=== PATIENT | male | born 1940 | race Caucasian/White ===

== ENCOUNTER → 2016-05-20 | Outpatient (CLI) | payer OTHER ==
[~2016-05-20] MED LIST: ACET-1311 PO; ALLO300T2 PO; ALT5 PO; ASPEC325 PO; EZET10TA63 PO; FEXO1TAB46 PO; FLUT0.0529 NAE; METO1TAB69 PO; NTRGSL/4 UT; PARO1TAB29 PO; PRLSR20 PO; SYN125 PO
--- NOTE | 2016-05-21 14:12 | PULMONARY FUNCTION TEST ---
FEV1/FVC notes obstructive ventilatory dysfunction 54%. FEV1, 52% predicted, notes moderately severe obstructive ventilatory disease. FEV1, bronchodilator testing notes significant reversibility. Total lung capacity within normal limits. Residual volume elevated at 156% notable for hyperinflation. DLCO and DLCO/VA ratio within normal limits. MTDD
== END | disposition home or self-care (01) ==
LOC: C.RC 11:01
PROVIDERS: ATTEND Internal Medicine Pulmonary Disease
DX: J44.9 Chronic obstructive pulmonary disease, unspecified (principal)

== ENCOUNTER → 2016-05-29 | Outpatient (CLI) | payer OTHER ==
--- NOTE | 2016-05-30 06:37 | SPLIT NIGHT TECHNICIAN REPORT ---
[facility] Split Night Polysomnogram - Apartment Maintenance Report Study date: 05/29/2016 Referring Physician: Mary Grace Harris PA-C, PA-C Name: ALEXANDRA LOCKE V Apartment Maintenance: Wendy Mueller [facility]. Date of : 1940 Height: 76 years, Height 5' 11" Sex: Male Weight: 249 lbs Age: 76 BMI: Medications: 34.72 Omeprazole, Jennifer, Allopurinol, Aspirin, Flonase, Nitroglycerin 0.4, Paroxeline, Ramipril, Synthriod, Toprol, Zetia Patient History 76 yr. old male here for a modified split night sleep study with ETC02. Patient is complaining of EDS despite use of CPAP daily. He is currently on a pressure of 6 CmH20. Parameters Monitored NPSG: E1-M2, E2-M1, Fp1-M2, Fp2-M1, F3-M2, F4-M2, F4-M1, C3-M2, C4-M2, C4-M1, O1-M2, O2-M2, O2-M1, T3-M2, T4-M1, P3-M2, P4-M1, CHIN1, CHIN2, HR, EKG, Legs, PFLOW, SNOR, FLOW, CFLOW, Tidal Volume, THOR, ABDO, SpO2, PLTH, CPRESS, ETCO2 Wave, ETCO2, pH SLEEP SUMMARY DATA DIAGNOSTIC TREATMENT Lights Out: 9:27:16 PM 12:35:46 AM Lights On: 12:31:46 AM 5:49:46 AM Total Recording Time (TRT): 184.5 min. 314.0 min. Total Sleep Time (TST): 151.5 min. 309.5 min. NREM Time: 151.5 min. 223.0 min. REM Time: 0.0 min. 86.5 min. Sleep Period Time (SPT): 158.0 min. 312.0 min. Sleep Efficiency (SE): 82 % 99 % Sleep Latency: 26.5 min. 2.0 min. Arousal Index: 18.2 12.4 PAP Treatment Levels: 4, 5, 6, 7, 8, 9, 10 * Optimal Pressure(s) SLEEP STAGING DATA DIAGNOSTIC TREATMENT Duration (min) TST % Duration (min) TST % Stage Wake: 33.0 min. -- 4.5 min. -- WASO: 6.5 min. -- 2.5 min. -- NREM: 151.5 min. 100 % 223.0 min. 72 % Stage N1: 17.0 min. 11 % 16.5 min. 5 % Stage N2: 111.0 min. 73 % 151.0 min. 49 % Stage N3: 23.5 min. 16 % 55.5 min. 18 % REM: 0.0 min. 0 % 86.5 min. 28 % POSITIONAL DATA Event Count Index Event Count Index Supine: 20 20.4 19 15.5 Supine NREM: 20 20.4 7 7.8 Supine REM: N/A N/A 12 31 Non-Supine: 1 0.6 4 0.8 Non-Supine NREM: 1 0.6 2 0.3 Non-Supine REM: N/A N/A 2 1.9 AROUSAL SUMMARY DATA: Event Count Index Event Count Index Apnea Arousals: 3 2.0 0 0.8 Hypopnea Arousals: 8 3.2 6 1.2 Snore Arousals: 18 7.1 17 3.3 PLM Arousals: 7 2.8 28 5.4 Non-Specific Arousals: 4 1.6 5 1.0 Total Arousals: 46 18.2 64 12.4 MYOCLONUS (PLM) Event Count Index Event Count Index PLM: 81 32.1 169 32.8 PLM AROUSAL: 7 2.8 28 5.4 PLM W/O AROUSAL 81 32.1 141 27.3 PLM W/RESP EVENT 1 0.0 3 0.0 MYOCLONUS (PLM) Event Count Index Event Count Index LM: 5 9.5 59 11.4 LM AROUSAL: 5 2.0 6 1.2 LM W/O AROUSAL LM W/RESP EVENT LM NON SPECIFIC 84 33.3 186 36.1 HEART RATE DATA DIAGNOSTIC TREATMENT Sleep (bpm): 54 50 REM (bpm): N/A 94 NREM (bpm): 94 94 Tachycardia Count: 0 0 Tachycardia Duration: 0.00 0 Bradycardia Count: 0 0 Bradycardia Duration: 0.00 0 DIAGNOSTIC PORTION TREATMENT PORTION RESPIRATORY DATA Event Count Index Event Count Index AHI: -- 7.9 -- 4.1 RDI: -- 8.3 -- 4 Obstructive Apnea: 5 2.0 3 0.6 Central Apnea: 0 0.0 1 0.2 Mixed Apnea: 0 0.0 0 0.0 Hypopnea: 15 5.9 17 3.3 RERA: 1 0.4 2 0.4 Total Apneas: 5 2.0 4 0.8 RESPIRATORY DATA REM NREM SLEEP REM NREM SLEEP Supine Position: Obstructive Apneas: N/A 4 4 3 0 3 Central Apneas: N/A 0 0 0 0 0 Mixed Apneas: N/A 0 0 0 0 0 Hypopneas: N/A 15 15 9 6 15 RERA N/A 1 1 0 1 1 Total Supine Events: N/A 20 20 12 7 19 Supine AHI: N/A 20.4 20.4 31 7.8 15.5 Supine RDI: N/A 21.4 21.4 30.6 9.1 16.4 REM NREM SLEEP REM NREM SLEEP Non-Supine Position: Obstructive Apneas: N/A 1 1 0 0 0 Central Apneas: N/A 0 0 0 1 1 Mixed Apneas: N/A 0 0 0 0 0 Hypopneas: N/A 0 0 2 0 2 RERA N/A 0 0 0 1 1 Total Supine Events: N/A 1 1 2 2 4 Supine AHI: N/A 0.6 0.6 1.9 0.3 0.8 Supine RDI: N/A 0.6 0.6 1.9 0.7 1.0 OXYGEN DESTAURATION DATA: Event Count Index Event Count Index REM Desaturations: N/A N/A 12 8.3 NREM Desaturations: 18 7.1 7 1.9 SNORE DATA DIAGNOSTIC TREATMENT Snore Time: 64.0 12:37:46 AM Snore TST%: 15 29 Snore Arousal Count: 18 17 Snore Arousal Index: 7.1 3.3 Desaturation Event Summary: Minimum %SpO2 Event Count Mean/Min/Max Duration(sec.) Desaturation Index % Time In Bed > 90 39 26.6 / 7.3 / 57.5 4.7 99.4 86 - 90 1 16.5 / 16.5 / 16.5 20.4 0.6 81 - 85 0 N/A 0.0 0.0 76 - 80 0 N/A 0.0 0.0 71 - 75 0 N/A 0.0 0.0 66 - 70 0 N/A 0.0 0.0 61 - 65 0 N/A 0.0 0.0 56 - 60 0 N/A 0.0 0.0 51 - 55 0 N/A 0.0 0.0 < 50 0 N/A 0.0 0.0 OXYGEN SATURATION DATA DIAGNOSTIC TREATMENT SpO2 Mean Sleep: 94 % 94 % SpO2 Mean REM: N/A % 94 % SpO2 Mean NREM: 94 % 94 % SpO2 Minimum Sleep: 89 % 87 % SpO2 Minimum REM: N/A % 87 % SpO2 Minimum NREM: 89 % 91 % Time Below 90% (TST): 0.1 1.1 Time Below 88% (TST): 0.0 0.3 Total REM NREM Awake <50% 0.0 min. 0.0 min. 0.0 min. 0.0 min. 51 - 60% 0.0 min. 0.0 min. 0.0 min. 0.0 min. 61 - 70% 0.0 min. 0.0 min. 0.0 min. 0.0 min. 71 - 80% 0.0 min. 0.0 min. 0.0 min. 0.0 min. 81 - 90% 2.9 min. 2.7 min. 0.3 min. 0.0 min. 91 - 100% 494.9 min. 83.9 min. 373.8 min. 37.2 min. Average 94 94 94 95 Minimum SpO2 87 87 89 91 Desaturation Event Index 4.7 8.3 4.0 3.2 # Desat. Events below 89% 3 3 N/A N/A Time(%) with Saturation below 89% 0.1 0.1 0.0 0.0 Time(min.) with Saturation below 89% 0.5 0.5 0.0 0.0 Recording Apartment Maintenance Comments: Mr. Locke slept in the left and supine positions. Cardiac arrhythmia- PVC's and frequebt PLMs noted. No bruxism noted. Snoring was noted and scored as a 4 on a scale of 0 through 5. (0=no snoring, 5=snoring loud enough to be heard through a closed door or down the jha way) At12:35 am ,Mr. Locke met modified Split Night criteria AHI >6 during the diagnostic portion of this study. CPAP was initiated at +4 CMH2O and up-titrated to an optimal level of +10 CMH2O Cflex 2,. A medium Brown and Paykel Simplus, was used during titration. Mr. Locke did not wake to use the restroom during the night . The final report will be interpreted and signed by a sleep physician. The completed physician report will then be placed in the patient medical record. Therapy Event: Therapy (cm H20) 0 4 5 6 7 8 9 10 Total Time at Pressure (min.) 184.5 18.5 98.3 6.5 46.6 105.4 21.6 17.0 TST at Pressure (min.) 151.5 16.5 97.3 6.5 45.6 104.9 21.6 17.0 # Periods 1 1 1 1 1 1 1 1 Sleep Onset (min.) 26.5 2.0 0.0 0.0 0.0 0.0 0.0 0.0 REM Onset (min.) N/A N/A 77.5 0.1 0.0 0.0 N/A N/A Sleep Efficiency % 82 89 99 100 97 99 100 100 Wakefulness (%) 17.9 10.8 1.0 0.0 2.1 0.5 0.0 0.0 Wakefulness (min.) 33.0 2.0 1.0 0.0 1.0 0.5 0.0 0.0 NREM 1 (%) 9.2 16.2 2.9 2.1 7.5 2.8 9.3 11.7 NREM 1 (min.) 17.0 3.0 2.9 0.1 3.5 3.0 2.0 2.0 NREM 2 (%) 60.2 72.9 64.6 0.0 0.0 37.3 90.7 88.3 NREM 2 (min.) 111.0 13.5 63.5 0.0 0.0 39.4 19.6 15.0 NREM 3 (%) 12.7 0.1 11.2 0.0 0.0 42.2 0.0 0.0 NREM 3 (min.) 23.5 0.0 11.0 0.0 0.0 44.5 0.0 0.0 REM (%) 0.0 0.0 20.3 97.9 90.3 17.1 0.0 0.0 REM (min.) 0.0 0.0 20.0 6.4 42.1 18.1 0.0 0.0 # Arousals 46 1 12 3 8 14 15 11 Arousal Index 18.2 3.6 7.4 27.5 10.5 8.0 41.7 38.7 # Snore 1,616 181 1,243 57 430 301 121 54 Snore Index 640.0 657.4 766.2 523.4 566.4 172.1 336.1 190.2 AHI 7.9 0.0 1.2 45.9 10.5 1.7 8.3 0.0 AHI Supine 20.4 N/A N/A 46.3 26.9 17.5 8.3 0.0 AHI Non-Supine 0.6 0.0 1.2 0.0 0.0 0.6 N/A 0.0 NREM AHI 7.9 0.0 0.0 0.0 17.1 2.1 8.3 0.0 REM AHI N/A N/A 6.0 46.9 10.0 0.0 N/A N/A RDI 8.3 0.0 1.2 45.9 11.9 1.7 11.1 0.0 # Obstructive 5 0 0 1 2 0 0 0 # Central Ap 0 0 0 0 0 1 0 0 # Mixed 0 0 0 0 0 0 0 0 # Hypopneas 15 0 2 4 6 2 3 0 RERAS 1 0 0 0 1 0 1 0 Total Respiratory Events 21 0 2 5 9 3 4 0 Time Below SpO2 89.00% (min.) 0.0 0.0 0.2 0.3 0.0 0.0 0.0 0.0 Mean NREM SpO2 (%) 94 93 94 96 95 94 94 95 Mean REM SpO2 (%) N/A N/A 93 93 94 96 N/A N/A Mean Sleep SpO2 (%) 94 93 94 93 94 94 94 95 Min NREM SpO2 (%) 89 92 91 96 92 91 91 92 Min REM SpO2 (%) N/A N/A 87 87 89 93 N/A N/A Position Supine (min.) 56.0 0.0 0.0 6.5 17.9 6.9 21.6 16.7 Position Non-supine (min.) 95.5 16.5 97.3 0.0 27.7 98.1 0.0 0.3 LM Index Sleep 41.6 0.0 54.2 36.7 31.6 41.2 63.9 59.9 LM Index NREM 41.6 0.0 61.3 0.0 34.3 45.6 63.9 59.9 LM Index REM N/A N/A 27.0 37.5 31.4 19.9 N/A N/A Mean Heart Rate (bpm) 54 51 51 49 48 50 48 48 Min Heart Rate (bpm) 47 50 43 47 43 45 45 45
--- NOTE | 2016-06-02 16:59 | POLYSOMNOGRAPH REPORT ---
CLINICAL DATA: 76-year-old male with BMI of 34.7 referred by Mary Grace Harris PA-C and Dr. Perdue for a modified split night study. He is on CPAP 6 cm of water pressure and is still having daytime sleepiness despite using his CPAP. SLEEP ARCHITECTURE: For the diagnostic portion of the study, total sleep period was 158 minutes. Total sleep time was 151.5 minutes, all non-REM sleep. Sleep latency was delayed at 26.5 minutes. Sleep efficiency was 82%. Arousal index was 18.2. Sleep consisted of stage N1 11%, N2 73%, N3 16%. For the treatment portion of this study, total sleep period was 312 minutes. Total sleep time was 309.5 minutes divided between 220 minutes of non-REM sleep and 87.5 minutes of REM sleep. Sleep latency was 2 minutes. Arousal index was 12.4. Sleep consisted of stage N1 5%, N2 49%, N3 18%, REM 28%. AROUSAL DATA: Prior to treatment, 46 arousals were recorded for an index of 18.2 per hour. Following treatment, 64 arousals were recorded for an index of 12.4 per hour. PLM DATA: Prior to treatment, 84 limb movements during sleep were noted for an index of 33.3 per hour. During treatment, 186 limb movements during sleep were noted for an index of 36.1 per hour. EKG: Heart rates ranged from 50-94 beats per minute. PVCs were noted. RESPIRATORY DATA: Prior to treatment, mild sleep apnea was documented. The AHI was 7.9. The RDI was 8.3. There were 5 obstructive apneic episodes and 15 hypopneic episodes. Following treatment, the mean AHI was 4.1. OXIMETRY DATA: Mild nocturnal hypoxemia was seen. Oxygen melissa was 87%. Mean saturation after treatment was 94%. PATIENT CARE ASSISTANT'S COMMENTS AND TREATMENT SUMMARY: The patient slept in the left and supine positions. Snoring was severe, rated 4 on a scale of 1-5. At 12:35 a.m. the patient met modified split night criteria. CPAP was started using a medium Brown & Intappkel Simplus mask. The patient was titrated up to his final pressure setting of 10 cm of water pressure, C-Flex setting #2. At his final pressure setting, he slept for 17 minutes with an AHI of 0. IMPRESSION: Obstructive sleep apnea/hypopnea corrected with CPAP 10 cm water pressure, C-Flex setting #2, Brown & Payeligio medium Simplus mask. RECOMMENDATIONS: The patient's CPAP should be increased to 10 cm of water pressure, C-Flex setting #2. He should be provided with the above noted face mask. He should be seen back in followup within 90 days to document efficacy and compliance. ADELA
== END | disposition home or self-care (01) ==
LOC: C.NEUR 20:00
PROVIDERS: ATTEND Internal Medicine Pulmonary Disease
DX: G47.33 Obstructive sleep apnea (adult) (pediatric) (principal)

== ENCOUNTER 2017-07-01 18:53 | Inpatient (IN) | payer OTHER ==
[~2017-07-01] VITALS: Ht 180.3 cm; Wt 111.4 kg
[~2017-07-01 18:53] MED LIST changes: +METO100T44 PO; -METO1TAB69 PO
[2017-07-01] MEDS ORDERED: SODIUM CHLORIDE 0.9% 1000ML 1,000 ML IV ONE (19:15)
--- NOTE | 2017-07-01 19:29 | EMERGENCY ROOM VISIT NOTE ---
History First contact with patient: 19:01 Chief Complaint: CARDIAC ASSESSMENT Stated Complaint: HEART PROBLEMS, DIZZINESS, History of Present Illness The patient is a 77 year old male who presents to the Emergency Room with complaints of syncopal episodes that have been going on for the last several months. Patient has brief episodes of shortness of breath where he also blacks out for a few seconds. He denies any headache or pain in his chest. He denies any lightheaded sensation. Patient has been wearing a Holter monitor for the last 3 weeks. He was told that he needs a pacemaker, and is scheduled to see a pesticide chemist next week. He became concerned today because he had 3 episodes within the last several hours. The patient has a history of coronary artery disease status post CABG. Review of Systems 10 system review performed and negative unless noted in HPI or below Past Medical/Surgical History Medical Problems: (1) History of hypertension (2) History of pneumonia (3) Symptomatic bradycardia Throat cancer Coronary artery disease Status post CABG Family History Cancer Heart disease Hypertension Lung disease Social History Smoking Status: Former Smoker Alcohol Use: occasionally Drug Use: none Marital Status: Housing Status: lives with significant other Occupation Status: unemployed Current/Historical Medications Scheduled Acetaminophen (Tylenol), 325 MG PO DIRECTED Allopurinol (Zyloprim), 300 MG PO HS Aspirin Enteric Coated (Ecotrin Or Generic), 81 MG PO DAILY Ezetimibe (Zetia), 10 MG PO HS Fexofenadine Hcl (Jennifer), 180 MG PO PRN Levothyroxine Sodium (Synthroid), 125 MCG PO DAILY Metoprolol Succ (Toprol Xl) (Toprol-Xl), 12.5 MG PO BID Nitroglycerin (Nitrostat), 0.4 MG UT PRN Omeprazole (Prilosec), 20 MG PO BID Paroxetine HCl (Paroxetine), 20 MG PO QAM Ramipril (Ramipril), 10 MG PO HS Scheduled PRN Fluticasone Propionate (Nasal) (Flonase Allergy Relief), 2 SPRAYS MARILYN DAILY PRN for CONGESTION Physical Exam Vital Signs Date Time Temp Pulse Resp B/P (MAP) Pulse Ox O2 Delivery O2 Flow Rate FiO2 07/01/17 21:05 58 20 97 07/01/17 21:01 190/80 07/01/17 20:35 59 20 97 07/01/17 20:31 170/78 07/01/17 20:05 62 21 97 07/01/17 20:00 64 20 171/77 97 Room Air 07/01/17 19:56 168/79 07/01/17 19:32 65 07/01/17 19:30 62 22 97 07/01/17 19:16 147/79 07/01/17 19:12 97 Room Air 07/01/17 19:12 97 Room Air 07/01/17 18:55 36.8 63 20 137/64 98 Room Air Physical Exam GENERAL: 77-year-old male, in no acute distress, nondiaphoretic, SKIN: The skin was without rashes, erythema, edema, or bruising. HEAD: Normocephalic atraumatic. MOUTH: Mucous membranes moist. NECK: Bilateral carotid bruit noted HEART: Bradycardic, irregular, systolic murmur heard best at the upper sternal border LUNGS: Clear to auscultation bilaterally without wheezes, rales or rhonchi. No accessory muscle use. ABDOMEN: Positive bowel sounds x 4.Soft, nontender, without organomegaly. No guarding or rebound tenderness. MUSCULOSKELETAL: No muscle atrophy, erythema, or edema noted. Strength 5/5 throughout. NEURO: Patient was alert and oriented to person place and time. Normal sensation to touch. No focal neurological deficits. Medical Decision & Procedures ER Provider Diagnostic Interpretation: cxr IMPRESSION: No acute cardiopulmonary abnormality. Electronically signed by: Joby Mccloud M.D. 07/01/2017 8:29 PM Dictated Date/Time: 07/01/2017 8:27 PM The status of this report is Signed. Draft = Not yet reviewed or approved by Radiologist. Signed = Reviewed and approved by Radiologist. <AttendingPhy></AttendingPhy> <FamilyPhy>David Giodrano D.O.</FamilyPhy> < PrimaryPhy>David Giordano D.O.</PrimaryPhy> <UnitNumber>[id number]</UnitNumber > <VisitNumber>[id number]</VisitNumber> <PatientName>ALEXANDRA PETERS V</ PatientName> <DateOfBirth>1940</DateOfBirth> <[facility]Location> < ServiceDate>07/01/17</ServiceDate> <MNE>ESINDI</MNE> <OrderingPhy>Tootie Alvarez PA-C</OrderingPhy> <OrderingPhyMNE>f rep ord dr shen</OrderingPhyMNE> < DictatingPhyMNE>f rep dict dr shen</DictatingPhyMNE> <CCListMNE>f rep ct mne</ CCListMNE> <AdmittingPhyMNE>f pt admit dr shen</AdmittingPhyMNE> <AttendingPhyMNE >f pt attend dr shen</AttendingPhyMNE> ct head w/o contrast IMPRESSION: There is no hemorrhage, mass effect, or evidence of acute territorial ischemia by CT criteria. Electronically signed by: Joby Mccloud M.D. 07/01/2017 8:00 PM Dictated Date/Time: 07/01/2017 7:58 PM The status of this report is Signed. Draft = Not yet reviewed or approved by Radiologist. Signed = Reviewed and approved by Radiologist. <AttendingPhy></AttendingPhy> <FamilyPhy>David Giordano D.O.</FamilyPhy> < PrimaryPhy>David Giordano D.O.</PrimaryPhy> <UnitNumber>[id number]</UnitNumber > <VisitNumber>[id number]</VisitNumber> <PatientName>ALEXANDRA PETERS V</ PatientName> <DateOfBirth>1940</DateOfBirth> <[facility]Location> < ServiceDate>07/01/17</ServiceDate> <MNE>ESINDI</MNE> <OrderingPhy>Tootie Alvarez PA-C</OrderingPhy> <OrderingPhyMNE>f rep ord dr shen</OrderingPhyMNE> < DictatingPhyMNE>f rep dict dr shen</DictatingPhyMNE> <CCListMNE>f rep ct mne</ CCListMNE> <AdmittingPhyMNE>f pt admit dr shen</AdmittingPhyMNE> <AttendingPhyMNE >f pt attend dr shen</AttendingPhyMNE> Laboratory Results 07/01/17 19:35 Red Blood Count 4.07, Mean Corpuscular Volume 95.1, Mean Corpuscular Hemoglobin 32.4, Mean Corpuscular Hemoglobin Concent 34.1, Mean Platelet Volume 9.5, Neutrophils (%) (Auto) 54.5, Lymphocytes (%) (Auto) 24.5, Monocytes (%) (Auto) 9.5, Eosinophils (%) (Auto) 10.6, Basophils (%) (Auto) 0.7, Neutrophils # (Auto ) 4.46, Lymphocytes # (Auto) 2.01, Monocytes # (Auto) 0.78, Eosinophils # (Auto ) 0.87, Basophils # (Auto) 0.06 07/01/17 19:35 Test 07/01/17 19:35 White Blood Count 8.20 K/uL (4.8-10.8) Red Blood Count 4.07 M/uL (4.7-6.1) Hemoglobin 13.2 g/dL (14.0-18.0) Hematocrit 38.7 % (42-52) Mean Corpuscular Volume 95.1 fL (80-100) Mean Corpuscular Hemoglobin 32.4 pg (25-34) Mean Corpuscular Hemoglobin Concent 34.1 g/dl (32-36) Platelet Count 287 K/uL (130-400) Mean Platelet Volume 9.5 fL (7.4-10.4) Neutrophils (%) (Auto) 54.5 % Lymphocytes (%) (Auto) 24.5 % Monocytes (%) (Auto) 9.5 % Eosinophils (%) (Auto) 10.6 % Basophils (%) (Auto) 0.7 % Neutrophils # (Auto) 4.46 K/uL (1.4-6.5) Lymphocytes # (Auto) 2.01 K/uL (1.2-3.4) Monocytes # (Auto) 0.78 K/uL (0.11-0.59) Eosinophils # (Auto) 0.87 K/uL (0-0.5) Basophils # (Auto) 0.06 K/uL (0-0.2) RDW Standard Deviation 50.3 fL (36.4-46.3) RDW Coefficient of Variation 14.5 % (11.5-14.5) Immature Granulocyte % (Auto) 0.2 % Immature Granulocyte # (Auto) 0.02 K/uL (0.00-0.02) Prothrombin Time 10.3 SECONDS (9.0-12.0) Prothromb Time International Ratio 1.0 (0.9-1.1) Activated Partial Thromboplast Time 27.9 SECONDS (21.0-31.0) Partial Thromboplastin Ratio 1.1 Anion Gap 7.0 mmol/L (3-11) Est Creatinine Clear Calc Drug Dose 67.5 ml/min Estimated GFR () 70.3 Estimated GFR (Non- 60.6 BUN/Creatinine Ratio 17.6 (10-20) Calcium Level 8.6 mg/dl (8.5-10.1) Magnesium Level 2.2 mg/dl (1.8-2.4) Total Bilirubin 0.2 mg/dl (0.2-1) Aspartate Amino Transf (AST/SGOT) 25 U/L (15-37) Alanine Aminotransferase (ALT/SGPT) 31 U/L (12-78) Alkaline Phosphatase 85 U/L (45-117) Total Creatine Kinase 76 U/L (39-308) Creatine Kinase MB 1.1 ng/ml (0.5-3.6) Creatine Kinase MB Ratio 1.4 (0-3.0) Troponin I < 0.015 ng/ml (0-0.045) Total Protein 7.5 gm/dl (6.4-8.2) Albumin 3.6 gm/dl (3.4-5.0) Globulin 3.9 gm/dl (2.5-4.0) Albumin/Globulin Ratio 0.9 (0.9-2) Thyroid Stimulating Hormone (TSH) 0.570 uIu/ml (0.300-4.500) Medications Administered Medications (Trade) Dose Ordered Sig/Chuck Route Start Time Stop Time Status Last Admin Dose Admin Sodium Chloride 1,000 ml @ 150 mls/hr Q6H40M ONCE IV 07/01/17 19:15 07/02/17 01:54 07/01/17 19:47 150 MLS/HR ECG Per My Interpretation Indication: syncope Rate (beats per minute): 65 Rhythm: sinus bradycardia ED Course Patient was seen and examined Vital signs including blood pressure were reviewed medications list was verified with patient Labs were obtained, and a saline lock was established The patient was put on a monitor He was hydrated with normal saline at 150 cc/h The patient was also seen and examined by my supervising physician who is in agreement with my plan The patient was reassessed as he was noted to have a pause on the monitor. He was asymptomatic. The case [facility] with [facility] the patient for further workup and treatment Medical Decision Differential diagnosis: Cardiogenic syncope, neurogenic syncope, dehydration, infectious etiology This patient is a 77-year-old male presents to the emergency department with frequent syncopal episodes lasting a few seconds particularly today. On exam, his heart rate was slow and irregular. He knows that he needs a pacemaker, and is scheduled to see a pesticide chemist next week. His EKG shows sinus bradycardia with PVCs. The patient's troponin is negative. No significant electrolyte abnormalities. Chest x-ray and CT of the head with no acute findings. I believe the etiology of his symptoms is likely due to an arrhythmia. The patient had an approximately 3 second pause on the monitor. [facility] agreed to admit the patient for further workup and treatment. This chart was completed in part utilizing [employer] Speech Voice Recognition software. Attempts were made to minimize the grammatical errors, random word insertions, pronoun errors and incomplete sentences. Any formal questions or concerns about the content, text or information contained within the body of this dictation should be directly addressed to the provider for clarification. Medication Reconcilliation Current Medication List: was personally reviewed by me Blood Pressure Screening Patient's blood pressure: Elevated blood pressure Blood pressure disposition: Did not require urgent referral Impression Primary Impression: Syncope Departure Information Referrals David Giordano D.O. (PCP) Patient Instructions My [facility]
[2017-07-01 19:54] LABS: BASO % 0.7 %; BASO ABS # 0.06 K/uL (0-0.2); EOS % 10.6 %; EOS ABS # 0.87 K/uL (0-0.5); HEMATOCRIT 38.7 % (42-52); HEMOGLOBIN 13.2 g/dL (14.0-18.0); IG# 0.02 K/uL (0.00-0.02); LYMPH % 24.5 %; LYMPH ABS # 2.01 K/uL (1.2-3.4); MEAN CELL VOLUME 95.1 fL (80-100); MEAN CORPUSCULAR HEMOGLOBIN 32.4 pg (25-34); MEAN CORPUSCULAR HGB CONC 34.1 g/dl (32-36); MEAN PLATELET VOLUME 9.5 fL (7.4-10.4); MONO % 9.5 %; MONO ABS # 0.78 K/uL (0.11-0.59); NEUT % 54.5 %; NEUT ABS # 4.46 K/uL (1.4-6.5); PLATELET COUNT 287 K/uL (130-400); RED CELL DISTRIBUTION WIDTH CV 14.5 % (11.5-14.5); RED CELL DISTRIBUTION WIDTH SD 50.3 fL (36.4-46.3)
--- NOTE | 2017-07-01 20:02 | DIAGNOSTIC IMAGING REPORT ---
CT SCAN OF THE BRAIN WITHOUT IV CONTRAST CLINICAL HISTORY: Syncope. Dizziness. COMPARISON STUDY: No priors. TECHNIQUE: Unenhanced axial CT scan of the brain is performed from the vertex to the skull base. A dose lowering technique was utilized adhering to the principles of ALARA. CT DOSE: 614.27 mGy.cm FINDINGS: Brain parenchyma: There are age-related involutional changes noting mild subcortical and periventricular microangiopathic change. There is no hemorrhage, mass effect, or evidence of acute territorial ischemia by CT criteria. Conrad-white matter is preserved. No extra-axial fluid collection is seen. Ventricles, sulci, cisterns: Prominent secondary to involutional change. Intracranial vasculature: There is atherosclerotic calcification of the cavernous carotid arteries. Calvarium: Unremarkable. Sinuses and mastoids: Mild mucosal thickening is seen within the sphenoid sinuses. The remaining visualized paranasal sinuses are clear. There is a right mastoid effusion. The left mastoid air cells are well pneumatized. Orbits: The bony orbits are grossly intact. There are bilateral ocular lens implants. IMPRESSION: There is no hemorrhage, mass effect, or evidence of acute territorial ischemia by CT criteria. Electronically signed by: Joby Mccloud M.D. 07/01/2017 8:00 PM Dictated Date/Time: 07/01/2017 7:58 PM
[2017-07-01 20:05] LABS: PTT PATIENT 27.9 SECONDS (21.0-31.0)
[2017-07-01 20:12] LABS: ALBUMIN 3.6 gm/dl (3.4-5.0); ALT/SGPT 31 U/L (12-78); BLOOD UREA NITROGEN 20 mg/dl (7-18); CALCIUM 8.6 mg/dl (8.5-10.1); CARBON DIOXIDE 25 mmol/L (21-32); CREATININE 1.15 mg/dl (0.60-1.40); GLUCOSE 73 mg/dl (70-99); POTASSIUM 4.4 mmol/L (3.5-5.1); SODIUM 136 mmol/L (136-145)
[2017-07-01 20:22] LABS: ALKALINE PHOSPHATASE 85 U/L (45-117); AST/SGOT 25 U/L (15-37); CKMB 1.1 ng/ml (0.5-3.6); TOTAL PROTEIN 7.5 gm/dl (6.4-8.2)
--- NOTE | 2017-07-01 20:30 | DIAGNOSTIC IMAGING REPORT ---
SINGLE VIEW CHEST CLINICAL HISTORY: Syncope. FINDINGS: An AP, portable, upright chest radiograph is compared to study dated 03/27/2016 and correlated with chest CT dated 03/28/2016. The examination is degraded by portable technique and apical lordotic positioning. The patient is status post midline sternotomy. The heart is top normal for projection and there is atherosclerotic calcification of the thoracic aorta. The pulmonary vasculature is noncongested. Chronic interstitial thickening is similar to previous. A calcified granuloma is again seen in the right lower lung. There is no airspace consolidation or large pleural effusion. No pneumothorax is seen. The skeletal structures are osteopenic. The bony thorax is grossly intact. IMPRESSION: No acute cardiopulmonary abnormality. Electronically signed by: Joby Mccloud M.D. 07/01/2017 8:29 PM Dictated Date/Time: 07/01/2017 8:27 PM
[2017-07-01] MEDS ORDERED: FLUT0.15 NAE (21:13)
[2017-07-01] MEDS ORDERED: ASPI81TA21 PO (21:13)
[2017-07-01] MEDS ORDERED: METO25TA3 PO (21:13)
[2017-07-01] MEDS ORDERED: PARO20TA3 PO (21:13)
[2017-07-01] MEDS ORDERED: RAMI10CA PO (21:13)
[2017-07-01] MEDS ORDERED: LEVO125T72 PO (21:13)
[2017-07-01] MEDS ORDERED: ONDANSETRON INJ 2 MG/ML 2 ML VIAL IV PRN (22:00)
[2017-07-01] MEDS ORDERED: ACETAMINOPHEN 325 MG TAB PO PRN (22:00)
[2017-07-01] MEDS ORDERED: FEXO1TAB49 PO (22:04)
[2017-07-01] MEDS ORDERED: IPRASOL4 INH (22:04)
[2017-07-01 22:34] VITALS: BP 174/79; PULSE 60; TEMP 37.2; O2SAT 96; Ht 180.3 cm; Wt 111.4 kg
--- NOTE | 2017-07-01 22:57 | History and Physical ---
History & Physical Date & Time of Service: Jul 01, 2017 ~ 21:30 Chief Complaint: Lightheaded, Dizzy, Passed Out Primary Care Physician: David Giordano D.O. History of Present Illness 77 tear old male who presents to the ED with lightheadedness, dizziness, and syncopal events x 2 today. Patient reports he has been having these episodes for the past year. 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 Patient is scheduled to see EP next week. Today he had two syncopal events at home which he reports is the most he has had in one day. He reports he frequently will feel lightheaded and dizzy and sometimes will pass out for a few seconds. He has never fallen to the floor. He denies chest pain, palpitations, and shortness of breath. No diaphoresis or nausea. He denies fever and chills. No abdominal pain, vomiting, or diarrhea. He denies urinary symptoms. In the ED, patient had sinus bradycardia and did have one pause however he was asymptomatic. BP is stable. Labs are unremarkable. Past Medical/Surgical History Medical Problems: (1) CAD (coronary artery disease) Permanent Comment: 1995 - CABG x 2 Status: Chronic (2) COPD (chronic obstructive pulmonary disease) Status: Chronic (3) Dyslipidemia Status: Chronic (4) GERD (gastroesophageal reflux disease) Status: Chronic (5) Gout Status: Chronic (6) HTN (hypertension) Status: Chronic (7) Hypothyroidism Status: Chronic (8) Laryngeal cancer Permanent Comment: s/p radiation ~ 30 years ago Status: Chronic (9) JAIME on CPAP Status: Chronic Surgical Problems: (1) H/O repair of right rotator cuff Status: Chronic (2) History of cataract surgery Status: Chronic Family History non contributory due to patient's advanced age Social History Smoking Status: Former Smoker Alcohol Use: occasionally Marital Status: Housing status: lives with family Immunizations History of Influenza Vaccine: Yes Influenza Vaccine Date: Mar 06, 2017 History of Tetanus Vaccine?: Yes Tetanus Immunization Date: Dec 25, 2014 History of Pneumococcal: Yes Pneumococcal Date: Apr 25, 2016 Allergies Coded Allergies: Atorvastatin (Unverified Adverse Reaction, Unknown, stiffness, 07/01/17) Yellow Dye (Verified Adverse Reaction, Unknown, vomitiing, 07/01/17) Home Medications Scheduled Acetaminophen (Tylenol), 325 MG PO DIRECTED Allopurinol (Zyloprim), 300 MG PO HS Aspirin Enteric Coated (Ecotrin Or Generic), 81 MG PO DAILY Ezetimibe (Zetia), 10 MG PO HS Levothyroxine Sodium (Synthroid), 125 MCG PO DAILY Metoprolol Succ (Toprol Xl) (Toprol-Xl), 12.5 MG PO HS Nitroglycerin (Nitrostat), 0.4 MG UT PRN Omeprazole (Prilosec), 20 MG PO BID Paroxetine HCl (Paroxetine), 20 MG PO QAM Ramipril (Ramipril), 10 MG PO HS Scheduled PRN Fexofenadine Hcl (Jennifer Allergy), 1 TAB PO DAILY PRN for Allergic Reaction Fluticasone Propionate (Nasal) (Flonase Allergy Relief), 2 SPRAYS MARILYN DAILY PRN for CONGESTION Ipratropium-Albuterol (Duoneb), 1 TREATMENT INH Q4H PRN for SOB/Wheezing Review of Systems ROS per HPI, all other systems reviewed and negative Physical Exam Vital Signs Date Time Temp Pulse Resp B/P (MAP) Pulse Ox O2 Delivery O2 Flow Rate FiO2 07/01/17 22:19 83 18 169/60 96 07/01/17 21:05 58 20 97 07/01/17 21:01 190/80 07/01/17 20:35 59 20 97 07/01/17 20:31 170/78 07/01/17 20:05 62 21 97 07/01/17 20:00 64 20 171/77 97 Room Air 07/01/17 19:56 168/79 07/01/17 19:32 65 07/01/17 19:30 62 22 97 07/01/17 19:16 147/79 07/01/17 19:12 97 Room Air 07/01/17 19:12 97 Room Air 07/01/17 18:55 36.8 63 20 137/64 98 Room Air General Appearance: WD/WN, no apparent distress Head: normocephalic, atraumatic Eyes: normal inspection, EOMI, sclerae normal ENT: hearing grossly normal, + muffled/hoarse voice (chronic), + pertinent finding (mucous membranes moist) Neck: supple, no JVD, trachea midline Respiratory/Chest: lungs clear, normal breath sounds, no respiratory distress Cardiovascular: regular rate, rhythm, no edema, normal peripheral pulses Abdomen/GI: normal bowel sounds, non tender, soft, no organomegaly Extremities/Musculoskelatal: normal inspection, no calf tenderness, normal capillary refill Neurologic/Psych: no motor/sensory deficits, alert, normal mood/affect, oriented x 3 Skin: normal color, warm/dry Diagnostics Laboratory Results Results Past 24 Hours Test 07/01/17 19:35 Range/Units White Blood Count 8.20 4.8-10.8 K/uL Red Blood Count 4.07 4.7-6.1 M/uL Hemoglobin 13.2 14.0-18.0 g/dL Hematocrit 38.7 42-52 % Mean Corpuscular Volume 95.1 80-100 fL Mean Corpuscular Hemoglobin 32.4 25-34 pg Mean Corpuscular Hemoglobin Concent 34.1 32-36 g/dl Platelet Count 287 130-400 K/uL Mean Platelet Volume 9.5 7.4-10.4 fL Neutrophils (%) (Auto) 54.5 % Lymphocytes (%) (Auto) 24.5 % Monocytes (%) (Auto) 9.5 % Eosinophils (%) (Auto) 10.6 % Basophils (%) (Auto) 0.7 % Neutrophils # (Auto) 4.46 1.4-6.5 K/uL Lymphocytes # (Auto) 2.01 1.2-3.4 K/uL Monocytes # (Auto) 0.78 0.11-0.59 K/uL Eosinophils # (Auto) 0.87 0-0.5 K/uL Basophils # (Auto) 0.06 0-0.2 K/uL RDW Standard Deviation 50.3 36.4-46.3 fL RDW Coefficient of Variation 14.5 11.5-14.5 % Immature Granulocyte % (Auto) 0.2 % Immature Granulocyte # (Auto) 0.02 0.00-0.02 K/uL Prothrombin Time 10.3 9.0-12.0 SECONDS Prothromb Time International Ratio 1.0 0.9-1.1 Activated Partial Thromboplast Time 27.9 21.0-31.0 SECONDS Partial Thromboplastin Ratio 1.1 Sodium Level 136 136-145 mmol/L Potassium Level 4.4 3.5-5.1 mmol/L Chloride Level 104 98-107 mmol/L Carbon Dioxide Level 25 21-32 mmol/L Anion Gap 7.0 3-11 mmol/L Blood Urea Nitrogen 20 7-18 mg/dl Creatinine 1.15 0.60-1.40 mg/dl Est Creatinine Clear Calc Drug Dose 67.5 ml/min Estimated GFR () 70.3 Estimated GFR (Non- 60.6 BUN/Creatinine Ratio 17.6 10-20 Random Glucose 73 70-99 mg/dl Calcium Level 8.6 8.5-10.1 mg/dl Magnesium Level 2.2 1.8-2.4 mg/dl Total Bilirubin 0.2 0.2-1 mg/dl Aspartate Amino Transf (AST/SGOT) 25 15-37 U/L Alanine Aminotransferase (ALT/SGPT) 31 12-78 U/L Alkaline Phosphatase 85 45-117 U/L Total Creatine Kinase 76 39-308 U/L Creatine Kinase MB 1.1 0.5-3.6 ng/ml Creatine Kinase MB Ratio 1.4 0-3.0 Troponin I < 0.015 0-0.045 ng/ml Total Protein 7.5 6.4-8.2 gm/dl Albumin 3.6 3.4-5.0 gm/dl Globulin 3.9 2.5-4.0 gm/dl Albumin/Globulin Ratio 0.9 0.9-2 Thyroid Stimulating Hormone (TSH) 0.570 0.300-4.500 uIu/ml Diagnostic Radiology HEAD CT IMPRESSION: There is no hemorrhage, mass effect, or evidence of acute territorial ischemia by CT criteria. CXR IMPRESSION: No acute cardiopulmonary abnormality. Impression Assessment and Plan SYMPTOMATIC BRADYCARDIA - admit to tele - patient presenting with lightheadedness, dizziness, and syncope x 2 - has had a work up as an outpatient 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 - EKG shows sinus bradycardia with PVC; did have one pause however was asymptomatic - will place pacer pads empirically - labs unremarkable, BP stable - hold beta liliana - NPO after midnight for likely pacemaker - case discussed with Dr. Jerry HX CAD - stable, no reports of chest pain - continue ASA and Zetia - holding beta liliana due to bradycardia / pauses HTN - BP elevated however did not have Ramipril yet - will give home dose of Ramipril and reassess - holding metoprolol as above HYPOTHYROIDISM - TSH WNL - continue levothyroxine GERD - continue PPI JAIME - CPAP as per home settings DVT PROPHYLAXIS - SCDs in light of likely invasive procedure tomorrow DISPO - In my clinical judgment this beneficiary meets acute admission criteria, established by [facility], that includes being hospitalized through two midnights. ADDENDUM: I have seen and examined the patient above and discussed with the provider above. I agree with the assessment and plan as stated. Kyle, DO Resuscitation Status VTE Prophylaxis Will order VTE Prophylaxis: Yes
[2017-07-02] VITALS (10 sets, daily range): BP systolic 117–151; BP diastolic 45–79; PULSE 46–72; TEMP 36.5–37.2; O2SAT 92–97
[2017-07-02] MEDS ORDERED: ENALAPRIL MALEATE 10 MG TAB PO ONE (00:32)
[2017-07-02] MEDS: LEVOTHYROXINE 125 MCG TAB PO SCH ×2 (05:48→05:51)
[2017-07-02 06:54] LABS: HEMATOCRIT 36.5 % (42-52); HEMOGLOBIN 12.1 g/dL (14.0-18.0); MEAN CELL VOLUME 95.5 fL (80-100); MEAN CORPUSCULAR HEMOGLOBIN 31.7 pg (25-34); MEAN CORPUSCULAR HGB CONC 33.2 g/dl (32-36); MEAN PLATELET VOLUME 9.4 fL (7.4-10.4); PLATELET COUNT 258 K/uL (130-400); RED CELL DISTRIBUTION WIDTH CV 14.7 % (11.5-14.5); RED CELL DISTRIBUTION WIDTH SD 51.2 fL (36.4-46.3)
[2017-07-02 07:33] LABS: CALCIUM 8.6 mg/dl (8.5-10.1); CREATININE 1.1 mg/dl (0.60-1.40); POTASSIUM 4.5 mmol/L (3.5-5.1)
[2017-07-02] MEDS: PAROXETINE 20 MG TAB PO SCH (09:00)
[2017-07-02] MEDS: PANTOprazole SOD 40 MG TAB PO SCH ×2 (09:00→19:27)
[2017-07-02] MEDS: ASPIRIN 81 MG ECTAB PO SCH (09:00)
--- NOTE | 2017-07-02 09:26 | Cardiology Consultation ---
Cardiology Consultation Date of Consultation: Jul 02, 2017. Requesting Physician: Dr. Jerry Reason for Consultation: Sinus arrest with syncope Pt evaluation today including: conversation w/ patient, conversation w/ family , physical exam History of Present Illness This is a very pleasant 77-year-old gentleman who has a history of coronary disease including bypass surgery in 1995 in [place]. Following his bypass surgery he had a stress echo in 2008 with no evidence of ischemia, he had an echocardiogram 2011 showing normal left ventricular function with left ventricular hypertrophy. He also has a history of hypertension, hyperlipidemia and laryngeal cancer although he can speak with a hoarse voice. He has hypothyroidism and sleep apnea. He has been having syncopal episodes for several months as well as brief episodes of shortness of breath. The shortness of breath and the syncope seem to occur at the same time. He wore a event recorder and had bradycardia observed and was scheduled to see a [facility] career services manager, however he presented to the emergency room having recurrent syncope. The episodes are brief, however he seems to lose consciousness completely. Following admission he was observed to have multiple sinus pauses, one this morning as long as 5.9 seconds. He does take metoprolol succinate 12.5 mg in the evening, the last dose was June 30, 2017. Past Medical/Surgical History (1) Laryngeal cancer (2) Hypothyroidism (3) Gout (4) CAD (coronary artery disease) (5) JAIME on CPAP (6) Dyslipidemia (7) HTN (hypertension) (8) GERD (gastroesophageal reflux disease) (9) History of cataract surgery (10) H/O repair of right rotator cuff Family History Cancer Heart disease Hypertension Lung disease Social History Smoking Status: Former Smoker History of Alcohol Use: Yes (1-2 PER WEEK-USUALLY [place]) Review of Systems Constitutional: No fever, No weight loss, No weakness Respiratory: + shortness of breath, No cough, No wheezing, No dyspnea on exertion Cardiac: + see HPI, + problem reported (Syncope), No chest pain, No orthopnea, No PND, No edema, No palpitations Abdomen: No pain, No nausea, No vomiting, No diarrhea, No GI bleeding Male : No urinary frequency, No nocturia more than once/night, No slowing stream, No sexual dysfunction Neurologic: No paralysis, No weakness, No numbness/tingling, No balance problems Heme: No abnormal bleeding/bruising, No clotting problems Endo: No fatigue Skin: No problem reported All Other Systems: Reviewed and Negative Allergies Coded Allergies: Atorvastatin (Unverified Adverse Reaction, Unknown, stiffness, 07/01/17) Yellow Dye (Verified Adverse Reaction, Unknown, vomitiing, 07/01/17) Medications Current Inpatient Medications Medications (Trade) Dose Ordered Sig/Chuck Route Start Time Stop Time Status Last Admin Dose Admin Acetaminophen (Tylenol Tab) 650 mg Q4H PRN PO 07/01/17 22:00 07/31/17 21:59 Ondansetron HCl (Zofran Inj) 4 mg Q6H PRN IV 07/01/17 22:00 07/31/17 21:59 Allopurinol (Zyloprim Tab) 300 mg HS PO 07/02/17 21:00 08/01/17 20:59 Aspirin (Ecotrin Tab) 81 mg DAILY PO 07/02/17 09:00 08/01/17 08:59 EZETIMIBE (Zetia Tab) 10 mg HS PO 07/02/17 21:00 08/01/17 20:59 Levothyroxine Sodium (Synthroid Tab) 125 mcg DAILYBB PO 07/02/17 06:00 08/01/17 05:59 07/02/17 05:51 125 MCG Paroxetine HCl (pAXil TAB) 20 mg QAM PO 07/02/17 09:00 08/01/17 08:59 Pantoprazole Sodium (Protonix Tab) 40 mg BID PO 07/02/17 09:00 08/01/17 08:59 Enalapril Maleate (Vasotec Tab) 40 mg HS PO 07/02/17 21:00 08/01/17 20:59 Physical Exam Vital Signs Past 12 Hours Date Time Temp Pulse Resp B/P (MAP) Pulse Ox O2 Delivery O2 Flow Rate FiO2 07/02/17 07:29 36.6 49 18 133/60 (84) 95 Room Air 07/02/17 04:00 95 CPAP 07/02/17 03:47 36.5 46 16 123/45 (71) 95 BiPAP 07/02/17 00:02 64 97 07/02/17 00:00 CPAP 07/01/17 22:34 37.2 60 17 174/79 96 Room Air 07/01/17 22:19 83 18 169/60 96 Constitutional: General Apperance: heathly-appearing Level of Distress: NAD Psychiatric: Mental Status: active & alert Head: normocephalic Eyes: EOM: EOMI ENMT: normal ENT inspection, hearing grossly normal Neck: supple, no masses Lungs: Respiratory effort: no dyspnea, good air movement Auscultation: breath sounds normal, no wheezing Cardiovascular: Heart Auscultation: RRR, no murmurs, no rubs, no gallops, bradycardia, pertinent finding (Frequent premature beats) Peripheral Pulses: Bruits: none appreciated Abdomen: Bowel Sounds: normal Inspection & Palpation: soft, no tenderness, guarding & rebound, no masses Musculoskeletal: normal strength (5/5 throughout) Extremities: no edema Neurologic: Cranial Nerves: grossly intact Sensation: grossly intact Data Laboratory Results: Last 24 Hours Test 07/01/17 19:35 07/02/17 06:36 07/02/17 07:26 White Blood Count 8.20 K/uL 6.80 K/uL Red Blood Count 4.07 M/uL 3.82 M/uL Hemoglobin 13.2 g/dL 12.1 g/dL Hematocrit 38.7 % 36.5 % Mean Corpuscular Volume 95.1 fL 95.5 fL Mean Corpuscular Hemoglobin 32.4 pg 31.7 pg Mean Corpuscular Hemoglobin Concent 34.1 g/dl 33.2 g/dl Platelet Count 287 K/uL 258 K/uL Mean Platelet Volume 9.5 fL 9.4 fL Neutrophils (%) (Auto) 54.5 % Lymphocytes (%) (Auto) 24.5 % Monocytes (%) (Auto) 9.5 % Eosinophils (%) (Auto) 10.6 % Basophils (%) (Auto) 0.7 % Neutrophils # (Auto) 4.46 K/uL Lymphocytes # (Auto) 2.01 K/uL Monocytes # (Auto) 0.78 K/uL Eosinophils # (Auto) 0.87 K/uL Basophils # (Auto) 0.06 K/uL RDW Standard Deviation 50.3 fL 51.2 fL RDW Coefficient of Variation 14.5 % 14.7 % Immature Granulocyte % (Auto) 0.2 % Immature Granulocyte # (Auto) 0.02 K/uL Prothrombin Time 10.3 SECONDS Prothromb Time International Ratio 1.0 Activated Partial Thromboplast Time 27.9 SECONDS Partial Thromboplastin Ratio 1.1 Sodium Level 136 mmol/L 139 mmol/L Potassium Level 4.4 mmol/L 4.5 mmol/L Chloride Level 104 mmol/L 106 mmol/L Carbon Dioxide Level 25 mmol/L 27 mmol/L Anion Gap 7.0 mmol/L 6.0 mmol/L Blood Urea Nitrogen 20 mg/dl 19 mg/dl Creatinine 1.15 mg/dl 1.10 mg/dl Est Creatinine Clear Calc Drug Dose 67.5 ml/min 70.4 ml/min Estimated GFR () 70.3 74.1 Estimated GFR (Non- 60.6 64.0 BUN/Creatinine Ratio 17.6 17.4 Random Glucose 73 mg/dl 97 mg/dl Calcium Level 8.6 mg/dl 8.6 mg/dl Magnesium Level 2.2 mg/dl Total Bilirubin 0.2 mg/dl Aspartate Amino Transf (AST/SGOT) 25 U/L Alanine Aminotransferase (ALT/SGPT) 31 U/L Alkaline Phosphatase 85 U/L Total Creatine Kinase 76 U/L Creatine Kinase MB 1.1 ng/ml Creatine Kinase MB Ratio 1.4 Troponin I < 0.015 ng/ml Total Protein 7.5 gm/dl Albumin 3.6 gm/dl Globulin 3.9 gm/dl Albumin/Globulin Ratio 0.9 Thyroid Stimulating Hormone (TSH) 0.570 uIu/ml Bedside Glucose 86 mg/dl Imaging: Chest x-ray unremarkable EKG: Sinus bradycardia, premature beats. Probable LVH with ST-T abnormalities. Telemetry reviewed: Sinus rhythm with frequent premature beats, frequent sinus pauses. This morning a pause of 5.9 seconds recorded with symptoms. Assessment & Plan 1. Sinus node dysfunction: He clearly has sinus node dysfunction with symptoms of syncope and a documented pause of 5.9 seconds this morning. His metoprolol succinate was held last evening he is therefore 36 hours off of metoprolol, with a low dose and now 36 hours post dose this should not be causing his sinus node dysfunction. He will require pacemaker implantation. I reviewed the indications, procedure, risks and alternatives with him and his including risks and alternatives to conscious sedation. They understand and he agrees to proceed. Consent obtained. We will plan on pacemaker implantation today. 2. Hypertension: He had quite significant hypertension when he arrived, however this morning his blood pressure has been good. 3. Coronary disease: He has a long history of coronary disease however it has been symptomatically stable and it should not be associated with sinus arrhythmias. He should be on a beta-liliana for his frequent ectopy and his coronary artery disease, once his pacemaker in place we should be able to restart beta-blockade. Thank you for allowing me to participate in his care.
--- NOTE | 2017-07-02 10:37 | Cardiology Consultation ---
Cardiology Consultation Date of Consultation: Jul 02, 2017 Requesting Physician: Jeanine Attending Veneer Stock Grader: Claritza (Wilman Schmitz PA-C) History of Present Illness Patient seen and evaluated earlier this morning. Mr. Clinton Locke is a very pleasant 77 year old male who is being seen at the request of ALBINO Palacio. Reason for consultation is symptomatic bradycardia. Mr. Locke has been experiencing intermittent episodes of lightheadedness, dizziness, near syncope over the last year. He describes feeling "woozy" with symptoms lasting seconds to several minutes with spontaneous resolution. He was recently evaluated by Benjamin and underwent Zio monitoring demonstrating sinus node dysfunction, evidence of Tachy-Arthur Syndrome for which he was referred to Electrophysiology however due to progressive symptoms he presented to the [facility] ER. In the ER he was noted to have sinus bradycardia with one mild pause. Toprol XL 12.5 mg/day (Taken in the evening) has been held. Overnight continuous telemetry monitoring showed multiple pauses up to 5.9 seconds in duration. (Wilman Schmitz PA-C) Past Medical/Surgical History Problem List: ASCVD Status [place] CAB[place]2 [place] [address] [facility] Hypertension Dyslipidemia with prior statin intolerance Obesity History of tobacco abuse History of laryngeal cancer status post surgery, radiation therapy - chronic hoarseness Hypothyroidism Sleep apnea. Hospitalization in May 2011 for pneumonia and found to have mildly ischemic EKG. In July 2011 he underwent nuclear stress test which demonstrated mild reversible defect of the anterolateral and inferolateral butler with preserved LV function and EF of 55%. In absence of anginal symptoms, continued medical management was advised and preferred by the patient. COPD Gout GERD Hiatal hernia Barretts esophagus Anxiety Colonoscopy with adenomatous polypectomy Cataract extraction Right rotator cuff repair (Wilman Schmitz PA-C) Family History Cancer Heart disease Hypertension Lung disease Father - lung cancer, 90. Mother with HTN, glaucoma (Wilman Schmitz PA-C) Cancer Heart disease Hypertension Lung disease (Roque Jerry DO) Social History Reformed smoker. Social alcohol. No illegal drug use. . Two children. 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 No fevers or chills. Head: No headache. No head trauma. Cardiovascular: No chest pain. Stable exertional dyspnea. No palpitations. No orthopnea or PND. Pulmonary: COPD. JAIME. Hoarsness. Gastrointestinal: Dysphagia. No nausea, vomiting, or diarrhea. Skin: No rash. Musculoskeletal: Arthritis. Neurological: Denies history of TIA, CVA, or seizures. Complete review of systems is as stated above, negative, or noncontributory. (Wilman Schmitz PA-C) Allergies Coded Allergies: Atorvastatin (Unverified Adverse Reaction, Unknown, stiffness, 07/01/17) Yellow Dye (Verified Adverse Reaction, Unknown, vomitiing, 07/01/17) Medications Reported Home Medications Medications Dose Route/Sig Max Daily Dose Days Date Category Duoneb (Ipratropium-Albuterol) 3 Ml Nebu 1 Treatment INH Q4H PRN 07/01/17 Reported Flonase Allergy Relief (Fluticasone Propionate (Nasal)) 50 Mcg/Act Spr 2 Sprays MARILYN DAILY PRN 07/01/17 Reported Ecotrin Or Generic (Aspirin) 81 Mg Tab 81 Mg PO DAILY 07/01/17 Reported Synthroid (Levothyroxine Sodium) 125 Mcg Tab 125 Mcg PO DAILY 07/01/17 Reported Ramipril 10 Mg Cap 10 Mg PO HS 90 07/01/17 Reported Toprol-Xl (Metoprolol Succinate) 25 Mg Tabcr 12.5 Mg PO HS 07/01/17 Reported Paroxetine (Paroxetine HCl) 20 Mg Tab 20 Mg PO QAM 07/01/17 Reported Tylenol (Acetaminophen) 325 Mg Tab 325 Mg PO DIRECTED 03/27/16 Reported Nitrostat (Nitroglycerin) 0.4 Mg Tab 0.4 Mg UT PRN 10/09/14 Reported Zyloprim (Allopurinol) 300 Mg Tab 300 Mg PO HS 10/09/14 Reported Prilosec (Omeprazole) 20 Mg Capcr 20 Mg PO BID 06/16/11 Reported Zetia (Ezetimibe) 10 Mg Tab 10 Mg PO HS 08/30/08 Reported Jennifer Allergy (Fexofenadine Hcl) 180 Mg Tab 1 Tab PO DAILY PRN 30 07/01/17 Reported (Wilman Schmitz PA-C) Physical Exam Vital Signs (Last 8hrs): Last 8 Hrs Date Time Temp Pulse Resp B/P (MAP) Pulse Ox O2 Delivery O2 Flow Rate FiO2 07/02/17 08:00 Room Air 07/02/17 07:29 36.6 49 18 133/60 (84) 95 Room Air 07/02/17 04:00 95 CPAP 07/02/17 03:47 36.5 46 16 123/45 (71) 95 BiPAP General: A&Ox3. NAD. Elevated BMI. HEENT: Normocephalic. Atraumatic. PER. EOMI. Conjunctiva and sclera clear. NECK: Bilateral carotid bruits. No JVD. Heart: Irregular in the 50's. No murmur. PMI non displaced. Lungs: Clear to auscultation. Abdomen: +BS. Soft. Nontender. No overt masses. Extremities: No edema. No clubbing or cyanosis. Pulses: radial=2/4, posterior tibial=2/4. Neuro : No focal deficits. Psych: Normal affect. (Wilman Schmitz, TITA) Data Last 24 Hours Test 07/01/17 19:35 07/02/17 06:36 07/02/17 07:26 White Blood Count 8.20 K/uL 6.80 K/uL Red Blood Count 4.07 M/uL 3.82 M/uL Hemoglobin 13.2 g/dL 12.1 g/dL Hematocrit 38.7 % 36.5 % Mean Corpuscular Volume 95.1 fL 95.5 fL Mean Corpuscular Hemoglobin 32.4 pg 31.7 pg Mean Corpuscular Hemoglobin Concent 34.1 g/dl 33.2 g/dl Platelet Count 287 K/uL 258 K/uL Mean Platelet Volume 9.5 fL 9.4 fL Neutrophils (%) (Auto) 54.5 % Lymphocytes (%) (Auto) 24.5 % Monocytes (%) (Auto) 9.5 % Eosinophils (%) (Auto) 10.6 % Basophils (%) (Auto) 0.7 % Neutrophils # (Auto) 4.46 K/uL Lymphocytes # (Auto) 2.01 K/uL Monocytes # (Auto) 0.78 K/uL Eosinophils # (Auto) 0.87 K/uL Basophils # (Auto) 0.06 K/uL RDW Standard Deviation 50.3 fL 51.2 fL RDW Coefficient of Variation 14.5 % 14.7 % Immature Granulocyte % (Auto) 0.2 % Immature Granulocyte # (Auto) 0.02 K/uL Prothrombin Time 10.3 SECONDS Prothromb Time International Ratio 1.0 Activated Partial Thromboplast Time 27.9 SECONDS Partial Thromboplastin Ratio 1.1 Sodium Level 136 mmol/L 139 mmol/L Potassium Level 4.4 mmol/L 4.5 mmol/L Chloride Level 104 mmol/L 106 mmol/L Carbon Dioxide Level 25 mmol/L 27 mmol/L Anion Gap 7.0 mmol/L 6.0 mmol/L Blood Urea Nitrogen 20 mg/dl 19 mg/dl Creatinine 1.15 mg/dl 1.10 mg/dl Est Creatinine Clear Calc Drug Dose 67.5 ml/min 70.4 ml/min Estimated GFR () 70.3 74.1 Estimated GFR (Non- 60.6 64.0 BUN/Creatinine Ratio 17.6 17.4 Random Glucose 73 mg/dl 97 mg/dl Calcium Level 8.6 mg/dl 8.6 mg/dl Magnesium Level 2.2 mg/dl Total Bilirubin 0.2 mg/dl Aspartate Amino Transf (AST/SGOT) 25 U/L Alanine Aminotransferase (ALT/SGPT) 31 U/L Alkaline Phosphatase 85 U/L Total Creatine Kinase 76 U/L Creatine Kinase MB 1.1 ng/ml Creatine Kinase MB Ratio 1.4 Troponin I < 0.015 ng/ml Total Protein 7.5 gm/dl Albumin 3.6 gm/dl Globulin 3.9 gm/dl Albumin/Globulin Ratio 0.9 Thyroid Stimulating Hormone (TSH) 0.570 uIu/ml Bedside Glucose 86 mg/dl CXR: No acute cardiopulmonary abnormality. EKG dated and timed 01-JUL-2017 @ 19:11:15: Sinus rhythm with occasional premature ventricular complexes. Nonspecific ST abnormality EKG dated and timed 02-JUL-2017 @ 07:15:11: Sinus bradycardia at 55 bpm with occasional premature ventricular complexes. Telemetry: Bradycardia at 48 bpm currently. Multiple pauses up to 5.9 seconds in duration. (Wilman Schmitz PA-C) Assessment & Plan 1. Symptomatic sinus node dysfunction. Consult EP for dual chamber pacemaker implantation. Resume Toprol XL post pacemaker implantation. 2. ASCVD. Stable. Continue ASA. Resume Toprol XL post pacemaker 3. Dyslipidemia. Continue Zetia. Patient with poor tolerance to statin therapy 4. Hypertension. Follow. 5. JAIME. Continue CPAP. (Wilman Schmitz PA-C) CARDIOLOGY ATTENDING ADDENDUM: The patient was seen and personally examined. Agree with Wilman Schmitz PA-C's findings and plans as documented above. Spoke with Dr. Aldana and expect that he will place a pacemaker later today. (Roque Jerry, DO)
--- NOTE | 2017-07-02 11:17 | Progress Note ---
Medicine Progress Note Date & Time of Visit: Jul 02, 2017 at 11:17. Subjective resting in bed comfortable in good spirits no active dyspnea, chest pain, palpitations, dizziness no other symptoms Objective Last 8 Hrs Date Time Temp Pulse Resp B/P (MAP) Pulse Ox O2 Delivery O2 Flow Rate FiO2 07/02/17 08:00 Room Air 07/02/17 07:29 36.6 49 18 133/60 (84) 95 Room Air 07/02/17 04:00 95 CPAP 07/02/17 03:47 36.5 46 16 123/45 (71) 95 BiPAP Physical Exam: General- oriented x3, not in distress, speaks in sentences with no effort Head- atraumatic Eyes- PERRL, EOMI, anicteric ENT- oropharynx clear Neck- supple, no JVD, no adenopathy, no thyromegaly; carotids +2/2 Lungs- clear to auscultation bilaterally Heart- regular rhythm; no murmur, normal rate Abdomen- normal bowel sounds, soft, nontender, no masses Extremities- no pretibial edema, no calf tenderness Neuro- alert, oriented x 3; no gross focal motor/sensory deficits Skin- warm & dry Laboratory Results: Last 24 Hours Test 07/01/17 19:35 07/02/17 06:36 07/02/17 07:26 White Blood Count 8.20 K/uL 6.80 K/uL Red Blood Count 4.07 M/uL 3.82 M/uL Hemoglobin 13.2 g/dL 12.1 g/dL Hematocrit 38.7 % 36.5 % Mean Corpuscular Volume 95.1 fL 95.5 fL Mean Corpuscular Hemoglobin 32.4 pg 31.7 pg Mean Corpuscular Hemoglobin Concent 34.1 g/dl 33.2 g/dl Platelet Count 287 K/uL 258 K/uL Mean Platelet Volume 9.5 fL 9.4 fL Neutrophils (%) (Auto) 54.5 % Lymphocytes (%) (Auto) 24.5 % Monocytes (%) (Auto) 9.5 % Eosinophils (%) (Auto) 10.6 % Basophils (%) (Auto) 0.7 % Neutrophils # (Auto) 4.46 K/uL Lymphocytes # (Auto) 2.01 K/uL Monocytes # (Auto) 0.78 K/uL Eosinophils # (Auto) 0.87 K/uL Basophils # (Auto) 0.06 K/uL RDW Standard Deviation 50.3 fL 51.2 fL RDW Coefficient of Variation 14.5 % 14.7 % Immature Granulocyte % (Auto) 0.2 % Immature Granulocyte # (Auto) 0.02 K/uL Prothrombin Time 10.3 SECONDS Prothromb Time International Ratio 1.0 Activated Partial Thromboplast Time 27.9 SECONDS Partial Thromboplastin Ratio 1.1 Sodium Level 136 mmol/L 139 mmol/L Potassium Level 4.4 mmol/L 4.5 mmol/L Chloride Level 104 mmol/L 106 mmol/L Carbon Dioxide Level 25 mmol/L 27 mmol/L Anion Gap 7.0 mmol/L 6.0 mmol/L Blood Urea Nitrogen 20 mg/dl 19 mg/dl Creatinine 1.15 mg/dl 1.10 mg/dl Est Creatinine Clear Calc Drug Dose 67.5 ml/min 70.4 ml/min Estimated GFR () 70.3 74.1 Estimated GFR (Non- 60.6 64.0 BUN/Creatinine Ratio 17.6 17.4 Random Glucose 73 mg/dl 97 mg/dl Calcium Level 8.6 mg/dl 8.6 mg/dl Magnesium Level 2.2 mg/dl Total Bilirubin 0.2 mg/dl Aspartate Amino Transf (AST/SGOT) 25 U/L Alanine Aminotransferase (ALT/SGPT) 31 U/L Alkaline Phosphatase 85 U/L Total Creatine Kinase 76 U/L Creatine Kinase MB 1.1 ng/ml Creatine Kinase MB Ratio 1.4 Troponin I < 0.015 ng/ml Total Protein 7.5 gm/dl Albumin 3.6 gm/dl Globulin 3.9 gm/dl Albumin/Globulin Ratio 0.9 Thyroid Stimulating Hormone (TSH) 0.570 uIu/ml Bedside Glucose 86 mg/dl Assessment & Plan SYMPTOMATIC BRADYCARDIA - admit to tele - patient presenting with lightheadedness, dizziness, and syncope x 2 - has had a work up as an outpatient 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 - EKG shows sinus bradycardia with PVC; did have one pause however was asymptomatic - for Pacemaker Placement Bblocker held - Cardiology consulted HX CAD stable - continue ASA and Zetia - holding beta liliana due to bradycardia / pauses HTN on Enalapril - holding metoprolol as above HYPOTHYROIDISM - TSH WNL - continue levothyroxine GERD - continue PPI JAIME - CPAP as per home settings DVT PROPHYLAXIS - SCDs DISPO - anticipate d/c home when cleared by Cardio Current Inpatient Medications: Current Inpatient Medications Medications (Trade) Dose Ordered Sig/Chuck Route Start Time Stop Time Status Last Admin Dose Admin Acetaminophen (Tylenol Tab) 650 mg Q4H PRN PO 07/01/17 22:00 07/31/17 21:59 Ondansetron HCl (Zofran Inj) 4 mg Q6H PRN IV 07/01/17 22:00 07/31/17 21:59 Allopurinol (Zyloprim Tab) 300 mg HS PO 07/02/17 21:00 08/01/17 20:59 Aspirin (Ecotrin Tab) 81 mg DAILY PO 07/02/17 09:00 08/01/17 08:59 EZETIMIBE (Zetia Tab) 10 mg HS PO 07/02/17 21:00 08/01/17 20:59 Levothyroxine Sodium (Synthroid Tab) 125 mcg DAILYBB PO 07/02/17 06:00 08/01/17 05:59 07/02/17 05:51 125 MCG Paroxetine HCl (pAXil TAB) 20 mg QAM PO 07/02/17 09:00 08/01/17 08:59 Pantoprazole Sodium (Protonix Tab) 40 mg BID PO 07/02/17 09:00 08/01/17 08:59 Enalapril Maleate (Vasotec Tab) 40 mg HS PO 07/02/17 21:00 08/01/17 20:59
--- NOTE | 2017-07-02 11:43 | Pre Sedation Assessment ---
Pre Sedation Assessment General Date of Sedation: Jul 02, 2017. Vital Signs Past 12 Hours Date Time Temp Pulse Resp B/P (MAP) Pulse Ox O2 Delivery O2 Flow Rate FiO2 07/02/17 08:00 Room Air 07/02/17 07:29 36.6 49 18 133/60 (84) 95 Room Air 07/02/17 04:00 95 CPAP 07/02/17 03:47 36.5 46 16 123/45 (71) 95 BiPAP 07/02/17 00:02 64 97 07/02/17 00:00 CPAP Review Cardiovascular: regular rate, rhythm Lungs: lungs clear Pre-Sedation Airway Assessment Smoking Status: Former Smoker Hx of Sleep Apnea: Yes Short Thick Neck: No Thyro-mental Distance: > 3 Finger Breadths Oral Cavity: WNL Mallampati Classification: Class II ASA Classification: Class III NPO Status Date of Last Intake of Fluids: Jul 02, 2017 Time of Last Intake of Fluids: 0545 Date of Last Intake of Solids: Jul 01, 2017 Procedure Planning Contraindications for Sedation: None Current Medications Reviewed: Yes Notes The planned sedation has been discussed with the patient. Informed Consent was obtained. I have identified the patient, determined the appropriateness of sedation and have assessed the patient immediately prior to the procedure. All medicine(s) and interventions are by my order. Patient has been told that his airway is small and if he needed intubation a #6 tube should be used.
[2017-07-02] MEDS ORDERED: FENTANYL CITRATE INJ 50 MCG/1 ML 2 ML VIAL ONE (12:07)
[2017-07-02] MEDS ORDERED: BACITRACIN OINT 0.9 GM PKT ONE (12:07)
[2017-07-02] MEDS ORDERED: LIDOCAINE HCL 1% 20 ML VIAL ONE (12:07)
[2017-07-02] MEDS ORDERED: BACITRACIN 50000 UNIT VIAL ONE (12:07)
[2017-07-02] MEDS ORDERED: MIDAZOLAM HCL 5 MG/ML 1 ML VIAL ONE (12:07)
[2017-07-02] MEDS ORDERED: CEFAZOLIN SOD 1 GM VIAL ONE (12:09)
[2017-07-02] MEDS ORDERED: WATER, STERILE FOR INJ 20 ML VIAL ONE (12:09)
--- NOTE | 2017-07-02 13:22 | [facility] Operative Report ---
Operative Report Operative Date Jul 02, 2017. Pre-Operative Diagnosis Sinus node dysfunction Post-Operative Diagnosis Same Procedure(s) Performed Dual-chamber pacemaker implantation Drafter [employer] Design Surgeon(s) None Estimated Blood Loss 30 cc Findings Good lead position although the right ventricular lead had to be repositioned out of the apex to obtain acceptable thresholds. Specimens None Anesthesia Local with sedation Complication(s) None Disposition PCU Description of Procedure After obtaining informed consent for the procedure, the patient was brought to the laboratory and prepped and draped in the standard sterile manner. The left prepectoral region was anesthetized with 1% lidocaine local anesthetic and left axillary venipuncture was performed by percutaneous technique and a guidewire placed through the left subclavian vein into the superior vena cava. The area was further infiltrated with 1% lidocaine local anesthetic and a 5 cm incision was made parallel to the left clavicle and 2 cm below it and carried down to the anterior pectoralis fascia. A pacemaker pocket was formed by blunt dissection anterior to the pectoralis fascia and a bacitracin-soaked sponge (50, 000 units in 50 cc normal saline solution) was placed in the pocket. An 8 [employer] Med[employer] lead introducer was placed over the guidewire into the left subclavian vein, the dilator and guidewire were removed and a bipolar active fixation steroid tipped ventricular lead was advanced through the introducer into the superior vena cava. A guidewire was placed through the introducer and the introducer was stripped from the lead and guidewire. Another 8 [employer] Medtr[employer] lead introducer was placed over the guidewire into the left subclavian vein, the dilator and guidewire were removed and a bipolar active fixation steroid tipped atrial lead was advanced through the introducer into the superior vena cava. A guidewire was placed back through the introducer and the introducer was stripped from the lead and guidewire. Using a curved stylette the ventricular lead was advanced through the right ventricular outflow tract into the pulmonary artery and then using a straight stylette was positioned in the right ventricular apex. Several positions were tested in the true apex, thresholds were not acceptable however. The lead was repositioned to a septal position near the apex. The screw was extended fixing the lead in position. Pacing and sensing thresholds were evaluated in bipolar configuration and are recorded on the implant data sheet. Using a curved stylette the atrial lead was positioned in the region of the atrial appendage and the screw extended fixing the lead in position. Pacing and sensing thresholds were evaluated in bipolar configuration and are recorded on the implant data sheet. Once the leads were in position they were attached to the anterior pectoralis fascia using 2 sutures of 2-0 silk around each lead collar. The bacitracin- soaked sponge was removed from the pocket, hemostasis was obtained, the pacemaker was attached to the leads and placed in the pocket with the leads coiled beneath it. The incision was closed with a running double subcutaneous closure of 3-0 Vicryl absorbable suture, followed by running subcuticular skin closure of 4-0 Vicryl absorbable suture. Bacitracin ointment was placed on the incision and a pressure dressing applied. I attest to the content of the Intraoperative Record and any orders documented therein. Any exceptions are noted below.
--- NOTE | 2017-07-02 13:25 | Post Sedation Assessment ---
Post Sedation Assessment General Date of Sedation Jul 02, 2017. Vital Signs: Vital Signs Past 12 Hours Date Time Temp Pulse Resp B/P (MAP) Pulse Ox O2 Delivery O2 Flow Rate FiO2 07/02/17 08:00 Room Air 07/02/17 07:29 36.6 49 18 133/60 (84) 95 Room Air 07/02/17 04:00 95 CPAP 07/02/17 03:47 36.5 46 16 123/45 (71) 95 BiPAP Post Procedure Recovery Score Activity: (2) Moves 4 extremities * Respiration: (2) Deep breath/cough Circulation: (2) +/-20% PreAnes Value Consciousness: (1) Arouseable (by name) Oxygen Saturation: (1) O2 needed for >90% Post Anesthesia Score: 8 Discharge Sedation Level of Care: Fast Track Phase II Post Sedation Plan On clinical assessment, the patient appears to have tolerated the sedation without complications. Patient is recovering as anticipated. Patient will continue to be monitored by nursing and may be discharged when sedation discharge criteria are met per below protocol. Upon Completions of procedure and additional 15 minutes continue every 5 minute vital signs and the P.A.R. score; then discharge to a Phase I or Fast Track to Phase II per the following guidelines: * Discharge Patient to appropriate Phase II area if PAR is 8 or greater or return to pre- procedure baseline. The post - procedure orders will be as directed. * If PAR score is less than 8 or not return to pre-procedure baseline then patient will follow Phase I monitoring till PAR is reached for Phase II. The Phase I may be done in procedure room or may call to secure a Phase I area. * If naloxone or flumazenil are used for reversal, hold in Phase I for an additional 60 -120 minutes before discharge to Phase II. Please call the Sedation Physician to re-evaluate and complete post-note for discharge to Phase II area. Do NOT discharge from procedure sedation or Phase 1 until post- sedation evaluation note is complete by procedure /sedation MD Sedation Discharge Instructions to be given to the patient at discharge to home.
[2017-07-02] MEDS ORDERED: KETOROLAC TROMETHAMINE 10 MG TAB PO PRN (13:30)
[2017-07-02] MEDS ORDERED: ACETAMINOPHEN 325 MG TAB PO PRN (13:30)
[2017-07-02] MEDS ORDERED: ALLOPURINOL 300 MG TAB PO SCH (21:00)
[2017-07-02] MEDS ORDERED: ENALAPRIL MALEATE 10 MG TAB PO SCH (21:00)
[2017-07-02] MEDS ORDERED: EZETIMIBE 10MG TAB PO SCH (21:00)
[2017-07-03] VITALS (7 sets, daily range): BP systolic 139–156; BP diastolic 58–74; PULSE 75–80; TEMP 36.5–36.7; O2SAT 94–97
[2017-07-03] MEDS: LEVOTHYROXINE 125 MCG TAB PO SCH (06:07)
--- NOTE | 2017-07-03 07:19 | DIAGNOSTIC IMAGING REPORT ---
CHEST 2 VIEWS ROUTINE CLINICAL HISTORY: EXACT TIME ORDERED Evaluate for pneumothorax and lead placement COMPARISON STUDY: 07/01/2017 FINDINGS: Interval placement of a permanent bipolar cardiac pacemaker. Leads are in good position. No evidence pneumothorax. Lungs remain clear. IMPRESSION: Interval placement of a permanent bipolar cardiac pacemaker with leads in good position. No evidence of pneumothorax. The above report was generated using voice recognition software. It may contain grammatical, syntax or spelling errors. Electronically signed by: Wilman Varner M.D. 07/03/2017 7:18 AM Dictated Date/Time: 07/03/2017 7:18 AM
--- NOTE | 2017-07-03 09:04 | Cardiology Follow-Up ---
Subjective Date of Service: Jul 03, 2017. Pt evaluation today including: conversation w/ patient, conversation w/ family , physical exam, lab review, review of studies, review of inpatient medication list, conversation w/ attending History of Present Illness This is a very pleasant 77-year-old gentleman who has a history of coronary disease including bypass surgery in 1995 in [place]. Following his bypass surgery he had a stress echo in 2008 with no evidence of ischemia, he had an echocardiogram 2011 showing normal left ventricular function with left ventricular hypertrophy. He also has a history of hypertension, hyperlipidemia and laryngeal cancer although he can speak with a hoarse voice. He has hypothyroidism and sleep apnea. He has been having syncopal episodes for several months as well as brief episodes of shortness of breath. The shortness of breath and the syncope seem to occur at the same time. He wore a event recorder and had bradycardia observed and was scheduled to see a [facility] brokerage manager, however he presented to the emergency room having recurrent syncope. The episodes are brief, however he seems to lose consciousness completely. Following admission he was observed to have multiple sinus pauses, yesterday morning as long as 5.9 seconds. He did take metoprolol succinate 12.5 mg in the evening, the last dose was June 30, 2017. He therefore underwent dual- chamber pacemaker implantation on July 02, 2017. I restarted his beta blockade following pacemaker implantation. He feels well today, he has no incisional discomfort and has no complaints. No further presyncope or syncope. Social History Smoking Status: Former Smoker History of Alcohol Use: Yes (1-2 PER WEEK-USUALLY [place]) Review of Systems Respiratory: + shortness of breath, No cough, No wheezing, No dyspnea on exertion Cardiac: + see HPI, + problem reported (Syncope), No chest pain, No orthopnea, No PND, No edema, No palpitations Medications Cardiovascular: Item Value Date Time Metoprolol 25 mg 07/03/172099 Succinate QAM/PO (Toprol Xl Tab) EZETIMIBE 10 mg 07/02/172099 (Zetia Tab) HS/PO 07/02/171926 Enalapril Maleate 40 mg 07/02/172099 (Vasotec Tab) HS/PO 07/02/171926 Aspirin 81 mg 07/02/17 0900 (Ecotrin Tab) DAILY/PO Objective Vital Signs Past 12 Hours Date Time Temp Pulse Resp B/P (MAP) Pulse Ox O2 Delivery O2 Flow Rate FiO2 07/03/17 07:40 36.7 80 20 139/70 (93) 95 Room Air 07/03/17 04:00 96 Room Air 07/03/17 03:52 36.7 75 18 143/58 (86) 95 07/03/17 00:06 36.5 77 18 156/74 (101) 94 BiPAP 07/03/17 00:00 96 Room Air 07/02/17 22:25 58 97 Last Recorded Weight-Kilograms: 111.400 Physical Exam Constitutional: General Apperance: heathly-appearing Level of Distress: NAD Lungs: Respiratory effort: no dyspnea, good air movement Auscultation: breath sounds normal, no wheezing Cardiovascular: Heart Auscultation: RRR, no murmurs, no rubs, no gallops, pertinent finding (Frequent premature beats) Peripheral Pulses: Bruits: none appreciated Extremities: no edema His incision is clean, there was little blood on the bandage but no ongoing bleeding. No swelling or ecchymosis. Data Laboratory Results: Last 24 Hours Test 07/02/17 11:35 Bedside Glucose 85 mg/dl Imaging: Chest x-ray shows good lead position, no pneumothorax EKG: This morning his electrocardiogram shows appropriate atrial pacing with frequent premature ventricular beats Telemetry reviewed: Mostly atrial pacing with frequent PVCs Pacemaker evaluation: Good pacing and sensing characteristics Assessment and Plan 1. Pacemaker: Functioning well, chest x-ray looks good with good lead position and no pneumothorax. His incision looks good. 2. Sinus node dysfunction: He clearly has sinus node dysfunction with symptoms of syncope and a documented pause of 5.9 seconds off of beta-blockade. He is pacing most the time in the atrium now appropriately and this should not be an issue. 3. Hypertension: He had quite significant hypertension when he arrived in the emergency room, his blood pressure has been better following admission. I would consider increasing his beta blockade to help with his blood pressure and also his ventricular arrhythmias, now with his pacemaker he can probably handle higher doses of beta blockade. I did increase his dose slightly from 12-1/2 mg in evening (which is extremely low for him) to 25 mg in the evening but even that is a low dose. 4. Coronary disease: He has a long history of coronary disease however it has been symptomatically stable and it should not be associated with sinus arrhythmias. He should be on a beta-liliana for his frequent ectopy and his coronary artery disease, I would recommend going up on the dose gradually. He is stable for discharge from my standpoint. I will leave instructions for him in his chart for his discharge. I believe he already has a follow-up appointment scheduled at [facility]. Thank you for allowing me to participate in his care.
--- NOTE | 2017-07-03 09:05 | Consultant Recommendations ---
Manager Plant Recommendations Date of Service Jul 03, 2017. Manager Plant Recommendations ACTIVITY RECOMMENDATIONS: * Do not raise affected arm over head for 2 weeks. SPECIAL CARE INSTRUCTIONS: * If bleeding occurs, apply direct pressure to area for 5 minutes. * Call your doctor if you have severe pain, fever, drainage or bleeding at site. * Keep dressing on and dry for 48 hours then remove. * Keep any scheduled doctor's appointment. * Implant Card - hand held device with website information given. SKIN IRRITATION: * You may experience some redness and/or swelling in the area where radiation was administered. If any skin irritation occurs, please contact your family physician. FOLLOW UP VISIT: Keep any scheduled doctor appointments.
[2017-07-03] MEDS: PANTOprazole SOD 40 MG TAB PO SCH (10:37)
[2017-07-03] MEDS: PAROXETINE 20 MG TAB PO SCH (10:37)
--- NOTE | 2017-07-03 10:40 | Cardiology Follow-Up ---
Subjective General Date of Service: Jul 03, 2017. Chief Complaint: SSS Pt evaluation today including: conversation w/ patient, conversation w/ family , physical exam, chart review, lab review, review of studies, review of inpatient medication list History of Present Illness Patient seen and examined. Chart, medications, chest x-ray, and pacemaker interrogation reviewed. Patient is anxious for discharge. No complaints voiced. He denies chest pain, palpitations, or dyspnea. 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 There are frequent PVCs in singles. Allergies Coded Allergies: Atorvastatin (Unverified Adverse Reaction, Unknown, stiffness, 07/01/17) Yellow Dye (Verified Adverse Reaction, Unknown, vomitiing, 07/01/17) Social History Smoking Status: Former Smoker Hx Tobacco Use In Past Year?: No Hx Alcohol Use - Type And Amou: Yes (1-2 PER WEEK-USUALLY [place]) Hx Substance Use - Type And Am: No Physical Exam Vital Signs Last Vital Signs Documentation Date Time Temp Pulse Resp B/P (MAP) Pulse Ox O2 Delivery O2 Flow Rate FiO2 07/03/17 08:00 97 Room Air 07/03/17 07:40 36.7 80 20 139/70 (93) 07/02/17 13:15 2 Physical Exam Constitutional: General Apperance: heathly-appearing Level of Distress: NAD Psychiatric: Mental Status: active & alert Orientation: to time, to place, to person Memory: recent memory normal, remote memory normal Head: normocephalic Eyes: EOM: EOMI ENMT: normal ENT inspection, hearing grossly normal Neck: supple, no masses Lungs: Respiratory effort: no dyspnea, good air movement Auscultation: breath sounds normal, no wheezing Cardiovascular: Heart Auscultation: RRR, no murmurs, no rubs, no gallops, pertinent finding (Frequent premature beats) Peripheral Pulses: Bruits: none appreciated Abdomen: Bowel Sounds: normal Inspection & Palpation: soft, no tenderness, guarding & rebound, no masses Musculoskeletal: normal strength (5/5 throughout) Extremities: no edema Neurologic: Cranial Nerves: grossly intact Sensation: grossly intact Assessment and Plan Assessment and Plan Symptomatic sinus node dysfunction status post July 02, 2017 dual-chamber pacemaker implantation without complication. Asymptomatic premature ventricular complexes. Beta-liliana therapy resumed, increase to 25 mg per day. Consider further titration as an outpatient. Recommend resting echocardiography to assess LV systolic function as an outpatient. ASCVD. Stable. Continue beta-liliana and aspirin therapy. Dyslipidemia. Continue Zetia. Patient with poor tolerance to statin therapy Hypertension. Follow. JAIME. Continue CPAP. Stable for discharge. Patient will follow up with Eulogio Buck in 1 week for pacemaker interrogation as well as wound evaluation. He will be seen by his outpatient provider, Elvira Alexander PA-C at the end of the month. CARDIOLOGY ATTENDING ADDENDUM: The patient was seen and personally examined. Agree with Wilman Schmitz PA-C's findings and plans as documented above. The patient is in good spirits and ready to be discharged home. Arrangements have been made for follow-up. Laboratory Results Last 24 Hours Test 07/02/17 11:35 Bedside Glucose 85 mg/dl
--- NOTE | 2017-07-03 11:14 | Progress Note ---
Medicine Progress Note Date & Time of Visit: Jul 03, 2017 at 11:02. Subjective seen resting in bed, comfortable states he feels better overall denies pain, chest pain, dyspnea, dizziness ambulates with no problems states he is ready and would like to be discharged today Objective Last 8 Hrs Date Time Temp Pulse Resp B/P (MAP) Pulse Ox O2 Delivery O2 Flow Rate FiO2 07/03/17 08:00 97 Room Air 07/03/17 07:40 36.7 80 20 139/70 (93) 95 Room Air 07/03/17 04:00 96 Room Air 07/03/17 03:52 36.7 75 18 143/58 (86) 95 Physical Exam: General- oriented x3, not in distress, speaks in sentences with no effort Eyes- anicteric Neck- supple, no JVD Lungs- clear breath sounds bilaterally pacemaker site- dressing in place, no discharge/bleeding Heart- regular rhythm; no murmur, normal rate Abdomen- normal bowel sounds, soft, nontender, no masses Extremities- no pretibial edema, no calf tenderness Neuro- alert, oriented x 3; no gross focal motor/sensory deficits Skin- warm & dry Laboratory Results: Last 24 Hours Test 07/02/17 11:35 Bedside Glucose 85 mg/dl Assessment & Plan Symptomatic sinus node dysfunction - patient presenting with lightheadedness, dizziness, and syncope x 2 - status post July 02, 2017 dual-chamber pacemaker implantation without complication, by Dr. Mullen asymptomatic PVCs - evaluated by Remedial Teacher MINNA Schmitz and Dr. Jerry recommend to increase Metoprolol XL 25mg po daily Pacemaker check c/o Cardiology Clinic next week ff up with [facility] Cardiology Provider MINNA Alexander end of the month HX CAD stable - continue ASA and Zetia HTN - on Ramipril HYPOTHYROIDISM - TSH WNL - continue levothyroxine GERD - continue PPI JAIME - CPAP as per home settings DVT PROPHYLAXIS - SCDs DISPO d/c home today ff up with PCP in 3-5 days ff up with Remedial Teacher in 1 week Current Inpatient Medications: Current Inpatient Medications Medications (Trade) Dose Ordered Sig/Chuck Route Start Time Stop Time Status Last Admin Dose Admin Acetaminophen (Tylenol Tab) 650 mg Q4H PRN PO 07/01/17 22:00 07/31/17 21:59 Ondansetron HCl (Zofran Inj) 4 mg Q6H PRN IV 07/01/17 22:00 07/31/17 21:59 Allopurinol (Zyloprim Tab) 300 mg HS PO 07/02/17 21:00 08/01/17 20:59 07/02/17 19:26 300 MG Aspirin (Ecotrin Tab) 81 mg DAILY PO 07/02/17 09:00 08/01/17 08:59 EZETIMIBE (Zetia Tab) 10 mg HS PO 07/02/17 21:00 08/01/17 20:59 07/02/17 19:27 10 MG Levothyroxine Sodium (Synthroid Tab) 125 mcg DAILYBB PO 07/02/17 06:00 08/01/17 05:59 07/03/17 06:07 125 MCG Paroxetine HCl (pAXil TAB) 20 mg QAM PO 07/02/17 09:00 08/01/17 08:59 07/03/17 10:37 20 MG Pantoprazole Sodium (Protonix Tab) 40 mg BID PO 07/02/17 09:00 08/01/17 08:59 07/03/17 10:37 40 MG Enalapril Maleate (Vasotec Tab) 40 mg HS PO 07/02/17 21:00 08/01/17 20:59 07/02/17 19:27 40 MG Ketorolac Tromethamine (Toradol Tab) 10 mg Q6H PRN PO 07/02/17 13:30 07/07/17 13:29 Metoprolol Succinate (Toprol Xl Tab) 25 mg QAM PO 07/03/17 21:00 08/02/17 20:59
[2017-07-03] MEDS ORDERED: TPRSR25 PO (11:15)
--- NOTE | 2017-07-03 11:23 | Discharge Instructions ---
Discharge Instructions Date of Service Jul 03, 2017. Admission Reason for Admission: Symptomatic Bradycardia Discharge Discharge Diagnosis / Problem: Symptomatic Bradycardia Discharge Goals Goal(s): Diagnostic testing, Therapeutic intervention Activity Recommendations Activity Limitations: as noted below (No heavy exertion until re-evaluated by Metal Engineering Process Worker) Lifting Limitations: until after follow-up appointment Exercise/Sports Limitations: until after follow-up appointment Driving or Machine Use: No driving until re-evaluated by Metal Engineering Process Worker . Instructions / Follow-Up Instructions / Follow-Up PLEASE REVIEW YOUR NEW MEDICATION LIST AND FOLLOW INSTRUCTIONS CAREFULLY. PLEASE FOLLOW INSTRUCTIONS BY ASSOCIATE PROFESSOR OF ENGLISH REGARDING PACEMAKER WOUND CARE NOTED BELOW. ACTIVITY RECOMMENDATIONS: * Do not raise affected arm over head for 2 weeks. SPECIAL CARE INSTRUCTIONS: * If bleeding occurs, apply direct pressure to area for 5 minutes. * Call your doctor if you have severe pain, fever, drainage or bleeding at site. * Keep dressing on and dry for 48 hours then remove. * Keep any scheduled doctor's appointment. * Implant Card - hand held device with website information given. SKIN IRRITATION: * You may experience some redness and/or swelling in the area where radiation was administered. If any skin irritation occurs, please contact your family physician. CALL ASSOCIATE PROFESSOR OF ENGLISH/PRIMARY CARE PROVIDER OR RETURN TO ER IMMEDIATELY IF WITH RECURRENCE OF SYMPTOMS, INCREASING PAIN, DISCHARGE, REDNESS, BLEEDING ON THE PACEMAKER WOUND SITE. FOLLOW UP WITH DR. ROSARIO ON SATURDAY JULY 08, 2017 AT 11:00 AM. FOLLOWUP WITH [facility] NEXT WEEK. THE CLINIC WILL CALL YOU FOR THE APPOINTMENT. Current Hospital Diet Patient's current hospital diet: AHA Diet (Heart Healthy) Discharge Diet Recommended Diet: AHA Diet (Heart Healthy) Procedures Procedures Performed: PACEMAKER PLACEMENT Pending Studies Studies pending at discharge: yes List of pending studies: PACEMAKER CHECK NEXT WEEK AT [facility] Medical Emergencies . Who to Call and When: Call 911 or go to the Emergency Room if: * If at any time you feel your situation is an emergency * You have tightness or pain in your chest that does not go away with rest or Nitroglycerin * You are very short of breath even with rest . Non-Emergent Contact Non-Emergency issues call your: Primary Care Provider, Metal Engineering Process Worker Call Non-Emergent contact if: you have a fever, your pain is not controlled, your pain is worsening, wound has increased drainage, wound has increased redness, wound has increased pain, you have any medication questions . . "Provider Documentation" section prepared by Edwin Lau. . License Registration Examiner Recommendations License Registration Examiner Recommendations: ACTIVITY RECOMMENDATIONS: * Do not raise affected arm over head for 2 weeks. SPECIAL CARE INSTRUCTIONS: * If bleeding occurs, apply direct pressure to area for 5 minutes. * Call your doctor if you have severe pain, fever, drainage or bleeding at site. * Keep dressing on and dry for 48 hours then remove. * Keep any scheduled doctor's appointment. * Implant Card - hand held device with website information given. SKIN IRRITATION: * You may experience some redness and/or swelling in the area where radiation was administered. If any skin irritation occurs, please contact your family physician. FOLLOW UP VISIT: Keep any scheduled doctor appointments.
--- NOTE | 2017-07-03 11:26 | Discharge Summary ---
Discharge Summary Date of Service Jul 03, 2017. Discharge Summary Admission Date: Jul 01, 2017 at 21:52 Discharge Date: Jul 03, 2017 Discharge Disposition: Home Principal Diagnosis: Symptomatic sinus node dysfunction Secondary Diagnoses/Problems: Please refer to hospital course below. Procedures: CT SCAN OF THE BRAIN WITHOUT IV CONTRAST CLINICAL HISTORY: Syncope. Dizziness. COMPARISON STUDY: No priors. TECHNIQUE: Unenhanced axial CT scan of the brain is performed from the vertex to the skull base. A dose lowering technique was utilized adhering to the principles of ALARA. CT DOSE: 614.27 mGy.cm FINDINGS: Brain parenchyma: There are age-related involutional changes noting mild subcortical and periventricular microangiopathic change. There is no hemorrhage, mass effect, or evidence of acute territorial ischemia by CT criteria. Conrad-white matter is preserved. No extra-axial fluid collection is seen. Ventricles, sulci, cisterns: Prominent secondary to involutional change. Intracranial vasculature: There is atherosclerotic calcification of the cavernous carotid arteries. Calvarium: Unremarkable. Sinuses and mastoids: Mild mucosal thickening is seen within the sphenoid sinuses. The remaining visualized paranasal sinuses are clear. There is a right mastoid effusion. The left mastoid air cells are well pneumatized. Orbits: The bony orbits are grossly intact. There are bilateral ocular lens implants. IMPRESSION: There is no hemorrhage, mass effect, or evidence of acute territorial ischemia by CT criteria. Electronically signed by: Joby Mccloud M.D. 07/01/2017 8:00 PM SINGLE VIEW CHEST CLINICAL HISTORY: Syncope. FINDINGS: An AP, portable, upright chest radiograph is compared to study dated 03/27/2016 and correlated with chest CT dated 03/28/2016. The examination is degraded by portable technique and apical lordotic positioning. The patient is status post midline sternotomy. The heart is top normal for projection and there is atherosclerotic calcification of the thoracic aorta. The pulmonary vasculature is noncongested. Chronic interstitial thickening is similar to previous. A calcified granuloma is again seen in the right lower lung. There is no airspace consolidation or large pleural effusion. No pneumothorax is seen. The skeletal structures are osteopenic. The bony thorax is grossly intact. IMPRESSION: No acute cardiopulmonary abnormality. Electronically signed by: Joby Mccloud M.D. 07/01/2017 8:29 PM Dictated Date/Time: 07/01/2017 8:27 PM CHEST 2 VIEWS ROUTINE CLINICAL HISTORY: EXACT TIME ORDERED Evaluate for pneumothorax and lead placement COMPARISON STUDY: 07/01/2017 FINDINGS: Interval placement of a permanent bipolar cardiac pacemaker. Leads are in good position. No evidence pneumothorax. Lungs remain clear. IMPRESSION: Interval placement of a permanent bipolar cardiac pacemaker with leads in good position. No evidence of pneumothorax. The above report was generated using voice recognition software. It may contain grammatical, syntax or spelling errors. Electronically signed by: Wilman Varner M.D. 07/03/2017 7:18 AM Consultations: SURGERY SCHEDULING COORDINATOR DR. JERRY/MINNA OGLESBY, EP DR. MULLEN Pending Studies/Follow-Up: PLEASE REFER TO HOSPITAL COURSE BELOW. Medication Reconciliation New Medications: Metoprolol Succinate (Metoprolol Succinate ER) 25 Mg Tabcr 25 MG PO QAM for 30 Days, #30 TAB 2 Refills Continued Medications: Acetaminophen (Tylenol) 325 Mg Tab 325 MG PO DIRECTED, TAB Allopurinol (Zyloprim) 300 Mg Tab 300 MG PO HS, TAB Aspirin Enteric Coated (Ecotrin Or Generic) 81 Mg Tab 81 MG PO DAILY, TAB Ezetimibe (Zetia) 10 Mg Tab 10 MG PO HS Fexofenadine Hcl (Jennifer Allergy) 180 Mg Tab 1 TAB PO DAILY PRN for Allergic Reaction for 30 Days, #30 TAB 2 Refills Fluticasone Propionate (Nasal) (Flonase Allergy Relief) 50 Mcg/Act Spr 2 SPRAYS MARILYN DAILY PRN for CONGESTION Ipratropium-Albuterol (Duoneb) 3 Ml Nebu 1 TREATMENT INH Q4H PRN for SOB/Wheezing, INHA Levothyroxine Sodium (Synthroid) 125 Mcg Tab 125 MCG PO DAILY, TAB Nitroglycerin (Nitrostat) 0.4 Mg Tab 0.4 MG UT PRN, BTL Omeprazole (Prilosec) 20 Mg Capcr 20 MG PO BID, 0 Refills Paroxetine HCl (Paroxetine) 20 Mg Tab 20 MG PO QAM Ramipril (Ramipril) 10 Mg Cap 10 MG PO HS for 90 Days, CAP 3 Refills Discontinued Medications: Metoprolol Succ (Toprol Xl) (Toprol-Xl) 25 Mg Tabcr 12.5 MG PO HS, #30 TAB Admission Information HPI (per Admitting provider): 77 tear old male who presents to the ED with lightheadedness, dizziness, and syncopal events x 2 today. Patient reports he has been having these episodes for the past year. 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 Patient is scheduled to see EP next week. Today he had two syncopal events at home which he reports is the most he has had in one day. He reports he frequently will feel lightheaded and dizzy and sometimes will pass out for a few seconds. He has never fallen to the floor. He denies chest pain, palpitations, and shortness of breath. No diaphoresis or nausea. He denies fever and chills. No abdominal pain, vomiting, or diarrhea. He denies urinary symptoms. In the ED, patient had sinus bradycardia and did have one pause however he was asymptomatic. BP is stable. Labs are unremarkable. Physical Exam (per Admitting): General Appearance: WD/WN, no apparent distress Head: normocephalic, atraumatic Eyes: normal inspection, EOMI, sclerae normal ENT: hearing grossly normal, + muffled/hoarse voice (chronic), + pertinent finding (mucous membranes moist) Neck: supple, no JVD, trachea midline Respiratory/Chest: lungs clear, normal breath sounds, no respiratory distress Cardiovascular: regular rate, rhythm, no edema, normal peripheral pulses Abdomen/GI: normal bowel sounds, non tender, soft, no organomegaly Extremities/Musculoskelatal: normal inspection, no calf tenderness, normal capillary refill Neurologic/Psych: no motor/sensory deficits, alert, normal mood/affect, oriented x 3 Skin: normal color, warm/dry Hospital Course Symptomatic sinus node dysfunction - patient presenting with lightheadedness, dizziness, and syncope x 2 - status post July 02, 2017 dual-chamber pacemaker implantation without complication, by Dr. Mullen asymptomatic PVCs - evaluated by Surgical Scheduler MINNA Oglesby and Dr. Jerry recommend to increase Metoprolol XL 25mg po daily Pacemaker check c/o Cardiology Clinic next week ff up with [facility] Cardiology Provider MINNA Alexander end of the month HX CAD stable - continue ASA and Zetia HTN - on Ramipril HYPOTHYROIDISM - TSH WNL - continue levothyroxine GERD - continue PPI JAIME - CPAP as per home settings DVT PROPHYLAXIS - SCDs DISPO d/c home today ff up with PCP in 3-5 days ff up with Surgical Scheduler in 1 week Total time spent on discharge = 30 MINUTES This includes examination of the patient, discharge planning, medication reconciliation, and communication with other providers. Discharge Instructions Discharge Instructions Date of Service Jul 03, 2017. Admission Reason for Admission: Symptomatic Bradycardia Discharge Discharge Diagnosis / Problem: Symptomatic Bradycardia Discharge Goals Goal(s): Diagnostic testing, Therapeutic intervention Activity Recommendations Activity Limitations: as noted below (No heavy exertion until re-evaluated by Surgical Scheduler) Lifting Limitations: until after follow-up appointment Exercise/Sports Limitations: until after follow-up appointment Driving or Machine Use: No driving until re-evaluated by Surgical Scheduler . Instructions / Follow-Up Instructions / Follow-Up PLEASE REVIEW YOUR NEW MEDICATION LIST AND FOLLOW INSTRUCTIONS CAREFULLY. PLEASE FOLLOW INSTRUCTIONS BY SURGERY SCHEDULING COORDINATOR REGARDING PACEMAKER WOUND CARE NOTED BELOW. ACTIVITY RECOMMENDATIONS: * Do not raise affected arm over head for 2 weeks. SPECIAL CARE INSTRUCTIONS: * If bleeding occurs, apply direct pressure to area for 5 minutes. * Call your doctor if you have severe pain, fever, drainage or bleeding at site. * Keep dressing on and dry for 48 hours then remove. * Keep any scheduled doctor's appointment. * Implant Card - hand held device with website information given. SKIN IRRITATION: * You may experience some redness and/or swelling in the area where radiation was administered. If any skin irritation occurs, please contact your family physician. CALL SURGERY SCHEDULING COORDINATOR/PRIMARY CARE PROVIDER OR RETURN TO ER IMMEDIATELY IF WITH RECURRENCE OF SYMPTOMS, INCREASING PAIN, DISCHARGE, REDNESS, BLEEDING ON THE PACEMAKER WOUND SITE. FOLLOW UP WITH DR. ROSARIO ON SATURDAY JULY 08, 2017 AT 11:00 AM. FOLLOWUP WITH [facility] NEXT WEEK. THE CLINIC WILL CALL YOU FOR THE APPOINTMENT. Current Hospital Diet Patient's current hospital diet: AHA Diet (Heart Healthy) Discharge Diet Recommended Diet: AHA Diet (Heart Healthy) Procedures Procedures Performed: PACEMAKER PLACEMENT Pending Studies Studies pending at discharge: yes List of pending studies: PACEMAKER CHECK NEXT WEEK AT [facility] Medical Emergencies . Who to Call and When: Call 911 or go to the Emergency Room if: * If at any time you feel your situation is an emergency * You have tightness or pain in your chest that does not go away with rest or Nitroglycerin * You are very short of breath even with rest . Non-Emergent Contact Non-Emergency issues call your: Primary Care Provider, Surgical Scheduler Call Non-Emergent contact if: you have a fever, your pain is not controlled, your pain is worsening, wound has increased drainage, wound has increased redness, wound has increased pain, you have any medication questions . . "Provider Documentation" section prepared by Edwin Lau. . Delivery Table Feeder Recommendations Delivery Table Feeder Recommendations: ACTIVITY RECOMMENDATIONS: * Do not raise affected arm over head for 2 weeks. SPECIAL CARE INSTRUCTIONS: * If bleeding occurs, apply direct pressure to area for 5 minutes. * Call your doctor if you have severe pain, fever, drainage or bleeding at site. * Keep dressing on and dry for 48 hours then remove. * Keep any scheduled doctor's appointment. * Implant Card - hand held device with website information given. SKIN IRRITATION: * You may experience some redness and/or swelling in the area where radiation was administered. If any skin irritation occurs, please contact your family physician. FOLLOW UP VISIT: Keep any scheduled doctor appointments.
[2017-07-03] MEDS: ASPIRIN 81 MG ECTAB PO SCH (11:29)
[2017-07-03] MEDS ORDERED: METOPROLOL SUCC 25MG EXT REL TAB PO ONE (11:30)
[2017-07-03] MEDS ORDERED: METOPROLOL SUCC 25MG EXT REL TAB PO SCH (21:00)
== END 2017-07-03 11:47 | disposition home or self-care (01) | DRG 244 ==
LOC: C.EDB 18:55 → C.2E 21:52 → ENRESERV 22:05
PROVIDERS: ADMIT Hospitalist; ATTEND Internal Medicine
PROC: 02H63JZ Insertion of Pacemaker Lead into Right Atrium, Percutaneous Approach (ICD-10-PCS; principal; 2017-07-02 11:43)
PROC: 0JH606Z Insertion of Pacemaker, Dual Chamber into Chest Subcutaneous Tissue and Fascia, Open Approach (ICD-10-PCS; principal; 2017-07-02 11:43)
PROC: 02HK3JZ Insertion of Pacemaker Lead into Right Ventricle, Percutaneous Approach (ICD-10-PCS; principal; 2017-07-02 11:43)
DX: I49.5 Sick sinus syndrome (principal); I10 Essential (primary) hypertension; I25.10 Atherosclerotic heart disease of native coronary artery without angina pectoris; J44.9 Chronic obstructive pulmonary disease, unspecified; E78.5 Hyperlipidemia, unspecified; K21.9 Gastro-esophageal reflux disease without esophagitis; M10.9 Gout, unspecified; E03.9 Hypothyroidism, unspecified; G47.33 Obstructive sleep apnea (adult) (pediatric); E66.9 Obesity, unspecified; Z79.82 Long term (current) use of aspirin; Z79.899 Other long term (current) drug therapy; Z87.891 Personal history of nicotine dependence; Z95.1 Presence of aortocoronary bypass graft; Z68.34 Body mass index [BMI] 34.0-34.9, adult; Z72.89 Other problems related to lifestyle

== ENCOUNTER 2018-06-23 05:56 | Inpatient (IN) ==
--- NOTE | 2018-06-17 11:44 | Anesthesiology Consultation ---
Date of Service June 17, 2018 Assessment & Plan (1) Encounter for pre-operative examination: Plan: H/O DIFFICULT INTUBATION, GLIDESCOPE #4 [facility] 03/2018 Chart Review Chart Review: Acceptable Risk for Surgery and Patient NOT seen in Pre Admission Testing History Surgery Operation Date: 06/23/18 10:10 Proposed Procedures p Left Carotid Endarterectomy - Bill Bartlett MD Height/Weight Height: 5 ft 11.5 in Weight: 108.862 kg Allergies Allergy/AdvReac Type Severity Reaction Status Date / Time atorvastatin AdvReac Unknown stiffness Unverified 06/03/18 14:07 Medications Home Medications Medication Instructions Recorded Confirmed Last Taken albuterol sulfate 2 puff INHALATION Q6H PRN 03/25/18 06/03/18 3 Weeks Ago ~03/04/18 allopurinol [Zyloprim] 300 mg PO HS 03/25/18 06/03/18 03/24/18 aspirin [Aspirin Low Dose] 81 mg PO HS 03/25/18 06/03/18 03/24/18 budesonide-formoterol 1 puff INHALATION BID PRN 03/25/18 06/03/18 3 Weeks Ago ~03/04/18 indomethacin 1 cap PO TID PRN 03/25/18 06/03/18 6 Months Ago ~09/22/17 ipratropium-albuterol 3 ml INHALATION QID PRN 03/25/18 06/03/18 Unknown levothyroxine 125 mcg PO QAM 03/25/18 06/03/18 03/25/18 metoprolol succinate [Toprol XL] 25 mg PO QAM 03/25/18 06/03/18 03/25/18 nitroglycerin 1 tab SUBLINGUAL UD PRN 03/25/18 06/03/18 Unknown paroxetine HCl [Paxil] 20 mg PO QAM 03/25/18 06/03/18 03/25/18 ramipril 10 mg PO QPM 03/25/18 06/03/18 03/24/18 clopidogrel 75 mg PO QAM 06/03/18 06/03/18 Unknown rosuvastatin 20 mg PO QAM 06/03/18 06/03/18 Unknown Past Medical History Medical History Ischemic stroke MARCH 25, 2018. NO DEFICITS. 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 Symptoms were resolving by the time the patient arrived in the ED. Pt had R CEA while inpatient on 03/29 Difficult airway for intubation H/o glidescope #4 with CEA 03/2018 Neck pain OCCASIONAL Obesity Sleep apnea CPAP Past Family History Family History Mother Essential hypertension Stroke Past Surgical History Surgical History History of cataract extraction with lens replacement (Chronic) cataract extraction with IOL implant and LRI left eye - 05/02/12 History of colonoscopy with polypectomy (Chronic) History of coronary artery bypass graft (Chronic) X2 VESSEL 1995 -- [facility] History of rotator cuff surgery (Chronic) Right - 2009 History of bronchoscopy History of carotid endarterectomy RIGHT (MARCH 2018) History of tonsillectomy Past Anesthesia History Difficult Airway Glidescope #4 for R CEA at [facility] 03/29/18 Social History Smoking Status: Former smoker tobacco type: cigarettes Do You Dip or Chew Tobacco: No Smoking End Date: 1985 Hx Alcohol Use: Yes Alcohol type: beer and wine alcohol intake frequency: a few times a week Hx Substance Use: No substance use type: does not use Testing Electrocardiogram Date: 03/25/19 atrial-paced rhythm with prolonged AV conduction. Abnormal ECG. HR 60. Chest X-Ray Date: 03/25/18 Findings: + NAD Echocardiogram Date: 11/14/18 EF: 55-60% The primary indication after review was deemed appropriate and the examination was performed. Normal LV chamber size with moderate concentric LVH. Normal LV systolic function without regional wall motion abnormality. Grade II diastolic dysfunction. The aortic valve is inadequately visualized, unable to accurately determine the number of leaflets. The aortic valve is mildly calcified. Mild aortic valve stenosis is present. There is no significant aortic regurgitation. MARITO(I,D) 0.95 cm MARITO(V,D) 0.98 cm Aortic valve mean PG 12.6 mmHg. * is severe by MARITO and mild by mean gradient Other Testing Remote monitoring transmission of Pacemaker, 05/31/2018 Implanted 07/02/2017. [employer]. Pacing burden: 92.3% atrial paced, 0.2% RV paced Pacemaker mode: AAIR<=> DDDR Summary: Normal dual-chamber pacemaker function. Neck CTA 03/26/18 1. Severe atheromatous changes within the distal right common carotid just proximal to the bulb. An ulcerated plaque is present 2. 50% stenosis of the right internal carotid artery origin 3. 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 70% stenosis of the left common carotid artery at the level of the bulb. 4. 42% stenosis of the proximal left internal carotid artery. 5. No evidence of vertebral artery stenosis.
[2018-06-23] MEDS ORDERED: CEFAZOLIN 2000MG 2,000 MG/15 ML SYR IV SCH (06:00)
[2018-06-23] MEDS ORDERED: LACTATED RINGER'S 1,000 ML IV SCH (06:00)
--- NOTE | 2018-06-23 06:21 | History & Physical Report ---
Date of Service June 23, 2018 Assessment & Plan (1) Stenosis of left internal carotid artery: Patient is admitted for a left CEA. I have discussed the risks options and benefits of the procedure with the patient. The patient understands the risks options and benefits and agrees to the procedure. History of Present Illness Chief Complaint: Left carotid stenosis Primary Care Provider: David Giordano DO June 01, 2018 Name: [place] [facility] [id number] : 10/03/1939 Date of Service: 06/01/2018 Vance Beck DO [address] [place] [address] Beck: We had the pleasure of seeing Mr. Ronquillo in outpatient vascular surgery clinic. As you are aware, he is a 78-year-old gentleman with a history of atrial fibrillation and diagnosed in 2011 with an abdominal aortic aneurysm approximately 3 cm in diameter, followed over the years and finally reached a diameter of 5.5 cm and is here for evaluation and possible repair. The patient reports that he is not having any abdominal problems or discomfort or pain and no back discomfort or pain. He reports that he does not have any claudication symptoms. No open wounds or ulcers. His only complaint is a rash that he has been seen and worked up. He also reports that he has been on Coumadin for his atrial fibrillation without any issues. The patient denies any shortness of breath or chest pain. The patient reports that he is able to walk a quarter mile without any issues. He is able to go up a flight of stairs without any problems. REVIEW OF SYSTEMS: A full 12-point review of systems was performed and negative unless specified above. PHYSICAL EXAMINATION: The patient is awake, alert, oriented, follows command, does not appear to be in any distress. Blood pressure is 126/80, heart rate of 92, satting 97% on room air. Chest is clear to auscultation bilaterally. No murmurs are appreciated on auscultation. The patient has palpable radial pulses bilaterally, palpable femoral pulses bilaterally, palpable DP pulses bilaterally. No open wounds on his lower extremities, he does have a lot scratches and darkened skin over his lower extremities. He reports that is from a rash is being worked up. No rashes over his groins. The patient has palpable femoral pulses bilaterally. The patient's abdomen is obese but soft, nontender. Has an abdominal hernia that is palpable around the umbilicus. IMAGING: The patient underwent a CAT scan, which shows a 5.5 cm aneurysm with a good neck. In summary, Mr. Ronquillo is a 78-year-old gentleman with abdominal aortic aneurysm at 5.5 cm. We will plan for an endovascular repair of his aneurysm after discussing both open and endovascular repair. He and his agreed and elected to undergo an endovascular repair. All the risks and benefits of the procedure and description of the procedure were completed during his clinical evaluation. All questions were answered. He is of note on Coumadin for his atrial fibrillation and we will arrange for him to be off the Coumadin prior to undergoing his operation. We also discussed with his clinical pharmacy coordinator any further need for any workup. At this time, we do not suspect that he needs any further cardiac evaluation but will consult with his clinical pharmacy coordinator. #[id number] I saw and evaluated the patient. Discussed with the resident and agree with the resident's findings and plan as documented in the resident's note. Signature Line Electronic Signature on File CC: Vance Beck, DO [address] [place] [address] * Anand Huynh MD Author Signature Dt/Tm: 06/01/2018 04:33 PM Resident Division of Vascular Surgery Electronically Reviewed/Signed by: Kt Varela Signature Dt/Tm: 06/01/2018 03:05 PM Corporate Human Resources Manager [facility] [place] [place] [address] CARSON /CLAUS Result Type: .Outpt Ltr Date of Service: June 01, 2018 00:00 EST Authorization Status: Final Subject: Outpatient Letter Author or Import Date: MD Huynh Tarik Z on June 01, 2018 14:21 EST Verified By: MD Bartlett Eugene J on June 01, 2018 15:05 EST Encounter info: [id number], [facility] [place], 06/01/2018 - 06/01/2018 Contributor system: [id number] Allergies Allergy/AdvReac Type Severity Reaction Status Date / Time atorvastatin AdvReac Unknown stiffness Verified 06/23/18 06:15 Home Medications Home Medications Medication Instructions Recorded Confirmed Type albuterol sulfate 2 puff INHALATION Q6H PRN 03/25/18 06/03/18 History allopurinol [Zyloprim] 300 mg PO HS 03/25/18 06/03/18 History aspirin [Aspirin Low Dose] 81 mg PO HS 03/25/18 06/03/18 History budesonide-formoterol 1 puff INHALATION BID PRN 03/25/18 06/03/18 History indomethacin 1 cap PO TID PRN 03/25/18 06/03/18 History ipratropium-albuterol 3 ml INHALATION QID PRN 03/25/18 06/03/18 History levothyroxine 125 mcg PO QAM 03/25/18 06/03/18 History metoprolol succinate [Toprol XL] 25 mg PO QAM 03/25/18 06/03/18 History nitroglycerin 1 tab SUBLINGUAL UD PRN 03/25/18 06/03/18 History paroxetine HCl [Paxil] 20 mg PO QAM 03/25/18 06/03/18 History ramipril 10 mg PO QPM 03/25/18 06/03/18 History clopidogrel 75 mg PO QAM 06/03/18 06/03/18 History rosuvastatin 20 mg PO QAM 06/03/18 06/03/18 History Past Med/Surg History Medical History Ischemic stroke MARCH 25, 2018. NO DEFICITS. 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 Symptoms were resolving by the time the patient arrived in the ED. Pt had R CEA while inpatient on 03/29 Difficult airway for intubation H/o glidescope #4 with CEA 03/2018 Neck pain OCCASIONAL Obesity Sleep apnea CPAP Surgical History History of cataract extraction with lens replacement (Chronic) cataract extraction with IOL implant and LRI left eye - 05/02/12 History of colonoscopy with polypectomy (Chronic) History of coronary artery bypass graft (Chronic) X2 VESSEL 1995 -- [facility] History of rotator cuff surgery (Chronic) Right - 2009 History of bronchoscopy History of carotid endarterectomy RIGHT (MARCH 2018) History of tonsillectomy Family History Mother Essential hypertension Stroke Social History Preferred Language: Marshallese Communication Ability: Effective Key Cutter Required: No Beliefs That Will Affect Care: None marital status: Current Living Situation: Spouse current occupational status: retired Other Information That Helps Us Care for You: No Feels Safe at Home: Yes Safety Concerns: Feels Safe At This Time Smoking Status: Former smoker Hx Alcohol Use: Yes Hx Substance Use: No
[2018-06-23] MEDS ORDERED: ONDANSETRON INJ 2 MG/ML 2 ML VIAL ONE (06:40)
[2018-06-23] MEDS ORDERED: LIDOCAINE HCL 2% 2 ML VIAL/AMP(20MG/ML) INFIL ONE (06:40)
[2018-06-23] MEDS ORDERED: MIDAZOLAM HCL 1 MG/ML 2ML VIAL ONE (06:40)
[2018-06-23] MEDS ORDERED: fentaNYL citrate 100 MCG/2 ML VIAL ONE ×3 (06:40→09:31)
[2018-06-23] MEDS ORDERED: DEXAMETHASONE SOD INJ 4 MG/ML VIAL ONE (06:40)
[2018-06-23] MEDS ORDERED: PROPOFOL IV EMULSION 10 MG/ML 20 ML VIAL IV ONE (06:40)
[2018-06-23] MEDS ORDERED: GLYCOPYRROLATE 0.2 MG/ML VIAL ONE ×2 (06:40→11:36)
[2018-06-23] MEDS ORDERED: NEOSTIGMINE METHYLSULFATE 5 MG/5 ML SYR ONE (06:40)
[2018-06-23] MEDS ORDERED: LABETALOL HCL IV 5 MG/ML 20ML IV ONE (07:00)
[2018-06-23] MEDS ORDERED: LIDOCAINE HCL 1% 20 ML VIAL ONE (07:21)
[2018-06-23] MEDS ORDERED: BUPIVACAINE/EPINEPHRINE 0.5% MPF 1:200,000 30 ML VIAL ONE (07:21)
[2018-06-23] MEDS ORDERED: HEPARIN (PORCINE) 1000 UNIT/ML 10 ML (CATH LAB USE ONLY) ONE (07:21)
[2018-06-23] MEDS ORDERED: THROMBIN FOR SOLN 20000 UNIT KIT ONE (07:21)
[2018-06-23] MEDS ORDERED: GELATIN SPONGE SZ 100 ONE (07:21)
[2018-06-23] MEDS ORDERED: CEFAZOLIN 250 MG/ML 1 GM VIAL ONE (07:21)
--- NOTE | 2018-06-23 07:52 | History & Physical Report ---
Date of Service June 23, 2018 Assessment & Plan (1) Stenosis of left internal carotid artery: Patient is admitted for a left CEA. I have discussed the risks options and benefits of the procedure with the patient. The patient understands the risks options and benefits and agrees to the procedure. History of Present Illness Chief Complaint: Left carotid stenosis Primary Care Provider: David Giordano DO May 31, 2018 Name: ALEXAN[place] [facility] [id number] : 1940 Date of Service: 05/31/2018 David Giordano DO [address] [place] [address] Giordano: Today, I had the pleasure of seeing Mr. Locke in outpatient vascular surgery clinic. As you are aware, he is a patient who had a symptomatic right carotid stenosis with symptoms in his left upper and lower extremities that have resolved (TIA x2). The patient was evaluated and underwent a right carotid endarterectomy by Dr. Bartlett on March 29, 2018. The patient recovered well from that and returns for followup. The patient denies any fever, chills. No issues with his wound. The patient reports that he has a history of a vocal cord tumor status post radiation and has had issues with his voice as well as swelling for over 30 years and that has not changed since his operation. He reports that he has been doing well with no new neurologic symptoms. Denies any chest pain, shortness of breath. The patient denies any weakness, numbing, tingling, facial droop, visual changes or any other concerns. At the time of evaluation, the patient underwent a CTA and returns to us today with a duplex following his carotid endarterectomy. Duplex shows a stenosis on the left side, which was noted prior to this. PHYSICAL EXAMINATION: The patient is awake, alert, oriented, follows command. Blood pressure is 146/88, heart rate is 95, temperature 97. The patient is awake, alert, oriented, follows command, does not appear to be in any distress. The patient does have a hoarse voice that he reports has been there for over 30 years. The patient's cranial nerves 2 through 12 intact. The patient is neurologically intact with no focal neuro deficit in upper and lower extremity. Strength in upper and lower extremities 5/5. Sensation is intact. IMAGING: The patient underwent a duplex ultrasound at an outside facility that confirmed a left carotid artery severe stenosis and a patent right carotid endarterectomy. PLAN: At this time, we discussed with the patient the importance of continuing his medical management with aspirin, Plavix and a statin. We also discussed with him the need for a left carotid artery endarterectomy. The patient understands and agrees with this plan and would like to schedule this procedure as soon as possible. We will proceed with the plans for a left carotid endarterectomy as soon as it is possible. The patient was warned about signs and symptoms of a stroke or TIA and inform us immediately should he develop any of these symptoms. #[id number] I saw and evaluated the patient. Discussed with the resident and agree with the resident's findings and plan as documented in the resident's note. Signature Line Electronic Signature on File CC: Elvira Alexander, PAC [address] [facility] [id number] * CC: David Giordano, [address] [facility] [id number] * Anand Huynh MD Author Signature Dt/Tm: 06/01/2018 04:33 PM Resident Division of Vascular Surgery Electronically Reviewed/Signed by: Kt Varela Signature Dt/Tm: 05/31/2018 03:51 PM Shell Trim Operator Rickie Mathew [facility] V[facility] [place], [address] [place] [address] CARSON /NIDHI Result Type: .Outpt Ltr Date of Service: May 31, 2018 00:00 EST Authorization Status: Final Subject: Outpatient Letter Author or Import Date: MD Huynh Tarik Z on May 31, 2018 14:02 EST Verified By: MD Dhruv, Bill Mansfield on May 31, 2018 15:51 EST Encounter info: [id number], [facility] [place], 05/31/2018 - 05/31/2018 Contributor system: [id number] Allergies Allergy/AdvReac Type Severity Reaction Status Date / Time atorvastatin AdvReac Unknown stiffness Verified 06/23/18 06:15 Home Medications Home Medications Medication Instructions Recorded Confirmed Type albuterol sulfate 2 puff INHALATION Q6H PRN 03/25/18 06/03/18 History allopurinol [Zyloprim] 300 mg PO HS 03/25/18 06/23/18 History aspirin [Aspirin Low Dose] 81 mg PO HS 03/25/18 06/23/18 History budesonide-formoterol 1 puff INHALATION BID PRN 03/25/18 06/03/18 History indomethacin 1 cap PO TID PRN 03/25/18 06/03/18 History ipratropium-albuterol 3 ml INHALATION QID PRN 03/25/18 06/03/18 History levothyroxine 125 mcg PO QAM 03/25/18 06/23/18 History metoprolol succinate [Toprol XL] 25 mg PO QAM 03/25/18 06/23/18 History nitroglycerin 1 tab SUBLINGUAL UD PRN 03/25/18 06/03/18 History paroxetine HCl [Paxil] 20 mg PO QAM 03/25/18 06/23/18 History ramipril 10 mg PO QPM 03/25/18 06/23/18 History clopidogrel 75 mg PO QAM 06/03/18 06/23/18 History rosuvastatin 20 mg PO QAM 06/03/18 06/23/18 History Past Med/Surg History Medical History Ischemic stroke MARCH 25, 2018. NO DEFICITS. 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 Symptoms were resolving by the time the patient arrived in the ED. Pt had R CEA while inpatient on 03/29 Difficult airway for intubation H/o glidescope #4 with CEA 03/2018 Neck pain OCCASIONAL Obesity Sleep apnea CPAP Surgical History History of cataract extraction with lens replacement (Chronic) cataract extraction with IOL implant and LRI left eye - 05/02/12 History of colonoscopy with polypectomy (Chronic) History of coronary artery bypass graft (Chronic) [facility]2 [facility] History of rotator cuff surgery (Chronic) Right - 2009 History of bronchoscopy History of carotid endarterectomy RIGHT (MARCH 2018) History of tonsillectomy Family History Mother Essential hypertension Stroke Social History Preferred Language: Lithuanian Communication Ability: Effective Coagulating Operator Required: No Beliefs That Will Affect Care: None marital status: Current Living Situation: Spouse current occupational status: retired Other Information That Helps Us Care for You: No Feels Safe at Home: Yes Safety Concerns: Feels Safe At This Time Smoking Status: Former smoker Hx Alcohol Use: Yes Hx Substance Use: No Review of Systems All systems reviewed & are unremarkable except as noted in HPI & below Physical Exam Vital Signs (Past 24 Hours): Last Vital Signs Temp 36.5 C 06/23/18 06:32 Pulse 68 06/23/18 06:32 Resp 20 06/23/18 06:32 BP 147/96 H 06/23/18 06:32 Pulse Ox 98 06/23/18 06:32
--- NOTE | 2018-06-23 07:53 | History & Physical Bridge Note ---
Date of Service June 23, 2018 History & Physical Bridge Note I have examined the patient, reviewed the History & Physical and in the interval since the performance of the History & Physical I have noted the following changes of clinical significance: no changes noted
[2018-06-23] MEDS ORDERED: HEPARIN SOD (PORCINE) 1000 UNIT/ML 10 ML VIAL ONE ×2 (08:55→11:00)
[2018-06-23] MEDS ORDERED: ATROPINE SULFATE 0.1 MG/ML 10ML SYR IV PRN (10:44)
[2018-06-23] MEDS ORDERED: PROMETHAZINE HCL 12.5 MG in SODIUM CHLORIDE 0.9% 50 ML IV PRN (10:44)
[2018-06-23] MEDS ORDERED: FLUMAZENIL 0.1 MG/1 ML 10 ML VIAL IV PRN (10:44)
[2018-06-23] MEDS ORDERED: LABETALOL HCL IV 5 MG/ML 20ML IV PRN (10:44)
[2018-06-23] MEDS ORDERED: fentaNYL citrate 100 MCG/2 ML VIAL IV PRN (10:44)
[2018-06-23] MEDS ORDERED: ePHEDrine sulfate 50 MG/ML AMP IV PRN (10:44)
[2018-06-23] MEDS ORDERED: ONDANSETRON INJ 2 MG/ML 2 ML VIAL IV PRN (10:44)
[2018-06-23] MEDS ORDERED: NALOXONE HCL 0.4 MG/1 ML VIAL/CARP IV PRN (10:44)
[2018-06-23] MEDS ORDERED: NITROGLYCERIN 5 MG/ML 10 ML VIAL ONE (11:06)
[2018-06-23] MEDS ORDERED: PHENYLEPHRINE HCL 10 MG/ML VIAL ONE (11:07)
--- NOTE | 2018-06-23 11:09 | Post Operative Brief Note ---
Immediate Post Op Note v1 Date of Surgery June 23, 2018 Pre & Post Diagnosis Operation Date: 06/23/18 08:00 Pre-Op Diagnosis: Left Internal Carotid Artery Stenosis Post-Op Diagnosis: Left Internal Carotid Artery Stenosis Procedure Operation Date: 06/23/18 08:00 Actual Procedures p Left Carotid Endarterectomy with patch(Left) - Bill Bartlett MD Surgeon Bill Bartlett MD Franchise Sales Manager Tavo Huynh MD L.Minarchick,PAC Estimated Blood Loss 200 Findings Consistent with Post-Op Diagnosis Anesthesia Type General Complications none Disposition Accompanied Patient To Recovery: No Disposition: Recovery Room
[2018-06-23] MEDS ORDERED: ROCURONIUM BROMIDE 10 MG/ML 5 ML VIAL ONE (11:21)
--- NOTE | 2018-06-23 12:02 | Operative Report ---
Post Operative Report Pre & Post Diagnosis Operation Date: 06/23/18 08:00 Pre-Op Diagnosis: Left Internal Carotid Artery Stenosis Post-Op Diagnosis: Left Internal Carotid Artery Stenosis Procedure Operation Date: 06/23/18 08:00 Actual Procedures p Left Carotid Endarterectomy(Left) - Bill Bartlett MD Surgeon Dr. Dhruv Huynh MD Information Technology Consultant Tavo Huynh MD L.Minarchick,PAC Estimated Blood Loss 200 Findings Consistent with Post-Op Diagnosis Specimens Left internal carotid artery plaque Anesthesia Type General Complications none Disposition Accompanied Patient To Recovery: Yes Disposition: Recovery Room Indications Severe left carotid artery disease. Description of Procedure The patient was brought to the operating room, where an arterial line was placed and general anesthesia was secured. The patient was identified and a timeout performed. The left neck was prepped and sterilely draped. An oblique incision was made along the anterior border of the right sternocleidomastoid muscle. The platysma was divided and dissection was carried down to the carotid sheath. The facial vein was doubly ligated and divided exposing the carotid bifurcation. There was a small amount of bleeding from the medial branch of the facial that was suture ligated with 3-0 silk suture. The vagus nerve and XII nerve were identified and kept free from dissection and retraction. The internal, external, and common carotid arteries were dissected free proximally [place] [address] [place] of Heparin was given intravenously. The external carotid as well as superior thyroid vessels were encircled with vessel loops and add to silk tie. Once the heparin was allowed to circulate for approximately 5 minutes, clamps were placed starting with the internal carotid and common carotid and external carotid. An anterior arteriotomy was made on the common carotid artery using an 11 blade. Bear scissors was used to extend the arteriotomy through the plaque on to the distal soft internal carotid artery. The plaque was heavily calcified, ulcerated, and nearly occlusive. The common carotid artery had significant disease and the webbing in the movement of it and the arteriotomy w as extended distally to include a good portion of the common carotid until a segment free of plaque was noted at the proximal end of the common carotid. A shunt was then inserted into the into the internal carotid artery and revealed good backbleeding. The proximal end of the shunt was then inserted into the common carotid artery and secured in place. The Doppler attached to the shunt was turned on and revealed good flow through the shunt. We had some difficulty securing the shunt in place however we were able to successfully place it proceed with the case. A Floyd elevator was used to create an endarterectomy plane. The proximal endpoint was created using Bear scissors as well as a distal endpoint was created with the Bear scissors. The plaque was freed out of the external carotid artery.With downward retraction on the plaque, a smooth distal endpoint was created. All debris was meticulously debrided from the inside of the lumen and confirmed with instillation of heparinized saline. Two 7-0 proleine tacking sutures were placed the proximal end of the internal carotid artery to tack down the intima. Once endarterectomy was completed, bovine pericardial patch was then sewn into internal carotid artery using a 6-0 Prolene sutures starting at the internal carotid artery corner of the arteriotomy. A second 6-0 Prolene suture was then used at the common carotid artery corner and the patch closure was completed with a four-quadrant suturing method. Before the patch was completed, the shunt was pulled and all the arteries were backbleed extruding any air and debris. The patch was then completed. The external carotid and superior thyroid loops was removed first, followed by the common carotid artery clamp, and finally the internal carotid artery clamp, restoring blood flow to the brain. Patient did have some oozing and multiple 6-0 Prolene sutures were used to achieve hemostasis as well as thrombin soaked gel foam. Meticulous hemostasis was secured. The wound was then closed in multiple layers using 3-0 Vicryl suture then a 4-0 Vicryl subcutaneous layer closing the skin. Dermabond was applied over the incision. The patient tolerated the procedure well and was extubated on table. The patient was moving all four extremities and his tongue was midline to command prior to and upon transfer to the recovery room. Dr. Bartlett was scrubbed and present for the entirety of the case. I attest to the content of the Intraoperative Record and any orders documented therein. Any exceptions are noted below.
[2018-06-23] MEDS ORDERED: LARYING-O-JET KIT (LTA) ONE (12:46)
--- NOTE | 2018-06-23 13:18 | Anesthesiology Progress Note ---
Date of Service June 23, 2018 Anesthesia Post Procedure Vital Signs Vital Signs: Temp Pulse Pulse Pulse Resp BP BP 06/23/18 13:00 60 15 106/46 L 06/23/18 12:55 60 15 99/43 L 06/23/18 12:53 60 14 98/47 L 06/23/18 12:50 64 14 83/48 L 06/23/18 12:45 60 15 92/46 L 06/23/18 12:40 60 13 102/48 L 06/23/18 12:35 61 14 90/50 L 06/23/18 12:33 60 12 96/45 L 06/23/18 12:30 60 14 83/37 L 06/23/18 12:25 60 14 107/45 L 06/23/18 12:21 60 16 97/47 L 06/23/18 12:20 60 16 96/47 L 06/23/18 12:15 60 14 112/49 L 06/23/18 12:10 62 12 121/51 L 06/23/18 12:05 70 13 123/49 L 06/23/18 12:00 60 13 125/50 L 06/23/18 11:56 60 14 121/51 L 06/23/18 11:55 60 16 105/58 L 06/23/18 11:51 36.1 C L 61 61 12 134/52 L 06/23/18 11:50 61 12 06/23/18 06:32 36.5 C 68 20 113/56 L BP Pulse Ox 06/23/18 13:00 98 06/23/18 12:55 98 06/23/18 12:53 98 06/23/18 12:50 99 06/23/18 12:45 99 06/23/18 12:40 99 06/23/18 12:35 100 06/23/18 12:33 100 06/23/18 12:30 100 06/23/18 12:25 100 06/23/18 12:21 100 06/23/18 12:20 100 06/23/18 12:15 100 06/23/18 12:10 100 06/23/18 12:05 100 06/23/18 12:00 100 06/23/18 11:56 100 06/23/18 11:55 100 06/23/18 11:51 134/52 L 100 06/23/18 11:50 100 06/23/18 06:32 147/96 H 98 Pain Intensity Left Neck: Pain Intensity: 0 Notes Mental Status: alert / awake / arousable Patient Amnestic to Procedure: Yes Nausea / Vomiting: adequately controlled Pain: adequately controlled Airway Patency, RR, SpO2: stable & adequate BP & HR: stable & adequate Hydration State: stable & adequate Anesthetic Complications: no major complications apparent
[2018-06-23] MEDS ORDERED: MoRPHine SULFATE 4 MG/ML 1 ML CARP\\VIAL IV PRN (13:38)
[2018-06-23] MEDS ORDERED: ALBUT/IPRATROP 3MG/0.5MG NEB 3 ML VIAL INH PRN (13:38)
[2018-06-23] MEDS ORDERED: NITROGLYCERIN SL 0.4 MG/TAB TAB SL PRN (13:38)
[2018-06-23] MEDS ORDERED: ALBUTEROL HFA 8 GM INHALER INH PRN (13:38)
[2018-06-23] MEDS ORDERED: OXYCODONE/ACETAMINOPHEN 5mg/325mg TAB PO PRN (13:38)
[2018-06-23] MEDS ORDERED: INDOMETHACIN 25 MG CAP PO PRN (13:38)
[2018-06-23] MEDS ORDERED: BUDESONIDE/FORMOTEROL FUMARATE 160/4.5 60 PUFFS/INHALER INH PRN (13:38)
[2018-06-23] MEDS ORDERED: D5W AND 1/2NSS 1,000 ML IV SCH (13:55)
--- NOTE | 2018-06-23 15:20 | Critical Care Consultation ---
Date of Consultation June 23, 2018 Assessment & Plan (1) Stenosis of left internal carotid artery: Reason Critically Ill: 78-year-old male postop day of surgery for left carotid endarterectomy with patch Neuro CAM ICU: Negative Anxietycontinue Paxil Cardiac Stenosis of left internal carotid arterystatus post left carotid endarterectomy with patch, EBL 200 -Continue aspirin, Plavix, Crestor -A-line for continuous monitoring of BP, goal SBP less than 160 -Monitor in ICU overnight Hypertension/CAD-continue aspirin, Plavix, metoprolol, Crestor, enalapril -Nitro as needed for chest pain -SBP control as noted above Respiratory COPD/OSAcontinue albuterol, budesonide -CPAP at night -A nebs as needed GI GERD-no regimen and home med list, monitor for need for PPI RENAL/Lytes -Monitor with routine BMPs Theodore removed postop, monitor for urine output ENDO Hypothyroidismcontinue Synthroid HEME EBL 200, monitor with a.m. CBC ID Received preoperative Ancef, no indication at this time LINES/IV ACCESS - Peripheral IVs DVT PROPHYLAXIS - SCDs, holding anticoagulation for status post endarterectomy Supervising Physician Co-Signing Physician Notes I have personally evaluated and examined this patient. I agree with assessment and plan of Antoinette POSADA. 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 Required phenylephrine in OR currently not hypertensive nor hypotensive. History of Present Illness Attending Physician: Bill Bartlett MD History of Present Illness Mr. Barboza is a 78-year-old male with past medical history of stenosis of left internal carotid artery in which he presents postoperatively day of surgery for left carotid endarterectomy with patch. Other history includes JAIME on CPAP, CVA, anxiety, CAD, hypertension, GERD, COPD, laryngeal cancer with radiation treatment, pacemaker. On arrival to the ICU he is alert and oriented x4, left neck incision is approximated without drainage and minimal erythema. Only complaint is a mild headache, he denies any neurological changes. He denies wheezing or shortness of breath, voice is hoarse but states this is his baseline due to previous radiation treatment. Patient is hemodynamically stable, a line for continuous monitoring and tight blood pressure control. We will continue to monitor overnight in ICU. Allergies Allergy/AdvReac Type Severity Reaction Status Date / Time atorvastatin AdvReac Unknown stiffness Verified 06/23/18 06:15 Home Medications Home Medications Medication Instructions Recorded Confirmed Type albuterol sulfate 2 puff INHALATION Q6H PRN 03/25/18 06/03/18 History allopurinol [Zyloprim] 300 mg PO HS 03/25/18 06/23/18 History aspirin [Aspirin Low Dose] 81 mg PO HS 03/25/18 06/23/18 History budesonide-formoterol 1 puff INHALATION BID PRN 03/25/18 06/03/18 History indomethacin 1 cap PO TID PRN 03/25/18 06/03/18 History ipratropium-albuterol 3 ml INHALATION QID PRN 03/25/18 06/03/18 History levothyroxine 125 mcg PO QAM 03/25/18 06/23/18 History metoprolol succinate [Toprol XL] 25 mg PO QAM 03/25/18 06/23/18 History nitroglycerin 1 tab SUBLINGUAL UD PRN 03/25/18 06/03/18 History paroxetine HCl [Paxil] 20 mg PO QAM 03/25/18 06/23/18 History ramipril 10 mg PO QPM 03/25/18 06/23/18 History clopidogrel 75 mg PO QAM 06/03/18 06/23/18 History rosuvastatin 20 mg PO QAM 06/03/18 06/23/18 History oxycodone-acetaminophen [Percocet] 1 tab PO Q6H PRN #10 tab 06/24/18 Rx Patient History Medical History Ischemic stroke MARCH 25, 2018. NO DEFICITS. 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 Symptoms were resolving by the time the patient arrived in the ED. Pt had R CEA while inpatient on 03/29 Difficult airway for intubation H/o glidescope #4 with CEA 03/2018 Neck pain OCCASIONAL Obesity Sleep apnea CPAP Surgical History History of cataract extraction with lens replacement (Chronic) cataract extraction with IOL implant and LRI left eye - 05/02/12 History of colonoscopy with polypectomy (Chronic) History of coronary artery bypass graft (Chronic) [facility]2 [facility] History of rotator cuff surgery (Chronic) Right - 2009 History of bronchoscopy History of carotid endarterectomy RIGHT (MARCH 2018) History of tonsillectomy Family History Mother Essential hypertension Stroke Social History Preferred Language: [place] Communication Ability: Effective Inside Account Representative Required: No Beliefs That Will Affect Care: None marital status: Current Living Situation: Spouse current occupational status: retired Other Information That Helps Us Care for You: No Feels Safe at Home: Yes Safety Concerns: Feels Safe At This Time Smoking Status: Former smoker Hx Alcohol Use: Yes Hx Substance Use: No Review of Systems Review of 12 systems negative except for HPI. See above Physical Exam Vital Signs (Past 24 Hours): Last Vital Signs Temp 36.4 C L 06/23/18 13:00 Pulse 60 06/23/18 14:00 Resp 20 06/23/18 14:00 BP 104/52 L 06/23/18 14:00 Pulse Ox 99 06/23/18 14:00 Constitutional: Patient calm and cooperative, appears comfortable, vitals within normal limits Eyes: PERRLA, no visual changes ENMT: Speech is hoarse, mucosal membranes moist, uvula midline, trachea midline Neck: Minimal swelling at left suture site, trachea midline, no wheezing auscultated over trachea Respiratory: Lungs clear to auscultation bilaterally in all lobes, respiratory effort unlabored, symmetrical chest wall movement Cardiovascular: Paced rhythm on monitor at 60, radial and pedal pulses +2 bilaterally, good peripheral perfusion, S1-S2 auscultated Gastrointestinal (Abdomen): Abdomen round, soft, nontender, active bowel sounds auscultated in all 4 quadrants Musculoskeletal: Strength +5 in all 4 extremities Skin: Skin intact, surgical site well approximated Neurologic: Alert and oriented x4, strength equal bilaterally, PERRLA Results & Data Laboratory Results Laboratory Results - last 24 hr 06/23/18 06:13 Blood Type O Positive Antibody Screen NEGATIVE Medications Administered Home Medications albuterol sulfate 2 puff INHALATION Q6H PRN 03/25/18 [History Confirmed 06/03/18] allopurinol [Zyloprim] 300 mg PO HS 03/25/18 [History Confirmed 06/23/18] aspirin [Aspirin Low Dose] 81 mg PO HS 03/25/18 [History Confirmed 06/23/18] budesonide-formoterol 1 puff INHALATION BID PRN 03/25/18 [History Confirmed 06/03/18] indomethacin 1 cap PO TID PRN 03/25/18 [History Confirmed 06/03/18] ipratropium-albuterol 3 ml INHALATION QID PRN 03/25/18 [History Confirmed 06/03/18] levothyroxine 125 mcg PO QAM 03/25/18 [History Confirmed 06/23/18] metoprolol succinate [Toprol XL] 25 mg PO QAM 03/25/18 [History Confirmed ] nitroglycerin 1 tab SUBLINGUAL UD PRN 03/25/18 [History Confirmed 06/03/18] paroxetine HCl [Paxil] 20 mg PO QAM 03/25/18 [History Confirmed 06/23/18] ramipril 10 mg PO QPM 03/25/18 [History Confirmed 06/23/18] clopidogrel 75 mg PO QAM 06/03/18 [History Confirmed 06/23/18] rosuvastatin 20 mg PO QAM 06/03/18 [History Confirmed 06/23/18] Active Medications Albuterol (Duoneb) 3 ml INH QIDR PRN PRN Reason: Shortness Of Breath Stop: 07/23/18 13:37 Albuterol (Ventolin Hfa) 2 puffs INH Q6H PRN PRN Reason: Shortness Of Breath Or Wheezing Stop: 07/23/18 13:37 Allopurinol (Zyloprim) 300 mg PO HS ON LICENSE OF [facility] Stop: 07/23/18 20:59 Aspirin (Ecotrin Ectab) 81 mg PO HS ON LICENSE OF [facility] Stop: 07/23/18 20:59 Budesonide/Formoterol Fumarate (Symbicort 160mcg/4.5mcg) 1 puffs INH BID PRN PRN Reason: Shortness Of Breath Or Wheezing Stop: 07/23/18 13:37 Clopidogrel Bisulfate (Plavix) 75 mg PO QAM ON LICENSE OF [facility] Stop: 07/24/18 08:59 Enalapril Maleate (Vasotec) 40 mg PO PM ON LICENSE OF [facility] Stop: 07/23/18 20:59 Dextrose/Sodium Chloride (D5w And 1/2nss) 1,000 mls @ 125 mls/hr IV .Q8H ON LICENSE OF [facility] Stop: 07/23/18 13:54 Last Admin: 06/23/18 14:15 Dose: 125 mls/hr Documented by: Indomethacin (Indocin) 25 mg PO TID PRN PRN Reason: Pain Stop: 07/23/18 13:37 Levothy[facility]ine S[facility]) [facility] Stop: 07/24/18 06:29 Metoprolol Succinate (Toprol Xl) 25 mg PO [facility] Stop: 07/24/18 08:59 Morphine Sulfate (Morphine Sulfate) 1 - 4 mg IV Q2H PRN PRN Reason: Severe Pain Stop: 07/07/18 13:37 Nitroglycerin (Nitrostat) 0.4 mg SL UD PRN PRN Reason: Chest Pain Stop: 07/23/18 13:37 Oxycodone/Acetaminophen (Percocet 5mg/325mg) 1 tab PO Q4H PRN PRN Reason: Moderate Pain Stop: 07/07/18 13:37 Last Admin: 06/23/18 14:15 Dose: 1 tab Documented by: Par[facility] ([facility]axil) [facility] Stop: 07/24/18 08:59 Rosuvastatin Calcium (Crestor) [facility] Stop: 07/24/18 08:59
[2018-06-23] MEDS ORDERED: ENALAPRIL MALEATE 10 MG TAB PO SCH (21:00)
[2018-06-23] MEDS ORDERED: ASPIRIN 81 MG ECTAB PO SCH (21:00)
[2018-06-23] MEDS ORDERED: ALLOPURINOL 300 MG TAB PO SCH (21:00)
[2018-06-23] MEDS ORDERED: SODIUM CHLORIDE 0.65% NA SOLN 45 ML (OCEAN) PRN (21:09)
[2018-06-23] MEDS: SODIUM CHLORIDE 0.65% NA SOLN 45 ML (OCEAN) ONE ×2 (21:36→21:38)
[2018-06-24 04:51] LABS: Basophils # (auto) 0.01 K/uL (0-0.2); Basophils % (auto) 0.1 %; Hematocrit (blood only) 28.8 % (42-52); Hemoglobin 9.5 g/dL (14.0-18.0); Immature Granulocytes # (auto) 0.03 K/uL (0.00-0.02); Immature Granulocytes % (auto) 0.3 %; Lymphocytes # (auto) 1.21 K/uL (1.2-3.4); Lymphocytes % (auto) 10.9 %; Mean Corpuscular Volume 93.8 fL (80-100); Mean Platelet Volume 8.8 fL (7.4-10.4); Monocytes # (auto) 1.11 K/uL (0.11-0.59); Neutrophils # (auto) 8.76 K/uL (1.4-6.5); Neutrophils % (auto) 78.7 %; Platelet Count 225 K/uL (130-400); RDW Coefficient of Variation 14.2 % (11.5-14.5); RDW Standard Deviation 48.4 fL (36.4-46.3); Red Blood Count 3.07 M/uL (4.7-6.1); White Blood Count 11.12 K/uL (4.8-10.8)
[2018-06-24 05:14] LABS: BUN Creatinine Ratio 17.8 (10-20); Calcium 7.9 mg/dl (8.5-10.1); Creatinine Clr Calc Pharmacy 72.4 ml/min; Est GFR (African American) 77.9; Est GFR (Non-African American) 67.2; Magnesium 2.1 mg/dl (1.8-2.4); Potassium 4.6 mmol/L (3.5-5.1)
[2018-06-24 05:16] LABS: Phosphorus 2.9 mg/dl (2.5-4.9)
[2018-06-24] MEDS ORDERED: LEVOTHYROXINE SODIUM 125 MCG TABLET PO SCH (06:30)
--- NOTE | 2018-06-24 07:44 | Surgery Progress Note ---
Date of Service June 24, 2018 Assessment & Plan (1) Stenosis of left internal carotid artery: Patient is doing well at this time. He will be discharged home today. Subjective This patient is postoperative day 1 for left carotid endarterectomy. He is awake alert without complaints. He denies any focal neurologic deficits. Physical Exam Vital Signs (Past 24 Hours): Last Vital Signs Temp 36.7 C 06/24/18 04:00 Pulse 83 06/24/18 06:30 Resp 20 06/24/18 06:30 BP 121/54 L 06/24/18 06:30 Pulse Ox 95 06/24/18 06:30 He still has his preoperative hoarseness which was chronic from neck radiation. Neck has some mild swelling the left side postsurgical. He has no focal neurological deficits. Trachea is midline.
--- NOTE | 2018-06-24 07:51 | Communication Note ---
Date of Service: June 24, 2018 Hemoglobin 9.5 this morning. This secondary to blood loss anemia from surgery.
[2018-06-24] MEDS ORDERED: ROSUVASTATIN CALCIUM 20 MG TAB PO SCH (09:00)
[2018-06-24] MEDS ORDERED: CLOPIDOGREL BISULFATE 75 MG TAB PO SCH (09:00)
[2018-06-24] MEDS ORDERED: PARoxetine HCl 20 MG TAB PO SCH (09:00)
[2018-06-24] MEDS ORDERED: METOPROLOL SUCC 25MG EXT REL TAB PO SCH (09:00)
--- NOTE | 2018-06-24 10:21 | Critical Care Progress Note ---
Date of Service June 24, 2018 Assessment & Plan (1) Stenosis of left internal carotid artery: Reason Critically Ill: 78-year-old male postop day of surgery for left carotid endarterectomy with patch Neuro [facility] ICU: Negative Anxietycontinue Paxil Cardiac Stenosis of left internal carotid arterystatus post left carotid endarterectomy with patch, EBL 200 -Continue aspirin, Plavix, Crestor -A-line for continuous monitoring of BP, goal SBP less than 160 -Monitor in ICU overnight Hypertension/CAD-continue aspirin, Plavix, metoprolol, Crestor, enalapril -Nitro as needed for chest pain -SBP control as noted above Respiratory COPD/OSAcontinue albuterol, budesonide -CPAP at night -A nebs as needed GI GERD-no regimen and home med list, monitor for need for PPI RENAL/Lytes -Monitor with routine BMPs Theodore removed postop, monitor for urine output ENDO Hypothyroidismcontinue Synthroid HEME EBL 200, monitor with a.m. CBC ID Received preoperative Ancef, no indication at this time LINES/IV ACCESS - Peripheral IVs DVT PROPHYLAXIS - SCDs, holding anticoagulation for status post endarterectomy Supervising Physician Co-Signing Physician Notes Patient was discussed in multidisciplinary rounds. I discussed the patient with Dr. Dhruv Bartlett will discharge the patient today. Subjective Patient feels improved. Tolerated breakfast this morning. Has some mild urinary retention however was able to decrease his bladder volume from 900-500 with a voiding trial. His headache is completely resolved. Physical Exam Vital Signs (Past 24 Hours): Last Vital Signs Temp 36.7 C 06/24/18 09:47 Pulse 68 06/24/18 09:47 Resp 18 06/24/18 09:47 BP 152/62 H 06/24/18 09:47 Pulse Ox 98 06/24/18 09:47 General: Alert. nontoxic. Skin: Warm, dry, Head: Atraumatic Ears, nose, mouth and throat: airway patent, incision clean dry and intact Cardiovascular: Normal peripheral perfusion Respiratory: no respiratory distress Gastrointestinal: Non distended Musculoskeletal: No deformity Results & Data Laboratory Results 06/24/18 06/24/18 06/23/18 Range/Units 04:35 04:35 23:40 WBC 11.12 H (4.8-10.8) K/uL RBC 3.07 L (4.7-6.1) M/uL Hgb 9.5 L (14.0-18.0) g/dL Hct 28.8 L (42-52) % MCV 93.8 (80-100) fL MCH 30.9 (25-34) pg MCHC 33.0 (32-36) g/dL RDW Std Deviation 48.4 H (36.4-46.3) fL RDW Coeff of Sharda 14.2 (11.5-14.5) % Plt Count 225 (130-400) K/uL MPV 8.8 (7.4-10.4) fL Immature Gran % (Auto) 0.3 % Neut % (Auto) 78.7 % Lymph % (Auto) 10.9 % Dillon % (Auto) 10.0 % Eos % (Auto) 0.0 % Baso % (Auto) 0.1 % Immature Gran # (Auto) 0.03 H (0.00-0.02) K/uL Neut # (Auto) 8.76 H (1.4-6.5) K/uL Lymph # (Auto) 1.21 (1.2-3.4) K/uL Dillon # (Auto) 1.11 H (0.11-0.59) K/uL Eos # (Auto) 0.00 (0-0.5) K/uL Baso # (Auto) 0.01 (0-0.2) K/uL Sodium 134 L (136-145) mmol/L Potassium 4.6 (3.5-5.1) mmol/L Chloride 102 (98-107) mmol/L Carbon Dioxide 25 (21-32) mmol/L Anion Gap 7.0 (3-11) BUN 19 H (7-18) mg/dl Creatinine 1.05 (0.6-1.4) mg/dl Est Cr Clr Drug Dosing 72.4 ml/min Est GFR ( Amer) 77.9 Est GFR (Non-Af Amer) 67.2 BUN/Creatinine Ratio 17.8 (10-20) Glucose 113 H (70-99) mg/dl POC Glucose 130 H (70-99) Calcium 7.9 L (8.5-10.1) mg/dl Phosphorus 2.9 (2.5-4.9) mg/dl Magnesium 2.1 (1.8-2.4) mg/dl Nasal Screen MRSA (PCR) (Negative) 06/23/18 06/23/18 Range/Units 20:18 14:05 WBC (4.8-10.8) K/uL RBC (4.7-6.1) M/uL Hgb (14.0-18.0) g/dL Hct (42-52) % MCV (80-100) fL MCH (25-34) pg MCHC (32-36) g/dL RDW Std Deviation (36.4-46.3) fL RDW Coeff of Sharda (11.5-14.5) % Plt Count (130-400) K/uL MPV (7.4-10.4) fL Immature Gran % (Auto) % Neut % (Auto) % Lymph % (Auto) % Dillon % (Auto) % Eos % (Auto) % Baso % (Auto) % Immature Gran # (Auto) (0.00-0.02) K/uL Neut # (Auto) (1.4-6.5) K/uL Lymph # (Auto) (1.2-3.4) K/uL Dillon # (Auto) (0.11-0.59) K/uL Eos # (Auto) (0-0.5) K/uL Baso # (Auto) (0-0.2) K/uL Sodium (136-145) mmol/L Potassium (3.5-5.1) mmol/L Chloride (98-107) mmol/L Carbon Dioxide (21-32) mmol/L Anion Gap (3-11) BUN (7-18) mg/dl Creatinine (0.6-1.4) mg/dl Est Cr Clr Drug Dosing ml/min Est GFR ( Amer) Est GFR (Non-Af Amer) BUN/Creatinine Ratio (10-20) Glucose (70-99) mg/dl POC Glucose 236 H (70-99) Calcium (8.5-10.1) mg/dl Phosphorus (2.5-4.9) mg/dl Magnesium (1.8-2.4) mg/dl Nasal Screen MRSA (PCR) Negative (Negative)
--- NOTE | 2018-06-24 11:36 | Anesthesiology Progress Note ---
Date of Service June 24, 2018 Anesthesia Post Procedure Vital Signs Vital Signs: Temp Pulse Pulse Pulse Resp BP BP 06/24/18 09:47 36.7 C 62 68 18 06/24/18 07:32 63 18 118/77 06/24/18 07:00 62 19 98/44 L 06/24/18 06:30 83 20 121/54 L 06/24/18 06:20 137/55 L 06/24/18 06:01 71 22 146/51 H 06/24/18 05:30 80 20 114/86 06/24/18 05:16 75 21 111/47 L 06/24/18 04:30 64 17 132/46 L 06/24/18 04:00 36.7 C 66 16 139/48 L 06/24/18 03:30 63 19 104/38 L 06/24/18 03:00 71 17 95/39 L 06/24/18 02:30 68 17 125/51 L 06/24/18 02:00 67 18 130/50 L 06/24/18 01:30 67 18 132/52 L 06/24/18 01:00 70 18 123/50 L 06/24/18 00:32 66 19 120/42 L 06/24/18 00:00 36.6 C 68 21 119/53 L 06/23/18 23:36 72 14 142/46 H 06/23/18 23:00 67 17 140/53 L 06/23/18 22:30 65 16 145/57 H 06/23/18 22:00 66 17 130/48 L 06/23/18 21:30 67 19 155/69 H 06/23/18 21:25 68 20 154/64 H 06/23/18 21:00 65 17 178/66 H 06/23/18 20:30 61 15 104/38 L 06/23/18 20:01 60 18 107/56 L 06/23/18 20:00 63 06/23/18 19:30 60 17 147/47 H 06/23/18 19:00 36.7 C 61 16 123/47 L 06/23/18 18:30 62 16 119/49 L 06/23/18 17:02 62 18 06/23/18 17:00 63 20 152/62 H 06/23/18 16:30 78 14 67/39 L 06/23/18 16:00 60 0 L 82/40 L 06/23/18 15:08 61 133/47 L 06/23/18 14:30 60 15 107/52 L 06/23/18 14:00 60 20 104/52 L 06/23/18 13:45 60 7 L 74/46 L 06/23/18 13:30 60 13 06/23/18 13:15 60 100/55 L 06/23/18 13:05 60 15 89/48 L 06/23/18 13:00 36.4 C L 60 15 106/46 L 06/23/18 12:55 60 15 99/43 L 06/23/18 12:53 60 14 98/47 L 06/23/18 12:50 64 14 83/48 L 06/23/18 12:45 60 15 92/46 L 06/23/18 12:40 60 13 102/48 L 06/23/18 12:35 61 14 90/50 L 06/23/18 12:33 60 12 96/45 L 06/23/18 12:30 60 14 83/37 L 06/23/18 12:25 60 14 107/45 L 06/23/18 12:21 60 16 97/47 L 06/23/18 12:20 60 16 96/47 L 06/23/18 12:15 60 14 112/49 L 06/23/18 12:10 62 12 121/51 L 06/23/18 12:05 70 13 123/49 L 06/23/18 12:00 60 13 125/50 L 06/23/18 11:56 60 14 121/51 L 06/23/18 11:55 60 16 105/58 L 06/23/18 11:51 36.1 C L 61 61 12 134/52 L 06/23/18 11:50 61 12 BP BP Pulse Ox 06/24/18 09:47 134/48 L 152/62 H 98 06/24/18 07:32 98 06/24/18 07:00 93 06/24/18 06:30 95 06/24/18 06:20 96 06/24/18 06:01 06/24/18 05:30 06/24/18 05:16 97 06/24/18 04:30 97 06/24/18 04:00 94 06/24/18 03:30 94 06/24/18 03:00 95 06/24/18 02:30 93 06/24/18 02:00 96 06/24/18 01:30 95 06/24/18 01:00 92 06/24/18 00:32 93 06/24/18 00:00 95 06/23/18 23:36 97 06/23/18 23:00 95 06/23/18 22:30 96 06/23/18 22:00 96 06/23/18 21:30 97 06/23/18 21:25 97 06/23/18 21:00 98 06/23/18 20:30 95 06/23/18 20:01 100 06/23/18 20:00 06/23/18 19:30 100 06/23/18 19:00 98 06/23/18 18:30 98 06/23/18 17:02 152/62 H 100 06/23/18 17:00 100 06/23/18 16:30 06/23/18 16:00 100 06/23/18 15:08 06/23/18 14:30 100 06/23/18 14:00 99 06/23/18 13:45 100 06/23/18 13:30 134/48 L 102/48 L 99 06/23/18 13:15 06/23/18 13:05 98 06/23/18 13:00 98 06/23/18 12:55 98 06/23/18 12:53 98 06/23/18 12:50 99 06/23/18 12:45 99 06/23/18 12:40 99 06/23/18 12:35 100 06/23/18 12:33 100 06/23/18 12:30 100 06/23/18 12:25 100 06/23/18 12:21 100 06/23/18 12:20 100 06/23/18 12:15 100 06/23/18 12:10 100 06/23/18 12:05 100 06/23/18 12:00 100 06/23/18 11:56 100 06/23/18 11:55 100 06/23/18 11:51 134/52 L 100 06/23/18 11:50 100 Pain Intensity Left Neck: Pain Intensity: 0 Notes Mental Status: alert / awake / arousable and participated in evaluation Patient Amnestic to Procedure: Yes Nausea / Vomiting: adequately controlled Pain: adequately controlled Airway Patency, RR, SpO2: stable & adequate BP & HR: stable & adequate Hydration State: stable & adequate Anesthetic Complications: no major complications apparent and Pt Satisfied with anesthetic care
== END 2018-06-24 10:38 | disposition home or self-care (01) | DRG 38 ==
LOC: ASU 05:56 → 1E 13:35

== ENCOUNTER 2019-08-19 22:02 | Inpatient (IN) ==
[2019-08-19] MEDS ORDERED: ONDANSETRON INJ 2 MG/ML 2 ML VIAL IV STA (22:07)
[2019-08-19] MEDS ORDERED: ONDANSETRON INJ 2 MG/ML 2 ML VIAL ONE (22:08)
[2019-08-19] MEDS ORDERED: OPTIRAY 320 125ml IV PRN (22:21)
--- NOTE | 2019-08-19 22:32 | Emergency Department Note ---
History of Present Illness General Chief Complaint: Chest Pain Stated Complaint: CHEST PAIN Time Seen by Provider: 08/19/19 22:09 Source: patient Mode of arrival: ambulatory Limitations: language barrier (Patient has a tracheostomy and cannot speak.) History of Present Illness Provider Complaint: chest pain Onset (ago): hour(s) 2 Duration: intermittent Onset: during rest Pain Location: substernal Quality: + sharp Relieved By: + nothing This is an 79-year-old male who presents to the ED with a chief complaint of awakening this afternoon after a nap and coughing up some mucus with blood and also having a fever of 102.7. He also reported some slight chest pains today. 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 He has not had any sick contacts that he can recall. The patient denies any nausea or vomiting. Denies abdominal pains. No other symptoms. Home Medications Home Medications Medication Instructions Recorded Confirmed Type aspirin [Aspirin Low Dose] 81 mg PO HS 03/25/18 08/19/19 History indomethacin 1 cap PO TID PRN 03/25/18 08/19/19 History levothyroxine 125 mcg PO QAM 03/25/18 08/19/19 History nitroglycerin 1 tab SUBLINGUAL UD PRN 03/25/18 08/19/19 History paroxetine HCl [Paxil] 20 mg PO QAM 03/25/18 08/19/19 History ramipril 10 mg PO QPM 03/25/18 08/19/19 History clopidogrel 75 mg PO QAM 06/03/18 08/19/19 History budesonide 0.5 mg/2 mL suspension 0.5 mg INHALATION DAILY 06/09/19 08/19/19 History for nebulization ipratropium 0.5 mg-albuterol 3 mg 3 ml INH QID PRN 06/09/19 08/19/19 History (2.5 mg base)/3 mL nebulization soln ezetimibe 10 mg tablet 10 mg PO DAILY tab 07/18/19 08/19/19 History omeprazole 20 mg capsule,delayed 20 mg PO DAILY cap 07/18/19 08/19/19 History release revefenacin 175 mcg/3 mL solution 175 mcg INH DAILY #90 ml 08/12/19 08/19/19 Rx for nebulization Lactobacillus rhamnosus GG 1 cap PO DAILY 08/19/19 08/19/19 History albuterol sulfate 2.5 mg INHALATION Q4 PRN 08/19/19 08/19/19 History chlorhexidine gluconate 15 ml PO BID 08/19/19 08/19/19 History fluorouracil [Efudex] 1 applic TOPICAL QPM PRN 08/19/19 08/19/19 History polyethylene glycol 3350 [Miralax] 17 g PO DAILY 08/19/19 08/19/19 History triamcinolone acetonide 1 applic TOPICAL BID PRN 08/19/19 08/19/19 History Allergies Allergy/AdvReac Type Severity Reaction Status Date / Time atorvastatin AdvReac Unknown stiffness Verified 06/23/18 06:15 Past Med/Surg History Medical History Anxiety (Chronic) Benign neoplasm of colon (Inactive) CAD (coronary artery disease) (Chronic) "1995 - CABG x 2" 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 LAST CHECKED REMOTELY 05/31/18 Carotid artery stenosis with cerebral infarction over 8 weeks ago The patient presented to [facility] ED on 03/26/18 with expressive aphasia, left upper extremity numbness, left lower extremity weakness. Symptoms were resolving by the time the patient arrived in the ED. Pt had R CEA while inpatient on 03/29 COPD (chronic obstructive pulmonary disease) (Chronic) Difficult airway for intubation H/o glidescope #4 with CEA 03/2018 Dyslipidemia (Chronic) GERD (gastroesophageal reflux disease) (Chronic) Gout (Chronic) History of radiation to head and neck region (Chronic) For laryngeal cancer 1985 HTN (hypertension) (Chronic) Hypothyroidism (Chronic) Ischemic stroke MARCH 25, 2018. NO DEFICITS. 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 Neck pain OCCASIONAL Obesity JAIME on CPAP (Inactive) no longer on CPAP post tracheostomy Pharyngocutaneous fistula (Inactive) Sleep apnea CPAP Surgical History History of bronchoscopy History of carotid endarterectomy RIGHT (MARCH 2018) History of cataract extraction with lens replacement (Chronic) cataract extraction with IOL implant and LRI left eye - 05/02/12 History of colonoscopy with polypectomy (Chronic) History of coronary artery bypass graft (Chronic) X2 VESSEL 1995 -- [facility] History of rotator cuff surgery (Chronic) Right - 2010 History of tonsillectomy Hx of laryngectomy Family History Mother Essential hypertension Stroke Social History Preferred Language: Portuguese Communication Ability: Effective Visual Impairment: No Limitations Field Hand Required: No Beliefs That Will Affect Care: None marital status: Current Living Situation: Spouse current occupational status: retired Feels Safe at Home: Yes Smoking Status: Never smoker Tobacco Type: cigarettes ; Cigarettes Per Day: 60 ; Second Hand Exposure: No ; Hx Alcohol Use: Yes Alcohol type: beer and wine Hx Substance Use: No Review of Systems A total of 10 systems reviewed and were otherwise negative Physical Exam Vital Signs Vital Signs - 24 hr 08/19/19 22:17 08/19/19 22:29 08/19/19 22:41 Temperature 38.6 C H Temperature Source Oral Pulse Rate 72 76 Pulse Rate from SpO2 Sensor 76 Respiratory Rate 20 17 Respiratory Effort / Characteristics Non-Labored Spontaneous Respiratory Depth Normal Blood Pressure 132/64 147/58 H Blood Pressure Mean 86 95 Blood Pressure Position Right Lateral Pulse Oximetry 98 98 93 Oxygen Delivery Method Room Air Room Air Sepsis Recent Fever Within 48 Hours Yes Sepsis Action Taken by Nursing Physician Notified Pulse Oximetry Post Tiitration 98 CONSTITUTIONAL/VITAL SIGNS: Reviewed / noted above. GENERAL: Non-toxic in appearance. INTEGUMENTARY: Warm, dry, and [place]. HEAD: Normocephalic. EYES: without scleral icterus or trauma. ENT/OROPHARYNX: clear and moist. There is a tracheostomy in place. There is a small amount of dried blood at the end of the stoma. LYMPHADENOPATHY/NECK: Is supple without lymphadenopathy or meningismus. RESPIRATORY: Lungs are slightly diminished in the bases with some crackles. CARDIOVASCULAR: Regular rate and rhythm. GI/ABDOMEN: Soft and nontender. No organomegaly or pulsatile mass. No rebound or guarding. Normal bowel sounds. EXTREMITIES: Warm and well perfused. BACK: No CVA tenderness. NEUROLOGICAL: Intact without focal deficits. PSYCHIATRIC: normal affect. MUSCULOSKELETAL: Normally developed with good muscle tone. TRIAGE NURSING DOCUMENTATION REVIEWED. Course Administered Medications Sodium Chloride (Nss 1000ml) 1,000 mls @ 999 mls/hr IV .Q1H1M ONE Stop: 08/20/19 00:03 Last Admin: 08/19/19 23:09 Dose: 999 mls/hr Documented by: [id number] Ioversol (Optiray 320 125ml) 118 ml IV ONCE PRN PRN Reason: Interaction Checking Stop: 08/23/19 22:20 Last Admin: 08/19/19 22:21 Dose: 1 ml Documented by: [id number] Discontinued Medications Cefepime HCl (Maxipime) 2,000 mg in 20 mls @ 5 mls/min IV NOW STA; Protocol Stop: 08/19/19 22:49 Last Admin: 08/19/19 23:06 Dose: 5 mls/min Documented by: [id number] Ondansetron HCl (Zofran) 4 mg IV NOW STA Stop: 08/19/19 22:08 Last Admin: 08/19/19 22:30 Dose: 4 mg Documented by: [id number] Ondansetron HCl (Zofran) Confirm Administered Dose 4 mg .ROUTE .STK-MED ONE Stop: 08/19/19 22:09 Last Admin: 08/19/19 22:30 Dose: Not Given Documented by: [id number] Medical Decision Making Differential Diagnosis The differential was considered includes acute myocardial infarction, acute coronary syndrome, myocarditis, pericarditis, pericardial effusions /tamponad, esophageal perforation, pulmonary embolism, pneumonia, pneumothorax, cardiomyopathy, congestive heart, anemia , COPD/asthma exacerbation. Medical Records Attestation: I reviewed the patient's medical records. Home Medications Current Medication List: was personally reviewed by me Laboratory Data Attestation: I reviewed the patient's lab results. Result diagrams: 08/19/19 22:10 08/19/19 22:10 Labs: Lab Results 08/19/19 08/19/19 08/19/19 Range/Units 22:10 22:10 22:10 WBC 14.67 H (4.8-10.8) K/uL RBC 4.58 L (4.7-6.1) M/uL Hgb 12.1 L (14.0-18.0) g/dL Hct 37.2 L (42-52) % MCV 81.2 (80-100) fL MCH 26.4 (25-34) pg MCHC 32.5 (32-36) g/dL RDW Std Deviation 50.4 H (36.4-46.3) fL RDW Coeff of Sharda 17.0 H (11.5-14.5) % Plt Count 371 (130-400) K/uL MPV 9.1 (7.4-10.4) fL Immature Gran % (Auto) 0.4 % Neut % (Auto) 85.1 % Lymph % (Auto) 6.7 % Cottle % (Auto) 5.9 % Eos % (Auto) 1.6 % Baso % (Auto) 0.3 % Immature Gran # (Auto) 0.06 H (0.00-0.02) K/uL Neut # (Auto) 12.49 H (1.4-6.5) K/uL Lymph # (Auto) 0.98 L (1.2-3.4) K/uL Cottle # (Auto) 0.87 H (0.11-0.59) K/uL Eos # (Auto) 0.23 (0-0.5) K/uL Baso # (Auto) 0.04 (0-0.2) K/uL PT 10.6 (9.0-12.0) Seconds INR 1.0 (0.9-1.1) APTT 26.8 (21.0-31.0) Seconds PTT Ratio 1.0 Sodium 136 (136-145) mmol/L Potassium 4.3 (3.5-5.1) mmol/L Chloride 105 (98-107) mmol/L Carbon Dioxide 24 (21-32) mmol/L Anion Gap 8.0 (3-11) BUN 21 H (7-18) mg/dl Creatinine 1.50 H (0.6-1.4) mg/dl Est Cr Clr Drug Dosing 46.9 ml/min Est GFR ( Amer) 50.2 Est GFR (Non-Af Amer) 43.3 BUN/Creatinine Ratio 14.2 (10-20) Glucose 120 H (70-99) mg/dl Calcium 8.9 (8.5-10.1) mg/dl Total Bilirubin 0.7 (0.2-1) mg/dl AST 19 (15-37) U/L ALT 22 (12-78) U/L Alkaline Phosphatase 87 (45-117) U/L Troponin I 0.148 H* (0-0.045) ng/ml Total Protein 7.8 (6.4-8.2) gm/dl Albumin 3.8 (3.4-5.0) gm/dl Globulin 4.0 (2.5-4.0) gm/dl Albumin/Globulin Ratio 1.0 (0.9-2) Lipase 95 (73-393) U/L Imaging Data Chest x-ray: Attestation: I personally reviewed and interpreted this imaging study as follows: (Bilateral pneumonia) Radiologist's impression: Chest x-ray: IMPRESSION: There are new patchy airspace opacities seen within the lung bases and right upper lobe. This is consistent with a pneumonia and could represent a viral process. CT scan - chest: Radiologist's impression: 1. No evidence for pulmonary embolus. 2. Multiple new scattered groundglass and consolidative airspace opacities. Some of these have a somewhat rounded appearance. This favors an atypical pneumonia and could be seen in the setting of viral or fungal infections. 3. Inadequate filling versus thrombosis of the branch of the left inferior pulmonary vein seen within the left lower lobe. 4. Stable 7 mm subpleural nodule within the left lower lobe. ECG Data Attestation: I personally reviewed and interpreted this ECG as follows: Indication: chest pain and other Rate (beats per minute): 74 Rhythm: other (Atrial paced/pacemaker rhythm) Findings: no PVC and no ST elevation Blood Pressure Blood Pressure Findings: Normal blood pressure MDM Narrative This is an 79-year-old male who presents to the ED with a chief complaint of awakening this afternoon after a nap and coughing up some mucus with blood and also having a fever of 102.7. He also reported some slight chest pains today. 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 He has not had any sick contacts that he can recall. The patient denies any nausea or vomiting. Denies abdominal pains. No other symptoms. The patient's clinical exam reveals that he does have a fever 38.6. Other vital signs are normal. The lung sounds reveal some crackles in the bases are slightly diminished. Tracheostomy is in place. Some dried blood in the tracheostomy. The patient's CBC reveals an elevated white blood cell count of 14.67. Hemoglobin is 12.1. BUN is 21 and creatinine is 1.5. EKG showed an atrial paced rhythm at a rate of 74. No significant ST elevations or depressions. Chest x-ray reveals findings suggesting bilateral pneumonia. CT scan shows an atypical multifocal bilateral pneumonia. The patient's troponin is elevated at 0.148. The patient did have a brief desaturation during his ED stay with saturations in the high 80s. He was placed on some supplemental oxygen and respiratory was contacted to suction the trach. The patient was given IV cefepime, IV Zithromax, p.o. aspirin and IV fluids. He will be seen by the hospitalist for further evaluation and care. Cardiac monitoring: An order was placed for continuous cardiac monitoring. The monitor shows a rate of 70-80 with an atrial paced rhythm. Impression & Plan Bilateral pneumonia, Elevated troponin, Cough with hemoptysis Discharge Plan Visit Data Chief Complaint: Chest Pain Stated Complaint: CHEST PAIN ED Provider: Lance Roman Discharge Problem: Bilateral pneumonia, Elevated troponin, Cough with hemoptysis Patient Disposition: Being Evaluated by Hospitalist Condition: Fair Forms Stand Alone Forms: Count Includes [facility], Important Visit Information Prescriptions Prescriptions: No Action Yupelri 175 mcg/3 mL solution for nebulization 175 mcg INH DAILY Qty: 90 RF: 2 omeprazole 20 mg capsule,delayed release(DR/EC) 20 mg PO DAILY RF: 0 ezetimibe 10 mg tablet 10 mg PO DAILY RF: 0 ipratropium-albuterol 0.5 mg-3 mg(2.5 mg base)/3 mL solution for nebulization 3 ml INH QID PRN (Reason: Shortness Of Breath Or Wheezing) RF: 0 budesonide 0.5 mg/2 mL suspension for nebulization 0.5 mg inhalation DAILY RF: 0 aspirin [Aspirin Low Dose] 81 mg Tablet,Delayed Release (Dr/Ec) 81 mg PO HS RF: 0 paroxetine HCl [Paxil] 20 mg tablet 20 mg PO QAM RF: 0 levothyroxine 125 mcg tablet 125 mcg PO QAM RF: 0 indomethacin 25 mg capsule 1 cap PO TID PRN (Reason: Pain) RF: 0 nitroglycerin 0.4 mg tablet, sublingual 1 tab Sublingual UD PRN (Reason: Chest Pain) RF: 0 ramipril 10 mg capsule 10 mg PO QPM RF: 0 chlorhexidine gluconate 0.12 % mouthwash 15 ml PO BID RF: 0 albuterol sulfate 2.5 mg /3 mL (0.083 %) Solution For Nebulization 2.5 mg INHALATION Q4 PRN (Reason: Shortness Of Breath Or Wheezing) RF: 0 polyethylene glycol 3350 [Miralax] 17 gram Powder In Packet 17 g PO DAILY RF: 0 fluorouracil [Efudex] 5 % Cream 1 applic TOPICAL QPM PRN (Reason: FLARE UPS) RF: 0 triamcinolone acetonide 0.1 % Cream 1 applic TOPICAL BID PRN (Reason: FLARE UPS) RF: 0 Lactobacillus rhamnosus GG 10 billion cell Capsule 1 cap PO DAILY RF: 0 clopidogrel 75 mg tablet 75 mg PO QAM RF: 0 Referrals Referrals: David Giordano DO [Primary Care Provider] - Discharge Problem: Bilateral pneumonia Qualifiers: Pneumonia type: due to unspecified organism Lung location: unspecified part of lung Qualified Code(s): J18.9 - Pneumonia, unspecified organism
[2019-08-19 22:42] LABS: Hematocrit (blood only) 37.2 % (42-52); Hemoglobin 12.1 g/dL (14.0-18.0); Mean Corpuscular Hemoglobin 26.4 pg (25-34); Mean Corpuscular Hgb Conc 32.5 g/dL (32-36); Mean Corpuscular Volume 81.2 fL (80-100); Mean Platelet Volume 9.1 fL (7.4-10.4); Platelet Count 371 K/uL (130-400); RDW Standard Deviation 50.4 fL (36.4-46.3); Red Blood Count 4.58 M/uL (4.7-6.1); White Blood Count 14.67 K/uL (4.8-10.8)
[2019-08-19 22:43] LABS: Partial Thromboplastin Time 26.8 Seconds (21.0-31.0); Prothrombin Time 10.6 Seconds (9.0-12.0)
[2019-08-19] MEDS ORDERED: CEFEPIME 2,000 MG/20 ML VIAL IV STA (22:46)
[2019-08-19 22:54] LABS: Albumin Level 3.8 gm/dl (3.4-5.0); BUN Creatinine Ratio 14.2 (10-20); Calcium 8.9 mg/dl (8.5-10.1); Creatinine Clr Calc Pharmacy 46.9 ml/min; Est GFR (African American) 50.2; Est GFR (Non-African American) 43.3; Potassium 4.3 mmol/L (3.5-5.1)
[2019-08-19 22:59] LABS: Basophils # (auto) 0.04 K/uL (0-0.2); Basophils % (auto) 0.3 %; Eosinophils # (auto) 0.23 K/uL (0-0.5); Eosinophils % (auto) 1.6 %; Immature Granulocytes # (auto) 0.06 K/uL (0.00-0.02); Immature Granulocytes % (auto) 0.4 %; Lymphocytes # (auto) 0.98 K/uL (1.2-3.4); Lymphocytes % (auto) 6.7 %; Monocytes # (auto) 0.87 K/uL (0.11-0.59); Monocytes % (auto) 5.9 %; Neutrophils # (auto) 12.49 K/uL (1.4-6.5); Neutrophils % (auto) 85.1 %
--- NOTE | 2019-08-19 23:02 | XRay Report ---
XR chest 1V portable HISTORY: Atypical Chest Pain COMPARISON: Chest CT 08/09/2019. FINDINGS: Tracheostomy tube is in good position. Poststernotomy changes and a left-sided dual-chamber pacemaker. No pneumothorax. No pleural effusions. No evidence for pulmonary edema. The heart is norm al in size. Patchy hazy airspace opacity seen within the lung bases and right upper lobe. This is new from the prior study. IMPRESSION: There are new patchy airspace opacities seen within the lung bases and right upper lobe. This is cons istent with a pneumonia and could represent a viral process. ACT 112: Negative or not required by law. Electronically signed by: Andrew Marion M.D. 08/19/2019 11:01 PM
[2019-08-19] MEDS ORDERED: SODIUM CHLORIDE 0.9% 1000ML 1,000 ML IV ONE (23:03)
[2019-08-19 23:06] LABS: Bilirubin,Total 0.7 mg/dl (0.2-1); Total Protein 7.8 gm/dl (6.4-8.2); Troponin I 0.148 ng/ml (0-0.045)
[2019-08-19] MEDS ORDERED: ASPIRIN CHEW 324 MG PO STA (23:09)
--- NOTE | 2019-08-19 23:10 | CT Scan Report ---
CHEST CTA for PULMONARY ARTERIES CT DOSE: 732.25 mGy.cm HISTORY: Hemoptysis. TECHNIQUE: Multiaxial CT images of the chest were performed following the intravenous administration of contrast to evaluate the pulmonary arteries. Maximal intensity projection images were also obtaine d. A dose lowering technique was utilized adhering to the principles of ALARA. COMPARISON STUDY: Chest CT 08/09/2019. FINDINGS: A tracheostomy tube is in good position. There is left-sided dual-chamber pacemaker. Postst ernotomy changes are noted. Limited views of the upper abdomen demonstrate a normal liver, spleen, an d adrenal glands. There is a small to moderate hiatus hernia. No mediastinal or hilar lymphadenopathy . Normal caliber thoracic aorta with no evidence for dissection. The heart is normal in size. No fill ing defects within the pulmonary arteries to suggest pulmonary embolus. Possible thrombosed branch of the left inferior pulmonary vein best seen on image 66. However, this could be due to inadequate viki ling of contrast. No suspicious lytic or blastic osseous lesions. No pneumothorax. The central airway s are patent. Stable 7 mm subpleural nodule within the superior segment of the left lower lobe best s een on image 194. Progression of the tree-in-bud nodular opacities within the right upper lobe. There are also multiple new scattered groundglass and consolidative airspace opacities most pronounced wit hin the left lower lobe and periphery the right upper lobe. Some of these have a slightly rounded liam earance. IMPRESSION: 1. No evidence for pulmonary embolus. 2. Multiple new scattered groundglass and consolidative airspace opacities. Some of these have a some what rounded appearance. This favors an atypical pneumonia and could be seen in the setting of viral or fungal infections. 3. Inadequate filling versus thrombosis of the branch of the left inferior pulmonary vein seen within the left lower lobe. 4. Stable 7 mm subpleural nodule within the left lower lobe. 5. Additional findings as described above. Area ACT 112: Negative or not required by law. Electronically signed by: Andrew Marion M.D. 08/19/2019 11:09 PM
[2019-08-19] MEDS ORDERED: ACETAMINOPHEN 325 MG TAB PO STA (23:15)
[2019-08-19] MEDS ORDERED: AZITHROMYCIN 500 MG in DEXTROSE 5% 250 ML IV STA (23:19)
[2019-08-19] MEDS ORDERED: PIPERACILL/TAZOBAC CONSULT ACTIVE PRN (23:20)
[2019-08-19] MEDS ORDERED: PIPERACILLIN/TAZOBACTAM 4.5 GM/120 ML BAG IV ONE (23:20)
[2019-08-19] MEDS ORDERED: DOXYCYCLINE HYCLATE 100 MG in DEXTROSE 5% 100 ML IV STA (23:33)
--- NOTE | 2019-08-19 23:42 | History & Physical Report ---
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 Rule out COVID pneumonia Possible COPD exacerbation secondary to above Troponin elevation secondary to above hx CAD status post CABG/ PVD status post surgery/history of CVA as per records SSS status post PPM, paced rhythm hypertension, BP on the lower side hyperlipidemia, statin intolerance history of CVA, COPD Hypothyroidism, euthyroid as of today's TSH CRI, creatinine at baseline chronic anemia secondary to CKD, hemoglobin better than baseline Hyperglycemia, possible prediabetes hemoglobin A1c of 5.8 in 2018 Past tobacco abuse PCU Cultures, Zosyn, Doxycycline for now COVID testing Isolation precautions until COVID ruled out Solu-Medrol 1 dose for bronchopneumonia causing COPD exacerbation/hemoptysis May benefit from prednisone course once COVID ruled out. Nebs RTC Aspiration precautions, swallow eval Pulmonary consult if without improvement IVF, follow lactic acid Appropriate to hold home BP meds until BP stable trend troponin, TTE if with significant progression Hold antiplatelets for now given hemoptysis Trend H&H, transfuse PRBC if hemoglobin less than 8 and or for symptomatic anemia Resume antiplatelet Rx if hemoglobin stable Update hemoglobin A1c DVT prophylaxis. SCDs RE hemoptysis Full code Total critical care time was 40 minutes. Patient's requesting updates from providers. Ms. Tiffany Locke, contact #[phone]. Text document was generated using [employer] voice recognition software. It may contain grammatical or spelling errors. Kindly contact undersigned for clarification of any documentation item in question. History of Present Illness Chief Complaint: Hemoptysis, S OB Primary Care Provider: David Giordano DO History obtained from patient, family, and records. Limited history from patient secondary to nonverbal state from tracheostomy. Medical history significant for CAD status post CABG, SSS status post PPM, PVD status post surgery, hypertension, hyperlipidemia, history of CVA, COPD, past tobacco abuse, JAIME on CPAP, recurrent laryngeal cancer status post surgery and radiation, hypothyroidism, CRI (baseline creatinine 1.3-1.5), chronic anemia (baseline hemoglobin 9-10). Recent confinement [facility] last March 2019 for laryngectomy w neck dissection and reconstruction for recurrent laryngeal cancer. Patient woke up a few hours ago with hemoptysis, S OB, achy right-sided chest pain from coughing and fever of 102.7 at home. Cough symptoms noted by if patient if not careful with swallowing from time to time. No known recent sick contacts or travel. At the ER, patient received cefepime for sepsis. Aspirin also given for troponin elevation. SBP later noted to be 80s at the ER. 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 Allergies Allergy/AdvReac Type Severity Reaction Status Date / Time atorvastatin AdvReac Unknown stiffness Verified 06/23/18 06:15 Home Medications Home Medications Medication Instructions Recorded Confirmed Type aspirin [Aspirin Low Dose] 81 mg PO HS 03/25/18 08/19/19 History indomethacin 1 cap PO TID PRN 03/25/18 08/19/19 History levothyroxine 125 mcg PO QAM 03/25/18 08/19/19 History nitroglycerin 1 tab SUBLINGUAL UD PRN 03/25/18 08/19/19 History paroxetine HCl [Paxil] 20 mg PO QAM 03/25/18 08/19/19 History ramipril 10 mg PO QPM 03/25/18 08/19/19 History clopidogrel 75 mg PO QAM 06/03/18 08/19/19 History budesonide 0.5 mg/2 mL suspension 0.5 mg INHALATION DAILY 06/09/19 08/19/19 History for nebulization ipratropium 0.5 mg-albuterol 3 mg 3 ml INH QID PRN 06/09/19 08/19/19 History (2.5 mg base)/3 mL nebulization soln ezetimibe 10 mg tablet 10 mg PO DAILY tab 07/18/19 08/19/19 History omeprazole 20 mg capsule,delayed 20 mg PO DAILY cap 07/18/19 08/19/19 History release revefenacin 175 mcg/3 mL solution 175 mcg INH DAILY #90 ml 08/12/19 08/19/19 Rx for nebulization Lactobacillus rhamnosus GG 1 cap PO DAILY 08/19/19 08/19/19 History albuterol sulfate 2.5 mg INHALATION Q4 PRN 08/19/19 08/19/19 History chlorhexidine gluconate 15 ml PO BID 08/19/19 08/19/19 History fluorouracil [Efudex] 1 applic TOPICAL QPM PRN 08/19/19 08/19/19 History polyethylene glycol 3350 [Miralax] 17 g PO DAILY 08/19/19 08/19/19 History triamcinolone acetonide 1 applic TOPICAL BID PRN 08/19/19 08/19/19 History Past Med/Surg History Medical History Anxiety (Chronic) Benign neoplasm of colon (Inactive) CAD (coronary artery disease) (Chronic) "1995 - CABG x 2" 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 LAST CHECKED REMOTELY 05/31/18 Carotid artery stenosis with cerebral infarction over 8 weeks ago The patient presented to [facility] ED on 03/26/18 with expressive aphasia, left upper extremity numbness, left lower extremity weakness. Symptoms were resolving by the time the patient arrived in the ED. Pt had R CEA while inpatient on 03/29 COPD (chronic obstructive pulmonary disease) (Chronic) Difficult airway for intubation H/o glidescope #4 with CEA 03/2018 Dyslipidemia (Chronic) GERD (gastroesophageal reflux disease) (Chronic) Gout (Chronic) History of radiation to head and neck region (Chronic) For laryngeal cancer 1985 HTN (hypertension) (Chronic) Hypothyroidism (Chronic) Ischemic stroke MARCH 25, 2018. NO DEFICITS. 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 Neck pain OCCASIONAL Obesity JAIME on CPAP (Inactive) no longer on CPAP post tracheostomy Pharyngocutaneous fistula (Inactive) Sleep apnea CPAP Surgical History History of bronchoscopy History of carotid endarterectomy RIGHT (MARCH 2018) History of cataract extraction with lens replacement (Chronic) cataract extraction with IOL implant and LRI left eye - 05/02/12 History of colonoscopy with polypectomy (Chronic) History of coronary artery bypass graft (Chronic) X2 VESSEL 1995 -- [facility] History of rotator cuff surgery (Chronic) Right - 2009 History of tonsillectomy Hx of laryngectomy Family History Mother Essential hypertension Stroke Social History Preferred Language: [place] Communication Ability: Effective Communication Ability Comment: write answers to questions, unable to talk yet Visual Impairment: No Limitations 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 Beliefs That Will Affect Care: None marital status: Current Living Situation: Family current occupational status: retired Other Information That Helps Us Care for You: No Feels Safe at Home: Yes Safety Concerns: Feels Safe At This Time Smoking Status: Never smoker Tobacco Type: cigarettes ; Cigarettes Per Day: 60 ; Second Hand Exposure: No ; Hx Alcohol Use: No Hx Substance Use: No Review of Systems Review of Systems: Could not be reliably obtained Physical Exam Physical Exam: GENERAL: Pleasant, minimal respiratory distress, nonverbal SKIN: Pallor , warm HEENT: Pale palpebral conjunctivae, no ptosis, dry buccal mucosa NECK : Supple, no tenderness, tracheostomy tube in place CHEST : Pacemaker left chest wall, decreased breath sounds, occasional expiratory wheezes, no tenderness HEART : RRR, systolic murmur ABDOMEN: Soft, nontender EXTREMITIES : No LE swelling, no LE tenderness, no other conspicuous deformities noted NEUROLOGIC : Coherent, no facial asymmetry, nonverbal, no other gross focality Results & Data Results & Data ([facility]) Vital Signs (Past 12 Hours) Vital Signs Temp Pulse Pulse Resp BP Pulse Ox 08/19/19 23:33 60 16 97 08/19/19 22:41 76 17 147/58 H 93 08/19/19 22:29 98 08/19/19 22:17 38.6 C H 72 20 132/64 98 Laboratory Results Laboratory Results WBC 14.67 K/uL (4.8-10.8) H 08/19/19 22:10 RBC 4.58 M/uL (4.7-6.1) L 08/19/19 22:10 Hgb 12.1 g/dL (14.0-18.0) L 08/19/19 22:10 Hct 37.2 % (42-52) L 08/19/19 22:10 MCV 81.2 fL (80-100) 08/19/19 22:10 MCH 26.4 pg (25-34) 08/19/19 22:10 MCHC 32.5 g/dL (32-36) 08/19/19 22:10 RDW Std Deviation 50.4 fL (36.4-46.3) H 08/19/19 22:10 RDW Coeff of Sharda 17.0 % (11.5-14.5) H 08/19/19 22:10 Plt Count 371 K/uL (130-400) 08/19/19 22:10 MPV 9.1 fL (7.4-10.4) 08/19/19 22:10 Immature Gran % (Auto) 0.4 % 08/19/19 22:10 Neut % (Auto) 85.1 % 08/19/19 22:10 Lymph % (Auto) 6.7 % 08/19/19 22:10 Eagle % (Auto) 5.9 % 08/19/19 22:10 Eos % (Auto) 1.6 % 08/19/19 22:10 Baso % (Auto) 0.3 % 08/19/19 22:10 Immature Gran # (Auto) 0.06 K/uL (0.00-0.02) H 08/19/19 22:10 Neut # (Auto) 12.49 K/uL (1.4-6.5) H 08/19/19 22:10 Lymph # (Auto) 0.98 K/uL (1.2-3.4) L 08/19/19 22:10 Eagle # (Auto) 0.87 K/uL (0.11-0.59) H 08/19/19 22:10 Eos # (Auto) 0.23 K/uL (0-0.5) 08/19/19 22:10 Baso # (Auto) 0.04 K/uL (0-0.2) 08/19/19 22:10 PT 10.6 Seconds (9.0-12.0) 08/19/19 22:10 INR 1.0 (0.9-1.1) 08/19/19 22:10 APTT 26.8 Seconds (21.0-31.0) 08/19/19 22:10 PTT Ratio 1.0 08/19/19 22:10 Sodium 136 mmol/L (136-145) 08/19/19 22:10 Potassium 4.3 mmol/L (3.5-5.1) 08/19/19 22:10 Chloride 105 mmol/L (98-107) 08/19/19 22:10 Carbon Dioxide 24 mmol/L (21-32) 08/19/19 22:10 Anion Gap 8.0 (3-11) 08/19/19 22:10 BUN 21 mg/dl (7-18) H 08/19/19 22:10 Creatinine 1.50 mg/dl (0.6-1.4) H 08/19/19 22:10 Est Cr Clr Drug Dosing 46.9 ml/min 08/19/19 22:10 Est GFR ( Amer) 50.2 08/19/19 22:10 Est GFR (Non-Af Amer) 43.3 08/19/19 22:10 BUN/Creatinine Ratio 14.2 (10-20) 08/19/19 22:10 Glucose 120 mg/dl (70-99) H 08/19/19 22:10 Calcium 8.9 mg/dl (8.5-10.1) 08/19/19 22:10 Total Bilirubin 0.7 mg/dl (0.2-1) 08/19/19 22:10 AST 19 U/L (15-37) 08/19/19 22:10 ALT 22 U/L (12-78) 08/19/19 22:10 Alkaline Phosphatase 87 U/L (45-117) 08/19/19 22:10 Troponin I 0.148 ng/ml (0-0.045) H* 08/19/19 22:10 Total Protein 7.8 gm/dl (6.4-8.2) 08/19/19 22:10 Albumin 3.8 gm/dl (3.4-5.0) 08/19/19 22:10 Globulin 4.0 gm/dl (2.5-4.0) 08/19/19 22:10 Albumin/Globulin Ratio 1.0 (0.9-2) 08/19/19 22:10 Lipase 95 U/L (73-393) 08/19/19 22:[address] chest: 1. No evidence for pulmonary embolus. 2. Multiple new scattered groundglass and consolidative airspace opacities. Some of these have a somewhat rounded appearance. This favors an atypical pneumonia and could be seen in the setting of viral or fungal infections. 3. Inadequate filling versus thrombosis of the branch of the left inferior pulmonary vein seen within the left lower lobe. 4. Stable 7 mm subpleural nodule within the left lower lobe. 5. Additional findings as described above. EKG as per my interpretation: Rate 75, paced rhythm
[2019-08-19 23:46] LABS: Magnesium 1.8 mg/dl (1.8-2.4); Thyroid Stimulating Hormone 0.451 uIu/ml (0.300-4.500)
[2019-08-20] MEDS ORDERED: LACTATED RINGER'S 1,000 ML IV ONE (00:17)
[2019-08-20] MEDS ORDERED: ALBUT/IPRATROP 3MG/0.5MG NEB 3 ML VIAL NEB STA (00:26)
[2019-08-20 00:54] LABS: Influenza A virus by PCR Neg for Influ A (Neg); Influenza B virus by PCR Neg for Influ B (Neg)
[2019-08-20] MEDS ORDERED: BENZONATATE 100 MG CAPSULE PO PRN (02:33)
[2019-08-20] MEDS ORDERED: IPRATROPIUM BROMIDE NEB SOLN 0.02% 2.5 ML VIAL INH PRN (04:02)
[2019-08-20] MEDS ORDERED: ACETAMINOPHEN 325 MG TAB PO PRN (04:02)
[2019-08-20] MEDS ORDERED: NITROGLYCERIN SL 0.4 MG/TAB TAB SL PRN (04:02)
[2019-08-20] MEDS ORDERED: LEVALBUTEROL 1.25MG/0.5ML NEB INH PRN (04:02)
[2019-08-20] MEDS ORDERED: XOPENEX/ATROVENT 1.25mg/0.5MG NEB COMBO NEB PRN (04:02)
[2019-08-20 04:08] LABS: Base Excess VBG -2.3 mEq/L; HCO3 VBG 23 mmol/L; PCO2 VBG 43 mmHg (38-50); PO2 VBG 39 mmHg; pH VBG 7.35 (7.36-7.41)
[2019-08-20] MEDS: PIPERACILLIN/TAZOBACTAM 3.375 GM in DEXTROSE 5% 100 ML IV SCH ×3 (04:29→20:13)
[2019-08-20] MEDS: LACTATED RINGER'S 1,000 ML IV SCH ×2 (04:30→11:51)
[2019-08-20 04:38] LABS: BUN Creatinine Ratio 14.3 (10-20); Calcium 8.7 mg/dl (8.5-10.1); Est GFR (Non-African American) 42.3; Oxygen Saturation VBG < 60.0 %; Potassium 4.5 mmol/L (3.5-5.1)
[2019-08-20] MEDS: MAGNESIUM SULFATE / D5W 1 GM/100 ML BAG IV SCH ×2 (04:42→05:57)
[2019-08-20 04:48] LABS: Troponin I 0.175 ng/ml (0-0.045)
[2019-08-20] MEDS ORDERED: LEVOTHYROXINE SODIUM 125 MCG TABLET PO SCH (06:30)
[2019-08-20 06:35] LABS: Basophils # (auto) 0.02 K/uL (0-0.2); Basophils % (auto) 0.1 %; Hematocrit (blood only) 31.4 % (42-52); Hemoglobin 9.8 g/dL (14.0-18.0); Immature Granulocytes # (auto) 0.03 K/uL (0.00-0.02); Immature Granulocytes % (auto) 0.2 %; Lymphocytes # (auto) 0.63 K/uL (1.2-3.4); Lymphocytes % (auto) 4.4 %; Mean Corpuscular Hemoglobin 25.3 pg (25-34); Mean Corpuscular Hgb Conc 31.2 g/dL (32-36); Mean Corpuscular Volume 81.1 fL (80-100); Monocytes % (auto) 2.8 %; Neutrophils # (auto) 13.38 K/uL (1.4-6.5); Neutrophils % (auto) 92.5 %; Platelet Count 263 K/uL (130-400); RDW Coefficient of Variation 17.2 % (11.5-14.5); RDW Standard Deviation 50.8 fL (36.4-46.3); Red Blood Count 3.87 M/uL (4.7-6.1); White Blood Count 14.46 K/uL (4.8-10.8)
[2019-08-20 06:43] LABS: Partial Thromboplastin Ratio 1.1; Partial Thromboplastin Time 30.5 Seconds (21.0-31.0)
[2019-08-20] MEDS ORDERED: XOPENEX/ATROVENT 1.25mg/0.5MG NEB COMBO NEB SCH (07:00)
[2019-08-20] MEDS: IPRATROPIUM BROMIDE NEB SOLN 0.02% 2.5 ML VIAL INH SCH ×3 (07:22→19:47)
[2019-08-20] MEDS: LEVALBUTEROL 1.25MG/0.5ML NEB INH SCH ×3 (07:22→19:47)
[2019-08-20] MEDS: BUDESONIDE 0.5 MG/2 ML VIAL (PULMICORT) INH SCH (07:22)
[2019-08-20 07:29] LABS: Estimated Average Glucose 123 mg/dl; Hemoglobin A1C 5.9 % (4.5-5.6)
[2019-08-20] MEDS ORDERED: CHLORHEXIDINE GLUCONATE 0.12% 480 ML MT SCH (09:00)
[2019-08-20] MEDS ORDERED: PARoxetine HCL 20 MG TAB PO SCH (09:00)
[2019-08-20] MEDS ORDERED: EZETIMIBE 10 MG TABLET PO SCH (09:00)
[2019-08-20] MEDS ORDERED: UMECLIDINIUM BROMIDE 62.5MCG/BLISTER 7 PUFFS/INHALER INH SCH (09:00)
[2019-08-20] MEDS ORDERED: PANTOprazole 40 MG TAB PO SCH (09:00)
[2019-08-20] MEDS: LACTOBACILLUS ACIDOPHILUS (FLORANEX) TAB PO SCH (09:30)
[2019-08-20] MEDS: UMECLIDINIUM BROMIDE 62.5MCG/BLISTER 7 PUFFS/INHALER INH SCH (09:30)
[2019-08-20] MEDS: CHLORHEXIDINE GLUCONATE 0.12% 480 ML MT SCH ×2 (09:31→20:14)
[2019-08-20] MEDS: PARoxetine HCL 20 MG TAB PO SCH (09:31)
[2019-08-20] MEDS: PANTOprazole 40 MG TAB PO SCH (09:32)
[2019-08-20] MEDS: DOXYCYCLINE HYCLATE 100 MG CAP PO SCH ×2 (09:32→20:14)
[2019-08-20] MEDS: LEVOTHYROXINE SODIUM 125 MCG TABLET PO SCH (09:32)
[2019-08-20] MEDS: EZETIMIBE 10 MG TABLET PO SCH (09:33)
--- NOTE | 2019-08-20 11:33 | Hospitalist Progress Note ---
Date of Service August 20, 2019 Assessment & Plan (1) Severe sepsis: 79 year old male with history of CAD, s/p Pacemaker Placement, Laryngeal CA s/p Tracheostomy, COPD, CVA presenting with fever and shortness of breath. 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 SCDs RE hemoptysis Full code Disposition lives with family at home Admission and Anticipated Discharge Date Admission Date: August 19, 2019 Subjective ff up for severe sepsis, pneumonia seen resting in bed, comfortable, in good spirits states he feels improved today compared to yesterday no shortness of breath, on 8 L via trach coughing less, non productive no hemoptysis denies chest pain, chills no other symptoms Review of Systems Review of Systems: All systems reviewed & are unremarkable except as noted in HPI & below Physical Exam Physical Exam: General- oriented x 3, not in distress, speaks in sentences with no effort or accessory muscle use Head- atraumatic Eyes- PERRL, EOMI, anicteric ENT- (+) trach in place: no signs of infection Lungs- mild rales at the bases faint wheeze on the left good air entry bilaterally Heart- normal rate, regular rhythm; no murmur, no gallop, no rub appreciated Abdomen- normal bowel sounds, nondistended, soft, nontender, no masses or hepatosplenomegaly Extremities- no pretibial edema, no calf tenderness; peripheral pulses intact Neuro- alert, oriented x 3; CN 2-12 grossly intact; motor 5/5 bilaterally;sensation 100% on all extremities; no other gross focal neurologic deficits Skin- warm & dry Results & Data Results & Data ([facility]) Vital Signs (Past 12 Hours) Vital Signs Temp Pulse Pulse Pulse Resp BP BP 08/20/19 07:25 64 18 08/20/19 04:02 61 17 120/61 08/20/19 01:05 62 16 08/20/19 00:50 37.7 C H 65 20 119/63 08/20/19 00:18 37.2 C 08/20/19 00:15 60 28 H 126/46 L 08/20/19 00:01 65 20 87/50 L 08/19/19 23:37 60 23 124/48 L Pulse Ox 08/20/19 07:25 96 08/20/19 04:02 99 08/20/19 01:05 98 08/20/19 00:50 98 08/20/19 00:18 08/20/19 00:15 98 08/20/19 00:01 96 08/19/19 23:37 96 Laboratory Results Laboratory Results - last 24 hr 08/19/19 08/19/19 08/19/19 22:10 22:10 22:10 WBC 14.67 H RBC 4.58 L Hgb 12.1 L Hct 37.2 L MCV 81.2 MCH 26.4 MCHC 32.5 RDW Std Deviation 50.4 H RDW Coeff of Sharda 17.0 H Plt Count 371 MPV 9.1 Immature Gran % (Auto) 0.4 Neut % (Auto) 85.1 Lymph % (Auto) 6.7 Jefferson % (Auto) 5.9 Eos % (Auto) 1.6 Baso % (Auto) 0.3 Immature Gran # (Auto) 0.06 H Neut # (Auto) 12.49 H Lymph # (Auto) 0.98 L Jefferson # (Auto) 0.87 H Eos # (Auto) 0.23 Baso # (Auto) 0.04 PT 10.6 INR 1.0 APTT 26.8 PTT Ratio 1.0 ABG pH ABG pCO2 ABG pO2 ABG HCO3 ABG O2 Saturation ABG Base Excess Chuy Test VBG pH VBG pCO2 VBG pO2 VBG HCO3 VBG O2 Saturation VBG Base Excess Barometric Pressure Oxygen Given Sodium 136 Potassium 4.3 Chloride 105 Carbon Dioxide 24 Anion Gap 8.0 BUN 21 H Creatinine 1.50 H Est Cr Clr Drug Dosing 46.9 Est GFR ( Amer) 50.2 Est GFR (Non-Af Amer) 43.3 BUN/Creatinine Ratio 14.2 Glucose 120 H Estimat Average Glucose Hemoglobin A1c Lactate Calcium 8.9 Magnesium 1.8 Total Bilirubin 0.7 AST 19 ALT 22 Alkaline Phosphatase 87 Total Creatine Kinase Troponin I 0.148 H* C-Reactive Protein Total Protein 7.8 Albumin 3.8 Globulin 4.0 Albumin/Globulin Ratio 1.0 Lipase 95 Procalcitonin TSH 0.451 Nasal Screen MRSA (PCR) IgE Rheumatoid Factor Cycl Citrul Peptide IgG Proteinase 3 (PR3) Anti-Neutrophil (Flow) SABINO-1 Antibody SS-A/Ro Antibody SS-B/La Antibody Sm (Mckeon) Antibody ACCORDION TUNER Antibody Scl-70 Scleroderma Ab Double Strand DNA Ab Anti-Centromere Ab Glomerular Base Memb Ab COVID-19 PCR Influenza Type A (PCR) Influenza Type B (PCR) Saccharo. viridis Ab T. candidus Antibody T. vulgaris Antibody Aspergill fumigatus Ab Micropolyspora faeni Ab [place] Serum Precipitin SARS-CoV-2 RNA (RT-PCR) Beta-(1,3)-D-Glucan B-(1,3)-D-Glucan Intrp Blood Type Antibody Screen 08/19/19 08/20/19 08/20/19 23:05 00:00 00:00 WBC RBC Hgb Hct MCV MCH MCHC RDW Std Deviation RDW Coeff of Sharda Plt Count MPV Immature Gran % (Auto) Neut % (Auto) Lymph % (Auto) Jefferson % (Auto) Eos % (Auto) Baso % (Auto) Immature Gran # (Auto) Neut # (Auto) Lymph # (Auto) Jefferson # (Auto) Eos # (Auto) Baso # (Auto) PT INR APTT PTT Ratio ABG pH ABG pCO2 ABG pO2 ABG HCO3 ABG O2 Saturation ABG Base Excess Chuy Test VBG pH VBG pCO2 VBG pO2 VBG HCO3 VBG O2 Saturation VBG Base Excess Barometric Pressure Oxygen Given Sodium Potassium Chloride Carbon Dioxide Anion Gap BUN Creatinine Est Cr Clr Drug Dosing Est GFR ( Amer) Est GFR (Non-Af Amer) BUN/Creatinine Ratio Glucose Estimat Average Glucose Hemoglobin A1c Lactate 2.8 H* Calcium Magnesium Total Bilirubin AST ALT Alkaline Phosphatase Total Creatine Kinase Troponin I C-Reactive Protein Total Protein Albumin Globulin Albumin/Globulin Ratio Lipase Procalcitonin TSH Nasal Screen MRSA (PCR) IgE Rheumatoid Factor Cycl Citrul Peptide IgG Proteinase 3 (PR3) Anti-Neutrophil (Flow) SABINO-1 Antibody SS-A/Ro Antibody SS-B/La Antibody Sm (Mckeon) Antibody ACCORDION TUNER Antibody Scl-70 Scleroderma Ab Double Strand DNA Ab Anti-Centromere Ab Glomerular Base Memb Ab COVID-19 PCR Influenza Type A (PCR) Neg for Influ A Influenza Type B (PCR) Neg for Influ B Saccharo. viridis Ab T. candidus Antibody T. vulgaris Antibody Aspergill fumigatus Ab Micropolyspora faeni Ab [place] Serum Precipitin SARS-CoV-2 RNA (RT-PCR) Cancelled Beta-(1,3)-D-Glucan B-(1,3)-D-Glucan Intrp Blood Type Antibody Screen 08/20/19 08/20/19 08/20/19 00:00 03:16 03:16 WBC RBC Hgb Hct MCV MCH MCHC RDW Std Deviation RDW Coeff of Shadra Plt Count MPV Immature Gran % (Auto) Neut % (Auto) Lymph % (Auto) Jefferson % (Auto) Eos % (Auto) Baso % (Auto) Immature Gran # (Auto) Neut # (Auto) Lymph # (Auto) Jefferson # (Auto) Eos # (Auto) Baso # (Auto) PT INR APTT PTT Ratio ABG pH Cancelled ABG pCO2 Cancelled ABG pO2 Cancelled ABG HCO3 Cancelled ABG O2 Saturation Cancelled ABG Base Excess Cancelled Chuy Test Cancelled VBG pH VBG pCO2 VBG pO2 VBG HCO3 VBG O2 Saturation VBG Base Excess Barometric Pressure Cancelled Oxygen Given Cancelled Sodium Potassium Chloride Carbon Dioxide Anion Gap BUN Creatinine Est Cr Clr Drug Dosing Est GFR ( Amer) Est GFR (Non-Af Amer) BUN/Creatinine Ratio Glucose Estimat Average Glucose Hemoglobin A1c Lactate Calcium Magnesium Total Bilirubin AST ALT Alkaline Phosphatase Total Creatine Kinase Troponin I C-Reactive Protein Total Protein Albumin Globulin Albumin/Globulin Ratio Lipase Procalcitonin TSH Nasal Screen MRSA (PCR) IgE Rheumatoid Factor Cycl Citrul Peptide IgG Proteinase 3 (PR3) Anti-Neutrophil (Flow) SABINO-1 Antibody SS-A/Ro Antibody SS-B/La Antibody Sm (Mckeon) Antibody ACCORDION TUNER Antibody Scl-70 Scleroderma Ab Double Strand DNA Ab Anti-Centromere Ab Glomerular Base Memb Ab COVID-19 PCR NEGATIVE Influenza Type A (PCR) Influenza Type B (PCR) Saccharo. viridis Ab T. candidus Antibody T. vulgaris Antibody Aspergill fumigatus Ab Micropolyspora faeni Ab [place] Serum Precipitin SARS-CoV-2 RNA (RT-PCR) Beta-(1,3)-D-Glucan B-(1,3)-D-Glucan Intrp Blood Type O Positive Antibody Screen NEGATIVE 08/20/19 08/20/19 08/20/19 03:16 03:50 03:50 WBC RBC Hgb Hct MCV MCH MCHC RDW Std Deviation RDW Coeff of Sharda Plt Count MPV Immature Gran % (Auto) Neut % (Auto) Lymph % (Auto) Jefferson % (Auto) Eos % (Auto) Baso % (Auto) Immature Gran # (Auto) Neut # (Auto) Lymph # (Auto) Jefferson # (Auto) Eos # (Auto) Baso # (Auto) PT INR APTT PTT Ratio ABG pH ABG pCO2 ABG pO2 ABG HCO3 ABG O2 Saturation ABG Base Excess Chuy Test VBG pH 7.35 L VBG pCO2 43 VBG pO2 39 VBG HCO3 23 VBG O2 Saturation < 60.0 VBG Base Excess -2.3 Barometric Pressure 729.9 Oxygen Given Sodium 137 Potassium 4.5 Chloride 108 H Carbon Dioxide 26 Anion Gap 3.0 BUN 22 H Creatinine 1.53 H Est Cr Clr Drug Dosing 46.0 Est GFR ( Amer) 49.0 Est GFR (Non-Af Amer) 42.3 BUN/Creatinine Ratio 14.3 Glucose 128 H Estimat Average Glucose Hemoglobin A1c Lactate 3.0 H* Calcium 8.7 Magnesium Total Bilirubin AST ALT Alkaline Phosphatase Total Creatine Kinase Troponin I 0.175 H* C-Reactive Protein Total Protein Albumin Globulin Albumin/Globulin Ratio Lipase Procalcitonin TSH Nasal Screen MRSA (PCR) IgE Rheumatoid Factor Cycl Citrul Peptide IgG Proteinase 3 (PR3) Anti-Neutrophil (Flow) SABINO-1 Antibody SS-A/Ro Antibody SS-B/La Antibody Sm (Mckeon) Antibody ACCORDION TUNER Antibody Scl-70 Scleroderma Ab Double Strand DNA Ab Anti-Centromere Ab Glomerular Base Memb Ab COVID-19 PCR Influenza Type A (PCR) Influenza Type B (PCR) Saccharo. viridis Ab T. candidus Antibody T. vulgaris Antibody Aspergill fumigatus Ab Micropolyspora faeni Ab [place] Serum Precipitin SARS-CoV-2 RNA (RT-PCR) Beta-(1,3)-D-Glucan B-(1,3)-D-Glucan Intrp Blood Type Antibody Screen 08/20/19 08/20/19 08/20/19 06:18 06:18 06:18 WBC 14.46 H RBC 3.87 L Hgb 9.8 L Hct 31.4 L MCV 81.1 MCH 25.3 MCHC 31.2 L RDW Std Deviation 50.8 H RDW Coeff of Sharda 17.2 H Plt Count 263 MPV 9.0 Immature Gran % (Auto) 0.2 Neut % (Auto) 92.5 Lymph % (Auto) 4.4 Jefferson % (Auto) 2.8 Eos % (Auto) 0.0 Baso % (Auto) 0.1 Immature Gran # (Auto) 0.03 H Neut # (Auto) 13.38 H Lymph # (Auto) 0.63 L Jefferson # (Auto) 0.40 Eos # (Auto) 0.00 Baso # (Auto) 0.02 PT INR APTT 30.5 PTT Ratio 1.1 ABG pH ABG pCO2 ABG pO2 ABG HCO3 ABG O2 Saturation ABG Base Excess Chuy Test VBG pH VBG pCO2 VBG pO2 VBG HCO3 VBG O2 Saturation VBG Base Excess Barometric Pressure Oxygen Given Sodium Potassium Chloride Carbon Dioxide Anion Gap BUN Creatinine Est Cr Clr Drug Dosing Est GFR ( Amer) Est GFR (Non-Af Amer) BUN/Creatinine Ratio Glucose Estimat Average Glucose 123 Hemoglobin A1c 5.9 H Lactate Calcium Magnesium Total Bilirubin AST ALT Alkaline Phosphatase Total Creatine Kinase Troponin I C-Reactive Protein Total Protein Albumin Globulin Albumin/Globulin Ratio Lipase Procalcitonin TSH Nasal Screen MRSA (PCR) IgE Rheumatoid Factor Cycl Citrul Peptide IgG Proteinase 3 (PR3) Anti-Neutrophil (Flow) SABINO-1 Antibody SS-A/Ro Antibody SS-B/La Antibody Sm (Mckeon) Antibody ACCORDION TUNER Antibody Scl-70 Scleroderma Ab Double Strand DNA Ab Anti-Centromere Ab Glomerular Base Memb Ab COVID-19 PCR Influenza Type A (PCR) Influenza Type B (PCR) Saccharo. viridis Ab T. candidus Antibody T. vulgaris Antibody Aspergill fumigatus Ab Micropolyspora faeni Ab [place] Serum Precipitin SARS-CoV-2 RNA (RT-PCR) Beta-(1,3)-D-Glucan B-(1,3)-D-Glucan Intrp Blood Type Antibody Screen 08/20/19 08/20/19 08/20/19 06:18 06:18 12:22 WBC RBC Hgb 9.5 L Hct 30.0 L MCV MCH MCHC RDW Std Deviation RDW Coeff of Sharda Plt Count MPV Immature Gran % (Auto) Neut % (Auto) Lymph % (Auto) Jefferson % (Auto) Eos % (Auto) Baso % (Auto) Immature Gran # (Auto) Neut # (Auto) Lymph # (Auto) Jefferson # (Auto) Eos # (Auto) Baso # (Auto) PT INR APTT PTT Ratio ABG pH ABG pCO2 ABG pO2 ABG HCO3 ABG O2 Saturation ABG Base Excess Chuy Test VBG pH VBG pCO2 VBG pO2 VBG HCO3 VBG O2 Saturation VBG Base Excess Barometric Pressure Oxygen Given Sodium Potassium Chloride Carbon Dioxide Anion Gap BUN Creatinine Est Cr Clr Drug Dosing Est GFR ( Amer) Est GFR (Non-Af Amer) BUN/Creatinine Ratio Glucose Estimat Average Glucose Hemoglobin A1c Lactate 2.9 H* Calcium Magnesium Total Bilirubin AST ALT Alkaline Phosphatase Total Creatine Kinase Troponin I 0.133 H* C-Reactive Protein Total Protein Albumin Globulin Albumin/Globulin Ratio Lipase Procalcitonin TSH Nasal Screen MRSA (PCR) IgE Rheumatoid Factor Cycl Citrul Peptide IgG Proteinase 3 (PR3) Anti-Neutrophil (Flow) SABINO-1 Antibody SS-A/Ro Antibody SS-B/La Antibody Sm (Mckeon) Antibody ACCORDION TUNER Antibody Scl-70 Scleroderma Ab Double Strand DNA Ab Anti-Centromere Ab Glomerular Base Memb Ab COVID-19 PCR Influenza Type A (PCR) Influenza Type B (PCR) Saccharo. viridis Ab T. candidus Antibody T. vulgaris Antibody Aspergill fumigatus Ab Micropolyspora faeni Ab [place] Serum Precipitin SARS-CoV-2 RNA (RT-PCR) Beta-(1,3)-D-Glucan B-(1,3)-D-Glucan Intrp Blood Type Antibody Screen 08/20/19 08/20/19 08/20/19 12:22 12:22 15:23 WBC RBC Hgb Hct MCV MCH MCHC RDW Std Deviation RDW Coeff of Sharda Plt Count MPV Immature Gran % (Auto) Neut % (Auto) Lymph % (Auto) Jefferson % (Auto) Eos % (Auto) Baso % (Auto) Immature Gran # (Auto) Neut # (Auto) Lymph # (Auto) Jefferson # (Auto) Eos # (Auto) Baso # (Auto) PT INR APTT PTT Ratio ABG pH ABG pCO2 ABG pO2 ABG HCO3 ABG O2 Saturation ABG Base Excess Chuy Test VBG pH VBG pCO2 VBG pO2 VBG HCO3 VBG O2 Saturation VBG Base Excess Barometric Pressure Oxygen Given Sodium Potassium Chloride Carbon Dioxide Anion Gap BUN Creatinine Est Cr Clr Drug Dosing Est GFR ( Amer) Est GFR (Non-Af Amer) BUN/Creatinine Ratio Glucose Estimat Average Glucose Hemoglobin A1c Lactate 4.4 H* Calcium Magnesium Total Bilirubin AST ALT Alkaline Phosphatase Total Creatine Kinase Troponin I C-Reactive Protein Total Protein Albumin Globulin Albumin/Globulin Ratio Lipase Procalcitonin 0.36 TSH Nasal Screen MRSA (PCR) IgE Pending Rheumatoid Factor Pending Cycl Citrul Peptide IgG Proteinase 3 (PR3) Pending Anti-Neutrophil (Flow) Pending SABINO-1 Antibody Pending SS-A/Ro Antibody Pending SS-B/La Antibody Pending Sm (Mckeon) Antibody Pending ACCORDION TUNER Antibody Pending Scl-70 Scleroderma Ab Pending Double Strand DNA Ab Anti-Centromere Ab Pending Glomerular Base Memb Ab Pending COVID-19 PCR Influenza Type A (PCR) Influenza Type B (PCR) Saccharo. viridis Ab T. candidus Antibody T. vulgaris Antibody Aspergill fumigatus Ab Micropolyspora faeni Ab [place] Serum Precipitin SARS-CoV-2 RNA (RT-PCR) Beta-(1,3)-D-Glucan Pending B-(1,3)-D-Glucan Intrp Pending Blood Type Antibody Screen 08/20/19 08/20/19 08/20/19 15:23 15:23 15:23 WBC RBC Hgb Hct MCV MCH MCHC RDW Std Deviation RDW Coeff of Sharda Plt Count MPV Immature Gran % (Auto) Neut % (Auto) Lymph % (Auto) Jefferson % (Auto) Eos % (Auto) Baso % (Auto) Immature Gran # (Auto) Neut # (Auto) Lymph # (Auto) Jefferson # (Auto) Eos # (Auto) Baso # (Auto) PT INR APTT PTT Ratio ABG pH ABG pCO2 ABG pO2 ABG HCO3 ABG O2 Saturation ABG Base Excess Chuy Test VBG pH VBG pCO2 VBG pO2 VBG HCO3 VBG O2 Saturation VBG Base Excess Barometric Pressure Oxygen Given Sodium Potassium Chloride Carbon Dioxide Anion Gap BUN Creatinine Est Cr Clr Drug Dosing Est GFR ( Amer) Est GFR (Non-Af Amer) BUN/Creatinine Ratio Glucose Estimat Average Glucose Hemoglobin A1c Lactate Calcium Magnesium Total Bilirubin AST ALT Alkaline Phosphatase Total Creatine Kinase Pending Troponin I C-Reactive Protein Pending Total Protein Albumin Globulin Albumin/Globulin Ratio Lipase Procalcitonin TSH Nasal Screen MRSA (PCR) IgE Rheumatoid Factor Cycl Citrul Peptide IgG Pending Proteinase 3 (PR3) Anti-Neutrophil (Flow) SABINO-1 Antibody SS-A/Ro Antibody SS-B/La Antibody Sm (Mckeon) Antibody ACCORDION TUNER Antibody Scl-70 Scleroderma Ab Double Strand DNA Ab Pending Anti-Centromere Ab Glomerular Base Memb Ab COVID-19 PCR Influenza Type A (PCR) Influenza Type B (PCR) Saccharo. viridis Ab Pending T. candidus Antibody Pending T. vulgaris Antibody Pending Aspergill fumigatus Ab Pending Micropolyspora faeni Ab Pending [place] Serum Precipitin Pending SARS-CoV-2 RNA (RT-PCR) Beta-(1,3)-D-Glucan B-(1,3)-D-Glucan Intrp Blood Type Antibody Screen 08/20/19 Unknown WBC RBC Hgb Hct MCV MCH MCHC RDW Std Deviation RDW Coeff of Sharda Plt Count MPV Immature Gran % (Auto) Neut % (Auto) Lymph % (Auto) Jefferson % (Auto) Eos % (Auto) Baso % (Auto) Immature Gran # (Auto) Neut # (Auto) Lymph # (Auto) Jefferson # (Auto) Eos # (Auto) Baso # (Auto) PT INR APTT PTT Ratio ABG pH ABG pCO2 ABG pO2 ABG HCO3 ABG O2 Saturation ABG Base Excess Chuy Test VBG pH VBG pCO2 VBG pO2 VBG HCO3 VBG O2 Saturation VBG Base Excess Barometric Pressure Oxygen Given Sodium Potassium Chloride Carbon Dioxide Anion Gap BUN Creatinine Est Cr Clr Drug Dosing Est GFR ( Amer) Est GFR (Non-Af Amer) BUN/Creatinine Ratio Glucose Estimat Average Glucose Hemoglobin A1c Lactate Calcium Magnesium Total Bilirubin AST ALT Alkaline Phosphatase Total Creatine Kinase Troponin I C-Reactive Protein Total Protein Albumin Globulin Albumin/Globulin Ratio Lipase Procalcitonin TSH Nasal Screen MRSA (PCR) Negative IgE Rheumatoid Factor Cycl Citrul Peptide IgG Proteinase 3 (PR3) Anti-Neutrophil (Flow) SABINO-1 Antibody SS-A/Ro Antibody SS-B/La Antibody Sm (Mckeon) Antibody ACCORDION TUNER Antibody Scl-70 Scleroderma Ab Double Strand DNA Ab Anti-Centromere Ab Glomerular Base Memb Ab COVID-19 PCR Influenza Type A (PCR) Influenza Type B (PCR) Saccharo. viridis Ab T. candidus Antibody T. vulgaris Antibody Aspergill fumigatus Ab Micropolyspora faeni Ab [place] Serum Precipitin SARS-CoV-2 RNA (RT-PCR) Beta-(1,3)-D-Glucan B-(1,3)-D-Glucan Intrp Blood Type Antibody Screen
[2019-08-20 12:35] LABS: Hemoglobin 9.5 g/dL (14.0-18.0)
--- NOTE | 2019-08-20 12:44 | Electrocardiogram Report ---
Test Reason : Blood Pressure : / mmHG Vent. Rate : 074 BPM Atrial Rate : 074 BPM P-R Int : 198 ms QRS Dur : 092 ms QT Int : 390 ms P-R-T Axes : 046 073 082 degrees QTc Int : 432 ms Atrial-paced rhythm Nonspecific ST abnormality Abnormal ECG When compared with ECG of 02-FEB-2019 19:41, Electronic atrial pacemaker has replaced Sinus rhythm T wave inversion no longer evident in Anterior leads Confirmed by Michael Grey ([id number]) on 08/20/2019 12:43:45 PM Referred By: REFERRED SELF Confirmed By:Michael Grey
--- NOTE | 2019-08-20 12:45 | Electrocardiogram Report ---
Test Reason : Blood Pressure : / mmHG Vent. Rate : 060 BPM Atrial Rate : 063 BPM P-R Int : 000 ms QRS Dur : 106 ms QT Int : 516 ms P-R-T Axes : 000 072 096 degrees QTc Int : 516 ms Atrial-paced rhythm Prolonged QT Abnormal ECG When compared with ECG of 19-AUG-2019 22:13, (unconfirmed) Nonspecific T wave abnormality now evident in Anterior leads QT has lengthened Confirmed by Michael Grey ([id number]) on 08/20/2019 12:44:33 PM Referred By: REFERRED SELF Confirmed By:Michael Grey
--- NOTE | 2019-08-20 13:39 | Pulmonary Consultation ---
Date of Consultation August 20, 2019 Assessment & Plan (1) Abnormal CT scan, chest: 79-year-old male with history of head and neck cancer status post laryngectomy now with a tracheal stoma who presented with fever and hemoptysis. He also has abnormalities noted on his CT chest. He notably had an abnormal CT chest since at least February 2019 when he was first found to have right upper lobe tree-in-bud opacities on the PET/CT scan. Yesterday he underwent a CTA which demonstrated diffuse groundglass opacities with a rounded appearance particularly in the lower lobes. He did have a fever. Procalcitonin was unremarkable at 0.36. Interestingly, lactate has been rising and is now up to 4.4 as of 12:22 PM. He does not appear to be in any distress at all. He appears very comfortable and notes that he feels better than he did yesterday. His hemoptysis has resolved. The concern of COVID 19 was raised and he underwent a nasopharyngeal swab yesterday which was negative. Given that he does not have a direct communication from his lungs to his nasopharynx, I am not certain how sensitive this particular COVID-19 PCR was in detecting viremia. Theoretically, if he did have a viremia, the PCR would be evident in any location in his body. Given that he had pulmonary parenchymal abnormalities since at least February 2019, I suspect that this is likely a more indolent process than an acute infection. Nonetheless, I am going to attempt to send for another COVID-19 PCR from a tracheal aspirate and for a viral PCR/mycoplasma PCR from the nasopharynx. We are also going to send for sputum culture. I have ordered for a urine Legionella as well. He is currently on Zosyn and doxycycline. He has not had fevers today. His hemoptysis is improved today. His hemoglobin has been downtrending a bit. Diffuse alveolar hemorrhage is also on the differential especially considering that he is on both aspirin and Plavix. Recommend holding these for today and reevaluating tomorrow. I am sending for autoimmune studies as well to rule out for ANCA vasculitis and other etiologies. I sent for a urine sample to see if there is any active urinary sediment. He does have an acute FIDELINA possibly related to sepsis when he first was admitted to the hospital as he was hypotensive. He has had a very significant peripheral eosinophilia in the past. Less likely differentials include hypersensitivity pneumonitis/allergic alveolitis. I have also ordered for hypersensitivity screen and an IgE. He did receive 20 mg of IV Solu-Medrol yesterday and this is likely why we are not seeing peripheral eosinophils today. If he continues to have hemoptysis tomorrow, he will need a bronchoscopy on Thursday to rule out alveolar hemorrhage. Lastly, there is a remote possibility that these findings represent a carcinoma such as lymphangitic spread of his head and neck cancer, but I do think this is much less likely. (2) Peripheral eosinophilia: (3) Tracheostomy in place: (4) Cough with hemoptysis: (5) Acute hypoxemic respiratory failure: History of Present Illness Reason for Consultation: Hemoptysis Requesting Physician: Hospitalist Attending Physician: Edwin Lau MD History of Present Illness 79-year-old male with a past medical history of head and neck cancer with laryngectomy (tracheostomy tube in place at the location of the laryngeal stoma) in March 2019 at [facility], carotid artery stenosis, anxiety, stroke, gout, coronary artery disease and COPD presents to the hospital due to increasing shortness of breath, cough, fever and hemoptysis. Patient is unable to speak but he was able to write a large part of the history down on a piece of paper. Patient notes that he had a fever of almost 103 at home. He had some hemoptysis 3 or 4 times yesterday. He denies any hemoptysis today. He has no sick contacts. He has been essentially at home with his throughout this COVID pandemic. No known COVID contacts. He is followed by our outpatient pulmonary PA and [employer]. He had a CT of his chest on 08/09/2019 which demonstrated numerous subcentimeter pulmonary nodules and a foci of tree-in-bud nodularity in the apices suggestive of mild infectious/inflammatory pneumonitis. CT chest on May 31, 2019 demonstrated inflammatory and infectious bronchiolitis in the right upper lobe. PET scan on 03/14/2019 also demonstrated patchy groundglass opacities in the right upper lobe with bilateral pulmonary nodules. He underwent a CTA of his chest on 08/19/2019 which demonstrated no evidence of pulmonary embolism, but multiple new scattered groundglass and consolidative airspace opacities predominantly in the lower lobes. There is also an inadequate filling versus thrombosis of the branch of the left inferior pulmonary vein and the left lower lobe. Patient was a previous smoker and quit in 1985. He lives in a house in [place] with his . He is retired. 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 He was exposed to dust in the past. They have 1 dog at home. No birds. No open water sources. No recent travel. Allergies Allergy/AdvReac Type Severity Reaction Status Date / Time atorvastatin AdvReac Unknown stiffness Verified 06/23/18 06:15 Home Medications Home Medications Medication Instructions Recorded Confirmed Type aspirin [Aspirin Low Dose] 81 mg PO HS 03/25/18 08/19/19 History indomethacin 1 cap PO TID PRN 03/25/18 08/19/19 History levothyroxine 125 mcg PO QAM 03/25/18 08/19/19 History nitroglycerin 1 tab SUBLINGUAL UD PRN 03/25/18 08/19/19 History paroxetine HCl [Paxil] 20 mg PO QAM 03/25/18 08/19/19 History ramipril 10 mg PO QPM 03/25/18 08/19/19 History clopidogrel 75 mg PO QAM 06/03/18 08/19/19 History budesonide 0.5 mg/2 mL suspension 0.5 mg INHALATION DAILY 06/09/19 08/19/19 History for nebulization ipratropium 0.5 mg-albuterol 3 mg 3 ml INH QID PRN 06/09/19 08/19/19 History (2.5 mg base)/3 mL nebulization soln ezetimibe 10 mg tablet 10 mg PO DAILY tab 07/18/19 08/19/19 History omeprazole 20 mg capsule,delayed 20 mg PO DAILY cap 07/18/19 08/19/19 History release revefenacin 175 mcg/3 mL solution 175 mcg INH DAILY #90 ml 08/12/19 08/19/19 Rx for nebulization Lactobacillus rhamnosus GG 1 cap PO DAILY 08/19/19 08/19/19 History albuterol sulfate 2.5 mg INHALATION Q4 PRN 08/19/19 08/19/19 History chlorhexidine gluconate 15 ml PO BID 08/19/19 08/19/19 History fluorouracil [Efudex] 1 applic TOPICAL QPM PRN 08/19/19 08/19/19 History polyethylene glycol 3350 [Miralax] 17 g PO DAILY 08/19/19 08/19/19 History triamcinolone acetonide 1 applic TOPICAL BID PRN 08/19/19 08/19/19 History Patient History Medical History Acute hypoxemic respiratory failure Anxiety (Chronic) Benign neoplasm of colon (Inactive) CAD (coronary artery disease) (Chronic) "1996 - CABG x 2" 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 LAST CHECKED REMOTELY 05/31/18 Carotid artery stenosis with cerebral infarction over 8 weeks ago The patient presented to [facility] ED on 03/26/18 with expressive aphasia, left upper extremity numbness, left lower extremity weakness. Symptoms were resolving by the time the patient arrived in the ED. Pt had R CEA while inpatient on 03/29 COPD (chronic obstructive pulmonary disease) (Chronic) Difficult airway for intubation H/o glidescope #4 with CEA 03/2018 Dyslipidemia (Chronic) GERD (gastroesophageal reflux disease) (Chronic) Gout (Chronic) History of radiation to head and neck region (Chronic) For laryngeal cancer 1985 HTN (hypertension) (Chronic) Hypothyroidism (Chronic) Ischemic stroke MARCH 25, 2018. NO DEFICITS. 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 Neck pain OCCASIONAL Obesity JAIME on CPAP (Inactive) no longer on CPAP post tracheostomy Peripheral eosinophilia Pharyngocutaneous fistula (Inactive) Sleep apnea CPAP Surgical History History of bronchoscopy History of carotid endarterectomy RIGHT (MARCH 2018) History of cataract extraction with lens replacement (Chronic) cataract extraction with IOL implant and LRI left eye - 05/02/12 History of colonoscopy with polypectomy (Chronic) History of coronary artery bypass graft (Chronic) X2 VESSEL 1995 -- [facility] History of rotator cuff surgery (Chronic) Right - 2009 History of tonsillectomy Hx of laryngectomy Family History Mother Essential hypertension Stroke Social History Preferred Language: Uzbek Communication Ability: Effective Communication Ability Comment: write answers to questions, unable to talk yet Visual Impairment: No Limitations 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 Beliefs That Will Affect Care: None marital status: Current Living Situation: Family current occupational status: retired Other Information That Helps Us Care for You: No Feels Safe at Home: Yes Safety Concerns: Feels Safe At This Time Smoking Status: Never smoker Tobacco Type: cigarettes ; Cigarettes Per Day: 60 ; Second Hand Exposure: No ; Hx Alcohol Use: No Hx Substance Use: No Review of Systems Review of Systems: All systems reviewed & are unremarkable except as noted in HPI & below Physical Exam Constitutional: WD/WN, vitals as above Eyes: PERRL, conjunctivae normal, anicteric sclerae ENMT: external ear and nose normal, oropharynx normal Neck: Tracheostomy is in place. No obvious signs of bleeding. Respiratory: normal respiratory effort, lungs clear to auscultation Cardiovascular: RRR, no murmur, no edema Gastrointestinal (Abdomen): normal bowel sounds, soft, nontender, no hepatosplenomegaly Musculoskeletal: no cyanosis or clubbing, extremities motor strength 5/5 Masslike area noted above the right clavicle. Surgical scar noted at the right anterior chest in the left thigh. This was a site of a prior harvesting for skin flap Skin: no rashes, warm and dry Neurologic: PERRL, EOMI, accommodation nl, no face palsy, no dysarthria Psychiatric: A+Ox3, euthymic affect Results & Data Results & Data ([facility]) Vital Signs (Past 12 Hours) Vital Signs Temp Pulse Resp BP Pulse Ox 08/20/19 13:20 88 18 98 08/20/19 11:58 98.1 F 87 99 H 178/73 H 99 08/20/19 07:25 64 18 96 08/20/19 04:02 61 17 120/61 99 I personally reviewed his prior laboratory data, chest imaging and pulmonary function testing PG Care Time/CCT Total # of Minutes Spent Total Time Spent with Patient: Total time spent is greater than 50% in coordination of care (as documented) at patient's floor/unit and/or counseling patient: [place] [address] Initial Inpt Care Lvl 3 Patient Type Established Diagnoses Abnormal CT scan, chest R93.89 Peripheral eosinophilia D72.[address] Z93.0 Cough with hemoptysis R04.2 Acute hypoxemic respiratory failure J96.01 Time Spent (min) 80
[2019-08-20] MEDS ORDERED: AZITHROMYCIN 500 MG in DEXTROSE 5% 250 ML IV SCH (13:45)
[2019-08-20 16:03] LABS: C Reactive Protein 7.95 mg/dl (0-0.29)
[2019-08-20] MEDS ORDERED: HydrALAZINE HCL 20 MG/ML VIAL IV PRN (16:08)
[2019-08-20 16:43] LABS: Adenovirus PCR Not Detected (NotDetected); Bordetella parapertussis PCR Not Detected (NotDetected); Bordetella pertussis PCR Not Detected (NotDetected); Chlamydia pneumoniae PCR Not Detected (NotDetected); Coronavirus 229E PCR Not Detected (NotDetected); Coronavirus HKU1 PCR Not Detected (NotDetected); Coronavirus NL63 PCR Not Detected (NotDetected); Coronavirus OC43PCR Not Detected (NotDetected); Human Metapneumovirus PCR Not Detected (NotDetected); Influenza A PCR Not Detected (NotDetected); Influenza B PCR Not Detected (NotDetected); Mycoplasma pneumoniae PCR Not Detected (NotDetected); Parainfluenza Virus 1 PCR Not Detected (NotDetected); Parainfluenza Virus 2 PCR Not Detected (NotDetected); Parainfluenza Virus 3 PCR Not Detected (NotDetected); Parainfluenza Virus 4 PCR Not Detected (NotDetected); Respiratory Syncytial VirusPCR Not Detected (NotDetected); Rhinovirus/Enterovirus PCR Not Detected (NotDetected)
[2019-08-20 20:37] LABS: Appearance Urine Clear (Clear); Bilirubin Urine Negative (Negative); Blood Urine Negative (Negative); Color Urine Yellow; Glucose Urine UA Negative (Negative); Ketones Urine Negative (Negative); Leukocyte Esterase Urine Negative (Negative); Nitrite Urine Negative (Negative); Protein Urine Negative (Negative); Specific Gravity Urine 1.018 (1.000-1.030); Urobilinogen Urine Negative (Negative)
[2019-08-21] MEDS ORDERED: LORATADINE 10 MG TAB PO ONE (01:04)
[2019-08-21] MEDS: IPRATROPIUM BROMIDE NEB SOLN 0.02% 2.5 ML VIAL INH SCH ×4 (01:04→19:31)
[2019-08-21] MEDS: LEVALBUTEROL 1.25MG/0.5ML NEB INH SCH ×4 (01:04→19:31)
[2019-08-21] MEDS: PIPERACILLIN/TAZOBACTAM 3.375 GM in DEXTROSE 5% 100 ML IV SCH ×3 (04:32→20:37)
[2019-08-21] MEDS: LEVOTHYROXINE SODIUM 125 MCG TABLET PO SCH (04:33)
[2019-08-21 06:37] LABS: Basophils # (auto) 0.04 K/uL (0-0.2); Basophils % (auto) 0.4 %; Eosinophils # (auto) 0.21 K/uL (0-0.5); Eosinophils % (auto) 1.9 %; Hematocrit (blood only) 28.6 % (42-52); Hemoglobin 8.9 g/dL (14.0-18.0); Immature Granulocytes # (auto) 0.02 K/uL (0.00-0.02); Immature Granulocytes % (auto) 0.2 %; Lymphocytes # (auto) 1.37 K/uL (1.2-3.4); Lymphocytes % (auto) 12.5 %; Mean Corpuscular Hemoglobin 25.3 pg (25-34); Mean Corpuscular Hgb Conc 31.1 g/dL (32-36); Mean Corpuscular Volume 81.3 fL (80-100); Mean Platelet Volume 8.8 fL (7.4-10.4); Monocytes # (auto) 0.86 K/uL (0.11-0.59); Monocytes % (auto) 7.8 %; Neutrophils # (auto) 8.47 K/uL (1.4-6.5); Neutrophils % (auto) 77.2 %; Platelet Count 251 K/uL (130-400); RDW Coefficient of Variation 17.6 % (11.5-14.5); RDW Standard Deviation 52.2 fL (36.4-46.3); Red Blood Count 3.52 M/uL (4.7-6.1); White Blood Count 10.97 K/uL (4.8-10.8)
[2019-08-21 07:06] LABS: BUN Creatinine Ratio 16.1 (10-20); Calcium 8.8 mg/dl (8.5-10.1); Creatinine Clr Calc Pharmacy 54.6 ml/min; Est GFR (African American) 53.2; Est GFR (Non-African American) 45.9
[2019-08-21] MEDS: BUDESONIDE 0.5 MG/2 ML VIAL (PULMICORT) INH SCH (07:19)
[2019-08-21] MEDS: LACTOBACILLUS ACIDOPHILUS (FLORANEX) TAB PO SCH (08:02)
[2019-08-21] MEDS: PARoxetine HCL 20 MG TAB PO SCH (08:02)
[2019-08-21] MEDS: EZETIMIBE 10 MG TABLET PO SCH (08:02)
[2019-08-21] MEDS: PANTOprazole 40 MG TAB PO SCH (08:02)
[2019-08-21] MEDS: UMECLIDINIUM BROMIDE 62.5MCG/BLISTER 7 PUFFS/INHALER INH SCH (08:03)
[2019-08-21] MEDS: DOXYCYCLINE HYCLATE 100 MG CAP PO SCH ×2 (08:03→20:36)
[2019-08-21] MEDS: CHLORHEXIDINE GLUCONATE 0.12% 480 ML MT SCH ×2 (08:03→20:36)
--- NOTE | 2019-08-21 11:03 | Pulmonology Progress Note ---
Date of Service August 21, 2019 Assessment & Plan (1) Abnormal CT scan, chest: 79-year-old male with history of head and neck cancer status post laryngectomy now with a tracheal stoma who presented with fever and hemoptysis. He also has abnormalities noted on his CT chest. 08/20/[address] chest since at least February 2019 when he was first found to have right upper lobe tree-in-bud opacities on the PET/CT scan. Yesterday he underwent a CTA which demonstrated diffuse groundglass opacities with a rounded appearance particularly in the lower lobes. He did have a fever. Procalcitonin was unremarkable at 0.36. Interestingly, lactate has been rising and is now up to 4.4 as of 12:22 PM. He does not appear to be in any distress at all. He appears very comfortable and notes that he feels better than he did yesterday. His hemoptysis has resolved. The concern of COVID 19 was raised and he underwent a nasopharyngeal swab yesterday which was negative. Given that he does not have a direct communication from his lungs to his nasopharynx, I am not certain how sensitive this particular COVID-19 PCR was in detecting viremia. Theoretically, if he did have a viremia, the PCR would be evident in any location in his body. Given that he had pulmonary parenchymal abnormalities since at least February 2019, I suspect that this is likely a more indolent process than an acute infection. Nonetheless, I am going to attempt to send for another COVID-19 PCR from a tracheal aspirate and for a viral PCR/mycoplasma PCR from the nasopharynx. We are also going to send for sputum culture. I have ordered for a urine Legionella as well. He is currently on Zosyn and doxycycline. He has not had fevers today. His hemoptysis is improved today. His hemoglobin has been downtrending a bit. Diffuse alveolar hemorrhage is also on the differential especially considering that he is on both aspirin and Plavix. Recommend holding these for today and reevaluating tomorrow. I am sending for autoimmune studies as well to rule out for ANCA vasculitis and other etiologies. I sent for a urine sample to see if there is any active urinary sediment. He does have an acute FIDELINA possibly related to sepsis when he first was admitted to the hospital as he was hypotensive. He has had a very significant peripheral eosinophilia in the past. Less likely differentials include hypersensitivity pneumonitis/allergic alveolitis. I have also ordered for hypersensitivity screen and an IgE. He did receive 20 mg of IV Solu-Medrol yesterday and this is likely why we are not seeing peripheral eosinophils today. If he continues to have hemoptysis tomorrow, he will need a bronchoscopy on Thursday to rule out alveolar hemorrhage. Lastly, there is a remote possibility that these findings represent a carcinoma such as lymphangitic spread of his head and neck cancer, but I do think this is much less likely. 08/21/2019 patient feeling much better today. We will repeat a chest x-ray today. No further hemoptysis for 24 hours. Okay to restart aspirin and Plavix today. If no evidence of hemoptysis today no overnight, can likely discharge home tomorrow. Will need a repeat CT chest in 3 to 4 weeks. Would recommend completing a 7-day course of antibiotics. Hypersensitivity pneumonitis panel pending. Autoimmune panel pending. Urinalysis was negative. Unlikely to be vasculitis. IgE level pending given prior eosinophilia. We did resend a COVID PCR from a tracheal aspirate. I think this is less likely to be COVID in light of the initial cover test being negative and in light of the fact that some of these opacities have been seen dating back to last year. FIDELINA seems to be resolving. Likely initial presentation was related to sepsis possibly from pneumonia. Diffuse alveolar hemorrhage seems less likely at this time. Pulmonary will continue to follow along with you. (2) Peripheral eosinophilia: (3) Tracheostomy in place: (4) Cough with hemoptysis: (5) Acute hypoxemic respiratory failure: Admission and Anticipated Discharge Date Admission Date: August 19, 2019 Subjective Patient seen and examined today. He is laying in his hospital bed. Watching TV. Doing quite well. No hemoptysis overnight. No fevers. No shortness of breath. No chest pain. Eating well. Eager to go home. Review of Systems Review of Systems: All systems reviewed & are unremarkable except as noted in HPI & below Physical Exam Constitutional: WD/WN, vitals as above Eyes: PERRL, conjunctivae normal, anicteric sclerae ENMT: external ear and nose normal, oropharynx normal Neck: Tracheostomy is in place. No obvious signs of bleeding. Respiratory: normal respiratory effort, lungs clear to auscultation Cardiovascular: RRR, no murmur, no edema Gastrointestinal (Abdomen): normal bowel sounds, soft, nontender, no hepatosplenomegaly Musculoskeletal: no cyanosis or clubbing, extremities motor strength 5/5 Masslike area noted above the right clavicle. Surgical scar noted at the right anterior chest in the left thigh. This was a site of a prior harvesting for skin flap Skin: no rashes, warm and dry Neurologic: PERRL, EOMI, accommodation nl, no face palsy, no dysarthria Psychiatric: A+Ox3, euthymic affect Results & Data Results & Data ([facility]) Vital Signs (Past 12 Hours) Vital Signs Temp Pulse Pulse Pulse Resp BP Pulse Ox 08/21/19 10:40 61 08/21/19 08:04 98.2 F 65 17 115/53 L 94 08/21/19 07:22 64 18 92 08/21/19 04:34 98.4 F 60 18 114/55 L 92 08/21/19 01:17 70 08/21/19 01:04 I personally reviewed his laboratory data, chest imaging and previous notes. 71 16 93 08/20/19 23:51 98.4 F 66 18 113/61 92 PG Care Time/CCT Total # of Minutes Spent Total Time Spent with Patient: Total time spent is greater than 50% in coordination of care (as documented) at patient's floor/unit and/or counseling patient: Coding Level of Care Code 65899 Subseq Hosp Care Lvl [address] scan, chest R93.89 Peripheral eosinophilia D72.[address] Z93.0 Cough with hemoptysis R04.2 Acute hypoxemic respiratory failure J96.01
--- NOTE | 2019-08-21 11:12 | Hospitalist Progress Note ---
Date of Service August 21, 2019 Assessment & Plan (1) Severe sepsis: 79 year old male with history of CAD, s/p Pacemaker Placement, Laryngeal CA s/p Tracheostomy, COPD, CVA presenting with fever and shortness of breath. 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 SCDs RE hemoptysis Full code Disposition lives with family at home Admission and Anticipated Discharge Date Admission Date: August 19, 2019 Subjective ff up for sepsis, pneumonia seen sitting up in bed, watching TV, comfortable feels improved today off oxygen supplement no dyspnea, less cough, less mucus suctioned no fever/chills, myalgias or arthralgias no other symptoms Review of Systems Review of Systems: All systems reviewed & are unremarkable except as noted in HPI & below Physical Exam Physical Exam: General- oriented x 3, not in distress, speaks in sentences (no voice) with no effort or accessory muscle use Eyes- anicteric Neck- no JVD trach site: no signs of infection Lungs- mild rhonchi at the bases, no wheezing Heart- normal rate, regular rhythm; no murmurs Abdomen- normal bowel sounds, nondistended, soft, nontender Extremities- no pretibial edema, no calf tenderness Neuro- alert, oriented x 3; no gross focal neurologic deficits Skin- warm & dry Results & Data Results & Data ([facility]) Vital Signs (Past 12 Hours) Vital Signs Temp Pulse Pulse Pulse Resp BP Pulse Ox 08/21/19 10:40 61 08/21/19 08:04 36.8 C 65 17 115/53 L 94 08/21/19 07:22 64 18 92 08/21/19 04:34 36.9 C 60 18 114/55 L 92 08/21/19 01:17 70 08/21/19 01:04 71 16 93 08/20/19 23:51 36.9 C 66 18 113/61 92 Laboratory Results Laboratory Results - last 24 hr 08/20/19 08/20/19 08/20/19 00:00 12:22 12:22 WBC RBC Hgb 9.5 L Hct 30.0 L MCV MCH MCHC RDW Std Deviation RDW Coeff of Sharda Plt Count MPV Immature Gran % (Auto) Neut % (Auto) Lymph % (Auto) [place] % (Auto) Eos % (Auto) Baso % (Auto) Immature Gran # (Auto) Neut # (Auto) Lymph # (Auto) [place] # (Auto) Eos # (Auto) Baso # (Auto) Sodium Potassium Chloride Carbon Dioxide Anion Gap BUN Creatinine Est Cr Clr Drug Dosing Est GFR ( Amer) Est GFR (Non-Af Amer) BUN/Creatinine Ratio Glucose Lactate 4.4 H* Calcium Total Creatine Kinase C-Reactive Protein Procalcitonin Urine Color Urine Appearance Urine pH Ur Specific [place] Urine Protein Urine Glucose (UA) Urine Ketones Urine Blood Urine Nitrite Urine Bilirubin Urine Urobilinogen Ur Leukocyte Esterase IgE Rheumatoid Factor Cycl Citrul Peptide IgG Proteinase 3 (PR3) Anti-Neutrophil (Flow) SABINO-1 Antibody SS-A/Ro Antibody SS-B/La Antibody Sm (Mckeon) Antibody TEXTILE SUPERVISOR Antibody Scl-70 Scleroderma Ab Double Strand DNA Ab Anti-Centromere Ab Glomerular Base Memb Ab Adenovirus (PCR) B. pertussis DNA (PCR) B.parapertussis DNA PCR C. pneumoniae DNA (PCR) Coronavirus OC43 (PCR) Coronavirus HKU1 (PCR) Coronavirus 229E (PCR) COVID-19 PCR NEGATIVE Coronavirus NL63 (PCR) Human Metapneumovir PCR Influenza Type A (PCR) Influenza Type B (PCR) Urine Legionella Ag M. pneumoniae (PCR) Parainfluenza 1 (PCR) Parainfluenza 2 (PCR) Parainfluenza 3 (PCR) Parainfluenza 4 (PCR) Saccharo. viridis Ab T. candidus Antibody T. vulgaris Antibody Aspergill fumigatus Ab Micropolyspora faeni Ab [place] Serum Precipitin RSV (PCR) Entero/Rhino (PCR) Beta-(1,3)-D-Glucan B-(1,3)-D-Glucan Intrp 08/20/19 08/20/19 08/20/19 12:22 15:23 15:23 WBC RBC Hgb Hct MCV MCH MCHC RDW Std Deviation RDW Coeff of Sharda Plt Count MPV Immature Gran % (Auto) Neut % (Auto) Lymph % (Auto) [place] % (Auto) Eos % (Auto) Baso % (Auto) Immature Gran # (Auto) Neut # (Auto) Lymph # (Auto) [place] # (Auto) Eos # (Auto) Baso # (Auto) Sodium Potassium Chloride Carbon Dioxide Anion Gap BUN Creatinine Est Cr Clr Drug Dosing Est GFR ( Amer) Est GFR (Non-Af Amer) BUN/Creatinine Ratio Glucose Lactate Calcium Total Creatine Kinase 117 C-Reactive Protein 7.95 H Procalcitonin 0.36 Urine Color Urine Appearance Urine pH Ur Specific [place] Urine Protein Urine Glucose (UA) Urine Ketones Urine Blood Urine Nitrite Urine Bilirubin Urine Urobilinogen Ur Leukocyte Esterase IgE Pending Rheumatoid Factor Pending Cycl Citrul Peptide IgG Proteinase 3 (PR3) Pending Anti-Neutrophil (Flow) Pending SABINO-1 Antibody Pending SS-A/Ro Antibody Pending SS-B/La Antibody Pending Sm (Mckeon) Antibody Pending TEXTILE SUPERVISOR Antibody Pending Scl-70 Scleroderma Ab Pending Double Strand DNA Ab Anti-Centromere Ab Pending Glomerular Base Memb Ab Pending Adenovirus (PCR) B. pertussis DNA (PCR) B.parapertussis DNA PCR C. pneumoniae DNA (PCR) Coronavirus OC43 (PCR) Coronavirus HKU1 (PCR) Coronavirus 229E (PCR) COVID-19 PCR Coronavirus NL63 (PCR) Human Metapneumovir PCR Influenza Type A (PCR) Influenza Type B (PCR) Urine Legionella Ag M. pneumoniae (PCR) Parainfluenza 1 (PCR) Parainfluenza 2 (PCR) Parainfluenza 3 (PCR) Parainfluenza 4 (PCR) Saccharo. viridis Ab T. candidus Antibody T. vulgaris Antibody Aspergill fumigatus Ab Micropolyspora faeni Ab [place] Serum Precipitin RSV (PCR) Entero/Rhino (PCR) Beta-(1,3)-D-Glucan Pending B-(1,3)-D-Glucan Intrp Pending 08/20/19 08/20/19 08/20/19 15:23 15:23 15:35 WBC RBC Hgb Hct MCV MCH MCHC RDW Std Deviation RDW Coeff of Sharda Plt Count MPV Immature Gran % (Auto) Neut % (Auto) Lymph % (Auto) [place] % (Auto) Eos % (Auto) Baso % (Auto) Immature Gran # (Auto) Neut # (Auto) Lymph # (Auto) [place] # (Auto) Eos # (Auto) Baso # (Auto) Sodium Potassium Chloride Carbon Dioxide Anion Gap BUN Creatinine Est Cr Clr Drug Dosing Est GFR ( Amer) Est GFR (Non-Af Amer) BUN/Creatinine Ratio Glucose Lactate Calcium Total Creatine Kinase C-Reactive Protein Procalcitonin Urine Color Urine Appearance Urine pH Ur Specific [place] Urine Protein Urine Glucose (UA) Urine Ketones Urine Blood Urine Nitrite Urine Bilirubin Urine Urobilinogen Ur Leukocyte Esterase IgE Rheumatoid Factor Cycl Citrul Peptide IgG < 0.40 Proteinase 3 (PR3) Anti-Neutrophil (Flow) SABINO-1 Antibody SS-A/Ro Antibody SS-B/La Antibody Sm (Mckeon) Antibody TEXTILE SUPERVISOR Antibody Scl-70 Scleroderma Ab Double Strand DNA Ab Pending Anti-Centromere Ab Glomerular Base Memb Ab Adenovirus (PCR) Not Detected B. pertussis DNA (PCR) Not Detected B.parapertussis DNA PCR Not Detected C. pneumoniae DNA (PCR) Not Detected Coronavirus OC43 (PCR) Not Detected Coronavirus HKU1 (PCR) Not Detected Coronavirus 229E (PCR) Not Detected COVID-19 PCR Coronavirus NL63 (PCR) Not Detected Human Metapneumovir PCR Not Detected Influenza Type A (PCR) Not Detected Influenza Type B (PCR) Not Detected Urine Legionella Ag M. pneumoniae (PCR) Not Detected Parainfluenza 1 (PCR) Not Detected Parainfluenza 2 (PCR) Not Detected Parainfluenza 3 (PCR) Not Detected Parainfluenza 4 (PCR) Not Detected Saccharo. viridis Ab Pending T. candidus Antibody Pending T. vulgaris Antibody Pending Aspergill fumigatus Ab Pending Micropolyspora faeni Ab Pending [place] Serum Precipitin Pending RSV (PCR) Not Detected Entero/Rhino (PCR) Not Detected Beta-(1,3)-D-Glucan B-(1,3)-D-Glucan Intrp 08/20/19 08/20/19 08/21/19 Unknown Unknown 06:07 WBC 10.97 H RBC 3.52 L Hgb 8.9 L Hct 28.6 L MCV 81.3 MCH 25.3 MCHC 31.1 L RDW Std Deviation 52.2 H RDW Coeff of Sharda 17.6 H Plt Count 251 MPV 8.8 Immature Gran % (Auto) 0.2 Neut % (Auto) 77.2 Lymph % (Auto) 12.5 [place] % (Auto) 7.8 Eos % (Auto) 1.9 Baso % (Auto) 0.4 Immature Gran # (Auto) 0.02 Neut # (Auto) 8.47 H Lymph # (Auto) 1.37 [place] # (Auto) 0.86 H Eos # (Auto) 0.21 Baso # (Auto) 0.04 Sodium Potassium Chloride Carbon Dioxide Anion Gap BUN Creatinine Est Cr Clr Drug Dosing Est GFR ( Amer) Est GFR (Non-Af Amer) BUN/Creatinine Ratio Glucose Lactate Calcium Total Creatine Kinase C-Reactive Protein Procalcitonin Urine Color Yellow Urine Appearance Clear Urine pH 5.0 Ur Specific [place] 1.018 Urine Protein Negative Urine Glucose (UA) Negative Urine Ketones Negative Urine Blood Negative Urine Nitrite Negative Urine Bilirubin Negative Urine Urobilinogen Negative Ur Leukocyte Esterase Negative IgE Rheumatoid Factor Cycl Citrul Peptide IgG Proteinase 3 (PR3) Anti-Neutrophil (Flow) SABINO-1 Antibody SS-A/Ro Antibody SS-B/La Antibody Sm (Mckeon) Antibody TEXTILE SUPERVISOR Antibody Scl-70 Scleroderma Ab Double Strand DNA Ab Anti-Centromere Ab Glomerular Base Memb Ab Adenovirus (PCR) B. pertussis DNA (PCR) B.parapertussis DNA PCR C. pneumoniae DNA (PCR) Coronavirus OC43 (PCR) Coronavirus HKU1 (PCR) Coronavirus 229E (PCR) COVID-19 PCR Coronavirus NL63 (PCR) Human Metapneumovir PCR Influenza Type A (PCR) Influenza Type B (PCR) Urine Legionella Ag Pending M. pneumoniae (PCR) Parainfluenza 1 (PCR) Parainfluenza 2 (PCR) Parainfluenza 3 (PCR) Parainfluenza 4 (PCR) Saccharo. viridis Ab T. candidus Antibody T. vulgaris Antibody Aspergill fumigatus Ab Micropolyspora faeni Ab [place] Serum Precipitin RSV (PCR) Entero/Rhino (PCR) Beta-(1,3)-D-Glucan B-(1,3)-D-Glucan Intrp 08/21/19 06:07 WBC RBC Hgb Hct MCV MCH MCHC RDW Std Deviation RDW Coeff of Sharda Plt Count MPV Immature Gran % (Auto) Neut % (Auto) Lymph % (Auto) [place] % (Auto) Eos % (Auto) Baso % (Auto) Immature Gran # (Auto) Neut # (Auto) Lymph # (Auto) [place] # (Auto) Eos # (Auto) Baso # (Auto) Sodium 139 Potassium 5.0 Chloride 107 Carbon Dioxide 27 Anion Gap 5.0 BUN 23 H Creatinine 1.43 H Est Cr Clr Drug Dosing 54.6 Est GFR ( Amer) 53.2 Est GFR (Non-Af Amer) 45.9 BUN/Creatinine Ratio 16.1 Glucose 87 Lactate Calcium 8.8 Total Creatine Kinase C-Reactive Protein Procalcitonin Urine Color Urine Appearance Urine pH Ur Specific [place] Urine Protein Urine Glucose (UA) Urine Ketones Urine Blood Urine Nitrite Urine Bilirubin Urine Urobilinogen Ur Leukocyte Esterase IgE Rheumatoid Factor Cycl Citrul Peptide IgG Proteinase 3 (PR3) Anti-Neutrophil (Flow) SABINO-1 Antibody SS-A/Ro Antibody SS-B/La Antibody Sm (Mckeon) Antibody TEXTILE SUPERVISOR Antibody Scl-70 Scleroderma Ab Double Strand DNA Ab Anti-Centromere Ab Glomerular Base Memb Ab Adenovirus (PCR) B. pertussis DNA (PCR) B.parapertussis DNA PCR C. pneumoniae DNA (PCR) Coronavirus OC43 (PCR) Coronavirus HKU1 (PCR) Coronavirus 229E (PCR) COVID-19 PCR Coronavirus NL63 (PCR) Human Metapneumovir PCR Influenza Type A (PCR) Influenza Type B (PCR) Urine Legionella Ag M. pneumoniae (PCR) Parainfluenza 1 (PCR) Parainfluenza 2 (PCR) Parainfluenza 3 (PCR) Parainfluenza 4 (PCR) Saccharo. viridis Ab T. candidus Antibody T. vulgaris Antibody Aspergill fumigatus Ab Micropolyspora faeni Ab [place] Serum Precipitin RSV (PCR) Entero/Rhino (PCR) Beta-(1,3)-D-Glucan B-(1,3)-D-Glucan Intrp
--- NOTE | 2019-08-21 11:56 | XRay Report ---
XR chest 1V portable CLINICAL HISTORY: follow up infiltrates dyspnea COMPARISON STUDY: 08/19/2019 FINDINGS: The upper lungs are now clear. Unchanged parenchymal infiltrate left base. Bipolar cardiac pacemaker in good position. Tracheostomy tube in good position. Improved parenchymal infiltrate right base IMPRESSION: 1. Stable parenchymal infiltrate left base. Improved parenchymal infiltrate right base 2. Lungs otherwise are clear. ACT 112: Negative or not required by law. The above report was generated using voice recognition software. It may contain grammatical, syntax or spelling errors. Electronically signed by: Wilman Varner M.D. 08/21/2019 11:54 AM
[2019-08-21] MEDS: CLOPIDOGREL BISULFATE 75 MG TAB PO SCH (12:24)
[2019-08-21] MEDS ORDERED: ASPIRIN 81 MG ECTAB PO SCH (21:00)
[2019-08-22] MEDS: IPRATROPIUM BROMIDE NEB SOLN 0.02% 2.5 ML VIAL INH SCH ×3 (01:09→13:22)
[2019-08-22] MEDS: LEVALBUTEROL 1.25MG/0.5ML NEB INH SCH ×3 (01:09→13:22)
[2019-08-22] MEDS: LEVOTHYROXINE SODIUM 125 MCG TABLET PO SCH (04:22)
[2019-08-22] MEDS: PIPERACILLIN/TAZOBACTAM 3.375 GM in DEXTROSE 5% 100 ML IV SCH ×2 (04:22→12:14)
[2019-08-22 06:27] LABS: Basophils # (auto) 0.03 K/uL (0-0.2); Basophils % (auto) 0.4 %; Eosinophils # (auto) 0.29 K/uL (0-0.5); Eosinophils % (auto) 3.4 %; Hematocrit (blood only) 27.1 % (42-52); Hemoglobin 8.6 g/dL (14.0-18.0); Immature Granulocytes # (auto) 0.02 K/uL (0.00-0.02); Immature Granulocytes % (auto) 0.2 %; Lymphocytes # (auto) 1.11 K/uL (1.2-3.4); Mean Corpuscular Hemoglobin 26.1 pg (25-34); Mean Corpuscular Hgb Conc 31.7 g/dL (32-36); Mean Corpuscular Volume 82.4 fL (80-100); Mean Platelet Volume 9.1 fL (7.4-10.4); Monocytes # (auto) 0.92 K/uL (0.11-0.59); Monocytes % (auto) 10.8 %; Neutrophils # (auto) 6.15 K/uL (1.4-6.5); Neutrophils % (auto) 72.2 %; Platelet Count 244 K/uL (130-400); RDW Standard Deviation 54.1 fL (36.4-46.3); Red Blood Count 3.29 M/uL (4.7-6.1); White Blood Count 8.52 K/uL (4.8-10.8)
[2019-08-22 07:01] LABS: BUN Creatinine Ratio 12.5 (10-20); Calcium 8.3 mg/dl (8.5-10.1); Creatinine Clr Calc Pharmacy 56.2 ml/min; Est GFR (African American) 55.1; Est GFR (Non-African American) 47.5; Potassium 4.2 mmol/L (3.5-5.1)
[2019-08-22] MEDS: EZETIMIBE 10 MG TABLET PO SCH (08:39)
[2019-08-22] MEDS: PANTOprazole 40 MG TAB PO SCH (08:39)
[2019-08-22] MEDS: PARoxetine HCL 20 MG TAB PO SCH (08:39)
[2019-08-22] MEDS: CLOPIDOGREL BISULFATE 75 MG TAB PO SCH (08:40)
[2019-08-22] MEDS: UMECLIDINIUM BROMIDE 62.5MCG/BLISTER 7 PUFFS/INHALER INH SCH (08:40)
[2019-08-22] MEDS: LACTOBACILLUS ACIDOPHILUS (FLORANEX) TAB PO SCH (08:40)
[2019-08-22] MEDS: DOXYCYCLINE HYCLATE 100 MG CAP PO SCH (08:40)
[2019-08-22] MEDS: CHLORHEXIDINE GLUCONATE 0.12% 480 ML MT SCH (08:41)
[2019-08-22] MEDS: BUDESONIDE 0.5 MG/2 ML VIAL (PULMICORT) INH SCH (08:45)
--- NOTE | 2019-08-22 09:29 | Pulmonology Progress Note ---
Date of Service August 22, 2019 Assessment & Plan (1) Abnormal CT scan, chest: --Abnormal chest CT Bilateral lower lobe mostly central groundglass opacities appreciated with tree-in-bud are new compared to CAT scan done in May 2019. The right upper lobe tree-in-bud opacity has been present even when the PET/CT was done in February 2019. This is new compared to the CAT scan from previous. Likely represents atypical pneumonia. Continue with antibiotics. Diffuse alveolar hemorrhage could look like this on CT chest but given patient is not having significant hemoptysis since coming to the hospital on top of improving chest x-ray the likelihood of it is low. Hemoglobin has been stable since the initial drop. Patient is also +3.5 L since coming to the hospital. I think there is a role also to play. Patient's initial Covid-19 from nasopharyngeal swab was negative. Covid-19 test from sputum has been sent. Autoimmune work-up has been sent. CCP less than 0.4 (negative) --Peripheral eosinophilia Patient had significant episode eosinophil count going up to 1100 in the past. After getting Solu-Medrol it has gone down. Hypersensitivity panel has been ordered along with IgE. Patient has no bronchiectasis appreciated on the CT chest --COPD Not in exacerbation On lama and ICS nebulized at home Would continue with that --Tracheostomy Status post laryngectomy done in March 2019 for his head and neck cancer Continue with trach care Plan: Patient clinically looking good. Denies any hemoptysis for more than 48 hours. Chest x-ray from yesterday showed improvement in the right lower lobe infiltrate. We will continue with antibiotics for total of 10 days. Patient will need repeat CT chest to be done in 3 to 4 weeks to make sure there is resolution of the bilateral lower lobe infiltrates. The likelihood of being Covid-19 is very low. Irrespective of the test result I think patient is stable enough to be discharged from pulmonary perspective. The hemoglobin has been stable after initial drop. With a clearing infiltrate I doubt that this is diffuse alveolar hemorrhage. Other source of blood loss should be thought about if there is still significant drop in future. Continue with pulmonary toileting and antitussive medications as needed. No further recommendation from pulmonary perspective. Please note the above document was generated using voice recognition software. It may contain grammatical, syntax or spelling errors. (2) Peripheral eosinophilia: (3) Tracheostomy in place: (4) Cough with hemoptysis: (5) Acute hypoxemic respiratory failure: Admission and Anticipated Discharge Date Admission Date: August 19, 2019 Subjective Patient seen and examined at bedside. No acute distress. In the morning patient partially dislodged his trach. But he was not in acute distress. By the time I came and saw the patient patient had already popped back the trach in by himself. There was good air appreciated on examination from the patient. It was in position. Patient denies any chest pain, no shortness of breath, no headache, no nausea or vomiting. Good appetite. No dysuria, no diarrhea. Denies any hemoptysis. Case was discussed and signed out by Dr. Zavala. Review of Systems Review of Systems: All systems reviewed & are unremarkable except as noted in HPI & below Physical Exam Physical Exam: Constitutional: No acute distress HEENT: EOMI, PERRLA, positive trach Respiratory system: Decreased air entry bilaterally, positive bilateral lower lobe crackles, no wheeze, no rhonchi CVS: S1-S2 positive, no murmurs or gallops Abdomen: Soft, nontender, nondistended, positive bowel sounds x4 Extremities: +2 pulses bilaterally radialis/ dorsalis pedis, no cyanosis, no edema Neuro: Awake alert oriented x3 Psych: Normal mood and affect G/U: No Theodore Skin: no rashes, warm and dry Lymphatic: no cervical or axillary lymphadenopathy Results & Data Results & Data ([facility]) Vital Signs (Past 12 Hours) Vital Signs Temp Pulse Resp BP Pulse Ox 08/22/19 08:45 86 18 95 08/22/19 08:00 37.0 C 68 20 160/64 H 95 08/22/19 04:00 37.9 C H 70 16 129/65 96 08/22/19 01:10 80 20 95 08/21/19 23:57 36.9 C 91 H 20 157/79 H 95 08/22/19 05:49 08/22/19 05:49 PG Care Time/CCT Total # of Minutes Spent Total Time Spent with Patient: Total time spent is greater than 50% in coord ination of care (as documented) at patient's floor/unit and/or counseling patient: Coding [place] [address] Subseq Hosp Care Lvl 3 Patient Type Established Diagnoses Abnormal CT scan, chest R93.89 Peripheral eosinophilia D72.[address] Z93.0 Cough with hemoptysis R04.2 Acute hypoxemic respiratory failure J96.01
[2019-08-22 16:25] VITALS: BP 156/74; PULSE 70; TEMP 98.2; O2SAT 95
--- NOTE | 2019-08-22 17:11 | Hospitalist Progress Note ---
Date of Service delayed entry date of service noted below August 22, 2019 Assessment & Plan (1) Severe sepsis: 79 year old male with history of CAD, s/p Pacemaker Placement, Laryngeal CA s/p Tracheostomy, COPD, CVA presenting with fever and shortness of breath. SEVERE SEPSIS SECONDARY TO PNEUMONIA S/P TRACHEOSTOMY FOR LARYNGEAL CANCER afebrile, weaned off oxygen supplement leukocytosis improved Sputum culture: negative Blood culture: negative Covid test- nasopharyngeal swab: Negative repeat Covid test- sputum: PENDING CT chest: 1. No evidence for pulmonary embolus. 2. Multiple new scattered groundglass and consolidative airspace opacities. Some of these have a somewhat rounded appearance. This favors an atypical pneumonia and could be seen in the setting of viral or fungal infections. 3. Inadequate filling versus thrombosis of the branch of the left inferior pulmonary vein seen within the left lower lobe. 4. Stable 7 mm subpleural nodule within the left lower lobe. 5. Additional findings as described above. 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 SCDs only, RE hemoptysis Full code Disposition d/c home ff up with PCP in 1 week ff up with Respiratory Therapy Technician as scheduled case and plan of care discussed with patient and his in detail all questions answered they are understanding, agreeable, comfortable with the plan of care Admission and Anticipated Discharge Date Admission Date: August 19, 2019 Subjective ff up for pneumonia seen resting in bed, comfortable in good spirits not in distress, comfortable feels better overall no shortness of breath, cough, sputum no recurrence of hemoptysis no other symptoms states he is ready and would like to be discharged Review of Systems Review of Systems: All systems reviewed & are unremarkable except as noted in HPI & below Physical Exam Physical Exam: General- oriented x 3, not in distress, speaks in sentences with no effort or accessory muscle use Eyes- anicteric Neck- no JVD trach site: no bleeding or infection signs Lungs- clear breath sounds bilaterally, no rales/wheezes Heart- normal rate, regular rhythm; no murmurs Abdomen- normal bowel sounds, nondistended, soft, nontender Extremities- no pretibial edema, no calf tenderness Neuro- alert, oriented x 3; no gross focal neurologic deficits Skin- warm & dry Results & Data Results & Data ([facility]) Vital Signs (Past 12 Hours) Vital Signs Temp Pulse Pulse Resp BP Pulse Ox 08/22/19 16:00 36.8 C 70 18 156/74 H 95 08/22/19 15:00 72 08/22/19 13:23 75 18 96 08/22/19 12:15 37.0 C 75 20 143/65 H 95 08/22/19 08:45 86 18 95 08/22/19 08:00 37.0 C 68 68 20 160/64 H 95 Laboratory Results all noted and reviewed
[2019-08-22] MEDS ORDERED: ASPIRIN 81 MG ECTAB PO SCH (20:00)
[2019-08-23] MEDS ORDERED: CLOPIDOGREL BISULFATE 75 MG TAB PO SCH (08:00)
--- NOTE | 2019-08-24 16:04 | Discharge Summary ---
Date of Service August 24, 2019 Admission HPI Per Admitting Provider History obtained from patient, family, and records. Limited history from patient secondary to nonverbal state from tracheostomy. Medical history significant for CAD status post CABG, SSS status post PPM, PVD status post surgery, hypertension, hyperlipidemia, history of CVA, COPD, past tobacco abuse, JAIME on CPAP, recurrent laryngeal cancer status post surgery and radiation, hypothyroidism, CRI (baseline creatinine 1.3-1.5), chronic anemia (baseline hemoglobin 9-10). Recent confinement [facility] last March 2019 for laryngectomy w neck dissection and reconstruction for recurrent laryngeal cancer. Patient woke up a few hours ago with hemoptysis, S OB, achy right-sided chest pain from coughing and fever of 102.7 at home. Cough symptoms noted by if patient if not careful with swallowing from time to time. No known recent sick contacts or travel. At the ER, patient received cefepime for sepsis. Aspirin also given for troponin elevation. SBP later noted to be 80s at the ER. 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 Admission Exam Per Admitting Provider GENERAL: Pleasant, minimal respiratory distress, nonverbal SKIN: Pallor , warm HEENT: Pale palpebral conjunctivae, no ptosis, dry buccal mucosa NECK : Supple, no tenderness, tracheostomy tube in place CHEST : Pacemaker left chest wall, decreased breath sounds, occasional e xpiratory wheezes, no tenderness HEART : RRR, systolic murmur ABDOMEN: Soft, nontender EXTREMITIES : No LE swelling, no LE tenderness, no other conspicuous deformities noted NEUROLOGIC : Coherent, no facial asymmetry, nonverbal, no other gross focality Principal Diagnosis SEVERE SEPSIS SECONDARY TO PNEUMONIA Discharge Exam General- oriented x 3, not in distress, speaks in sentences with no effort or accessory muscle use Eyes- anicteric Neck- no JVD trach site: no bleeding or infection signs Lungs- clear breath sounds bilaterally, no rales/wheezes Heart- normal rate, regular rhythm; no murmurs Abdomen- normal bowel sounds, nondistended, soft, nontender Extremities- no pretibial edema, no calf tenderness Neuro- alert, oriented x 3; no gross focal neurologic deficits Skin- warm & dry Discharge Data Allergies Allergy/AdvReac Type Severity Reaction Status Date / Time atorvastatin AdvReac Unknown stiffness Verified 06/23/18 06:15 Consultations 08/20/19 10:28 Consult Pulmonology Routine Ordered Studies 08/19/19 22:18 CT angio chest PE protocol Stat FINDINGS: A tracheostomy tube is in good position. There is left-sided dual- chamber pacemaker. Poststernotomy changes are noted. Limited views of the upper abdomen demonstrate a normal liver, spleen, and adrenal glands. There is a small to moderate hiatus hernia. No mediastinal or hilar lymphadenopathy. Normal caliber thoracic aorta with no evidence for dissection. The heart is normal in size. No filling defects within the pulmonary arteries to suggest pulmonary embolus. Possible thrombosed branch of the left inferior pulmonary vein best seen on image 66. However, this could be due to inadequate filling of contrast. No suspicious lytic or blastic osseous lesions. No pneumothorax. The central airways are patent. Stable 7 mm subpleural nodule within the superior segment of the left lower lobe best seen on image 194. Progression of the tree-in-bud nodular opacities within the right upper lobe. There are also multiple new scattered groundglass and consolidative airspace opacities most pronounced within the left lower lobe and periphery the right upper lobe. Some of these have a slightly rounded appearance. IMPRESSION: 1. No evidence for pulmonary embolus. 2. Multiple new scattered groundglass and consolidative airspace opacities. Some of these have a somewhat rounded appearance. This favors an atypical pneumonia and could be seen in the setting of viral or fungal infections. 3. Inadequate filling versus thrombosis of the branch of the left inferior pulmonary vein seen within the left lower lobe. 4. Stable 7 mm subpleural nodule within the left lower lobe. 5. Additional findings as described above. Area ACT 112: Negative or not required by law. Hospital Course (1) Severe sepsis: 79 year old male with history of CAD, s/p Pacemaker Placement, Laryngeal CA s/p Tracheostomy, COPD, CVA presenting with fever and shortness of breath. SEVERE SEPSIS SECONDARY TO PNEUMONIA S/P TRACHEOSTOMY FOR LARYNGEAL CANCER Sputum culture: negative Blood culture: negative Covid test- nasopharyngeal swab: Negative repeat Covid test- sputum: PENDING CT chest: 1. No evidence for pulmonary embolus. 2. Multiple new scattered groundglass and consolidative airspace opacities. Some of these have a somewhat rounded appearance. This favors an atypical pneumonia and could be seen in the setting of viral or fungal infections. 3. Inadequate filling versus thrombosis of the branch of the left inferior pulmonary vein seen within the left lower lobe. 4. Stable 7 mm subpleural nodule within the left lower lobe. 5. Additional findings as described above. 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 SCDs only, RE hemoptysis Full code Disposition d/c home ff up with PCP in 1 week ff up with [facility] as scheduled case and plan of care discussed with patient and his in detail all questions answered they are understanding, agreeable, comfortable with the plan of care Total Time Total Time Spent Total Time Spent (In Minutes): > 30 minutes Discharge Plan Discharge Items Patient Disposition: Home - Self-Care Reason For Visit: CP, SEPSIS RO COVID Discharge Diagnosis: PNEUMONIA, BOTH LUNGS Condition on Discharge: Good Activity: Resume your previous activity Activity Comment: GRADUALLY TOLERATED Lifting: Wait until after follow-up appointment Exercise/Sports: Wait until after follow-up appointment Driving/Machine Use: NO DRIVING UNTIL RE-EVALUATED AND ALLOWED BY PRIMARY CARE PHYSICIAN Non-emergency contact: Primary Care Provider Call non-emergency contact if: you have any medication questions, your symptoms worsen, you have a fever, your wound has increased redness, your wound has increased drainage and your wound pain has increased Follow-up/Referrals: David Giordano DO [Primary Care Provider] - Diet: Heart Healthy Addtl Attending Provider Instructions: YOUR NEW MEDICATIONS ARE: DOXYCYCLINE- antibiotic for pneumonia; always with food YOUR COVID-19 TEST IS STILL PENDING. WE WILL BE CALLING YOU FOR THE RESULT S OMETIME THIS WEEK. FOR NOW, PLEASE REVIEW INSTRUCTIONS ATTACHED ON HOW TO TAKE CARE OF YOURSELF AT HOME WHILE WAITING FOR THE COVID-19 TEST RESULT TO COME BACK. WHEN PERFORMING NEBULIZATION, ALWAYS MAKE SURE YOUR DOOR AND WINDOWS ARE CLOSED. YOUR FAMILY SHOULD NOT COME IN YOUR ROOM WHILE YOU ARE HAVING NEBULIZATION. THEY SHOULD COME IN AT LEAST AN HOUR AFTER YOUR LAST NEBULIZATION TREATMENT. IF YOU ARE HAVING WORSENING SYMPTOMS, INCLUDING FEVER/CHILLS, COUGH, SPUTUM PRODUCTION, DIARRHEA, JOINT OR MUSCLE PAIN, BLOOD IN THE SPUTUM, CALL YOUR PRIMARY CARE PHYSICIAN OR RETURN TO THE ER IMMEDIATELY. IF YOU ARE HAVING SHORTNESS OF BREATH, CALL 12-26- IMMEDIATELY FOLLOW UP WITH YOUR PRIMARY CARE PHYSICIAN IN 1 WEEK. THE CLINIC WILL BE CALLING YOU SOON FOR THE APPOINTMENT. FOLLOW UP WITH YOUR LUNG SPECIALIST IN 3-4 WEEKS. Pending Studies at Discharge: Yes Studies:: COVID 19 TEST RESULT AUTOIMMUNE WORK UP AND HYPERSENSITIVITY PANEL RESULTS REPEAT CT SCAN OF THE CHEST IN 3-4 WEEKS Stand-Alone Forms: My [facility] Signdat, Smoking Cessation Medications and DC Order Prescriptions: New doxycycline hyclate 100 mg Capsule 100 mg PO Q12H Qty: 14 RF: 0 Continued Yupelri 175 mcg/3 mL solution for nebulization 175 mcg INH DAILY Qty: 90 RF: 2 omeprazole 20 mg capsule,delayed release(DR/EC) 20 mg PO DAILY RF: 0 ezetimibe 10 mg tablet 10 mg PO DAILY RF: 0 ipratropium-albuterol 0.5 mg-3 mg(2.5 mg base)/3 mL solution for nebulization 3 ml INH QID PRN (Reason: Shortness Of Breath Or Wheezing) RF: 0 budesonide 0.5 mg/2 mL suspension for nebulization 0.5 mg inhalation DAILY RF: 0 aspirin [Aspirin Low Dose] 81 mg Tablet,Delayed Release (Dr/Ec) 81 mg PO HS RF: 0 paroxetine HCl [Paxil] 20 mg tablet 20 mg PO QAM RF: 0 levothyroxine 125 mcg tablet 125 mcg PO QAM RF: 0 indomethacin 25 mg capsule 1 cap PO TID PRN (Reason: Pain) RF: 0 nitroglycerin 0.4 mg tablet, sublingual 1 tab Sublingual UD PRN (Reason: Chest Pain) RF: 0 ramipril 10 mg capsule 10 mg PO QPM RF: 0 chlorhexidine gluconate 0.12 % mouthwash 15 ml PO BID RF: 0 albuterol sulfate 2.5 mg /3 mL (0.083 %) Solution For Nebulization 2.5 mg INHALATION Q4 PRN (Reason: Shortness Of Breath Or Wheezing) RF: 0 polyethylene glycol 3350 [Miralax] 17 gram Powder In Packet 17 g PO DAILY RF: 0 fluorouracil [Efudex] 5 % Cream 1 applic TOPICAL QPM PRN (Reason: FLARE UPS) RF: 0 triamcinolone acetonide 0.1 % Cream 1 applic TOPICAL BID PRN (Reason: FLARE UPS) RF: 0 Lactobacillus rhamnosus GG 10 billion cell Capsule 1 cap PO DAILY RF: 0 clopidogrel 75 mg tablet 75 mg PO QAM RF: 0 Discharge Orders: Discharge Order (Routine); Ordered 08/22/19 Ordered By: Edwin Lau Admission Data Admit Date/Time: 08/19/19 23:45 Attending Provider: Edwin Lau Admit Provider: Hal Teixeira Primary Care Provider: David Giordano Other Providers: Avelino Vogel Other Interventions: Discharge Summary Assessment (RN) Last Done: 08/22/19 17:17 DC Date/Time DO NOT enter until pt leaves facility: 08/22/19 17:45
[2019-08-25 08:42] LABS: SARS CoV2 RNA (COVID-19) NOT DETECTED
[2019-08-26 12:49] LABS: Anti-Centromere Ab <1.0 NEG AI (<1.0 NEG); Anti-Glom Basement Antibody <1.0 AI (<1.0); Anti-Neutrophil Antibody NONE DETECTED (NONE DETECTED); Anti-SS-A <1.0 NEG AI (<1.0 NEG); Anti-SS-B <1.0 NEG AI (<1.0 NEG); Fungitell (1-3)-B-D-Glucan <31; Immunoglobulin IgE 279 kU/L (<OR=114); JO 1 Antibody <1.0 NEG AI (<1.0 NEG); Proteinase-3 Ab <1.0 AI; RNP Antibody <1.0 NEG AI (<1.0 NEG); Rheumatoid Factor <14 IU/mL (<14); Scleroderma Anti Scl-70 Ab <1.0 NEG AI (<1.0 NEG); Sm Antibody <1.0 NEG AI (<1.0 NEG)
[2019-08-26 13:24] LABS: Anti-dsDNA Recombinant <1 IU/mL; Aspergillus fumigatus NEGATIVE (NEGATIVE)
== END 2019-08-22 17:45 | disposition home or self-care (01) | DRG 871 ==
LOC: ED 22:02 → 2S 23:45

== ENCOUNTER 2019-09-17 11:15 | Observation (INO) ==
[2019-09-17] MEDS ORDERED: PIPERACILL/TAZOBAC CONSULT ACTIVE PRN (11:44)
[2019-09-17] MEDS ORDERED: SODIUM CHLORIDE 0.9% 500 ML IV ONE (11:44)
[2019-09-17] MEDS ORDERED: methylPREDNISolone 60 MG in SYRINGE 1 ML IV STA (11:44)
[2019-09-17] MEDS ORDERED: ACETAMINOPHEN 1,000 MG/100 ML VIAL IV STA (11:44)
[2019-09-17] MEDS ORDERED: PIPERACILLIN/TAZOBACTAM 4.5 GM/120 ML BAG IV ONE (11:44)
--- NOTE | 2019-09-17 11:52 | Emergency Department Note ---
Impression & Plan SOB (shortness of breath), Pneumonia, Fever, Tracheostomy in place ED Provider Note NAME: ALEXANDRA PETERS AGE: 79 SEX: M : 1940 ARRIVES VIA: Walk-In INFORMANT: [Patient][] ED PROVIDER(S): [Joby Brooks MD] CHIEF COMPLAINT: Fever and shortness of breath HISTORY OF PRESENT ILLNESS: The patient is an 79-year-old male with a tracheostomy. He has a history of recurrent pneumonia. The patient was in this hospital and discharged in late July, less than a month ago. He was in for sepsis and pneumonia. During this timeframe, his coronavirus testing was negative. The patient presents with 24 hours of increasing dyspnea, fever, chills. He has been coughing quite a bit and as result of the coughing, his right chest is sore. The patient states that he has had increased sputum production from his tracheostomy. He is using his nebulizer as prescribed. There has been no new coronavirus exposures. The patient has not had vomiting or diarrhea. No abdominal pain. The chest pain is moderate in severity and is on the right, it is worse to cough. No pain radiation. It is described as a soreness. REVIEW OF SYSTEMS: See HPI for pertinent positives and negatives. A total of ten systems were reviewed and were otherwise negative. PMHx/PSHx: See Below SOCIAL HISTORY: See Below. PHYSICAL EXAM: GENERAL: Patient is in mild respiratory distress. HEENT: No acute trauma, normocephalic atraumatic, mucous membranes moist, no nasal congestion, no scleral icterus. NECK: No stridor, no adenopathy, no meningismus, trachea is midline. Tra cheostomy in place with some yellow sputum production noted. LUNGS: Increased respiratory rate, equal chest rise. Very mild respiratory distress was noted. No obvious wheeze. I could not assess lung sounds further as there was no coronavirus stethoscope available. HEART: Regular rate and rhythm, I could not assess for murmurs as there was no coronavirus of the scope available. Chest: The patient has a large scar to the right chest wall consistent with his surgery for his tracheostomy. No rash. ABDOMEN: Soft, nontender, bowel sounds positive, no hernias, no peritonitis. EXTREMITIES: No cyanosis or edema, full range of motion of all the joints without pain or difficulty, no signs for acute trauma. NEUROLOGIC: Oriented x 3, no acute motor or sensory deficits, no focal weakness. SKIN: No rash, no jaundice, no diaphoresis. DIFFERENTIAL DIAGNOSIS: Sepsis, UTI, pneumonia, metabolic, coronavirus, bronchitis, flare of COPD, electrolyte abnormalities, cardiac sources, intracerebral event, toxicologic, neurologic, as well as other pathologies. EMERGENCY DEPARTMENT COURSE/PROCEDURES: ECG: Indication was shortness of breath. The EKG shows an atrial pacemaker. The rate is 80. There is some nonspecific ST change in the inferior and lateral leads. There is no ST elevation, no PVCs. The QTc is 433. Compared to an ECG from 20 August 2019, the nonspecific ST change is now present. Continuous Cardiac Monitoring: An order was placed for continuous cardiac monitoring. The monitor shows a rate of 64 with an atrial pacemaker. Critical Care Note: I have personally spent greater than 34 minutes of critical care time in the direct management of this patient. This includes bedside care, interpretation of diagnostic studies, and testing, discussion with consultants, patient, and family members, and other required patient management activities. This 34 minutes is in excess of all separately billable procedures. MEDICAL DECISION MAKING: There is a mild leukocytosis, this of course would be consistent with infection. The patient is anemic but this is baseline when looking back at previous testing. There is a normal platelet count. No coagulopathy. No significant electrolyte abnormality or kidney failure. Lactic acid level is elevated at 2.4, consistent with infection or possibly sepsis. No liver enzyme elevation. Procalcitonin level was normal. EKG showed atrial pacing, no acute ischemia. Cardiac enzyme testing x1 is not consistent with acute cardiac injury. Chest film showed some chronic findings, no new acute infiltrate/pneumonia was seen. Rapid coronavirus testing was negative. The patient was aggressively managed as he presented short of breath and febrile. He has a tracheostomy and has been septic from pneumonia in the past. The patient received IV saline for hydration. He was given IV Solu-Medrol to help with bronchospasm. He received IV Zosyn as empiric antibiotic coverage. He was given IV Tylenol for his fever. Patient is feeling improved, he looks to be breathing easier. I do think hospitalization is warranted. He likely has an early pneumonia and/or bronchitis which has flared his COPD. He is not stable for discharge home. I spoke to the patient, I talked with the case checker. The on-call hospitalist has been consulted. 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 LAST CHECKED REMOTELY 05/31/18 Carotid artery stenosis with cerebral infarction over 8 weeks ago The patient presented to [facility] ED on 03/26/18 with expressive aphasia, left upper extremity numbness, left lower extremity weakness. Symptoms were resolving by the time the patient arrived in the ED. Pt had R CEA while inpatient on 03/29 COPD (chronic obstructive pulmonary disease) (Chronic) COPD (chronic obstructive pulmonary disease) Difficult airway for intubation H/o glidescope #4 with CEA 03/2018 Dyslipidemia (Chronic) GERD (gastroesophageal reflux disease) (Chronic) Gout (Chronic) History of radiation to head and neck region (Chronic) For laryngeal cancer 1985 HTN (hypertension) (Chronic) Hypothyroidism (Chronic) Ischemic stroke MARCH 25, 2018. NO DEFICITS. 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 Left lower lobe pulmonary nodule Neck pain OCCASIONAL Obesity JAIME on CPAP (Inactive) no longer on CPAP post tracheostomy Peripheral eosinophilia Pharyngocutaneous fistula (Inactive) Sleep apnea CPAP Surgical History History of bronchoscopy History of carotid endarterectomy RIGHT (MARCH 2018) History of cataract extraction with lens replacement (Chronic) cataract extraction with IOL implant and LRI left eye - 05/02/12 History of colonoscopy with polypectomy (Chronic) History of coronary artery bypass graft (Chronic) X2 VESSEL 1995 -- [facility] History of rotator cuff surgery (Chronic) Right - 2009 History of tonsillectomy Hx of laryngectomy Family History Mother Essential hypertension Stroke Social History Preferred Language: Tajik Communication Ability: Effective Visual Impairment: No Limitations District Agent Required: No Beliefs That Will Affect Care: None marital status: Current Living Situation: Family current occupational status: retired Feels Safe at Home: Yes Smoking Status: Former smoker Tobacco Type: cigarettes ; Cigarettes Per Day: 60 ; Second Hand Exposure: No ; Hx Alcohol Use: No Hx Substance Use: No Allergies Allergies Allergy/AdvReac Type Severity Reaction Status Date / Time atorvastatin AdvReac Unknown stiffness Verified 09/17/19 12:15 Home Meds Home Medications Medication Instructions Recorded Confirmed aspirin [Aspirin Low Dose] 81 mg PO HS 03/25/18 09/17/19 indomethacin 1 cap PO TID PRN MDD Gout 03/25/18 09/17/19 levothyroxine 125 mcg PO QAM 03/25/18 09/17/19 nitroglycerin 1 tab SUBLINGUAL UD PRN 03/25/18 09/17/19 paroxetine HCl [Paxil] 20 mg PO HS 03/25/18 09/17/19 clopidogrel 75 mg PO QAM 06/03/18 09/17/19 ipratropium 0.5 mg-albuterol 3 mg 3 ml INH QID PRN 06/09/19 09/17/19 (2.5 mg base)/3 mL nebulization soln albuterol sulfate 2.5 mg INHALATION QID PRN 08/19/19 09/17/19 omeprazole 20 mg tablet,delayed 20 mg PO QAM 09/06/19 09/17/19 release Yupelri 175 mcg INH QAM 09/17/19 09/17/19 amlodipine 5 mg PO HS 09/17/19 09/17/19 budesonide 0.5 mg INHALATION DAILY 09/17/19 09/17/19 metoprolol succinate 12.5 mg PO BID 09/17/19 09/17/19 Results & Data (ED) Vital Signs Vital Signs - 24 hr 09/17/19 11:19 09/17/19 11:33 09/17/19 11:40 Temperature 38.5 C H Temperature Source Oral Pulse Rate 71 68 64 Pulse Rate from SpO2 Sensor 68 64 Respiratory Rate 30 H 19 Respiratory Effort / Characteristics Short of Breath Blood Pressure 132/75 Blood Pressure Mean 94 Blood Pressure Position Sitting Pulse Oximetry 93 93 94 Oxygen Delivery Method Room Air Room Air Room Air Sepsis Recent Fever Within 48 Hours Yes Sepsis New/Unexplained Change in Mental Status No Sepsis Action Taken by Nursing No Action Required 09/17/19 11:50 09/17/19 12:00 09/17/19 12:10 Temperature Temperature Source Pulse Rate 60 61 64 Pulse Rate from SpO2 Sensor 60 61 64 Respiratory Rate 28 H 25 H 21 Respiratory Effort / Characteristics Blood Pressure Blood Pressure Mean Blood Pressure Position Pulse Oximetry 94 92 93 Oxygen Delivery Method Room Air Room Air Room Air Sepsis Recent Fever Within 48 Hours Sepsis New/Unexplained Change in Mental Status Sepsis Action Taken by Nursing 09/17/19 12:20 09/17/19 12:30 09/17/19 12:40 Temperature Temperature Source Pulse Rate 62 60 66 Pulse Rate from SpO2 Sensor 65 Respiratory Rate 26 H 27 H 23 Respiratory Effort / Characteristics Blood Pressure Blood Pressure Mean Blood Pressure Position Pulse Oximetry 93 Oxygen Delivery Method Room Air Room Air Room Air Sepsis Recent Fever Within 48 Hours Sepsis New/Unexplained Change in Mental Status Sepsis Action Taken by Nursing 09/17/19 12:50 09/17/19 13:00 09/17/19 13:10 Temperature Temperature Source Pulse Rate 67 60 61 Pulse Rate from SpO2 Sensor 60 59 L Respiratory Rate 29 H 24 17 Respiratory Effort / Characteristics Blood Pressure Blood Pressure Mean Blood Pressure Position Pulse Oximetry 94 92 Oxygen Delivery Method Room Air Room Air Room Air Sepsis Recent Fever Within 48 Hours Sepsis New/Unexplained Change in Mental Status Sepsis Action Taken by Nursing 09/17/19 13:20 09/17/19 13:30 09/17/19 13:40 Temperature Temperature Source Pulse Rate 61 60 61 Pulse Rate from SpO2 Sensor 61 60 61 Respiratory Rate 27 H 21 21 Respiratory Effort / Characteristics Blood Pressure Blood Pressure Mean Blood Pressure Position Pulse Oximetry 93 95 93 Oxygen Delivery Method Room Air Room Air Room Air Sepsis Recent Fever Within 48 Hours Sepsis New/Unexplained Change in Mental Status Sepsis Action Taken by Nursing 09/17/19 13:50 09/17/19 14:00 09/17/19 14:04 Temperature Temperature Source Pulse Rate 61 60 84 Pulse Rate from SpO2 Sensor 61 60 84 Respiratory Rate 27 H 17 23 Respiratory Effort / Characteristics Blood Pressure 113/66 Blood Pressure Mean 86 Blood Pressure Position Pulse Oximetry 92 93 94 Oxygen Delivery Method Room Air Room Air Room Air Sepsis Recent Fever Within 48 Hours Sepsis New/Unexplained Change in Mental Status Sepsis Action Taken by Nursing 09/17/19 14:10 09/17/19 14:20 09/17/19 14:30 Temperature Temperature Source Pulse Rate 63 60 71 Pulse Rate from SpO2 Sensor 63 60 70 Respiratory Rate 26 H 18 23 Respiratory Effort / Characteristics Blood Pressure Blood Pressure Mean Blood Pressure Position Pulse Oximetry 94 94 95 Oxygen Delivery Method Room Air Room Air Room Air Sepsis Recent Fever Within 48 Hours Sepsis New/Unexplained Change in Mental Status Sepsis Action Taken by Nursing 09/17/19 14:40 09/17/19 14:50 09/17/19 15:00 Temperature Temperature Source Pulse Rate 64 71 60 Pulse Rate from SpO2 Sensor 64 71 60 Respiratory Rate 21 20 17 Respiratory Effort / Characteristics Blood Pressure Blood Pressure Mean Blood Pressure Position Pulse Oximetry 95 95 92 Oxygen Delivery Method Room Air Room Air Room Air Sepsis Recent Fever Within 48 Hours Sepsis New/Unexplained Change in Mental Status Sepsis Action Taken by Nursing 09/17/19 15:10 09/17/19 15:20 09/17/19 15:30 Temperature Temperature Source Pulse Rate 60 61 60 Pulse Rate from SpO2 Sensor 60 61 60 Respiratory Rate 19 21 22 Respiratory Effort / Characteristics Blood Pressure 124/45 L Blood Pressure Mean 69 Blood Pressure Position Pulse Oximetry 94 94 93 Oxygen Delivery Method Room Air Room Air Room Air Sepsis Recent Fever Within 48 Hours Sepsis New/Unexplained Change in Mental Status Sepsis Action Taken by Nursing 09/17/19 15:40 09/17/19 15:50 09/17/19 16:00 Temperature Temperature Source Pulse Rate 61 65 67 Pulse Rate from SpO2 Sensor 61 65 67 Respiratory Rate 19 26 H 21 Respiratory Effort / Characteristics Blood Pressure 140/62 Blood Pressure Mean 80 Blood Pressure Position Pulse Oximetry 92 95 95 Oxygen Delivery Method Room Air Room Air Sepsis Recent Fever Within 48 Hours Sepsis New/Unexplained Change in Mental Status Sepsis Action Taken by Nursing 09/17/19 16:10 09/17/19 16:20 09/17/19 16:22 Temperature Temperature Source Pulse Rate 61 60 62 Pulse Rate from SpO2 Sensor 61 60 59 L Respiratory Rate 15 22 23 Respiratory Effort / Characteristics Blood Pressure 140/62 Blood Pressure Mean 80 Blood Pressure Position Pulse Oximetry 95 95 91 Oxygen Delivery Method Sepsis Recent Fever Within 48 Hours Sepsis New/Unexplained Change in Mental Status Sepsis Action Taken by Nursing 09/17/19 16:30 09/17/19 16:31 09/17/19 16:40 Temperature Temperature Source Pulse Rate 63 63 62 Pulse Rate from SpO2 Sensor 63 62 62 Respiratory Rate 24 22 15 Respiratory Effort / Characteristics Blood Pressure 149/63 H Blood Pressure Mean 79 Blood Pressure Position Pulse Oximetry 95 95 94 Oxygen Delivery Method Sepsis Recent Fever Within 48 Hours Sepsis New/Unexplained Change in Mental Status Sepsis Action Taken by Nursing 09/17/19 16:50 09/17/19 17:00 09/17/19 17:10 Temperature Temperature Source Pulse Rate 61 60 63 Pulse Rate from SpO2 Sensor 61 60 63 Respiratory Rate 19 21 20 Respiratory Effort / Characteristics Blood Pressure 140/58 L Blood Pressure Mean 101 Blood Pressure Position Pulse Oximetry 96 94 94 Oxygen Delivery Method Sepsis Recent Fever Within 48 Hours Sepsis New/Unexplained Change in Mental Status Sepsis Action Taken by Nursing 09/17/19 17:20 Temperature Temperature Source Pulse Rate 60 Pulse Rate from SpO2 Sensor Respiratory Rate 22 Respiratory Effort / Characteristics Blood Pressure Blood Pressure Mean Blood Pressure Position Pulse Oximetry Oxygen Delivery Method Sepsis Recent Fever Within 48 Hours Sepsis New/Unexplained Change in Mental Status Sepsis Action Taken by Detention Medications Current Medication List: was personally reviewed by me Laboratory Data Attestation: I reviewed the patient's lab results. Result diagrams: 09/17/19 12:32 09/17/19 12:32 Lab Results 09/17/19 09/17/19 09/17/19 Range/Units 12:32 12:32 12:32 WBC 12.29 H (4.8-10.8) K/uL RBC 4.07 L (4.7-6.1) M/uL Hgb 10.4 L (14.0-18.0) g/dL Hct 33.2 L (42-52) % MCV 81.6 (80-100) fL MCH 25.6 (25-34) pg MCHC 31.3 L (32-36) g/dL RDW Std Deviation 50.5 H (36.4-46.3) fL RDW Coeff of Sharda 16.8 H (11.5-14.5) % Plt Count 256 (130-400) K/uL MPV 9.1 (7.4-10.4) fL Immature Gran % (Auto) 0.2 % Neut % (Auto) 82.7 % Lymph % (Auto) 6.0 % [place] % (Auto) 7.2 % Eos % (Auto) 3.7 % Baso % (Auto) 0.2 % Immature Gran # (Auto) 0.02 (0.00-0.02) K/uL Neut # (Auto) 10.15 H (1.4-6.5) K/uL Lymph # (Auto) 0.74 L (1.2-3.4) K/uL [place] # (Auto) 0.89 H (0.11-0.59) K/uL Eos # (Auto) 0.46 (0-0.5) K/uL Baso # (Auto) 0.03 (0-0.2) K/uL PT 10.7 (9.0-12.0) Seconds INR 1.0 (0.9-1.1) APTT 22.8 (21.0-31.0) Seconds PTT Ratio 0.8 Sodium 141 (136-145) mmol/L Potassium 4.3 (3.5-5.1) mmol/L Chloride 106 (98-107) mmol/L Carbon Dioxide 25 (21-32) mmol/L Anion Gap 10.0 (3-11) BUN 14 (7-18) mg/dl Creatinine 1.37 (0.6-1.4) mg/dl Est Cr Clr Drug Dosing 55.8 ml/min Est GFR ( Amer) 56.1 Est GFR (Non-Af Amer) 48.4 BUN/Creatinine Ratio 10.3 (10-20) Glucose 96 (70-99) mg/dl Lactate (0.4-2.0) mmol/L Calcium 8.5 (8.5-10.1) mg/dl Magnesium 2.0 (1.8-2.4) mg/dl Total Bilirubin 0.7 (0.2-1) mg/dl AST 16 (15-37) U/L ALT 19 (12-78) U/L Alkaline Phosphatase 83 (45-117) U/L Troponin I < 0.015 (0-0.045) ng/ml Total Protein 7.4 (6.4-8.2) gm/dl Albumin 3.5 (3.4-5.0) gm/dl Globulin 3.9 (2.5-4.0) gm/dl Albumin/Globulin Ratio 0.9 (0.9-2) Procalcitonin (0-0.5) ng/ml COVID-19 PCR (Negative) SARS-CoV-2 RNA (RT-PCR) 09/17/19 09/17/19 09/17/19 Range/Units 12:32 12:32 14:05 WBC (4.8-10.8) K/uL RBC (4.7-6.1) M/uL Hgb (14.0-18.0) g/dL Hct (42-52) % MCV (80-100) fL MCH (25-34) pg MCHC (32-36) g/dL RDW Std Deviation (36.4-46.3) fL RDW Coeff of Sharda (11.5-14.5) % Plt Count (130-400) K/uL MPV (7.4-10.4) fL Immature Gran % (Auto) % Neut % (Auto) % Lymph % (Auto) % [place] % (Auto) % Eos % (Auto) % Baso % (Auto) % Immature Gran # (Auto) (0.00-0.02) K/uL Neut # (Auto) (1.4-6.5) K/uL Lymph # (Auto) (1.2-3.4) K/uL [place] # (Auto) (0.11-0.59) K/uL Eos # (Auto) (0-0.5) K/uL Baso # (Auto) (0-0.2) K/uL PT (9.0-12.0) Seconds INR (0.9-1.1) APTT (21.0-31.0) Seconds PTT Ratio Sodium (136-145) mmol/L Potassium (3.5-5.1) mmol/L Chloride (98-107) mmol/L Carbon Dioxide (21-32) mmol/L Anion Gap (3-11) BUN (7-18) mg/dl Creatinine (0.6-1.4) mg/dl Est Cr Clr Drug Dosing ml/min Est GFR ( Amer) Est GFR (Non-Af Amer) BUN/Creatinine Ratio (10-20) Glucose (70-99) mg/dl Lactate 2.4 H* (0.4-2.0) mmol/L Calcium (8.5-10.1) mg/dl Magnesium (1.8-2.4) mg/dl Total Bilirubin (0.2-1) mg/dl AST (15-37) U/L ALT (12-78) U/L Alkaline Phosphatase (45-117) U/L Troponin I (0-0.045) ng/ml Total Protein (6.4-8.2) gm/dl Albumin (3.4-5.0) gm/dl Globulin (2.5-4.0) gm/dl Albumin/Globulin Ratio (0.9-2) Procalcitonin 0.09 (0-0.5) ng/ml COVID-19 PCR (Negative) SARS-CoV-2 RNA (RT-PCR) Cancelled 09/17/19 09/17/19 Range/Units 14:05 15:07 WBC (4.8-10.8) K/uL RBC (4.7-6.1) M/uL Hgb (14.0-18.0) g/dL Hct (42-52) % MCV (80-100) fL MCH (25-34) pg MCHC (32-36) g/dL RDW Std Deviation (36.4-46.3) fL RDW Coeff of Sharda (11.5-14.5) % Plt Count (130-400) K/uL MPV (7.4-10.4) fL Immature Gran % (Auto) % Neut % (Auto) % Lymph % (Auto) % [place] % (Auto) % Eos % (Auto) % Baso % (Auto) % Immature Gran # (Auto) (0.00-0.02) K/uL Neut # (Auto) (1.4-6.5) K/uL Lymph # (Auto) (1.2-3.4) K/uL [place] # (Auto) (0.11-0.59) K/uL Eos # (Auto) (0-0.5) K/uL Baso # (Auto) (0-0.2) K/uL PT (9.0-12.0) Seconds INR (0.9-1.1) APTT (21.0-31.0) Seconds PTT Ratio Sodium (136-145) mmol/L Potassium (3.5-5.1) mmol/L Chloride (98-107) mmol/L Carbon Dioxide (21-32) mmol/L Anion Gap (3-11) BUN (7-18) mg/dl Creatinine (0.6-1.4) mg/dl Est Cr Clr Drug Dosing ml/min Est GFR ( Amer) Est GFR (Non-Af Amer) BUN/Creatinine Ratio (10-20) Glucose (70-99) mg/dl Lactate 2.0 (0.4-2.0) mmol/L Calcium (8.5-10.1) mg/dl Magnesium (1.8-2.4) mg/dl Total Bilirubin (0.2-1) mg/dl AST (15-37) U/L ALT (12-78) U/L Alkaline Phosphatase (45-117) U/L Troponin I (0-0.045) ng/ml Total Protein (6.4-8.2) gm/dl Albumin (3.4-5.0) gm/dl Globulin (2.5-4.0) gm/dl Albumin/Globulin Ratio (0.9-2) Procalcitonin (0-0.5) ng/ml COVID-19 PCR NEGATIVE (Negative) SARS-CoV-2 RNA (RT-PCR) Administered Medications Miscellaneous Information (Consult) 1 ea N/A UD PRN PRN Reason: Consult Stop: 10/17/19 11:43 Last Admin: 09/17/19 12:35 Dose: 1 ea Documented by: [id number] Discontinued Medications Sodium Chloride (Nss) 500 mls @ 999 mls/hr IV .Q31M ONE Stop: 09/17/19 12:14 Last Infusion: 09/17/19 13:12 Dose: 0 mls/hr Documented by: [id number] Admin: 09/17/19 12:34 Dose: 999 mls/hr Documented by: [id number] Piperacillin Sod/Tazobactam Sod (Zosyn) 4.5 gm in 120 mls @ 240 mls/hr IV NOW ONE Stop: 09/17/19 12:13 Last Infusion: 09/17/19 13:12 Dose: 0 mls/hr Documented by: [id number] Admin: 09/17/19 12:35 Dose: 240 mls/hr Documented by: [id number] Methylprednisolone 60 mg/ (Syringe) 1.96 mls @ 1.5 mls/min IV NOW STA Stop: 09/17/19 11:45 Last Admin: 09/17/19 12:35 Dose: 1.5 mls/min Documented by: [id number] Acetaminophen (Ofirmev) 1,000 mg in 100 mls @ 400 mls/hr IV NOW STA Stop: 09/17/19 11:58 Last Infusion: 09/17/19 12:59 Dose: 0 mls/hr Documented by: [id number] Admin: 09/17/19 12:34 Dose: 400 mls/hr Documented by: [id number] Methylprednisolone (Solumedrol) Confirm Administered Dose 125 mg .ROUTE .STK-MED ONE Stop: 09/17/19 12:08 Last Admin: 09/17/19 12:35 Dose: Not Given Documented by: [id number] Imaging Data Radiologist's Impression: XR chest 1V portable HISTORY: SEPSIS COMPARISON: Chest 08/21/2019. Outside hospital chest CT 09/01/2019. FINDINGS: The heart remains normal in size. There is left-sided dual-chamber pacemaker. There are poststernotomy changes. No pneumothorax. No pleural effusions. Punctate calcified granuloma within the right midlung zone. Mild interstitial thickening which is likely chronic. Tracheostomy tube is unchanged in position. Stable linear density left lung base consistent with subsegmental atelectasis. Mild peripheral interstitial thickening within the right upper lobe is also unchanged and likely chronic. No new focal lung consolidations to suggest pneumonia. IMPRESSION: No significant change compared to the prior study. No acute process. Blood Pressure Blood Pressure Findings: Elevated blood pressure Blood Pressure Disposition: further management by hospitalist Discharge Plan Visit Data Chief Complaint: Shortness of Breath/Dyspnea Stated Complaint: CHEST TIGHTNESS, SOB ED Provider: Joby Brooks Discharge Problem: SOB (shortness of breath), Pneumonia, Fever, Tracheostomy in place Patient Disposition: Being Evaluated by Hospitalist Condition: Fair Forms Stand Alone Forms: [facility] Prescriptions Prescriptions: No Action omeprazole 20 mg tablet,delayed release (DR/EC) 20 mg PO QAM RF: 0 ipratropium-albuterol 0.5 mg-3 mg(2.5 mg base)/3 mL solution for nebulization 3 ml INH QID PRN (Reason: Shortness Of Breath Or Wheezing) RF: 0 aspirin [Aspirin Low Dose] 81 mg Tablet,Delayed Release (Dr/Ec) 81 mg PO HS RF: 0 paroxetine HCl [Paxil] 20 mg tablet 20 mg PO HS RF: 0 levothyroxine 125 mcg tablet 125 mcg PO QAM RF: 0 indomethacin 25 mg capsule 1 cap PO TID MDD Gout PRN (Reason: Pain) RF: 0 nitroglycerin 0.4 mg tablet, sublingual 1 tab Sublingual UD PRN (Reason: Chest Pain) RF: 0 albuterol sulfate 2.5 mg /3 mL (0.083 %) Solution For Nebulization 2.5 mg INHALATION QID PRN (Reason: Shortness Of Breath Or Wheezing) RF: 0 clopidogrel 75 mg tablet 75 mg PO QAM RF: 0 amlodipine 5 mg tablet 5 mg PO HS RF: 0 metoprolol succinate 25 mg tablet extended release 24 hr 12.5 mg PO BID RF: 0 budesonide 0.5 mg/2 mL Suspension For Nebulization 0.5 mg INHALATION DAILY RF: 0 Yupelri 175 mcg/3 mL solution for nebulization 175 mcg INH QAM RF: 0 Referrals Referrals: David Giordano DO [Primary Care Provider] - Discharge Problem: Pneumonia Qualifiers: Pneumonia type: due to unspecified organism Laterality: unspecified laterality Lung location: unspecified part of lung Qualified Code(s): J18.9 - Pneumonia, unspecified organism Fever Qualifiers: Fever type: unspecified Qualified Code(s): R50.9 - Fever, unspecified
[2019-09-17] MEDS ORDERED: methylPREDNISolone 125 MG/2 ML VIAL ONE (12:07)
--- NOTE | 2019-09-17 12:20 | Electrocardiogram Report ---
Test Reason : Blood Pressure : / mmHG Vent. Rate : 080 BPM Atrial Rate : 080 BPM P-R Int : 202 ms QRS Dur : 090 ms QT Int : 376 ms P-R-T Axes : 042 081 066 degrees QTc Int : 433 ms Atrial-paced rhythm Voltage criteria for left ventricular hypertrophy Nonspecific ST abnormality Abnormal ECG When compared with ECG of 20-AUG-2019 07:05, Nonspecific T wave abnormality now evident in Inferior leads Nonspecific T wave abnormality, improved in Lateral leads QT has shortened Confirmed by Kris Rod ([id number]) on 09/17/2019 12:20:21 PM Referred By: REFERRED SELF Confirmed By:Kris Rod
[2019-09-17 12:48] LABS: Basophils # (auto) 0.03 K/uL (0-0.2); Basophils % (auto) 0.2 %; Eosinophils # (auto) 0.46 K/uL (0-0.5); Eosinophils % (auto) 3.7 %; Hematocrit (blood only) 33.2 % (42-52); Hemoglobin 10.4 g/dL (14.0-18.0); Immature Granulocytes # (auto) 0.02 K/uL (0.00-0.02); Immature Granulocytes % (auto) 0.2 %; Lymphocytes # (auto) 0.74 K/uL (1.2-3.4); Mean Corpuscular Hemoglobin 25.6 pg (25-34); Mean Corpuscular Hgb Conc 31.3 g/dL (32-36); Mean Corpuscular Volume 81.6 fL (80-100); Mean Platelet Volume 9.1 fL (7.4-10.4); Monocytes # (auto) 0.89 K/uL (0.11-0.59); Monocytes % (auto) 7.2 %; Neutrophils # (auto) 10.15 K/uL (1.4-6.5); Neutrophils % (auto) 82.7 %; Platelet Count 256 K/uL (130-400); RDW Coefficient of Variation 16.8 % (11.5-14.5); RDW Standard Deviation 50.5 fL (36.4-46.3); Red Blood Count 4.07 M/uL (4.7-6.1); White Blood Count 12.29 K/uL (4.8-10.8)
[2019-09-17 12:58] LABS: Partial Thromboplastin Ratio 0.8; Partial Thromboplastin Time 22.8 Seconds (21.0-31.0); Prothrombin Time 10.7 Seconds (9.0-12.0)
[2019-09-17 13:04] LABS: Alanine Aminotransferase 19 U/L (12-78); Albumin Level 3.5 gm/dl (3.4-5.0); Aspartate Aminotransferase 16 U/L (15-37); BUN Creatinine Ratio 10.3 (10-20); Blood Urea Nitrogen 14 mg/dl (7-18); Calcium 8.5 mg/dl (8.5-10.1); Carbon Dioxide 25 mmol/L (21-32); Chloride 106 mmol/L (98-107); Creatinine Clr Calc Pharmacy 55.8 ml/min; Est GFR (African American) 56.1; Est GFR (Non-African American) 48.4; Glucose 96 mg/dl (70-99); Potassium 4.3 mmol/L (3.5-5.1); Sodium 141 mmol/L (136-145)
[2019-09-17 13:09] LABS: Albumin Globulin Ratio 0.9 (0.9-2); Alkaline Phosphatase 83 U/L (45-117); Bilirubin,Total 0.7 mg/dl (0.2-1); Globulin 3.9 gm/dl (2.5-4.0); Total Protein 7.4 gm/dl (6.4-8.2); Troponin I < 0.015 ng/ml (0-0.045)
--- NOTE | 2019-09-17 13:12 | XRay Report ---
XR chest 1V portable HISTORY: SEPSIS COMPARISON: Chest 08/21/2019. Outside hospital chest CT 09/01/2019. FINDINGS: The heart remains normal in size. There is left-sided dual-chamber pacemaker. There are pos tsternotomy changes. No pneumothorax. No pleural effusions. Punctate calcified granuloma within the r ight midlung zone. Mild interstitial thickening which is likely chronic. Tracheostomy tube is unchang ed in position. Stable linear density left lung base consistent with subsegmental atelectasis. Mild p eripheral interstitial thickening within the right upper lobe is also unchanged and likely chronic. N o new focal lung consolidations to suggest pneumonia. IMPRESSION: No significant change compared to the prior study. No acute process. ACT 112: Negative or not required by law. Electronically signed by: Andrew Marion M.D. 09/17/2019 1:11 PM
--- NOTE | 2019-09-17 21:02 | History & Physical Report ---
Date of Service September 17, 2019 Assessment & Plan (1) COPD exacerbation: Present on admission with worsening shortness of breath with increased sputum production associated with fever CXR showed no acute changes compared to prior one Procalcitonin and COVID-19 negative Lactic acid and WBC elevated admission Received Zosyn and IV steroids in the ER Blood culture and sputum culture pending Repeat lactic acid normal Will send Sputum sample to test for COVID since patient has a trach We placed on airborne precaution We will continue IV antibiotic with Zosyn Will start on prednisone 40mg Continue Neb treatment Pulmonary consult Will monitor CBC CKD 3 Creatinine stable HISTORY OF CAD status post CABG/ PVD status post surgery/history of CVA as per records SSS status post PPM, paced rhythm denies any chest pain Continue aspirin, metoprolol and plavix HYPERTENSION Continue Norvasc HISTORY OF CVA Continue aspirin and plavix Stable HYPOTHYROIDISM continue levothyroxine DVT prophylaxis SCDs for now due to recent admission for hemoptysis CODE STATUS Full code Admission and Anticipated Discharge Date Admission Date: September 17, 2019 History of Present Illness Chief Complaint: Worsening SOB Primary Care Provider: David Giordano DO 79-year-old male with a past medical history of head and neck cancer status post laryngectomy in 2019 at [facility] [place] l[place] cancer, CAD status post CABG, SSS status post PPM, PVD status post surgery, hypertension, hyperlipidemia, history of CVA, COPD, past tobacco abuse, JAIME on CPAP, hypothyroidism, CKD, chronic anemia, was recently admitted at [facility] in July for sepsis and pneumonia presented to the ED all with worsening shortness of breath with increased in sputum production associated with fever. Patient said after discharge he has been doing fine. He said he saw his rd mechanical engineer on 09/06 for follow up. Patient said last night he started to have worsening shortness of breath with increasing sputum production from the trach. He said that he felt chills and feverish. He said that he completed the course of the doxycycline about 10 days ago. He had a outpatient CT chest done on August 31 that showed residual clusters of centrilobular nodule in the right upper and lower lobe consistent with infection, however improved as compared to the prior CT chest CT. multiple new central lobular ground-glass nodule in the left lower lobe also favoring an atypical infection versus aspiration pneumonia. Nasopharyngeal COVID-19 sent from the ER negative. WBC and lactic acid elevated on admission. Denies any chest pain, palpitation, dizziness, loss of taste, no recent traveling or contact to any one positive with Covid-19. Chest x-ray done in the ER showed no acute changes. Allergies Allergy/AdvReac Type Severity Reaction Status Date / Time atorvastatin AdvReac Unknown stiffness Verified 09/17/19 12:15 Home Medications Home Medications Medication Instructions Recorded Confirmed Type aspirin [Aspirin Low Dose] 81 mg PO HS 03/25/18 09/17/19 History indomethacin 1 cap PO TID PRN MDD Gout 03/25/18 09/17/19 History levothyroxine 125 mcg PO QAM 03/25/18 09/17/19 History nitroglycerin 1 tab SUBLINGUAL UD PRN 03/25/18 09/17/19 History paroxetine HCl [Paxil] 20 mg PO HS 03/25/18 09/17/19 History clopidogrel 75 mg PO QAM 06/03/18 09/17/19 History ipratropium 0.5 mg-albuterol 3 mg 3 ml INH QID PRN 06/09/19 09/17/19 History (2.5 mg base)/3 mL nebulization soln albuterol sulfate 2.5 mg INHALATION QID PRN 08/19/19 09/17/19 History omeprazole 20 mg tablet,delayed 20 mg PO QAM 09/06/19 09/17/19 History release Yupelri 175 mcg INH QAM 09/17/19 09/17/19 History amlodipine 5 mg PO HS 09/17/19 09/17/19 History budesonide 0.5 mg INHALATION DAILY 09/17/19 09/17/19 History metoprolol succinate 12.5 mg PO BID 09/17/19 09/17/19 History Past Med/Surg History Medical History Abnormal CT scan, chest Acute hypoxemic respiratory failure Anxiety (Chronic) Benign neoplasm of colon (Inactive) CAD (coronary artery disease) (Chronic) "1995 - CABG x 2" 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 LAST CHECKED REMOTELY 05/31/18 Carotid artery stenosis with cerebral infarction over 8 weeks ago The patient presented to [facility] ED on 03/26/18 with expressive aphasia, left upper extremity numbness, left lower extremity weakness. Symptoms were resolving by the time the patient arrived in the ED. Pt had R CEA while inpatient on 03/29 COPD (chronic obstructive pulmonary disease) (Chronic) COPD (chronic obstructive pulmonary disease) Difficult airway for intubation H/o glidescope #4 with CEA 03/2018 Dyslipidemia (Chronic) GERD (gastroesophageal reflux disease) (Chronic) Gout (Chronic) History of radiation to head and neck region (Chronic) For laryngeal cancer 1985 HTN (hypertension) (Chronic) Hypothyroidism (Chronic) Ischemic stroke MARCH 25, 2018. NO DEFICITS. 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 Left lower lobe pulmonary nodule Neck pain OCCASIONAL Obesity JAIME on CPAP (Inactive) no longer on CPAP post tracheostomy Peripheral eosinophilia Pharyngocutaneous fistula (Inactive) Sleep apnea CPAP Surgical History History of bronchoscopy History of carotid endarterectomy RIGHT (MARCH 2018) History of cataract extraction with lens replacement (Chronic) cataract extraction with IOL implant and LRI left eye - 05/02/12 History of colonoscopy with polypectomy (Chronic) History of coronary artery bypass graft (Chronic) X2 VESSEL 1995 -- [facility] History of rotator cuff surgery (Chronic) Right - 2009 History of tonsillectomy Hx of laryngectomy Family History Mother Essential hypertension Stroke Social History Preferred Language: Estonian Communication Ability: Effective Visual Impairment: No Limitations Plate Embosser Required: No Beliefs That Will Affect Care: Judaism Judaism Beliefs: Rpman Mormon marital status: Current Living Situation: Family current occupational status: retired Other Information That Helps Us Care for You: No Feels Safe at Home: Yes Safety Concerns: Feels Safe At This Time Smoking Status: Former smoker Tobacco Type: cigarettes ; Cigarettes Per Day: 60 ; Do You Dip or Chew Tobacco: No ; Second Hand Exposure: No ; Tobacco Cessation Education Requested by Patient: No Hx Alcohol Use: No Hx Substance Use: No Review of Systems Review of Systems: All systems reviewed & are unremarkable except as noted in HPI & below Physical Exam Physical Exam: General- No acute distress Head- atraumatic Eyes- PERRL, EOMI, ENT- +trach with sputum Neck- supple, no JVD Lungs- Decrease BS, +mild coarse BS Heart- regular rhythm Abdomen- normal bowel sounds, soft, nontender Extremities- no calf tenderness Neuro- alert, oriented x 3; PERRL, EOMI; no facial palsy; no dysarthria Skin- warm & dry Results & Data Results & Data ([facility]) Vital Signs (Past 12 Hours) Vital Signs Temp Pulse Resp BP Pulse Ox 09/17/19 19:09 36.8 C 09/17/19 17:20 60 22 09/17/19 17:10 63 20 94 09/17/19 17:00 60 21 140/58 L 94 09/17/19 16:50 61 19 96 09/17/19 16:40 62 15 94 09/17/19 16:31 63 22 95 09/17/19 16:30 63 24 149/63 H 95 09/17/19 16:22 62 23 140/62 91 09/17/19 16:20 60 22 95 09/17/19 16:10 61 15 95 09/17/19 16:00 67 21 140/62 95 09/17/19 15:50 65 26 H 95 09/17/19 15:40 61 19 92 09/17/19 15:30 60 22 124/45 L 93 09/17/19 15:20 61 21 94 09/17/19 15:10 60 19 94 09/17/19 15:00 60 17 92 09/17/19 14:50 71 20 95 09/17/19 14:40 64 21 95 09/17/19 14:30 71 23 95 09/17/19 14:20 60 18 94 09/17/19 14:10 63 26 H 94 09/17/19 14:04 84 23 113/66 94 09/17/19 14:00 60 17 93 09/17/19 13:50 61 27 H 92 09/17/19 13:40 61 21 93 09/17/19 13:30 60 21 95 09/17/19 13:20 61 27 H 93 09/17/19 13:10 61 17 92 09/17/19 13:00 60 24 94 09/17/19 12:50 67 29 H 09/17/19 12:40 66 23 93 09/17/19 12:30 60 27 H 09/17/19 12:20 62 26 H 09/17/19 12:10 64 21 93 09/17/19 12:00 61 25 H 92 09/17/19 11:50 60 28 H 94 09/17/19 11:40 64 19 94 09/17/19 11:33 68 30 H 93 09/17/19 11:19 38.5 C H 71 132/75 93 Diagnostic Findings XR chest 1V portable HISTORY: SEPSIS COMPARISON: Chest 08/21/2019. Outside hospital chest CT 09/01/2019. FINDINGS: The heart remains normal in size. There is left-sided dual-chamber pacemaker. There are poststernotomy changes. No pneumothorax. No pleural effusions. Punctate calcified granuloma within the right midlung zone. Mild interstitial thickening which is likely chronic. Tracheostomy tube is unchanged in position. Stable linear density left lung base consistent with subsegmental atelectasis. Mild peripheral interstitial thickening within the right upper lobe is also unchanged and likely chronic. No new focal lung consolidations to sug gest pneumonia. IMPRESSION: No significant change compared to the prior study. No acute process. ACT 112: Negative or not required by law. Electronically signed by: Andrew Marion M.D. 09/17/2019 1:11 PM Dictated: 09/17/19 1309 Transcribed: 09/17/19 1309
[2019-09-17] MEDS: PIPERACILLIN/TAZOBACTAM 3.375 GM in DEXTROSE 5% 100 ML IV SCH (22:30)
[2019-09-18] MEDS: LEVOTHYROXINE SODIUM 125 MCG TABLET PO SCH (05:38)
[2019-09-18] MEDS: PIPERACILLIN/TAZOBACTAM 3.375 GM in DEXTROSE 5% 100 ML IV SCH ×3 (05:39→20:40)
[2019-09-18 07:20] LABS: Hematocrit (blood only) 31.1 % (42-52); Hemoglobin 9.9 g/dL (14.0-18.0); Mean Corpuscular Hemoglobin 25.8 pg (25-34); Mean Corpuscular Hgb Conc 31.8 g/dL (32-36); Mean Platelet Volume 9.1 fL (7.4-10.4); Platelet Count 268 K/uL (130-400); RDW Standard Deviation 50.8 fL (36.4-46.3); Red Blood Count 3.84 M/uL (4.7-6.1); White Blood Count 12.54 K/uL (4.8-10.8)
[2019-09-18] MEDS: BUDESONIDE 0.5 MG/2 ML VIAL (PULMICORT) INH SCH (07:28)
[2019-09-18] MEDS: ALBUT/IPRATROP 3MG/0.5MG NEB 3 ML VIAL NEB PRN (07:28)
[2019-09-18 07:50] LABS: Creatinine Clr Calc Pharmacy 51.5 ml/min; Est GFR (African American) 54.1; Est GFR (Non-African American) 46.7; Potassium 4.3 mmol/L (3.5-5.1)
[2019-09-18] MEDS: predniSONE 20 MG TAB PO SCH (08:30)
[2019-09-18] MEDS: CLOPIDOGREL BISULFATE 75 MG TAB PO SCH (08:30)
[2019-09-18] MEDS: PANTOprazole 40 MG TAB PO SCH (08:30)
[2019-09-18] MEDS: METOPROLOL SUCC 25MG EXT REL TAB PO SCH ×2 (08:30→20:39)
--- NOTE | 2019-09-18 10:55 | Pulmonary Consultation ---
Date of Consultation September 18, 2019 Assessment & Plan (1) COPD exacerbation: Had a lengthy discussion with the patient. I reviewed his record and serial CAT scans and chest x-ray. Current checks x-ray appears stable patient has had a waxing and waning of these nonspecific groundglass and tree-in-bud opacities associated with fever. Vasculitis work-up to date has been negative(I reviewed the panel of serologies sent during last admission by ) and they are negative. The IgE is elevated but not alarmingly so. The HP panel was not available. The viral panel was negative. My suspicion is that patient has been chronically aspirating despite negative work-up in recent past. I would repeat a video swallow and consider bronchoscopy during this admission. Defer to Dr. Vogel. No evidence for CHF although patient does have grade 2 diastolic dysfunction by echo . Would continue current regimen and frequently suction as needed. (2) Pneumonia: Laterality: unspecified laterality Lung location: unspecified part of lung Pneumonia type: due to unspecified organism Qualified Code(s): J18.9 - Pneumonia, unspecified organism (3) Fever: Fever type: unspecified Qualified Code(s): R50.9 - Fever, unspecified (4) Tracheostomy in place: (5) Left lower lobe pulmonary nodule: (6) Acute hypoxemic respiratory failure: (7) Peripheral eosinophilia: (8) Ischemic stroke: (9) Cardiac pacemaker in situ: (10) CAD (coronary artery disease): Associated angina: without angina Coronary Disease-Associated Artery/Lesion type: unspecified vessel or lesion type [place] vs. transplanted heart: [place] heart Qualified Code(s): I25.10 - Atherosclerotic heart disease of [place] coronary artery without angina pectoris History of Present Illness Reason for Consultation: Laryngeal Ca COPD exac Attending Physician: Yohana Wright DO History of Present Illness 79-year-old white male was admitted onto the hospitalist service on 09/17/2019 with a presumptive COPD exacerbation. Patient has been followed in the clinic by Mary Grace Aguirre/[facility] and Dr. Perez the pulmonary division. 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 Laryngectomy with neck dissection and reconstruction was done in March 2019. PFTs on 12/06/2018 demonstrated an FEV1/FVC ratio of 57% with an FEV1 that was 61% of predicted. Significant air trapping was seen with lung volume measurement and a reduced DLCO. Patient has a longstanding smoking history having quit in 1985. Seen in consultation on 09/06/2019 during this last hospitalization. And was evaluated for nodular groundglass opacities are nonspecific felt to be infectious and inflammatory and with a multifocal pneumonia. Patient will undergo tracheostomy change and revision in the near future by head and neck surgery at [facility] in [place]. He has a 7 mm left lower lobe nodule that is been stable since [address] scan February 2019 did not show any avidity. There was also suggested possible filling defect versus thrombosis of a branch of the left inferior pulmonary vein and left lower lobe as an incidental finding and no anticoagulation was prescribed. Patient also was hospitalized in late July for pneumonia. He was hospitalized for acute hypoxic respiratory failure and hemoptysis with CTA at that time showing these new scattered groundglass and consolidative airspace opacities. Patient is able to swallow without difficulty and recent video swallow and evaluation did not apparently show evidence for aspiration. COVID- 19 testing done previously and during this admission has been negative. His CAT scan has been abnormal for most of this winter as he demonstrated right upper lobe tree-in-bud opacities in the remote past as well. He received 10 days of doxycycline and an autoimmune panel was negative. He suffered an acute kidney injury from sepsis and because of the mopped assist his aspirin and Plavix were held for 48 hours then restarted. This admission was prompted by voluminous sputum per tracheostomy that was purulent without hemoptysis and a fever. He has been on budesonide via nebulizer daily along with DuoNeb solution uses frequently. His past medical history includes coronary artery disease status post CABG x2 1995, sick sinus syndrome status post PPM, peripheral vascular disease with bypass , hypertension, hyperlipidemia and a previous history of CVA as well as JAIME on CPAP and received radiation therapy post laryngectomy. 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 She was switched to Yupelri 175 mcg/3 ml by nebulization daily. Vasculitis work-up and hypersensitivity pneumonitis panel have been sent for in the past. History of right carotid endarterectomy March 2018. Allergies Allergy/AdvReac Type Severity Reaction Status Date / Time atorvastatin AdvReac Unknown stiffness Verified 09/17/19 12:15 Home Medications Home Medications Medication Instructions Recorded Confirmed Type aspirin [Aspirin Low Dose] 81 mg PO HS 03/25/18 09/17/19 History indomethacin 1 cap PO TID PRN MDD Gout 03/25/18 09/17/19 History levothyroxine 125 mcg PO QAM 03/25/18 09/17/19 History nitroglycerin 1 tab SUBLINGUAL UD PRN 03/25/18 09/17/19 History paroxetine HCl [Paxil] 20 mg PO HS 03/25/18 09/17/19 History clopidogrel 75 mg PO QAM 06/03/18 09/17/19 History ipratropium 0.5 mg-albuterol 3 mg 3 ml INH QID PRN 06/09/19 09/17/19 History (2.5 mg base)/3 mL nebulization soln albuterol sulfate 2.5 mg INHALATION QID PRN 08/19/19 09/17/19 History omeprazole 20 mg tablet,delayed 20 mg PO QAM 09/06/19 09/17/19 History release Yupelri 175 mcg INH QAM 09/17/19 09/17/19 History amlodipine 5 mg PO HS 09/17/19 09/17/19 History budesonide 0.5 mg INHALATION DAILY 09/17/19 09/17/19 History metoprolol succinate 12.5 mg PO BID 09/17/19 09/17/19 History Patient History Medical History Abnormal CT scan, chest Acute hypoxemic respiratory failure Anxiety (Chronic) Benign neoplasm of colon (Inactive) CAD (coronary artery disease) (Chronic) "1995 - CABG x 2" 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 LAST CHECKED REMOTELY 05/31/18 Carotid artery stenosis with cerebral infarction over 8 weeks ago The patient presented to [facility] ED on 03/26/18 with expressive aphasia, left upper extremity numbness, left lower extremity weakness. Symptoms were resolving by the time the patient arrived in the ED. Pt had R CEA while inpatient on 03/29 COPD (chronic obstructive pulmonary disease) (Chronic) COPD (chronic obstructive pulmonary disease) Difficult airway for intubation H/o glidescope #4 with CEA 03/2018 Dyslipidemia (Chronic) GERD (gastroesophageal reflux disease) (Chronic) Gout (Chronic) History of radiation to head and neck region (Chronic) For laryngeal cancer 1985 HTN (hypertension) (Chronic) Hypothyroidism (Chronic) Ischemic stroke MARCH 25, 2018. NO DEFICITS. 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 Left lower lobe pulmonary nodule Neck pain OCCASIONAL Obesity JAIME on CPAP (Inactive) no longer on CPAP post tracheostomy Peripheral eosinophilia Pharyngocutaneous fistula (Inactive) Sleep apnea CPAP Surgical History History of bronchoscopy History of carotid endarterectomy RIGHT (MARCH 2018) History of cataract extraction with lens replacement (Chronic) cataract extraction with IOL implant and LRI left eye - 05/02/12 History of colonoscopy with polypectomy (Chronic) History of coronary artery bypass graft (Chronic) X2 VESSEL 1995 -- [facility] History of rotator cuff surgery (Chronic) Right - 2009 History of tonsillectomy Hx of laryngectomy Family History Mother Essential hypertension Stroke Social History Preferred Language: [place]an Communication Ability: Effective Visual Impairment: No Limitations Civil Drafter Required: No Beliefs That Will Affect Care: Anglican Anglican Beliefs: Rpman Tenriism marital status: Current Living Situation: Family current occupational status: retired Other Information That Helps Us Care for You: No Feels Safe at Home: Yes Safety Concerns: Feels Safe At This Time Smoking Status: Former smoker Tobacco Type: cigarettes ; Cigarettes Per Day: 60 ; Do You Dip or Chew Tobacco: No ; Second Hand Exposure: No ; Tobacco Cessation Education Requested by Patient: No Hx Alcohol Use: No Hx Substance Use: No Review of Systems Constitutional: no problem reported Eyes: no problem reported Ear, Nose, Mouth, Throat: no problem reported Respiratory: no problem reported Cardiovascular: no problem reported Gastrointestinal: no problem reported Genitourinary: no problem reported Musculoskeletal: no problem reported Integumentary: no problem reported Neurologic: no problem reported Psychiatric: no problem reported Endocrine: no problem reported Hematologic / Lymphatic: no problem reported Allergy / Immunological: no problem reported Physical Exam Constitutional: well developed and well nourished; no acute distress Eyes: PERRL, conjunctivae normal, anicteric sclerae ENMT: external ear and nose normal, oropharynx normal Neck: trachea midline, no thyromegaly Respiratory: normal respiratory effort and + hyperresonance to percussion Auscultation: lungs clear to auscultation bilaterally, + diminished lung sounds and + wheezes (Distant to PNA with scattered rhonchi) Cardiovascular: RRR, no murmur, no edema Palpation: normal PMI; no thrill Gastrointestinal (Abdomen): normal bowel sounds, soft, nontender, no hepatosplenomegaly Musculoskeletal: no cyanosis or clubbing, extremities motor strength 5/5 Gait: normal gait Skin: no rashes, warm and dry Neurologic: PERRL, EOMI, accommodation nl, no face palsy, no dysarthria Psychiatric: A+Ox3, euthymic affect Lymphatic: no cervical or axillary lymphadenopathy Results & Data Results & Data ([facility]) Vital Signs (Past 12 Hours) Vital Signs Temp Pulse Pulse Resp BP Pulse Ox 09/18/19 08:28 36.6 C 73 19 148/72 H 92 09/18/19 08:00 61 09/18/19 07:29 71 16 95 09/18/19 05:00 36.4 C L 60 16 133/66 95 09/18/19 00:04 36.7 C 65 16 135/66 94 09/17/19 23:59 63 PG Care Time/CCT Total # of Minutes Spent Total Time Spent with Patient: Total time spent is greater than 50% in coordination of care (as documented) at patient's floor/unit and/or counseling patient: Coding Level of Care Code 77492 Initial Inpt Care Lvl 3 Diagnoses COPD exacerbation J44.1 Pneumonia J18.9 Laterality: unspecified laterality Lung location: unspecified part of lung Pneumonia type: due to unspecified organism Fever R50.9 Fever type: unspecified Tracheostomy in place Z93.0 Left lower lobe pulmonary nodule R91.1 Acute hypoxemic respiratory failure J96.01 Peripheral eosinophilia D72.1 Ischemic stroke I63.9 Cardiac pacemaker in situ Z95.0 CAD (coronary artery disease) I25.10 Associated angina: without angina Coronary Disease-Associated Artery/Lesion type: unspecified vessel or lesion type [place] vs. transplanted heart: [place] heart Time Spent (min) 40
--- NOTE | 2019-09-18 11:58 | Hospitalist Progress Note ---
Date of Service September 18, 2019 Assessment & Plan (1) COPD exacerbation: Improved clinically overnight, cont Prednisone, Albuterol NEB q6h PRN. No wheezing on exam. (2) Abnormal CT scan, chest: Recent hospitalization for pneumonia with residual but improved infiltrates. Unclear if new infection present, however, with fever and sputum changes on admission will cont Zosyn pending further recommendations from pulmonary service. COVID 19 pending on tracheal aspirate (3) Pneumonia: possible worsening pneumonia vs URTI causing initial symptoms. Retested for COVID and will cont abx course per pulm recs. (4) Multiple pulmonary nodules: Known, cont monitoring with pulmonary service as outpatient. (5) Laryngeal cancer: s/p surgery in Mar 2019. Trach in place. (6) DVT prophylaxis: SCDs, ? hemoptysis last admission Full Code Dispo- to home when medically cleared by pulmonology Yohana Wright DO [facility]ist Admission and Anticipated Discharge Date Admission Date: September 17, 2019 Subjective Pt feels well afebrile since initial fever on admission no supplemental oxygen needs, just on trach collar mentating well, decreased sputum production and is asking to go home. covid-19 pending. Review of Systems Review of Systems: All systems reviewed & are unremarkable except as noted in Subjective Physical Exam Physical Exam: CONSTITUTIONAL: WNWD, vitals as above, generally well- appearing EYES: normal conjunctivae, no scleral icterus ENT: external ear and nose normal, oropharynx clear, MMM, tracheostomy in place. RESPIRATORY: clear to auscultation bilaterally, no crackles, rales or wheezes, normal respiratory effort CARDIOVASCULAR: regular rate and rhythm, S1 and 2 heard without murmurs, gallops or rubs, no JVD, no peripheral edema GASTROINTESTINAL: normal bowel sounds, soft, nontender, nondistended MUSCULOSKELETAL: strength 5/5 throughout, head is normocephalic and atraumatic, neck supple, normal palpation of chest wall without tenderness SKIN: warm and dry NEUROLOGIC: CN 2-12 grossly intact, normal cognition, normal speech, no tremor PSYCHIATRIC: alert cooperative and oriented to person, place and time. Euthymic mood, makes good eye contact, language grossly intact, recent and remote memory grossly intact. Results & Data Results & Data ([facility]) Vital Signs (Past 12 Hours) Vital Signs Temp Pulse Pulse Resp BP Pulse Ox 09/18/19 10:54 61 09/18/19 08:28 36.6 C 73 19 148/72 H 92 09/18/19 08:00 61 09/18/19 07:29 71 16 95 09/18/19 05:00 36.4 C L 60 16 133/66 95 09/18/19 00:04 36.7 C 65 16 135/66 94 09/17/19 23:59 63 Laboratory Results Short CBC 09/17/19 09/18/19 Range/Units 12:32 06:55 WBC 12.29 H 12.54 H (4.8-10.8) K/uL Hgb 10.4 L 9.9 L (14.0-18.0) g/dL Hct 33.2 L 31.1 L (42-52) % Plt Count 256 268 (130-400) K/uL BMP 09/17/19 09/18/19 12:32 06:55 Sodium 141 138 Potassium 4.3 4.3 Chloride 106 104 Carbon Dioxide 25 25 BUN 14 21 H Creatinine 1.37 1.41 H Glucose 96 Calcium 8.5 9.0 Cardiac Enzymes 09/17/19 Range/Units 12:32 Troponin I < 0.015 (0-0.045) ng/ml Liver Function 09/17/19 Range/Units 12:32 Total Bilirubin 0.7 (0.2-1) mg/dl AST 16 (15-37) U/L ALT 19 (12-78) U/L Alkaline Phosphatase 83 (45-117) U/L Albumin 3.5 (3.4-5.0) gm/dl Medications Administered Current Inpatient Medications Albuterol (Duoneb) 3 ml NEB Q6H PRN PRN Reason: Shortness Of Breath Stop: 10/17/19 21:44 Last Admin: 09/18/19 07:28 Dose: 3 ml Documented by: Amlodipine Besylate (Norvasc) 5 mg PO HS [facility] Stop: 10/18/19 20:59 Aspirin (Ecotrin Ectab) 81 mg PO HS [facility] Stop: 10/18/19 20:59 Budesonide (Pulmicort Respules) 0.5 mg INH QDR [facility] Stop: 10/18/19 07:59 Last Admin: 09/18/19 07:28 Dose: 0.5 mg Documented by: Clopidogrel Bisulfate (Plavix) 75 mg PO QAM [facility] Stop: 10/18/19 08:59 Last Admin: 09/18/19 08:30 Dose: 75 mg Documented by: Piperacillin Sod/Tazobactam (Sod 3.375 gm/ Dextrose) 115 mls @ 28.75 mls/hr IV Q8H [facility]; Protocol Stop: 09/24/19 21:59 Last Infusion: 09/18/19 09:39 Dose: Infused Documented by: Levothyroxine Sodium (Synthroid) 125 mcg PO DAILYBB [facility] Stop: 10/18/19 06:29 Last Admin: 09/18/19 05:38 Dose: 125 mcg Documented by: Metoprolol Succinate (Toprol Xl) 12.5 mg PO BID [facility] Stop: 10/18/19 08:59 Last Admin: 09/18/19 08:30 Dose: 12.5 mg Documented by: Miscellaneous Information (Consult) 1 ea N/A UD PRN PRN Reason: Consult Stop: 10/17/19 11:43 Last Admin: 09/17/19 12:35 Dose: 1 ea Documented by: Pantoprazole Sodium (Protonix) 40 mg PO QAM [facility] Stop: 10/18/19 08:59 Last Admin: 09/18/19 08:30 Dose: 40 mg Documented by: Paroxetine HCl (Paxil) 20 mg PO [facility] Stop: 10/18/19 20:59 Prednisone (Prednisone) 40 mg PO DAILY [facility] Stop: 10/18/19 08:59 Last Admin: 09/18/19 08:30 Dose: 40 mg Documented by:
[2019-09-18] MEDS ORDERED: ASPIRIN 81 MG ECTAB PO SCH (21:00)
[2019-09-18] MEDS ORDERED: PARoxetine HCL 20 MG TAB PO SCH (21:00)
[2019-09-18] MEDS ORDERED: AMLODIPINE BESYLATE 5 MG TAB PO SCH (21:00)
[2019-09-19] MEDS: PIPERACILLIN/TAZOBACTAM 3.375 GM in DEXTROSE 5% 100 ML IV SCH (05:11)
[2019-09-19] MEDS: LEVOTHYROXINE SODIUM 125 MCG TABLET PO SCH (05:12)
[2019-09-19] MEDS: ALBUT/IPRATROP 3MG/0.5MG NEB 3 ML VIAL NEB PRN (07:26)
[2019-09-19] MEDS: BUDESONIDE 0.5 MG/2 ML VIAL (PULMICORT) INH SCH (07:26)
[2019-09-19 08:07] LABS: Hematocrit (blood only) 29.8 % (42-52); Hemoglobin 9.4 g/dL (14.0-18.0); Mean Corpuscular Hemoglobin 25.5 pg (25-34); Mean Corpuscular Hgb Conc 31.5 g/dL (32-36); Mean Platelet Volume 9.3 fL (7.4-10.4); Platelet Count 270 K/uL (130-400); RDW Coefficient of Variation 16.8 % (11.5-14.5); RDW Standard Deviation 49.9 fL (36.4-46.3); Red Blood Count 3.68 M/uL (4.7-6.1); White Blood Count 11.85 K/uL (4.8-10.8)
[2019-09-19 08:31] LABS: BUN Creatinine Ratio 15.8 (10-20); Calcium 9.2 mg/dl (8.5-10.1); Creatinine Clr Calc Pharmacy 52.8 ml/min; Est GFR (African American) 56.1; Est GFR (Non-African American) 48.4; Potassium 4.6 mmol/L (3.5-5.1)
[2019-09-19] MEDS: PANTOprazole 40 MG TAB PO SCH (08:51)
[2019-09-19] MEDS: METOPROLOL SUCC 25MG EXT REL TAB PO SCH (08:51)
[2019-09-19] MEDS: predniSONE 20 MG TAB PO SCH (08:51)
[2019-09-19] MEDS: CLOPIDOGREL BISULFATE 75 MG TAB PO SCH (08:51)
--- NOTE | 2019-09-19 09:39 | Hospitalist Progress Note ---
Date of Service September 19, 2019 Assessment & Plan (1) COPD exacerbation: Present on admission with worsening shortness of breath with increased sputum production associated with fever CXR showed no acute changes compared to prior one Procalcitonin and COVID-19 negative Lactic acid and WBC elevated admission Received Zosyn and IV steroids in the ER Blood culture and sputum culture pending Repeat lactic acid normal Will send Sputum sample to test for COVID since patient has a trach We placed on airborne precaution We will continue IV antibiotic with Zosyn Will start on prednisone 40mg Continue Neb treatment Pulmonary consult Will monitor CBC CKD 3 Creatinine stable HISTORY OF CAD status post CABG/ PVD status post surgery/history of CVA as per records SSS status post PPM, paced rhythm denies any chest pain Continue aspirin, metoprolol and plavix HYPERTENSION Continue Norvasc HISTORY OF CVA Continue aspirin and plavix Stable HYPOTHYROIDISM continue levothyroxine DVT prophylaxis SCDs for now due to recent admission for hemoptysis CODE STATUS Full code (2) DVT prophylaxis: Admission and Anticipated Discharge Date Admission Date: September 17, 2019 Physical Exam Physical Exam: CONSTITUTIONAL: WNWD, vitals as above, generally well- appearing EYES: normal conjunctivae, no scleral icterus ENT: external ear and nose normal, oropharynx clear, MMM, tracheostomy in place. RESPIRATORY: clear to auscultation bilaterally, no crackles, rales or wheezes, normal respiratory effort CARDIOVASCULAR: regular rate and rhythm, S1 and 2 heard without murmurs, gallops or rubs, no JVD, no peripheral edema GASTROINTESTINAL: normal bowel sounds, soft, nontender, nondistended MUSCULOSKELETAL: strength 5/5 throughout, head is normocephalic and atraumatic, neck supple, normal palpation of chest wall without tenderness SKIN: warm and dry NEUROLOGIC: CN 2-12 grossly intact, normal cognition, normal speech, no tremor PSYCHIATRIC: alert cooperative and oriented to person, place and time. Euthymic mood, makes good eye contact, language grossly intact, recent and remote memory grossly intact. Results & Data Results & Data ([facility]) Vital Signs (Past 12 Hours) Vital Signs Temp Pulse Pulse Resp BP Pulse Ox 09/19/19 08:49 36.8 C 71 10 L 144/69 H 93 09/19/19 07:27 78 16 98 09/19/19 05:10 36.7 C 61 18 163/88 H 96 09/19/19 00:27 36.9 C 81 18 147/97 H 95 09/18/19 23:15 61 Laboratory Results Short CBC 09/19/19 Range/Units 07:25 WBC 11.85 H (4.8-10.8) K/uL Hgb 9.4 L (14.0-18.0) g/dL Hct 29.8 L (42-52) % Plt Count 270 (130-400) K/uL BMP 09/19/19 07:25 Sodium 142 Potassium 4.6 Chloride 107 Carbon Dioxide 28 BUN 22 H Creatinine 1.37 Glucose 90 Calcium 9.2 Medications Administered Current Inpatient Medications Albuterol (Duoneb) 3 ml NEB Q6H PRN PRN Reason: Shortness Of Breath Stop: 10/17/19 21:44 Last Admin: 09/19/19 07:26 Dose: 3 ml Documented by: Amlodipine Besylate (Norvasc) 5 mg PO [facility] Stop: 10/18/19 20:59 Last Admin: 09/18/19 20:39 Dose: 5 mg Documented by: Aspirin (Ecotrin Ectab) 81 mg PO [facility] Stop: 10/18/19 20:59 Last Admin: 09/18/19 20:39 Dose: 81 mg Documented by: Budesonide (Pulmicort Respules) 0.5 mg INH QDR [facility] Stop: 10/18/19 07:59 Last Admin: 09/19/19 07:26 Dose: 0.5 mg Documented by: Clopidogrel Bisulfate (Plavix) 75 mg PO QAM [facility] Stop: 10/18/19 08:59 Last Admin: 09/19/19 08:51 Dose: 75 mg Documented by: Piperacillin Sod/Tazobactam (Sod 3.375 gm/ Dextrose) 115 mls @ 28.75 mls/hr IV Q8H [facility]; Protocol Stop: 09/24/19 21:59 Last Admin: 09/19/19 05:11 Dose: 28.8 mls/hr Documented by: Levothyroxine Sodium (Synthroid) 125 mcg PO DAILYBB [facility] Stop: 10/18/19 06:29 Last Admin: 09/19/19 05:12 Dose: 125 mcg Documented by: Metoprolol Succinate (Toprol Xl) 12.5 mg PO BID [facility] Stop: 10/18/19 08:59 Last Admin: 09/19/19 08:51 Dose: 12.5 mg Documented by: Miscellaneous Information (Consult) 1 ea N/A UD PRN PRN Reason: Consult Stop: 10/17/19 11:43 Last Admin: 09/17/19 12:35 Dose: 1 ea Documented by: Pantoprazole Sodium (Protonix) 40 mg PO QAM [facility] Stop: 10/18/19 08:59 Last Admin: 09/19/19 08:51 Dose: 40 mg Documented by: Paroxetine HCl (Paxil) 20 mg PO HS [facility] Stop: 10/18/19 20:59 Last Admin: 09/18/19 20:39 Dose: 20 mg Documented by: Prednisone (Prednisone) 40 mg PO DAILY [facility] Stop: 10/18/19 08:59 Last Admin: 09/19/19 08:51 Dose: 40 mg Documented by:
[2019-09-19 11:43] VITALS: BP 158/75; PULSE 63; TEMP 97.7; O2SAT 96
--- NOTE | 2019-09-19 12:18 | Pulmonology Progress Note ---
Date of Service September 19, 2019 Assessment & Plan (1) COPD exacerbation: 79-year-old male with a past medical history of head and neck malignancy status post creation of an ostomy with a current trach in place, COPD and chronic right upper lobe centrilobular nodules presented to the hospital with a fever and general malaise. Nasopharyngeal COVID-19 test sent and was negative. A repeat test was sent of the lower respiratory tract from his trach and is pending. I do think that the likelihood for COVID-19 is very low. I have seen this patient as an outpatient and I have noted his follow-up CT chest on August 31 which demonstrated improvement in previously seen opacities. His chest x-ray from the appears stable from his previous chest imaging. I do not think that he has a significant pneumonia or a significant COPD exacerbation. I would recommend treatment for a total of 5 days with p.o. antibiotics including azithromycin and cefdinir for possible tracheobronchitis. Procalcitonin level is 0.09 which is within normal limits. Upon discharge, recommend continuing him on his long-acting muscarinic antagonist nebulizer. Recommend repeating a chest CT in 4 weeks. I will follow-up with him as an outpatient. I did personally discussed the case with the patient's hospitalist, Dr. Yohana Wright. Okay to discharge home from my standpoint. Pulmonary sign off. Please call with questions. Thank you for allowing us to participate in the care of this patient. (2) Pneumonia: Laterality: unspecified laterality Lung location: unspecified part of lung Pneumonia type: due to unspecified organism Qualified Code(s): J18.9 - Pneumonia, unspecified organism (3) Fever: Fever type: unspecified Qualified Code(s): R50.9 - Fever, unspecified (4) Tracheostomy in place: (5) Left lower lobe pulmonary nodule: (6) Acute hypoxemic respiratory failure: (7) Peripheral eosinophilia: (8) Ischemic stroke: (9) Cardiac pacemaker in situ: (10) CAD (coronary artery disease): Coronary Disease-Associated Artery/Lesion type: unspecified vessel or lesion type [place] vs. transplanted heart: [place] heart Associated angina: without angina Qualified Code(s): I25.10 - Atherosclerotic heart disease of [place] coronary artery without angina pectoris Admission and Anticipated Discharge Date Admission Date: September 17, 2019 Subjective Patient is sitting in his bed today. He appears to be in good spirits. No complaints. He does have some mild secretions from his trach. He had his internal cannula changed out recently. Review of Systems Review of Systems: All systems reviewed & are unremarkable except as noted in Subjective Physical Exam Constitutional: well developed and well nourished; no acute distress Eyes: PERRL, conjunctivae normal, anicteric sclerae ENMT: external ear and nose normal, oropharynx normal Neck: trachea midline, no thyromegaly Respiratory: normal respiratory effort Auscultation: lungs clear to auscultation bilaterally Cardiovascular: RRR, no murmur, no edema Palpation: normal PMI; no thrill Gastrointestinal (Abdomen): normal bowel sounds, soft, nontender, no hepatosplenomegaly Musculoskeletal: no cyanosis or clubbing, extremities motor strength 5/5 Gait: normal gait Skin: no rashes, warm and dry Neurologic: PERRL, EOMI, accommodation nl, no face palsy, no dysarthria Psychiatric: A+Ox3, euthymic affect Lymphatic: no cervical or axillary lymphadenopathy Results & Data Results & Data ([facility]) Vital Signs (Past 12 Hours) Vital Signs Temp Pulse Resp BP Pulse Ox 09/19/19 11:42 97.7 F 63 22 158/75 H 96 09/19/19 08:49 98.2 F 71 10 L 144/69 H 93 09/19/19 07:27 78 16 98 09/19/19 05:10 98.1 F 61 18 163/88 H 96 09/19/19 00:27 98.4 F 81 18 147/97 H 95 I personally reviewed his laboratory data and chest imaging. PG Care Time/CCT Total # of Minutes Spent Total Time Spent with Patient: Total time spent is greater than 50% in coordination of care (as documented) at patient's floor/unit and/or counseling patient: Coding Level of Care Code 57502 Subseq Hosp Care Lvl 2 Diagnoses COPD exacerbation J44.1 Pneumonia J18.9 Laterality: unspecified laterality Lung location: unspecified part of lung Pneumonia type: due to unspecified organism Fever R50.9 Fever type: unspecified Tracheostomy in place Z93.0 Left lower lobe pulmonary nodule R91.1 Acute hypoxemic respiratory failure J96.01 Peripheral eosinophilia D72.1 Ischemic stroke I63.9 Cardiac pacemaker in situ Z95.0 CAD (coronary artery disease) I25.10 Coronary Disease-Associated Artery/Lesion type: unspecified vessel or lesion type [place] vs. transplanted heart: [place] heart Associated angina: without angina
--- NOTE | 2019-09-19 13:26 | Discharge Summary ---
Date of Service September 19, 2019 Admission HPI Per Admitting Provider 79-year-old male with a past medical history of head and neck cancer status post l[place] in [place] [facility] [place], CAD status post CABG, SSS status post PPM, PVD status post surgery, hypertension, hyperlipidemia, history of CVA, COPD, past tobacco abuse, JAIME on CPAP, hypothyroidism, CKD, chronic anemia, was recently admitted at [facility] in July for sepsis and pneumonia presented to the ED all with worsening shortness of breath with increased in sputum production associated with fever. Patient said after discharge he has been doing fine. He said he saw his fur vault attendant on 09/06 for follow up. Patient said last night he started to have worsening shortness of breath with increasing sputum production from the trach. He said that he felt chills and feverish. He said that he completed the course of the doxycycline about 10 days ago. He had a outpatient CT chest done on August 31 that showed residual clusters of centrilobular nodule in the right upper and lower lobe consistent with infection, however improved as compared to the prior CT chest CT. multiple new central lobular ground-glass nodule in the left lower lobe also favoring an atypical infection versus aspiration pneumonia. Nasopharyngeal COVID-19 sent from the ER negative. WBC and lactic acid elevated on admission. Denies any chest pain, palpitation, dizziness, loss of taste, no recent traveling or contact to any one positive with Covid-19. Chest x-ray done in the ER showed no acute changes. Admission Exam Per Admitting Provider General- No acute distress Head- atraumatic Eyes- PERRL, EOMI, ENT- +trach with sputum Neck- supple, no JVD Lungs- Decrease BS, +mild coarse BS Heart- regular rhythm Abdomen- normal bowel sounds, soft, nontender Extremities- no calf tenderness Neuro- alert, oriented x 3; PERRL, EOMI; no facial palsy; no dysarthria Skin- warm & dry Principal Diagnosis Possible pneumonia vs URTI Abnormal chest CT after recent pneumonia infection 4 weeks ago Covid-19 test pending multiple pulmonary nodules h/o laryngeal cancer s/p surgery with tracheostomy Discharge Exam CONSTITUTIONAL: WNWD, generally well-appearing EYES: normal conjunctivae, no scleral icterus ENT: external ear and nose normal, oropharynx clear, MMM, tracheostomy in place. RESPIRATORY: clear to auscultation bilaterally, no crackles, rales or wheezes, normal respiratory effort CARDIOVASCULAR: regular rate and rhythm, 3/6 DORIAN heard across precordium, no gallops or rubs, no JVD, no peripheral edema MUSCULOSKELETAL: strength 5/5 throughout, head is normocephalic and atraumatic, ambulatory SKIN: warm and dry NEUROLOGIC: CN 2-12 grossly intact, normal cognition, normal speech, no tremor PSYCHIATRIC: alert cooperative and oriented to person, place and time. Discharge Data Allergies Allergy/AdvReac Type Severity Reaction Status Date / Time atorvastatin AdvReac Unknown stiffness Verified 09/17/19 12:15 Consultations 09/17/19 13:27 ED Decision to Admit Stat 09/17/19 21:32 Consult Pulmonology Routine Hospital Course (1) COPD exacerbation: (2) Abnormal CT scan, chest: (3) Pneumonia: (4) Multiple pulmonary nodules: (5) Laryngeal cancer: The patient was admitted to the hospitalist service and placed on Zosyn and IV steroids. A sputum sample from his tracheostomy was sent for COVID and he was placed on airborne and contact isolation precautions. He is nasal COVID sample was negative. Pulmonology was consulted and recommended consideration of a repeat video swallow and bronchoscopy during this admission. However, the patient clinically improved significantly the following day and a second fur vault attendant saw him who was familiar with his case, as he is managing outpatient fur vault attendant for the patient. He recommended a repeat course of antibiotics in the setting of new fever and change in sputum production but was less concerned for aspiration in the post-operative setting. He noted that that the follow-up CT chest on August 31 demonstrated improvement in previously seen opacities. Furthermore his chest x-ray from September 16 appeared stable from his prior chest imaging. He did not feel the patient had a significant pneumonia or significant COPD exacerbation and felt tracheobronchitis was in the differential and more likely. Notably procalcitonin level was 0.09 which was within normal limits. Continued inhaler therapy was recommended. A repeat chest CT in 4 weeks was recommended. The patient was discharged in stable condition with recommendations to continue home isolation until negative tracheal aspirate COVID-19 return, as this test was pending at time of discharge. Close primary care follow-up was recommended. At time of discharge he was hemodynamically stable and afebrile and tolerating p.o. He did not have a fever during the hospitalization. He was mentating and ambulating at baseline. Continued followup for known pulmonary nodules is recommended through the [facility] Pulmonary clinic. Total Time Total Time Spent Total Time Spent (In Minutes): 60 Total Time Includes: Examination of the Patient, Discharge Planning, Medication Reconciliation and Communication With Other Providers Discharge Plan Discharge Items Patient Disposition: Home - Self-Care Reason For Visit: WORSENING SOB Discharge Diagnosis: Possible pneumonia vs URTI Abnormal chest CT after recent pneumonia infection 4 weeks ago Covid-19 test pending multiple pulmonary nodules h/o laryngeal cancer s/p surgery with tracheostomy Condition on Discharge: Good Activity: Resume your previous activity Non-emergency contact: Primary Care Provider and [employer]cher Call non-emergency contact if: you have any medication questions, your symptoms worsen, your pain is not controlled, your pain is worsening, your pain is unusual for you, your pain is concerning for you and you have a fever Follow-up/Referrals: David Giordano, [Primary Care Provider] - 09/26/19 12:00 pm (YOU WILL SEE DR HOLT ON OCTOBER 24, 2019 @ 10:15 AM) Diet: Regular Addtl Attending Provider Instructions: Please take all medications as instructed on discharge list below. Please follow-up with Pulmonology, ENT and Speech Pathology as previously planned. It is recommended that you have a repeat chest CT in 4 weeks time. This may be ordered by Dr. Vogel or by your primary care physician. It is recommended that you followup with your primary care physician in one week to ensure you are still doing well after discharge home. Someone from our staff will contact you after the holiday weekend to set this up. YOU HAVE BEEN TESTED FOR COVID-19, WITH STATUS STILL PENDING AT TIME OF DISCHARGE. PLEASE SELF-QUARANTINE PER INSTRUCTIONS BELOW. Suspected or Confirmed COVID-19 Instructions We ask you follow these simple instructions to remain as healthy as possible. Please make every effort to protect those around you and to reduce transmission of any infections. Be especially careful when near or around high-risk individuals, which includes the elderly, those with weak immune systems, and anyone with preexisting medical diseases. Smoking may increase your chances of developing more severe disease if you contract Coronavirus. If you do smoke, today is the best day of your life to stop. Stay home except to get medical care. If you develop chest pain, uncontrolled fevers, confusion, difficulty breathing, vomiting, passing out, severe headaches, or worsening of your condition, call the Emergency Department for advice 24 hrs a day at [phone] or return for re-evaluation. People who are mildly to moderately ill with COVID-19 are able to isolate at home during their illness. 1. You should restrict activities outside your home, except for getting medical care. 2. Do not go to work, school, or public areas. 3. Avoid using public transportation, ride-sharing, or taxis. 4. Drink plenty of non-alcoholic fluids. 5. Eat healthy. 6. Continue current medications unless told otherwise by your providers. 7. Use Tylenol (acetaminophen), if not allergic, every six hours for control of aches and fevers. Follow the instructions on the bottle. There are several possible scenarios to your visit: At this point, with community transmission, CONSIDER YOURSELF INFECTIOUS. You should SELF-QUARANTINE FOR 14 DAYS (possibly longer if you continue to have fever). A. You were deemed high risk for COVID-19 and testing was performed. Testing can take several days or more to return. An important point to remember is that testing is not perfect and a NEGATIVE test result is not a guarantee that you are free from infection. Your risk of infection must be taken into account and conveyed to you by your provider. A POSITIVE test will trigger action by the Department of Health to track contacts and locations. You should do the right thing and contact all people you were close with and notify them so we can halt the spread. If you need to seek medical care or come in contact with people, let them know ahead of time by calling or keeping a safe distance in person (greater than 6 feet). B. You were deemed high risk for COVID-19 and testing was not performed. This may result from a lack of testing supplies or your risk was deemed so high that you very likely have contracted the disease and assumed to have contracted the illness. Other factors may be present as well. You should self-quarantine for the 14 days (possibly longer if you continue to have fever) regardless of testing. C. Your risk was very low and you were found to have another cause, Strep throat, RSV, a common cold, or Influenza. These illnesses are extremely common and can mimic the symptoms of COVID-19. In these cases, testing for COVID-19 may be deferred. HOME ISOLATION: ISOLATION IS EXTREMELY IMPORTANT TO STOP THE SPREAD OF THE DISEASE AND PREVENTING OTHERS FROM GETTING SIGNIFICANTLY ILL!!!!! The following information about Home Isolation is from the CDC Website: https://www.cdc.gov/coronavirus/2019-ncov/hcp/nuxwzafa-xmdowal-iowipz.html PEOPLE: Separate yourself from other people and animals in your home. As much as possible, you should stay in a specific room and away from other people in your home. Also, you should use a separate bathroom, if available. 1. You should wear a face mask when you are around other people (e.g., sharing a room or vehicle) or pets and before you enter a healthcare providers office. If you are not able to wear a face mask (for example, because it causes trouble breathing), then people who live with you should not stay in the same room with you, or they should wear a face mask if they enter your room. 2. Cover your mouth and nose with a tissue when you cough or sneeze. Throw used tissues in a lined trash can. Immediately wash your hands with soap and water for at least 20 seconds or, if soap and water are not available, clean your hands with an alcohol-based hand poultry processor that contains at least 60% alcohol. 3. Clean your hands often. Wash your hands often with soap and water for at least 20 seconds, especially after blowing your nose, coughing, or sneezing; going to the bathroom; and before eating or preparing food. If soap and water are not readily available, use an alcohol-based hand poultry processor with at least 60% alcohol, covering all surfaces of your hands and rubbing them together until they feel dry. Soap and water are the best option if hands are visibly dirty. Avoid touching your eyes, nose, and mouth with unwashed hands. 4. Avoid sharing personal household items. You should not share dishes, drinking glasses, cups, eating utensils, towels, or bedding with other people or pets in your home. After using these items, they should be washed thoroughly with soap and water. 5. Clean all high-touch surfaces every day. High touch surfaces include counters, tabletops, doorknobs, bathroom fixtures, toilets, phones, keyboards, tablets, and bedside tables. Also, clean any surfaces that may have blood, stool, or body fluids on them. Use a household cleaning spray or wipe, according to the label instructions. Labels contain instructions for safe and effective use of the cleaning product including precautions you should take when applying the product, such as wearing gloves and making sure you have good ventilation during use of the product. ANIMALS: You should restrict contact with pets and other animals while you are sick with COVID-19, just like you would around other people. Although there have not been reports of pets or other animals becoming sick with COVID-19, it is still recommended that people sick with COVID-19 limit contact with animals until more information is known about the virus. When possible, have another member of your household care for your animals while you are sick. If you are sick with COVID-19, avoid contact with your pet, including petting, snuggling, being kissed or licked, and sharing food. If you must care for your pet or be around animals while you are sick, wash your hands before and after you interact with pets and wear a face mask. CALL AHEAD BEFORE VISITING YOUR DOCTOR: Appointments, policies, procedures, and schedules have change significantly since the outbreak of COVID-19. If you have a medical appointment, call the healthcare provider and tell them that you have or may have COVID-19. This will help the healthcare providers office take steps to keep other people from getting infected or exposed. MONITOR YOUR SYMPTOMS: Seek prompt medical attention if your illness is worsening (e.g., difficulty breathing). Before seeking care, call your healthcare provider and tell them that you have, or are being evaluated for, COVID-19. Put on a face mask before you enter the facility. These steps will help the healthcare providers office to keep other people in the office or waiting room from getting infected or exposed. Persons who are placed under active monitoring or facilitated self- monitoring should follow instructions provided by their local health department or occupational health professionals, as appropriate. When working with your local health department check their available hours. If you have a medical emergency and need to call 911, NOTIFY DISPATCH PERSONNEL AND EMS that you have, or are being evaluated for COVID-19!!! If possible, put on a face mask before emergency medical services arrive. Common Symptoms of Coronavirus disease 2019 (COVID-19): The following symptoms may appear 2-14 days after exposure. Fever Dry Cough Shortness of breath (Some patients are also experiencing muscle aches, racing heart beats, nausea, and diarrhea) DISCONTINUING HOME ISOLATION: Patients with confirmed COVID-19 should remain under home isolation precautions until the risk of secondary transmission to others is thought to be low. The decision to discontinue home isolation precautions should be made on a [id number] basis, in consultation with healthcare providers and state and local health departments. This is an ever changing treatment and containment strategy. Remain calm, be flexible, and stay healthy! Want more information on COVID-19? Please visit the following websites. Center for Disease Control and Prevention. https://www.cdc.gov/coronavirus/2019-ncov/index.html [employer]. https://www.acep.org/vj-pfpzpnp-xvkco/infectious-diseases/coronavirus/ It was a pleasure taking care of you! Please call if you have any questions or problems. You can reach a [facility] hospitalist on duty at [facility] 24 hours a day by calling [phone]. Take care of yourself. Yohana Wright, [facility] Centerist Pending Studies at Discharge: Yes Studies:: COVID-19 tracheal aspirate sample pending. Stand-Alone Forms: My [facility], Smoking Cessation Medications and DC Order Prescriptions: New azithromycin 500 mg tablet 500 mg PO DAILY Qty: 3 RF: 0 cefdinir 300 mg capsule 300 mg PO BID Qty: 10 RF: 0 Continued omeprazole 20 mg tablet,delayed release (DR/EC) 20 mg PO QAM RF: 0 ipratropium-albuterol 0.5 mg-3 mg(2.5 mg base)/3 mL solution for nebulization 3 ml INH QID PRN (Reason: Shortness Of Breath Or Wheezing) RF: 0 aspirin [Aspirin Low Dose] 81 mg Tablet,Delayed Release (Dr/Ec) 81 mg PO HS RF: 0 paroxetine HCl [Paxil] 20 mg tablet 20 mg PO HS RF: 0 levothyroxine 125 mcg tablet 125 mcg PO QAM RF: 0 indomethacin 25 mg capsule 1 cap PO TID MDD Gout PRN (Reason: Pain) RF: 0 nitroglycerin 0.4 mg tablet, sublingual 1 tab Sublingual UD PRN (Reason: Chest Pain) RF: 0 albuterol sulfate 2.5 mg /3 mL (0.083 %) Solution For Nebulization 2.5 mg INHALATION QID PRN (Reason: Shortness Of Breath Or Wheezing) RF: 0 clopidogrel 75 mg tablet 75 mg PO QAM RF: 0 amlodipine 5 mg tablet 5 mg PO HS RF: 0 metoprolol succinate 25 mg tablet extended release 24 hr 12.5 mg PO BID RF: 0 budesonide 0.5 mg/2 mL Suspension For Nebulization 0.5 mg INHALATION DAILY RF: 0 Yupelri 175 mcg/3 mL solution for nebulization 175 mcg INH QAM RF: 0 Discharge Orders: Discharge Order (Routine); Ordered 09/19/19 Ordered By: Yohana Wright Admission Data Admit Date/Time: 09/17/19 16:17 Attending Provider: Yohana Wright Admit Provider: Jacques Lucero Primary Care Provider: David Giordano Other Providers: Michael Garcia Other Interventions: Discharge Summary Assessment (RN) Last Done: 09/19/19 14:13 DC Date/Time DO NOT enter until pt leaves facility: 09/19/19 14:20
[2019-09-23 19:29] LABS: SARS CoV2 RNA (COVID-19) Not Detected (Not Detected)
== END 2019-09-19 14:20 | disposition home or self-care (01) ==
LOC: ED 11:15 → SUATTDRO 16:17 → INTOOBSV 16:17 → 2S 16:17

== ENCOUNTER 2020-01-13 14:53 | Observation (INO) ==
[2020-01-13] MEDS ORDERED: ACETAMINOPHEN 500 MG TAB PO STA (15:05)
--- NOTE | 2020-01-13 15:24 | Emergency Department Note ---
Impression & Plan Pneumonia, Fever, Hypoxia ED Provider Note NAME: ALEXANDRA PETERS AGE: 79 SEX: M : 1940 ARRIVES VIA: Ambulance INFORMANT: Patient, ED PROVIDER(S): Michael Ashley DO CHIEF COMPLAINT: Shortness of breath HPI: The patient is an 79-year-old male who presented to the emergency department with an acute shortness of breath. The patient was seen at [facility] in [place] at the ear nose and throat physician. Currently he is being evaluated for a revision of his stoma to have a new type of trach tube that will allow him to start speaking. Currently the patient has a tube that covers from his stoma into his stomach to create a passageway to assist in this procedure. He had an episode a few nights ago where he had emesis. He states he did not aspirate. He has no abdominal pain at this time. He started n oticing shortness of breath and productive cough. He reports a subjective fever but he did not check his temperature. He denies having any nausea or vomiting at this time. He denies having any lower extremity swelling. He complains of shortness of breath which is worsened with exertion as well as lying flat. He denies having any chest pain. He is had no weight gain. The patient did not see his primary care physician for the symptoms. His significant other was very concerned about his breathing and called 911. The patient was placed on oxygen prior to arrival. His oxygen saturation reportedly was acceptable and not hypoxic. The patient has a history of head and neck cancer as well as COPD. He used to use tobacco products. He states he has been using all of his medications as prescribed. ROS: See above HPI for pertinent positives & negatives. A total of 10 systems reviewed and were otherwise negative. PAST MEDICAL HISTORY: See Below PAST SURGICAL HISTORY: See Below FAMILY HISTORY: See Below SOCIAL HISTORY: See Below HOME MEDICATIONS: See Below ALLERGIES: See Below VITALS: See Below PHYSICAL EXAMINATION: GENERAL: Patient is awake alert in no acute distress patient is resting comfortably and showing no signs of anxiety EYES: The conjunctivae are clear. The pupils are round and reactive. EARS, NOSE, MOUTH AND THROAT: The nose is without any evidence of any deformity. NECK: Stoma site was clear. There was no drainage or erythema noted. RESPIRATORY: Shallow respirations were noted. Diminished breath sounds are noted throughout. There were rales at the left base. Diminished breath sounds are noted at the right base significantly compared to the other side. CARDIOVASCULAR: Regular rate and rhythm was noted to auscultation. Systolic murmur was noted. GASTROINTESTINAL: The abdomen is soft. Abdomen is nontender. MUSCULOSKELETAL/EXTREMITIES: There is no evidence of gross deformity full range of motion is noted in the hips and shoulders. SKIN: There is no obvious evidence of any rash. There are no petechiae, pallor or cyanosis noted. NEUROLOGIC: Patient is awake alert and oriented x 3. MEDICAL DECISION MAKING: The patient is an 79-year-old male who presented to the emergency department for an evaluation of difficulty breathing. The patient had a rather acute onset of shortness of breath. He was seen at [place] recently at his ear nose and throat physician's office. The patient is scheduled to have a procedure on his stoma. The patient was found to have a fever. The patient's history and physical exam appear to be consistent with pneumonia. He was started on IV anti biotics in emergency department. He was also treated with IV fluids. I discussed the patient's laboratory and radiographic studies with him. Given his findings I also discussed his case with the on[facility]. They have agreed to evaluate the patient in the emergency department for further management and disposition. The patient was reevaluated multiple times. He was feeling much better. He did clear some sputum and his oxygen saturation improved significantly. Triage Nursing notes reviewed. Prior medical records reviewed Vital Signs: reviewed and remarkable for fever, tachypnea, hypoxia. Differential diagnosis: Reactive airway disease, pneumonia, pneumothorax, COPD, CHF, infections, cardiac ischemia, pulmonary embolism, musculoskeletal, gastrointestinal, as well as other pathologies. ER treatment provided: See below Diagnostics interpreted by me: ECG: EKG was obtained in the emergency department. My interpretation is normal sinus rhythm at 79 bpm. There is no ectopy. Inferior and lateral ST depressions were noted. This was compared to a tracing from December 042019. Paced rhythm has been replaced with normal sinus rhythm compared to the previous tracing. Otherwise no significant changes were noted. Cardiac Monitoring: An order was placed for continuous cardiac monitoring. The monitor shows a rate of 67 bpm with sinus rhythm. Laboratory studies: As stated above and show below. Imaging studies: See below Consultation(s): 1720: I discussed this case with the [facility] hospitalist group. They will evaluate the patient in the emergency department for further management and disposition. 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 LAST CHECKED REMOTELY 05/31/18 Carotid artery stenosis with cerebral infarction over 8 weeks ago The patient presented to [facility] ED on 03/26/18 with expressive aphasia, left upper extremity numbness, left lower extremity weakness. Symptoms were resolving by the time the patient arrived in the ED. 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 Neck pain OCCASIONAL Obesity JAIME on CPAP no longer on CPAP post tracheostomy Peripheral eosinophilia Pharyngocutaneous fistula Sleep apnea CPAP Surgical History History of bronchoscopy History of carotid endarterectomy RIGHT (MARCH 2018) History of cataract extraction with lens replacement cataract extraction with IOL implant and LRI left eye - 05/02/12 History of colonoscopy with polypectomy History of coronary artery bypass graft X2 VESSEL 1995 -- [facility] History of rotator cuff surgery Right - 2009 History of tonsillectomy Hx of laryngectomy Family History Mother Essential hypertension Stroke Social History Smoking Status: Former smoker Tobacco Type: Cigarettes Cigarettes Per Day: 60; Second Hand Exposure: No; Hx Alcohol Use: Yes Alcohol type: beer, wine and hard liquor Hx Substance Use: No Preferred Language: Yakut Communication Ability: non verbal Visual Impairment: No Limitations Screw Cutter Required: No Beliefs That Will Affect Care: None marital status: Current Living Situation: Spouse current occupational status: retired Other Information That Helps Us Care for You: No Feels Safe at Home: Yes Allergies Allergies Allergy/AdvReac Type Severity Reaction Status Date / Time atorvastatin AdvReac Unknown stiffness Verified 01/13/20 16:30 Home Meds Home Medications Medication Instructions Recorded Confirmed aspirin [Aspirin Low Dose] 81 mg PO HS 03/25/18 01/13/20 indomethacin 1 cap PO TID PRN MDD Gout 03/25/18 01/13/20 levothyroxine 125 mcg PO QAM 03/25/18 01/13/20 nitroglycerin 1 tab SUBLINGUAL UD PRN 03/25/18 01/13/20 paroxetine HCl [Paxil] 20 mg PO HS 03/25/18 01/13/20 clopidogrel 75 mg PO QAM 06/03/18 01/13/20 ipratropium 0.5 mg-albuterol 3 mg 3 ml INH QID PRN 06/09/19 01/13/20 (2.5 mg base)/3 mL nebulization soln albuterol sulfate 2.5 mg INHALATION QID PRN 08/19/19 01/13/20 omeprazole 20 mg tablet,delayed 20 mg PO QAM 09/06/19 01/13/20 release amlodipine 5 mg PO HS 09/17/19 01/13/20 budesonide 0.5 mg INHALATION QAM 09/17/19 01/13/20 atorvastatin [Lipitor] 40 mg PO HS 01/13/20 01/13/20 chlorhexidine gluconate 15 ml BUCCAL BID 01/13/20 01/13/20 doxycycline hyclate [Vibramycin] 100 mg PO BID PRN 01/13/20 01/13/20 prednisone 40 mg PO DAILY PRN 01/13/20 01/13/20 Results & Data (ED) Vital Signs Vital Signs - 24 hr 01/13/20 15:06 01/13/20 15:15 01/13/20 15:45 Temperature 39.2 C H Temperature Source Oral Pulse Rate 79 Pulse Rate from SpO2 Sensor 74 Pulse Rhythm Regular Respiratory Rate 15 Respiratory Effort / Characteristics Non-Labored Respiratory Depth Normal Respiratory Pattern Regular Blood Pressure 190/71 H 164/60 H Blood Pressure Mean 110 91 Blood Pressure Position Sitting Pulse Oximetry 92 99 99 Oxygen Delivery Method Non-rebreather Non-rebreather Oxygen Flow Rate 15 Sepsis Recent Fever Within 48 Hours Yes Sepsis New/Unexplained Change in Mental Status No Sepsis Action Taken by Nursing No Action Required 01/13/20 15:59 01/13/20 16:00 01/13/20 16:11 Temperature Temperature Source Pulse Rate 71 69 67 Pulse Rate from SpO2 Sensor 71 69 67 Pulse Rhythm Respiratory Rate 25 H 33 H 25 H Respiratory Effort / Characteristics Respiratory Depth Respiratory Pattern Blood Pressure 150/81 H 161/66 H 132/70 Blood Pressure Mean 119 92 80 Blood Pressure Position Pulse Oximetry 100 100 100 Oxygen Delivery Method Oxygen Flow Rate 15 Sepsis Recent Fever Within 48 Hours Sepsis New/Unexplained Change in Mental Status Sepsis Action Taken by Nursing 01/13/20 16:15 01/13/20 16:30 01/13/20 16:45 Temperature Temperature Source Pulse Rate 66 64 64 Pulse Rate from SpO2 Sensor 66 64 64 Pulse Rhythm Respiratory Rate 19 16 17 Respiratory Effort / Characteristics Respiratory Depth Respiratory Pattern Blood Pressure 141/55 H 149/58 H 158/65 H Blood Pressure Mean 92 89 94 Blood Pressure Position Pulse Oximetry 100 100 100 Oxygen Delivery Method Oxygen Flow Rate 15 15 15 Sepsis Recent Fever Within 48 Hours Sepsis New/Unexplained Change in Mental Status Sepsis Action Taken by Nursing 01/13/20 17:00 01/13/20 17:15 01/13/20 17:30 Temperature Temperature Source Pulse Rate 64 62 63 Pulse Rate from SpO2 Sensor 64 62 63 Pulse Rhythm Respiratory Rate 19 23 23 Respiratory Effort / Characteristics Respiratory Depth Respiratory Pattern Blood Pressure 135/58 L 124/52 L 138/50 L Blood Pressure Mean 68 79 82 Blood Pressure Position Pulse Oximetry 100 100 100 Oxygen Delivery Method Oxygen Flow Rate 10 10 10 Sepsis Recent Fever Within 48 Hours Sepsis New/Unexplained Change in Mental Status Sepsis Action Taken by Nursing 01/13/20 17:34 Temperature 38.8 C H Temperature Source Oral Pulse Rate Pulse Rate from SpO2 Sensor Pulse Rhythm Respiratory Rate Respiratory Effort / Characteristics Respiratory Depth Respiratory Pattern Blood Pressure Blood Pressure Mean Blood Pressure Position Pulse Oximetry Oxygen Delivery Method Oxygen Flow Rate Sepsis Recent Fever Within 48 Hours Sepsis New/Unexplained Change in Mental Status Sepsis Action Taken by [facility] Medications Current Medication List: was personally reviewed by me Laboratory Data Attestation: I reviewed the patient's lab results. Result diagrams: 01/13/20 15:45 01/13/20 15:45 Lab Results 01/13/20 01/13/20 01/13/20 Range/Units 15:29 15:29 15:29 WBC (4.8-10.8) K/uL RBC (4.7-6.1) M/uL Hgb (14.0-18.0) g/dL Hct (42-52) % MCV (80-100) fL MCH (25-34) pg MCHC (32-36) g/dL RDW Std Deviation (36.4-46.3) fL RDW Coeff of Sharda (11.5-14.5) % Plt Count (130-400) K/uL MPV (7.4-10.4) fL Immature Gran % (Auto) % Neut % (Auto) % Lymph % (Auto) % [place] % (Auto) % Eos % (Auto) % Baso % (Auto) % Neut # (Auto) (1.4-6.5) K/uL Lymph # (Auto) (1.2-3.4) K/uL [place] # (Auto) (0.11-0.59) K/uL Eos # (Auto) (0-0.5) K/uL Baso # (Auto) (0-0.2) K/uL Immature Gran # (Auto) (0.00-0.02) K/uL PT INR APTT PTT Ratio VBG pH (7.36-7.41) VBG pCO2 (38-50) mmHg VBG pO2 mmHg VBG HCO3 mmol/L VBG O2 Saturation % VBG Base Excess mEq/L Barometric Pressure mm/Hg Sodium (136-145) mmol/L Potassium (3.5-5.1) mmol/L Chloride (98-107) mmol/L Carbon Dioxide (21-32) mmol/L Anion Gap (3-11) BUN (7-18) mg/dl Creatinine (0.6-1.4) mg/dl Est Cr Clr Drug Dosing Est GFR ( Amer) Est GFR (Non-Af Amer) BUN/Creatinine Ratio (10-20) Glucose (70-99) mg/dl Lactate (0.4-2.0) mmol/L Calcium (8.5-10.1) mg/dl Magnesium (1.8-2.4) mg/dl Total Bilirubin (0.2-1) mg/dl AST (15-37) U/L ALT (12-78) U/L Alkaline Phosphatase (45-117) U/L Troponin I (0-0.045) ng/ml Total Protein (6.4-8.2) gm/dl Albumin (3.4-5.0) gm/dl Globulin (2.5-4.0) gm/dl Albumin/Globulin Ratio (0.9-2) Procalcitonin (0-0.5) ng/ml COVID-19 Eval Order Covid19 Done at [facility] COVID-19 PCR NEGATIVE (Negative) Influenza Type A (PCR) Neg for Influ A (Neg) Influenza Type B (PCR) Neg for Influ B (Neg) 01/13/20 01/13/20 01/13/20 Range/Units 15:45 15:45 15:45 WBC 10.73 (4.8-10.8) K/uL RBC 3.80 L (4.7-6.1) M/uL Hgb 9.2 L (14.0-18.0) g/dL Hct 31.0 L (42-52) % MCV 81.6 (80-100) fL MCH 24.2 L (25-34) pg MCHC 29.7 L (32-36) g/dL RDW Std Deviation 50.8 H (36.4-46.3) fL RDW Coeff of Sharda 16.9 H (11.5-14.5) % Plt Count 409 H (130-400) K/uL MPV 8.8 (7.4-10.4) fL Immature Gran % (Auto) 0.2 % Neut % (Auto) 83.6 % Lymph % (Auto) 9.1 % [place] % (Auto) 5.1 % Eos % (Auto) 1.8 % Baso % (Auto) 0.2 % Neut # (Auto) 8.97 H (1.4-6.5) K/uL Lymph # (Auto) 0.98 L (1.2-3.4) K/uL [place] # (Auto) 0.55 (0.11-0.59) K/uL Eos # (Auto) 0.19 (0-0.5) K/uL Baso # (Auto) 0.02 (0-0.2) K/uL Immature Gran # (Auto) 0.02 (0.00-0.02) K/uL PT Cancelled INR Cancelled APTT Cancelled PTT Ratio Cancelled VBG pH (7.36-7.41) VBG pCO2 (38-50) mmHg VBG pO2 mmHg VBG HCO3 mmol/L VBG O2 Saturation % VBG Base Excess mEq/L Barometric Pressure mm/Hg Sodium 141 (136-145) mmol/L Potassium 3.9 (3.5-5.1) mmol/L Chloride 107 (98-107) mmol/L Carbon Dioxide 27 (21-32) mmol/L Anion Gap 8.0 (3-11) BUN 17 (7-18) mg/dl Creatinine 1.39 (0.6-1.4) mg/dl Est Cr Clr Drug Dosing Not Reportable Est GFR ( Amer) 55.1 Est GFR (Non-Af Amer) 47.5 BUN/Creatinine Ratio 11.9 (10-20) Glucose 97 (70-99) mg/dl Lactate (0.4-2.0) mmol/L Calcium 8.9 (8.5-10.1) mg/dl Magnesium 2.0 (1.8-2.4) mg/dl Total Bilirubin 0.3 (0.2-1) mg/dl AST 23 (15-37) U/L ALT 25 (12-78) U/L Alkaline Phosphatase 91 (45-117) U/L Troponin I 0.122 H* (0-0.045) ng/ml Total Protein 7.7 (6.4-8.2) gm/dl Albumin 3.6 (3.4-5.0) gm/dl Globulin 4.1 H (2.5-4.0) gm/dl Albumin/Globulin Ratio 0.9 (0.9-2) Procalcitonin (0-0.5) ng/ml COVID-19 Eval Order COVID-19 PCR (Negative) Influenza Type A (PCR) (Neg) Influenza Type B (PCR) (Neg) 01/13/20 01/13/20 01/13/20 Range/Units 15:45 16:32 16:32 WBC (4.8-10.8) K/uL RBC (4.7-6.1) M/uL Hgb (14.0-18.0) g/dL Hct (42-52) % MCV (80-100) fL MCH (25-34) pg MCHC (32-36) g/dL RDW Std Deviation (36.4-46.3) fL RDW Coeff of Sharda (11.5-14.5) % Plt Count (130-400) K/uL MPV (7.4-10.4) fL Immature Gran % (Auto) % Neut % (Auto) % Lymph % (Auto) % [place] % (Auto) % Eos % (Auto) % Baso % (Auto) % Neut # (Auto) (1.4-6.5) K/uL Lymph # (Auto) (1.2-3.4) K/uL [place] # (Auto) (0.11-0.59) K/uL Eos # (Auto) (0-0.5) K/uL Baso # (Auto) (0-0.2) K/uL Immature Gran # (Auto) (0.00-0.02) K/uL PT INR APTT PTT Ratio VBG pH 7.41 (7.36-7.41) VBG pCO2 48 (38-50) mmHg VBG pO2 25 mmHg VBG HCO3 29 mmol/L VBG O2 Saturation < 60.0 % VBG Base Excess 4.1 mEq/L Barometric Pressure 733.7 mm/Hg Sodium (136-145) mmol/L Potassium (3.5-5.1) mmol/L Chloride (98-107) mmol/L Carbon Dioxide (21-32) mmol/L Anion Gap (3-11) BUN (7-18) mg/dl Creatinine (0.6-1.4) mg/dl Est Cr Clr Drug Dosing Est GFR ( Amer) Est GFR (Non-Af Amer) BUN/Creatinine Ratio (10-20) Glucose (70-99) mg/dl Lactate 2.3 H* (0.4-2.0) mmol/L Calcium (8.5-10.1) mg/dl Magnesium (1.8-2.4) mg/dl Total Bilirubin (0.2-1) mg/dl AST (15-37) U/L ALT (12-78) U/L Alkaline Phosphatase (45-117) U/L Troponin I (0-0.045) ng/ml Total Protein (6.4-8.2) gm/dl Albumin (3.4-5.0) gm/dl Globulin (2.5-4.0) gm/dl Albumin/Globulin Ratio (0.9-2) Procalcitonin < 0.05 (0-0.5) ng/ml COVID-19 Eval Order COVID-19 PCR (Negative) Influenza Type A (PCR) (Neg) Influenza Type B (PCR) (Neg) 01/13/20 Range/Units 16:51 WBC (4.8-10.8) K/uL RBC (4.7-6.1) M/uL Hgb (14.0-18.0) g/dL Hct (42-52) % MCV (80-100) fL MCH (25-34) pg MCHC (32-36) g/dL RDW Std Deviation (36.4-46.3) fL RDW Coeff of Sharda (11.5-14.5) % Plt Count (130-400) K/uL MPV (7.4-10.4) fL Immature Gran % (Auto) % Neut % (Auto) % Lymph % (Auto) % [place] % (Auto) % Eos % (Auto) % Baso % (Auto) % Neut # (Auto) (1.4-6.5) K/uL Lymph # (Auto) (1.2-3.4) K/uL [place] # (Auto) (0.11-0.59) K/uL Eos # (Auto) (0-0.5) K/uL Baso # (Auto) (0-0.2) K/uL Immature Gran # (Auto) (0.00-0.02) K/uL PT 10.9 INR 1.0 APTT 22.0 PTT Ratio 0.8 VBG pH (7.36-7.41) VBG pCO2 (38-50) mmHg VBG pO2 mmHg VBG HCO3 mmol/L VBG O2 Saturation % VBG Base Excess mEq/L Barometric Pressure mm/Hg Sodium (136-145) mmol/L Potassium (3.5-5.1) mmol/L Chloride (98-107) mmol/L Carbon Dioxide (21-32) mmol/L Anion Gap (3-11) BUN (7-18) mg/dl Creatinine (0.6-1.4) mg/dl Est Cr Clr Drug Dosing Est GFR ( Amer) Est GFR (Non-Af Amer) BUN/Creatinine Ratio (10-20) Glucose (70-99) mg/dl Lactate (0.4-2.0) mmol/L Calcium (8.5-10.1) mg/dl Magnesium (1.8-2.4) mg/dl Total Bilirubin (0.2-1) mg/dl AST (15-37) U/L ALT (12-78) U/L Alkaline Phosphatase (45-117) U/L Troponin I (0-0.045) ng/ml Total Protein (6.4-8.2) gm/dl Albumin (3.4-5.0) gm/dl Globulin (2.5-4.0) gm/dl Albumin/Globulin Ratio (0.9-2) Procalcitonin (0-0.5) ng/ml COVID-19 Eval Order COVID-19 PCR (Negative) Influenza Type A (PCR) (Neg) Influenza Type B (PCR) (Neg) Administered Medications Amlodipine Besylate (Amlodipine Besylate 5 Mg Tab) 5 mg PO HS HNUG Stop: 02/12/20 20:59 Last Admin: 01/13/20 21:13 Dose: 5 mg Documented by: [id number] Aspirin (Aspirin 81 Mg Ectab) 81 mg PO HS HUNG Stop: 02/12/20 20:59 Last Admin: 01/13/20 21:13 Dose: 81 mg Documented by: [id number] Atorvastatin Calcium (Atorvastatin 40 Mg Tab) 40 mg PO HS HUNG Stop: 02/12/20 20:59 Last Admin: 01/13/20 21:14 Dose: 40 mg Documented by: [id number] Chlorhexidine Gluconate (Chlorhexidine Gluconate 0.12% 480 Ml) 15 ml MT BID HUNG Stop: 02/12/20 20:59 Last Admin: 01/13/20 21:14 Dose: 15 ml Documented by: [id number] Heparin Sodium (Porcine) (Heparin Sod 5,000 Unit/0.5 Ml Vial) 5,000 units SQ Q8 HUNG Stop: 02/12/20 21:59 Last Admin: 01/13/20 21:14 Dose: 5,000 units Documented by: [id number] Cosigned by: [id number] Piperacillin Sod/Tazobactam (Sod 3.375 gm/ Dextrose) 115 mls @ 28.75 mls/hr IV Q8H HUNG; Protocol Stop: 01/20/20 19:59 Last Admin: 01/13/20 21:14 Dose: 28.8 mls/hr Documented by: [id number] Paroxetine HCl (Paroxetine Hcl 20 Mg Tab) 20 mg PO HS HUNG Stop: 02/12/20 20:59 Last Admin: 01/13/20 21:13 Dose: 20 mg Documented by: [id number] Discontinued Medications Acetaminophen (Acetaminophen 500 Mg Tab) 1,000 mg PO NOW STA Stop: 01/13/20 15:06 Last Admin: 01/13/20 15:54 Dose: 1,000 mg Documented by: [id number] Piperacillin Sod/Tazobactam Sod (Zosyn) 4.5 gm in 120 mls @ 240 mls/hr IV NOW ONE Stop: 01/13/20 17:11 Last Infusion: 01/13/20 17:24 Dose: 0 mls/hr Documented by: [id number] Admin: 01/13/20 16:54 Dose: 240 mls/hr Documented by: [id number] Sodium Chloride (Nss 1000ml) 1,000 mls @ 999 mls/hr IV .Q1H1M ONE Stop: 01/13/20 17:43 Last Infusion: 01/13/20 16:51 Dose: 0 mls/hr Documented by: [id number] Admin: 01/13/20 15:50 Dose: 999 mls/hr Documented by: [id number] Imaging Data Radiologist's Impression: XR chest 1V portable HISTORY: 79 years-old Male SEPSIS acute sepsis with shortness of breath COMPARISON: Chest CT and chest radiograph 12/05/2019 TECHNIQUE: Portable AP view of the chest FINDINGS: Cardiac silhouette is enlarged. Prior median sternotomy. Left subclavian pacer. There is a catheter overlying the midline with distal portion coiled over the e pigastric distribution. Mild patchy left lung base opacities. No pneumothorax, overt pulmonary edema or large pleural effusion. Degenerative changes of the shoulders and spine. Surgical anchor of the right humeral head. IMPRESSION: Left lung base opacities suggestive of atelectasis versus pneumonit is. ACT 112: Negative or not required by law. The above report was generated using voice recognition software. It may contain grammatical, syntax or spelling errors. Electronically signed by: Neo Siddiqui M.D. 01/13/2020 3:59 PM Dictated: 01/13/20 1557 Transcribed: 01/13/20 1557 Blood Pressure Blood Pressure Findings: Elevated blood pressure Blood Pressure Disposition: further management by hospitalist Discharge Plan Visit Data Chief Complaint: Shortness of Breath/Dyspnea ED Provider: Michael Ashley Discharge Problem: Pneumonia, Fever, Hypoxia Patient Disposition: Admitted As Inpatient Condition: Good Discharge Instructions Interventions: ED Discharge Assessment Last Done: 01/13/20 19:04
[2020-01-13 15:59] LABS: Basophils # (auto) 0.02 K/uL (0-0.2); Basophils % (auto) 0.2 %; Eosinophils # (auto) 0.19 K/uL (0-0.5); Eosinophils % (auto) 1.8 %; Hemoglobin 9.2 g/dL (14.0-18.0); Immature Granulocytes # (auto) 0.02 K/uL (0.00-0.02); Immature Granulocytes % (auto) 0.2 %; Lymphocytes # (auto) 0.98 K/uL (1.2-3.4); Lymphocytes % (auto) 9.1 %; Mean Corpuscular Hemoglobin 24.2 pg (25-34); Mean Corpuscular Hgb Conc 29.7 g/dL (32-36); Mean Corpuscular Volume 81.6 fL (80-100); Mean Platelet Volume 8.8 fL (7.4-10.4); Monocytes # (auto) 0.55 K/uL (0.11-0.59); Monocytes % (auto) 5.1 %; Neutrophils # (auto) 8.97 K/uL (1.4-6.5); Neutrophils % (auto) 83.6 %; Platelet Count 409 K/uL (130-400); RDW Coefficient of Variation 16.9 % (11.5-14.5); RDW Standard Deviation 50.8 fL (36.4-46.3); White Blood Count 10.73 K/uL (4.8-10.8)
--- NOTE | 2020-01-13 16:00 | XRay Report ---
XR chest 1V portable HISTORY: 79 years-old Male SEPSIS acute sepsis with shortness of breath COMPARISON: Chest CT and chest radiograph 12/05/2019 TECHNIQUE: Portable AP view of the chest FINDINGS: Cardiac silhouette is enlarged. Prior median sternotomy. Left subclavian pacer. There is a catheter o verlying the midline with distal portion coiled over the epigastric distribution. Mild patchy left kacie ng base opacities. No pneumothorax, overt pulmonary edema or large pleural effusion. Degenerative jarred nges of the shoulders and spine. Surgical anchor of the right humeral head. IMPRESSION: Left lung base opacities suggestive of atelectasis versus pneumonitis. ACT 112: Negative or not required by law. The above report was generated using voice recognition software. It may contain grammatical, syntax o r spelling errors. Electronically signed by: Neo Siddiqui M.D. 01/13/2020 3:59 PM
[2020-01-13 16:14] LABS: Influenza A virus by PCR Neg for Influ A (Neg); Influenza B virus by PCR Neg for Influ B (Neg)
[2020-01-13 16:21] LABS: Alanine Aminotransferase 25 U/L (12-78); Albumin Level 3.6 gm/dl (3.4-5.0); Aspartate Aminotransferase 23 U/L (15-37); BUN Creatinine Ratio 11.9 (10-20); Blood Urea Nitrogen 17 mg/dl (7-18); Calcium 8.9 mg/dl (8.5-10.1); Carbon Dioxide 27 mmol/L (21-32); Chloride 107 mmol/L (98-107); Est GFR (African American) 55.1; Est GFR (Non-African American) 47.5; Glucose 97 mg/dl (70-99); Potassium 3.9 mmol/L (3.5-5.1); Sodium 141 mmol/L (136-145)
[2020-01-13 16:32] LABS: Albumin Globulin Ratio 0.9 (0.9-2); Alkaline Phosphatase 91 U/L (45-117); Bilirubin,Total 0.3 mg/dl (0.2-1); Globulin 4.1 gm/dl (2.5-4.0); Total Protein 7.7 gm/dl (6.4-8.2); Troponin I 0.122 ng/ml (0-0.045)
[2020-01-13] MEDS ORDERED: PIPERACILLIN/TAZOBACTAM 4.5 GM/120 ML BAG IV ONE (16:42)
[2020-01-13] MEDS ORDERED: PIPERACILL/TAZOBAC CONSULT ACTIVE PRN (16:42)
[2020-01-13] MEDS ORDERED: SODIUM CHLORIDE 0.9% 1000ML 1,000 ML IV ONE (16:43)
[2020-01-13 16:44] LABS: Base Excess VBG 4.1 mEq/L; HCO3 VBG 29 mmol/L; PCO2 VBG 48 mmHg (38-50); PO2 VBG 25 mmHg; pH VBG 7.41 (7.36-7.41)
[2020-01-13 16:46] LABS: Oxygen Saturation VBG < 60.0 %
[2020-01-13 17:10] LABS: Partial Thromboplastin Ratio 0.8; Prothrombin Time 10.9 Seconds (9.0-12.0)
--- NOTE | 2020-01-13 18:42 | History & Physical Report ---
Date of Service January 13, 2020 Assessment & Plan (1) Acute hypoxemic respiratory failure: (2) Pneumonia: (3) Tracheostomy in place: This is an 79yo M with a PMH of head and neck cancer s/p laryngectomy [place] [address] [facility] for recurrent laryngeal cancer, COPD, CAD s/p CABG, SSS s/p PPM, PVD s/p surgery, HTN, HLD, history of CVA, JAIME on CPAP, hypothyroidism, CKD, chronic anemia who presents with increased in sputum production associated with fever and was found to have pneumonia vs. aspiration pneumonitis. -Recently underwent cricopharyngeal myotomy procedure by ENT in [place] on 01/10 as part of process to create a speaking valve -Currently saturating at 94% on non-rebreather. Reportedly hypoxic SODA JERKER but not documented. Febrile at 39.2 C. No leukocytosis. Lactic acid mildly elevated at 2.3. Procalcitonin within normal range -Nasopharyngeal COVID-19 PCR and Flu PCR negative. 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 Crouch, who does not feel it is necessary at this time -CXR with left lung base opacities suggestive of atelectasis versus pneumonitis -Continue Zosyn started in ED due to increased risk for aspiration given recent ENT procedure -Follow blood and sputum cultures, duonebs PRN -Routine pulmonary consult -Keep NPO except meds. Speech therapy consulted (4) COPD (chronic obstructive pulmonary disease): Continue budesonide, Duonebs PRN (5) Elevated troponin: Troponin elevation of 0.122. Trop elevation noted in the past. H/o CAD s/p CABG in 1995. No acute changes on EKG today, no cardiac symptoms on exam. Monitor on telemetry, trend troponin (6) Laryngeal cancer: History of head and neck cancer status post laryngectomy and insertion of a tracheostomy (7) History of CVA (cerebrovascular accident): CVA in 2018 without residual deficits. Continue aspirin, plavix and statin (8) SSS (sick sinus syndrome): S/p pacemaker placement (9) Hypothyroidism: Continue levothyroxine (10) Anxiety: Continue SSRI DVT Ppx: SQ heparin Code status: FULL PCP: Giuliana Dispo: Admitted to PCU. Discharge planning ordered. Patient seen in collaboration with Dr. De León. Please see addendum. History of Present Illness Chief Complaint: sputum production, fever Primary Care Provider: David Giordano, This is an 79yo M with a PMH of head and neck cancer s/p laryngectomy [place] [address] [facility] for recurrent laryngeal cancer, COPD, CAD s/p CABG, SSS s/p PPM, PVD s/p surgery, HTN, HLD, history of CVA, hypothyroidism, CKD, chronic anemia who presents with increased in sputum production associated with fever. Recently underwent cricopharyngeal myotomy procedure by ENT in [place] on 01/10 as part of process to create a speaking valve. Had an episode of emesis a few nights ago but denies aspiration. Has been having increased sputum production from trach that is yellowish in color. Denies presence of blood in sputum. Also endorsing fever and chills. Denies headache, lightheadedness, visual changes, chest pain, palpitations, abdominal pain, dysuria, constipation or diarrhea. Currently saturating at 94% on non-rebreather. Febrile at 39.2 C. No le ukocytosis. Lactic acid mildly elevated at 2.3. Procalcitonin within normal range. Nasopharyngeal COVID-19 PCR and Flu PCR negative. CXR with left lung base opacities suggestive of atelectasis versus pneumonitis. Allergies Allergy/AdvReac Type Severity Reaction Status Date / Time atorvastatin AdvReac Unknown stiffness Verified 01/13/20 16:30 Home Medications Home Medications Medication Instructions Recorded Confirmed Type aspirin [Aspirin Low Dose] 81 mg PO HS 03/25/18 01/13/20 History indomethacin 1 cap PO TID PRN MDD Gout 03/25/18 01/13/20 History levothyroxine 125 mcg PO QAM 03/25/18 01/13/20 History nitroglycerin 1 tab SUBLINGUAL UD PRN 03/25/18 01/13/20 History paroxetine HCl [Paxil] 20 mg PO HS 03/25/18 01/13/20 History clopidogrel 75 mg PO QAM 06/03/18 01/13/20 History ipratropium 0.5 mg-albuterol 3 mg 3 ml INH QID PRN 06/09/19 01/13/20 History (2.5 mg base)/3 mL nebulization soln albuterol sulfate 2.5 mg INHALATION QID PRN 08/19/19 01/13/20 History omeprazole 20 mg tablet,delayed 20 mg PO QAM 09/06/19 01/13/20 History release amlodipine 5 mg PO HS 09/17/19 01/13/20 History budesonide 0.5 mg INHALATION QAM 09/17/19 01/13/20 History atorvastatin [Lipitor] 40 mg PO HS 01/13/20 01/13/20 History chlorhexidine gluconate 15 ml BUCCAL BID 01/13/20 01/13/20 History doxycycline hyclate [Vibramycin] 100 mg PO BID PRN 01/13/20 01/13/20 History prednisone 40 mg PO DAILY PRN 01/13/20 01/13/20 History Past Med/Surg History Medical History (Updated 01/13/20 @ 19:27 by Radha Stone PA-C) Acute hypoxemic respiratory failure Anxiety Benign neoplasm of colon CAD (coronary artery disease) "1995 - CABG x 2" Cardiac pacemaker in situ 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 LAST CHECKED REMOTELY 05/31/18 Carotid artery stenosis with cerebral infarction over 8 weeks ago The patient presented to [facility] ED on 03/26/18 with expressive aphasia, left upper extremity numbness, left lower extremity weakness. Symptoms were resolving by the time the patient arrived in the ED. 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 Neck pain OCCASIONAL Obesity JAIME on CPAP no longer on CPAP post tracheostomy Peripheral eosinophilia Pharyngocutaneous fistula Sleep apnea CPAP Surgical History History of bronchoscopy History of carotid endarterectomy RIGHT (MARCH 2018) History of cataract extraction with lens replacement cataract extraction with IOL implant and LRI left eye - 05/02/12 History of colonoscopy with polypectomy History of coronary artery bypass graft X2 VESSEL 1995 -- [facility] History of rotator cuff surgery Right - 2009 History of tonsillectomy Hx of laryngectomy Family History Mother Essential hypertension Stroke Social History Smoking Status: Former smoker Tobacco Type: Cigarettes Cigarettes Per Day: 60; Second Hand Exposure: No; Hx Alcohol Use: Yes Alcohol type: beer, wine and hard liquor Hx Substance Use: No Preferred Language: Honduran Communication Ability: non verbal Visual Impairment: No Limitations Opticianry Teacher Required: No Beliefs That Will Affect Care: None marital status: Current Living Situation: Spouse current occupational status: retired Other Information That Helps Us Care for You: No Feels Safe at Home: Yes Review of Systems Review of Systems: At least ten systems reviewed and negative except as noted in the HPI. Physical Exam Physical Exam: Please see Dr. De León's addendum for physical exam Results & Data Results & Data ([facility]) Vital Signs (Past 12 Hours) Vital Signs Temp Pulse Resp BP Pulse Ox 01/13/20 18:30 65 24 137/52 L 94 01/13/20 18:15 65 22 136/50 L 93 01/13/20 18:00 63 20 129/50 L 94 01/13/20 17:45 61 20 132/46 L 97 01/13/20 17:34 38.8 C H 01/13/20 17:30 63 23 138/50 L 100 01/13/20 17:15 62 23 124/52 L 100 01/13/20 17:00 64 19 135/58 L 100 01/13/20 16:45 64 17 158/65 H 100 01/13/20 16:30 64 16 149/58 H 100 01/13/20 16:15 66 19 141/55 H 100 01/13/20 16:11 67 25 H 132/70 100 01/13/20 16:00 69 33 H 161/66 H 100 01/13/20 15:59 71 25 H 150/81 H 100 01/13/20 15:45 99 01/13/20 15:15 164/60 H 99 01/13/20 15:06 39.2 C H 79 15 190/71 H 92 Laboratory Results Short CBC 01/13/20 Range/Units 15:45 WBC 10.73 (4.8-10.8) K/uL Hgb 9.2 L (14.0-18.0) g/dL Hct 31.0 L (42-52) % Plt Count 409 H (130-400) K/uL BMP 01/13/20 15:45 Sodium 141 Potassium 3.9 Chloride 107 Carbon Dioxide 27 BUN 17 Creatinine 1.39 Glucose 97 Calcium 8.9 Cardiac Enzymes 01/13/20 Range/Units 15:45 Troponin I 0.122 H* (0-0.045) ng/ml Liver Function 01/13/20 Range/Units 15:45 Total Bilirubin 0.3 (0.2-1) mg/dl AST 23 (15-37) U/L ALT 25 (12-78) U/L Alkaline Phosphatase 91 (45-117) U/L Albumin 3.6 (3.4-5.0) gm/dl Diagnostic Findings CXR: IMPRESSION: Left lung base opacities suggestive of atelectasis versus pneumonitis. Code Status & VTE Plan VTE Prophylaxis Plan VTE Prophylaxis will be ordered: Yes Supervising Physician Co-Signing Physician Notes I saw this patient with the physician internet marketing assistant, I participated in the history, physical, review of systems, and physical exam. I reviewed the medications with the patient and the physician internet marketing assistant and helped reconcile the medications. I helped take a detailed family and social history as well. I formulated the assessment and plan personally with the physician internet marketing assistant and went over it with the patient. ROS-No Headache, No Visual Changes, No Nausea, No Vomiting, +Fever, +Chills, No Neck Pain or Stiffness, No Chest Pain, No Palpitations, No SOB, No VELEZ, +Cough, +Sputum, No Wheezing, No Abdominal Pain, No Diarrhea, No Hematemesis, No Hemoptysis, No Unexpected Weight Loss, No Flank pain, No Melena, No Hematochezia, No Frequency, No Urgency, No Burning, No Hematuria, No Rashes, No Diaphoresis. Appetite is Normal Physical Exam Gen-AAO x 3, NAD, Afebrile, Pleasant, Non-Toxic Head-NCAT, EOMI, PERRLA, Anicteric Sclera, No Posterior Pharyngeal Erythema Neck-Supple, No JVD, No Thyromegaly, No Masses, No LAD, No Bruits, +Trach, Suction drain in place Lungs-Clear to Auscultation Bilaterally, No Rales, No Rhonchi, No Wheezing, No Crepitus Chest-No S4, +S1, +S2, No S3, No Murmurs, No Rubs, No Gallops, No Ectopy Abdomen-Soft, Bowel Sounds Present, Non Tender, Non Distended, No Hepatomegaly, No Splenomegaly, No Palpable Masses, No Rebound, No Rigidity, No Guarding Musculoskeletal-Full Range of Motion Bilaterally, No CVAT Extremities-No Cyanosis, No Clubbing, No Edema Nuero-Cranial Nerves II-XII grossly intact, Motor WNL, DTRs WNL, Strength WNL, Non Focal Psych-Normal Mood (1) Hypothyroidism Hypothyroidism type: acquired Qualified Code(s): E03.9 - Hypothyroidism, unspecified
[2020-01-13] MEDS ORDERED: ACETAMINOPHEN 1,000 MG/100 ML VIAL IV PRN (19:32)
[2020-01-13] MEDS ORDERED: NITROGLYCERIN SL 0.4 MG/TAB TAB SL PRN (19:48)
[2020-01-13] MEDS ORDERED: INDOMETHACIN 25 MG CAP PO PRN (19:48)
[2020-01-13] MEDS ORDERED: ALBUT/IPRATROP 3MG/0.5MG NEB 3 ML VIAL NEB PRN (19:50)
[2020-01-13] MEDS ORDERED: ASPIRIN 81 MG ECTAB PO SCH (21:00)
[2020-01-13] MEDS ORDERED: ATORVASTATIN 40 MG TAB PO SCH (21:00)
[2020-01-13] MEDS ORDERED: AMLODIPINE BESYLATE 5 MG TAB PO SCH (21:00)
[2020-01-13] MEDS ORDERED: PARoxetine HCL 20 MG TAB PO SCH (21:00)
[2020-01-13] MEDS: PIPERACILLIN/TAZOBACTAM 3.375 GM in DEXTROSE 5% 100 ML IV SCH (21:14)
[2020-01-13] MEDS: HEPARIN SOD 5,000 UNIT/0.5 ML VIAL SQ SCH (21:14)
[2020-01-13] MEDS: CHLORHEXIDINE GLUCONATE 0.12% 480 ML MT SCH (21:14)
[2020-01-14 03:54] LABS: Hematocrit (blood only) 26.1 % (42-52); Hemoglobin 7.7 g/dL (14.0-18.0); Mean Corpuscular Hemoglobin 23.9 pg (25-34); Mean Corpuscular Hgb Conc 29.5 g/dL (32-36); Mean Corpuscular Volume 81.1 fL (80-100); Mean Platelet Volume 8.9 fL (7.4-10.4); Platelet Count 313 K/uL (130-400); RDW Coefficient of Variation 16.8 % (11.5-14.5); RDW Standard Deviation 50.4 fL (36.4-46.3); Red Blood Count 3.22 M/uL (4.7-6.1); White Blood Count 12.83 K/uL (4.8-10.8)
[2020-01-14 04:17] LABS: BUN Creatinine Ratio 13.9 (10-20); Creatinine Clr Calc Pharmacy 58.5 ml/min; Est GFR (Non-African American) 53.5; Potassium 3.8 mmol/L (3.5-5.1)
[2020-01-14] MEDS: PIPERACILLIN/TAZOBACTAM 3.375 GM in DEXTROSE 5% 100 ML IV SCH (05:24)
[2020-01-14] MEDS: HEPARIN SOD 5,000 UNIT/0.5 ML VIAL SQ SCH (05:25)
[2020-01-14] MEDS ORDERED: LEVOTHYROXINE SODIUM 125 MCG TABLET PO SCH (06:30)
[2020-01-14] MEDS ORDERED: BUDESONIDE 0.5 MG/2 ML VIAL (PULMICORT) INH SCH (08:00)
--- NOTE | 2020-01-14 08:31 | Pulmonary Consultation ---
Date of Consultation January 14, 2020 Assessment & Plan (1) Fever: Fever type: unspecified Qualified Code(s): R50.9 - Fever, unspeci fied (2) Hypoxia: (3) Tracheostomy in place: (4) Tracheobronchitis: Impression: 79-year-old male status post tracheotomy with recent Heller myotomy admitted with fevers, initial leukocytosis and concern for pneumonia however my review of the x-ray does not demonstrate any significant change compared to his x-ray from last month. He is clinically improved. He may have a component of tracheobronchitis. Prior respiratory cultures have shown no growth. He appears significantly clinically improved currently. Recommendations: 1. Febrile illness: Patient's chest x-ray does not appear significantly different from his chest x-ray last month and with a negative procalcitonin I think de-escalation of antibiotics is appropriate. Would de-escalate him down to Augmentin which she should continue for 5 to 7 days based on clinical response. Okay from my perspective to allow the patient to eat so we will advance his diet. 2. History of obstructive lung disease: The patient is not bronchospastic currently. No indication for steroids. Continue current outpatient bronchodilator regimen. 3. Hypoxemia: Impossible to do incentive spirometry given his tracheostomy or pulmonary clearance but he appears to be doing reasonably well currently. Wean oxygen as tolerated. 4. Borderline lactic acidosis: The patient had a lactate of 1.9. Admission H&P notes and initial lactate of 2.3 which may have been [id number] and is not available in the EMR. If this is the case, his lactic acid level is decreasing with therapy and additional follow-up is not required. Recommend increasing the patient's activity to out of bed to chair and ambulatory. We will see how he does regarding his pulse oximetry readings with ambulation and increased activity. Thanks for the opportunity of participating in the care of this patient. Feel free to contact us with questions or concerns. History of Present Illness Attending Physician: Nino Lai MD History of Present Illness Asked by hospitalist to evaluate this patient with a questionable pneumonia. History is obtained from review the electronic medical record as well as interview the patient. The patient is an 79-year-old male who is known to us from pulmonary outpatient clinic. He sees Dr. augustine and Dr. Cruz. He has a history of tracheotomy for laryngeal cancer. The patient is being evaluated by ENT for speaking valve and on 01/10 and underwent a Heller myotomy in [place]. He presented to the emergency room with increased sputum production as well as fevers and chills. In the ER he was evaluated with a chest x-ray which was read as potential interstitial prominence of the left lung base. He was febrile on presentation and started on broad-spectrum antibiotics. His procalcitonin was negative. Pulmonary was consulted for additional management. This morning the patient states that he feels quite well. He is not short of breath. He is not had fevers or chills. He would like to eat. He is not having any chest pain and does not endorse any difficulty breathing whatsoever. He states the previously noted increased sputum production has now resolved. He feels close to his baseline Allergies Allergy/AdvReac Type Severity Reaction Status Date / Time atorvastatin AdvReac Unknown stiffness Verified 01/13/20 16:30 Home Medications Home Medications Medication Instructions Recorded Confirmed Type aspirin [Aspirin Low Dose] 81 mg PO HS 03/25/18 01/13/20 History indomethacin 1 cap PO TID PRN MDD Gout 03/25/18 01/13/20 History levothyroxine 125 mcg PO QAM 03/25/18 01/13/20 History nitroglycerin 1 tab SUBLINGUAL UD PRN 03/25/18 01/13/20 History paroxetine HCl [Paxil] 20 mg PO HS 03/25/18 01/13/20 History clopidogrel 75 mg PO QAM 06/03/18 01/13/20 History ipratropium 0.5 mg-albuterol 3 mg 3 ml INH QID PRN 06/09/19 01/13/20 History (2.5 mg base)/3 mL nebulization soln albuterol sulfate 2.5 mg INHALATION QID PRN 08/19/19 01/13/20 History omeprazole 20 mg tablet,delayed 20 mg PO QAM 09/06/19 01/13/20 History release amlodipine 5 mg PO HS 09/17/19 01/13/20 History budesonide 0.5 mg INHALATION QAM 09/17/19 01/13/20 History atorvastatin [Lipitor] 40 mg PO HS 01/13/20 01/13/20 History chlorhexidine gluconate 15 ml BUCCAL BID 01/13/20 01/13/20 History doxycycline hyclate [Vibramycin] 100 mg PO BID PRN 01/13/20 01/13/20 History prednisone 40 mg PO DAILY PRN 01/13/20 01/13/20 History Patient History Medical History (Updated 01/14/20 @ 08:25 by Inder Lucia MD) Acute hypoxemic respiratory failure Anxiety Benign neoplasm of colon CAD (coronary artery disease) "1996 - CABG x 2" Cardiac pacemaker in situ 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 LAST CHECKED REMOTELY 05/31/18 Carotid artery stenosis with cerebral infarction over 8 weeks ago The patient presented to [facility] ED on 03/26/18 with expressive aphasia, left upper extremity numbness, left lower extremity weakness. Symptoms were resolving by the time the patient arrived in the ED. 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 Neck pain OCCASIONAL Obesity JAIME on CPAP no longer on CPAP post tracheostomy Peripheral eosinophilia Pharyngocutaneous fistula Sleep apnea CPAP Surgical History History of bronchoscopy History of carotid endarterectomy RIGHT (MARCH 2018) History of cataract extraction with lens replacement cataract extraction with IOL implant and LRI left eye - 05/02/12 History of colonoscopy with polypectomy History of coronary artery bypass graft X2 VESSEL 1995 -- [facility] History of rotator cuff surgery Right - 2009 History of tonsillectomy Hx of laryngectomy Family History Mother Essential hypertension Stroke Social History Smoking Status: Former smoker Tobacco Type: Cigarettes Cigarettes Per Day: 60; Second Hand Exposure: No; Hx Alcohol Use: Yes Alcohol type: beer, wine and hard liquor Hx Substance Use: No Preferred Language: Malay Communication Ability: non verbal Visual Impairment: No Limitations Commercial Internship Required: No Beliefs That Will Affect Care: None marital status: Current Living Situation: Spouse current occupational status: retired Other Information That Helps Us Care for You: No Feels Safe at Home: Yes Review of Systems Review of Systems: Please refer to admission H&P. I have no additions or deletions Physical Exam Constitutional: well developed and well nourished; no acute distress Eyes: PERRL, conjunctivae normal, anicteric sclerae ENMT: external ear and nose normal, oropharynx normal Neck: trachea midline, no thyromegaly Respiratory: normal respiratory effort Auscultation: lungs clear to auscultation bilaterally Cardiovascular: RRR, no murmur, no edema Palpation: + abnormal PMI Gastrointestinal (Abdomen): normal bowel sounds, soft, nontender, no hepatosplenomegaly Musculoskeletal: no cyanosis or clubbing, extremities motor strength 5/5 Gait: normal gait Skin: no rashes, warm and dry Neurologic: PERRL, EOMI, accommodation nl, no face palsy, no dysarthria Psychiatric: A+Ox3, euthymic affect Lymphatic: no cervical or axillary lymphadenopathy Results & Data Results & Data ([facility]) Vital Signs (Past 12 Hours) Vital Signs Temp Pulse Pulse Resp BP Pulse Ox 01/14/20 07:10 68 14 91 01/14/20 04:00 77 18 90 01/14/20 03:09 37.1 C 67 20 133/68 92 01/13/20 23:44 60 01/13/20 23:32 37.2 C 63 18 127/58 L 94 Laboratory Results 01/14/20 03:26 01/14/20 03:26 Procalcitonin negative Previous respiratory cultures show no growth to date in July 2019 and August 2019 Diagnostic Findings Chest x-ray from 01/13/2020 was independently reviewed and compared to prior films from earlier this year. His admission film does not appear acutely di fferent from his last film December 05, 2019. PG Care Time/CCT Total # of Minutes Spent Total Time Spent with Patient: Total time spent is greater than 50% in coordination of care (as documented) at patient's floor/unit and/or counseling patient: Coding Level of Care Code 98806 Initial Inpt Care Lvl 3 Diagnoses Fever R50.9 Fever type: unspecified Hypoxia R09.[address] Z93.0 Tracheobronchitis J40 Time Spent (min) 45
[2020-01-14] MEDS ORDERED: PANTOprazole 40 MG TAB PO SCH (09:00)
[2020-01-14] MEDS ORDERED: CLOPIDOGREL BISULFATE 75 MG TAB PO SCH (09:00)
[2020-01-14] MEDS: CHLORHEXIDINE GLUCONATE 0.12% 480 ML MT SCH (09:42)
--- NOTE | 2020-01-14 10:07 | Hospitalist Progress Note ---
Date of Service January 14, 2020 Assessment & Plan (1) Tracheobronchitis: This is an 79yo M with a PMH of head and neck cancer [place] [facility], COPD, CAD s/p CABG, SSS s/p PPM, PVD s/p surgery, HTN, HLD, history of CVA, JAIME on CPAP, hypothyroidism, CKD, chronic anemia Presents with increased in sputum production associated with fever Chest x-ray did not show any pneumonia and no change compared to prior chest x- ray Has tracheobronchitis, will aspiration could not be ruled out He has been eating and drinking normally Antibiotics has been de-escalated to Augmentin will continue for 7 days in total Appreciate pulmonary input and recommendation Has been ambulating and wants to go home White count has been normalized and no more fever no chills Blood cultures have been pending We will send him this afternoon if hemoglobin remains stable Anemia Hemoglobin noted to be 7.7 as of this morning No evidence of bleeding likely secondary to the illness We will repeat hemoglobin at around 4 PM and if stable will be discharged home this afternoon He is agreeable with this decision (2) Acute hypoxemic respiratory failure: Reported to be hypoxic prior to arrival Saturation is maintained more than 90% since admission (3) Pneumonia: Pneumonia has been ruled out No infiltration in chest x-ray no change compared with prior chest x-ray (4) Tracheostomy in place: -Recently underwent cricopharyngeal myotomy procedure by ENT in [place] on 01/10 as part of process to create a speaking valve -Nasopharyngeal COVID-19 PCR and Flu PCR negative. Discussed possibility of COVID testing tracheal aspirate with subcontract manager production tool engineer, Dr. Crouch, who does not feel it is necessary at this time -No acute symptoms (5) COPD (chronic obstructive pulmonary disease): Continue budesonide, Duonebs PRN No exacerbation (6) Elevated troponin: Troponin elevation of 0.122. Trop elevation noted in the past. H/o CAD s/p CABG in 1995. No acute changes on EKG today, no cardiac symptoms on exam. Monitor on telemetry Troponin has been decreasing (7) Laryngeal cancer: History of head and neck cancer status post laryngectomy and insertion of a tracheostomy (8) History of CVA (cerebrovascular accident): CVA in 2018 without residual deficits. Continue aspirin, plavix and statin (9) SSS (sick sinus syndrome): S/p pacemaker placement (10) Hypothyroidism: Continue levothyroxine (11) Anxiety: Continue SSRI DVT Ppx: SQ heparin Code status: FULL PCP: Giuliana Dispo: Admitted to PCU. Discharge planning ordered. Will recheck CBC at around 4 PM to make sure hemoglobin is stable before discharging home this afternoon Admission and Anticipated Discharge Date Admission Date: January 13, 2020 Subjective 01/14/2020 Patient was seen and examined in telemetry unit He was admitted yesterday with possible pneumonia with fever He does not have any more fever and/or chills as of this morning He denies any symptoms and wants to go home He has been eating normally and has been ambulating without any difficulties Review of Systems Review of Systems: All systems reviewed and are unremarkable except as noted below Ear, Nose, Mouth, Throat: Has tracheostomy tube in place Respiratory: no cough, no dyspnea and no wheezing Physical Exam Physical Exam: Lying in bed comfortably Constitutional: well developed and well nourished; no acute distress and not ill appearing Eyes: PERRL, conjunctivae normal, anicteric sclerae ENMT: external ear and nose normal, oropharynx normal Neck: Has tracheostomy tube in place Respiratory: normal respiratory effort; no respiratory distress Auscultation: lungs clear to auscultation bilaterally Cardiovascular: Rate/Rhythm: regular rate and regular rhythm Heart Sounds: no murmur Extremities: no edema Gastrointestinal (Abdomen): Inspection/Auscultation: abdomen normal to inspection; abdomen not distended Percussion/Palpation: abdomen soft; abdomen nontender Musculoskeletal: No acute arthritis involving any joints Neurologic: moves all extremities; no focal motor deficits Alert, awake and oriented x3 Psychiatric: A+Ox3, euthymic affect Lymphatic: no cervical or axillary lymphadenopathy Results & Data Results & Data ([facility]) Vital Signs (Past 12 Hours) Vital Signs Temp Pulse Pulse Resp BP Pulse Ox 01/14/20 08:32 37.4 C 67 20 159/64 H 92 01/14/20 07:10 68 14 91 01/14/20 04:00 77 18 90 01/14/20 03:09 37.1 C 67 20 133/68 92 01/13/20 23:44 60 01/13/20 23:32 37.2 C 63 18 127/58 L 94 Laboratory Results Short CBC 01/13/20 01/14/20 Range/Units 15:45 03:26 WBC 10.73 12.83 H (4.8-10.8) K/uL Hgb 9.2 L 7.7 L (14.0-18.0) g/dL Hct 31.0 L 26.1 L (42-52) % Plt Count 409 H 313 (130-400) K/uL BMP 01/13/20 01/14/20 15:45 03:26 Sodium 141 143 Potassium 3.9 3.8 Chloride 107 109 H Carbon Dioxide 27 28 BUN 17 18 Creatinine 1.39 1.26 Glucose 97 94 Calcium 8.9 8.0 L Cardiac Enzymes 01/13/20 01/13/20 01/14/20 Range/Units 15:45 21:37 03:26 Troponin I 0.122 H* 0.577 H* 0.446 H* (0-0.045) ng/ml Liver Function 01/13/20 Range/Units 15:45 Total Bilirubin 0.3 (0.2-1) mg/dl AST 23 (15-37) U/L ALT 25 (12-78) U/L Alkaline Phosphatase 91 (45-117) U/L Albumin 3.6 (3.4-5.0) gm/dl Medications Administered Current Inpatient Medications Albuterol (Albut/Ipratrop 3mg/0.5mg Neb 3 Ml Vial) 3 ml NEB QIDR PRN PRN Reason: Shortness Of Breath Or Wheezing Stop: 02/13/20 06:59 Amlodipine Besylate (Amlodipine Besylate 5 Mg Tab) 5 mg PO HS HUNG Stop: 02/12/20 20:59 Last Admin: 01/13/20 21:13 Dose: 5 mg Documented by: Amoxicillin/Clavulanate Potassium (Amoxicillin/Clavulanate 875 Mg Tab) 1 tab PO BIDM HUNG Stop: 01/21/20 16:59 Aspirin (Aspirin 81 Mg Ectab) 81 mg PO HS HUNG Stop: 02/12/20 20:59 Last Admin: 01/13/20 21:13 Dose: 81 mg Documented by: Atorvastatin Calcium (Atorvastatin 40 Mg Tab) 40 mg PO HS HUNG Stop: 02/12/20 20:59 Last Admin: 01/13/20 21:14 Dose: 40 mg Documented by: Budesonide (Budesonide 0.5 Mg/2 Ml Vial (Pulmicort)) 0.5 mg INH QDR [facility] Stop: 02/13/20 07:59 Last Admin: 01/14/20 07:10 Dose: 0.5 mg Documented by: Chlorhexidine Gluconate (Chlorhexidine Gluconate 0.12% 480 Ml) 15 ml MT BID [facility] Stop: 02/12/20 20:59 Last Admin: 01/14/20 09:42 Dose: 15 ml Documented by: Clopidogrel Bisulfate (Clopidogrel Bisulfate 75 Mg Tab) 75 mg PO QAM [facility] Stop: 02/13/20 08:59 Last Admin: 01/14/20 09:40 Dose: 75 mg Documented by: Heparin Sodium (Porcine) (Heparin Sod 5,000 Unit/0.5 Ml Vial) 5,000 units SQ Q8 [facility] Stop: 02/12/20 21:59 Last Admin: 01/14/20 05:25 Dose: 5,000 units Documented by: Acetaminophen (Ofirmev) 1,000 mg in 100 mls @ 400 mls/hr IV Q8H PRN PRN Reason: Pain or Fever Stop: 01/16/20 19:31 Indomethacin (Indomethacin 25 Mg Cap) 25 mg PO TID PRN PRN Reason: Pain Stop: 02/12/20 19:47 Levothyroxine Sodium (Levothyroxine Sodium 125 Mcg Tablet) 125 mcg PO DAILYBB [facility] Stop: 02/13/20 06:29 Last Admin: 01/14/20 05:25 Dose: 125 mcg Documented by: Nitroglycerin (Nitroglycerin Sl 0.4 Mg/Tab Tab) 0.4 mg SL UD PRN PRN Reason: Chest Pain Stop: 02/12/20 19:47 Pantoprazole Sodium (Pantoprazole 40 Mg Tab) 40 mg PO QAM [facility] Stop: 02/13/20 08:59 Last Admin: 01/14/20 09:40 Dose: 40 mg Documented by: Paroxetine HCl (Paroxetine Hcl 20 Mg Tab) 20 mg PO HS [facility] Stop: 02/12/20 20:59 Last Admin: 01/13/20 21:13 Dose: 20 mg Documented by: (1) Hypothyroidism Hypothyroidism type: acquired Qualified Code(s): E03.9 - Hypothyroidism, unspecified
[2020-01-14 16:17] LABS: Basophils # (auto) 0.03 K/uL (0-0.2); Basophils % (auto) 0.2 %; Eosinophils # (auto) 0.67 K/uL (0-0.5); Eosinophils % (auto) 5.5 %; Hemoglobin 8.6 g/dL (14.0-18.0); Immature Granulocytes # (auto) 0.01 K/uL (0.00-0.02); Immature Granulocytes % (auto) 0.1 %; Lymphocytes # (auto) 1.31 K/uL (1.2-3.4); Lymphocytes % (auto) 10.8 %; Mean Corpuscular Hemoglobin 24.9 pg (25-34); Mean Corpuscular Hgb Conc 30.7 g/dL (32-36); Mean Corpuscular Volume 80.9 fL (80-100); Mean Platelet Volume 9.1 fL (7.4-10.4); Monocytes # (auto) 0.92 K/uL (0.11-0.59); Monocytes % (auto) 7.6 %; Neutrophils # (auto) 9.23 K/uL (1.4-6.5); Neutrophils % (auto) 75.8 %; Platelet Count 353 K/uL (130-400); RDW Coefficient of Variation 16.7 % (11.5-14.5); RDW Standard Deviation 49.5 fL (36.4-46.3); Red Blood Count 3.46 M/uL (4.7-6.1); White Blood Count 12.17 K/uL (4.8-10.8)
--- NOTE | 2020-01-14 16:46 | Electrocardiogram Report ---
Test Reason : Blood Pressure : / mmHG Vent. Rate : 079 BPM Atrial Rate : 079 BPM P-R Int : 168 ms QRS Dur : 092 ms QT Int : 384 ms P-R-T Axes : 062 076 083 degrees QTc Int : 440 ms Normal sinus rhythm Nonspecific ST abnormality Abnormal ECG When compared with ECG of 05-DEC-2019 10:24, Sinus rhythm has replaced Electronic atrial pacemaker Nonspecific T wave abnormality no longer evident in Inferior leads Confirmed by Reginaldo Melgar ([id number]) on 01/14/2020 4:45:53 PM Referred By: REFERRED SELF Confirmed By:Dov Melgar
--- NOTE | 2020-01-14 16:57 | Electrocardiogram Report ---
Test Reason : Blood Pressure : / mmHG Vent. Rate : 066 BPM Atrial Rate : 066 BPM P-R Int : 174 ms QRS Dur : 094 ms QT Int : 460 ms P-R-T Axes : 057 070 096 degrees QTc Int : 482 ms Suspect unspecified pacemaker failure Sinus rhythm with Premature atrial complexes an demand atrial pacing Prolonged QT Abnormal ECG When compared with ECG of 13-JAN-2020 15:18, (unconfirmed) Premature atrial complexes are now Present Confirmed by Reginaldo Melgar ([id number]) on 01/14/2020 4:57:15 PM Referred By: REFERRED SELF Confirmed By:Dov Melgar
[2020-01-14] MEDS ORDERED: AMOXICILLIN/CLAVULANATE 875 MG TAB PO SCH (17:00)
--- NOTE | 2020-01-15 08:32 | Discharge Summary ---
Date of Service January 15, 2020 Admission HPI Per Admitting Provider This is an 79yo M with a PMH of head and neck cancer s/p laryngectomy in 2019 at [facility] for recurrent laryngeal cancer, COPD, CAD s/p CABG, SSS s/p PPM, PVD s/p surgery, HTN, HLD, history of CVA, hypothyroidism, CKD, chronic anemia who presents with increased in sputum production associated with fever. Recently underwent cricopharyngeal myotomy procedure by ENT in [place] on 01/10 as part of process to create a speaking valve. Had an episode of emesis a few nights ago but denies aspiration. Has been having increased sputum production from trach that is yellowish in color. Denies presence of blood in sputum. Also endorsing fever and chills. Denies headache, lightheadedness, visual changes, chest pain, palpitations, abdominal pain, dysuria, constipation or diarrhea. Currently saturating at 94% on non-rebreather. Febrile at 39.2 C. No leukocytosis. Lactic acid mildly elevated at 2.3. Procalcitonin within normal range. Nasopharyngeal COVID-19 PCR and Flu PCR negative. CXR with left lung base opacities suggestive of atelectasis versus pneumonitis. Admission Exam Per Admitting Provider Gen-AAO x 3, NAD, Afebrile, Pleasant, Non-Toxic Head-NCAT, EOMI, PERRLA, Anicteric Sclera, No Posterior Pharyngeal Erythema Neck-Supple, No JVD, No Thyromegaly, No Masses, No LAD, No Bruits, +Trach, Suction drain in place Lungs-Clear to Auscultation Bilaterally, No Rales, No Rhonchi, No Wheezing, No Crepitus Chest-No S4, +S1, +S2, No S3, No Murmurs, No Rubs, No Gallops, No Ectopy Abdomen-Soft, Bowel Sounds Present, Non Tender, Non Distended, No Hepatomegaly, No Splenomegaly, No Palpable Masses, No Rebound, No Rigidity, No Guarding Musculoskeletal-Full Range of Motion Bilaterally, No CVAT Extremities-No Cyanosis, No Clubbing, No Edema Nuero-Cranial Nerves II-XII grossly intact, Motor WNL, DTRs WNL, Strength WNL, Non Focal Psych-Normal Mood Principal Diagnosis Acute tracheobronchitis, history of laryngeal cancer status post tracheostomy, COPD, CAD status post CABG 1995, JAIME on CPAP Discharge Exam Constitutional well developed and well nourished; no acute distress and not ill appearing Eyes PERRL, conjunctivae normal, anicteric sclerae ENMT external ear and nose normal, oropharynx normal Respiratory normal respiratory effort; no respiratory distress Auscultation: lungs clear to auscultation bilaterally Cardiovascular Rate/Rhythm: regular rate and regular rhythm Heart Sounds: no murmur Extremities: no edema Gastrointestinal (Abdomen) Inspection/Auscultation: abdomen normal to inspection; abdomen not distended Percussion/Palpation: abdomen soft; abdomen nontender Neurologic moves all extremities; no focal motor deficits Psychiatric A+Ox3, euthymic affect Lymphatic no cervical or axillary lymphadenopathy Discharge Data Allergies Allergy/AdvReac Type Severity Reaction Status Date / Time atorvastatin AdvReac Unknown stiffness Verified 01/13/20 16:30 Consultations 01/13/20 17:21 ED Decision to Admit Stat 01/13/20 19:13 Consult Case Management - Discharge Planning Routine 01/13/20 19:23 Consult Pulmonology Routine Hospital Course (1) Tracheobronchitis: This is an 79yo M with a PMH of head and neck cancer s/p laryngectomy in 2019 at [facility] for recurrent laryngeal cancer, COPD, CAD s/p CABG, SSS s/p PPM, PVD s/p surgery, HTN, HLD, history of CVA, JAIME on CPAP, hypothyroidism, CKD, chronic anemia Presents with increased in sputum production associated with fever Chest x-ray did not show any pneumonia and no change compared to prior chest x- ray Has tracheobronchitis, will aspiration could not be ruled out He has been eating and drinking normally Antibiotics has been de-escalated to Augmentin will continue for 7 days in total Appreciate pulmonary input and recommendation Has been ambulating and wants to go home White count has been normalized and no more fever no chills Blood cultures have been pending We will send him this afternoon if hemoglobin remains stable Anemia Hemoglobin noted to be 7.7 as of this morning No evidence of bleeding likely secondary to the illness We will repeat hemoglobin at around 4 PM and if stable will be discharged home this afternoon He is agreeable with this decision (2) Acute hypoxemic respiratory failure: Reported to be hypoxic prior to arrival Saturation is maintained more than 90% since admission (3) Pneumonia: Pneumonia has been ruled out No infiltration in chest x-ray no change compared with prior chest x-ray (4) Tracheostomy in place: -Recently underwent cricopharyngeal myotomy procedure by ENT in [place] on 01/10 as part of process to create a speaking valve -Nasopharyngeal COVID-19 PCR and Flu PCR negative. Discussed possibility of COVID testing tracheal aspirate with ergonomist ornamental iron worker, Dr. Crouch, who does not feel it is necessary at this time -No acute symptoms (5) COPD (chronic obstructive pulmonary disease): Continue budesonide, Duonebs PRN No exacerbation (6) Elevated troponin: Troponin elevation of 0.122. Trop elevation noted in the past. H/o CAD s/p CABG in 1995. No acute changes on EKG today, no cardiac symptoms on exam. Monitor on telemetry Troponin has been decreasing (7) Laryngeal cancer: History of head and neck cancer status post laryngectomy and insertion of a tracheostomy (8) History of CVA (cerebrovascular accident): CVA in 2018 without residual deficits. Continue aspirin, plavix and statin (9) SSS (sick sinus syndrome): S/p pacemaker placement (10) Hypothyroidism: Continue levothyroxine (11) Anxiety: Continue SSRI DVT Ppx: SQ heparin Code status: FULL PCP: Giuliana Dispo: Admitted to PCU. Discharge planning ordered. Will recheck CBC at around 4 PM to make sure hemoglobin is stable before discharging home this afternoon Total Time Total Time Spent Total Time Spent (In Minutes): 35 minutes Total Time Includes: Examination of the Patient, Discharge Planning, Medication Reconciliation and Communication With Other Providers Discharge Plan Discharge Items Patient Disposition: Home - Self-Care Reason For Visit: PNA Discharge Diagnosis: Acute tracheobronchitis, history of laryngeal cancer status post tracheostomy, COPD, CAD status post CABG 1995, JAIME on CPAP Condition on Discharge: Good Activity: Resume your previous activity Non-emergency contact: Primary Care Provider Call non-emergency contact if: you have any medication questions and your symptoms worsen Follow-up/Referrals: David Giordano, DO [Primary Care Provider] - (Your doctor's office will call with an appointment within 7 days) Diet: Heart Healthy Addtl Attending Provider Instructions: Please take precaution to avoid falls Finish the course of antibiotic Pending Studies at Discharge: No Stand-Alone Forms: My [facility], Smoking Cessation Medications and DC Order Prescriptions: New amoxicillin-pot clavulanate [Augmentin] 875-125 mg Tablet 1 tab PO BIDM 5 Days Qty: 10 RF: 0 Lactinex 1 million cell tablet,chewable 1 tab PO BID Qty: 30 RF: 0 Continued omeprazole 20 mg tablet,delayed release (DR/EC) 20 mg PO QAM RF: 0 ipratropium-albuterol 0.5 mg-3 mg(2.5 mg base)/3 mL solution for nebulization 3 ml INH QID PRN (Reason: Shortness Of Breath Or Wheezing) RF: 0 aspirin [Aspirin Low Dose] 81 mg Tablet,Delayed Release (Dr/Ec) 81 mg PO HS RF: 0 paroxetine HCl [Paxil] 20 mg tablet 20 mg PO HS RF: 0 levothyroxine 125 mcg tablet 125 mcg PO QAM RF: 0 indomethacin 25 mg capsule 1 cap PO TID MDD Gout PRN (Reason: Pain) RF: 0 nitroglycerin 0.4 mg tablet, sublingual 1 tab Sublingual UD PRN (Reason: Chest Pain) RF: 0 albuterol sulfate 2.5 mg /3 mL (0.083 %) Solution For Nebulization 2.5 mg INHALATION QID PRN (Reason: Shortness Of Breath Or Wheezing) RF: 0 clopidogrel 75 mg tablet 75 mg PO QAM RF: 0 amlodipine 5 mg tablet 5 mg PO HS RF: 0 budesonide 0.5 mg/2 mL Suspension For Nebulization 0.5 mg INHALATION QAM RF: 0 atorvastatin [Lipitor] 40 mg tablet 40 mg PO HS RF: 0 doxycycline hyclate [Vibramycin] 100 mg capsule 100 mg PO BID PRN (Reason: Tracheal bronchitis) RF: 0 prednisone 20 mg tablet 40 mg PO DAILY PRN (Reason: COPD) RF: 0 chlorhexidine gluconate 0.12 % Mouthwash 15 ml BUCCAL BID RF: 0 Discharge Orders: Discharge Order (Routine); Ordered 01/14/20 Ordered By: Nino Lai Admission Data Admit Date/Time: 01/13/20 17:41 Attending Provider: Nino Lai Admit Provider: Reji De León Primary Care Provider: David Giordano Other Providers: Reji De León ; Michael Garcia ; Marv Mckeon ; Sherlyn Vergara ; Joby Ha ; Hal Connell ; Avelino Vogel ; Inder Lucia ; Laura Crouch Other Interventions: Discharge Summary Assessment (RN) Last Done: 01/14/20 17:21
== END 2020-01-14 17:20 | disposition home or self-care (01) ==
LOC: ED 14:53 → CC 14:57 → INTOOBSV 17:41 → 2E 17:41 → SUATTDRO 17:41 → 2E 19:04

== ENCOUNTER 2021-09-13 12:50 | Inpatient (IN) ==
--- NOTE | 2021-09-13 13:41 | Emergency Department Note ---
Impression & Plan Multifocal pneumonia, Breathlessness, Fatigue, Tracheostomy in place ED Provider Note Provider: Camacho Johnson MD DATE OF SERVICE: 09/13/2021 CHIEF COMPLAINT: Weakness, shortness of breath HISTORY OF PRESENT ILLNESS: Patient is a 81-year-old gentleman past medical history of CVA, COPD CAD with pacemaker, laryngeal cancer status post laryngectomy presenting today reporting over the past approximately 3 months some increasing generalized weakness as well as some shortness of breath. No fe vers reported. No abdominal pain or nausea reported. Denies significant chest pain. Denies significant leg swelling. Patient has been following with outpatient [facility] clinic and had a negative chest x-ray today but sent here for further evaluation with possible CAT scan. Patient evidently is finishing last day of the week of Augmentin without improvement. He reports there is been some creamy secretions from his trach that are increased from baseline. Denies upper respiratory symptoms. Daughter at bedside reports that blood work over the past month or so has shown some slight decrease in his white blood cell count. REVIEW OF SYSTEMS: A total of 10 review of systems was obtained and negative except as stated above in the HPI. PAST MEDICAL HISTORY: As noted above MEDICATIONS: Reviewed home medications finishing last day of Augmentin today, on aspirin SOCIAL HISTORY: Resides at home with PHYSICAL EXAM: GENERAL: alert and oriented in no acute distress on stretcher Head: normocephalic and atraumatic EYES: No injection, discharge or icterus. NECK: Trachea midline. Bottom of the neck a tracheostomy site without significant purulence or erythema noted. ENT: Mucous membranes pink and moist. LUNGS: Airway patent. No retractions. Breath sounds clear with occasional scattered rhonchi. HEART: Regular rate and rhythm. No chest wall tenderness healed prior surgical scar left upper chest subcutaneous AICD noted ABDOMEN: Soft and non-tender, without guarding or rebound. SKIN: Acyanotic, warm, dry, without rashes EXTREMITIES: Without swelling, tenderness or deformity NEUROLOGICAL: No focal deficits. No aphasia. No facial droop or slurred speech. EKG: Atrially paced rhythm 73 bpm with occasional PVC. No acute ST segment elevation with nonspecific T wave change with a QTC of 431. CONTINUOUS CARDIAC MONITORING: was ordered and showed a heart rate of 60s-80s bpm in atrially paced rhythm with somewhat frequent PVCs. Patient's laboratory studies and imaging reviewed. Differential includes Infection, dehydration, metabolic abnormality, hypo/hyperglycemia, electrolyte disturbance, anemia, hypoxia, cardiac sources, intracerebral event, toxicologic, neurologic, as well as other pathologies. IMPRESSION/MEDICAL DECISION MAKING: Complex history of laryngeal cancer status post laryngectomy with presence of increased accretions was was generalized weakness. No fever reported. Not hypoxic here on room air. Tracheal aspirate was ordered for stain and culture. Patient indicates has had 4 negative COVID test recently. Finishing Augmentin 7 day course today. Repeat blood work today to compare to previous was ordered earlier blood cell count at the end of July at 13 and a week ago at 10. Lower suspicion this represents PE given his generalized complaints of weakness. Question of possible occult infectious source and agree that obtaining a CT of the chest is not unreasonable at this time. Patient with a white blood cell count of 14.2. Minimal anemia. No electrolyte abnormalities signs of renal dysfunction. High-sensitivity troponin within normal limits. Procalcitonin not significantly elevated. CT report with evidence of PE however is diffuse bronchial wall thickening is noted with multifocal tree-in-bud airspace opacities favoring an infectious process. Given the patient's symptoms and history as well as the trach feel this is likely infectious. Given that he is failed Augmentin as an outpatient with continued symptoms and white blood cell count today ordered broad vancomycin and Zosyn initially. Again a tracheal sputum culture was sent. Do not believe the patient is septic at this point. Discussed with the patient and daughter at bedside. Hospitalist will be contacted for further care here at the hospital. DIAGNOSIS: Short of breath, fatigue, multifocal pneumonia, tracheostomy DISPOSITION: Hospitalist will evaluate Patient was agreeable with this plan. Past Med/Surg History Medical History (Updated 09/13/21 @ 16:26 by Camacho Johnson M.D.) Acute hypoxemic respiratory failure Anxiety Benign neoplasm of colon CAD (coronary artery disease) "1995 - CABG x 2" Cardiac pacemaker in situ 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 LAST CHECKED REMOTELY 05/31/18 Carotid artery stenosis with cerebral infarction over 8 weeks ago The patient presented to [facility] ED on 03/26/18 with expressive aphasia, left upper extremity numbness, left lower extremity weakness. Symptoms were resolving by the time the patient arrived in the ED. 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 Neck pain OCCASIONAL Obesity JAIME on CPAP no longer on CPAP post tracheostomy Peripheral eosinophilia Pharyngocutaneous fistula Sleep apnea CPAP Surgical History History of bronchoscopy History of carotid endarterectomy RIGHT (MARCH 2018) History of cataract extraction with lens replacement cataract extraction with IOL implant and LRI left eye - 05/02/12 History of colonoscopy with polypectomy History of coronary artery bypass graft X2 VESSEL 1995 -- Himanshu LEIJA History of rotator cuff surgery Right - 2009 History of tonsillectomy Hx of laryngectomy Family History Mother Essential hypertension Stroke Social History Smoking Status: Former smoker Tobacco Type: Cigarettes Second Hand Exposure: No; Hx Alcohol Use: Yes Alcohol type: beer, wine and hard liquor Hx Substance Use: No Preferred Language: Malaysian Communication Ability: non verbal Visual Impairment: No Limitations Telehealth Nurse Educator Required: No Beliefs That Will Affect Care: None marital status: Current Living Situation: Spouse current occupational status: retired Feels Safe at Home: Yes Assistive Devices: Oxygen - Continuous Allergies Allergies Allergy/AdvReac Type Severity Reaction Status Date / Time No Known Allergies Allergy Unverified 11/07/20 10:05 Home Meds Home Medications Medication Instructions Recorded Confirmed aspirin 81 mg tablet,delayed 81 mg PO HS 03/25/18 11/07/20 release (Aspirin Low Dose) indomethacin 25 mg capsule 1 cap PO TID PRN MDD Gout 03/25/18 11/07/20 levothyroxine 125 mcg tablet 125 mcg PO QAM 03/25/18 11/07/20 nitroglycerin 0.4 mg sublingual 1 tab SUBLINGUAL UD PRN 03/25/18 11/07/20 tablet paroxetine HCl 20 mg tablet (Paxil) 20 mg PO HS 03/25/18 11/07/20 clopidogrel 75 mg tablet 75 mg PO QAM 06/03/18 11/07/20 ipratropium 0.5 mg-albuterol 3 mg 3 ml INH QID PRN 06/09/19 11/07/20 (2.5 mg base)/3 mL nebulization soln albuterol sulfate 2.5 mg INHALATION QID PRN 08/19/19 11/07/20 omeprazole 20 mg tablet,delayed 20 mg PO QAM PRN 09/06/19 11/07/20 release amlodipine 5 mg tablet 5 mg PO HS 09/17/19 11/07/20 atorvastatin 40 mg tablet (Lipitor) 40 mg PO HS 01/13/20 11/07/20 chlorhexidine gluconate 0.12 % 15 ml BUCCAL DAILY 01/13/20 11/07/20 mouthwash doxycycline hyclate 100 mg capsule 100 mg PO BID PRN 01/13/20 11/07/20 (Vibramycin) prednisone 20 mg tablet 40 mg PO DAILY PRN 01/13/20 11/07/20 glycopyrrolate 25 mcg/mL solution 25 mcg INHALATION BID PRN 11/02/20 11/07/20 for nebulization-nebulizer,accessor. (Lonhala Magnair Starter) polyethylene glycol 3350 17 gram 17 g PO DAILY PRN 11/02/20 11/07/20 oral powder packet (Miralax) Previous Rx's Medication Instructions Recorded Lactobacillus acidoph-L.bulgaricus 1 tab PO BID #30 tab 01/14/20 1 million cell chewable tablet (Lactinex) nebulizers (AeroEclipse II #1 ea 01/31/20 Nebulizer) Results & Data (ED) Vital Signs Vital Signs - 24 hr 09/13/21 12:51 09/13/21 15:19 09/13/21 15:27 Temperature 36 C L Temperature Source Temporal Artery Scan Pulse Rate 88 Pulse Rate [Left Radial] 60 Respiratory Rate 20 20 20 Respiratory Effort / Characteristics Non-Labored Non-Labored Respiratory Depth Normal Normal Respiratory Pattern Regular Blood Pressure 133/75 Blood Pressure [Left Arm] 139/69 Blood Pressure Mean 94 Blood Pressure Mean [Left Arm] 92 Pulse Oximetry 91 94 94 Oxygen Delivery Method Room Air Room Air Room Air Sepsis Recent Fever Within 48 Hours No Sepsis New/Unexplained Change in Mental Status No Sepsis Action Taken by Nursing No Action Required Laboratory Data Result diagrams: 09/13/21 13:05 09/13/21 13:05 Lab Results 09/13/21 09/13/21 09/13/21 Range/Units 13:05 13:05 13:05 WBC 14.28 H (4.8-10.8) K/uL RBC 4.49 L (4.7-6.1) M/uL Hgb 13.1 L (14.0-18.0) g/dL Hct 39.7 L (42-52) % MCV 88.4 (80-100) fL MCH 29.2 (25-34) pg MCHC 33.0 (32-36) g/dL RDW Std Deviation 42.6 (36.4-46.3) fL RDW Coeff of Sharda 13.3 (11.5-14.5) % Plt Count 467 H (130-400) K/uL MPV 9.1 (7.4-10.4) fL Immature Gran % (Auto) 0.3 % Neut % (Auto) 76.3 % Lymph % (Auto) 11.4 % [place] % (Auto) 7.6 % Eos % (Auto) 4.1 % Baso % (Auto) 0.3 % Neut # (Auto) 10.89 H (1.4-6.5) K/uL Lymph # (Auto) 1.63 (1.2-3.4) K/uL [place] # (Auto) 1.09 H (0.11-0.59) K/uL Eos # (Auto) 0.59 H (0-0.5) K/uL Baso # (Auto) 0.04 (0-0.2) K/uL Immature Gran # (Auto) 0.04 H (0.00-0.02) K/uL PT 12.1 H (9.0-12.0) Seconds INR 1.1 (0.9-1.1) APTT 35.9 H (21.0-31.0) Seconds PTT Ratio 1.3 Sodium 136 (136-145) mmol/L Potassium 4.4 (3.5-5.1) mmol/L Chloride 100 (98-107) mmol/L Carbon Dioxide 25 (21-32) mmol/L Anion Gap 11 (3-11) BUN 16 (6-23) mg/dl Creatinine 1.11 (0.6-1.4) mg/dl Est Cr Clr Drug Dosing 61.9 ml/min Est GFR ( Amer) 71.3 ml/min Est GFR (Non-Af Amer) 61.5 ml/min BUN/Creatinine Ratio 14.4 (10-20) Glucose 93 (70-99(Fasting)) mg/dl Calcium 9.1 (8.5-10.1) mg/dl Magnesium 2.0 (1.7-2.4) mg/dl Total Bilirubin 0.5 (0.2-1.0) mg/dl AST 43 H (13-39) U/L ALT 48 (7-52) U/L Alkaline Phosphatase 89 (34-104) U/L Troponin I High Sens 11.2 (0-20) pg/ml Total Protein 7.8 (6.0-8.3) gm/dl Albumin 3.7 (3.4-5.0) gm/dl Globulin 4.1 H (2.5-4.0) gm/dl Albumin/Globulin Ratio 0.9 (0.9-2) Procalcitonin (0-0.5) ng/ml TSH (0.300-4.500) uIu/ml Urine Color Urine Appearance (Clear) Urine pH (4.5-7.5) Ur Specific [place] (1.000-1.030) Urine Protein (Negative) Urine Glucose (UA) (Negative) Urine Ketones (Negative) Urine Blood (Negative) Urine Nitrite (Negative) Urine Bilirubin (Negative) Urine Urobilinogen (Negative) Ur Leukocyte Esterase (Negative) Urine WBC (Auto) (0-5) /hpf Urine RBC (Auto) (0-4) /hpf U Hyaline Cast (Auto) (0-5) /lpf U Epithel Cells (Auto) (0-5) /lpf Urine Bacteria (Auto) (Negative) Urine Crystals (None Prsent) 09/13/21 09/13/21 09/13/21 Range/Units 13:05 13:05 14:12 WBC (4.8-10.8) K/uL RBC (4.7-6.1) M/uL Hgb (14.0-18.0) g/dL Hct (42-52) % MCV (80-100) fL MCH (25-34) pg MCHC (32-36) g/dL RDW Std Deviation (36.4-46.3) fL RDW Coeff of Sharda (11.5-14.5) % Plt Count (130-400) K/uL MPV (7.4-10.4) fL Immature Gran % (Auto) % Neut % (Auto) % Lymph % (Auto) % [place] % (Auto) % Eos % (Auto) % Baso % (Auto) % Neut # (Auto) (1.4-6.5) K/uL Lymph # (Auto) (1.2-3.4) K/uL [place] # (Auto) (0.11-0.59) K/uL Eos # (Auto) (0-0.5) K/uL Baso # (Auto) (0-0.2) K/uL Immature Gran # (Auto) (0.00-0.02) K/uL PT (9.0-12.0) Seconds INR (0.9-1.1) APTT (21.0-31.0) Seconds PTT Ratio Sodium (136-145) mmol/L Potassium (3.5-5.1) mmol/L Chloride (98-107) mmol/L Carbon Dioxide (21-32) mmol/L Anion Gap (3-11) BUN (6-23) mg/dl Creatinine (0.6-1.4) mg/dl Est Cr Clr Drug Dosing ml/min Est GFR ( Amer) ml/min Est GFR (Non-Af Amer) ml/min BUN/Creatinine Ratio (10-20) Glucose (70-99(Fasting)) mg/dl Calcium (8.5-10.1) mg/dl Magnesium (1.7-2.4) mg/dl Total Bilirubin (0.2-1.0) mg/dl AST (13-39) U/L ALT (7-52) U/L Alkaline Phosphatase (34-104) U/L Troponin I High Sens (0-20) pg/ml Total Protein (6.0-8.3) gm/dl Albumin (3.4-5.0) gm/dl Globulin (2.5-4.0) gm/dl Albumin/Globulin Ratio (0.9-2) Procalcitonin 0.08 (0-0.5) ng/ml TSH 1.356 (0.300-4.500) uIu/ml Urine Color Dark Yellow Urine Appearance Clear (Clear) Urine pH 6.0 (4.5-7.5) Ur Specific [place] 1.024 (1.000-1.030) Urine Protein 1+ H (Negative) Urine Glucose (UA) Negative (Negative) Urine Ketones Trace H (Negative) Urine Blood Negative (Negative) Urine Nitrite Negative (Negative) Urine Bilirubin Negative (Negative) Urine Urobilinogen Negative (Negative) Ur Leukocyte Esterase Negative (Negative) Urine WBC (Auto) 1-5 (0-5) /hpf Urine RBC (Auto) 10-30 H (0-4) /hpf U Hyaline Cast (Auto) 10-30 H (0-5) /lpf U Epithel Cells (Auto) 20-30 H (0-5) /lpf Urine Bacteria (Auto) Negative (Negative) Urine Crystals Calcium Oxalate A (None Prsent) Administered Medications Discontinued Medications Piperacillin Sod/Tazobactam Sod (Zosyn) 4.5 gm in 120 mls @ 240 mls/hr IV NOW ONE Stop: 09/13/21 16:44 Last Admin: 09/13/21 16:44 Dose: 240 mls/hr Documented by: [id number] Ioversol (Optiray 320 125ml) 120 ml IV ONCE ONE Stop: 09/13/21 15:37 Last Admin: 09/13/21 15:39 Dose: 120 ml Documented by: [id number] Imaging Data Radiologist's Impression: Chest CTA 09/13/21 13:32 CT ANGIOGRAPHY OF THE CHEST, PULMONARY EMBOLUS PROTOCOL CLINICAL HISTORY: Shortness of breath, weak, tracheostomy secretions increased. COMPARISON STUDY: Chest CT December 05, 2019. Chest radiograph November 12, 2020. TECHNIQUE: Following IV administration of 120 mL of Optiray, helical axial images of the chest were obtained utilizing the pulmonary embolus protocol. Maximal intensity projections and sagittal and coronal reformats were viewed on an independent 3D workstation. IV contrast was administered without complication. Automated exposure control was utilized for the study. A dose lowering technique was utilized adhering to the principles of ALARA. CT DOSE: 622.81 mGycm FINDINGS: No pulmonary emboli are identified. There is no thoracic aortic dissection. Median sternotomy wires are noted as well as postoperative findings from bypass grafting. Size of the heart is normal. There is no pericardial effusion. There is moderate coronary artery calcification. Small hiatal hernia is present. Tracheostomy is noted. Diffuse bronchial wall thickening is present. Scattered secretions within the airways are present. Multifocal tree-in-bud nodules are noted throughout the lungs. Scattered small irregular nodular opacities are also likely infectious in etiology. An 8 mm subpleural nodule within the superior segment of the left lower lobe on image 211 of 206 has minimally increased in size since prior exam. This is probably benign. There is no pneumothorax or pleural effusion. There is no cavitation. Water attenuation lesions within the upper pole of the kidneys reflect cysts. 1.4 cm lesion within the upper pole of the right kidney measures above water attenuation. This is indeterminate. However, this is similar in size to CT of January 16, 2020. IMPRESSION: 1. No pulmonary emboli identified. 2. Moderate multifocal tree-in-bud and small nodular airspace opacities throughout the lungs. The findings favor an infectious process. Aspiration pneumonitis is also within the differential. 3. Diffuse bronchial wall thickening. 4. 8 mm subpleural nodule within the left lower lobe. Given relative stability, this is likely benign. 5. Small hiatal hernia. ACT 112: Negative or not required by law. Electronically signed by: Russ Herzog M.D. 09/13/2021 4:05 PM Discharge Plan Visit Data Chief Complaint: Shortness of Breath/Dyspnea Stated Complaint: CHEST PAIN ED Provider: Camacho Johnson Discharge Problem: Multifocal pneumonia, Breathlessness, Fatigue, Tracheostomy in place Patient Disposition: Being Evaluated by Hospitalist Forms Stand Alone Forms: My [facility] Prescriptions Prescriptions: No Action omeprazole 20 mg tablet,delayed release (DR/EC) 20 mg PO QAM PRN (Reason: Acid Reflux) RF: 0 ipratropium-albuterol 0.5 mg-3 mg(2.5 mg base)/3 mL solution for nebulization 3 ml INH QID PRN (Reason: Shortness Of Breath Or Wheezing) RF: 0 (DME) AeroEclipse II Nebulizer Misc See Rx Instructions .ROUTE .MEDSUPPLY Qty: 1 RF: 0 aspirin [Aspirin Low Dose] 81 mg Tablet,Delayed Release (Dr/Ec) 81 mg PO HS RF: 0 paroxetine HCl [Paxil] 20 mg tablet 20 mg PO HS RF: 0 levothyroxine 125 mcg tablet 125 mcg PO QAM RF: 0 indomethacin 25 mg capsule 1 cap PO TID MDD Gout PRN (Reason: Pain) RF: 0 nitroglycerin 0.4 mg tablet, sublingual 1 tab Sublingual UD PRN (Reason: Chest Pain) RF: 0 albuterol sulfate 2.5 mg /3 mL (0.083 %) Solution For Nebulization 2.5 mg INHALATION QID PRN (Reason: Shortness Of Breath Or Wheezing) RF: 0 clopidogrel 75 mg tablet 75 mg PO QAM RF: 0 amlodipine 5 mg tablet 5 mg PO HS RF: 0 atorvastatin [Lipitor] 40 mg tablet 40 mg PO HS RF: 0 doxycycline hyclate [Vibramycin] 100 mg capsule 100 mg PO BID PRN (Reason: Tracheal bronchitis) RF: 0 prednisone 20 mg tablet 40 mg PO DAILY PRN (Reason: COPD) RF: 0 chlorhexidine gluconate 0.12 % Mouthwash 15 ml BUCCAL DAILY RF: 0 Lactinex 1 million cell tablet,chewable 1 tab PO BID Qty: 30 RF: 0 polyethylene glycol 3350 [Miralax] 17 gram powder in packet 17 g PO DAILY PRN (Reason: Constipation) RF: 0 Lonhala Magnair Starter 25 mcg/mL solution for nebulization 25 mcg inhalation BID PRN (Reason: Broncitis) RF: 0 Referrals Referrals: David Giordano DO [Physician] - Discharge Problem: Fatigue Qualifiers: Fatigue type: unspecified Qualified Code(s): R53.83 - Other fatigue
[2021-09-13 13:46] LABS: Hematocrit (blood only) 39.7 % (42-52); Hemoglobin 13.1 g/dL (14.0-18.0); Mean Corpuscular Hemoglobin 29.2 pg (25-34); Mean Corpuscular Volume 88.4 fL (80-100); Mean Platelet Volume 9.1 fL (7.4-10.4); Platelet Count 467 K/uL (130-400); RDW Coefficient of Variation 13.3 % (11.5-14.5); RDW Standard Deviation 42.6 fL (36.4-46.3); Red Blood Count 4.49 M/uL (4.7-6.1); White Blood Count 14.28 K/uL (4.8-10.8)
[2021-09-13 14:02] LABS: Albumin Globulin Ratio 0.9 (0.9-2); Albumin Level 3.7 gm/dl (3.4-5.0); BUN Creatinine Ratio 14.4 (10-20); Bilirubin,Total 0.5 mg/dl (0.2-1.0); Calcium 9.1 mg/dl (8.5-10.1); Creatinine Clr Calc Pharmacy 61.9 ml/min; Est GFR (African American) 71.3 ml/min; Est GFR (Non-African American) 61.5 ml/min; Globulin 4.1 gm/dl (2.5-4.0); INR 1.1 (0.9-1.1); Partial Thromboplastin Ratio 1.3; Partial Thromboplastin Time 35.9 Seconds (21.0-31.0); Potassium 4.4 mmol/L (3.5-5.1); Prothrombin Time 12.1 Seconds (9.0-12.0); Total Protein 7.8 gm/dl (6.0-8.3)
[2021-09-13 14:06] LABS: Troponin I High Sensitivity 11.2 pg/ml (0-20)
[2021-09-13 14:12] LABS: Basophils # (auto) 0.04 K/uL (0-0.2); Basophils % (auto) 0.3 %; Eosinophils # (auto) 0.59 K/uL (0-0.5); Eosinophils % (auto) 4.1 %; Immature Granulocytes # (auto) 0.04 K/uL (0.00-0.02); Immature Granulocytes % (auto) 0.3 %; Lymphocytes # (auto) 1.63 K/uL (1.2-3.4); Lymphocytes % (auto) 11.4 %; Monocytes # (auto) 1.09 K/uL (0.11-0.59); Monocytes % (auto) 7.6 %; Neutrophils # (auto) 10.89 K/uL (1.4-6.5); Neutrophils % (auto) 76.3 %
[2021-09-13 15:20] LABS: Appearance Urine Clear (Clear); Bacteria Urine Automated Negative (Negative); Bilirubin Urine Negative (Negative); Blood Urine Negative (Negative); Color Urine Dark Yellow; Epithelial Cell Urine Auto 20-30 /lpf (0-5); Glucose Urine UA Negative (Negative); Ketones Urine Trace (Negative); Leukocyte Esterase Urine Negative (Negative); Nitrite Urine Negative (Negative); Protein Urine 1+ (Negative); Specific Gravity Urine 1.024 (1.000-1.030); Urobilinogen Urine Negative (Negative)
[2021-09-13] MEDS ORDERED: OPTIRAY 320 125ml IV ONE (15:36)
--- NOTE | 2021-09-13 16:07 | CT Scan Report ---
CT ANGIOGRAPHY OF THE CHEST, PULMONARY EMBOLUS PROTOCOL CLINICAL HISTORY: Shortness of breath, weak, tracheostomy secretions increased. COMPARISON STUDY: Chest CT December 05, 2019. Chest radiograph November 12, 2020. TECHNIQUE: Following IV administration of 120 mL of Optiray, helical axial images of the chest were o btained utilizing the pulmonary embolus protocol. Maximal intensity projections and sagittal and cor onal reformats were viewed on an independent 3D workstation. IV contrast was administered without co mplication. Automated exposure control was utilized for the study. A dose lowering technique was ut ilized adhering to the principles of ALARA. CT DOSE: 622.81 mGycm FINDINGS: No pulmonary emboli are identified. There is no thoracic aortic dissection. Median sternot beryl wires are noted as well as postoperative findings from bypass grafting. Size of the heart is norm al. There is no pericardial effusion. There is moderate coronary artery calcification. Small hiatal h ernia is present. Tracheostomy is noted. Diffuse bronchial wall thickening is present. Scattered secr etions within the airways are present. Multifocal tree-in-bud nodules are noted throughout the lungs. Scattered small irregular nodular opacities are also likely infectious in etiology. An 8 mm subpleur al nodule within the superior segment of the left lower lobe on image 211 of 206 has minimally increa sed in size since prior exam. This is probably benign. There is no pneumothorax or pleural effusion. There is no cavitation. Water attenuation lesions within the upper pole of the kidneys reflect cysts. 1.4 cm lesion within the upper pole of the right kidney measures above water attenuation. This is in determinate. However, this is similar in size to CT of January 16, 2020. IMPRESSION: 1. No pulmonary emboli identified. 2. Moderate multifocal tree-in-bud and small nodular airspace opacities throughout the lungs. The fin dings favor an infectious process. Aspiration pneumonitis is also within the differential. 3. Diffuse bronchial wall thickening. 4. 8 mm subpleural nodule within the left lower lobe. Given relative stability, this is likely benign . 5. Small hiatal hernia. ACT 112: Negative or not required by law. Electronically signed by: Russ Herzog M.D. 09/13/2021 4:05 PM
[2021-09-13] MEDS ORDERED: PIPERACILL/TAZOBAC CONSULT ACTIVE PRN (16:15)
[2021-09-13] MEDS ORDERED: PIPERACILLIN/TAZOBACTAM 4.5 GM/120 ML BAG IV ONE (16:15)
[2021-09-13] MEDS ORDERED: VANCOMYCIN CONSULT ACTIVE PRN (16:15)
[2021-09-13] MEDS ORDERED: VANCOMYCIN HCL 2,000 MG in SODIUM CHLORIDE 0.9% 500 ML IV ONE (16:15)
--- NOTE | 2021-09-13 17:16 | History & Physical Report ---
Date of Service September 13, 2021 Assessment & Plan (1) Multifocal pneumonia: (2) Tracheostomy in place: (3) COPD (chronic obstructive pulmonary disease): Plan: - Admit to med surg with tele - Follow tracheal sputum culture, blood cultures, UA appears clear, follow urine culture if indicated - CT chest shows NO PE, Moderate multifocal tree-in-bud and small nodular airspace opacities throughout the lungs. The findings favor an infectious process. Aspiration pneumonitis is also within the differential. Diffuse bronchial wall thickening. 4. 8 mm subpleural nodule within the left lower lobe. Given relative stability, this is likely benign. Small hiatal hernia. - Will continue on IV abx with vanc and zosyn with recently finishing a course of Augmentin without symptomatic improvement - WBC elevated at 14.28 with left shift of 10.89, negative procalcitonin - Plt count elevated at 467, hgb 13.1 - Consult pulmonology - Check legionella urine, MRSA swab - COVID negative - Consult speech therapy to see for TEP ? fitting correctly as the pt notes it may be leaking. He has previously followed with [facility] Speech (4) Laryngeal cancer: Plan: - s/p tracheostomy in Mar 2019, as per HPI - hx of radiation, no chemotherapy - Follows with [facility] ENT for follow up (5) CAD (coronary artery disease): Plan: -s/p CABG x 2 in 1995 at [facility] - [place] [facility] [place] - Pt is currently on plavix and eliquis - appears Eliquis is onboard s/p CEA with CVA since Apr 2020 - pt is unsure of the reason why he is on eliquis. - No current issues with bleeding - In February 2018 patient diagnosed with TIA. Found to have B/L carotid stenosis, worse than prior studies. He underwent right CEA in February 2018 and left CEA in May 2018. - Last ECHO was in Mar 2021: The LV wall thickness is mildly increased (concentric). The left ventricular wall motion is normal. The qualitative LV ejection fraction is 55-59% (normal). The left ventricular diastolic function is moderately abnormal (grade II). The aortic valve is moderately calcified. Mild to moderate aortic stenosis is present. There is no significant aortic regurgitation. Mild mitral regurgitation is present. Compared to the report of the prior study dated 03/20/2020, the severity of the aortic valve stenosis has progressed to a subtle degree. Grade 2 diastolic dysfunction noted. (6) Cardiac pacemaker in situ: Plan: - May 2017 patient diagnosed with SSS and underwent dual chamber pacemaker implantation. - Recently eval by Dr. 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 Other past medical hx includes COPD, CAD s/p CABG, SSS s/p PPM, PVD s/p surgery, HTN, HLD, history of CVA, hypothyroidism, CKD, chronic anemia who presents with increased in sputum production associated with generalized ill feeling over past few months. He has previously followed with [facility] for trachea. Pt had his daughter provide the history. He has increased shortness of breath with minimal ADLs, and when walking finds that he is needing to sit down and catch his breath more often, he is coughing with green mucous expectorant through the tracheostomy, and his uses suction out of the trache about 10 times daily due to increased secretions. Pt also has been having issues with sleeping and never feels rested. Decreased appetite in the past week. He has had watery diarrhea x 3 days. Pt has recently completed a course of Augmentin x 7 days for issues with increased shortness of breath, increased secretions from the trache, and finished this course today. He was not on a prednisone rescue pack during this time. Pt has been using nebulizer, chlorahexidine rinses orally, and saline nebs routinely in the past few days. He only took his amlodipine and levothyroxine this morning. Allergies Allergy/AdvReac Type Severity Reaction Status Date / Time rosuvastatin [From Crestor] Allergy Unknown Unknown Verified 09/13/21 18:03 Home Medications Medication Instructions Recorded Confirmed Type indomethacin 25 mg capsule 1 cap PO TID PRN MDD Gout 03/25/18 09/13/21 History levothyroxine 125 mcg tablet 125 mcg PO QAM 03/25/18 09/13/21 History nitroglycerin 0.4 mg sublingual 1 tab SUBLINGUAL UD PRN 03/25/18 09/13/21 History tablet paroxetine HCl 20 mg tablet (Paxil) 20 mg PO HS 03/25/18 09/13/21 History clopidogrel 75 mg tablet 75 mg PO QAM 06/03/18 09/13/21 History ipratropium 0.5 mg-albuterol 3 mg 3 ml INH QID PRN 06/09/19 09/13/21 History (2.5 mg base)/3 mL nebulization soln albuterol sulfate 2.5 mg INHALATION QID PRN 08/19/19 09/13/21 History omeprazole 20 mg tablet,delayed 20 mg PO QAM 09/06/19 09/13/21 History release amlodipine 5 mg tablet 5 mg PO HS 09/17/19 09/13/21 History atorvastatin 40 mg tablet (Lipitor) 40 mg PO HS 01/13/20 09/13/21 History glycopyrrolate 25 mcg/mL solution 25 mcg INHALATION BID 11/02/20 09/13/21 History for nebulization-nebulizer,accessor. (Bhaskar Brewster Starter) polyethylene glycol 3350 17 gram 17 g PO DAILY PRN 11/02/20 09/13/21 History oral powder packet (Miralax) acetaminophen 500 mg tablet 1,000 mg PO QID PRN 09/13/21 09/13/21 History (Tylenol Extra Strength) amoxicillin 875 mg-potassium 1 tab PO AMHS 09/13/21 09/13/21 History clavulanate 125 mg tablet apixaban 5 mg tablet (Eliquis) 5 mg PO BID 09/13/21 09/13/21 History bacitracin 500 unit/gram topical 1 applic TOPICAL DIRECTED 09/13/21 09/13/21 History ointment budesonide 0.5 mg/2 mL suspension 0.5 mg INHALATION DAILY 09/13/21 09/13/21 History for nebulization (Pulmicort) fluorouracil 5 % topical cream 1 applic TOPICAL DIRECTED 09/13/21 09/13/21 History hydroxyzine HCl 25 mg tablet 50 mg PO HS 09/13/21 09/13/21 History metoprolol succinate 25 mg 25 mg PO DAILY 09/13/21 09/13/21 History tablet,extended release 24 hr sodium chloride 0.9 % for 0 ml INHALATION DIRECTED 09/13/21 09/13/21 History nebulization Past Med/Surg History Medical History (Updated 09/13/21 @ 16:26 by Camacho Johnson M.D.) Acute hypoxemic respiratory failure Anxiety Benign neoplasm of colon CAD (coronary artery disease) "1995 - CABG x 2" Cardiac pacemaker in situ 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 LAST CHECKED REMOTELY 05/31/18 Carotid artery stenosis with cerebral infarction over 8 weeks ago The patient presented to [facility] ED on 03/26/18 with expressive aphasia, left upper extremity numbness, left lower extremity weakness. Symptoms were resolving by the time the patient arrived in the ED. 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 Neck pain OCCASIONAL Obesity JAIME on CPAP no longer on CPAP post tracheostomy Peripheral eosinophilia Pharyngocutaneous fistula Sleep apnea CPAP Surgical History History of bronchoscopy History of carotid endarterectomy RIGHT (MARCH 2018) History of cataract extraction with lens replacement cataract extraction with IOL implant and LRI left eye - 05/02/12 History of colonoscopy with polypectomy History of coronary artery bypass graft X2 VESSEL 1995 -- [facility] History of rotator cuff surgery Right - 2009 History of tonsillectomy Hx of laryngectomy Family History (Updated 09/13/21 @ 17:35 by MINNA Aguirre-C) Mother Essential hypertension Stroke Sister Cancer Breast cancer Daughter Cancer Colon cancer Social History Smoking Status: Former smoker Tobacco Type: Cigarettes Second Hand Exposure: No; Hx Alcohol Use: Yes Alcohol type: beer, wine and hard liquor Hx Substance Use: No Preferred Language: Korean Communication Ability: non verbal Visual Impairment: No Limitations Hydrogeologist Required: No Beliefs That Will Affect Care: None marital status: Current Living Situation: Spouse current occupational status: retired Feels Safe at Home: Yes Assistive Devices: Oxygen - Continuous Review of Systems Review of Systems: Constitutional: No fever, sweats or chills Eyes: No diplopia, no worsening or blurred vision ENT: normal hearing, no trouble swallowing Respiratory: As per HPI, + cough, + sputum,+ dyspnea on exertion Cardiovascular: No chest pain, tightness or palpitations Abdomen: No pain, nausea, vomiting, + 3 days of diarrhea, no constipation Musculoskeletal: No joint pain, calf pain, swelling Neurologic: No weakness, numbness/tingling, or balance problems Psychiatric: No anxiety or depression Skin: No rash or itch Physical Exam Physical Exam: General: awake, alert, no apparent distress Head: Normocephalic, atraumatic ENT: PERRL, EOMI, no pharyngeal exudate, mucous membranes moist, + trache in place, no speaking valve so difficulty with speech Chest: Clear to auscultation, on room air, no adventitious breath sounds Cardiac: Regular rate and rhythm, no murmur, no JVD, normal peripheral pulses, good capillary refill Abdominal: NABS x 4 quadrants, soft, nondistended, nontender to palpation, no rebound or guarding Extremities: Normal inspection, no peripheral edema or erythema, calfs nontender to palpation Psych: Normal mood and affect Neuro: AAO x 3, strength intact bilaterally and rated 5/5, no motor deficits, speech is clear, no peripheral sensory deficits Results & Data Results & Data ([facility]) Vital Signs (Past 12 Hours) Vital Signs Temp Pulse Pulse Resp BP BP Pulse Ox 09/13/21 15:27 20 94 09/13/21 15:19 60 20 139/69 94 09/13/21 12:51 36 C L 88 20 133/75 91 Laboratory Results 09/13/21 15:27 Gram Stain - Pending Sputum,Trach Sputum Culture - Pending 09/13/21 09/13/21 09/13/21 16:37 14:12 13:05 WBC RBC Hgb Hct MCV MCH MCHC RDW Std Deviation RDW Coeff of Sharda Plt Count MPV Immature Gran % (Auto) Neut % (Auto) Lymph % (Auto) Tift % (Auto) Eos % (Auto) Baso % (Auto) Neut # (Auto) Lymph # (Auto) Tift # (Auto) Eos # (Auto) Baso # (Auto) Immature Gran # (Auto) PT INR APTT PTT Ratio Sodium Potassium Chloride Carbon Dioxide Anion Gap BUN Creatinine Est Cr Clr Drug Dosing Est GFR ( Amer) Est GFR (Non-Af Amer) BUN/Creatinine Ratio Glucose Calcium Magnesium Total Bilirubin AST ALT Alkaline Phosphatase Troponin I High Sens Total Protein Albumin Globulin Albumin/Globulin Ratio Procalcitonin 0.08 TSH Urine Color Dark Yellow Urine Appearance Clear Urine pH 6.0 Ur Specific [place] 1.024 Urine Protein 1+ H Urine Glucose (UA) Negative Urine Ketones Trace H Urine Blood Negative Urine Nitrite Negative Urine Bilirubin Negative Urine Urobilinogen Negative Ur Leukocyte Esterase Negative Urine WBC (Auto) 1-5 Urine RBC (Auto) 10-30 H U Hyaline Cast (Auto) 10-30 H U Epithel Cells (Auto) 20-30 H Urine Bacteria (Auto) Negative Urine Crystals Calcium Oxalate A SARS-CoV-2, RNA, NAAT NEGATIVE 09/13/21 09/13/21 09/13/21 13:05 13:05 13:05 WBC RBC Hgb Hct MCV MCH MCHC RDW Std Deviation RDW Coeff of Sharda Plt Count MPV Immature Gran % (Auto) Neut % (Auto) Lymph % (Auto) Tift % (Auto) Eos % (Auto) Baso % (Auto) Neut # (Auto) Lymph # (Auto) Tift # (Auto) Eos # (Auto) Baso # (Auto) Immature Gran # (Auto) PT 12.1 H INR 1.1 APTT 35.9 H PTT Ratio 1.3 Sodium 136 Potassium 4.4 Chloride 100 Carbon Dioxide 25 Anion Gap 11 BUN 16 Creatinine 1.11 Est Cr Clr Drug Dosing 61.9 Est GFR ( Amer) 71.3 Est GFR (Non-Af Amer) 61.5 BUN/Creatinine Ratio 14.4 Glucose 93 Calcium 9.1 Magnesium 2.0 Total Bilirubin 0.5 AST 43 H ALT 48 Alkaline Phosphatase 89 Troponin I High Sens 11.2 Total Protein 7.8 Albumin 3.7 Globulin 4.1 H Albumin/Globulin Ratio 0.9 Procalcitonin TSH 1.356 Urine Color Urine Appearance Urine pH Ur Specific [place] Urine Protein Urine Glucose (UA) Urine Ketones Urine Blood Urine Nitrite Urine Bilirubin Urine Urobilinogen Ur Leukocyte Esterase Urine WBC (Auto) Urine RBC (Auto) U Hyaline Cast (Auto) U Epithel Cells (Auto) Urine Bacteria (Auto) Urine Crystals SARS-CoV-2, RNA, NAAT 09/13/21 13:05 WBC 14.28 H RBC 4.49 L Hgb 13.1 L Hct 39.7 L MCV 88.4 MCH 29.2 MCHC 33.0 RDW Std Deviation 42.6 RDW Coeff of Sharda 13.3 Plt Count 467 H MPV 9.1 Immature Gran % (Auto) 0.3 Neut % (Auto) 76.3 Lymph % (Auto) 11.4 Tift % (Auto) 7.6 Eos % (Auto) 4.1 Baso % (Auto) 0.3 Neut # (Auto) 10.89 H Lymph # (Auto) 1.63 Tift # (Auto) 1.09 H Eos # (Auto) 0.59 H Baso # (Auto) 0.04 Immature Gran # (Auto) 0.04 H PT INR APTT PTT Ratio Sodium Potassium Chloride Carbon Dioxide Anion Gap BUN Creatinine Est Cr Clr Drug Dosing Est GFR ( Amer) Est GFR (Non-Af Amer) BUN/Creatinine Ratio Glucose Calcium Magnesium Total Bilirubin AST ALT Alkaline Phosphatase Troponin I High Sens Total Protein Albumin Globulin Albumin/Globulin Ratio Procalcitonin TSH Urine Color Urine Appearance Urine pH Ur Specific [place] Urine Protein Urine Glucose (UA) Urine Ketones Urine Blood Urine Nitrite Urine Bilirubin Urine Urobilinogen Ur Leukocyte Esterase Urine WBC (Auto) Urine RBC (Auto) U Hyaline Cast (Auto) U Epithel Cells (Auto) Urine Bacteria (Auto) Urine Crystals SARS-CoV-2, RNA, NAAT Diagnostic Findings Chest CTA 09/13/21 13:32 CT ANGIOGRAPHY OF THE CHEST, PULMONARY EMBOLUS PROTOCOL CLINICAL HISTORY: Shortness of breath, weak, tracheostomy secretions increased. COMPARISON STUDY: Chest CT December 05, 2019. Chest radiograph November 12, 2020. TECHNIQUE: Following IV administration of 120 mL of Optiray, helical axial images of the chest were obtained utilizing the pulmonary embolus protocol. Maximal intensity projections and sagittal and coronal reformats were viewed on an independent 3D workstation. IV contrast was administered without complication. Automated exposure control was utilized for the study. A dose lowering technique was utilized adhering to the principles of ALARA. CT DOSE: 622.81 mGycm FINDINGS: No pulmonary emboli are identified. There is no thoracic aortic dissection. Median sternotomy wires are noted as well as postoperative findings from bypass grafting. Size of the heart is normal. There is no pericardial effusion. There is moderate coronary artery calcification. Small hiatal hernia is present. Tracheostomy is noted. Diffuse bronchial wall thickening is present. Scattered secretions within the airways are present. Multifocal tree-in-bud nodules are noted throughout the lungs. Scattered small irregular nodular opacities are also likely infectious in etiology. An 8 mm subpleural nodule within the superior segment of the left lower lobe on image 211 of 206 has minimally increased in size since prior exam. This is probably benign. There is no pneumothorax or pleural effusion. There is no cavitation. Water attenuation lesions within the upper pole of the kidneys reflect cysts. 1.4 cm lesion within the upper pole of the right kidney measures above water attenuation. This is indeterminate. However, this is similar in size to CT of January 16, 2020. IMPRESSION: 1. No pulmonary emboli identified. 2. Moderate multifocal tree-in-bud and small nodular airspace opacities throughout the lungs. The findings favor an infectious process. Aspiration pneumonitis is also within the differential. 3. Diffuse bronchial wall thickening. 4. 8 mm subpleural nodule within the left lower lobe. Given relative stability, this is likely benign. 5. Small hiatal hernia. ACT 112: Negative or not required by law. Electronically signed by: Russ Herzog M.D. 09/13/2021 4:05 PM Code Status & VTE Plan Code Status Full code- discussed with the patient at bedside Supervising Physician Co-Signing Physician Notes Date of Service: September 13, 2021 History and physical exam performed by me. History notable for 81-year-old man with history of remote smoking, 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/right neck diss ection/right subtotal thyroidectomy status post radiation therapy and right pectoral flap and thigh graft, COPD, CAD status post CABG, sick sinus syndrome status post pacemaker placement, CVA, hypertension, chronic anemia and other medical problems who presents with worsening sputum production, weakness, shortness of breath over the past few months. -Treated by PCP with antibiotics without any improvement. Reports increased secretion from tracheostomy, greenish in color. Physical exam notable for tracheostomyin situ, transmitted sounds, expiratory wheeze Labs notable for WBC of 14,000, hemoglobin of 13.[address] angiogram did not show any PE but showed moderate multifocal tree-in-bud and small nodular airspace opacities throughout the lungs, diffuse bronchial wall thickening, 8 mm subpleural nodule within left lower lobe. Shortness of breath and tracheostomy secretions/drainage Pneumonia on CT chest Continue vanc and zosyn for now given patient had recently completed outpatient treatment for pneumonia Will appreciate Pulm evaluation Daughter to bring patient's own suctioning device Patient requests CLINICAL COORDINATOR consult to assess TEP device Continue home medications Agree with plans as detailed by Marsha Zaman PA-C (1) CAD (coronary artery disease) Associated angina: without angina Coronary Disease-Associated Artery/Lesion type: unspecified vessel or lesion type [place] vs. transplanted heart: [place] heart Qualified Code(s): I25.10 - Atherosclerotic heart disease of [place] coronary artery without angina pectoris (2) Hypothyroidism Hypothyroidism type: acquired Qualified Code(s): E03.9 - Hypothyroidism, unspecified (3) HTN (hypertension) Hypertension type: essential hypertension Qualified Code(s): I10 - Essential (primary) hypertension
--- NOTE | 2021-09-13 18:15 | Electrocardiogram Report ---
Test Reason : Blood Pressure : / mmHG Vent. Rate : 073 BPM Atrial Rate : 073 BPM P-R Int : 196 ms QRS Dur : 094 ms QT Int : 392 ms P-R-T Axes : 104 083 -34 degrees QTc Int : 431 ms Atrial-paced rhythm with frequent PVCs Abnormal ECG When compared with ECG of 14-JAN-2020 11:31, Electronic ventricular pacemaker has replaced Sinus rhythm Confirmed by Reginaldo Melgar ([id number]) on 09/13/2021 6:15:01 PM Referred By: REFERRED SELF Confirmed By:Dov Melgar
--- NOTE | 2021-09-13 18:21 | Communication Note ---
Date of Service: September 13, 2021 History and physical exam performed by me. History notable for 81-year-old man with history of remote smoking, 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/right neck dissection/right subtotal thyroidectomy status post radiation therapy and right pectoral flap and thigh graft, COPD, CAD status post CABG, sick sinus syndrome status post pacemaker placement, CVA, hypertension, chronic anemia and other medical problems who presents with worsening sputum production, weakness, shortness of breath over the past few months. -Treated by PCP with antibiotics without any improvement. Reports increased secretion from tracheostomy, greenish in color. Physical exam notable for tracheostomyin situ, transmitted sounds, expiratory wheeze Labs notable for WBC of 14,000, hemoglobin of 13.[address] angiogram did not show any PE but showed moderate multifocal tree-in-bud and small nodular airspace opacities throughout the lungs, diffuse bronchial wall thickening, 8 mm subpleural nodule within left lower lobe. Shortness of breath and tracheostomy secretions/drainage Pneumonia on CT chest Continue vanc and zosyn for now given patient had recently completed outpatient treatment for pneumonia Will appreciate Pulm evaluation Daughter to bring patient's own suctioning device Patient requests DIRECTOR RETIREMENT consult to assess TEP device Continue home medications Agree with plans as detailed by Marsha Zaman PA-C
[2021-09-13] MEDS ORDERED: ACETAMINOPHEN 500 MG TAB PO PRN (19:55)
[2021-09-13] MEDS ORDERED: POLYETHYLENE (MIRALAX) 17 GM PACK PO PRN (19:55)
[2021-09-13] MEDS ORDERED: SODIUM CHLORIDE 0.9% NEBU SOLN 3 ML NEB PRN (19:55)
[2021-09-13] MEDS ORDERED: NITROGLYCERIN SL 0.4 MG/TAB TAB SL PRN (19:55)
[2021-09-13] MEDS: MELATONIN 3 MG TAB PO PRN (21:43)
[2021-09-13] MEDS: APIXABAN 5 MG TABLET PO SCH (21:43)
[2021-09-13] MEDS: ATORVASTATIN 40 MG TAB PO SCH (21:44)
[2021-09-13] MEDS: BACITRACIN OINT 15 GM TUBE TOP SCH (21:44)
[2021-09-13] MEDS: hydrOXYzine HCl 25 MG TAB PO SCH (21:45)
[2021-09-13] MEDS: amLODIPine BESYLATE 5 MG TAB PO SCH (21:45)
[2021-09-13] MEDS: PARoxetine HCL 20 MG TAB PO SCH (21:45)
[2021-09-13] MEDS: PIPERACILLIN/TAZOBACTAM 3.375 GM in DEXTROSE 5% 100 ML IV SCH (21:54)
[2021-09-14] MEDS ORDERED: VANCOMYCIN HCL 1,500 MG in SODIUM CHLORIDE 0.9% 500 ML IV SCH (04:00)
[2021-09-14] MEDS: LEVOTHYROXINE SODIUM 125 MCG TABLET PO SCH (06:12)
[2021-09-14] MEDS: BUDESONIDE 0.5 MG/2 ML VIAL (PULMICORT) INH SCH (06:26)
[2021-09-14] MEDS: PIPERACILLIN/TAZOBACTAM 3.375 GM in DEXTROSE 5% 100 ML IV SCH ×3 (07:51→20:48)
[2021-09-14] MEDS: APIXABAN 5 MG TABLET PO SCH ×2 (07:52→20:46)
[2021-09-14] MEDS: PANTOprazole 40 MG TAB PO SCH (07:53)
[2021-09-14] MEDS: CLOPIDOGREL BISULFATE 75 MG TAB PO SCH (07:53)
[2021-09-14] MEDS: BACITRACIN OINT 15 GM TUBE TOP SCH ×3 (07:53→20:46)
[2021-09-14] MEDS: METOPROLOL SUCC 25MG EXT REL TAB PO SCH (07:53)
[2021-09-14 09:39] LABS: Creatinine Clr Calc Pharmacy 61.5 ml/min; Est GFR (African American) 70.5 ml/min; Est GFR (Non-African American) 60.8 ml/min
[2021-09-14] MEDS: ALBUTEROL 0.083% NEBU SOLN 3 ML VIAL INH PRN ×2 (10:47→19:55)
--- NOTE | 2021-09-14 14:15 | Hospitalist Progress Note ---
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 He follows with [facility] for tracheal care, last seen by Dr Bravo 4 weeks back for TEP adjustment. He recently completed OP augmentin for a week. Multifocal PNA- CTA chest with no PE but multifocal tree-in-bud and small nodular airspace opacities favoring pneumonia, aspiration pneumonitis possible. - WBC 14, procal negative, MRSA nare negative. - D/c vanc, continue zosyn. Mucinex, Chest physiotherapy - Follow sputum clx results, urinary legionella, - Given no improvement despite OP augmentin, pulm was consulted on admission. COPD- no wheezes, no exacerbation, no need for steroids. Continue inhalers Laryngeal cancer s/p tracheostomy in Mar 2019- hx of radiation, no chemotherapy - Follows with [facility]NT for follow up CAD s/p CABG x2 1995 [facility]- no issues currently. On plavix, toprol. Follow [place] [facility] [place] as outpatient - Pt is currently on plavix and eliquis - appears Eliquis is onboard s/p CEA with CVA since Apr 2020 - pt is unsure of the reason why he is on eliquis. No current issues with bleeding - In February 2018 patient diagnosed with TIA. Found to have B/L carotid stenosis, worse than prior studies. He underwent right CEA in February 2018 and left CEA in May 2018. HTN- on toprol, norvasc SSS s/p dual chamber pacemaker May 2017- Recently eval by Dr. Garcia 06/26/21 and battery reserve was normal, no issues today Hypothyroid- continue synthroid HTN- DVT ppx- eliquis Dispo- Pending clx results and symptomatic improvement Admission and Anticipated Discharge Date Admission Date: September 13, 2021 Subjective He feels better. No fever, chills, chest pain, shortness of breath. States his TEP was changed [address] Bravo at [facility], sizing is not a problem now- it only needs to be checked and would be happy to see anyone locally as it is too far to drive to [place]. Physical Exam Physical Exam: General: Sitting comfortably in bed, not in distress, on room air HEENT: EOMI, ROSEANNE, MMM, TEP in place Chest: Clear breath sounds bilaterally, no wheezes or crackles CVS: Regular rate and rhythm, normal heart sounds, no murmur Abdomen: Soft, non tender, not distended, normal bowel sounds Neuro: Awake, alert, oriented, conversing well, non focal Extremities: No cyanosis, clubbing or edema Results & Data Results & Data ([facility]) Vital Signs (Past 12 Hours) Vital Signs Temp Pulse Pulse Resp BP Pulse Ox 09/14/21 11:32 36.9 C 68 137/64 90 09/14/21 10:47 72 16 95 09/14/21 09:45 92 H 09/14/21 07:05 36.9 C 61 158/77 H 90 09/14/21 06:27 64 16 98 09/14/21 03:47 36.9 C 66 20 129/68 91 Laboratory Results [facility] 09/14/21 08:45 Creatinine 1.12 Urine 09/13/21 Range/Units 14:12 Urine Color Dark Yellow Urine Appearance Clear (Clear) Urine pH 6.0 (4.5-7.5) Ur Specific [place] 1.024 (1.000-1.030) Urine Protein 1+ H (Negative) Urine Glucose (UA) Negative (Negative) Medications Administered Current Inpatient Medications Acetaminophen (Acetaminophen 500 Mg Tab) 1,000 mg PO QID PRN PRN Reason: Fever Or Pain Stop: 10/13/21 19:54 Albuterol (Albuterol 0.083% Nebu Soln 3 Ml Vial) 2.5 mg INH QID PRN; Protocol PRN Reason: Shortness Of Breath Or Wheezing Stop: 10/13/21 19:54 Last Admin: 09/14/21 10:47 Dose: 2.5 mg Documented by: Albuterol (Albut/Ipratrop 3mg/0.5mg Neb 3 Ml Vial) 3 ml INH QID PRN; Protocol PRN Reason: Shortness Of Breath Or Wheezing Stop: 10/13/21 19:54 Amlodipine Besylate (Amlodipine Besylate 5 Mg Tab) 5 mg PO HS [facility] Stop: 10/13/21 20:59 Last Admin: 09/13/21 21:45 Dose: 5 mg Documented by: Apixaban (Apixaban 5 Mg Tablet) 5 mg PO BID [facility] Stop: 10/13/21 20:59 Last Admin: 09/14/21 07:52 Dose: 5 mg Documented by: Atorvastatin Calcium (Atorvastatin 40 Mg Tab) 40 mg PO HS [facility] Stop: 10/13/21 20:59 Last Admin: 09/13/21 21:44 Dose: 40 mg Documented by: Bacitracin (Bacitracin Oint 15 Gm Tube) 1 appln TOP TID [facility] Stop: 10/13/21 20:59 Last Admin: 09/14/21 13:42 Dose: Not Given Documented by: Budesonide (Budesonide 0.5 Mg/2 Ml Vial (Pulmicort)) 0.5 mg INH DAILY [facility] Stop: 10/14/21 08:59 Last Admin: 09/14/21 06:26 Dose: 0.5 mg Documented by: Clopidogrel Bisulfate (Clopidogrel Bisulfate 75 Mg Tab) 75 mg PO QAM [facility] Stop: 10/14/21 08:59 Last Admin: 09/14/21 07:53 Dose: 75 mg Documented by: Hydroxyzine HCl (Hydroxyzine Hcl 25 Mg Tab) 50 mg PO HS [facility] Stop: 10/13/21 20:59 Last Admin: 09/13/21 21:45 Dose: 50 mg Documented by: Piperacillin Sod/Tazobactam (Sod 3.375 gm/ Dextrose) 115 mls @ 28.75 mls/hr IV Q8H [facility]; Protocol Stop: 09/20/21 21:59 Last Admin: 09/14/21 13:42 Dose: 28.8 mls/hr Documented by: Levothyroxine Sodium (Levothyroxine Sodium 125 Mcg Tablet) 125 mcg PO DAILYBB [facility] Stop: 10/14/21 06:29 Last Admin: 09/14/21 06:12 Dose: 125 mcg Documented by: Melatonin (Melatonin 3 Mg Tab) 3 mg PO HS PRN PRN Reason: Sleep Stop: 10/13/21 21:01 Last Admin: 09/13/21 21:43 Dose: 3 mg Documented by: Metoprolol Succinate (Metoprolol Succ 25mg Ext Rel Tab) 25 mg PO DAILY [facility] Stop: 10/14/21 08:59 Last Admin: 09/14/21 07:53 Dose: 25 mg Documented by: Miscellaneous (Order Awaiting Action [Fluorouracil 5 % Cream]) 1 ea N/A QS [facility] Stop: 10/14/21 00:00 Last Admin: 09/14/21 07:51 Dose: Not Given Documented by: Miscellaneous (Order Awaiting Action [Gvxzjvqtsic-Wdnlqbeej-Sayogvrp [Lonhala Magnair Starter] 25 Mcg]) 1 ea N/A QS [facility] Stop: 10/14/21 00:00 Last Admin: 09/14/21 07:52 Dose: Not Given Documented by: Miscellaneous Information (Piperacill/Tazobac Consult Active) 1 ea N/A UD PRN PRN Reason: Consult Stop: 10/13/21 16:14 Nitroglycerin (Nitroglycerin Sl 0.4 Mg/Tab Tab) 0.4 mg SL UD PRN PRN Reason: Chest Pain Stop: 10/13/21 19:54 Pantoprazole Sodium (Pantoprazole 40 Mg Tab) 40 mg PO [facility]; Protocol Stop: 10/14/21 08:59 Last Admin: 09/14/21 07:53 Dose: 40 mg Documented by: Paroxetine HCl (Paroxetine Hcl 20 Mg Tab) 20 mg PO HS [facility] Stop: 10/13/21 20:59 Last Admin: 09/13/21 21:45 Dose: 20 mg Documented by: Polyethylene Glycol (Polyethylene (Miralax) 17 Gm Pack) 17 gm PO DAILY PRN PRN Reason: Constipation Stop: 10/13/21 19:54 Sodium Chloride (Sodium Chloride 0.9% Nebu Soln 3 Ml) 3 ml NEB . DIRECTED PRN PRN Reason: secretion management Stop: 10/13/21 19:54 (1) CAD (coronary artery disease) Associated angina: without angina Coronary Disease-Associated Artery/Lesion type: unspecified vessel or lesion type [place] vs. transplanted heart: [place] heart Qualified Code(s): I25.10 - Atherosclerotic heart disease of [place] coronary artery without angina pectoris (2) Hypothyroidism Hypothyroidism type: acquired Qualified Code(s): E03.9 - Hypothyroidism, unspecified (3) HTN (hypertension) Hypertension type: essential hypertension Qualified Code(s): I10 - Essential (primary) hypertension
[2021-09-14] MEDS: MELATONIN 3 MG TAB PO PRN (20:45)
[2021-09-14] MEDS: guaiFENesin 600 MG TABCR PO SCH (20:46)
[2021-09-14] MEDS: ATORVASTATIN 40 MG TAB PO SCH (20:46)
[2021-09-14] MEDS: amLODIPine BESYLATE 5 MG TAB PO SCH (20:47)
[2021-09-14] MEDS: hydrOXYzine HCl 25 MG TAB PO SCH (20:47)
[2021-09-14] MEDS: PARoxetine HCL 20 MG TAB PO SCH (20:47)
[2021-09-15] MEDS: PIPERACILLIN/TAZOBACTAM 3.375 GM in DEXTROSE 5% 100 ML IV SCH ×3 (06:04→20:48)
[2021-09-15] MEDS: LEVOTHYROXINE SODIUM 125 MCG TABLET PO SCH (06:04)
[2021-09-15] MEDS: ALBUTEROL 0.083% NEBU SOLN 3 ML VIAL INH PRN (06:18)
[2021-09-15] MEDS: BUDESONIDE 0.5 MG/2 ML VIAL (PULMICORT) INH SCH (06:18)
[2021-09-15] MEDS: BACITRACIN OINT 15 GM TUBE TOP SCH ×3 (08:25→20:45)
[2021-09-15] MEDS: METOPROLOL SUCC 25MG EXT REL TAB PO SCH (08:25)
[2021-09-15] MEDS: PANTOprazole 40 MG TAB PO SCH (08:25)
[2021-09-15] MEDS: CLOPIDOGREL BISULFATE 75 MG TAB PO SCH (08:25)
[2021-09-15] MEDS: guaiFENesin 600 MG TABCR PO SCH ×2 (08:25→20:46)
[2021-09-15] MEDS: APIXABAN 5 MG TABLET PO SCH ×2 (08:25→20:46)
[2021-09-15 08:49] LABS: Basophils # (auto) 0.04 K/uL (0-0.2); Basophils % (auto) 0.5 %; Eosinophils # (auto) 0.72 K/uL (0-0.5); Eosinophils % (auto) 8.5 %; Hemoglobin 11.9 g/dL (14.0-18.0); Immature Granulocytes # (auto) 0.01 K/uL (0.00-0.02); Immature Granulocytes % (auto) 0.1 %; Lymphocytes # (auto) 1.76 K/uL (1.2-3.4); Lymphocytes % (auto) 20.7 %; Mean Corpuscular Hemoglobin 30.4 pg (25-34); Mean Corpuscular Volume 89.3 fL (80-100); Mean Platelet Volume 9.1 fL (7.4-10.4); Monocytes # (auto) 0.74 K/uL (0.11-0.59); Monocytes % (auto) 8.7 %; Neutrophils # (auto) 5.25 K/uL (1.4-6.5); Neutrophils % (auto) 61.5 %; Platelet Count 394 K/uL (130-400); RDW Coefficient of Variation 13.8 % (11.5-14.5); RDW Standard Deviation 44.8 fL (36.4-46.3); Red Blood Count 3.92 M/uL (4.7-6.1); White Blood Count 8.52 K/uL (4.8-10.8)
[2021-09-15 09:11] LABS: BUN Creatinine Ratio 9.4 (10-20); Calcium 8.6 mg/dl (8.5-10.1); Creatinine Clr Calc Pharmacy 65.1 ml/min; Est GFR (African American) 75.4 ml/min; Potassium 3.7 mmol/L (3.5-5.1)
--- NOTE | 2021-09-15 10:12 | Hospitalist Progress Note ---
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 He follows with [facility] for tracheal care, last seen by Dr Bravo 4 weeks back for TEP adjustment. He recently completed OP augmentin for a week. Multifocal PNA- CTA chest with no PE but multifocal tree-in-bud and small nodular airspace opacities favoring pneumonia, aspiration pneumonitis possible. - WBC 14, procal negative, MRSA nare negative. - D/c vanc, continue zosyn and doxy. Mucinex, nebs, Chest physiotherapy, hypertonic saline - Follow sputum clx results - Seen by pulm- recommendations noted Laryngeal cancer s/p tracheostomy in Mar 2019- hx of radiation, no chemotherapy - Follows with [facility] for follow up TEP in place- seen by ENT who evaluated TEP and found some granulation, likely the cause of minor bleed but no intervention needed per ENT. Discussed if that could be the cause of recurrent aspiration, he did not think likely but recommended swallowing test- will reach out to [employer] or radiology tomorrow for the test- if they are unable will reach out to ENT for the same. Also they might be able to see him in the office for management of his TEP locally as per patient wish. Hypoxia- noted today in room air and on supplemental oxygen. He feels fine. Continue COPD- no wheezes, no exacerbation, no need for steroids. Continue inhalers CAD s/p CABG x2 1995 [facility]- no issues currently. On plavix, toprol. Follow with [facility] cardiology as outpatient - Pt is currently on plavix and eliquis - appears Monsequis is onboard s/p CEA with CVA since Apr 2020 - pt is unsure of the reason why he is on eliquis. No current issues with bleeding - In February 2018 patient diagnosed with TIA. Found to have B/L carotid stenosis, worse than prior studies. He underwent right CEA in February 2018 and left CEA in May 2018. HTN- on toprol, norvasc SSS s/p dual chamber pacemaker May 2017- Recently eval by Dr. Garcia 06/26/21 and battery reserve was normal, no issues today Hypothyroid- continue synthroid HTN- DVT ppx- eliquis Dispo- Pending clx results and symptomatic improvement Admission and Anticipated Discharge Date Admission Date: September 13, 2021 Subjective He continues to feel better. Denies any chest pain, shortness of breath but bringing out phlegm. He was noted to be hypoxic in room air this morning and put on oxygen, but states he felt fine all the time. Also bleeding is minimal to stopped and he is not really concerned about it at all. Denies any other issues. Physical Exam Physical Exam: General: Sitting comfortably in bed, not in distress, on supplemental oxygen HEENT: EOMI, ROSEANNE, MMM, TEP in place Chest: Clear breath sounds bilaterally, no wheezes or crackles CVS: Regular rate and rhythm, normal heart sounds, no murmur Abdomen: Soft, non tender, not distended, normal bowel sounds Neuro: Awake, alert, oriented, conversing well, non focal Extremities: No cyanosis, clubbing or edema Results & Data Results & Data ([facility]) Vital Signs (Past 12 Hours) Vital Signs Temp Pulse Pulse Resp BP BP Pulse Ox 09/15/21 07:36 36.8 C 64 20 105/61 85 L 09/15/21 07:16 61 09/15/21 06:19 78 18 94 09/15/21 03:46 36.6 C 67 20 127/71 90 09/14/21 23:41 62 09/14/21 22:47 36.9 C 59 L 18 121/70 97 Laboratory Results Short CBC 09/15/21 Range/Units 07:21 WBC 8.52 (4.8-10.8) K/uL Hgb 11.9 L (14.0-18.0) g/dL Hct 35.0 L (42-52) % Plt Count 394 (130-400) K/uL [facility] 09/15/21 07:21 Sodium 138 Potassium 3.7 Chloride 104 Carbon Dioxide 26 BUN 10 Creatinine 1.06 Glucose 91 Calcium 8.6 Medications Administered Current Inpatient Medications Acetaminophen (Acetaminophen 500 Mg Tab) 1,000 mg PO QID PRN PRN Reason: Fever Or Pain Stop: 10/13/21 19:54 Albuterol (Albuterol 0.083% Nebu Soln 3 Ml Vial) 2.5 mg INH QID PRN; Protocol PRN Reason: Shortness Of Breath Or Wheezing Stop: 10/13/21 19:54 Last Admin: 09/15/21 06:18 Dose: 2.5 mg Documented by: Albuterol (Albut/Ipratrop 3mg/0.5mg Neb 3 Ml Vial) 3 ml INH QID PRN; Protocol PRN Reason: Shortness Of Breath Or Wheezing Stop: 10/13/21 19:54 Amlodipine Besylate (Amlodipine Besylate 5 Mg Tab) 5 mg PO HS [facility] Stop: 10/13/21 20:59 Last Admin: 09/14/21 20:47 Dose: 5 mg Documented by: Apixaban (Apixaban 5 Mg Tablet) 5 mg PO BID [facility] Stop: 10/13/21 20:59 Last Admin: 09/15/21 08:25 Dose: 5 mg Documented by: Atorvastatin Calcium (Atorvastatin 40 Mg Tab) 40 mg PO HS [facility] Stop: 10/13/21 20:59 Last Admin: 09/14/21 20:46 Dose: 40 mg Documented by: Bacitracin (Bacitracin Oint 15 Gm Tube) 1 appln TOP TID [facility] Stop: 10/13/21 20:59 Last Admin: 09/15/21 08:25 Dose: Not Given Documented by: Budesonide (Budesonide 0.5 Mg/2 Ml Vial (Pulmicort)) 0.5 mg INH DAILY [facility] Stop: 10/14/21 08:59 Last Admin: 09/15/21 06:18 Dose: 0.5 mg Documented by: Clopidogrel Bisulfate (Clopidogrel Bisulfate 75 Mg Tab) 75 mg PO QAM [facility] Stop: 10/14/21 08:59 Last Admin: 09/15/21 08:25 Dose: 75 mg Documented by: Doxycycline Hyclate (Doxycycline Hyclate 100 Mg Cap) 100 mg PO BID@1000,2200 [facility] Stop: 09/22/21 09:59 Guaifenesin (Guaifenesin 600 Mg Tabcr) 600 mg PO Q12 [facility] Stop: 10/14/21 20:59 Last Admin: 09/15/21 08:25 Dose: 600 mg Documented by: Hydroxyzine HCl (Hydroxyzine Hcl 25 Mg Tab) 50 mg PO HS [facility] Stop: 10/13/21 20:59 Last Admin: 09/14/21 20:47 Dose: 50 mg Documented by: Piperacillin Sod/Tazobactam (Sod 3.375 gm/ Dextrose) 115 mls @ 28.75 mls/hr IV Q8H [facility]; Protocol Stop: 09/20/21 21:59 Last Infusion: 09/15/21 10:09 Dose: Infused Documented by: Levothyroxine Sodium (Levothyroxine Sodium 125 Mcg Tablet) 125 mcg PO DAILYBB [facility] Stop: 10/14/21 06:29 Last Admin: 09/15/21 06:04 Dose: 125 mcg Documented by: Melatonin (Melatonin 3 Mg Tab) 3 mg PO HS PRN PRN Reason: Sleep Stop: 10/13/21 21:01 Last Admin: 09/14/21 20:45 Dose: 3 mg Documented by: Metoprolol Succinate (Metoprolol Succ 25mg Ext Rel Tab) 25 mg PO DAILY [facility] Stop: 10/14/21 08:59 Last Admin: 09/15/21 08:25 Dose: 25 mg Documented by: Miscellaneous (Order Awaiting Action [Fluorouracil 5 % Cream]) 1 ea N/A QS [facility] Stop: 10/14/21 00:00 Last Admin: 09/15/21 08:23 Dose: Not Given Documented by: Miscellaneous (Order Awaiting Action [Vftuxwjocyo-Epoguwtfk-Mvvzassf [Lonhala Magnair Starter] 25 Mcg]) 1 ea N/A QS [facility] Stop: 10/14/21 00:00 Last Admin: 09/15/21 08:23 Dose: Not Given Documented by: Miscellaneous Information (Piperacill/Tazobac Consult Active) 1 ea N/A UD PRN PRN Reason: Consult Stop: 10/13/21 16:14 Nitroglycerin (Nitroglycerin Sl 0.4 Mg/Tab Tab) 0.4 mg SL UD PRN PRN Reason: Chest Pain Stop: 10/13/21 19:54 Pantoprazole Sodium (Pantoprazole 40 Mg Tab) 40 mg PO QAM [facility]; Protocol Stop: 10/14/21 08:59 Last Admin: 09/15/21 08:25 Dose: 40 mg Documented by: Paroxetine HCl (Paroxetine Hcl 20 Mg Tab) 20 mg PO HS [facility] Stop: 10/13/21 20:59 Last Admin: 09/14/21 20:47 Dose: 20 mg Documented by: Polyethylene Glycol (Polyethylene (Miralax) 17 Gm Pack) 17 gm PO DAILY PRN PRN Reason: Constipation Stop: 10/13/21 19:54 Sodium Chloride (Sodium Chloride 0.9% Nebu Soln 3 Ml) 3 ml NEB . DIRECTED PRN PRN Reason: secretion management Stop: 10/13/21 19:54 (1) CAD (coronary artery disease) Associated angina: without angina Coronary Disease-Associated Artery/Lesion type: unspecified vessel or lesion type [place] vs. transplanted heart: [place] heart Qualified Code(s): I25.10 - Atherosclerotic heart disease of [place] coronary artery without angina pectoris (2) Hypothyroidism Hypothyroidism type: acquired Qualified Code(s): E03.9 - Hypothyroidism, unspecified (3) HTN (hypertension) Hypertension type: essential hypertension Qualified Code(s): I10 - Essential (primary) hypertension
[2021-09-15] MEDS: DOXYCYCLINE HYCLATE 100 MG CAP PO SCH ×2 (10:36→20:47)
--- NOTE | 2021-09-15 12:43 | Pulmonary Consultation ---
Date of Consultation September 15, 2021 Assessment & Plan (1) Aspiration pneumonia: This is likely related to his transesophageal prosthesis. Recommend ENT evaluation. Recommend continued speech therapy evaluation and treatment. Continue broad-spectrum antibiotics for the time being. Chest percussive therapy 4 times a day. Hypertonic saline twice daily. (2) Tracheostomy in place: Will defer management of the transesophageal prosthesis to ENT. Airway appears intact at this time. (3) COPD (chronic obstructive pulmonary disease): Performist added to budesonide. Can switch back to his home regimen when ready for discharge. Thank you for allowing me to participate in the care of this patient. Please call with questions. History of Present Illness Reason for Consultation: Concern for aspiration pneumonia Attending Physician: Medardo Jenkins MD History of Present Illness 81-year-old male with a past medical history of tobacco abuse, squamous cell carcinoma of the larynx, right piriform sinus status post total laryngectomy, right neck dissection and right subtotal thyroidectomy status post radiation in 2019 now with a tracheal stoma presenting to the hospital due to increasing shortness of breath and cough. He notes that his activity level is decreased. Appetite has also been decreased for the past week. He completed a course of 7 days of Augmentin as an outpatient, but still had increased secretions and cough despite these antibiotics. He is currently requiring 8 L of oxygen via the trach collar. He does not appear to be in distress currently. He is eating his lunch. Denies any fevers or chills. Denies chest pain. Chest CTA reviewed which revealed moderate multifocal tree-in-bud small nodular airspace opacities throughout the lung. Diffuse bronchial wall thickening. 8 mm subpleural nodule within the left lower lobe which appears stable compared to prior. Small hiatal hernia. MRSA screen was negative on admission. Pro-Julius negative as well. Currently the patient is on Zosyn. Sputum culture suggested light normal adriana. Blood cultures not obtained. Allergies Allergy/AdvReac Type Severity Reaction Status Date / Time rosuvastatin [From Crestor] Allergy Unknown Unknown Verified 09/13/21 18:03 Home Medications Medication Instructions Recorded Confirmed Type indomethacin 25 mg capsule 1 cap PO TID PRN MDD Gout 03/25/18 09/13/21 History levothyroxine 125 mcg tablet 125 mcg PO QAM 03/25/18 09/13/21 History nitroglycerin 0.4 mg sublingual 1 tab SUBLINGUAL UD PRN 03/25/18 09/13/21 History tablet paroxetine HCl 20 mg tablet (Paxil) 20 mg PO HS 03/25/18 09/13/21 History clopidogrel 75 mg tablet 75 mg PO QAM 06/03/18 09/13/21 History ipratropium 0.5 mg-albuterol 3 mg 3 ml INH QID PRN 06/09/19 09/13/21 History (2.5 mg base)/3 mL nebulization soln albuterol sulfate 2.5 mg INHALATION QID PRN 08/19/19 09/13/21 History omeprazole 20 mg tablet,delayed 20 mg PO QAM 09/06/19 09/13/21 History release amlodipine 5 mg tablet 5 mg PO HS 09/17/19 09/13/21 History atorvastatin 40 mg tablet (Lipitor) 40 mg PO HS 01/13/20 09/13/21 History glycopyrrolate 25 mcg/mL solution 25 mcg INHALATION BID 11/02/20 09/13/21 History for nebulization-nebulizer,accessor. ([facility] Magnair Starter) polyethylene glycol 3350 17 gram 17 g PO DAILY PRN 11/02/20 09/13/21 History oral powder packet (Miralax) acetaminophen 500 mg tablet 1,000 mg PO QID PRN 09/13/21 09/13/21 History (Tylenol Extra Strength) amoxicillin 875 mg-potassium 1 tab PO AMHS 09/13/21 09/13/21 History clavulanate 125 mg tablet apixaban 5 mg tablet (Eliquis) 5 mg PO BID 09/13/21 09/13/21 History bacitracin 500 unit/gram topical 1 applic TOPICAL DIRECTED 09/13/21 09/13/21 History ointment budesonide 0.5 mg/2 mL suspension 0.5 mg INHALATION DAILY 09/13/21 09/13/21 Hi story for nebulization (Pulmicort) fluorouracil 5 % topical cream 1 applic TOPICAL DIRECTED 09/13/21 09/13/21 History hydroxyzine HCl 25 mg tablet 50 mg PO HS 09/13/21 09/13/21 History metoprolol succinate 25 mg 25 mg PO DAILY 09/13/21 09/13/21 History tablet,extended release 24 hr sodium chloride 0.9 % for 0 ml INHALATION DIRECTED 09/13/21 09/13/21 History nebulization Patient History Medical History (Updated 09/15/21 @ 12:39 by Avelino Vogel MD) Acute hypoxemic respiratory failure Anxiety Aspiration pneumonia Benign neoplasm of colon CAD (coronary artery disease) "1996 - CABG x 2" Cardiac pacemaker in situ 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 LAST CHECKED REMOTELY 05/31/18 Carotid artery stenosis with cerebral infarction over 8 weeks ago The patient presented to [facility] ED on 03/26/18 with expressive aphasia, left upper extremity numbness, left lower extremity weakness. Symptoms were resolving by the time the patient arrived in the ED. 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 Neck pain OCCASIONAL Obesity JAIME on CPAP no longer on CPAP post tracheostomy Peripheral eosinophilia Pharyngocutaneous fistula Sleep apnea CPAP Surgical History History of bronchoscopy History of carotid endarterectomy RIGHT (MARCH 2018) History of cataract extraction with lens replacement cataract extraction with IOL implant and LRI left eye - 05/02/12 History of colonoscopy with polypectomy History of coronary artery bypass graft X2 VESSEL 1995 -- [facility] History of rotator cuff surgery Right - 2009 History of tonsillectomy Hx of laryngectomy Family History (Updated 09/13/21 @ 17:35 by Marsha Zaman PA-C) Mother Essential hypertension Stroke Sister Cancer Breast cancer Daughter Cancer Colon cancer Social History Smoking Status: Former smoker Tobacco Type: Cigarettes Second Hand Exposure: No; Hx Alcohol Use: No Hx Substance Use: No Preferred Language: Belarusian Communication Ability: Effective Visual Impairment: No Limitations Risk Control Field Representative Required: No Beliefs That Will Affect Care: None marital status: Current Living Situation: Spouse current occupational status: retired Feels Safe at Home: Yes Safety Concerns: Feels Safe At This Time Assistive Devices: Glasses and Nebulizer Review of Systems Review of Systems: All systems reviewed & are unremarkable except as noted in HPI & below Physical Exam Constitutional: WD/WN, vitals as above ENMT: external ear and nose normal, oropharynx normal Neck: Trachea noted with transesophageal prosthesis in place. Thick secretions from stoma. Respiratory: normal respiratory effort, lungs clear to auscultation Cardiovascular: RRR, no murmur, no edema Gastrointestinal (Abdomen): normal bowel sounds, soft, nontender, no hepatosplenomegaly Neurologic: PERRL, EOMI, accommodation nl, no face palsy, no dysarthria Psychiatric: A+Ox3, euthymic affect Results & Data Results & Data ([facility]) Vital Signs (Past 12 Hours) Vital Signs Temp Pulse Pulse Resp BP Pulse Ox 09/15/21 11:38 94 09/15/21 11:21 37.1 C 62 16 111/58 L 97 09/15/21 08:00 92 09/15/21 07:36 36.8 C 64 20 105/61 85 L 09/15/21 07:16 61 09/15/21 06:19 78 18 94 09/15/21 03:46 36.6 C 67 20 127/71 90 PG Care Time/CCT Total # of Minutes Spent Total Time Spent with Patient: Total time spent is greater than 50% in coordination of care (as documented) at patient's floor/unit and/or counseling patient: Coding Level of Care Code 20563 Initial Inpt Care Lvl 3 Diagnoses Aspiration pneumonia J69.[address] Z93.0 COPD (chronic obstructive pulmonary disease) J44.9
[2021-09-15] MEDS: FORMOTEROL 20 MCG/2 ML VIAL NEB SCH ×2 (14:31→19:37)
--- NOTE | 2021-09-15 15:12 | ENT Consultation ---
Date of Consultation September 15, 2021 Assessment & Plan (1) Multifocal pneumonia: Question of whether the patient's pneumonia is an Aspiration Pneumonia (?) from any Leakage at the Tracheo-Esophageal Puncture [TEP] site (?) I did NOT witness any Leakage - NOR any signs of a Fistula around the Annabella-Nazario Device. But as the TEP Device / Annabella-Nazario Device is visible deeper in the Laryngeal Stoma - the Question as to any LEAK or FISTULA can be investigated by either: #1) Getting SPEECH / SWALLOWING THERAPIST to do a Colored or Dye AppleSauce Test with Swallowing at the Bedside to see IF it is indeed Leaking ? #2) Ordering a BARIUM SWALLOW and Having the Radiology Department performing the Barium Sallow and documenting whether there is any Spill or Communication between the Esophagus and the larynx. Present on Admission?: Yes (2) History of laryngectomy: Patient has had a TOTAL LARYNGECTOMY and he CANNOT Breath through his Mouth or Nose. It is NOT a Tracheostomy as indicated in the chart and a TRACHEOSTOMY TUBE IS NOT PRESENT. It is a Laryngectomy Tube. The small amount of "pink" discharge was only temporary and I suspect coming from a minimal amount of granulation tissue present that should resolve. NO treatment for this is required at this time. It should resolve with time and regular TEP Device replacements which are happening on a Bi-Monthly basis @ [facility] in [place]. Present on Admission?: Yes Patient may follow up as usual with [facility] - ENT or he may Follow up with [facility] where he had his Laryngectomy / Free Flap Reconstruction done in 2019. History of Present Illness Reason for Consultation: Bleeding about the Attending Physician: Medardo Jenkins MD History of Present Illness Patient has been admitted to [facility] for SOB, COPD and Multifocal Pneumonia on Thursday [13 SEP 2021] through the [facility]-ED. It was noted some "[place]" discharge from his Laryngeal Stoma that has a deep Tracheo-Esophageal Fistula [TEP] or "Annabella-Nazario DEVICE" for Laryngeal Speech. His chronic or multifocal pneumonia findings per Pulmonology Service question whether there is possible aspiration pneumonia coming from a "Leak" about the TEP / Annabella-Nazario Device (?). Other past medical hx includes COPD, CAD s/p CABG, SSS s/p PPM, PVD s/p surgery, HTN, HLD, history of CVA, hypothyroidism, CKD, chronic anemia who presents with increased in sputum production associated with generalized ill feeling over past few months. He has previously followed with [facility] for Trachea-Esophageal Puncture [TEP] and Head & Neck Cancer Surveillance. Patient is an 81 yo M with PMHx of previous tobacco use, and a Glottic Cancer developed unfortunately in 1985. The Squamous Cell Cancer was first confined to the Vocal Cords - where the patient FIRST had RADIATION THERAPY (XRT) in [place], [place] where he lived at the time for his cancer treatment. The initial XRT in 1985 was successful at first in controlling his Glottic Cancer. 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 . Allergies Allergy/AdvReac Type Severity Reaction Status Date / Time rosuvastatin [From Crestor] Allergy Unknown Unknown Verified 09/13/21 18:03 Home Medications Medication Instructions Recorded Confirmed Type indomethacin 25 mg capsule 1 cap PO TID PRN MDD Gout 03/25/18 09/13/21 History levothyroxine 125 mcg tablet 125 mcg PO QAM 03/25/18 09/13/21 History nitroglycerin 0.4 mg sublingual 1 tab SUBLINGUAL UD PRN 03/25/18 09/13/21 History tablet paroxetine HCl 20 mg tablet (Paxil) 20 mg PO HS 03/25/18 09/13/21 History clopidogrel 75 mg tablet 75 mg PO QAM 06/03/18 09/13/21 History ipratropium 0.5 mg-albuterol 3 mg 3 ml INH QID PRN 06/09/19 09/13/21 History (2.5 mg base)/3 mL nebulization soln albuterol sulfate 2.5 mg INHALATION QID PRN 08/19/19 09/13/21 History omeprazole 20 mg tablet,delayed 20 mg PO QAM 09/06/19 09/13/21 History release amlodipine 5 mg tablet 5 mg PO HS 09/17/19 09/13/21 History atorvastatin 40 mg tablet (Lipitor) 40 mg PO HS 01/13/20 09/13/21 History glycopyrrolate 25 mcg/mL solution 25 mcg INHALATION BID 11/02/20 09/13/21 History for nebulization-nebulizer,accessor. 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) polyethylene glycol 3350 17 gram 17 g PO DAILY PRN 11/02/20 09/13/21 History oral powder packet (Miralax) acetaminophen 500 mg tablet 1,000 mg PO QID PRN 09/13/21 09/13/21 History (Tylenol Extra Strength) amoxicillin 875 mg-potassium 1 tab PO AMHS 09/13/21 09/13/21 History clavulanate 125 mg tablet apixaban 5 mg tablet (Eliquis) 5 mg PO BID 09/13/21 09/13/21 History bacitracin 500 unit/gram topical 1 applic TOPICAL DIRECTED 09/13/21 09/13/21 History ointment budesonide 0.5 mg/2 mL suspension 0.5 mg INHALATION DAILY 09/13/21 09/13/21 History for nebulization (Pulmicort) fluorouracil 5 % topical cream 1 applic TOPICAL DIRECTED 09/13/21 09/13/21 History hydroxyzine HCl 25 mg tablet 50 mg PO HS 09/13/21 09/13/21 History metoprolol succinate 25 mg 25 mg PO DAILY 09/13/21 09/13/21 History tablet,extended release 24 hr sodium chloride 0.9 % for 0 ml INHALATION DIRECTED 09/13/21 09/13/21 History nebulization Patient History Medical History Acute hypoxemic respiratory failure Anxiety Aspiration pneumonia Benign neoplasm of colon CAD (coronary artery disease) "1995 - CABG x 2" Cardiac pacemaker in situ 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 LAST CHECKED REMOTELY 05/31/18 Carotid artery stenosis with cerebral infarction over 8 weeks ago The patient presented to [facility] ED on 03/26/18 with expressive aphasia, left upper extremity numbness, left lower extremity weakness. Symptoms were resolving by the time the patient arrived in the ED. 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 Neck pain OCCASIONAL Obesity JAIME on CPAP no longer on CPAP post tracheostomy Peripheral eosinophilia Pharyngocutaneous fistula Sleep apnea CPAP Surgical History (Updated 09/15/21 @ 15:53 by Wilman Guzman MD) History of bronchoscopy History of carotid endarterectomy RIGHT (MARCH 2018) History of cataract extraction with lens replacement cataract extraction with IOL implant and LRI left eye - 05/02/12 History of colonoscopy with polypectomy History of coronary artery bypass graft X2 VESSEL 1995 -- [facility] History of laryngectomy History of rotator cuff surgery Right - 2009 History of tonsillectomy Hx of laryngectomy Family History Mother Essential hypertension Stroke Sister Cancer Breast cancer Daughter Cancer Colon cancer Social History Smoking Status: Former smoker Tobacco Type: Cigarettes Second Hand Exposure: No; Hx Alcohol Use: No Hx Substance Use: No Preferred Language: Mongolian Communication Ability: Effective Visual Impairment: No Limitations Director Data Architecture Required: No Beliefs That Will Affect Care: None marital status: Current Living Situation: Spouse current occupational status: retired Feels Safe at Home: Yes Safety Concerns: Feels Safe At This Time Assistive Devices: Glasses and Nebulizer Review of Systems Review of Systems: ROS was reviewed and consistent with that found on Admission - see Admission H&P. Physical Exam Physical Exam: Alert & Oriented at bedside. Constitutional: WD/WN, vitals as above Eyes: PERRL, conjunctivae normal, anicteric sclerae ENMT: Ears: no external ear abnormality and no TM abnormality Nose: no external nose abnormality, no turbinate abnormality, no nasal discharge and no nasal polyps Mouth: + chipped teeth; no lip abnormality, no oral mucosal abnormality and no tongue abnormality Throat: uvula midline and + tonsils absent; no uvular edema and no postnasal drainage Neck: Has MATURE LARYNGEAL STOMA - due to his past TOTAL LARYNGECTOMY. He has a soft silicone Laryngeal Tube in place. It is removed. There is a deep Annabella- Nazario / Provox Device or Prothesis in place about 2~3 centimeters from the Laryngeal Stomal Edge. NO Leaks witnessed on inspection. There is a SMALL Amount of granulation tissue present at about 12 Noon on the Prothesis - and it is only about 1~2 mm IN SIZE - very SMALL. NO cervical Adenopathy. NO neck masses. Results & Data ([facility]) Vital Signs (Past 12 Hours) Vital Signs Temp Pulse Pulse Resp BP Pulse Ox 09/15/21 14:50 36.5 C 76 18 131/76 96 09/15/21 14:31 66 18 91 09/15/21 13:29 94 09/15/21 11:38 94 09/15/21 11:21 37.1 C 62 16 111/58 L 97 09/15/21 08:00 92 09/15/21 07:36 36.8 C 64 20 105/61 85 L 09/15/21 07:16 61 09/15/21 06:19 78 18 94 09/15/21 03:46 36.6 C 67 20 127/71 90 Laboratory Results WBC = 8.5 Hgb / Hct = 11.9 g/dL / 35.0% Diagnostic Findings FINDINGS: No pulmonary emboli are identified. There is no thoracic aortic dissection. Median sternotomy wires are noted as well as postoperative findings from bypass grafting. Size of the heart is normal. There is no pericardial effusion. There is moderate coronary artery calcification. Small hiatal hernia is present. Tracheostomy is noted. Diffuse bronchial wall thickening is present. Scattered secretions within the airways are present. Multifocal tree-in-bud nodules are noted throughout the lungs. Scattered small irregular nodular opacities are also likely infectious in etiology. An 8 mm subpleural nodule within the superior segment of the left lower lobe on image 211 of has minimally increased in size since prior exam. This is probably benign. There is no pneumothorax or pleural effusion. There is no cavitation. Water attenuation lesions within the upper pole of the kidneys reflect cysts. 1.4 cm lesion within the upper pole of the right kidney measures above water attenuation. This is indeterminate. However, this is similar in size to CT of January 16, 2020. IMPRESSION: 1. No pulmonary emboli identified. 2. Moderate multifocal tree-in-bud and small nodular airspace opacities throughout the lungs. The findings favor an infectious process. Aspiration pneumonitis is also within the differential. 3. Diffuse bronchial wall thickening. 4. 8 mm subpleural nodule within the left lower lobe. Given relative stability, this is likely benign. 5. Small hiatal hernia.
[2021-09-15] MEDS: MELATONIN 3 MG TAB PO PRN (20:45)
[2021-09-15] MEDS: amLODIPine BESYLATE 5 MG TAB PO SCH (20:45)
[2021-09-15] MEDS: ATORVASTATIN 40 MG TAB PO SCH (20:46)
[2021-09-15] MEDS: PARoxetine HCL 20 MG TAB PO SCH (20:47)
[2021-09-15] MEDS: hydrOXYzine HCl 25 MG TAB PO SCH (20:47)
[2021-09-16] MEDS: PIPERACILLIN/TAZOBACTAM 3.375 GM in DEXTROSE 5% 100 ML IV SCH ×3 (05:25→21:28)
[2021-09-16] MEDS: LEVOTHYROXINE SODIUM 125 MCG TABLET PO SCH (05:25)
[2021-09-16] MEDS: BUDESONIDE 0.5 MG/2 ML VIAL (PULMICORT) INH SCH (07:12)
[2021-09-16] MEDS: FORMOTEROL 20 MCG/2 ML VIAL NEB SCH ×2 (07:12→19:30)
[2021-09-16 09:03] LABS: Hematocrit (blood only) 36.6 % (42-52); Hemoglobin 11.8 g/dL (14.0-18.0); Mean Corpuscular Hemoglobin 29.2 pg (25-34); Mean Corpuscular Hgb Conc 32.2 g/dL (32-36); Mean Corpuscular Volume 90.6 fL (80-100); Platelet Count 401 K/uL (130-400); RDW Standard Deviation 46.2 fL (36.4-46.3); Red Blood Count 4.04 M/uL (4.7-6.1); White Blood Count 8.02 K/uL (4.8-10.8)
[2021-09-16] MEDS: CLOPIDOGREL BISULFATE 75 MG TAB PO SCH (09:17)
[2021-09-16] MEDS: guaiFENesin 600 MG TABCR PO SCH ×2 (09:17→20:10)
[2021-09-16] MEDS: BACITRACIN OINT 15 GM TUBE TOP SCH ×3 (09:17→20:13)
[2021-09-16] MEDS: PANTOprazole 40 MG TAB PO SCH (09:17)
[2021-09-16] MEDS: METOPROLOL SUCC 25MG EXT REL TAB PO SCH (09:17)
[2021-09-16] MEDS: DOXYCYCLINE HYCLATE 100 MG CAP PO SCH ×2 (09:17→21:27)
[2021-09-16] MEDS: APIXABAN 5 MG TABLET PO SCH ×2 (09:18→20:11)
[2021-09-16 09:39] LABS: BUN Creatinine Ratio 7.8 (10-20); Calcium 8.8 mg/dl (8.5-10.1); Creatinine Clr Calc Pharmacy 60.8 ml/min; Est GFR (African American) 68.3 ml/min; Est GFR (Non-African American) 58.9 ml/min; Potassium 4.1 mmol/L (3.5-5.1)
[2021-09-16] MEDS: ALBUT/IPRATROP 3MG/0.5MG NEB 3 ML VIAL INH PRN ×2 (11:13→15:21)
--- NOTE | 2021-09-16 13:29 | Hospitalist Progress Note ---
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 He follows with [facility] for tracheal care, last seen by Dr Bravo 4 weeks back for TEP adjustment. He recently completed OP augmentin for a week. Multifocal PNA - CTA chest with no PE but multifocal tree-in-bud and small nodular airspace opacities favoring pneumonia, likely aspiration pneumonia from his TEP - WBC 14, procal negative, MRSA nare negative. sputum clx negative. - Continue zosyn and doxy,mucinex, nebs, Chest physiotherapy, hypertonic saline - Seen by pulm- recommendations noted - S/p videofluoroscopic swallow study which today showed barium leak from his TEP. He will need to follow up with his ENT for further management. Laryngeal cancer s/p tracheostomy in Mar 2019- hx of radiation, no chemotherapy - Follows with ENT for follow up TEP in place- seen by ENT who evaluated TEP and found some granulation, likely the cause of minor bleed but no intervention needed per ENT. - S/p videofluoroscopic swallow study which today showed barium leak from his TEP. He will need to follow up with his ENT for further management. Hypoxia- resolved, now in room air COPD- no wheezes, no exacerbation, no need for steroids. Continue inhalers CAD s/p CABG x2 [facility]- no issues currently. On plavix, toprol. [place] [facility] [place] - Pt is currently on plavix and eliquis - appears Eliquis is onboard s/p CEA with CVA since Apr 2020 - pt is unsure of the reason why he is on eliquis. No current issues with bleeding - In February 2018 patient diagnosed with TIA. Found to have B/L carotid stenosis, worse than prior studies. He underwent right CEA in February 2018 and left CEA in May 2018. HTN- on toprol, norvasc SSS s/p dual chamber pacemaker May 2017- Recently eval by Dr. Garcia 06/26/21 and battery reserve was normal, no issues currently Hypothyroid- continue synthroid HTN- DVT ppx- eliquis Dispo- Anticipate discharge in 1-2 days if continues to improve and no further ENT plans in house Admission and Anticipated Discharge Date Admission Date: September 13, 2021 Subjective States he is feeling better. He feels the chest physiotherapy significantly helped him. He states that he did have some issues with TEP leaking. He is concerned whether the TEP size is too long. Denies any hemoptysis. No fever or chills. Off of oxygen Physical Exam Physical Exam: General: Sitting comfortably in bed, not in distress, on room air HEENT: EOMI, ROSEANNE, MMM, TEP in place Chest: Clear breath sounds bilaterally, no wheezes or crackles CVS: Regular rate and rhythm, normal heart sounds, no murmur Abdomen: Soft, non tender, not distended, normal bowel sounds Neuro: Awake, alert, oriented, conversing well, non focal Extremities: No cyanosis, clubbing or edema Results & Data Results & Data ([facility]) Vital Signs (Past 12 Hours) Vital Signs Temp Pulse Pulse Pulse Resp BP Pulse Ox 09/16/21 12:37 37.0 C 81 20 137/57 L 92 09/16/21 11:14 101 H 18 90 09/16/21 07:41 36.9 C 92 H 19 133/84 100 09/16/21 07:18 100 H 18 96 09/16/21 07:00 80 09/16/21 03:37 36.8 C 60 18 119/68 94 Laboratory Results Short CBC 09/16/21 Range/Units 08:24 WBC 8.02 (4.8-10.8) K/uL Hgb 11.8 L (14.0-18.0) g/dL Hct 36.6 L (42-52) % Plt Count 401 H (130-400) K/uL BMP 09/16/21 08:24 Sodium 137 Potassium 4.1 Chloride 102 Carbon Dioxide 27 BUN 9 Creatinine 1.15 Glucose 115 H Calcium 8.8 Medications Administered Current Inpatient Medications Acetaminophen (Acetaminophen 500 Mg Tab) 1,000 mg PO QID PRN PRN Reason: Fever Or Pain Stop: 10/13/21 19:54 Albuterol (Albuterol 0.083% Nebu Soln 3 Ml Vial) 2.5 mg INH QID PRN; Protocol PRN Reason: Shortness Of Breath Or Wheezing Stop: 10/13/21 19:54 Last Admin: 09/15/21 06:18 Dose: 2.5 mg Documented by: Albuterol (Albut/Ipratrop 3mg/0.5mg Neb 3 Ml Vial) 3 ml INH QID PRN; Protocol PRN Reason: Shortness Of Breath Or Wheezing Stop: 10/13/21 19:54 Last Admin: 09/16/21 11:13 Dose: 3 ml Documented by: Amlodipine Besylate (Amlodipine Besylate 5 Mg Tab) 5 mg PO HS HUNG Stop: 10/13/21 20:59 Last Admin: 09/15/21 20:45 Dose: 5 mg Documented by: Apixaban (Apixaban 5 Mg Tablet) 5 mg PO BID HUNG Stop: 10/13/21 20:59 Last Admin: 09/16/21 09:18 Dose: 5 mg Documented by: Atorvastatin Calcium (Atorvastatin 40 Mg Tab) 40 mg PO HS HUNG Stop: 10/13/21 20:59 Last Admin: 09/15/21 20:46 Dose: 40 mg Documented by: Bacitracin (Bacitracin Oint 15 Gm Tube) 1 appln TOP TID HUNG Stop: 10/13/21 20:59 Last Admin: 09/16/21 09:17 Dose: Not Given Documented by: Budesonide (Budesonide 0.5 Mg/2 Ml Vial (Pulmicort)) 0.5 mg INH DAILY HUNG Stop: 10/14/21 08:59 Last Admin: 09/16/21 07:12 Dose: 0.5 mg Documented by: Clopidogrel Bisulfate (Clopidogrel Bisulfate 75 Mg Tab) 75 mg PO QAM HUNG Stop: 10/14/21 08:59 Last Admin: 09/16/21 09:17 Dose: 75 mg Documented by: Doxycycline Hyclate (Doxycycline Hyclate 100 Mg Cap) 100 mg PO BID@1000,2200 COUNT INCLUDES THE [facility] Stop: 09/22/21 09:59 Last Admin: 09/16/21 09:17 Dose: 100 mg Documented by: Formoterol Fumarate (Formoterol 20 Mcg/2 Ml Vial) 20 mcg NEB BIDR COUNT INCLUDES THE [facility] Stop: 10/15/21 12:44 Last Admin: 09/16/21 07:12 Dose: 20 mcg Documented by: Guaifenesin (Guaifenesin 600 Mg Tabcr) 600 mg PO Q12 COUNT INCLUDES THE [facility] Stop: 10/14/21 20:59 Last Admin: 09/16/21 09:17 Dose: 600 mg Documented by: Hydroxyzine HCl (Hydroxyzine Hcl 25 Mg Tab) 50 mg PO HS COUNT INCLUDES THE [facility] Stop: 10/13/21 20:59 Last Admin: 09/15/21 20:47 Dose: 50 mg Documented by: Piperacillin Sod/Tazobactam (Sod 3.375 gm/ Dextrose) 115 mls @ 28.75 mls/hr IV Q8H COUNT INCLUDES THE [facility]; Protocol Stop: 09/20/21 21:59 Last Infusion: 09/16/21 09:17 Dose: Infused Documented by: Levothyroxine Sodium (Levothyroxine Sodium 125 Mcg Tablet) 125 mcg PO DAILYBB COUNT INCLUDES THE [facility] Stop: 10/14/21 06:29 Last Admin: 09/16/21 05:25 Dose: 125 mcg Documented by: Melatonin (Melatonin 3 Mg Tab) 3 mg PO HS PRN PRN Reason: Sleep Stop: 10/13/21 21:01 Last Admin: 09/15/21 20:45 Dose: 3 mg Documented by: Metoprolol Succinate (Metoprolol Succ 25mg Ext Rel Tab) 25 mg PO DAILY COUNT INCLUDES THE [facility] Stop: 10/14/21 08:59 Last Admin: 09/16/21 09:17 Dose: 25 mg Documented by: Miscellaneous (Order Awaiting Action [Fluorouracil 5 % Cream]) 1 ea N/A QS COUNT INCLUDES THE [facility] Stop: 10/14/21 00:00 Last Admin: 09/16/21 09:17 Dose: Not Given Documented by: Miscellaneous (Order Awaiting Action [Cysojnchdcp-Kmnupgfxu-Jqeynaji [Lonhala Magnair Starter] 25 Mcg]) 1 ea N/A QS COUNT INCLUDES THE [facility] Stop: 10/14/21 00:00 Last Admin: 09/16/21 09:17 Dose: Not Given Documented by: Miscellaneous Information (Piperacill/Tazobac Consult Active) 1 ea N/A UD PRN PRN Reason: Consult Stop: 10/13/21 16:14 Nitroglycerin (Nitroglycerin Sl 0.4 Mg/Tab Tab) 0.4 mg SL UD PRN PRN Reason: Chest Pain Stop: 10/13/21 19:54 Pantoprazole Sodium (Pantoprazole 40 Mg Tab) 40 mg PO QAM COUNT INCLUDES THE [facility]; Protocol Stop: 10/14/21 08:59 Last Admin: 09/16/21 09:17 Dose: 40 mg Documented by: Paroxetine HCl (Paroxetine Hcl 20 Mg Tab) 20 mg PO HS COUNT INCLUDES THE [facility] Stop: 10/13/21 20:59 Last Admin: 09/15/21 20:47 Dose: 20 mg Documented by: Polyethylene Glycol (Polyethylene (Miralax) 17 Gm Pack) 17 gm PO DAILY PRN PRN Reason: Constipation Stop: 10/13/21 19:54 (1) CAD (coronary artery disease) Associated angina: without angina Coronary Disease-Associated Artery/Lesion type: unspecified vessel or lesion type [place] vs. transplanted heart: [place] heart Qualified Code(s): I25.10 - Atherosclerotic heart disease of [place] coronary artery without angina pectoris (2) Hypothyroidism Hypothyroidism type: acquired Qualified Code(s): E03.9 - Hypothyroidism, unspecified (3) HTN (hypertension) Hypertension type: essential hypertension Qualified Code(s): I10 - Essential (primary) hypertension
--- NOTE | 2021-09-16 14:49 | Fluoroscopy Report ---
MODIFIED BARIUM SWALLOW CLINICAL HISTORY: r/o leak from TEP COMPARISON STUDY: Modified barium swallow March 25, 2016. FLUOROSCOPY TIME: 1.2 minutes. TECHNIQUE: A modified barium swallow was performed in conjunction with Speech Pathology. The patient ingested varying consistencies of barium containing material. Video fluoroscopy was performed. FINDINGS: The patient drank thin and mildly thick liquids from cup in single and sequential swallows. This evaluation was performed to assess for a leak at the tracheoesophageal puncture. The fluoroscop ic images did not demonstrate the leak however a leak was visualized by the Speech pathologist. IMPRESSION: Modified barium swallow performed to assess for tracheoesophageal puncture leak. A leak was visualized by Speech pathology although is not well depicted on these images. Please see the repo rt by the Speech pathologist report for details. ACT 112: Negative or not required by law. Electronically signed by: Russ Herzog M.D. 09/16/2021 2:48 PM
[2021-09-16] MEDS: PARoxetine HCL 20 MG TAB PO SCH (20:09)
[2021-09-16] MEDS: hydrOXYzine HCl 25 MG TAB PO SCH (20:10)
[2021-09-16] MEDS: ATORVASTATIN 40 MG TAB PO SCH (20:11)
[2021-09-16] MEDS: amLODIPine BESYLATE 5 MG TAB PO SCH (20:11)
[2021-09-17] MEDS: LEVOTHYROXINE SODIUM 125 MCG TABLET PO SCH (05:58)
[2021-09-17] MEDS: PIPERACILLIN/TAZOBACTAM 3.375 GM in DEXTROSE 5% 100 ML IV SCH ×3 (05:58→21:33)
[2021-09-17] MEDS: FORMOTEROL 20 MCG/2 ML VIAL NEB SCH ×2 (07:02→19:39)
[2021-09-17] MEDS: BUDESONIDE 0.5 MG/2 ML VIAL (PULMICORT) INH SCH (07:02)
[2021-09-17] MEDS: guaiFENesin 600 MG TABCR PO SCH ×2 (07:43→20:12)
[2021-09-17] MEDS: CLOPIDOGREL BISULFATE 75 MG TAB PO SCH (07:43)
[2021-09-17] MEDS: BACITRACIN OINT 15 GM TUBE TOP SCH ×3 (07:43→20:14)
[2021-09-17] MEDS: DOXYCYCLINE HYCLATE 100 MG CAP PO SCH ×2 (07:43→21:33)
[2021-09-17] MEDS: METOPROLOL SUCC 25MG EXT REL TAB PO SCH (07:43)
[2021-09-17] MEDS: PANTOprazole 40 MG TAB PO SCH (07:44)
[2021-09-17 08:53] LABS: Creatinine Clr Calc Pharmacy 59.2 ml/min; Est GFR (African American) 66.9 ml/min; Est GFR (Non-African American) 57.7 ml/min
[2021-09-17] MEDS: APIXABAN 5 MG TABLET PO SCH ×2 (09:24→20:13)
[2021-09-17] MEDS: ALBUT/IPRATROP 3MG/0.5MG NEB 3 ML VIAL INH PRN ×2 (09:56→13:42)
--- NOTE | 2021-09-17 10:44 | Hospitalist Progress Note ---
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 He follows with [facility] for tracheal care, last seen by Dr Bravo 4 weeks back for TEP adjustment. He recently completed OP augmentin for a week. Multifocal PNA - CTA chest with no PE but multifocal tree-in-bud and small nodular airspace opacities favoring pneumonia, likely aspiration pneumonia from his TEP - WBC 14, procal negative, MRSA nare negative. sputum clx negative. - Continue zosyn and doxy,mucinex, nebs, Chest physiotherapy, hypertonic saline - Seen by pulm- recommendations noted - S/p videofluoroscopic swallow study which today showed barium leak from his TEP. He will need to follow up with his ENT for further management. Laryngeal cancer s/p tracheostomy in Mar 2019- hx of radiation, no chemotherapy - Follows with ENT for follow up TEP in place- seen by ENT who evaluated TEP and found some granulation, likely the cause of minor bleed but no intervention needed per ENT. - S/p videofluoroscopic swallow study which today showed barium leak from his TEP. He will need to follow up with his ENT for further management. Hypoxia- resolved, now in room air COPD- no wheezes, no exacerbation, no need for steroids. Continue inhalers CAD s/p CABG x2 [address] [facility]- no issues currently. On plavix, toprol. Follow with [facility] [place] cardiology as outpatient - Pt is currently on plavix and eliquis - appears Eliquis is onboard s/p CEA with CVA since Apr 2020 - pt is unsure of the reason why he is on eliquis. No current issues with bleeding - In February 2018 patient diagnosed with TIA. Found to have B/L carotid stenosis, worse than prior studies. He underwent right CEA in February 2018 and left CEA in May 2018. HTN- on toprol, norvasc SSS s/p dual chamber pacemaker May 2017- Recently eval by Dr. Garcia 06/26/21 and battery reserve was normal, no issues currently Hypothyroid- continue synthroid HTN- DVT ppx- eliquis Dispo- Anticipate discharge in 1-2 days if continues to improve and no further ENT plans in house Admission and Anticipated Discharge Date Admission Date: September 13, 2021 Subjective States he feels better. Remains stable on room air. Vest therapy helping. No fever, chills, nausea, vomiting. Normal oral intake. Regular bowel movements. Discussed about TEP leak and that it is the likely cause of his recurrent aspiration pneumonia. I spoke to ENT who will discuss with him the options. Physical Exam Physical Exam: General: Sitting comfortably in bed, not in distress, on room air HEENT: EOMI, ROSEANNE, MMM, TEP in place Chest: Clear breath sounds bilaterally, no wheezes or crackles CVS: Regular rate and rhythm, normal heart sounds, no murmur Abdomen: Soft, non tender, not distended, normal bowel sounds Neuro: Awake, alert, oriented, conversing well, non focal Extremities: No cyanosis, clubbing or edema Results & Data Results & Data ([facility]) Vital Signs (Past 12 Hours) Vital Signs Temp Pulse Pulse Pulse Resp BP Pulse Ox 09/17/21 10:05 70 18 93 09/17/21 08:00 61 09/17/21 07:05 67 18 90 09/17/21 06:44 36.6 C 64 18 150/68 H 90 09/17/21 02:59 36.9 C 63 18 128/70 92 09/17/21 00:34 66 09/16/21 23:53 37.0 C 62 18 127/66 92 Laboratory Results BMP 09/17/21 07:55 Creatinine 1.17 (1) CAD (coronary artery disease) Associated angina: without angina Coronary Disease-Associated Artery/Lesion type: unspecified vessel or lesion type [place] vs. transplanted heart: [place] heart Qualified Code(s): I25.10 - Atherosclerotic heart disease of [place] coronary artery without angina pectoris (2) Hypothyroidism Hypothyroidism type: acquired Qualified Code(s): E03.9 - Hypothyroidism, unspecified (3) HTN (hypertension) Hypertension type: essential hypertension Qualified Code(s): I10 - Essential (primary) hypertension
[2021-09-17] MEDS: PARoxetine HCL 20 MG TAB PO SCH (20:11)
[2021-09-17] MEDS: hydrOXYzine HCl 25 MG TAB PO SCH (20:11)
[2021-09-17] MEDS: ATORVASTATIN 40 MG TAB PO SCH (20:12)
[2021-09-17] MEDS: amLODIPine BESYLATE 5 MG TAB PO SCH (20:13)
--- NOTE | 2021-09-17 21:19 | Ears,Nose,Throat Progress Note ---
Date of Service September 17, 2021 Assessment & Plan (1) Aspiration pneumonia: Plan: While it is likely that patient's pneumonia is exacerbated from the LEAKAGE around the Annabella-Nazario/TEP Device - my discussion with the patient, informs me that in his regular Bi-Monthly Head & Neck Speech Swallowing care - [facility] has been RE-Sizing the TEP Device. That would explain the current finding of Leaking. Patient reports that [facility] has been going from a 12 Fr to an 8 Fr in resent fittings / sizing and changes. The two options to REDUCE or ELIMINATE the TEP LEAKAGE are to: 1) Monitor the patient's diet and REDUCE LIQUID ingestion - which would "LEAK" easier - than s ay having Puree or Thickened Soft diet. or to 2) Keep the patient NPO and convert to NG tube Feedings until there is further healing around the Annabella-Nazario/TEP Device. 3) REMOVE the Annabella-Nazario/TEP Device, Place NPO and convert to NG Tube Feedings and just allow the man-made Tracheo-Esophageal Fistula for Speech to permanently close. 4) RE- SIZE the current Annabella-Nazario/TEP Device - to get to one that actually FITS the Fistula and REDUCE / PREVENT "LEAKS". The Patient does NOT want to remove the Annabella-Nazario/TEP Device as he very much wants to continue communication / socialization. In that case, it is best to leave the Annabella-Nazario Device in place and chose one of the Options of #1, #2 or #4. The patient hopes to Keep the Current Device in place and get it "RE-Sized" on his Next Visit to [facility]. Admission and Anticipated Discharge Date Admission Date: September 13, 2021 Subjective Follow up of Head & Neck Cancer Survivor - Total Laryngectomy who is hospitalized for Pneumonia. Patient is followed by [facility] and Bi-Monthly is seen for Regular Care and Replacement of the Annabella-Nazario / TEP Device. Patient was getting Pulmonary Percusion Care during our visit. Bedside Swallowing study by [facility] did indeed demonstrat that there is LEAKAGE around the TEP DEVICE. Physical Exam Physical Exam: Alert & Oriented. Communicative and sitting up. Constitutional: WD/WN, vitals as above Neck: Neck anatomy unchanged. NO swelling, NO cellulitis. Laryngeal Stoma is mature and clean. The Annabella-Nazario/TEP device is in place behind the Laryngeal Stoma stent. Bedside Swallowing study by [facility] did indeed demonstrate that there is LEAKAGE around the TEP DEVICE. Results & Data ([facility]) Vital Signs (Past 12 Hours) Vital Signs Temp Pulse Pulse Pulse Resp BP BP 09/17/21 19:40 63 18 09/17/21 19:29 36.8 C 65 18 155/72 H 09/17/21 16:00 76 09/17/21 14:41 36.8 C 83 20 129/67 09/17/21 13:44 68 18 09/17/21 11:32 36.8 C 61 18 111/63 09/17/21 10:05 70 18 Pulse Ox 09/17/21 19:40 94 09/17/21 19:29 93 09/17/21 16:00 09/17/21 14:41 91 09/17/21 13:44 92 09/17/21 11:32 89 L 09/17/21 10:05 93
[2021-09-18] MEDS: PIPERACILLIN/TAZOBACTAM 3.375 GM in DEXTROSE 5% 100 ML IV SCH (05:52)
[2021-09-18] MEDS: LEVOTHYROXINE SODIUM 125 MCG TABLET PO SCH (05:52)
[2021-09-18] MEDS: FORMOTEROL 20 MCG/2 ML VIAL NEB SCH (07:19)
[2021-09-18] MEDS: BUDESONIDE 0.5 MG/2 ML VIAL (PULMICORT) INH SCH (07:19)
[2021-09-18] MEDS: guaiFENesin 600 MG TABCR PO SCH (08:29)
[2021-09-18] MEDS: APIXABAN 5 MG TABLET PO SCH (08:29)
[2021-09-18] MEDS: METOPROLOL SUCC 25MG EXT REL TAB PO SCH (08:29)
[2021-09-18] MEDS: PANTOprazole 40 MG TAB PO SCH (08:30)
[2021-09-18] MEDS: BACITRACIN OINT 15 GM TUBE TOP SCH (08:30)
[2021-09-18] MEDS: CLOPIDOGREL BISULFATE 75 MG TAB PO SCH (08:30)
[2021-09-18] MEDS: DOXYCYCLINE HYCLATE 100 MG CAP PO SCH (09:58)
--- NOTE | 2021-09-18 11:59 | Discharge Summary ---
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 Other past medical hx includes COPD, CAD s/p CABG, SSS s/p PPM, PVD s/p surgery, HTN, HLD, history of CVA, hypothyroidism, CKD, chronic anemia who presents with increased in sputum production associated with generalized ill feeling over past few months. He has previously followed with [facility] for trachea. Pt had his daughter provide the history. He has increased shortness of breath with minimal ADLs, and when walking finds that he is needing to sit down and catch his breath more often, he is coughing with green mucous expectorant through the tracheostomy, and his uses suction out of the trache about 10 times daily due to increased secretions. Pt also has been having issues with sleeping and never feels rested. Decreased appetite in the past week. He has had watery diarrhea x 3 days. Pt has recently completed a course of Augmentin x 7 days for issues with increased shortness of breath, increased secretions from the trache, and finished this course today. He was not on a prednisone rescue pack during this time. Pt has been using nebulizer, chlorahexidine rinses orally, and saline nebs routinely in the past few days. He only took his amlodipine and levothyroxine this morning. Admission Exam Per Admitting Provider General: awake, alert, no apparent distress Head: Normocephalic, atraumatic ENT: PERRL, EOMI, no pharyngeal exudate, mucous membranes moist, + trache in place, no speaking valve so difficulty with speech Chest: Clear to auscultation, on room air, no adventitious breath sounds Cardiac: Regular rate and rhythm, no murmur, no JVD, normal peripheral pulses, good capillary refill Abdominal: NABS x 4 quadrants, soft, nondistended, nontender to palpation, no rebound or guarding Extremities: Normal inspection, no peripheral edema or erythema, calfs nontender to palpation Psych: Normal mood and affect Neuro: AAO x 3, strength intact bilaterally and rated 5/5, no motor deficits, speech is clear, no peripheral sensory deficits Principal Diagnosis Multifocal PNA due to aspiration Discharge Exam General: Sitting comfortably in chair- able to speak few words from the TEP, not in distress, on room air HEENT: EOMI, ROSEANNE, MMM, TEP in place Chest: Fair breath sounds bilaterally without wheezes or crackles CVS: Regular rate and rhythm, normal heart sounds, no murmur Abdomen: Soft, non tender, not distended, normal bowel sounds Neuro: Awake, alert, oriented, conversing well, non focal Extremities: No cyanosis, clubbing or edema Discharge Data Allergies Allergy/AdvReac Type Severity Reaction Status Date / Time rosuvastatin [From Crestor] Allergy Unknown Unknown Verified 09/13/21 18:03 Consultations 09/13/21 16:24 ED Decision to Admit Stat 09/13/21 19:55 Consult Pulmonology Routine 09/14/21 18:16 Consult Otolaryngology (Head and Neck) Routine Ordered Studies 09/13/21 13:32 CT angio chest PE protocol Stat 09/16/21 13:30 FL video swallow Routine Laboratory Results WBC 8.02 K/uL (4.8-10.8) 09/16/21 08:24 RBC 4.04 M/uL (4.7-6.1) L 09/16/21 08:24 Hgb 11.8 g/dL (14.0-18.0) L 09/16/21 08:24 Hct 36.6 % (42-52) L 09/16/21 08:24 MCV 90.6 fL (80-100) 09/16/21 08:24 MCH 29.2 pg (25-34) 09/16/21 08:24 MCHC 32.2 g/dL (32-36) 09/16/21 08:24 RDW Std Deviation 46.2 fL (36.4-46.3) 09/16/21 08:24 RDW Coeff of Sharda 14.0 % (11.5-14.5) 09/16/21 08:24 Plt Count 401 K/uL (130-400) H 09/16/21 08:24 MPV 9.0 fL (7.4-10.4) 09/16/21 08:24 Immature Gran % (Auto) 0.1 % 09/15/21 07:21 Neut % (Auto) 61.5 % 09/15/21 07:21 Lymph % (Auto) 20.7 % 09/15/21 07:21 Meagher % (Auto) 8.7 % 09/15/21 07:21 Eos % (Auto) 8.5 % 09/15/21 07:21 Baso % (Auto) 0.5 % 09/15/21 07:21 Neut # (Auto) 5.25 K/uL (1.4-6.5) 09/15/21 07:21 Lymph # (Auto) 1.76 K/uL (1.2-3.4) 09/15/21 07:21 Meagher # (Auto) 0.74 K/uL (0.11-0.59) H 09/15/21 07:21 Eos # (Auto) 0.72 K/uL (0-0.5) H 09/15/21 07:21 Baso # (Auto) 0.04 K/uL (0-0.2) 09/15/21 07:21 Immature Gran # (Auto) 0.01 K/uL (0.00-0.02) 09/15/21 07:21 PT 12.1 Seconds (9.0-12.0) H 09/13/21 13:05 INR 1.1 (0.9-1.1) 09/13/21 13:05 APTT 35.9 Seconds (21.0-31.0) H 09/13/21 13:05 PTT Ratio 1.3 09/13/21 13:05 Sodium 137 mmol/L (136-145) 09/16/21 08:24 Potassium 4.1 mmol/L (3.5-5.1) 09/16/21 08:24 Chloride 102 mmol/L (98-107) 09/16/21 08:24 Carbon Dioxide 27 mmol/L (21-32) 09/16/21 08:24 Anion Gap 8 (3-11) 09/16/21 08:24 BUN 9 mg/dl (6-23) 09/16/21 08:24 Creatinine 1.17 mg/dl (0.6-1.4) 09/17/21 07:55 Est Cr Clr Drug Dosing 59.2 ml/min 09/17/21 07:55 Est GFR ( Amer) 66.9 ml/min 09/17/21 07:55 Est GFR (Non-Af Amer) 57.7 ml/min 09/17/21 07:55 BUN/Creatinine Ratio 7.8 (10-20) L 09/16/21 08:24 Glucose 115 mg/dl (70-99(Fasting)) H 09/16/21 08:24 Calcium 8.8 mg/dl (8.5-10.1) 09/16/21 08:24 Magnesium 2.0 mg/dl (1.7-2.4) 09/13/21 13:05 Total Bilirubin 0.5 mg/dl (0.2-1.0) 09/13/21 13:05 AST 43 U/L (13-39) H 09/13/21 13:05 ALT 48 U/L (7-52) 09/13/21 13:05 Alkaline Phosphatase 89 U/L (34-104) 09/13/21 13:05 Troponin I High Sens 11.2 pg/ml (0-20) 09/13/21 13:05 Total Protein 7.8 gm/dl (6.0-8.3) 09/13/21 13:05 Albumin 3.7 gm/dl (3.4-5.0) 09/13/21 13:05 Globulin 4.1 gm/dl (2.5-4.0) H 09/13/21 13:05 Albumin/Globulin Ratio 0.9 (0.9-2) 09/13/21 13:05 Procalcitonin 0.08 ng/ml (0-0.5) 09/13/21 13:05 TSH 1.356 uIu/ml (0.300-4.500) 09/13/21 13:05 Urine Color Dark Yellow 09/13/21 14:12 Urine Appearance Clear (Clear) 09/13/21 14:12 Urine pH 6.0 (4.5-7.5) 09/13/21 14:12 Ur Specific [place] 1.024 (1.000-1.030) 09/13/21 14:12 Urine Protein 1+ (Negative) H 09/13/21 14:12 Urine Glucose (UA) Negative (Negative) 09/13/21 14:12 Urine Ketones Trace (Negative) H 09/13/21 14:12 Urine Blood Negative (Negative) 09/13/21 14:12 Urine Nitrite Negative (Negative) 09/13/21 14:12 Urine Bilirubin Negative (Negative) 09/13/21 14:12 Urine Urobilinogen Negative (Negative) 09/13/21 14:12 Ur Leukocyte Esterase Negative (Negative) 09/13/21 14:12 Urine WBC (Auto) 1-5 /hpf (0-5) 09/13/21 14:12 Urine RBC (Auto) 10-30 /hpf (0-4) H 09/13/21 14:12 U Hyaline Cast (Auto) 10-30 /lpf (0-5) H 09/13/21 14:12 U Epithel Cells (Auto) 20-30 /lpf (0-5) H 09/13/21 14:12 Urine Bacteria (Auto) Negative (Negative) 09/13/21 14:12 Urine Crystals Calcium Oxalate (None Prsent) A 09/13/21 14:12 Nasal Screen MRSA (PCR) Negative (Negative) 09/13/21 20:40 Urine Legionella Ag SEE NOTE 09/14/21 Unknown SARS-CoV-2, RNA, NAAT NEGATIVE (NEGATIVE) 09/13/21 16:37 Impressions Chest CTA 09/13/21 13:32 CT ANGIOGRAPHY OF THE CHEST, PULMONARY EMBOLUS PROTOCOL CLINICAL HISTORY: Shortness of breath, weak, tracheostomy secretions increased. COMPARISON STUDY: Chest CT December 05, 2019. Chest radiograph November 12, 2020. TECHNIQUE: Following IV administration of 120 mL of Optiray, helical axial images of the chest were obtained utilizing the pulmonary embolus protocol. Maximal intensity projections and sagittal and coronal reformats were viewed on an independent 3D workstation. IV contrast was administered without complication. Automated exposure control was utilized for the study. A dose lowering technique was utilized adhering to the principles of ALARA. CT DOSE: 622.81 mGycm FINDINGS: No pulmonary emboli are identified. There is no thoracic aortic dissection. Median sternotomy wires are noted as well as postoperative findings from bypass grafting. Size of the heart is normal. There is no pericardial effusion. There is moderate coronary artery calcification. Small hiatal hernia is present. Tracheostomy is noted. Diffuse bronchial wall thickening is present. Scattered secretions within the airways are present. Multifocal tree-in-bud nodules are noted throughout the lungs. Scattered small irregular nodular opacities are also likely infectious in etiology. An 8 mm subpleural nodule within the superior segment of the left lower lobe on image 211 of 206 has minimally increased in size since prior exam. This is probably benign. There is no pneumothorax or pleural effusion. There is no cavitation. Water attenuation lesions within the upper pole of the kidneys reflect cysts. 1.4 cm lesion within the upper pole of the right kidney measures above water attenuation. This is indeterminate. However, this is similar in size to CT of January 16, 2020. IMPRESSION: 1. No pulmonary emboli identified. 2. Moderate multifocal tree-in-bud and small nodular airspace opacities throughout the lungs. The findings favor an infectious process. Aspiration pneumonitis is also within the differential. 3. Diffuse bronchial wall thickening. 4. 8 mm subpleural nodule within the left lower lobe. Given relative stability, this is likely benign. 5. Small hiatal hernia. ACT 112: Negative or not required by law. Electronically signed by: Russ Herzog M.D. 09/13/2021 4:05 PM Videofluoroscopic Swallow 09/16/21 13:30 MODIFIED BARIUM SWALLOW CLINICAL HISTORY: r/o leak from TEP COMPARISON STUDY: Modified barium swallow March 25, 2016. FLUOROSCOPY TIME: 1.2 minutes. TECHNIQUE: A modified barium swallow was performed in conjunction with Speech Pathology. The patient ingested varying consistencies of barium containing material. Video fluoroscopy was performed. FINDINGS: The patient drank thin and mildly thick liquids from cup in single and sequential swallows. This evaluation was performed to assess for a leak at the tracheoesophageal puncture. The fluoroscopic images did not demonstrate the leak however a leak was visualized by the Speech pathologist. IMPRESSION: Modified barium swallow performed to assess for tracheoesophageal puncture leak. A leak was visualized by Speech pathology although is not well depicted on these images. Please see the report by the Speech pathologist report for details. ACT 112: Negative or not required by law. Electronically signed by: Russ Herzog M.D. 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 He follows with [facility] for tracheal care, last seen by Dr Bravo 4 weeks back for TEP adjustment. He recently completed OP augmentin for a week. Multifocal PNA, likely from aspiration through his TEP - CTA chest with no PE but multifocal tree-in-bud and small nodular airspace opacities favoring pneumonia, likely aspiration pneumonia from his TEP - WBC 14-> now normal, procal negative, MRSA nare negative. sputum clx negative. - s/p zosyn and doxy-> being changed to augmentin at discharge for 3 more days. - Seen by pulm and ENT- recommendations noted - S/p videofluoroscopic swallow study which today showed barium leak from his TEP. - Per ENT- The two options to REDUCE or ELIMINATE the TEP LEAKAGE are to: 1) Monitor the patient's diet and REDUCE LIQUID ingestion - which would "LEAK" easier - than say having Puree or Thickened Soft diet. or to 2) Keep the patient NPO and convert to NG tube Feedings until there is further healing around the Annabella-Nazario/TEP Device. 3) REMOVE the Annabella- Nazario/TEP Device, Place NPO and convert to NG Tube Feedings and just allow the man-made Tracheo-Esophageal Fistula for Speech to permanently close. 4) RE-SIZE the current Annabella-Nazario/TEP Device - to get to one that actually FITS the Fistula and REDUCE / PREVENT "LEAKS". The Patient does NOT want to remove the Annabella-Nazario/TEP Device as he very much wants to continue communication / socialization. In that case, it is best to leave the Annabella-Nazario Device in place and chose one of the Options of #1, #2 or #4. The patient hopes to Keep the Current Device in place and get it "RE-Sized" on his Next Visit to [facility]-Head & Neck Surgery Service. - F/u with [facility] ENT for further management of TEP Laryngeal cancer s/p tracheostomy in Mar 2019- hx of radiation, no chemotherapy - Follows with ENT TEP in place- seen by ENT who evaluated TEP and found some granulation, likely the cause of minor bleed but no intervention needed per ENT. - S/p videofluoroscopic swallow study which today showed barium leak from his TEP. Plan as above. Hypoxia- resolved, now in room air COPD- no wheezes, no exacerbation, no need for steroids. Continue inhalers CAD s/p CABG x2 [facility]- no issues currently. On plavix, toprol. Follow with [facility] cardiology as outpatient - Pt is currently on plavix and eliquis - appears Eliquis is onboard s/p CEA with CVA since Apr 2020 - pt is unsure of the reason why he is on eliquis. No current issues with bleeding - In February 2018 patient diagnosed with TIA. Found to have B/L carotid stenosi s, worse than prior studies. He underwent right CEA in February 2018 and left CEA in May 2018. HTN- on toprol, norvasc SSS s/p dual chamber pacemaker May 2017- Recently eval by Dr. Garcia 06/26/21 and battery reserve was normal, no issues currently Hypothyroid- continue synthroid He is comfortable and stable for discharge. He says he feels much better and ready to go home. He says he will call ENT as soon as possible for follow up. Reviewed discharge plan along with the aspiration precautions and oral hygiene; as well as when to return to ED. He did not want me to call his to give an update. Total Time Total Time Spent Total Time Spent (In Minutes): 45 Discharge Plan Discharge Items Patient Disposition: Home - Self-Care Reason For Visit: PNEUMONIA Discharge Diagnosis: Aspiration pneumonia Activity: Resume your previous activity Non-emergency contact: Primary Care Provider Call non-emergency contact if: you have any medication questions, your symptoms worsen and you have a fever Follow-up/Referrals: Neto Rasheed MD [Primary Care Provider] - (Date & Time 09/24/2021 2:40 PM Provider Neto Rasheed MD Department General Internal Medicine [facility] ) Diet: Regular Addtl Attending Provider Instructions: Continue augmentin for 3 more days Follow up with your ENT doctor at [facility] for further management of your TEP device as it leaks and can cause recurrent aspiration pneumonia Per ENT doctor, the options to REDUCE or ELIMINATE the TEP LEAKAGE are to: 1) Monitor your diet and REDUCE LIQUID ingestion - which would "LEAK" easier - than say having Puree or Thickened Soft diet. 2) Keep you NPO and convert to NG tube Feedings until there is further healing around the Annabella-Nazario/TEP Device. 3) REMOVE the Annabella-Nazario/TEP Device, Place NPO and convert to NG Tube Feedings and just allow the man-made Tracheo-Esophageal Fistula for Speech to permanently close. 4) RE-SIZE the current Annabella-Nazario/TEP Device - to get to one that actually FITS the Fistula and REDUCE / PREVENT "LEAKS" You did not want the TEP out or being NPO. Recommend puree or thickened soft diet (#1) as per ENT recommendation. Good oral hygiene as discussed at bedside If you have fever, chills or increased respiratory symptoms, call your family doctor or come to the Emergency. Pending Studies at Discharge: No Stand-Alone Forms: My [facility], Smoking Cessation Medications and DC Order Prescriptions: New doxycycline hyclate 100 mg Capsule 100 mg PO BID@1000,2200 Qty: 6 RF: 0 guaifenesin [Mucinex] 600 mg Tablet Extended Release 12hr 600 mg PO Q12 5 Days Qty: 10 RF: 0 Continued omeprazole 20 mg tablet,delayed release (DR/EC) 20 mg PO QAM RF: 0 ipratropium-albuterol 0.5 mg-3 mg(2.5 mg base)/3 mL solution for nebulization 3 ml INH QID PRN (Reason: Shortness Of Breath Or Wheezing) RF: 0 paroxetine HCl [Paxil] 20 mg tablet 20 mg PO HS RF: 0 levothyroxine 125 mcg tablet 125 mcg PO QAM RF: 0 indomethacin 25 mg capsule 1 cap PO TID MDD Gout PRN (Reason: Pain) RF: 0 nitroglycerin 0.4 mg tablet, sublingual 1 tab Sublingual UD PRN (Reason: Chest Pain) RF: 0 albuterol sulfate 2.5 mg /3 mL (0.083 %) Solution For Nebulization 2.5 mg INHALATION QID PRN (Reason: Shortness Of Breath Or Wheezing) RF: 0 clopidogrel 75 mg tablet 75 mg PO QAM RF: 0 amlodipine 5 mg tablet 5 mg PO HS RF: 0 atorvastatin [Lipitor] 40 mg tablet 40 mg PO HS RF: 0 fluorouracil 5 % Cream 1 applic TOPICAL DIRECTED RF: 0 bacitracin 500 unit/gram Ointment 1 applic TOPICAL DIRECTED RF: 0 acetaminophen [Tylenol Extra Strength] 500 mg Tablet 1,000 mg PO QID PRN (Reason: Fever Or Pain) RF: 0 budesonide [Pulmicort] 0.5 mg/2 mL Suspension For Nebulization 0.5 mg INHALATION DAILY RF: 0 hydroxyzine HCl 25 mg tablet 50 mg PO HS RF: 0 metoprolol succinate 25 mg tablet extended release 24 hr 25 mg PO DAILY RF: 0 sodium chloride 0.9 % solution for nebulization 0 ml INHALATION DIRECTED RF: 0 Eliquis 5 mg tablet 5 mg PO BID RF: 0 amoxicillin-pot clavulanate 875-125 mg tablet 1 tab PO AMHS 3 Days Qty: 6 RF: 0 polyethylene glycol 3350 [Miralax] 17 gram powder in packet 17 g PO DAILY PRN (Reason: Constipation) RF: 0 [place] Magnair Starter 25 mcg/mL solution for nebulization 25 mcg inhalation BID RF: 0 Discharge Orders: Discharge Order (Routine); Ordered 09/18/21 Ordered By: Medardo Jenkins Admission Data Admit Date/Time: 09/13/21 17:26 Attending Provider: Medardo Jenkins Admit Provider: [place] High I. Primary Care Provider: Neto Rasheed Other Providers: [place] [facility] I. ; Avelino Vogel ; Wilman Guzman Other Interventions: Discharge Summary Assessment (RN) Last Done: 09/18/21 11:26
== END 2021-09-18 12:20 | disposition home or self-care (01) | DRG 919 ==
LOC: ED 12:50 → 2N 17:26 → SUATTDRO 17:26 → 2N 19:32

== ENCOUNTER 2021-09-26 13:13 | Observation (INO) ==
--- NOTE | 2021-09-26 15:12 | Emergency Department Note ---
Impression & Plan Aspiration pneumonia, Acute dyspnea ED Provider Note NAME: ALEXANDRA PETERS AGE: 81 SEX: M : 1940 ARRIVES VIA: Walk-In INFORMANT: Patient, ED PROVIDER(S): Louis Laguerre MD Chief Complaint: Shortness of breath HPI: Patient presents due to concern for shortness of breath which is been ongoing atop approximately 1 week and is gotten progressively worse. The patient is also had a and intermittently productive cough with occasionally discolored sputum. Patient is a former smoker but has not smoked since 1985. Patient does have a tracheostomy in place secondary to history of esophageal cancer currently in remission. Patient denies any chest pains but has had the exertional dyspnea. Patient denies any orthopnea or leg swelling. Patient was admitted to the hospital for aspiration pneumonia 2 weeks prior and states that this feels similar. Patient does think that he has likely aspirated. Patient was noted to be hypoxemic at 84% at home. They have been trying some trach suctioning but without improvement in symptoms. ROS: See HPI for pertinent positives and negatives. A total of 10 systems were reviewed and otherwise negative. Past medical history: See below Surgical history: See below Social history: See below Physical Exam: GENERAL: NAD, non-toxic. EYE EXAM: Normal conjunctiva. PERRL, no anisocoria and EOM's grossly intact w/o pain. OROPHARYNX: Moist mucus membranes. Grossly normal dentition. NECK: Tracheostomy in place, supple, no nuchal rigidity, no adenopathy, non-tender. No signs of meningismus. LUNGS: Coarse sounds throughout. Normal chest wall mechanics. HEART: NSR, no MRG. ABDOMEN: Abdomen soft, non-tender, normo-active bowel sounds, no masses, no rebound or guarding. BACK: No CVA TTP. SKIN: No rashes and no bruising. UPPER EXTREMITIES: Upper extremities are grossly normal. LOWER EXTREMITIES: Grossly normal, no edema. Negative Homans' sign bilaterally NEURO EXAM: A&O x3, cranial nerves II-XII grossly intact, normal speech, moves all 4 extremities on command w/o issue. Differential diagnoses: Reactive airway disease, pneumonia, pneumothorax, COPD, CHF, infections, cardiac ischemia, pulmonary embolism, musculoskeletal, gastrointestinal, as well as other pathologies. Course: Patient was seen and evaluated the bedside. Full history physical exam was performed. EKG interpreted by me A paced rhythm, rate of 70, normal axis, prolonged OH. Imaging Studies: See Below Cardiac monitoring: An order was placed for continuous cardiac monitoring. The monitor shows a rate of 65 with paced rhythm. MDM: Patient was seen due to concern for shortness of breath. Blood work was obtained. Bood clx's obtained, sputum clx also obtained. I did speak with charge nurse in order to talk with respiratory to do a trach collar nebulizer treatment as well as deep suctioning. The patient was started on Zosyn and doxy. Patient does have a white count of 13 with a hemoglobin of 12. The patient's kidney function is unremarkable. Patient's electrolytes grossly unremarkable. EKG with no obvious changes. Chest x-ray does not show any obvious disease at this time. However, given the patient's increased sputum production, white counts and oxygen requirement do believe the patient would benefit from inpatient treatment at this time. I did speak with the on-call hospitalist Dr. Jenkins and the patient was admitted to the medicine service. Past Med/Surg History Medical History Acute hypoxemic respiratory failure Anxiety Aspiration pneumonia Benign neoplasm of colon CAD (coronary artery disease) "1995 - CABG x 2" Cardiac pacemaker in situ 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 LAST CHECKED REMOTELY 05/31/18 Carotid artery stenosis with cerebral infarction over 8 weeks ago The patient presented to [facility] ED on 03/26/18 with expressive aphasia, left upper extremity numbness, left lower extremity weakness. Symptoms were resolving by the time the patient arrived in the ED. 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 Neck pain OCCASIONAL Obesity JAIME on CPAP no longer on CPAP post tracheostomy Peripheral eosinophilia Pharyngocutaneous fistula Sleep apnea CPAP Surgical History History of bronchoscopy History of carotid endarterectomy RIGHT (MARCH 2018) History of cataract extraction with lens replacement cataract extraction with IOL implant and LRI left eye - 05/02/12 History of colonoscopy with polypectomy History of coronary artery bypass graft X2 VESSEL 1995 -- [facility] History of laryngectomy History of rotator cuff surgery Right - 2009 History of tonsillectomy Hx of laryngectomy Family History Mother Essential hypertension Stroke Sister Cancer Breast cancer Daughter Cancer Colon cancer Social History Smoking Status: Never smoker Tobacco Type: Cigarettes Second Hand Exposure: No; Hx Alcohol Use: No Hx Substance Use: No Preferred Language: Upper Sorbian Communication Ability: Effective Visual Impairment: No Limitations Can Maker Required: No Beliefs That Will Affect Care: None marital status: Current Living Situation: Spouse current occupational status: retired Feels Safe at Home: Yes Assistive Devices: Glasses Allergies Allergies Allergy/AdvReac Type Severity Reaction Status Date / Time rosuvastatin [From Crestor] Allergy Unknown Unknown Verified 09/26/21 17:07 Home Meds Home Medications Medication Instructions Recorded Confirmed indomethacin 25 mg capsule 1 cap PO TID PRN MDD Gout 03/25/18 09/26/21 levothyroxine 125 mcg tablet 125 mcg PO QAM 03/25/18 09/26/21 nitroglycerin 0.4 mg sublingual 1 tab SUBLINGUAL UD PRN 03/25/18 09/26/21 tablet paroxetine HCl 20 mg tablet (Paxil) 20 mg PO HS 03/25/18 09/26/21 clopidogrel 75 mg tablet 75 mg PO QAM 06/03/18 09/26/21 ipratropium 0.5 mg-albuterol 3 mg 3 ml INH QID PRN 06/09/19 09/26/21 (2.5 mg base)/3 mL nebulization soln albuterol sulfate 2.5 mg INHALATION QID PRN 08/19/19 09/26/21 omeprazole 20 mg tablet,delayed 20 mg PO QAM 09/06/19 09/26/21 release amlodipine 5 mg tablet 5 mg PO HS 09/17/19 09/26/21 atorvastatin 40 mg tablet (Lipitor) 40 mg PO HS 01/13/20 09/26/21 glycopyrrolate 25 mcg/mL solution 25 mcg INHALATION BID 11/02/20 09/26/21 for nebulization-nebulizer,accessor. 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) polyethylene glycol 3350 17 gram 17 g PO DAILY PRN 11/02/20 09/26/21 oral powder packet (Miralax) acetaminophen 500 mg tablet 1,000 mg PO QID PRN 09/13/21 09/26/21 (Tylenol Extra Strength) apixaban 5 mg tablet (Eliquis) 5 mg PO BID 09/13/21 09/26/21 bacitracin 500 unit/gram topical 1 applic TOPICAL DIRECTED 09/13/21 09/26/21 ointment budesonide 0.5 mg/2 mL suspension 0.5 mg INHALATION DAILY 09/13/21 09/26/21 for nebulization (Pulmicort) fluorouracil 5 % topical cream 1 applic TOPICAL DIRECTED 09/13/21 09/26/21 hydroxyzine HCl 25 mg tablet 50 mg PO HS 09/13/21 09/26/21 metoprolol succinate 25 mg 25 mg PO DAILY 09/13/21 09/26/21 tablet,extended release 24 hr sodium chloride 0.9 % for 0 ml INHALATION DIRECTED 09/13/21 09/26/21 nebulization Results & Data (ED) Vital Signs Vital Signs - 24 hr 09/26/21 13:33 09/26/21 14:46 09/26/21 16:07 Temperature 36.6 C Temperature Source Temporal Artery Scan Pulse Rate 68 Pulse Rate [Finger] 67 60 Pulse Rhythm Regular Pulse Rhythm [Finger] Regular Pulse Strength Normal Respiratory Rate 20 22 20 Respiratory Effort / Characteristics Non-Labored Spontaneous Spontaneous Spontaneous Respiratory Depth Normal Respiratory Pattern Regular Regular Blood Pressure 126/66 Blood Pressure Mean 86 Blood Pressure Position Sitting Pulse Oximetry 90 92 92 Oxygen Delivery Method Room Air Room Air Room Air Sepsis Recent Fever Within 48 Hours No Sepsis New/Unexplained Change in Mental Status No Sepsis Action Taken by Nursing No Action Required Home Medications Current Medication List: was personally reviewed by me Laboratory Data Attestation: I reviewed the patient's lab results. Result diagrams: 09/26/21 14:50 09/26/21 16:32 Lab Results 09/26/21 09/26/21 09/26/21 Range/Units 14:50 14:50 14:50 WBC 13.53 H (4.8-10.8) K/uL RBC 4.40 L (4.7-6.1) M/uL Hgb 12.9 L (14.0-18.0) g/dL Hct 39.2 L (42-52) % MCV 89.1 (80-100) fL MCH 29.3 (25-34) pg MCHC 32.9 (32-36) g/dL RDW Std Deviation 46.3 (36.4-46.3) fL RDW Coeff of Sharda 14.2 (11.5-14.5) % Plt Count 450 H (130-400) K/uL MPV 9.6 (7.4-10.4) fL Immature Gran % (Auto) 0.3 % Neut % (Auto) 73.7 % Lymph % (Auto) 12.9 % [place] % (Auto) 7.8 % Eos % (Auto) 5.0 % Baso % (Auto) 0.3 % Neut # (Auto) 9.98 H (1.4-6.5) K/uL Lymph # (Auto) 1.74 (1.2-3.4) K/uL [place] # (Auto) 1.05 H (0.11-0.59) K/uL Eos # (Auto) 0.68 H (0-0.5) K/uL Baso # (Auto) 0.04 (0-0.2) K/uL Immature Gran # (Auto) 0.04 H (0.00-0.02) K/uL PT 12.2 H (9.0-12.0) Seconds INR 1.2 H (0.9-1.1) APTT 34.7 H (21.0-31.0) Seconds PTT Ratio 1.3 Sodium TNP Potassium TNP Chloride 99 (98-107) mmol/L Carbon Dioxide 27 (21-32) mmol/L Anion Gap TNP BUN 15 (6-23) mg/dl Creatinine 1.05 (0.6-1.4) mg/dl Est Cr Clr Drug Dosing 65.7 ml/min Est GFR ( Amer) 76.2 ml/min Est GFR (Non-Af Amer) 65.8 ml/min BUN/Creatinine Ratio 14.3 (10-20) Glucose 86 (70-99(Fasting)) mg/dl Calcium 9.3 (8.5-10.1) mg/dl Magnesium TNP Total Bilirubin 0.8 (0.2-1.0) mg/dl AST TNP ALT 23 (7-52) U/L Alkaline Phosphatase 87 (34-104) U/L Troponin I High Sens 13.2 (0-20) pg/ml Total Protein 8.2 (6.0-8.3) gm/dl Albumin 3.8 (3.4-5.0) gm/dl Globulin 4.4 H (2.5-4.0) gm/dl Albumin/Globulin Ratio 0.9 (0.9-2) Procalcitonin SARS-CoV-2, RNA, NAAT (NEGATIVE) 09/26/21 09/26/21 09/26/21 Range/Units 14:50 16:28 16:32 WBC (4.8-10.8) K/uL RBC (4.7-6.1) M/uL Hgb (14.0-18.0) g/dL Hct (42-52) % MCV (80-100) fL MCH (25-34) pg MCHC (32-36) g/dL RDW Std Deviation (36.4-46.3) fL RDW Coeff of Sharda (11.5-14.5) % Plt Count (130-400) K/uL MPV (7.4-10.4) fL Immature Gran % (Auto) % Neut % (Auto) % Lymph % (Auto) % [place] % (Auto) % Eos % (Auto) % Baso % (Auto) % Neut # (Auto) (1.4-6.5) K/uL Lymph # (Auto) (1.2-3.4) K/uL [place] # (Auto) (0.11-0.59) K/uL Eos # (Auto) (0-0.5) K/uL Baso # (Auto) (0-0.2) K/uL Immature Gran # (Auto) (0.00-0.02) K/uL PT (9.0-12.0) Seconds INR (0.9-1.1) APTT (21.0-31.0) Seconds PTT Ratio Sodium 136 Potassium 4.0 Chloride (98-107) mmol/L Carbon Dioxide (21-32) mmol/L Anion Gap BUN (6-23) mg/dl Creatinine (0.6-1.4) mg/dl Est Cr Clr Drug Dosing ml/min Est GFR ( Amer) ml/min Est GFR (Non-Af Amer) ml/min BUN/Creatinine Ratio (10-20) Glucose (70-99(Fasting)) mg/dl Calcium (8.5-10.1) mg/dl Magnesium 1.8 Total Bilirubin (0.2-1.0) mg/dl AST 19 ALT (7-52) U/L Alkaline Phosphatase (34-104) U/L Troponin I High Sens (0-20) pg/ml Total Protein (6.0-8.3) gm/dl Albumin (3.4-5.0) gm/dl Globulin (2.5-4.0) gm/dl Albumin/Globulin Ratio (0.9-2) Procalcitonin Cancelled SARS-CoV-2, RNA, NAAT NEGATIVE (NEGATIVE) Administered Medications Discontinued Medications Albuterol (Albut/Ipratrop 3mg/0.5mg Neb 3 Ml Vial) 6 ml NEB NOW STA; Protocol Stop: 09/26/21 15:46 Last Admin: 09/26/21 16:07 Dose: 6 ml Documented by: [id number] Doxycycline Hyclate (Doxycycline Hyclate 100 Mg Cap) 100 mg PO NOW STA Stop: 09/26/21 15:47 Last Admin: 09/26/21 16:32 Dose: 100 mg Documented by: [id number] Piperacillin Sod/Tazobactam Sod (Zosyn) 4.5 gm in 120 mls @ 240 mls/hr IV NOW ONE Stop: 09/26/21 16:15 Last Infusion: 09/26/21 17:17 Dose: 0 mls/hr Documented by: [id number] Admin: 09/26/21 16:32 Dose: 240 mls/hr Documented by: [id number] Sodium Chloride (Sodium Chloride 0.65% Na Soln 45 Ml ([place])) 2 sprays NA NOW ONE Stop: 09/26/21 16:50 Last Admin: 09/26/21 17:23 Dose: Not Given Documented by: [id number] Imaging Data Radiologist's Impression: Chest X-Ray 09/26/21 13:58 XR chest 1V portable CLINICAL HISTORY: SOB. COMPARISON STUDY: 11/02/2020 TECHNIQUE: 1 view of the chest FINDINGS: Single frontal view of the chest demonstrates the cardiomediastinal silhouette to be within normal limits. Permanent cardiac pacer is in place. There is hyperinflation of the lungs with attenuation of the pulmonary vasculature peripherally characteristic of underlying chronic obstructive pulmonary disease. The lungs are clear of alveolar opacities. There is no evidence for pleural effusion. There is no evidence for vascular congestion. There is no acute osseous pathology. The patient is status post right mastectomy IMPRESSION: 1. No acute cardiopulmonary disease. 2. Underlying COPD ACT 112: Negative or not required by law. Electronically signed by: Amrik Beckford M.D. 09/26/2021 4:46 PM Discharge Plan Visit Data Chief Complaint: Shortness of Breath/Dyspnea Stated Complaint: SOB ED Provider: Louis Laguerre Discharge Problem: Aspiration pneumonia, Acute dyspnea Forms Stand Alone Forms: [facility] Index[facility] Prescriptions Prescriptions: No Action omeprazole 20 mg tablet,delayed release (DR/EC) 20 mg PO QAM RF: 0 ipratropium-albuterol 0.5 mg-3 mg(2.5 mg base)/3 mL solution for nebulization 3 ml INH QID PRN (Reason: Shortness Of Breath Or Wheezing) RF: 0 paroxetine HCl [Paxil] 20 mg tablet 20 mg PO HS RF: 0 levothyroxine 125 mcg tablet 125 mcg PO QAM RF: 0 indomethacin 25 mg capsule 1 cap PO TID MDD Gout PRN (Reason: Pain) RF: 0 nitroglycerin 0.4 mg tablet, sublingual 1 tab Sublingual UD PRN (Reason: Chest Pain) RF: 0 albuterol sulfate 2.5 mg /3 mL (0.083 %) Solution For Nebulization 2.5 mg INHALATION QID PRN (Reason: Shortness Of Breath Or Wheezing) RF: 0 clopidogrel 75 mg tablet 75 mg PO QAM RF: 0 amlodipine 5 mg tablet 5 mg PO HS RF: 0 atorvastatin [Lipitor] 40 mg tablet 40 mg PO HS RF: 0 fluorouracil 5 % Cream 1 applic TOPICAL DIRECTED RF: 0 bacitracin 500 unit/gram Ointment 1 applic TOPICAL DIRECTED RF: 0 acetaminophen [Tylenol Extra Strength] 500 mg Tablet 1,000 mg PO QID PRN (Reason: Fever Or Pain) RF: 0 budesonide [Pulmicort] 0.5 mg/2 mL Suspension For Nebulization 0.5 mg INHALATION DAILY RF: 0 hydroxyzine HCl 25 mg tablet 50 mg PO HS RF: 0 metoprolol succinate 25 mg tablet extended release 24 hr 25 mg PO DAILY RF: 0 sodium chloride 0.9 % solution for nebulization 0 ml INHALATION DIRECTED RF: 0 Eliquis 5 mg tablet 5 mg PO BID RF: 0 polyethylene glycol 3350 [Miralax] 17 gram powder in packet 17 g PO DAILY PRN (Reason: Constipation) RF: 0 [place] Magnair Starter 25 mcg/mL solution for nebulization 25 mcg inhalation BID RF: 0 Referrals Referrals: Neto Rasheed MD [Primary Care Provider] - Discharge Problem: Aspiration pneumonia Qualifiers: Aspiration pneumonia type: unspecified Laterality: unspecified laterality Lung location: unspecified part of lung Qualified Code(s): J69.0 - Pneumonitis due to inhalation of food and vomit
[2021-09-26 15:33] LABS: INR 1.2 (0.9-1.1); Partial Thromboplastin Ratio 1.3; Partial Thromboplastin Time 34.7 Seconds (21.0-31.0); Prothrombin Time 12.2 Seconds (9.0-12.0)
[2021-09-26 15:39] LABS: Basophils # (auto) 0.04 K/uL (0-0.2); Basophils % (auto) 0.3 %; Eosinophils # (auto) 0.68 K/uL (0-0.5); Hematocrit (blood only) 39.2 % (42-52); Hemoglobin 12.9 g/dL (14.0-18.0); Immature Granulocytes # (auto) 0.04 K/uL (0.00-0.02); Immature Granulocytes % (auto) 0.3 %; Lymphocytes # (auto) 1.74 K/uL (1.2-3.4); Lymphocytes % (auto) 12.9 %; Mean Corpuscular Hemoglobin 29.3 pg (25-34); Mean Corpuscular Hgb Conc 32.9 g/dL (32-36); Mean Corpuscular Volume 89.1 fL (80-100); Mean Platelet Volume 9.6 fL (7.4-10.4); Monocytes # (auto) 1.05 K/uL (0.11-0.59); Monocytes % (auto) 7.8 %; Neutrophils # (auto) 9.98 K/uL (1.4-6.5); Neutrophils % (auto) 73.7 %; Platelet Count 450 K/uL (130-400); RDW Coefficient of Variation 14.2 % (11.5-14.5); RDW Standard Deviation 46.3 fL (36.4-46.3); White Blood Count 13.53 K/uL (4.8-10.8)
[2021-09-26] MEDS ORDERED: ALBUT/IPRATROP 3MG/0.5MG NEB 3 ML VIAL NEB STA (15:45)
[2021-09-26] MEDS ORDERED: PIPERACILLIN/TAZOBACTAM 4.5 GM/120 ML BAG IV ONE (15:46)
[2021-09-26] MEDS ORDERED: DOXYCYCLINE HYCLATE 100 MG CAP PO STA (15:46)
[2021-09-26 15:47] LABS: Troponin I High Sensitivity 13.2 pg/ml (0-20)
[2021-09-26 16:18] LABS: Alanine Aminotransferase 23 U/L (7-52); Albumin Globulin Ratio 0.9 (0.9-2); Albumin Level 3.8 gm/dl (3.4-5.0); Alkaline Phosphatase 87 U/L (34-104); BUN Creatinine Ratio 14.3 (10-20); Bilirubin,Total 0.8 mg/dl (0.2-1.0); Blood Urea Nitrogen 15 mg/dl (6-23); Calcium 9.3 mg/dl (8.5-10.1); Carbon Dioxide 27 mmol/L (21-32); Chloride 99 mmol/L (98-107); Creatinine Clr Calc Pharmacy 65.7 ml/min; Est GFR (African American) 76.2 ml/min; Est GFR (Non-African American) 65.8 ml/min; Globulin 4.4 gm/dl (2.5-4.0); Glucose 86 mg/dl (70-99(Fasting)); Total Protein 8.2 gm/dl (6.0-8.3)
--- NOTE | 2021-09-26 16:28 | Electrocardiogram Report ---
Test Reason : Blood Pressure : / mmHG Vent. Rate : 070 BPM Atrial Rate : 070 BPM P-R Int : 202 ms QRS Dur : 096 ms QT Int : 408 ms P-R-T Axes : 089 080 -28 degrees QTc Int : 440 ms Atrial-paced rhythm Chronic Nonspecific ST and T wave abnormality Abnormal ECG When compared with ECG of 13-SEP-2021 13:04, No significant change Confirmed by Marquise Whittaker ([id number]) on 09/26/2021 4:27:35 PM Referred By: REFERRED SELF Confirmed By:Marquise Whittaker
--- NOTE | 2021-09-26 16:47 | XRay Report ---
XR chest 1V portable CLINICAL HISTORY: SOB. COMPARISON STUDY: 11/02/2020 TECHNIQUE: 1 view of the chest FINDINGS: Single frontal view of the chest demonstrates the cardiomediastinal silhouette to be within normal li mits. Permanent cardiac pacer is in place. There is hyperinflation of the lungs with attenuation of t he pulmonary vasculature peripherally characteristic of underlying chronic obstructive pulmonary dise ase. The lungs are clear of alveolar opacities. There is no evidence for pleural effusion. There is n o evidence for vascular congestion. There is no acute osseous pathology. The patient is status post r ight mastectomy IMPRESSION: 1. No acute cardiopulmonary disease. 2. Underlying COPD ACT 112: Negative or not required by law. Electronically signed by: Amrik Beckford M.D. 09/26/2021 4:46 PM
[2021-09-26] MEDS ORDERED: SODIUM CHLORIDE 0.65% NA SOLN 45 ML (OCEAN) ONE (16:49)
--- NOTE | 2021-09-26 16:53 | History & Physical Report ---
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 Patient was recently admitted 09/13-09/18 for aspiration PNA and was treated with zosyn->Augmentin and was evaluated by ENT and CASTING INSPECTOR at that time- Work up showed aspiration through his TEP at that time and he was to follow with his ENT at [facility]. Suspected recurrent aspiration PNA, through his TEP - Recently admitted for aspiration PNA and treated with zosyn->Augmentin with improvement in symptoms - WBC 13, CXR does not show any acute process similar to last time. Will get CT chest for better evaluation - F/u on sputum clx, blood clx, procal, CRP, WBC. - Continue zosyn/doxy pending clx results, continue hypertonic saline, vest therapy, nebs, IS, flutter valve, mucinex - Patient follows up with [facility] for management of his TEP- last seen on 09/20 with TEP adjusted and botox injected- next appointment on 09/30 for repeat botox injection and evaluation Laryngeal cancer s/p tracheostomy in Mar 2019- hx of radiation, no chemotherapy - Follows with ENT TEP in place-Patient follows up with [facility] for management of his TEP- last seen on 09/20 with TEP adjusted and botox injected- next appointment on 09/30 for repeat botox injection and evaluation - Seen by ENT and CASTING INSPECTOR here during recent admission with videofluorscopic swallow study COPD- no wheezes, no exacerbation, no need for steroids. Continue nebs CAD s/p CABG x2 [facility]- no issues currently. On plavix, toprol. Follow with [facility] cardiology as outpatient - Pt is currently on plavix and eliquis - appears Eliquis is onboard s/p CEA with CVA since Apr 2020 - pt is unsure of the reason why he is on eliquis. No current issues with bleeding - In February 2018 patient diagnosed with TIA. Found to have B/L carotid stenosis, worse than prior studies. He underwent right CEA in February 2018 and left CEA in May 2018. HTN- on toprol, norvasc SSS s/p dual chamber pacemaker May 2017- Recently eval by Dr. 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 Patient was recently admitted 09/13-09/18 for aspiration PNA and was treated with zosyn->Augmentin and was evaluated by ENT and CASTING INSPECTOR at that time- Work up showed aspiration through his TEP at that time and he was to follow with his ENT at [facility]. Patient was seen at [facility] on thursday, his TEP was adjusted, botox was injected and states also had swallow study which did not show leakage. However patient thinks he still has some leakage. He has another appointment with them for Thursday for repeat botox injection. His states that for the past few days he was having increasing shortness of breath and decreased appetite. Bringing yellow phlegm. They tried to suction but not enough coming out. Today his pulse oximeter at home showed 85% saturation and they came to the ED for evaluation. Denies any fever, chills, chest pain, nausea, vomiting. Allergies Allergy/AdvReac Type Severity Reaction Status Date / Time rosuvastatin [From Crestor] Allergy Unknown Unknown Verified 09/26/21 17:07 Home Medications Medication Instructions Recorded Confirmed Type indomethacin 25 mg capsule 1 cap PO TID PRN MDD Gout 03/25/18 09/26/21 History levothyroxine 125 mcg tablet 125 mcg PO QAM 03/25/18 09/26/21 History nitroglycerin 0.4 mg sublingual 1 tab SUBLINGUAL UD PRN 03/25/18 09/26/21 History tablet paroxetine HCl 20 mg tablet (Paxil) 20 mg PO HS 03/25/18 09/26/21 History clopidogrel 75 mg tablet 75 mg PO QAM 06/03/18 09/26/21 History ipratropium 0.5 mg-albuterol 3 mg 3 ml INH QID PRN 06/09/19 09/26/21 History (2.5 mg base)/3 mL nebulization soln albuterol sulfate 2.5 mg INHALATION QID PRN 08/19/19 09/26/21 History omeprazole 20 mg tablet,delayed 20 mg PO QAM 09/06/19 09/26/21 History release amlodipine 5 mg tablet 5 mg PO HS 09/17/19 09/26/21 History atorvastatin 40 mg tablet (Lipitor) 40 mg PO HS 01/13/20 09/26/21 History glycopyrrolate 25 mcg/mL solution 25 mcg INHALATION BID 11/02/20 09/26/21 History for nebulization-nebulizer,accessor. ([facility] Magnair Starter) polyethylene glycol 3350 17 gram 17 g PO DAILY PRN 11/02/20 09/26/21 History oral powder packet (Miralax) acetaminophen 500 mg tablet 1,000 mg PO QID PRN 09/13/21 09/26/21 History (Tylenol Extra Strength) apixaban 5 mg tablet (Eliquis) 5 mg PO BID 09/13/21 09/26/21 History bacitracin 500 unit/gram topical 1 applic TOPICAL DIRECTED 09/13/21 09/26/21 History ointment budesonide 0.5 mg/2 mL suspension 0.5 mg INHALATION DAILY 09/13/21 09/26/21 History for nebulization (Pulmicort) fluorouracil 5 % topical cream 1 applic TOPICAL DIRECTED 09/13/21 09/26/21 History hydroxyzine HCl 25 mg tablet 50 mg PO HS 09/13/21 09/26/21 History metoprolol succinate 25 mg 25 mg PO DAILY 09/13/21 09/26/21 History tablet,extended release 24 hr sodium chloride 0.9 % for 0 ml INHALATION DIRECTED 09/13/21 09/26/21 History nebulization Past Med/Surg History Medical History Acute hypoxemic respiratory failure Anxiety Aspiration pneumonia Benign neoplasm of colon CAD (coronary artery disease) "1995 - CABG x 2" Cardiac pacemaker in situ 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 LAST CHECKED REMOTELY 05/31/18 Carotid artery stenosis with cerebral infarction over 8 weeks ago The patient presented to [facility] ED on 03/26/18 with expressive aphasia, left upper extremity numbness, left lower extremity weakness. Symptoms were resolving by the time the patient arrived in the ED. 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 Neck pain OCCASIONAL Obesity JAIME on CPAP no longer on CPAP post tracheostomy Peripheral eosinophilia Pharyngocutaneous fistula Sleep apnea CPAP Surgical History History of bronchoscopy History of carotid endarterectomy RIGHT (MARCH 2018) History of cataract extraction with lens replacement cataract extraction with IOL implant and LRI left eye - 05/02/12 History of colonoscopy with polypectomy History of coronary artery bypass graft X2 VESSEL 1995 -- [facility] History of laryngectomy History of rotator cuff surgery Right - 2009 History of tonsillectomy Hx of laryngectomy Family History Mother Essential hypertension Stroke Sister Cancer Breast cancer Daughter Cancer Colon cancer Social History Smoking Status: Never smoker Tobacco Type: Cigarettes Second Hand Exposure: No; Hx Alcohol Use: No Hx Substance Use: No Preferred Language: Albanian Communication Ability: Effective Visual Impairment: No Limitations Candle Molder Hand Required: No Beliefs That Will Affect Care: None marital status: Current Living Situation: Spouse current occupational status: retired Feels Safe at Home: Yes Assistive Devices: Glasses Physical Exam Physical Exam: General: Not sick or septic looking. Sitting comfortably in bed, not in distress, on trach collar HEENT: EOMI, ROSEANNE, MMM, TEP in place Chest: Coarse breath sounds bilaterally, no wheezes CVS: Regular rate and rhythm, normal heart sounds, no murmur Abdomen: Soft, non tender, not distended, normal bowel sounds Neuro: Awake, alert, oriented, conversing well, non focal Extremities: No cyanosis, clubbing or edema Results & Data Results & Data ([facility]) Vital Signs (Past 12 Hours) Vital Signs Temp Pulse Pulse Resp BP Pulse Ox 09/26/21 16:07 60 20 92 09/26/21 14:46 67 22 92 09/26/21 13:33 36.6 C 68 20 126/66 90 Laboratory Results Short CBC 09/26/21 Range/Units 14:50 WBC 13.53 H (4.8-10.8) K/uL Hgb 12.9 L (14.0-18.0) g/dL Hct 39.2 L (42-52) % Plt Count 450 H (130-400) K/uL BMP 09/26/21 09/26/21 14:50 16:32 Sodium TNP 136 Potassium TNP 4.0 Chloride 99 Carbon Dioxide 27 BUN 15 Creatinine 1.05 Glucose 86 Calcium 9.3 Liver Function 09/26/21 09/26/21 Range/Units 14:50 16:32 Total Bilirubin 0.8 (0.2-1.0) mg/dl AST TNP 19 ALT 23 (7-52) U/L Alkaline Phosphatase 87 (34-104) U/L Albumin 3.8 (3.4-5.0) gm/dl Diagnostic Findings Chest X-Ray 09/26/21 13:58 XR chest 1V portable CLINICAL HISTORY: SOB. COMPARISON STUDY: 11/02/2020 TECHNIQUE: 1 view of the chest FINDINGS: Single frontal view of the chest demonstrates the cardiomediastinal silhouette to be within normal limits. Permanent cardiac pacer is in place. There is hyperinflation of the lungs with attenuation of the pulmonary vasculature peripherally characteristic of underlying chronic obstructive pulmonary disease. The lungs are clear of alveolar opacities. There is no evidence for pleural effusion. There is no evidence for vascular congestion. There is no acute osseous pathology. The patient is status post right mastectomy IMPRESSION: 1. No acute cardiopulmonary disease. 2. Underlying COPD ACT 112: Negative or not required by law. Electronically signed by: Amrik Beckford M.D. 09/26/2021 4:46 PM (1) Aspiration pneumonia Aspiration pneumonia type: unspecified Laterality: unspecified laterality Lung location: unspecified part of lung Qualified Code(s): J69.0 - Pneumonitis due to inhalation of food and vomit
[2021-09-26 17:16] LABS: Magnesium 1.8 mg/dl (1.7-2.4)
[2021-09-26] MEDS ORDERED: MAGNESIUM HYDROXIDE SUSP 30 ML UDC PO PRN (19:27)
[2021-09-26] MEDS ORDERED: ALBUT/IPRATROP 3MG/0.5MG NEB 3 ML VIAL INH PRN (19:27)
[2021-09-26] MEDS ORDERED: ACETAMINOPHEN 325 MG TAB PO PRN (19:27)
[2021-09-26] MEDS ORDERED: BUDESONIDE 0.25 MG/2 ML VIAL (PULMICORT) NEB PRN (19:27)
[2021-09-26] MEDS ORDERED: ALUMINUM/MAGNESIUM SUSP 30 ML UDC PO PRN (19:27)
[2021-09-26] MEDS ORDERED: ONDANSETRON INJ 2 MG/ML 2 ML VIAL IV PRN (19:27)
[2021-09-26] MEDS ORDERED: POLYETHYLENE (MIRALAX) 17 GM PACK PO PRN (19:27)
--- NOTE | 2021-09-26 19:36 | CT Scan Report ---
CT chest diagnostic wo con CT DOSE: 346.06 mGy.cm CLINICAL HISTORY: 81 years-old Male with ?aspiration PNA. Acute shortness of breath with possible as piration pneumonia TECHNIQUE: Multiaxial CT images of the chest were performed without contrast. A dose lowering techni que was utilized adhering to the principles of ALARA. COMPARISON: Chest radiograph of same day, CTA chest 09/13/2021, 12/05/2019, 09/01/2019. FINDINGS: Postoperative changes of the neck are redemonstrated with tracheostomy cannula in place. Le ft subclavian pacer. The heart is upper limits of normal in size with extensive nome coronary arter y calcifications. Atherosclerosis thoracic aorta without aneurysm. Paratracheal lymph nodes measure u p to 9 mm, likely physiologic. Mild gynecomastia. Pneumothorax, or overt pulmonary edema. Moderate multifocal tree-in-bud and scattered nodular airspac e opacities redemonstrated within a multilobar distribution. There is associated diffuse bronchial wa ll thickening with mucous plugging. Nodular opacities within the right middle lobe have mildly progre ssed. There is no significant change from the prior study. Unchanged 8 mm subpleural nodule of the sesay perior segment left lower lobe on image 121. Unchanged 4 mm nodule of the right lower lobe, image 222 . Tracheobronchial secretions. No acute process of the imaged upper abdomen. Small hiatal hernia. Cysts of the superior pole kidneys are redemonstrated. 1.4 cm lesion within the superior pole right kidney demonstrates Hounsfield unit of 10. Unremarkable soft tissues. The bones appear to be intact Degenerative changes of the shoulder s and spine. Multilevel anterior endplate bridging osteophytosis. IMPRESSION: 1. This study is generally stable from the 09/13/2021 exam. Moderate multifocal tree-in-bud and small scattered nodular consolidative opacities are again noted within a multilobar distribution compatible with an infectious or inflammatory pneumonitis/bronchiolitis. 2. Associated bronchial wall thickening suggestive of bronchitis with tracheobronchial secretions and mucous plugging. 3. Unchanged 8 mm subpleural nodule of the superior segment left lower lobe. Based on greater than 2 years of stability, this is favored to be benign. 4. Small hiatal hernia. ACT 112: Negative or not required by law. Electronically signed by: Andrew Siddiqui M.D. 09/26/2021 7:34 PM
[2021-09-26] MEDS: PARoxetine HCL 20 MG TAB PO SCH (20:08)
[2021-09-26] MEDS: amLODIPine BESYLATE 5 MG TAB PO SCH (20:09)
[2021-09-26] MEDS: SODIUM CHLOR 7% 4 ML NEB NEB SCH (20:09)
[2021-09-26] MEDS: hydrOXYzine HCl 25 MG TAB PO SCH (20:09)
[2021-09-26] MEDS: ATORVASTATIN 40 MG TAB PO SCH (20:09)
[2021-09-26] MEDS: guaiFENesin 600 MG TABCR PO SCH (20:09)
[2021-09-26] MEDS: DOXYCYCLINE HYCLATE 100 MG CAP PO SCH (20:09)
[2021-09-26] MEDS: APIXABAN 5 MG TABLET PO SCH (20:09)
[2021-09-26] MEDS: FORMOTEROL 20 MCG/2 ML VIAL NEB SCH (20:09)
[2021-09-26] MEDS: MELATONIN 3 MG TAB PO PRN (21:54)
[2021-09-26] MEDS: PIPERACILLIN/TAZOBACTAM 4.5 GM in DEXTROSE 5% 100 ML IV SCH (21:55)
[2021-09-27] MEDS: PIPERACILLIN/TAZOBACTAM 4.5 GM in DEXTROSE 5% 100 ML IV SCH ×3 (05:40→21:46)
[2021-09-27] MEDS: LEVOTHYROXINE SODIUM 125 MCG TABLET PO SCH (06:09)
[2021-09-27] MEDS: SODIUM CHLOR 7% 4 ML NEB NEB SCH ×2 (07:31→20:00)
[2021-09-27] MEDS: FORMOTEROL 20 MCG/2 ML VIAL NEB SCH ×2 (07:31→20:00)
[2021-09-27] MEDS: METOPROLOL SUCC 25MG EXT REL TAB PO SCH (07:46)
[2021-09-27] MEDS: PANTOprazole 40 MG TAB PO SCH (07:46)
[2021-09-27] MEDS: APIXABAN 5 MG TABLET PO SCH ×2 (07:46→21:41)
[2021-09-27] MEDS: CLOPIDOGREL BISULFATE 75 MG TAB PO SCH (07:46)
[2021-09-27] MEDS: DOXYCYCLINE HYCLATE 100 MG CAP PO SCH ×2 (07:46→21:41)
[2021-09-27] MEDS: guaiFENesin 600 MG TABCR PO SCH ×2 (07:46→21:41)
[2021-09-27 08:23] LABS: Basophils # (auto) 0.04 K/uL (0-0.2); Basophils % (auto) 0.4 %; Eosinophils # (auto) 0.72 K/uL (0-0.5); Eosinophils % (auto) 7.3 %; Hematocrit (blood only) 36.2 % (42-52); Hemoglobin 11.8 g/dL (14.0-18.0); Immature Granulocytes # (auto) 0.03 K/uL (0.00-0.02); Immature Granulocytes % (auto) 0.3 %; Lymphocytes # (auto) 0.99 K/uL (1.2-3.4); Lymphocytes % (auto) 10.1 %; Mean Corpuscular Hgb Conc 32.6 g/dL (32-36); Mean Corpuscular Volume 88.9 fL (80-100); Mean Platelet Volume 9.2 fL (7.4-10.4); Monocytes # (auto) 0.94 K/uL (0.11-0.59); Monocytes % (auto) 9.6 %; Neutrophils # (auto) 7.12 K/uL (1.4-6.5); Neutrophils % (auto) 72.3 %; Platelet Count 359 K/uL (130-400); RDW Coefficient of Variation 14.3 % (11.5-14.5); RDW Standard Deviation 46.5 fL (36.4-46.3); Red Blood Count 4.07 M/uL (4.7-6.1); White Blood Count 9.84 K/uL (4.8-10.8)
[2021-09-27 09:03] LABS: Albumin Globulin Ratio 0.9 (0.9-2); Albumin Level 3.5 gm/dl (3.4-5.0); BUN Creatinine Ratio 13.3 (10-20); Bilirubin,Total 0.8 mg/dl (0.2-1.0); Calcium 8.9 mg/dl (8.5-10.1); Creatinine Clr Calc Pharmacy 69.3 ml/min; Est GFR (African American) 82.9 ml/min; Est GFR (Non-African American) 71.5 ml/min; Globulin 3.8 gm/dl (2.5-4.0); Magnesium 1.9 mg/dl (1.7-2.4); Potassium 3.8 mmol/L (3.5-5.1); Total Protein 7.3 gm/dl (6.0-8.3)
--- NOTE | 2021-09-27 13:50 | Hospitalist Progress Note ---
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 Patient was recently admitted 09/13-09/18 for aspiration PNA and was treated with zosyn->Augmentin and was evaluated by ENT and MANAGER HOUSE at that time- Work up showed aspiration through his TEP at that time and he was to follow with his ENT at [facility]. He is being managed for the following: Suspected recurrent aspiration PNA, through his TEP - Recently admitted for aspiration PNA and treated with zosyn->Augmentin with improvement in symptoms - At presentation, WBC 13, CXR does not show any acute process similar to last time. CT chest s/o infxn / inflammatory pneumonitis and bronchitis. - F/u on admitting sputum clx, blood clx. - Continue zosyn/doxy pending clx results, continue hypertonic saline, vest therapy, nebs, IS, flutter valve, mucinex - Patient follows up with [facility] for management of his TEP- last seen on 09/20 with TEP adjusted and botox injected- next appointment on 09/30 for repeat botox injection and evaluation Laryngeal cancer s/p tracheostomy in Mar 2019- hx of radiation, no chemotherapy - Follows with ENT TEP in place-Patient follows up with [facility] for management of his TEP- last seen on 09/20 with TEP adjusted and botox injected- next appointment on 09/30 for repeat botox injection and evaluation - Seen by ENT and MANAGER HOUSE here during recent admission with videofluorscopic swallow study COPD- occasional wheezes, watch out for exacerbation, no need for steroids. Continue nebs CAD s/p CABG x2 1995 [facility]- no issues currently. On plavix, toprol. Fol low with [facility] cardiology as outpatient - Pt is currently on plavix and eliquis - appears Eliquis is onboard s/p CEA with CVA since Apr 2020 - pt is unsure of the reason why he is on eliquis. No current issues with bleeding - In February 2018 patient diagnosed with TIA. Found to have B/L carotid stenosis, worse than prior studies. He underwent right CEA in February 2018 and left CEA in May 2018. HTN- on toprol, norvasc SSS s/p dual chamber pacemaker May 2017- Recently eval by Dr. Garcia 06/26/21 and battery reserve was normal, no issues currently Hypothyroid- continue synthroid Full code DVT ppx- eliquis Updated at bedside Admission and Anticipated Discharge Date Admission Date: September 26, 2021 Subjective Patient seen and examined at bedside for follow-up of suspected recurrent asp iration pneumonia through his TEP. Patient was lying in bed, on room air, NAD, no new acute events overnight. Patient reports eating okay and moving bowels okay. Patient denies any shortness of breath or chest pain or palpitation or belly pain or other review of symptoms. Physical Exam Physical Exam: GENERAL: Alert and oriented x3. NAD, on RA. Trach collar. HEENT: No pallor, no icterus. Pupils equal, round and reactive to light. Oral mucosa moist. NECK: No JVD, no neck masses. HEART: S1 and S2 heard. Regular rate and rhythm. systolic murmur at aortic and pulmonic area, no gallop. RESPIRATORY SYSTEM: Normal AP diameter. No accessory muscle use. Occasional wheezing, coarse b/l ABDOMEN: Soft, bowel sounds present, nontender, no distention. CENTRAL NERVOUS SYSTEM: No facial droop. Speech is clear. Obeys simple commands. Moves extremities. EXTREMITIES: No edema, no erythema seen. Results & Data Results & Data ([facility]) Vital Signs (Past 12 Hours) Vital Signs Temp Pulse Resp BP Pulse Ox 09/27/21 11:53 36.7 C 78 18 114/66 88 L 09/27/21 08:02 36.8 C 60 20 116/64 88 L 09/27/21 07:35 68 18 92 09/27/21 03:17 36.5 C 57 L 20 111/68 92 (1) Aspiration pneumonia Aspiration pneumonia type: unspecified Laterality: unspecified laterality Lung location: unspecified part of lung Qualified Code(s): J69.0 - Pneumonitis due to inhalation of food and vomit
[2021-09-27] MEDS: MELATONIN 3 MG TAB PO PRN (21:40)
[2021-09-27] MEDS: ATORVASTATIN 40 MG TAB PO SCH (21:41)
[2021-09-27] MEDS: PARoxetine HCL 20 MG TAB PO SCH (21:41)
[2021-09-27] MEDS: hydrOXYzine HCl 25 MG TAB PO SCH (21:41)
[2021-09-27] MEDS: amLODIPine BESYLATE 5 MG TAB PO SCH (21:42)
[2021-09-28] MEDS: PIPERACILLIN/TAZOBACTAM 4.5 GM in DEXTROSE 5% 100 ML IV SCH (05:05)
[2021-09-28] MEDS: LEVOTHYROXINE SODIUM 125 MCG TABLET PO SCH (05:56)
[2021-09-28 06:25] LABS: Hematocrit (blood only) 34.4 % (42-52); Hemoglobin 11.3 g/dL (14.0-18.0); Mean Corpuscular Hemoglobin 29.4 pg (25-34); Mean Corpuscular Hgb Conc 32.8 g/dL (32-36); Mean Corpuscular Volume 89.6 fL (80-100); Mean Platelet Volume 9.2 fL (7.4-10.4); Platelet Count 349 K/uL (130-400); RDW Coefficient of Variation 14.1 % (11.5-14.5); RDW Standard Deviation 46.5 fL (36.4-46.3); Red Blood Count 3.84 M/uL (4.7-6.1); White Blood Count 8.07 K/uL (4.8-10.8)
[2021-09-28 06:48] LABS: BUN Creatinine Ratio 8.6 (10-20); Calcium 8.7 mg/dl (8.5-10.1); Creatinine Clr Calc Pharmacy 58.9 ml/min; Est GFR (African American) 67.6 ml/min; Est GFR (Non-African American) 58.3 ml/min; Magnesium 1.9 mg/dl (1.7-2.4); Potassium 3.7 mmol/L (3.5-5.1)
[2021-09-28] MEDS: SODIUM CHLOR 7% 4 ML NEB NEB SCH ×2 (07:20→19:40)
[2021-09-28] MEDS: FORMOTEROL 20 MCG/2 ML VIAL NEB SCH ×2 (07:20→19:40)
[2021-09-28] MEDS: DOXYCYCLINE HYCLATE 100 MG CAP PO SCH ×2 (08:13→20:59)
[2021-09-28] MEDS: guaiFENesin 600 MG TABCR PO SCH ×2 (08:13→20:59)
[2021-09-28] MEDS: CLOPIDOGREL BISULFATE 75 MG TAB PO SCH (08:13)
[2021-09-28] MEDS: APIXABAN 5 MG TABLET PO SCH ×2 (08:13→20:58)
[2021-09-28] MEDS: PANTOprazole 40 MG TAB PO SCH (08:13)
[2021-09-28] MEDS: METOPROLOL SUCC 25MG EXT REL TAB PO SCH (08:14)
--- NOTE | 2021-09-28 12:18 | Hospitalist Progress Note ---
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 Patient was recently admitted 09/13-09/18 for aspiration PNA and was treated with zosyn->Augmentin and was evaluated by ENT and [employer]IT[employer] TE[employer]ER at that time- Work up showed aspiration through his TEP at that time and he was to follow with his ENT at [facility]. He is being managed for the following: Pneumonia due to Serratia marcescens- likely related to recent procedures for his TEP - Recently admitted for aspiration PNA and treated with zosyn->Augmentin with improvement in symptoms - At presentation, WBC 13, CXR does not show any acute process similar to last time. CT chest stable from 09/13-shows Moderate multifocal tree-in-bud and small scattered nodular consolidative opacities are again noted within a multilobar distribution compatible with an infectious or inflammatory pneumonitis/bronch iolitis. - WBC normalized, sputum clx with Serratia marcescens- pansensitive; Blood clx negative - Change zosyn to Ceftriaxone until symptoms improved, then will change to po at discharge - Continue hypertonic saline, vest therapy, nebs, IS, flutter valve, mucinex - Patient follows up with [facility] for management of his TEP- last seen on 09/20 with TEP adjusted and botox injected- next appointment on 09/30 for repeat botox injection and evaluation Laryngeal cancer s/p tracheostomy in Mar 2019- hx of radiation, no chemotherapy - Follows with ENT TEP in place-Patient follows up with [facility] for management of his TEP- last seen on 09/20 with TEP adjusted and botox injected- next appointment on 09/30 for repeat botox injection and evaluation - 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 Continue nebs CAD s/p CABG x2 1995 [facility]- no issues currently. On plavix, toprol. Follow with [facility] cardiology as outpatient - Pt is currently on plavix and eliquis - appears Eliquis is onboard s/p CEA with CVA since Apr 2020 - pt is unsure of the reason why he is on eliquis. No current issues with bleeding - In February 2018 patient diagnosed with TIA. Found to have B/L carotid stenosis, worse than prior studies. He underwent right CEA in February 2018 and left CEA in May 2018. HTN- on toprol, norvasc SSS s/p dual chamber pacemaker May 2017- Recently evaluated by Dr. Prasad 06/26/21 and battery reserve was normal, no issues currently Hypothyroid- continue synthroid DVT ppx- eliquis Dispo- Transfer to [facility]. Anticipate discharge in 1-2 days pending improvement in symptoms Admission and Anticipated Discharge Date Admission Date: September 28, 2021 Subjective No new issues. States feels better. Bringing yellow phlegm. He was asking if the bacteria is idenfied. Also asking why his oxygen saturation would drop to mid 80s. Denies any chest pain, shortness of breath, fever, chills. Physical Exam Physical Exam: General: Not sick or septic looking. Sitting comfortably in bed, not in distress, on room air HEENT: EOMI, ROSEANNE, MMM, TEP in place Chest: Coarse breath sounds bilaterally, no wheezes CVS: Regular rate and rhythm, normal heart sounds, no murmur Abdomen: Soft, non tender, not distended, normal bowel sounds Neuro: Awake, alert, oriented, conversing well, non focal Extremities: No cyanosis, clubbing or edema Results & Data Results & Data ([facility]) Vital Signs (Past 12 Hours) Vital Signs Temp Pulse Pulse Resp BP Pulse Ox 09/28/21 11:06 36.9 C 67 19 128/71 93 09/28/21 08:28 37.1 C 60 21 118/64 89 L 09/28/21 07:25 60 18 90 09/28/21 07:01 62 09/28/21 04:09 36.8 C 64 20 131/72 90 Laboratory Results Short CBC 09/28/21 Range/Units 05:53 WBC 8.07 (4.8-10.8) K/uL Hgb 11.3 L (14.0-18.0) g/dL Hct 34.4 L (42-52) % Plt Count 349 (130-400) K/uL [facility] 09/28/21 05:53 Sodium 138 Potassium 3.7 Chloride 102 Carbon Dioxide 28 BUN 10 Creatinine 1.16 Glucose 87 Calcium 8.7 Medications Administered Current Inpatient Medications Acetaminophen (Acetaminophen 325 Mg Tab) 650 mg PO Q4H PRN PRN Reason: Pain or Fever Stop: 10/26/21 19:26 Al Hydrox/Mg Hydrox/Simethicone (Aluminum/Magnesium Susp 30 Ml Udc) 15 ml PO Q4H PRN PRN Reason: Dyspepsia Stop: 10/26/21 19:26 Albuterol (Albut/Ipratrop 3mg/0.5mg Neb 3 Ml Vial) 3 ml INH QID PRN; Protocol PRN Reason: Shortness Of Breath Or Wheezing Stop: 10/26/21 19:26 Amlodipine Besylate (Amlodipine Besylate 5 Mg Tab) 5 mg PO HUNG Stop: 10/26/21 20:59 Last Admin: 09/27/21 21:42 Dose: 5 mg Documented by: Apixaban (Apixaban 5 Mg Tablet) 5 mg PO BID [facility] Stop: 10/26/21 20:59 Last Admin: 09/28/21 08:13 Dose: 5 mg Documented by: Atorvastatin Calcium (Atorvastatin 40 Mg Tab) 40 mg PO [facility] Stop: 10/26/21 20:59 Last Admin: 09/27/21 21:41 Dose: 40 mg Documented by: Budesonide (Budesonide 0.25 Mg/2 Ml Vial (Pulmicort)) 0.25 mg NEB BIDR PRN PRN Reason: pulm Stop: 10/26/21 19:26 Clopidogrel Bisulfate (Clopidogrel Bisulfate 75 Mg Tab) [facility] Stop: 10/27/21 08:59 Last Admin: 09/28/21 08:13 Dose: 75 mg Documented by: Doxycycline Hyclate (Doxycycline Hyclate 100 Mg Cap) 100 mg PO BID [facility] Stop: 10/03/21 20:59 Last Admin: 09/28/21 08:13 Dose: 100 mg Documented by: Formoterol Fumarate (Formoterol 20 Mcg/2 Ml Vial) 20 mcg NEB BIDR [facility] Stop: 10/26/21 20:59 Last Admin: 09/28/21 07:20 Dose: 20 mcg Documented by: Guaifenesin (Guaifenesin 600 Mg Tabcr) 600 mg PO Q12 [facility] Stop: 10/26/21 20:59 Last Admin: 09/28/21 08:13 Dose: 600 mg Documented by: Hydroxyzine HCl (Hydroxyzine Hcl 25 Mg Tab) 50 mg PO HS [facility] Stop: 10/26/21 20:59 Last Admin: 09/27/21 21:41 Dose: 50 mg Documented by: Ceftriaxone Sodium 2,000 mg/ (Dextrose) 70 mls @ 140 mls/hr IV Q24H [facility]; Protocol Stop: 10/05/21 11:59 Levothyroxine Sodium (Levothyroxine Sodium 125 Mcg Tablet) 125 mcg PO DAILYBB [facility] Stop: 10/27/21 06:29 Last Admin: 09/28/21 05:56 Dose: 125 mcg Documented by: Magnesium Hydroxide (Magnesium Hydroxide Susp 30 Ml Udc) 30 ml PO Q12H PRN PRN Reason: Constipation Stop: 10/26/21 19:26 Melatonin (Melatonin 3 Mg Tab) 3 mg PO HS PRN PRN Reason: Sleep Stop: 10/26/21 20:39 Last Admin: 09/27/21 21:40 Dose: 3 mg Documented by: Metoprolol Succinate (Metoprolol Succ 25mg Ext Rel Tab) 25 mg PO DAILY [facility] Stop: 10/27/21 08:59 Last Admin: 09/28/21 08:14 Dose: 25 mg Documented by: Ondansetron HCl (Ondansetron Inj 2 Mg/Ml 2 Ml Vial) 4 mg IV Q6H PRN PRN Reason: Nausea Stop: 10/26/21 19:26 Pantoprazole Sodium (Pantoprazole 40 Mg Tab) 40 mg PO QAM [facility] Stop: 10/27/21 08:59 Last Admin: 09/28/21 08:13 Dose: 40 mg Documented by: Paroxetine HCl (Paroxetine Hcl 20 Mg Tab) 20 mg PO HS [facility] Stop: 10/26/21 20:59 Last Admin: 09/27/21 21:41 Dose: 20 mg Documented by: Polyethylene Glycol (Polyethylene (Miralax) 17 Gm Pack) 17 gm PO DAILY PRN PRN Reason: Constipation Stop: 10/26/21 19:26 Sodium Chloride (Sodium Chlor 7% 4 Ml Neb) 4 ml NEB BIDR [facility] Stop: 10/26/21 19:26 Last Admin: 09/28/21 07:20 Dose: 4 ml Documented by: (1) Aspiration pneumonia Aspiration pneumonia type: unspecified Laterality: unspecified laterality Lung location: unspecified part of lung Qualified Code(s): J69.0 - Pneumonitis due to inhalation of food and vomit
[2021-09-28] MEDS: cefTRIAXone SODIUM 2,000 MG in DEXTROSE 5% 50 ML IV SCH (14:21)
[2021-09-28] MEDS: amLODIPine BESYLATE 5 MG TAB PO SCH (20:58)
[2021-09-28] MEDS: ATORVASTATIN 40 MG TAB PO SCH (20:59)
[2021-09-28] MEDS: PARoxetine HCL 20 MG TAB PO SCH (21:00)
[2021-09-28] MEDS: hydrOXYzine HCl 25 MG TAB PO SCH (21:00)
[2021-09-29] MEDS: LEVOTHYROXINE SODIUM 125 MCG TABLET PO SCH (06:16)
[2021-09-29] MEDS: SODIUM CHLOR 7% 4 ML NEB NEB SCH (07:03)
[2021-09-29] MEDS: FORMOTEROL 20 MCG/2 ML VIAL NEB SCH (07:04)
[2021-09-29] MEDS: DOXYCYCLINE HYCLATE 100 MG CAP PO SCH (08:55)
[2021-09-29] MEDS: guaiFENesin 600 MG TABCR PO SCH (08:55)
[2021-09-29] MEDS: PANTOprazole 40 MG TAB PO SCH (08:55)
[2021-09-29] MEDS: CLOPIDOGREL BISULFATE 75 MG TAB PO SCH (08:55)
[2021-09-29] MEDS: APIXABAN 5 MG TABLET PO SCH (08:55)
[2021-09-29] MEDS: METOPROLOL SUCC 25MG EXT REL TAB PO SCH (08:56)
[2021-09-29] MEDS: cefTRIAXone SODIUM 2,000 MG in DEXTROSE 5% 50 ML IV SCH (12:27)
--- NOTE | 2021-09-29 16:09 | Discharge Summary ---
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 Patient was seen at [facility] on thursday, his TEP was adjusted, botox was injected and states also had swallow study which did not show leakage. However patient thinks he still has some leakage. He has another appointment with them for M on for repeat botox injection. His states that for the past few days he was having increasing shortness of breath and decreased appetite. Bringing yellow phlegm. They tried to suction but not enough coming out. Today his pulse oximeter at home showed 85% saturation and they came to the ED for evaluation. Denies any fever, chills, chest pain, nausea, vomiting. Admission Exam Per Admitting Provider General: Not sick or septic looking. Sitting comfortably in bed, not in distress, on trach collar HEENT: EOMI, ROSEANNE, MMM, TEP in place Chest: Coarse breath sounds bilaterally, no wheezes CVS: Regular rate and rhythm, normal heart sounds, no murmur Abdomen: Soft, non tender, not distended, normal bowel sounds Neuro: Awake, alert, oriented, conversing well, non focal Extremities: No cyanosis, clubbing or edema Principal Diagnosis Pneumonia due to Serratia Discharge Exam General: Sitting comfortably in bed, not in distress, on room air HEENT: EOMI, ROSEANNE, MMM, TEP in place Chest: Fair breath sounds bilaterally with no wheezes or crackles- significantly improved CVS: Regular rate and rhythm, normal heart sounds, no murmur Abdomen: Soft, non tender, not distended, normal bowel sounds Neuro: Awake, alert, oriented, conversing well, non focal Extremities: No cyanosis, clubbing or edema Discharge Data Allergies Allergy/AdvReac Type Severity Reaction Status Date / Time rosuvastatin [From Crestor] Allergy Unknown Unknown Verified 09/26/21 17:07 Consultations 09/26/21 16:52 ED Decision to Admit Stat Ordered Studies 09/26/21 17:20 CT chest diagnostic wo con Stat Laboratory Results WBC 8.07 K/uL (4.8-10.8) 09/28/21 05:53 RBC 3.84 M/uL (4.7-6.1) L 09/28/21 05:53 Hgb 11.3 g/dL (14.0-18.0) L 09/28/21 05:53 Hct 34.4 % (42-52) L 09/28/21 05:53 MCV 89.6 fL (80-100) 09/28/21 05:53 MCH 29.4 pg (25-34) 09/28/21 05:53 MCHC 32.8 g/dL (32-36) 09/28/21 05:53 RDW Std Deviation 46.5 fL (36.4-46.3) H 09/28/21 05:53 RDW Coeff of Sharda 14.1 % (11.5-14.5) 09/28/21 05:53 Plt Count 349 K/uL (130-400) 09/28/21 05:53 MPV 9.2 fL (7.4-10.4) 09/28/21 05:53 Immature Gran % (Auto) 0.3 % 09/27/21 07:16 Neut % (Auto) 72.3 % 09/27/21 07:16 Lymph % (Auto) 10.1 % 09/27/21 07:16 Wallace % (Auto) 9.6 % 09/27/21 07:16 Eos % (Auto) 7.3 % 09/27/21 07:16 Baso % (Auto) 0.4 % 09/27/21 07:16 Neut # (Auto) 7.12 K/uL (1.4-6.5) H 09/27/21 07:16 Lymph # (Auto) 0.99 K/uL (1.2-3.4) L 09/27/21 07:16 Wallace # (Auto) 0.94 K/uL (0.11-0.59) H 09/27/21 07:16 Eos # (Auto) 0.72 K/uL (0-0.5) H 09/27/21 07:16 Baso # (Auto) 0.04 K/uL (0-0.2) 09/27/21 07:16 Immature Gran # (Auto) 0.03 K/uL (0.00-0.02) H 09/27/21 07:16 PT 12.2 Seconds (9.0-12.0) H 09/26/21 14:50 INR 1.2 (0.9-1.1) H 09/26/21 14:50 APTT 34.7 Seconds (21.0-31.0) H 09/26/21 14:50 PTT Ratio 1.3 09/26/21 14:50 Sodium 138 mmol/L (136-145) 09/28/21 05:53 Potassium 3.7 mmol/L (3.5-5.1) 09/28/21 05:53 Chloride 102 mmol/L (98-107) 09/28/21 05:53 Carbon Dioxide 28 mmol/L (21-32) 09/28/21 05:53 Anion Gap 8 (3-11) 09/28/21 05:53 BUN 10 mg/dl (6-23) 09/28/21 05:53 Creatinine 1.16 mg/dl (0.6-1.4) 09/28/21 05:53 Est Cr Clr Drug Dosing 58.9 ml/min 09/28/21 05:53 Est GFR ( Amer) 67.6 ml/min 09/28/21 05:53 Est GFR (Non-Af Amer) 58.3 ml/min 09/28/21 05:53 BUN/Creatinine Ratio 8.6 (10-20) L 09/28/21 05:53 Glucose 87 mg/dl (70-99(Fasting)) 09/28/21 05:53 Calcium 8.7 mg/dl (8.5-10.1) 09/28/21 05:53 Phosphorus 4.0 mg/dl (2.5-4.9) 09/28/21 05:53 Magnesium 1.9 mg/dl (1.7-2.4) 09/28/21 05:53 Total Bilirubin 0.8 mg/dl (0.2-1.0) 09/27/21 07:16 AST 15 U/L (13-39) 09/27/21 07:16 ALT 16 U/L (7-52) 09/27/21 07:16 Alkaline Phosphatase 79 U/L (34-104) 09/27/21 07:16 Troponin I High Sens 13.2 pg/ml (0-20) 09/26/21 14:50 Total Protein 7.3 gm/dl (6.0-8.3) 09/27/21 07:16 Albumin 3.5 gm/dl (3.4-5.0) 09/27/21 07:16 Globulin 3.8 gm/dl (2.5-4.0) 09/27/21 07:16 Albumin/Globulin Ratio 0.9 (0.9-2) 09/27/21 07:16 Procalcitonin 0.14 ng/ml (0-0.5) 09/26/21 17:58 Nasal Screen MRSA (PCR) Negative (Negative) 09/26/21 17:58 SARS-CoV-2, RNA, NAAT NEGATIVE (NEGATIVE) 09/26/21 16:28 Impressions Chest X-Ray 09/26/21 13:58 XR chest 1V portable CLINICAL HISTORY: SOB. COMPARISON STUDY: 11/02/2020 TECHNIQUE: 1 view of the chest FINDINGS: Single frontal view of the chest demonstrates the cardiomediastinal silhouette to be within normal limits. Permanent cardiac pacer is in place. There is hyperinflation of the lungs with attenuation of the pulmonary vasculature peripherally characteristic of underlying chronic obstructive pulmonary disease. The lungs are clear of alveolar opacities. There is no evidence for pleural effusion. There is no evidence for vascular congestion. There is no acute osseous pathology. The patient is status post right mastectomy IMPRESSION: 1. No acute cardiopulmonary disease. 2. Underlying COPD ACT 112: Negative or not required by law. Electronically signed by: Amrik Beckford M.D. 09/26/2021 4:[address] 09/26/21 17:20 CT chest diagnostic wo con CT DOSE: 346.06 mGy.cm CLINICAL HISTORY: 81 years-old Male with ?aspiration PNA. Acute shortness of breath with possible aspiration pneumonia TECHNIQUE: Multiaxial CT images of the chest were performed without contrast. A dose lowering technique was utilized adhering to the principles of ALARA. COMPARISON: Chest radiograph of same day, CTA chest 09/13/2021, 12/05/2019, 09/01/2019. FINDINGS: Postoperative changes of the neck are redemonstrated with tracheostomy cannula in place. Left subclavian pacer. The heart is upper limits of normal in size with extensive [place] coronary artery calcifications. Atherosclerosis thoracic aorta without aneurysm. Paratracheal lymph nodes measure up to 9 mm, likely physiologic. Mild gynecomastia. Pneumothorax, or overt pulmonary edema. Moderate multifocal tree-in-bud and scattered nodular airspace opacities redemonstrated within a multilobar di stribution. There is associated diffuse bronchial wall thickening with mucous plugging. Nodular opacities within the right middle lobe have mildly progressed. There is no significant change from the prior study. Unchanged 8 mm subpleural nodule of the superior segment left lower lobe on image 121. Unchanged 4 mm nodule of the right lower lobe, image 222. Tracheobronchial secretions. No acute process of the imaged upper abdomen. Small hiatal hernia. Cysts of the superior pole kidneys are redemonstrated. 1.4 cm lesion within the superior pole right kidney demonstrates Hounsfield unit of 10. Unremarkable soft tissues. The bones appear to be intact Degenerative changes of the shoulders and spine. Multilevel anterior endplate bridging osteophytosis. IMPRESSION: 1. This study is generally stable from the 09/13/2021 exam. Moderate multifocal tree-in-bud and small scattered nodular consolidative opacities are again noted within a multilobar distribution compatible with an infectious or inflammatory pneumonitis/bronchiolitis. 2. Associated bronchial wall thickening suggestive of bronchitis with tracheobronchial secretions and mucous plugging. 3. Unchanged 8 mm subpleural nodule of the superior segment left lower lobe. Based on greater than 2 years of stability, this is favored to be benign. 4. Small hiatal hernia. ACT 112: Negative or not required by law. Electronically signed by: Andrew Siddiqui M.D. 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 He is being managed for the following: Pneumonia due to Serratia marcescens- likely related to recent procedures for his TEP - Recently admitted for aspiration PNA and treated with zosyn->Augmentin with improvement in symptoms - At presentation, WBC 13, CXR does not show any acute process similar to last time. CT chest stable from 09/13-shows Moderate multifocal tree-in-bud and small scattered nodular consolidative opacities are again noted within a multilobar distribution compatible with an infectious or inflammatory pneumonitis/bronchiolitis. - WBC normalized, sputum clx with Serratia marcescens- pansensitive; Blood clx negative - Changed zosyn to Ceftriaxone with significant improvement in symptoms->switch to vantin at discharge for 1 more week. - S/p hypertonic saline, vest therapy, nebs, IS, flutter valve, mucinex- >recommend to continue chest physiotherapy at home, oral hygiene and aspiration precautions - Patient follows up with [facility] for management of his TEP- last seen on 09/20 with TEP adjusted and botox injected- next appointment tomorrow on 09/30 for repeat botox injection and evaluation Laryngeal cancer s/p tracheostomy in Mar 2019- hx of radiation, no chemotherapy - Follows with ENT TEP in place-Patient follows up with [facility] for management of his TEP- last seen on 09/20 with TEP adjusted and botox injected- next appointment on 09/30 for repeat botox injection and evaluation - 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 Continue home inhalers CAD s/p CABG x2 [facility]- no issues currently. On plavix, toprol. Follow with [facility] cardiology as outpatient - Pt is currently on plavix and eliquis - appears Eliquis is onboard s/p CEA with CVA since Apr 2020 - pt is unsure of the reason why he is on eliquis. No current issues with bleeding - In February 2018 patient diagnosed with TIA. Found to have B/L carotid stenosis, worse than prior studies. He underwent right CEA in February 2018 and left CEA in May 2018. HTN- on toprol, norvasc SSS s/p dual chamber pacemaker May 2017- Recently evaluated by Dr. Prasad 06/26/21 and battery reserve was normal, no issues currently Hypothyroid- continue synthroid He is doing much better and feels ready to go home. He has appointment with [facility] ENT tomorrow for follow up on his TEP. I called his and discussed discharge plan. He is stable for discharge. Total Time Total Time Spent Total Time Spent (In Minutes): 45 Discharge Plan Discharge Items Patient Disposition: Home - Self-Care Reason For Visit: ASPIRATION PNEUMONIA Discharge Diagnosis: Pneumonia due to Serratia Activity: Resume your previous activity Non-emergency contact: Primary Care Provider Call non-emergency contact if: you have any medication questions, your symptoms worsen and you have a fever Follow-up/Referrals: Neto Rasheed MD [Primary Care Provider] - Diet: Regular Addtl Attending Provider Instructions: Continue the antibiotic vantin twice daily for 1 more week starting tomorrow morning Continue the flutter valve and chest percussion therapy Follow up with the [facility] ENT for further management of your TEP Continue oral hygiene and aspiration precautions. If symptoms worsen or you have fever, chills,weakness, shortness of breath or increasing sputum or color change, call your family doctor or come to the Emergency Pending Studies at Discharge: No Stand-Alone Forms: My [email or web address], Smoking Cessation Medications and DC Order Prescriptions: New guaifenesin [Mucinex] 600 mg Tablet Extended Release 12hr 600 mg PO Q12 Qty: 30 RF: 0 cefpodoxime 200 mg tablet 200 mg PO Q12H Qty: 14 RF: 0 Continued omeprazole 20 mg tablet,delayed release (DR/EC) 20 mg PO QAM RF: 0 ipratropium-albuterol 0.5 mg-3 mg(2.5 mg base)/3 mL solution for nebulization 3 ml INH QID PRN (Reason: Shortness Of Breath Or Wheezing) RF: 0 paroxetine HCl [Paxil] 20 mg tablet 20 mg PO HS RF: 0 levothyroxine 125 mcg tablet 125 mcg PO QAM RF: 0 indomethacin 25 mg capsule 1 cap PO TID MDD Gout PRN (Reason: Pain) RF: 0 nitroglycerin 0.4 mg tablet, sublingual 1 tab Sublingual UD PRN (Reason: Chest Pain) RF: 0 albuterol sulfate 2.5 mg /3 mL (0.083 %) Solution For Nebulization 2.5 mg INHALATION QID PRN (Reason: Shortness Of Breath Or Wheezing) RF: 0 clopidogrel 75 mg tablet 75 mg PO QAM RF: 0 amlodipine 5 mg tablet 5 mg PO HS RF: 0 atorvastatin [Lipitor] 40 mg tablet 40 mg PO HS RF: 0 fluorouracil 5 % Cream 1 applic TOPICAL DIRECTED RF: 0 bacitracin 500 unit/gram Ointment 1 applic TOPICAL DIRECTED RF: 0 acetaminophen [Tylenol Extra Strength] 500 mg Tablet 1,000 mg PO QID PRN (Reason: Fever Or Pain) RF: 0 budesonide [Pulmicort] 0.5 mg/2 mL Suspension For Nebulization 0.5 mg INHALATION DAILY RF: 0 hydroxyzine HCl 25 mg tablet 50 mg PO HS RF: 0 metoprolol succinate 25 mg tablet extended release 24 hr 25 mg PO DAILY RF: 0 sodium chloride 0.9 % solution for nebulization 0 ml INHALATION DIRECTED RF: 0 Eliquis 5 mg tablet 5 mg PO BID RF: 0 polyethylene glycol 3350 [Miralax] 17 gram powder in packet 17 g PO DAILY PRN (Reason: Constipation) RF: 0 [place] Magnair Starter 25 mcg/mL solution for nebulization 25 mcg inhalation BID RF: 0 Discharge Orders: Discharge Order (Routine); Ordered 09/29/21 Ordered By: Medardo Joseph/Other Patient Handouts: What Is Pneumonia?, Lung Anatomy, Preventing Pneumonia Admission Data Admit Date/Time: 09/28/21 11:25 Attending Provider: Medardo Jenkins Admit Provider: Medardo Jenkins Primary Care Provider: Neto Rasheed Other Providers: Medardo Jenkins Other Interventions: Discharge Summary Assessment (RN) Last Done: 09/29/21 14:15
== END 2021-09-29 14:43 | disposition home or self-care (01) | DRG 205 ==
LOC: ED 13:13 → 2S 13:13 → SUATTDRO 16:52 → 2S 19:11 → 3N 09-28 22:24

== ENCOUNTER 2023-07-25 09:57 | Inpatient (IN) ==
--- OUTSIDE RECORDS SUMMARY | 2023-07-25 10:35 | External Medical Summary | Summary of Care ---
Author Name Unknown Organization [facility] Address [address] [facility] [address] Phone [phone] Care Team Providers Care Director Economic Name Role Phone Neto Rasheed MD Primary Care Provider + Reason for Visit * Reason Onset Date Comments Test Results 07/23/[address] and patient end of 07/23/2023 Encounter Details Date Type Department Care Team (Late st Contact Info) Description 07/23/2023 Telephone General Internal Medicine [facility] [address] [place] [address] Neto Rasheed MD [address] [place] [address] Test Results (Check on CT and patient end ... Allergies Active Allergy Reactions Criticality Noted Date Comments Atorvastatin Other (Please comment) 12/05/2019 Rosuvastatin 02/11/2019 documented as of this encounter (statuses as of 07/24/2023) Medications Medication Sig Dispensed Refills Start Date End Date Status nitroglycerin (NITROSTAT) 0.4 MG SUBLIndications:CAD (coronary artery disease), big sandy coronary artery,Chest pain,SOB (shortness of breath),Malaise and fatigue Place 1 Tab under the tongue every 5 minutes as needed for Pain, Chest. Max dose 3 tablets in 15 minutes 25 Tab 3 11/08/2018 Active Misc. Devices MISC Cool mist humidification device 1 Each 0 05/02/2019 Active Misc. Devices MISC Portable suction device 1 Each 0 05/02/2019 Active Misc. Devices MISC Trach care cleaning kit 1 Each 0 05/02/2019 Active Misc. Devices MISC Yankauer suction tips 10 Each 5 05/02/2019 Active Misc. Devices MISC 12Fr flexible suction catheters 10 Each 5 05/02/2019 Active Misc. Devices MISC Inner cannulas for Shiley size 10 cuffless laryngectomy tube 10 Each 5 05/02/2019 Active polyethylene glycol 3350 (MIRALAX) packet Take 1 Packet by mouth daily. 14 Each 0 05/02/2019 Active Additional Information Patient taking differently:17 g OralDAILY PRN, Constipation, Informant: Patient, Reported on 06/02/2022 Misc. Devices MISC Size 10 shiley laryngectomy tube 2 Each 5 08/09/2019 Active acetaminophen (TYLENOL) 500 MG Tablet Take 2 Tablets by mouth every 4 hours as needed for Fever >38C(100.5F) or Pain, Mild. 0 Active Fluorouracil 5 % External Cream (Efudex)Indications :Actinic keratosis Apply to rough spots on the scalp nightly x 2-4 weeks. 40 g 0 05/18/2020 Active Misc. Devices one ultra voice 1 Each 0 06/15/2020 Active Ipratropium-Albuter ol 0.5-2.5 (3) MG/3ML Inhalation Solution (Duoneb)Indications :COPD, moderate (HCC) Inhale via nebulizer 3 mL every 6 hours as needed for Wheezing. 360 mL 5 09/24/2021 Active Sodium Chloride 0.9 % Inhalation Nebulization SolutionIndications :Aspiration pneumonia of both lungs, unspecified aspiration pneumonia type, unspecified part of lung (HCC) Use as directed to clean tracheostomy 3 mL 3 10/03/2021 Active Zoster Vac Recomb Adjuvanted 50 MCG/0.5ML Intramuscular Suspension Reconstituted (Shingrix)Indicatio ns:Need for vaccination for zoster Inject 0.5 mL into a large muscle now and repeat dose in 60 to 180 days 1 Each 1 12/25/2021 Active Additional Information Patient not taking.Reported on 01/08/2023 Fluorouracil 5 % External Cream (Efudex) apply to left forearm twice daily for 3 weeks, then treat right forearm 40 g 1 06/30/2022 Active Eliquis 5 MG Oral Tablet (Apixaban) TAKE 1 TABLET BY MOUTH TWICE A DAY 60 Tablet 5 07/03/2022 Active Atorvastatin Calcium 40 MG Oral Tablet (Lipitor)Indication s:Coronary artery disease involving big sandy coronary artery of big sandy heart without angina pectoris,Dyslipidem ia, goal LDL below 70 TAKE 1 TABLET BY MOUTH EVERY DAY IN THE MORNING 90 Tablet 3 02/06/2023 Active Clopidogrel Bisulfate 75 MG Oral Tablet (pLAVix) TAKE 1 TABLET BY MOUTH EVERY DAY 90 Tablet 1 03/09/2023 Active Levothyroxine Sodium 125 MCG Oral Tablet (Levoxyl) TAKE 1 TABLET BY MOUTH EVERY DAY AT LEAST 30 MIN BEFORE BREAKFAST OR OTHER MEDICATION 90 Tablet 1 03/09/2023 Active PARoxetine HCl 20 MG Oral Tablet (pAXil) TAKE 1 TABLET BY MOUTH EVERY DAY 90 Tablet 3 04/03/2023 Active amLODIPine Besylate 5 MG Oral Tablet (Norvasc)Indication s:HTN, goal below 140/90 TAKE 1 TABLET BY MOUTH EVERY DAY IN THE MORNING 90 Tablet 1 07/07/2023 Active Metoprolol Succinate ER 25 MG Oral Tablet Extended Release 24 Hour (toPROL XL)Indications:HTN, goal below 140/90,Coronary artery disease involving big sandy coronary artery of big sandy heart without angina pectoris,Aortocoron sharon bypass status,PAF (paroxysmal atrial fibrillation) (HCC) Take 1 Tablet by mouth in the morning. 90 Tablet 3 07/07/2023 Active predniSONE 20 MG Oral Tablet (Deltasone)Indicati ons:COPD exacerbation (HCC) TAKE 2 TABLETS BY MOUTH DAILY FOR 5 DAYS 10 Tablet 1 07/07/2023 Active Additional Information Patient not taking.Reported on 07/21/2023 predniSONE 10 MG Oral Tablet (Deltasone) Take 1 pill twice a day for 7 days then 1 pill daily for 7 days then 0.5 pill daily for 7 days then stop all prednisone! 25 Tablet 0 07/14/2023 Active Amoxicillin-Pot Clavulanate 875-125 MG Oral Tablet (Augmentin)Indicati ons:Fever, unspecified fever cause Take 1 Tablet by mouth in the morning and 1 Tablet before bedtime. 14 Tablet 0 07/17/2023 Active Omeprazole 20 MG Oral Capsule Delayed Release (PriLOSEC)Indicatio ns:Gastroesophageal reflux disease without esophagitis Take 1 Capsule by mouth in the morning. 90 Capsule 1 07/21/2023 Active Doxycycline Hyclate 100 MG Oral Tablet Delayed ReleaseIndications: COPD exacerbation (HCC) Take 1 Tablet by mouth in the morning and 1 Tablet before bedtime. - rescue kit. 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, group B, by GOLD 2017 classification 04/07 Overview: Per COPD GOLD Classification Paroxysmal atrial fibrillation 08/22/2021 Nonrheumatic aortic valve stenosis 03/08/2021 Iron deficiency anemia 06/04/2020 Chronic coronary artery disease 05/09/2019 Gastroesophageal reflux disease without esophagi tis 05/09/2019 H/O laryngectomy 05/09/2019 Tracheostomy status 05/09/2019 SSS (sick sinus syndrome) 02/18/2019 Cerebrovascular disease, arteriosclerotic, post- stroke 04/05/2018 Asymptomatic bilateral carotid artery stenosis 1 06/06/2017 S/P carotid endarterectomy 04/05/2018 History of radiation to head and neck region 02/2018 Environmental and seasonal allergies 12/31/2017 Cardiac pacemaker in situ 07/09/2017 Sinus node arrhythmia 07/09/2017 Bradycardia, sinus 06/04/2017 History of squamous cell carcinoma 12/28/2014 Dysphagia 06/19/2014 Overview: ICD-10 update of inactive term History of gout 02/05/2012 CAD (coronary artery disease), big sandy coronary a rtery 01/22/2012 Other voice and resonance disorders 10/30/2010 Dyslipidemia, goal LDL below 70 04/05/2009 Sleep apnea 11/14/2003 Overview: + sleep apnea- rx'd with cpap 8 cm 10/28 AORTOCORONARY BYPASS STATUS(aka CABG) 09/19/2003 Overview: 1995 CABG x 2 [facility] HISTORY OF TOBACCO USE(aka TOBACCO) 09/19/2003 HTN, goal below 140/90 Acquired hypothyroidism Anxiety states Overview: ICD-10 update of inactive term documented as of this encounter (statuses as of 07/24/2023) Resolved Problems Problem Noted Date Diagnosed Date Resolved Date 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 Overview: 2020 Stage 3a chronic kidney disease 03/05/2020 01/08/2023 Overview: Per CKD protocol - Per CKD protocol Hematoma of neck 12/12/2019 07/01/2022 Pre-diabetes 08/31/2019 09/08/2019 Kidney disease, chronic, sta ge III (GFR 30-59 ml/min) 08/08/2019 03/08/2020 Overview: Per CKD protocol Head and neck cancer 05/09/2019 022 Post-nasal drip 04/21/2018 02/08/2019 Overview: Acute condition COPD, moderate 04/07/2018 04/10/2022 Overview: Per COPD GOLD Classification Disorder of larynx 01/05/2018 Overview: 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 COPD, severity to be determined 09/22/2014 04/07/2018 Hallux rigidus 02/05/2012 12/31/2018 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 03/31/2011 03/06/2017 Cellulitis of neck 10/30/2010 8 Esophageal reflux 09/17/2009 07/04/2019 Mucositis due to antineoplastic therapy 09/17/2009 09/03/2017 Severe obesity with body mas s index (BMI) of 35.0 to 39.9 with serious comorbidity 07/23/2009 Overview: Per Obesity Taxonomy ICD-10 update of inactive diagnosis Benign neoplasm of colon 11/15/200809/2017 Overview: adenomatous/repeat colonoscopy in 5 yrs ADVANCE DIRECTIVE INFORMATION 09/06/2004 03/27/2021 Overview: Yes, Patient instructed to provide copy of advance directive for provider to review and to be scanned into Electronic Medical Record Gout 09/19/2003 04/19/2018 Overview: L 1st MCP History of laryngeal cancer 09/19/2003 07/21/2023 Overview: 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 Cruz f/u Organic sleep disorder 09/19/200309/03 Actinic keratosis 09/19/2003 09/03/2017 OBESITY, UNSPECIFIED 08/30/2002 010 Overview: Per Obesity Taxonomy PURE HYPERCHOLESTEROLEM 03/27 Overview: Per Lipid Taxonomy. HTN, goal below 140/90 09/03 Overview: Hypertension Benign documented as of this encounter (statuses as of 07/24/2023) Immunizations Name Administration Dates Next Due COVID-19 mRNA, LNP-s, No Pre serve, 2-Dose Series (Pfizer) 03/29/2021,07/06/2020,06/15/2020 COVID-19, LNP-s, No Preserve , Evert-sucrose, Ages 12+ (Pfizer) 08/29/2021 DTaP Dipth/Tet/Acell Pertussis (Infanrix), Peds 09/26/2003 Diptheria/Tetanus Adult (TD) 09/26/2003 Pneumococcal Conjugate Vacc, 13 Valent (Prevnar) 04/25/2016 Pneumococcal Conjugate Vacci ne, 7 Valent 11/17/2006 Pneumococcal Polysaccharide PPV23 (Pneumovax) 10/31/2009 Season Influenza, Quad, PF, Adjuvanted, 65+ Yrs, IM (FLUAD) 02/23/2020 Seasonal Influenza Virus Vac cine, Unspecified Formulation 03/08/2021,02/23/2020,12/31/2018,03/08,03/06/2017,04/25/2016,01/20/2013 ,01/22/2012,01/20/2011,03/08/2010,04/2008,03/07/2008,05/17/2001 Seasonal Influenza, PF, 6 M & above, IM , (FluLaval or Fluzone) 03/08/2018,03/06/2017 Seasonal Influenza, Quadriva lent Hd (Fluzone Hd) 01/08/2023,12/25/2021,03/08/2021 Seasonal Influenza, Quadriva lent, No Preserve, IM 04/25/2016 Seasonal Influenza, Split, I IV3, With Preserve, Inj 01/20/2013,01/22/2012,01/20/2011,03/08,12/26/2008,03/07/2008 Seasonal Influenza, Trivalen t, Adjuvanted, 65+ yrs 12/31/2018 TDAP (age 10 and older)(Boostrix) 12/25/2014,04/2003 TDAP (age 11 and older)(Adacel) 09/26/2003 documented as of this encounter Social History Tobacco Use Types Packs/Day Years Used Date Smoking Tobacco: Former Cigarettes 2 30 0 04/27/1954 - 04/27/1984 Smokeless Tobacco: Never Alcohol Use Standard Drinks/Week Comments Yes 7 (1 standard drink = 0.6 oz pur e alcohol) On occasion PHQ-2 Answer Date Recorded PHQ Adult Total Score 0 01/08/2023 Hunger Vital Sign Answer Date Recorded Worried About Running Out of Food in the Last Ye ar Never true 05/09/2019 Ran Out of Food in the Last Year Never true 05/09/2019 Sex and Gender Information Value Date Recorded Sex Assigned at Male 09/14/2018 5:16 PM EDT Gender Identity Male 09/14/2018 5:16 PM EDT Sexual Orientation Straight 09/14/2018 5: 16 PM EDT Job Start Date Occupation Industry Not on file Not on file Not on file documented as of this encounter Functional Status Functional Status Response Date of Assess ment Are you deaf or do you have serious difficulty h earing? No 12/06/2019 Are you blind or do you have serious difficulty seeing, even when wearing glasses? No 04/30/2019 Do you have serious difficul ty walking or climbing stairs? (5 years old or older) No 12/06/2019 Do you have difficulty dress ing or bathing? (5 years old or older) No 12/06/2019 Because of a physical, menta l, or emotional condition, do you have difficulty doing errands alone such as visiting a doctor s office or shopping? (15 years old or older) No 12/06/19 20 Cognitive Status Response Date of Assessm ent Because of a physical, menta l, or emotional condition, do you have serious difficulty concentrating, remembering, or making decisions? (5 years old or older) No 12/06/2019 documented as of this encounter Miscellaneous Notes * Telephone Encounter - Neto Rasheed MD - 07/24/2023 11:19 AM EDT I called again to , patient on speaker. We discussed CT, shows no aspiration, but concern for new chest wall mass/malignancy, radiology feels could be metastatic malignancy from throat. They justhad clear neck exam so could be different malignancy, but metasis on differential. We discussed CT o ther findings, no other questions, appreciated call. I did call [facility] ER after to speak to triage nurse and then to Dr. Pedroza who is going to assume care of patient, about ct, recent labs with iron def anemia, high wbc, possible malignancy/infection, possible bleed they were updated, had no further q uestions. * Telephone Encounter - Violeta Skinner LPN - 07/24/2023 10:36 AM EDT Received a call from Dr. Rasheed requesting patient's CT report be printed and faxed to [facility] ED. Report printed and faxed, confirmation received. He also asked if we could have the images pushed to [facility]. I called Radiology and spoke with Amanda states she will push the images right now. * Telephone Encounter - Neto Rasheed MD - 07/24/2023 10:[address] reviewed from other encounter: 1. Minimal juxtapleural right basal scarring or atelectasis. No gross consolidation to suggest aspiration. 2. New large right chest wall mass representing a neoplasm. In view of history of laryngeal cancer this most likely represents metastasis. 3. Additional findings and details as above. I called number to talk to patient, answered,they are in the ER and she said wasn't a good time. I asked her if I can call back as I really want to talk to them about the CT scan. She said to call back in 30 minutes. I asked if I could call ER to let them know what is going on, she agreed I called ER and spoke to nurse in ER, discussed case, symptoms, concern with new lung mass possiblemalignancy vs other, she took info, asked if we could fax report, I called office as I am out today, nursing to fax report and push images to [facility]. * Telephone Encounter - Izabella Chavez RN - 07/23/2023 1:[address] still pending. * Telephone Encounter - Neto Rasheed MD - 07/23/2023 9:47 AM EDT Noted, will await CT read, can they update us end of day of how he is feeling? If CT chest ok and feels better, may do CT neck given surgery history, but if persistent fevers and illness suggest er for possible admission and expedited work up * Telephone Encounter - Afshan Loyola MED ASSIST - 07/23/2023 9:[address] to have them read scan. Spoke to pt's , aware and verbalized understanding. stated symptoms are mostly the same, fever comes and goes and sometimes feels fine other times does not. Advised to go to ER since symptoms have not improved and still has occasional fevers. stated pt was in a good mood this morning and he went out for the day and is not home at the moment. * Telephone Encounter - Afshan Loyola MED ASSIST - 07/23/2023 9:35 AM EDT ----- Message from Neto Rasheed MD sent at 07/23/2023 9:24 AM EDT ----- 1. Iron is low, would start vitron-C one pill every other day and recheck iron 1 month to follow. Check fobt for blood in stools, if heavy bleeding to er 2. Hgb slightly low, will recheck 1 month possible from low iron 3. Wbc is very high, possibly from infection or steroid use, feel given symptoms maybe infection. CAN WE PLEASE GET CT READ OF CHEST BY CALLING CT SCAN. ALSO CAN WE CALL ESTHER, HOW IS HE FEELING, IF NO BETTER/WORSENING, SUGGEST ER GIVEN HIGHER WBC, 4. No lyme and rest of labs ok 5. See echo documented in this encounter Plan of Treatment Upcoming Encounters Date Type Department Care Team (Late st Contact Info) Description 02/17/2024 10:00 AM EDT Office Visit General Internal Medicine [facility] [address] [facility] [place] [address] Neto Rasheed MD [address] [facility] [place] [address] 07/14/2024 1:45 PM EDT Office Visit Dermatology [facility] [address] [facility] [place] [address] Bonnie Sawyer MD [address] [facility] [place] [address] Health Maintenance Due Date Last Done Comments Alpha-1 Antitrypsin 1957 Zoster Vaccines (1 of 2) 1989 COVID-19 Vaccine (2022- season) 2022 08/29/2021, 03/29/2021, 07/06/2020, Additional history exists Depression Screening 01/09/2024 01/08/2023 GFR 07/20/2024 07/21/2023, 12/26, 08/20/2022, Additional history exists O2 ASSESSMENT COMPLETED IN PAST YEAR FOR COPD 07/20/2024 07/21/2023 TSH 07/20/2024 07/21/2023, 07/27, 08/22/2021, Additional history exists DTaP,Tdap,and Td Vaccines (6 - Td or Tdap) 12/25/2024 12/25/2014, 09/26/2003, 09/26/2003, Additional history exists Albumin/Creatinine Ratio 07/22/2026 024, 08/22/2021, 12/26/2008 Pneumococcal Vaccine: 65+ Years Completed 04/25/2016, 10/31/2009 Influenza Vaccine (FLU shot) Completed , 12/25/2021, 03/08/2021, Additional history exists GARDASIL-HPV IMMUNIZATION SERIES Aged Out No longer eligible based on patient's age to complete this topic Hepatitis B Aged Out No longer eligi ble based on patient's age to complete this topic MENINGOCOCCAL (MENACTRA/MENVEO) Aged Out No longer eligible based on patient's age to complete this topic documented as of this encounter Medical Devices Implanted Type Area Soil Science Technical Officer Device Identifier Shelf Expiration Date Model / Serial / Lot Woundmatrix Fenstr [id number] (150 Units) - [id number] - [id number] Implanted:Qty: 150 on 04/18/2019 by Hayden Fleming MD at OR [facility] Left: Leg Upper [employer] [id number] 01/25/2020 [id number] / [id number] / [id number] Indwelling Voice Prosthesis Implanted:Qty: 1 on 10/26/2019 by Hayden Fleming MD at OR [facility] N/A: Throat 08/16/2021 1616-NS / / [id number] Description:INHEALTH TECHNOL IDRIS REF : [place] 1616-NS (KANA) CLASSIC INDWELLING VOICE PROSTHESIS WITH INSERTION / CLEANING ACCESSORIES documented as of this encounter Advance Directives Documents on File Type Date Recorded Patient Terrazzo Grinder Expl anation Power of Library Circulation Clerk 09/27/2018 POWER OF A TTORNEY Latest Code Status on File Code Status Date Activated Date Inactivated Comments Full Code 12/05/2019 8:46 PM 12/08/2019 8:52 PM This order reflects the patients wishes and were consensually agreed upon. Question Answer Comments Discussion of Advance Directives occurred with: Not Discussed Code Status History Code Status Date Activated Date Inactivated Comments Full Code 04/18/2019 8:34 PM 05/03/2019 3:06 PM This order reflects the patients wishes and were consensually agreed upon. Full Code 04/18/2019 8:29 PM 04/18/2019 8:34 PM Thi s order reflects the patients wishes and were consensually agreed upon. Care Teams Director Economic Relationship Specialty Start Date End Date Neto Rasheed MD [address] [place] [address] PCP - General Internal Medicine 02/14/21 documented as of this encounter
--- OUTSIDE RECORDS SUMMARY | 2023-07-25 10:35 | External Medical Summary | Summary of Care ---
Author Name Unknown Organization [facility] Address [address] [place] [address] Phone [phone] Care Team Providers Care Engine Emission Technician Name Role Phone Neto Rasheed MD Primary Care Provider + Reason for Visit * Reason Onset Date Comments Test Results 07/23/2023 Unexpected or In determinate Result Encounter Details Date Type Department Care Team (Late st Contact Info) Description 07/23/2023 Telephone [address], [place] [address] [facility] [address] Neto Rasheed MD [address] [place] [address] Test Results (Unexpected or Indeterminate ... Allergies Active Allergy Reactions Criticality Noted Date Comments Atorvastatin Other (Please comment) 12/05/2019 Rosuvastatin 02/11/2019 documented as of this encounter (statuses as of 07/24/2023) Medications Medication Sig Dispensed Refills Start Date End Date Status nitroglycerin (NITROSTAT) 0.4 MG SUBLIndications:CAD (coronary artery disease), wrangell coronary artery,Chest pain,SOB (shortness of breath),Malaise and [...] Oral Tablet (Lipitor)Indication s:Coronary artery disease involving wrangell coronary artery of wrangell heart without angina pectoris,Dyslipidem ia, goal LDL [...] XL)Indications:HTN, goal below 140/90,Coronary artery disease involving wrangell coronary artery of wrangell heart without angina pectoris,Aortocoron sharon bypass status,PAF [...] of gout 02/05/2012 CAD (coronary artery disease), wrangell coronary a rtery 01/22/2012 Other voice and [...] mRNA, LNP-s, No Pre serve, 2-Dose Series (Flashnotes) 03/29/2021,07/06/2020,06/15/2020 COVID-19, LNP-s, No Preserve , Evert-sucrose, Ages 12+ (Pfizer) 08/29/2021 DTaP Dipth/Tet/Acell Pertussis (Infanrix), Peds 09/26/2003 Diptheria/Tetanus Adult (TD) 09/26/2003 Pneumococcal Conjugate Vacc, 13 Valent (Prevnar) 04/25/2016 Pneumococcal Conjugate Vacci ne, 7 Valent 11/17/2006 Pneumococcal Polysaccharide PPV23 (Pneumovax) 10/31/2009 Season Influenza, Quad, PF, Adjuvanted, 65+ Yrs, IM (FLUAD) 02/23/2020 Seasonal Influenza Virus Vac cine, Unspecified Formulation 03/08/2021,02/23/2020,12/31/2018,03/08,03/06/2017,04/25/2016,01/20/2013 ,01/22/2012,01/20/2011,03/08/2010,0904/2008,03/07/2008,05/17/2001 Seasonal Influenza, PF, 6 M & above, [...] Encounter - Neto Rasheed MD - 07/24/2023 10:28 AM EDT See other encounter * Telephone Encounter - Krissy Zuluaga OSA - 07/23/2023 5:07 PM EDT Hello- The radiologist discovered an unexpected or indeterminate finding on Clinton Locke ([id number]) and asks that you review the following report. Study Type:CT CHEST W CONTRAST Date of Study: 07/22/2023 IMPRESSION 1. Minimal juxtapleural right basal scarring or atelectasis. No gross consolidation to suggest aspiration. 2. New large right chest wall mass representing a neoplasm. In view of history of laryngeal cancer this most likely represents metastasis. 3. Additional findings and details as above. Please respond to this encounter to acknowledge receipt of this message and take responsibility to ensure this report is reviewed. Thank you, JAIME Romero Client Service Rep [facility] documented in this encounter Plan of Treatment Upcoming Encounters Date Type Department Care Team (Late st Contact Info) Description 02/17/2024 10:00 AM EDT Office Visit General Internal Medicine [facility] [address] [place] [address] Neto Rasheed MD [address] [place] [address] 07/14/2024 1:45 PM EDT Office Visit Dermatology [facility] [address] [place] [address] [place] [address] Bonnie Sawyer MD [address] [facility] [place] [address] Health Maintenance Due Date Last Done Comments Alpha-1 Antitrypsin 1957 Zoster Vaccines (1 of 2) 1989 COVID-19 Vaccine (5 - 2022- season) 2022 08/29/2021, 03/29/2021, 07/06/2020, Additional history [...] this encounter Medical Devices Implanted Type Area Retail General Manager Device Identifier Shelf Expiration Date Model / Serial / Lot Woundmatrix Fenstr [id number] (150 Units) - [id number] - [id number] Implanted:Qty: 150 on 04/18/2019 by Hayden Fleming MD at [facility] Left: Leg Upper [employer] [id number] 01/25/2020 [id number] / [id number] / [id number] Indwelling Voice Prosthesis Implanted:Qty: 1 on 10/26/2019 by Hayden Fleming MD at [place] [facility] [place] N/A: Throat 08/16/2021 1616-NS / / [id number] Description:INHEALTH TECHNOL OGNAYELI REF : IN 1616-NS (HECTOR-ALONZO) CLASSIC INDWELLING VOICE PROSTHESIS WITH INSERTION / CLEANING ACCESSORIES documented as of this encounter Advance Directives Documents on File Type Date Recorded Patient Project Management Consultant Expl anation Power of Domestic Technician 09/27/2018 POWER OF A TTORNEY Latest Code [...] and were consensually agreed upon. Care Teams Engine Emission Technician Relationship Specialty Start Date End Date Neto Rasheed MD [address] [place] [address] PCP - General Internal Medicine 02/14/21 documented as of this encounter
--- OUTSIDE RECORDS SUMMARY | 2023-07-25 10:35 | External Medical Summary | Summary of Care ---
Author Name Unknown Organization [facility] Address [address] [place] [address] Phone [phone] Care Team Providers Care Stick Roller Name Role Phone Neto Rasheed MD Primary Care Provider + Reason for Visit * Reason Onset Date Comments Films 07/24/2023 Encounter Details Date Type Department Care Team (Late st Contact Info) Description 07/24/2023 Telephone Radiology Film File [address], [place] [id number] Neto Rasheed MD [address] [place] [address] Films Allergies Active Allergy Reactions Criticality Noted Date Comments Atorvastatin Other (Please comment) 12/05/2019 Rosuvastatin 02/11/2019 documented as of this encounter (statuses as of 07/24/2023) Medications Medication Sig Dispensed Refills Start Date End Date Status nitroglycerin (NITROSTAT) 0.4 MG SUBLIndications:CAD (coronary artery disease), [place] coronary artery,Chest pain,SOB (shortness of breath),Malaise and [...] Oral Tablet (Lipitor)Indication s:Coronary artery disease involving [place] coronary artery of [place] heart without angina pectoris,Dyslipidem ia, goal LDL [...] XL)Indications:HTN, goal below 140/90,Coronary artery disease involving [place] coronary artery of [place] heart without angina pectoris,Aortocoron sharon bypass status,PAF [...] of gout 02/05/2012 CAD (coronary artery disease), [place] coronary a rtery 01/22/2012 Other voice and [...] COPD GOLD Classification Disorder of larynx 01/05/2018 0 Overview: Fibrosis of larynx at level of [...] mRNA, LNP-s, No Pre serve, 2-Dose Series (Becual) 03/29/2021,07/06/2020,06/15/2020 COVID-19, LNP-s, No Preserve , Evert-sucrose, Ages 12+ (Becual) 08/29/2021 DTaP Dipth/Tet/Acell Pertussis (Infanrix), Peds 09/26/2003 [...] encounter Miscellaneous Notes * Telephone Encounter - Mary Grace Darling OSA - 07/24/2023 10:[address] Rasheed's nurse requesting 07/22/[address] imaging be sent to [facility]. [place] Authorization to Release on file. Images pushed to [facility] PACS. documented in this encounter Plan of Treatment Upcoming Encounters Date Type Department Care Team (Late st Contact Info) Description 02/17/2024 10:00 AM EDT Office Visit General Internal Medicine [facility] [address] [place] [address] Neto Rasheed MD [address] [place] [address] 07/14/2024 1:45 PM EDT Office Visit Dermatology [facility] [address] [place] [address] Bonnie Sawyer MD [address] [place] [address] Health Maintenance Due Date Last Done Comments Alpha-1 Antitrypsin 1957 Zoster Vaccines (1 of 2) 1989 COVID-19 Vaccine ( season) 2022 08/29/2021, 03/29/2021, 07/06/2020, Additional history exists Depression Screening 01/09/2024 01/08/2023 GFR 07/20/2024 07/21/2023, 12/26, 08/20/2022, Additional history exists O2 ASSESSMENT COMPLETED IN PAST YEAR FOR COPD 07/20/2024 07/21/2023 TSH 07/20/2024 07/21/2023, 04/09/2022, 08/22/2021, Additional history exists DTaP,Tdap,and Td Vaccines [...] this encounter Medical Devices Implanted Type Area Electrical Helper Device Identifier Shelf Expiration Date Model / Serial / Lot Woundmatrix Fenstr [id number] (150 Units) - [id number] - [id number] Implanted:Qty: 150 on 04/18/2019 by Hayden Fleming MD at [place] [facility] [place] Left: Leg Upper [employer] [id number] 01/25/2020 [id number] / [id number] / [id number] Indwelling Voice Prosthesis Implanted:Qty: 1 on 10/26/2019 by Hayden Fleming MD at [place] [facility] N/A: Throat 08/16/2021 1616-NS / / [id number] Description:INHEALTH TECHNOL OGIES REF : IN 1616-NS ([place]) CLASSIC INDWELLING VOICE PROSTHESIS WITH INSERTION / CLEANING ACCESSORIES documented as of this encounter Advance Directives Documents on File Type Date Recorded Patient Cutter Out Expl anation Power of Food Preparation Supervisor 09/27/2018 POWER OF A TTORNEY Latest Code [...] and were consensually agreed upon. Care Teams Stick Roller Relationship Specialty Start Date End Date Neto Rasheed MD [address] [place] [address] PCP - General Internal Medicine 02/14/21 documented as of this encounter
--- OUTSIDE RECORDS SUMMARY | 2023-07-25 10:35 | External Medical Summary ---
Author Name Unknown Address Unknown Organization [id number]:[facility] [place] [facility] [address] [place] [address] Laboratory Report Ordering Provider Test Date Status DEV LIAO 07/23/2023 12:39:51 Final Observation Date Value Abnormality Reference (Units) Status PARAPROTEIN NORMAL/ABNORMAL 07/23/2023 12:39:51 Normal Normal Final Protein, Urine 07/23/2023 12:39:51 13 (mg/dL) Final Immunofixation for Urine Narrative 07/23/2023 12:39:51 No monoclonal free light chains present (Bence Maier protein). Final Performing Location [facility] [place] - [address] [place] [address]
[2023-07-25] MEDS: AMPICILLIN/SULBACTAM SOD 3,000 MG in SODIUM CHLOR 0.9% MINI-B 100 ML IV STA (11:36)
[2023-07-25] MEDS ORDERED: VANCOMYCIN CONSULT ACTIVE PRN ×2 (11:37→13:47)
[2023-07-25 11:38] LABS: Basophils # (auto) 0.04 K/uL (0.00-0.20); Basophils % (auto) 0.2 %; Eosinophils # (auto) 0.02 K/uL (0.00-0.50); Eosinophils % (auto) 0.1 %; Hematocrit (blood only) 38.8 % (42.0-52.0); Hemoglobin 12.7 g/dl (14.0-18.0); Immature Granulocytes % (auto) 0.6 %; Lymphocytes # (auto) 0.84 K/uL (1.20-3.40); Lymphocytes % (auto) 4.8 %; Mean Corpuscular Hemoglobin 30.3 pg (25.0-34.0); Mean Corpuscular Hgb Conc 32.7 g/dL (32.0-36.0); Mean Corpuscular Volume 92.6 fL (80.0-100.0); Mean Platelet Volume 8.8 fL (9.4-12.4); Monocytes # (auto) 0.91 K/uL (0.11-0.59); Monocytes % (auto) 5.2 %; Neutrophils # (auto) 15.53 K/uL (1.40-6.50); Neutrophils % (auto) 89.1 %; Platelet Count 285 K/uL (130-400); RDW Coefficient of Variation 15.6 % (11.5-14.5); RDW Standard Deviation 52.5 fL (36.4-46.3); Red Blood Count 4.19 M/uL (4.70-6.10); White Blood Count 17.44 K/ul (4.8-10.8)
--- NOTE | 2023-07-25 11:42 | XRay Report ---
XR chest 1V portable HISTORY: Sepsis COMPARISON: Chest 06/19/2023. FINDINGS: No pneumothorax. No pleural effusions. Stable calcified granuloma within the right lower lo be. Otherwise, lungs are clear. No evidence for pulmonary edema. Is left-sided dual-chamber pacemaker . Poststernotomy changes are noted. The heart is normal in size. There is a small hiatus hernia, unch anged. The right infraclavicular mass is better appreciated on the recent chest CT. IMPRESSION: 1. No acute process within the chest. 2. The right infraclavicular mass is better appreciated on the recent chest CTA. ACT 112: Negative or not required by law. Electronically signed by: Andrew Marion M.D. 07/25/2023 11:40 AM
--- NOTE | 2023-07-25 11:48 | History & Physical Report ---
Date of Service July 25, 2023 Assessment & Plan (1) Sepsis: (2) Bacteremia due to Enterococcus: Plan: Patient presented to the ED a day prior to admission with flulike symptoms with muscle aches, fever and chills for 7 to 10 days. His blood culture 1/2 came back positive for gram-positive cocci in chains PCR panel is positive for Enterococcus faecium; VRE gene in negative. Blood work shows leukocytosis, lactate of 2.6. Will start him on ampicillin and vancomycin till we have final culture/sensitivity. Obtain echocardiogram; history of CABG, sick sinus syndrome status post pacemaker Will obtain infectious disease consult Repeat blood culture on Thursday Unsure regarding the source of infection; will obtain CT abdomen and pelvis with IV contrast. Recent skin lesion biopsy on July 02, 2023 on left arm. (3) Mass in chest: Plan: Patient had undergone CT chest/soft tissue neck on 07/24/2023; Found to have 6 cm right infraclavicular necrotic mass concerning for metastatic disease; also has cervical lymphadenopathy measuring 15 to 8 mm Will obtain oncology evaluation on Thursday (4) History of laryngectomy: (5) Tracheostomy in place: (6) Laryngeal cancer: Plan: History of laryngeal cancer; vocal cord SCC status post radiation, total laryngectomy Patient reports follow-up at [facility] 2 days prior to admission; Oncology to be consulted for workup of necrotic mass on chest. (7) COPD (chronic obstructive pulmonary disease): Plan: Continue home inhalers. Recently started on prednisone; currently on 5 mg once a day Will need to stress dose steroid if patient becomes hypotensive (8) Hypothyroidism: Plan: Continue levothyroxine (9) CAD (coronary artery disease): Plan: History of CABG Continue on Plavix and Lipitor CABG turning 1995 Patient started on Eliquis April 2020 after CEA with CVA since April 2020 (10) SSS (sick sinus syndrome): Plan: Status post pacemaker Will need echocardiogram for given gram-positive bacteremia (11) HTN (hypertension): Plan: Amlodipine on hold, continue metoprolol (12) Dyslipidemia: Plan: Continue Lipitor (13) Anxiety: Plan: Continue on Paxil Plan Discussed with patient and patient's at bedside. Discussed regarding plan of care. Time spent evaluating patient, direct bedside care, chart review, placing orders, interpretation of diagnostic studies, discussion with consultants, patient, and family members, as well as other required patient management activities is 90 minutes Please note the above document was generated using voice recognition software. It may contain grammatical, syntax or spelling errors. 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 Recent history of biopsy on left arm on 07/19/2023 Patient presented to the ED yesterday with flulike symptoms with muscle aches, fever and chills. He reports that the symptom has been ongoing for last 7 to 10 days. He reports generalized fatigue and tiredness, reports chills as well. He was recently seen by his primary care doctor on 07/21/2023. He is recently on tapering dose of prednisone; currently on 5 mg once a day. He he reports having follow-up in [facility] for his history of SCC of larynx. His blood culture 04/28 came back positive for gram-positive cocci in chains PCR panel is positive for Enterococcus faecium; VRE gene in negative. He was called back to the hospital for admission. Blood work shows leukocytosis, lactate of 2.6. He had chest CT and soft tissue neck done on 07/23 which showed 6.2 into 6 cm right infraclavicular/interpectoral necrotic mass. He also has right single cervical lymphadenopathy measuring 15X8 mm. He was referred for biopsy to oncology/surgery. Past medical history; as above Past surgical history; as above Social history; smoked for 30 years with 2 packs/day; quit in 1984. 7.0 standard drinks of alcohol per week. Allergies Allergy/AdvReac Type Severity Reaction Status Date / Time rosuvastatin [From Crestor] Allergy Unknown Unknown Verified 06/19/23 17:23 Home Medications Medication Instructions Recorded Confirmed Type levothyroxine 125 mcg tablet 125 mcg PO QAM 03/25/18 07/25/23 History nitroglycerin 0.4 mg sublingual 1 tab sublingual UD PRN Chest Pain 03/25/18 07/25/23 History tablet paroxetine HCl 20 mg tablet (Paxil) 20 mg PO HS 03/25/18 07/25/23 History clopidogrel 75 mg tablet 75 mg PO QAM 06/03/18 07/25/23 History ipratropium 0.5 mg-albuterol 3 mg 3 ml inhalation QID PRN Shortness 06/09/19 07/25/23 History (2.5 mg base)/3 mL nebulization Of Breath Or Wheezing soln albuterol sulfate 2.5 mg/3 mL 2.5 mg inhalation QID PRN 08/19/19 07/25/23 History (0.083 %) solution for nebulization Shortness Of Breath Or Wheezing amlodipine 5 mg tablet 5 mg PO HS 09/17/19 07/25/23 History atorvastatin 40 mg tablet (Lipitor) 40 mg PO HS 01/13/20 07/25/23 History polyethylene glycol 3350 17 gram 17 g PO DAILY PRN Constipation 11/02/20 07/25/23 History oral powder packet (Miralax) acetaminophen 500 mg tablet 1,000 mg PO QID PRN Fever Or Pain 09/13/21 07/25/23 History (Tylenol Extra Strength) apixaban 5 mg tablet (Eliquis) 5 mg PO BID 09/13/21 07/25/23 History budesonide 0.5 mg/2 mL suspension 0.5 mg inhalation DAILY 09/13/21 07/25/23 History for nebulization (Pulmicort) metoprolol succinate 25 mg 25 mg PO DAILY 09/13/21 07/25/23 History tablet,extended release 24 hr guaifenesin 600 mg tablet, 600 mg PO Q12 #30 tabs 09/29/21 07/25/23 Rx extended release 12 hr (Mucinex) amoxicillin 875 mg-potassium 1 tab PO BID #14 tabs 07/24/23 07/25/23 Rx clavulanate 125 mg tablet doxycycline hyclate 100 mg capsule 100 mg PO BID PRN rescue kit. 07/24/23 07/25/23 History omeprazole 20 mg capsule,delayed 20 mg PO DAILY 07/24/23 07/25/23 History release prednisone 10 mg tablet 10 mg PO UD 07/24/23 07/25/23 History Past Med/Surg History Medical History Aspiration pneumonia History of CVA (cerebrovascular accident) February 2018, no deficits COPD (chronic obstructive pulmonary disease) Acute hypoxemic respiratory failure Peripheral eosinophilia Difficult airway for intubation H/o glidescope #4 with CEA 03/2018 Carotid artery stenosis with cerebral infarction over 8 weeks ago The patient presented to [facility] ED on 03/26/18 with expressive aphasia, left upper extremity numbness, left lower extremity weakness. Symptoms were resolving by the time the patient arrived in the ED. 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 CAD (coronary artery disease) "1995 - CABG x 2" Gout Hypothyroidism Surgical History History of laryngectomy Hx of laryngectomy History of bronchoscopy History of tonsillectomy History of carotid endarterectomy RIGHT (MARCH 2018) History of cataract extraction with lens replacement cataract extraction with IOL implant and LRI left eye - 05/02/12 History of colonoscopy with polypectomy History of rotator cuff surgery Right - 2009 History of coronary artery bypass graft X2 VESSEL 1995 -- [facility] Family History Mother Essential hypertension Stroke Sister Cancer Breast cancer Daughter Cancer Colon cancer Social History Smoking Status: Never smoker Tobacco Type: Cigarettes Second Hand Exposure: No; Do You Dip or Chew Tobacco: No; Hx Alcohol Use: Yes Alcohol type: beer, wine and hard liquor Hx Substance Use: No Preferred Language: Greek Communication Ability: Effective Communication Ability Comment: write answers to questions, unable to talk yet Visual Impairment: No Limitations 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 Able to voice; writes for communication Neck: Tracheostomy with TEP present; no overlying swelling/redness over tracheostomy site/flap. Respiratory: normal respiratory effort, lungs clear to auscultation, no wheeze, rales, rhonchi. Normal insp/exp effort, no accessory muscle use Cardiovascular: S1-S2, no murmur Chest: normal inspection of chest Abdomen: Soft, nontender Musculoskeletal: Biopsy site bandaged on left arm. Skin: no rashes, warm and dry normal turgor Neurologic: PERRL, EOMI, accommodation nl, no face palsy, no dysarthria CN's II- XI intact bilaterally and moves all extremities Psychiatric: A+Ox3, euthymic affect Results & Data Results & Data Vital Signs (Past 12 Hours) Vital Signs Temp Pulse Resp BP Pulse Ox O2 Del Method 07/25/23 11:25 62 18 97 Room Air 07/25/23 09:59 36 C L 76 18 127/63 99 Room Air Code Status & VTE Plan VTE Prophylaxis Plan VTE Prophylaxis will be ordered: No (8) Hypothyroidism Hypothyroidism type: acquired Qualified Code(s): E03.9 - Hypothyroidism, unspecified (9) CAD (coronary artery disease) Coronary Disease-Associated Artery/Lesion type: unspecified vessel or lesion type [place] vs. transplanted heart: [place] heart Associated angina: without angina Qualified Code(s): I25.10 - Atherosclerotic heart disease of [place] coronary artery without angina pectoris (11) HTN (hypertension) Hypertension type: essential hypertension Qualified Code(s): I10 - Essential (primary) hypertension
[2023-07-25 11:54] LABS: Albumin Level 3.6 gm/dl (3.4-5.0); BUN Creatinine Ratio 16.7 (10-20); Bilirubin Direct 0.3 mg/dl (0-0.2); Bilirubin,Total 1.1 mg/dl (0.2-1.0); Creatinine Clr Calc Pharmacy 63.8 ml/min; Est GFR (African American) 77.9 ml/min; Est GFR (Non-African American) 67.2 ml/min; Magnesium 2.1 mg/dl (1.7-2.4); Potassium 3.9 mmol/L (3.5-5.1); Total Protein 6.8 gm/dl (6.0-8.3)
[2023-07-25 12:03] LABS: Partial Thromboplastin Ratio 1.1; Partial Thromboplastin Time 31 Seconds (21-31); Prothrombin Time 11.1 Seconds (9.0-12.0); Troponin I High Sensitivity 13.7 pg/ml (0-20)
[2023-07-25 12:06] LABS: Base Excess VBG 4.3 mEq/L; HCO3 VBG 30 mmol/L; Oxygen Saturation VBG < 60.0 %; PCO2 VBG 47 mmHg (38-50); PO2 VBG 30 mmHg; pH VBG 7.41 (7.36-7.41)
[2023-07-25] MEDS: OPTIRAY 320 100ml IV ONE (12:41)
--- NOTE | 2023-07-25 13:01 | CT Scan Report ---
ABDOMEN AND PELVIS CT WITH IV CONTRAST CT DOSE: 1172.83 mGy.cm HISTORY: Enterococcus bacteremia TECHNIQUE: Multiaxial CT images of the abdomen and pelvis were performed following the use of intrave nous contrast. A dose lowering technique was utilized adhering to the principles of ALARA. COMPARISON STUDY: Chest CT 07/24/2023. Abdomen and pelvis CT 01/16/2020. FINDINGS: There are trace bilateral pleural effusions. Stable subcentimeter nodules within the right lower lobe measuring up to 4 mm. Therefore, these are likely benign. A pacemaker wire is partially vi sualized. There is a small hiatus hernia. No pneumoperitoneum. No pneumatosis. Stable 1 cm sclerotic focus within the right posterior iliac bone consistent with a bone island. No suspicious lytic or rach stic osseous lesions. A few tiny fat-containing midline epigastric hernias. The distal right spermati c cord is not identified suggesting the possibility of a prior right orchiectomy. This remains unchan ged. Cholelithiasis. No gallbladder wall thickening. The main portal vein is patent. The liver, pancr eas, spleen, and adrenal glands are unremarkable. There is a 13 mm exophytic indeterminate lesion wit hin the right kidney and image 144. This could represent a renal mass or hyperdense cyst. This previo usly measured 10 mm. Multiple additional bilateral renal hypodense lesions favor cysts. No hydronephr osis. There is a 3 cm infrarenal abdominal aortic aneurysm, unchanged. No pelvic lymphadenopathy or p elvic free fluid. Mild bladder wall thickening. Xuis-vo-utrjdejs fecal retention. No bowel wall thick ening or obstruction. Normal appendix. Contrast within the bladder from the prior CT examination. IMPRESSION: 1. No bowel wall thickening or obstruction. 2. Mild bladder wall thickening. Recommend correlation with urinalysis to exclude a cystitis. 3. No evidence for metastatic disease within the abdomen or pelvis. 4. Cholelithiasis. No gallbladder wall thickening. 5. A 13 mm indeterminate lesion within the right kidney as described above. This could represent a re nal mass or hyperdense cysts. 6. Additional findings as described above. ACT 112: Negative or not required by law. Electronically signed by: Andrew Marion M.D. 07/25/2023 12:58 PM
[2023-07-25] MEDS: SODIUM CHLORIDE 0.9% 1,000 ML IV SCH (13:20)
[2023-07-25] MEDS: VANCOMYCIN HCL 2,000 MG in SODIUM CHLORIDE 0.9% 500 ML IV ONE (13:25)
[2023-07-25] MEDS ORDERED: NITROGLYCERIN SL 0.4 MG/TAB TAB SL PRN (13:47)
[2023-07-25] MEDS ORDERED: AMPICILLIN IV SCH (13:47)
[2023-07-25] MEDS ORDERED: VANCOMYCIN HCL 1,500 MG in SODIUM CHLORIDE 0.9% 500 ML IV SCH (13:47)
[2023-07-25] MEDS ORDERED: SODIUM CHLORIDE 0.9% IV SCH (13:47)
[2023-07-25] MEDS ORDERED: MAGNESIUM HYDROXIDE SUSP 30 ML UDC PO PRN (13:47)
[2023-07-25] MEDS ORDERED: POLYETHYLENE (MIRALAX) 17 GM PACK PO PRN (13:47)
--- NOTE | 2023-07-25 15:04 | Emergency Department Note ---
History of Present Illness General Chief Complaint: Referred by Doctor Stated Complaint: LAB WORK , REF BY DOC Time Seen by Provider: 07/25/23 10:06 History of Present Illness Provider Complaint: + abnormal lab Description of abnormal result: Positive blood cultures Associated symptoms: no fever, no chest pain or no shortness of breath Home Medications Medication Instructions Recorded Confirmed Type levothyroxine 125 mcg tablet 125 mcg PO QAM 03/25/18 07/25/23 History nitroglycerin 0.4 mg sublingual 1 tab sublingual UD PRN Chest Pain 03/25/18 07/25/23 History tablet paroxetine HCl 20 mg tablet (Paxil) 20 mg PO HS 03/25/18 07/25/23 History clopidogrel 75 mg tablet 75 mg PO QAM 06/03/18 07/25/23 History ipratropium 0.5 mg-albuterol 3 mg 3 ml inhalation QID PRN Shortness 06/09/19 07/25/23 History (2.5 mg base)/3 mL nebulization Of Breath Or Wheezing soln albuterol sulfate 2.5 mg/3 mL 2.5 mg inhalation QID PRN 08/19/19 07/25/23 History (0.083 %) solution for nebulization Shortness Of Breath Or Wheezing amlodipine 5 mg tablet 5 mg PO HS 09/17/19 07/25/23 History atorvastatin 40 mg tablet (Lipitor) 40 mg PO HS 01/13/20 07/25/23 History polyethylene glycol 3350 17 gram 17 g PO DAILY PRN Constipation 11/02/20 07/25/23 History oral powder packet (Miralax) acetaminophen 500 mg tablet 1,000 mg PO QID PRN Fever Or Pain 09/13/21 07/25/23 History (Tylenol Extra Strength) apixaban 5 mg tablet (Eliquis) 5 mg PO BID 09/13/21 07/25/23 History budesonide 0.5 mg/2 mL suspension 0.5 mg inhalation DAILY 09/13/21 07/25/23 History for nebulization (Pulmicort) metoprolol succinate 25 mg 25 mg PO DAILY 09/13/21 07/25/23 History tablet,extended release 24 hr guaifenesin 600 mg tablet, 600 mg PO Q12 #30 tabs 09/29/21 07/25/23 Rx extended release 12 hr (Mucinex) amoxicillin 875 mg-potassium 1 tab PO BID #14 tabs 07/24/23 07/25/23 Rx clavulanate 125 mg tablet doxycycline hyclate 100 mg capsule 100 mg PO BID PRN rescue kit. 07/24/23 07/25/23 History omeprazole 20 mg capsule,delayed 20 mg PO DAILY 07/24/23 07/25/23 History release prednisone 10 mg tablet 10 mg PO UD 07/24/23 07/25/23 History Allergies Allergy/AdvReac Type Severity Reaction Status Date / Time rosuvastatin [From Crestor] Allergy Unknown Unknown Verified 06/19/23 17:23 Past Med/Surg History Medical History Aspiration pneumonia History of CVA (cerebrovascular accident) February 2018, no deficits COPD (chronic obstructive pulmonary disease) Acute hypoxemic respiratory failure Peripheral eosinophilia Difficult airway for intubation H/o glidescope #4 with CEA 03/2018 Carotid artery stenosis with cerebral infarction over 8 weeks ago The patient presented to [facility] ED on 03/26/18 with expressive aphasia, left upper extremity numbness, left lower extremity weakness. Symptoms were resolving by the time the patient arrived in the ED. 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 CAD (coronary artery disease) "1995 - CABG x 2" Gout Hypothyroidism Surgical History History of laryngectomy Hx of laryngectomy History of bronchoscopy History of tonsillectomy History of carotid endarterectomy RIGHT (MARCH 2018) History of cataract extraction with lens replacement cataract extraction with IOL implant and LRI left eye - 05/02/12 History of colonoscopy with polypectomy History of rotator cuff surgery Right - 2009 History of coronary artery bypass graft X2 VESSEL 1995 -- MELCHOR LEIJA Family History Mother Essential hypertension Stroke Sister Cancer Breast cancer Daughter Cancer Colon cancer Social History Smoking Status: Never smoker Tobacco Type: Cigarettes Second Hand Exposure: No; Do You Dip or Chew Tobacco: No; Hx Alcohol Use: Yes Alcohol type: beer, wine and hard liquor Hx Substance Use: No Preferred Language: Korean Communication Ability: Effective Communication Ability Comment: write answers to questions, unable to talk yet Visual Impairment: No Limitations Nitrating Acid Mixer Required: No Beliefs That Will Affect Care: None marital status: Current Living Situation: Spouse current occupational status: retired Feels Safe at Home: Yes Assistive Devices: Other Physical Exam 2 Vital Signs: Vital Signs - 24 hr 07/25/23 09:59 07/25/23 11:25 Temperature 36 C L Temperature Source Temporal Artery Sc an Pulse Rate 76 62 Respiratory Rate 18 18 Respiratory Effort / Characteristics Non-Labored Respiratory Depth Normal Respiratory Patter n Regular Blood Pressure 127/63 Blood Pressure Yi n 84 Pulse Oximetry 99 97 Oxygen Delivery Me thod Room Air Room Air Sepsis Recent Feve r Within 48 Hours No Sepsis New/Unexpla ined Change in Men nikkie Status N/A Sepsis Action Take n by Nursing No Action Required Physical Exam: Physical Exam HENT: Exam performed. - Head: Normocephalic and atraumatic. EYES: Conjunctivae and EOM are normal. Right eye exhibits no discharge. Left eye exhibits no discharge. No scleral icterus. NECK: Normal range of motion. Neck supple. No JVD present. Trach in place. CV: Normal rate, regular rhythm, normal heart sounds and intact distal pulses. There is no peripheral edema. Palpable radial pulses bue. PULM/CHEST: Effort normal and breath sounds normal. No respiratory distress. No stridor. no wheezes. no rales. NEURO: Motor and sensation grossly intact. Course Course 1006: The patient was evaluated in room C5. A complete history and physical exam was performed Administered Medications Discontinued Medications Ampicillin Sodium/Sulbactam Sodium 3,000 mg/ Sodium Chloride 100 mls @ 200 mls/hr IV NOW STA Stop: 07/25/23 10:42 Last Infusion: 07/25/23 13:24 Dose: Infused Documented By: Admin: 07/25/23 11:36 Dose: 200 mls/hr Documented By: CARLINE Vancomycin HCl 2,000 mg/ (Sodium Chloride) 540 mls @ 200 mls/hr IV NOW ONE Stop: 07/25/23 14:18 Last Admin: 07/25/23 13:25 Dose: 200 mls/hr Documented By: CARLINE Sodium Chloride (Nss) 1,000 mls @ 999 mls/hr IV .Q1H1M HUNG Stop: 07/25/23 13:45 Last Admin: 07/25/23 13:20 Dose: 999 mls/hr Documented By: CARLINE Ioversol (Optiray 320 100ml) 94 ml IV ONCE ONE Stop: 07/25/23 12:41 Last Admin: 07/25/23 12:41 Dose: 94 ml Documented By: GAGANDEEP Medical Decision Making Medical Records Attestation: I reviewed the patient's medical records. External medical records reviewed. Patient was seen the emergency department yesterday. At that time he had a white blood cell count of 18.16 and was discharged with prescription Augmentin for possible aspiration pneumonia. Blood cultures conducted yesterday during the emergency department visit were positive for Enterococcus. Laboratory Data Attestation: I reviewed the patient's lab results. 07/25/23 Unknown 07/25/23 Unknown Imaging Data Attestation: I personally reviewed and interpreted this imaging study as follows: My Impression: Chest x-ray: No significant chest x-ray difference compared to the x-ray done yesterday Radiologist's Impression: XR chest 1V portable HISTORY: Sepsis COMPARISON: Chest 06/19/2023. FINDINGS: No pneumothorax. No pleural effusions. Stable calcified granuloma within the right lower lobe. Otherwise, lungs are clear. No evidence for pulmonary edema. Is left-sided dual-chamber pacemaker. Poststernotomy changes are noted. The heart is normal in size. There is a small hiatus hernia, unchanged. The right infraclavicular mass is better appreciated on the recent chest CT. IMPRESSION: 1. No acute process within the chest. 2. The right infraclavicular mass is better appreciated on the recent chest CTA. ACT 112: Negative or not required by law. Electronically signed by: Andrew Marion M.D. 07/25/2023 11:40 AM Dictated: 07/25/23 1137 Transcribed: 07/25/23 1137 ECG Data Attestation: I personally reviewed and interpreted this ECG as follows: Additional Comments: Paced rhythm with rate of 67. KS 172 QRS 94 QTc 420. No ectopy. MDM Narrative Cardiac monitoring: An order was placed for continuous cardiac monitoring. The monitor shows a rate of 70 with paced rhythm interpreted by me Vital signs stable. Labs showed a white blood cell count of 17.44. Patient will be admitted for enteric coccus positive blood cultures. Unasyn ordered for the patient. [facility] hospitalist will admit the patient. Impression & Plan Aspiration pneumonia, Bacteremia due to Enterococcus Discharge Plan Visit Data Chief Complaint: Referred by Doctor Stated Complaint: LAB WORK , REF BY DOC ED Provider: Jose Moe Discharge Problem: Aspiration pneumonia, Bacteremia due to Enterococcus Patient Disposition: Admitted As Inpatient
--- NOTE | 2023-07-25 15:19 | Pharmacy Report ---
Pharmacy PK ABX Note - Date of Service July 25, 2023 - Assessment and Plan - Assessment and Plan Assessment 83 year old M presenting to ED a day prior to admission with flulike symptoms with muscle aches, fever and chills for 7 to 10 days. Blood culture from 07/23 now growing GPCs in chains with BCID2 indicating enterococcus faecium, not VRE gene detected. Per provider discussion with ID, start vancomycin and unasyn at this time. Day # 1 of antimicrobial therapy. Plan Vancomycin * Loading dose: 2000 mg IV x 1 * Maintenance dose: 1500 mg IV every 24 hours starting tomorrow * Regimen is predicted to achieve target AUC/AURORA of 400-600 mg/L.hr * Random level ordered for: 07/27/23 with am labs Pharmacy will continue to follow and will adjust dose/frequency as necessary. Thank you. Pharmacy has transitioned to AUC monitoring for vancomycin. AUC/AURORA is the preferred PK/PD target and is associated with decreased risk of nephrotoxicity compared to traditional trough targets.
[2023-07-25] MEDS: UNASYN 3000MG / NS q6h IV SCH (16:44)
[2023-07-25] MEDS ORDERED: AMPICILLIN 2,000 MG in SODIUM CHLOR 0.9% MINI-B 100 ML IV SCH (17:30)
[2023-07-25] MEDS: guaiFENesin 600 MG TABCR PO SCH (20:22)
[2023-07-25] MEDS: PARoxetine HCL 20 MG TAB PO SCH (20:22)
[2023-07-25] MEDS: APIXABAN 5 MG TABLET PO SCH (20:23)
[2023-07-25] MEDS: ATORVASTATIN 40 MG TAB PO SCH (20:23)
[2023-07-26 00:23] LABS: Appearance Urine Clear (Clear); Bilirubin Urine Negative (Negative); Blood Urine Negative (Negative); Color Urine Yellow; Glucose Urine UA Negative (Negative); Ketones Urine Negative (Negative); Leukocyte Esterase Urine Negative (Negative); Nitrite Urine Negative (Negative); Protein Urine Negative (Negative); Urobilinogen Urine Negative (Negative)
[2023-07-26] MEDS: ACETAMINOPHEN 325 MG TAB PO PRN (04:42)
[2023-07-26] MEDS: LEVOTHYROXINE SODIUM 125 MCG TABLET PO SCH (05:48)
[2023-07-26 06:56] LABS: Basophils # (auto) 0.04 K/uL (0.00-0.20); Basophils % (auto) 0.3 %; Eosinophils # (auto) 0.18 K/uL (0.00-0.50); Eosinophils % (auto) 1.5 %; Hematocrit (blood only) 32.8 % (42.0-52.0); Hemoglobin 10.5 g/dl (14.0-18.0); Immature Granulocytes # (auto) 0.07 K/uL (0.01-0.20); Immature Granulocytes % (auto) 0.6 %; Lymphocytes # (auto) 1.25 K/uL (1.20-3.40); Lymphocytes % (auto) 10.3 %; Mean Corpuscular Hemoglobin 29.8 pg (25.0-34.0); Mean Corpuscular Volume 93.2 fL (80.0-100.0); Mean Platelet Volume 8.8 fL (9.4-12.4); Monocytes # (auto) 0.78 K/uL (0.11-0.59); Monocytes % (auto) 6.4 %; Neutrophils # (auto) 9.84 K/uL (1.40-6.50); Neutrophils % (auto) 80.9 %; Platelet Count 247 K/uL (130-400); RDW Coefficient of Variation 15.6 % (11.5-14.5); RDW Standard Deviation 53.1 fL (36.4-46.3); Red Blood Count 3.52 M/uL (4.70-6.10); White Blood Count 12.16 K/ul (4.8-10.8)
[2023-07-26 07:18] LABS: Albumin Globulin Ratio 1.1 (0.9-2); Albumin Level 2.8 gm/dl (3.4-5.0); BUN Creatinine Ratio 15.5 (10-20); Bilirubin,Total 0.7 mg/dl (0.2-1.0); C Reactive Protein 7.36 mg/dl (0-0.5); Creatinine Clr Calc Pharmacy 78.4 ml/min; Est GFR (African American) 93.2 ml/min; Est GFR (Non-African American) 80.4 ml/min; Globulin 2.5 gm/dl (2.5-4.0); Potassium 4.1 mmol/L (3.5-5.1); Total Protein 5.3 gm/dl (6.0-8.3)
[2023-07-26] MEDS: BUDESONIDE 0.5 MG/2 ML VIAL (PULMICORT) INH SCH (07:36)
[2023-07-26] MEDS: METOPROLOL SUCC 25MG EXT REL TAB PO SCH (09:17)
[2023-07-26] MEDS: predniSONE 5 MG TAB PO SCH (09:17)
[2023-07-26] MEDS: PANTOprazole 40 MG TAB PO SCH (09:17)
[2023-07-26] MEDS: CLOPIDOGREL BISULFATE 75 MG TAB PO SCH (09:17)
[2023-07-26] MEDS: VANCOMYCIN HCL 1,500 MG in SODIUM CHLORIDE 0.9% 500 ML IV SCH (10:44)
--- NOTE | 2023-07-26 10:53 | Hospitalist Progress Note ---
Date of Service July 26, 2023 Assessment & Plan (1) Sepsis: (2) Bacteremia due to Enterococcus: Plan: Patient presented to the ED a day prior to admission with flulike symptoms with muscle aches, fever and chills for 7 to 10 days. His blood culture / came back positive for gram-positive cocci in chains PCR panel is positive for Enterococcus faecium; VRE gene in negative. Blood work shows leukocytosis, lactate of 2.6. CT abdomen and pelvis showed mild low bladder wall thickening. No other acute findings Echocardiogram shows EF of 60 to 65%; study technically difficult. Valve structures not well-visualized. Continue on ampicillin and vancomycin till we have final culture/sensitivity. Obtain echocardiogram; history of CABG, sick sinus syndrome status post pacemaker Will obtain infectious disease consult Repeat blood culture on Thursday Unsure regarding the source of infection; Recent skin lesion biopsy on July 02, 2023 on left arm. (3) Mass in chest: Plan: Patient had undergone CT chest/soft tissue neck on 07/24/2023; Found to have 6 cm right infraclavicular necrotic mass concerning for metastatic disease; also has cervical lymphadenopathy measuring 15 to 8 mm Will obtain oncology recommendation for further workup Eliquis on hold now if biopsy is pursued next week. (4) History of laryngectomy: (5) Tracheostomy in place: (6) Laryngeal cancer: Plan: History of laryngeal cancer; vocal cord SCC status post radiation, total laryngectomy Patient reports follow-up at [facility] 2 days prior to admission; Oncology to be consulted for workup of necrotic mass on chest. (7) COPD (chronic obstructive pulmonary disease): Plan: Continue home inhalers. Recently started on prednisone; currently on 5 mg once a day Will need to stress dose steroid if patient becomes hypotensive (8) Hypothyroidism: Plan: Continue levothyroxine (9) CAD (coronary artery disease): Plan: History of CABG Continue on Plavix and Lipitor CABG turning 1995 Patient started on Eliquis April 2020 after CEA with CVA since April 2020 (10) SSS (sick sinus syndrome): Plan: Status post pacemaker Echocardiogram as above (11) HTN (hypertension): Plan: Resume amlodipine and metoprolol. (12) Dyslipidemia: Plan: Continue Lipitor (13) Anxiety: Plan: Continue on Paxil Plan Time spent evaluating patient, direct bedside care, chart review, placing orders, interpretation of diagnostic studies, discussion with consultants, patient, and family members, as well as other required patient management activities is 50 minutes Please note the above document was generated using voice recognition software. It may contain grammatical, syntax or spelling errors. Any formal questions or concerns about the content, text or information contained within the body of this dictation should be directly addressed to the provider for clarification Admission and Anticipated Discharge Date Admission Date: July 25, 2023 Subjective Patient seen and examined at bedside. He reports that he is feeling much better compared to yesterday. No fever overnight Review of Systems Review of Systems: All systems reviewed & are unremarkable except as noted in Subjective Physical Exam Physical Exam: Constitutional: Awake, alert oriented x 3. Able to voice; writes for communication Neck: Tracheostomy with TEP present; no overlying swelling/redness over tracheostomy site/flap. Respiratory: normal respiratory effort, lungs clear to auscultation, no wheeze, rales, rhonchi. Normal insp/exp effort, no accessory muscle use Cardiovascular: S1-S2, no murmur Chest: normal inspection of chest Abdomen: Soft, nontender Musculoskeletal: Biopsy site bandaged on left arm. Skin: no rashes, warm and dry normal turgor Neurologic: PERRL, EOMI, accommodation nl, no face palsy, no dysarthria CN's II- XI intact bilaterally and moves all extremities Psychiatric: A+Ox3, euthymic affect Results & Data Results & Data Vital Signs (Past 12 Hours) Vital Signs Temp Pulse Pulse Resp BP BP Pulse Ox 07/26/23 09:39 07/26/23 08:57 60 07/26/23 07:55 37.1 C 68 18 173/81 H 96 07/26/23 07:39 60 18 96 07/26/23 03:10 36.7 C 60 17 153/70 H 97 07/26/23 00:16 62 07/25/23 23:24 36.4 C L 61 18 187/76 H 97 O2 Del Method 07/26/23 09:39 Room Air 07/26/23 08:57 07/26/23 07:55 Room Air 07/26/23 07:39 Room Air 07/26/23 03:10 Room Air 07/26/23 00:16 07/25/23 23:24 Room Air (8) Hypothyroidism Hypothyroidism type: acquired Qualified Code(s): E03.9 - Hypothyroidism, unspecified (9) CAD (coronary artery disease) Coronary Disease-Associated Artery/Lesion type: unspecified vessel or lesion type [place] vs. transplanted heart: [place] heart Associated angina: without angina Qualified Code(s): I25.10 - Atherosclerotic heart disease of [place] coronary artery without angina pectoris (11) HTN (hypertension) Hypertension type: essential hypertension Qualified Code(s): I10 - Essential (primary) hypertension
[2023-07-26] MEDS: amLODIPine BESYLATE 5 MG TAB PO SCH (21:21)
[2023-07-27 06:40] LABS: Basophils # (auto) 0.05 K/uL (0.00-0.20); Basophils % (auto) 0.2 %; Eosinophils # (auto) 0.07 K/uL (0.00-0.50); Eosinophils % (auto) 0.3 %; Hematocrit (blood only) 33.9 % (42.0-52.0); Hemoglobin 11.2 g/dl (14.0-18.0); Immature Granulocytes # (auto) 0.32 K/uL (0.01-0.20); Immature Granulocytes % (auto) 1.4 %; Lymphocytes # (auto) 0.98 K/uL (1.20-3.40); Lymphocytes % (auto) 4.4 %; Mean Corpuscular Hemoglobin 30.7 pg (25.0-34.0); Mean Corpuscular Volume 92.9 fL (80.0-100.0); Monocytes # (auto) 1.24 K/uL (0.11-0.59); Monocytes % (auto) 5.5 %; Neutrophils # (auto) 19.79 K/uL (1.40-6.50); Neutrophils % (auto) 88.2 %; Platelet Count 253 K/uL (130-400); RDW Coefficient of Variation 15.7 % (11.5-14.5); RDW Standard Deviation 53.6 fL (36.4-46.3); Red Blood Count 3.65 M/uL (4.70-6.10); White Blood Count 22.45 K/ul (4.8-10.8)
[2023-07-27 06:56] LABS: Albumin Globulin Ratio 1.1 (0.9-2); Albumin Level 3.1 gm/dl (3.4-5.0); BUN Creatinine Ratio 11.3 (10-20); Bilirubin,Total 1.2 mg/dl (0.2-1.0); Calcium 8.3 mg/dl (8.6-10.3); Creatinine Clr Calc Pharmacy 67.7 ml/min; Est GFR (African American) 82.7 ml/min; Est GFR (Non-African American) 71.4 ml/min; Globulin 2.7 gm/dl (2.5-4.0); Potassium 4.1 mmol/L (3.5-5.1); Total Protein 5.8 gm/dl (6.0-8.3)
--- NOTE | 2023-07-27 08:37 | Pharmacy Report ---
Pharmacy PK ABX Note - Date of Service July 27, 2023 - Assessment and Plan - Assessment and Plan Assessment 83 year old M presenting to ED a day prior to admission with flulike symptoms with muscle aches, fever and chills for 7 to 10 days. Blood culture from 07/23 growing probable enterococcus with BCID2 indicating enterococcus faecium, not VRE gene detected. Per provider discussion with ID, start vancomycin and unasyn at this time. * Day #3 of antimicrobial therapy. * 07/23 blood cultures not finalized yet but still just 1 bottle with E. faecium (not VRE). 07/24 blood cultures with no growth to date. Another set of blood cultures drawn this AM. * Afebrile. Worsening of leukocytosis to 22.5k today. Renal fxn stable. Plan Vancomycin * Current regimen: 1500 mg IV every 24 hours * Random level obtained 07/27/23 resulted as 8.8 mcg/mL. This is predicted to achieve target AUC/AURORA of 400-600 mg/L.hr * Predicted AUC at steady state: 438 mg/L.hr * Continue 1500 mg IV every 24 hours * Repeat random level ordered for: 07/29/23 Unasyn * 3000 mg IV every 6 hours - remains appropriate Pharmacy will continue to follow and will adjust dose/frequency as necessary. Thank you. Pharmacy has transitioned to AUC monitoring for vancomycin. AUC/AURORA is the preferred PK/PD target and is associated with decreased risk of nephrotoxicity compared to traditional trough targets.
--- NOTE | 2023-07-27 12:44 | Infectious Disease Consult ---
Date of Service July 27, 2023 Telehealth Information I performed this visit using a real-time telehealth connection between my location and the patients location ([facility]). After connecting through interactive tele-video, patient was identified by name and date of and/or wristband check.Patient (or authorized healthcare motor vehicle representative) was informed that this was a telemedicine visit and it was being conducted confidentially over secure lines. My office door was closed and no one else was present in the room with me.Patient (or authorized healthcare motor vehicle representative) provided consent to proceed with the visit, expressed an understanding of privacy and security of the telemedicine visit, and gave permission to have a hospital motor vehicle representative in the room in order to assist with the visit and to conduct portions of the visit, as needed. I informed the patient (or authorized healthcare motor vehicle representative) that I reviewed their record and presented the opportunity for them to ask any questions regarding the visit today. The patient agreed to participate. Assessment & Plan (1) Bacteremia due to Enterococcus: Plan: Enterococcus is a gastrointestinal organism and is known to cause intra- abdominal infection and urinary tract infection, however, the CT of the abdomen and pelvis was clear and patient didn't have any GI or UTI symptoms. Enterococcus could still be encountered in central line associated bloodstream infection, endocarditis, ventilator associated pneumonia/tracheostomy status, or any body abscess. However, the patient does not have any central venous catheter. Thus, the potential sources would be superinfected necrotic mass, pneumonia, or endocarditis especially with pacemaker in place. My concern for pneumonia is low especially that he has not had severe respiratory symptoms which might lead to bacteremia. (2) Severe sepsis: (3) Mass in chest: (4) History of laryngeal cancer: (5) History of laryngectomy: (6) Tracheostomy in place: Plan Since he is going for the necrotic mass biopsy tomorrow, I would recommend sending for bacterial, fungal and AFB culture from the biopsy/aspirate. If the necrotic mass did not grow any organisms, then I would be concerned about endocarditis/CIED related infection. I totally agree with IV vancomycin for now. Please continue to send blood culture every 48 hours until negative. We will follow-up on all the cultures and determine the antibiotic plan accordingly. Thank you for consulting ID. We will continue to follow. History of Present Illness History of Present Illness Mr. 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 All of his vitals were within normal limits on admission; however, the next day, he started spiking fevers up to 39.2. Initial workup showed leukocytosis of 18.6 (ANC of 17), elevated lactate of 2.6, negative respiratory pathogen panel and shortly after admission, blood culture came back positive for Enterococcus faecium with negative van a/b gene. CT scan of the chest showed a 6 x 6 cm right infraclavicular/interpectoral necrotic mass with mild scattered ground-glass opacifications within the lower lobes. It further showed laryngectomy changes. CT abdomen and pelvis showed cholelithiasis with no gallbladder wall thickening and around 13 mm indeterminate lesion within the right kidney; otherwise, the rest of the findings were not impressive. Id team was consulted for further recommendations and to help guide antibiotic treatment. Allergies Allergy/AdvReac Type Severity Reaction Status Date / Time rosuvastatin [From Crestor] Allergy Unknown Unknown Verified 06/19/23 17:23 Home Medications Medication Instructions Recorded Confirmed Type levothyroxine 125 mcg tablet 125 mcg PO QAM 03/25/18 07/25/23 History nitroglycerin 0.4 mg sublingual 1 tab sublingual UD PRN Chest Pain 03/25/18 07/25/23 History tablet paroxetine HCl 20 mg tablet (Paxil) 20 mg PO HS 03/25/18 07/25/23 History clopidogrel 75 mg tablet 75 mg PO QAM 06/03/18 07/25/23 History ipratropium 0.5 mg-albuterol 3 mg 3 ml inhalation QID PRN Shortness 06/09/19 07/25/23 History (2.5 mg base)/3 mL nebulization Of Breath Or Wheezing soln albuterol sulfate 2.5 mg/3 mL 2.5 mg inhalation QID PRN 08/19/19 07/25/23 History (0.083 %) solution for nebulization Shortness Of Breath Or Wheezing amlodipine 5 mg tablet 5 mg PO HS 09/17/19 07/25/23 History atorvastatin 40 mg tablet (Lipitor) 40 mg PO HS 01/13/20 07/25/23 History polyethylene glycol 3350 17 gram 17 g PO DAILY PRN Constipation 11/02/20 07/25/23 History oral powder packet (Miralax) acetaminophen 500 mg tablet 1,000 mg PO QID PRN Fever Or Pain 09/13/21 07/25/23 History (Tylenol Extra Strength) apixaban 5 mg tablet (Eliquis) 5 mg PO BID 09/13/21 07/25/23 History budesonide 0.5 mg/2 mL suspension 0.5 mg inhalation DAILY 09/13/21 07/25/23 History for nebulization (Pulmicort) metoprolol succinate 25 mg 25 mg PO DAILY 09/13/21 07/25/23 History tablet,extended release 24 hr guaifenesin 600 mg tablet, 600 mg PO Q12 #30 tabs 09/29/21 07/25/23 Rx extended release 12 hr (Mucinex) amoxicillin 875 mg-potassium 1 tab PO BID #14 tabs 07/24/23 07/25/23 Rx clavulanate 125 mg tablet doxycycline hyclate 100 mg capsule 100 mg PO BID PRN rescue kit. 07/24/23 07/25/23 History omeprazole 20 mg capsule,delayed 20 mg PO DAILY 07/24/23 07/25/23 History release prednisone 10 mg tablet 10 mg PO UD 07/24/23 07/25/23 History Patient History Medical History Aspiration pneumonia History of CVA (cerebrovascular accident) February 2018, no deficits COPD (chronic obstructive pulmonary disease) Acute hypoxemic respiratory failure Peripheral eosinophilia Difficult airway for intubation H/o glidescope #4 with CEA 03/2018 Carotid artery stenosis with cerebral infarction over 8 weeks ago The patient presented to [facility] ED on 03/26/18 with expressive aphasia, left upper extremity numbness, left lower extremity weakness. Symptoms were resolving by the time the patient arrived in the ED. Pt had R CEA while inpatient on 03/29 Obesity Neck pain OCCASIONAL Sleep apnea CPAP History of radiation to head and neck region For laryngeal cancer 1986 Pharyngocutaneous fistula Anxiety Benign neoplasm of colon Cardiac pacemaker in situ 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 CAD (coronary artery disease) "1995 - CABG x 2" Gout Hypothyroidism Surgical History History of laryngectomy Hx of laryngectomy History of bronchoscopy History of tonsillectomy History of carotid endarterectomy RIGHT (MARCH 2018) History of cataract extraction with lens replacement cataract extraction with IOL implant and LRI left eye - 05/02/12 History of colonoscopy with polypectomy History of rotator cuff surgery Right - 2009 History of coronary artery bypass graft X2 VESSEL 1995 -- [place] Family History Mother Essential hypertension Stroke Sister Cancer Breast cancer Daughter Cancer Colon cancer Social History Smoking Status: Former smoker Tobacco Type: Cigarettes Second Hand Exposure: No; Do You Dip or Chew Tobacco: No; Hx Alcohol Use: No Hx Substance Use: No Preferred Language: Uzbek Communication Ability: Effective Communication Ability Comment: write answers to questions, unable to talk yet Visual Impairment: No Limitations Fulfillment Coordinator Required: No Beliefs That Will Affect Care: None marital status: Current Living Situation: Spouse Current Living Situation Comment: lives at home with current occupational status: retired Feels Safe at Home: Yes Assistive Devices: None Review of Systems Constitutional: fatigue and fever/chills Cardiovascular: no chest pain, or palpitations Respiratory: no shortness of breath, no cough Gastrointestinal: no abdominal pain, nausea or vomiting : No dysuria or hesitancy Neurologic: no dizziness or headache Physical Exam Couldn't be obtained as the consult was conducted via Telemed. Results & Data Vital Signs (Past 12 Hours) Vital Signs Temp Pulse Pulse Resp BP BP Pulse Ox 07/27/23 11:06 36.5 C 60 16 117/66 95 07/27/23 10:28 07/27/23 10:27 71 07/27/23 08:05 68 18 95 07/27/23 07:35 36.6 C 59 L 18 134/69 93 07/27/23 02:55 38.0 C H 68 20 154/65 H 95 07/27/23 02:51 61 O2 Del Method 07/27/23 11:06 Room Air 07/27/23 10:28 Room Air 07/27/23 10:27 07/27/23 08:05 Room Air 07/27/23 07:35 Room Air 07/27/23 02:55 Room Air 07/27/23 02:51 Laboratory Results Microbiology: 07/23: 1 of 4 bottles of blood culture growing Enterococcus faecium (ampicillin resistant but vancomycin susceptible) 07/24: 2 sets of blood culture negative to date 07/26: 2 sets of blood culture pending Diagnostic Findings CT chest on 07/23: 1. 6.2 x 6 cm right infraclavicular/interpectoral necrotic mass. Although pathologically indeterminate, this is neoplastic and may reflect a metastasis. 2. Mild scattered ground glass opacities within the lower lobes. Mild secretions within the trachea. The findings raise the possibility of aspiration. No consolidation. 3. Status post laryngectomy. 1 cm linear radiodensity extends between the tracheostomy site and the proximal esophagus. This is unchanged in position. This is likely iatrogenic. Correlation with procedural history is recommended. Transthoracic echo on 07/24: Showed a good ejection fraction (60-65%), aortic valve leaflets moderately calcified, [id number] aortic stenosis, and mitral valve is grossly normal.
--- NOTE | 2023-07-27 13:22 | Hospitalist Progress Note ---
Date of Service July 27, 2023 Assessment & Plan (1) Sepsis: (2) Bacteremia due to Enterococcus: Plan: Patient presented to the ED a day prior to admission with flulike symptoms with muscle aches, fever and chills for 7 to 10 days. His blood culture / came back positive for gram-positive cocci in chains PCR panel is positive for Enterococcus faecium; VRE gene in negative. Blood work shows leukocytosis, lactate of 2.6. CT abdomen and pelvis showed mild low bladder wall thickening. No other acute findings Echocardiogram shows EF of 60 to 65%; study technically difficult. Valve structures not well-visualized. blood culture from 3/291 out of 4 positive for Enterococcus faecium. Resistance to ampicillin, sensitive to vancomycin Blood culture from 3/304 out of 4 negative Blood culture from 4/1pending Stop ampicillin. Continue on vancomycin as per sensitivity. Appreciate infectious disease input history of CABG, sick sinus syndrome status post pacemaker Repeat blood culture pending: Patient has spikes of fever overnight Unsure regarding the source of infection; Recent skin lesion biopsy on July 02, 2023 on left arm. (3) Mass in chest: Plan: Patient had undergone CT chest/soft tissue neck on 07/24/2023; Found to have 6 cm right infraclavicular necrotic mass concerning for metastatic disease; also has cervical lymphadenopathy measuring 15 to 8 mm Will obtain oncology recommendation for further workup Eliquis on hold now if biopsy is pursued . (4) History of laryngectomy: (5) Tracheostomy in place: (6) Laryngeal cancer: Plan: History of laryngeal cancer; vocal cord SCC status post radiation, total laryngectomy Patient reports follow-up at [facility] 2 days prior to admission; Oncology to be consulted for workup of necrotic mass on chest. (7) COPD (chronic obstructive pulmonary disease): Plan: Continue home inhalers. Recently started on prednisone; currently on 5 mg once a day Will need to stress dose steroid if patient becomes hypotensive (8) Hypothyroidism: Plan: Continue levothyroxine (9) CAD (coronary artery disease): Plan: History of CABG Continue on Plavix and Lipitor CABG turning 1995 Patient started on Eliquis April 2020 after CEA with CVA since April 2020 (10) SSS (sick sinus syndrome): Plan: Status post pacemaker Echocardiogram as above (11) HTN (hypertension): Plan: Resume amlodipine and metoprolol. (12) Dyslipidemia: Plan: Continue Lipitor (13) Anxiety: Plan: Continue on Paxil Plan Time spent evaluating patient, direct bedside care, chart review, placing orders, interpretation of diagnostic studies, discussion with consultants, patient, and family members, as well as other required patient management activities is 50 minutes Please note the above document was generated using voice recognition software. It may contain grammatical, syntax or spelling errors. Any formal questions or concerns about the content, text or information contained within the body of this dictation should be directly addressed to the provider for clarification Admission and Anticipated Discharge Date Admission Date: July 25, 2023 Subjective Patient seen and examined at bedside. Overnight he had spikes of fever. He reports increased tiredness and fatigue today. No other significant over night events Review of Systems Review of Systems: All systems reviewed & are unremarkable except as noted in Subjective Physical Exam Physical Exam: Constitutional: Awake, alert oriented x 3. Able to voice; writes for communication Neck: Tracheostomy with TEP present; no overlying swelling/redness over tracheostomy site/flap. Respiratory: normal respiratory effort, lungs clear to auscultation, no wheeze, rales, rhonchi. Normal insp/exp effort, no accessory muscle use Cardiovascular: S1-S2, no murmur Chest: normal inspection of chest Abdomen: Soft, nontender Musculoskeletal: Biopsy site bandaged on left arm. Skin: no rashes, warm and dry normal turgor Neurologic: PERRL, EOMI, accommodation nl, no face palsy, no dysarthria CN's II- XI intact bilaterally and moves all extremities Psychiatric: A+Ox3, euthymic affect Results & Data Results & Data Vital Signs (Past 12 Hours) Vital Signs Temp Pulse Pulse Resp BP BP Pulse Ox 07/27/23 11:06 36.5 C 60 16 117/66 95 07/27/23 10:28 07/27/23 10:27 71 07/27/23 08:05 68 18 95 07/27/23 07:35 36.6 C 59 L 18 134/69 93 07/27/23 02:55 38.0 C H 68 20 154/65 H 95 07/27/23 02:51 61 O2 Del Method 07/27/23 11:06 Room Air 07/27/23 10:28 Room Air 07/27/23 10:27 07/27/23 08:05 Room Air 07/27/23 07:35 Room Air 07/27/23 02:55 Room Air 07/27/23 02:51 (8) Hypothyroidism Hypothyroidism type: acquired Qualified Code(s): E03.9 - Hypothyroidism, unspecified (9) CAD (coronary artery disease) Coronary Disease-Associated Artery/Lesion type: unspecified vessel or lesion type [place] vs. transplanted heart: [place] heart Associated angina: without angina Qualified Code(s): I25.10 - Atherosclerotic heart disease of [place] coronary artery without angina pectoris (11) HTN (hypertension) Hypertension type: essential hypertension Qualified Code(s): I10 - Essential (primary) hypertension
--- NOTE | 2023-07-27 14:53 | Oncology Consultation ---
Date of Consultation July 27, 2023 Assessment & Plan (1) Mass in chest: Recommend IR guided biopsy of this mass to get a tissue diagnosis. There is a broad differential diagnosis based on this presentation which can include recurrent malignancy versus lymphoma versus primary lung cancer. Once we have the results of the biopsy we will have further recommendations. Plan Thank you for this interesting oncological consult. Medical oncology will continue to follow the patient make appropriate recommendations. A total of 60 minutes was spent in counseling, coordination of care and review of prior records History of Present Illness Reason for Consultation: Infraclavicular mass, necrotic Attending Physician: Long Rodriguez MD History of Present Illness The patient is a very pleasant 83-year-old gentleman with a remote history of laryngeal cancer has been treated with radiation now presents to [facility] with flulike symptoms, muscle aches and pain for the last 7 to 10 days. Subsequently had imaging performed here which included a CT of the chest as well as CT of the soft tissue neck which revealed a 6.1 cm infra clavicular mass. The patient has a remote history of laryngeal cancer. He has never received chemotherapy. He is an ex-smoker, quit smoking in when he was diagnosed with laryngeal cancer. Medical oncology has been consulted to assist in management of this patient with newly identified infraclavicular mass Allergies Allergy/AdvReac Type Severity Reaction Status Date / Time rosuvastatin [From Crestor] Allergy Unknown Unknown Verified 06/19/23 17:23 Home Medications Medication Instructions Recorded Confirmed Type levothyroxine 125 mcg tablet 125 mcg PO QAM 03/25/18 07/25/23 History nitroglycerin 0.4 mg sublingual 1 tab sublingual UD PRN Chest Pain 03/25/18 07/25/23 History tablet paroxetine HCl 20 mg tablet (Paxil) 20 mg PO HS 03/25/18 07/25/23 History clopidogrel 75 mg tablet 75 mg PO QAM 06/03/18 07/25/23 History ipratropium 0.5 mg-albuterol 3 mg 3 ml inhalation QID PRN Shortness 06/09/19 07/25/23 History (2.5 mg base)/3 mL nebulization Of Breath Or Wheezing soln albuterol sulfate 2.5 mg/3 mL 2.5 mg inhalation QID PRN 08/19/19 07/25/23 History (0.083 %) solution for nebulization Shortness Of Breath Or Wheezing amlodipine 5 mg tablet 5 mg PO HS 09/17/19 07/25/23 History atorvastatin 40 mg tablet (Lipitor) 40 mg PO HS 01/13/20 07/25/23 History polyethylene glycol 3350 17 gram 17 g PO DAILY PRN Constipation 11/02/20 07/25/23 History oral powder packet (Miralax) acetaminophen 500 mg tablet 1,000 mg PO QID PRN Fever Or Pain 09/13/21 07/25/23 History (Tylenol Extra Strength) apixaban 5 mg tablet (Eliquis) 5 mg PO BID 09/13/21 07/25/23 History budesonide 0.5 mg/2 mL suspension 0.5 mg inhalation DAILY 09/13/21 07/25/23 History for nebulization (Pulmicort) metoprolol succinate 25 mg 25 mg PO DAILY 09/13/21 07/25/23 History tablet,extended release 24 hr guaifenesin 600 mg tablet, 600 mg PO Q12 #30 tabs 09/29/21 07/25/23 Rx extended release 12 hr (Mucinex) amoxicillin 875 mg-potassium 1 tab PO BID #14 tabs 07/24/23 07/25/23 Rx clavulanate 125 mg tablet doxycycline hyclate 100 mg capsule 100 mg PO BID PRN rescue kit. 07/24/23 07/25/23 History omeprazole 20 mg capsule,delayed 20 mg PO DAILY 07/24/23 07/25/23 History release prednisone 10 mg tablet 10 mg PO UD 07/24/23 07/25/23 History Patient History Medical History Aspiration pneumonia History of CVA (cerebrovascular accident) February 2018, no deficits COPD (chronic obstructive pulmonary disease) Acute hypoxemic respiratory failure Peripheral eosinophilia Difficult airway for intubation H/o glidescope #4 with CEA 03/2018 Carotid artery stenosis with cerebral infarction over 8 weeks ago The patient presented to [facility] ED on 03/26/18 with expressive aphasia, left upper extremity numbness, left lower extremity weakness. Symptoms were resolving by the time the patient arrived in the ED. Pt had R CEA while inpatient on 03/29 Obesity Neck pain OCCASIONAL Sleep apnea CPAP History of radiation to head and neck region For laryngeal cancer 1986 Pharyngocutaneous fistula Anxiety Benign neoplasm of colon Cardiac pacemaker in situ 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 CAD (coronary artery disease) "1995 - CABG x 2" Gout Hypothyroidism Surgical History History of laryngectomy Hx of laryngectomy History of bronchoscopy History of tonsillectomy History of carotid endarterectomy RIGHT (MARCH 2018) History of cataract extraction with lens replacement cataract extraction with IOL implant and LRI left eye - 05/02/12 History of colonoscopy with polypectomy History of rotator cuff surgery Right - 2009 History of coronary artery bypass graft X2 VESSEL 1995 -- MELCHOR LEIJA Family History Mother Essential hypertension Stroke Sister Cancer Breast cancer Daughter Cancer Colon cancer Social History Smoking Status: Former smoker Tobacco Type: Cigarettes Second Hand Exposure: No; Do You Dip or Chew Tobacco: No; Hx Alcohol Use: No Hx Substance Use: No Preferred Language: Mongolian Communication Ability: Effective Communication Ability Comment: write answers to questions, unable to talk yet Visual Impairment: No Limitations Content Publisher Required: No Beliefs That Will Affect Care: None marital status: Current Living Situation: Spouse Current Living Situation Comment: lives at home with current occupational status: retired Feels Safe at Home: Yes Safety Concerns: Feels Safe At This Time Assistive Devices: None Results & Data Vital Signs (Past 12 Hours) Vital Signs Temp Pulse Pulse Resp BP BP Pulse Ox 07/27/23 11:06 36.5 C 60 16 117/66 95 07/27/23 10:28 07/27/23 10:27 71 07/27/23 08:05 68 18 95 07/27/23 07:35 36.6 C 59 L 18 134/69 93 07/27/23 02:55 38.0 C H 68 20 154/65 H 95 O2 Del Method 07/27/23 11:06 Room Air 07/27/23 10:28 Room Air 07/27/23 10:27 07/27/23 08:05 Room Air 07/27/23 07:35 Room Air 07/27/23 02:55 Room Air
[2023-07-27] MEDS: guaiFENesin SUGAR FREE 200 MG/10 ML UDC PO SCH (20:46)
[2023-07-28 06:39] LABS: Basophils # (auto) 0.05 K/uL (0.00-0.20); Basophils % (auto) 0.4 %; Eosinophils # (auto) 0.16 K/uL (0.00-0.50); Eosinophils % (auto) 1.2 %; Hematocrit (blood only) 29.8 % (42.0-52.0); Hemoglobin 9.7 g/dl (14.0-18.0); Immature Granulocytes # (auto) 0.13 K/uL (0.01-0.20); Immature Granulocytes % (auto) 0.9 %; Lymphocytes # (auto) 1.05 K/uL (1.20-3.40); Lymphocytes % (auto) 7.6 %; Mean Corpuscular Hemoglobin 30.2 pg (25.0-34.0); Mean Corpuscular Hgb Conc 32.6 g/dL (32.0-36.0); Mean Corpuscular Volume 92.8 fL (80.0-100.0); Mean Platelet Volume 8.9 fL (9.4-12.4); Monocytes % (auto) 6.6 %; Neutrophils # (auto) 11.44 K/uL (1.40-6.50); Neutrophils % (auto) 83.3 %; Platelet Count 229 K/uL (130-400); RDW Coefficient of Variation 15.9 % (11.5-14.5); RDW Standard Deviation 53.8 fL (36.4-46.3); Red Blood Count 3.21 M/uL (4.70-6.10); White Blood Count 13.73 K/ul (4.8-10.8)
--- NOTE | 2023-07-28 07:05 | Electrocardiogram Report ---
Test Reason : Blood Pressure : / mmHG Vent. Rate : 067 BPM Atrial Rate : 067 BPM P-R Int : 172 ms QRS Dur : 094 ms QT Int : 398 ms P-R-T Axes : 070 076 078 degrees QTc Int : 420 ms Atrial-paced rhythm Abnormal ECG When compared with ECG of 24-JUL-2023 11:26, No significant change was found Confirmed by Carlos Mullen ([id number]) on 07/28/2023 7:05:17 AM Referred By: Neto Rasheed Confirmed By:Carlos Mullen
[2023-07-28 07:08] LABS: BUN Creatinine Ratio 13.8 (10-20); Calcium 7.7 mg/dl (8.6-10.3); Creatinine Clr Calc Pharmacy 61.4 ml/min; Est GFR (African American) 71.9 ml/min; Potassium 4.1 mmol/L (3.5-5.1)
--- NOTE | 2023-07-28 13:46 | Hospitalist Progress Note ---
Date of Service July 28, 2023 Assessment & Plan (1) Sepsis: (2) Bacteremia due to Enterococcus: Plan: Patient presented to the ED a day prior to admission with flulike symptoms with muscle aches, fever and chills for 7 to 10 days. His blood culture 04/30 came back positive for gram-positive cocci in chains PCR panel is positive for Enterococcus faecium; VRE gene in negative. Blood work shows leukocytosis, lactate of 2.6. CT abdomen and pelvis showed mild low bladder wall thickening. No other acute findings Echocardiogram shows EF of 60 to 65%; study technically difficult. Valve structures not well-visualized. blood culture from 3/291 out of 4 positive for Enterococcus faecium. Resistance to ampicillin, sensitive to vancomycin Blood culture from 3/304 out of 4 negative Blood culture from 4/1no growth for 24 hours Continue on vancomycin as per infectious disease input Repeat blood cultures has been negative so far. Unsure regarding the source of infection. Patient to undergo biopsy of the necrotic mass tomorrow by IR. It will be sent for Gram stain and culture, fungal culture and AFB culture Will follow-up on results. (3) Mass in chest: Plan: Patient had undergone CT chest/soft tissue neck on 07/24/2023; Found to have 6 cm right infraclavicular necrotic mass concerning for metastatic disease; also has cervical lymphadenopathy measuring 15 to 8 mm Eliquis on hold now for biopsy . Discussed with oncology; recommend biopsy of the mass and following up on results. 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 Recently started on prednisone; currently on 5 mg once a day. Being tapered off Will need to stress dose steroid if patient becomes hypotensive (8) Hypothyroidism: Plan: Continue levothyroxine (9) CAD (coronary artery disease): Plan: History of CABG Continue on Plavix and Lipitor CABG turning 1995 Patient started on Eliquis April 2020 after CEA with CVA since April 2020 (10) SSS (sick sinus syndrome): Plan: Status post pacemaker Echocardiogram as above (11) HTN (hypertension): Plan: Resume amlodipine and metoprolol. (12) Dyslipidemia: Plan: Continue Lipitor (13) Anxiety: Plan: Continue on Paxil Plan DVT prophylaxis; Eliquis currently on hold for procedure Full code Time spent evaluating patient, direct bedside care, chart review, placing orders, interpretation of diagnostic studies, discussion with consultants, patient, and family members, as well as other required patient management activities is 50 minutes Please note the above document was generated using voice recognition software. It may contain grammatical, syntax or spelling errors. Any formal questions or concerns about the content, text or information contained within the body of this dictation should be directly addressed to the provider for clarification Admission and Anticipated Discharge Date Admission Date: July 25, 2023 Subjective Patient seen and examined at bedside. He reports feeling better compared to yesterday. Had low-grade fever last night. Vitals are stable and saturating well on room air Review of Systems Review of Systems: All systems reviewed & are unremarkable except as noted in Subjective Physical Exam Physical Exam: Constitutional: Awake, alert oriented x 3. Able to voice; writes for communication Neck: Tracheostomy with TEP present; no overlying swelling/redness over tracheostomy site/flap. Respiratory: normal respiratory effort, lungs clear to auscultation, no wheeze, rales, rhonchi. Normal insp/exp effort, no accessory muscle use Cardiovascular: S1-S2, no murmur Chest: normal inspection of chest Abdomen: Soft, nontender Musculoskeletal: Biopsy site bandaged on left arm. Skin: no rashes, warm and dry normal turgor Neurologic: PERRL, EOMI, accommodation nl, no face palsy, no dysarthria CN's II- XI intact bilaterally and moves all extremities Psychiatric: A+Ox3, euthymic affect Results & Data Results & Data Vital Signs (Past 12 Hours) Vital Signs Temp Pulse Pulse Resp BP Pulse Ox O2 Del Method 07/28/23 10:57 37.0 C 60 19 119/61 95 Room Air 07/28/23 10:42 Room Air 07/28/23 09:03 60 07/28/23 08:23 60 16 93 Room Air 07/28/23 07:50 37.3 C 68 20 129/67 92 Room Air 07/28/23 05:03 37.4 C 07/28/23 03:30 38.1 C H 66 20 134/67 91 Room Air (8) Hypothyroidism Hypothyroidism type: acquired Qualified Code(s): E03.9 - Hypothyroidism, unspecified (9) CAD (coronary artery disease) Coronary Disease-Associated Artery/Lesion type: unspecified vessel or lesion type [place] vs. transplanted heart: nondalton heart Associated angina: without angina Qualified Code(s): I25.10 - Atherosclerotic heart disease of nond[place] coronary artery without angina pectoris (11) HTN (hypertension) Hypertension type: essential hypertension Qualified Code(s): I10 - Essential (primary) hypertension
[2023-07-29] MEDS: ALBUT/IPRATROP 3MG/0.5MG NEB 3 ML VIAL INH PRN (01:55)
[2023-07-29 04:50] LABS: Basophils # (auto) 0.04 K/uL (0.00-0.20); Basophils % (auto) 0.3 %; Eosinophils % (auto) 0.8 %; Hematocrit (blood only) 33.2 % (42.0-52.0); Hemoglobin 10.9 g/dl (14.0-18.0); Immature Granulocytes # (auto) 0.09 K/uL (0.01-0.20); Immature Granulocytes % (auto) 0.7 %; Lymphocytes % (auto) 4.1 %; Mean Corpuscular Hemoglobin 30.3 pg (25.0-34.0); Mean Corpuscular Hgb Conc 32.8 g/dL (32.0-36.0); Mean Corpuscular Volume 92.2 fL (80.0-100.0); Mean Platelet Volume 8.9 fL (9.4-12.4); Monocytes # (auto) 0.65 K/uL (0.11-0.59); Monocytes % (auto) 5.3 %; Neutrophils # (auto) 10.96 K/uL (1.40-6.50); Neutrophils % (auto) 88.8 %; Platelet Count 276 K/uL (130-400); RDW Coefficient of Variation 15.8 % (11.5-14.5); RDW Standard Deviation 53.1 fL (36.4-46.3); White Blood Count 12.34 K/ul (4.8-10.8)
[2023-07-29 05:02] LABS: BUN Creatinine Ratio 12.9 (10-20); Creatinine Clr Calc Pharmacy 66.3 ml/min; Est GFR (African American) 78.8 ml/min; Potassium 3.8 mmol/L (3.5-5.1)
--- NOTE | 2023-07-29 08:45 | Pharmacy Report ---
Pharmacy PK ABX Note - Date of Service July 29, 2023 - Assessment and Plan - Assessment and Plan Assessment 07/28: Continues on vancomycin for Enterococcus faecium bacteremia. Day # 5 vancomycin. Repeat blood cultures NGTD. Renal function at baseline. 83 year old M presenting to ED a day prior to admission with flulike symptoms with muscle aches, fever and chills for 7 to 10 days. Blood culture from 07/23 growing probable enterococcus with BCID2 indicating enterococcus faecium, not VRE gene detected. Per provider discussion with ID, start vancomycin and unasyn at this time. * 07/23 blood cultures not finalized yet but still just 1 bottle with E. faecium (not VRE). 07/24 blood cultures with no growth to date. Another set of blood cultures drawn this AM. Plan Vancomycin * Current regimen: 1500 mg IV every 24 hours * Random level this AM- 9.6mcg/mL (~18.5h level). Predicted to achieve ssAUC 424mg/L.hr (probability of AUC >400-65%). * Will optimize regimen to 1750mg IV q24h - predicted to achieve ssAUC 484mg/L.hr * Repeat level in ~ 48h. Pharmacy will continue to follow and will adjust dose/frequency as necessary. Thank you. Pharmacy has transitioned to AUC monitoring for vancomycin. AUC/AURORA is the preferred PK/PD target and is associated with decreased risk of nephrotoxicity compared to traditional trough targets.
[2023-07-29] MEDS: VANCOMYCIN HCL 1,750 MG in SODIUM CHLORIDE 0.9% 500 ML IV SCH (09:12)
--- NOTE | 2023-07-29 13:56 | Ultrasound Report ---
Ultrasound-guided right chest wall mass core biopsy INDICATION: 6 cm right chest wall mass; history of laryngeal carcinoma PROCEDURE: Procedure and risks were explained. Informed consent was obtained. A final timeout was com pleted. The right chest was prepped and draped in sterile fashion. 1% buffered lidocaine was utilized for skin anesthesia. Utilizing ultrasound guidance, a 17-gauge coaxial needle was advanced into the right chest wall mass. Ultrasound images were obtained. An 18-gauge core biopsy needle was advanced, and 3 cores were obtai ronel and given to the pathologist for review. The coaxial needle was removed and Band-Aid applied. The patient tolerated the procedure well. IMPRESSION: Right chest wall mass core biopsy as above. Performed, dictated, and signed by Warren Schmidt PA-C; to be co-signed by Dr. Andrew Siddiqui. Electronically signed by: Andrew Siddiqui M.D. 07/29/2023 2:59 PM
--- NOTE | 2023-07-29 17:20 | Hospitalist Progress Note ---
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 He is being managed for the following: Sepsis: Bacteremia due to Enterococcus: Patient presented to the ED a day prior to admission with flulike symptoms with muscle aches, fever and chills for 7 to 10 days. 07/24/2023 blood culture with Enterococcus faecium growth, 07/26 blood culture no growth so far, / blood cultures pending CT abdomen and pelvis showed mild low bladder wall thickening. No other acute findings. Urine analysis was negative for UTI. Echocardiogram shows EF of 60 to 65%; study technically difficult. Valve structures not well-visualized. No clear source of infection so far. blood culture from /291 out of 4 positive for Enterococcus faecium. Resistan ce to ampicillin, sensitive to vancomycin Blood culture from 3/304 out of 4 negative Blood culture from 4/1no growth for 48 hours Patient developed fever of 38.7 C soot blower of 07/28, blood culture resent. ID has evaluated, patient on vancomycin since 07/24, dose being monitored by pharmacy. Patient continues to feel better, WBC has been trending down, has been running fever on and off, will need ID re-eval likely tomorrow. Patient underwent biopsy 07/28. See below. Mass in the chest: CT chest/soft tissue neck on 07/24/2023 with 6 cm right infraclavicular necrotic mass concerning for metastatic disease. Also has cervical lymphadenopathy measuring 15 x 8 mm. Underwent biopsy 07/28. Await pathology results. Oncology following. History of laryngectomy: Tracheostomy in place: Laryngeal cancer: History of laryngeal cancer; vocal cord SCC status post radiation, total laryngectomy Patient reports follow-up at [facility] 2 days prior to admission; Oncology on board; underwent biopsy of the mass seen on CT of the soft tissue neck, follow. f/u oncology on dc. Other chronic medical conditions: Continue with/resume home meds as and when able COPDcontinue home inhalers. Recently started on prednisone, currently on 5 mg once a day, being tapered off. Hypothyroidism: Continue levothyroxine CAD, CABG: Continue Plavix and Lipitor. Patient started on Eliquis April 2020 after CEA with CVA. SSS: Status post pacemaker. Echocardiogram as above. Hypertension: Continue with home amlodipine and metoprolol. Dyslipidemia: Continue with Lipitor Anxiety: Continue with Paxil DVT prophylaxis: Eliquis was on hold for the procedure, will resume Eliquis. Full code Please note the above document was generated using voice recognition software. It may contain grammatical, syntax or spelling errors. Any formal questions or concerns about the content, text or information contained within the body of this dictation should be directly addressed to the provider for clarification Admission and Anticipated Discharge Date Admission Date: July 25, 2023 Subjective Patient seen and examined at bedside. He reports feeling better. Had temp of 38.7C early AM, bl cx resent, WBC has been trending down. Vitals are stable and saturating well on room air. Patient reports eating okay and moving bowels okay, denies any complaints, reports feeling better. Physical Exam Physical Exam: Constitutional: Awake, alert. Able to voice; writes for communication Neck: Tracheostomy with TEP present; no overlying swelling/redness over tracheostomy site/flap. Respiratory: normal respiratory effort, lungs clear to auscultation, no wheeze, rales, rhonchi. Normal insp/exp effort, no accessory muscle use Cardiovascular: S1-S2, no murmur Chest: normal inspection of chest Abdomen: Soft, nontender Musculoskeletal: Biopsy site bandaged on left arm. Skin: no rashes, warm and dry normal turgor Neurologic: PERRL, EOMI, accommodation nl, no face palsy, no dysarthria CN's II- XI intact bilaterally and moves all extremities Psychiatric: A+Ox3, euthymic affect Results & Data Results & Data Vital Signs (Past 12 Hours) Vital Signs Temp Pulse Resp BP Pulse Ox O2 Del Method FiO2 04/03/24 15:20 37.7 C H 68 19 157/67 H 92 Room Air 07/29/23 11:31 37.7 C H 59 L 19 124/69 95 Room Air 07/29/23 10:34 60 20 125/65 91 Room Air 07/29/23 10:04 65 20 130/70 93 Room Air 07/29/23 09:34 61 18 112/54 L 92 Room Air 07/29/23 09:04 59 L 18 124/63 91 Room Air 07/29/23 09:00 37.5 C 60 19 131/64 92 Room Air 07/29/23 07:52 37.4 C 63 20 137/56 L 91 Room Air 07/29/23 06:59 62 16 97 Trach Collar 21
[2023-07-29] MEDS: ALBUTEROL 0.083% NEBU SOLN 3 ML VIAL INH PRN (23:11)
[2023-07-30 07:17] LABS: Hematocrit (blood only) 33.4 % (42.0-52.0); Hemoglobin 11.1 g/dl (14.0-18.0); Mean Corpuscular Hemoglobin 30.2 pg (25.0-34.0); Mean Corpuscular Hgb Conc 33.2 g/dL (32.0-36.0); Mean Platelet Volume 8.8 fL (9.4-12.4); Platelet Count 301 K/uL (130-400); RDW Coefficient of Variation 15.8 % (11.5-14.5); RDW Standard Deviation 52.7 fL (36.4-46.3); Red Blood Count 3.67 M/uL (4.70-6.10); White Blood Count 8.18 K/ul (4.8-10.8)
[2023-07-30 07:35] LABS: BUN Creatinine Ratio 11.7 (10-20); Calcium 8.2 mg/dl (8.6-10.3); Creatinine Clr Calc Pharmacy 70.3 ml/min; Est GFR (African American) 85.9 ml/min; Est GFR (Non-African American) 74.2 ml/min; Magnesium 1.9 mg/dl (1.7-2.4); Phosphorus 3.2 mg/dl (2.5-4.9); Potassium 4.8 mmol/L (3.5-5.1)
[2023-07-30] MEDS ORDERED: Nursing to Pharmacy Communication SCH (08:15)
[2023-07-30] MEDS: APIXABAN 5 MG TABLET PO SCH (09:41)
--- NOTE | 2023-07-30 15:47 | Cardiology Consultation ---
Date of Consultation July 30, 2023 Assessment & Plan (1) Bacteremia due to Enterococcus: (2) Mass in chest: Medically complex 83-year-old male presents with preceding illness of 7 to 10 days with flulike symptoms, fevers, chills, and has been found to have persistent fever despite treatment with vancomycin. Patient found to have enterococcal bacteremia, VRE gene negative. He has a longstanding history of laryngeal carcinoma and underwent remote complex surgery as noted, with noted chest and neck radiation therapy. He has a tracheostomy, and there is clinical suspicion of underlying aspiration. Pulse oximetry stable at 96% on 8 L/min delivered by tracheostomy collar. Patient mentating well. He communicates by writing messages in a notebook, as per his usual outpatient baseline. He has a history of complex coronary heart disease and vascular disease with noted remote CABG, bilateral carotid endarterectomy, sick sinus syndrome requiring dual-chamber permanent pacemaker in 2018, and has a history of moderate aortic stenosis with preserved ejection fraction as noted on echocardiogram studies performed within the last 2 weeks on both an outpatient inpatient basis. Patient had a previous EGD performed in 2010 which was well-tolerated with noted findings of esophagitis at that time. Transesophageal echocardiogram requested by the hospitalist service and infectious disease given history of permanent pacemaker and enterococcal bacteremia. Patient with noted large infraclavicular mass which has been biopsied, pathology currently pending. Repeat cultures have been negative but patient has ongoing fevers. Clinical history certainly increases risk of complication with transesophageal echocardiogram. He is in sinus rhythm. Will hold dose of Eliquis tonight and tomorrow morning and will make n.p.o. after midnight for planned transesophageal echocardiogram with anesthesia assistance given his complex airway and multiorgan system systemic illness. I asked the patient if he would like me to discuss the plan for proceeding OT with any family members and he declined. Informed consent was obtained in the paper consent forms on his chart. Shyla Prasad DO History of Present Illness Attending Physician: Kerline Castellanos MD History of Present Illness Mr Locke is an 83 year old male seen in cardiology consultation per the request of Dr. Castellanos due to concerns of Enterococcus faecium bacteremia on 1 blood cultures obtained on 07/24/23 with repeat cultures negative in the interim while on therapy. Patient initially presented to the emergency department on 07/24/2023 with flulike symptoms including muscle aches, subjective fevers and chills. Symptoms had been going on for 7 to 10 days prior to presentation. Blood cultures were obtained and 1 of 2 samples was positive and therefore he was recalled to the hospital for further assessment. A CT of the neck and chest had been performed revealing a 15 mm x 8 mm cervical lymph node, and a large necrotic right infraclavicular/intrapectoral necrotic mass measuring 6.2 cm x 6 cm. The patient had subsequently undergone fine- needle aspiration of the mass. Pathology currently pending. He had ongoing fevers documented throughout the day on 07/30/2023, maximum temperature 38.4 C, with most recent temperature of 37.6 C. Viral respiratory panel was negative. He is currently on IV vancomycin. History: 1. Coronary heart disease with CABG x 2 in 1995 at [facility] 2. History of total laryngectomy for laryngeal carcinoma, right neck dissection, right subtotal thyroidectomy, right pectoral flap, tracheostomy 3. In 2018 he was diagnosed with sick sinus syndrome and underwent dual-chamber permanent pacemaker 4. History of TIA and had been found to have bilateral carotid stenosis and und erwent right carotid endarterectomy in 2018 and left carotid endarterectomy in 2019 5. Moderate aortic valve stenosis, outpatient echocardiogram 07/21/2023, normal LVEF 6. Paroxysmal atrial fibrillation. Allergies Allergy/AdvReac Type Severity Reaction Status Date / Time rosuvastatin [From Crestor] Allergy Unknown Unknown Verified 06/19/23 17:23 Home Medications Medication Instructions Recorded Confirmed Type levothyroxine 125 mcg tablet 125 mcg PO QAM 03/25/18 07/25/23 History nitroglycerin 0.4 mg sublingual 1 tab sublingual UD PRN Chest Pain 03/25/18 07/25/23 History tablet paroxetine HCl 20 mg tablet (Paxil) 20 mg PO HS 03/25/18 07/25/23 History clopidogrel 75 mg tablet 75 mg PO QAM 06/03/18 07/25/23 History ipratropium 0.5 mg-albuterol 3 mg 3 ml inhalation QID PRN Shortness 06/09/19 07/25/23 History (2.5 mg base)/3 mL nebulization Of Breath Or Wheezing soln albuterol sulfate 2.5 mg/3 mL 2.5 mg inhalation QID PRN 08/19/19 07/25/23 History (0.083 %) solution for nebulization Shortness Of Breath Or Wheezing amlodipine 5 mg tablet 5 mg PO HS 09/17/19 07/25/23 History atorvastatin 40 mg tablet (Lipitor) 40 mg PO HS 01/13/20 07/25/23 History polyethylene glycol 3350 17 gram 17 g PO DAILY PRN Constipation 11/02/20 07/25/23 History oral powder packet (Miralax) acetaminophen 500 mg tablet 1,000 mg PO QID PRN Fever Or Pain 09/13/21 07/25/23 History (Tylenol Extra Strength) apixaban 5 mg tablet (Eliquis) 5 mg PO BID 09/13/21 07/25/23 History budesonide 0.5 mg/2 mL suspension 0.5 mg inhalation DAILY 09/13/21 07/25/23 History for nebulization (Pulmicort) metoprolol succinate 25 mg 25 mg PO DAILY 09/13/21 07/25/23 History tablet,extended release 24 hr guaifenesin 600 mg tablet, 600 mg PO Q12 #30 tabs 09/29/21 07/25/23 Rx extended release 12 hr (Mucinex) amoxicillin 875 mg-potassium 1 tab PO BID #14 tabs 07/24/23 07/25/23 Rx clavulanate 125 mg tablet doxycycline hyclate 100 mg capsule 100 mg PO BID PRN rescue kit. 07/24/23 07/25/23 History omeprazole 20 mg capsule,delayed 20 mg PO DAILY 07/24/23 07/25/23 History release prednisone 10 mg tablet 10 mg PO UD 07/24/23 07/25/23 History Patient History Medical History Aspiration pneumonia History of CVA (cerebrovascular accident) February 2018, no deficits COPD (chronic obstructive pulmonary disease) Acute hypoxemic respiratory failure Peripheral eosinophilia Difficult airway for intubation H/o glidescope #4 with CEA 03/2018 Carotid artery stenosis with cerebral infarction over 8 weeks ago The patient presented to [facility] ED on 03/26/18 with expressive aphasia, left upper extremity numbness, left lower extremity weakness. Symptoms were resolving by the time the patient arrived in the ED. Pt had R CEA while inpatient on 03/29 Obesity Neck pain OCCASIONAL Sleep apnea CPAP History of radiation to head and neck region For laryngeal cancer 1986 Pharyngocutaneous fistula Anxiety Benign neoplasm of colon Cardiac pacemaker in situ 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 CAD (coronary artery disease) "1996 - CABG x 2" Gout Hypothyroidism Surgical History History of laryngectomy Hx of laryngectomy History of bronchoscopy History of tonsillectomy History of carotid endarterectomy RIGHT (MARCH 2018) History of cataract extraction with lens replacement cataract extraction with IOL implant and LRI left eye - 05/02/12 History of colonoscopy with polypectomy History of rotator cuff surgery Right - 2009 History of coronary artery bypass graft X2 VESSEL 1995 -- [facility] LISS Family History Mother Essential hypertension Stroke Sister Cancer Breast cancer Daughter Cancer Colon cancer Social History Smoking Status: Former smoker Tobacco Type: Cigarettes Second Hand Exposure: No; Do You Dip or Chew Tobacco: No; Hx Alcohol Use: No Hx Substance Use: No Preferred Language: Ethiopian Communication Ability: Effective Communication Ability Comment: write answers to questions, unable to talk yet Visual Impairment: No Limitations Solutions Engineer Required: No Beliefs That Will Affect Care: None marital status: Current Living Situation: Spouse Current Living Situation Comment: lives at home with current occupational status: retired Feels Safe at Home: Yes Safety Concerns: Feels Safe At This Time Assistive Devices: None Review of Systems Review of Systems: All systems reviewed & are unremarkable except as noted in HPI & below Physical Exam Constitutional: Chronically ill in appearance without acute distress Neck: Tracheostomy site apparent Respiratory: Auscultation: no rales and no rhonchi Cardiovascular: Rate/Rhythm: regular rate and regular rhythm Heart Sounds: + murmur (1/6 SM ) Extremities: no edema Chest (Breasts): Additional Comments: Right infraclavicular mass, nontender Gastrointestinal (Abdomen): normal bowel sounds, soft, nontender, no hepatosplenomegaly Neurologic: PERRL, EOMI, accommodation nl, no face palsy, no dysarthria Results & Data Vital Signs (Past 12 Hours) Vital Signs Temp Pulse Pulse Resp BP BP Pulse Ox 07/30/23 11:44 36.8 C 60 18 145/64 H 94 07/30/23 08:24 07/30/23 08:00 60 07/30/23 07:39 37.3 C 61 20 129/67 94 07/30/23 07:13 80 20 92 07/30/23 03:41 37.4 C 60 18 144/70 H 96 O2 Del Method O2 Flow Rate FiO2 07/30/23 11:44 Trach Collar 8 07/30/23 08:24 Trach Collar 8 35 07/30/23 08:00 07/30/23 07:39 Trach Collar 8 07/30/23 07:13 Trach Collar 7 35 07/30/23 03:41 Trach Collar Laboratory Results CBC 07/30/23 Range/Units 06:42 WBC 8.18 (4.8-10.8) K/ul RBC 3.67 L (4.70-6.10) M/uL Hgb 11.1 L (14.0-18.0) g/dl Hct 33.4 L (42.0-52.0) % Plt Count 301 (130-400) K/uL Comprehensive Metabolic Panel 07/30/23 Range/Units 06:42 Sodium 134 L (136-145) mmol/L Potassium 4.8 D (3.5-5.1) mmol/L Chloride 99 (98-107) mmol/L Carbon Dioxide 29 (21-32) mmol/L BUN 11 (6-23) mg/dl Creatinine 0.94 (0.6-1.4) mg/dl Glucose 92 (70-99(Fasting)) mg/dl Calcium 8.2 L (8.6-10.3) mg/dl Intake and Output 07/30/23 07/30/23 07/30/23 06:59 14:59 22:59 Intake Total 200 / 975 655 / 655 Output Total Balance 200 / 975 654 / 654 Intake: IV 535 / 535 Vancomycin HCl 1,750 mg In 535 / 535 Sodium Chloride 0.9% 500 ml @ 200 mls/hr IV Q24H [facility] Rx#: [id number] Oral 200 / 440 120 / 120 Output: # Bowel Movements Other: # Unmeasured Voids 1 3 Weight 99.6 kg Weight Measurement Method Built in [facility] Diagnostic Findings EKG performed 07/25/2023: Sinus rhythm with atrial pacing at 67 bpm, tribal QRS complexes, no significant repolarization abnormalities, QT interval normal 420 ms.
--- NOTE | 2023-07-30 15:55 | Anesthesiology Consultation ---
Date of Service July 30, 2023 Assessment & Plan (1) Encounter for pre-operative examination: Chart Review Chart Review: Acceptable Risk for Surgery (patient has had a laryngectomy and is on trach collar oxygen) History Height/Weight Height: 5 ft 11 in Weight: 99.6 kg Allergies Allergy/AdvReac Type Severity Reaction Status Date / Time rosuvastatin [From Crestor] Allergy Unknown Unknown Verified 06/19/23 17:23 Medications Home Medications Medication Instructions Recorded Confirmed Last Taken levothyroxine 125 mcg tablet 125 mcg PO QAM 03/25/18 07/25/23 06/19/23 nitroglycerin 0.4 mg sublingual 1 tab sublingual UD PRN Chest Pain 03/25/18 07/25/23 Unknown tablet paroxetine HCl 20 mg tablet (Paxil) 20 mg PO HS 03/25/18 07/25/23 06/18/23 clopidogrel 75 mg tablet 75 mg PO QAM 06/03/18 07/25/23 06/19/23 ipratropium 0.5 mg-albuterol 3 mg 3 ml inhalation QID PRN Shortness 06/09/19 07/25/23 09/15/19 (2.5 mg base)/3 mL nebulization Of Breath Or Wheezing soln albuterol sulfate 2.5 mg/3 mL 2.5 mg inhalation QID PRN 08/19/19 07/25/23 01/13/20 (0.083 %) solution for nebulization Shortness Of Breath Or Wheezing amlodipine 5 mg tablet 5 mg PO HS 09/17/19 07/25/23 06/18/23 atorvastatin 40 mg tablet (Lipitor) 40 mg PO HS 01/13/20 07/25/23 06/18/23 polyethylene glycol 3350 17 gram 17 g PO DAILY PRN Constipation 11/02/20 07/25/23 10/30/20 oral powder packet (Miralax) acetaminophen 500 mg tablet 1,000 mg PO QID PRN Fever Or Pain 09/13/21 07/25/23 Unknown (Tylenol Extra Strength) apixaban 5 mg tablet (Eliquis) 5 mg PO BID 09/13/21 07/25/23 06/19/23 budesonide 0.5 mg/2 mL suspension 0.5 mg inhalation DAILY 09/13/21 07/25/23 Unknown for nebulization (Pulmicort) metoprolol succinate 25 mg 25 mg PO DAILY 09/13/21 07/25/23 06/19/23 tablet,extended release 24 hr guaifenesin 600 mg tablet, 600 mg PO Q12 #30 tabs 09/29/21 07/25/23 Unknown extended release 12 hr (Mucinex) amoxicillin 875 mg-potassium 1 tab PO BID #14 tabs 07/24/23 07/25/23 Unknown clavulanate 125 mg tablet doxycycline hyclate 100 mg capsule 100 mg PO BID PRN rescue kit. 07/24/23 07/25/23 Unknown omeprazole 20 mg capsule,delayed 20 mg PO DAILY 07/24/23 07/25/23 Unknown release prednisone 10 mg tablet 10 mg PO UD 07/24/23 07/25/23 Unknown Active Medications Generic Name Dose Route Start Last Admin Trade Name Freq PRN Reason Stop Dose Admin Albuterol 2.5 mg 07/25/23 13:47 07/29/23 23:11 Albuterol 0.083% Nebu Soln 3 Ml Vial INH 08/24/23 13:46 2.5 mg QID PRN Administration Shortness Of Breath Or Wheezing Protocol Albuterol 3 ml 07/25/23 13:47 07/29/23 06:59 Albut/Ipratrop 3mg/0.5mg Neb 3 Ml Vial INH 08/24/23 13:46 3 ml QID PRN Administration Shortness Of Breath Or Wheezing Protocol Amlodipine Besylate 5 mg 07/26/23 21:00 07/29/23 20:14 Amlodipine Besylate 5 Mg Tab PO 08/25/23 20:59 5 mg HS HUNG Administration Apixaban 5 mg 07/30/23 09:00 07/30/23 09:41 Apixaban 5 Mg Tablet PO 08/29/23 08:59 5 mg BID HUNG Administration Atorvastatin Calcium 40 mg 07/25/23 21:00 07/29/23 20:14 Atorvastatin 40 Mg Tab PO 08/24/23 20:59 40 mg HS HUNG Administration Budesonide 0.5 mg 07/26/23 07:00 07/30/23 07:09 Budesonide 0.5 Mg/2 Ml Vial (Pulmicort) INH 08/25/23 06:59 0.5 mg 0700 HUNG Administration Clopidogrel Bisulfate 75 mg 07/26/23 09:00 07/30/23 09:41 Clopidogrel Bisulfate 75 Mg Tab PO 08/25/23 08:59 75 mg QAM HUNG Administration Guaifenesin 400 mg 07/27/23 21:00 07/30/23 09:44 Guaifenesin Sugar Free 200 Mg/10 Ml Udc PO 08/26/23 20:59 Not Given BID HUNG Vancomycin HCl 1,750 mg/ 535 mls @ 200 mls/hr 07/29/23 09:00 07/30/23 14:13 Sodium Chloride IV 08/09/23 10:59 Infused Q24H HUNG Infusion Levothyroxine Sodium 125 mcg 07/26/23 06:30 07/30/23 07:06 Levothyroxine Sodium 125 Mcg Tablet PO 08/25/23 06:29 125 mcg DAILYBB HUNG Administration Metoprolol Succinate 25 mg 07/26/23 09:00 07/30/23 09:41 Metoprolol Succ 25mg Ext Rel Tab PO 08/25/23 08:59 25 mg DAILY HUNG Administration Pantoprazole Sodium 40 mg 07/26/23 09:00 07/30/23 09:42 Pantoprazole 40 Mg Tab PO 08/25/23 08:59 40 mg DAILY HUNG Administration Paroxetine HCl 20 mg 07/25/23 21:00 07/29/23 20:14 Paroxetine Hcl 20 Mg Tab PO 08/24/23 20:59 20 mg HS HUNG Administration Prednisone 5 mg 07/26/23 09:00 07/30/23 09:42 Prednisone 5 Mg Tab PO 07/31/23 08:59 5 mg DAILY HUNG Administration Past Medical History Medical History Aspiration pneumonia History of CVA (cerebrovascular accident) February 2018, no deficits COPD (chronic obstructive pulmonary disease) Acute hypoxemic respiratory failure Peripheral eosinophilia Difficult airway for intubation H/o glidescope #4 with CEA 03/2018 Carotid artery stenosis with cerebral infarction over 8 weeks ago The patient presented to [facility] ED on 03/26/18 with expressive aphasia, left upper extremity numbness, left lower extremity weakness. Symptoms were resolving by the time the patient arrived in the ED. 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 CAD (coronary artery disease) "1995 - CABG x 2" Gout Hypothyroidism Past Family History Family History Mother Essential hypertension Stroke Sister Cancer Breast cancer Daughter Cancer Colon cancer Past Surgical History Surgical History History of laryngectomy Hx of laryngectomy History of bronchoscopy History of tonsillectomy History of carotid endarterectomy RIGHT (MARCH 2018) History of cataract extraction with lens replacement cataract extraction with IOL implant and LRI left eye - 05/02/12 History of colonoscopy with polypectomy History of rotator cuff surgery Right - 2009 History of coronary artery bypass graft X2 VESSEL 1995 -- [facility] Social History Smoking Status: Former smoker tobacco type: cigarettes Do You Dip or Chew Tobacco: No Hx Alcohol Use: No Alcohol type: beer, wine and hard liquor alcohol intake frequency: holidays/special occasions only Hx Substance Use: No substance use type: does not use Physical Exam Vital Signs Last Vital Signs Temp 37.6 C H 07/30/23 15:23 Pulse 66 07/30/23 15:37 Resp 16 07/30/23 15:23 BP 133/79 07/30/23 15:23 Pulse Ox 96 07/30/23 15:23 O2 Del Method Trach Collar 07/30/23 15:23 O2 Flow Rate 8 07/30/23 15:23 FiO2 35 07/30/23 08:24 Testing Laboratory Results 07/30/23 06:42 07/30/23 06:42 PT 11.1 Seconds (9.0-12.0) 07/25/23 Unknown INR 1.0 (0.9-1.1) 07/25/23 Unknown APTT 31 Seconds (21-31) 07/25/23 Unknown Urine Color Yellow 07/25/23 23:30 Urine Appearance Clear (Clear) 07/25/23 23:30 Urine pH 7.0 (4.5-7.5) 07/25/23 23:30 Ur Specific [place] 1.030 (1.000-1.030) 07/25/23 23:30 Urine Protein Negative (Negative) 07/25/23 23:30 Urine Glucose (UA) Negative (Negative) 07/25/23 23:30 Urine Ketones Negative (Negative) 07/25/23 23:30 Urine Nitrite Negative (Negative) 07/25/23 23:30 Ur Leukocyte Esterase Negative (Negative) 07/25/23 23:30 07/25/23 11:31 Aerobic Blood Culture - Final Blood No growth in Aerobic bottle after 5 days. Anaerobic Blood Culture - Final No growth in Anaerobic bottle after 5 days. 07/25/23 Unknown Aerobic Blood Culture - Final Blood No growth in Aerobic bottle after 5 days. Anaerobic Blood Culture - Final No growth in Anaerobic bottle after 5 days. 07/29/23 04:17 Aerobic Blood Culture - Preliminary Blood No growth in Aerobic bottle after 24 hours. Anaerobic Blood Culture - Preliminary No growth in Anaerobic bottle after 24 hours. 07/29/23 04:17 Aerobic Blood Culture - Preliminary Blood No growth in Aerobic bottle after 24 hours. Anaerobic Blood Culture - Preliminary No growth in Anaerobic bottle after 24 hours. 07/27/23 05:57 Aerobic Blood Culture - Preliminary Blood No growth in Aerobic bottle after 48 hours. Anaerobic Blood Culture - Preliminary No growth in Anaerobic bottle after 48 hours. 07/27/23 05:47 Aerobic Blood Culture - Preliminary Blood No growth in Aerobic bottle after 48 hours. Anaerobic Blood Culture - Preliminary No growth in Anaerobic bottle after 48 hours. Echocardiogram Date: 07/25/23 EF: 60-65% LV Function: normal Valvular Disease: + (mild to moderate)
[2023-07-30] MEDS: ACETAMINOPHEN SUSP 160 MG/5 ML BTL PO PRN (16:21)
--- NOTE | 2023-07-30 16:37 | Hematology/Oncology Prog Note ---
Date of Service July 30, 2023 Assessment & Plan (1) Squamous cell carcinoma of thoracic region: Plan: Biopsy results are back and are consistent with squamous cell carcinoma. This may very well be originating out of the head and neck given his prior history of laryngeal cancer fall may be completely different primary especially related to the lung at this point my recommendation would be completion of workup especially if the patient is interested. For this I would recommend a PET CT scan. Given the findings on the CT of the chest I do not think that the patient will be a candidate for surgical excision and we will have to most likely treat him palliatively with chemotherapy with a combination of chemotherapy plus immunotherapy. This was made clear to the patient and his . We will work to get a PET CT scan once the patient is discharged. We will start the patient on palliative systemic treatment on an outpatient basis. Plan medical oncology will continue to follow the patient make appropriate recommendations. Admission and Anticipated Discharge Date Admission Date: July 25, 2023 Subjective Has a trach tube. Has occasional difficulty talking and swallowing. Reports no other symptoms. Reports no fever or chills. Reports no nausea vomiting. Review of Systems Review of Systems: Other Constitutional: as per Subjective / HPI Eyes: as per Subjective / HPI Ear, Nose, Mouth, Throat: as per Subjective / HPI Respiratory: as per Subjective / HPI Cardiovascular: as per Subjective / HPI Gastrointestinal: as per Subjective / HPI Genitourinary: + as per Subjective / HPI Musculoskeletal: as per Subjective / HPI Integumentary: as per Subjective / HPI Neurologic: as per Subjective / HPI Psychiatric: as per Subjective / HPI Endocrine: as per Subjective / HPI Physical Exam 2 Constitutional: WD/WN, vitals as above Eyes: PERRL, conjunctivae normal, anicteric sclerae ENMT: external ear and nose normal, oropharynx normal Neck: trachea midline, no thyromegaly Respiratory: normal respiratory effort, lungs clear to auscultation Cardiovascular: RRR, no murmur, no edema Gastrointestinal (Abdomen): normal bowel sounds, soft, nontender, no hepatosplenomegaly Musculoskeletal: no cyanosis or clubbing, extremities motor strength 5/5 Results & Data Vital Signs (Past 12 Hours) Vital Signs Temp Pulse Pulse Resp BP BP Pulse Ox 07/30/23 15:37 66 07/30/23 15:23 37.6 C H 69 16 133/79 96 07/30/23 11:44 36.8 C 60 18 145/64 H 94 07/30/23 08:24 07/30/23 08:00 60 07/30/23 07:39 37.3 C 61 20 129/67 94 07/30/23 07:13 80 20 92 O2 Del Method O2 Flow Rate FiO2 07/30/23 15:37 07/30/23 15:23 Trach Collar 8 07/30/23 11:44 Trach Collar 8 07/30/23 08:24 Trach Collar 8 35 07/30/23 08:00 07/30/23 07:39 Trach Collar 8 07/30/23 07:13 Trach Collar 7 35
--- NOTE | 2023-07-30 17:29 | Hospitalist Progress Note ---
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 He is being managed for the following: Sepsis: Bacteremia due to Enterococcus: Patient presented to the ED a day prior to admission with flulike symptoms with muscle aches, fever and chills for 7 to 10 days. 07/24/2023 blood culture with Enterococcus faecium growth, 07/26 blood culture no growth so far, 07/[address] abdomen and pelvis showed mild low bladder wall thickening. No other acute findings. Urine analysis was negative for UTI. Echocardiogram shows EF of 60 to 65%; study technically difficult. Valve structures not well-visualized. No clear source of infection so far. blood culture from /291 out of 4 positive for Enterococcus faecium. 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 ID has evaluated, patient on vancomycin since 07/24, dose being monitored by pharmacy. Patient continues to feel better, WBC has been trending down, has been running fever on and off, d/w ID, recommends DEREK, d/w cardio villalba for derek delmer. Patient underwent biopsy 07/28. See below. Mass in the chest: CT chest/soft tissue neck on 07/24/2023 with 6 cm right infraclavicular necrotic mass concerning for metastatic disease. Also has cervical lymphadenopathy measuring 15 x 8 mm. Underwent biopsy 07/28. Await pathology results. Oncology following. f/u onco on dc. History of laryngectomy: Tracheostomy in place: Laryngeal cancer: History of laryngeal cancer; vocal cord SCC status post radiation, total laryngectomy Patient reports follow-up at [facility] 2 days prior to admission; Oncology on board; underwent biopsy of the mass seen on CT of the soft tissue neck, follow. f/u oncology on dc. Other chronic medical conditions: Continue with/resume home meds as and when able COPDcontinue home inhalers. Recently started on prednisone, currently on 5 mg once a day, being tapered off. Hypothyroidism: Continue levothyroxine CAD, CABG: Continue Plavix and Lipitor. Patient started on Eliquis April 2020 after CEA with CVA. SSS: Status post pacemaker. Echocardiogram as above. Hypertension: Continue with home amlodipine and metoprolol. Dyslipidemia: Continue with Lipitor Anxiety: Continue with Paxil DVT prophylaxis: Eliquis on hold for possible derek delmer. Full code Please note the above document was generated using voice recognition software. It may contain grammatical, syntax or spelling errors. Any formal questions or concerns about the content, text or information contained within the body of this dictation should be directly addressed to the provider for clarification Admission and Anticipated Discharge Date Admission Date: July 25, 2023 Subjective Patient seen and examined at bedside. He reports feeling better. still running low grade fever, WBC has been trending down. Vitals are stable and saturating well on room air. Patient reports eating okay and moving bowels okay, denies any complaints, reports feeling better. Pt's at bedside; updated on plan of care. D/w ID, recommends DEREK. D/w cardio plan for DEREK delmer. Physical Exam Physical Exam: Constitutional: Awake, alert. Able to voice; writes for communication Neck: Tracheostomy with TEP present; no overlying swelling/redness over tracheostomy site/flap. Respiratory: normal respiratory effort, lungs clear to auscultation, no wheeze, rales, rhonchi. Normal insp/exp effort, no accessory muscle use Cardiovascular: S1-S2, no murmur Chest: normal inspection of chest Abdomen: Soft, nontender Musculoskeletal: Biopsy site bandaged on left arm. Skin: no rashes, warm and dry normal turgor Neurologic: PERRL, EOMI, accommodation nl, no face palsy, no dysarthria CN's II- XI intact bilaterally and moves all extremities Psychiatric: A+Ox3, euthymic affect Results & Data Results & Data Vital Signs (Past 12 Hours) Vital Signs Temp Pulse Pulse Resp BP BP Pulse Ox 07/30/23 15:37 66 07/30/23 15:23 37.6 C H 69 16 133/79 96 07/30/23 11:44 36.8 C 60 18 145/64 H 94 07/30/23 08:24 07/30/23 08:00 60 07/30/23 07:39 37.3 C 61 20 129/67 94 07/30/23 07:13 80 20 92 O2 Del Method O2 Flow Rate FiO2 07/30/23 15:37 07/30/23 15:23 Trach Collar 8 07/30/23 11:44 Trach Collar 8 07/30/23 08:24 Trach Collar 8 35 07/30/23 08:00 07/30/23 07:39 Trach Collar 8 07/30/23 07:13 Trach Collar 7 35
[2023-07-31] MEDS ORDERED: methylPREDNISolone 125 MG/2 ML VIAL IV STA (00:46)
[2023-07-31] MEDS: ERTAPENEM SODIUM 1,000 MG in SYRINGE 0 ML IV SCH (01:42)
[2023-07-31] MEDS: MAGNESIUM SULFATE / D5W 1 GM/100 ML BAG IV ONE (01:43)
[2023-07-31] MEDS: methylPREDNISolone 20 MG in SYRINGE 0 ML IV ONE (01:43)
[2023-07-31 05:38] LABS: Hematocrit (blood only) 35.6 % (42.0-52.0); Hemoglobin 11.6 g/dl (14.0-18.0); Mean Corpuscular Hemoglobin 29.7 pg (25.0-34.0); Mean Corpuscular Hgb Conc 32.6 g/dL (32.0-36.0); Mean Platelet Volume 8.7 fL (9.4-12.4); Platelet Count 300 K/uL (130-400); RDW Coefficient of Variation 15.3 % (11.5-14.5); RDW Standard Deviation 50.8 fL (36.4-46.3); Red Blood Count 3.91 M/uL (4.70-6.10); White Blood Count 8.72 K/ul (4.8-10.8)
[2023-07-31 06:05] LABS: BUN Creatinine Ratio 12.9 (10-20); Calcium 8.1 mg/dl (8.6-10.3); Creatinine Clr Calc Pharmacy 77.8 ml/min; Est GFR (African American) 92.7 ml/min; Magnesium 2.1 mg/dl (1.7-2.4); Phosphorus 2.8 mg/dl (2.5-4.9); Potassium 4.2 mmol/L (3.5-5.1)
--- NOTE | 2023-07-31 07:12 | XRay Report ---
SINGLE VIEW CHEST CLINICAL HISTORY: Cough and dyspnea. FINDINGS: 3 AP, portable, upright chest radiographs are compared to study dated 07/25/2023 and correla carli with chest CT dated 07/24/2023. The examination is degraded by portable technique and apical lordo tic positioning. Surgical clips are seen in the lower neck. The patient is status post midline sterno armando. A 2-lead cardiac pacemaker is unchanged in position. The heart is enlarged noting atherosclerot ic calcification of the thoracic aorta. The pulmonary vasculature is nondistended congested. Chronic interstitial thickening is similar to previous. There is bibasilar scarring/atelectasis. No airspace consolidation or large pleural effusion is identified. No pneumothorax is seen. The skeletal structur es are osteopenic. The bony thorax is grossly intact. Arthritic change is seen in the shoulders. IMPRESSION: 1. Cardiomegaly and cardiac pacemaker without radiographic evidence of congestive failure. 2. No airspace consolidation or large pleural effusion is identified. ACT 112: Negative or not required by law. Electronically signed by: Joby Mccloud M.D. 07/31/2023 7:11 AM
--- NOTE | 2023-07-31 07:20 | History & Physical Bridge Note ---
Date of Service July 31, 2023 History & Physical Bridge Note I have examined the patient, reviewed the History & Physical and in the interval since the performance of the History & Physical I have noted the following changes of clinical significance: no changes noted. Patient with increased oxygen requirement overnight last night and noted ongoing fever. Case discussed with anesthesia, and we are in agreement with regards of the patient is high risk for complication with regards to sedation, however the clinical situation necessitates urgent procedure.
[2023-07-31] MEDS: PROMETHAZINE HCL 6.25 MG in SODIUM CHLORIDE 0.9% 50 ML IV STA (07:29)
--- NOTE | 2023-07-31 08:25 | Anesthesiology Progress Note ---
Date of Service July 31, 2023 Anesthesia Post Procedure Vital Signs Vital Signs: Temp Pulse Pulse Resp BP BP Pulse Ox 07/31/23 07:52 36.6 C 61 18 159/74 H 96 07/31/23 07:21 64 20 148/66 H 91 07/31/23 04:03 65 18 95 07/31/23 03:43 37.7 C H 65 20 167/73 H 96 07/31/23 00:28 36.7 C 71 18 166/73 H 97 07/30/23 21:58 66 07/30/23 20:15 07/30/23 19:22 36.9 C 60 18 179/73 H 97 07/30/23 15:37 66 07/30/23 15:23 37.6 C H 69 16 133/79 96 07/30/23 11:44 36.8 C 60 18 145/64 H 94 O2 Del Method O2 Flow Rate FiO2 07/31/23 07:52 Trach Collar 07/31/23 07:21 Room Air 07/31/23 04:03 Trach Collar 9 35 07/31/23 03:43 Trach Collar 10.0 07/31/23 00:28 Trach Collar 6.0 07/30/23 21:58 07/30/23 20:15 Trach Collar 6 07/30/23 19:22 Trach Collar 6.0 07/30/23 15:37 07/30/23 15:23 Trach Collar 8 07/30/23 11:44 Trach Collar 8 Transfer of Care Handoff Completed per policy Notes Mental Status: alert / awake / arousable and participated in evaluation Patient Amnestic to Procedure: Yes Nausea / Vomiting: adequately controlled Pain: adequately controlled Airway Patency, RR, SpO2: stable & adequate BP & HR: stable & adequate Hydration State: stable & adequate Anesthetic Complications: no major complications apparent and Pt Satisfied with anesthetic care
--- NOTE | 2023-07-31 08:27 | Post Operative Brief Note ---
Cardiology Brief Post Op Date of Surgery July 31, 2023 Pre & Post Diagnosis Operation Date: 07/31/23 07:30 Procedure Preprocedure diagnosis: Bacteremia Post procedure diagnosis: No vegetation visualized Transesophageal echocardiogram procedure: After informed consent was obtained a timeout was performed the patient was sedated with the assistance of the anesthesia service. The valves were well-visualized with no vegetation. The right atrial and right ventricular pacemaker leads were adequately visualized with no evidence of vegetation. Moderate aortic valve stenosis is present. Journal Box Inspector True Prasad DO Rubber Press Tender OTTO Mock Estimated Blood Loss 0 Findings Consistent with Post-Op Diagnosis Anesthesia Type MAC Complications none immediately apparent
[2023-07-31] MEDS: VANCOMYCIN HCL 1,250 MG in SODIUM CHLORIDE 0.9% 250 ML IV SCH (09:07)
[2023-07-31] MEDS: BENZOCAINE/TETRACAIN/BUTAM 50 APPLN/5 GM CAN EXT ONE (09:08)
--- NOTE | 2023-07-31 09:16 | Cardiology Progress Note ---
Date of Service July 31, 2023 Assessment & Plan (1) Bacteremia due to Enterococcus: (2) Squamous cell carcinoma of thoracic region: Plan -JESSEE negative for/vegetation or regurgitation on pacemaker leads. Moderate aortic stenosis noted which is a chronic finding for him. -Patient tolerated the procedure per respiratory standpoint and hemodynamic standpoint. -Pathology results from fine-needle aspiration of the right anterior chest mass reveal squamous cell carcinoma. -Eliquis resumed given h/o paroxysmal atrial fibrillation -Biotics per hospitalist/infectious disease service Admission and Anticipated Discharge Date Admission Date: July 25, 2023 Subjective Patient seen in cardiology follow-up prior to, during, post transesophageal echocardiogram. Patient without subjective complaint. Tmax 37.7. Most recent temperature improved to 36.8 C. Physical Exam Constitutional: + ill appearing; no acute distress Eyes: PERRL, conjunctivae normal, anicteric sclerae Neck: Stigmata of previous surgery noted Respiratory: Auscultation: no rales and no rhonchi Cardiovascular: Rate/Rhythm: regular rate and regular rhythm Heart Sounds: + murmur (1/6 SM ) Extremities: no edema Chest (Breasts): Additional Comments: Prominent anterior chest mass Gastrointestinal (Abdomen): normal bowel sounds, soft, nontender, no hepatosplenomegaly Neurologic: PERRL, EOMI, accommodation nl, no face palsy, no dysarthria Results & Data Vital Signs (Past 12 Hours) Vital Signs Temp Pulse Pulse Resp BP BP Pulse Ox 07/31/23 09:00 36.8 C 62 18 142/57 H 90 07/31/23 08:30 60 14 96/43 L 93 07/31/23 08:10 62 14 100/36 L 100 07/31/23 07:52 36.6 C 61 18 159/74 H 96 07/31/23 07:21 64 20 148/66 H 91 07/31/23 04:03 65 18 95 07/31/23 03:43 37.7 C H 65 20 167/73 H 96 07/31/23 00:28 36.7 C 71 18 166/73 H 97 07/30/23 21:58 66 O2 Del Method O2 Flow Rate FiO2 07/31/23 09:00 Room Air 07/31/23 08:30 Room Air 07/31/23 08:10 Room Air 07/31/23 07:52 Trach Collar 07/31/23 07:21 Room Air 07/31/23 04:03 Trach Collar 9 35 07/31/23 03:43 Trach Collar 10.0 07/31/23 00:28 Trach Collar 6.0 07/30/23 21:58 Laboratory Results CBC 07/31/23 Range/Units 05:12 WBC 8.72 (4.8-10.8) K/ul RBC 3.91 L (4.70-6.10) M/uL Hgb 11.6 L (14.0-18.0) g/dl Hct 35.6 L (42.0-52.0) % Plt Count 300 (130-400) K/uL Comprehensive Metabolic Panel 07/31/23 Range/Units 05:12 Sodium 132 L (136-145) mmol/L Potassium 4.2 (3.5-5.1) mmol/L Chloride 98 (98-107) mmol/L Carbon Dioxide 26 (21-32) mmol/L BUN 11 (6-23) mg/dl Creatinine 0.85 (0.6-1.4) mg/dl Glucose 120 H (70-99(Fasting)) mg/dl Calcium 8.1 L (8.6-10.3) mg/dl Intake and Output 07/30/23 07/31/23 07/31/23 22:59 06:59 14:59 Intake Total 170 / 925 100 / 925 Output Total 1 / 2 Balance 169 / 923 100 / 923 Intake: IV 100 / 635 Magnesium Sulfate / D5w 1 gm In 100 / 100 100 ml @ 50 mls/hr IV ONE ONE Rx#:[id number] Oral 170 / 290 Output: # Bowel Movements 1 / 2 Other: Other Intake Source SIPS # Unmeasured Voids 1 1 Weight 98.4 kg 98.4 kg Weight Measurement Method Built in [facility] Patient Weight 08/01/23 06:59 Weight 98.4 kg
--- NOTE | 2023-07-31 09:43 | Communication Note ---
Date of Service: July 31, 2023 Late entry Patient noted to be short of breath and hypoxemic overnight. O2 sats 86 as per RN Junky cough symptoms with expiratory wheezes requiring neb treatment as per RN. Emesis following stomach upset. 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
[2023-07-31] MEDS: LEVALBUTEROL 1.25 MG/3 ML NEB NEB SCH (10:02)
--- NOTE | 2023-07-31 10:03 | Pharmacy Report ---
Pharmacy PK ABX Note - Date of Service July 31, 2023 - Assessment and Plan - Assessment and Plan Assessment 4: Day #7 of Vancomycin therapy. Renal function stable. 3: Continues on vancomycin for Enterococcus faecium bacteremia. Day # 5 vancomycin. Repeat blood cultures NGTD. Renal function at baseline. 83 year old M presenting to ED a day prior to admission with flulike symptoms with muscle aches, fever and chills for 7 to 10 days. Blood culture from 07/23 growing probable enterococcus with BCID2 indicating enterococcus faecium, not VRE gene detected. Per provider discussion with ID, start vancomycin and unasyn at this time. * 07/23 blood cultures not finalized yet but still just 1 bottle with E. faecium (not VRE). 07/24 blood cultures with no growth to date. Another set of blood cultures drawn this AM. Plan Vancomycin * Current regimen: 1750 mg IV every 24 hours * Random level this AM- 9.1 mcg/mL at 05:12. Predicted to achieve steady state AUC 398 mg/L.hr which is less than goal of 400-600 mg/L.hr * Dosing increased to 1250mg IV q12h - predicted to achieve ss AUC 543 mg/L.hr * Trough level ordered for tomorrow evening after 3 doses of new dosing regimen Pharmacy will continue to follow and will adjust dose/frequency as necessary. Thank you. AUC/AURORA is the preferred PK/PD target and is associated with decreased risk of nephrotoxicity compared to traditional trough targets.
[2023-07-31] MEDS ORDERED: LIDOCAINE 2% 2 ML VIAL/AMP(20MG/ML) INFIL ONE (10:56)
[2023-07-31] MEDS ORDERED: ePHEDrine sulfate 50 MG/5 ML SYR ONE (10:56)
[2023-07-31] MEDS ORDERED: PHENYLEPHRINE 100MCG/ML 10ML SYR IV ONE (10:56)
[2023-07-31] MEDS ORDERED: PROPOFOL IV EMULSION 10 MG/ML 20 ML VIAL IV ONE (10:56)
--- NOTE | 2023-07-31 16:07 | Hospitalist Progress Note ---
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 He is being managed for the following: Sepsis: Bacteremia due to Enterococcus: Patient presented to the ED a day prior to admission with flulike symptoms with muscle aches, fever and chills for 7 to 10 days. 07/24/2023 blood culture with Enterococcus faecium growth, 07/26 blood culture no growth so far, / blood cultures pending CT abdomen and pelvis showed mild low bladder wall thickening. No other acute findings. Urine analysis was negative for UTI. Echocardiogram shows EF of 60 to 65%; study technically difficult. Valve structures not well-visualized. No clear source of infection so far. blood culture from /291 out of 4 positive for Enterococcus faecium. 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 ID has evaluated, patient on vancomycin since 07/24, dose being monitored by pharmacy. Re d/w ID 07/29 - recs was DEREK. DEREK 07/30 neg for vegetations in the valve and pacer leads. Re d/w ID again on 07/30 - c/w vancomycin only for total of 4 weeks. occasional febrile episodes likely from underlying malignancy. Patient continues to feel better, WBC has been trending down, has been running fever on and off. Patient underwent biopsy 07/28. See below. Recommend patient f/u with ID in about 2 weeks from discharge. Will get PICC line, x-ray after the PICC line, prescription provided to CM, possible DC tomorrow. Mass in the chest: CT chest/soft tissue neck on 07/24/2023 with 6 cm right infraclavicular necrotic mass concerning for metastatic disease. Also has cervical lymphadenopathy measuring 15 x 8 mm. Underwent biopsy 07/28. Metastatic squamous cell carcinoma. Oncology following. f/u onco on dc. PET scan after discharge. History of laryngectomy: Tracheostomy in place: Laryngeal cancer: History of laryngeal cancer; vocal cord SCC status post radiation, total laryngectomy Patient reports follow-up at [facility] 2 days prior to admission; Oncology on board; underwent biopsy of the mass seen on CT of the soft tissue neck, follow. f/u oncology on dc. Other chronic medical conditions: Continue with/resume home meds as and when able COPDcontinue home inhalers. Recently started on prednisone, currently on 5 mg once a day, being tapered off. Hypothyroidism: Continue levothyroxine CAD, CABG: Continue Plavix and Lipitor. Patient started on Eliquis April 2020 after CEA with CVA. SSS: Status post pacemaker. Echocardiogram as above. Hypertension: Continue with home amlodipine and metoprolol. Dyslipidemia: Continue with Lipitor Anxiety: Continue with Paxil DVT prophylaxis: Eliquis on hold for possible derek delmer. Full code Please note the above document was generated using voice recognition software. It may contain grammatical, syntax or spelling errors. Any formal questions or concerns about the content, text or information contained within the body of this dictation should be directly addressed to the provider for clarification Admission and Anticipated Discharge Date Admission Date: July 25, 2023 Subjective Patient seen and examined at bedside. He reports feeling better. still running low grade fever, WBC has been trending down. Occasional fever could be from his underlying malignancy. Vitals are stable and saturating well on room air. Using humidified oxygen for humidification purpose only. Patient reports eating okay and moving bowels okay, denies any complaints, reports feeling better. Overnight there was concern of aspiration, CXR with no acute finding, patient continues to feel better, patient denies cough. Patient denies trouble swallowing. Will discontinue ertapenem. Discussed with ID. Patient maintaining saturation well on room air per RN. Physical Exam Physical Exam: Constitutional: Awake, alert. Able to voice; writes for communication Neck: Tracheostomy with TEP present; no overlying swelling/redness over tracheostomy site/flap. Respiratory: normal respiratory effort, lungs clear to auscultation, no wheeze, rales, rhonchi. Normal insp/exp effort, no accessory muscle use Cardiovascular: S1-S2, no murmur Chest: normal inspection of chest Abdomen: Soft, nontender Musculoskeletal: Biopsy site bandaged on left arm. Skin: no rashes, warm and dry normal turgor Neurologic: PERRL, EOMI, accommodation nl, no face palsy, no dysarthria CN's II- XI intact bilaterally and moves all extremities Psychiatric: A+Ox3, euthymic affect Results & Data Results & Data Vital Signs (Past 12 Hours) Vital Signs Temp Pulse Pulse Resp BP BP Pulse Ox 07/31/23 15:50 62 07/31/23 13:18 36.7 C 60 18 134/65 92 07/31/23 10:27 36.6 C 63 16 122/66 98 07/31/23 09:45 36.7 C 60 18 134/65 97 07/31/23 09:31 36.6 C 64 18 147/61 H 96 07/31/23 09:15 63 16 130/73 98 07/31/23 09:02 07/31/23 09:00 36.8 C 62 18 142/57 H 90 07/31/23 08:30 60 14 96/43 L 93 07/31/23 08:10 62 14 100/36 L 100 07/31/23 07:52 36.6 C 61 18 159/74 H 96 07/31/23 07:21 64 20 148/66 H 91 07/31/23 04:03 65 18 95 O2 Del Method O2 Flow Rate FiO2 07/31/23 15:50 07/31/23 13:18 Room Air 07/31/23 10:27 Trach Collar 50 07/31/23 09:45 Nasal Cannula 07/31/23 09:31 Trach Collar 07/31/23 09:15 Trach Collar 50 07/31/23 09:02 Trach Collar 07/31/23 09:00 Room Air 07/31/23 08:30 Room Air 07/31/23 08:10 Room Air 07/31/23 07:52 Trach Collar 07/31/23 07:21 Room Air 07/31/23 04:03 Trach Collar 9 35
[2023-08-01 07:46] LABS: BUN Creatinine Ratio 16.1 (10-20); Creatinine Clr Calc Pharmacy 70.7 ml/min; Est GFR (African American) 87.1 ml/min; Est GFR (Non-African American) 75.1 ml/min; Potassium 4.5 mmol/L (3.5-5.1)
[2023-08-01 07:53] LABS: Hematocrit (blood only) 33.4 % (42.0-52.0); Hemoglobin 11.1 g/dl (14.0-18.0); Mean Corpuscular Hemoglobin 30.2 pg (25.0-34.0); Mean Corpuscular Hgb Conc 33.2 g/dL (32.0-36.0); Mean Platelet Volume 8.9 fL (9.4-12.4); Platelet Count 342 K/uL (130-400); RDW Coefficient of Variation 15.3 % (11.5-14.5); RDW Standard Deviation 51.5 fL (36.4-46.3); Red Blood Count 3.67 M/uL (4.70-6.10); White Blood Count 12.12 K/ul (4.8-10.8)
[2023-08-01] MEDS: predniSONE 5 MG TAB PO SCH (07:59)
[2023-08-01] MEDS: FUROSEMIDE 40 MG/4 ML VIAL IV ONE (11:47)
[2023-08-01] MEDS: ACETYLCYSTEINE 10% INHAL SOLN 4 ML **DISPENSED BY RESP. INH PRN (15:02)
--- NOTE | 2023-08-01 16:47 | Hospitalist Progress Note ---
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 He is being managed for the following: Sepsis: Bacteremia due to Enterococcus: Patient presented to the ED a day prior to admission with flulike symptoms with muscle aches, fever and chills for 7 to 10 days. 07/24/2023 blood culture with Enterococcus faecium growth, 07/26 blood culture no growth so far, / blood cultures pending CT abdomen and pelvis showed mild low bladder wall thickening. No other acute findings. Urine analysis was negative for UTI. Echocardiogram shows EF of 60 to 65%; study technically difficult. Valve structures not well-visualized. No clear source of infection so far. blood culture from /291 out of 4 positive for Enterococcus faecium. 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 ID has evaluated, patient on vancomycin since 07/24, dose being monitored by pharmacy. Re d/w ID 07/29 - recs was DEREK. DEREK 07/30 neg for vegetations in the valve and pacer leads. Re d/w ID again on 07/30 - c/w vancomycin only for total of 4 weeks. occasional febrile episodes likely from underlying malignancy. Patient continues to feel better, WBC has been trending down, has been running fever on and off. Patient underwent biopsy 07/28. See below. Recommend patient f/u with ID in about 2 weeks from discharge. Will get PICC line, x-ray after the PICC line, prescription provided to CM, possible DC tomorrow. Mass in the chest: CT chest/soft tissue neck on 07/24/2023 with 6 cm right infraclavicular necrotic mass concerning for metastatic disease. Also has cervical lymphadenopathy measuring 15 x 8 mm. Underwent biopsy 07/28. Metastatic squamous cell carcinoma. Oncology following. f/u onco on dc. PET scan after discharge. History of laryngectomy: Tracheostomy in place: Laryngeal cancer: History of laryngeal cancer; vocal cord SCC status post radiation, total laryngectomy Patient reports follow-up at [facility] 2 days prior to admission; Oncology on board; underwent biopsy of the mass seen on CT of the soft tissue neck, follow. f/u oncology on dc. Other chronic medical conditions: Continue with/resume home meds as and when able COPDcontinue home inhalers. Recently started on prednisone, currently on 5 mg once a day, being tapered off. Hypothyroidism: Continue levothyroxine CAD, CABG: Continue Plavix and Lipitor. Patient started on Eliquis April 2020 after CEA with CVA. SSS: Status post pacemaker. Echocardiogram as above. Hypertension: Continue with home amlodipine and metoprolol. Dyslipidemia: Continue with Lipitor Anxiety: Continue with Paxil DVT prophylaxis: Eliquis on hold for possible derek delmer. Full code Please note the above document was generated using voice recognition software. It may contain grammatical, syntax or spelling errors. Any formal questions or concerns about the content, text or information contained within the body of this dictation should be directly addressed to the provider for clarification Admission and Anticipated Discharge Date Admission Date: July 25, 2023 Subjective 08/01/2023 The patient was seen and examined in telemetry unit He has been stable but gets short of breath with more secretions when he lies down Denies any chest pain and palpitation He wants to go home but will need a PICC line before he can do that Review of Systems Review of Systems: All systems reviewed and are unremarkable except as noted below Physical Exam Physical Exam: Sitting on a chair without any acute distress Constitutional: well developed, well nourished and + ill appearing Eyes: PERRL, conjunctivae normal, anicteric sclerae ENMT: external ear and nose normal, oropharynx normal Neck: trachea midline, no thyromegaly Status post tracheotomy tube Respiratory: + respiratory distress (Minimal distress at rest) Auscultation: + diminished lung sounds and + crackles (Bilateral crackles with occasional wheezing) Cardiovascular: Rate/Rhythm: regular rate and regular rhythm; not tachycardic Heart Sounds: normal S1 and normal S2; no murmur Extremities: + edema (Trace edema bilaterally) Chest (Breasts): Additional Comments: Right upper chest wall swelling Musculoskeletal: No acute arthritis involving any of the joint Neurologic: normal touch/pain/proprioception and moves all extremities; no focal motor deficits Psychiatric: A+Ox3, euthymic affect Lymphatic: no cervical or axillary lymphadenopathy Results & Data Results & Data Vital Signs (Past 12 Hours) Vital Signs Temp Pulse Resp BP Pulse Ox O2 Del Method O2 Del Method 08/01/23 15:31 36.3 C L 60 18 116/66 96 Room Air 08/01/23 15:06 18 96 Room Air 08/01/23 15:00 Room Air 08/01/23 11:35 36.6 C 62 18 121/66 95 Room Air 08/01/23 11:28 61 18 94 Room Air 08/01/23 08:03 Room Air 08/01/23 07:55 37.0 C 60 18 129/72 99 Room Air 08/01/23 07:26 78 20 89 L Room Air 08/01/23 04:54 68 24 92 Trach Collar O2 Flow Rate FiO2 08/01/23 15:31 08/01/23 15:06 08/01/23 15:00 08/01/23 11:35 08/01/23 11:28 08/01/23 08:03 08/01/23 07:55 08/01/23 07:26 08/01/23 04:54 6 28
[2023-08-01] MEDS ORDERED: VANCOMYCIN LEVEL SCH (18:00)
[2023-08-02 05:28] LABS: Basophils # (auto) 0.04 K/uL (0.00-0.20); Basophils % (auto) 0.3 %; Eosinophils # (auto) 0.06 K/uL (0.00-0.50); Eosinophils % (auto) 0.4 %; Hematocrit (blood only) 35.1 % (42.0-52.0); Hemoglobin 11.4 g/dl (14.0-18.0); Immature Granulocytes # (auto) 0.08 K/uL (0.01-0.20); Immature Granulocytes % (auto) 0.6 %; Lymphocytes # (auto) 1.09 K/uL (1.20-3.40); Lymphocytes % (auto) 7.7 %; Mean Corpuscular Hemoglobin 29.9 pg (25.0-34.0); Mean Corpuscular Hgb Conc 32.5 g/dL (32.0-36.0); Mean Corpuscular Volume 92.1 fL (80.0-100.0); Mean Platelet Volume 8.7 fL (9.4-12.4); Monocytes # (auto) 0.76 K/uL (0.11-0.59); Monocytes % (auto) 5.3 %; Neutrophils # (auto) 12.19 K/uL (1.40-6.50); Neutrophils % (auto) 85.7 %; Platelet Count 341 K/uL (130-400); RDW Coefficient of Variation 15.1 % (11.5-14.5); RDW Standard Deviation 51.1 fL (36.4-46.3); Red Blood Count 3.81 M/uL (4.70-6.10); White Blood Count 14.22 K/ul (4.8-10.8)
[2023-08-02 05:48] LABS: BUN Creatinine Ratio 15.6 (10-20); Est GFR (African American) 90.6 ml/min; Est GFR (Non-African American) 78.2 ml/min; Magnesium 1.7 mg/dl (1.7-2.4); Potassium 4.3 mmol/L (3.5-5.1)
--- NOTE | 2023-08-02 07:20 | Pharmacy Report ---
Pharmacy PK ABX Note - Date of Service August 02, 2023 - Assessment and Plan - Assessment and Plan Assessment 08/01: * Day #9 of Vanc. ID recommending 4 weeks of therapy. Renal fxn stable. White count slowly increasing (8.7-->12.1-->14.2). Low grade fevers continue. * Repeat cultures all negative. 07/30: Day #7 of Vancomycin therapy. Renal function stable. 07/28: Continues on vancomycin for Enterococcus faecium bacteremia. Day # 5 vancomycin. Repeat blood cultures NGTD. Renal function at baseline. 83 year old M presenting to ED a day prior to admission with flulike symptoms with muscle aches, fever and chills for 7 to 10 days. Blood culture from 07/23 growing probable enterococcus with BCID2 indicating enterococcus faecium, not VRE gene detected. Per provider discussion with ID, start vancomycin and unasyn at this time. * 07/23 blood cultures not finalized yet but still just 1 bottle with E. faecium (not VRE). 07/24 blood cultures with no growth to date. Another set of blood cultures drawn this AM. Plan Vancomycin * Current regimen: 1250 mg IV every 12 hours * Random level obtained 08/02/23 resulted as 18 mcg/mL. This is predicted to achieve target AUC/AURORA of 400-600 mg/L.hr * Predicted AUC at steady state: 564 mg/L.hr * Continue 1250 mg IV every 12 hours * Repeat random level ordered for: 08/04/23 Pharmacy will continue to follow and will adjust dose/frequency as necessary. Thank you. AUC/AURORA is the preferred PK/PD target and is associated with decreased risk of nephrotoxicity compared to traditional trough targets.
[2023-08-02] MEDS: FUROSEMIDE 40 MG/4 ML VIAL IV ONE (09:23)
[2023-08-02] MEDS: PROMETHAZINE HCL 6.25 MG in SODIUM CHLORIDE 0.9% 50 ML IV PRN (09:23)
[2023-08-02] MEDS: hydrALAZINE HCL 20 MG/ML VIAL IV STA (09:32)
[2023-08-02] MEDS: METOPROLOL SUCC 25MG EXT REL TAB PO STA (09:32)
--- NOTE | 2023-08-02 15:07 | Hospitalist Progress Note ---
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 [place], recurrence of cancer requiring tracheal stoma, CAD status post CABG, SSS status post PPM, PVD status post surgery, HTN HLD, CVA, hypothyroidism, CAD, chronic anemia, status post carotid endarterectomy, SCC on multiple areas, recent biopsy in left arm 07/15/2023 presented to the ED with flulike symptoms with muscle aches, fever and chills. He is being managed for the following: Sepsis: Bacteremia due to Enterococcus: Patient presented to the ED a day prior to admission with flulike symptoms with muscle aches, fever and chills for 7 to 10 days. 07/24/2023 1 out of 4 blood cultures with Enterococcus faecium growth, repeat 3 sets of blood cultures on 07/25/2023, 07/27/2023 and 07/29/[address] abdomen and pelvis showed mild low bladder wall thickening. No other acute findings. Urine analysis was negative for UTI. Transthoracic and transesophageal echocardiogram shows EF of 60 to 65%; study technically difficult. Valve structures not well-visualized. No evidence of infective endocarditis Has been on intravenous vancomycin Remains free from any more infective symptoms ID has evaluated, patient on vancomycin since 07/24, dose being monitored by pharmacy. Re d/w ID 07/29 - recs was DEREK. DEREK 07/30 neg for vegetations in the valve and pacer leads. Re d/w ID again on 07/30 - c/w vancomycin only for total of 4 weeks. occasional febrile episodes likely from underlying malignancy. Patient continues to feel better, WBC has been trending down, has been running fever on and off. Patient underwent biopsy of right chest wall under ultrasound guided core biopsy which showed metastatic squamous cell carcinoma Recommend patient f/u with ID in about 2 weeks from discharge. Failure with PICC line on Thursday and will try on Thursday prior to discharge Increasing shortness of breath Especially lying down with more secretions and in inability to spit it out Was given nebulized Mucomyst Received intravenous Lasix of 40 mg on 08/01/2023 and will be giving another dose on 08/02/2023 He has been feeling better Likely discharge tomorrow following PICC line placement Mass in the chest: CT chest/soft tissue neck on 07/24/2023 with 6 cm right infraclavicular necrotic mass concerning for metastatic disease. Also has cervical lymphadenopathy measuring 15 x 8 mm. Underwent biopsy 07/28. Metastatic squamous cell carcinoma. Oncology following. f/u onco on dc. PET scan after discharge. Laryngeal cancer History of laryngectomy: Tracheostomy in place: History of laryngeal cancer; vocal cord SCC status post radiation, total laryngectomy Patient reports follow-up at [facility] 2 days prior to admission; Oncology on board; underwent biopsy of the mass seen on CT of the soft tissue neck, follow. f/u oncology on dc. Other chronic medical conditions: Continue with/resume home meds as and when able COPDcontinue home inhalers. Recently started on prednisone, currently on 5 mg once a day, being tapered off. Hypothyroidism: Continue levothyroxine CAD, CABG: Continue Plavix and Lipitor. Patient started on Eliquis April 2020 after CEA with CVA. SSS: Status post pacemaker. Echocardiogram as above. Hypertension: Continue with home amlodipine and metoprolol. Dyslipidemia: Continue with Lipitor Anxiety: Continue with Paxil DVT prophylaxis: Eliquis on hold for possible derek delmer. Full code Please note the above document was generated using voice recognition software. It may contain grammatical, syntax or spelling errors. Any formal questions or concerns about the content, text or information contained within the body of this dictation should be directly addressed to the provider for clarification Admission and Anticipated Discharge Date Admission Date: July 25, 2023 Subjective 08/01/2023 The patient was seen and examined in telemetry unit He has been stable but gets short of breath with more secretions when he lies down Denies any chest pain and palpitation He wants to go home but will need a PICC line before he can do that 08/02/2023 The patient was seen and examined in telemetry unit He has been feeling much better today No more desaturation and cough is diminished and wheezing is diminished to Denies any chest pain, palpitation or shortness of breath at rest Review of Systems Review of Systems: All systems reviewed and are unremarkable except as noted below Physical Exam Physical Exam: Sitting on a chair without any acute distress Constitutional: well developed, well nourished and + ill appearing Eyes: PERRL, conjunctivae normal, anicteric sclerae ENMT: external ear and nose normal, oropharynx normal Neck: trachea midline, no thyromegaly Respiratory: + respiratory distress (Minimal distress at rest) Auscultation: + diminished lung sounds and + crackles (Bilateral crackles with occasional wheezing) Cardiovascular: Rate/Rhythm: regular rate and regular rhythm; not tachycardic Heart Sounds: normal S1 and normal S2; no murmur Extremities: + edema (Trace edema bilaterally) Gastrointestinal (Abdomen): Inspection/Auscultation: normal bowel sounds; a bdomen not distended Percussion/Palpation: abdomen soft; abdomen nontender Musculoskeletal: No acute arthritis involving of the joint Neurologic: normal touch/pain/proprioception and moves all extremities; no focal motor deficits Psychiatric: A+Ox3, euthymic affect Lymphatic: no cervical or axillary lymphadenopathy Results & Data Results & Data Vital Signs (Past 12 Hours) Vital Signs Temp Pulse Resp BP BP Pulse Ox O2 Del Method 08/02/23 11:30 37.6 C H 62 18 113/69 93 Room Air 08/02/23 11:15 91 H 16 87 L Room Air 08/02/23 09:17 37.1 C 08/02/23 09:16 78 129/72 98 Trach Collar 08/02/23 09:11 84 18 115/64 94 Trach Collar 08/02/23 08:48 Trach Collar 08/02/23 07:29 37.6 C H 75 18 174/133 H 94 Room Air 08/02/23 07:23 77 18 91 Trach Collar 08/02/23 03:30 36.9 C 68 20 139/70 94 Trach Collar FiO2 08/02/23 11:30 08/02/23 11:15 08/02/23 09:17 08/02/23 09:16 28 08/02/23 09:11 28 08/02/23 08:48 28 08/02/23 07:29 08/02/23 07:23 21 08/02/23 03:30 Laboratory Results Short CBC 08/02/23 Range/Units 05:05 WBC 14.22 H (4.8-10.8) K/ul Hgb 11.4 L (14.0-18.0) g/dl Hct 35.1 L (42.0-52.0) % Plt Count 341 (130-400) K/uL BMP 08/02/23 05:05 Sodium 135 L Potassium 4.3 Chloride 98 Carbon Dioxide 30 BUN 14 Creatinine 0.90 Glucose 88 Calcium 8.0 L Medications Administered Current Inpatient Medications Acetaminophen (Acetaminophen Susp 160 Mg/5 Ml Btl) 650 mg PO Q4H PRN PRN Reason: Pain or Fever Stop: 08/29/23 08:12 Last Admin: 08/01/23 19:25 Dose: 650 mg Acetylcysteine (Acetylcysteine 10% Inhal Soln 4 Ml Dispensed By Resp.) 10 ml INH Q6H PRN PRN Reason: Shortness Of Breath Or Wheezing Stop: 08/31/23 11:44 Last Admin: 08/01/23 15:02 Dose: 10 ml Albuterol (Albut/Ipratrop 3mg/0.5mg Neb 3 Ml Vial) 3 ml INH QID PRN; Protocol PRN Reason: Shortness Of Breath Or Wheezing Stop: 08/24/23 13:46 Last Admin: 08/01/23 04:53 Dose: 3 ml Amlodipine Besylate (Amlodipine Besylate 5 Mg Tab) 5 mg PO HS HUNG Stop: 08/25/23 20:59 Last Admin: 08/01/23 20:55 Dose: 5 mg Apixaban (Apixaban 5 Mg Tablet) 5 mg PO BID [facility] Stop: 08/29/23 08:59 Last Admin: 08/02/23 08:49 Dose: 5 mg Atorvastatin Calcium (Atorvastatin 40 Mg Tab) 40 mg PO HS [facility]UNG Stop: 08/24/23 20:59 Last Admin: 08/01/23 20:55 Dose: 40 mg Budesonide (Budesonide 0.5 Mg/2 Ml Vial (Pulmicort)) 0.5 mg INH 0700 [facility]G Stop: 08/25/23 06:59 Last Admin: 08/02/23 07:23 Dose: 0.5 mg Clopidogrel Bisulfate (Clopidogrel Bisulfate 75 Mg Tab) 75 mg PO QAM [facility] Stop: 08/25/23 08:59 Last Admin: 08/02/23 08:48 Dose: 75 mg Guaifenesin (Guaifenesin Sugar Free 200 Mg/10 Ml Udc) 400 mg PO BID [facility] Stop: 08/26/23 20:59 Last Admin: 08/02/23 08:49 Dose: Not Given Promethazine HCl 6.25 mg/ (Sodium Chloride) 50.25 mls @ 201 mls/hr IV Q6H PRN PRN Reason: Nausea And Vomiting Stop: 08/29/23 23:23 Last Infusion: 08/02/23 09:50 Dose: Infused Vancomycin HCl 1,250 mg/ (Sodium Chloride) 275 mls @ 200 mls/hr IV Q12H [facility] Stop: 08/09/23 12:00 Last Infusion: 08/02/23 11:22 Dose: Infused Lansoprazole (Lansoprazole 30 Mg Soltab) 30 mg PO QAM [facility] Stop: 09/02/23 08:59 Levalbuterol HCl (Levalbuterol 1.25 Mg/3 Ml Neb) 1.25 mg NEB QIDR [facility] Stop: 08/30/23 06:59 Last Admin: 08/02/23 11:15 Dose: 1.25 mg Levothyroxine Sodium (Levothyroxine Sodium 125 Mcg Tablet) 125 mcg PO DAILYBB [facility] Stop: 08/25/23 06:29 Last Admin: 08/02/23 07:07 Dose: 125 mcg Magnesium Hydroxide (Magnesium Hydroxide Susp 30 Ml Udc) 30 ml PO Q12H PRN PRN Reason: Constipation Stop: 08/24/23 13:46 Metoprolol Succinate (Metoprolol Succ 25mg Ext Rel Tab) 25 mg PO DAILY [facility] Stop: 09/02/23 08:59 Miscellaneous Information (Vancomycin Consult Active) 1 each N/A UD PRN PRN Reason: Consult Stop: 08/24/23 13:46 Nitroglycerin (Nitroglycerin Sl 0.4 Mg/Tab Tab) 0.4 mg SL Q5M PRN PRN Reason: Chest Pain Stop: 08/24/23 13:46 Paroxetine HCl (Paroxetine Hcl 20 Mg Tab) 20 mg PO HS [facility] Stop: 08/24/23 20:59 Last Admin: 08/01/23 20:56 Dose: Not Given Polyethylene Glycol (Polyethylene (Miralax) 17 Gm Pack) 17 gm PO DAILY PRN PRN Reason: Constipation Stop: 08/24/23 13:46 Prednisone (Prednisone 5 Mg Tab) 5 mg PO DAILY [facility] Stop: 08/05/23 08:59 Last Admin: 08/02/23 08:49 Dose: 5 mg
[2023-08-03 07:10] LABS: Basophils # (auto) 0.05 K/uL (0.00-0.20); Basophils % (auto) 0.5 %; Eosinophils # (auto) 0.07 K/uL (0.00-0.50); Eosinophils % (auto) 0.7 %; Hematocrit (blood only) 35.3 % (42.0-52.0); Hemoglobin 11.5 g/dl (14.0-18.0); Immature Granulocytes # (auto) 0.08 K/uL (0.01-0.20); Immature Granulocytes % (auto) 0.8 %; Lymphocytes # (auto) 1.53 K/uL (1.20-3.40); Lymphocytes % (auto) 14.5 %; Mean Corpuscular Hemoglobin 29.6 pg (25.0-34.0); Mean Corpuscular Hgb Conc 32.6 g/dL (32.0-36.0); Mean Platelet Volume 8.9 fL (9.4-12.4); Monocytes # (auto) 0.58 K/uL (0.11-0.59); Monocytes % (auto) 5.5 %; Neutrophils # (auto) 8.24 K/uL (1.40-6.50); Platelet Count 367 K/uL (130-400); RDW Coefficient of Variation 15.1 % (11.5-14.5); RDW Standard Deviation 50.3 fL (36.4-46.3); Red Blood Count 3.88 M/uL (4.70-6.10); White Blood Count 10.55 K/ul (4.8-10.8)
[2023-08-03 07:35] LABS: BUN Creatinine Ratio 16.7 (10-20); Calcium 8.5 mg/dl (8.6-10.3); Creatinine Clr Calc Pharmacy 78.2 ml/min; Est GFR (African American) 93.2 ml/min; Est GFR (Non-African American) 80.4 ml/min; Phosphorus 3.5 mg/dl (2.5-4.9); Potassium 3.6 mmol/L (3.5-5.1)
[2023-08-03] MEDS: METOPROLOL SUCC 25MG EXT REL TAB PO SCH (08:18)
[2023-08-03] MEDS: LANSOPRAZOLE 30 MG SOLTAB PO SCH (08:19)
[2023-08-03] MEDS ORDERED: METOPROLOL SUCC 50MG EXT REL TAB PO SCH (09:00)
[2023-08-03] MEDS: PANTOprazole 40 MG TAB PO SCH (11:48)
--- NOTE | 2023-08-03 14:51 | Hospitalist Progress Note ---
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 [place], recurrence of cancer requiring tracheal stoma, CAD status post CABG, SSS status post PPM, PVD status post surgery, HTN HLD, CVA, hypothyroidism, CAD, chronic anemia, status post carotid endarterectomy, SCC on multiple areas, recent biopsy in left arm 07/15/2023 presented to the ED with flulike symptoms with muscle aches, fever and chills. He is being managed for the following: Sepsis: Bacteremia due to Enterococcus: Patient presented to the ED a day prior to admission with flulike symptoms with muscle aches, fever and chills for 7 to 10 days. 07/24/2023 1 out of 4 blood cultures with Enterococcus faecium growth, repeat 3 sets of blood cultures on 07/25/2023, 07/27/2023 and 07/29/[address] abdomen and pelvis showed mild low bladder wall thickening. No other acute findings. Urine analysis was negative for UTI. Transthoracic and transesophageal echocardiogram shows EF of 60 to 65%; study technically difficult. Valve structures not well-visualized. No evidence of infective endocarditis Has been on intravenous vancomycin Remains free from any more infective symptoms ID has evaluated, patient on vancomycin since 07/24, dose being monitored by pharmacy. Re d/w ID 07/29 - recs was DEREK. DEREK 07/30 neg for vegetations in the valve and pacer leads. Re d/w ID again on 07/30 - c/w vancomycin only for total of 4 weeks. occasional febrile episodes likely from underlying malignancy. Patient continues to feel better, WBC has been trending down, has been running fever on and off. Patient underwent biopsy of right chest wall under ultrasound guided core biopsy which showed metastatic squamous cell carcinoma Recommend patient f/u with ID in about 2 weeks from discharge. Failure with PICC line on Thursday and will try on Thursday prior to discharge Repeated trial to put the PICC line failed event today, ultrasound-guided line was not able to be put in Discussed with the IR, anesthesiologist and vascular surgery-nobody can do the line which would last for 4 weeks in total The case was discussed with the ID specialist in [place]-he will have IV daptomycin for the next 5 days and after that he can get Zyvox for 2 weeks following the daptomycin to finish the course of antibiotic He will have CBC and CMP done and CK done every week while on Dapto and Zyvox The patient is agreeable to the later measures Increasing shortness of breath Especially lying down with more secretions and in inability to spit it out Was given nebulized Mucomyst Received intravenous Lasix of 40 mg on 08/01/2023 and will be giving another dose on 08/02/2023 He has been feeling better Likely discharge tomorrow following PICC line placement No shortness of breath at rest Seems to be at his baseline Mass in the chest: CT chest/soft tissue neck on 07/24/2023 with 6 cm right infraclavicular necrotic mass concerning for metastatic disease. Also has cervical lymphadenopathy measuring 15 x 8 mm. Underwent biopsy 07/28. Metastatic squamous cell carcinoma. Oncology following. f/u onco on dc. PET scan after discharge. Laryngeal cancer History of laryngectomy: Tracheostomy in place: History of laryngeal cancer; vocal cord SCC status post radiation, total laryngectomy Patient reports follow-up at [facility] 2 days prior to admission; Oncology on board; underwent biopsy of the mass seen on CT of the soft tissue neck, follow. f/u oncology on dc. Strongly advised to keep appointments with the healthcare providers as mentioned before Other chronic medical conditions: Continue with/resume home meds as and when able COPDcontinue home inhalers. Recently started on prednisone, currently on 5 mg once a day, being tapered off. Hypothyroidism: Continue levothyroxine CAD, CABG: Continue Plavix and Lipitor. Patient started on Eliquis April 2020 after CEA with CVA. SSS: Status post pacemaker. Echocardiogram as above. Hypertension: Continue with home amlodipine and metoprolol. Dyslipidemia: Continue with Lipitor Anxiety: Continue with Paxil DVT prophylaxis: Eliquis on hold for possible derek delmer. Full code Please note the above document was generated using voice recognition software. It may contain grammatical, syntax or spelling errors. Any formal questions or concerns about the content, text or information contained within the body of this dictation should be directly addressed to the provider for clarification Admission and Anticipated Discharge Date Admission Date: July 25, 2023 Subjective 08/01/2023 The patient was seen and examined in telemetry unit He has been stable but gets short of breath with more secretions when he lies down Denies any chest pain and palpitation He wants to go home but will need a PICC line before he can do that 08/02/2023 The patient was seen and examined in telemetry unit He has been feeling much better today No more desaturation and cough is diminished and wheezing is diminished to Denies any chest pain, palpitation or shortness of breath at rest 08/03/2023 The patient was seen and examined in telemetry unit He has been stable and feeling a lot better and wants to go home He denies any significant symptoms He does not want to stay till tonight for Dr. Bartlett to do the line Review of Systems Review of Systems: All systems reviewed and are unremarkable except as noted below Physical Exam Physical Exam: Sitting on a chair without any acute distress Constitutional: well developed, well nourished and + ill appearing Eyes: PERRL, conjunctivae normal, anicteric sclerae ENMT: external ear and nose normal, oropharynx normal Neck: trachea midline, no thyromegaly Respiratory: + respiratory distress (Minimal distress at rest) Auscultation: + diminished lung sounds and + crackles (Bilateral crackles with occasional wheezing) Cardiovascular: Rate/Rhythm: regular rate and regular rhythm; not tachycardic Heart Sounds: normal S1 and normal S2; no murmur Extremities: + edema (Trace edema bilaterally) Gastrointestinal (Abdomen): Inspection/Auscultation: normal bowel sounds; abdomen not distended Percussion/Palpation: abdomen soft; abdomen nontender Musculoskeletal: No acute arthritis involving any joint Neurologic: normal touch/pain/proprioception and moves all extremities; no focal motor deficits Psychiatric: A+Ox3, euthymic affect Lymphatic: no cervical or axillary lymphadenopathy Results & Data Results & Data Vital Signs (Past 12 Hours) Vital Signs Temp Pulse Resp BP Pulse Ox O2 Del Method FiO2 08/03/23 11:46 36.5 C 70 18 156/66 H 94 Room Air 08/03/23 11:30 84 15 98 Room Air 21 08/03/23 09:00 Room Air 08/03/23 07:52 36.4 C L 61 18 112/66 96 Room Air 08/03/23 07:21 61 14 94 Room Air 21 08/03/23 03:00 36.3 C L 66 20 134/71 98 Trach Collar Laboratory Results Short CBC 08/03/23 Range/Units 06:17 WBC 10.55 (4.8-10.8) K/ul Hgb 11.5 L (14.0-18.0) g/dl Hct 35.3 L (42.0-52.0) % Plt Count 367 (130-400) K/uL BMP 08/03/23 06:17 Sodium 137 Potassium 3.6 Chloride 100 Carbon Dioxide 29 BUN 14 Creatinine 0.84 Glucose 85 Calcium 8.5 L Medications Administered Current Inpatient Medications Acetaminophen (Acetaminophen Susp 160 Mg/5 Ml Btl) 650 mg PO Q4H PRN PRN Reason: Pain or Fever Stop: 08/29/23 08:12 Last Admin: 08/02/23 21:10 Dose: 650 mg Acetylcysteine (Acetylcysteine 10% Inhal Soln 4 Ml Dispensed By Resp.) 10 ml INH Q6H PRN PRN Reason: Shortness Of Breath Or Wheezing Stop: 08/31/23 11:44 Last Admin: 08/01/23 15:02 Dose: 10 ml Albuterol (Albut/Ipratrop 3mg/0.5mg Neb 3 Ml Vial) 3 ml INH QID PRN; Protocol PRN Reason: Shortness Of Breath Or Wheezing Stop: 08/24/23 13:46 Last Admin: 08/01/23 04:53 Dose: 3 ml Amlodipine Besylate (Amlodipine Besylate 5 Mg Tab) 5 mg PO HS [facility] Stop: 08/25/23 20:59 Last Admin: 08/02/23 20:23 Dose: 5 mg Apixaban (Apixaban 5 Mg Tablet) 5 mg PO BID [facility] Stop: 08/29/23 08:59 Last Admin: 08/02/23 08:49 Dose: 5 mg Budesonide (Budesonide 0.5 Mg/2 Ml Vial (Pulmicort)) 0.5 mg INH 0700 [facility] Stop: 08/25/23 06:59 Last Admin: 08/03/23 07:20 Dose: 0.5 mg Clopidogrel Bisulfate (Clopidogrel Bisulfate 75 Mg Tab) 75 mg PO QAM [facility] Stop: 08/25/23 08:59 Last Admin: 08/03/23 08:19 Dose: 75 mg Guaifenesin (Guaifenesin Sugar Free 200 Mg/10 Ml Udc) 400 mg PO BID [facility] Stop: 08/26/23 20:59 Last Admin: 08/03/23 08:18 Dose: Not Given Promethazine HCl 6.25 mg/ (Sodium Chloride) 50.25 mls @ 201 mls/hr IV Q6H PRN PRN Reason: Nausea And Vomiting Stop: 08/29/23 23:23 Last Infusion: 08/02/23 09:50 Dose: Infused Vancomycin HCl 1,250 mg/ (Sodium Chloride) 275 mls @ 200 mls/hr IV Q12H [facility] Stop: 08/09/23 12:00 Last Infusion: 08/03/23 08:17 Dose: 0 mls/hr Levalbuterol HCl (Levalbuterol 1.25 Mg/3 Ml Neb) 1.25 mg NEB QIDR [facility] Stop: 08/30/23 06:59 Last Admin: 08/03/23 11:28 Dose: 1.25 mg Levothyroxine Sodium (Levothyroxine Sodium 125 Mcg Tablet) 125 mcg PO DAILYBB [facility] Stop: 08/25/23 06:29 Last Admin: 08/03/23 06:24 Dose: 125 mcg Magnesium Hydroxide (Magnesium Hydroxide Susp 30 Ml Udc) 30 ml PO Q12H PRN PRN Reason: Constipation Stop: 08/24/23 13:46 Metoprolol Succinate (Metoprolol Succ 25mg Ext Rel Tab) 25 mg PO DAILY [facility] Stop: 09/02/23 08:59 Last Admin: 08/03/23 08:18 Dose: 25 mg Miscellaneous Information (Vancomycin Consult Active) 1 each N/A UD PRN PRN Reason: Consult Stop: 08/24/23 13:46 Nitroglycerin (Nitroglycerin Sl 0.4 Mg/Tab Tab) 0.4 mg SL Q5M PRN PRN Reason: Chest Pain Stop: 08/24/23 13:46 Pantoprazole Sodium (Pantoprazole 40 Mg Tab) 40 mg PO QAM [facility] Stop: 09/02/23 09:29 Last Admin: 08/03/23 11:48 Dose: 40 mg Paroxetine HCl (Paroxetine Hcl 20 Mg Tab) 20 mg PO HS [facility] Stop: 08/24/23 20:59 Last Admin: 08/02/23 20:23 Dose: Not Given Polyethylene Glycol (Polyethylene (Miralax) 17 Gm Pack) 17 gm PO DAILY PRN PRN Reason: Constipation Stop: 08/24/23 13:46 Prednisone (Prednisone 5 Mg Tab) 5 mg PO DAILY [facility] Stop: 08/05/23 08:59 Last Admin: 08/03/23 08:19 Dose: 5 mg
[2023-08-03] MEDS: DAPTOmycin 850 MG in SYRINGE 0 ML IV STA (15:43)
--- NOTE | 2023-08-04 17:11 | Discharge Summary ---
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 Recent history of biopsy on left arm on 07/19/2023 Patient presented to the ED yesterday with flulike symptoms with muscle aches, fever and chills. He reports that the symptom has been ongoing for last 7 to 10 days. He reports generalized fatigue and tiredness, reports chills as well. He was recently seen by his primary care doctor on 07/21/2023. He is recently on tapering dose of prednisone; currently on 5 mg once a day. He he reports having follow-up in [facility] for his history of SCC of larynx. His blood culture 1/2 came back positive for gram-positive cocci in chains PCR panel is positive for Enterococcus faecium; VRE gene in negative. He was called back to the hospital for admission. Blood work shows leukocytosis, lactate of 2.6. He had chest CT and soft tissue neck done on 07/23 which showed 6.2 into 6 cm right infraclavicular/interpectoral necrotic mass. He also has right single cervical lymphadenopathy measuring 15X8 mm. He was referred for biopsy to oncology/surgery. Past medical history; as above Past surgical history; as above Social history; smoked for 30 years with 2 packs/day; quit in 1984. 7.0 standard drinks of alcohol per week. Admission Exam Per Admitting Provider Physical Exam: Constitutional: Awake, alert oriented x 3. Able to voice; writes for communic ation Neck: Tracheostomy with TEP present; no overlying swelling/redness over tracheostomy site/flap. Respiratory: normal respiratory effort, lungs clear to auscultation, no wheeze, rales, rhonchi. Normal insp/exp effort, no accessory muscle use Cardiovascular: S1-S2, no murmur Chest: normal inspection of chest Abdomen: Soft, nontender Musculoskeletal: Biopsy site bandaged on left arm. Skin: no rashes, warm and dry normal turgor Neurologic: PERRL, EOMI, accommodation nl, no face palsy, no dysarthria CN's II- XI intact bilaterally and moves all extremities Psychiatric: A+Ox3, euthymic affect Principal Diagnosis Enterococcus faecium bacteremia, laryngeal cancer status post laryngectomy and tracheotomy , mass in the chest wall Discharge Exam Sitting on a chair without any acute distress Constitutional well developed, well nourished and + ill appearing Eyes PERRL, conjunctivae normal, anicteric sclerae ENMT external ear and nose normal, oropharynx normal Neck trachea midline, no thyromegaly Respiratory + respiratory distress (Minimal distress at rest) Auscultation: + diminished lung sounds and + crackles (Bilateral crackles with occasional wheezing) Cardiovascular Rate/Rhythm: regular rate and regular rhythm; not tachycardic Heart Sounds: normal S1 and normal S2; no murmur Extremities: + edema (Trace edema bilaterally) Gastrointestinal (Abdomen) Inspection/Auscultation: normal bowel sounds; abdomen not distended Percussion/Palpation: abdomen soft; abdomen nontender Neurologic normal touch/pain/proprioception and moves all extremities; no focal motor deficits Psychiatric A+Ox3, euthymic affect Lymphatic no cervical or axillary lymphadenopathy Discharge Data Allergies Allergy/AdvReac Type Severity Reaction Status Date / Time rosuvastatin [From Crestor] Allergy Unknown Unknown Verified 08/04/23 14:09 Consultations 07/25/23 10:21 ED Decision to Admit Stat 07/25/23 13:47 Consult Infectious Diseases Routine 07/27/23 07:32 Consult Oncology Routine 07/30/23 09:34 Consult Infectious Diseases Routine 07/30/23 13:47 Consult Cardiology Routine 07/30/23 15:21 Consult Anesthesiology Routine 08/03/23 11:37 Consult Vascular Surgery Routine Procedures Performed Operation Date: 07/31/23 07:30 Actual Procedures p Echo Transesophageal - DO arie Herring Echo Doppler Complete - DO arie Herring Echo Color Flow - True Prasad DO Ordered Studies 07/25/23 11:37 CT abd pelvis IV con only Stat 07/29/23 08:00 IR biops softtiss mass/[facility] Routine Hospital Course (1) Bacteremia due to Enterococcus: Plan 83-year-old male with PMH of COPD, sleep apnea, 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 [right piriform sinus] status post total laryngectomy, right neck dissection, right subtotal thyroidectomy, status post radiation therapy continue skin destruction which required right pectoral flap [place] [facility] [place] recurrence of cancer requiring tracheal stoma, CAD status post CABG, SSS status post PPM, PVD status post surgery, HTN HLD, CVA, hypothyroidism, CAD, chronic anemia, status post carotid endarterectomy, SCC on multiple areas, recent biopsy in left arm 07/15/2023 presented to the ED with flulike symptoms with muscle aches, fever and chills. He is being managed for the following: Sepsis: Bacteremia due to Enterococcus: Patient presented to the ED a day prior to admission with flulike symptoms with muscle aches, fever and chills for 7 to 10 days. 07/24/2023 1 out of 4 blood cultures with Enterococcus faecium growth, repeat 3 sets of blood cultures on 07/25/2023, 07/27/2023 and 07/29/[address] abdomen and pelvis showed mild low bladder wall thickening. No other acute findings. Urine analysis was negative for UTI. Transthoracic and transesophageal echocardiogram shows EF of 60 to 65%; study technically difficult. Valve structures not well-visualized. No evidence of infective endocarditis Has been on intravenous vancomycin Remains free from any more infective symptoms ID has evaluated, patient on vancomycin since 07/24, dose being monitored by pharmacy. Re d/w ID 07/29 - recs was DEREK. DEREK 07/30 neg for vegetations in the valve and pacer leads. Re d/w ID again on 07/30 - c/w vancomycin only for total of 4 weeks. occasional febrile episodes likely from underlying malignancy. Patient continues to feel better, WBC has been trending down, has been running fever on and off. Patient underwent biopsy of right chest wall under ultrasound guided core biopsy which showed metastatic squamous cell carcinoma Recommend patient f/u with ID in about 2 weeks from discharge. Failure with PICC line on Thursday and will try on Thursday prior to discharge Repeated trial to put the PICC line failed event today, ultrasound-guided line was not able to be put in Discussed with the IR, anesthesiologist and vascular surgery-nobody can do the line which would last for 4 weeks in total The case was discussed with the ID specialist in [place]-he will have IV daptomycin for the next 5 days and after that he can get Zyvox for 2 weeks following the daptomycin to finish the course of antibiotic He will have CBC and CMP done and CK done every week while on Dapto and Zyvox The patient is agreeable to the later measures Increasing shortness of breath Especially lying down with more secretions and in inability to spit it out Was given nebulized Mucomyst Received intravenous Lasix of 40 mg on 08/01/2023 and will be giving another dose on 08/02/2023 He has been feeling better Likely discharge tomorrow following PICC line placement No shortness of breath at rest Seems to be at his baseline Mass in the chest: CT chest/soft tissue neck on 07/24/2023 with 6 cm right infraclavicular necrotic mass concerning for metastatic disease. Also has cervical lymphadenopathy measuring 15 x 8 mm. Underwent biopsy 07/28. Metastatic squamous cell carcinoma. Oncology following. f/u onco on dc. PET scan after discharge. Laryngeal cancer History of laryngectomy: Tracheostomy in place: History of laryngeal cancer; vocal cord SCC status post radiation, total laryngectomy Patient reports follow-up at [facility] 2 days prior to admission; Oncology on board; underwent biopsy of the mass seen on CT of the soft tissue neck, follow. f/u oncology on dc. Strongly advised to keep appointments with the healthcare providers as mentioned before Other chronic medical conditions: Continue with/resume home meds as and when able COPDcontinue home inhalers. Recently started on prednisone, currently on 5 mg once a day, being tapered off. Hypothyroidism: Continue levothyroxine CAD, CABG: Continue Plavix and Lipitor. Patient started on Eliquis April 2020 after CEA with CVA. SSS: Status post pacemaker. Echocardiogram as above. Hypertension: Continue with home amlodipine and metoprolol. Dyslipidemia: Continue with Lipitor Anxiety: Continue with Paxil DVT prophylaxis: Eliquis on hold for possible derek delmer. Full code Please note the above document was generated using voice recognition software. It may contain grammatical, syntax or spelling errors. Any formal questions or concerns about the content, text or information contained within the body of this dictation should be directly addressed to the provider for clarification Total Time Total Time Spent Total Time Spent (In Minutes): 45 minutes Discharge Plan Discharge Items Patient Disposition: Home - Home Health Services Reason For Visit: BACTERIMIA Discharge Diagnosis: Enterococcus faecium bacteremia, laryngeal cancer status post laryngectomy and tracheotomy , mass in the chest wall Condition on Discharge: Fair Activity: Resume your previous activity Non-emergency contact: Primary Care Provider Call non-emergency contact if: you have any medication questions and your symptoms worsen Follow-up/Referrals: Neto Rasheed MD [Primary Care Provider] - (Date & Time 08/06/2023 10:20 AM Provider Jodie Fisher MD Department General Internal Medicine [facility] ) Lefty Lazo MD [Physician] - 08/19/23 2:00 pm (Please keep previously scheduled appointment on 08/19/23 at 2:00) Diet: Regular Addtl Attending Provider Instructions: Please take precautions to avoid fall Finish the course of antibiotic as advised You need to come to [facility] for IV daptomycin as ordered Following that you will need to take oral Zyvox for 2 weeks Start taking Zyvox after finishing intravenous daptomycin. Do not take paroxetine as long as you are on oral Zyvox You need to have CBC and CMP checked every week for next 2 weeks Pending Studies at Discharge: No Stand-Alone Forms: My Shustir, Smoking Cessation Medications and DC Order Prescriptions: New linezolid [Zyvox] 600 mg tablet 600 mg PO BID 14 Days Qty: 28 0RF Rx Instructions: Start after finishing IV Daptomycin. Continued ipratropium-albuterol 0.5 mg-3 mg(2.5 mg base)/3 mL solution for nebulization 3 ml INH QID PRN (Reason: Shortness Of Breath Or Wheezing) paroxetine HCl [Paxil] 20 mg tablet 20 mg PO HS levothyroxine 125 mcg tablet 125 mcg PO QAM nitroglycerin 0.4 mg tablet, sublingual 1 tab Sublingual UD PRN (Reason: Chest Pain) Patient Comments: Never had to use albuterol sulfate 2.5 mg /3 mL (0.083 %) Solution For Nebulization 2.5 mg INHALATION QID PRN (Reason: Shortness Of Breath Or Wheezing) clopidogrel 75 mg tablet 75 mg PO QAM amlodipine 5 mg tablet 5 mg PO HS atorvastatin [Lipitor] 40 mg tablet 40 mg PO HS acetaminophen [Tylenol Extra Strength] 500 mg Tablet 1,000 mg PO QID PRN (Reason: Fever Or Pain) budesonide [Pulmicort] 0.5 mg/2 mL Suspension For Nebulization 0.5 mg INHALATION DAILY metoprolol succinate 25 mg tablet extended release 24 hr 25 mg PO DAILY Eliquis 5 mg tablet 5 mg PO BID polyethylene glycol 3350 [Miralax] 17 gram powder in packet 17 g PO DAILY PRN (Reason: Constipation) guaifenesin [Mucinex] 600 mg Tablet Extended Release 12hr 600 mg PO Q12 Qty: 30 0RF prednisone 10 mg tablet 10 mg PO UD Rx Instructions: as directed omeprazole 20 mg capsule,delayed release(DR/EC) 20 mg PO DAILY Discontinued doxycycline hyclate 100 mg Capsule 100 mg PO BID PRN (Reason: rescue kit.) amoxicillin-pot clavulanate 875-125 mg tablet 1 tab PO BID Qty: 14 0RF Discharge Orders: Discharge Order (Routine); Ordered 08/03/23 Ordered By: Nino Lai Admission Data Admit Date/Time: 07/25/23 11:37 Attending Provider: Nino Lai Admit Provider: Long Rodriguez Primary Care Provider: Neto Rasheed Other Providers: Yohana Wright; Florencio Lucero; Brian Dasilva; Brandyn Stone I.; Wilfredo Damon II; Luly Mobley; Wilman Burks; Clinton Jim; Adria Rawls; Lefty Lazo; Thomas Awad; Thomas Moore; [place],Fax; [facility]; Kerline Castellanos; Bill Bartlett Other Interventions: Discharge Summary Assessment (RN) Last Done: 08/03/23 14:51
== END 2023-08-03 16:18 | disposition home health service (06) | DRG 871 ==
LOC: ED 09:57 → EDINP 11:37 → SUATTDRO 11:37 → 2S 13:47

== ENCOUNTER 2023-09-21 10:57 | Observation (INO) ==
--- OUTSIDE RECORDS SUMMARY | 2023-09-21 11:03 | External Medical Summary | Summary of Care ---
Author Name Unknown Organization [facility] Address [address] [facility] [address] Phone [phone] Care Team Providers Care Advertising Operations Manager Name Role Phone Neto Rasheed MD Primary Care Provider + Reason for Visit * Reason Onset Date Comments FYI 09/17/2023 Encounter Details Date Type Department Care Team (Late st Contact Info) Description 09/17/2023 Telephone General Internal Medicine [facility] [place] [address] [facility] [place] [address] Neto Rasheed [facility] [address] [facility] [address] FY Allergies No known active allergiesdocumented as of this encounter (statuses as of 09/18/2023) Medications Medication Sig Dispensed Refills Start Date End Date Status nitroglycerin (NITROSTAT) 0.4 MG SUBLIndications:CAD (coronary artery disease), [place] coronary artery,Chest pain,SOB (shortness of breath),Malaise and fatigue Place 1 Tab under the tongue every 5 minutes as needed for Pain, Chest. Max dose 3 tablets in 15 minutes 25 Tab 3 11/08/2018 Active Misc. Devices MISC Cool mist humidification device 1 Each 05/02/2019 Active Misc. Devices MISC Portable suction device 1 Each 05/02/2019 Active Misc. Devices MISC Trach care cleaning kit 1 Each 05/02/2019 Active Misc. Devices MISC Yankauer suction tips 10 Each 5 05/02/2019 Active Misc. Devices MISC 12Fr flexible suction catheters 10 Each 5 05/02/2019 Active Misc. Devices MISC Inner cannulas for Shiley size 10 cuffless laryngectomy tube 10 Each 5 05/02/2019 Active polyethylene glycol 3350 (MIRALAX) packet Take 1 Packet by mouth daily. 14 Each 05/02/2019 Active Additional Information Patient taking differently:17 g OralDAILY PRN, Constipation, Informant: Patient, Reported on 06/02/2022 Misc. Devices MISC Size 10 shiley laryngectomy tube 2 Each 5 08/09/2019 Active acetaminophen (TYLENOL) 500 MG Tablet Take 2 Tablets by mouth every 4 hours as needed for Fever >38C(100.5F) or Pain, Mild. Active Fluorouracil 5 % External Cream (Efudex)Indications :Actinic keratosis Apply to rough spots on the scalp nightly x 2-4 weeks. 40 g 05/18/2020 Active Misc. Devices one ultra voice 1 Each 06/15/2020 Active Ipratropium-Albuter ol 0.5-2.5 (3) MG/3ML [...] 180 days 1 Each 1 12/25/2021 Active Fluorouracil 5 % External Cream (Efudex) apply to left forearm twice daily for 3 weeks, then treat right forearm 40 g 1 06/30/2022 Active Eliquis 5 MG Oral Tablet (Apixaban) TAKE 1 TABLET BY MOUTH TWICE A DAY 60 Tablet 5 07/03/2022 Active Atorvastatin Calcium 40 MG Oral Tablet (Lipitor)Indication s:Coronary artery disease involving [place] coronary artery of [place] heart without angina pectoris,Dyslipidem ia, goal LDL below 70 TAKE 1 TABLET BY MOUTH EVERY DAY IN THE MORNING 90 Tablet 3 02/06/2023 Active PARoxetine HCl 20 MG Oral Tablet (pAXil) TAKE 1 TABLET BY MOUTH EVERY DAY 90 Tablet 3 04/03/2023 Active Metoprolol Succinate ER 25 MG Oral Tablet Extended Release 24 Hour (toPROL XL)Indications:HTN, goal below 140/90,Coronary artery disease involving [place] coronary artery of [place] heart without angina pectoris,Aortocoron sharon bypass status,PAF (paroxysmal atrial fibrillation) (HCC) Take 1 Tablet by mouth in the morning. 90 Tablet 3 07/07/2023 Active Omeprazole 20 MG Oral Capsule Delayed Release (PriLOSEC)Indicatio ns:Gastroesophageal reflux disease without esophagitis Take 1 Capsule by mouth in the morning. 90 Capsule 1 07/21/2023 Active Ipratropium-Albuter ol 0.5-2.5 (3) MG/3ML Inhalation Solution (Duoneb)Indications :COPD, moderate (HCC) Inhale 3 mL via nebulizer in the morning and 3 mL at noon and 3 mL in the evening and 3 mL before bedtime. 360 mL 3 08/04/2023 Active Albuterol Sulfate (2.5 MG/3ML) 0.083% Inhalation Nebulization Solution (Proventil)Indicati ons:COPD, moderate (HCC) Inhale 1 Vial via nebulizer in the morning and 1 Vial at noon and 1 Vial in the evening and 1 Vial before bedtime. 360 mL 1 08/04/2023 Active Levothyroxine Sodium 125 MCG Oral Tablet (Levoxyl) TAKE 1 TABLET BY MOUTH EVERY DAY AT LEAST 30 MIN BEFORE BREAKFAST OR OTHER MEDICATION 90 Tablet 1 08/24/2023 Active Clopidogrel Bisulfate 75 MG Oral Tablet (pLAVix) TAKE 1 TABLET BY MOUTH EVERY DAY 90 Tablet 1 09/14/2023 Active Vitron-C 65-125 MG Oral Tablet (Iron-Vitamin C 65-125 mg per tab)Indications:Iro n deficiency anemia, unspecified iron deficiency anemia type Take 1 Tablet by mouth in the morning. 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 Cruz f/u Organic sleep disorder 09/19/200309/03 Actinic keratosis 09/19/2003 09/03/2017 OBESITY, UNSPECIFIED 08/30/2002 010 Overview: Per Obesity Taxonomy PURE HYPERCHOLESTEROLEM 03/27 Overview: Per Lipid Taxonomy. HTN, goal below 140/90 09/03 Overview: Hypertension Benign documented as of this encounter (statuses as of 09/18/2023) Immunizations Name Administration Dates Next Due COVID-19 mRNA, LNP-s, No Pre serve, 2-Dose Series (Zenogen) 03/29/2021,07/06/2020,06/15/2020 COVID-19, LNP-s, No Preserve , Evert-sucrose, [...] Influenza, Split, I IV3, With Preserve, Inj 01/20/2013,01/22/2012,01/20/2011,03/08,12/26/2008,03/07/2008,05/17/2001 Seasonal Influenza, Trivalen t, Adjuvanted, 65+ yrs [...] Telephone Encounter - Neto Rasheed MD - 09/18/2023 11:46 AM EDT Report called to ER * Telephone Encounter - Mary Grace Stokes LPN - 09/18/2023 11:32 AM EDT Patient's is aware and verbalizes understanding. * Telephone Encounter - Tootie Knutson LPN - 09/18/2023 10:22 AM EDT LMOM for pt to return call. Please transfer pt to dedicated nurse line when he calls back for them to relay him the message from Dr. Torrez message below. * Telephone Encounter - Neto Rasheed MD - 09/18/2023 9:52 AM EDT Please call patient shelli. With higher wbc, fatigue, lower bp I am concerned he may have an infection and I would suggest he go to ER now for stat imaging, work up and possible admission. I want to make sure he is not getting septic again * Telephone Encounter - Sherly Diego OSA - 09/17/2023 4:58 PM EDT Lucy physicians talent acquisition assistant from [place]. calling patients labs for white blood cell count are up to 19.4 from 15.8. She would also like the doctor to know the patient will be having surgery for his cancer and the date is to be determined documented in this encounter Plan of Treatment Upcoming Encounters Date Type Department Care Team (Late st Contact Info) Description 10/01/2023 1:00 PM EDT Nurse Only Ancillary [facility] [place] [address] [place], [place] [address] Nurse, Int Med [address] [facility] [place], [place] [address] 12/09/2023 10:00 AM EDT Office Visit Cardiology, [facility] [address] [place] [address] Elvira Alexander PA-C [address] [facility] [place] [address] 02/17/2024 10:00 AM EDT Office Visit General Internal Medicine [facility] [address] [facility] [address] [place] [address] Neto Rasheed MD [address] [facility] [place] [address] 07/14/2024 1:45 PM EDT Office Visit Dermatology [facility] [address] [facility] [address] [place] [address] Bonnie Sawyer MD [address] [facility] [place] [address] Health Maintenance Due Date Last Done Comments Alpha-1 Antitrypsin 1957 Zoster Vaccines (1 of 2) 1989 COVID-19 Vaccine (2022- season) 2022 08/29/2021, 03/29/2021, 07/06/2020, Additional history exists GFR 09/16/2024 09/17/2023, 07/26, 08/03/2023, Additional history exists O2 ASSESSMENT COMPLETED IN PAST YEAR FOR COPD 09/16/2024 09/17/2023 TSH 09/16/2024 09/17/2023, 06/26, 08/20/2022, Additional history exists DTaP,Tdap,and Td Vaccines (6 [...] this encounter Medical Devices Implanted Type Area Gum Dipper Device Identifier Shelf Expiration Date Model / Serial / Lot Woundmatrix [id number] [id number] (150 Units) - [id number] - [id number] Implanted:Qty: 150 on 04/18/2019 by Hayden Fleming MD at OR [facility] Left: Leg Upper [employer] [id number] 01/25/2020 [id number] / [id number] / [id number] Indwelling Voice Prosthesis Implanted:Qty: 1 on 10/26/2019 by Hayden Fleming MD at OR [facility] N/A: Throat 08/16/2021 1616-NS / / [id number] Description:[employer]OL OGNAYELI REF : [place] 1616-NS ([place]) CLASSIC INDWELLING VOICE PROSTHESIS WITH INSERTION / CLEANING ACCESSORIES documented as of this encounter Advance Directives Documents on File Type Date Recorded Patient Agronomy Supervisor Expl anation Power of Manager Post 09/27/2018 POWER OF A TTORNEY * Full Code (Latest Code Status on File) Date Activated Date Inactivated Comments 12/05/2019 8:46 PM 12/08/2019 8:52 PM This order r eflects the patients wishes and were consensually agreed upon. Question Answer Comments Discussion of Advance Directives occurred with: Not Discussed * Full Code Date Activated Date Inactivated Comments 04/18/2019 8:34 PM 05/03/2019 3:06 PM This order r eflects the patients wishes and were consensually agreed upon. * Full Code Date Activated Date Inactivated Comments 04/18/2019 8:29 PM 04/18/2019 8:34 PM This order reflects the patients wishes and were consensually agreed upon. Care Teams Advertising Operations Manager Relationship Specialty Start Date End Date Neto Rasheed MD [address] [place] [address] PCP - General Internal Medicine 02/14/21 documented as of this encounter
--- OUTSIDE RECORDS SUMMARY | 2023-09-21 11:03 | External Medical Summary | Summary of Care ---
Author Name Unknown Organization [facility] Address [address] [facility] [address] Phone [phone] Care Team Providers Care Glass Laminating Operator Name Role Phone Neto Rasheed MD Primary Care Provider + Reason for Visit * Reason Onset Date Comments FYI 09/17/2023 Encounter Details Date Type Department Care Team (Late st Contact Info) Description 09/17/2023 Telephone General Internal Medicine [facility] [place] [address] [facility] [place] [address] Neto [facility]heed MD [facility] [address] FY Allergies No known active allergiesdocumented as of this encounter (statuses as of 09/18/2023) Medications Medication Sig Dispensed Refills Start Date End Date Status nitroglycerin (NITROSTAT) 0.4 MG SUBLIndications:CAD (coronary artery disease), [place] coronary artery,Chest pain,SOB (shortness of breath),Malaise and [...] Oral Tablet (Lipitor)Indication s:Coronary artery disease involving [place] coronary artery of [place] heart without angina pectoris,Dyslipidem ia, goal LDL below 70 TAKE 1 TABLET BY MOUTH EVERY DAY IN THE MORNING 90 Tablet 3 02/06/2023 Active PARoxetine HCl 20 MG Oral Tablet (pAXil) TAKE 1 TABLET BY MOUTH EVERY DAY 90 Tablet 3 04/03/2023 Active Metoprolol Succinate ER 25 MG Oral Tablet Extended Release 24 Hour (toPROL XL)Indications:HTN, goal below 140/90,Coronary artery disease involving [place] coronary artery of [place] heart without angina pectoris,Aortocoron sharon bypass status,PAF [...] of gout 02/05/2012 CAD (coronary artery disease), [place] coronary a rtery 01/22/2012 Other voice and [...] mRNA, LNP-s, No Pre serve, 2-Dose Series (Aptible) 03/29/2021,07/06/2020,06/15/2020 COVID-19, LNP-s, No Preserve , Evert-sucrose, [...] Notes * Telephone Encounter - Mary Grace Stokes [...] - 09/17/2023 4:58 PM EDT Lucy physicians miner assistant from [place]. calling patients labs for white blood cell [...] 10/01/2023 1:00 PM EDT Nurse Only Ancillary [facility] [place] [address] [place] [address] Nurse, [facility] Med [address] [place] [address] 12/09/2023 10:00 AM EDT Office Visit Cardiology, [facility] [address] [place] [address] Elvira Alexander PA-C [address] [place] [address] 02/17/2024 10:00 AM EDT Office Visit General Internal Medicine [facility] [address] [facility] [place] [address] Neto Rasheed MD 200 [facility] [place] [address] 07/14/2024 1:45 PM EDT Office Visit Dermatology [facility] 200 [facility] [place] [address] Bonnie Sawyer MD 200 [facility] [place] [address] Health Maintenance Due Date Last Done Comments [...] this encounter Medical Devices Implanted Type Area Cloud Subject Matter Expert Device Identifier Shelf Expiration Date Model / Serial / Lot Woundmatrix Fenstr [id number] (150 Units) - [id number] - [id number] Implanted:Qty: 150 on 04/18/2019 [place] [facility] [place] Leg Upper [employer] [id number] 01/25/2020 [id number] / [id number] / [id number] Indwelling Voice Prosthesis Implanted:Qty: 1 on 10/26/2019 by Hayden Fleming [place] [facility] [place]A: Throat 08/16/2021 1616-NS / / [id number] Description:INHEALTH TECHNOL OGIES REF : IN 1616-NS (HECTOR-ALONZO) CLASSIC INDWELLING VOICE PROSTHESIS WITH INSERTION / CLEANING ACCESSORIES documented as of this encounter Advance Directives Documents on File Type Date Recorded Patient Seed Tester Expl anation Power of Global Sales Manager 09/27/2018 POWER OF A TTORNEY * Full [...] and were consensually agreed upon. Care Teams Glass Laminating Operator Relationship Specialty Start Date End Date Neto Rasheed MD 200 [facility] [place] [place] [address] PCP - General Internal Medicine 02/14/21 documented as of this encounter
--- OUTSIDE RECORDS SUMMARY | 2023-09-21 11:04 | External Medical Summary | Summary of Care ---
Author Name Unknown Organization [facility] Address [address] [facility] [place] [address] Phone [phone] Care Team Providers Care Matrix Bath Attendant Name Role Phone Neto Rasheed MD Primary Care Provider + Reason for Visit * Reason Onset Date Comments Test Results 09/17/2023 Encounter Details Date Type Department Care Team (Late st Contact Info) Description 09/17/2023 Telephone Cardiology, [facility] [address] [place] [address] Elvira Alexander PA-C [address] [place] [address] Test Results Allergies No known active allergiesdocumented as of this encounter (statuses as of 09/17/2023) Medications Medication Sig Dispensed Refills Start Date End Date Status nitroglycerin (NITROSTAT) 0.4 MG SUBLIndications:CAD (coronary artery disease), tribal coronary artery,Chest pain,SOB (shortness of breath),Malaise and [...] for Wheezing. 360 mL 5 09/24/2021 Active Additional Information Patient not taking.Reported on 09/08/2023 Sodium Chloride 0.9 % Inhalation Nebulization SolutionIndications [...] Oral Tablet (Lipitor)Indication s:Coronary artery disease involving tribal coronary artery of tribal heart without angina pectoris,Dyslipidem ia, goal LDL below 70 TAKE 1 TABLET BY MOUTH EVERY DAY IN THE MORNING 90 Tablet 3 02/06/2023 Active PARoxetine HCl 20 MG Oral Tablet (pAXil) TAKE 1 TABLET BY MOUTH EVERY DAY 90 Tablet 3 04/03/2023 Active Metoprolol Succinate ER 25 MG Oral Tablet Extended Release 24 Hour (toPROL XL)Indications:HTN, goal below 140/90,Coronary artery disease involving tribal coronary artery of tribal heart without angina pectoris,Aortocoron sharon bypass status,PAF [...] as of this encounter (statuses as of 09/17/2023) Active Problems Problem Noted Date Diagnosed Date [...] of gout 02/05/2012 CAD (coronary artery disease), tribal coronary a rtery 01/22/2012 Other voice and [...] as of this encounter (statuses as of 09/17/2023) Resolved Problems Problem Noted Date Diagnosed Date [...] as of this encounter (statuses as of 09/17/2023) Immunizations Name Administration Dates Next Due COVID-19 mRNA, LNP-s, No Pre serve, 2-Dose Series (5 Million Shoppers) 03/29/2021,07/06/2020,06/15/2020 COVID-19, LNP-s, No Preserve , Evert-sucrose, [...] encounter Miscellaneous Notes * Telephone Encounter - Lance Jeong LPN - 09/17/2023 1:09 PM EDT Patient will be informed at upcoming OV today. ----- Message from Elvira Alexander sent at 09/17/2023 1:05 PM EDT ----- Repeat blood cultures negative x2 Good documented in this encounter Plan of Treatment Upcoming Encounters Date Type Department Care Team (Late st Contact Info) Description 09/17/2023 3:00 PM EDT Office Visit Cardiology, [facility] [address] [place] [address] Elvira Alexander PA-C [address] [place] [address] 10/01/2023 1:00 PM EDT Nurse Only Ancillary [facility] [place] [address] [place] [address] Nurse, Int Med [address] [place] [address] 12/09/2023 10:00 AM EDT Office Visit Cardiology, [facility] [address] [place] [address] Elvira Alexander PA-C [address] [place] [address] 02/17/2024 10:00 AM EDT Office Visit General Internal Medicine [facility] [address] [place] [address] Neto Rasheed MD 200 [facility] [place] [address] 07/14/2024 1:45 PM EDT Office Visit Dermatology [facility] [address] [place] [address] Bonnie Ahumada MD [address] [place] [address] Health Maintenance Due Date Last Done Comments Alpha-1 Antitrypsin 1957 Zoster Vaccines (1 of 2) 1989 COVID-19 Vaccine (5 - 2022-24 season) 2022 08/29/2021, 03/29/2021, 07/06/2020, Additional history exists TSH 07/20/2024 07/21/2023, 04/2 09/2022, 08/22/2021, Additional history exists GFR 08/13/2024 08/14/2023, 04/0 11/2023, 07/21/2023, Additional history exists O2 ASSESSMENT COMPLETED IN PAST YEAR FOR COPD 09/16/2024 09/17/2023 DTaP,Tdap,and Td Vaccines (6 - Td or [...] this encounter Medical Devices Implanted Type Area Automotive Generator Repairer Device Identifier Shelf Expiration Date Model / Serial / Lot Woundmatrix Fenstr [id number] (150 Units) - [id number] - [id number] Implanted:Qty: 150 on 04/18/2019 by Hayden Fleming MD at [facility] Left: Leg Upper [employer] [id number] 01/25/2020 [id number] / [id number] / [id number] Indwelling Voice Prosthesis Implanted:Qty: 1 on 10/26/2019 by Hayden Fleming MD [place] [facility] [place]A: Throat 08/16/2021 1616-NS / / [id number] Description:INHEALTH TECHNOL OGNAYELI REF : IN 1616-NS (HECTOR-ALONZO) CLASSIC INDWELLING VOICE PROSTHESIS WITH INSERTION / CLEANING ACCESSORIES documented as of this encounter Advance Directives Documents on File Type Date Recorded Patient Relationship Counselor Expl anation Power of Rn Iv Therapy 09/27/2018 POWER OF A TTORNEY * Full [...] and were consensually agreed upon. Care Teams Matrix Bath Attendant Relationship Specialty Start Date End Date Neto Rasheed MD 200 [place] [address] PCP - General Internal Medicine 02/14/21 documented as of this encounter
--- OUTSIDE RECORDS SUMMARY | 2023-09-21 11:04 | External Medical Summary ---
Author Name Unknown Address Unknown Organization K01:LABORATORY [facility] - [address] [place] [address] Laboratory Report Ordering Provider Test Date Status DEV LIAO 09/17/2023 12:07:17 Final Observation Date Value Abnormality Reference (Units ) Status TSH 09/17/2023 12:07:17 4.53 Above high normal 0. 27-4.20 (uIU/mL) Final Performing Location LABORATORY [facility] - [address] [place] [address]
--- OUTSIDE RECORDS SUMMARY | 2023-09-21 11:04 | External Medical Summary | Summary of Care ---
Author Name Unknown Organization [facility] Address [address] [facility] [place] [address] Phone [phone] Care Team Providers Care Kiln Puller Name Role Phone Neto Rasheed MD Primary Care Provider + Reason for Visit * Reason Comments Outpatient Testing Encounter Details Date Type Department Care Team (Late st Contact Info) Description 09/17/2023 12:00 PM EDT Laboratory Laboratory [facility] 200 [place] [address] [facility] [address] [facility] [place] [address] Iron deficiency anemia, unspecified iron deficiency anemia type; Acquired hypothyroidism Allergies No known active allergiesdocumented as of this encounter (statuses as of 09/17/2023) Medications Medication Sig Dispensed Refills Start Date End Date Status nitroglycerin (NITROSTAT) 0.4 MG SUBLIndications:CA D (coronary artery disease), [place] coronary artery,Chest pain,SOB (shortness of breath),Malaise and fatigue Place 1 Tab under the tongue every 5 minutes as needed for Pain, Chest. Max dose 3 tablets in 15 minutes 25 Tab 3 9 Active Misc. Devices MISC Cool mist humidification device 1 Each 0 Active Misc. Devices MISC Portable suction device 1 Each 0 Active Misc. Devices MISC Trach care cleaning kit 1 Each 0 Active Misc. Devices MISC Yankauer suction tips 10 Each 5 0 Active Misc. Devices MISC 12Fr flexible suction catheters 10 Each 5 0 Active Misc. Devices MISC Inner cannulas for Shiley size 10 cuffless laryngectomy tube 10 Each 5 0 Active polyethylene glycol 3350 (MIRALAX) packet Take 1 Packet by mouth daily. 14 Each 0 Active Additional Information Patient taking differently:17 g OralDAILY PRN, Constipation, Informant: Patient, Reported on 06/02/2022 Misc. Devices MISC Size 10 shiley laryngectomy tube 2 Each 5 0 Active acetaminophen (TYLENOL) 500 MG Tablet Take 2 Tablets by mouth every 4 hours as needed for Fever >38C(100.5F) or Pain, Mild. Active Fluorouracil 5 % External Cream (Efudex)Indication s:Actinic keratosis Apply to rough spots on the scalp nightly x 2-4 weeks. 40 g 1 Active Misc. Devices one ultra voice 1 Each 1 Active Ipratropium-Albute rol 0.5-2.5 (3) MG/3ML Inhalation Solution (Duoneb)Indication s:COPD, moderate (HCC) Inhale via nebulizer 3 mL every 6 hours as needed for Wheezing. 360 mL 5 2 Active Additional Information Patient not taking.Reported on 09/08/2023 Sodium Chloride 0.9 % Inhalation Nebulization SolutionIndication s:Aspiration pneumonia of both lungs, unspecified aspiration pneumonia type, unspecified part of lung (HCC) Use as directed to clean tracheostomy 3 mL 3 2 Active Zoster Vac Recomb Adjuvanted 50 MCG/0.5ML Intramuscular Suspension Reconstituted (Shingrix)Indicati ons:Need for vaccination for zoster Inject 0.5 mL into a large muscle now and repeat dose in 60 to 180 days 1 Each 1 2 Active Fluorouracil 5 % External Cream (Efudex) apply to left forearm twice daily for 3 weeks, then treat right forearm 40 g 1 3 Active Eliquis 5 MG Oral Tablet (Apixaban) TAKE 1 TABLET BY MOUTH TWICE A DAY 60 Tablet 5 3 Active Atorvastatin Calcium 40 MG Oral Tablet (Lipitor)Indicatio ns:Coronary artery disease involving [place] coronary artery of [place] heart without angina pectoris,Dyslipide glenda, goal LDL below 70 TAKE 1 TABLET BY MOUTH EVERY DAY IN THE MORNING 90 Tablet 3 3 Active PARoxetine HCl 20 MG Oral Tablet (pAXil) TAKE 1 TABLET BY MOUTH EVERY DAY 90 Tablet 3 3 Active Metoprolol Succinate ER 25 MG Oral Tablet Extended Release 24 Hour (toPROL XL)Indications:HTN , goal below 140/90,Coronary artery disease involving [place] coronary artery of [place] heart without angina pectoris,Aortocoro nary bypass status,PAF (paroxysmal atrial fibrillation) (HCC) Take 1 Tablet by mouth in the morning. 90 Tablet 3 4 Active Omeprazole 20 MG Oral Capsule Delayed Release (PriLOSEC)Indicati ons:Gastroesophage al reflux disease without esophagitis Take 1 Capsule by mouth in the morning. 90 Capsule 1 4 Active Ipratropium-Albute rol 0.5-2.5 (3) MG/3ML Inhalation Solution (Duoneb)Indication s:COPD, moderate (HCC) Inhale 3 mL via nebulizer in the morning and 3 mL at noon and 3 mL in the evening and 3 mL before bedtime. 360 mL 3 4 Active Albuterol Sulfate (2.5 MG/3ML) 0.083% Inhalation Nebulization Solution (Proventil)Indicat ions:COPD, moderate (HCC) Inhale 1 Vial via nebulizer in the morning and 1 Vial at noon and 1 Vial in the evening and 1 Vial before bedtime. 360 mL 1 4 Active Levothyroxine Sodium 125 MCG Oral Tablet (Levoxyl) TAKE 1 TABLET BY MOUTH EVERY DAY AT LEAST 30 MIN BEFORE BREAKFAST OR OTHER MEDICATION 90 Tablet 1 4 Active Clopidogrel Bisulfate 75 MG Oral Tablet (pLAVix) TAKE 1 TABLET BY MOUTH EVERY DAY 90 Tablet 1 4 Active Vitron-C 65-125 MG Oral Tablet (Iron-Vitamin C 65-125 mg per tab)Indications:Ir on deficiency anemia, unspecified iron deficiency anemia type Take 1 Tablet by mouth in the morning. 4 Active Linezolid 600 MG Oral Tablet (Zyvox) Take 1 Tablet by mouth in the morning and 1 Tablet before bedtime. 4 09/17/19 24 Discontinu ed(Patient preference /discontin uation) documented as of this encounter (statuses as [...] of gout 02/05/2012 CAD (coronary artery disease), [place] coronary a rtery 01/22/2012 Other voice and [...] mRNA, LNP-s, No Pre serve, 2-Dose Series (Xinguodu) 03/29/2021,07/06/2020,06/15/2020 COVID-19, LNP-s, No Preserve , Evert-sucrose, [...] No 12/06/2019 documented as of this encounter Plan of Treatment Upcoming Encounters Date Type Department Care Team (Late st Contact Info) Description 09/17/2023 12:30 PM EDT Imaging Radiology [facility] [address] [place] [address] [id number] Arrived 09/17/2023 3:00 PM EDT Office Visit Cardiology, [facility] [address] [facility] [place] [address] Elvira Alexander PA-C [address] [place] [address] 10/01/2023 1:00 PM EDT Nurse Only Ancillary [facility] [address] [place] [address] [address] Nurse, Int Med [address] [place] [address] [address] 12/09/2023 10:00 AM EDT Office Visit Cardiology, [facility] [address] [place] [address] Elvira Alexander PA-C [address] [place] [address] 02/17/2024 10:00 AM EDT Office Visit General Internal Medicine [facility] [address] [place] [address] [address] Neto Rasheed MD [address] [place] [address] [address] 07/14/2024 1:45 PM EDT Office Visit Dermatology [facility] [address] [place] [address] [address] Bonnie Sawyer MD [facility] [place] [address] Pending Results Name Type Priority Associated Diagnoses Date /Time COMPREHENSIVE METABOLIC PANEL Lab Routine Iron deficiency anemia, unspecified iron deficiency anemia type 09/17/2023 12:07 PM EDT CBC WITH WBC DIFFERENTIAL Lab Routine Iron deficiency anemia, unspecified iron deficiency anemia type 09/17/2023 12:07 PM EDT TSH Lab Routine Acquired hypothyroidism 09/17/2023 12:07 PM EDT CBC Lab Routine Iron deficiency anemia, unspecified iron deficiency anemia type 09/17/2023 12:07 PM EDT DIFFERENTIAL, AUTOMATED Lab Routine Iron deficiency anemia, unspecified iron deficiency anemia type 09/17/2023 12:07 PM EDT Health Maintenance Due Date Last Done Comments Alpha-1 Antitrypsin 1957 Zoster Vaccines (1 of 2) 1989 COVID-19 Vaccine ( season) 2022 08/29/2021, 03/29/2021, 07/06/2020, Additional history exists TSH 07/20/2024 07/21/2023, 04/2 09/2022, 08/22/2021, Additional history exists GFR 08/13/2024 08/14/2023, 04/0 11/2023, 07/21/2023, Additional history exists O2 ASSESSMENT COMPLETED IN PAST YEAR FOR COPD 08/13/2024 08/14/2023 DTaP,Tdap,and Td Vaccines (6 - Td or [...] this encounter Medical Devices Implanted Type Area Groundskeeping Maintenance Device Identifier Shelf Expiration Date Model / Serial / Lot Woundmatrix Fenstr [id number] (150 Units) - [id number] - [id number] Implanted:Qty: 150 on 04/18/2019 by Hayden Fleming MD [place] [facility] [place] Left: Leg Upper [employer] [id number] 01/25/2020 [id number] / [id number] / [id number] Indwelling Voice Prosthesis Implanted:Qty: 1 on 10/26/2019 by Hayden Fleming MD [place] [facility] [place] N/A: Throat 08/16/2021 1616-NS / / [id number] Description:INHEALTH TECHNOL OGIES REF : IN 1616-NS (HECTOR-ALONZO) CLASSIC INDWELLING VOICE PROSTHESIS WITH INSERTION / CLEANING ACCESSORIES documented as of this encounter Visit Diagnoses Diagnosis Iron deficiency anemia, unspecified iron deficiency anemia type Acquired hypothyroidism Unspecified hypothyroidism documented in this encounter Advance Directives Documents on File Type Date Recorded Patient Wealth Management Manager Expl anation Power of Service Station Manager 09/27/2018 POWER OF A TTORNEY * [...] and were consensually agreed upon. Care Teams Kiln Puller Relationship Specialty Start Date End Date Neto Rasheed MD 200 [place] [address] PCP - General Internal Medicine 02/14/21 documented as of this encounter
--- OUTSIDE RECORDS SUMMARY | 2023-09-21 11:04 | External Medical Summary | Summary of Care ---
Author Name Unknown Organization [facility] Address [address] [facility] [address] Phone [phone] Care Team Providers Care Prefitter Name Role Phone Neto Méndez MD Primary Care Provider + Reason for Referral * Evaluate & Treat - Unlimited Visits (Within 10 days (routine)) - Pending Review Specialty Diagnoses / Procedures Referred By Contact Referred To Contact Cardiovascular Medicine / Cardiology Diagnoses Coronary artery disease involving tlingit & haida coronary artery of tlingit & haida heart without angina pectoris Neto Méndez MD [address] [facility] [place] [address] Referral ID Status Reason Start Date Expiration Date Visits Requested Visits Authorized [id number] Pending Review Specialty Services Required 09/17/[phone] Question Answer Referral Priority Within 10 days (routine) Where should this appointment be scheduled? [facility] To which of the following clinics are you referring your patient? General Cardiology Clinic Comments preop Reason for Visit * Reason Comments Hospital Follow-Up Patient was asked ho w breathing has been since hospital discharge, he reports that it has been good of late. He is coughing up some mucus since his discharge and has gotten worse since. Legs are also weak, finds himself staying in bed a lot. Encounter Details Date Type Department Care Team (Late st Contact Info) Description 09/17/2023 11:20 AM EDT Office Visit General Internal Medicine [place] [address] [place] [address] Neto Méndez MD 200 [facility] [place] [address] Laryngeal cancer (HCC)*; Lung mass; Coronary artery disease involving tlingit & haida coronary artery of tlingit & haida heart without angina pectoris; Generalized weakness; Iron deficiency anemia, unspecified iron deficiency anemia type; Acquired hypothyroidism; Acute cough; HTN, goal below 140/90 Allergies No known active allergiesdocumented as of this encounter (statuses as of 09/18/2023) Medications Medication Sig Dispensed Refills Start Date End Date Status nitroglycerin (NITROSTAT) 0.4 MG SUBLIndications:CA D (coronary artery disease), tlingit & haida coronary artery,Chest pain,SOB (shortness of breath),Malaise and [...] for Wheezing. 360 mL 5 2 Active Sodium Chloride 0.9 % Inhalation Nebulization SolutionIndication [...] Oral Tablet (Lipitor)Indicatio ns:Coronary artery disease involving tlingit & haida coronary artery of tlingit & haida heart without angina pectoris,Dyslipide glenda, goal LDL below 70 TAKE 1 TABLET BY MOUTH EVERY DAY IN THE MORNING 90 Tablet 3 3 Active PARoxetine HCl 20 MG Oral Tablet (pAXil) TAKE 1 TABLET BY MOUTH EVERY DAY 90 Tablet 3 3 Active Metoprolol Succinate ER 25 MG Oral Tablet Extended Release 24 Hour (toPROL XL)Indications:HTN , goal below 140/90,Coronary artery disease involving tlingit & haida coronary artery of tlingit & haida heart without angina pectoris,Aortocoro nary bypass status,PAF (paroxysmal atrial fibrillation) ([facility]) Take 1 Tablet by mouth in the [...] by mouth in the morning. 4 Active amLODIPine Besylate 5 MG Oral Tablet (Norvasc)Indicatio ns:HTN, goal below 140/90 TAKE 1 TABLET BY MOUTH EVERY DAY IN THE MORNING 90 Tablet 1 4 09/17/19 Discontinu ed(Patient preference /discontin uation) predniSONE 20 MG Oral Tablet (Deltasone)Indicat ions:COPD exacerbation (HCC) TAKE 2 TABLETS BY MOUTH DAILY FOR 5 DAYS 10 Tablet 1 4 09/17/19 Discontinu ed(Medicat ion List Clean Up) Doxycycline Hyclate 100 MG Oral Tablet Delayed ReleaseIndications :COPD exacerbation (HCC) Take 1 Tablet by mouth in the morning and 1 Tablet before bedtime. - rescue kit. 14 Tablet 4 09/17/19 Discontinu ed(Medicat ion List Clean Up) Linezolid 600 MG Oral Tablet (Zyvox) Take 1 Tablet by mouth in the morning and 1 Tablet before bedtime. 4 09/17/19 Discontinu ed(Patient preference /discontin uation) documented as [...] of gout 02/05/2012 CAD (coronary artery disease), tlingit & haida coronary a rtery 01/22/2012 Other voice and [...] mRNA, LNP-s, No Pre serve, 2-Dose Series ([employer]) 03/29/2021,07/06/2020,06/15/2020 COVID-19, LNP-s, No Preserve , Evert-sucrose, Ages 12+ ([employer]) 08/29/2021 DTaP Dipth/Tet/Acell Pertussis ([employer]), Peds 09/26/2003 [...] 0 04/27/1955 - 04/27/1984 Smokeless Tobacco: Never Tobacco Cessation:Counseling Given: Not Answered Alcohol Use Standard Drinks/Week Comments Yes 7 [...] on file documented as of this encounter Last Filed Vital Signs Vital Sign Reading Time Taken Comments Blood Pressure 100/60 09/17/2023 11:42 AM EDT Pulse 64 09/17/2023 11:34 AM EDT Temperature 36.7 C (98.1 F) 09/17/2023 11:34 AM E DT Respiratory Rate 16 09/17/2023 11:34 AM EDT Oxygen Saturation 98% 09/17/2023 11:34 AM EDT Inhaled Oxygen Concentration - - Weight 92.6 kg (204 lb 1.6 oz) 09/17/2023 11:34 AM EDT Height - - Body Mass Index 28.47 07/21/2023 12:57 PM EDT documented in this encounter Functional Status Functional Status Response [...] No 12/06/2019 documented as of this encounter Progress Notes * Neto Méndez MD - 09/17/2023 11:55 AM EDT . Chief Complaint Patient presents with Hospital Follow-Up Patient was asked how breathing has been since hospital discharge, he reports that it has been goodof late. He is coughing up some mucus since his discharge and has gotten worse since. Legs are alsoweak, finds himself staying in bed a lot. SUBJECTIVE: Clinton Locke is a 83 year old male with PMH as below who presents for follow up lung mass with biopsy proven SCC. Had pet since which shows +mass and also nodes. Did see [facility] oncology this past week, has been recommended to have surgery to remove mass and dissection of neck given nodes as well as radiation. He needs to see cardiology prior. He has felt weak since the hospitalization in June-August 03 2023. He feels tired, getting out of bed less. No cp, pressure. Does have a cough, but reports breathing is good. Not using nebulizer, hasn't picked up scripts. 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) Chronic coronary artery disease Gastroesophageal reflux disease without esophagitis H/O laryngectomy Tracheostomy status ([facility]) Iron deficiency anemia Nonrheumatic aortic valve stenosis Paroxysmal atrial fibrillation ([facility]) COPD, group B, by GOLD 2017 classification ([facility]) Laryngeal cancer ([facility]) Moderate depressive disorder Current Outpatient Medications Medication Sig Dispense Refill nitroglycerin (NITROSTAT) 0.[address] 1 Tab under the tongue every 5 minutes as needed for Pain, Chest. Max dose 3 tablets in 15 minutes 25 Tab 3 Misc. Devices MISC Cool mist humidification device 1 Each 0 Misc. Devices MISC Portable suction device 1 Each 0 Misc. Devices MISC Trach care cleaning kit 1 Each 0 Misc. Devices MISC Yankauer suction tips 10 Each 5 Misc. Devices MISC 12Fr flexible suction catheters 10 Each 5 Misc. Devices MISC Inner cannulas for Shiley size 10 cuffless laryngectomy tube 10 Each 5 Misc. Devices MISC Size 10 shiley laryngectomy tube 2 Each 5 acetaminophen (TYLENOL) 500 MG Tablet Take 2 Tablets by mouth every 4 hours as needed for Fever >38C(100.5F) or Pain, Mild. Fluorouracil 5 % External Cream (Efudex) Apply to rough spots on the scalp nightly x 2-4 weeks. 40 g 0 Misc. Devices one ultra voice 1 Each 0 Sodium Chloride 0.9 % Inhalation Nebulization Solution Use as directed to clean tracheostomy 3 mL 3 Fluorouracil 5 % External Cream (Efudex) apply to left forearm twice daily for 3 weeks, then treat right forearm 40 g 1 Eliquis 5 MG Oral Tablet (Apixaban) TAKE 1 TABLET BY MOUTH TWICE A DAY 60 Tablet 5 Atorvastatin Calcium 40 MG Oral Tablet (Lipitor) TAKE 1 TABLET BY MOUTH EVERY DAY IN THE MORNING 90Tablet 3 PARoxetine HCl 20 MG Oral Tablet (pAXil) TAKE 1 TABLET BY MOUTH EVERY DAY 90 Tablet 3 Metoprolol Succinate ER 25 MG Oral Tablet Extended Release 24 Hour (toPROL XL) Take 1 Tablet by mouth in the morning. 90 Tablet 3 Omeprazole 20 MG Oral Capsule Delayed Release (PriLOSEC) Take 1 Capsule by mouth in the morning. 90Capsule 1 Ipratropium-Albuterol 0.5-2.5 (3) MG/3ML Inhalation Solution (Duoneb) Inhale 3 mL via nebulizer in the morning and 3 mL at noon and 3 mL in the evening and 3 mL before bedtime. 360 mL 3 Albuterol Sulfate (2.5 MG/3ML) 0.083% Inhalation Nebulization Solution (Proventil) Inhale 1 Vial via nebulizer in the morning and 1 Vial at noon and 1 Vial in the evening and 1 Vial before bedtime. 360 mL 1 Linezolid 600 MG Oral Tablet (Zyvox) Take 1 Tablet by mouth in the morning and 1 Tablet before bedtime. Levothyroxine Sodium 125 MCG Oral Tablet (Levoxyl) TAKE 1 TABLET BY MOUTH EVERY DAY AT LEAST 30 MINBEFORE BREAKFAST OR OTHER MEDICATION 90 Tablet 1 Clopidogrel Bisulfate 75 MG Oral Tablet (pLAVix) TAKE 1 TABLET BY MOUTH EVERY DAY 90 Tablet 1 Vitron-C 65-125 MG Oral Tablet (Iron-Vitamin C 65-125 mg per tab) Take 1 Tablet by mouth in the morning. polyethylene glycol 3350 (MIRALAX) packet Take 1 Packet by mouth daily. (Patient taking differently: Take 1 Packet by mouth daily as needed for Constipation.) 14 Each 0 Ipratropium-Albuterol 0.5-2.5 (3) MG/3ML Inhalation Solution (Duoneb) Inhale via nebulizer 3 mL every 6 hours as needed for Wheezing. (Patient not taking: Reported on 09/08/2023) 360 mL 5 Zoster Vac Recomb Adjuvanted 50 MCG/0.5ML Intramuscular Suspension Reconstituted (Shingrix) Inject 0.5 mL into a large muscle now and repeat dose in 60 to 180 days 1 Each 1 No current facility-administered medications for this visit. Review of patient's allergies indicates: No Known Allergies Health Maintenance Due Topic Date Due Alpha-1 Antitrypsin Never done Zoster Vaccines (1 of 2) Never done COVID-19 Vaccine ( season) 2022 ROS: CONSTITUTIONAL: No fevers, sweats, or chills EYE: No recent significant change in vision and No eye pain, redness, discharge EARS: No ear pain, No drainage, No tinnitus or vertigo, and No recent change in hearing PULMONARY: No recent change in breathing and feels breathing better overall as of late CARDIOVASCULAR: No chest pain, No orthopnea, No paroxysmal nocturnal dyspnea, No edema, No palpitations, and No syncope GASTROINTESTINAL: No abdominal pain, No change in bowel habits, No significant heartburn, No significant change in appetite, No nausea, vomiting, diarrhea, or constipation, No hematemesis, No blood in stools or black tarry stools, No abdominal bloating or early satiety, and No dysphagia ALL OTHER SYSTEMS NEGATIVE I reviewed social, PMH, PSH, and family history and updated where needed. 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 Employer: [employer] Tobacco Use Smoking status: Former Current packs/day: 0.00 Average packs/day: 2.0 packs/day for 30.0 years (60.0 ttl pk-yrs) Types: Cigarettes Start date: [birth year]27/1955 Quit date: 04/27/1984 Years since quittin.4 Smokeless tobacco: Never Vaping Use Vaping status: Never Used Substance and Sexual Activity Alcohol use: Yes Alcohol/week: 7.0 standard drinks of alcohol Types: 7 1.5 oz of liquor per week Comment: On occasion Drug use: No Sexual activity: Yes Partners: Female Other Topics Concern Not on file Social History Narrative 1 dog in his home. No mold. 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 Cruz f/u HTN, goal below 140/90 Hypertension Benign Hypothyroidism Hypothyroidism Laryngeal cellulitis ca Larynx cancer (HCC) 03/31/2011 Other anxiety states Pneumonia Post-nasal drip 04/21/2018 Acute condition Pre-diabetes 08/31/2019 S/P carotid endarterectomy 04/05/2018 Sinus node arrhythmia 07/09/2017 SLEEP APNEA NOS 11/14/2003 + sleep apnea- rx'd with cpap 8 cm 10/28 Past Surgical History: Procedure Laterality Date COLONOSCOPY THRU STOMA, W/BIOPSY 11/15/08 adenomatous/repeat colonoscopy in 5 yrs COLONOSCOPY, DIAGNOSTIC (RECTUM) 10/11/2014 adenomatous polyp/[facility] CORONARY ARTERIES BYPASS, TWO 1995 CABG, Vein, Two [facility] EGD, FLEXIBLE, W/BIOPSY 10/02/09 sm. hiatal hernia & path showed Barretts esophagusrepeat in 1 year ESOPHAGOSCOPY, FLEXIBLE, DIAGNOSTIC N/A 10/26/2019 ESOPHAGOSCOPY DIAGNOSTIC performed by Hayden Fleming MD at [facility] ESOPHAGOSCOPY, FLEXIBLE, DIAGNOSTIC N/A 11/23/2019 ESOPHAGOSCOPY DIAGNOSTIC performed by Hayden Fleming MD at OR [facility] INSERTION OF LENS PROSTHESIS Left 05/12/2012 cataract extraction with IOL implant and LRI left eye LARYNGOSCOPY BIOPSY W/SCOPE 07/22/2012 LARYNGOSCOPY DIRECT OPERATIVE WITH MICROSCOPE performed by Erick Gilbert MD at [facility] LARYNGOSCOPY BIOPSY W/SCOPE N/A 06/30/2014 LARYNGOSCOPY DIRECT OPERATIVE WITH MICROSCOPE performed by Erick Gilbert MD at [facility] MUSCLE-SKIN FLAP, TRUNK N/A 04/18/2019 MUSCLE MYOCUTANEOUS OR FASCIOCUTANEOUS FLAP TRUNK performed by Ramakrishna Graham DO at OR [facility] OPERATIVE LARYNGOSCOPY/BIOPSY 07/10/2011 LARYNGOSCOPY DIRECT WITH BIOPSY performed by NETO JASMINE at [facility] OPERATIVE LARYNGOSCOPY/BIOPSY 11/05/2012 LARYNGOSCOPY DIRECT WITH BIOPSY performed by Erick Gilbert MD at [facility] OPERATIVE LARYNGOSCOPY/BIOPSY N/A 03/07/2019 LARYNGOSCOPY DIRECT WITH BIOPSY performed by Hayden Fleming MD at [facility] PART REMOV LARYNX, NECK DISSECTION N/A 04/18/2019 LARYNGECTOMY SUBTOTAL SUPRAGLOTTIC WITH DISSECTION performed by Hayden Fleming MD at OR [facility] PARTIAL REMOVAL OF PHARYNX N/A 04/18/2019 LIMITED PHARYNGECTOMY performed by Hayden Fleming MD at OR [facility] RECONSTRUCTION OF THROAT Bilateral 04/18/2019 PHARYNGOPLASTY performed by Ramakrishna Graham DO at OR [facility] REMOVAL OF NECK LYMPH NODES N/A 04/18/2019 CERVICAL LYMPHADENECTOMY MODIFIED RADICAL NECK DISSECTION performed by Hayden Fleming MD at OR [facility] REMOVE EXCESS SKIN/TISSUE, FAT PAD N/A 11/23/2019 EXCISION EXCESSIVE SKIN AND SUBCUTANEOUS TISSUE SUBMENTAL performed by Hayden Fleming MD at OR [facility] REPAIR RUPTURED ROTATOR CUFF, ACUTE Right 2009 Rotator cuff repair RIGHT REPAIR WINDPIPE OPENING, SIMPLE N/A 05/21/2020 TRACHEOSTOMA REVISION SIMPLE performed by Hayden Fleming MD at OR [facility] REVISE WINDPIPE SCAR N/A 10/14/2019 REVISION TRACHEOSTOMY SCAR performed by Hayden Fleming MD at OR [facility] SKIN SPLIT GRAFT, TRUNK/ARMS/LEGS Left 04/18/2019 SPLIT GRAFT TRUNK ARM LEG 100SQ CM PLUS performed by Ramakrishna Graham DO at OR [facility] SURGERY TO INSERT SPEECH PROSTHESIS N/A 10/14/2019 CONSTRUCT TRACHEOESOPHAGEAL FISTULA SPEECH PROSTHESIS performed by Hayden Fleming MD at OR [facility] THROAT MUSCLE SURGERY N/A 01/11/2020 CRICOPHARYNGEAL MYOTOMY performed by Hayden Fleming MD at OR [facility] THROMBOENDARECTOMY W/PATCH,NECK INCISION Right 03/29/2018 [facility] Juan THROMBOENDARECTOMY W/PATCH,NECK INCISION Left 06/23/2018 [facility] Juan TRACHEAL PUNCTURE W/ ASPIRATION/INJECTION N/A 10/26/2019 TRACHEAL PUNCTURE performed by Hayden Fleming MD at OR [facility] TRACHEAL PUNCTURE W/ ASPIRATION/INJECTION N/A 11/23/2019 TRACHEAL PUNCTURE performed by Hayden Fleming MD at OR [facility] Family History Problem Relation Name Age of Onset Hypertension Mother Eye Problems Mother CRVO Glaucoma Mother Other (Natural causes) Mother age 96 Lung cancer Father Heart attack Father age 90 No Known Problems Brother Breast Cancer Sister No Known Problems Sister No Known Problems Sister Other (gout) Grandfather (Maternal) OBJECTIVE: PHYSICAL EXAM: BP 100/60 | Pulse 64 | Temp 36.7 C (98.1 F) (Tympanic) | Resp 16 | Wt 92.6 kg (204 lb 1.6 oz) |SpO2 98% | BMI 28.47 kg/m | BSA 2.15 m General: alert, healthy, and no distress Head: Normocephalic, No masses, lesions, or abnormalities Eye Exam: conjunctiva are pink and non-injected, sclera clear Ears: External ears normal, Canals clear, TM's Normal Heart: regular rate & rhythm, no murmur, no gallops, PMI non-displaced, S-1 normal, and S-2 normal Lungs: normal respiratory rate and rhythm, lungs clear to auscultation Neck: trach site clean Psych: normal affect, no flight of ideas or tangential thought, good eye contact, no pressured speech 08/19/23 pet: 1. Marked FDG uptake within the 6.4 x 5.7 cm right infraclavicular mass consistent with biopsy-proven squamous cell carcinoma. 2. Three FDG avid right level 2 and 5 lymph nodes consistent with angel spread of disease. No left cervical lymphadenopathy. 3. No evidence for metastatic disease within the abdomen or pelvis. 4. Status post laryngectomy and tracheostomy. 5. Scattered tiny pulmonary nodules measuring up to 4 mm. These are likely benign but indeterminateand can be assessed on follow-up exams to ensure stability. I reviewed last cbc iron, ferritin ASSESSMENT: C32.9 Laryngeal cancer (HCC) (primary encounter diagnosis) R91.8 Lung mass I25.10 Coronary artery disease involving tlingit & haida coronary artery of tlingit & haida heart without angina pectoris R53.1 Generalized weakness D50.9 Iron deficiency anemia, unspecified iron deficiency anemia type E03.9 Acquired hypothyroidism R05.1 Acute cough I10 HTN, goal below 140/90 PLAN: Laryngeal cancer (HCC) (Primary) Will lionel for oncology notes, treatment plan, but sounds like radiation, surgery Will get to cardiology as asking for pre-op Lung mass +SCC cancer Await oncology No pain - follow Coronary artery disease involving tlingit & haida coronary artery of tlingit & haida heart without angina pectoris - CARDIOLOGY REFERRAL OP Generalized weakness Await labs Possible from lower bp, will trial off amlodipine Check iron, cbc today to make sure no drop further Reminded fobt due, will bring in Follow Check cxr given ho cough Iron deficiency anemia, unspecified iron deficiency anemia type - Vitron-C 65-125 MG Oral Tablet (Iron-Vitamin C 65-125 mg per tab); Take 1 Tablet by mouth in the morning. - COMPREHENSIVE METABOLIC PANEL; Future; Expected date: 09/17/2023 - CBC WITH WBC DIFFERENTIAL; Future; Expected date: 09/17/2023 - CBC WITH WBC DIFFERENTIAL; Future; Expected date: 10/18/2023 - IRON SCREEN, INCLUDING TIBC; Future; Expected date: 10/18/2023 Acquired hypothyroidism - TSH; Future; Expected date: 09/17/2023 Acute cough - XR CHEST 2 VIEWS Resume nebs, they will worm picker HTN, goal below 140/90 Low today Stop amloidpine Recheck 2 weeks Await labs Follow Up: Return if symptoms worsen or fail to improve, for BP Check in 2 Weeks, Labs Today. | For: BP Check in 2 Weeks, Labs Today | Check-out note: [facility] oncology Neto Méndez MD documented in this encounter Nursing Notes * Ej Mckoy MED ASSIST - 09/17/2023 11:31 AM EDT The patient has been properly identified by confirmation of name and date of . Chief Complaint Patient presents with Hospital Follow-Up Patient was asked how breathing has been since hospital discharge, he reports that it has been goodof late. He is coughing up some mucus since his discharge and has gotten worse since. Legs are alsoweak, finds himself staying in bed a lot. He was told by that he needs to take a stress test. See encounters. documented in this encounter Miscellaneous Notes * Addendum Note - Neto Méndez MD - 09/18/2023 10:48 AM EDTAddended by: NETO MÉNDEZ on: 09/18/2023 10:48 AM Modules accepted: Orders documented in this encounter Plan of Treatment Upcoming Encounters Date Type Department Care Team (Late st Contact Info) Description 10/01/2023 1:00 PM EDT Nurse Only Ancillary [facility] [address] [facility] [place] [address] Nurse, Int Med [address] [facility] [place] [address] 12/09/2023 10:00 AM EDT Office Visit Cardiology, [facility] [address] [place] [address] Elvira Alexander PA-C [address] [place] [address] 02/17/2024 10:00 AM EDT Office Visit General Internal Medicine [facility] [address] [facility] [place] [address] Neto Méndez MD [address] [facility] [place] [address] 07/14/2024 1:45 PM EDT Office Visit Dermatology [facility] [address] [facility] [place] [address] Bonnie Sawyer MD [address] [facility] [place] [address] Pending Results Name Type Priority Associated Diagnoses Date /Time XR CHEST 2 VIEWS Medical Imaging Routine Acute cough 09/17/2023 12:07 PM EDT Scheduled Orders Name Type Priority Associated Diagnoses Orde r Schedule CBC WITH WBC DIFFERENTIAL Lab Routine Iron deficiency anemia, unspecified iron deficiency anemia type Expected: 10/18/2023 (Approximate), Expires: 09/16/2024 IRON SCREEN, INCLUDING TIBC Lab Routine Iron deficiency anemia, unspecified iron deficiency anemia type Expected: 10/18/2023 (Approximate), Expires: 09/16/2024 T4, FREE Lab Routine Acquired hypothyroidism Expected: 09/18/2023 (Approximate), Expires: 09/17/2024 Scheduled Referrals Name Type Priority Associated Diagnoses Orde r Schedule CARDIOLOGY REFERRAL OP Referral Within 10 days (routine) Coronary artery disease involving tlingit & haida coronary artery of tlingit & haida heart without angina pectoris Ordered: 09/17/2023 Health Maintenance Due Date Last Done Comments [...] this encounter Medical Devices Implanted Type Area Methods Examiner Device Identifier Shelf Expiration Date Model / Serial / Lot [employer] [id number] [id number] (150 Units) - [id number] - [id number] Implanted:Qty: 150 on 04/18/2019 by Hayden Fleming MD at OR [facility] Left: [employer] [id number] 01/25/2020 [id number] / [id number] / [id number] Indwelling Voice Prosthesis Implanted:Qty: 1 on 10/26/2019 by Hayden Fleming MD at OR [facility] N/A: Throat 08/16/2021 1616-NS / / [id number] Description:INHEALTH TECHNOL OGIES REF : IN 1616-NS (HECTOR-ALONZO) CLASSIC INDWELLING VOICE PROSTHESIS WITH INSERTION / CLEANING ACCESSORIES documented as of this encounter Results * (ABNORMAL) TSH (09/17/2023 12:07 PM EDT) Pathologist [facility] TSH 4.53(H) 0.27 - 4.20 uIU/mL 09/17/2023 8:33 PM EDT LABORATORY [facility] Blood Venous blood specimen / Unknown Venipuncture / Unknown 09/17/2023 12:07 PM EDT 09/17/2023 12:07 PM EDT Neto Méndez MD LAB BLOOD ORDERA BLES Performing Organization Address City/State/[facility] Co de Phone Number LABORATORY [facility] [address] [place] [address] * (ABNORMAL) COMPREHENSIVE METABOLIC PANEL (09/17/2023 12:07 PM EDT) [facility] BUN 14 6 - 20 mg/dL 09/17/2023 2:24 PM EDT [facility] 56- Creatinine 1.2 0.6 - 1.2 mg/dL 09/17/2023 2:24 PM EDT [facility] 56 Estimated Glomerular Filtration Rate 62 >=60 mL/min 09/17/2023 2:24 PM EDT [facility] 56- Comment:eGFR is calculated b ased on the CKD-EPI 2020 equation Sodium 138 135 - 146 mmol/L 09/17/2023 2:24 PM EDT [facility] 56- Potassium 4.2 3.5 - 5.1 mmol/L 09/17/2023 2:24 PM EDT [facility] 56- Chloride 102 98 - 107 mmol/L 09/17/2023 2:24 PM EDT [facility] 56- CO2 23 22 - 32 mmol/L 09/17/2023 2:24 PM EDT [facility] 56- Anion Gap 13 7 - 15 mmol/L 09/17/2023 2:24 PM EDT [address] Glucose 111 70 - 120 mg/dL 09/17/2023 2:24 PM [address]T [address] Albumin 3.4(L) 3.8 - 5.0 g/dL 09/17/2023 2:[address] AST 21 10 - 50 U/L 09/17/2023 2:24 PM EDT [address] Alkaline Phosphatase 76 35 - 130 U/L 09/17/2023 2:24 PM EDT [address] Bilirubin, Total 0.5 <=1.2 mg/dL 09/17/2023 2:24 PM [address]T [address] Calcium 9.2 8.4 - 10.2 mg/dL 09/17/2023 2:24 PM EDT [address] Protein 6.4 6.0 - 8.3 g/dL 09/17/2023 2:24 PM [address]T [address] ALT 10 10 - 50 U/L 09/17/2023 2:24 PM EDT [address] Blood Venous blood specimen / Unknown Venipuncture / Unknown 09/17/2023 12:07 PM EDT 09/17/2023 12:07 PM EDT Neto Méndez MD LAB BLOOD ORDERA [place] [address] [place] [address] documented in this encounter Visit Diagnoses Diagnosis Laryngeal cancer (HCC)- Primary Malignant neoplasm of larynx, unspecified site Lung mass Swelling, mass, or lump in chest Coronary artery disease involving [place] coronary artery of [place] heart without angina pectoris Generalized weakness Other malaise and fatigue Iron deficiency anemia, unspecified iron deficiency anemia type Acquired hypothyroidism Unspecified hypothyroidism Acute cough HTN, goal below 140/90 Unspecified essential hypertension documented in this encounter Advance Directives Documents on File Type Date Recorded Patient 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 Care Teams Prefitter Relationship Specialty Start Date End Date Neto Méndez MD [address] [place] [id number] PCP - General Internal Medicine 02/14/21 documented as of this encounter"
--- OUTSIDE RECORDS SUMMARY | 2023-09-21 11:04 | External Medical Summary | Summary of Care ---
Author Name Unknown Organization [facility] Address [address] [place] [address] Phone [phone] Care Team Providers Care Charity Fundraiser Name Role Phone Neto Rasheed MD Primary Care Provider + Reason for Visit * Reason Onset Date Comments FYI 09/17/2023 Encounter Details Date Type Department Care Team (Late st Contact Info) Description 09/17/2023 Telephone General Internal Medicine [facility] [place] [address] [facility] [place] [address] Neto Rasheed MD [address] [facility] [address] FY Allergies No known active allergiesdocumented as of this encounter (statuses as of 09/18/2023) Medications Medication Sig Dispensed Refills Start Date End Date Status nitroglycerin (NITROSTAT) 0.4 MG SUBLIndications:CAD (coronary artery disease), [place] coronary artery,Chest pain,SOB (shortness of breath),Malaise and [...] Oral Tablet (Lipitor)Indication s:Coronary artery disease involving [place] coronary artery of [place] heart without angina pectoris,Dyslipidem ia, goal LDL below 70 TAKE 1 TABLET BY MOUTH EVERY DAY IN THE MORNING 90 Tablet 3 02/06/2023 Active PARoxetine HCl 20 MG Oral Tablet (pAXil) TAKE 1 TABLET BY MOUTH EVERY DAY 90 Tablet 3 04/03/2023 Active Metoprolol Succinate ER 25 MG Oral Tablet Extended Release 24 Hour (toPROL XL)Indications:HTN, goal below 140/90,Coronary artery disease involving [place] coronary artery of [place] heart without angina pectoris,Aortocoron sharon bypass status,PAF [...] of gout 02/05/2012 CAD (coronary artery disease), [place] coronary a rtery 01/22/2012 Other voice and [...] mRNA, LNP-s, No Pre serve, 2-Dose Series (Franchisee Gladiator) 03/29/2021,07/06/2020,06/15/2020 COVID-19, LNP-s, No Preserve , Evert-sucrose, [...] (15 years old or older) No 12/06/19 Cognitive Status Response Date of Assessm ent Because of a physical, menta l, or emotional condition, do you have serious difficulty concentrating, remembering, or making decisions? (5 years old or older) No 12/06/2019 documented as of this encounter Miscellaneous Notes * Telephone Encounter - Tootie Knutson LPN [...] - 09/17/2023 4:58 PM EDT Lucy physicians surgeon assistant from [place]. calling patients labs for white blood cell [...] 10/01/2023 1:00 PM EDT Nurse Only Ancillary [facility] [address] [facility] [place] [address] Nurse, Int Med [address] [facility] [place] [address] 12/09/2023 10:00 AM EDT Office Visit Cardiology, [facility] [address] [place] [address] Elvira Alexander PA-C [address] [place] [address] 02/17/2024 10:00 AM EDT Office Visit General Internal Medicine [facility] [address] [facility] [place], [place] [address] Neto Rasheed MD [address] [facility] [place] [address] 07/14/2024 1:45 PM EDT Office Visit Dermatology [facility] [address] [facility] [place] [address] Bonnie Sawyer MD [address] [place] [address] Health Maintenance Due Date Last Done Comments [...] this encounter Medical Devices Implanted Type Area Ecommerce Marketing Manager Device Identifier Shelf Expiration Date Model / Serial / Lot [employer] Fenstr [id number] (150 Units) - [id number] - [id number] Implanted:Qty: 150 on 04/18/2019 by Hayden Fleming [place] [facility] [place]: [employer] [id number] 01/25/2020 [id number] / [id number] / [id number] Indwelling Voice Prosthesis Implanted:Qty: 1 on 10/26/2019 by Hayden Fleming [place] [facility] [place]/A: Throat 08/16/2021 1616-NS / / [id number] Description:INHEALTH TECHNOL OGIES REF : IN 1616-NS (HECTOR-ALONZO) CLASSIC INDWELLING VOICE PROSTHESIS WITH INSERTION / CLEANING ACCESSORIES documented as of this encounter Advance Directives Documents on File Type Date Recorded Patient 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 Care Teams Charity Fundraiser Relationship Specialty Start Date End Date Neto Rasheed MD [address] [facility] [place] [address] PCP - General Internal Medicine 02/14/21 documented as of this encounter
--- OUTSIDE RECORDS SUMMARY | 2023-09-21 11:04 | External Medical Summary ---
Author Name Unknown Address Unknown Organization K09:[facility] [place] [address] Laboratory Report Ordering Provider Test Date Status DEV LIAO 09/17/2023 12:07:17 Final Observation Date Value Abnormality Reference (Units ) Status SYNC LEUKOCYTES IN BLOOD BY AUTOMATED COUNT 09/17/2023 12:07:17 18.40 Above high normal 4.00-10.80 (K/uL) Final Segs 09/17/2023 12:07:17 84.0 Above high normal 40.0-75.0 (%) Final Lymphs % 09/17/2023 12:07:17 6.7 Below low normal 18.0-42.0 (%) Final Monos 09/17/2023 12:07:17 7.5 1.0-11.0 (%) Final Eosinophils 09/17/2023 12:07:17 1.5 0.0-6.0 (%) Final Basos 09/17/2023 12:07:17 0.3 0.0-2.0 (%) Final Absolute Segs 09/17/2023 12:07:17 15.47 Above high normal 1.80-7.70 (K/uL) Final Lymphs, absolute 09/17/2023 12:07:17 1.23 1.00-4.80 (K/ul) Final Monos, Abs 09/17/2023 12:07:17 1.38 Above high normal 0.00-1.10 (K/uL) Final Eos, Abs 09/17/2023 12:07:17 0.27 0.00-0.70 (K/uL) Final Basos, Abs 09/17/2023 12:07:17 0.05 0.00-0.20 (K/uL) Final Performing Location [place] [address]
--- OUTSIDE RECORDS SUMMARY | 2023-09-21 11:04 | External Medical Summary | Summary of Care ---
Author Name Unknown Organization [facility] Address [address] [facility] [place] [address] Phone [phone] Care Team Providers Care Grounding Engineer Name Role Phone Neto Rasheed MD Primary Care Provider + Reason for Visit * Reason Comments Hospital Follow-Up Encounter Details Date Type Department Care Team (Late st Contact Info) Description 09/08/2023 11:00 AM EDT Office Visit Cardiology, [facility] [address] [place] [id number] Elvira Alexander PA-C [address] [place] [id number] Coronary artery disease involving robinson coronary artery of robinson heart without angina pectoris*; History of bacteremia; Fatigue, unspecified type; Fever, unspecified fever cause; Cardiac pacemaker in situ; Paroxysmal atrial fibrillation (HCC); Nonrheumatic aortic valve stenosis; S/P carotid endarterectomy; PAF (paroxysmal atrial fibrillation) ([facility]) Allergies No known active allergiesdocumented as of this encounter (statuses as of 09/17/2023) Medications Medication Sig Dispensed Refills Start Date End Date Status nitroglycerin (NITROSTAT) 0.4 MG SUBLIndications:C AD (coronary artery disease), robinson coronary artery,Chest pain,SOB (shortness of breath),Malaise and fatigue Place 1 Tab under the tongue every 5 minutes as needed for Pain, Chest. Max dose 3 tablets in 15 minutes 25 Tab 3 11/09/19 19 Active Misc. Devices MISC Cool mist humidification device 1 Each 05/02/19 Active Misc. Devices MISC Portable suction device 1 Each 05/02/19 Active Misc. Devices MISC Trach care cleaning kit 1 Each 05/02/19 Active Misc. Devices MISC Yankauer suction tips 10 Each 5 05/02/19 20 Active Misc. Devices MISC 12Fr flexible suction catheters 10 Each 5 05/02/19 Active Misc. Devices MISC Inner cannulas for Shiley size 10 cuffless laryngectomy tube 10 Each 5 05/02/19 Active polyethylene glycol 3350 (MIRALAX) packet Take 1 Packet by mouth daily. 14 Each 05/02/19 Active Additional Information Patient taking differently:17 g OralDAILY PRN, Constipation, Informant: Patient, Reported on 06/02/2022 Misc. Devices MISC Size 10 shiley laryngectomy tube 2 Each 5 08/09/19 Active acetaminophen (TYLENOL) 500 MG Tablet Take 2 Tablets by mouth every 4 hours as needed for Fever >38C(100.5F) or Pain, Mild. Active Fluorouracil 5 % External Cream (Efudex)Indicatio ns:Actinic keratosis Apply to rough spots on the scalp nightly x 2-4 weeks. 40 g 05/18/19 Active Misc. Devices one ultra voice 1 Each 06/15/19 Active Ipratropium-Albut osvaldo 0.5-2.5 (3) MG/3ML Inhalation Solution (Duoneb)Indicatio ns:COPD, moderate (HCC) Inhale via nebulizer 3 mL every 6 hours as needed for Wheezing. 360 mL 5 09/25/19 Active Additional Information Patient not taking.Reported on 09/08/2023 Sodium Chloride 0.9 % Inhalation Nebulization SolutionIndicatio ns:Aspiration pneumonia of both lungs, unspecified aspiration pneumonia type, unspecified part of lung (HCC) Use as directed to clean tracheostomy 3 mL 3 10/04/19 22 Active Zoster Vac Recomb Adjuvanted 50 MCG/0.5ML Intramuscular Suspension Reconstituted (Shingrix)Indicat ions:Need for vaccination for zoster Inject 0.5 mL into a large muscle now and repeat dose in 60 to 180 days 1 Each 1 12/26/19 Active Fluorouracil 5 % External Cream (Efudex) apply to left forearm twice daily for 3 weeks, then treat right forearm 40 g 1 07/01/19 23 Active Eliquis 5 MG Oral Tablet (Apixaban) TAKE 1 TABLET BY MOUTH TWICE A DAY 60 Tablet 5 07/04/19 23 Active Atorvastatin Calcium 40 MG Oral Tablet (Lipitor)Indicati ons:Coronary artery disease involving robinson coronary artery of robinson heart without angina pectoris,Dyslipid emia, goal LDL below 70 TAKE 1 TABLET BY MOUTH EVERY DAY IN THE MORNING 90 Tablet 3 02/07/20 23 Active PARoxetine HCl 20 MG Oral Tablet (pAXil) TAKE 1 TABLET BY MOUTH EVERY DAY 90 Tablet 3 04/03/20 23 Active Metoprolol Succinate ER 25 MG Oral Tablet Extended Release 24 Hour (toPROL XL)Indications:HT N, goal below 140/90,Coronary artery disease involving robinson coronary artery of robinson heart without angina pectoris,Aortocor onary bypass status,PAF (paroxysmal atrial fibrillation) (HCC) Take 1 Tablet by mouth in the morning. 90 Tablet 3 07/07/19 24 Active Omeprazole 20 MG Oral Capsule Delayed Release (PriLOSEC)Indicat ions:Gastroesopha geal reflux disease without esophagitis Take 1 Capsule by mouth in the morning. 90 Capsule 1 07/21/19 24 Active Ipratropium-Albut osvaldo 0.5-2.5 (3) MG/3ML Inhalation Solution (Duoneb)Indicatio ns:COPD, moderate (HCC) Inhale 3 mL via nebulizer in the morning and 3 mL at noon and 3 mL in the evening and 3 mL before bedtime. 360 mL 3 08/04/19 24 Active Albuterol Sulfate (2.5 MG/3ML) 0.083% Inhalation Nebulization Solution (Proventil)Indica tions:COPD, moderate (HCC) Inhale 1 Vial via nebulizer in the morning and 1 Vial at noon and 1 Vial in the evening and 1 Vial before bedtime. 360 mL 1 08/04/19 24 Active Levothyroxine Sodium 125 MCG Oral Tablet (Levoxyl) TAKE 1 TABLET BY MOUTH EVERY DAY AT LEAST 30 MIN BEFORE BREAKFAST OR OTHER MEDICATION 90 Tablet 1 08/24/19 24 Active Clopidogrel Bisulfate 75 MG Oral Tablet (pLAVix) TAKE 1 TABLET BY MOUTH EVERY DAY 90 Tablet 1 03/09/20 23 024 Discontinued amLODIPine Besylate 5 MG Oral Tablet (Norvasc)Indicati ons:HTN, goal below 140/90 TAKE 1 TABLET BY MOUTH EVERY DAY IN THE MORNING 90 Tablet 1 07/07/19 24 024 Discontinued(Pa tient preference/disc ontinuation) predniSONE 20 MG Oral Tablet (Deltasone)Indica tions:COPD exacerbation (HCC) TAKE 2 TABLETS BY MOUTH DAILY FOR 5 DAYS 10 Tablet 1 07/07/19 24 024 Discontinued(Me dication List Clean Up) Doxycycline Hyclate 100 MG Oral Tablet Delayed ReleaseIndication s:COPD exacerbation (HCC) Take 1 Tablet by mouth in the morning and 1 Tablet before bedtime. - rescue kit. 14 Tablet 07/21/19 24 024 Discontinued(Me dication List Clean Up) Linezolid 600 MG Oral Tablet (Zyvox) Take 1 Tablet by mouth in the morning and 1 Tablet before bedtime. 08/03/19 24 024 Discontinued(Pa tient preference/disc ontinuation) documented as of this encounter (statuses as [...] of gout 02/05/2012 CAD (coronary artery disease), robinson coronary a rtery 01/22/2012 Other voice and [...] mRNA, LNP-s, No Pre serve, 2-Dose Series ([employer]) 03/29/2021,07/06/2020,06/15/2020 COVID-19, LNP-s, No Preserve , Evert-sucrose, Ages 12+ ([employer]) 08/29/2021 DTaP Dipth/Tet/Acell Pertussis (Infan[employer]), Peds 09/26/2003 [...] Sign Reading Time Taken Comments Blood Pressure 124/56 09/08/2023 11:19 AM EDT Pulse 72 09/08/2023 11:19 AM EDT Temperature - - Respiratory Rate 16 09/08/2023 11:19 AM EDT Oxygen Saturation - - Inhaled Oxygen Concentration - - Weight 93.4 kg (206 lb) 09/08/2023 11:19 AM EDT Height - - Body Mass Index 28.73 07/21/2023 12:57 PM EDT documented in this [...] as of this encounter Progress Notes * Elvira Alexander PA-C - 09/17/2023 1:06 PM EDT Addendum 09/17/2023 I was contacted by [facility] [place] Anesthesia team in regards to upcoming surgery. 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 At that time, patient had no cardiac complaints. Recent echo/JESSEE in July 2023 demonstrated preserved LVEF with moderate aortic stenosis. He was euvolemic at time of office visit and had no anginal complaints. His device interrogation in July demonstrated Appropriate function, battery longevity and no recent arrhythmias. At this time, patient is considered moderate risk for perioperative cardiac complications based on his history/comorbidities. However, at this time, no further cardiac testing is warranted. Would recommend holding Eliquis for 2 days prior to surgery and plavix for 5 days. During this time, he should take ASA 81 mg each day while off his other therapies. Elvira Alexander PA-C Department of Cardiology * Elvira Alexander PA-C - 09/17/2023 12:17 PM EDT Images from the original note were not included. Cardiology F/U: History of Present Illness: Patient is a complex 83 year old male who presents today cardiology f/u. Last clinic evaluation approx 4 months ago with the undersigned. is present today and aids with history. Patient with chronic trach and difficulty speaking/communicating. Answers by yes/no questions and assists with history. He also communicates with writing on a tablet. Since last visit, patient was hospitalized in July 2023 for sepsis/bacteremia after about 2 weeks of fevers of unknown origin. Blood cultures 1 out of 2 were positive for gram positive cocci in chains. Treated with IV antibiotics. Enterococcus faecium growth noted, repeat 3 sets of blood cultures on 07/25/2023, 07/27/2023 and 07/29/2023 were negative. Cardiology consulted and patient underwent JESSEE which was negative for vegetation on the valves or pacemaker leads. ID consulted and ongoing vanco for4 weeks recommended. PICC line attempted but line could not be placed due to pacemaker leads. 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 He was arranged to have PET scan upon discharge. Family now waiting for results. Hasappt with oncologist later this month in [place]. He was discharged on ongoing oral antibiotics.Patient reports he quit taking antibiotics after about 1-2 weeks, not finishing the course due to side effects. He presents today feeling relatively well from a cardiac perspective. He does admit to questionable fevers and night sweats over the last few weeks. No cardiac complaints. No chest pain or dyspnea. Volume status controlled. BP controlled. Taking meds as prescribed. No chest pain, shortness of breath, palpitations, dizziness, syncope or near syncope. No orthopnea,PND, or increased lower extremity edema. No fever, chills, cough, hematochezia, melena, or hemoptysis. History is complex Per prior office notes: Past medical history significant for [place] x2 in [place] [facility] [place], hypertension, dyslipidemiawith prior statin intolerance, obesity, prior tobacco abuse, hx of laryngeal cancer with chronic hoarseness, hypothyroidism, sleep apnea. Patient was admitted to [facility] in May 2011 for pneumonia and found to have mildly ischemic EKG. In July 2011 he underwent nuclear stress test which demonstrated mild reversible defect of the anterolateral and inferolateral butler with preserved LV function and EFof 55%. In absence of anginal symptoms, continued medical management was advised and preferred by the patient. Most recently in May 2017 patient diagnosed with SSS and underwent dual chamber pacemaker implantation. In February 2018 patient diagnosed with TIA. Found to have B/L carotid stenosis, worse than prior studies. He underwent right CEA in February 2018 and left CEA in May 2018. Review of Systems: See HPI for pertinent positives. All others negative, other than those noted in HPI. Patient Active Problem List Diagnosis AORTOCORONARY BYPASS STATUS(aka CABG) HISTORY OF TOBACCO USE(aka TOBACCO) Sleep apnea HTN, goal below 140/90 Acquired hypothyroidism Dyslipidemia, goal LDL below 70 Anxiety states Other voice and resonance disorders CAD (coronary artery disease), robinson coronary artery History of gout Dysphagia Bradycardia, sinus Cardiac pacemaker in situ Sinus node arrhythmia Environmental and seasonal allergies History of radiation to head and neck region Cerebrovascular disease, arteriosclerotic, post-stroke Asymptomatic bilateral carotid artery stenosis S/P carotid endarterectomy SSS (sick sinus syndrome) (HCC) Chronic coronary artery disease Gastroesophageal reflux disease without esophagitis H/O laryngectomy Tracheostomy status (HCC) Iron deficiency anemia Nonrheumatic aortic valve stenosis Paroxysmal atrial fibrillation (HCC) COPD, group B, by GOLD 2017 classification ([facility]) Laryngeal cancer (HCC) Moderate depressive disorder Past Surgical History: Procedure Laterality Date COLONOSCOPY THRU STOMA, W/BIOPSY 11/15/08 adenomatous/repeat colonoscopy in 5 yrs COLONOSCOPY, DIAGNOSTIC (RECTUM) 10/11/2014 adenomatous polyp/[facility] CORONARY ARTERIES BYPASS, TWO 1995 CABG, Vein, Two [facility] EGD, FLEXIBLE, W/BIOPSY 10/02/09 sm. hiatal hernia & path showed Barretts esophagusrepeat in 1 year ESOPHAGOSCOPY, FLEXIBLE, DIAGNOSTIC N/A 10/26/2019 ESOPHAGOSCOPY DIAGNOSTIC performed by Hayden Fleming MD at [place] [facility] ESOPHAGOSCOPY, FLEXIBLE, DIAGNOSTIC N/A 11/23/2019 ESOPHAGOSCOPY DIAGNOSTIC performed by Hayden Fleming MD at [place] [facility] INSERTION OF LENS PROSTHESIS Left 05/12/2012 cataract extraction with IOL implant and LRI left eye LARYNGOSCOPY BIOPSY W/SCOPE 07/22/2012 LARYNGOSCOPY DIRECT OPERATIVE WITH MICROSCOPE performed by Erick Gilbert MD at [place] [facility] LARYNGOSCOPY BIOPSY W/SCOPE N/A 06/30/2014 LARYNGOSCOPY DIRECT OPERATIVE WITH MICROSCOPE performed by Erick Gilbert MD at [place] [facility] MUSCLE-SKIN FLAP, TRUNK N/A 04/18/2019 MUSCLE MYOCUTANEOUS OR FASCIOCUTANEOUS FLAP TRUNK performed by Ramakrishna Graham DO at [place] [facility] OPER[facility]IVE LARYNGOSCOPY/BIOPSY 07/10/2011 LARYNGOSCOPY DIRECT WITH BIOPSY performed by NETO JASMINE at [facility]PER[facility] LARYNGOSCOPY/BIOPSY 11/05/2012 LARYNGOSCOPY DIRECT WITH BIOPSY performed by Erick Gilbert MD at [place] [facility] OPER[facility]IVE LARYNGOSCOPY/BIOPSY N/A 03/07/2019 LARYNGOSCOPY DIRECT WITH BIOPSY performed by Hayden Fleming MD at [place] [facility] PART REMOV LARYNX, NECK DISSECTION N/A 04/18/2019 LARYNGECTOMY SUBTOTAL SUPRAGLOTTIC WITH DISSECTION performed by Hayden Fleming MD at [place] [facility] PARTIAL REMOVAL OF PHARYNX N/A 04/18/2019 LIMITED PHARYNGECTOMY performed by Hayden Fleming MD at OR [facility] RECONSTRUCTION OF THROAT Bilateral 04/18/2019 PHARYNGOPLASTY performed by Ramakrishna Graham DO at OR [facility] REMOVAL OF NECK LYMPH NODES N/A 04/18/2019 CERVICAL LYMPHADENECTOMY MODIFIED RADICAL NECK DISSECTION performed by Hayden Fleming MD at [place] [facility] REMOVE EXCESS SKIN/TISSUE, FAT PAD N/A 11/23/2019 EXCISION EXCESSIVE SKIN AND SUBCUTANEOUS TISSUE SUBMENTAL performed by Hayden Fleming MD at [place] [facility] REPAIR RUPTURED ROTATOR CUFF, ACUTE Right 2010 Rotator cuff repair RIGHT REPAIR WINDPIPE OPENING, SIMPLE N/A 05/21/2020 TRACHEOSTOMA REVISION SIMPLE performed by Hayden Fleming MD at [place] [facility] REVISE WINDPIPE SCAR N/A 10/14/2019 REVISION TRACHEOSTOMY SCAR performed by Hayden Fleming MD at OR [facility] SKIN SPLIT GRAFT, TRUNK/ARMS/LEGS Left 04/18/2019 SPLIT GRAFT TRUNK ARM LEG 100SQ CM PLUS performed by Ramakrishna Graham DO at OR [facility] SURGERY TO INSERT SPEECH PROSTHESIS N/A 10/14/2019 CONSTRUCT TRACHEOESOPHAGEAL FISTULA SPEECH PROSTHESIS performed by Hayden Fleming MD at [place] [facility] THROAT MUSCLE SURGERY N/A 01/11/2020 CRICOPHARYNGEAL MYOTOMY performed by Hayden Fleming MD at OR [facility] THROMBOENDARECTOMY W/PATCH,NECK INCISION Right 03/29/2018 [facility] Juan THROMBOENDARECTOMY W/PATCH,NECK INCISION Left 06/23/2018 [facility] Juan TRACHEAL PUNCTURE W/ ASPIRATION/INJECTION N/A 10/26/2019 TRACHEAL PUNCTURE performed by Hayden Fleming MD at [place] [facility] TRACHEAL PUNCTURE W/ ASPIRATION/INJECTION N/A 11/23/2019 TRACHEAL PUNCTURE performed by Hayden Fleming MD at [place] [facility] Family History: Family History Problem Relation Name Age of Onset Hypertension Mother Eye Problems Mother CRVO Glaucoma Mother Other (Natural causes) Mother age 96 Lung cancer Father Heart attack Father age 90 No Known Problems Brother Breast Cancer Sister No Known Problems Sister No Known Problems Sister Other (gout) Grandfather (Maternal) Social History: Social History Tobacco Use Smoking status: Former Current packs/day: 0.00 Average packs/day: 2.0 packs/day for 30.0 years (60.0 ttl pk-yrs) Types: Cigarettes Start date: 04/27/1955 Quit date: 04/27/1984 Years since quittin.4 Smokeless tobacco: Never Vaping Use Vaping status: Never Used Substance Use Topics Alcohol use: Yes Alcohol/week: 7.0 standard drinks of alcohol Types: 7 1.5 oz of liquor per week Comment: On occasion Drug use: No Allergies: Review of patient's allergies indicates: No Known Allergies Medications: Current Outpatient Medications Medication Sig Dispense Refill Levothyroxine Sodium 125 MCG Oral Tablet (Levoxyl) TAKE 1 TABLET BY MOUTH EVERY DAY AT LEAST 30 MINBEFORE BREAKFAST OR OTHER MEDICATION 90 Tablet 1 Albuterol Sulfate (2.5 MG/3ML) 0.083% Inhalation Nebulization Solution (Proventil) Inhale 1 Vial via nebulizer in the morning and 1 Vial at noon and 1 Vial in the evening and 1 Vial before bedtime. 360 mL 1 Omeprazole 20 MG Oral Capsule Delayed Release (PriLOSEC) Take 1 Capsule by mouth in the morning. 90Capsule 1 Metoprolol Succinate ER 25 MG Oral Tablet Extended Release 24 Hour (toPROL XL) Take 1 Tablet by mouth in the morning. 90 Tablet 3 PARoxetine HCl 20 MG Oral Tablet (pAXil) TAKE 1 TABLET BY MOUTH EVERY DAY 90 Tablet 3 Atorvastatin Calcium 40 MG Oral Tablet (Lipitor) TAKE 1 TABLET BY MOUTH EVERY DAY IN THE MORNING 90Tablet 3 Eliquis 5 MG Oral Tablet (Apixaban) TAKE 1 TABLET BY MOUTH TWICE A DAY 60 Tablet 5 Fluorouracil 5 % External Cream (Efudex) Apply to rough spots on the scalp nightly x 2-4 weeks. 40 g 0 acetaminophen (TYLENOL) 500 MG Tablet Take 2 Tablets by mouth every 4 hours as needed for Fever >38C(100.5F) or Pain, Mild. Vitron-C 65-125 MG Oral Tablet (Iron-Vitamin C 65-125 mg per tab) Take 1 Tablet by mouth in the morning. Clopidogrel Bisulfate 75 MG Oral Tablet (pLAVix) TAKE 1 TABLET BY MOUTH EVERY DAY 90 Tablet 1 Ipratropium-Albuterol 0.5-2.5 (3) MG/3ML Inhalation Solution (Duoneb) Inhale 3 mL via nebulizer in the morning and 3 mL at noon and 3 mL in the evening and 3 mL before bedtime. 360 mL 3 Fluorouracil 5 % External Cream (Efudex) apply to left forearm twice daily for 3 weeks, then treat right forearm 40 g 1 Zoster Vac Recomb Adjuvanted 50 MCG/0.5ML Intramuscular Suspension Reconstituted (Shingrix) Inject 0.5 mL into a large muscle now and repeat dose in 60 to 180 days 1 Each 1 Sodium Chloride 0.9 % Inhalation Nebulization Solution Use as directed to clean tracheostomy 3 mL 3 Ipratropium-Albuterol 0.5-2.5 (3) MG/3ML Inhalation Solution (Duoneb) Inhale via nebulizer 3 mL every 6 hours as needed for Wheezing. (Patient not taking: Reported on 09/08/2023) 360 mL 5 Misc. Devices one ultra voice 1 Each 0 Misc. Devices MISC Size 10 shiley laryngectomy tube 2 Each 5 Misc. Devices MISC Cool mist humidification device 1 Each 0 Misc. Devices MISC Portable suction device 1 Each 0 Misc. Devices MISC Trach care cleaning kit 1 Each 0 Misc. Devices MISC Yankauer suction tips 10 Each 5 Misc. Devices MISC 12Fr flexible suction catheters 10 Each 5 Misc. Devices MISC Inner cannulas for Shiley size 10 cuffless laryngectomy tube 10 Each 5 polyethylene glycol 3350 (MIRALAX) packet Take 1 Packet by mouth daily. (Patient taking differently: Take 1 Packet by mouth daily as needed for Constipation.) 14 Each 0 nitroglycerin (NITROSTAT) 0.[address] 1 Tab under the tongue every 5 minutes as needed for Pain, Chest. Max dose 3 tablets in 15 minutes 25 Tab 3 No current facility-administered medications for this visit. OBJECTIVE/PHYSICAL EXAMINATION: BP 124/56 | Pulse 72 | Resp 16 | Wt 93.4 kg (206 lb) | BMI 28.73 kg/m | BSA 2.16 m BP Readings from Last 4 Encounters: 09/17/23 100/60 09/08/23 124/56 08/14/23 116/52 07/21/23 128/60 General: No acute distress. A+Ox3. HEENT: Normocephalic. Atraumatic. Conjunctiva and sclera clear. NECK: No carotid bruits. No JVD. Carotid upstrokes are brisk. Chest: right chest wall mass Heart: RRR. II/ systolic murmur LSB Lungs: Clear to auscultation. No wheezes, rhonchi, rales. Abdomen: Normal bowel sounds. Soft. Nontender. No masses or organomegaly. No abdominal bruits. Extremities: No edema. No clubbing or cyanosis. Pulses: radial=2/4, posterior tibial=2/4, dorsalis pedis = 2/4. NEURO: No focal deficits. PSYCH: Normal. DATA: Device interrogations reviewed from July 2023: Appropriate function and battery longevity of 6.8 years. 84 % atrial paced, less than 1% ventricular paced, 0% Afib burden. JESSEE report reviewed from July 31, 2023 at [facility]: Echo report reviewed dated July 25, 2023 Echo report reviewed dated Mar 2022: Interpretation Summary The primary indication after review was deemed appropriate and the examination was performed. Compared to last available study, there has been no interval change. Normal LV chamber size with mild concentric LVH. Normal LV systolic function without regional wall motion abnormality. Calculated LV ejection Fraction = 60% (bi-plane method of discs). Grade II diastolic dysfunction. The aortic valve has three leaflets. The aortic valve is mildly calcified. The aortic valve openingis moderately reduced. Mild to moderate aortic stenosis. There is no significant aortic regurgitation. Mild mitral regurgitation Echocardiogram report reviewed dated March 2021: Interpretation Summary The examination is adequate to evaluate the referral indication. The LV wall thickness is mildly increased (concentric). The left ventricular wall motion is normal. The qualitative LV ejection fraction is 55-59% (normal). The left ventricular diastolic function is moderately abnormal (grade II). The aortic valve is moderately calcified. Mild to moderate aortic stenosis is present. There is no significant aortic regurgitation. Mild mitral regurgitation is present. Compared to the report of the prior study dated 03/20/2020, the severity of the aortic valve stenosis has progressed to a subtle degree. Grade 2 diastolic dysfunction noted. Carotid duplex report reviewed dated September 2020: Impression: Right carotid artery duplex examination indicates evidence of less than 50% stenosis of the internal carotid artery. Left carotid artery duplex examination indicates evidence of less than 50% stenosis of the internalcarotid artery. Echo report reviewed dated 02/2020: Interpretation Summary The primary indication after review was deemed appropriate and the examination was performed. The left ventricular cavity size is normal. The LV wall thickness is mildly increased (concentric). The left ventricular wall motion is normal. The qualitative LV ejection fraction is 55-59% (normal). The aortic valve has three leaflets. The aortic valve is moderately calcified. Mild aortic valve stenosis is present. Compared to previous study dated 02/08/2019, there is no significant change. Nuclear Lexiscan report reviewed dated February 08, 2019: Lexiscan nuclear cardiac stress test negative for ischemia. Gated SPECT images reveals normal myocardial thickening and wall motion. The LV ejection fraction is calculated at 64%. 2D echocardiogram report reviewed dated February 08, 2019: Interpretation Summary The qualitative LV ejection fraction is 55-59% (normal). The LV wall thickness is mildly increased (concentric). The left ventricular wall motion is normal. The aortic valve is mildly calcified. Mild aortic valve stenosis is present. Compared to prior study of 03/10/2018, there is no significant change. Carotid duplex report reviewed dated July 2018: Impression: Right carotid artery duplex examination indicates evidence of less than 50% stenosis of the internal carotid artery. The right internal carotid endarterectomy appears patent. Left carotid artery duplex examination indicates evidence of less than 50% stenosis of the internalcarotid artery. The left internal carotid endarterectomy appears patent. 2D echo report reviewed dated 02/2018: The primary indication after review was deemed appropriate and the examination was performed. Normal LV chamber size with moderate concentric LVH. Normal LV systolic function without regional wall motion abnormality, EF 55-60%. Grade II diastolic dysfunction. The aortic valve is inadequately visualized, unable to accurately determine the number of leaflets.. The aortic valve is mildly calcified. Mild aortic valve stenosis is present. There is no significant aortic regurgitation. Lexiscan Nuclear Stress Test 07/2011: Myocardial perfusion imaging is abnormal. SPECT images demonstrate small perfusion abnormality of mild intensity in the basal anterolateral and inferolateral myocardial butler on the stress images. The defect is not present on the resting images, consistent with ischemia. The calculated left ventricular ejection fraction is 55%. The stress electrocardiogram was normal. Echocardiogram on 06/16/11 demonstrated: Mildly dilated LV chamber size with moderate concentric LVH. Normal LV systolic function, EF 60 to 65%. No segmental left ventricular wall motion abnormalities are noted. Grade 2 diastolic dysfunction. Mildly calcified aortic valve with mild aortic stenosis, no regurgitation. Moderate left atrial enlargement noted. Latest Reference Range & Units 01/05/23 09:40 Sodium 135 - 146 mmol/L 142 Potassium 3.5 - 5.1 mmol/L 4.4 Chloride 98 - 107 mmol/L 104 CO2 22 - 32 mmol/L 24 BUN 6 - 20 mg/dL 18 Creatinine 0.6 - 1.2 mg/dL 1.2 Estimated Glomerular Filtration Rate >=60 mL/min 62 Anion Gap 7 - 15 mmol/L 14 Glucose 70 - 120 mg/dL 79 Calcium 8.4 - 10.2 mg/dL 9.4 Latest Reference Range & Units 01/05/23 09:40 Triglycerides <=174 mg/dL 69 Cholesterol <200 mg/dL 165 Non-HDL Cholesterol <=159 mg/dL 100 HDL Cholesterol >39 mg/dL 65 LDL Cholesterol <=129 mg/dL 86 ASSESSMENT 83 year old male CAD S/P CABG in 1995 - Negative Nuclear stress 01/2019. No anginal complaints Moderate aortic stenosis per echo Mar 2022, stable per recent JESSEE July 2023. Diastolic dysfunction - appears euvolemic SSS S/P dual chamber pacemaker implantation. Appropriate function. PVC's - stable. Dyslipidemia - Intolerance to multiple statins and most recently Crestor. Tolerating atorvastatin. Hypertension - controlled. JAIME - no longer able to use CPAP since trach Hx of laryngeal cancer now with tracheostomy, B/L carotid CEA - stable carotid duplex September 2022 PAF - continue Eliquis Right chest wall mass, awaiting PET scan and f/u with oncology Recent bacteremia. Did not finish antibiotics. PICC line not able to be placed. PLAN: Stable cardiac symptoms. Appears euvolemic. No anginal complaints. Intermittent fever/chills noted. Repeat blood cultures. JESSEE 6 weeks ago without vegetation Device is functioning appropriately. Routine device interrogation in 3 months The patient is to continue all current medications as listed above. No changes were made at today'svisit. Follow up with oncology. CHF tools discussed including daily weights, salt/sodium/fluid restriction, and use of diuretic protocol. Patient is being evaluated in the cardiology office for ongoing care/risk management for CAD, aortic stenosis, HTN, dyslipidemia. I spent a total of 30 minutes on the date of service in preparation, delivery, and documentation ofthe care provided to Clinton Locke excluding any time spent in the performance of separately billed services. The patient agrees to the above plan and will call with additional questions or concerns. ER with all emergencies advised. Follow-up: Return in about 3 months (around 12/09/2023). | Check-out note: Blood work today - ordered by Benjamin and Dr. Rasheed 3 months Elvira Alexander PA-C Department of Cardiology This chart was completed in part utilizing Auto[employer] Speech Voice Recognition Software. Grammatical errors, random word insertions, prounoun errors, and incomplete sentences are an occasional consequence of this system due to software limitations, ambient noise, and hardware issues. Any formal questions or concerns about the content, text, or information contained within the body of this dictation should be directly addressed to the provider for clarification. documented in this encounter Nursing Notes * Inder Rivas RN - 09/08/2023 11:17 AM EDT Examination Room: room 1 Name: Clinton Locke Date of : (1940). Reason for Visit: for follow up Interim Hospitalizations: admitted to [facility] on 07/25/2023 Problems or concerns: weak and no energy Chest Pain/SOB: denies [facility] Discussed: Not applicable [facility] is a way you can talk to your provider online through e-mail. Would you like to sign up? I can activate it for you? ALREADY ACTIVE Patient was instructed to not get up on the exam table until directed and assisted by their provider; patient is to remain seated in the chair/ wheelchair/ exam table for fall prevention and safety reasons. Patient is aware to have assistance to step down off exam table with personnel. Patient voiced full comprehension of instructions. documented in this encounter Plan of Treatment Upcoming Encounters Date Type Department Care Team (Late st Contact Info) Description 09/17/2023 3:00 PM EDT Office Visit Cardiology, [facility] [address] [place] [address] Elvira Alexander PA-C [address] [place] [address] 10/01/2023 1:00 PM EDT Nurse Only Ancillary [facility] [place] [address] [place] [address] Nurse, [facility] [address] [place] [address] [place] [address] 12/09/2023 10:00 AM EDT Office Visit Cardiology [facility] [address] [place] [address] Elvira Alexander PA-C [address] [place] [address] 02/17/2024 10:00 AM EDT Office Visit General Internal Medicine [facility] [address] [facility] [place] [address] Neto Rasheed MD [address] [facility] [place] [address] 07/14/2024 1:45 PM EDT Office Visit Dermatology [facility] [address] [facility] [place] [address] Bonnie Sawyer MD [address] [facility] [place] [address] Health Maintenance Due Date Last Done Comments Alpha-1 Antitrypsin 1957 Zoster Vaccines (1 of 2) 1989 COVID-19 Vaccine (2022- season) 2022 08/29/2021, 03/29/2021, 07/06/2020, Additional history exists TSH 07/20/2024 07/21/2023, 07/27, 08/22/2021, Additional history exists GFR 08/13/2024 08/14/2023, [...] this encounter Medical Devices Implanted Type Area Smoking Pipe Repairer Device Identifier Shelf Expiration Date Model / Serial / Lot Woundmatrix Fenstr [id number] (150 Units) - [id number] - [id number] Implanted:Qty: 150 on 04/18/2019 by Hayden Fleming MD [place] [facility]: Leg Upper [employer] [id number] 01/25/2020 [id number] / [id number] / [id number] Indwelling Voice Prosthesis Implanted:Qty: 1 on 10/26/2019 by Hayden Fleming MD [place] [facility]/A: Throat 08/16/2021 1616-NS / / [id number] Description:INHEALTH TECHNOL OGIES REF : IN 1616-NS (HECTOR-ALONZO) CLASSIC INDWELLING VOICE PROSTHESIS WITH INSERTION / CLEANING ACCESSORIES documented as of this encounter Results * CULTURE, BLOOD (09/08/2023 4:33 PM EDT) Blood Culture Growth No growth 09/13/2023 10:01 PM EDT LABORAT[place] [facility] Blood Venous blood specimen / Unknown Venipuncture / Unknown 09/08/2023 4:33 PM EDT 09/08/2023 4:34 PM EDT Elvira Alexander PA-C LAB MICRO - GE NERAL ORDERABLES LABORATORY [facility] [address] [facility] [place] [address] * CULTURE, BLOOD (09/08/2023 4:25 PM EDT) Blood Culture Growth No growth 09/13/2023 10:01 PM EDT LABORATORY [facility] Blood Venous blood specimen / Unknown Venipuncture / Unknown 09/08/2023 4:25 PM EDT 09/08/2023 4:34 PM EDT Elvira Alexander PA-C LAB MICRO - GE NERAL ORDERABLES LABORATORY [facility] [address] [place] [address] documented in this encounter Visit Diagnoses Diagnosis Coronary artery disease involving robinson coronary artery of robinson heart without angina pectoris- Primary History of bacteremia Personal history of other infectious and parasitic disease Fatigue, unspecified type Fever, unspecified fever cause Cardiac pacemaker in situ Paroxysmal atrial fibrillation (HCC) Atrial fibrillation Nonrheumatic aortic valve stenosis Aortic valve disorders S/P carotid endarterectomy Other postprocedural status PAF (paroxysmal atrial fibrillation) (HCC) Atrial fibrillation documented in this encounter Advance Directives Documents on File Type Date Recorded 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 Care Teams Grounding Engineer Relationship Specialty Start Date End Date Neto Rasheed MD [address] [place] [address] PCP - General Internal Medicine 02/14/21 documented as of this encounter"
--- OUTSIDE RECORDS SUMMARY | 2023-09-21 11:04 | External Medical Summary | Summary of Care ---
Author Name Unknown Organization [facility] Address [address] [facility] [place] [address] Phone [phone] Care Team Providers Care Boiler Helper Name Role Phone Neto Rasheed MD Primary Care Provider + Reason for Referral * Evaluate & Treat - Unlimited Visits (Within 10 days (routine)) - Pending Review Specialty Diagnoses / Procedures Referred By Contact Referred To Contact Cardiovascular Medicine / Cardiology Diagnoses Coronary artery disease involving stillaguamish coronary artery of stillaguamish heart without angina pectoris Neto Rasheed MD [address] [facility] [place] [address] Referral ID Status Reason Start Date Expiration Date Visits Requested Visits Authorized [id number] Pending Review Specialty Services Required 09/17/2023 999 [...] State [place] [address] [place] [address] Neto Rasheed MD [address] [facility] [place] [address] Laryngeal cancer (HCC)*; Lung mass; Coronary artery disease involving stillaguamish coronary artery of stillaguamish heart without angina pectoris; Generalized weakness; Iron deficiency anemia, unspecified iron deficiency anemia type; Acquired hypothyroidism; Acute cough; HTN, goal below 140/90 Allergies No known active allergiesdocumented as of this encounter (statuses as of 09/17/2023) Medications Medication Sig Dispensed Refills Start Date End Date Status nitroglycerin (NITROSTAT) 0.4 MG SUBLIndications:CA D (coronary artery disease), stillaguamish coronary artery,Chest pain,SOB (shortness of breath),Malaise and [...] Oral Tablet (Lipitor)Indicatio ns:Coronary artery disease involving stillaguamish coronary artery of stillaguamish heart without angina pectoris,Dyslipide glenda, goal LDL below 70 TAKE 1 TABLET BY MOUTH EVERY DAY IN THE MORNING 90 Tablet 3 3 Active PARoxetine HCl 20 MG Oral Tablet (pAXil) TAKE 1 TABLET BY MOUTH EVERY DAY 90 Tablet 3 3 Active Metoprolol Succinate ER 25 MG Oral Tablet Extended Release 24 Hour (toPROL XL)Indications:HTN , goal below 140/90,Coronary artery disease involving stillaguamish coronary artery of stillaguamish heart without angina pectoris,Aortocoro nary bypass status,PAF (paroxysmal atrial fibrillation) ([facility]) Take 1 Tablet by mouth in the [...] of gout 02/05/2012 CAD (coronary artery disease), stillaguamish coronary a rtery 01/22/2012 Other voice and [...] mRNA, LNP-s, No Pre serve, 2-Dose Series (Critique^It) 03/29/2021,07/06/2020,06/15/2020 COVID-19, LNP-s, No Preserve , Evert-sucrose, Ages 12+ (Critique^It) 08/29/2021 DTaP Dipth/Tet/Acell Pertussis (Infanrix), Peds 09/26/2003 [...] of this encounter Progress Notes * Neto Rasheed MD - 09/17/2023 11:55 AM EDT . [...] shows +mass and also nodes. Did see [facility] oncology this past week, has been [...] and resonance disorders CAD (coronary artery disease), stillaguamish coronary artery History of gout Dysphagia Bradycardia, sinus Cardiac pacemaker in situ Sinus node arrhythmia Environmental and seasonal allergies History of radiation to head and neck region Cerebrovascular disease, arteriosclerotic, post-stroke Asymptomatic bilateral carotid artery stenosis S/P carotid endarterectomy SSS (sick sinus syndrome) ([facility]) Chronic coronary artery disease Gastroesophageal reflux disease without esophagitis H/O laryngectomy Tracheostomy status ([facility]) Iron deficiency anemia Nonrheumatic aortic valve stenosis Paroxysmal atrial fibrillation (HCC) COPD, group B, by GOLD 2017 classification ([facility]) Laryngeal cancer ([facility]) Moderate depressive disorder Current Outpatient Medications Medication [...] (1 of 2) Never done COVID-19 Vaccine (2022- season) 2022 ROS: CONSTITUTIONAL: No fevers, sweats, [...] level: Not on file Occupational History 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 hiatal hernia & path showed Barretts esophagusrepeat in 1 year ESOPHAGOSCOPY, FLEXIBLE, DIAGNOSTIC N/A 10/26/2019 ESOPHAGOSCOPY DIAGNOSTIC performed [place] Hayden Fleming [place] [facility]OPHAGOSCOPY, FLEXIBLE, DIAGNOSTIC N/A 11/23/2019 ESOPHAGOSCOPY DIAGNOSTIC performed by Hayden Fleming MD [place] [facility] [place] [place] INSERTION OF LENS PROSTHESIS Left 05/12/2012 cataract extraction with IOL implant and LRI left eye LARYNGOSCOPY BIOPSY W/SCOPE 07/22/2012 LARYNGOSCOPY DIRECT OPERATIVE WITH MICROSCOPE performed by Erick Gilbert MD at [facility] LARYNGOSCOPY BIOPSY W/SCOPE N/A 06/30/2014 LARYNGOSCOPY DIRECT OPERATIVE WITH MICROSCOPE performed by Erick Gilbert MD at [facility] MUSCLE-SKIN FLAP, TRUNK N/A 04/18/2019 MUSCLE MYOCUTANEOUS OR FASCIOCUTANEOUS FLAP TRUNK performed by Ramakrishna Graham DO [place] [facility] [place]PER[place]IVE LARYNGOSCOPY/BIOPSY 07/10/2011 LARYNGOSCOPY DIRECT WITH BIOPSY performed by NETO JASMINE at [facility] OPERATIVE LARYNGOSCOPY/BIOPSY 11/05/2012 LARYNGOSCOPY DIRECT WITH BIOPSY performed by Erick Giblert MD at [facility] OPERATIVE LARYNGOSCOPY/BIOPSY N/A 03/07/2019 LARYNGOSCOPY DIRECT WITH BIOPSY performed by Hayden Fleming MD at [facility] PART REMOV LARYNX, NECK DISSECTION N/A 04/18/2019 LARYNGECTOMY SUBTOTAL SUPRAGLOTTIC WITH DISSECTION performed by Hayden Fleming [place] [facility] [place] [place] PARTIAL REMOVAL OF PHARYNX N/A 04/18/2019 LIMITED PHARYNGECTOMY performed by Hayden Fleming MD [place] [facility] [place] [place] RECONSTRUCTION OF THROAT Bilateral 04/18/2019 PHARYNGOPLASTY performed by Ramakrishna Graham DO at [place] [facility] [place] REMOVAL OF NECK LYMPH NODES N/A 04/18/2019 CERVICAL LYMPHADENECTOMY MODIFIED RADICAL NECK DISSECTION performed by Hayden Fleming MD [place] [facility] [place] REMOVE EXCESS SKIN/TISSUE, FAT PAD N/A 11/23/2019 EXCISION EXCESSIVE SKIN AND SUBCUTANEOUS TISSUE SUBMENTAL performed by Hayden Fleming MD [place] [facility] [place] [place] REPAIR RUPTURED ROTATOR CUFF, ACUTE Right 2009 Rotator cuff repair RIGHT REPAIR WINDPIPE OPENING, SIMPLE N/A 05/21/2020 TRACHEOSTOMA REVISION SIMPLE performed by Hayden Fleming MD [place] [facility] [place] [place] REVISE WINDPIPE SCAR N/A 10/14/2019 REVISION TRACHEOSTOMY SCAR performed by Hayden Fleming MD [place] [facility] [place] [place] SKIN SPLIT GRAFT, TRUNK/ARMS/LEGS Left 04/18/2019 SPLIT GRAFT TRUNK ARM LEG 100SQ CM PLUS performed by Ramakrishna Graham DO [place] [facility] [place] [place] SURGERY TO INSERT SPEECH PROSTHESIS N/A 10/14/2019 CONSTRUCT TRACHEOESOPHAGEAL FISTULA SPEECH PROSTHESIS performed by Hayden Fleming MD [place] [facility] [place] [place] THROAT MUSCLE SURGERY N/A 01/11/2020 CRICOPHARYNGEAL MYOTOMY performed by Hayden Fleming MD at [place] [facility] [place] [place] THROMBOENDARECTOMY W/PATCH,NECK INCISION Right 03/29/2018 [facility] Juan THROMBOENDARECTOMY W/PATCH,NECK INCISION Left 06/23/2018 [facility] Juan TRACHEAL PUNCTURE W/ ASPIRATION/INJECTION N/A 10/26/2019 TRACHEAL PUNCTURE performed by Hayden Fleming MD [place] [facility] [place] TRACHEAL PUNCTURE W/ ASPIRATION/INJECTION N/A 11/23/2019 TRACHEAL PUNCTURE performed by Hayden Fleming MD [place] [facility] [place] Family History Problem Relation Name Age of [...] Lung mass I25.10 Coronary artery disease involving stillaguamish coronary artery of stillaguamish heart without angina pectoris R53.1 Generalized weakness [...] pain - follow Coronary artery disease involving stillaguamish coronary artery of stillaguamish heart without angina pectoris - CARDIOLOGY REFERRAL [...] CHEST 2 VIEWS Resume nebs, they will machine pecan picker HTN, goal below 140/90 Low today Stop amloidpine Recheck 2 weeks Await labs Follow Up: Return if symptoms worsen or fail to improve, for BP Check in 2 Weeks, Labs Today. | For: BP Check in 2 Weeks, Labs Today | Check-out note: [facility] oncology Neto Rasheed MD documented in this encounter Nursing Notes [...] test. See encounters. documented in this encounter Plan of Treatment Upcoming Encounters Date Type Department Care Team (Late st Contact Info) Description 09/17/2023 3:00 PM EDT Office Visit Cardiology, [address] [place] [address] Elvira Alexander PA-C [address] [place] [address] 10/01/2023 1:00 PM EDT Nurse Only Ancillary [facility] [address] [facility] [place] [address] Nurse, Int Med [address] [facility] [place] [address] 12/09/2023 10:00 AM EDT Office Visit Cardiology, [facility] [address] [place] [address] Elvira Alexander PA-C [address] [place] [address] 02/17/2024 10:00 AM EDT Office Visit General Internal Medicine [facility] [address] [facility] [place] [address] Neto Rasheed MD [address] [facility] [place] [address] 07/14/2024 1:45 PM EDT Office Visit Dermatology [facility] [address] [facility] [place] [address] Bonnie Sawyer MD [address] [facility] [place] [address] Pending Results Name Type Priority Associated Diagnoses Date /Time COMPREHENSIVE METABOLIC PANEL Lab Routine Iron deficiency anemia, unspecified iron deficiency anemia type 09/17/2023 12:07 PM EDT TSH Lab Routine Acquired hypothyroidism 09/17/2023 12:07 PM EDT XR CHEST 2 VIEWS Medical Imaging Routine Acute cough 09/17/2023 12:07 PM EDT Scheduled Orders Name Type Priority Associated Diagnoses Orde r Schedule COMPREHENSIVE METABOLIC PANEL Lab Routine Iron deficiency anemia, unspecified iron deficiency anemia type Expected: 09/17/2023 (Approximate), Expires: 09/16/2024 CBC WITH WBC DIFFERENTIAL Lab Routine Iron deficiency anemia, unspecified iron deficiency anemia type Expected: 10/18/2023 (Approximate), Expires: 09/16/2024 IRON SCREEN, INCLUDING TIBC Lab Routine Iron deficiency anemia, unspecified iron deficiency anemia type Expected: 10/18/2023 (Approximate), Expires: 09/16/2024 TSH Lab Routine Acquired hypothyroidism Expected: 09/17/2023 (Approximate), Expires: 09/16/2024 Scheduled Referrals Name Type Priority Associated Diagnoses Orde r Schedule CARDIOLOGY REFERRAL OP Referral Within 10 days (routine) Coronary artery disease involving stillaguamish coronary artery of stillaguamish heart without angina pectoris Ordered: 09/17/2023 Health [...] this encounter Medical Devices Implanted Type Area Rehab Therapist Device Identifier Shelf Expiration Date Model / Serial / Lot Woundmatrix Fenstr [id number] (150 Units) - [id number] - [id number] Implanted:Qty: 150 on 04/18/2019 by Hayden Fleming [place] [facility] [place]: Leg Upper [employer] [id number] 01/25/2020 [id number] / [id number] / [id number] Indwelling Voice Prosthesis Implanted:Qty: 1 on 10/26/2019 by Hayden Fleming [place] [facility] [place]/A: Throat 08/16/2021 1616-NS / / [id number] Description:INHEALTH TECHNOL OGIES REF : IN 1616-NS (HECTOR-ALONZO) CLASSIC INDWELLING VOICE PROSTHESIS WITH INSERTION / CLEANING ACCESSORIES documented as of this encounter Visit Diagnoses Diagnosis Laryngeal cancer (HCC)- Primary Malignant neoplasm of larynx, unspecified site Lung mass Swelling, mass, or lump in chest Coronary artery disease involving stillaguamish coronary artery of stillaguamish heart without angina pectoris Generalized weakness Other malaise and fatigue Iron deficiency anemia, unspecified iron deficiency anemia type Acquired hypothyroidism Unspecified hypothyroidism Acute cough HTN, goal below 140/90 Unspecified essential hypertension documented in this encounter Advance Directives Documents on File Type Date Recorded Patient Mounter Expl anation Power of Director Digital Sales 09/27/2018 POWER OF A TTORNEY * Full [...] and were consensually agreed upon. Care Teams Boiler Helper Relationship Specialty Start Date End Date Neto Rasheed MD 200 [facility], [place] [address] PCP - General Internal Medicine 02/14/21 documented as of this encounter"
--- OUTSIDE RECORDS SUMMARY | 2023-09-21 11:04 | External Medical Summary | Summary of Care ---
Author Name Unknown Organization [facility] Address [address] [facility] [address] Phone [phone] Care Team Providers Care Miniature Train Driver Name Role Phone Neto Rasheed MD Primary Care Provider + Reason for Visit * Reason Onset Date Comments Appointment 09/17/2023 Encounter Details Date Type Department Care Team (Late st Contact Info) Description 09/17/2023 Telephone General Internal Medicine [facility] [address] [place] [address] Neto Rasheed MD 200 [facility] [place] [address] Appointment Allergies No known active allergiesdocumented as of this encounter (statuses as of 09/17/2023) Medications Medication Sig Dispensed Refills Start Date End Date Status nitroglycerin (NITROSTAT) 0.4 MG SUBLIndications:CAD (coronary artery disease), [place] coronary artery,Chest pain,SOB (shortness of breath),Malaise and [...] Oral Tablet (Lipitor)Indication s:Coronary artery disease involving [place] coronary artery of [place] heart without angina pectoris,Dyslipidem ia, goal LDL below 70 TAKE 1 TABLET BY MOUTH EVERY DAY IN THE MORNING 90 Tablet 3 02/06/2023 Active PARoxetine HCl 20 MG Oral Tablet (pAXil) TAKE 1 TABLET BY MOUTH EVERY DAY 90 Tablet 3 04/03/2023 Active Metoprolol Succinate ER 25 MG Oral Tablet Extended Release 24 Hour (toPROL XL)Indications:HTN, goal below 140/90,Coronary artery disease involving [place] coronary artery of [place] heart without angina pectoris,Aortocoron sharon bypass status,PAF [...] of gout 02/05/2012 CAD (coronary artery disease), [place] coronary a rtery 01/22/2012 Other voice and [...] mRNA, LNP-s, No Pre serve, 2-Dose Series (tapviva) 03/29/2021,07/06/2020,06/15/2020 COVID-19, LNP-s, No Preserve , Evert-sucrose, [...] encounter Miscellaneous Notes * Telephone Encounter - Andrew Gutierrez OSA - 09/17/2023 12:04 PM EDT Called , is set up for a return appt from today that was open at: RETURN CARDIOLOGY at 3:00 PM (30 min)Arrive by 2:45 PM August Appointment Provider:Elvira Alexander PA-C in CARDIOLOGY * Telephone Encounter - Nikita Knutson OSA - 09/17/2023 11:55 AM EDT Patient needs an appointment with Cardiology (Elvira Alexander) ROLF per provider. Patient has an appointment in November but needs sooner documented in this encounter Plan of Treatment Upcoming Encounters Date Type Department Care Team (Late st Contact Info) Description 09/17/2023 3:00 PM EDT Office Visit Cardiology, [facility] [address] [place] [address] Elvira Alexander PA-C [address] [place] [address] 10/01/2023 1:00 PM EDT Nurse Only Ancillary [facility] [address] [facility] [place] [address] Nurse, Int Med [address] [facility] [place] [address] 12/09/2023 10:00 AM EDT Office Visit Cardiology [facility] [address] [place] [address] Elvira Alexander PA-C [address] [place] [address] 02/17/2024 10:00 AM EDT Office Visit General Internal Medicine [facility] [address] [facility] [place] [address] Neto Rasheed MD [address] [facility] [place] [address] 07/14/2024 1:45 PM EDT Office Visit Dermatology [facility] [place] [address] [facility] [place] [address] Bonnie Sawyer MD [address] [facility] [place] [address] Health Maintenance Due Date Last Done Comments Alpha-1 Antitrypsin 1957 Zoster Vaccines (1 of 2) 1989 COVID-19 Vaccine (2022- season) 2022 08/29/2021, 03/29/2021, 07/06/2020, Additional history exists TSH 07/20/2024 07/21/2023, /2 09/2022, 08/22/2021, Additional history exists GFR 08/13/2024 [...] this encounter Medical Devices Implanted Type Area Foreman/Pile Driving And Erection Device Identifier Shelf Expiration Date Model / Serial / Lot Woundmatrix Fenstr [id number] (150 Units) - [id number] - [id number] Implanted:Qty: 150 on 04/18/2019 by Hayden Fleming MD at OR [facility] Left: Leg Upper [employer] [id number] 01/25/2020 [id number] / [id number] / [id number] Indwelling Voice Prosthesis Implanted:Qty: 1 on 10/26/2019 by Hayden Fleming MD at OR [facility] N/A: Throat 08/16/2021 1616-NS / / [id number] Description:INHEALTH TECHNOL OGIES REF : IN 1616-NS (HECTOR-ALONZO) CLASSIC INDWELLING VOICE PROSTHESIS WITH INSERTION / CLEANING ACCESSORIES documented as of this encounter Advance Directives Documents on File Type Date Recorded Patient Mold Puller Expl anation Power of Game Designer/Creative Director 09/27/2018 POWER OF A TTORNEY * Full [...] and were consensually agreed upon. Care Teams Miniature Train Driver Relationship Specialty Start Date End Date Neto Rasheed MD [address] [facility] [place] [address] PCP - General Internal Medicine 02/14/21 documented as of this encounter
--- OUTSIDE RECORDS SUMMARY | 2023-09-21 11:04 | External Medical Summary | Summary of Care ---
Author Name Unknown Organization [facility] Address [address] [facility] [place] [address] Phone [phone] Care Team Providers Care Popcorn Attendant Name Role Phone Neto Rasheed MD Primary Care Provider + Reason for Visit * Reason Comments Hospital Follow-Up Encounter Details Date Type Department Care Team (Late st Contact Info) Description 09/08/2023 11:00 AM EDT Office Visit Cardiology, [facility] [address] [place] [address] Elvira Alexander PA-C [address] [place] [address] Coronary artery disease involving [place] coronary artery of [place] heart without angina pectoris*; History of bacteremia; Fatigue, unspecified type; Fever, unspecified fever cause; Cardiac pacemaker in situ; Paroxysmal atrial fibrillation (HCC); Nonrheumatic aortic valve stenosis; S/P carotid endarterectomy; PAF (paroxysmal atrial fibrillation) ([facility]) Allergies No known active allergiesdocumented as of this encounter (statuses as of 09/17/2023) Medications Medication Sig Dispensed Refills Start Date End Date Status nitroglycerin (NITROSTAT) 0.4 MG SUBLIndications:C AD (coronary artery disease), [place] coronary artery,Chest pain,SOB (shortness of breath),Malaise and [...] Oral Tablet (Lipitor)Indicati ons:Coronary artery disease involving [place] coronary artery of [place] heart without angina pectoris,Dyslipid emia, goal LDL [...] N, goal below 140/90,Coronary artery disease involving [place] coronary artery of [place] heart without angina pectoris,Aortocor onary bypass status,PAF [...] of gout 02/05/2012 CAD (coronary artery disease), [place] coronary a rtery 01/22/2012 Other voice and [...] mRNA, LNP-s, No Pre serve, 2-Dose Series (Sookasa) 03/29/2021,07/06/2020,06/15/2020 COVID-19, LNP-s, No Preserve , Evert-sucrose, Ages 12+ (Sookasa) 08/29/2021 DTaP Dipth/Tet/Acell Pertussis (Infanrix), Peds 09/26/2003 [...] EDT Addendum 09/17/2023 I was contacted by [facility]esthesia team in regards to upcoming surgery. [...] Hasappt with oncologist later this month in [place]. He was discharged on ongoing oral antibiotics.Patient [...] significant for CABG x2 in 1995 at [facility] in [place], hypertension, dyslipidemiawith prior statin intolerance, obesity, prior tobacco abuse, hx of laryngeal cancer with chronic hoarseness, hypothyroidism, sleep apnea. Patient was admitted to [facility] in May 2011 for pneumonia and [...] and resonance disorders CAD (coronary artery disease), [place] coronary artery History of gout Dysphagia Bradycardia, [...] COPD, group B, by GOLD 2017 classification ([facility]) Laryngeal cancer (HCC) Moderate depressive disorder Past Surgical History: Procedure Laterality Date COLONOSCOPY THRU STOMA, W/BIOPSY 11/15/08 adenomatous/repeat colonoscopy in 5 yrs COLONOSCOPY, DIAGNOSTIC (RECTUM) 10/11/2014 adenomatous polyp/[facility] CORONARY ARTERIES BYPASS, TWO 1995 CABG, Vein, Two [facility] EGD, FLEXIBLE, W/BIOPSY 10/02/09 sm. hiatal hernia & path showed Barretts esophagusrepeat in 1 year ESOPHAGOSCOPY, FLEXIBLE, DIAGNOSTIC N/A 10/26/2019 ESOPHAGOSCOPY DIAGNOSTIC performed by Hayden Fleming MD at OR [facility] ESOPHAGOSCOPY, FLEXIBLE, DIAGNOSTIC N/A 11/23/2019 ESOPHAGOSCOPY DIAGNOSTIC performed by Hayden Fleming MD at OR [facility] INSERTION OF LENS PROSTHESIS Left 05/12/2012 cataract extraction with IOL implant and LRI left eye LARYNGOSCOPY BIOPSY W/SCOPE 07/22/2012 LARYNGOSCOPY DIRECT OPERATIVE WITH MICROSCOPE performed by Erick Gilbert MD at OR [facility] LARYNGOSCOPY BIOPSY W/SCOPE N/A 06/30/2014 LARYNGOSCOPY DIRECT OPERATIVE WITH MICROSCOPE performed by Erick Gilbert MD at OR [facility] MUSCLE-SKIN FLAP, TRUNK N/A 04/18/2019 MUSCLE MYOCUTANEOUS OR FASCIOCUTANEOUS FLAP TRUNK performed by Ramakrishna Graham DO at OR [facility] OPERATIVE LARYNGOSCOPY/BIOPSY 07/10/2011 LARYNGOSCOPY DIRECT WITH BIOPSY performed by NETO JASMINE at [facility] OPERATIVE LARYNGOSCOPY/BIOPSY 11/05/2012 LARYNGOSCOPY DIRECT WITH BIOPSY performed by rEick Gilbert MD at OR [facility] OPERATIVE LARYNGOSCOPY/BIOPSY N/A 03/07/2019 LARYNGOSCOPY DIRECT WITH BIOPSY performed by Hayden Fleming MD at OR [facility] PART REMOV LARYNX, NECK DISSECTION N/A 04/18/2019 LARYNGECTOMY SUBTOTAL SUPRAGLOTTIC WITH DISSECTION performed by Hayden Fleming MD at OR [facility] PARTIAL REMOVAL OF PHARYNX N/A 04/18/2019 LIMITED PHARYNGECTOMY performed by Hayden Fleming MD at OR [facility] RECONSTRUCTION OF THROAT Bilateral 04/18/2019 PHARYNGOPLASTY performed by Ramakrishna Graham DO at OR [facility] REMOVAL OF NECK LYMPH NODES N/A 04/18/2019 CERVICAL LYMPHADENECTOMY MODIFIED RADICAL NECK DISSECTION performed by Hayden Fleming MD at OR [facility] REMOVE EXCESS SKIN/TISSUE, FAT PAD N/A 11/23/2019 EXCISION EXCESSIVE SKIN AND SUBCUTANEOUS TISSUE SUBMENTAL performed by Hayden Fleming MD at OR [facility] REPAIR RUPTURED ROTATOR CUFF, ACUTE Right 2010 Rotator cuff repair RIGHT REPAIR WINDPIPE OPENING, SIMPLE N/A 05/21/2020 TRACHEOSTOMA REVISION SIMPLE performed by Hayden Fleming MD at OR [facility] REVISE WINDPIPE SCAR N/A 10/14/2019 REVISION TRACHEOSTOMY SCAR performed by Hayden Fleming MD at OR [facility] SKIN SPLIT GRAFT, TRUNK/ARMS/LEGS Left 04/18/2019 SPLIT GRAFT TRUNK ARM LEG 100SQ CM PLUS performed by Ramakrishna Graham DO at OR [facility] SURGERY TO INSERT SPEECH PROSTHESIS N/A 10/14/2019 CONSTRUCT TRACHEOESOPHAGEAL FISTULA SPEECH PROSTHESIS performed by Hayden Fleming MD at OR [facility] THROAT MUSCLE SURGERY N/A 01/11/2020 CRICOPHARYNGEAL MYOTOMY performed by Hayden Fleming MD at OR [facility] THROMBOENDARECTOMY W/PATCH,NECK INCISION Right 03/29/2018 [facility] Juan THROMBOENDARECTOMY W/PATCH,NECK INCISION Left 06/23/2018 [facility] Juan TRACHEAL PUNCTURE W/ ASPIRATION/INJECTION N/A 10/26/2019 TRACHEAL PUNCTURE performed by Hayden Fleming MD at OR [facility] TRACHEAL PUNCTURE W/ ASPIRATION/INJECTION N/A 11/23/2019 TRACHEAL PUNCTURE performed by Hayden Fleming MD at OR [facility] Family History: Family History Problem Relation Name [...] report reviewed from July 31, 2023 at [facility]: Echo report reviewed dated July 25, [...] This chart was completed in part utilizing [employer] Speech Voice Recognition Software. Grammatical errors, random [...] for follow up Interim Hospitalizations: admitted to [facility] on 07/25/2023 Problems or concerns: weak [...] 09/17/2023 3:00 PM EDT Office Visit Cardiology, [facility] [address] [place] [address] Elvira Alexander PA-C [address] [place] [address] 10/01/2023 1:00 PM EDT Nurse Only Ancillary [facility] [place] [address] [place] [address] Nurse, [facility] [address] [place] [address] 12/09/2023 10:00 AM EDT Office Visit Cardiology [facility] [address] [place] [address] Elvira Alexander PA-C [address] [place] [address] 02/17/2024 10:00 AM EDT Office Visit General Internal Medicine [facility] [address] [facility] [place] [address] Neto Rasheed MD [address] [facility] [place] [address] 07/14/2024 1:45 PM EDT Office Visit Dermatology [facility] [address] [facility] [place] [address] Bonnie Sawyer MD [address] [facility] [place] [address] Health Maintenance Due Date Last Done Comments [...] this encounter Medical Devices Implanted Type Area Casing Trimmer Device Identifier Shelf Expiration Date Model / Serial / Lot Woundmatrix Fenstr [id number] (150 Units) - [id number] - [id number] Implanted:Qty: 150 on 04/18/2019 by Hayden Fleming MD at OR [facility] Left: Leg Upper [employer] [id number] 01/25/2020 [id number] / [id number] / [id number] Indwelling Voice Prosthesis Implanted:Qty: 1 on 10/26/2019 by Hayden Fleming MD at OR [facility] N/A: Throat 08/16/2021 1616-NS / / [id number] Description:INHEALTH TECHNOL OGIES REF : IN 1616-NS (HECTOR-ALONZO) CLASSIC INDWELLING VOICE PROSTHESIS WITH INSERTION / CLEANING ACCESSORIES documented as of this encounter Results * CULTURE, BLOOD (09/08/2023 4:33 PM EDT) Blood Culture Growth No growth 09/13/2023 10:01 PM EDT LABORATORY [facility] Blood Venous blood specimen / Unknown Venipuncture / Unknown 09/08/2023 4:33 PM EDT 09/08/2023 4:34 PM EDT Elvira Alexander PA-C LAB MICRO - GE NERAL ORDERABLES LABORATORY [facility] [address] [facility] [place] [address] * CULTURE, BLOOD (09/08/2023 4:25 PM EDT) Blood Culture Growth No growth 09/13/2023 10:01 PM EDT LABORATORY [facility] Blood Venous blood specimen / Unknown Venipuncture / Unknown 09/08/2023 4:25 PM EDT 09/08/2023 4:34 PM EDT Elvira Alexander PA-C LAB MICRO - GE NERAL ORDERABLES LABORATORY [facility] [address] [place] [address] documented in this encounter Visit Diagnoses Diagnosis Coronary artery disease involving [place] coronary artery of [place] heart without angina pectoris- Primary History of [...] Documents on File Type Date Recorded Patient Title Lawyer Expl anation Power of Printer Apprentice 09/27/2018 POWER OF A TTORNEY * Full [...] and were consensually agreed upon. Care Teams Popcorn Attendant Relationship Specialty Start Date End Date Neto Rasheed MD [address] [facility] [place] [address] PCP - General Internal Medicine 02/14/21 documented as of this encounter"
--- OUTSIDE RECORDS SUMMARY | 2023-09-21 11:04 | External Medical Summary | Summary of Care ---
Author Name Unknown Organization [facility] Address [address] [address] Phone [phone] Care Team Providers Care Blender Laborer Name Role Phone Neto Rasheed MD Primary Care Provider + Reason for Referral * Precert (Within 10 days (routine)) - Pending Review Specialty Diagnoses / Procedures Referred By Contac t Referred To Contact Radiology Diagnoses Paroxysmal atrial fibrillation (HCC) HTN, goal below 140/90 Nonrheumatic aortic valve stenosis Preoperative cardiovascular examination Fatigue, unspecified type Procedures NM MYOCARD PERF IMG SPECT MULT STUDIES WITH PHARM Elvira Leal PA-C [address] [place] [address] Referral ID Status Reason Start Date Expiration Date Visits Requested Visits Authorized [id number] Pending Review Precert 09/17/[phone] Reason for Visit * Reason Comments Follow Up * Evaluate & Treat - Unlimited Visits (Within 30 days (routine)) - Pending Review Specialty Diagnoses / Procedures Referred By Contact Referred To Contact Cardiovascular Medicine / Cardiology Diagnoses Nonrheumatic aortic valve stenosis Neto Rasheed MD [address] [place] [id number] Referral ID Status Reason Start Date Expiration Date Visits Requested Visits Authorized [id number] Pending Review Specialty Services Required 07/23/[phone] Encounter Details Date Type Department Care Team (Latest Contact Info) Description 09/17/2023 3:00 PM EDT Office Visit Cardiology, [facility] [address] [place] [address] Elvira Alexander PA-C [address] [place] [address] Preoperative cardiovascular examination*; Paroxysmal atrial fibrillation (HCC); HTN, goal below 140/90; Nonrheumatic aortic valve stenosis; Fatigue, unspecified type; Cardiac pacemaker in situ; Coronary artery disease involving gakona coronary artery of gakona heart without angina pectoris; S/P carotid endarterectomy; Dyslipidemia, goal LDL below 70 Allergies No known active allergiesdocumented as of this encounter (statuses as of 09/17/2023) Medications Medication Sig Dispensed Refills Start Date End Date Status nitroglycerin (NITROSTAT) 0.4 MG SUBLIndications:CAD (coronary artery disease), gakona coronary artery,Chest pain,SOB (shortness of breath),Malaise and [...] Oral Tablet (Lipitor)Indication s:Coronary artery disease involving gakona coronary artery of gakona heart without angina pectoris,Dyslipidem ia, goal LDL below 70 TAKE 1 TABLET BY MOUTH EVERY DAY IN THE MORNING 90 Tablet 3 02/06/2023 Active PARoxetine HCl 20 MG Oral Tablet (pAXil) TAKE 1 TABLET BY MOUTH EVERY DAY 90 Tablet 3 04/03/2023 Active Metoprolol Succinate ER 25 MG Oral Tablet Extended Release 24 Hour (toPROL XL)Indications:HTN, goal below 140/90,Coronary artery disease involving gakona coronary artery of gakona heart without angina pectoris,Aortocoron sharon bypass status,PAF [...] of gout 02/05/2012 CAD (coronary artery disease), gakona coronary a rtery 01/22/2012 Other voice and [...] mRNA, LNP-s, No Pre serve, 2-Dose Series (Novonics) 03/29/2021,07/06/2020,06/15/2020 COVID-19, LNP-s, No Preserve , Evert-sucrose, [...] Sign Reading Time Taken Comments Blood Pressure 128/74 09/17/2023 3:02 PM EDT Pulse 80 09/17/2023 3:02 PM EDT Temperature - - Respiratory Rate - - Oxygen Saturation 94% 09/17/2023 3:02 PM EDT Inhaled Oxygen Concentration - - Weight 93.4 kg (206 lb) 09/17/2023 3:02 PM EDT Height - - Body Mass Index [...] Notes * Elvira Alexander PA-C - 09/17/2023 3:36 PM EDT Images from the original note were not included. 09/17/2023 Cardiology F/U and Preoperative Evaluation: History of Present Illness: Patient is a complex 83 year old male who presents today for close cardiology f/u. Last clinic evaluation approx 2 weeks ago with the undersigned. is present today and aids with history. Patient with chronic trach and difficulty speaking/communicating. Answers by yes/no questions and assists with history. He also communicates with writing on a tablet. Patient was hospitalized in July 2023 for sepsis/bacteremia [...] pacemaker leads. ID consulted and ongoing vanco for 4 weeks recommended. PICC line attempted but line could not be placed due to pacemaker leads. 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 Hewas arranged to have PET scan upon discharge. PET scan revealed right infraclavicular mass consistent with squamous cell carcinoma. +Lymph nodes. Since last visit he saw surgical team at [facility] with right neck and right anterior chest wall dissection and removal of mass. Preop appt was requested and appt was scheduled today. His BP was low this morning and amlodipine was stopped by PCP. BP improved this afternoon. Patient has ongoing fatigue and weakness since hospitalization. This is unchanged. He denies acute cardiac complaints. No chest pain or worsening SOB. Ongoing cough and +mucous from trach noted. Had chest xray today. Repeat blood cultures were negative. Ongoing anemia and elevated WBC noted. No chest pain, shortness of breath, palpitations, dizziness, syncope or near syncope. No orthopnea,PND, or increased lower extremity edema. No fever, chills, cough, hematochezia, melena, or hemoptysis. History is complex Per prior office notes: Past medical history significant for CAB[place] x2 [place] [address] [facility] [place], hypertension, dyslipidemiawith prior statin intolerance, obesity, prior tobacco abuse, hx of laryngeal cancer with chronic hoarseness, hypothyroidism, sleep apnea. Patient was admitted to [facility] in May 2011 for pneumonia and found [...] and resonance disorders CAD (coronary artery disease), gakona coronary artery History of gout Dysphagia Bradycardia, [...] COPD, group B, by GOLD 2017 classification (HCC) Laryngeal cancer (HCC) Moderate depressive disorder Past Surgical History: Procedure Laterality Date COLONOSCOPY THRU STOMA, W/BIOPSY 11/15/08 adenomatous/repeat colonoscopy in 5 yrs COLONOSCOPY, DIAGNOSTIC (RECTUM) 10/11/2014 adenomatous polyp/[facility] CORONARY ARTERIES BYPASS, TWO 1995 CABG, Vein, Two [facility] EGD, FLEXIBLE, W/BIOPSY 10/02/09 sm. hiatal hernia & path showed Barretts esophagusrepeat in 1 year ESOPHAGOSCOPY, FLEXIBLE, DIAGNOSTIC N/A 10/26/2019 ESOPHAGOSCOPY DIAGNOSTIC performed by Hayden Fleming MD at [facility] ESOPHAGOSCOPY, FLEXIBLE, DIAGNOSTIC N/A 11/23/2019 ESOPHAGOSCOPY DIAGNOSTIC performed by Hayden Fleming MD at [facility] INSERTION OF LENS PROSTHESIS Left 05/12/2012 cataract extraction with IOL implant and LRI left eye LARYNGOSCOPY BIOPSY W/SCOPE 07/22/2012 LARYNGOSCOPY DIRECT OPERATIVE WITH MICROSCOPE performed by Erick Gilbert MD at OR [facility] LARYNGOSCOPY BIOPSY W/SCOPE N/A 06/30/2014 LARYNGOSCOPY DIRECT OPERATIVE WITH MICROSCOPE performed by Erick Gilbert MD at [facility] MUSCLE-SKIN FLAP, TRUNK N/A 04/18/2019 MUSCLE MYOCUTANEOUS OR FASCIOCUTANEOUS FLAP TRUNK performed by Ramakrishna Graham DO at OR [facility] OPERATIVE LARYNGOSCOPY/BIOPSY 07/10/2011 LARYNGOSCOPY DIRECT WITH BIOPSY performed by NETO JASMINE at OR [facility] OPERATIVE LARYNGOSCOPY/BIOPSY 11/05/2012 LARYNGOSCOPY DIRECT WITH BIOPSY performed by Erick Gilbert MD at OR [facility] OPERATIVE LARYNGOSCOPY/BIOPSY N/A 03/07/2019 LARYNGOSCOPY DIRECT WITH BIOPSY performed by Hayden Fleming MD at [facility] PART REMOV LARYNX, NECK DISSECTION N/A 04/18/2019 LARYNGECTOMY SUBTOTAL SUPRAGLOTTIC WITH DISSECTION performed by Hayden Flmeing MD at OR [facility] PARTIAL REMOVAL OF PHARYNX N/A 04/18/2019 LIMITED PHARYNGECTOMY performed by Hayden Fleming MD at OR [facility] RECONSTRUCTION OF THROAT Bilateral 04/18/2019 PHARYNGOPLASTY performed by Ramakrishna Graham DO at OR [facility] REMOVAL OF NECK LYMPH NODES N/A 04/18/2019 CERVICAL LYMPHADENECTOMY MODIFIED RADICAL NECK DISSECTION performed by Hayden Fleming MD at [facility] REMOVE EXCESS SKIN/TISSUE, FAT PAD N/A 11/23/2019 EXCISION EXCESSIVE SKIN AND SUBCUTANEOUS TISSUE SUBMENTAL performed by Hayden Fleming MD at OR [facility] REPAIR RUPTURED ROTATOR CUFF, ACUTE Right 2010 Rotator cuff repair RIGHT REPAIR WINDPIPE OPENING, SIMPLE N/A 05/21/2020 TRACHEOSTOMA REVISION SIMPLE performed by Hayden Fleming MD at OR [facility] REVISE WINDPIPE SCAR N/A 10/14/2019 REVISION TRACHEOSTOMY SCAR performed by Hayden Fleming MD at OR [facility] SKIN SPLIT GRAFT, TRUNK/ARMS/LEGS Left 04/18/2019 SPLIT GRAFT TRUNK ARM LEG 100SQ CM PLUS performed by Ramakrishna Graham DO at OR [facility] SURGERY TO INSERT SPEECH PROSTHESIS N/A 10/14/2019 CONSTRUCT TRACHEOESOPHAGEAL FISTULA SPEECH PROSTHESIS performed by Hayden Fleming MD at OR [facility] THROAT MUSCLE SURGERY N/A 01/11/2020 CRICOPHARYNGEAL MYOTOMY performed by Hayden Fleming MD at [facility] THROMBOENDARECTOMY W/PATCH,NECK INCISION Right 03/29/2018 [facility] Juan THROMBOENDARECTOMY W/PATCH,NECK INCISION Left 06/23/2018 [facility] Juan TRACHEAL PUNCTURE W/ ASPIRATION/INJECTION N/A 10/26/2019 TRACHEAL PUNCTURE performed by Hayden Fleming MD at [facility] TRACHEAL PUNCTURE W/ ASPIRATION/INJECTION N/A 11/23/2019 TRACHEAL PUNCTURE performed by Hayden Fleming MD at [facility] Family History: Family History Problem Relation Name [...] Current Outpatient Medications Medication Sig Dispense Refill Vitron-C 65-125 MG Oral Tablet (Iron-Vitamin C 65-125 mg per tab) Take 1 Tablet by mouth in the morning. Clopidogrel Bisulfate 75 MG Oral Tablet (pLAVix) TAKE 1 TABLET BY MOUTH EVERY DAY 90 Tablet 1 Levothyroxine Sodium 125 MCG Oral Tablet (Levoxyl) TAKE 1 TABLET BY MOUTH EVERY DAY AT LEAST 30 MINBEFORE BREAKFAST OR OTHER MEDICATION 90 Tablet 1 Albuterol Sulfate (2.5 MG/3ML) 0.083% Inhalation Nebulization Solution (Proventil) Inhale 1 Vial via nebulizer in the morning and 1 Vial at noon and 1 Vial in the evening and 1 Vial before bedtime. 360 mL 1 Ipratropium-Albuterol 0.5-2.5 (3) MG/3ML Inhalation Solution (Duoneb) Inhale 3 mL via nebulizer in the morning and 3 mL at noon and 3 mL in the evening and 3 mL before bedtime. 360 mL 3 Omeprazole 20 MG Oral Capsule Delayed [...] 5 Fluorouracil 5 % External Cream (Efudex) apply [...] as needed for Wheezing. 360 mL 5 Misc. Devices one ultra voice 1 Each 0 Fluorouracil 5 % External Cream (Efudex) Apply to rough spots on the scalp nightly x 2-4 weeks. 40 g 0 acetaminophen (TYLENOL) 500 MG Tablet Take 2 Tablets by mouth every 4 hours as needed for Fever >38C(100.5F) or Pain, Mild. Misc. Devices MISC Size 10 shiley laryngectomy [...] medications for this visit. OBJECTIVE/PHYSICAL EXAMINATION: BP 128/74 | Pulse 80 | Wt 93.4 kg (206 lb) | SpO2 94% | BMI 28.73 kg/m | BSA 2.16 m BP Readings from Last 4 Encounters: 09/17/23 128/74 09/17/23 100/60 09/08/23 124/56 08/14/23 116/52 General: No acute distress. A+Ox3. HEENT: Normocephalic. [...] than 1% ventricular paced, 0% Afib burden. EKG reviewed from July 25, 2023 at [facility]: Atrial paced rhythm No acute changes JESSEE report reviewed from July 31, 2023 at [facility]: Echo report reviewed dated July 25, 2023 Carotid duplex report reviewed dated Feb 2023: Right carotid artery duplex examination indicates evidence of less than 50% stenosis of the internal carotid artery. Left carotid artery duplex examination indicates evidence of less than 50% stenosis of the internalcarotid artery. Echo report reviewed dated Mar 2022: Interpretation [...] is 55%. The stress electrocardiogram was normal. ASSESSMENT 83 year old male Preop removal of right chest wall mass - per notes from [facility] - right neck dissection and anterior chest wall resection required. No date set. Per patient/notes, stress testing requested CAD S/P CABG in 1995 - Negative [...] PAF - continue Eliquis Right chest wall mass Recent bacteremia. Did not finish antibiotics. PICC line not able to be placed. PLAN: Stable cardiac symptoms. Appears euvolemic. Per patient/ and notes from anesthesia/surgical team at [facility], they are requesting updated stress test given his ongoing weakness. Likely due to persistent anemia and recent CA diagnosis. However, given his complex history and to further risk stratify will proceed with nuclear lexiscan stress test to R/O inducible ischemia. Patient not able to ambulate on a treadmill due to leg weakness. Dobutamine not advised given history of PAF. Therefore nuclear imaging is stress test of choice. Further recommendations pending review of stress test results. In the meantime, agree with holding amlodipine given intermittent hypotension. If BP trends higher,consider resuming amlodipine 2.5 mg daily (previously on 5 mg) In regards to antiplatelet/anticoagulation therapy, likely plavix and Eliquis to be held in pre op setting. Hold plavix for 5 days. Hold Eliquis for 2 days. Given cardiovascular history, he needs to take ASA 81 mg daily during this time. This will be relayed to patient when surgical date is set. Device is functioning appropriately. Recent echo/JESSEE with preserved EF, stable moderate aortic stenosis. The patient is to continue all current medications as listed above. No changes were made at today'svisit. CHF tools discussed including daily weights, salt/sodium/fluid [...] or concerns. ER with all emergencies advised. Check-out note: Keep f/u as scheduled Elvira Alexander PA-C Department of Cardiology This chart was completed in part utilizing Dynamic Signal Speech Voice Recognition Software. Grammatical errors, random [...] documented in this encounter Nursing Notes * Erika Denny CMA - 09/17/2023 3:01 PM EDT Examination Room: 1 Name: Clinton Locke Date of : (1940) Reason for Visit: pre op Interim Hospitalization(s): none Problems/Concerns: denied Chest Pain/SOB: denied [facility] a way you can [...] 10/01/2023 1:00 PM EDT Nurse Only Ancillary [address] [place] [address] Nurse, Int Med [address] [facility] [place] [address] 12/09/2023 10:00 AM EDT Office Visit Cardiology, [facility] [address] [place] [address] Elvira Alexander PA-C [address] [place] [address] 02/17/2024 10:00 AM EDT Office Visit General Internal Medicine [address] [place] [address] Neto Rasheed MD [address] [place] [address] [place] [id number] 07/14/2024 1:45 PM EDT Office Visit Dermatology [address] [place] [address] Bonnie Sawyer MD [address] [place] [address] [place] [id number] Scheduled Orders Name Type Priority Associated Diagnoses Orde r Schedule NM MYOCARD PERF IMG SPECT MULT STUDIES WITH PHARM INTERV Cardiology Routine Paroxysmal atrial fibrillation (HCC) HTN, goal below 140/90 Nonrheumatic aortic valve stenosis Preoperative cardiovascular examination Fatigue, unspecified type Expected: 09/17/2023, Expires: 10/17/2024 Health Maintenance Due Date Last Done Comments Alpha-1 Antitrypsin 1957 Zoster Vaccines (1 of 2) 1989 COVID-19 Vaccine (5 - 2022- season) 2022 08/29/2021, 03/29/2021, 07/06/2020, Additional history exists TSH 07/20/2024 07/21/2023, 07/27, 08/22/2021, Additional history exists GFR 09/16/2024 09/17/2023, 07/26, [...] this encounter Medical Devices Implanted Type Area Geological Engineering Teacher Device Identifier Shelf Expiration Date Model / Serial / Lot Woundmatrix Fenstr [id number] (150 Units) - [id number] - [id number] Implanted:Qty: 150 on 04/18/2019 by Hayden Fleming MD at [facility] Left: Leg Upper [employer] [id number] 01/25/2020 [id number] / [id number] / [id number] Indwelling Voice Prosthesis Implanted:Qty: 1 on 10/26/2019 by Hayden Fleming MD at [facility] N/A: Throat 08/16/2021 1616-NS / / [id number] Description:INHEALTH TECHNOL IDRIS REF : IN 1616-NS (HECTOR-ALONZO) CLASSIC INDWELLING VOICE PROSTHESIS WITH INSERTION / CLEANING ACCESSORIES documented as of this encounter Visit Diagnoses Diagnosis Preoperative cardiovascular examination- Primary Pre-operative cardiovascular examination Paroxysmal atrial fibrillation (HCC) Atrial fibrillation HTN, goal below 140/90 Unspecified essential hypertension Nonrheumatic aortic valve stenosis Aortic valve disorders Fatigue, unspecified type Cardiac pacemaker in situ Coronary artery disease involving gakona coronary artery of gakona heart without angina pectoris S/P carotid endarterectomy Other postprocedural status Dyslipidemia, goal LDL below 70 Other and unspecified hyperlipidemia documented in this encounter Advance Directives Documents on File Type Date Recorded Patient Quality Consultant Expl anation Power of Dive Master 09/27/2018 POWER OF A TTORNEY * Full [...] and were consensually agreed upon. Care Teams Blender Laborer Relationship Specialty Start Date End Date Neto Rasheed MD [address] [facility] [place] [address] PCP - General Internal Medicine 02/14/21 documented as of this encounter"
--- OUTSIDE RECORDS SUMMARY | 2023-09-21 11:05 | External Medical Summary ---
Author Name Unknown Address Unknown Organization K09:[facility] [place] [address] Laboratory Report Ordering Provider Test Date Status DEV LIAO 09/17/2023 12:07:17 Final Observation Date Value Abnormality Reference (Units ) Status BUN 09/17/2023 12:07:17 14 6-20 (mg/dL) Final Creatinine 09/17/2023 12:07:17 1.2 0.6-1.2 (mg/dL) Final Glomerular filtration rate/1.73 sq M.predicted [Volume Rate/Area] in Serum, Plasma or Blood by Creatinine-based formula (CKD-EPI) 09/17/2023 12:07:17 62 >=60 (mL/min) Final eGFR is calculated based on the CKD-EPI 2020 equation Sodium 09/17/2023 12:07:17 138 135-146 (m mol/L) Final Potassium 09/17/2023 12:07:17 4.2 3.5-5.1 (m mol/L) Final Cl 09/17/2023 12:07:17 102 98-107 (mm ol/L) Final CO2 09/17/2023 12:07:17 23 22-32 (mmo l/L) Final Anion gap 09/17/2023 12:07:17 13 7-15 (mmol /L) Final Glucose 09/17/2023 12:07:17 111 70-120 (mg /dL) Final Albumin 09/17/2023 12:07:17 3.4 Below low normal 3.8 -5.0 (g/dL) Final AST (Aspartate aminotransferase) 09/17/2023 12:07:17 21 10-50 (U/L) Fin al Alk Phos 09/17/2023 12:07:17 76 35-130 (U/ L) Final Bilirubin, Total 09/17/2023 12:07:17 0.5 <=1 .2 (mg/dL) Final Calcium 09/17/2023 12:07:17 9.2 8.4-10.2 ( mg/dL) Final Protein 09/17/2023 12:07:17 6.4 6.0-8.3 (g /dL) Final ALT (Alanine aminotransferase) 09/17/2023 12:07:17 10 10-50 (U/L) Jonathan jett Performing Location [facility] [address] [place] [address]
--- OUTSIDE RECORDS SUMMARY | 2023-09-21 11:05 | External Medical Summary | Summary of Care ---
Author Name Unknown Organization [facility] Address [address] [facility] [place] [address] Phone [phone] Care Team Providers Care Supervisor Tower Name Role Phone Neto Rasheed MD Primary Care Provider + Encounter Details Date Type Department Care Team (Late st Contact Info) Description 08/19/2023 Result Scan Unspecified Department <No scans attached> Allergies Active Allergy Reactions Criticality Noted Date Comments Rosuvastatin 02/11/2019 documented as of this encounter (statuses as of 09/14/2023) Medications Medication Sig Dispensed Refills Start Date End Date Status nitroglycerin (NITROSTAT) 0.4 MG SUBLIndications:CAD (coronary artery disease), [place] coronary artery,Chest pain,SOB (shortness of breath),Malaise [...] Oral Tablet (Lipitor)Indication s:Coronary artery disease involving [place] coronary artery of [place] heart without angina pectoris,Dyslipidem ia, goal LDL [...] XL)Indications:HTN, goal below 140/90,Coronary artery disease involving [place] coronary artery of [place] heart without angina pectoris,Aortocoron sharon bypass status,PAF (paroxysmal atrial fibrillation) (HCC) Take 1 Tablet by mouth in the morning. 90 Tablet 3 07/07/2023 Active predniSONE 20 MG Oral Tablet (Deltasone)Indicati ons:COPD exacerbation (HCC) TAKE 2 TABLETS BY MOUTH DAILY FOR 5 DAYS 10 Tablet 1 07/07/2023 Active Additional Information Patient not taking.Reported on 09/08/2023 Omeprazole 20 MG Oral Capsule Delayed Release (PriLOSEC)Indicatio ns:Gastroesophageal reflux disease without esophagitis Take 1 Capsule by mouth in the morning. 90 Capsule 1 07/21/2023 Active Doxycycline Hyclate 100 MG Oral Tablet Delayed ReleaseIndications: COPD exacerbation (HCC) Take 1 Tablet by mouth in the morning and 1 Tablet before bedtime. - rescue kit. 14 Tablet 07/21/2023 Active Ipratropium-Albuter ol 0.5-2.5 (3) MG/3ML [...] before bedtime. 360 mL 1 08/04/2023 Active Linezolid 600 MG Oral Tablet (Zyvox) Take 1 Tablet by mouth in the morning and 1 Tablet before bedtime. 08/03/2023 Active documented as of this encounter (statuses as of 09/14/2023) Active Problems Problem Noted Date Diagnosed Date [...] of gout 02/05/2012 CAD (coronary artery disease), [place] coronary a rtery 01/22/2012 Other voice [...] as of this encounter (statuses as of 09/14/2023) Resolved Problems Problem Noted Date Diagnosed Date [...] as of this encounter (statuses as of 09/14/2023) Immunizations Name Administration Dates Next Due COVID-19 mRNA, LNP-s, No Pre serve, 2-Dose Series ([employer]) 03/29/2021,07/06/2020,06/15/2020 COVID-19, LNP-s, No Preserve , Evert-sucrose, [...] Internal Medicine [facility] [address] [place], [place] [address] Neto Rasheed MD [address] [facility] [address] [facility] [address] 12/09/2023 10:00 AM EDT Office Visit Cardiology, [facility] [address] [place] [address] Elvira Alexander PA-C [address] [place] [address] 02/17/2024 10:00 AM EDT Office Visit General Internal Medicine [facility] [address] [place] [address] Neto Rasheed MD [address] [facility] [place] [address] 07/14/2024 1:45 PM EDT Office Visit Dermatology [facility] [address] [facility] [place] [address] Bonnie Sawyer MD [address] [facility] [place] [address] Health Maintenance Due Date Last Done Comments Alpha-1 Antitrypsin 1957 Zoster Vaccines (1 of 2) 1989 COVID-19 Vaccine (2022- season) 2022 08/29/2021, 03/29/2021, 07/06/2020, Additional history exists TSH 07/20/2024 07/21/2023, /2 09/2022, 08/22/2021, Additional history exists GFR 08/13/2024 08/14/2023, 0411/2023, 07/21/2023, Additional history exists O2 ASSESSMENT COMPLETED [...] this encounter Medical Devices Implanted Type Area Banquet Food Server Device Identifier Shelf Expiration Date Model / Serial / Lot Woundmatrix Fenstr [id number] (150 Units) - [id number] - [id number] Implanted:Qty: 150 on 04/18/2019 by Hayden Fleming MD at OR [facility] Left: Leg Upper [employer] [id number] 01/25/2020 [id number] / [id number] / [id number] Indwelling Voice Prosthesis Implanted:Qty: 1 on 10/26/2019 by Hayden Fleming MD at OR [facility] N/A: Throat 08/16/2021 1616-NS / / [id number] Description:INHEALTH TECHNOL OGIES REF : IN 1616-NS (HECTOR-ALONZO) CLASSIC INDWELLING VOICE PROSTHESIS WITH INSERTION / CLEANING ACCESSORIES documented as of this encounter Procedures Procedure Name Priority Date/Time Associated Diagnosis Comments RADIOLOGY SCANNED RESULT 08/19/2023 documented in this encounter Results * RADIOLOGY SCANNED RESULT (08/19/2023) 08/19/2023 No Physician Data Unknown DIAGNOSTIC RAD IOLOGY SERVICES documented in this encounter Advance Directives Documents on File Type Date Recorded Patient Lofter Expl anation Power of Range Aide 09/27/2018 POWER OF A TTORNEY * Full [...] and were consensually agreed upon. Care Teams Supervisor Tower Relationship Specialty Start Date End Date Neto Rasheed MD [address] [place] [address] PCP - General Internal Medicine 02/14/21 documented as of this encounter
--- OUTSIDE RECORDS SUMMARY | 2023-09-21 11:05 | External Medical Summary | Summary of Care ---
Author Name Unknown Organization [facility] Address [address] [facility] [place] [address] Phone [phone] Care Team Providers Care Ed Transporter Name Role Phone Neto Rasheed MD Primary Care Provider + Reason for Referral * Evaluate & Treat - Unlimited Visits (Within 30 days (routine)) - Pending Review Specialty Diagnoses / Procedures Referred By Contac t Referred To Contact Physical Therapy / Physical Medicine And Rehab Diagnoses Physical deconditioning Neto Rasheed MD [address] [place] [address] [place] [id number] Referral ID Status Reason Start Date Expiration Date Visits Requested Visits Authorized [id number] Pending Review Specialty Services Required 09/05/[phone] Question Answer Referral Priority Within 30 days (routine) Where should this appointment be scheduled? [facility] Reason for Visit * Reason Onset Date Comments Advice 09/04/2023 Encounter Details Date Type Department Care Team (Late st Contact Info) Description 09/04/2023 Telephone General Internal Medicine [facility] [address] [place] [address] Neto Rasheed MD [address] [place] [address] Advice Allergies Active Allergy Reactions Criticality Noted Date Comments Rosuvastatin 02/11/2019 documented as of this encounter (statuses as of 09/15/2023) Medications Medication Sig Dispensed Refills Start Date End Date Status nitroglycerin (NITROSTAT) 0.4 MG SUBLIndications:CAD (coronary artery disease), [place] coronary artery,Chest pain,SOB (shortness of breath),Malaise and [...] Oral Tablet (Lipitor)Indication s:Coronary artery disease involving [place] coronary artery of [place] heart without angina pectoris,Dyslipidem ia, goal LDL [...] XL)Indications:HTN, goal below 140/90,Coronary artery disease involving [place] coronary artery of [place] heart without angina pectoris,Aortocoron sharon bypass status,PAF [...] and 1 Tablet before bedtime. 08/03/2023 Active Levothyroxine Sodium 125 MCG Oral Tablet (Levoxyl) TAKE 1 TABLET BY MOUTH EVERY DAY AT LEAST 30 MIN BEFORE BREAKFAST OR OTHER MEDICATION 90 Tablet 1 08/24/2023 Active documented as of this encounter (statuses as of 09/15/2023) Active Problems Problem Noted Date Diagnosed Date [...] of gout 02/05/2012 CAD (coronary artery disease), [place] coronary a rtery 01/22/2012 Other voice and [...] as of this encounter (statuses as of 09/15/2023) Resolved Problems Problem Noted Date Diagnosed Date [...] as of this encounter (statuses as of 09/15/2023) Immunizations Name Administration Dates Next Due COVID-19 mRNA, LNP-s, No Pre serve, 2-Dose Series ([employer]) 03/29/2021,07/06/2020,06/15/2020 COVID-19, LNP-s, No Preserve , Evert-sucrose, [...] encounter Miscellaneous Notes * Telephone Encounter - Marian Miles OSA - 09/15/2023 3:52 PM EDT Spoke to patients and she states that they will go to [facility] in [place]. Order faxed 09/15/2023 * Telephone Encounter - Afshan Loyola MED ASSIST - 09/05/2023 11:33 AM EDT Spoke to pt's , aware and verbalized understanding. Pt has appt on 09/16 Please assist with scheduling PT * Telephone Encounter - Neto Rasheed MD - 09/05/2023 11:30 AM EDT Ok, if symptoms persist, please follow up * Telephone Encounter - Afshan Loyola MED ASSIST - 09/05/2023 11:27 AM EDT Referral pended if appropriate, please advise * Telephone Encounter - Ailyn Kenny OSA - 09/04/2023 4:23 PM EDT calling, pt was in hospital for 10 days, states that since he has been home he has pretty muchbeen in bed but not all the time. He will get up to eat and go to the bathroom. Pt and his think he might need some physical therapy states that he is just very weak. documented in this encounter Plan of Treatment Upcoming Encounters Date Type Department Care Team (Late st Contact Info) Description 09/17/2023 11:20 AM EDT Office Visit General Internal Medicine [facility] [address] [place] [address] Neto Rasheed MD [address] [place] [address] 12/09/2023 10:00 AM EDT Office Visit Cardiology, [facility] [address] [facility] [place] [address] Elvira [facility]C [facility] [address] 02/17/2024 10:00 AM EDT Office Visit General Internal Medicine [facility] [address] [place] [address] Neto Rasheed MD [address] [facility] [place] [address] 07/14/2024 1:45 PM EDT Office Visit Dermatology [facility] [address] [place] [address] Bonnie Sawyer MD 200 [place] [address] Scheduled Referrals Name Type Priority Associated Diagnoses Orde r Schedule PHYSICAL THERAPY REFERRAL OP Referral Within 30 days (routine) Physical deconditioning Ordered: 09/05/2023 Health Maintenance Due Date Last Done Comments Alpha-1 Antitrypsin 1957 Zoster Vaccines (1 of 2) 1989 COVID-19 Vaccine ( season) 2022 08/29/2021, 03/29/2021, 07/06/2020, Additional history exists TSH 07/20/2024 07/21/2023, 2 09/2022, 08/22/2021, Additional history exists GFR 08/13/2024 [...] this encounter Medical Devices Implanted Type Area Reading Intervention Teacher Device Identifier Shelf Expiration Date Model / Serial / Lot Woundmatrix Fenstr [id number] (150 Units) - [id number] - [id number] Implanted:Qty: 150 on 04/18/2019 by Hayden Fleming MD at [facility] Left: Leg Upper [employer] [id number] 01/25/2020 [id number] / [id number] / [id number] Indwelling Voice Prosthesis Implanted:Qty: 1 on 10/26/2019 by Hayden Fleming MD at [place] [facility] N/A: Throat 08/16/2021 1616-NS / / [id number] Description:INHEALTH TECHNOL OGIES REF : IN 1616-NS (HECTOR-ALONZO) CLASSIC INDWELLING VOICE PROSTHESIS WITH INSERTION / CLEANING ACCESSORIES documented as of this encounter Visit Diagnoses Diagnosis Physical deconditioning- Primary Debility, unspecified documented in this encounter Advance Directives Documents on File Type Date Recorded Patient Communication Center Operator Expl anation Power of Environmental Analyst 09/27/2018 POWER OF A TTORNEY * Full [...] and were consensually agreed upon. Care Teams Ed Transporter Relationship Specialty Start Date End Date Neto Rasheed MD [address] [place] [address] PCP - General Internal Medicine 02/14/21 documented as of this encounter
--- OUTSIDE RECORDS SUMMARY | 2023-09-21 11:05 | External Medical Summary | Summary of Care ---
Author Name Unknown Organization [facility] Address [address] [facility] [address] Phone [phone] Care Team Providers Care Railcar Mechanic Name Role Phone Neto Méndez MD Primary Care Provider + Reason for Visit * Reason Comments eRx-Medication Refill Encounter Details Date Type Department Care Team (Late st Contact Info) Description 09/12/2023 Refill General Internal Medicine [facility] [address] [place] [address] Neto Méndez MD 200 [place] [address] Allergies Active Allergy Reactions Criticality Noted Date [...] one ultra voice 1 Each 1 Active Ipratropium-Albut osvaldo 0.5-2.5 (3) MG/3ML Inhalation [...] EVERY DAY 90 Tablet 3 3 Active amLODIPine Besylate 5 MG Oral Tablet (Norvasc)Indicati ons:HTN, goal below 140/90 TAKE 1 TABLET BY MOUTH EVERY DAY IN THE MORNING 90 Tablet 1 4 Active Metoprolol Succinate ER 25 MG Oral Tablet Extended Release 24 Hour (toPROL XL)Indications:HT N, goal below 140/90,Coronary artery disease involving [place] coronary artery of [place] heart without angina pectoris,Aortocor onary bypass status,PAF (paroxysmal atrial fibrillation) (HCC) Take 1 Tablet by mouth in the morning. 90 Tablet 3 4 Active predniSONE 20 MG Oral Tablet (Deltasone)Indica tions:COPD exacerbation (HCC) TAKE 2 TABLETS BY MOUTH DAILY FOR 5 DAYS 10 Tablet 1 4 Active Additional Information Patient not taking.Reported on 09/08/2023 Omeprazole 20 MG Oral Capsule Delayed Release (PriLOSEC)Indicat ions:Gastroesopha geal reflux disease without esophagitis Take 1 Capsule by mouth in the morning. 90 Capsule 1 4 Active Doxycycline Hyclate 100 MG Oral Tablet Delayed ReleaseIndication s:COPD exacerbation (HCC) Take 1 Tablet by mouth in the morning and 1 Tablet before bedtime. - rescue kit. 14 Tablet 4 Active Ipratropium-Albut osvaldo 0.5-2.5 (3) MG/3ML Inhalation [...] before bedtime. 360 mL 1 4 Active Linezolid 600 MG Oral Tablet (Zyvox) Take 1 Tablet by mouth in the morning and 1 Tablet before bedtime. 4 Active Levothyroxine Sodium 125 MCG Oral Tablet (Levoxyl) TAKE 1 TABLET BY MOUTH EVERY DAY AT LEAST 30 MIN BEFORE BREAKFAST OR OTHER MEDICATION 90 Tablet 1 4 Active Clopidogrel Bisulfate 75 MG Oral Tablet (pLAVix) TAKE 1 TABLET BY MOUTH EVERY DAY 90 Tablet 1 4 Active Clopidogrel Bisulfate 75 MG Oral Tablet (pLAVix) TAKE 1 TABLET BY MOUTH EVERY DAY 90 Tablet 1 3 024 Discontinued documented as of this encounter (statuses as [...] 10/28 AORTOCORONARY BYPASS STATUS(aka CABG) 09/19/2003 Overview: 1996 CABG x 2 [facility] HISTORY OF TOBACCO [...] Influenza Virus Vac cine, Unspecified Formulation 03/08/2021,02/23/2020,12/31/2018,03/08,03/06/2017,04/25/2016,01/20/2013 ,01/22/2012,01/20/2011,03/08/2010,09/0 04/2008,03/07/2008,05/17/2001 Seasonal Influenza, PF, 6 M & above, [...] Miscellaneous Notes * Telephone Encounter - Neto Méndez MD - 09/14/2023 9:10 AM EDTSigned Prescriptions: Disp Refills Clopidogrel Bisulfate 75 MG Oral Tablet (p*90 Tab*1 Sig: TAKE 1 TABLET BY MOUTH EVERY DAY Authorizing Provider: NETO MÉNDEZ * Telephone Encounter - Nohelia Lopez RP - 09/14/2023 9:07 AM EDTPending Prescriptions: Disp Refills Clopidogrel Bisulfate 75 MG Oral Tablet [P*90 Tab*1 Sig: TAKE 1 TABLET BY MOUTH EVERY DAY * Telephone Encounter - Nohelia Lopez RP - 09/14/2023 9:07 AM EDT Unable to authorize medication refills for pended medication(s) at this time. Part of the protocol criteria used for refill authorization was not satisfied. Patient needs CBC within normal limits. Please approve if appropriate. Nohelia Srinivasan Clinical Pharmacist [facility] ([facility]) (Formerly Telepharmacy) [phone] 09/14/2023, 9:07 AM * Telephone Encounter - Nohelia Lopez RPh - 09/14/2023 9:07 AM EDT Did you pend patient's preferred pharmacy and medication before forwarding?yes Pharmacy: [id number] [address] [place] [address] Pending Prescriptions: Disp Refills Clopidogrel Bisulfate 75 MG Oral Tablet (*90 Tab*1 Sig: TAKE 1 TABLET BY MOUTH EVERY DAY Last Visit: 08/14/2023 (in office), 02/22/2021 (telemedicine) Next Visit: 09/17/2023 If no future appointments scheduled, and last appointment is greater than a year ago, please schedule patient for a follow-up appointment Last date the medication was ordered: 03/09/23 Is this request for a controlled substance?No Urine Drug Screen:No results found. However, due to the size of the patient record, not all encounters were searched. Please check Results Review for a complete set of results. Patient Phone Numbers Labs: Lab Results Component Value Date/Time CREAT 1.2 08/14/2023 10:57 AM CREAT 0.84 08/03/2023 12:00 AM CREAT 1.0 06/17/2022 11:24 AM CREAT 1.4 (H) 02/15/2020 01:19 PM CREAT 1.0 01/16/1996 04:00 AM POTASSIUM 4.3 08/14/2023 10:57 AM POTASSIUM 3.6 08/03/2023 12:00 AM POTASSIUM 4.2 06/17/2022 11:24 AM POTASSIUM 4.3 02/15/2020 01:19 PM POTASSIUM 4.2 01/18/1996 01:00 PM TSH 3.73 07/21/2023 01:44 PM TSH 2.66 03/13/2020 09:41 AM TSH 3.08 01/14/1996 06:15 AM LDLCALC 82 07/21/2023 01:44 PM LDLCALC 56 02/15/2020 01:19 PM LDLDIRECT NOT APPLICABLE 02/15/2020 01:19 PM LDLDIRECT 123 (H) 11/17/2006 05:04 PM ALT 26 08/14/2023 10:57 AM ALT 16 02/15/2020 01:19 PM ALT 24 02/29/1996 02:30 PM HGBA1C 5.9 12/02/2010 09:37 AM documented in this encounter Plan of Treatment Upcoming Encounters Date Type Department Care Team (Late st Contact Info) Description 09/17/2023 11:20 AM EDT Office Visit General Internal Medicine [facility] [address] [place] [address] Neto Méndez MD [address] [place] [address] 12/09/2023 10:00 AM EDT Office Visit Cardiology, [facility] [address] [facility] [place] [address] Elvira Alexander PA-C 132 [facility] [place] [address] 02/17/2024 10:00 AM EDT Office Visit General Internal Medicine [facility] [address] [place] [address] Neto Méndez MD [address] [place] [address] [address] 07/14/2024 1:45 PM EDT Office Visit Dermatology [facility] [address] [place] [address] [address] Bonnie Sawyer MD [address] [place] [address] [address] Health Maintenance Due Date Last Done Comments [...] this encounter Medical Devices Implanted Type Area Receiving Inspector Device Identifier Shelf Expiration Date Model / Serial / Lot Woundmatrix Fenstr [id number] (150 Units) - [id number] - [id number] Implanted:Qty: 150 on 04/18/2019 by Hayden Fleming MD at OR [facility] Left: Leg Upper [employer] [id number] 01/25/2020 [id number] / [id number] / [id number] Indwelling Voice Prosthesis Implanted:Qty: 1 on 10/26/2019 by Hayden Fleming MD at OR [facility] N/A: Throat 08/16/2021 1616-NS / / [id number] Description:INHEALTH TECHNOL OGIES REF : [place] 1616-NS (HECTOR-ALONZO) CLASSIC INDWELLING VOICE PROSTHESIS WITH INSERTION / CLEANING ACCESSORIES documented as of this encounter Advance Directives Documents on File Type Date Recorded Patient Civil Draftsman Expl anation Power of Fire Eater 09/27/2018 POWER OF A TTORNEY * Full [...] and were consensually agreed upon. Care Teams Railcar Mechanic Relationship Specialty Start Date End Date Neto Méndez MD 200 [place] [address] PCP - General Internal Medicine 02/14/21 documented as of this encounter
--- OUTSIDE RECORDS SUMMARY | 2023-09-21 11:05 | External Medical Summary | Summary of Care ---
Author Name Unknown Organization [facility] Address [address] [facility] [place] [address] Phone [phone] Care Team Providers Care Teller Head Name Role Phone Nteo Rasheed MD Primary Care Provider + Encounter Details Date Type Department Care Team (Late st Contact Info) Description 09/11/2023 Orders Only General Internal Medicine [facility] [address] [facility] [address] [place] [address] Neto Rasheed MD 200 [place] [address] Allergies Active Allergy Reactions Criticality Noted Date Comments Rosuvastatin 02/11/2019 documented as of this encounter (statuses as of 09/11/2023) Medications Medication Sig Dispensed Refills Start Date End Date Status nitroglycerin (NITROSTAT) 0.4 MG SUBLIndications:CAD (coronary artery disease), e[place] coronary artery,Chest pain,SOB (shortness of breath),Malaise and [...] Oral Tablet (Lipitor)Indication s:Coronary artery disease involving eek coronary artery of eek heart without angina pectoris,Dyslipidem ia, goal LDL below 70 TAKE 1 TABLET BY MOUTH EVERY DAY IN THE MORNING 90 Tablet 3 02/06/2023 Active Clopidogrel Bisulfate 75 MG Oral Tablet (pLAVix) TAKE 1 TABLET BY MOUTH EVERY DAY 90 Tablet 1 03/09/2023 Active PARoxetine HCl [...] XL)Indications:HTN, goal below 140/90,Coronary artery disease involving eek coronary artery of eek heart without angina pectoris,Aortocoron sharon bypass status,PAF [...] rescue kit. 14 Tablet 0 07/21/2023 Active Ipratropium-Albuter ol 0.5-2.5 (3) MG/3ML [...] the morning and 1 Tablet before bedtime. 0 08/03/2023 Active Levothyroxine Sodium 125 MCG Oral Tablet (Levoxyl) TAKE 1 TABLET BY MOUTH EVERY DAY AT LEAST 30 MIN BEFORE BREAKFAST OR OTHER MEDICATION 90 Tablet 1 08/24/2023 Active documented as of this encounter (statuses as of 09/11/2023) Active Problems Problem Noted Date Diagnosed Date [...] of gout 02/05/2012 CAD (coronary artery disease), eek coronary a rtery 01/22/2012 Other voice and [...] as of this encounter (statuses as of 09/11/2023) Resolved Problems Problem Noted Date Diagnosed Date [...] as of this encounter (statuses as of 09/11/2023) Immunizations Name Administration Dates Next Due COVID-19 mRNA, LNP-s, No Pre serve, 2-Dose Series ([employer]) 03/29/2021,07/06/2020,06/15/2020 COVID-19, LNP-s, No Preserve , Evert-sucrose, Ages 12+ (Pfizer) 08/29/2021 DTaP Dipth/Tet/Acell Pertussis (Infanrix), Peds 09/26/2003 Diptheria/Tetanus Adult (TD) 09/26/2003 Pneumococcal Conjugate Vacc, 13 Valent (Prevnar) 04/25/2016 Pneumococcal Conjugate Vacci ne, 7 Valent 11/17/2006 Pneumococcal Polysaccharide PPV23 (Pneumovax) 10/31/2009 Season Influenza, Quad, PF, Adjuvanted, 65+ Yrs, IM (FLUAD) 02/23/2020 Seasonal Influenza Virus Vac cine, Unspecified Formulation 03/08/2021,02/23/2020,12/31/2018,03/08,03/06/2017,04/25/2016,01/20/2013 ,01/22/2012,01/20/2011,03/08/2010,090 04/2008,03/07/2008,05/17/2001 Seasonal Influenza, PF, 6 M & [...] AM EDT Office Visit General Internal Medicine [facility] [address] [place] [address] Neto Rasheed MD [address] [place] [address] 12/09/2023 10:00 AM EDT Office Visit Cardiology, [facility] [address] [place] [address] Elvira Alexander PA-C [address] [place] [address] 02/17/2024 10:00 AM EDT Office Visit General Internal Medicine [facility] [address] [place] [address] Neto Rasheed MD [address] [place] [address] [address] 07/14/2024 1:45 PM EDT Office Visit Dermatology [facility] [address] [place] [address] Bonnie Sawyer MD [address] [place] [address] Health Maintenance Due Date Last Done Comments [...] this encounter Medical Devices Implanted Type Area Motorbike Courier Device Identifier Shelf Expiration Date Model / Serial / Lot Woundmatrix Fenstr [id number] (150 Units) - [id number] - [id number] Implanted:Qty: 150 on 04/18/2019 by Hayden Fleming MD [place] [facility] Left: Leg Upper [employer] [id number] 01/25/2020 [id number] / [id number] / [id number] Indwelling Voice Prosthesis Implanted:Qty: 1 on 10/26/2019 by Hayden Fleming MD at [place] [facility] N/A: Throat 08/16/2021 1616-NS / / [id number] Description:INHEALTH TECHNOL [place]GNAYELI REF : [place] 1616-NS ([place]) CLASSIC INDWELLING VOICE PROSTHESIS WITH INSERTION / CLEANING ACCESSORIES documented as of this encounter Procedures Procedure Name Priority Date/Time Associated Diagnosis Comments XR CHEST 1 VIEW Routine 07/31/2023 documented in this encounter Results * XR CHEST 1 VIEW (07/31/2023) Anatomical Region Laterality Modality Chest Other 07/31/2023 Hal Teixeira MD RADIOLOGY (RAD G ENERAL) documented in this encounter Advance Directives Documents on File Type Date Recorded Patient Manager Highway Expl anation Power of Terminal Manager 09/27/2018 POWER OF A TTORNEY Latest Code [...] and were consensually agreed upon. Care Teams Teller Head Relationship Specialty Start Date End Date Neto Rasheed MD 200 [place] [address] PCP - General Internal Medicine 02/14/21 documented as of this encounter
--- OUTSIDE RECORDS SUMMARY | 2023-09-21 11:05 | External Medical Summary ---
Author Name Unknown Address Unknown Organization K01:[facility] - [address] [place] [address] Laboratory Report Ordering Provider Test Date Status DEV LIAO 09/17/2023 12:07:17 Final Observation Date Value Abnormality Reference (Units ) Status T4, Free 09/17/2023 12:07:17 1.2 0.9-1.7 (n g/dL) Final Performing Location [facility] - [address] [place] [address]
--- OUTSIDE RECORDS SUMMARY | 2023-09-21 11:06 | External Medical Summary | Summary of Care ---
Author Name Unknown Organization [facility] Address [address] [facility] [place] [address] Phone [phone] Care Team Providers Care Traffic Line Painter Name Role Phone Neto Rasheed MD Primary Care Provider + Encounter Details Date Type Department Care Team (Late st Contact Info) Description 09/01/2023 Result Scan Unspecified Department True Prasad, DO [address] [place] [address] <No scans attached> Allergies Active Allergy Reactions Criticality Noted Date Comments Rosuvastatin 02/11/2019 documented as of this encounter (statuses as of 09/01/2023) Medications Medication Sig Dispensed Refills Start Date End Date Status nitroglycerin (NITROSTAT) 0.4 MG SUBLIndications:CAD (coronary artery disease), [place] coronary artery,Chest pain,SOB (shortness of breath),Malaise and [...] PRN, Constipation, Informant: Patient, Reported on 06/02/2022 Mis. Devices MISC Size 10 shiley laryngectomy tube [...] Oral Tablet (Lipitor)Indication s:Coronary artery disease involving [place] coronary artery of [place] heart without angina pectoris,Dyslipidem ia, goal LDL [...] XL)Indications:HTN, goal below 140/90,Coronary artery disease involving [place] coronary artery of [place] heart without angina pectoris,Aortocoron sharon bypass status,PAF (paroxysmal atrial fibrillation) (HCC) Take 1 Tablet by mouth in the morning. 90 Tablet 3 07/07/2023 Active predniSONE 20 MG Oral Tablet (Deltasone)Indicati ons:COPD exacerbation (HCC) TAKE 2 TABLETS BY MOUTH DAILY FOR 5 DAYS 10 Tablet 1 07/07/2023 Active Omeprazole 20 MG Oral Capsule [...] as of this encounter (statuses as of 09/01/2023) Active Problems Problem Noted Date Diagnosed Date [...] of gout 02/05/2012 CAD (coronary artery disease), [place] coronary a rtery 01/22/2012 Other voice and [...] as of this encounter (statuses as of 09/01/2023) Resolved Problems Problem Noted Date Diagnosed Date [...] as of this encounter (statuses as of 09/01/2023) Immunizations Name Administration Dates Next Due COVID-19 mRNA, LNP-s, No Pre serve, 2-Dose Series (Swyzzle) 03/29/2021,07/06/2020,06/15/2020 COVID-19, LNP-s, No Preserve , Evert-sucrose, [...] AM EDT Office Visit General Internal Medicine [facility] [address] [facility] [place] [address] Neto Rasheed MD [address] [facility] [place] [address] 07/14/2024 1:45 PM EDT Office Visit Dermatology [facility] [address] [facility] [place] [address] Bonnie [place] MD [address] [facility] [place] [address] Health Maintenance Due Date Last Done Comments [...] this encounter Medical Devices Implanted Type Area Storekeeper Engineering Device Identifier Shelf Expiration Date Model / Serial / Lot Woundmatrix Fenstr [id number] (150 Units) - [id number] - [id number] Implanted:Qty: 150 on 04/18/2019 by Hay[place] Fleming [place] [facility] [place] Leg Upper [employer] [id number] 01/25/2020 [id number] / [id number] / [id number] Indwelling Voice Prosthesis Implanted:Qty: 1 on 10/26/2019 by Hayden Fleming [place] [facility] [place]A: Throat 08/16/2021 1616-NS / / [id number] Description:INHEALTH TECHNOL OGIES REF : IN 1616-NS (HECTOR-ALONZO) CLASSIC INDWELLING VOICE PROSTHESIS WITH INSERTION / CLEANING ACCESSORIES documented as of this encounter Procedures Procedure Name Priority Date/Time Associated Diagnosis Comments CARDIOLOGY SCANNED RESULT 09/01/2023 documented in this encounter Results * CARDIOLOGY SCANNED RESULT (09/01/2023) 09/01/2023 True Prasad DO OTHER documented in this encounter Advance Directives Documents on File Type Date Recorded Patient Mold Washer Expl anation Power of Office Mail Clerk 09/27/2018 POWER OF A TTORNEY Latest [...] and were consensually agreed upon. Care Teams Traffic Line Painter Relationship Specialty Start Date End Date Neto Rasheed MD 200 [place] [address] PCP - General Internal Medicine 02/14/21 documented as of this encounter
--- OUTSIDE RECORDS SUMMARY | 2023-09-21 11:06 | External Medical Summary ---
Author Name Unknown Address Unknown Organization K01:LABORATORY [facility] - [address] [facility] [facility] [address] Laboratory Report Ordering Provider Test Date Status DEV LIAO 09/08/2023 16:33:53 Final Observation Date Value Abnormality Reference (Units ) Status WBC, Total 09/08/2023 16:33:53 15.88 Above high normal 4.00-10.80 (K/uL) Final RBC 09/08/2023 16:33:53 3.33 4.50-5.25 (M/uL) Final Hemoglobin 09/08/2023 16:33:53 10.0 Below low normal 14.0-16.8 (g/dL) Final HCT 09/08/2023 16:33:53 31.7 Below low normal 40.0-48.4 (%) Final MCV 09/08/2023 16:33:53 95.2 82.0-99.5 (fL) Final MCH 09/08/2023 16:33:53 30.0 27.0-34.0 (pg) Final MCHC 09/08/2023 16:33:53 31.5 32.0-36.0 (g/dL) Final RDW 09/08/2023 16:33:53 15.0 11.5-15.5 (%) Final Platelets 09/08/2023 16:33:53 437 Above high normal 140-400 (K/uL) Final MPV 09/08/2023 16:33:53 9.7 6.6-11.1 (fL) Final Nucleated erythrocytes/100 leukocytes [Ratio] in Blood by Automated count 09/08/2023 16:33:53 0 <=0 (/100 WBCs) Final Performing Location [facility] - [address] [place] [address]
--- OUTSIDE RECORDS SUMMARY | 2023-09-21 11:06 | External Medical Summary | Summary of Care ---
Author Name Unknown Organization [facility] Address [address] [facility] [place] [address] Phone [phone] Care Team Providers Care Interrelated Special Education Teacher Name Role Phone Neto Rasheed MD Primary Care Provider + Encounter Details Date Type Department Care Team (Late st Contact Info) Description 08/31/2023 Orders Only General Internal Medicine [facility] [address] [facility] [address] [place] [id number] Neto Rasheed MD 200 [place] [address] Allergies Active Allergy Reactions Criticality Noted Date Comments Rosuvastatin 02/11/2019 documented as of this encounter (statuses as of 08/31/2023) Medications Medication Sig Dispensed Refills Start Date End Date Status nitroglycerin (NITROSTAT) 0.4 MG SUBLIndications:CAD (coronary artery disease), [place] coronary artery,Chest pain,SOB (shortness of breath),Malaise and [...] Oral Tablet (Lipitor)Indication s:Coronary artery disease involving [place] coronary artery of [place] heart without angina pectoris,Dyslipidem ia, goal LDL [...] XL)Indications:HTN, goal below 140/90,Coronary artery disease involving [place] coronary artery of [place] heart without angina pectoris,Aortocoron sharon bypass status,PAF [...] as of this encounter (statuses as of 08/31/2023) Active Problems Problem Noted Date Diagnosed Date [...] of gout 02/05/2012 CAD (coronary artery disease), [place] coronary a rtery 01/22/2012 Other voice and [...] as of this encounter (statuses as of 08/31/2023) Resolved Problems Problem Noted Date Diagnosed Date [...] as of this encounter (statuses as of 08/31/2023) Immunizations Name Administration Dates Next Due COVID-19 mRNA, LNP-s, No Pre serve, 2-Dose Series (SkyBulls) 03/29/2021,07/06/2020,06/15/2020 COVID-19, LNP-s, No Preserve , Evert-sucrose, [...] AM EDT Office Visit General Internal Medicine [facility] [address] [facility] [place] [address] Neto Rasheed MD [address] [facility] [place] [address] 07/14/2024 1:45 PM EDT Office Visit Dermatology [facility] [address] [facility] [place] [address] Bonnie [place] MD [address] [facility] [place] [address] Health Maintenance Due Date Last Done Comments [...] this encounter Medical Devices Implanted Type Area Bass Viol Repairer Device Identifier Shelf Expiration Date Model / Serial / Lot Woundmatrix Fenstr [id number] (150 Units) - [id number] - [id number] Implanted:Qty: 150 on 04/18/2019 by Hayden Fleming MD at [place] [facility] [place] Left: Leg Upper [employer] [id number] 01/25/2020 [id number] / [id number] / [id number] Indwelling Voice Prosthesis Implanted:Qty: 1 on 10/26/2019 by Hayden Fleming MD at OR [facility] [place] N/A: Throat 08/16/2021 1616-NS / / [id number] Description:INHEALTH TECHNOL OGIES REF : IN 1616-NS (HECTOR-ALONZO) CLASSIC INDWELLING VOICE PROSTHESIS WITH INSERTION / CLEANING ACCESSORIES documented as of this encounter Procedures Procedure Name Priority Date/Time Associated Diagnosis Comments CHEMISTRY-OUTSIDE Routine 08/03/2023 documented in this encounter Results * (ABNORMAL) CHEMISTRY-OUTSIDE (08/03/2023) Not all results display below - see scan for full detail OUTSIDE LAB (SEE SCANNED REPORT) Comment:SCAN INCL: INPT LABS : CBCD,PT, INR, UA,CMP,MG,TROP,CRP,PROCAL,VANCO,BLOOD CULT CREATININE-OUTSID E LAB 0.84 0.6 - 1.4 MG/DL OUTSIDE LAB (SEE SCANNED REPORT) EGFR-OUTSIDE LAB 80.4 OUT SIDE LAB (SEE SCANNED REPORT) POTASSIUM-OUTSIDE LAB 3.6 3.5 - 5.1 MMOL/L OUTSIDE LAB (SEE SCANNED REPORT) GLUCOSE-OUTSIDE LAB 85 70 - 99 OUTSIDE LAB (SEE SCANNED REPORT) HOURS FASTING OUTSID E LAB (SEE SCANNED REPORT) TRIGLYCERIDES-OUT SIDE LAB OUTSIDE LAB (SEE SCANNED REPORT) CHOLESTEROL-OUTSI DE LAB OUTSIDE LAB (SEE SCANNED REPORT) HDL-OUTSIDE LAB OUTS MADHAV LAB (SEE SCANNED REPORT) CHOL/HDL RATIO-OUTSIDE LAB OUTSIDE LA B (SEE SCANNED REPORT) LDL (CALCULATED)-OUTS MADHAV LAB OUTSIDE LAB (SEE SCANNED REPORT) LDL (DIRECT MEASURE)-OUTSIDE LAB OUTSIDE LAB (SEE SCANNED REPORT) HEMOGLOBIN, O6S-NRXRFHS LAB OUTSIDE LAB (SEE SCANNED REPORT) PHOSPHORUS-OUTSID E LAB 3.5 2.5 - 4.9 MG/DL OUTSIDE LAB (SEE SCANNED REPORT) PTH-OUTSIDE LAB OUTS MADHAV LAB (SEE SCANNED REPORT) MICROALBUMIN RATIO-OUTSIDE LAB OUTSIDE LA B (SEE SCANNED REPORT) PROTEIN, UA-OUTSIDE LAB OUTSIDE LAB (SEE SCANNED REPORT) HGB 11.5(A) 14.0 - 18.0 G/DL OUTSIDE LAB (SEE SCANNED REPORT) 08/03/2023 History Per Patient LABORATORY OUTSIDE LAB (SEE SCANNED REPORT) documented in this encounter Advance Directives Documents on File Type Date Recorded Patient Wholesale Account Manager Expl anation Power of Rubber Process Hand 09/27/2018 POWER OF A TTORNEY Latest Code [...] and were consensually agreed upon. Care Teams Interrelated Special Education Teacher Relationship Specialty Start Date End Date Neto Rasheed MD [address] [place] [address] PCP - General Internal Medicine 02/14/21 documented as of this encounter
--- OUTSIDE RECORDS SUMMARY | 2023-09-21 11:06 | External Medical Summary | Summary of Care ---
Author Name Unknown Organization [facility] Address [address] [facility] [place] [address] Phone [phone] Care Team Providers Care Rn Production Name Role Phone Neto Rasheed MD Primary Care Provider + Reason for Visit * Reason Onset Date Comments Advice 09/04/2023 Encounter Details Date Type Department Care Team (Late st Contact Info) Description 09/04/2023 Telephone Cardiology, [facility] [address] [place] [address] Elvira Alexander PA-C [address] [place] [address] Advice Allergies Active Allergy Reactions Criticality Noted Date Comments Rosuvastatin 02/11/2019 documented as of this encounter (statuses as of 09/07/2023) Medications Medication Sig Dispensed Refills Start Date End Date Status nitroglycerin (NITROSTAT) 0.4 MG SUBLIndications:CAD (coronary artery disease), [place] coronary artery,Chest pain,SOB (shortness of breath),Malaise and [...] Oral Tablet (Lipitor)Indication s:Coronary artery disease involving [place] coronary artery of [place] heart without angina pectoris,Dyslipidem ia, goal LDL [...] XL)Indications:HTN, goal below 140/90,Coronary artery disease involving [place] coronary artery of [place] heart without angina pectoris,Aortocoron sharon bypass status,PAF [...] as of this encounter (statuses as of 09/07/2023) Active Problems Problem Noted Date Diagnosed Date [...] of gout 02/05/2012 CAD (coronary artery disease), [place] coronary a rtery 01/22/2012 Other voice and [...] as of this encounter (statuses as of 09/07/2023) Resolved Problems Problem Noted Date Diagnosed Date [...] as of this encounter (statuses as of 09/07/2023) Immunizations Name Administration Dates Next Due COVID-19 mRNA, LNP-s, No Pre serve, 2-Dose Series (Wayna) 03/29/2021,07/06/2020,06/15/2020 COVID-19, LNP-s, No Preserve , Evert-sucrose, [...] Telephone Encounter - Andrew Gutierrez OSA - 09/07/2023 11:59 AM EDT Called , Clinton is setup for: Friday September 08, 2023 Arrive by 10:45 AM Appt at 11:00 AM (30 min) She is aware of the date and time. The appt with Mamadou has been cancelled. * Telephone Encounter - Inedr Rivas RN - 09/07/2023 11:53 AM EDT Called and spoke to patient's and she stated her would like to see Elvira Alexander and if we would placed him on the wait list. He has an appointment with Crystal Barkley on 10/22/2023. * Telephone Encounter - Jael Pascal OSA - 09/04/2023 4:44 PM EDT Person calling: Tiffany Relationship to patient: patient's Number to return call: [phone] Reason for call: Patient's is requesting to speak with Elvira Alexander about patient's upcoming hospital dischargeappt. Please advise. Provider Name:Elvira Alexander documented in this encounter Plan of Treatment Upcoming Encounters Date Type Department Care Team (Late st Contact Info) Description 09/08/2023 11:00 AM EDT Office Visit Cardiology, [facility] [address] [place] [address] Elvira Alexander PA-C [address] [place] [address] 09/17/2023 11:20 AM EDT Office Visit General Internal Medicine [facility] [address] [facility] [place] [address] Neto Rasheed MD [address] [facility] [place] [address] 02/17/2024 10:00 AM EDT Office Visit General Internal Medicine [facility] [address] [facility] [place] [address] Neto Rasheed MD [address] [facility] [place] [address] 07/14/2024 1:45 PM EDT Office Visit Dermatology [facility] [address] [facility] [place] [address] Bonnie [place] MD [address] [facility] [place] [address] Health Maintenance Due Date Last Done Comments [...] this encounter Medical Devices Implanted Type Area Wind Farm Operations Manager Device Identifier Shelf Expiration Date Model / Serial / Lot Woundmatrix Fenstr [id number] (150 Units) - [id number] - [id number] Implanted:Qty: 150 on 04/18/2019 by Hayden Fleming MD at [place] [facility] [place] Left: Leg Upper [employer] [id number] 01/25/2020 [id number] / [id number] / [id number] Indwelling Voice Prosthesis Implanted:Qty: 1 on 10/26/2019 by Hayden Fleming MD at OR [facility] [place] N/A: Throat 08/16/2021 1616-NS / / [id number] Description:INHEALTH TECHNOL OGIES REF : IN 1616-NS ([place]) CLASSIC INDWELLING VOICE PROSTHESIS WITH INSERTION / CLEANING ACCESSORIES documented as of this encounter Advance Directives Documents on File Type Date Recorded Patient Venetian Blind Maker Expl anation Power of Zipper Ironer 09/27/2018 POWER OF A TTORNEY Latest Code [...] and were consensually agreed upon. Care Teams Rn Production Relationship Specialty Start Date End Date Neto Rasheed MD 200 [place] [address] PCP - General Internal Medicine 02/14/21 documented as of this encounter
--- OUTSIDE RECORDS SUMMARY | 2023-09-21 11:06 | External Medical Summary | Summary of Care ---
Author Name Unknown Organization [facility] Address [address] [facility] [place] [address] Phone [phone] Care Team Providers Care Director Of Email Marketing Name Role Phone Neto Rasheed MD Primary Care Provider + Reason for Visit * Reason Onset Date Comments Test Results 08/17/2023 Encounter Details Date Type Department Care Team (Late st Contact Info) Description 08/17/2023 Telephone General Internal Medicine [facility] [place] [address] [place] [address] Neto Rasheed MD 200 [facility] [place] [address] Test Results Allergies Active Allergy Reactions Criticality Noted Date Comments Rosuvastatin 02/11/2019 documented as of this encounter (statuses as of 08/20/2023) Medications Medication Sig Dispensed Refills Start Date End Date Status nitroglycerin (NITROSTAT) 0.4 MG SUBLIndications:CAD (coronary artery disease), [place] coronary artery,Chest pain,SOB (shortness of breath),Malaise and [...] Oral Tablet (Lipitor)Indication s:Coronary artery disease involving [place] coronary artery of [place] heart without angina pectoris,Dyslipidem ia, goal LDL [...] XL)Indications:HTN, goal below 140/90,Coronary artery disease involving [place] coronary artery of [place] heart without angina pectoris,Aortocoron sharon bypass status,PAF [...] 1 Tablet before bedtime. 0 08/03/2023 Active documented as of this encounter (statuses as of 08/20/2023) Active Problems Problem Noted Date Diagnosed Date [...] of gout 02/05/2012 CAD (coronary artery disease), [place] coronary a rtery 01/22/2012 Other voice and [...] as of this encounter (statuses as of 08/20/2023) Resolved Problems Problem Noted Date Diagnosed Date [...] as of this encounter (statuses as of 08/20/2023) Immunizations Name Administration Dates Next Due COVID-19 mRNA, LNP-s, No Pre serve, 2-Dose Series (Conergy) 03/29/2021,07/06/2020,06/15/2020 COVID-19, LNP-s, No Preserve , Evert-sucrose, [...] encounter Miscellaneous Notes * Telephone Encounter - Govind Vu RN - 08/20/2023 10:21 AM EDT Images from the original note were not included. See other encounter. Closing; inbasket clean-up. Provider to address: n/a Reason for Call: Test Results Contact: [facility] Contact Type: Follow-up Outcome: See above Face to face time spent with Patient (minutes): 0 Total Time including non face to face (minutes): 10 Govind [facility] Primary Care Nurse Coordinator [facility] (Helping out) * Telephone Encounter - Govind Vu RN - 08/17/2023 2:45 PM EDT Images from the original note were not included. Phone call to the patient at [phone]; no answer. Left message on machine/voicemail. If the patient returns the call, please see the below message from Dr Rasheed. Thanks! Provider to address: n/a Reason for Call: Test Results Contact: Telephone Call Contact Type: Test Results Outcome: See above Face to face time spent with Patient (minutes): 0 Total Time including non face to face (minutes): 10 Govind [facility] Primary Care Nurse Coordinator [facility] (Helping out) * Telephone Encounter - Govind Vu RN - 08/17/2023 2:44 PM EDT ----- Message from Neto Rasheed MD sent at 08/16/2023 2:05 PM EDT ----- 1. Iron is low, would start vitron C one pill every other day. Recheck labs 1 month. Please return fobt as ordered, make sure he has one. Iron is otc, add to med list once aware 2. Slightly anemic, repeat 1 month, start iron as above to help 3. Wbc slightly high, likely from recent infection and known malignancy. Will recheck 1 month, monitor for sick symptoms wbc is improved from 07/21/23 which is good news. 4. Rest of labs ok documented in this encounter Plan of Treatment Upcoming Encounters Date Type Department Care Team (Late st Contact Info) Description 02/17/2024 10:00 AM EDT Office Visit General Internal Medicine [facility] 200 [place] [address] Neto Rasheed MD 200 [place] [address] 07/14/2024 1:45 PM EDT Office Visit Dermatology [facility] [address] [place] [address] Bonnie [place] MD 200 [place] [address] Health Maintenance Due Date Last Done Comments Alpha-1 Antitrypsin 1957 Zoster Vaccines (1 of 2) 1989 COVID-19 Vaccine ( season) 2022 08/29/2021, 03/29/2021, 07/06/2020, Additional history exists TSH 07/20/2024 07/21/2023, 07/27, 08/22/2021, Additional history exists GFR 08/13/2024 08/14/2023, 06/26, 01/05/2023, Additional history exists O2 ASSESSMENT COMPLETED IN [...] this encounter Medical Devices Implanted Type Area Oracle Soa Consultant Device Identifier Shelf Expiration Date Model / Serial / Lot Woundmatrix Fenstr 73j30cm (150 Units) - [id number] - [id number] Implanted:Qty: 150 on 04/18/2019 by Hayden Fleming MD at [place] [facility] [place] Left: Leg Upper [employer] [id number] 01/25/2020 [id number] / [id number] / [id number] Indwelling Voice Prosthesis Implanted:Qty: 1 on 10/26/2019 by Hayden Fleming MD at [place] [facility] [place] N/A: Throat 08/16/2021 1616-NS / / [id number] Description:INHEALTH TECHNOL OGIES REF : IN 1616-NS ([place]) CLASSIC INDWELLING VOICE PROSTHESIS WITH INSERTION / CLEANING ACCESSORIES documented as of this encounter Advance Directives Documents on File Type Date Recorded Patient Tie Inspector Expl anation Power of Hourly Team Members 09/27/2018 POWER OF A TTORNEY Latest Code [...] were consensually agreed upon. Care Teams Director Of Email Marketing Relationship Specialty Start Date End Date Neto Rasheed MD 200 [facility] [place] [address] PCP - General Internal Medicine 02/14/21 documented as of this encounter
--- OUTSIDE RECORDS SUMMARY | 2023-09-21 11:06 | External Medical Summary ---
Author Name Unknown Address Unknown Organization K01:[facility] [place] [address] [place] [facility] Laboratory Report Ordering Provider Test Date Status MINESH BATES 09/08/2023 16:25:00 Final Site 2 Observation Date Value Abnormality Reference (Units ) Status Bacteria identified in Specimen by Culture 09/08/2023 16:25:00 No growth Final Test: Culture, Blood
Michelle magana Source: Blood, Venous
Specimen Type: Blood
Specimen Date: 09/08/20231624
Result Date: 09/13/20232200
Result Status: Final result
Resulting Lab: [facility]
[address]
[place] [address]

CULTURE

No growth

null Performing Location [facility] [place] [address] [place] [address]
--- OUTSIDE RECORDS SUMMARY | 2023-09-21 11:06 | External Medical Summary | Summary of Care ---
Author Name Unknown Organization [facility] Address [address] [facility] [address] Phone [phone] Care Team Providers Care National Park Tour Guide Name Role Phone Neto Méndez MD Primary Care Provider + Reason for Visit * Reason Comments eRx-Medication Refill Encounter Details Date Type Department Care Team (Late st Contact Info) Description 08/23/2023 Refill General Internal Medicine [facility] [address] [place] [address] Neto Méndez MD [address] [place] [address] Allergies Active Allergy Reactions Criticality Noted Date Comments Rosuvastatin 02/11/2019 documented as of this encounter (statuses as of 08/24/2023) Medications Medication Sig Dispensed Refills Start Date End Date Status nitroglycerin (NITROSTAT) 0.4 MG SUBLIndications:C AD (coronary artery disease), [place] coronary artery,Chest pain,SOB (shortness of breath),Malaise and fatigue Place 1 Tab under the tongue every 5 minutes as needed for Pain, Chest. Max dose 3 tablets in 15 minutes 25 Tab 3 9 Active Misc. Devices MISC Cool mist humidification device 1 Each 0 0 Active Misc. Devices MISC Portable suction device 1 Each 0 0 Active Misc. Devices MISC Trach care cleaning kit 1 Each 0 0 Active Misc. Devices MISC Yankauer suction tips 10 Each 5 0 Active Misc. Devices MISC 12Fr flexible suction catheters 10 Each 5 0 Active Misc. Devices MISC Inner cannulas for Shiley size 10 cuffless laryngectomy tube 10 Each 5 0 Active polyethylene glycol 3350 (MIRALAX) packet Take 1 Packet by mouth daily. 14 Each 0 0 Active Additional Information Patient taking differently:17 g OralDAILY PRN, Constipation, Informant: Patient, Reported on 06/02/2022 Misc. Devices MISC Size 10 shiley laryngectomy tube 2 Each 5 0 Active acetaminophen (TYLENOL) 500 MG Tablet Take 2 Tablets by mouth every 4 hours as needed for Fever >38C(100.5F) or Pain, Mild. 0 Active Fluorouracil 5 % External Cream (Efudex)Indicatio ns:Actinic keratosis Apply to rough spots on the scalp nightly x 2-4 weeks. 40 g 0 1 Active Misc. Devices one ultra voice 1 Each 0 1 Active Ipratropium-Albut osvaldo 0.5-2.5 (3) MG/3ML Inhalation Solution (Duoneb)Indicatio ns:COPD, moderate (HCC) Inhale via nebulizer 3 mL every 6 hours as needed for Wheezing. 360 mL 5 2 Active Sodium Chloride 0.9 % Inhalation Nebulization SolutionIndicatio [...] Oral Tablet (Lipitor)Indicati ons:Coronary artery disease involving [place] coronary artery of [place] heart without angina pectoris,Dyslipid emia, goal LDL below 70 TAKE 1 TABLET BY MOUTH EVERY DAY IN THE MORNING 90 Tablet 3 3 Active Clopidogrel Bisulfate 75 MG Oral Tablet (pLAVix) TAKE 1 TABLET BY MOUTH EVERY DAY 90 Tablet 1 3 Active PARoxetine HCl 20 MG Oral [...] N, goal below 140/90,Coronary artery disease involving [place] coronary artery of [place] heart without angina pectoris,Aortocor onary bypass status,PAF (paroxysmal atrial fibrillation) (HCC) Take 1 Tablet by mouth in the morning. 90 Tablet 3 4 Active predniSONE 20 MG Oral Tablet (Deltasone)Indica tions:COPD exacerbation (HCC) TAKE 2 TABLETS BY MOUTH DAILY FOR 5 DAYS 10 Tablet 1 4 Active Omeprazole 20 MG Oral Capsule Delayed Release (PriLOSEC)Indicat ions:Gastroesopha geal reflux disease without esophagitis Take 1 Capsule by mouth in the morning. 90 Capsule 1 4 Active Doxycycline Hyclate 100 MG Oral Tablet Delayed ReleaseIndication s:COPD exacerbation (HCC) Take 1 Tablet by mouth in the morning and 1 Tablet before bedtime. - rescue kit. 14 Tablet 0 4 Active Ipratropium-Albut osvaldo 0.5-2.5 (3) MG/3ML [...] morning and 1 Tablet before bedtime. 0 4 Active Levothyroxine Sodium 125 MCG Oral Tablet (Levoxyl) TAKE 1 TABLET BY MOUTH EVERY DAY AT LEAST 30 MIN BEFORE BREAKFAST OR OTHER MEDICATION 90 Tablet 1 4 Active Levothyroxine Sodium 125 MCG Oral Tablet (Levoxyl) TAKE 1 TABLET BY MOUTH EVERY DAY AT LEAST 30 MIN BEFORE BREAKFAST OR OTHER MEDICATION 90 Tablet 1 3 024 Discontinued documented as of this encounter (statuses as of 08/24/2023) Active Problems Problem Noted Date Diagnosed Date [...] of gout 02/05/2012 CAD (coronary artery disease), [place] coronary a rtery 01/22/2012 Other voice and [...] as of this encounter (statuses as of 08/24/2023) Resolved Problems Problem Noted Date Diagnosed Date [...] as of this encounter (statuses as of 08/24/2023) Immunizations Name Administration Dates Next Due COVID-19 mRNA, LNP-s, No Pre serve, 2-Dose Series (Cloakware) 03/29/2021,07/06/2020,06/15/2020 COVID-19, LNP-s, No Preserve , Evert-sucrose, Ages 12+ (Pfizer) 08/29/2021 DTaP Dipth/Tet/Acell Pertussis (Infanrix), Peds 09/26/2003 Diptheria/Tetanus Adult (TD) 09/26/2003 Pneumococcal Conjugate Vacc, 13 Valent (Prevnar) 04/25/2016 Pneumococcal Conjugate Vacci ne, 7 Valent 11/17/2006 Pneumococcal Polysaccharide PPV23 (Pneumovax) 10/31/2009 Season Influenza, Quad, PF, Adjuvanted, 65+ Yrs, IM (FLUAD) 02/23/2020 Seasonal Influenza Virus Vac cine, Unspecified Formulation 03/08/2021,02/23/2020,12/31/2018,03/08,03/06/2017,04/25/2016,01/20/2013 ,01/22/2012,01/20/2011,03/08/2010,09/04/2008,03/07/2008,05/17/2001 Seasonal Influenza, PF, 6 M & above, [...] encounter Miscellaneous Notes * Telephone Encounter - Solange Gibson [facility] - 08/24/2023 5:47 PM EDTSigned Prescriptions: Disp Refills Levothyroxine Sodium 125 MCG Oral Tablet (*90 Tab*1 Sig: TAKE 1 TABLET BY MOUTH EVERY DAY AT LEAST 30 MIN BEFORE BREAKFAST OR OTHER MEDICATIONAuthorizing Provider: NETO MÉNDEZ User: SOLANGE GIBSON documented in this encounter Plan of Treatment Upcoming Encounters Date Type Department Care Team (Late st Contact Info) Description 02/17/2024 10:00 AM EDT Office Visit General Internal Medicine [facility] [address] [place] [address] Neto Méndez MD [address] [place] [address] 07/14/2024 1:45 PM EDT Office Visit Dermatology [facility] [address] [place] [address] [address] Bonnie Sawyer MD [address] [place] [address] Health Maintenance Due Date Last Done Comments [...] this encounter Medical Devices Implanted Type Area Shredder Tender Device Identifier Shelf Expiration Date Model / Serial / Lot Woundmatrix Fenstr [id number] (150 Units) - [id number] - [id number] Implanted:Qty: 150 on 04/18/2019 by Hayden Fleming MD at [place] [facility] Left: Leg Upper [employer] [id number] 01/25/2020 [id number] / [id number] / [id number] Indwelling Voice Prosthesis Implanted:Qty: 1 on 10/26/2019 by Hayden Fleming MD at OR [facility] N/A: Throat 08/16/2021 1616-NS / / [id number] Description:INHEALTH TECHNOL OGIES REF : IN 1616-NS (HECTOR-ALONZO) CLASSIC INDWELLING VOICE PROSTHESIS WITH INSERTION / CLEANING ACCESSORIES documented as of this encounter Advance Directives Documents on File Type Date Recorded Patient Car Groomer Expl anation Power of Project Geophysicist 09/27/2018 POWER OF A TTORNEY Latest Code [...] and were consensually agreed upon. Care Teams National Park Tour Guide Relationship Specialty Start Date End Date Neto Méndez MD [address] [place] [address] PCP - General Internal Medicine 02/14/21 documented as of this encounter
--- OUTSIDE RECORDS SUMMARY | 2023-09-21 11:06 | External Medical Summary ---
Author Name Unknown Address Unknown Organization K01:[facility] [address] [place] [address] Laboratory Report Ordering Provider Test Date Status DEV LIAO 09/08/2023 16:33:53 Final Observation Date Value Abnormality Reference (Units ) Status Ferritin 09/08/2023 16:33:53 344 30-400 (ng /mL) Final Performing Location [facility] [address] [place] [address]
--- OUTSIDE RECORDS SUMMARY | 2023-09-21 11:06 | External Medical Summary | Summary of Care ---
Author Name Unknown Organization [facility] Address [address] [facility] [place] [address] Phone [phone] Care Team Providers Care Handkerchief Presser Name Role Phone Neto Rasheed MD Primary Care Provider + Reason for Visit * Reason Onset Date Comments Appointment Canceled 08/13/2023 Called to r eschedule Encounter Details Date Type Department Care Team (Late st Contact Info) Description 08/13/2023 Telephone Ancillary [facility] [address] [facility] [id number] Bibi Yip, SELENE Appointment Canceled (Called to reschedule) Allergies Active Allergy Reactions Criticality Noted Date Comments Rosuvastatin 02/11/2019 documented as of this encounter (statuses as of 08/25/2023) Medications Medication Sig Dispensed Refills Start Date End Date Status nitroglycerin (NITROSTAT) 0.4 MG SUBLIndications:CAD (coronary artery disease), [place] coronary artery,Chest pain,SOB (shortness of breath),Malaise and [...] Oral Tablet (Lipitor)Indication s:Coronary artery disease involving [place] coronary artery of [place] heart without angina pectoris,Dyslipidem ia, goal LDL [...] XL)Indications:HTN, goal below 140/90,Coronary artery disease involving [place] coronary artery of [place] heart without angina pectoris,Aortocoron sharon bypass status,PAF [...] before bedtime. 360 mL 1 08/04/2023 Active documented as of this encounter (statuses as of 08/25/2023) Active Problems Problem Noted Date Diagnosed Date [...] of gout 02/05/2012 CAD (coronary artery disease), [place] coronary a rtery 01/22/2012 Other voice and [...] as of this encounter (statuses as of 08/25/2023) Resolved Problems Problem Noted Date Diagnosed Date [...] as of this encounter (statuses as of 08/25/2023) Immunizations Name Administration Dates Next Due COVID-19 mRNA, LNP-s, No Pre serve, 2-Dose Series (Mondokio) 03/29/2021,07/06/2020,06/15/2020 COVID-19, LNP-s, No Preserve , Evert-sucrose, [...] encounter Miscellaneous Notes * Telephone Encounter - Bibi Yip RN - 08/13/2023 12:01 PM EDT Pts spouse who has an appointment tomorrow, will give that apt to pt and we will work on rescheduling her appointment. documented in this encounter Plan of Treatment Upcoming Encounters Date Type Department Care Team (Late st Contact Info) Description 02/17/2024 10:00 AM EDT Office Visit General Internal Medicine [facility] [address] [facility] [place] [address] Neto Rasheed MD [address] [facility] [place] [address] 07/14/2024 1:45 PM EDT Office Visit Dermatology [facility] [address] [facility] [place] [address] Bonnie Sawyer MD [address] [place] [address] Health Maintenance Due Date Last Done Comments [...] this encounter Medical Devices Implanted Type Area Supervisor Computer Operations Device Identifier Shelf Expiration Date Model / Serial / Lot Woundmatrix Fenstr [id number] (150 Units) - [id number] - [id number] Implanted:Qty: 150 on 04/18/2019 by Hayden Fleming MD at OR [facility] Left: Leg Upper [employer] [id number] 01/25/2020 [id number] / [id number] / [id number] Indwelling Voice Prosthesis Implanted:Qty: 1 on 10/26/2019 by Hayden Fleming MD at OR [facility] N/A: Throat 08/16/2021 1616-NS / / [id number] 7 Description:INHEALTH TECHNOL OGNAYELI REF : IN 1616-NS (HECTOR-ALONZO) CLASSIC INDWELLING VOICE PROSTHESIS WITH INSERTION / CLEANING ACCESSORIES documented as of this encounter Advance Directives Documents on File Type Date Recorded Patient Lang Path Therapist Expl anation Power of Float Remover 09/27/2018 POWER OF A TTORNEY Latest Code [...] and were consensually agreed upon. Care Teams Handkerchief Presser Relationship Specialty Start Date End Date Neto Rasheed MD [address] [place] [address] PCP - General Internal Medicine 02/14/21 documented as of this encounter
--- OUTSIDE RECORDS SUMMARY | 2023-09-21 11:06 | External Medical Summary | Summary of Care ---
Author Name Unknown Organization [facility] Address [address] [facility] [place] [address] Phone [phone] Care Team Providers Care Ordering Box Operator Name Role Phone Neto Rasheed MD Primary Care Provider + Reason for Visit * Reason Onset Date Comments Appointment 08/12/2023 Encounter Details Date Type Department Care Team (Late st Contact Info) Description 08/12/2023 Telephone Ancillary [facility] [place] [address] [place] [address] Bibi Yip, SELENE Appointment Allergies Active Allergy Reactions Criticality Noted Date Comments Rosuvastatin 02/11/2019 documented as of this encounter (statuses as of 08/25/2023) Medications Medication Sig Dispensed Refills Start Date End Date Status nitroglycerin (NITROSTAT) 0.4 MG SUBLIndications:CAD (coronary artery disease), [place] coronary artery,Chest pain,SOB (shortness of breath),Malaise and [...] Oral Tablet (Lipitor)Indication s:Coronary artery disease involving [place] coronary artery of [place] heart without angina pectoris,Dyslipidem ia, goal LDL [...] XL)Indications:HTN, goal below 140/90,Coronary artery disease involving [place] coronary artery of [place] heart without angina pectoris,Aortocoron sharon bypass status,PAF [...] of gout 02/05/2012 CAD (coronary artery disease), [place] coronary a rtery 01/22/2012 Other voice and [...] mRNA, LNP-s, No Pre serve, 2-Dose Series (Prolebrity) 03/29/2021,07/06/2020,06/15/2020 COVID-19, LNP-s, No Preserve , Evert-sucrose, [...] EDT Office Visit General Internal Medicine [facility] [address] [facility] [place] [address] Neto Rasheed MD [address] [facility] [place] [address] 07/14/2024 1:45 PM EDT Office Visit Dermatology [facility] [place] [address] [facility] [place] [address] Bonnie Sawyer MD [address] [facility] [place], [place] [address] Health Maintenance Due Date Last Done Comments [...] this encounter Medical Devices Implanted Type Area Instrument Inspector Device Identifier Shelf Expiration Date Model / Serial / Lot Woundjamtrix Cristianstr [id number] (150 Units) - [id number] - [id number] Implanted:Qty: 150 on 04/18/2019 by Hayden Fleming MD at OR [facility] Left: Leg Upper [employer] [id number] 01/25/2020 [id number] / [id number] / [id number] Indwelling Voice Prosthesis Implanted:Qty: 1 on 10/26/2019 by Hayden Fleming MD at OR [facility] N/A: Throat 08/16/2021 1616-NS / / [id number] 7 Description:INHEALTH TECHNOL OGIES REF : IN 1616-NS (HECTOR-ALONZO) CLASSIC INDWELLING VOICE PROSTHESIS WITH INSERTION / CLEANING ACCESSORIES documented as of this encounter Advance Directives Documents on File Type Date Recorded Patient Engineering Analyst Expl anation Power of Head Butler 09/27/2018 POWER OF A TTORNEY Latest Code [...] and were consensually agreed upon. Care Teams Ordering Box Operator Relationship Specialty Start Date End Date Neto Rasheed MD [address] [facility] [place] [address] PCP - General Internal Medicine 02/14/21 documented as of this encounter
--- OUTSIDE RECORDS SUMMARY | 2023-09-21 11:06 | External Medical Summary ---
Author Name Unknown Address Unknown Organization K01:[facility] - [address] [facility] [address] Laboratory Report Ordering Provider Test Date Status DEV LIAO 09/08/2023 16:33:53 Final Observation Date Value Abnormality Reference (Units ) Status SYNC LEUKOCYTES IN BLOOD BY AUTOMATED COUNT 09/08/2023 16:33:53 15.88 Above high normal 4.00-10.80 (K/uL) Final Segs 09/08/2023 16:33:53 83.2 Above high normal 40.0-75.0 (%) Final Lymphs % 09/08/2023 16:33:53 8.2 Below low normal 18.0-42.0 (%) Final Monos 09/08/2023 16:33:53 5.9 1.0-11.0 (%) Final Eosinophils 09/08/2023 16:33:53 1.8 0.0-6.0 (%) Final Basos 09/08/2023 16:33:53 0.5 0.0-2.0 (%) Final Immature Granulocyte, Percent 09/08/2023 16:33:53 0.4 0.0-2.0 (%) Final Absolute Segs 09/08/2023 16:33:53 13.20 Above high normal 1.80-7.70 (K/uL) Final Lymphs, absolute 09/08/2023 16:33:53 1.31 1.00-4.80 (K/ul) Final Monos, Abs 09/08/2023 16:33:53 0.93 0.00-1.10 (K/uL) Final Eos, Abs 09/08/2023 16:33:53 0.29 0.00-0.70 (K/uL) Final Basos, Abs 09/08/2023 16:33:53 0.08 0.00-0.20 (K/uL) Final Immature Granulocytes, Number 09/08/2023 16:33:53 0.07 0.00-0.20 (K/uL) Final Performing Location [facility] - [facility] [place] [address]
--- OUTSIDE RECORDS SUMMARY | 2023-09-21 11:06 | External Medical Summary | Summary of Care ---
Author Name Unknown Organization [facility] Address [address] [facility] [place] [address] Phone [phone] Care Team Providers Care Elevator Serviceman Name Role Phone Neto Rasheed MD Primary Care Provider + Reason for Visit * Reason Comments Outpatient Testing Encounter Details Date Type Department Care Team (Late st Contact Info) Description 09/08/2023 4:30 PM EDT Laboratory Laboratory [facility] [address] [facility] [place] [id number] [facility] [address] [facility] [place] [address] Decreased iron stores; History of bacteremia; Fatigue, unspecified type; Fever, unspecified fever cause Allergies Active Allergy Reactions Criticality Noted Date Comments Rosuvastatin 02/11/2019 documented as of this encounter (statuses as of 09/08/2023) Medications Medication Sig Dispensed Refills Start Date End Date Status nitroglycerin (NITROSTAT) 0.4 MG SUBLIndications:CAD (coronary artery disease), [place] coronary artery,Chest pain,SOB (shortness of breath),Malaise and [...] Oral Tablet (Lipitor)Indication s:Coronary artery disease involving [place] coronary artery of [place] heart without angina pectoris,Dyslipidem ia, goal LDL [...] XL)Indications:HTN, goal below 140/90,Coronary artery disease involving [place] coronary artery of [place] heart without angina pectoris,Aortocoron sharon bypass status,PAF [...] as of this encounter (statuses as of 09/08/2023) Active Problems Problem Noted Date Diagnosed Date [...] of gout 02/05/2012 CAD (coronary artery disease), [place] coronary a rtery 01/22/2012 Other voice and [...] as of this encounter (statuses as of 09/08/2023) Resolved Problems Problem Noted Date Diagnosed Date [...] as of this encounter (statuses as of 09/08/2023) Immunizations Name Administration Dates Next Due COVID-19 mRNA, LNP-s, No Pre serve, 2-Dose Series (Alibaba) 03/29/2021,07/06/2020,06/15/2020 COVID-19, LNP-s, No Preserve , Evert-sucrose, [...] Office Visit General Internal Medicine [facility] [address] [place] [address] [address] Neto Rasheed MD [address] [place] [address] [address] 12/09/2023 10:00 AM EDT Office Visit Cardiology, [facility] [address] [facility] [place] [address] Elvira Alexander PA-C [address] [facility] [address] 02/17/2024 10:00 AM EDT Office Visit General Internal Medicine [facility] [address] [place] [address] Neto Rasheed MD [address] [place] [address] 07/14/2024 1:45 PM EDT Office Visit Dermatology [facility] [place] [address] [place] [address] [address] Bonnie Sawyer MD [address] [place] [address] [address] Pending Results Name Type Priority Associated Diagnoses Date /Time CBC WITH WBC DIFFERENTIAL Lab Routine Decreased iron stores 09/08/2023 4:33 PM EDT IRON SCREEN, INCLUDING TIBC Lab Routine Decreased iron stores 09/08/2023 4:33 PM EDT FERRITIN Lab Routine Decreased iron stores 09/08/2023 4:33 PM EDT CULTURE, BLOOD Lab Routine History of bacteremia Fatigue, unspecified type Fever, unspecified fever cause 09/08/2023 4:25 PM EDT CULTURE, BLOOD Lab Routine History of bacteremia Fatigue, unspecified type Fever, unspecified fever cause 09/08/2023 4:33 PM EDT CBC Lab Routine Decreased iron stores 09/08/2023 4:33 PM EDT DIFFERENTIAL, AUTOMATED Lab Routine Decreased iron stores 09/08/2023 4:33 PM EDT Health Maintenance Due Date Last [...] 09/26/2003, 09/26/2003, Additional history exists Albumin/Creatinine Ratio 07/22/20262 024, 08/22/2021, 12/26/2008 Pneumococcal Vaccine: 65+ Years [...] this encounter Medical Devices Implanted Type Area Director Cost Device Identifier Shelf Expiration Date Model / Serial / Lot Woundmatrix Fenstr [id number] (150 Units) - [id number] - [id number] Implanted:Qty: 150 on 04/18/2019 by Hayden Fleming MD at [place] [facility] Left: Leg Upper [employer] [id number] 01/25/2020 [id number] / [id number] / [id number] Indwelling Voice Prosthesis Implanted:Qty: 1 on 10/26/2019 by Hayden Fleming MD at OR [facility] N/A: Throat 08/16/2021 1616-NS / / [id number] Description:INHEALTH TECHNOL OGNAYELI REF : IN 1616-NS (HECTOR-ALONZO) CLASSIC INDWELLING VOICE PROSTHESIS WITH INSERTION / CLEANING ACCESSORIES documented as of this encounter Visit Diagnoses Diagnosis Decreased iron stores Other abnormal blood chemistry History of bacteremia Personal history of other infectious and parasitic disease Fatigue, unspecified type Fever, unspecified fever cause documented in this encounter Advance Directives Documents on File Type Date Recorded Patient Carpentry Supervisor Expl anation Power of Nursing Services Manager 09/27/2018 POWER OF A TTORNEY Latest [...] and were consensually agreed upon. Care Teams Elevator Serviceman Relationship Specialty Start Date End Date Neto Rasheed MD [address] [place] [address] PCP - General Internal Medicine 02/14/21 documented as of this encounter
--- NOTE | 2023-09-21 11:23 | Emergency Department Note ---
Impression & Plan Cellulitis, Laryngeal cancer, Leukocytosis, Tracheostomy in place, Anemia ED Provider Note NAME: ALEXANDRA PETERS AGE: 83 SEX: M : 1940 ARRIVES VIA: Walk-In INFORMANT: [Patient][] ED PROVIDER(S): [Joby Brooks MD] CHIEF COMPLAINT: Referred HISTORY OF PRESENT ILLNESS: The patient is an 83-year-old male with a history of laryngeal cancer. He has a tracheostomy. Patient has had bacteremia in the past and he has had aspiration. He has a lump/mass to the right upper chest wall which has been present for quite a while. He states there is talk of an operation as they believe it is a cancerous mass. The patient states that for several weeks, the area has been slightly erythematous, for the last 2 weeks, the erythema has worsened significantly and he has noticed a low-grade fever in the last few days. He has had pain now over the area for a few days. The patient went to his doctor's office 3 days ago and had lab work. His white count was high, he was referred today to the ER. There has been no cough, no shortness of breath. No abdominal pain, no vomiting. No urinary complaints. No rash elsewhere. PMHx/PSHx/Social Hx: See Below PHYSICAL EXAM: GENERAL: Patient is in no acute distress. HEENT: No acute trauma, normocephalic atraumatic, mucous membranes moist, no nasal congestion. NECK: No stridor, no adenopathy, no meningismus, tracheostomy noted. LUNGS: Clear to auscultation bilaterally, no wheeze, no rhonchi, breath sounds equal. HEART: 2/6 systolic murmur, regular rate and rhythm. Chest: The patient has a 10 or so centimeter mass to the right upper chest wall just inferior to the clavicle. Along the lateral aspect of this lesion is erythema and I believe some fluctuance. There is some tenderness with palpation. Some warmth is present. No drainage. ABDOMEN: Soft, nontender, no peritonitis. EXTREMITIES: No cyanosis, full range of motion of all the joints without pain or difficulty. NEUROLOGIC: Oriented x 3, no acute motor or sensory deficits, no focal weakness. SKIN: No jaundice, no diaphoresis. Somewhat pale. DIFFERENTIAL DIAGNOSIS: Abscess, cellulitis, pneumonia, UTI, bacteremia/sepsis, among others. EMERGENCY DEPARTMENT PROCEDURES: MEDICAL DECISION MAKING: There is a significant leukocytosis at 21,000, this would be consistent with infection. The patient is anemic. His value today is lower than baseline however, he does carry a history of anemia. Platelet count slightly high at 406. There is no renal failure or significant electrolyte abnormality. Lactic acid level was not elevated making severe sepsis less likely. Chest x-ray did not show pneumonia or CHF. Chest CT did not show any obvious abscess. A mass to the right chest wall was noted. On exam, the patient had an obvious cellulitis in the area of the right upper chest wall on the outside aspect of his chest mass. Patient received IV cefepime and IV vancomycin. Given the patient's history of bacteremia and sepsis, given the high white blood cell count, given his laryngeal cancer diagnosis and the findings of cellulitis, I do think a hospital stay for IV antibiotic therapy is warranted. I spoke with the patient and his family, I spoke with case management. The on- call hospitalist was consulted. Of note, I did call and speak with the patient's cancer group in [place]. I left a message on the voicemail for Dr. Bravo. Prior/Outside records/notes reviewed: Discharge summary from 08/04/2023 describing his presentation for bacteremia in the treatment during the hospital stay. Imaging/x-ray results per my interpretation: Chest x-ray does not show mediastinal widening, pneumonia or pneumothorax. Chronic Medical/Social conditions affecting care: History of tracheostomy with laryngeal cancer. Advanced age. Care/Management discussed with: Case management, the on-call hospitalist. Level of care consideration(s): After review of the information above and other included data: --I believe the patient requires escalation of care to admission DISPOSITION: Admission Past Med/Surg History Problem List (Updated 09/21/23 @ 16:15 by Joby Brooks MD) Anemia (Acute) Tracheostomy in place (Acute) Leukocytosis (Acute) Laryngeal cancer (Acute) Cellulitis (Acute) 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 Severe sepsis Bacteremia due to Enterococcus (Acute) Sepsis Aspiration pneumonia (Acute) Aspiration pneumonia (Acute) Acute dyspnea (Acute) History of laryngectomy Aspiration pneumonia Multifocal pneumonia (Acute) Tracheostomy in place (Acute) Tracheobronchitis Hypoxia (Acute) SSS (sick sinus syndrome) (Chronic) History of CVA (cerebrovascular accident) (Chronic) February 2018, no deficits Tracheostomy in place (Acute) COPD (chronic obstructive pulmonary disease) Acute hypoxemic respiratory failure Peripheral eosinophilia Elevated troponin (Acute) Stenosis of left internal carotid artery History of cataract surgery (Chronic) H/O repair of right rotator cuff (Chronic) Anxiety (Chronic) 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 Symptoms were resolving by the time the patient arrived in the ED. 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 on CPAP no longer on CPAP post tracheostomy Surgical History History of laryngectomy Hx of laryngectomy History of bronchoscopy History of tonsillectomy History of carotid endarterectomy RIGHT (MARCH 2018) History of cataract extraction with lens replacement cataract extraction with IOL implant and LRI left eye - 05/02/12 History of colonoscopy with polypectomy History of rotator cuff surgery Right - 2009 History of coronary artery bypass graft X2 VESSEL 1995 -- Himanshu LEIJA Family History Mother Essential hypertension Stroke Sister Cancer Breast cancer Daughter Cancer Colon cancer Social History Smoking Status: Former smoker Tobacco Type: Cigarettes Second Hand Exposure: No; Do You Dip or Chew Tobacco: No; Hx Alcohol Use: No Hx Substance Use: No Preferred Language: Nicaraguan Communication Ability: Effective Communication Ability Comment: write answers to questions, unable to talk yet Visual Impairment: No 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 Beliefs That Will Affect Care: None marital status: Current Living Situation: Spouse Current Living Situation Comment: lives at home with current occupational status: retired Feels Safe at Home: Yes Assistive Devices: None Allergies Allergies Allergy/AdvReac Type Severity Reaction Status Date / Time rosuvastatin [From Crestor] Allergy Unknown Unknown Verified 09/21/23 14:02 Home Meds Home Medications Medication Instructions Recorded Confirmed levothyroxine 125 mcg tablet 125 mcg PO QAM 03/25/18 09/21/23 nitroglycerin 0.4 mg sublingual 1 tab sublingual UD PRN Chest Pain 03/25/18 09/21/23 tablet paroxetine HCl 20 mg tablet (Paxil) 20 mg PO HS 03/25/18 09/21/23 clopidogrel 75 mg tablet 75 mg PO QAM 06/03/18 09/21/23 ipratropium 0.5 mg-albuterol 3 mg 3 ml inhalation QID PRN Shortness 06/09/19 09/21/23 (2.5 mg base)/3 mL nebulization Of Breath Or Wheezing soln albuterol sulfate 2.5 mg/3 mL 2.5 mg inhalation QID PRN 08/19/19 09/21/23 (0.083 %) solution for nebulization Shortness Of Breath Or Wheezing atorvastatin 40 mg tablet (Lipitor) 40 mg PO QAM 01/13/20 09/21/23 polyethylene glycol 3350 17 gram 17 g PO DAILY PRN Constipation 11/02/20 09/21/23 oral powder packet (Miralax) acetaminophen 500 mg tablet 1,000 mg PO QID PRN Fever Or Pain 09/13/21 09/21/23 (Tylenol Extra Strength) apixaban 5 mg tablet (Eliquis) 5 mg PO BID 09/13/21 09/21/23 budesonide 0.5 mg/2 mL suspension 0.5 mg inhalation DAILY 09/13/21 09/21/23 for nebulization (Pulmicort) metoprolol succinate 25 mg 25 mg PO DAILY 09/13/21 09/21/23 tablet,extended release 24 hr omeprazole 20 mg capsule,delayed 20 mg PO DAILY 07/24/23 09/21/23 release fluorouracil 5 % topical cream 1 applic topical DIRECTED 09/21/23 09/21/23 iron,carbonyl 65 mg-vitamin C 125 1 tab PO DAILY 09/21/23 09/21/23 mg tablet,delayed release (Vitron-C) Results & Data (ED) Vital Signs Vital Signs - 24 hr 09/21/23 11:01 09/21/23 12:00 09/21/23 12:27 Temperature 37 C Temperature Source Temporal Artery Scan Pulse Rate 69 61 Pulse Rate [Apical] Pulse Rhythm [Apical] Pulse Strength [Apical] Respiratory Rate 22 Respiratory Effort / Characteristics Non-Labored Respiratory Depth Normal Respiratory Pattern Blood Pressure 123/56 L Blood Pressure [Right Arm] 130/69 Blood Pressure Mean 78 Blood Pressure Mean [Right Arm] 89 Blood Pressure Position [Right Arm] Lying Pulse Oximetry 94 Oxygen Delivery Method Room Air Room Air Sepsis Recent Fever Within 48 Hours Yes Sepsis New/Unexplained Change in Mental Status N/A Sepsis Action Taken by Nursing No Action Required 09/21/23 13:52 09/21/23 15:01 Temperature Temperature Source Pulse Rate Pulse Rate [Apical] 61 63 Pulse Rhythm [Apical] Regular Pulse Strength [Apical] Normal Respiratory Rate 20 18 Respiratory Effort / Characteristics Non-Labored Spontaneous Non-Labored Spontaneous Respiratory Depth Normal Normal Respiratory Pattern Regular Regular Blood Pressure Blood Pressure [Right Arm] 134/63 127/60 Blood Pressure Mean Blood Pressure Mean [Right Arm] 86 82 Blood Pressure Position [Right Arm] Lying Sitting Pulse Oximetry 94 96 Oxygen Delivery Method Room Air Room Air Sepsis Recent Fever Within 48 Hours Sepsis New/Unexplained Change in Mental Status Sepsis Action Taken by [facility] Medications Current Medication List: was personally reviewed by me Laboratory Data Attestation: I reviewed the patient's lab results. 09/21/23 11:18 09/21/23 11:18 Lab Results 09/21/23 Range/Units 11:18 WBC 21.04 H (4.8-10.8) K/ul RBC 3.12 L (4.70-6.10) M/uL Hgb 9.4 L (14.0-18.0) g/dl Hct 28.6 L (42.0-52.0) % MCV 91.7 (80.0-100.0) fL MCH 30.1 (25.0-34.0) pg MCHC 32.9 (32.0-36.0) g/dL RDW Std Deviation 48.5 H (36.4-46.3) fL RDW Coeff of Sharda 14.4 (11.5-14.5) % Plt Count 406 H (130-400) K/uL MPV 9.0 L (9.4-12.4) fL Immature Gran % (Auto) 0.4 % Neut % (Auto) 85.8 % Lymph % (Auto) 4.2 % Harding % (Auto) 7.6 % Eos % (Auto) 1.6 % Baso % (Auto) 0.4 % Neut # (Auto) 18.05 H (1.40-6.50) K/uL Lymph # (Auto) 0.89 L (1.20-3.40) K/uL Harding # (Auto) 1.60 H (0.11-0.59) K/uL Eos # (Auto) 0.33 (0.00-0.50) K/uL Baso # (Auto) 0.09 (0.00-0.20) K/uL Immature Gran # (Auto) 0.08 (0.01-0.20) K/uL Sodium 133 L (136-145) mmol/L Potassium 3.8 (3.5-5.1) mmol/L Chloride 101 (98-107) mmol/L Carbon Dioxide 25 (21-32) mmol/L Anion Gap 7 (3-11) BUN 15 (6-23) mg/dl Creatinine 0.97 (0.6-1.4) mg/dl Est Cr Clr Drug Dosing 66.6 ml/min Est GFR ( Amer) 82.7 ml/min Est GFR (Non-Af Amer) 71.4 ml/min BUN/Creatinine Ratio 15.5 (10-20) Glucose 95 (70-99(Fasting)) mg/dl Lactate 1.6 (0.4-2.0) mmol/L Calcium 8.7 (8.6-10.3) mg/dl Magnesium 1.7 (1.7-2.4) mg/dl Total Bilirubin 0.6 (0.2-1.0) mg/dl AST 19 (13-39) U/L ALT 12 (7-52) U/L Alkaline Phosphatase 60 (34-104) U/L Total Protein 6.4 (6.0-8.3) gm/dl Albumin 3.1 L (3.4-5.0) gm/dl Globulin 3.3 (2.5-4.0) gm/dl Albumin/Globulin Ratio 0.9 (0.9-2) Procalcitonin 0.04 (0-0.5) ng/ml Administered Medications Sodium Chloride (Nss) 1,000 mls @ 125 mls/hr IV .Q8H STA Stop: 09/21/23 19:08 Last Admin: 09/21/23 11:30 Dose: 125 mls/hr Documented By: TNK Discontinued Medications Cefepime HCl (Maxipime) 2,000 mg in 20 mls @ 5 mls/min IV NOW STA; Protocol Stop: 09/21/23 11:13 Last Admin: 09/21/23 11:30 Dose: 5 mls/min Documented By: DEBORAHK Vancomycin HCl 2,250 mg/ (Sodium Chloride) 545 mls @ 200 mls/hr IV NOW ONE Stop: 09/21/23 16:05 Last Admin: 09/21/23 14:40 Dose: 200 mls/hr Documented By: DANIAL Ioversol (Optiray 320 100ml) 94 ml IV ONCE ONE Stop: 09/21/23 12:10 Last Admin: 09/21/23 12:09 Dose: 94 ml Documented By: GIOVANNIK Imaging Data Radiologist's Impression: Chest X-Ray 09/21/23 11:09 XR chest 1V portable CLINICAL HISTORY: Fever COMPARISON STUDY: Chest radiograph July 31, 2023. PET/CT August 19, 2023. FINDINGS: Dual-lead left subclavian pacer is in place. There are median sternotomy wires. Cardiomediastinal silhouette is unremarkable. Calcified right lung granuloma is present. There is no consolidation to suggest pneumonia. No pneumothorax or pleural effusion is present. A small hiatal hernia is present. IMPRESSION: No acute cardiopulmonary findings. ACT 112: Negative or not required by law. Electronically signed by: Russ Herzog M.D. 09/21/2023 12:[address] 09/21/23 11:17 CT OF THE CHEST WITH IV CONTRAST CLINICAL HISTORY: Right upper chest wall mass, poss abscess. COMPARISON STUDY: Chest CT July 24, 2023. Chest radiograph July 31, 2023. PET/CT August 19, 2023. TECHNIQUE: Following IV administration of 94 mL of Optiray, helical axial images of the chest were obtained. Sagittal and coronal reconstructions were viewed as well as maximal intensity projections on an independent 3-D workstation. Automated exposure control was utilized for the study. A dose lowering technique was utilized adhering to the principles of ALARA. CT DOSE: 1372.82 mGy.cm FINDINGS: Patient is status post laryngectomy. The postoperative appearance is unchanged. A right upper chest wall/infraclavicular mass has increased in size since PET/CT of August 19, 2023. This measures 8.4 x 6.7 cm, previously 6.4 x 5.7 cm. Subtle erosion of the undersurface of the right clavicle is developed. Adjacent stranding is again noted. A 2.6 cm exophytic component arising from the anterior aspect of the mass has developed. There is adjacent skin thickening. The mass appears partially necrotic. No enlarged mediastinal or hilar lymph nodes are present. A left subclavian pacer is in place. There is no pericardial effusion. Multiple small pulmonary nodules measuring up to 4 mm remain unchanged since prior chest CT. There are no new pulmonary nodules. Low-attenuation lesions within visualized portions of the kidneys represent cysts. IMPRESSION: 1. Increase in size of the right upper chest wall/infraclavicular mass since PET/CT of August 19, 2023. This is consistent with biopsy-proven metastatic disease. Mild adjacent stranding, similar to prior exam. However, associated skin thickening has developed. A superimposed infectious process would be difficult to exclude by CT. 2. No consolidation to suggest pneumonia. 3. No change in multiple small pulmonary nodules. These remain indeterminate but probably benign. ACT 112: Negative or not required by law. Electronically signed by: Russ Herzog M.D. 09/21/2023 12:53 PM Discharge Plan Visit Data Chief Complaint: Referred by Doctor Stated Complaint: HIGH WHIE BLOOD COUNT, REF BY DOC ED Provider: Joby Brooks Discharge Problem: Cellulitis, Laryngeal cancer, Leukocytosis, Tracheostomy in place, Anemia Patient Disposition: Admitted As Inpatient Condition: Fair Forms Stand Alone Forms: [employer] Prescriptions Prescriptions: No Action ipratropium-albuterol 0.5 mg-3 mg(2.5 mg base)/3 mL solution for nebulization 3 ml INH QID PRN (Reason: Shortness Of Breath Or Wheezing) paroxetine HCl [Paxil] 20 mg tablet 20 mg PO HS levothyroxine 125 mcg tablet 125 mcg PO QAM nitroglycerin 0.4 mg tablet, sublingual 1 tab Sublingual UD PRN (Reason: Chest Pain) Patient Comments: Never had to use albuterol sulfate 2.5 mg /3 mL (0.083 %) Solution For Nebulization 2.5 mg INHALATION QID PRN (Reason: Shortness Of Breath Or Wheezing) clopidogrel 75 mg tablet 75 mg PO QAM atorvastatin [Lipitor] 40 mg tablet 40 mg PO QAM acetaminophen [Tylenol Extra Strength] 500 mg Tablet 1,000 mg PO QID PRN (Reason: Fever Or Pain) budesonide [Pulmicort] 0.5 mg/2 mL Suspension For Nebulization 0.5 mg INHALATION DAILY metoprolol succinate 25 mg tablet extended release 24 hr 25 mg PO DAILY Eliquis 5 mg tablet 5 mg PO BID polyethylene glycol 3350 [Miralax] 17 gram powder in packet 17 g PO DAILY PRN (Reason: Constipation) fluorouracil 5 % Cream 1 applic TOPICAL DIRECTED Vitron-C 65 mg iron- 125 mg Tablet,Delayed Release (Dr/Ec) 1 tab PO DAILY omeprazole 20 mg capsule,delayed release(DR/EC) 20 mg PO DAILY Referrals Referrals: Neto Rasheed MD [Primary Care Provider] - Discharge Problem: Cellulitis Qualifiers: Site of cellulitis: trunk Site of cellulitis of trunk: chest wall Qualified Code(s): L03.313 - Cellulitis of chest wall Leukocytosis Qualifiers: Leukocytosis type: unspecified Qualified Code(s): D72.829 - Elevated white blood cell count, unspecified Anemia Qualifiers: Anemia type: unspecified type Qualified Code(s): D64.9 - Anemia, unspecified
[2023-09-21] MEDS: SODIUM CHLORIDE 0.9% 1,000 ML IV STA (11:30)
[2023-09-21] MEDS: CEFEPIME 2,000 MG/20 ML VIAL IV STA (11:30)
[2023-09-21 11:48] LABS: Basophils # (auto) 0.09 K/uL (0.00-0.20); Basophils % (auto) 0.4 %; Eosinophils # (auto) 0.33 K/uL (0.00-0.50); Eosinophils % (auto) 1.6 %; Hematocrit (blood only) 28.6 % (42.0-52.0); Hemoglobin 9.4 g/dl (14.0-18.0); Immature Granulocytes # (auto) 0.08 K/uL (0.01-0.20); Immature Granulocytes % (auto) 0.4 %; Lymphocytes # (auto) 0.89 K/uL (1.20-3.40); Lymphocytes % (auto) 4.2 %; Mean Corpuscular Hemoglobin 30.1 pg (25.0-34.0); Mean Corpuscular Hgb Conc 32.9 g/dL (32.0-36.0); Mean Corpuscular Volume 91.7 fL (80.0-100.0); Monocytes % (auto) 7.6 %; Neutrophils # (auto) 18.05 K/uL (1.40-6.50); Neutrophils % (auto) 85.8 %; Platelet Count 406 K/uL (130-400); RDW Coefficient of Variation 14.4 % (11.5-14.5); RDW Standard Deviation 48.5 fL (36.4-46.3); Red Blood Count 3.12 M/uL (4.70-6.10); White Blood Count 21.04 K/ul (4.8-10.8)
[2023-09-21 11:53] LABS: Albumin Globulin Ratio 0.9 (0.9-2); Albumin Level 3.1 gm/dl (3.4-5.0); BUN Creatinine Ratio 15.5 (10-20); Bilirubin,Total 0.6 mg/dl (0.2-1.0); Calcium 8.7 mg/dl (8.6-10.3); Creatinine Clr Calc Pharmacy 66.6 ml/min; Est GFR (African American) 82.7 ml/min; Est GFR (Non-African American) 71.4 ml/min; Globulin 3.3 gm/dl (2.5-4.0); Magnesium 1.7 mg/dl (1.7-2.4); Potassium 3.8 mmol/L (3.5-5.1); Total Protein 6.4 gm/dl (6.0-8.3)
[2023-09-21] MEDS: OPTIRAY 320 100ml IV ONE (12:09)
--- NOTE | 2023-09-21 12:51 | XRay Report ---
XR chest 1V portable CLINICAL HISTORY: Fever COMPARISON STUDY: Chest radiograph July 31, 2023. PET/CT August 19, 2023. FINDINGS: Dual-lead left subclavian pacer is in place. There are median sternotomy wires. Cardiomedia stinal silhouette is unremarkable. Calcified right lung granuloma is present. There is no consolidati on to suggest pneumonia. No pneumothorax or pleural effusion is present. A small hiatal hernia is pre sent. IMPRESSION: No acute cardiopulmonary findings. ACT 112: Negative or not required by law. Electronically signed by: Russ Herzog M.D. 09/21/2023 12:49 PM
--- NOTE | 2023-09-21 12:56 | CT Scan Report ---
CT OF THE CHEST WITH IV CONTRAST CLINICAL HISTORY: Right upper chest wall mass, poss abscess. COMPARISON STUDY: Chest CT July 24, 2023. Chest radiograph July 31, 2023. PET/CT August 19, 2023. TECHNIQUE: Following IV administration of 94 mL of Optiray, helical axial images of the chest were o btained. Sagittal and coronal reconstructions were viewed as well as maximal intensity projections o n an independent 3-D workstation. Automated exposure control was utilized for the study. A dose low ering technique was utilized adhering to the principles of ALARA. CT DOSE: 1372.82 mGy.cm FINDINGS: Patient is status post laryngectomy. The postoperative appearance is unchanged. A right up per chest wall/infraclavicular mass has increased in size since PET/CT of August 19, 2023. This measur es 8.4 x 6.7 cm, previously 6.4 x 5.7 cm. Subtle erosion of the undersurface of the right clavicle is developed. Adjacent stranding is again noted. A 2.6 cm exophytic component arising from the anterior aspect of the mass has developed. There is adjacent skin thickening. The mass appears partially necr otic. No enlarged mediastinal or hilar lymph nodes are present. A left subclavian pacer is in place. There is no pericardial effusion. Multiple small pulmonary nodules measuring up to 4 mm remain unchan ged since prior chest CT. There are no new pulmonary nodules. Low-attenuation lesions within visualiz ed portions of the kidneys represent cysts. IMPRESSION: 1. Increase in size of the right upper chest wall/infraclavicular mass since PET/CT of August 19, 2023 . This is consistent with biopsy-proven metastatic disease. Mild adjacent stranding, similar to prior exam. However, associated skin thickening has developed. A superimposed infectious process would be difficult to exclude by CT. 2. No consolidation to suggest pneumonia. 3. No change in multiple small pulmonary nodules. These remain indeterminate but probably benign. ACT 112: Negative or not required by law. Electronically signed by: Russ Herzog M.D. 09/21/2023 12:53 PM
[2023-09-21] MEDS ORDERED: VANCOMYCIN CONSULT ACTIVE PRN (13:22)
[2023-09-21] MEDS: VANCOMYCIN HCL 2,250 MG in SODIUM CHLORIDE 0.9% 500 ML IV ONE (14:40)
--- NOTE | 2023-09-21 16:21 | History & Physical Report ---
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 Cellulitis Right infraclavicular Mass Metastatic SCC Pt sent over by pcp after noted elevated WBC as high as 21K Was evaluated a few days ago for erythema to known right infraclavicular mass and had blood work done CT chest read of the infraclavicular mass states cannot rule out infection and was "consistent with biopsy-proven metastatic disease". It did not note a pneumonia UA pending Blood Cx x 2 sets pending Pt not septic at this time Received dose of Vancomycin and Cefepime in the ED Continue with Cefepime and Daptomycin Pt states he is due to have surgery for the mass in September with Dr Bravo at [facility]. 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 Pt went to PCP about 3 days for further evaluation of known Right infraclavicular mass. States that he is due to follow up at [facility] to have mass surgically addressed by a Dr Bravo there. However was concerned about progressive redness and pain. Had blood work done and states he was called and advised that his WBC was significantly elevated, and to present to the ED for further evaluation. History obtained from pt who has tracheostomy and writes down his thoughts or mouths or motions to communicate. He denies fevers, chills or night sweats. Notes no other systemic symptoms. States he has slight swelling in his lower extremities. Concerned about the elevated WBC and writes down his question of why would the white blood cell count be elevated. Glad that he is not currently septic as he notes he has been septic in the past. Would like his to receive updates, notes she would be arriving soon. Allergies Allergy/AdvReac Type Severity Reaction Status Date / Time rosuvastatin [From Crestor] Allergy Unknown Unknown Verified 09/21/23 14:02 Home Medications Medication Instructions Recorded Confirmed Type levothyroxine 125 mcg tablet 125 mcg PO QAM 03/25/18 09/21/23 History nitroglycerin 0.4 mg sublingual 1 tab sublingual UD PRN Chest Pain 03/25/18 09/21/23 History tablet paroxetine HCl 20 mg tablet (Paxil) 20 mg PO HS 03/25/18 09/21/23 History clopidogrel 75 mg tablet 75 mg PO QAM 06/03/18 09/21/23 History ipratropium 0.5 mg-albuterol 3 mg 3 ml inhalation QID PRN Shortness 06/09/19 09/21/23 History (2.5 mg base)/3 mL nebulization Of Breath Or Wheezing soln albuterol sulfate 2.5 mg/3 mL 2.5 mg inhalation QID PRN 08/19/19 09/21/23 History (0.083 %) solution for nebulization Shortness Of Breath Or Wheezing atorvastatin 40 mg tablet (Lipitor) 40 mg PO QAM 01/13/20 09/21/23 History polyethylene glycol 3350 17 gram 17 g PO DAILY PRN Constipation 11/02/20 09/21/23 History oral powder packet (Miralax) acetaminophen 500 mg tablet 1,000 mg PO QID PRN Fever Or Pain 09/13/21 09/21/23 History (Tylenol Extra Strength) apixaban 5 mg tablet (Eliquis) 5 mg PO BID 09/13/21 09/21/23 History budesonide 0.5 mg/2 mL suspension 0.5 mg inhalation DAILY 09/13/21 09/21/23 History for nebulization (Pulmicort) metoprolol succinate 25 mg 25 mg PO DAILY 09/13/21 09/21/23 History tablet,extended release 24 hr omeprazole 20 mg capsule,delayed 20 mg PO DAILY 07/24/23 09/21/23 History release fluorouracil 5 % topical cream 1 applic topical DIRECTED 09/21/23 09/21/23 Hi story iron,carbonyl 65 mg-vitamin C 125 1 tab PO DAILY 09/21/23 09/21/23 History mg tablet,delayed release (Vitron-C) Past Med/Surg History Problem List (Updated 09/21/23 @ 16:15 by Joby Brooks MD) Anemia (Acute) Tracheostomy in place (Acute) Leukocytosis (Acute) Laryngeal cancer (Acute) Cellulitis (Acute) 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 Severe sepsis Bacteremia due to Enterococcus (Acute) Sepsis Aspiration pneumonia (Acute) Aspiration pneumonia (Acute) Acute dyspnea (Acute) History of laryngectomy Aspiration pneumonia Multifocal pneumonia (Acute) Tracheostomy in place (Acute) Tracheobronchitis Hypoxia (Acute) SSS (sick sinus syndrome) (Chronic) History of CVA (cerebrovascular accident) (Chronic) February 2018, no deficits Tracheostomy in place (Acute) COPD (chronic obstructive pulmonary disease) Acute hypoxemic respiratory failure Peripheral eosinophilia Elevated troponin (Acute) Stenosis of left internal carotid artery History of cataract surgery (Chronic) H/O repair of right rotator cuff (Chronic) Anxiety (Chronic) 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 Symptoms were resolving by the time the patient arrived in the ED. 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 on CPAP no longer on CPAP post tracheostomy Surgical History History of laryngectomy Hx of laryngectomy History of bronchoscopy History of tonsillectomy History of carotid endarterectomy RIGHT (MARCH 2018) History of cataract extraction with lens replacement cataract extraction with IOL implant and LRI left eye - 05/02/12 History of colonoscopy with polypectomy History of rotator cuff surgery Right - 2009 History of coronary artery bypass graft X2 [facility] Family History Mother Essential hypertension Stroke Sister Cancer Breast cancer Daughter Cancer Colon cancer Social History Smoking Status: Former smoker Tobacco Type: Cigarettes Second Hand Exposure: No; Do You Dip or Chew Tobacco: No; Hx Alcohol Use: No Hx Substance Use: No Preferred Language: Iranian Communication Ability: Effective Communication Ability Comment: write answers to questions, unable to talk yet Visual Impairment: No Limitations Herbologist Required: No Beliefs That Will Affect Care: None marital status: Current Living Situation: Spouse Current Living Situation Comment: lives at home with current occupational status: retired Feels Safe at Home: Yes Assistive Devices: None Review of Systems Review of Systems: All systems reviewed & are unremarkable except as noted in Subjective Physical Exam Physical Exam: General: Alert, oriented. No acute distress, does not appear toxic Skin: Right infraclavicular mass with erythema streaking up towards the right clavicle and down to the chest, tender to palpation, some fluctuance noted Psych: Appropriate mood and affect Neuro: difficulty with speech in setting of trach HEENT: NC/AT, noted trach opening in neck Chest: As above, right infraclavicular mass with erythema streaking up towards the right clavicle and down to the chest, tender to palpation, some fluctuance noted CV: RRR Resp: no increased effort of breathing Abdomen: Soft, nontender Extremities: edema in lower extremities bilaterally. Results & Data Results & Data Vital Signs (Past 12 Hours) Vital Signs Temp Pulse Pulse Resp BP BP Pulse Ox 09/21/23 15:01 63 18 127/60 96 09/21/23 13:52 61 20 134/63 94 09/21/23 12:27 61 09/21/23 12:00 130/69 09/21/23 11:01 37 C 69 22 123/56 L 94 O2 Del Method 09/21/23 15:01 Room Air 09/21/23 13:52 Room Air 09/21/23 12:27 09/21/23 12:00 Room Air 09/21/23 11:01 Room Air Diagnostic Findings Chest X-Ray 09/21/23 11:09 XR chest 1V portable CLINICAL HISTORY: Fever COMPARISON STUDY: Chest radiograph July 31, 2023. PET/CT August 19, 2023. FINDINGS: Dual-lead left subclavian pacer is in place. There are median sternotomy wires. Cardiomediastinal silhouette is unremarkable. Calcified right lung granuloma is present. There is no consolidation to suggest pneumonia. No pneumothorax or pleural effusion is present. A small hiatal hernia is present. IMPRESSION: No acute cardiopulmonary findings. ACT 112: Negative or not required by law. Electronically signed by: Russ Herzog M.D. 09/21/2023 12:[address] 09/21/23 11:17 CT OF THE CHEST WITH IV CONTRAST CLINICAL HISTORY: Right upper chest wall mass, poss abscess. COMPARISON STUDY: Chest CT July 24, 2023. Chest radiograph July 31, 2023. PET/CT August 19, 2023. TECHNIQUE: Following IV administration of 94 mL of Optiray, helical axial images of the chest were obtained. Sagittal and coronal reconstructions were viewed as well as maximal intensity projections on an independent 3-D workstation. Automated exposure control was utilized for the study. A dose lowering technique was utilized adhering to the principles of ALARA. CT DOSE: 1372.82 mGy.cm FINDINGS: Patient is status post laryngectomy. The postoperative appearance is unchanged. A right upper chest wall/infraclavicular mass has increased in size since PET/CT of August 19, 2023. This measures 8.4 x 6.7 cm, previously 6.4 x 5.7 cm. Subtle erosion of the undersurface of the right clavicle is developed. Adjacent stranding is again noted. A 2.6 cm exophytic component arising from the anterior aspect of the mass has developed. There is adjacent skin thickening. The mass appears partially necrotic. No enlarged mediastinal or hilar lymph n odes are present. A left subclavian pacer is in place. There is no pericardial effusion. Multiple small pulmonary nodules measuring up to 4 mm remain unchanged since prior chest CT. There are no new pulmonary nodules. Low-attenuation lesions within visualized portions of the kidneys represent cysts. IMPRESSION: 1. Increase in size of the right upper chest wall/infraclavicular mass since PET/CT of August 19, 2023. This is consistent with biopsy-proven metastatic disease. Mild adjacent stranding, similar to prior exam. However, associated skin thickening has developed. A superimposed infectious process would be difficult to exclude by CT. 2. No consolidation to suggest pneumonia. 3. No change in multiple small pulmonary nodules. These remain indeterminate but probably benign. ACT 112: Negative or not required by law. Electronically signed by: Russ Herzog M.D. 09/21/2023 12:53 PM Code Status & VTE Plan VTE Prophylaxis Plan VTE Prophylaxis will be ordered: Yes (2) Cellulitis Site of cellulitis: trunk Site of cellulitis of trunk: chest wall Qualified Code(s): L03.313 - Cellulitis of chest wall
[2023-09-21] MEDS ORDERED: POLYETHYLENE (MIRALAX) 17 GM PACK PO PRN (18:31)
[2023-09-21] MEDS ORDERED: ALBUTEROL 0.083% NEBU SOLN 3 ML VIAL INH PRN (18:31)
[2023-09-21] MEDS ORDERED: ONDANSETRON INJ 2 MG/ML 2 ML VIAL IV PRN (18:37)
[2023-09-21] MEDS: ACETAMINOPHEN 500 MG TAB PO PRN (19:07)
[2023-09-21 19:49] LABS: Appearance Urine Clear (Clear); Bilirubin Urine Negative (Negative); Blood Urine Negative (Negative); Color Urine Yellow; Glucose Urine UA Negative (Negative); Ketones Urine Negative (Negative); Leukocyte Esterase Urine Negative (Negative); Nitrite Urine Negative (Negative); Protein Urine Negative (Negative); Specific Gravity Urine 1.016 (1.000-1.030); Urobilinogen Urine Negative (Negative); pH Urine 6.5 (4.5-7.5)
[2023-09-21] MEDS: DAPTOmycin 300 MG in SYRINGE 0 ML IV SCH (19:54)
[2023-09-21] MEDS: CEFEPIME 2,000 MG in SYRINGE 0 ML IV SCH (19:54)
[2023-09-21] MEDS: PARoxetine HCL 20 MG TAB PO SCH (19:55)
[2023-09-21] MEDS: APIXABAN 5 MG TABLET PO SCH (19:56)
[2023-09-22] MEDS: LEVOTHYROXINE SODIUM 125 MCG TABLET PO SCH (05:38)
[2023-09-22 06:48] LABS: Basophils # (auto) 0.09 K/uL (0.00-0.20); Basophils % (auto) 0.6 %; Eosinophils # (auto) 0.45 K/uL (0.00-0.50); Eosinophils % (auto) 2.8 %; Hematocrit (blood only) 25.7 % (42.0-52.0); Hemoglobin 8.2 g/dl (14.0-18.0); Immature Granulocytes # (auto) 0.08 K/uL (0.01-0.20); Immature Granulocytes % (auto) 0.5 %; Lymphocytes # (auto) 0.88 K/uL (1.20-3.40); Lymphocytes % (auto) 5.5 %; Mean Corpuscular Hemoglobin 29.2 pg (25.0-34.0); Mean Corpuscular Hgb Conc 31.9 g/dL (32.0-36.0); Mean Corpuscular Volume 91.5 fL (80.0-100.0); Mean Platelet Volume 9.1 fL (9.4-12.4); Monocytes # (auto) 1.14 K/uL (0.11-0.59); Monocytes % (auto) 7.1 %; Neutrophils # (auto) 13.35 K/uL (1.40-6.50); Neutrophils % (auto) 83.5 %; Platelet Count 357 K/uL (130-400); RDW Coefficient of Variation 14.3 % (11.5-14.5); RDW Standard Deviation 48.4 fL (36.4-46.3); Red Blood Count 2.81 M/uL (4.70-6.10); White Blood Count 15.99 K/ul (4.8-10.8)
[2023-09-22 07:10] LABS: Albumin Level 2.8 gm/dl (3.4-5.0); BUN Creatinine Ratio 15.4 (10-20); Bilirubin,Total 0.7 mg/dl (0.2-1.0); Calcium 8.3 mg/dl (8.6-10.3); Creatinine Clr Calc Pharmacy 70.7 ml/min; Est GFR (African American) 89.4 ml/min; Est GFR (Non-African American) 77.1 ml/min; Globulin 2.8 gm/dl (2.5-4.0); Potassium 3.7 mmol/L (3.5-5.1); Total Protein 5.6 gm/dl (6.0-8.3)
[2023-09-22 07:25] LABS: Folate (Folic Acid),Ser orPlas 9.05 ng/ml (>5.38)
[2023-09-22 07:29] LABS: Ferritin 205.2 ng/ml (8-388)
[2023-09-22] MEDS: BUDESONIDE 0.5 MG/2 ML VIAL (PULMICORT) INH SCH (07:51)
[2023-09-22] MEDS: PANTOprazole 40 MG TAB PO SCH (08:29)
[2023-09-22] MEDS: CLOPIDOGREL BISULFATE 75 MG TAB PO SCH (08:29)
[2023-09-22] MEDS: ASCORBIC ACID 500 MG TAB PO SCH (08:29)
[2023-09-22] MEDS: METOPROLOL SUCC 25MG EXT REL TAB PO SCH (08:29)
[2023-09-22] MEDS: FERROUS SULFATE 325 MG TAB PO SCH (08:33)
[2023-09-22] MEDS ORDERED: FERROUS SULFATE 325 MG TAB PO SCH (09:00)
[2023-09-22] MEDS: IRON SUCROSE 300 MG in SODIUM CHLORIDE 0.9% 250 ML IV ONE (10:50)
--- NOTE | 2023-09-22 11:32 | Hospitalist Progress Note ---
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 Cellulitis Right infraclavicular Mass Metastatic SCC Pt sent over by pcp after noted elevated WBC as high as 21K Was evaluated a few days ago for erythema to known right infraclavicular mass and had blood work done CT chest read of the infraclavicular mass states cannot rule out infection and was "consistent with biopsy-proven metastatic disease". UA pending-not suggestive of any infection Blood Cx x 2 sets pending Received dose of Vancomycin and Cefepime in the ED Continue with Cefepime and Daptomycin If MRSA screen is negative will discontinue daptomycin He is strongly desired to go home this afternoon if any of the blood culture report is not back yet He takes the risk of the condition getting any worse and if the blood culture is positive then he is willing to come back He has a strongly advised to stay another night to get the blood culture report back before definitive antibiotic can be given Pt states he is due to have surgery for the mass in September with Dr Bravo at [facility]. He will be discharged home this afternoon He will be discharged on oral Augmentin Preliminary blood cultures have been negative Anemia Pt with worsening of chronic anemia Hgb drop from 11.5 a month ago to 9.4 AM iron level, ferritin, folate and b12 Iron ferritin and saturation are low Will give 1 dose of intravenous Venofer with 300 mg today Hyponatremia Sodium of 133 Continue to monitor Hyponatremia is corrected at 137 as of 09/14/2023 Continue other home meds as ordered DVT prophylaxis: On eliquis Diet: Dispo: Med/Sug with tele Admission and Anticipated Discharge Date Admission Date: September 21, 2023 Subjective 09/22/2023 The patient was seen and examined in medical telemetry unit in the presence of the He has been feeling much better and the redness and swelling of the right upper chest wall cellulitis have improved a lot No fever and no chills and denies any other significant symptoms He definitely wants to go home today Review of Systems Review of Systems: All systems reviewed and are unremarkable except as noted below Physical Exam Physical Exam: Lying in bed comfortably Constitutional: well developed, well nourished and + ill appearing Eyes: PERRL, conjunctivae normal, anicteric sclerae ENMT: external ear and nose normal, oropharynx normal Neck: Has tracheotomy scar Respiratory: no respiratory distress Auscultation: lungs clear to auscultation bilaterally Cardiovascular: Rate/Rhythm: regular rate and regular rhythm; not tachycardic Heart Sounds: normal S1 and normal S2; no murmur Extremities: no edema Chest (Breasts): Chest: + mass (Right upper chest wall and adjoining area of clavicle. Associated cellulit); + abnormal inspection of chest Gastrointestinal (Abdomen): Inspection/Auscultation: normal bowel sounds; abdomen not distended Percussion/Palpation: abdomen soft; abdomen nontender Musculoskeletal: No acute arthritis involving any of the joints Neurologic: Nonverbal secondary to laryngectomy status. Moves all limbs without any focal neurodeficit Psychiatric: A+Ox3, euthymic affect Lymphatic: no cervical or axillary lymphadenopathy Results & Data Results & Data Vital Signs (Past 12 Hours) Vital Signs Temp Pulse Pulse Pulse Resp BP Pulse Ox 09/22/23 11:02 36.9 C 73 18 132/72 96 09/22/23 07:51 82 18 95 09/22/23 07:49 36.5 C 62 18 117/66 94 09/22/23 07:49 09/22/23 07:00 60 09/22/23 02:40 37.4 C 78 18 137/70 96 O2 Del Method 09/22/23 11:02 Room Air 09/22/23 07:51 Room Air 09/22/23 07:49 Room Air 09/22/23 07:49 Room Air 09/22/23 07:00 09/22/23 02:40 Room Air Laboratory Results Short CBC 09/21/23 09/22/23 Range/Units 11:18 06:05 WBC 21.04 H 15.99 H (4.8-10.8) K/ul Hgb 9.4 L 8.2 L (14.0-18.0) g/dl Hct 28.6 L 25.7 L (42.0-52.0) % Plt Count 406 H 357 (130-400) K/uL BMP 09/21/23 09/22/23 11:18 06:05 Sodium 133 L 137 Potassium 3.8 3.7 Chloride 101 104 Carbon Dioxide 25 26 BUN 15 14 Creatinine 0.97 0.91 Glucose 95 87 Calcium 8.7 8.3 L Liver Function 09/21/23 09/22/23 Range/Units 11:18 06:05 Total Bilirubin 0.6 0.7 (0.2-1.0) mg/dl AST 19 14 (13-39) U/L ALT 12 8 (7-52) U/L Alkaline Phosphatase 60 47 (34-104) U/L Albumin 3.1 L 2.8 L (3.4-5.0) gm/dl Urine 09/21/23 Range/Units 19:35 Urine Color Yellow Urine Appearance Clear (Clear) Urine pH 6.5 (4.5-7.5) Ur Specific [place] 1.016 (1.000-1.030) Urine Protein Negative (Negative) Urine Glucose (UA) Negative (Negative) Medications Administered Current Inpatient Medications Acetaminophen (Acetaminophen 500 Mg Tab) 1,000 mg PO Q8H PRN PRN Reason: Pain or Fever Stop: 10/21/23 18:36 Last Admin: 09/22/23 03:11 Dose: 1,000 mg Albuterol (Albuterol 0.083% Nebu Soln 3 Ml Vial) 2.5 mg INH QID PRN; Protocol PRN Reason: Shortness Of Breath Or Wheezing Stop: 10/21/23 18:30 Apixaban (Apixaban 5 Mg Tablet) 5 mg PO BID [facility] Stop: 10/21/23 20:59 Last Admin: 09/22/23 08:28 Dose: 5 mg Ascorbic Acid (Ascorbic Acid 500 Mg Tab) 250 mg PO DAILY [facility] Stop: 10/22/23 08:59 Last Admin: 09/22/23 08:29 Dose: 250 mg Budesonide (Budesonide 0.5 Mg/2 Ml Vial (Pulmicort)) 0.5 mg INH DAILY [facility] Stop: 10/22/23 08:59 Last Admin: 09/22/23 07:51 Dose: 0.5 mg Clopidogrel Bisulfate (Clopidogrel Bisulfate 75 Mg Tab) 75 mg PO QAM [facility] Stop: 10/22/23 08:59 Last Admin: 09/22/23 08:29 Dose: 75 mg Ferrous Sulfate (Ferrous Sulfate 325 Mg Tab) 325 mg PO DAILY [facility] Stop: 10/22/23 08:59 Last Admin: 09/22/23 08:33 Dose: 325 mg Cefepime HCl 2,000 mg/ Syringe 20 mls @ 5 mls/min IV Q8H [facility]; Protocol Stop: 09/28/23 18:59 Last Admin: 09/22/23 10:54 Dose: 5 mls/min Daptomycin 300 mg/ Syringe 6 mls @ 3 mls/min IV Q24H [facility]; Protocol Stop: 09/28/23 18:59 Last Admin: 09/21/23 19:54 Dose: 3 mls/min Iron Sucrose 300 mg/ Sodium (Chloride) 265 mls @ 176.667 mls/hr IV ONE ONE Stop: 09/22/23 11:44 Last Admin: 09/22/23 10:50 Dose: 176.7 mls/hr Levothyroxine Sodium (Levothyroxine Sodium 125 Mcg Tablet) [facility] Stop: 10/22/23 06:29 Last Admin: 09/22/23 05:38 Dose: 125 mcg Metoprolol Succinate (Metoprolol Succ 25mg Ext Rel Tab) 25 mg PO DAILY [facility] Stop: 10/22/23 08:59 Last Admin: 09/22/23 08:29 Dose: 25 mg Miscellaneous (Flurouracil 5% Cream--Order Awaiting Action) 1 each N/A QS [facility] Stop: 10/22/23 00:00 Last Admin: 09/22/23 08:29 Dose: Not Given Ondansetron HCl (Ondansetron Inj 2 Mg/Ml 2 Ml Vial) 4 mg IV Q6H PRN PRN Reason: Nausea And Vomiting Stop: 10/21/23 18:36 Pantoprazole Sodium (Pantoprazole 40 Mg Tab) 40 mg PO DAILY [facility] Stop: 10/22/23 08:59 Last Admin: 09/22/23 08:29 Dose: 40 mg Paroxetine HCl (Paroxetine Hcl 20 Mg Tab) 20 mg PO HS [facility] Stop: 10/21/23 20:59 Last Admin: 09/21/23 19:55 Dose: 20 mg Polyethylene Glycol (Polyethylene (Miralax) 17 Gm Pack) 17 gm PO DAILY PRN PRN Reason: Constipation Stop: 10/21/23 18:30 (2) Cellulitis Site of cellulitis: trunk Site of cellulitis of trunk: chest wall Qualified Code(s): L03.313 - Cellulitis of chest wall
[2023-09-22] MEDS: AMOXICILLIN/CLAVULANATE 875 MG TAB PO SCH (16:28)
--- NOTE | 2023-09-22 17:57 | Discharge Summary ---
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 Pt went to PCP about 3 days for further evaluation of known Right infraclavicular mass. States that he is due to follow up at [facility] to have mass surgically addressed by a Dr Bravo there. However was concerned about progressive redness and pain. Had blood work done and states he was called and advised that his WBC was significantly elevated, and to present to the ED for further evaluation. History obtained from pt who has tracheostomy and writes down his thoughts or mouths or motions to communicate. He denies fevers, chills or night sweats. Notes no other systemic symptoms. States he has slight swelling in his lower extremities. Concerned about the elevated WBC and writes down his question of why would the white blood cell count be elevated. Glad that he is not currently septic as he notes he has been septic in the past. Would like his to receive updates, notes she would be arriving soon. Admission Exam Per Admitting Provider Physical Exam: General: Alert, oriented. No acute distress, does not appear toxic Skin: Right infraclavicular mass with erythema streaking up towards the right clavicle and down to the chest, tender to palpation, some fluctuance noted Psych: Appropriate mood and affect Neuro: difficulty with speech in setting of trach HEENT: NC/AT, noted trach opening in neck Chest: As above, right infraclavicular mass with erythema streaking up towards the right clavicle and down to the chest, tender to palpation, some fluctuance noted CV: RRR Resp: no increased effort of breathing Abdomen: Soft, nontender Extremities: edema in lower extremities bilaterally. Principal Diagnosis Cellulitis right upper chest wall Discharge Exam Lying in bed comfortably Constitutional well developed, well nourished and + ill appearing Eyes PERRL, conjunctivae normal, anicteric sclerae ENMT external ear and nose normal, oropharynx normal Respiratory no respiratory distress Auscultation: lungs clear to auscultation bilaterally Cardiovascular Rate/Rhythm: regular rate and regular rhythm; not tachycardic Heart Sounds: normal S1 and normal S2; no murmur Extremities: no edema Chest (Breasts) Chest: + mass (Right upper chest wall and adjoining area of clavicle. Associated cellulit); + abnormal inspection of chest Gastrointestinal (Abdomen) Inspection/Auscultation: normal bowel sounds; abdomen not distended Percussion/Palpation: abdomen soft; abdomen nontender Psychiatric A+Ox3, euthymic affect Lymphatic no cervical or axillary lymphadenopathy Discharge Data Allergies Allergy/AdvReac Type Severity Reaction Status Date / Time rosuvastatin [From Crestor] Allergy Unknown Unknown Verified 09/21/23 14:02 Consultations 09/21/23 14:06 ED Decision to Admit Stat Ordered Studies 09/21/23 11:17 CT chest diagnostic w con Stat Hospital Course (1) Squamous cell carcinoma of thoracic region: (2) Cellulitis: Plan Pt is an 83-year-old male with PMH of COPD, sleep apnea, 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 Cellulitis Right infraclavicular Mass Metastatic SCC Pt sent over by pcp after noted elevated WBC as high as 21K Was evaluated a few days ago for erythema to known right infraclavicular mass and had blood work done CT chest read of the infraclavicular mass states cannot rule out infection and was "consistent with biopsy-proven metastatic disease". UA pending-not suggestive of any infection Blood Cx x 2 sets pending Received dose of Vancomycin and Cefepime in the ED Continue with Cefepime and Daptomycin If MRSA screen is negative will discontinue daptomycin He is strongly desired to go home this afternoon if any of the blood culture report is not back yet He takes the risk of the condition getting any worse and if the blood culture is positive then he is willing to come back He has a strongly advised to stay another night to get the blood culture report back before definitive antibiotic can be given Pt states he is due to have surgery for the mass in September with Dr Bravo at [facility]. He will be discharged home this afternoon He will be discharged on oral Augmentin Preliminary blood cultures have been negative Anemia Pt with worsening of chronic anemia Hgb drop from 11.5 a month ago to 9.4 AM iron level, ferritin, folate and b12 Iron ferritin and saturation are low Will give 1 dose of intravenous Venofer with 300 mg today Hyponatremia Sodium of 133 Continue to monitor Hyponatremia is corrected at 137 as of 09/14/2023 Continue other home meds as ordered DVT prophylaxis: On eliquis Diet: Dispo: Med/Sug with tele Total Time Total Time Spent Total Time Spent (In Minutes): 35 minutes Discharge Plan Discharge Items Patient Disposition: Home - Self-Care Reason For Visit: CELLULITIS Discharge Diagnosis: Cellulitis right upper chest wall Condition on Discharge: Fair Activity: Resume your previous activity Non-emergency contact: Primary Care Provider Call non-emergency contact if: you have any medication questions and your symptoms worsen Follow-up/Referrals: Neto Rasheed MD [Primary Care Provider] - (Your doctor's office will call you with an appointment within 7 days) Diet: Heart Healthy Addtl Attending Provider Instructions: Please take precautions to avoid falls Finish the course of antibiotic He can try some [id number] probiotics while you are on antibiotic Try to drink more fluid Please keep appointments with healthcare providers Pending Studies at Discharge: No Stand-Alone Forms: My [employer], Smoking Cessation Medications and DC Order Prescriptions: New amoxicillin-pot clavulanate 400-57 mg/5 mL suspension for reconstitution 10 ml PO BID 7 Days Qty: 140 0RF Continued ipratropium-albuterol 0.5 mg-3 mg(2.5 mg base)/3 mL solution for nebulization 3 ml INH QID PRN (Reason: Shortness Of Breath Or Wheezing) paroxetine HCl [Paxil] 20 mg tablet 20 mg PO HS levothyroxine 125 mcg tablet 125 mcg PO QAM nitroglycerin 0.4 mg tablet, sublingual 1 tab Sublingual UD PRN (Reason: Chest Pain) Patient Comments: Never had to use albuterol sulfate 2.5 mg /3 mL (0.083 %) Solution For Nebulization 2.5 mg INHALATION QID PRN (Reason: Shortness Of Breath Or Wheezing) clopidogrel 75 mg tablet 75 mg PO QAM atorvastatin [Lipitor] 40 mg tablet 40 mg PO QAM acetaminophen [Tylenol Extra Strength] 500 mg Tablet 1,000 mg PO QID PRN (Reason: Fever Or Pain) budesonide [Pulmicort] 0.5 mg/2 mL Suspension For Nebulization 0.5 mg INHALATION DAILY metoprolol succinate 25 mg tablet extended release 24 hr 25 mg PO DAILY Eliquis 5 mg tablet 5 mg PO BID polyethylene glycol 3350 [Miralax] 17 gram powder in packet 17 g PO DAILY PRN (Reason: Constipation) fluorouracil 5 % Cream 1 applic TOPICAL DIRECTED Vitron-C 65 mg iron- 125 mg Tablet,Delayed Release (Dr/Ec) 1 tab PO DAILY omeprazole 20 mg capsule,delayed release(DR/EC) 20 mg PO DAILY Discharge Orders: Discharge Order (Routine); Ordered 09/22/23 Ordered By: Nino Joseph/Other Patient Handouts: Anemia During Cancer, ED Bacteremia, Suspected (Adult), ED Cellulitis Admission Data Admit Date/Time: 09/21/23 16:18 Attending Provider: Nino Lai Admit Provider: Marian Bridges Primary Care Provider: Neto Rasheed Other Providers: Marian Bridges Other Interventions: Discharge Summary Assessment (RN) Last Done: 09/22/23 15:16
== END 2023-09-22 16:53 | disposition home or self-care (01) | DRG 603 ==
LOC: ED 10:57 → SUATTDRO 16:18 → 2N 16:18 → INTOOBSV 16:18 → 2N 18:04

== ENCOUNTER 2024-03-31 22:27 | Observation (INO) ==
[2024-04-01 00:18] LABS: Adenovirus PCR Not Detected (NotDetected); Bordetella parapertussis PCR Not Detected (NotDetected); Bordetella pertussis PCR Not Detected (NotDetected); Chlamydia pneumoniae PCR Not Detected (NotDetected); Coronavirus 229E PCR Not Detected (NotDetected); Coronavirus CoV-2 (COVID19)PCR Not Detected (NotDetected); Coronavirus HKU1 PCR Not Detected (NotDetected); Coronavirus NL63 PCR Not Detected (NotDetected); Coronavirus OC43PCR Not Detected (NotDetected); Human Metapneumovirus PCR Not Detected (NotDetected); Influenza A PCR Not Detected (NotDetected); Influenza B PCR Not Detected (NotDetected); Mycoplasma pneumoniae PCR Not Detected (NotDetected); Parainfluenza Virus 1 PCR Not Detected (NotDetected); Parainfluenza Virus 2 PCR Not Detected (NotDetected); Parainfluenza Virus 3 PCR Not Detected (NotDetected); Parainfluenza Virus 4 PCR Not Detected (NotDetected); Respiratory Syncytial VirusPCR Not Detected (NotDetected); Rhinovirus/Enterovirus PCR Not Detected (NotDetected)
[2024-04-01 00:39] LABS: Hematocrit (blood only) 31.3 % (42.0-52.0); Mean Corpuscular Hemoglobin 27.9 pg (25.0-34.0); Mean Corpuscular Hgb Conc 31.9 g/dL (32.0-36.0); Mean Corpuscular Volume 87.4 fL (80.0-100.0); Mean Platelet Volume 8.9 fL (9.4-12.4); Platelet Count 429 K/uL (130-400); RDW Coefficient of Variation 16.4 % (11.5-14.5); RDW Standard Deviation 52.9 fL (36.4-46.3); Red Blood Count 3.58 M/uL (4.70-6.10); White Blood Count 16.92 K/ul (4.8-10.8)
[2024-04-01 00:55] LABS: Albumin Level 3.6 gm/dl (3.4-5.0); BUN Creatinine Ratio 30.3 (10-20); Bilirubin,Total 0.4 mg/dl (0.2-1.0); Creatinine Clr Calc Pharmacy 65.8 ml/min; Potassium 3.3 mmol/L (3.5-5.1); Total Protein 7.4 gm/dl (6.0-8.3)
[2024-04-01 01:01] LABS: Basophils # (auto) 0.04 K/uL (0.00-0.20); Basophils % (auto) 0.2 %; Eosinophils # (auto) 0.31 K/uL (0.00-0.50); Eosinophils % (auto) 1.8 %; Immature Granulocytes # (auto) 0.09 K/uL (0.01-0.20); Immature Granulocytes % (auto) 0.5 %; Monocytes # (auto) 0.68 K/uL (0.11-0.59); Neutrophils % (auto) 90.5 %
[2024-04-01 01:02] LABS: Troponin I High Sensitivity 27.4 pg/ml (0-20)
--- NOTE | 2024-04-01 01:42 | XRay Report ---
Exam(s): XR CXR 1 VIEW EXAM: XR Chest, 1 View CLINICAL HISTORY: Reason for exam: Sepsis. TECHNIQUE: Frontal views of the chest. COMPARISON: 09/21/2023 FINDINGS: Lungs: No consolidation. Pleural space: No pleural effusion is seen. No pneumothorax. Heart: A pacemaker is again noted. The heart is normal in size.. Mediastinum: There is mild uncoiling of the thoracic aorta Bones/joints: There are degenerative changes in the spine.. IMPRESSION: No acute pulmonary disease. Findings appears similar to previous exam. Electronically signed by: Raphael Thomas MD 04/01/24 01:41 AM
--- NOTE | 2024-04-01 04:50 | History & Physical Report ---
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, right neck dissection, right subtotal thyroidectomy, s/p radiation therapy, continued skin destruction which required right pectoral flap and left thigh graft in 2019 at [facility], recurrence of cancer requiring tracheal stoma, CAD status post CABG, sick sinus syndrome status post permanent pacemaker, peripheral vascular disease status post surgery, hypertension, hyperlipidemia, CVA, bilateral carotid endarterectomy, chronic anemia, SCC on multiple areas, infection of right infraclavicular mass, palliative radiation therapy to the right anterior chest wall as well as neck region and currently on Keytruda comes from home because of mucous plugging of his tracheal stoma. Patient states about a week ago he had a fever for 1 to 2 days. At the time he was feeling lightheaded. Lately he was having a lot of mucus plugging. He could not suction it out from his tracheal stoma at home and was feeling short of breath. In the ER it was suctioned out and is feeling better. But his EKG showed ST depressions in inferolateral leads. His troponin was elevated at 27 repeat is 29. Respiratory bio fire negative. Lactate is okay. Has leukocytosis. Patient denies any chest pain or shortness of breath. Currently denies any headache. Vision is okay. Currently no runny nose. Currently febrile. No nausea. No abdominal pain. Normal bowel and bladder movements. Appetite is okay. Patient states he eats soft food. Ambulates okay and symptoms uses cane as per patient. Currently resting comfortably and hemodynamics are okay.Speaks in one words in very low voice or writes on a paper. Elevated troponin Initial troponin 27 repeat [address] depression inferolateral leads Patient currently symptomatic Will follow serial enzymes and echo Continue home Eliquis and Plavix Monitor on telemetry Consult cardiology in a.m. for for further recommendations Mucous plugging of tracheal stoma Patient states he had a fever about a week ago Mucous plug suctioned out in ER Feeling better Will monitor Leukocytosis Possible reactive Respite BioFire negative Procalcitonin negative Will follow repeat labs History of CAD status post CABG in 1995 On Plavix and Eliquis Chronic heart failure with preserved ejection fraction Moderate aortic stenosis Not on diuretics Monitor Will follow echo Paroxysmal atrial fibrillation Sick sinus syndrome Status post pacemaker On Eliquis History of hypertension Currently amlodipine, metoprolol and Flomax were held because of orthostatic hypotension as per cardiology notes Will monitor History of hyperlipidemia Patient self discontinued statin therapy per cardio notes Needs follow-up History of laryngeal cancer squamous cell Status post laryngectomy, right neck dissection, subtotal thyrotomy s/p radiation treatment Recurrence of cancer requiring tracheal stoma Squamous cell cancer in multiple areas s/p radiation treatment Currently on Keytruda Follows with heme-onc Peripheral vascular disease Bilateral carotid endarterectomy On Plavix Hypothyroidism On Synthyroid DVT prophylaxis On Eliquis Disposition Telemetry Full code per my discussion with the patient History of Present Illness Chief Complaint: Mucous plugging of tracheal stoma, abnormal EKG Primary Care Provider: Neto Rasheed MD 83-year-old male with past medical history significant for hypothyroidism, dyslipidemia, COPD, sleep apnea, 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, right neck dissection, right subtotal thyroidectomy, s/p radiation therapy, continued skin destruction which required right pectoral flap and left thigh graft in 2019 at [facility], recurrence of cancer requiring tracheal stoma, CAD status post CABG, sick sinus syndrome status post permanent pacemaker, peripheral vascular disease status post surgery, hypertension, hyperlipidemia, CVA, bilateral carotid endarterectomy, chronic anemia, SCC on multiple areas, infection of right infraclavicular mass, palliative radiation therapy to the right anterior chest wall as well as neck region and currently on Keytruda comes from home because of mucous plugging of his tracheal stoma. Patient states about a week ago he had a fever for 1 to 2 days. At the time he was feeling lightheaded. Lately he was having a lot of mucus plugging. He could not suction it out from his tracheal stoma at home and was feeling short of breath. In the ER it was suctioned out and is feeling better. But his EKG showed ST depressions in inferolateral leads. His troponin was elevated at 27 repeat is 29. Respiratory bio fire negative. Lactate is okay. Has leukocytosis. Patient denies any chest pain or shortness of breath. Currently denies any headache. Vision is okay. Currently no runny nose. Currently febrile. No nausea. No abdominal pain. Normal bowel and bladder movements. Appetite is okay. Patient states he eats soft food. Ambulates okay and symptoms uses cane as per patient. Currently resting comfortably and hemodynamics are okay.Speaks in one words in very low voice or writes on a paper. Past medical history. As mentioned above Past surgical history. Colonoscopy with biopsy. CABG in 1995. EGD with biopsy. Esophagoscopy. Cataract extraction. Laryngoscopy with biopsy. Muscle skin flap trunk. Laryngoscopy with biopsy. Partial removal of pharynx. Reconstruction of throat. Removal of neck lymph nodes. Removal of excess skin. Right rotator cuff repair. Repair of tracheostoma. Throat muscle surgery. Bilateral carotid endarterectomy. Tracheal puncture. Family history. . Quit smoking 1984. Smoked 2 pack a day for 30 years. Alcohol occasional. No drug use. Family history. Sister had breast cancer. Mother had eye problems. Glaucoma. Hypertension. Father had heart attack. Lung cancer. Maternal grandfather had gout. Allergies Allergy/AdvReac Type Severity Reaction Status Date / Time rosuvastatin [From Crestor] Allergy Unknown Unknown Verified 03/04/24 10:50 Home Medications Medication Instructions Recorded Confirmed Type levothyroxine 125 mcg tablet 125 mcg PO DAILYBB 03/25/18 03/31/24 History nitroglycerin 0.4 mg sublingual 1 tab sublingual UD PRN Chest Pain 03/25/18 03/31/24 History tablet paroxetine HCl 20 mg tablet (Paxil) 20 mg PO HS 03/25/18 03/31/24 History clopidogrel 75 mg tablet 75 mg PO QAM 06/03/18 03/31/24 History ipratropium 0.5 mg-albuterol 3 mg 3 ml inhalation QID 06/09/19 03/31/24 History (2.5 mg base)/3 mL nebulization soln albuterol sulfate 2.5 mg/3 mL 2.5 mg inhalation QID Shortness Of 08/19/19 03/31/24 History (0.083 %) solution for nebulization Breath Or Wheezing polyethylene glycol 3350 17 gram 17 g PO DAILY PRN Constipation 11/02/20 History oral powder packet (Miralax) apixaban 5 mg tablet (Eliquis) 5 mg PO AMHS 09/13/21 03/31/24 History omeprazole 20 mg capsule,delayed 20 mg PO DAILY PRN Heartburn 07/24/23 03/31/24 History release folic acid 1 mg tablet 1 mg PO DAILY 03/31/24 03/31/24 History iron,carbonyl 65 mg-vitamin C 125 1 tab PO QAM 03/31/24 03/31/24 History mg tablet,delayed release (Vitron-C) triamcinolone acetonide 0.1 % 1 applic topical BID 03/31/24 03/31/24 History topical cream Past Med/Surg History Problem List (Updated 04/01/24 @ 07:04 by Anu Saldana DO) Acute non-ST elevation myocardial infarction (NSTEMI) (Acute) Elevated troponin 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) Anemia (Acute) Tracheostomy in place (Acute) Leukocytosis (Acute) Laryngeal cancer (Acute) Cellulitis (Acute) 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 Severe sepsis Bacteremia due to Enterococcus (Acute) Sepsis Aspiration pneumonia (Acute) Aspiration pneumonia (Acute) Acute dyspnea (Acute) History of laryngectomy Aspiration pneumonia Multifocal pneumonia (Acute) Tracheostomy in place (Acute) Tracheobronchitis Hypoxia (Acute) SSS (sick sinus syndrome) (Chronic) History of CVA (cerebrovascular accident) (Chronic) February 2018, no deficits Tracheostomy in place (Acute) COPD (chronic obstructive pulmonary disease) Acute hypoxemic respiratory failure Peripheral eosinophilia Elevated troponin (Acute) Stenosis of left internal carotid artery History of cataract surgery (Chronic) H/O repair of right rotator cuff (Chronic) Anxiety (Chronic) 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 Dyslipidemia (Chronic) HTN (hypertension) (Chronic) GERD (gastroesophageal reflux disease) (Chronic) COPD (chronic obstructive pulmonary disease) (Chronic) Medical History Difficult airway for intubation H/o glidescope #4 with CEA 03/2018 Carotid artery stenosis with cerebral infarction over 8 weeks ago The patient presented to [facility] ED on 03/26/18 with expressive aphasia, left upper extremity numbness, left lower extremity weakness. Symptoms were resolving by the time the patient arrived in the ED. 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 on CPAP no longer on CPAP post tracheostomy Surgical History Hx of laryngectomy History of bronchoscopy History of tonsillectomy History of carotid endarterectomy RIGHT (MARCH 2018) History of cataract extraction with lens replacement cataract extraction with IOL implant and LRI left eye - 05/02/12 History of colonoscopy with polypectomy History of rotator cuff surgery Right - 2009 History of coronary artery bypass graft X2 [facility]ESSEL 1995 [facility] Family History Mother Essential hypertension Stroke Sister Cancer Breast cancer Daughter Cancer Colon cancer Social History Smoking Status: Former smoker Tobacco Type: Cigarettes packs per day: 2; Second Hand Exposure: No; Do You Dip or Chew Tobacco: No; Hx Alcohol Use: Yes Alcohol type: beer and hard liquor Hx Substance Use: No Preferred Language: Armenian Communication Ability: Effective Communication Ability Comment: write answers to questions, unable to talk Visual Impairment: No Limitations Transfer Engineer Required: No Beliefs That Will Affect Care: Spiritual marital status: Current Living Situation: Spouse Current Living Situation Comment: home with spouse current occupational status: retired How many Children do You have Comment: Son can help Other Information That Helps Us Care for You: No other: Home health nursing twice per week Feels Safe at Home: Yes Safety Concerns: Feels Safe At This Time Diet: regular during the past year weight has: decreased > 10 lbs Physical Activity Frequency: Does not Exercise Assistive Devices: Cane and Walker Review of Systems Review of Systems: All systems reviewed & are unremarkable except as noted in HPI & below Physical Exam Physical Exam: General- Noit in distress Head- atraumatic Eyes- PERRL. ENT- oropharynx clear. Neck- supple, no JVD, Tracheal stoma seen, No drainage seen Lungs- clear to auscultation no wheezing or crackles Heart- regular rhythm; no murmur, no gallop. Abdomen- normal bowel sounds, soft, nontender, no distension Extremities- no pretibial edema, no erythema seen. Neuro- alert, oriented ; PERRL, no facial palsy;obeys commands, moves extremities. Results & Data Results & Data Vital Signs (Past 12 Hours) Vital Signs Temp Pulse Pulse Resp BP BP Pulse Ox 04/01/24 02:45 83 22 163/74 H 95 04/01/24 02:30 80 20 166/73 H 94 04/01/24 02:15 73 20 143/68 H 94 04/01/24 02:00 74 20 152/78 H 94 04/01/24 01:45 77 23 144/70 H 96 04/01/24 01:30 76 20 137/66 95 04/01/24 01:15 78 20 137/67 94 04/01/24 01:00 74 20 135/60 95 04/01/24 00:45 78 22 141/68 H 95 04/01/24 00:30 83 22 143/65 H 94 04/01/24 00:15 81 25 H 122/66 95 04/01/24 00:00 78 22 152/69 H 96 03/31/24 23:45 80 26 H 121/74 95 03/31/24 23:30 86 24 166/80 H 95 03/31/24 23:22 95 03/31/24 23:15 85 22 191/82 H 97 03/31/24 23:00 37.1 C 03/31/24 22:43 122 H 03/31/24 22:42 03/31/24 22:42 88 18 97 03/31/24 22:42 88 18 192/82 H 98 03/31/24 22:42 97 03/31/24 22:40 100 H 03/31/24 22:30 36.8 C 25 H 165/75 H 92 O2 Del Method 04/01/24 02:45 04/01/24 02:30 04/01/24 02:15 04/01/24 02:00 04/01/24 01:45 04/01/24 01:30 04/01/24 01:15 04/01/24 01:00 04/01/24 00:45 04/01/24 00:30 04/01/24 00:15 04/01/24 00:00 03/31/24 23:45 03/31/24 23:30 03/31/24 23:22 Room Air 03/31/24 23:15 03/31/24 23:00 03/31/24 22:43 03/31/24 22:42 Room Air 03/31/24 22:42 Room Air 03/31/24 22:42 Room Air 03/31/24 22:42 Room Air 03/31/24 22:40 03/31/24 22:30 Room Air Diagnostic Findings Laboratory Results WBC 16.92 K/ul (4.8-10.8) H 04/01/24 00:07 RBC 3.58 M/uL (4.70-6.10) L 04/01/24 00:07 Hgb 10.0 g/dl (14.0-18.0) L 04/01/24 00:07 Hct 31.3 % (42.0-52.0) L 04/01/24 00:07 MCV 87.4 fL (80.0-100.0) 04/01/24 00:07 MCH 27.9 pg (25.0-34.0) 04/01/24 00:07 MCHC 31.9 g/dL (32.0-36.0) L 04/01/24 00:07 RDW Std Deviation 52.9 fL (36.4-46.3) H 04/01/24 00:07 RDW Coeff of Sharda 16.4 % (11.5-14.5) H 04/01/24 00:07 Plt Count 429 K/uL (130-400) H 04/01/24 00:07 MPV 8.9 fL (9.4-12.4) L 04/01/24 00:07 Immature Gran % (Auto) 0.5 % 04/01/24 00:07 Neut % (Auto) 90.5 % 04/01/24 00:07 Lymph % (Auto) 3.0 % 04/01/24 00:07 [place] % (Auto) 4.0 % 04/01/24 00:07 Eos % (Auto) 1.8 % 04/01/24 00:07 Baso % (Auto) 0.2 % 04/01/24 00:07 Neut # (Auto) 15.30 K/uL (1.40-6.50) H 04/01/24 00:07 Lymph # (Auto) 0.50 K/uL (1.20-3.40) L 04/01/24 00:07 [place] # (Auto) 0.68 K/uL (0.11-0.59) H 04/01/24 00:07 Eos # (Auto) 0.31 K/uL (0.00-0.50) 04/01/24 00:07 Baso # (Auto) 0.04 K/uL (0.00-0.20) 04/01/24 00:07 Immature Gran # (Auto) 0.09 K/uL (0.01-0.20) 04/01/24 00:07 Sodium 137 mmol/L (136-145) 04/01/24 00:07 Potassium 3.3 mmol/L (3.5-5.1) L 04/01/24 00:07 Chloride 104 mmol/L (98-107) 04/01/24 00:07 Carbon Dioxide 23 mmol/L (21-32) 04/01/24 00:07 Anion Gap 10 (3-11) 04/01/24 00:07 BUN 27 mg/dl (6-23) H 04/01/24 00:07 Creatinine 0.89 mg/dl (0.6-1.4) 04/01/24 00:07 Est Cr Clr Drug Dosing 65.8 ml/min 04/01/24 00:07 eGFR 84.50 04/01/24 00:07 BUN/Creatinine Ratio 30.3 (10-20) H 04/01/24 00:07 Glucose 93 mg/dl (70-99(Fasting)) 04/01/24 00:07 Lactate 1.8 mmol/L (0.4-2.0) 04/01/24 00:07 Calcium 9.0 mg/dl (8.6-10.3) 04/01/24 00:07 Magnesium 2.0 mg/dl (1.7-2.4) 04/01/24 00:07 Total Bilirubin 0.4 mg/dl (0.2-1.0) 04/01/24 00:07 Direct Bilirubin 0.0 mg/dl (0-0.2) 04/01/24 00:07 AST 22 U/L (13-39) 04/01/24 00:07 ALT 14 U/L (7-52) 04/01/24 00:07 Alkaline Phosphatase 79 U/L (34-104) 04/01/24 00:07 Troponin I High Sens 29.7 pg/ml (0-20) H 04/01/24 02:27 B-Natriuretic Peptide 262 pg/ml (0-100) H 04/01/24 00:07 Total Protein 7.4 gm/dl (6.0-8.3) 04/01/24 00:07 Albumin 3.6 gm/dl (3.4-5.0) 04/01/24 00:07 Lipase 12 U/L (11-82) 04/01/24 00:07 Procalcitonin 0.07 ng/ml (0-0.5) 04/01/24 00:07 Adenovirus (PCR) Not Detected (NotDetected) 03/31/24 23:20 B. pertussis DNA (PCR) Not Detected (NotDetected) 03/31/24 23:20 B.parapertussis DNA PCR Not Detected (NotDetected) 03/31/24 23:20 C. pneumoniae DNA (PCR) Not Detected (NotDetected) 03/31/24 23:20 Coronavirus OC43 (PCR) Not Detected (NotDetected) 03/31/24 23:20 Coronavirus HKU1 (PCR) Not Detected (NotDetected) 03/31/24 23:20 Coronavirus 229E (PCR) Not Detected (NotDetected) 03/31/24 23:20 SARS-CoV-2 (PCR) Not Detected (NotDetected) 03/31/24 23:20 Coronavirus NL63 (PCR) Not Detected (NotDetected) 03/31/24 23:20 Human Metapneumovir PCR Not Detected (NotDetected) 03/31/24 23:20 Influenza Type A (PCR) Not Detected (NotDetected) 03/31/24 23:20 Influenza Type B (PCR) Not Detected (NotDetected) 03/31/24 23:20 M. pneumoniae (PCR) Not Detected (NotDetected) 03/31/24 23:20 Parainfluenza 1 (PCR) Not Detected (NotDetected) 03/31/24 23:20 Parainfluenza 2 (PCR) Not Detected (NotDetected) 03/31/24 23:20 Parainfluenza 3 (PCR) Not Detected (NotDetected) 03/31/24 23:20 Parainfluenza 4 (PCR) Not Detected (NotDetected) 03/31/24 23:20 RSV (PCR) Not Detected (NotDetected) 03/31/24 23:20 Entero/Rhino (PCR) Not Detected (NotDetected) 03/31/24 23:20 Impressions Chest X-Ray 03/31/24 23:16 Exam(s): XR CXR 1 VIEW EXAM: XR Chest, 1 View CLINICAL HISTORY: Reason for exam: Sepsis. TECHNIQUE: Frontal views of the chest. COMPARISON: 09/21/2023 FINDINGS: Lungs: No consolidation. Pleural space: No pleural effusion is seen. No pneumothorax. Heart: A pacemaker is again noted. The heart is normal in size.. Mediastinum: There is mild uncoiling of the thoracic aorta Bones/joints: There are degenerative changes in the spine.. IMPRESSION: No acute pulmonary disease. Findings appears similar to previous exam. Electronically signed by: Raphael Thomas MD 04/01/24 01:41 AM ECG Additional Comments: ECG. Sinus tachycardia with first-degree AV block at rate of 102. Left ventricle hypertrophy. ST depressions in inferolateral leads. Code Status & VTE Plan VTE Prophylaxis Plan VTE Prophylaxis will be ordered: Yes
[2024-04-01] MEDS ORDERED: POLYETHYLENE (MIRALAX) 17 GM PACK PO PRN (05:13)
[2024-04-01] MEDS ORDERED: NITROGLYCERIN SL 0.4 MG/TAB TAB SL PRN (05:13)
[2024-04-01] MEDS: ACETAMINOPHEN 325 MG TAB PO PRN (05:46)
[2024-04-01] MEDS: POTASSIUM CHLORIDE 20 MEQ/15 ML UDC PO STA (05:54)
[2024-04-01] MEDS: LEVOTHYROXINE SODIUM 125 MCG TABLET PO SCH (05:54)
[2024-04-01] MEDS ORDERED: PNEUMOCOCCAL VACCINE (PCV20) 20-VAL CONJ-DIP CRM/PF 0.5 ML SYR IM ONE (06:22)
[2024-04-01] MEDS ORDERED: ALBUTEROL 0.083% NEBU SOLN 3 ML VIAL INH SCH (07:00)
--- NOTE | 2024-04-01 07:04 | Emergency Department Note ---
Impression & Plan Elevated troponin, Acute electrocardiogram changes patient will be admitted by the [facility] ED Provider Note NAME: ALEXANDRA PETERS AGE: 83 SEX: Male INFORMANT: Patient And his ED PROVIDER(S): Anu Saldana DO CHIEF COMPLAINT: increased secretions PLAN: Disposition: admit to the [facility] MEDICAL DECISION MAKING: this is an 83-year-old male patient with a a history of laryngectomy status post laryngeal cancer who presents to the emergency department with increased secretions and need for suctioning at home. Patient's explains that the patient has been fatigued and dizzy for the past 2 days and had a fever yesterday. Chest x-ray shows no acute findings. Laboratory studies reveal moderate leukocytosis with a white count of 16.9 H&H are stable. BUN is mildly elevated at 27. Creatinine is normal at 0.8. Lactate and procalcitonin were normal. Troponin is elevated at 27.4 and BNP was elevated at 262. Of most concern was the patient's EKG which showed significant ST segment depression and T wave inversion in the inferior and lateral leads. Patient denied any chest pain. I discussed the case with the [facility] and they will evaluate for further inpatient care Care/management discussed with: fermentation manager and [facility] Triage Nursing notes: reviewed and agree with them. Vital Signs: reviewed and remarkable for hypertension and tachycardia Additional History obtained from: Patient's who is at the bedside Chronic Medical/Social Conditions affecting care: History of laryngeal cancer with laryngectomy Differential Diagnosis: Sepsis, pneumonia, UTI, bronchitis, STEMI, heart failure Diagnostics, independently interpreted by me: ECG: Sinus tachycardia at a rate of 102 with first-degree AV block. There was ST segment depression and T wave inversion in the inferior and lateral leads in comparison to an EKG from June 2023. Cardiac Monitoring: Sinus tachycardia at a rate of 104 Imaging studies: Portable chest x-ray: No acute pulmonary infiltrates or consolidations as per my independent interpretation HPI: 83 year old Male arrives for evaluation of Increased secretions. the patient's describes increased secretions and need for suctioning at home. Patient's explains that the patient has been fatigued and dizzy for the past 2 days and had a fever yesterday. PAST MEDICAL HISTORY: See Below, PAST SURGICAL HISTORY: See Below, SOCIAL HISTORY: See Below, HOME MEDICATIONS: See list ALLERGIES: See list VITALS: See Below PHYSICAL EXAMINATION: HEENT: Head - normocephalic and atraumatic. Pupils are equal, round, and reactive to light. Extraocular eye muscles are intact, and sclera are anicteric. Nose - moist nasal mucosa without discharge. Mouth - moist buccal mucosa. Oropharynx is nonerythematous and there is no tonsillar exudate or edema noted. Neck: Supple; laryngeal opening with moderate secretions Heart: Tachycardic rate with a regular rhythm. There is a normal S1 and S2 with no murmurs, clicks, or gallops appreciated. Lungs: Clear to auscultation bilaterally with no wheezes, rales, or rhonchi. Abdomen: Soft, completely nontender, nondistended, with good bowel sounds. There are no palpable pulsatile masses or hepatosplenomegaly. There is no guarding, rigidity, or rebound noted. Extremities: No evidence of cyanosis, clubbing, or edema. There are easily palpable peripheral pulses. Skin: Moderately pale, warm and dry with good turgor and no rashes. Emergency Department course: The patient was evaluated in room B-7. A complete history and physical was performed. A septic protocol was performed. An order was placed for continuous cardiac monitoring. The patient was in a sinus tachycardia at a rate of 104. Respiratory therapy came to suction the patient's laryngeal. portable chest x-ray was performed. Twelve-lead EKG was obtained. 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) Anemia (Acute) Tracheostomy in place (Acute) Leukocytosis (Acute) Laryngeal cancer (Acute) Cellulitis (Acute) 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 Severe sepsis Bacteremia due to Enterococcus (Acute) Sepsis Aspiration pneumonia (Acute) Aspiration pneumonia (Acute) Acute dyspnea (Acute) History of laryngectomy Aspiration pneumonia Multifocal pneumonia (Acute) Tracheostomy in place (Acute) Tracheobronchitis Hypoxia (Acute) SSS (sick sinus syndrome) (Chronic) History of CVA (cerebrovascular accident) (Chronic) February 2018, no deficits Tracheostomy in place (Acute) COPD (chronic obstructive pulmonary disease) Acute hypoxemic respiratory failure Peripheral eosinophilia Elevated troponin (Acute) Stenosis of left internal carotid artery History of cataract surgery (Chronic) H/O repair of right rotator cuff (Chronic) Anxiety (Chronic) 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 Symptoms were resolving by the time the patient arrived in the ED. 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 on CPAP no longer on CPAP post tracheostomy Surgical History Hx of laryngectomy History of bronchoscopy History of tonsillectomy History of carotid endarterectomy RIGHT (MARCH 2018) History of cataract extraction with lens replacement cataract extraction with IOL implant and LRI left eye - 05/02/12 History of colonoscopy with polypectomy History of rotator cuff surgery Right - 2009 History of coronary artery bypass graft X2 VESSEL 1995 -- [facility] Family History Mother Essential hypertension Stroke Sister Cancer Breast cancer Daughter Cancer Colon cancer Social History Smoking Status: Former smoker Tobacco Type: Cigarettes packs per day: 2; Second Hand Exposure: No; Do You Dip or Chew Tobacco: No; Hx Alcohol Use: Yes Alcohol type: beer and hard liquor Hx Substance Use: No Preferred Language: Nepali Communication Ability: Effective Communication Ability Comment: write answers to questions, unable to talk Visual Impairment: No Limitations Developer Architect Required: No Beliefs That Will Affect Care: Spiritual marital status: Current Living Situation: Spouse Current Living Situation Comment: home with spouse current occupational status: retired How many Children do You have Comment: Son can help Other Information That Helps Us Care for You: No other: Home health nursing twice per week Feels Safe at Home: Yes Safety Concerns: Feels Safe At This Time Diet: regular during the past year weight has: decreased > 10 lbs Physical Activity Frequency: Does not Exercise Assistive Devices: Cane and Walker Allergies Allergies Allergy/AdvReac Type Severity Reaction Status Date / Time rosuvastatin [From Crestor] Allergy Unknown Unknown Verified 03/04/24 10:50 Home Meds Home Medications Medication Instructions Recorded Confirmed levothyroxine 125 mcg tablet 125 mcg PO DAILYBB 03/25/18 03/31/24 nitroglycerin 0.4 mg sublingual 1 tab sublingual UD PRN Chest Pain 03/25/18 03/31/24 tablet paroxetine HCl 20 mg tablet (Paxil) 20 mg PO HS 03/25/18 03/31/24 clopidogrel 75 mg tablet 75 mg PO QAM 06/03/18 03/31/24 ipratropium 0.5 mg-albuterol 3 mg 3 ml inhalation QID 06/09/19 03/31/24 (2.5 mg base)/3 mL nebulization soln albuterol sulfate 2.5 mg/3 mL 2.5 mg inhalation QID Shortness Of 08/19/19 03/31/24 (0.083 %) solution for nebulization Breath Or Wheezing polyethylene glycol 3350 17 gram 17 g PO DAILY PRN Constipation 11/02/20 03/31/24 oral powder packet (Miralax) apixaban 5 mg tablet (Eliquis) 5 mg PO AMHS 09/13/21 03/31/24 omeprazole 20 mg capsule,delayed 20 mg PO DAILY PRN Heartburn 07/24/23 03/31/24 release folic acid 1 mg tablet 1 mg PO DAILY 03/31/24 03/31/24 iron,carbonyl 65 mg-vitamin C 125 1 tab PO QAM 03/31/24 03/31/24 mg tablet,delayed release (Vitron-C) triamcinolone acetonide 0.1 % 1 applic topical BID 03/31/24 03/31/24 topical cream Results & Data (ED) Vital Signs Vital Signs - 24 hr 03/31/24 22:30 03/31/24 22:40 03/31/24 22:42 Temperature 36.8 C Temperature Source Temporal Artery Scan Pulse Rate 100 H Pulse Rate [Apical] Pulse Rhythm Pulse Rhythm [Apical] Pulse Strength [Apical] Respiratory Rate 25 H Respiratory Effort / Characteristics Respiratory Depth Normal Respiratory Pattern Blood Pressure 165/75 H Blood Pressure [Right Arm] Blood Pressure Mean 105 Blood Pressure Mean [Right Arm] Blood Pressure Position [Right Arm] Pulse Oximetry 92 97 Oxygen Delivery Method Room Air Room Air Sepsis Recent Fever Within 48 Hours Yes Sepsis New/Unexplained Change in Mental Status No Sepsis Action Taken by Nursing No Action Required 03/31/24 22:42 03/31/24 22:42 03/31/24 22:42 Temperature Temperature Source Pulse Rate 88 Pulse Rate [Apical] 88 Pulse Rhythm Regular Pulse Rhythm [Apical] Regular Pulse Strength [Apical] Normal Respiratory Rate 18 18 Respiratory Effort / Characteristics Non-Labored Spontaneous Non-Labored Spontaneous Respiratory Depth Normal Normal Respiratory Pattern Regular Blood Pressure Blood Pressure [Right Arm] 192/82 H Blood Pressure Mean Blood Pressure Mean [Right Arm] 118 Blood Pressure Position [Right Arm] Semi-fowlers Pulse Oximetry 98 97 Oxygen Delivery Method Room Air Room Air Room Air Sepsis Recent Fever Within 48 Hours Sepsis New/Unexplained Change in Mental Status Sepsis Action Taken by Nursing 03/31/24 22:43 03/31/24 23:00 03/31/24 23:15 Temperature 37.1 C Temperature Source Oral Pulse Rate 122 H 85 Pulse Rate [Apical] Pulse Rhythm Pulse Rhythm [Apical] Pulse Strength [Apical] Respiratory Rate 22 Respiratory Effort / Characteristics Respiratory Depth Respiratory Pattern Blood Pressure 191/82 H Blood Pressure [Right Arm] Blood Pressure Mean 118 Blood Pressure Mean [Right Arm] Blood Pressure Position [Right Arm] Pulse Oximetry 97 Oxygen Delivery Method Sepsis Recent Fever Within 48 Hours Sepsis New/Unexplained Change in Mental Status Sepsis Action Taken by Nursing 03/31/24 23:22 03/31/24 23:30 03/31/24 23:45 Temperature Temperature Source Pulse Rate 86 80 Pulse Rate [Apical] Pulse Rhythm Pulse Rhythm [Apical] Pulse Strength [Apical] Respiratory Rate 24 26 H Respiratory Effort / Characteristics Respiratory Depth Respiratory Pattern Blood Pressure 166/80 H 121/74 Blood Pressure [Right Arm] Blood Pressure Mean 92 89 Blood Pressure Mean [Right Arm] Blood Pressure Position [Right Arm] Pulse Oximetry 95 95 95 Oxygen Delivery Method Room Air Sepsis Recent Fever Within 48 Hours Sepsis New/Unexplained Change in Mental Status Sepsis Action Taken by Nursing 04/01/24 00:00 04/01/24 00:15 04/01/24 00:30 Temperature Temperature Source Pulse Rate 78 81 83 Pulse Rate [Apical] Pulse Rhythm Pulse Rhythm [Apical] Pulse Strength [Apical] Respiratory Rate 22 25 H 22 Respiratory Effort / Characteristics Respiratory Depth Respiratory Pattern Blood Pressure 152/69 H 122/66 143/65 H Blood Pressure [Right Arm] Blood Pressure Mean 96 84 91 Blood Pressure Mean [Right Arm] Blood Pressure Position [Right Arm] Pulse Oximetry 96 95 94 Oxygen Delivery Method Sepsis Recent Fever Within 48 Hours Sepsis New/Unexplained Change in Mental Status Sepsis Action Taken by Nursing 04/01/24 00:45 04/01/24 01:00 04/01/24 01:15 Temperature Temperature Source Pulse Rate 78 74 78 Pulse Rate [Apical] Pulse Rhythm Pulse Rhythm [Apical] Pulse Strength [Apical] Respiratory Rate 22 20 20 Respiratory Effort / Characteristics Respiratory Depth Respiratory Pattern Blood Pressure 141/68 H 135/60 137/67 Blood Pressure [Right Arm] Blood Pressure Mean 92 93 90 Blood Pressure Mean [Right Arm] Blood Pressure Position [Right Arm] Pulse Oximetry 95 95 94 Oxygen Delivery Method Sepsis Recent Fever Within 48 Hours Sepsis New/Unexplained Change in Mental Status Sepsis Action Taken by Nursing 04/01/24 01:30 04/01/24 01:45 04/01/24 02:00 Temperature Temperature Source Pulse Rate 76 77 74 Pulse Rate [Apical] Pulse Rhythm Pulse Rhythm [Apical] Pulse Strength [Apical] Respiratory Rate 20 23 20 Respiratory Effort / Characteristics Respiratory Depth Respiratory Pattern Blood Pressure 137/66 144/70 H 152/78 H Blood Pressure [Right Arm] Blood Pressure Mean 89 94 123 Blood Pressure Mean [Right Arm] Blood Pressure Position [Right Arm] Pulse Oximetry 95 96 94 Oxygen Delivery Method Sepsis Recent Fever Within 48 Hours Sepsis New/Unexplained Change in Mental Status Sepsis Action Taken by Nursing 04/01/24 02:15 04/01/24 02:30 04/01/24 02:45 Temperature Temperature Source Pulse Rate 73 80 83 Pulse Rate [Apical] Pulse Rhythm Pulse Rhythm [Apical] Pulse Strength [Apical] Respiratory Rate 20 20 22 Respiratory Effort / Characteristics Respiratory Depth Respiratory Pattern Blood Pressure 143/68 H 166/73 H 163/74 H Blood Pressure [Right Arm] Blood Pressure Mean 93 95 103 Blood Pressure Mean [Right Arm] Blood Pressure Position [Right Arm] Pulse Oximetry 94 94 95 Oxygen Delivery Method Sepsis Recent Fever Within 48 Hours Sepsis New/Unexplained Change in Mental Status Sepsis Action Taken by Nursing Laboratory Data 04/01/24 07:05 04/01/24 07:05 Lab Results 03/31/24 04/01/24 04/01/24 Range/Units 23:20 00:07 02:27 WBC 16.92 H (4.8-10.8) K/ul RBC 3.58 L (4.70-6.10) M/uL Hgb 10.0 L (14.0-18.0) g/dl Hct 31.3 L (42.0-52.0) % MCV 87.4 (80.0-100.0) fL MCH 27.9 (25.0-34.0) pg MCHC 31.9 L (32.0-36.0) g/dL RDW Std Deviation 52.9 H (36.4-46.3) fL RDW Coeff of Sharda 16.4 H (11.5-14.5) % Plt Count 429 H (130-400) K/uL MPV 8.9 L (9.4-12.4) fL Immature Gran % (Auto) 0.5 % Neut % (Auto) 90.5 % Lymph % (Auto) 3.0 % Cass % (Auto) 4.0 % Eos % (Auto) 1.8 % Baso % (Auto) 0.2 % Neut # (Auto) 15.30 H (1.40-6.50) K/uL Lymph # (Auto) 0.50 L (1.20-3.40) K/uL Cass # (Auto) 0.68 H (0.11-0.59) K/uL Eos # (Auto) 0.31 (0.00-0.50) K/uL Baso # (Auto) 0.04 (0.00-0.20) K/uL Immature Gran # (Auto) 0.09 (0.01-0.20) K/uL Sodium 137 (136-145) mmol/L Potassium 3.3 L (3.5-5.1) mmol/L Chloride 104 (98-107) mmol/L Carbon Dioxide 23 (21-32) mmol/L Anion Gap 10 (3-11) BUN 27 H (6-23) mg/dl Creatinine 0.89 (0.6-1.4) mg/dl Est Cr Clr Drug Dosing 65.8 ml/min eGFR 84.50 BUN/Creatinine Ratio 30.3 H (10-20) Glucose 93 (70-99(Fasting)) mg/dl Lactate 1.8 (0.4-2.0) mmol/L Calcium 9.0 (8.6-10.3) mg/dl Magnesium 2.0 (1.7-2.4) mg/dl Total Bilirubin 0.4 (0.2-1.0) mg/dl Direct Bilirubin 0.0 (0-0.2) mg/dl AST 22 (13-39) U/L ALT 14 (7-52) U/L Alkaline Phosphatase 79 (34-104) U/L Troponin I High Sens 27.4 H 29.7 H (0-20) pg/ml B-Natriuretic Peptide 262 H (0-100) pg/ml Total Protein 7.4 (6.0-8.3) gm/dl Albumin 3.6 (3.4-5.0) gm/dl Lipase 12 (11-82) U/L Procalcitonin 0.07 (0-0.5) ng/ml Adenovirus (PCR) Not Detected (NotDetected) B. pertussis DNA (PCR) Not Detected (NotDetected) B.parapertussis DNA PCR Not Detected (NotDetected) C. pneumoniae DNA (PCR) Not Detected (NotDetected) Coronavirus OC43 (PCR) Not Detected (NotDetected) Coronavirus HKU1 (PCR) Not Detected (NotDetected) Coronavirus 229E (PCR) Not Detected (NotDetected) SARS-CoV-2 (PCR) Not Detected (NotDetected) Coronavirus NL63 (PCR) Not Detected (NotDetected) Human Metapneumovir PCR Not Detected (NotDetected) Influenza Type A (PCR) Not Detected (NotDetected) Influenza Type B (PCR) Not Detected (NotDetected) M. pneumoniae (PCR) Not Detected (NotDetected) Parainfluenza 1 (PCR) Not Detected (NotDetected) Parainfluenza 2 (PCR) Not Detected (NotDetected) Parainfluenza 3 (PCR) Not Detected (NotDetected) Parainfluenza 4 (PCR) Not Detected (NotDetected) RSV (PCR) Not Detected (NotDetected) Entero/Rhino (PCR) Not Detected (NotDetected) Administered Medications Acetaminophen (Acetaminophen 325 Mg Tab) 650 mg PO Q4H PRN PRN Reason: Pain or Fever Stop: 05/01/24 05:12 Last Admin: 04/01/24 05:46 Dose: 650 mg Documented By: MADISON Albuterol (Albut/Ipratrop 3mg/0.5mg Neb 3 Ml Vial) 3 ml NEB Q6R [facility]; Protocol Stop: 05/01/24 11:04 Last Admin: 04/01/24 12:48 Dose: Not Given Documented By: Admin: 04/01/24 12:08 Dose: 3 ml Documented By: TITO Apixaban (Apixaban 5 Mg Tablet) 5 mg PO BID [facility] Stop: 05/01/24 08:59 Last Admin: 04/01/24 09:33 Dose: 5 mg Documented By: MADAN Ascorbic Acid (Ascorbic Acid 500 Mg Tab) 250 mg PO [facility] Stop: 05/01/24 08:59 Last Admin: 04/01/24 09:34 Dose: 250 mg Documented By: MADAN Clopidogrel Bisulfate (Clopidogrel Bisulfate 75 Mg Tab) 75 mg PO [facility] Stop: 05/01/24 08:59 Last Admin: 04/01/24 09:34 Dose: 75 mg Documented By: MADAN Ferrous Sulfate (Ferrous Sulfate 325 Mg Tab) 325 mg PO [facility] Stop: 05/01/24 08:59 Last Admin: 04/01/24 09:34 Dose: 325 mg Documented By: MADAN Folic Acid (Folic Acid 1 Mg Tab) 1 mg PO DAILY [facility] Stop: 05/01/24 08:59 Last Admin: 04/01/24 09:34 Dose: 1 mg Documented By: MADAN Ceftriaxone Sodium (Rocephin) 2,000 mg in 50 mls @ 100 mls/hr IV Q24H [facility] Stop: 04/03/24 07:59 Last Infusion: 04/01/24 10:03 Dose: Infused Documented By: Admin: 04/01/24 09:33 Dose: 100 mls/hr Documented By: MADAN Levothyroxine Sodium (Levothyroxine Sodium 125 Mcg Tablet) 125 mcg PO DAILYBB [facility] Stop: 05/01/24 06:29 Last Admin: 04/01/24 05:54 Dose: 125 mcg Documented By: MADISON Pantoprazole Sodium (Pantoprazole 40 Mg Tab) 40 mg PO DAILY PRN PRN Reason: Heartburn Stop: 05/01/24 05:25 Last Admin: 04/01/24 09:33 Dose: 40 mg Documented By: MADAN Sodium Chloride (Sodium Chlor 7% 4 Ml Neb) 4 ml NEB BIDR [facility] Stop: 05/01/24 10:59 Last Admin: 04/01/24 12:08 Dose: 4 ml Documented By: TITO Triamcinolone Acetonide (Triamcinolone Acet 0.1% Cr 15 Gm Tube) 1 appln TOP BID [facility] Stop: 05/01/24 08:59 Last Admin: 04/01/24 10:19 Dose: 1 appln Documented By: MADAN Discontinued Medications Albuterol (Albut/Ipratrop 3mg/0.5mg Neb 3 Ml Vial) 3 ml INH QIDR [facility]; Protocol Stop: 05/01/24 06:59 Last Admin: 04/01/24 10:44 Dose: 3 ml Documented By: Admin: 04/01/24 07:09 Dose: 3 ml Documented By: TITO Vancomycin HCl 1,500 mg/ (Sodium Chloride) 530 mls @ 200 mls/hr IV NOW ONE Stop: 04/01/24 11:17 Last Infusion: 04/01/24 12:58 Dose: Infused Documented By: Admin: 04/01/24 10:19 Dose: 200 mls/hr Documented By: MADAN Potassium Chloride (Potassium Chloride 20 Meq/15 Ml Udc) 40 meq PO NOW STA Stop: 04/01/24 04:46 Last Admin: 04/01/24 05:54 Dose: 40 meq Documented By: MADISON Imaging Data Radiologist's Impression: Chest X-Ray 03/31/24 23:16 Exam(s): XR CXR 1 VIEW EXAM: XR Chest, 1 View CLINICAL HISTORY: Reason for exam: Sepsis. TECHNIQUE: Frontal views of the chest. COMPARISON: 09/21/2023 FINDINGS: Lungs: No consolidation. Pleural space: No pleural effusion is seen. No pneumothorax. Heart: A pacemaker is again noted. The heart is normal in size.. Mediastinum: There is mild uncoiling of the thoracic aorta Bones/joints: There are degenerative changes in the spine.. IMPRESSION: No acute pulmonary disease. Findings appears similar to previous exam. Electronically signed by: Raphael Thomas MD 04/01/24 01:41 AM Discharge Plan Visit Data Chief Complaint: Chest Pain Stated Complaint: CHEST CONGESTION, POSS FOREIGN BODY ED Provider: Anu Saldana Discharge Problem: Elevated troponin, Acute electrocardiogram changes Patient Disposition: Admitted As Inpatient Discharge Instructions Interventions: ED Discharge Assessment Last Done: 04/01/24 04:38
[2024-04-01] MEDS: ALBUT/IPRATROP 3MG/0.5MG NEB 3 ML VIAL INH SCH (07:09)
[2024-04-01 07:31] LABS: Basophils # (auto) 0.05 K/uL (0.00-0.20); Basophils % (auto) 0.4 %; Eosinophils # (auto) 0.76 K/uL (0.00-0.50); Eosinophils % (auto) 5.7 %; Hematocrit (blood only) 26.7 % (42.0-52.0); Hemoglobin 8.9 g/dl (14.0-18.0); Immature Granulocytes # (auto) 0.05 K/uL (0.01-0.20); Immature Granulocytes % (auto) 0.4 %; Lymphocytes # (auto) 0.56 K/uL (1.20-3.40); Lymphocytes % (auto) 4.2 %; Mean Corpuscular Hemoglobin 28.4 pg (25.0-34.0); Mean Corpuscular Hgb Conc 33.3 g/dL (32.0-36.0); Mean Corpuscular Volume 85.3 fL (80.0-100.0); Mean Platelet Volume 8.9 fL (9.4-12.4); Monocytes # (auto) 0.97 K/uL (0.11-0.59); Monocytes % (auto) 7.2 %; Neutrophils # (auto) 10.99 K/uL (1.40-6.50); Neutrophils % (auto) 82.1 %; Platelet Count 372 K/uL (130-400); RDW Coefficient of Variation 16.3 % (11.5-14.5); RDW Standard Deviation 51.8 fL (36.4-46.3); Red Blood Count 3.13 M/uL (4.70-6.10); White Blood Count 13.38 K/ul (4.8-10.8)
[2024-04-01 07:58] LABS: Appearance Urine Clear (Clear); Bacteria Urine Automated None Seen (None Seen); Bilirubin Urine Negative (Negative); Blood Urine Negative (Negative); Cast Urine Automated 0-2 /lpf (0-2); Color Urine Yellow; Epithelial Cell Urine Auto 0-2 /hpf (0-2); Glucose Urine UA Negative (Negative); Ketones Urine Trace (Negative); Leukocyte Esterase Urine Negative (Negative); Nitrite Urine Negative (Negative); Protein Urine Trace (Negative); RBC Urine Automated 0-2 /hpf (0-2); Specific Gravity Urine 1.016 (1.000-1.030); Urobilinogen Urine Negative (Negative); WBC Urine Automated 0-5 /hpf (0-5); pH Urine 5.5 (4.5-7.5)
[2024-04-01] MEDS ORDERED: VANCOMYCIN CONSULT ACTIVE PRN (08:39)
--- NOTE | 2024-04-01 08:52 | Hospitalist Progress Note ---
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, right neck dissection, right subtotal thyroidectomy, s/p radiation therapy, continued skin destruction which [place] pectoral flap [place] [facility] [place] recurrence of cancer requiring tracheal stoma, CAD status post CABG, sick sinus syndrome status post permanent pacemaker, peripheral vascular disease status post surgery, hypertension, hyperlipidemia, CVA, bilateral carotid endarterectomy, chronic anemia, SCC on multiple areas, infection of right infraclavicular mass, palliative radiation therapy to the right anterior chest wall as well as neck region and currently on Keytruda comes from home because of mucous plugging of his tracheal stoma. Patient states about a week ago he had a fever for 1 to 2 days. At the time he was feeling lightheaded. Lately he was having a lot of mucus plugging. He could not suction it out from his tracheal stoma at home and was feeling short of breath. In the ER it was suctioned out and is feeling better. B Mucous plugging of tracheal stoma Patient presented to the hospital with mucous plugging of the tracheal stoma which was suctioned in the ED History of fever at home about a week ago as per patient. Leukocytosis present Chest x-ray does not show any infiltrate Urinalysis not suggestive of infection Will start him on empiric antibiotic with ceftriaxone and vancomycin given his history of Enterococcus faecium in June 2023 Discussed with patient with trial of hypertonic saline with duonebs for mucus plugs; patient agreeable Will follow-up on blood culture Elevated troponin Demand ischemia Initial troponin 27 repeat 29 EKG shows-Sinus tachycardia; ST depression inferolateral leads History of CABG Will obtain echocardiogram Continue on Plavix and paroxetine along with Eliquis. Patient was started on Eliquis in April 2020 Chronic heart failure with preserved ejection fraction Moderate aortic stenosis Not on diuretics Monitor Will follow echo Paroxysmal atrial fibrillation Sick sinus syndrome Status post pacemaker On Eliquis History of hypertension Currently amlodipine, metoprolol and Flomax were held because of orthostatic hypotension as per cardiology notes Monitor History of hyperlipidemia Patient self discontinued statin therapy per cardio notes Needs follow-up History of laryngeal cancer squamous cell Status post laryngectomy, right neck dissection, subtotal thyrotomy s/p radiation treatment Recurrence of cancer requiring tracheal stoma Squamous cell cancer in multiple areas s/p radiation treatment Currently on Keytruda Follows with heme-onc Peripheral vascular disease Bilateral carotid endarterectomy On Plavix Hypothyroidism On Synthyroid DVT prophylaxis On Eliquis Disposition Telemetry Full code DVT prophylaxis Eliquis Time spent evaluating patient, direct bedside care, chart review, placing orders, interpretation of diagnostic studies, discussion with consultants, patient, and family members, as well as other required patient management activities is 50 minutes Please note the above document was generated using voice recognition software. It may contain grammatical, syntax or spelling errors. Any formal questions or concerns about the content, text or information contained within the body of this dictation should be directly addressed to the provider for clarification Admission and Anticipated Discharge Date Admission Date: April 01, 2024 Subjective Patient seen and examined at bedside He is comfortable; not in distress Denies any fever or chills No significant events overnight Review of Systems Review of Systems: All systems reviewed & are unremarkable except as noted in Subjective Physical Exam Physical Exam: Constitutional: Awake, alert oriented x 3. Able to voice; writes for communication Neck: Tracheostomy with TEP present; no overlying swelling/redness over trach eostomy site/flap. Respiratory: normal respiratory effort, lungs clear to auscultation, no wheeze, rales, rhonchi. Normal insp/exp effort, no accessory muscle use Cardiovascular: S1-S2, no murmur Chest: normal inspection of chest Abdomen: Soft, nontender Musculoskeletal: Biopsy site bandaged on left arm. Skin: no rashes, warm and dry normal turgor Neurologic: PERRL, EOMI, accommodation nl, no face palsy, no dysarthria CN's II- XI intact bilaterally and moves all extremities Psychiatric: A+Ox3, euthymic affect Results & Data Results & Data Vital Signs (Past 12 Hours) Vital Signs Temp Pulse Pulse Resp BP BP BP 04/01/24 07:48 37.1 C 65 18 92/52 L 04/01/24 07:11 63 18 04/01/24 06:43 81 04/01/24 06:01 04/01/24 06:01 37.8 C H 92 H 20 165/77 H 04/01/24 05:13 37.8 C H 92 H 20 165/77 H 04/01/24 05:13 04/01/24 04:27 77 18 127/61 04/01/24 02:45 83 22 163/74 H 04/01/24 02:30 80 20 166/73 H 04/01/24 02:15 73 20 143/68 H 04/01/24 02:00 74 20 152/78 H 04/01/24 01:45 77 23 144/70 H 04/01/24 01:30 76 20 137/66 04/01/24 01:15 78 20 137/67 04/01/24 01:00 74 20 135/60 04/01/24 00:45 78 22 141/68 H 04/01/24 00:30 83 22 143/65 H 04/01/24 00:15 81 25 H 122/66 04/01/24 00:00 78 22 152/69 H 03/31/24 23:45 80 26 H 121/74 03/31/24 23:30 86 24 166/80 H 03/31/24 23:22 03/31/24 23:15 85 22 191/82 H 03/31/24 23:00 37.1 C 03/31/24 22:43 122 H 03/31/24 22:42 03/31/24 22:42 88 18 03/31/24 22:42 88 18 192/82 H 03/31/24 22:42 03/31/24 22:40 100 H 03/31/24 22:30 36.8 C 25 H 165/75 H Pulse Ox Pulse Ox O2 Del Method O2 Del Method O2 Flow Rate FiO2 04/01/24 07:48 93 Room Air, Trach Collar 04/01/24 07:11 93 Room Air, Trach Collar 8 21 04/01/24 06:43 04/01/24 06:01 Room Air 04/01/24 06:01 93 Room Air 04/01/24 05:13 93 Room Air 04/01/24 05:13 93 Room Air 04/01/24 04:27 96 04/01/24 02:45 95 04/01/24 02:30 94 04/01/24 02:15 94 04/01/24 02:00 94 04/01/24 01:45 96 04/01/24 01:30 95 04/01/24 01:15 94 04/01/24 01:00 95 04/01/24 00:45 95 04/01/24 00:30 94 04/01/24 00:15 95 04/01/24 00:00 96 03/31/24 23:45 95 03/31/24 23:30 95 03/31/24 23:22 95 Room Air 03/31/24 23:15 97 03/31/24 23:00 03/31/24 22:43 03/31/24 22:42 Room Air 03/31/24 22:42 97 Room Air 03/31/24 22:42 98 Room Air 03/31/24 22:42 97 Room Air 03/31/24 22:40 03/31/24 22:30 92 Room Air
[2024-04-01 09:16] LABS: Troponin I High Sensitivity 43.8 pg/ml (0-20)
[2024-04-01] MEDS: cefTRIAXone SODIUM 2,000 MG/50 ML BAG IV SCH (09:33)
[2024-04-01] MEDS: PANTOprazole 40 MG TAB PO PRN (09:33)
[2024-04-01] MEDS: APIXABAN 5 MG TABLET PO SCH (09:33)
[2024-04-01] MEDS: FOLIC ACID 1 MG TAB PO SCH (09:34)
[2024-04-01] MEDS: FERROUS SULFATE 325 MG TAB PO SCH (09:34)
[2024-04-01] MEDS: CLOPIDOGREL BISULFATE 75 MG TAB PO SCH (09:34)
[2024-04-01] MEDS: ASCORBIC ACID 500 MG TAB PO SCH (09:34)
[2024-04-01 09:46] LABS: BUN Creatinine Ratio 28.2 (10-20); Calcium 8.5 mg/dl (8.6-10.3); Creatinine Clr Calc Pharmacy 65.9 ml/min; Magnesium 1.9 mg/dl (1.7-2.4); Potassium 3.9 mmol/L (3.5-5.1)
[2024-04-01] MEDS: VANCOMYCIN HCL 1,500 MG in SODIUM CHLORIDE 0.9% 500 ML IV ONE (10:19)
[2024-04-01] MEDS: TRIAMCINOLONE ACET 0.1% CR 15 GM TUBE TOP SCH (10:19)
--- NOTE | 2024-04-01 11:14 | Pharmacy Report ---
Pharmacy PK ABX Note - Date of Service April 01, 2024 - Assessment and Plan Assessment 83 year old M receiving vancomcyin/ceftiaxone for treatment of empiric infection/fever. Pertinent microbiologic data includes: blood cultures pending. History of Enterococcus facium in blood (June 2023). Day # 1 of antimicrobial therapy. Plan Vancomycin * Loading dose: 1500 mg IV x 1 * Maintenance dose: 1500 mg IV every 24 hours starting 12/6 @ 1900 * Regimen is predicted to achieve target AUC/AURORA of 400-600 mg/L.hr * Level to be ordered if continued beyond 48 hours Pharmacy will continue to follow and will adjust dose/frequency as necessary. Thank you. Pharmacy has transitioned to AUC monitoring for vancomycin. AUC/AURORA is the preferred PK/PD target and is associated with decreased risk of nephrotoxicity compared to traditional trough targets.
--- NOTE | 2024-04-01 11:37 | Electrocardiogram Report ---
Test Reason : Blood Pressure : */* mmHG Vent. Rate : 102 BPM Atrial Rate : 102 BPM P-R Int : 216 ms QRS Dur : 92 ms QT Int : 326 ms P-R-T Axes : 80 82 -86 degrees QTcB Int : 424 ms Sinus tachycardia with 1st degree A-V block Left ventricular hypertrophy with repolarization abnormality Abnormal ECG When compared with ECG of 25-Jul-2023 10:52, Significant changes have occurred Confirmed by Michael Grey ([id number]) on 04/01/2024 11:37:12 AM Referred By: REFERRED SELF Confirmed By: Michael Grey
[2024-04-01] MEDS: ALBUT/IPRATROP 3MG/0.5MG NEB 3 ML VIAL NEB SCH (12:08)
[2024-04-01] MEDS: SODIUM CHLOR 7% 4 ML NEB NEB SCH (12:08)
[2024-04-01] MEDS: VANCOMYCIN HCL 1,500 MG in SODIUM CHLORIDE 0.9% 500 ML IV SCH (18:37)
[2024-04-01] MEDS: PARoxetine HCL 20 MG TAB PO SCH (20:45)
[2024-04-02 07:16] LABS: Basophils # (auto) 0.07 K/uL (0.00-0.20); Basophils % (auto) 0.5 %; Eosinophils # (auto) 1.59 K/uL (0.00-0.50); Eosinophils % (auto) 12.4 %; Hematocrit (blood only) 30.2 % (42.0-52.0); Hemoglobin 9.6 g/dl (14.0-18.0); Immature Granulocytes # (auto) 0.06 K/uL (0.01-0.20); Immature Granulocytes % (auto) 0.5 %; Lymphocytes # (auto) 1.04 K/uL (1.20-3.40); Lymphocytes % (auto) 8.1 %; Mean Corpuscular Hemoglobin 27.4 pg (25.0-34.0); Mean Corpuscular Hgb Conc 31.8 g/dL (32.0-36.0); Mean Corpuscular Volume 86.3 fL (80.0-100.0); Monocytes # (auto) 0.86 K/uL (0.11-0.59); Monocytes % (auto) 6.7 %; Neutrophils # (auto) 9.21 K/uL (1.40-6.50); Neutrophils % (auto) 71.8 %; Platelet Count 445 K/uL (130-400); RDW Coefficient of Variation 16.8 % (11.5-14.5); White Blood Count 12.83 K/ul (4.8-10.8)
[2024-04-02 07:43] LABS: BUN Creatinine Ratio 17.6 (10-20); Calcium 8.7 mg/dl (8.6-10.3); Creatinine Clr Calc Pharmacy 60.5 ml/min; Potassium 3.4 mmol/L (3.5-5.1)
--- NOTE | 2024-04-02 09:09 | Electrocardiogram Report ---
Test Reason : Blood Pressure : */* mmHG Vent. Rate : 69 BPM Atrial Rate : 69 BPM P-R Int : 194 ms QRS Dur : 94 ms QT Int : 464 ms P-R-T Axes : 76 80 62 degrees QTcB Int : 497 ms Atrial-paced rhythm Prolonged QT Abnormal ECG When compared with ECG of 31-Mar-2024 22:39, Electronic atrial pacemaker has replaced Sinus rhythm ST no longer depressed in Inferior leads ST no longer depressed in Anterolateral leads Confirmed by Marquise Whittaker ([id number]) on 04/02/2024 9:09:13 AM Referred By: REFERRED SELF Confirmed By: Marquise Whittaker
--- NOTE | 2024-04-02 09:26 | Hospitalist Progress Note ---
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, right neck dissection, right subtotal thyroidectomy, s/p radiation therapy, continued skin destruction which required right pectoral flap and left thigh graft in 2019 at [facility] [place], recurrence of cancer requiring tracheal stoma, CAD status post CABG, sick sinus syndrome status post permanent pacemaker, peripheral vascular disease status post surgery, hypertension, hyperlipidemia, CVA, bilateral carotid endarterectomy, chronic anemia, SCC on multiple areas, infection of right infraclavicular mass, palliative radiation therapy to the right anterior chest wall as well as neck region and currently on Keytruda comes from home because of mucous plugging of his tracheal stoma. Patient states about a week ago he had a fever for 1 to 2 days. At the time he was feeling lightheaded. Lately he was having a lot of mucus plugging. He could not suction it out from his tracheal stoma at home and was feeling short of breath. In the ER it was suctioned out and is feeling better. Mucous plugging of tracheal stoma Patient presented to the hospital with mucous plugging of the tracheal stoma which was suctioned in the ED History of fever at home about a week ago as per patient. Leukocytosis present on admission. Chest x-ray does not show any infiltrate Urinalysis not suggestive of infection Will start him on empiric antibiotic with ceftriaxone and vancomycin given his history of Enterococcus faecium in June 2023 Blood culture was negative for 24 hours. Patient is started on trial of hypertonic saline with DuoNebs for mucous plugging; reported improvement in the symptoms. Patient to be provided prescription for hypertonic saline nebs to be done at home. Elevated troponin Demand ischemia Initial troponin 27 repeat 29 EKG on admission-Sinus tachycardia; ST depression inferolateral leads History of CABG Continue on Plavix and paroxetine along with Eliquis. Patient was started on Eliquis in April 2020 Echocardiogram shows EF of 60 to 65% with grade 2 diastolic dysfunction. Moderate concentric LVH present. Repeat EKG showed atrial paced rhythm, no ST or T wave changes. Chronic heart failure with preserved ejection fraction Moderate aortic stenosis Not on diuretics Monitor Echo as above Paroxysmal atrial fibrillation Sick sinus syndrome Status post pacemaker On Eliquis History of hypertension Currently amlodipine, metoprolol and Flomax were held because of orthostatic hypotension as per cardiology notes Monitor History of hyperlipidemia Patient self discontinued statin therapy per cardio notes Needs follow-up History of laryngeal cancer squamous cell Status post laryngectomy, right neck dissection, subtotal thyrotomy s/p radiation treatment Recurrence of cancer requiring tracheal stoma Squamous cell cancer in multiple areas s/p radiation treatment Currently on Keytruda Follows with heme-onc Peripheral vascular disease Bilateral carotid endarterectomy On Plavix Hypothyroidism On Synthyroid DVT prophylaxis On Eliquis Disposition Telemetry Full code DVT prophylaxis Eliquis Time spent evaluating patient, direct bedside care, chart review, placing orders, interpretation of diagnostic studies, discussion with consultants, patient, and family members, as well as other required patient management activities is 50 minutes Please note the above document was generated using voice recognition software. It may contain grammatical, syntax or spelling errors. Any formal questions or concerns about the content, text or information contained within the body of this dictation should be directly addressed to the provider for clarification Admission and Anticipated Discharge Date Admission Date: April 01, 2024 Subjective Patient seen and examined at bedside. He is comfortable; not in distress. He has been able to tolerate hypertonic saline nebulization without any issues Vital signs remained stable; no significant events overnight Review of Systems Review of Systems: All systems reviewed & are unremarkable except as noted in Subjective Physical Exam Physical Exam: Constitutional: Awake, alert oriented x 3. Able to voice; writes for communication Neck: Tracheostomy no overlying swelling/redness over tracheostomy site/flap. Respiratory: normal respiratory effort, lungs clear to auscultation, no wheeze, rales, rhonchi. Normal insp/exp effort, no accessory muscle use Cardiovascular: S1-S2, no murmur Chest: normal inspection of chest Abdomen: Soft, nontender Skin: no rashes, warm and dry normal turgor Neurologic: PERRL, EOMI, accommodation nl, no face palsy, no dysarthria CN's II- XI intact bilaterally and moves all extremities Psychiatric: A+Ox3, euthymic affect Results & Data Results & Data Vital Signs (Past 12 Hours) Vital Signs Temp Pulse Pulse Resp BP BP Pulse Ox 04/02/24 07:17 36.9 C 88 16 148/74 H 96 04/02/24 06:53 80 16 97 04/02/24 04:17 108 H 04/02/24 02:35 36.5 C 64 16 117/66 97 04/02/24 00:34 60 18 95 04/01/24 23:12 37.1 C 64 16 126/69 96 O2 Del Method O2 Flow Rate FiO2 04/02/24 07:17 Trach Collar 04/02/24 06:53 Trach Collar 21 04/02/24 04:17 04/02/24 02:35 Room Air, Trach Collar 04/02/24 00:34 Trach Collar 6 21 04/01/24 23:12 Trach Collar
[2024-04-02 11:11] VITALS: BP 130/72; TEMP 98.2
[2024-04-02 12:51] VITALS: PULSE 78; RESP 18; O2SAT 98
--- NOTE | 2024-04-02 13:42 | Discharge Summary ---
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, right neck dissection, right subtotal thyroidectomy, s/p radiation therapy, continued skin destruction which required right pectoral flap and left thigh graft in 2019 at [facility] [place], recurrence of cancer requiring tracheal stoma, CAD status post CABG, sick sinus syndrome status post permanent pacemaker, peripheral vascular disease status post surgery, hypertension, hyperlipidemia, CVA, bilateral carotid endarterectomy, chronic anemia, SCC on m ultiple areas, infection of right infraclavicular mass, palliative radiation therapy to the right anterior chest wall as well as neck region and currently on Keytruda comes from home because of mucous plugging of his tracheal stoma. Patient states about a week ago he had a fever for 1 to 2 days. At the time he was feeling lightheaded. Lately he was having a lot of mucus plugging. He could not suction it out from his tracheal stoma at home and was feeling short of breath. In the ER it was suctioned out and is feeling better. But his EKG showed ST depressions in inferolateral leads. His troponin was elevated at 27 repeat is 29. Respiratory bio fire negative. Lactate is okay. Has leukocytosis. Patient denies any chest pain or shortness of breath. Currently denies any headache. Vision is okay. Currently no runny nose. Currently febrile. No nausea. No abdominal pain. Normal bowel and bladder movements. Appetite is okay. Patient states he eats soft food. Ambulates okay and symptoms uses cane as per patient. Currently resting comfortably and hemodynamics are okay.Speaks in one words in very low voice or writes on a paper. Past medical history. As mentioned above Past surgical history. Colonoscopy with biopsy. CABG in 1995. EGD with biopsy. Esophagoscopy. Cataract extraction. Laryngoscopy with biopsy. Muscle skin flap trunk. Laryngoscopy with biopsy. Partial removal of pharynx. Reconstruction of throat. Removal of neck lymph nodes. Removal of excess skin. Right rotator cuff repair. Repair of tracheostoma. Throat muscle surgery. Bilateral carotid endarterectomy. Tracheal puncture. Family history. . Quit smoking 1984. Smoked 2 pack a day for 30 years. Alcohol occasional. No drug use. Family history. Sister had breast cancer. Mother had eye problems. Glaucoma. Hypertension. Father had heart attack. Lung cancer. Maternal grandfather had gout. Admission Exam Per Admitting Provider General- Noit in distress Head- atraumatic Eyes- PERRL. ENT- oropharynx clear. Neck- supple, no JVD, Tracheal stoma seen, No drainage seen Lungs- clear to auscultation no wheezing or crackles Heart- regular rhythm; no murmur, no gallop. Abdomen- normal bowel sounds, soft, nontender, no distension Extremities- no pretibial edema, no erythema seen. Neuro- alert, oriented ; PERRL, no facial palsy;obeys commands, moves extremities. Principal Diagnosis Mucous plugging of tracheal stoma Discharge Exam Constitutional: Awake, alert oriented x 3. Able to voice; writes for communication Neck: Tracheostomy no overlying swelling/redness over tracheostomy site/flap. Respiratory: normal respiratory effort, lungs clear to auscultation, no wheeze, rales, rhonchi. Normal insp/exp effort, no accessory muscle use Cardiovascular: S1-S2, no murmur Chest: normal inspection of chest Abdomen: Soft, nontender Skin: no rashes, warm and dry normal turgor Neurologic: PERRL, EOMI, accommodation nl, no face palsy, no dysarthria CN's II- XI intact bilaterally and moves all extremities Psychiatric: A+Ox3, euthymic affect Discharge Data Allergies Allergy/AdvReac Type Severity Reaction Status Date / Time rosuvastatin [From Crestor] Allergy Unknown Unknown Verified 03/04/24 10:50 Consultations 04/01/24 02:17 ED Decision to Admit Stat Hospital Course (1) Elevated troponin: 83-year-old male with past medical history significant for hypothyroidism, dys lipidemia, COPD, sleep apnea, 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, right neck dissection, right subtotal thyroidectomy, s/p radiation therapy, continued skin destruction which required right pectoral flap and left thigh graft in 2019 at [facility] [place], recurrence of cancer requiring tracheal stoma, CAD status post CABG, sick sinus syndrome status post permanent pacemaker, peripheral vascular disease status post surgery, hypertension, hyperlipidemia, CVA, bilateral carotid endarterectomy, chronic anemia, SCC on multiple areas, infection of right infraclavicular mass, palliative radiation therapy to the right anterior chest wall as well as neck region and currently on Keytruda comes from home because of mucous plugging of his tracheal stoma. Patient states about a week ago he had a fever for 1 to 2 days. At the time he was feeling lightheaded. Lately he was having a lot of mucus plugging. He could not suction it out from his tracheal stoma at home and was feeling short of breath. Mucous plugging of tracheal stoma Patient presented to the hospital with mucous plugging of the tracheal stoma which was suctioned in the ED History of fever at home about a week ago as per patient. No fever doing the hospitalization Leukocytosis present on admission. Chest x-ray does not show any infiltrate Urinalysis not suggestive of infection Blood culture was negative for 24 hours. Patient is started on trial of hypertonic saline with DuoNebs for mucous plugging; reported improvement in the symptoms. Patient provided prescription for hypertonic saline nebs to be done at home. Elevated troponin Demand ischemia Initial troponin 27, uptrended to 40s and downtrended. EKG on admission-Sinus tachycardia; ST depression inferolateral leads History of CABG No complains of chest pain Continue on Plavix and paroxetine along with Eliquis. Echocardiogram shows EF of 60 to 65% with grade 2 diastolic dysfunction. Moderate concentric LVH present. Repeat EKG showed atrial paced rhythm, no ST or T wave changes. Please note the above document was generated using voice recognition software. It may contain grammatical, syntax or spelling errors. Any formal questions or concerns about the content, text or information contained within the body of this dictation should be directly addressed to the provider for clarification Total Time Total Time Spent Total Time Spent (In Minutes): 45 Total Time Includes: Examination of the Patient, Discharge Planning, Medication Reconciliation, Communication With Other Providers and Other Discharge Plan Discharge Items Patient Disposition: Home - Self-Care Reason For Visit: NSTEMI? Discharge Diagnosis: Mucous plugging of the tracheal stoma Activity: Resume your previous activity Non-emergency contact: Primary Care Provider Call non-emergency contact if: you have any medication questions and your symptoms worsen Follow-up/Referrals: Neto Rasheed MD [Primary Care Provider] - Diet: Regular Addtl Attending Provider Instructions: You were admitted to the hospital due to mucosal plugging of the tracheal stoma. You are treated with hypertonic saline nebulizer during the hospitalization. You are prescribed hypertonic saline nebulizer solution to be used twice a day as needed for mucous plugging. Please use regular breathing treatment right after use of hypertonic saline as hypertonic saline can cause bronchoconstriction. Follow-up with your primary care doctor as scheduled. Pending Studies at Discharge: No Stand-Alone Forms: [facility], Smoking Cessation Medications and DC Order Prescriptions: New sodium chloride 7 % Solution For Nebulization 4 ml NEB BIDR PRN (Reason: mucus plugging) Qty: 240 0RF Continued ipratropium-albuterol 0.5 mg-3 mg(2.5 mg base)/3 mL solution for nebulization 3 ml INH QID paroxetine HCl [Paxil] 20 mg tablet 20 mg PO HS levothyroxine 125 mcg tablet 125 mcg PO DAILYBB nitroglycerin 0.4 mg tablet, sublingual 1 tab Sublingual UD PRN (Reason: Chest Pain) Patient Comments: Never had to use albuterol sulfate 2.5 mg /3 mL (0.083 %) Solution For Nebulization 2.5 mg INHALATION QID clopidogrel 75 mg tablet 75 mg PO QAM Eliquis 5 mg tablet 5 mg PO AMHS polyethylene glycol 3350 [Miralax] 17 gram powder in packet 17 g PO DAILY PRN (Reason: Constipation) omeprazole 20 mg capsule,delayed release(DR/EC) 20 mg PO DAILY PRN (Reason: Heartburn) triamcinolone acetonide 0.1 % cream 1 applic TOPICAL BID Rx Instructions: to affected area as directed folic acid 1 mg Tablet 1 mg PO DAILY Vitron-C 65 mg iron- 125 mg Tablet,Delayed Release (Dr/Ec) 1 tab PO QAM Discharge Orders: Discharge Order (Routine); Ordered 04/02/24 Ordered By: Long Rodriguez Admission Data Admit Date/Time: 04/01/24 02:58 Attending Provider: Long Rodriguez Admit Provider: Hector Ramirez Primary Care Provider: Neto Rasheed Other Providers: Hector Ramirez Other Interventions: Discharge Summary Assessment (RN) Last Done: 04/02/24 12:21
--- OUTSIDE RECORDS SUMMARY | 2024-04-03 05:44 | External Medical Summary | Summary of Care ---
Author Name Unknown Organization [facility] Address [address] [place] [address] Phone [phone] Care Team Providers Care Pigment Processor Name Role Phone Neto Rasheed MD Primary Care Provider + Reason for Visit * Reason Onset Date Comments Test Results Lab 01/28/2024 Encounter Details Date Type Department Care Team (Late st Contact Info) Description 01/28/2024 Telephone General Internal Medicine [facility] [address] [place] [address] Neto Rasheed MD [address] [place] [address] Test Results Lab Allergies No known active allergiesdocumented as of this encounter (statuses as of 03/30/2024) Medications nitroglycerin (NITROSTAT) 0.4 MG SUBLIndications: CAD (coronary artery disease), [place] coronary artery,Chest pain,SOB (shortness of breath),Malaise and fatigue Place 1 Tab under the tongue every 5 minutes as needed for Pain, Chest. Max dose 3 tablets in 15 minutes 25 Tab 3 11/09/19 19 Active Additional Information Patient not taking.Informant: Patient, Reported on 11/27/2023 Misc. Devices MISC Cool mist humidification device 1 Each 05/02/19 20 Active Misc. Devices MISC Portable suction device 1 Each 05/02/19 20 Active Misc. Devices MISC Trach care cleaning kit 1 Each 05/02/19 20 Active Misc. Devices MISC Yankauer suction tips 10 Each 5 05/02/19 20 Active Misc. Devices MISC 12Fr flexible suction catheters 10 Each 5 05/02/19 20 Active Misc. Devices MISC Inner cannulas for Shiley size 10 cuffless laryngectomy tube 10 Each 5 05/02/19 20 Active polyethylene glycol 3350 (MIRALAX) packet Take 1 Packet by mouth daily. 14 Each 05/02/19 20 Active Additional Information Patient taking differently:17 g OralDAILY PRN, Constipation, Informant: Patient, Reported on 06/02/2022 Misc. Devices MISC Size 10 shiley laryngectomy tube 2 Each 5 08/09/19 20 Active Fluorouracil 5 % External Cream (Efudex)Indicati ons:Actinic keratosis Apply to rough spots on the scalp nightly x 2-4 weeks. 40 g 05/18/19 21 Active Misc. Devices one ultra voice 1 Each 06/15/19 21 Active Ipratropium-Albu terol 0.5-2.5 (3) MG/3ML Inhalation Solution (Duoneb)Indicati ons:COPD, moderate (HCC) Inhale via nebulizer 3 mL every 6 hours as needed for Wheezing. 360 mL 5 09/25/19 22 Active Sodium Chloride 0.9 % Inhalation Nebulization SolutionIndicati ons:Aspiration pneumonia of both lungs, unspecified aspiration pneumonia type, unspecified part of lung (HCC) Use as directed to clean tracheostomy 3 mL 3 10/04/19 22 Active Fluorouracil 5 % External Cream (Efudex) apply to left forearm twice daily for 3 weeks, then treat right forearm 40 g 1 07/01/19 23 Active PARoxetine HCl 20 MG Oral Tablet (pAXil) TAKE 1 TABLET BY MOUTH EVERY DAY 90 Tablet 3 04/03/20 23 Active Omeprazole 20 MG Oral Capsule Delayed Release (PriLOSEC)Indica tions:Gastroesop hageal reflux disease without esophagitis Take 1 Capsule by mouth in the morning. 90 Capsule 1 07/21/19 24 Active Ipratropium-Albu terol 0.5-2.5 (3) MG/3ML Inhalation Solution (Duoneb)Indicati ons:COPD, moderate (HCC) Inhale 3 mL via nebulizer in the morning and 3 mL at noon and 3 mL in the evening and 3 mL before bedtime. 360 mL 3 08/04/19 24 Active Albuterol Sulfate (2.5 MG/3ML) 0.083% Inhalation Nebulization Solution (Proventil)Indic ations:COPD, moderate (HCC) Inhale 1 Vial via nebulizer [...] BY MOUTH EVERY DAY 90 Tablet 1 09/14/19 24 Active Vitron-C 65-125 MG Oral Tablet (Iron-Vitamin C 65-125 mg per tab)Indications: Iron deficiency anemia, unspecified iron deficiency anemia type Take 1 Tablet by mouth in the morning. 09/17/19 24 Active Apixaban 5 MG Oral Tablet (Eliquis) Take 1 Tablet by mouth in the morning and 1 Tablet before bedtime. 60 Tablet 5 11/19/19 24 Active Folic Acid 1 MG Oral Tablet Take 1 Tablet by mouth in the morning. Active documented as of this encounter (statuses as of 03/30/2024) Active Problems Problem Noted Date Diagnosed Date [...] arrhythmia 07/09/2017 Bradycardia, sinus 06/04/2017 Dysphagia 06/19/2014 Overview (07/19/2015): ICD-10 update of inactive term History of gout 02/05/2012 CAD (coronary artery disease), [place] coronary a rtery 01/22/2012 Other voice and resonance disorders 10/30/2010 Dyslipidemia, goal LDL below 70 04/05/2009 Sleep apnea 11/14/2003 Overview (03/19/2004): + sleep apnea- rx'd with cpap 8 cm 10/28 AORTOCORONARY BYPASS STATUS(aka CABG) 09/19/2003 Overview (09/19/2003): 1995 CABG x 2 [facility] HISTORY OF TOBACCO USE(aka TOBACCO) 09/19/2003 HTN, goal below 140/90 Acquired hypothyroidism Anxiety states Overview (02/17/2017): ICD-10 update of inactive term documented as of this encounter (statuses as of 03/30/2024) Resolved Problems Problem Noted Date Diagnosed Date Resolved Date 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 Overview (03/27/2021): 2020 Stage 3a chronic kidney disease 03/05/2020 01/08/2023 Overview: Per CKD protocol - Per CKD protocol Hematoma of neck 12/12/2019 07/01/2022 Pre-diabetes 08/31/2019 09/08/2019 Kidney disease, chronic, sta ge III (GFR 30-59 ml/min) 08/08/2019 03/08/2020 Overview: Per CKD protocol Head and neck cancer 05/09/2019 022 Post-nasal drip 04/21/2018 02/08/2019 Overview (02/08/2019): Acute condition COPD, moderate 04/07/2018 04/10/2022 Overview: Per COPD GOLD Classification Disorder of larynx 01/05/2018 0 Overview (01/05/2018): 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 12/28/2014 08/14/2023 COPD, severity to be determined 09/22/2014 04/07/2018 Hallux rigidus 02/05/2012 12/31/2018 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/2011): 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 03/31/2011 03/06/2017 Cellulitis of neck 10/30/2010 8 Esophageal reflux 09/17/2009 07/04/2019 Mucositis due to antineoplastic therapy 09/17/2009 09/03/2017 Severe obesity with body mas s index (BMI) of 35.0 to 39.9 with serious comorbidity 07/23/2009 Overview (02/10/2018): Per Obesity Taxonomy ICD-10 update of inactive diagnosis Benign neoplasm of colon 11/15/200809/2017 Overview (11/29/2008): adenomatous/repeat colonoscopy in 5 yrs ADVANCE DIRECTIVE INFORMATION 09/06/2004 03/27/2021 Overview (12/04/2009): Yes, Patient instructed to provide copy of advance directive for provider to review and to be scanned into Electronic Medical Record Gout 09/19/2003 04/19/2018 Overview (09/19/2003): L 1st MCP History of laryngeal cancer 09/19/2003 07/21/2023 Overview (03/19/2004): 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 Cruz f/u Organic sleep disorder 09/19/200309/03 Actinic keratosis 09/19/2003 09/03/2017 OBESITY, UNSPECIFIED 08/30/2002 010 Overview (07/23/2009): Per Obesity Taxonomy PURE HYPERCHOLESTEROLEM 03/27 Overview (04/05/2009): Per Lipid Taxonomy. HTN, goal below 140/90 09/03 Overview (05/17/2009): Hypertension Benign documented as of this encounter (statuses as of 03/30/2024) Immunizations Name Administration Dates Next Due COVID-19 [...] 65+ Yrs, IM (FLUAD) 02/23/2020 Seasonal Influenza Vac., MDV , IM, 0.5 mL (Fluzone) 01/20/2013,01/22/2012,01/20/2011,03/08,12/26/2008,03/07/2008 Seasonal Influenza Virus Vac cine, Unspecified Formulation 03/08/2021,02/23/2020,12/31/2018,03/08,03/06/2017,04/25/2016,01/20/2013 ,01/22/2012,01/20/2011,03/08/2010,0904/2008,03/07/2008,05/17/2001 Seasonal Influenza, PF, 6 M & above, IM , (FluLaval or Fluzone) 03/08/2018,03/06/2017 Seasonal Influenza, Quadriva lent Hd (Fluzone Hd) 01/08/2023,12/25/2021,03/08/2021 Seasonal Influenza, Quadriva lent, No Preserve, IM 04/25/2016 Seasonal Influenza, Trivalen t, Adjuvanted, 65+ YRS, PF, (Fluad) 12/31/2018 TDAP (age 10 and older)(Boostrix) 12/25/2014,04/2003 TDAP, Age 7 and older, IM (Adacel) 09/26/2003 documented as of this encounter Social [...] Assigned at Male 09/14/2018 5:16 PM EDT Legal Sex Male 6:02 AM EST Gender Identity Male 09/14/2018 5:16 PM EDT Sexual Orientation Straight 09/14/2018 5: 16 PM EDT Occupation Industry Job Start Date Job End Date [employer] Not on file Not on file Not on file documented as of this encounter Functional Status * Are you deaf or do you have serious difficulty hearing? Answer Date of Assessment Author No 12/06/2019 9:30 PM Noemi Lorenzo RN * Are you blind or do you have serious difficulty seeing, even when wearing glasses? Answer Date of Assessment Author No 04/30/2019 9:52 AM EST Sony Tapia RN * Do you have serious difficulty walking or climbing stairs? (5 years old or older) Answer Date of Assessment Author No 12/06/2019 9:30 PM Noemi Lorenzo RN * Do you have difficulty dressing or bathing? (5 years old or older) Answer Date of Assessment Author No 12/06/2019 9:30 PM Noemi Lorenzo RN * Because of a physical, mental, or emotional condition, do you have difficulty doing errands alone such as visiting a doctors office or shopping? (15 years old or older) Answer Date of Assessment Author No 12/06/2019 9:30 PM Noemi Lorenzo RN documented as of this encounter Mental Status * Because of a physical, mental, or emotional condition, do you have serious difficulty concentrating, remembering, or making decisions? (5 years old or older) Answer Entry Date Author No 12/06/2019 9:30 PM EDT Noemi Mascorro RN documented in this encounter Miscellaneous Notes * Telephone Encounter - Aracely Ruiz LPN - 02/04/2024 1:48 PM EDT Patient aware and verbalized understanding, will comply. * Telephone Encounter - Neto Rasheed MD - 01/28/2024 12:33 PM EDT Noted. Wouldn't change dose then, try to be compliant, will recheck labs 4 weeks to follow. * Telephone Encounter - Sarai Nazario CMA - 01/28/2024 9:42 AM EDT Spoke with patient's regarding message below, she states that he is not taking his medication correctly and regularly, she states that he is currently not compliant with any of his medications at this point. * Telephone Encounter - Sarai Nazario CMA - 01/28/2024 9:42 AM EDT ----- Message from Neto Rasheed MD sent at 01/21/2024 11:50 AM EDT ----- TSH is high, suggest, if taking med regularly, correctly (1st thing in am before all other med/food- 1 hour prior), then increase dose to 137 mcg daily, recheck tsh 4 weeks documented in this encounter Plan of Treatment Upcoming Encounters Date Type Department Care Team (Late st Contact Info) Description 06/21/2024 3:20 PM EST Office Visit General Internal Medicine [facility] [address] [facility] [place], [place] [address] Neto Rasheed MD [address] [facility] [place] [address] 07/14/2024 1:45 PM EDT Office Visit Dermatology [facility] [address] [facility] [place] [address] Bonnie Sawyer MD [address] [facility] [place] [address] 11/30/2024 11:00 AM EDT Cardiac Studies Cardiac Studies, [facility] [address] [facility] [place] [address] Health Maintenance Due Date Last Done Comments Alpha-1 Antitrypsin 1958 Zoster Vaccines (1 of 2) 1989 Adult Wellness Visit 11/07/2014 11/07/2013 COVID-19 Vaccine ( season) 2023 08/29/2021, 03/29/2021, 07/06/2020, Additional history exists Depression Monitoring 01/09/2024 01/08/2023 GFR 11/26/2024 11/27/2023, 08/26, 08/14/2023, Additional history exists DTap/Tdap Vaccines (6 - Td or Tdap) 12/25/2024 12/25/2014, 09/26/2003, 09/26/2003, Additional history exists TSH 01/17/2025 01/18/2024, 08/0 05/2023, 11/27/2023, Additional history exists O2 ASSESSMENT COMPLETED IN PAST YEAR FOR COPD 02/21/2025 02/22/2024 Albumin/Creatinine Ratio 07/22/2026 024, 08/22/2021, 12/26/2008 Pneumococcal Vaccine: 65+ Years Completed 04/25/2016, 10/31/2009 Influenza Vaccine (FLU shot) Completed , 01/08/2023, 12/25/2021, Additional history exists HPV (Gardasil) Vaccine Aged Out No lo nger eligible based on patient's age to complete this topic Hepatitis B Vaccine Aged Out No longe r eligible based on patient's age to complete this topic MENINGOCOCCAL (MENACTRA/MENVEO) Aged Out No longer eligible based on patient's age to complete this topic documented as of this encounter Medical Devices Implanted Type Area Forklift Material Handler Device Identifier Shelf Expiration Date Model / Serial / Lot Woundmatrix Fenstr [id number] (150 Units) - [id number] - [id number] Implanted:Qty: 150 on 04/18/2019 by Hayden Fleming MD at [place] [facility] [place] Left: Leg Upper [employer] [id number] 01/25/2020 [id number] / [id number] / [id number] Indwelling Voice Prosthesis Implanted:Qty: 1 on 10/26/2019 by Hayden Fleming MD at [place] [facility] [place] N/A: Throat 08/16/2021 1616-NS / / [id number] Description:INHEALTH TECHNOL OGIES REF : IN 1616-NS (HECTOR-NAZARIO) CLASSIC INDWELLING VOICE PROSTHESIS WITH INSERTION / CLEANING ACCESSORIES documented as of this encounter Advance Directives Documents on File Type Date Recorded Patient Tire Man Expl anation Power of Code Official 09/27/2018 POWER OF A TTORNEY * Full [...] and were consensually agreed upon. Care Teams Pigment Processor Relationship Specialty Start Date End Date Neto Rasheed MD [address] [facility] [place] [address] PCP - General Internal Medicine 02/14/21 documented as of this encounter
== END 2024-04-02 13:32 | disposition home or self-care (01) | DRG 206 ==
LOC: ED 22:27 → 2S 04-01 02:58 → INTOOBSV 04-01 02:58 → 2S 04-01 04:38

== ENCOUNTER 2024-04-13 10:28 | Observation (INO) ==
--- NOTE | 2024-04-13 11:50 | XRay Report ---
XR chest 1V portable HISTORY: 83 years-old Male vomiting/ possible aspiration COMPARISON: 03/31/2024 TECHNIQUE: AP view the chest FINDINGS: Cardiomediastinal and hilar silhouettes are within normal limits. Median sternotomy. Left subclavian pacer. Unchanged calcified granuloma in the right midlung. No pneumothorax, pleural effusion or airsp rupa consolidation. Spondylitic spurring of the spine. IMPRESSION: No acute process. ACT 112: Negative or not required by law. The above report was generated using voice recognition software. It may contain grammatical, syntax o r spelling errors. Electronically signed by: Andrew Siddiqui M.D. 04/13/2024 11:48 AM
[2024-04-13 11:55] LABS: Basophils # (auto) 0.07 K/uL (0.00-0.20); Basophils % (auto) 0.4 %; Eosinophils # (auto) 1.13 K/uL (0.00-0.50); Eosinophils % (auto) 6.6 %; Hemoglobin 9.8 g/dl (14.0-18.0); Immature Granulocytes # (auto) 0.08 K/uL (0.01-0.20); Immature Granulocytes % (auto) 0.5 %; Lymphocytes # (auto) 0.56 K/uL (1.20-3.40); Lymphocytes % (auto) 3.3 %; Mean Corpuscular Hemoglobin 28.3 pg (25.0-34.0); Mean Corpuscular Hgb Conc 32.7 g/dL (32.0-36.0); Mean Corpuscular Volume 86.7 fL (80.0-100.0); Mean Platelet Volume 9.3 fL (9.4-12.4); Monocytes # (auto) 0.76 K/uL (0.11-0.59); Monocytes % (auto) 4.4 %; Neutrophils # (auto) 14.52 K/uL (1.40-6.50); Neutrophils % (auto) 84.8 %; Platelet Count 394 K/uL (130-400); RDW Coefficient of Variation 16.4 % (11.5-14.5); Red Blood Count 3.46 M/uL (4.70-6.10); White Blood Count 17.12 K/ul (4.8-10.8)
[2024-04-13 12:26] LABS: INR 1.1 (0.9-1.1); Prothrombin Time 11.5 Seconds (9.0-12.0)
[2024-04-13 12:27] LABS: Potassium 3.9 mmol/L (3.5-5.1)
[2024-04-13 12:31] LABS: Albumin Level 3.5 gm/dl (3.4-5.0); BUN Creatinine Ratio 30.9 (10-20); Bilirubin,Total 0.5 mg/dl (0.2-1.0); Creatinine Clr Calc Pharmacy 72.3 ml/min; Globulin 3.6 gm/dl (2.5-4.0); Total Protein 7.1 gm/dl (6.0-8.3)
[2024-04-13] MEDS: PANTOprazole 80 MG in DEXTROSE 5% 100 ML IV STA (12:36)
[2024-04-13] MEDS: SODIUM CHLORIDE 0.9% 1,000 ML IV SCH (12:36)
--- NOTE | 2024-04-13 12:55 | Emergency Department Note ---
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 He was having outpatient lab work drawn when he became lightheaded and possibly lost consciousness for several seconds. Returned to baseline shortly afterwards. Patient stated this only happened when he got up from sitting. He also reports he had an episode of hematemesis 2 days prior and black stool. This has since resolved. He is on Eliquis at baseline. Denies any fevers, chills, chest pain, new cough or shortness of breath. He does report some mid abdominal pain that comes and goes that is new for him as well as decreased p.o. intake. He is tolerating only a few Ensure shakes per day. Home Medications Medication Instructions Recorded Confirmed Type levothyroxine 125 mcg tablet 125 mcg PO DAILYBB 03/25/18 04/13/24 History nitroglycerin 0.4 mg sublingual 1 tab sublingual UD PRN Chest Pain 03/25/18 04/13/24 History tablet paroxetine HCl 20 mg tablet (Paxil) 20 mg PO HS 03/25/18 04/13/24 History clopidogrel 75 mg tablet 75 mg PO QAM 06/03/18 04/13/24 History albuterol sulfate 2.5 mg/3 mL 2.5 mg inhalation QID PRN 08/19/19 04/13/24 History (0.083 %) solution for nebulization Shortness Of Breath Or Wheezing polyethylene glycol 3350 17 gram 17 g PO DAILY PRN Constipation 11/02/20 04/13/24 History oral powder packet (Miralax) apixaban 5 mg tablet (Eliquis) 5 mg PO AMHS 09/13/21 04/13/24 History omeprazole 20 mg capsule,delayed 20 mg PO DAILY PRN Heartburn 07/24/23 04/13/24 History release folic acid 1 mg tablet 1 mg PO DAILY 03/31/24 04/13/24 History iron,carbonyl 65 mg-vitamin C 125 1 tab PO QAM 03/31/24 04/13/24 History mg tablet,delayed release (Vitron-C) triamcinolone acetonide 0.1 % 1 applic topical BID 03/31/24 04/13/24 History topical cream sodium chloride 7 % for 4 ml NEB BIDR PRN mucus plugging 04/02/24 04/13/24 Rx nebulization #240 mL Allergies Allergy/AdvReac Type Severity Reaction Status Date / Time rosuvastatin [From Crestor] Allergy Unknown Unknown Verified 03/04/24 10:50 Past Med/Surg History Problem List (Updated 04/13/24 @ 16:03 by Keiko Mccann PA-C) Moderate aortic stenosis PVD (peripheral vascular disease) Abnormal computed tomography of abdomen and pelvis GI bleed Syncope Melena (Acute) Hematemesis (Acute) Elevated troponin (Acute) Elevated troponin 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) Anemia (Acute) Tracheostomy in place (Acute) Leukocytosis (Acute) Laryngeal cancer (Acute) Cellulitis (Acute) 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 Severe sepsis Bacteremia due to Enterococcus (Acute) Sepsis Aspiration pneumonia (Acute) Aspiration pneumonia (Acute) Acute dyspnea (Acute) History of laryngectomy Aspiration pneumonia Multifocal pneumonia (Acute) Tracheostomy in place (Acute) Tracheobronchitis Hypoxia (Acute) SSS (sick sinus syndrome) (Chronic) History of CVA (cerebrovascular accident) (Chronic) February 2018, no deficits Tracheostomy in place (Acute) COPD (chronic obstructive pulmonary disease) Acute hypoxemic respiratory failure Peripheral eosinophilia Elevated troponin (Acute) Stenosis of left internal carotid artery History of cataract surgery (Chronic) H/O repair of right rotator cuff (Chronic) Anxiety (Chronic) 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 Symptoms were resolving by the time the patient arrived in the ED. 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 on CPAP no longer on CPAP post tracheostomy Surgical History Hx of laryngectomy History of bronchoscopy History of tonsillectomy History of carotid endarterectomy RIGHT (MARCH 2018) History of cataract extraction with lens replacement cataract extraction with IOL implant and LRI left eye - 05/02/12 History of colonoscopy with polypectomy History of rotator cuff surgery Right - 2009 History of coronary artery bypass graft X2 VESSEL 1995 -- MELCHOR LEIJA Family History Mother Essential hypertension Stroke Sister Cancer Breast cancer Daughter Cancer Colon cancer Social History (Updated 04/13/24 @ 14:57 by Keiko Mccann PA-C) Smoking Status: Former smoker Tobacco Type: Cigarettes packs per day: 2; Second Hand Exposure: No; Do You Dip or Chew Tobacco: No; Hx Alcohol Use: No Hx Substance Use: No Preferred Language: Montserratian Communication Ability: Effective Communication Ability Comment: write answers to questions, unable to talk Visual Impairment: No Limitations [employer]ker[employer] Required: No Beliefs That Will Affect Care: Spiritual marital status: Current Living Situation: Spouse Current Living Situation Comment: home with spouse current occupational status: retired How many Children do You have Comment: Son can help other: Home health nursing twice per week Feels Safe at Home: Yes Diet: regular during the past year weight has: decreased > 10 lbs Physical Activity Frequency: Does not Exercise Assistive Devices: Cane and Walker Review of Systems See HPI for pertinent positives & negatives. Physical Exam Vital Signs Vital Signs - 24 hr 04/13/24 10:41 04/13/24 12:03 04/13/24 12:12 Temperature 36.3 C L Temperature Source Oral Pulse Rate 79 63 64 Pulse Rate from SpO2 Sensor Respiratory Rate 18 19 Blood Pressure 132/66 138/69 Blood Pressure Mean 88 92 Pulse Oximetry 97 98 Oxygen Delivery Method Room Air Sepsis Recent Fever Within 48 Hours Yes Sepsis New/Unexplained Change in Mental Status N/A Sepsis Action Taken by Nursing No Action Required 04/13/24 13:00 04/13/24 13:00 04/13/24 13:30 Temperature Temperature Source Pulse Rate 61 64 Pulse Rate from SpO2 Sensor 64 Respiratory Rate 21 16 Blood Pressure 123/58 L 121/53 L Blood Pressure Mean 63 70 Pulse Oximetry 94 97 Oxygen Delivery Method Sepsis Recent Fever Within 48 Hours Sepsis New/Unexplained Change in Mental Status Sepsis Action Taken by Nursing 04/13/24 14:00 Temperature Temperature Source Pulse Rate 62 Pulse Rate from SpO2 Sensor Respiratory Rate 23 Blood Pressure 142/63 H Blood Pressure Mean 104 Pulse Oximetry 99 Oxygen Delivery Method Sepsis Recent Fever Within 48 Hours Sepsis New/Unexplained Change in Mental Status Sepsis Action Taken by Nursing See below Constitutional WD/WN, vitals as above Eyes + anicteric sclerae and PERRL Pale conjunctiva bilaterally ENMT external ear and nose normal, oropharynx normal Neck tracheal stoma noted without surrounding erythema or drainage Respiratory normal respiratory effort Auscultation: + crackles and + wheezes Cardiovascular RRR, no murmur, no edema Gastrointestinal (Abdomen) normal bowel sounds, soft, nontender, no hepatosplenomegaly Skin no rashes, warm and dry + pallor Course Administered Medications Discontinued Medications Sodium Chloride (Nss) 1,000 mls @ 999 mls/hr IV .Q1H1M HUNG Stop: 04/13/24 11:58 Last Infusion: 04/13/24 13:31 Dose: Infused Documented By: Admin: 04/13/24 12:36 Dose: 999 mls/hr Documented By: CHRISTOPHER Pantoprazole Sodium 80 mg/ (Dextrose) 120 mls @ 480 mls/hr IV ONE STA Stop: 04/13/24 11:12 Last Infusion: 04/13/24 12:56 Dose: Infused Documented By: Admin: 04/13/24 12:36 Dose: 480 mls/hr Documented By: CHRISTOPHER Medical Decision Making Medical Records Attestation: I reviewed the patient's medical records. Home Medications Current Medication List: was personally reviewed by me Laboratory Data Attestation: I reviewed the patient's lab results. 04/13/24 14:43 04/13/24 11:31 Lab Results 12/18/24 12/18/24 Range/Units 11:31 11:36 WBC 17.12 H (4.8-10.8) K/ul RBC 3.46 L (4.70-6.10) M/uL Hgb 9.8 L (14.0-18.0) g/dl Hct 30.0 L (42.0-52.0) % MCV 86.7 (80.0-100.0) fL MCH 28.3 (25.0-34.0) pg MCHC 32.7 (32.0-36.0) g/dL RDW Std Deviation 52.0 H (36.4-46.3) fL RDW Coeff of Sharda 16.4 H (11.5-14.5) % Plt Count 394 (130-400) K/uL MPV 9.3 L (9.4-12.4) fL Immature Gran % (Auto) 0.5 % Neut % (Auto) 84.8 % Lymph % (Auto) 3.3 % [place] % (Auto) 4.4 % Eos % (Auto) 6.6 % Baso % (Auto) 0.4 % Neut # (Auto) 14.52 H (1.40-6.50) K/uL Lymph # (Auto) 0.56 L (1.20-3.40) K/uL [place] # (Auto) 0.76 H (0.11-0.59) K/uL Eos # (Auto) 1.13 H (0.00-0.50) K/uL Baso # (Auto) 0.07 (0.00-0.20) K/uL Immature Gran # (Auto) 0.08 (0.01-0.20) K/uL PT 11.5 (9.0-12.0) Seconds INR 1.1 (0.9-1.1) Sodium 135 L (136-145) mmol/L Potassium 3.9 (3.5-5.1) mmol/L Chloride 102 (98-107) mmol/L Carbon Dioxide 24 (21-32) mmol/L Anion Gap 9 (3-11) BUN 25 H (6-23) mg/dl Creatinine 0.81 (0.6-1.4) mg/dl Est Cr Clr Drug Dosing 72.3 ml/min eGFR 86.94 BUN/Creatinine Ratio 30.9 H (10-20) Glucose 97 (70-99(Fasting)) mg/dl Lactate 2.0 (0.4-2.0) mmol/L Calcium 10.0 (8.6-10.3) mg/dl Total Bilirubin 0.5 (0.2-1.0) mg/dl AST 23 (13-39) U/L ALT 10 (7-52) U/L Alkaline Phosphatase 73 (34-104) U/L Total Protein 7.1 (6.0-8.3) gm/dl Albumin 3.5 (3.4-5.0) gm/dl Globulin 3.6 (2.5-4.0) gm/dl Albumin/Globulin Ratio 1.0 (0.9-2) Lipase 7 L (11-82) U/L Blood Type O Positive Antibody Screen NEGATIVE Imaging Data Radiologist's Impression: Chest X-Ray 04/13/24 10:49 XR chest 1V portable HISTORY: 83 years-old Male vomiting/ possible aspiration COMPARISON: 03/31/2024 TECHNIQUE: AP view the chest FINDINGS: Cardiomediastinal and hilar silhouettes are within normal limits. Median sternotomy. Left subclavian pacer. Unchanged calcified granuloma in the right midlung. No pneumothorax, pleural effusion or airspace consolidation. Spondylitic spurring of the spine. IMPRESSION: No acute process. ACT 112: Negative or not required by law. The above report was generated using voice recognition software. It may contain grammatical, syntax or spelling errors. Electronically signed by: Andrew Siddiqui M.D. 04/13/2024 11:48 AM Abdomen/Pelvis CT 04/13/24 11:00 CT abd pelvis IV con only CLINICAL HISTORY: GI bleeding protocol TECHNIQUE: Helical axial images of the abdomen and pelvis were obtained and displayed. Automated dose lowering techniques and/or adjustment according to patient size were utilized for this exam. This exam was performed with intravenous contrast. CT DOSE: 1048.05 mGy.cm COMPARISON: Comparison is made to PET/CT 02/18/[address] abdomen pelvis 07/25/2023 FINDINGS: Lower chest: No acute abnormality. Liver: Unremarkable. No focal lesions are seen. Gallbladder and biliary tree: Cholelithiasis is seen without evidence of cholecystitis. No intra- or extrahepatic biliary ductal dilation. Pancreas: Unremarkable, no focal lesions. Spleen: Unremarkable. Adrenals: Unremarkable. Kidneys and ureters: Multiple renal cysts are seen. There is a exophytic 16 mm lesion with greater than simple fluid density left kidney which has remained stable. Bladder: Diffuse homogeneous wall thickening is seen. Reproductive organs: Unremarkable. Bowel: No abnormal contrast in the colon to suggest gastrointestinal bleeding. There is a small hiatal hernia. Lymph nodes Retroperitoneal: Unremarkable. Pelvic: Right inguinal lymph node with hypodense center is seen measuring 25 mm in diameter, enlarged from prior PET/CT were measured 9 x 15 mm. Multiple external iliac lymph nodes are also seen, new from prior exam measuring up to 13 mm in short axis. Mesenteric: Unremarkable. Peritoneum: Normal. Vessels: Atherosclerotic calcifications are seen. Small infrarenal aortic aneurysm measures 28 mm. Abdominal wall: A bulky right abdominal wall lesion measures 8 x 10 cm, significantly enlarged from prior exam where it measured 46 mm in diameter. Bones: Degenerative changes in the visualized spine. IMPRESSION: 1. Interval worsening of metastatic disease since prior PET/CT with enlargement of the right abdominal wall mass and multiple right inguinal and iliac lymph nodes. 2. No evidence of gastrointestinal bleeding. ACT 112: Negative or not required by law. Electronically signed by: Mitchell Gilmore M.D. 04/13/2024 1:10 PM ECG Data Attestation: I personally reviewed and interpreted this ECG as follows: (Atrial paced rhythm at rate of 60bpm. CA interval 188ms. QRS 96ms. QTc 434ms. Negative SGARBOSSA criteria. ) Blood Pressure Blood Pressure Disposition: further management by hospitalist JOHN Narrative Patient is an 83-year-old male with history as seen above who presents with near syncopal episode at outpatient clinic. On arrival here in the emergency room he is hemodynamically stable. Awake and alert. He did report an episode of bright red hematemesis and dark stool 2 days prior. No active GI bleed today. He is on Eliquis. Hemoglobin of 9.8. No indication for reversal of anticoagulation or active transfusion. White blood cell count of 17.1. No fever here today. Lactate within normal limits. Chest x-ray was ordered and nonconcerning for opacity or aspiration event. ECG interpretation seen above. No chest pain or anginal equivalent reported. Elevated white blood cell count likely secondary to hemoconcentration in the setting of recent hypovolemia. Will repeat after IV fluids. CT of the abdomen pelvis shows evidence of interval worsening of metastatic disease regarding patient's right abdominal wall mass. No active arterial bleed noted. IV Protonix bolus was given here today. Admit for further workup of likely upper GI bleed. Stable for medical floor with telemetry monitoring. Impression & Plan Hematemesis, Melena Discharge Plan Visit Data Chief Complaint: Syncope (Near Syncope) Stated Complaint: LIGHTHEADED, ABD PAIN, WEAK, NEAR SYNCOPE ED Provider: Vance Nicole Discharge Problem: Hematemesis, Melena Discharge Instructions Interventions: ED Discharge Assessment Last Done: 04/13/24 14:53
--- NOTE | 2024-04-13 13:13 | CT Scan Report ---
CT abd pelvis IV con only CLINICAL HISTORY: GI bleeding protocol TECHNIQUE: Helical axial images of the abdomen and pelvis were obtained and displayed. Automated dose lowering techniques and/or adjustment according to patient size were utilized for this exam. This e xam was performed with intravenous contrast. CT DOSE: 1048.05 mGy.cm COMPARISON: Comparison is made to PET/CT 02/18/[address] abdomen pelvis 07/25/2023 FINDINGS: Lower chest: No acute abnormality. Liver: Unremarkable. No focal lesions are seen. Gallbladder and biliary tree: Cholelithiasis is seen without evidence of cholecystitis. No intra- or extrahepatic biliary ductal dilation. Pancreas: Unremarkable, no focal lesions. Spleen: Unremarkable. Adrenals: Unremarkable. Kidneys and ureters: Multiple renal cysts are seen. There is a exophytic 16 mm lesion with greater th an simple fluid density left kidney which has remained stable. Bladder: Diffuse homogeneous wall thickening is seen. Reproductive organs: Unremarkable. Bowel: No abnormal contrast in the colon to suggest gastrointestinal bleeding. There is a small hiata l hernia. Lymph nodes Retroperitoneal: Unremarkable. Pelvic: Right inguinal lymph node with hypodense center is seen measuring 25 mm in diameter, enlarged from prior PET/CT were measured 9 x 15 mm. Multiple external iliac lymph nodes are also seen, new fr om prior exam measuring up to 13 mm in short axis. Mesenteric: Unremarkable. Peritoneum: Normal. Vessels: Atherosclerotic calcifications are seen. Small infrarenal aortic aneurysm measures 28 mm. Abdominal wall: A bulky right abdominal wall lesion measures 8 x 10 cm, significantly enlarged from p rior exam where it measured 46 mm in diameter. Bones: Degenerative changes in the visualized spine. IMPRESSION: 1. Interval worsening of metastatic disease since prior PET/CT with enlargement of the right abdomin al wall mass and multiple right inguinal and iliac lymph nodes. 2. No evidence of gastrointestinal bleeding. ACT 112: Negative or not required by law. Electronically signed by: Mitchell Gilmore M.D. 04/13/2024 1:10 PM
--- NOTE | 2024-04-13 13:58 | History & Physical Report ---
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 Reports felt dizzy when standing. Denies CP, SOB. 2 days ago had one episode of hematemesis and one BM melena. No melena or recurrent hematemesis since. In ER vitals stable. Hgb: 9.8. Recent baseline Hgb in 9's. In ER given Protonix bolus Will continue Protonix IV Repeat H&H Type and cross PRBCs and hold. Since episode of hematemesis was 2 days ago and no further reported melena or hematemesis, will allow diet and continue Eliquis and closely monitor If recurrent symptoms plan for GI consult and plan to hold Eliquis and Plavix CBC, BMP in am Blood consent was obtained from the patient as delegated by Dr. High. Risks and benefits were explained. All questions were answered, and the patient (or patient delegate) was offered the opportunity to discuss with attending physician and declined. 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 Tattoo rectum without evidence neoplasia Patient reports approximately 1 month ago had esophageal dilation at [facility]. Formal report unavailable for review at this time #Syncope Denies CP or SOB In ER given 1L NSS DDx orthostatic hypotension, vasovagal syncope, arrhythmia EKG paced rhythm per my interpretation Obtain troponin. Troponin was 97. Trend troponin 04/01/2024 Echo Normal LV wall motion, EF: 60-65%, grade 2 diastolic dysfunction, moderate calcific valvular aortic stenosis Orthostatic vitals Q shift Pacemaker interrogation Monitor on telemetry Known history orthostatic hypotension and prior BP meds were discontinued. Monitor BP EKG in am If troponins uptrending consider repeat echo and cardiology consult (4) Abnormal computed tomography of abdomen and pelvis: Plan: CT Abd/pelvis: 1. Interval worsening of metastatic disease since prior PET/CT with enlargement of the right abdominal wall mass and multiple right inguinal and iliac lymph nodes. 2. No evidence of gastrointestinal bleeding. Per chart review PET scan on 02/14/2024: Interval enlargement of a right abdominal wall soft tissue mass, measuring 45 mm in diameter compared to 16 mm in the prior exam, as the 25.9 compared to 19.2 and the prior exam. Interval development of a right inguinal mass, possibly a lymph node, measuring 9 mm, SUV max 16.1. Additional smaller, less FDG avid nodes are seen. (5) Laryngeal cancer: (6) Tracheostomy in place: Plan: History of laryngeal cancer squamous cell S/P laryngectomy, right neck dissection, subtotal thyroidectomy, s/p radiation treatment Recurrence of cancer requiring tracheal stoma Squamous cell cancer in multiple areas s/p radiation treatment Currently on Keytruda Follows with heme-onc History of Mucous plugging of tracheal stoma Suction prn Hypertonic saline nebs Continue home levothyroxine Follows with Dr Monroy, oncology (7) SSS (sick sinus syndrome): Plan: S/P Pacemaker Pacemaker interrogation (8) CAD (coronary artery disease): Plan: S/P CABG in 1995 Denies CP, SOB On Plavix and Eliquis Paroxysmal atrial fibrillation On Eliquis (9) PVD (peripheral vascular disease): Plan: History Peripheral vascular disease History Bilateral carotid endarterectomy On Plavix (10) Moderate aortic stenosis: Plan: 04/01/2024 Echo Normal LV wall motion, EF: 60-65%, grade 2 diastolic dysfunction, moderate calcific valvular aortic stenosis DVT Prophylaxis On Eliquis Admit telemetry Full Code as per discussion with pt Follows with Dr Rasheed for routine care Pt was seen and care coordinated with Dr High. See addendum I spent a total of 70 minutes reviewing notes, outpatient records, labs, medication, coordinating, documenting and providing care for this patient excluding time spent in the performance of separately billed services. 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 Patient states was getting outpatient labs this morning. States stood up after lab draw and states felt lightheaded and passed out and fell back into chair. States lasted a few seconds. Denies CP, SOB, BEATTY, vision changes. Patient reports has been having dizziness with standing for couple of months. He reports nausea for couple of months. States vomited approximately one month ago. Reports 2 days ago had One episode of hematemesis 2 days ago had dark color stool. Had one BM after that he reports appeared more normal in coloration. Denies abdominal pain. Denies diarrhea. Per inpatient chart review recent [facility] hospitalization 04/01/24-04/02/2024 mucous plugging of tracheal stoma and was found to have mildly elevated troponin without reported chest pain. Was discharged with prescription for hypertonic saline nebs. He states had fever of 100F couple weeks ago and has been measuring temperature at home and reported normal. Denies BEATTY, dizziness, vision changes, neck pain, CP, SOB, orthopnea, palpitations, cough, otalgia, rhinorrhea, abdominal pain, extremity weakness, extremity edema, rashes, urinary symptoms. Allergies Allergy/AdvReac Type Severity Reaction Status Date / Time rosuvastatin [From Crestor] Allergy Unknown Unknown Verified 03/04/24 10:50 Home Medications Medication Instructions Recorded Confirmed Type levothyroxine 125 mcg tablet 125 mcg PO DAILYBB 03/25/18 04/13/24 History nitroglycerin 0.4 mg sublingual 1 tab sublingual UD PRN Chest Pain 03/25/18 04/13/24 History tablet paroxetine HCl 20 mg tablet (Paxil) 20 mg PO HS 03/25/18 04/13/24 History clopidogrel 75 mg tablet 75 mg PO QAM 06/03/18 04/13/24 History albuterol sulfate 2.5 mg/3 mL 2.5 mg inhalation QID PRN 08/19/19 04/13/24 History (0.083 %) solution for nebulization Shortness Of Breath Or Wheezing polyethylene glycol 3350 17 gram 17 g PO DAILY PRN Constipation 11/02/20 04/13/24 History oral powder packet (Miralax) apixaban 5 mg tablet (Eliquis) 5 mg PO AMHS 09/13/21 04/13/24 History omeprazole 20 mg capsule,delayed 20 mg PO DAILY PRN Heartburn 07/24/23 04/13/24 History release folic acid 1 mg tablet 1 mg PO DAILY 03/31/24 04/13/24 History iron,carbonyl 65 mg-vitamin C 125 1 tab PO QAM 03/31/24 04/13/24 History mg tablet,delayed release (Vitron-C) triamcinolone acetonide 0.1 % 1 applic topical BID 03/31/24 04/13/24 History topical cream sodium chloride 7 % for 4 ml NEB BIDR PRN mucus plugging 04/02/24 04/13/24 Rx nebulization #240 mL Past Med/Surg History Problem List (Updated 04/13/24 @ 16:03 by Keiko Mccann PA-C) Moderate aortic stenosis PVD (peripheral vascular disease) Abnormal computed tomography of abdomen and pelvis GI bleed Syncope Melena (Acute) Hematemesis (Acute) Elevated troponin (Acute) Elevated troponin 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) Anemia (Acute) Tracheostomy in place (Acute) Leukocytosis (Acute) Laryngeal cancer (Acute) Cellulitis (Acute) 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 Severe sepsis Bacteremia due to Enterococcus (Acute) Sepsis Aspiration pneumonia (Acute) Aspiration pneumonia (Acute) Acute dyspnea (Acute) History of laryngectomy Aspiration pneumonia Multifocal pneumonia (Acute) Tracheostomy in place (Acute) Tracheobronchitis Hypoxia (Acute) SSS (sick sinus syndrome) (Chronic) History of CVA (cerebrovascular accident) (Chronic) February 2018, no deficits Tracheostomy in place (Acute) COPD (chronic obstructive pulmonary disease) Acute hypoxemic respiratory failure Peripheral eosinophilia Elevated troponin (Acute) Stenosis of left internal carotid artery History of cataract surgery (Chronic) H/O repair of right rotator cuff (Chronic) Anxiety (Chronic) 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 Symptoms were resolving by the time the patient arrived in the ED. 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 on CPAP no longer on CPAP post tracheostomy Surgical History Hx of laryngectomy History of bronchoscopy History of tonsillectomy History of carotid endarterectomy RIGHT (MARCH 2018) History of cataract extraction with lens replacement cataract extraction with IOL implant and LRI left eye - 05/02/12 History of colonoscopy with polypectomy History of rotator cuff surgery Right - 2009 History of coronary artery bypass graft X2 VESSEL 1995 -- Himanshu LEIJA Family History Mother Essential hypertension Stroke Sister Cancer Breast cancer Daughter Cancer Colon cancer Social History (Updated 04/13/24 @ 14:57 by Keiko Mccann PA-C) Smoking Status: Former smoker Tobacco Type: Cigarettes packs per day: 2; Second Hand Exposure: No; Do You Dip or Chew Tobacco: No; Tobacco Cessation Education Requested by Patient: No Hx Alcohol Use: No Hx Substance Use: No Preferred Language: Sammarinese Communication Ability: Effective Communication Ability Comment: write answers to questions, unable to talk Visual Impairment: No Limitations Legend Maker Required: No Beliefs That Will Affect Care: None marital status: Current Living Situation: Spouse Current Living Situation Comment: home with spouse current occupational status: retired How many Children do You have Comment: Son can help Other Information That Helps Us Care for You: No other: Home health nursing twice per week Feels Safe at Home: Yes Safety Concerns: Feels Safe At This Time Diet: regular during the past year weight has: decreased > 10 lbs Physical Activity Frequency: Does not Exercise Assistive Devices: Walker Review of Systems Review of Systems: All systems reviewed & are unremarkable except as noted in HPI & below Physical Exam Physical Exam: PE per Dr High. Results & Data Results & Data Vital Signs (Past 12 Hours) Vital Signs Temp Pulse Resp BP Pulse Ox O2 Del Method 04/13/24 13:00 64 16 97 04/13/24 13:00 61 21 123/58 L 94 04/13/24 12:12 64 04/13/24 12:03 63 19 138/69 98 04/13/24 10:41 36.3 C L 79 18 132/66 97 Room Air Laboratory Results Short CBC 04/13/24 Range/Units 11:31 WBC 17.12 H (4.8-10.8) K/ul Hgb 9.8 L (14.0-18.0) g/dl Hct 30.0 L (42.0-52.0) % Plt Count 394 (130-400) K/uL BMP 04/13/24 11:31 Sodium 135 L Potassium 3.9 Chloride 102 Carbon Dioxide 24 BUN 25 H Creatinine 0.81 Glucose 97 Calcium 10.0 Liver Function 04/13/24 Range/Units 11:31 Total Bilirubin 0.5 (0.2-1.0) mg/dl AST 23 (13-39) U/L ALT 10 (7-52) U/L Alkaline Phosphatase 73 (34-104) U/L Albumin 3.5 (3.4-5.0) gm/dl Diagnostic Findings Chest X-Ray 04/13/24 10:49 XR chest 1V portable HISTORY: 83 years-old Male vomiting/ possible aspiration COMPARISON: 03/31/2024 TECHNIQUE: AP view the chest FINDINGS: Cardiomediastinal and hilar silhouettes are within normal limits. Median sterno armando. Left subclavian pacer. Unchanged calcified granuloma in the right midlung. No pneumothorax, pleural effusion or airspace consolidation. Spondylitic spurring of the spine. IMPRESSION: No acute process. ACT 112: Negative or not required by law. The above report was generated using voice recognition software. It may contain grammatical, syntax or spelling errors. Electronically signed by: Andrew Siddiqui M.D. 04/13/2024 11:48 AM Abdomen/Pelvis CT 04/13/24 11:00 CT abd pelvis IV con only CLINICAL HISTORY: GI bleeding protocol TECHNIQUE: Helical axial images of the abdomen and pelvis were obtained and displayed. Automated dose lowering techniques and/or adjustment according to patient size were utilized for this exam. This exam was performed with intravenous contrast. CT DOSE: 1048.05 mGy.cm COMPARISON: Comparison is made to PET/CT 02/18/[address] abdomen pelvis 07/25/2023 FINDINGS: Lower chest: No acute abnormality. Liver: Unremarkable. No focal lesions are seen. Gallbladder and biliary tree: Cholelithiasis is seen without evidence of cholecystitis. No intra- or extrahepatic biliary ductal dilation. Pancreas: Unremarkable, no focal lesions. Spleen: Unremarkable. Adrenals: Unremarkable. Kidneys and ureters: Multiple renal cysts are seen. There is a exophytic 16 mm lesion with greater than simple fluid density left kidney which has remained stable. Bladder: Diffuse homogeneous wall thickening is seen. Reproductive organs: Unremarkable. Bowel: No abnormal contrast in the colon to suggest gastrointestinal bleeding. There is a small hiatal hernia. Lymph nodes Retroperitoneal: Unremarkable. Pelvic: Right inguinal lymph node with hypodense center is seen measuring 25 mm in diameter, enlarged from prior PET/CT were measured 9 x 15 mm. Multiple external iliac lymph nodes are also seen, new from prior exam measuring up to 13 mm in short axis. Mesenteric: Unremarkable. Peritoneum: Normal. Vessels: Atherosclerotic calcifications are seen. Small infrarenal aortic aneurysm measures 28 mm. Abdominal wall: A bulky right abdominal wall lesion measures 8 x 10 cm, significantly enlarged from prior exam where it measured 46 mm in diameter. Bones: Degenerative changes in the visualized spine. IMPRESSION: 1. Interval worsening of metastatic disease since prior PET/CT with enlargement of the right abdominal wall mass and multiple right inguinal and iliac lymph nodes. 2. No evidence of gastrointestinal bleeding. ACT 112: Negative or not required by law. Electronically signed by: Mitchell Gilmore M.D. 04/13/2024 1:10 PM Supervising Physician Co-Signing Physician Notes Patient seen and examined Reports an episode of syncope for a few seconds on standing up after getting labs drawn at 's office Denied any chest pain, SOB Reports occasional orthostatic dizziness and stated he was dehydrated at the time ROS revealed an episode of hematemesis and black stool 2 days ago that resolved. Stated last BM was normal On exam General: Not in acute distress Eyes: PERRL, conjunctivae normal, not pale, anicteric sclerae, EOM intact bilaterally ENMT: External ear and nose normal Neck: Tracheostomy Respiratory: Normal respiratory effort, no respiratory distress, lungs clear to auscultation, no crackles and no wheezes Cardiovascular: RRR S1 S2 +murmur Gastrointestinal (Abdomen): Abdomen is not distended, soft, non-tender to palpation, no guarding, no palpable hepatosplenomegaly, normal bowel sounds Musculoskeletal: No pedal edema Neurologic: No focal weakness, sensation grossly intact Psychiatric: Alert and oriented x 3, euthymic affect Labs notable for WBC 17K, Hb 9.8 which is about his baseline (was 11.1 from outpatient this AM) CT abd reported interval worsening of metastatic disease since prior PET/CT Reviewed recent Echo from 2 weeks ago Trend Hb and monitor If any drop/signs of bleeding, get GI Got IVF in ER. [place] fluid intake Orthostatic VS Tele monitor Patient to f/u with his oncologist about CT findings. I spent a total of 45 minutes coordinating, documenting and providing care for this patient excluding time spent in performance of separately billed services (2) Anemia Anemia type: unspecified type Qualified Code(s): D64.9 - Anemia, unspecified (8) CAD (coronary artery disease) Associated angina: without angina Coronary Disease-Associated Artery/Lesion type: unspecified vessel or lesion type Robinson vs. transplanted heart: [place] heart Qualified Code(s): I25.10 - Atherosclerotic heart disease of [place] coronary artery without angina pectoris
[2024-04-13] MEDS ORDERED: SODIUM CHLORIDE 0.9% 50 ML IV PRN (14:35)
[2024-04-13] MEDS ORDERED: SODIUM CHLORIDE 0.9% 100 ML IV PRN (14:35)
[2024-04-13] MEDS ORDERED: ACETAMINOPHEN 325 MG TAB PO PRN (14:53)
[2024-04-13] MEDS ORDERED: POLYETHYLENE (MIRALAX) 17 GM PACK PO PRN (14:53)
[2024-04-13] MEDS ORDERED: ONDANSETRON INJ 2 MG/ML 2 ML VIAL IV PRN (14:53)
[2024-04-13 14:59] LABS: Hematocrit (blood only) 28.6 % (42.0-52.0); Mean Corpuscular Hemoglobin 27.9 pg (25.0-34.0); Mean Corpuscular Hgb Conc 31.5 g/dL (32.0-36.0); Mean Corpuscular Volume 88.5 fL (80.0-100.0); Mean Platelet Volume 9.6 fL (9.4-12.4); Platelet Count 332 K/uL (130-400); RDW Coefficient of Variation 16.6 % (11.5-14.5); RDW Standard Deviation 53.9 fL (36.4-46.3); Red Blood Count 3.23 M/uL (4.70-6.10); White Blood Count 13.94 K/ul (4.8-10.8)
[2024-04-13] MEDS: PANTOprazole 40 MG in DEXTROSE 5% MINI-B 100 ML IV SCH (17:47)
[2024-04-13] MEDS: SODIUM CHLOR 7% 4 ML NEB NEB SCH (19:50)
[2024-04-13] MEDS: PARoxetine HCL 20 MG TAB PO SCH (21:07)
[2024-04-13] MEDS: APIXABAN 5 MG TABLET PO SCH (21:07)
--- OUTSIDE RECORDS SUMMARY | 2024-04-13 21:38 | External Medical Summary | Summary of Care ---
Author Name Unknown Organization [facility] Address [address] [place] [address] Phone [phone] Care Team Providers Care Supervisor Poultry Processing Name Role Phone Neto Rasheed MD Primary Care Provider + Reason for Visit * Reason Onset Date Comments Order Request 04/12/2024 Encounter Details Date Type Department Care Team (Late st Contact Info) Description 04/12/2024 Telephone General Internal Medicine [facility] [address] [place] [address] Neto Rasheed MD [address] [place] [address] Order Request Allergies No known active allergiesdocumented as of this encounter (statuses as of 04/12/2024) Medications nitroglycerin (NITROSTAT) 0.4 MG SUBLIndications: CAD (coronary artery disease), [place] coronary artery,Chest pain,SOB (shortness of breath),Malaise and [...] as of this encounter (statuses as of 04/12/2024) Active Problems Problem Noted Date Diagnosed Date [...] of gout 02/05/2012 CAD (coronary artery disease), [place] coronary a rtery 01/22/2012 Other voice and [...] as of this encounter (statuses as of 04/12/2024) Resolved Problems Problem Noted Date Diagnosed Date [...] as of this encounter (statuses as of 04/12/2024) Immunizations Name Administration Dates Next Due COVID-19 [...] cine, Unspecified Formulation 03/08/2021,02/23/2020,12/31/2018,03/08,03/06/2017,04/25/2016,01/20/2013 ,01/22/2012,01/20/2011,03/08/2010,0904/2008,03/07/2008,05/17/2001 Seasonal Influenza, High Dos e, Trivalent, PF, IM (Fluzone HD) 02/22/2024 Seasonal Influenza, PF, 6 M & above, [...] Industry Job Start Date Job End Date [employer] Not on file Not on file Not on file documented as of this encounter Functional Status * Are you deaf or do you have serious difficulty hearing? Answer Date of Assessment Author No 12/06/2019 9:30 PM EDNoemi Heath RN * Are you blind or do [...] of Assessment Author No 12/06/2019 9:30 PM EDT Noemi Mascorro RN documented as of this encounter Mental Status * Because of a physical, mental, or emotional condition, do you have serious difficulty concentrating, remembering, or making decisions? (5 years old or older) Answer Entry Date Author No 12/06/2019 9:30 PM EDT Noemi Mascorro RN documented in this encounter Miscellaneous Notes * Telephone Encounter - Sarai Nazario CMA - 04/12/2024 3:05 PM EST DME order faxed to [facility] to number below. Patient notified. * Telephone Encounter - Neto Rasheed MD - 04/12/2024 12:53 PM EST Ok * Telephone Encounter - Elsy Toure CPhT - 04/12/2024 11:07 AM EST Pt is asking high priority and needs to be done today, stating otherwise will have to take pt to hospital. An order was requested for this patient. Name of Requestor: Tiffany pt's Order Request: Suction Machine - ROUTE TO CLINIC NURSE POOL Diagnosis/Reason for Request: It is beyond repair, pt brought to [facility] and they could not fix.Pt needs a new machine Does the order need to be faxed somewhere? If so, where?: [facility] Fax Number, if applicable: [phone] Call Back Number: [phone] Thank you, Maddie Toure CPhT Certified Prosthetist/Orthotist II [facility] 04/12/2024,11:07 AM documented in this encounter Plan of Treatment Upcoming Encounters Date Type Department Care Team (Late st Contact Info) Description 04/14/2024 2:20 PM EST Office Visit General Internal Medicine [facility] [address] [facility] [place], [place] [address] Jodie Fisher MD [address] [facility] [place], [place] [address] 06/21/2024 3:20 PM EST Office Visit General Internal Medicine [facility] [address] [facility] [place] [address] Neto Rasheed MD [address] [facility] [place] [address] 07/14/2024 1:45 PM EDT Office Visit Dermatology [facility] [address] [facility] [place] [address] Bonnie Sawyer MD [address] [facility] [place] [address] 11/30/2024 11:00 AM EDT Cardiac Studies Cardiac Studies, [facility] [address] [facility] [place] [address] Health Maintenance Due Date Last Done Comments Alpha-1 Antitrypsin 1957 Zoster Vaccines (1 of 2) 1989 Adult Wellness Visit 11/07/2014 11/07/2013 COVID-19 Vaccine ( season) 2023 08/29/2021, 03/29/2021, 07/06/2020, Additional history exists Depression Monitoring 01/09/2024 01/08/2023 GFR 11/26/2024 11/27/2023, 08/26, 08/14/2023, Additional history exists DTap/Tdap Vaccines (6 - Td or Tdap) 12/25/2024 12/25/2014, 09/26/2003, 09/26/2003, Additional history exists TSH 01/17/2025 01/18/2024, 0805/2023, 11/27/2023, Additional history exists O2 ASSESSMENT COMPLETED [...] this encounter Medical Devices Implanted Type Area Software Configuration Analyst Device Identifier Shelf Expiration Date Model / Serial / Lot Woundmatrix Fenstr [id number] (150 Units) - [id number] - [id number] Implanted:Qty: 150 on 04/18/2019 by Hayden Fleming [place] [facility] [place]: Leg Upper [employer] [id number] 01/25/2020 [id number] / [id number] / [id number] Indwelling Voice Prosthesis Implanted:Qty: 1 on 10/26/2019 by Hayden Fleming MD [place] [facility] [place]/A: Throat 08/16/2021 1616-[id number] / / [id number] Description:[employer] TECHNOL OGNAYELI REF : IN 1616-NS (HECTOR-NAZARIO) CLASSIC INDWELLING VOICE PROSTHESIS WITH INSERTION / CLEANING ACCESSORIES documented as of this encounter Visit Diagnoses Diagnosis H/O laryngectomy- Primary Other postprocedural status documented in this encounter Advance Directives Documents on File Type Date Recorded Patient Inspectors And Regulatory Officers Expl anation Power of Machinery Rigger 09/27/2018 POWER OF A TTORNEY * Full [...] were consensually agreed upon. Care Teams Supervisor Poultry Processing Relationship Specialty Start Date End Date Neto Rasheed MD [address] [place] [address] PCP - General Internal Medicine 02/14/21 documented as of this encounter
--- OUTSIDE RECORDS SUMMARY | 2024-04-13 21:38 | External Medical Summary | Summary of Care ---
Author Name Unknown Organization [facility] Address [address] [place] [address] Phone [phone] Care Team Providers Care Construction Sales Representative Name Role Phone Neto Rasheed MD Primary Care Provider + Reason for Referral * Evaluate & Treat - Unlimited Visits (Within 10 days (routine)) - Authorized Specialty Diagnoses / Procedures Referred By Ekaterina alcaraz Referred To Contact Physical Therapy / Physical Medicine And Rehab Diagnoses Physical deconditioning Neto Rasheed MD [facility] [place] [address] [id number] Phone: tel: fax: Referral ID Status Reason Start Date Expiration Date Visits Requested Visits Authorized [id number] Authorized Specialty Services Required 4 [phone] Question Answer Referral Priority Within 10 days (routine) Where should this appointment be scheduled? [facility] Reason for Visit * Reason Onset Date Comments Home Health 04/08/2024 Encounter Details Date Type Department Care Team (Late st Contact Info) Description 04/08/2024 Telephone General Internal Medicine [place] [facility] Valentine [address] [place] [address] [phone] Neto Rasheed MD [address] [place] [id number] Home Health Allergies No known active allergiesdocumented as of this encounter (statuses as of 04/08/2024) Medications nitroglycerin (NITROSTAT) 0.4 MG SUBLIndications: CAD (coronary artery disease), [place] coronary artery,Chest pain,SOB (shortness of breath),Malaise and fatigue Place 1 Tab under the tongue every 5 minutes as needed for Pain, Chest. Max dose 3 tablets in 15 minutes 25 Tab 3 11/09/19 Active Additional Information Patient not taking.Informant: Patient, Reported on 11/27/2023 [facility] [place]. Devices MISC Cool mist humidification device 1 Each 05/02/19 Active Misc. Devices MISC Portable suction device 1 Each 05/02/19 Active Misc. Devices MISC Trach care cleaning kit 1 Each 05/02/19 Active Misc. Devices MISC Yankauer suction tips 10 Each 5 05/02/19 Active Misc. Devices MISC 12Fr flexible suction catheters 10 Each 5 05/02/19 Active Misc. Devices MISC Inner cannulas for Shiley size 10 cuffless laryngectomy tube 10 Each 5 05/02/19 Active polyethylene glycol 3350 (MIRALAX) packet Take 1 Packet by mouth daily. 14 Each 05/02/19 Active Additional Information Patient taking differently:17 g OralDAILY PRN, Constipation, Informant: Patient, Reported on 06/02/2022 [facility] [place]. Devices MISC Size 10 shiley laryngectomy tube 2 Each 5 08/09/19 20 Active Fluorouracil 5 % External Cream (Efudex)Indicati ons:Actinic keratosis Apply to rough spots on the scalp nightly x 2-4 weeks. 40 g 05/18/19 Active Misc. 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 Cruz f/u Organic sleep disorder 09/19/200309/03 Actinic keratosis 09/19/2003 09/03/2017 OBESITY, UNSPECIFIED 08/30/2002 010 Overview (07/23/2009): Per Obesity Taxonomy PURE HYPERCHOLESTEROLEM 03/27 Overview (04/05/2009): Per Lipid Taxonomy. 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 Answer Date of Assessment Author No 12/06/2019 9:30 PM EDT Noemi Mascorro RN * Are you blind or do you have serious difficulty seeing, even when wearing glasses? Answer Date of Assessment Author No 04/30/2019 9:52 AM EST Sony Tapia RN * Do you have serious difficulty walking or climbing stairs? (5 years old or older) Answer Date of Assessment Author No 12/06/2019 9:30 PM EDNoemi Heath RN * Do you have difficulty dressing [...] Entry Date Author No 12/06/2019 9:30 PM Noemi Lorenzo RN documented in this encounter Miscellaneous Notes * Telephone Encounter - Sarai Nazario CMA - 04/08/2024 1:27 PM EST PT referral faxed to [facility] at [phone]. * Telephone Encounter - Neto Rasheed MD - 04/08/2024 11:30 AM EST ok * Telephone Encounter - Cammy Bruno LPN - 04/08/2024 11:18 AM EST Kartik PT from [facility] is calling. Requests that a Put patient PT referral is sent to [facility] Fax #: [phone]. Pt will start this after his last PT visit next week. Please advise. documented in this encounter Plan of Treatment Upcoming Encounters Date Type Department Care Team (Late st Contact Info) Description 04/14/2024 2:20 PM EST Office Visit General Internal Medicine [facility] [address] [place], [place] [address] Jodie Fisher MD [address] [facility] [place] [address] 06/21/2024 3:20 PM EST Office Visit General Internal Medicine [facility] [address] [place] [address] Neto Rasheed MD [address] [place] [address] 07/14/2024 1:45 PM EDT Office Visit Dermatology [facility] [address] [place] [address] Bonnie Saywer MD [address] [place] [address] 11/30/2024 11:00 AM EDT Cardiac Studies Cardiac Studies, [facility] [address] [facility] [place] [address] Scheduled Referrals Name Type Priority Associated Diagnoses Orde r Schedule PHYSICAL THERAPY REFERRAL OP Referral Within 10 days (routine) Physical deconditioning Ordered: 04/08/2024 Health Maintenance Due Date Last Done Comments [...] this encounter Medical Devices Implanted Type Area Grain Merchandising Manager Device Identifier Shelf Expiration Date Model / Serial / Lot Woundmatrix Fenstr [id number] (150 Units) - [id number] - [id number] Implanted:Qty: 150 on 04/18/2019 by Hayden Fleming MD at [place] [facility] [place] Left: Leg Upper [employer] [id number] 01/25/2020 [id number] / [id number] / [id number] Indwelling Voice Prosthesis Implanted:Qty: 1 on 10/26/2019 by Hayden Fleming MD at [place] [facility] [place] N/A: Throat 08/16/2021 1616-NS / / [id number] Description:INHEALTH TECHNOL OGIES REF : IN 1616-NS (HECTOR-) CLASSIC INDWELLING VOICE PROSTHESIS WITH INSERTION / CLEANING ACCESSORIES documented as of this encounter Visit Diagnoses Diagnosis Physical deconditioning- Primary Debility, unspecified documented in this encounter Advance Directives Documents on File Type Date Recorded Patient Hospital Account Manager Expl anation Power of Anesthesiologist/Physician 09/27/2018 POWER OF A TTORNEY * Full [...] and were consensually agreed upon. Care Teams Construction Sales Representative Relationship Specialty Start Date End Date Neto Rasheed MD [address] [place] [address] PCP - General Internal Medicine 02/14/21 documented as of this encounter
[2024-04-14] MEDS: LEVOTHYROXINE SODIUM 125 MCG TABLET PO SCH (06:20)
[2024-04-14 07:45] LABS: Basophils # (auto) 0.05 K/uL (0.00-0.20); Basophils % (auto) 0.5 %; Eosinophils # (auto) 0.83 K/uL (0.00-0.50); Eosinophils % (auto) 7.6 %; Hematocrit (blood only) 24.9 % (42.0-52.0); Hemoglobin 8.2 g/dl (14.0-18.0); Immature Granulocytes # (auto) 0.05 K/uL (0.01-0.20); Immature Granulocytes % (auto) 0.5 %; Lymphocytes # (auto) 0.61 K/uL (1.20-3.40); Lymphocytes % (auto) 5.6 %; Mean Corpuscular Hemoglobin 28.2 pg (25.0-34.0); Mean Corpuscular Hgb Conc 32.9 g/dL (32.0-36.0); Mean Corpuscular Volume 85.6 fL (80.0-100.0); Mean Platelet Volume 9.1 fL (9.4-12.4); Monocytes # (auto) 0.75 K/uL (0.11-0.59); Monocytes % (auto) 6.8 %; Platelet Count 337 K/uL (130-400); RDW Coefficient of Variation 16.3 % (11.5-14.5); RDW Standard Deviation 51.3 fL (36.4-46.3); Red Blood Count 2.91 M/uL (4.70-6.10); White Blood Count 10.99 K/ul (4.8-10.8)
[2024-04-14] MEDS: FERROUS SULFATE 325 MG TAB PO SCH (07:52)
[2024-04-14] MEDS: CLOPIDOGREL BISULFATE 75 MG TAB PO SCH (07:52)
[2024-04-14] MEDS: ASCORBIC ACID 500 MG TAB PO SCH (07:52)
[2024-04-14] MEDS: FOLIC ACID 1 MG TAB PO SCH (07:52)
[2024-04-14 08:23] LABS: BUN Creatinine Ratio 23.3 (10-20); Calcium 8.4 mg/dl (8.6-10.3); Creatinine Clr Calc Pharmacy 78.2 ml/min
--- NOTE | 2024-04-14 08:38 | Hospitalist Progress Note ---
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 Reports felt dizzy when standing. Denies CP, SOB. 2 days Prior to admission, [place] had one episode of hematemesis and one BM melena. No melena or recurrent hematemesis since. Possible UGI bleed Syncope likely Orthostatic hypotension Patient presented to the ED after he had a syncopal episode while standing up in the cancer care unit. Recent history of low blood pressure; patient has been titrated off antihypertensive as outpatient. Reported history of hematemesis 2 days prior to admission. Hemoglobin of 9.8 on admission 02/14/2011 EGD: Mckinney's esophagus 10/11/2014 colonoscopy: 3 mm polyp sigmoid colon, removed. Tattoo rectum without evidence neoplasia Patient reports approximately 1 month ago had esophageal dilation at [facility]. Formal report unavailable for review at this time Continue Protonix IV twice daily GI consulted given history of Mckinney's esophagus. Hold Eliquis and Plavix for now. Orthostatic vitals every 6 hours. Demand ischemia High sensitive troponin elevated to 97 with flat trend 04/01/2024- Echo Normal LV wall motion, EF: 60-65%, grade 2 diastolic dysfunction, moderate calcific valvular aortic stenosis Pacemaker interrogation Monitor on telemetry (4) Abnormal computed tomography of abdomen and pelvis: Plan: CT Abd/pelvis: 1. Interval worsening of metastatic disease since prior PET/CT with enlargement of the right abdominal wall mass and multiple right inguinal and iliac lymph nodes. 2. No evidence of gastrointestinal bleeding. Per chart review PET scan on 02/14/2024: Interval enlargement of a right abdominal wall soft tissue mass, measuring 45 mm in diameter compared to 16 mm in the prior exam, as the 25.9 compared to 19.2 and the prior exam. Interval development of a right inguinal mass, possibly a lymph node, measuring 9 mm, SUV max 16.1. Additional smaller, less FDG avid nodes are seen. (5) Laryngeal cancer: (6) Tracheostomy in place: Plan: History of laryngeal cancer squamous cell S/P laryngectomy, right neck dissection, subtotal thyroidectomy, s/p radiation treatment Recurrence of cancer requiring tracheal stoma Squamous cell cancer in multiple areas s/p radiation treatment Currently on Keytruda Follows with heme-onc History of Mucous plugging of tracheal stoma Suction prn Hypertonic saline nebs Continue home levothyroxine Follows with Dr Monroy, oncology (7) SSS (sick sinus syndrome): Plan: S/P Pacemaker Pacemaker interrogation (8) CAD (coronary artery disease): Plan: S/P CABG in 1995 Denies CP, SOB On Plavix and Eliquis Paroxysmal atrial fibrillation On Eliquis- on hold (9) PVD (peripheral vascular disease): Plan: History Peripheral vascular disease History Bilateral carotid endarterectomy On Plavix- on hold (10) Moderate aortic stenosis: Plan: 04/01/2024 Echo Normal LV wall motion, EF: 60-65%, grade 2 diastolic dysfunction, moderate calcific valvular aortic stenosis DVT Prophylaxis On Eliquis- on hold Full Code Time spent evaluating patient, direct bedside care, chart review, placing orders, interpretation of diagnostic studies, discussion with consultants, patient, and family members, as well as other required patient management activities is 50 minutes Please note the above document was generated using voice recognition software. It may contain grammatical, syntax or spelling errors. Any formal questions or concerns about the content, text or information contained within the body of this dictation should be directly addressed to the provider for clarification Admission and Anticipated Discharge Date Admission Date: April 13, 2024 Subjective Patient seen and examined at bedside. He is comfortable; not in distress No significant overnight events Review of Systems Review of Systems: All systems reviewed & are unremarkable except as noted in Subjective Physical Exam Physical Exam: onstitutional: Awake, alert oriented x 3. Able to voice; writes for communication Neck: Tracheostomy present; no overlying swelling/redness over tracheostomy site/flap. Respiratory: normal respiratory effort, lungs clear to auscultation, no wheeze, rales, rhonchi. Normal insp/exp effort, no accessory muscle use Cardiovascular: S1-S2, no murmur Chest: normal inspection of chest Abdomen: Soft, nontender Skin: no rashes, warm and dry normal turgor Neurologic: PERRL, EOMI, accommodation nl, no face palsy, no dysarthria CN's II- XI intact bilaterally and moves all extremities Psychiatric: A+Ox3, euthymic affect Results & Data Results & Data Vital Signs (Past 12 Hours) Vital Signs Temp Pulse Pulse Resp BP Pulse Ox O2 Del Method 04/14/24 07:53 90 16 98 Room Air 04/14/24 07:38 36.5 C 84 20 158/75 H 98 Room Air 04/14/24 07:15 60 04/14/24 02:31 36.7 C 62 18 149/66 H 98 Trach Collar 04/13/24 23:28 Room Air 04/13/24 23:05 67 18 96 Trach Collar 04/13/24 22:33 37.4 C 71 18 167/68 H 97 Room Air O2 Flow Rate FiO2 04/14/24 07:53 10 21 04/14/24 07:38 04/14/24 07:15 04/14/24 02:31 6 04/13/24 23:28 04/13/24 23:05 6 21 04/13/24 22:33 (2) Anemia Anemia type: unspecified type Qualified Code(s): D64.9 - Anemia, unspecified (8) CAD (coronary artery disease) Associated angina: without angina Coronary Disease-Associated Artery/Lesion type: unspecified vessel or lesion type [place] vs. transplanted heart: [place] heart Qualified Code(s): I25.10 - Atherosclerotic heart disease of [place] coronary artery without angina pectoris
[2024-04-14] MEDS ORDERED: NON-FORMULARY MEDICATION (Iron,Carbonyl-Vitamin C [Vitron-C] 65 mg iron- 125 mg Tablet,Del PO SCH (09:00)
[2024-04-14] MEDS: PANTOprazole 40 MG/10 ML SYR IV SCH (09:46)
[2024-04-14] MEDS: POTASSIUM CHLORIDE PWD 20 MEQ PACK PO SCH (09:46)
--- NOTE | 2024-04-14 10:46 | Gastrointestinal Consultation ---
Date of Consultation April 14, 2024 Assessment & Plan (1) Anemia: Patient is an 83 year old male who presented to the ED after a syncopal episode. he admits to some nausea and vomiting 2 days prior to this episode and feels there was blood in the emesis. Since admission, there have not been any signs of active GI bleeding. he is actively eating and tolerating this without problems. - continue with protonix 40mg IV bid. - follow hgb/hct and transfuse as needed. Supervising Physician Co-Signing Physician Notes I personally saw and examined the patient. I have reviewed the chart and agree with the documentation provided by the PHOTOLITHOGRAPHER including discussion about the assessment, treatment and plan. 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 He felt dizzy and had gone down. Hfb is 8.2 from 9.6. No further bleeding or symptoms currently. He is tolerating a diet currently. He did undergo a endoscopy at [place] with dilation in February and was noted to have some esophagitis. I suspect the bleeding is from this. At this point supportive care with PPI IV twice daily and can we get the Endo report from [place]. It was a rigid endoscopy by ENT Dr. Bravo. In the meantime, supporitve care with ppi bid, diet, and endoluminal evaluation only if she has active bleeding. 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 He felt dizzy and had gone down. He tells me that two days prior to admission he did have some nausea and vomiting and he did see some blood in his emesis. he had no further episodes of this. He denies any abdominal pain or black stools. I spoke with nursing and he has not had any active signs of GI bleeding and has not moved his bowels since admission. when I saw patient, he was eating his breakfast without issues. 04/14 hgb 8.2. 04/13 hgb 9 Allergies Allergy/AdvReac Type Severity Reaction Status Date / Time rosuvastatin [From Crestor] Allergy Unknown Unknown Verified 03/04/24 10:50 Home Medications Medication Instructions Recorded Confirmed Type levothyroxine 125 mcg tablet 125 mcg PO DAILYBB 03/25/18 04/13/24 History nitroglycerin 0.4 mg sublingual 1 tab sublingual UD PRN Chest Pain 03/25/18 04/13/24 History tablet paroxetine HCl 20 mg tablet (Paxil) 20 mg PO HS 03/25/18 04/13/24 History clopidogrel 75 mg tablet 75 mg PO QAM 06/03/18 04/13/24 History albuterol sulfate 2.5 mg/3 mL 2.5 mg inhalation QID PRN 08/19/19 04/13/24 History (0.083 %) solution for nebulization Shortness Of Breath Or Wheezing polyethylene glycol 3350 17 gram 17 g PO DAILY PRN Constipation 11/02/20 04/13/24 History oral powder packet (Miralax) apixaban 5 mg tablet (Eliquis) 5 mg PO AMHS 09/13/21 04/13/24 History omeprazole 20 mg capsule,delayed 20 mg PO DAILY PRN Heartburn 07/24/23 04/13/24 History release folic acid 1 mg tablet 1 mg PO DAILY 03/31/24 04/13/24 History iron,carbonyl 65 mg-vitamin C 125 1 tab PO QAM 03/31/24 04/13/24 History mg tablet,delayed release (Vitron-C) triamcinolone acetonide 0.1 % 1 applic topical BID 03/31/24 04/13/24 History topical cream sodium chloride 7 % for 4 ml NEB BIDR PRN mucus plugging 04/02/24 04/13/24 Rx nebulization #240 mL Patient History Medical History Acute electrocardiogram changes Difficult airway for intubation H/o glidescope #4 with CEA 03/2018 Carotid artery stenosis with cerebral infarction over 8 weeks ago The patient presented to [facility] ED on 03/26/18 with expressive aphasia, left upper extremity numbness, left lower extremity weakness. Symptoms were resolving by the time the patient arrived in the ED. 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 on CPAP no longer on CPAP post tracheostomy Surgical History Hx of laryngectomy History of bronchoscopy History of tonsillectomy History of carotid endarterectomy RIGHT (MARCH 2018) History of cataract extraction with lens replacement cataract extraction with IOL implant and LRI left eye - 05/02/12 History of colonoscopy with polypectomy History of rotator cuff surgery Right - 2009 History of coronary artery bypass graft X2 VESSEL 1995 -- [place] Family History Mother Essential hypertension Stroke Sister Cancer Breast cancer Daughter Cancer Colon cancer Social History (Updated 04/13/24 @ 14:57 by Keiko Mccann PA-C) Smoking Status: Former smoker Tobacco Type: Cigarettes packs per day: 2; Second Hand Exposure: No; Do You Dip or Chew Tobacco: No; Tobacco Cessation Education Requested by Patient: No Hx Alcohol Use: No Hx Substance Use: No Preferred Language: Tanzanian Communication Ability: Impaired Communication Ability Comment: write answers to questions, unable to talk Visual Impairment: No Limitations Professor Of Spanish Required: No Beliefs That Will Affect Care: None marital status: Current Living Situation: Spouse Current Living Situation Comment: home with spouse current occupational status: retired How many Children do You have Comment: Son can help Other Information That Helps Us Care for You: No other: Home health nursing twice per week Feels Safe at Home: Yes Safety Concerns: Feels Safe At This Time Diet: regular during the past year weight has: decreased > 10 lbs Physical Activity Frequency: Does not Exercise Assistive Devices: Other Review of Systems Review of Systems: All systems reviewed & are unremarkable except as noted in HPI & below Physical Exam Constitutional: WD/WN, vitals as above Respiratory: normal respiratory effort, lungs clear to auscultation Cardiovascular: Rate/Rhythm: regular rate and regular rhythm Gastrointestinal (Abdomen): normal bowel sounds, soft, nontender, no hepatosplenomegaly Psychiatric: Orientation: alert and oriented x 3 Results & Data Vital Signs (Past 12 Hours) Vital Signs Temp Pulse Pulse Resp BP Pulse Ox O2 Del Method 04/14/24 09:58 Room Air 04/14/24 07:53 90 16 98 Room Air 04/14/24 07:38 97.7 F 84 20 158/75 H 98 Room Air 04/14/24 07:15 60 04/14/24 02:31 98.1 F 62 18 149/66 H 98 Trach Collar 04/13/24 23:28 Room Air 04/13/24 23:05 67 18 96 Trach Collar O2 Flow Rate FiO2 04/14/24 09:58 04/14/24 07:53 10 21 04/14/24 07:38 04/14/24 07:15 04/14/24 02:31 6 04/13/24 23:28 04/13/24 23:05 6 21 Coding Level of Care Code 98558 INT INP/OBS CARE 2/55MIN Diagnoses Anemia D64.9 Anemia type: unspecified type (1) Anemia Anemia type: unspecified type Qualified Code(s): D64.9 - Anemia, unspecified
[2024-04-14 17:52] LABS: Appearance Urine Clear (Clear); Bilirubin Urine Negative (Negative); Blood Urine Negative (Negative); Color Urine Yellow; Glucose Urine UA Negative (Negative); Ketones Urine Negative (Negative); Leukocyte Esterase Urine Negative (Negative); Nitrite Urine Negative (Negative); Protein Urine Negative (Negative); Urobilinogen Urine Negative (Negative); pH Urine 5.5 (4.5-7.5)
--- NOTE | 2024-04-15 03:06 | Electrocardiogram Report ---
Test Reason : Blood Pressure : */* mmHG Vent. Rate : 60 BPM Atrial Rate : 60 BPM P-R Int : 188 ms QRS Dur : 96 ms QT Int : 512 ms P-R-T Axes : 86 88 64 degrees QTcB Int : 512 ms Atrial-paced rhythm Nonspecific ST abnormality Prolonged QT Abnormal ECG When compared with ECG of 02-Apr-2024 06:03, No significant change Confirmed by Mino Montoya ([id number]) on 04/15/2024 3:06:27 AM Referred By: REFERRED SELF Confirmed By: Mino Montoya
--- NOTE | 2024-04-15 03:07 | Electrocardiogram Report ---
Test Reason : Blood Pressure : */* mmHG Vent. Rate : 62 BPM Atrial Rate : 62 BPM P-R Int : 194 ms QRS Dur : 98 ms QT Int : 496 ms P-R-T Axes : * 72 50 degrees QTcB Int : 504 ms Atrial-paced rhythm Prolonged QT Abnormal ECG When compared with ECG of 13-Apr-2024 15:57, No significant change was found Confirmed by Mino Montoya ([id number]) on 04/15/2024 3:07:01 AM Referred By: REFERRED SELF Confirmed By: Mino Montoya
[2024-04-15 04:42] LABS: Basophils # (auto) 0.04 K/uL (0.00-0.20); Basophils % (auto) 0.4 %; Eosinophils % (auto) 6.3 %; Hemoglobin 8.1 g/dl (14.0-18.0); Immature Granulocytes # (auto) 0.04 K/uL (0.01-0.20); Immature Granulocytes % (auto) 0.4 %; Lymphocytes # (auto) 0.69 K/uL (1.20-3.40); Lymphocytes % (auto) 6.2 %; Mean Corpuscular Hemoglobin 27.6 pg (25.0-34.0); Mean Corpuscular Hgb Conc 32.4 g/dL (32.0-36.0); Mean Platelet Volume 9.1 fL (9.4-12.4); Monocytes % (auto) 7.2 %; Neutrophils # (auto) 8.86 K/uL (1.40-6.50); Neutrophils % (auto) 79.5 %; Platelet Count 345 K/uL (130-400); RDW Coefficient of Variation 16.4 % (11.5-14.5); RDW Standard Deviation 50.2 fL (36.4-46.3); Red Blood Count 2.94 M/uL (4.70-6.10); White Blood Count 11.13 K/ul (4.8-10.8)
[2024-04-15 05:11] LABS: Calcium 8.9 mg/dl (8.6-10.3); Creatinine Clr Calc Pharmacy 69.6 ml/min; Potassium 3.5 mmol/L (3.5-5.1)
--- NOTE | 2024-04-15 09:32 | Gastroenterology Progress Note ---
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 Denies black or bloody stools, tolerating oral intake well, HGB stable w/o report of black or bloody stools. No GI contraindication to diet. Continue supportive care. PPI BID. Trend H&H. Transfuse as needed. I spent a total of 40 minutes on the date of service in review of patient's record, and previously obtained information in person and appropriate medical visit, discussion and education of plan, with patient and/or caregiver, placing orders for tests/referral/procedures as medically necessary and documentation of pertinent clinical information in patient's medical records for their visit today. Admission and Anticipated Discharge Date Admission Date: April 13, 2024 Supervising Physician Co-Signing Physician Notes I personally saw and examined the patient. I have reviewed the chart and agree with the documentation provided by the [employer] including discussion about the assessment, treatment and plan. Briefly, doing better and tolerating diet. PPI twice daily and supportive care at this point. GI will sign off please call with any questions. Subjective Pt was seen and evaluated, chart reviewed. Tolerating breakfast w/o concerns. Feeling well from GI standpoint. Denies black or bloody stools. HGB 8.1 w/ normal BUN. Review of Systems Review of Systems: All other findings negative except as noted in HPI. Physical Exam Constitutional: WD/WN, vitals as above Gastrointestinal (Abdomen): normal bowel sounds, soft, nontender, no hepatosplenomegaly Skin: no rashes, warm and dry Results & Data Results & Data Vital Signs (Past 12 Hours) Vital Signs Temp Pulse Pulse Resp BP Pulse Ox O2 Del Method 04/15/24 07:56 36.6 C 63 20 128/55 L 98 Free Flow/Blow-by 04/15/24 07:42 60 15 95 Room Air 04/15/24 07:24 Trach Collar 04/15/24 03:36 36.6 C 60 18 121/55 L 96 Trach Collar 04/14/24 23:54 37.1 C 96 H 20 158/72 H 96 Room Air 04/14/24 21:49 60 Laboratory Results 04/15/24 04/14/24 Range/Units 04:00 17:45 WBC 11.13 H (4.8-10.8) K/ul RBC 2.94 L (4.70-6.10) M/uL Hgb 8.1 L (14.0-18.0) g/dl Hct 25.0 L (42.0-52.0) % MCV 85.0 (80.0-100.0) fL MCH 27.6 (25.0-34.0) pg MCHC 32.4 (32.0-36.0) g/dL RDW Std Deviation 50.2 H (36.4-46.3) fL RDW Coeff of Sharda 16.4 H (11.5-14.5) % Plt Count 345 (130-400) K/uL MPV 9.1 L (9.4-12.4) fL Immature Gran % (Auto) 0.4 % Neut % (Auto) 79.5 % Lymph % (Auto) 6.2 % Brewster % (Auto) 7.2 % Eos % (Auto) 6.3 % Baso % (Auto) 0.4 % Neut # (Auto) 8.86 H (1.40-6.50) K/uL Lymph # (Auto) 0.69 L (1.20-3.40) K/uL Brewster # (Auto) 0.80 H (0.11-0.59) K/uL Eos # (Auto) 0.70 H (0.00-0.50) K/uL Baso # (Auto) 0.04 (0.00-0.20) K/uL Immature Gran # (Auto) 0.04 (0.01-0.20) K/uL Sodium 136 (136-145) mmol/L Potassium 3.5 (3.5-5.1) mmol/L Chloride 106 (98-107) mmol/L Carbon Dioxide 24 (21-32) mmol/L Anion Gap 6 (3-11) BUN 18 (6-23) mg/dl Creatinine 0.82 (0.6-1.4) mg/dl Est Cr Clr Drug Dosing 69.6 ml/min eGFR 86.62 BUN/Creatinine Ratio 22.0 H (10-20) Glucose 89 (70-99(Fasting)) mg/dl Calcium 8.9 (8.6-10.3) mg/dl Urine Color Yellow Urine Appearance Clear (Clear) Urine pH 5.5 (4.5-7.5) Ur Specific [place]orne 1.020 (1.000-1.030) Urine Protein Negative (Negative) Urine Glucose (UA) Negative (Negative) Urine Ketones Negative (Negative) Urine Blood Negative (Negative) Urine Nitrite Negative (Negative) Urine Bilirubin Negative (Negative) Urine Urobilinogen Negative (Negative) Ur Leukocyte Esterase Negative (Negative) PG Care Time/CCT Total # of Minutes Spent Total Time Spent with Patient: Total time spent is greater than 50% in coordination of care (as documented) at patient's floor/unit and/or counseling patient: Coding Level of Care Code 79171 SUB INP/OBS CARE 2/35MIN Diagnoses Anemia D64.9 Anemia type: unspecified type (1) Anemia Anemia type: unspecified type Qualified Code(s): D64.9 - Anemia, unspecified
[2024-04-15 11:30] VITALS: BP 127/68; PULSE 80; RESP 18; TEMP 97.7; O2SAT 94
--- NOTE | 2024-04-15 14:25 | Discharge Summary ---
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 Patient states was getting outpatient labs this morning. States stood up after lab draw and states felt lightheaded and passed out and fell back into chair. States lasted a few seconds. Denies CP, SOB, BEATTY, vision changes. Patient reports has been having dizziness with standing for couple of months. He reports nausea for couple of months. States vomited approximately one month ago. Reports 2 days ago had One episode of hematemesis 2 days ago had dark color stool. Had one BM after that he reports appeared more normal in coloration. Denies abdominal pain. Denies diarrhea. Per inpatient chart review recent [facility] hospitalization 04/01/24-04/02/2024 mucous plugging of tracheal stoma and was found to have mildly elevated troponin without reported chest pain. Was discharged with prescription for hypertonic saline nebs. He states had fever of 100F couple weeks ago and has been measuring temperature at home and reported normal. Denies BEATTY, dizziness, vision changes, neck pain, CP, SOB, orthopnea, palpitations, cough, otalgia, rhinorrhea, abdominal pain, extremity weakness, extremity edema, rashes, urinary symptoms. Admission Exam Per Admitting Provider General: Not in acute distress Eyes: PERRL, conjunctivae normal, not pale, anicteric sclerae, EOM intact bilaterally ENMT: External ear and nose normal Neck: Tracheostomy Respiratory: Normal respiratory effort, no respiratory distress, lungs clear to auscultation, no crackles and no wheezes Cardiovascular: RRR S1 S2 +murmur Gastrointestinal (Abdomen): Abdomen is not distended, soft, non-tender to palpation, no guarding, no palpable hepatosplenomegaly, normal bowel sounds Musculoskeletal: No pedal edema Neurologic: No focal weakness, sensation grossly intact Psychiatric: Alert and oriented x 3, euthymic affect Principal Diagnosis Possible UGI bleed Syncope likely Orthostatic hypotension Discharge Exam onstitutional: Awake, alert oriented x 3. Able to voice; writes for communication Neck: Tracheostomy present; no overlying swelling/redness over tracheostomy site/flap. Respiratory: normal respiratory effort, lungs clear to auscultation, no wheeze, rales, rhonchi. Normal insp/exp effort, no accessory muscle use Cardiovascular: S1-S2, no murmur Chest: normal inspection of chest Abdomen: Soft, nontender Skin: no rashes, warm and dry normal turgor Neurologic: PERRL, EOMI, accommodation nl, no face palsy, no dysarthria CN's II- XI intact bilaterally and moves all extremities Psychiatric: A+Ox3, euthymic affect Discharge Data Allergies Allergy/AdvReac Type Severity Reaction Status Date / Time rosuvastatin [From Crestor] Allergy Unknown Unknown Verified 03/04/24 10:50 Consultations 04/13/24 14:00 ED Decision to Admit Stat 04/14/24 08:20 Consult Gastroenterology Routine Ordered Studies 04/13/24 11:00 CT Abd and Pelvis [CT abd pelvis IV con only] Stat Hospital Course (1) Syncope: (2) Anemia: (3) GI bleed: (4) Abnormal computed tomography of abdomen and pelvis: (5) Laryngeal cancer: (6) Tracheostomy in place: (7) SSS (sick sinus syndrome): (8) CAD (coronary artery disease): (9) PVD (peripheral vascular disease): (10) Moderate aortic stenosis: Plan Patient is 83-year-old male with PMH 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 Reports felt dizzy when standing. Denies CP, SOB. 2 days Prior to admission, bo had one episode of hematemesis and one BM melena. No melena or recurrent hematemesis since. Possible UGI bleed Syncope likely Orthostatic hypotension Patient presented to the ED after he had a syncopal episode while standing up in the cancer care unit. Recent history of low blood pressure; patient has been titrated off antihypertensive as outpatient. Reported history of hematemesis 2 days prior to admission. Hemoglobin of 9.8 on admission 02/14/2011 EGD: Mckinney's esophagus 10/11/2014 colonoscopy: 3 mm polyp sigmoid colon, removed. Tattoo rectum without evidence neoplasia Patient reports approximately 1 month ago had esophageal dilation at [facility]. Formal report unavailable for review at this time During the hospitalization, patient was started on Protonix IV twice daily. GI was consulted for comanagement. Patient did not have any signs or symptoms of upper GI bleed during the hospitalization. Patient was prescribed Protonix 40 mg twice daily to be taken at home. Eliquis and Plavix were continued at discharge. As per his orthostatic hypotension; patient was given IV fluids. Compression stockings were placed in bilateral lower extremities. Discussion was done in detail with patient regarding different exercise techniques to minimize orthostatic hypotension. Patient was moving inside the room and on the hallways independently without any dizziness. Please note the above document was generated using voice recognition software. It may contain grammatical, syntax or spelling errors. Any formal questions or concerns about the content, text or information contained within the body of this dictation should be directly addressed to the provider for clarification Total Time Total Time Spent Total Time Spent (In Minutes): 45 Total Time Includes: Examination of the Patient, Discharge Planning, Medication Reconciliation, Communication With Other Providers and Other Discharge Plan Discharge Items Patient Disposition: Home - Self-Care Reason For Visit: SYNCOPE Discharge Diagnosis: Possible upper GI bleed Syncope due to orthostatic hypotension Activity: Resume your previous activity Non-emergency contact: Primary Care Provider Call non-emergency contact if: you have any medication questions and your symptoms worsen Follow-up/Referrals: Neto Rasheed MD [Primary Care Provider] - Diet: Regular Addtl Attending Provider Instructions: You were admitted to the hospital due to a syncopal event. The likely cause for it is orthostatic hypotension. Please follow the instruction in the pamphlet provided. Please follow the exercise instructions. You are also evaluated by GI physician for concern of hematemesis. You are prescribed Protonix 40 mg to be taken twice a day for next 4 weeks. After the completion of 4 weeks, you can take it once a day. Please monitor signs or symptoms of any bleeding episodes/dark stools. Pending Studies at Discharge: No Stand-Alone Forms: My [facility] [employer], Smoking Cessation Medications and DC Order Prescriptions: New pantoprazole [Protonix] 40 mg tablet,delayed release (DR/EC) 40 mg PO BID 28 Days Qty: 56 0RF Continued paroxetine HCl [Paxil] 20 mg tablet 20 mg PO HS levothyroxine 125 mcg tablet 125 mcg PO DAILYBB nitroglycerin 0.4 mg tablet, sublingual 1 tab Sublingual UD PRN (Reason: Chest Pain) Patient Comments: Never had to use albuterol sulfate 2.5 mg /3 mL (0.083 %) Solution For Nebulization 2.5 mg INHALATION QID PRN (Reason: Shortness Of Breath Or Wheezing) clopidogrel 75 mg tablet 75 mg PO QAM Eliquis 5 mg tablet 5 mg PO AMHS polyethylene glycol 3350 [Miralax] 17 gram powder in packet 17 g PO DAILY PRN (Reason: Constipation) triamcinolone acetonide 0.1 % cream 1 applic TOPICAL BID Rx Instructions: to affected area as directed folic acid 1 mg Tablet 1 mg PO DAILY Vitron-C 65 mg iron- 125 mg Tablet,Delayed Release (Dr/Ec) 1 tab PO QAM sodium chloride 7 % Solution For Nebulization 4 ml NEB BIDR PRN (Reason: mucus plugging) Qty: 240 0RF Discontinued omeprazole 20 mg capsule,delayed release(DR/EC) 20 mg PO DAILY PRN (Reason: Heartburn) Discharge Orders: Discharge Order (Routine); Ordered 04/15/24 Ordered By: Long Rodriguez Admission Data Admit Date/Time: 04/13/24 14:22 Attending Provider: Long Rodriguez Admit Provider: [place] [facility]. Primary Care Provider: Neto Rasheed Other Providers: [place] [facility].; Zoran Cesar Other Interventions: Discharge Summary Assessment (RN) Last Done: 04/15/24 11:19
== END 2024-04-15 12:33 | disposition home or self-care (01) | DRG 312 ==
LOC: ED 10:28 → SUATTDRO 14:22 → INTOOBSV 14:22 → EDINP 14:22 → 2N 15:00

== ENCOUNTER 2024-05-04 15:56 | Observation (INO) ==
[2024-05-04 16:16] VITALS: TEMP 98.1
--- NOTE | 2024-05-04 16:23 | Emergency Department Note ---
Impression & Plan Tracheostomy in place, Hypoxia, History of laryngeal cancer, Leukocytosis, Mucus plug in respiratory tract, Mucus plugging of bronchi ED Provider Note NAME: ALEXANDRA PETERS AGE: 83 SEX: M : 1940 ARRIVES VIA: Ambulance INFORMANT: Patient, ED PROVIDER(S): Louis Laguerre MD CHIEF COMPLAINT: Poor p.o. intake, hypoxia, weakness, dizziness MEDICAL DECISION MAKING: Patient presents with the above. IV was established and blood work was obtained. I did speak with respiratory did perform suctioning of the patient's trach site. Patient did have DuoNebs ordered along with IV fluids. Sputum culture and Gram stain ordered. Patient did receive empiric dose of IV Zosyn. Does show leukocytosis of 15,000. The patient's kidney function is unremarkable. BioFire ordered. Patient's electrolytes are grossly unremarkable negative troponin. Pro-Julius is negative. Chest x-ray does not show any obvious postobstructive pneumonia. Does sound as though the patient did have some mucous plugging status post expectoration and likely has had improvement in his oxygen saturations. Do believe the patient would benefit from further pulmonary toilet and monitoring in light of the patient's symptoms. I did speak with Dr. Alcala with the [facility] service and the patient was admitted to the medicine service. Discussion w/ other healthcare providers: [facility] Prior /Outside records reviewed: None Differential diagnosis: Reactive airway disease, pneumonia, pneumothorax, COPD, CHF, ACS, pulmonary embolism, musculoskeletal, GERD as well as other pathologies were considered. Diagnostics, as interpreted by me: ECG: A paced rhythm, rate of 64, normal intervals, normal axis no ST elevations. Cardiac monitoring: An order was placed for continuous cardiac monitoring. The monitor shows a rate of 65 with paced rhythm. Patient was placed on pulse oximetry Medical decision rules: none Imaging studies: I informally interpreted the patient's chest x-ray without obvious pneumonia or pneumothorax with formal report to follow. HPI: Patient presents due to concern for weakness fatigue decreased p.o. intake. Patient also has concerns for recent dizziness as well as syncope. The patient was following up for syncope and dizziness and was noted to be hypoxic was placed nasal cannula at his trach site which did improve his oxygenation from the 70s to 100s. Per EMS the patient did have improvement in his saturations and was afebrile. The patient does admit to feeling increasing weak and fatigued. He does admit that some of his poor p.o. intake is his downfall. 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 Patient denies any chest pains. He has had some mild shortness of breath. No leg swelling or abdominal pain no nausea vomiting or diarrhea. EMS reported the patient was coughing up productive sputum from his trach stoma site. PAST MEDICAL HISTORY: See Below PAST SURGICAL HISTORY: See Below SOCIAL HISTORY: See Below HOME MEDICATIONS: See Below ALLERGIES: See Below VITALS: See Below PHYSICAL EXAMINATION: GENERAL: NAD, non-toxic. EYE EXAM: Normal conjunctiva. PERRL, no anisocoria and EOM's grossly intact w/o pain. OROPHARYNX: Moist mucus membranes, grossly normal dentition. NECK: Trachea midline, no stridor. Supple, no nuchal rigidity, no adenopathy, non-tender. No signs of meningismus. FROM of the neck with good chin to chest and neck extension. LUNGS: Coarse sounds throughout. Normal chest wall mechanics. HEART: NSR, no MRG. ABDOMEN: Abdomen soft, non-tender, no masses, no rebound or guarding. BACK: No CVA TTP. SKIN: No rashes and no bruising. UPPER EXTREMITIES: Upper extremities are grossly normal. LOWER EXTREMITIES: Grossly normal, no edema. NEURO EXAM: A&O x3, cranial nerves II-XII grossly intact, normal speech, moves all 4 extremities. 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) Anemia (Acute) Tracheostomy in place (Acute) Leukocytosis (Acute) Laryngeal cancer (Acute) Cellulitis (Acute) 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 (Acute) Severe sepsis Bacteremia due to Enterococcus (Acute) Sepsis Aspiration pneumonia (Acute) Aspiration pneumonia (Acute) Acute dyspnea (Acute) History of laryngectomy Aspiration pneumonia Multifocal pneumonia (Acute) Tracheostomy in place (Acute) Tracheobronchitis Hypoxia (Acute) SSS (sick sinus syndrome) (Chronic) History of CVA (cerebrovascular accident) (Chronic) February 2018, no deficits Tracheostomy in place (Acute) COPD (chronic obstructive pulmonary disease) Acute hypoxemic respiratory failure Peripheral eosinophilia Elevated troponin (Acute) Stenosis of left internal carotid artery History of cataract surgery (Chronic) H/O repair of right rotator cuff (Chronic) Anxiety (Chronic) 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 Symptoms were resolving by the time the patient arrived in the ED. 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 on CPAP no longer on CPAP post tracheostomy Surgical History Hx of laryngectomy (~1999) History of bronchoscopy History of tonsillectomy History of carotid endarterectomy RIGHT (MARCH 2018) History of cataract extraction with lens replacement cataract extraction with IOL implant and LRI left eye - 05/02/12 History of colonoscopy with polypectomy History of rotator cuff surgery Right - 2009 History of coronary artery bypass graft X2 [facility] Family History Mother Essential hypertension Stroke Sister Cancer Breast cancer Daughter Cancer Colon cancer Social History Smoking Status: Former smoker Tobacco Type: Cigarettes Age Quit Using Tobacco: 55; packs per day: 2; Second Hand Exposure: No; Do You Dip or Chew Tobacco: No; Hx Alcohol Use: No Hx Substance Use: No Preferred Language: Azeri Communication Ability: Effective Communication Ability Comment: write answers to questions, unable to talk Visual Impairment: No Limitations Marker Maker Required: No Beliefs That Will Affect Care: None marital status: Current Living Situation: Spouse Current Living Situation Comment: home with spouse current occupational status: retired How many Children do You have: 2 How many Children do You have Comment: Son can help other: Home health nursing twice per week Feels Safe at Home: Yes Diet: regular during the past year weight has: decreased > 10 lbs Physical Activity Frequency: Does not Exercise Assistive Devices: Walker Allergies Allergies Allergy/AdvReac Type Severity Reaction Status Date / Time rosuvastatin [From Crestor] Allergy Unknown Unknown Verified 04/26/24 09:53 Home Meds Home Medications Medication Instructions Recorded Confirmed levothyroxine 125 mcg tablet 0 mcg PO DAILYBB 03/25/18 05/04/24 nitroglycerin 0.4 mg sublingual 1 tab sublingual UD PRN Chest Pain 03/25/18 05/04/24 tablet clopidogrel 75 mg tablet 0 mg PO QAM 06/03/18 05/04/24 albuterol sulfate 2.5 mg/3 mL 2.5 mg inhalation QID PRN 08/19/19 05/04/24 (0.083 %) solution for nebulization Shortness Of Breath Or Wheezing polyethylene glycol 3350 17 gram 17 g PO DAILY PRN Constipation 11/02/20 05/04/24 oral powder packet (Miralax) apixaban 5 mg tablet (Eliquis) 0 mg PO AMHS 09/13/21 05/04/24 folic acid 1 mg tablet 0 mg PO DAILY 03/31/24 05/04/24 iron,carbonyl 65 mg-vitamin C 125 1 tab PO QAM 03/31/24 05/04/24 mg tablet,delayed release (Vitron-C) triamcinolone acetonide 0.1 % 1 applic topical BID 03/31/24 05/04/24 topical cream Previous Rx's Medication Instructions Recorded sodium chloride 7 % for 4 ml NEB BIDR PRN mucus plugging 04/02/24 nebulization #240 mL pantoprazole 40 mg tablet,delayed 40 mg PO BID 28 days #56 tabs 04/15/24 release (Protonix) Results & Data (ED) Vital Signs Vital Signs - 24 hr 05/04/24 16:11 05/04/24 16:31 05/04/24 16:31 Temperature 36.7 C Temperature Source Oral Pulse Rate 84 66 Pulse Rate [Apical] 67 Respiratory Rate 20 16 20 Respiratory Effort / Characteristics Non-Labored Spontaneous Non-Labored Spontaneous Respiratory Depth Normal Blood Pressure 133/108 H Blood Pressure [Left Arm] 138/66 Blood Pressure Mean 116 Blood Pressure Mean [Left Arm] 90 Blood Pressure Position Sitting Blood Pressure Position [Left Arm] Pulse Oximetry 97 100 100 Oxygen Delivery Method Room Air Room Air Room Air Oxygen Flow Rate Fraction of Inspired Oxygen Sepsis Recent Fever Within 48 Hours No Sepsis New/Unexplained Change in Mental Status No Sepsis Action Taken by Nursing No Action Required 05/04/24 16:32 05/04/24 16:59 05/04/24 18:08 Temperature Temperature Source Pulse Rate 68 Pulse Rate [Apical] 67 68 Respiratory Rate 24 18 Respiratory Effort / Characteristics Spontaneous Non-Labored Spontaneous Respiratory Depth Blood Pressure Blood Pressure [Left Arm] 153/82 H Blood Pressure Mean Blood Pressure Mean [Left Arm] 105 Blood Pressure Position Blood Pressure Position [Left Arm] Lying Pulse Oximetry 100 100 Oxygen Delivery Method Trach Collar Room Air Oxygen Flow Rate 10 Fraction of Inspired Oxygen 35 Sepsis Recent Fever Within 48 Hours Sepsis New/Unexplained Change in Mental Status Sepsis Action Taken by Halfway Medications Current Medication List: was personally reviewed by me Laboratory Data Attestation: I reviewed the patient's lab results. 05/05/24 04:39 05/05/24 04:39 Lab Results 05/04/24 05/04/24 Range/Units 16:15 17:24 WBC 15.10 H (4.8-10.8) K/ul RBC 3.87 L (4.70-6.10) M/uL Hgb 10.7 L (14.0-18.0) g/dl Hct 32.7 L (42.0-52.0) % MCV 84.5 (80.0-100.0) fL MCH 27.6 (25.0-34.0) pg MCHC 32.7 (32.0-36.0) g/dL RDW Std Deviation 49.1 H (36.4-46.3) fL RDW Coeff of Sharda 15.9 H (11.5-14.5) % Plt Count 515 H (130-400) K/uL MPV 8.7 L (9.4-12.4) fL Immature Gran % (Auto) 0.5 % Neut % (Auto) 85.7 % Lymph % (Auto) 4.4 % Fajardo % (Auto) 4.8 % Eos % (Auto) 4.3 % Baso % (Auto) 0.3 % Neut # (Auto) 12.92 H (1.40-6.50) K/uL Lymph # (Auto) 0.67 L (1.20-3.40) K/uL Fajardo # (Auto) 0.73 H (0.11-0.59) K/uL Eos # (Auto) 0.65 H (0.00-0.50) K/uL Baso # (Auto) 0.05 (0.00-0.20) K/uL Immature Gran # (Auto) 0.08 (0.01-0.20) K/uL Sodium 137 (136-145) mmol/L Potassium 4.0 (3.5-5.1) mmol/L Chloride 103 (98-107) mmol/L Carbon Dioxide 21 (21-32) mmol/L Anion Gap 13 H (3-11) BUN 14 (6-23) mg/dl Creatinine 0.88 (0.6-1.4) mg/dl Est Cr Clr Drug Dosing 64.5 ml/min eGFR 84.79 BUN/Creatinine Ratio 15.9 (10-20) Glucose 96 (70-99(Fasting)) mg/dl Calcium 10.2 (8.6-10.3) mg/dl Magnesium 1.9 (1.7-2.4) mg/dl Total Bilirubin 0.6 (0.2-1.0) mg/dl AST 17 (13-39) U/L ALT 11 (7-52) U/L Alkaline Phosphatase 82 (34-104) U/L Troponin I High Sens 10.6 (0-20) pg/ml Total Protein 7.5 (6.0-8.3) gm/dl Albumin 3.5 (3.4-5.0) gm/dl Globulin 4.0 (2.5-4.0) gm/dl Albumin/Globulin Ratio 0.9 (0.9-2) Procalcitonin 0.09 (0-0.5) ng/ml TSH 3.692 (0.300-4.500) uIu/ml Adenovirus (PCR) Not Detected (NotDetected) B. pertussis DNA (PCR) Not Detected (NotDetected) B.parapertussis DNA PCR Not Detected (NotDetected) C. pneumoniae DNA (PCR) Not Detected (NotDetected) Coronavirus OC43 (PCR) Not Detected (NotDetected) Coronavirus HKU1 (PCR) Not Detected (NotDetected) Coronavirus 229E (PCR) Not Detected (NotDetected) SARS-CoV-2 (PCR) Not Detected (NotDetected) Coronavirus NL63 (PCR) Not Detected (NotDetected) Human Metapneumovir PCR Not Detected (NotDetected) Influenza Type A (PCR) Not Detected (NotDetected) Influenza Type B (PCR) Not Detected (NotDetected) M. pneumoniae (PCR) Not Detected (NotDetected) Parainfluenza 1 (PCR) Not Detected (NotDetected) Parainfluenza 2 (PCR) Not Detected (NotDetected) Parainfluenza 3 (PCR) Not Detected (NotDetected) Parainfluenza 4 (PCR) Not Detected (NotDetected) RSV (PCR) Not Detected (NotDetected) Entero/Rhino (PCR) Not Detected (NotDetected) Administered Medications Albuterol (Albut/Ipratrop 3mg/0.5mg Neb 3 Ml Vial) 3 ml NEB QIDR [facility]; Protocol Stop: 06/03/24 23:12 Last Admin: 05/05/24 06:12 Dose: 3 ml Documented By: Admin: 05/05/24 02:12 Dose: 3 ml Documented By: TITO Apixaban (Apixaban 5 Mg Tablet) 5 mg PO [facility] Stop: 06/03/24 23:12 Last Admin: 05/05/24 08:59 Dose: 5 mg Documented By: Admin: 05/05/24 00:23 Dose: 5 mg Documented By: RUBIN Clopidogrel Bisulfate (Clopidogrel Bisulfate 75 Mg Tab) 75 mg PO QAM [facility] Stop: 06/04/24 08:59 Last Admin: 05/05/24 08:59 Dose: 75 mg Documented By: MADYSON Levothyroxine Sodium (Levothyroxine Sodium 125 Mcg Tablet) 125 mcg PO DAILYBB [facility] Stop: 06/04/24 06:29 Last Admin: 05/05/24 06:10 Dose: 125 mcg Documented By: MIK Ondansetron HCl (Ondansetron Inj 2 Mg/Ml 2 Ml Vial) 4 mg IV Q6H PRN PRN Reason: Nausea Stop: 06/03/24 23:12 Last Admin: 05/05/24 04:16 Dose: 4 mg Documented By: MIK Pantoprazole Sodium (Pantoprazole 40 Mg Tab) 40 mg PO BID [facility] Stop: 06/03/24 23:12 Last Admin: 05/05/24 08:59 Dose: 40 mg Documented By: Admin: 05/05/24 00:22 Dose: 40 mg Documented By: RUBIN Paroxetine HCl (Paroxetine Hcl 20 Mg Tab) 20 mg PO HS [facility] Stop: 06/03/24 23:12 Last Admin: 05/05/24 00:22 Dose: 20 mg Documented By: RUBIN Sodium Chloride (Sodium Chlor 7% 4 Ml Neb) 4 ml NEB QIDR [facility] Stop: 06/03/24 23:12 Last Admin: 05/05/24 06:12 Dose: 4 ml Documented By: Admin: 05/05/24 02:12 Dose: 4 ml Documented By: TITO Discontinued Medications Albuterol (Albut/Ipratrop 3mg/0.5mg Neb 3 Ml Vial) 3 ml NEB NOW STA; Protocol Stop: 05/04/24 16:15 Last Admin: 05/04/24 16:59 Dose: 3 ml Documented By: EM Albuterol (Albut/Ipratrop 3mg/0.5mg Neb 3 Ml Vial) 3 ml NEB NOW STA; Protocol Stop: 05/04/24 17:27 Last Admin: 05/04/24 17:38 Dose: 3 ml Documented By: JOE Sodium Chloride (Nss) 500 mls @ 999 mls/hr IV .Q31M ONE Stop: 05/04/24 16:44 Last Infusion: 05/04/24 19:03 Dose: Infused Documented By: Admin: 05/04/24 16:40 Dose: 999 mls/hr Documented By: EDSON Piperacillin Sod/Tazobactam Sod (Zosyn) 4.5 gm in 100 mls @ 200 mls/hr IV NOW ONE; Protocol Stop: 05/04/24 16:53 Last Infusion: 05/04/24 19:03 Dose: Infused Documented By: Admin: 05/04/24 17:42 Dose: 200 mls/hr Documented By: CC Sodium Chloride (Nss) 500 mls @ 999 mls/hr IV .Q31M ONE Stop: 05/04/24 17:56 Last Infusion: 05/04/24 19:03 Dose: Infused Documented By: Admin: 05/04/24 17:41 Dose: 999 mls/hr Documented By: CC Imaging Data Radiologist's Impression: Chest X-Ray 05/04/24 16:14 EXAM: X-ray chest one-view portable CLINICAL HISTORY: Chest pain PRIORS: 04/13/2024 TECHNIQUE: X-ray chest one-view portable FINDINGS: The chest is hyperexpanded. Costophrenic angles are omitted on the frontal view. Left-sided cardiac device noted with leads unchanged in position. No airspace consolidation, effusion or congestive changes. Heart size is normal. No pneumothorax. Trachea is patent. Osseous structures demonstrate no acute abnormality. No radiopaque foreign body. IMPRESSION: No plain film evidence of an acute cardiopulmonary process. Radiographic features favoring underlying COPD/pulmonary emphysema. ACT 112: Positive. There are findings on this examination that require communication between the performing entity and the patient following Patient Test Result Information Act ([place] ACT 112) guidelines. Electronically signed by Jane Thao 05-04-2024 5:11 PM Discharge Plan Visit Data Chief Complaint: Illness Stated Complaint: ILLNESS ED Provider: Louis Laguerre Discharge Problem: Tracheostomy in place, Hypoxia, History of laryngeal cancer, Leukocytosis, Mucus plug in respiratory tract, Mucus plugging of bronchi Patient Disposition: Admitted As Inpatient Condition: Good Discharge Instructions Interventions: ED Discharge Assessment Last Done: 05/04/24 22:15 Discharge Problem: Leukocytosis Qualifiers: Leukocytosis type: unspecified Qualified Code(s): D72.829 - Elevated white blood cell count, unspecified
[2024-05-04] MEDS: SODIUM CHLORIDE 0.9% 500 ML IV ONE ×2 (16:40→17:41)
[2024-05-04 16:44] LABS: Basophils # (auto) 0.05 K/uL (0.00-0.20); Basophils % (auto) 0.3 %; Eosinophils # (auto) 0.65 K/uL (0.00-0.50); Eosinophils % (auto) 4.3 %; Hematocrit (blood only) 32.7 % (42.0-52.0); Hemoglobin 10.7 g/dl (14.0-18.0); Immature Granulocytes # (auto) 0.08 K/uL (0.01-0.20); Immature Granulocytes % (auto) 0.5 %; Lymphocytes # (auto) 0.67 K/uL (1.20-3.40); Lymphocytes % (auto) 4.4 %; Mean Corpuscular Hemoglobin 27.6 pg (25.0-34.0); Mean Corpuscular Hgb Conc 32.7 g/dL (32.0-36.0); Mean Corpuscular Volume 84.5 fL (80.0-100.0); Mean Platelet Volume 8.7 fL (9.4-12.4); Monocytes # (auto) 0.73 K/uL (0.11-0.59); Monocytes % (auto) 4.8 %; Neutrophils # (auto) 12.92 K/uL (1.40-6.50); Neutrophils % (auto) 85.7 %; Platelet Count 515 K/uL (130-400); RDW Coefficient of Variation 15.9 % (11.5-14.5); RDW Standard Deviation 49.1 fL (36.4-46.3); Red Blood Count 3.87 M/uL (4.70-6.10)
[2024-05-04 16:55] LABS: Albumin Globulin Ratio 0.9 (0.9-2); Albumin Level 3.5 gm/dl (3.4-5.0); BUN Creatinine Ratio 15.9 (10-20); Bilirubin,Total 0.6 mg/dl (0.2-1.0); Calcium 10.2 mg/dl (8.6-10.3); Creatinine Clr Calc Pharmacy 64.5 ml/min; Magnesium 1.9 mg/dl (1.7-2.4); Total Protein 7.5 gm/dl (6.0-8.3)
[2024-05-04] MEDS: ALBUT/IPRATROP 3MG/0.5MG NEB 3 ML VIAL NEB STA ×2 (16:59→17:38)
[2024-05-04 17:02] LABS: Troponin I High Sensitivity 10.6 pg/ml (0-20)
[2024-05-04 17:11] LABS: Thyroid Stimulating Hormone 3.692 uIu/ml (0.300-4.500)
--- NOTE | 2024-05-04 17:12 | XRay Report ---
EXAM: X-ray chest one-view portable CLINICAL HISTORY: Chest pain PRIORS: 04/13/2024 TECHNIQUE: X-ray chest one-view portable FINDINGS: The chest is hyperexpanded. Costophrenic angles are omitted on the frontal view. Left-sided cardiac device noted with leads unchanged in position. No airspace consolidation, effusion or congestive changes. Heart size is normal. No pneumothorax. Trachea is patent. Osseous structures demonstrate no acute abnormality. No radiopaque foreign body. IMPRESSION: No plain film evidence of an acute cardiopulmonary process. Radiographic features favoring underlying COPD/pulmonary emphysema. ACT 112: Positive. There are findings on this examination that require communication between the performing entity and the patient following Patient Test Result Information Act ([place] ACT 112) guidelines. Electronically signed by Jane Thao 05-04-2024 5:11 PM
[2024-05-04] MEDS: PIPERACILLIN/TAZOBACTAM 4.5 GM/100 ML BAG IV ONE (17:42)
--- NOTE | 2024-05-04 18:09 | History & Physical Report ---
Date of Service May 04, 2024 Assessment & Plan (1) Respiratory distress: Plan: Etiology of this is not clear but may have been a transient mucous plug which removed by itself during cough, chest x-ray is not concerning there is no infiltrate or any collapse. Patient is not tachypneic, he has minimal leukocytosis which is not concerning. Viral panel is pending. Monitor oxygen requirements overnight although he is doing well on room air, continue nebulizer treatment every 6 hours as needed, okay with every 6 hours hypertonic saline nebulizer as well. Reevaluate in the morning for possible discharge home. (2) History of atrial fibrillation: Plan: Heart rate is controlled, resume Eliquis. (3) History of coronary artery disease: Plan: Continue with Plavix based on his home medications as far as I could see. (4) Hypothyroidism (acquired): Plan: Resume Synthroid 125 mcg daily. (5) Depression: Plan: Resume home dose of Paxil 20 mg daily. Plan Placed in observation, monitor oxygen requirement and respiration, reevaluate in the morning for possible discharge. 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 Today they had an appointment with his primary care provider and by the time they arrived, patient was then urgently asked to be sent to the emergency room, stated that patient's oxygen was low into 70s. By the time patient arrived to the hospital, his status was stable, his oxygen saturation was checked by myself from the room and it was in the mid 90s on room air, chest x-ray was reviewed by myself also and the report was reviewed which showed no finding, agreed on keeping him in observation and considering that this may have been a mucous plug which resolved by itself. Allergies Allergy/AdvReac Type Severity Reaction Status Date / Time rosuvastatin [From Crestor] Allergy Unknown Unknown Verified 04/26/24 09:53 Home Medications Medication Instructions Recorded Confirmed Type levothyroxine 125 mcg tablet 125 mcg PO DAILYBB 03/25/18 04/26/24 History nitroglycerin 0.4 mg sublingual 1 tab sublingual UD PRN Chest Pain 03/25/18 04/26/24 History tablet paroxetine HCl 20 mg tablet (Paxil) 20 mg PO HS 03/25/18 04/26/24 History clopidogrel 75 mg tablet 75 mg PO QAM 06/03/18 04/26/24 History albuterol sulfate 2.5 mg/3 mL 2.5 mg inhalation QID PRN 08/19/19 04/26/24 History (0.083 %) solution for nebulization Shortness Of Breath Or Wheezing polyethylene glycol 3350 17 gram 17 g PO DAILY PRN Constipation 11/02/20 04/26/24 History oral powder packet (Miralax) apixaban 5 mg tablet (Eliquis) 5 mg PO AMHS 09/13/21 04/26/24 History folic acid 1 mg tablet 1 mg PO DAILY 03/31/24 04/26/24 History iron,carbonyl 65 mg-vitamin C 125 1 tab PO QAM 03/31/24 04/26/24 History mg tablet,delayed release (Vitron-C) triamcinolone acetonide 0.1 % 1 applic topical BID 03/31/24 04/26/24 History topical cream sodium chloride 7 % for 4 ml NEB BIDR PRN mucus plugging 04/02/24 04/26/24 Rx nebulization #240 mL pantoprazole 40 mg tablet,delayed 40 mg PO BID 28 days #56 tabs 04/15/24 04/26/24 Rx release (Protonix) Past Med/Surg History Problem List (Updated 05/04/24 @ 18:08 by Rocael Scott MD) Depression Hypothyroidism (acquired) History of coronary artery disease History of atrial fibrillation Respiratory distress PVD (peripheral vascular disease) Abnormal computed tomography of abdomen and pelvis GI bleed Syncope Melena (Acute) Hematemesis (Acute) Elevated troponin (Acute) Elevated troponin 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) Anemia (Acute) Tracheostomy in place (Acute) Leukocytosis (Acute) Laryngeal cancer (Acute) Cellulitis (Acute) 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 Severe sepsis Bacteremia due to Enterococcus (Acute) Sepsis Aspiration pneumonia (Acute) Aspiration pneumonia (Acute) Acute dyspnea (Acute) History of laryngectomy Aspiration pneumonia Multifocal pneumonia (Acute) Tracheostomy in place (Acute) Tracheobronchitis Hypoxia (Acute) SSS (sick sinus syndrome) (Chronic) History of CVA (cerebrovascular accident) (Chronic) February 2018, no deficits Tracheostomy in place (Acute) COPD (chronic obstructive pulmonary disease) Acute hypoxemic respiratory failure Peripheral eosinophilia Elevated troponin (Acute) Stenosis of left internal carotid artery History of cataract surgery (Chronic) H/O repair of right rotator cuff (Chronic) Anxiety (Chronic) 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 Dyslipidemia (Chronic) HTN (hypertension) (Chronic) GERD (gastroesophageal reflux disease) (Chronic) COPD (chronic obstructive pulmonary disease) (Chronic) Medical History (Updated 05/04/24 @ 18:08 by Rocael Scott MD) S/P radiation therapy Thyroid disease Back problem Moderate aortic stenosis Acute electrocardiogram changes Difficult airway for intubation H/o glidescope #4 with CEA 03/2018 Carotid artery stenosis with cerebral infarction over 8 weeks ago The patient presented to [facility] ED on 03/26/18 with expressive aphasia, left upper extremity numbness, left lower extremity weakness. Symptoms were resolving by the time the patient arrived in the ED. 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 on CPAP no longer on CPAP post tracheostomy Surgical History (Updated 04/26/24 @ 10:12 by Raiza Galarza RN) Hx of laryngectomy (~1999) History of bronchoscopy History of tonsillectomy History of carotid endarterectomy RIGHT (MARCH 2018) History of cataract extraction with lens replacement cataract extraction with IOL implant and LRI left eye - 05/02/12 History of colonoscopy with polypectomy History of rotator cuff surgery Right - 2009 History of coronary artery bypass graft X2 VESSEL 1995 -- [facility] Family History Mother Essential hypertension Stroke Sister Cancer Daughter Cancer Social History (Updated 04/26/24 @ 10:14 by Raiza Galarza, SELENE) Smoking Status: Former smoker Tobacco Type: Cigarettes Age Quit Using Tobacco: 55; packs per day: 2; Second Hand Exposure: No; Do You Dip or Chew Tobacco: No; Hx Alcohol Use: No Hx Substance Use: No Preferred Language: Italian Communication Ability: Impaired Communication Ability Comment: write answers to questions, unable to talk Visual Impairment: No Limitations [employer] Required: No Beliefs That Will Affect Care: None marital status: Current Living Situation: Spouse Current Living Situation Comment: home with spouse current occupational status: retired How many Children do You have: 2 How many Children do You have Comment: Son can help other: Home health nursing twice per week Feels Safe at Home: Yes Diet: regular during the past year weight has: decreased > 10 lbs Physical Activity Frequency: Does not Exercise Assistive Devices: Other Review of Systems Review of Systems: Constitutional: No Weight Change, No Fever, No Chills, No Night Sweats, No Fatigue, No Malaise ENT/Mouth: No Hearing Changes, No Ear Pain, No Nasal Congestion, No Sinus Pain, No Hoarseness, No sore throat, No Rhinorrhea, No Swallowing Difficulty Eyes: No Eye Pain, No Swelling, No Redness, No Foreign Body, No Discharge, No Vision Changes Cardiovascular: No Chest Pain, No SOB, No PND, No Dyspnea on Exertion, No Orthopnea, No Claudication, No Edema, No Palpitations Respiratory: Feeling shortness of breath and the low oxygen, frequent cough Gastrointestinal: No Nausea, No Vomiting, No Diarrhea, No Constipation, No Pain, No Heartburn, No Anorexia, No Dysphagia, No Hematochezia, No Melena, No Flatulence, No Jaundice Genitourinary: No Dysmenorrhea, No DUB, No Dyspareunia, No Dysuria, No Urinary Frequency, No Hematuria, No Urinary Incontinence, No Urgency, No Flank Pain, No Urinary Flow Changes, No Hesitancy Musculoskeletal: No Arthralgias, No Myalgias, No Joint Swelling, No Joint Stiffness, No Back Pain, No Neck Pain, No Injury History Skin: No Skin Lesions, No Pruritis, No Hair Changes, No Breast/Skin Changes, No Nipple Discharge Neuro: No Weakness, No Numbness, No Paresthesias, No Loss of Consciousness, No Syncope, No Dizziness, No Headache, No Coordination Changes, No Recent Falls Psych: No Anxiety/Panic, No Depression, No Insomnia, No Personality Changes, No Delusions, No Rumination, No SI/HI/AH/VH, No Social Issues, No Memory Changes, No Violence/Abuse Hx., No Eating Concerns Heme/Lymph: No Bruising, No Bleeding, No Transfusions History, No Lymphadenopathy Endocrine: No Polyuria, No Polydipsia, No Temperature Intolerance Physical Exam Physical Exam: VITALS: Reviewed. WEIGHT/BMI reviewed. GEN: Healthy appearing, well-developed, NAD. PSYCH: Good Judgment. AOx3. Normal memory, mood, and affect. HEENT Tracheal stoma appears healthy, no secretions of concerning nature, patient frequently coughs and try to expectorate with no significant production NECK: Supple, with no masses. CV: RRR, no m/r/g. LUNGS: Lung sounds clear bilaterally with diminished air entry overall but no particular concern, no wheeze. ABD: Soft, NT/ND, NBS, no masses or organomegaly. : N/A EXT: No clubbing, cyanosis, or edema. Results & Data Results & Data Vital Signs (Past 12 Hours) Vital Signs Temp Pulse Pulse Resp BP BP Pulse Ox 05/04/24 16:59 67 24 100 05/04/24 16:32 68 05/04/24 16:31 66 20 100 05/04/24 16:31 67 16 138/66 100 05/04/24 16:11 36.7 C 84 20 133/108 H 97 O2 Del Method O2 Flow Rate FiO2 05/04/24 16:59 Trach Collar 10 35 05/04/24 16:32 05/04/24 16:31 Room Air 05/04/24 16:31 Room Air 05/04/24 16:11 Room Air Laboratory Results Laboratory Results - last 24 hr 05/04/24 05/04/24 16:15 17:24 WBC 15.10 H RBC 3.87 L Hgb 10.7 L Hct 32.7 L MCV 84.5 MCH 27.6 MCHC 32.7 RDW Std Deviation 49.1 H RDW Coeff of Sharda 15.9 H Plt Count 515 H MPV 8.7 L Immature Gran % (Auto) 0.5 Neut % (Auto) 85.7 Lymph % (Auto) 4.4 [place] % (Auto) 4.8 Eos % (Auto) 4.3 Baso % (Auto) 0.3 Neut # (Auto) 12.92 H Lymph # (Auto) 0.67 L [place] # (Auto) 0.73 H Eos # (Auto) 0.65 H Baso # (Auto) 0.05 Immature Gran # (Auto) 0.08 Sodium 137 Potassium 4.0 Chloride 103 Carbon Dioxide 21 Anion Gap 13 H BUN 14 Creatinine 0.88 Est Cr Clr Drug Dosing 64.5 eGFR 84.79 BUN/Creatinine Ratio 15.9 Glucose 96 Calcium 10.2 Magnesium 1.9 Total Bilirubin 0.6 AST 17 ALT 11 Alkaline Phosphatase 82 Troponin I High Sens 10.6 Total Protein 7.5 Albumin 3.5 Globulin 4.0 Albumin/Globulin Ratio 0.9 Procalcitonin 0.09 TSH 3.692 Adenovirus (PCR) Pending B. pertussis DNA (PCR) Pending B.parapertussis DNA PCR Pending C. pneumoniae DNA (PCR) Pending Coronavirus OC43 (PCR) Pending Coronavirus HKU1 (PCR) Pending Coronavirus 229E (PCR) Pending SARS-CoV-2 (PCR) Pending Coronavirus NL63 (PCR) Pending Human Metapneumovir PCR Pending Influenza Type B (PCR) Pending M. pneumoniae (PCR) Pending Parainfluenza 1 (PCR) Pending Parainfluenza 2 (PCR) Pending Parainfluenza 3 (PCR) Pending Parainfluenza 4 (PCR) Pending RSV (PCR) Pending Entero/Rhino (PCR) Pending Diagnostic Findings Chest X-Ray 05/04/24 16:14 EXAM: X-ray chest one-view portable CLINICAL HISTORY: Chest pain PRIORS: 04/13/2024 TECHNIQUE: X-ray chest one-view portable FINDINGS: The chest is hyperexpanded. Costophrenic angles are omitted on the frontal view. Left-sided cardiac device noted with leads unchanged in position. No airspace consolidation, effusion or congestive changes. Heart size is normal. No pneumothorax. Trachea is patent. Osseous structures demonstrate no acute abnormality. No radiopaque foreign body. IMPRESSION: No plain film evidence of an acute cardiopulmonary process. Radiographic features favoring underlying COPD/pulmonary emphysema. ACT 112: Positive. There are findings on this examination that require communication between the performing entity and the patient following Patient Test Result Information Act ([place] ACT 112) guidelines. Electronically signed by Jane Thao 05-04-2024 5:11 PM Code Status & VTE Plan Code Status Full code (5) Depression Depression Type: major depressive disorder Major depression recurrence: unspecified whether recurrent Active/Remission status: in full remission Qualified Code(s): F32.5 - Major depressive disorder, single episode, in full remission
[2024-05-04 18:22] LABS: Adenovirus PCR Not Detected (NotDetected); Bordetella parapertussis PCR Not Detected (NotDetected); Bordetella pertussis PCR Not Detected (NotDetected); Chlamydia pneumoniae PCR Not Detected (NotDetected); Coronavirus 229E PCR Not Detected (NotDetected); Coronavirus CoV-2 (COVID19)PCR Not Detected (NotDetected); Coronavirus HKU1 PCR Not Detected (NotDetected); Coronavirus NL63 PCR Not Detected (NotDetected); Coronavirus OC43PCR Not Detected (NotDetected); Human Metapneumovirus PCR Not Detected (NotDetected); Influenza A PCR Not Detected (NotDetected); Influenza B PCR Not Detected (NotDetected); Mycoplasma pneumoniae PCR Not Detected (NotDetected); Parainfluenza Virus 1 PCR Not Detected (NotDetected); Parainfluenza Virus 2 PCR Not Detected (NotDetected); Parainfluenza Virus 3 PCR Not Detected (NotDetected); Parainfluenza Virus 4 PCR Not Detected (NotDetected); Respiratory Syncytial VirusPCR Not Detected (NotDetected); Rhinovirus/Enterovirus PCR Not Detected (NotDetected)
[2024-05-04 20:46] LABS: Appearance Urine Clear (Clear); Bacteria Urine Automated None Seen (None Seen); Bilirubin Urine Negative (Negative); Blood Urine Negative (Negative); Color Urine Yellow; Epithelial Cell Urine Auto 0-2 /hpf (0-2); Glucose Urine UA Negative (Negative); Hyaline Casts Urine Present /lpf (None Presnt); Ketones Urine 1+ (Negative); Leukocyte Esterase Urine 1+ (Negative); Nitrite Urine Negative (Negative); Protein Urine 1+ (Negative); RBC Urine Automated 0-2 /hpf (0-2); Specific Gravity Urine 1.019 (1.000-1.030); Urobilinogen Urine Negative (Negative); pH Urine 5.5 (4.5-7.5)
[2024-05-04] MEDS ORDERED: POLYETHYLENE (MIRALAX) 17 GM PACK PO PRN (23:13)
[2024-05-04] MEDS ORDERED: ACETAMINOPHEN 325 MG TAB PO PRN (23:13)
[2024-05-05] MEDS: PARoxetine HCL 20 MG TAB PO SCH (00:22)
[2024-05-05] MEDS: PANTOprazole 40 MG TAB PO SCH (00:22)
[2024-05-05] MEDS: APIXABAN 5 MG TABLET PO SCH (00:23)
[2024-05-05] MEDS: SODIUM CHLOR 7% 4 ML NEB NEB SCH (02:12)
[2024-05-05] MEDS: ALBUT/IPRATROP 3MG/0.5MG NEB 3 ML VIAL NEB SCH (02:12)
[2024-05-05] MEDS: ONDANSETRON INJ 2 MG/ML 2 ML VIAL IV PRN (04:16)
[2024-05-05 05:15] LABS: Hematocrit (blood only) 25.8 % (42.0-52.0); Hemoglobin 8.4 g/dl (14.0-18.0); Mean Corpuscular Hemoglobin 27.5 pg (25.0-34.0); Mean Corpuscular Hgb Conc 32.6 g/dL (32.0-36.0); Mean Corpuscular Volume 84.3 fL (80.0-100.0); Mean Platelet Volume 8.8 fL (9.4-12.4); Platelet Count 374 K/uL (130-400); RDW Coefficient of Variation 15.9 % (11.5-14.5); RDW Standard Deviation 49.1 fL (36.4-46.3); Red Blood Count 3.06 M/uL (4.70-6.10)
[2024-05-05 05:32] LABS: Calcium 9.1 mg/dl (8.6-10.3); Potassium 3.3 mmol/L (3.5-5.1)
[2024-05-05] MEDS: LEVOTHYROXINE SODIUM 125 MCG TABLET PO SCH (06:10)
--- NOTE | 2024-05-05 07:56 | Electrocardiogram Report ---
Test Reason : Blood Pressure : */* mmHG Vent. Rate : 64 BPM Atrial Rate : 64 BPM P-R Int : 176 ms QRS Dur : 94 ms QT Int : 424 ms P-R-T Axes : 6 80 33 degrees QTcB Int : 437 ms Atrial-paced rhythm Nonspecific ST and T wave abnormality Abnormal ECG When compared with ECG of 14-Apr-2024 12:02, No significant change was found Confirmed by Carlos Mullen ([id number]) on 05/05/2024 7:56:07 AM Referred By: Neto Rasheed Confirmed By: Carlos Mullen
--- NOTE | 2024-05-05 08:48 | Discharge Summary ---
Discharge Summary Date of Service May 05, 2024 Principal Dx & Hospital Course #1 = Principal Diagnosis (1) Respiratory distress: (2) History of atrial fibrillation: (3) History of coronary artery disease: (4) Hypothyroidism (acquired): (5) Depression: Notes For Next Care Provider Medication Changes From Visit No additional treatment. 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 Today they had an appointment with his primary care provider and by the time they arrived, patient was then urgently asked to be sent to the emergency room, stated that patient's oxygen was low into 70s. By the time patient arrived to the hospital, his status was stable, his oxygen saturation was checked by myself from the room and it was in the mid 90s on room air, chest x-ray was reviewed by myself also and the report was reviewed which showed no finding, agreed on keeping him in observation and considering that this may have been a mucous plug which resolved by itself. Overnight patient did well, seen and examined today, he is not in any distress, examination of the lungs did not reveal any additional sounds, case was discussed with nursing taking care of the patient, no report of any issue overnight. Will proceed with discharging him home with follow-up as outpatient. Discharge Exam VITALS: Reviewed. Tracheal stoma appears healthy, otherwise normal without any finding such as secretions LUNGS: Normal breath sounds, continues to have some diminished at bases but otherwise nothing new. ABD: Soft, NT/ND, NBS, no masses or organomegaly. : N/A EXT: No clubbing, cyanosis, or edema. Updated Medication List Medication Instructions Recorded Confirmed Type levothyroxine 125 mcg tablet 0 mcg PO DAILYBB 03/25/18 05/04/24 History nitroglycerin 0.4 mg sublingual 1 tab sublingual UD PRN Chest Pain 03/25/18 05/04/24 History tablet clopidogrel 75 mg tablet 0 mg PO QAM 06/03/18 05/04/24 History albuterol sulfate 2.5 mg/3 mL 2.5 mg inhalation QID PRN 08/19/19 05/04/24 History (0.083 %) solution for nebulization Shortness Of Breath Or Wheezing polyethylene glycol 3350 17 gram 17 g PO DAILY PRN Constipation 11/02/20 05/04/24 History oral powder packet (Miralax) apixaban 5 mg tablet (Eliquis) 0 mg PO AMHS 09/13/21 05/04/24 History folic acid 1 mg tablet 0 mg PO DAILY 03/31/24 05/04/24 History iron,carbonyl 65 mg-vitamin C 125 1 tab PO QAM 03/31/24 05/04/24 History mg tablet,delayed release (Vitron-C) triamcinolone acetonide 0.1 % 1 applic topical BID 03/31/24 05/04/24 History topical cream sodium chloride 7 % for 4 ml NEB BIDR PRN mucus plugging 04/02/24 05/04/24 Rx nebulization #240 mL pantoprazole 40 mg tablet,delayed 40 mg PO BID 28 days #56 tabs 04/15/24 05/04/24 Rx release (Protonix) Hospital Stay Data Consultations 05/04/24 17:14 ED Decision to Admit Stat 05/04/24 17:56 ED Decision to Admit Stat Pending Results Patient Have Any Pending Studies at Discharge: No Discharge Instructions Given to Patient (Per Discharging Provider) Patient to return home, continue to observe respiratory status and hydration status and on very minimal signs of respiratory distress to come to the emergency room. Total Time Total Time Spent Total Time Spent (In Minutes): Less than 35-minute
[2024-05-05] MEDS: CLOPIDOGREL BISULFATE 75 MG TAB PO SCH (08:59)
--- NOTE | 2024-05-05 10:16 | XRay Report ---
XR chest 1V portable CLINICAL HISTORY: Follow-up wheezing COMPARISON STUDY: 05/04/2024 FINDINGS: Stable CABG and pacemaker. Heart size and pulmonary vasculature are normal. No effusion, co nsolidation, or pneumothorax. IMPRESSION: No acute findings. ACT 112: Negative or not required by law. Electronically signed by: Stan Amaro M.D. 05/05/2024 10:14 AM
[2024-05-05 11:11] VITALS: O2SAT 100
[2024-05-05 11:13] VITALS: BP 143/64; PULSE 66; RESP 28
== END 2024-05-05 11:13 | disposition home or self-care (01) | DRG 206 ==
LOC: SUATTDRO → ED 15:56 → EDINP 19:25 → INTOOBSV 19:25 → EDINP 22:15

== ENCOUNTER 2024-07-24 20:19 | Observation (INO) ==
--- OUTSIDE RECORDS SUMMARY | 2024-07-24 20:24 | External Medical Summary | Summary of Care ---
Author Name Unknown Organization [facility] Address [address] [facility] [place] [place] [address] Phone [phone] Care Team Providers Care Manager Hospitality Name Role Phone Neto Rasheed MD Primary Care Provider + Reason for Referral * Evaluate & Treat - Unlimited Visits (Within 10 days (routine)) - Authorized Specialty Diagnoses / Procedures Referred By Ekaterina alcaraz Referred To Contact Physical Therapy / Physical Medicine And Rehab Diagnoses Laryngeal cancer (HCC) History of radiation to head and neck region Neto Rasheed MD [address] [place] [address] Phone: tel: fax: Referral ID Status Reason Start Date Expiration Date Visits Requested Visits Authorized [id number] Authorized Specialty Services Required 07/07/2024 999 [id number] Question Answer Referral Priority Within 10 days (routine) Where should this appointment be scheduled? [facility] Reason for Visit * Reason Onset Date Comments Home Health 07/07/2024 Encounter Details Date Type Department Care Team (Late st Contact Info) Description 07/07/2024 Telephone General Internal Medicine [facility] [address] [place] [id number] Neto Rasheed MD [address] [place] [id number] Home Health Allergies No known active allergiesdocumented as of this encounter (statuses as of 07/08/2024) Medications Misc. Devices MISC Cool mist humidification device [...] OralDAILY PRN, Constipation, Informant: Patient, Reported on 06/21/2024 [facility]. Devices MISC Size 10 shiley laryngectomy tube 2 Each 5 08/09/19 20 Active Fluorouracil 5 % External Cream (Efudex)Indicati ons:Actinic keratosis Apply to rough spots on the scalp nightly x 2-4 weeks. 40 g 05/18/19 Active Additional Information Patient not taking.Reported on 06/21/2024 [facility]. Devices one ultra voice 1 Each 06/15/19 Active Additional Information Patient not taking.Reported on 06/21/2024 Ipratropium-Albu terol 0.5-2.5 (3) MG/3ML Inhalation Solution [...] DAY 90 Tablet 3 04/03/20 23 Active Ipratropium-Albu terol 0.5-2.5 (3) MG/3ML Inhalation Solution (Duoneb)Indicati ons:COPD, moderate (HCC) Inhale 3 mL via nebulizer in the morning and 3 mL at noon and 3 mL in the evening and 3 mL before bedtime. 360 mL 3 08/04/19 24 Active Additional Information Patient not taking.Reported on 05/04/2024 Albuterol Sulfate (2.5 MG/3ML) 0.083% Inhalation Nebulization [...] mouth in the morning. 09/17/19 24 Active Additional Information Patient not taking.Reported on 06/21/2024 Apixaban 5 MG Oral Tablet (Eliquis) Take 1 Tablet by mouth in the morning and 1 Tablet before bedtime. 60 Tablet 5 11/19/19 24 Active Folic Acid 1 MG Oral Tablet Take 1 Tablet by mouth in the morning. Active Pantoprazole Sodium 40 MG Oral Tablet Delayed Release (Protonix) 1 Tablet. 04/15/20 24 Active Potassium Chloride ER 10 MEQ Oral Tablet Extended Release Take 1 Tablet by mouth in the morning and 1 Tablet before bedtime. 06/01/19 25 Active Nitroglycerin 0.4 MG Sublingual Tablet Sublingual (Nitrostat)Indic ations:Chronic coronary artery disease Place 1 Tablet under the tongue every 5 minutes as needed for Pain, Chest. Max dose 3 tablets in 15 minutes 25 Tablet 3 06/21/19 25 Active predniSONE 20 MG Oral Tablet (Deltasone) Take 1 Tablet by mouth in the morning. Taper per oncology . 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 05/29 Chronic heart failure with preserved ejection fr action 05/04/2024 Moderate depressive disorder 07/07/2023 Laryngeal cancer 07/01/2022 [...] of gout 02/05/2012 CAD (coronary artery disease), [place] coronary a rtery 01/22/2012 Other voice and [...] as of this encounter (statuses as of 07/08/2024) Resolved Problems Problem Noted Date Diagnosed Date [...] as of this encounter (statuses as of 07/08/2024) Immunizations Name Administration Dates Next Due COVID-19 mRNA, LNP-s, No Pre serve, 2-Dose Series (Revolve.) 03/29/2021,07/06/2020,06/15/2020 COVID-19, LNP-s, No Preserve , Evert-sucrose, [...] 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 (5 years old or older) Answer Date of Assessment Author No 12/06/2019 9:30 PM EDT Noemi Mascorro RN * Do you have difficulty dressing or bathing? (5 years old or older) Answer Date of Assessment Author No 12/06/2019 9:30 PM EDT Noemi Mascorro RN * Because of a physical, mental, or emotional condition, do you have difficulty doing errands alone such as visiting a doctors office or shopping? (15 years old or older) Answer Date of Assessment Author No 12/06/2019 9:30 PM GIOVANNIT Noemi Mascorro RN documented as of this encounter Mental Status * Because of a physical, mental, or emotional condition, do you have serious difficulty concentrating, remembering, or making decisions? (5 years old or older) Answer Entry Date Author No 12/06/2019 9:30 PM GIOVANNIT Noemi Mascorro RN documented in this encounter Miscellaneous Notes * Telephone Encounter - Aracely Ruiz LPN - 07/08/2024 3:53 PM EDT Leland calling from [facility]. He was made aware referral was faxed to [place]. * Telephone Encounter - Jair Stark OSA - 07/07/2024 9:36 AM EDT Fax sent successfully * Telephone Encounter - Cammy Bruno LPN - 07/07/2024 8:29 AM EDT Leland from [facility] is calling. States that the pt was D/C from [facility] on 06/17/24 with intent to go to out patient. Pt is not having luck getting in anywhere. Is asking if an OP HH referral could be sent to [facility] in [place] Referral pended for review. Please advise. * Telephone Encounter - Sandra Holley OSA - 07/07/2024 8:26 AM EDT Reason for patient's call: Home health asking to speak to nurse. Caller was transferred to [facility] at the nurse line. documented in this encounter Plan of Treatment Upcoming Encounters Date Type Department Care Team (Late st Contact Info) Description 11/30/2024 11:00 AM EDT Cardiac Studies Cardiac Studies, [facility] [address] [facility] [place] [id number] 03/16/2025 3:00 PM EST Office Visit General Internal Medicine [facility] [address] [facility] [place] [address] Neto Rasheed MD [address] [facility] [place] [address] Scheduled Referrals Name Type Priority Associated Diagnoses Orde r Schedule PHYSICAL THERAPY REFERRAL OP Referral Within 10 days (routine) Laryngeal cancer (HCC) History of radiation to head and neck region Ordered: 07/07/2024 Health Maintenance Due Date Last Done Comments Alpha-1 Antitrypsin 1958 Zoster Vaccines (1 of 2) 1959 Adult Wellness Visit 11/07/2014 11/07/2013 COVID-19 Vaccine ( season) 2023 08/29/2021, 03/29/2021, 07/06/2020, Additional history exists Depression Monitoring 01/09/2024 01/08/2023 DTap/Tdap Vaccines (6 - Td or Tdap) 12/25/2024 12/25/2014, 09/26/2003, 09/26/2003, Additional history exists O2 ASSESSMENT COMPLETED IN PAST YEAR FOR COPD 02/21/2025 02/22/2024 TSH 06/21/2025 06/21/2024, 12/27, 11/27/2023, Additional history exists Albumin/Creatinine Ratio 07/22/2026 024, 08/22/2021, 12/26/2008 Pneumococcal Vaccine: 50+ Years Completed 04/25/2016, 10/31/2009 Influenza Vaccine (FLU [...] on patient's age to complete this topic Meningitis B Vaccine (Bexsero/Trumemba) Aged Out No longer eligible based on patient's age to complete this topic documented as of this encounter Medical Devices Implanted Type Area Auto Body Repairer Device Identifier Shelf Expiration Date Model / Serial / Lot Woundmatrix [id number] [id number] (150 Units) - [id number] - [id number] Implanted:Qty: 150 on 04/18/2019 by Hayden Fleming MD at OR [facility] Left: Leg Upper [employer] [id number] 01/25/2020 [id number] / [id number] / [id number] Indwelling Voice Prosthesis Implanted:Qty: 1 on 10/26/2019 by Hayden Fleming MD at OR [facility] N/A: Throat 08/16/2021 1616-NS / / [id number] Description:INHEALTH TECHNOL OGNAYELI REF : [place] 1616-NS (KANA) CLASSIC INDWELLING VOICE PROSTHESIS WITH INSERTION / CLEANING ACCESSORIES documented as of this encounter Visit Diagnoses Diagnosis History of radiation to head and neck region- Primary Laryngeal cancer (HCC) Malignant neoplasm of larynx, unspecified site documented in this encounter Advance Directives Documents on File Type Date Recorded Patient Lead Warehouse Associate Expl anation Power of Executive Vice President Of Sales 09/27/2018 POWER OF A TTORNEY * [...] and were consensually agreed upon. Care Teams Manager Hospitality Relationship Specialty Start Date End Date Neto Rasheed MD [address] [facility] [place] [address] PCP - General Internal Medicine 02/14/21 documented as of this encounter
--- OUTSIDE RECORDS SUMMARY | 2024-07-24 20:24 | External Medical Summary | Summary of Care ---
Author Name Unknown Organization [facility] Address [address] [place] [place] [place] [address] Phone [phone] Care Team Providers Care Behavioral Science Chair Name Role Phone Neto Rasheed MD Primary Care Provider + Reason for Visit * Reason Onset Date Comments Home Health 04/18/2024 Encounter Details Date Type Department Care Team (Late st Contact Info) Description 04/18/2024 Telephone General Internal Medicine [facility] [address] [place] [address] Neto Rasheed MD [address] [place] [address] Home Health Allergies No known active allergiesdocumented as of this encounter (statuses as of 07/19/2024) Medications Misc. Devices MISC Cool mist humidification [...] PRN, Constipation, Informant: Patient, Reported on 06/21/2024 [facility]. Devices MISC Size 10 shiley laryngectomy tube 2 Each 5 08/09/19 20 Active Fluorouracil 5 % External Cream (Efudex)Indicati ons:Actinic keratosis Apply to rough spots on the scalp nightly x 2-4 weeks. 40 g 05/18/19 21 Active Additional Information Patient not taking.Reported on 06/21/2024 [facility]. Devices one ultra voice 1 Each 06/15/19 21 Active Additional Information Patient not taking.Reported on [...] OR OTHER MEDICATION 90 Tablet 1 08/24/19 Active Clopidogrel Bisulfate 75 MG Oral Tablet (pLAVix) TAKE 1 TABLET BY MOUTH EVERY DAY 90 Tablet 1 09/14/19 Active Vitron-C 65-125 MG Oral Tablet (Iron-Vitamin C 65-125 mg per tab)Indications: Iron deficiency anemia, unspecified iron deficiency anemia type Take 1 Tablet by mouth in the morning. 09/17/19 Active Additional Information Patient not taking.Reported on 06/21/2024 Apixaban 5 MG Oral Tablet (Eliquis) Take 1 Tablet by mouth in the morning and 1 Tablet before bedtime. 60 Tablet 5 11/19/19 Active Folic Acid 1 MG Oral Tablet Take 1 Tablet by mouth in the morning. Active Pantoprazole Sodium 40 MG Oral Tablet Delayed Release (Protonix) 1 Tablet. 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 is to set up out patient physical therapy with [place] FYI to PCP documented in this encounter Plan of Treatment Upcoming Encounters Date Type Department Care Team (Late st Contact Info) Description 11/30/2024 11:00 AM EDT Cardiac Studies Cardiac Studies, [facility] [address] [place] [phone] 03/16/2025 3:00 PM EST Office Visit General Internal Medicine [facility] [address] [facility] [place] [address] Neto [facility] MD [address] [facility] [address] Health Maintenance Due Date Last Done Comments [...] this encounter Medical Devices Implanted Type Area Keyboard Teacher Device Identifier Shelf Expiration Date Model / Serial / Lot Woundmatrix Fenstr [id number] (150 Units) - [id number] - [id number] Implanted:Qty: 150 on 04/18/2019 by Hayden Fleming MD at OR [facility] Left: Leg Upper [employer] [id number] 01/25/2020 [id number] / [id number] / [id number] Indwelling Voice Prosthesis Implanted:Qty: 1 on 10/26/2019 by Hayden Fleming MD at OR [facility] N/A: Throat 08/16/2021 1616-NS / / [id number] Description:INHEALTH TECHNOL OGNAYELI REF : [place] 1616-NS (HECTOR[place]ALONZO) CLASSIC INDWELLING VOICE PROSTHESIS WITH INSERTION / CLEANING ACCESSORIES documented as of this encounter Advance Directives Documents on File Type Date Recorded Patient Electronic Plotting System Operator Expl anation Power of Paid Search Manager 09/27/2018 POWER OF A TTORNEY * [...] and were consensually agreed upon. Care Teams Behavioral Science Chair Relationship Specialty Start Date End Date Neto Rasheed MD [address] [place] [address] PCP - General Internal Medicine 02/14/21 documented as of this encounter
[2024-07-24 20:27] VITALS: TEMP 97.7
--- NOTE | 2024-07-24 20:32 | Emergency Department Note ---
Impression & Plan Deep vein thrombosis (DVT) of right lower extremity, Right leg swelling, History of atrial fibrillation ED Provider Note NAME: ALEXANDRA PETERS AGE: 84 SEX: M : 1940 ARRIVES VIA: Walk-In INFORMANT: Patient, ED PROVIDER(S): Louis Laguerre MD CHIEF COMPLAINT: Right leg swelling MEDICAL DECISION MAKING: Patient presents due to concern for significant right lower extremity edema. IV was established and blood work was obtained. DVT ultrasound also obtained. Patient with a normal white count hemoglobin of 9.1 which is chronic and stable. Platelet count is unremarkable. Kidney function unremarkable hyponatremia noted at 134. Patient's DVT ultrasound does show extensive DVT in the right lower extremity. The patient's chest x-ray does not show any acute findings. Coags ordered along with heparin drip. Given the patient's extensive DVT while on Eliquis concerning for failed blood thinner do believe patient would benefit from admission and further discussion about the possibility of an alternative agent versus IVC filter. I did speak with the on-call hospitalist service after informing the patient and patient's of the findings. Patient was admitted to the medicine service by Dr. Ramirez. Critical Care: I have personally spent 37 minutes of critical care time in direct management of this patient. This includes bedside care, interpretation of diagnostic studies, and testing, discussion with consultants, patient, and family members, and other require inpatient management activities. This 37 minutes is in excess of all separately billable procedures. Discussion w/ other healthcare providers: Dr. Ramirez inpatient medicine service Prior /Outside records reviewed: I reviewed part of a discharge summary from Dr. Alcala. Patient was admitted for respiratory distress A-fib CAD hypothyroidism. 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 Patient also with a history of CABG and pacemaker. I did review part of a procedure note from June 24. The patient did have a left femoral vein [id number] insertion. This is because the patient has a pacemaker in the left clavicular area mass over his right clavicular area and nodes in his right groin. Patient also prior history of laryngeal carcinoma and tracheostomy. Differential diagnosis: DVT, limb ischemia, musculoskeletal pain, infection, joint effusion, trauma, lymphedema, idiopathic, CHF, as well as other pathologies. Diagnostics, as interpreted by me: ECG: Possible junctional versus short MD. Ventricular rate of 65 with normal intervals, right axis deviation. Cardiac monitoring: An order was placed for continuous cardiac monitoring. The monitor shows a rate of 67 with paced rhythm. Patient was placed on pulse oximetry Medical decision rules: None Imaging studies: I informally interpreted the patient's venous ultrasound did not show DVT with formal report to follow. HPI: Patient presents due to concern for right lower extremity swelling. The patient reports that he did have a recent port that was placed in his left lower extremity. The patient had this placed there because there were issues with other areas of placement. Initially had recommended the right leg but Dr. Bartlett who placed his port a month ago decided not to do this. The patient states that he developed swelling about 4 days ago. The patient denies any chest pains or shortness of breath. The patient is anticoagulated on Eliquis. Patient denies any trauma. He has no pain with ambulation. Patient has follow- up with Dr. Monroy with hematology oncology. Patient denies any chest pain or shortness of breath. PAST MEDICAL HISTORY: See Below PAST SURGICAL HISTORY: See Below SOCIAL HISTORY: See Below HOME MEDICATIONS: See Below ALLERGIES: See Below VITALS: See Below PHYSICAL EXAMINATION: GENERAL: NAD, non-toxic. EYE EXAM: Normal conjunctiva. PERRL, no anisocoria and EOM's grossly intact w/o pain. OROPHARYNX: Moist mucus membranes, grossly normal dentition. NECK: Trachea midline, no stridor. Tracheostomy stoma in place. Supple, no nuchal rigidity, no adenopathy, non-tender. No signs of meningismus. FROM of the neck with good chin to chest and neck extension. LUNGS: Clear to auscultation. Normal chest wall mechanics. HEART: NSR, no MRG. ABDOMEN: Abdomen soft, non-tender, no masses, no rebound or guarding. BACK: No CVA TTP. SKIN: No rashes and no bruising. UPPER EXTREMITIES: Upper extremities are grossly normal. LOWER EXTREMITIES: Grossly normal, significant right lower extremity swelling no evidence of any swelling to the left lower extremity. Good pedal pulse in the right foot. No pain to palpation in the calf. NEURO EXAM: A&O x3, cranial nerves II-XII grossly intact, normal speech, moves all 4 extremities. Past Med/Surg History Problem List (Updated 07/25/24 @ 00:03 by Louis Laguerre MD) History of atrial fibrillation (Acute) Right leg swelling (Acute) Deep vein thrombosis (DVT) of right lower extremity (Acute) S/P vascular surgery Pressure ulcer, buttock Mucus plugging of bronchi (Acute) Mucus plug in respiratory tract (Acute) Leukocytosis (Acute) Depression Hypothyroidism (acquired) History of coronary artery disease History of atrial fibrillation Respiratory distress PVD (peripheral vascular disease) Abnormal computed tomography of abdomen and pelvis GI bleed Syncope Melena (Acute) Hematemesis (Acute) Elevated troponin (Acute) Elevated troponin 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) Anemia (Acute) Tracheostomy in place (Acute) Leukocytosis (Acute) Laryngeal cancer (Acute) Cellulitis (Acute) 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 (Acute) Severe sepsis Bacteremia due to Enterococcus (Acute) Sepsis Aspiration pneumonia (Acute) Aspiration pneumonia (Acute) Acute dyspnea (Acute) History of laryngectomy Aspiration pneumonia Multifocal pneumonia (Acute) Tracheostomy in place (Acute) Tracheobronchitis Hypoxia (Acute) SSS (sick sinus syndrome) (Chronic) History of CVA (cerebrovascular accident) (Chronic) February 2018, no deficits Tracheostomy in place (Acute) COPD (chronic obstructive pulmonary disease) Acute hypoxemic respiratory failure Peripheral eosinophilia Elevated troponin (Acute) Stenosis of left internal carotid artery History of cataract surgery (Chronic) H/O repair of right rotator cuff (Chronic) Anxiety (Chronic) 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 Symptoms were resolving by the time the patient arrived in the ED. 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 on CPAP no longer on CPAP post tracheostomy Surgical History Hx of laryngectomy (~1999) History of bronchoscopy History of tonsillectomy History of carotid endarterectomy RIGHT (MARCH 2018) History of cataract extraction with lens replacement cataract extraction with IOL implant and LRI left eye - 05/02/12 History of colonoscopy with polypectomy History of rotator cuff surgery Right - 2009 History of coronary artery bypass graft X2 VESSEL 1995 -- [facility] Family History Mother Essential hypertension Stroke Sister Cancer Breast cancer Daughter Cancer Colon cancer Social History Smoking Status: Former smoker Tobacco Type: Cigarettes Age Quit Using Tobacco: 55; packs per day: 2; Second Hand Exposure: No; Do You Dip or Chew Tobacco: No; Hx Alcohol Use: No Hx Substance Use: No Preferred Language: [place] Communication Ability: Effective Communication Ability Comment: write answers to questions, unable to talk Visual Impairment: No Limitations Hearing Ability: Normal Snuff Container Inspector Required: No Beliefs That Will Affect Care: None marital status: Current Living Situation: Spouse Current Living Situation Comment: home with spouse current occupational status: retired How many Children do You have: 2 How many Children do You have Comment: Son can help other: Home health nursing twice per week Feels Safe at Home: Yes Diet: regular during the past year weight has: decreased > 10 lbs Physical Activity Frequency: Does not Exercise Assistive Devices: Cane, Nebulizer, Walker and Wheelchair Allergies Allergies Allergy/AdvReac Type Severity Reaction Status Date / Time rosuvastatin [From Crestor] Allergy Unknown HAPPENED A Verified 07/24/24 21:30 LONG TIME AGO. Home Meds Home Medications Medication Instructions Recorded Confirmed levothyroxine 125 mcg tablet 125 mcg PO DAILYBB 03/25/18 07/24/24 nitroglycerin 0.4 mg sublingual 1 tab sublingual UD PRN Chest Pain 03/25/18 07/24/24 tablet clopidogrel 75 mg tablet 75 mg PO QAM 06/03/18 07/24/24 albuterol sulfate 2.5 mg/3 mL 2.5 mg inhalation QID PRN 08/19/19 07/24/24 (0.083 %) solution for nebulization Shortness Of Breath Or Wheezing polyethylene glycol 3350 17 gram 17 g PO DAILY PRN Constipation 11/02/20 07/24/24 oral powder packet (Miralax) apixaban 5 mg tablet (Eliquis) 5 mg PO AMHS 09/13/21 07/24/24 folic acid 1 mg tablet 0 mg PO DAILY 03/31/24 07/24/24 iron,carbonyl 65 mg-vitamin C 125 1 tab PO QAM 03/31/24 07/24/24 mg tablet,delayed release (Vitron-C) triamcinolone acetonide 0.1 % 1 applic topical BID 03/31/24 07/24/24 topical cream dexamethasone 4 mg tablet 4 mg PO DIRECTED 07/24/24 07/24/24 olanzapine 2.5 mg tablet 2.5 mg PO DAILY 07/24/24 07/24/24 Previous Rx's Medication Instructions Recorded sodium chloride 7 % for 4 ml NEB BIDR PRN mucus plugging 04/02/24 nebulization #240 mL oxycodone-acetaminophen 5 mg-325 1 tab PO Q8H PRN pain #10 tabs 06/24/24 mg tablet (Percocet) Results & Data (ED) Vital Signs Vital Signs - 24 hr 07/24/24 20:23 07/24/24 21:03 07/24/24 21:24 Temperature 36.5 C Temperature Source Temporal Artery Scan Pulse Rate 93 H 68 68 Pulse Rhythm Regular Respiratory Rate 15 18 Respiratory Effort / Characteristics Non-Labored Spontaneous Respiratory Depth Normal Respiratory Pattern Regular Blood Pressure 127/67 Blood Pressure Mean 87 Blood Pressure Position Lying Pulse Oximetry 98 97 Oxygen Delivery Method Room Air Room Air Oxygen Flow Rate 0 Sepsis Recent Fever Within 48 Hours No Sepsis New/Unexplained Change in Mental Status No Sepsis Action Taken by Nursing No Action Required Home Medications Current Medication List: was personally reviewed by me Laboratory Data Attestation: I reviewed the patient's lab results. 07/24/24 21:14 07/24/24 21:14 Lab Results 03/30/25 Range/Units 21:14 WBC 8.85 (4.8-10.8) K/ul RBC 3.24 L (4.70-6.10) M/uL Hgb 9.1 L (14.0-18.0) g/dl Hct 28.7 L (42.0-52.0) % MCV 88.6 (80.0-100.0) fL MCH 28.1 (25.0-34.0) pg MCHC 31.7 L (32.0-36.0) g/dL RDW Std Deviation 55.2 H (36.4-46.3) fL RDW Coeff of Sharda 17.1 H (11.5-14.5) % Plt Count 361 (130-400) K/uL MPV 8.3 L (9.4-12.4) fL Immature Gran % (Auto) 0.5 % Neut % (Auto) 83.0 % Lymph % (Auto) 7.1 % [place] % (Auto) 6.1 % Eos % (Auto) 2.8 % Baso % (Auto) 0.5 % Neut # (Auto) 7.35 H (1.40-6.50) K/uL Lymph # (Auto) 0.63 L (1.20-3.40) K/uL [place] # (Auto) 0.54 (0.11-0.59) K/uL Eos # (Auto) 0.25 (0.00-0.50) K/uL Baso # (Auto) 0.04 (0.00-0.20) K/uL Immature Gran # (Auto) 0.04 (0.01-0.20) K/uL Sodium 134 L (136-145) mmol/L Potassium 3.8 (3.5-5.1) mmol/L Chloride 99 (98-107) mmol/L Carbon Dioxide 28 (21-32) mmol/L Anion Gap 7 (3-11) BUN 19 (6-23) mg/dl Creatinine 0.82 (0.6-1.4) mg/dl Est Cr Clr Drug Dosing 53.8 ml/min eGFR 86.08 BUN/Creatinine Ratio 23.2 H (10-20) Glucose 102 H (70-99(Fasting)) mg/dl Calcium 8.8 (8.6-10.3) mg/dl Total Bilirubin 0.4 (0.2-1.0) mg/dl AST 16 (13-39) U/L ALT 11 (7-52) U/L Alkaline Phosphatase 91 (34-104) U/L Total Protein 7.5 (6.0-8.3) gm/dl Albumin 3.3 L (3.4-5.0) gm/dl Globulin 4.2 H (2.5-4.0) gm/dl Albumin/Globulin Ratio 0.8 L (0.9-2) Imaging Data Radiologist's Impression: Venous Doppler Study 07/24/24 20:44 CR Exam(s): US VENOUS RIGHT LOWER EXTREMITY EXAM: US Duplex Right Lower Extremity Veins CLINICAL HISTORY: Reason for exam: RLE swelling. TECHNIQUE: Real-time duplex ultrasound scan of the right lower extremity veins integrating B-mode two-dimensional vascular structure, Doppler spectral analysis, color flow Doppler imaging and compression. COMPARISON: No relevant prior studies available. FINDINGS: Deep veins: There is nonocclusive thrombus noted in the right common femoral, femoral, popliteal and peroneal veins. Soft tissues: There is a 5.6 x 5.1 by the 4.8 cm hypoechoic lesion noted in the right inguinal region.. IMPRESSION: There is extensive deep venous thrombosis in the right lower extremity.. Communications: Call Doctor DVT acute, progressing Electronically signed by: Raphael Thomas MD 07/24/24 22:51 PM Chest X-Ray 07/24/24 20:45 Exam(s): XR CXR 1 VIEW EXAM: XR Chest, 1 View CLINICAL HISTORY: Reason for exam: weakness. TECHNIQUE: Frontal views of the chest. COMPARISON: 05/05/2024. FINDINGS: Lungs: No consolidation. There are findings suggestive of chronic obstructive pulmonary disease Pleural space: No pleural effusion is seen. No pneumothorax. Heart: A pacemaker is again noted. The heart is normal in size.. Mediastinum: There is mild uncoiling of thoracic aorta.. Bones/joints: There are degenerative changes in the spine.. IMPRESSION: No acute pulmonary disease. Possible COPD. Findings appears similar to previous exam Electronically signed by: Raphael Thomas MD 07/24/24 23:11 PM Discharge Plan Visit Data Chief Complaint: Swelling/Edema to Extremity Stated Complaint: R LEG SWELLING ED Provider: Louis Laguerre Discharge Problem: Deep vein thrombosis (DVT) of right lower extremity, Right leg swelling, History of atrial fibrillation Forms Stand Alone Forms: [facility] [employer] Prescriptions Prescriptions: No Action levothyroxine 125 mcg tablet 125 mcg PO DAILYBB Rx Instructions: Last filled 12/2023. PER PT'S "DOESN'T TAKE REGULARLY". nitroglycerin 0.4 mg tablet, sublingual 1 tab Sublingual UD PRN (Reason: Chest Pain) Patient Comments: Never had to use Rx Instructions: PER PT'S "DOESN'T TAKE". albuterol sulfate 2.5 mg /3 mL (0.083 %) Solution For Nebulization 2.5 mg INHALATION QID PRN (Reason: Shortness Of Breath Or Wheezing) Rx Instructions: PER PT'S "DOESN'T TAKE". clopidogrel 75 mg tablet 75 mg PO QAM Rx Instructions: PER PT'S "DOESN'T TAKE". Eliquis 5 mg tablet 5 mg PO AMHS Rx Instructions: PER PT'S "DOESN'T TAKE". polyethylene glycol 3350 [Miralax] 17 gram powder in packet 17 g PO DAILY PRN (Reason: Constipation) Rx Instructions: PER PT'S "DOESN'T TAKE". oxycodone-acetaminophen [Percocet] 5-325 mg tablet 1 tab PO Q8H PRN (Reason: pain) Qty: 10 0RF Rx Instructions: PER PT'S "DOESN'T TAKE". triamcinolone acetonide 0.1 % cream 1 applic TOPICAL BID Rx Instructions: PER PT'S "DOESN'T TAKE". folic acid 1 mg Tablet 0 mg PO DAILY Rx Instructions: PER PT'S "DOESN'T TAKE". Vitron-C 65 mg iron- 125 mg Tablet,Delayed Release (Dr/Ec) 1 tab PO QAM Rx Instructions: PER PT'S "DOESN'T TAKE". sodium chloride 7 % Solution For Nebulization 4 ml NEB BIDR PRN (Reason: mucus plugging) Qty: 240 0RF Rx Instructions: PER PT'S "DOESN'T TAKE". olanzapine 2.5 mg tablet 2.5 mg PO DAILY Rx Instructions: ORDERED 07/22/24 FOR 16 DAYS. PER PT'S "DOESN'T TAKE". dexamethasone 4 mg tablet 4 mg PO DIRECTED Rx Instructions: ORDERED 07/22/24 PER PT'S "DOESN'T TAKE". Referrals Referrals: Neto Rasheed MD [Primary Care Provider] - Discharge Problem: Deep vein thrombosis (DVT) of right lower extremity Qualifiers: Affected thrombotic vein of extremity: femoral Chronicity: acute Qualified Code(s): I82.411 - Acute embolism and thrombosis of right femoral vein
[2024-07-24 21:43] LABS: Basophils # (auto) 0.04 K/uL (0.00-0.20); Basophils % (auto) 0.5 %; Eosinophils # (auto) 0.25 K/uL (0.00-0.50); Eosinophils % (auto) 2.8 %; Hematocrit (blood only) 28.7 % (42.0-52.0); Hemoglobin 9.1 g/dl (14.0-18.0); Immature Granulocytes # (auto) 0.04 K/uL (0.01-0.20); Immature Granulocytes % (auto) 0.5 %; Lymphocytes # (auto) 0.63 K/uL (1.20-3.40); Lymphocytes % (auto) 7.1 %; Mean Corpuscular Hemoglobin 28.1 pg (25.0-34.0); Mean Corpuscular Hgb Conc 31.7 g/dL (32.0-36.0); Mean Corpuscular Volume 88.6 fL (80.0-100.0); Mean Platelet Volume 8.3 fL (9.4-12.4); Monocytes # (auto) 0.54 K/uL (0.11-0.59); Monocytes % (auto) 6.1 %; Neutrophils # (auto) 7.35 K/uL (1.40-6.50); Platelet Count 361 K/uL (130-400); RDW Coefficient of Variation 17.1 % (11.5-14.5); RDW Standard Deviation 55.2 fL (36.4-46.3); Red Blood Count 3.24 M/uL (4.70-6.10); White Blood Count 8.85 K/ul (4.8-10.8)
[2024-07-24 21:46] LABS: Albumin Globulin Ratio 0.8 (0.9-2); Albumin Level 3.3 gm/dl (3.4-5.0); BUN Creatinine Ratio 23.2 (10-20); Bilirubin,Total 0.4 mg/dl (0.2-1.0); Calcium 8.8 mg/dl (8.6-10.3); Creatinine Clr Calc Pharmacy 53.8 ml/min; Globulin 4.2 gm/dl (2.5-4.0); Potassium 3.8 mmol/L (3.5-5.1); Total Protein 7.5 gm/dl (6.0-8.3)
--- NOTE | 2024-07-24 22:52 | Ultrasound Report ---
Exam(s): US VENOUS RIGHT LOWER EXTREMITY EXAM: US Duplex Right Lower Extremity Veins CLINICAL HISTORY: Reason for exam: RLE swelling. TECHNIQUE: Real-time duplex ultrasound scan of the right lower extremity veins integrating B-mode two-dimensional vascular structure, Doppler spectral analysis, color flow Doppler imaging and compression. COMPARISON: No relevant prior studies available. FINDINGS: Deep veins: There is nonocclusive thrombus noted in the right common femoral, femoral, popliteal and peroneal veins. Soft tissues: There is a 5.6 x 5.1 by the 4.8 cm hypoechoic lesion noted in the right inguinal region.. IMPRESSION: There is extensive deep venous thrombosis in the right lower extremity.. Communications: Call Doctor DVT acute, progressing Electronically signed by: Raphael Thomas MD 07/24/24 22:51 PM
--- NOTE | 2024-07-24 23:12 | XRay Report ---
Exam(s): XR CXR 1 VIEW EXAM: XR Chest, 1 View CLINICAL HISTORY: Reason for exam: weakness. TECHNIQUE: Frontal views of the chest. COMPARISON: 05/05/2024. FINDINGS: Lungs: No consolidation. There are findings suggestive of chronic obstructive pulmonary disease Pleural space: No pleural effusion is seen. No pneumothorax. Heart: A pacemaker is again noted. The heart is normal in size.. Mediastinum: There is mild uncoiling of thoracic aorta.. Bones/joints: There are degenerative changes in the spine.. IMPRESSION: No acute pulmonary disease. Possible COPD. Findings appears similar to previous exam Electronically signed by: Raphael Thomas MD 07/24/24 23:11 PM
[2024-07-25 00:15] LABS: INR 1.1 (0.9-1.1); Partial Thromboplastin Ratio 1.2; Partial Thromboplastin Time 31 Seconds (21-31); Prothrombin Time 11.4 Seconds (9.0-12.0)
[2024-07-25] MEDS: HEPARIN 25000 UNIT/500 ML D5W 25,000 UNITS/500 ML BAG IV SCH (00:15)
[2024-07-25] MEDS: Heparin IV Adult Wt-Based Standard *NO* INITIAL Bolus Protocol IV STA (00:17)
[2024-07-25] MEDS ORDERED: ACETAMINOPHEN 325 MG TAB PO PRN (00:26)
[2024-07-25] MEDS ORDERED: ALBUTEROL 0.083% NEBU SOLN 3 ML VIAL INH PRN (00:26)
[2024-07-25] MEDS ORDERED: SODIUM CHLOR 7% 4 ML NEB NEB PRN (00:26)
[2024-07-25] MEDS ORDERED: POLYETHYLENE (MIRALAX) 17 GM PACK PO PRN (00:26)
--- NOTE | 2024-07-25 00:29 | History & Physical Report ---
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 Patient speaking but no voice. He says has swelling in right lower extremity for last 4 days. Denies any pain. Denies any fever. No chest pain. No shortness of breath. No cough. No headache. No dizziness. Vision is okay. No runny nose or sore throat. Appetite is good. No difficulty swallowing as per patient. No nausea. No abdominal pain. Normal bowel and bladder movements. Patient says he has procedure on the left thigh about 10 days ago and since then he stopped Eliquis. He states stopped Eliquis 2 days prior to surgery. And has not started back as per patient. As per records he seemed to had a- port on left thigh on 06/24/2024. 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 Received radiation treatment. Status post total laryngectomy right neck dissection, right septal thyroidectomy, Currently On Keytruda? Monitor for mucous plugging and tracheal stoma Oncology follow-up Sick sinus syndrome Status post pacemaker CAD Status post CABG 1995 On Plavix and Eliquis Paroxysmal atrial fibrillation On Eliquis Currently on IV heparin Peripheral vascular disease Bilateral carotid endarterectomy On Plavix Moderate aortic stenosis Heart failure with preserved ejection fraction Monitor volume overload Anemia Hemoglobin 9.1 Seems around baseline Will follow DVT prophylaxis On IV heparin Disposition Medical floor Full code. 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 Patient speaking but no voice. He says has swelling in right lower extremity for last 4 days. Denies any pain. Denies any fever. No chest pain. No shortness of breath. No cough. No headache. No dizziness. Vision is okay. No runny nose or sore throat. Appetite is good. No difficulty swallowing as per patient. No nausea. No abdominal pain. Normal bowel and bladder movements. Patient says he has procedure on the left thigh about 10 days ago and since then he stopped Eliquis. He states stopped Eliquis 2 days prior to surgery. And has not started back as per patient. As per records he seemed to had a- port on left thigh on 06/24/2024. Past medical history. As mentioned above Past surgical history. Colonoscopy with biopsy. CABG. EGD with biopsy. Esophagoscopy. Cataract extraction. Laryngoscopy with biopsy. Laryngectomy subtotal supraglottic with dissection. Laryngectomy. Laryngoplasty. Cervical lymphadenectomy modified radical neck dissection. Removal of excess skin and subcutaneous tissue. Right rotator cuff repair. Tracheostoma revision. Revision of tracheostomy scar. Construct Tramquel esophageal fistula. C ricopharyngeal myotomy. Tracheal puncture. Social history. . Quit smoking 1984. Smoked 2 pack a day for 30 years. Alcohol occasional. No drug use. Family history. Mother had glaucoma. Eye problems. Hypertension. Father had heart attack. Lung cancer. Sister had breast cancer. Allergies Allergy/AdvReac Type Severity Reaction Status Date / Time rosuvastatin [From Crestor] Allergy Unknown HAPPENED A Verified 07/24/24 21:30 LONG TIME AGO. Home Medications Medication Instructions Recorded Confirmed Type levothyroxine 125 mcg tablet 125 mcg PO DAILYBB 03/25/18 07/24/24 History nitroglycerin 0.4 mg sublingual 1 tab sublingual UD PRN Chest Pain 03/25/18 07/24/24 History tablet clopidogrel 75 mg tablet 75 mg PO QAM 06/03/18 07/24/24 History albuterol sulfate 2.5 mg/3 mL 2.5 mg inhalation QID PRN 08/19/19 07/24/24 Hi story (0.083 %) solution for nebulization Shortness Of Breath Or Wheezing polyethylene glycol 3350 17 gram 17 g PO DAILY PRN Constipation 11/02/20 07/24/24 History oral powder packet (Miralax) apixaban 5 mg tablet (Eliquis) 5 mg PO AMHS 09/13/21 07/24/24 History folic acid 1 mg tablet 0 mg PO DAILY 03/31/24 07/24/24 History iron,carbonyl 65 mg-vitamin C 125 1 tab PO QAM 03/31/24 07/24/24 History mg tablet,delayed release (Vitron-C) triamcinolone acetonide 0.1 % 1 applic topical BID 03/31/24 07/24/24 History topical cream sodium chloride 7 % for 4 ml NEB BIDR PRN mucus plugging 04/02/24 07/24/24 Rx nebulization #240 mL oxycodone-acetaminophen 5 mg-325 1 tab PO Q8H PRN pain #10 tabs 06/24/24 07/24/24 Rx mg tablet (Percocet) dexamethasone 4 mg tablet 4 mg PO DIRECTED 07/24/24 07/24/24 History olanzapine 2.5 mg tablet 2.5 mg PO DAILY 07/24/24 07/24/24 History Past Med/Surg History Problem List (Updated 07/25/24 @ 00:03 by Louis Laguerre MD) History of atrial fibrillation (Acute) Right leg swelling (Acute) Deep vein thrombosis (DVT) of right lower extremity (Acute) S/P vascular surgery Pressure ulcer, buttock Mucus plugging of bronchi (Acute) Mucus plug in respiratory tract (Acute) Leukocytosis (Acute) Depression Hypothyroidism (acquired) History of coronary artery disease History of atrial fibrillation Respiratory distress PVD (peripheral vascular disease) Abnormal computed tomography of abdomen and pelvis GI bleed Syncope Melena (Acute) Hematemesis (Acute) Elevated troponin (Acute) Elevated troponin 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) Anemia (Acute) Tracheostomy in place (Acute) Leukocytosis (Acute) Laryngeal cancer (Acute) Cellulitis (Acute) 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 (Acute) Severe sepsis Bacteremia due to Enterococcus (Acute) Sepsis Aspiration pneumonia (Acute) Aspiration pneumonia (Acute) Acute dyspnea (Acute) History of laryngectomy Aspiration pneumonia Multifocal pneumonia (Acute) Tracheostomy in place (Acute) Tracheobronchitis Hypoxia (Acute) SSS (sick sinus syndrome) (Chronic) History of CVA (cerebrovascular accident) (Chronic) February 2018, no deficits Tracheostomy in place (Acute) COPD (chronic obstructive pulmonary disease) Acute hypoxemic respiratory failure Peripheral eosinophilia Elevated troponin (Acute) Stenosis of left internal carotid artery History of cataract surgery (Chronic) H/O repair of right rotator cuff (Chronic) Anxiety (Chronic) 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 Symptoms were resolving by the time the patient arrived in the ED. 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 on CPAP no longer on CPAP post tracheostomy Surgical History Hx of laryngectomy (~1999) History of bronchoscopy History of tonsillectomy History of carotid endarterectomy RIGHT (MARCH 2018) History of cataract extraction with lens replacement cataract extraction with IOL implant and LRI left eye - 05/02/12 History of colonoscopy with polypectomy History of rotator cuff surgery Right - 2009 History of coronary artery bypass graft X2 VESSEL 1995 -- GAURIS LISS Family History Mother Essential hypertension Stroke Sister Cancer Breast cancer Daughter Cancer Colon cancer Social History Smoking Status: Former smoker Tobacco Type: Cigarettes Age Quit Using Tobacco: 55; packs per day: 2; Second Hand Exposure: No; Do You Dip or Chew Tobacco: No; Hx Alcohol Use: No Hx Substance Use: No Preferred Language: Czech Communication Ability: Effective Communication Ability Comment: write answers to questions, unable to talk Visual Impairment: No Limitations Hearing Ability: Normal Hospital Aide Required: No Beliefs That Will Affect Care: None marital status: Current Living Situation: Spouse Current Living Situation Comment: home with spouse current occupational status: retired How many Children do You have: 2 How many Children do You have Comment: Son can help other: Home health nursing twice per week Feels Safe at Home: Yes Safety Concerns: Feels Safe At This Time Diet: regular during the past year weight has: decreased > 10 lbs Physical Activity Frequency: Does not Exercise Assistive Devices: Cane, Nebulizer, Walker and Wheelchair Review of Systems Review of Systems: All systems reviewed & are unremarkable except as noted in HPI & below Physical Exam Physical Exam: General- Not in distress Head- atraumatic Eyes- PERRL. ENT- oropharynx clear Neck- supple, tracheal stoma seen Lungs- clear to auscultation no wheezing or crackles Heart- regular rate and rhythm; no murmur, no gallop. Abdomen- normal bowel sounds, soft, nontender, no distension Extremities- Right lower extremity edematous, no erythema seen Neuro- alert, oriented; PERRL, no facial palsy; moves extremities Results & Data Results & Data Vital Signs (Past 12 Hours) Vital Signs Temp Pulse Resp BP Pulse Ox O2 Del Method O2 Flow Rate 07/24/24 21:24 68 18 97 Room Air 0 07/24/24 21:03 68 07/24/24 20:23 36.5 C 93 H 15 127/67 98 Room Air Diagnostic Findings Laboratory Results WBC 8.85 K/ul (4.8-10.8) 03/30/25 21:14 RBC 3.24 M/uL (4.70-6.10) L 07/24/24 21:14 Hgb 9.1 g/dl (14.0-18.0) L 07/24/24 21:14 Hct 28.7 % (42.0-52.0) L 07/24/24 21:14 MCV 88.6 fL (80.0-100.0) 07/24/24 21:14 MCH 28.1 pg (25.0-34.0) 07/24/24 21:14 MCHC 31.7 g/dL (32.0-36.0) L 07/24/24 21:14 RDW Std Deviation 55.2 fL (36.4-46.3) H 07/24/24 21:14 RDW Coeff of Sharda 17.1 % (11.5-14.5) H 07/24/24 21:14 Plt Count 361 K/uL (130-400) 07/24/24 21:14 MPV 8.3 fL (9.4-12.4) L 07/24/24 21:14 Immature Gran % (Auto) 0.5 % 07/24/24 21:14 Neut % (Auto) 83.0 % 07/24/24 21:14 Lymph % (Auto) 7.1 % 07/24/24 21:14 Gosper % (Auto) 6.1 % 07/24/24 21:14 Eos % (Auto) 2.8 % 07/24/24 21:14 Baso % (Auto) 0.5 % 07/24/24 21:14 Neut # (Auto) 7.35 K/uL (1.40-6.50) H 07/24/24 21:14 Lymph # (Auto) 0.63 K/uL (1.20-3.40) L 07/24/24 21:14 Gosper # (Auto) 0.54 K/uL (0.11-0.59) 07/24/24 21:14 Eos # (Auto) 0.25 K/uL (0.00-0.50) 07/24/24 21:14 Baso # (Auto) 0.04 K/uL (0.00-0.20) 07/24/24 21:14 Immature Gran # (Auto) 0.04 K/uL (0.01-0.20) 07/24/24 21:14 PT 11.4 Seconds (9.0-12.0) 07/24/24 21:14 INR 1.1 (0.9-1.1) 07/24/24 21:14 APTT 31 Seconds (21-31) 07/24/24 21:14 PTT Ratio 1.2 07/24/24 21:14 Sodium 134 mmol/L (136-145) L 07/24/24 21:14 Potassium 3.8 mmol/L (3.5-5.1) 07/24/24 21:14 Chloride 99 mmol/L (98-107) 07/24/24 21:14 Carbon Dioxide 28 mmol/L (21-32) 07/24/24 21:14 Anion Gap 7 (3-11) 07/24/24 21:14 BUN 19 mg/dl (6-23) 07/24/24 21:14 Creatinine 0.82 mg/dl (0.6-1.4) 07/24/24 21:14 Est Cr Clr Drug Dosing 53.8 ml/min 07/24/24 21:14 eGFR 86.08 07/24/24 21:14 BUN/Creatinine Ratio 23.2 (10-20) H 07/24/24 21:14 Glucose 102 mg/dl (70-99(Fasting)) H 07/24/24 21:14 Calcium 8.8 mg/dl (8.6-10.3) 07/24/24 21:14 Total Bilirubin 0.4 mg/dl (0.2-1.0) 07/24/24 21:14 AST 16 U/L (13-39) 07/24/24 21:14 ALT 11 U/L (7-52) 07/24/24 21:14 Alkaline Phosphatase 91 U/L (34-104) 07/24/24 21:14 Total Protein 7.5 gm/dl (6.0-8.3) 07/24/24 21:14 Albumin 3.3 gm/dl (3.4-5.0) L 07/24/24 21:14 Globulin 4.2 gm/dl (2.5-4.0) H 07/24/24 21:14 Albumin/Globulin Ratio 0.8 (0.9-2) L 07/24/24 21:14 Impressions Venous Doppler Study 07/24/24 20:44 CR Exam(s): US VENOUS RIGHT LOWER EXTREMITY EXAM: US Duplex Right Lower Extremity Veins CLINICAL HISTORY: Reason for exam: RLE swelling. TECHNIQUE: Real-time duplex ultrasound scan of the right lower extremity veins integrating B-mode two-dimensional vascular structure, Doppler spectral analysis, color flow Doppler imaging and compression. COMPARISON: No relevant prior studies available. FINDINGS: Deep veins: There is nonocclusive thrombus noted in the right common femoral, femoral, popliteal and peroneal veins. Soft tissues: There is a 5.6 x 5.1 by the 4.8 cm hypoechoic lesion noted in the right inguinal region.. IMPRESSION: There is extensive deep venous thrombosis in the right lower extremity.. Communications: Call Doctor DVT acute, progressing Electronically signed by: Raphael Thomas MD 07/24/24 22:51 PM Chest X-Ray 07/24/24 20:45 Exam(s): XR CXR 1 VIEW EXAM: XR Chest, 1 View CLINICAL HISTORY: Reason for exam: weakness. TECHNIQUE: Frontal views of the chest. COMPARISON: 05/05/2024. FINDINGS: Lungs: No consolidation. There are findings suggestive of chronic obstructive pulmonary disease Pleural space: No pleural effusion is seen. No pneumothorax. Heart: A pacemaker is again noted. The heart is normal in size.. Mediastinum: There is mild uncoiling of thoracic aorta.. Bones/joints: There are degenerative changes in the spine.. IMPRESSION: No acute pulmonary disease. Possible COPD. Findings appears similar to previous exam Electronically signed by: Raphael Thomas MD 07/24/24 23:11 PM ECG Additional Comments: ECG. Probable junctional rhythm with rate 65. Nonspecific T wave abnormalities. Code Status & VTE Plan VTE Prophylaxis Plan VTE Prophylaxis will be ordered: Yes (1) Deep vein thrombosis (DVT) of right lower extremity Affected thrombotic vein of extremity: femoral Chronicity: acute Qualified Code(s): I82.411 - Acute embolism and thrombosis of right femoral vein
[2024-07-25 07:25] LABS: BUN Creatinine Ratio 21.7 (10-20); Calcium 8.1 mg/dl (8.6-10.3); Creatinine Clr Calc Pharmacy 53.1 ml/min; Magnesium 1.7 mg/dl (1.7-2.4); Potassium 3.7 mmol/L (3.5-5.1)
[2024-07-25] MEDS: LEVOTHYROXINE SODIUM 125 MCG TABLET PO SCH (07:26)
[2024-07-25 07:29] LABS: Basophils # (auto) 0.04 K/uL (0.00-0.20); Basophils % (auto) 0.5 %; Eosinophils # (auto) 0.37 K/uL (0.00-0.50); Eosinophils % (auto) 4.4 %; Hematocrit (blood only) 26.5 % (42.0-52.0); Hemoglobin 8.1 g/dl (14.0-18.0); Immature Granulocytes # (auto) 0.04 K/uL (0.01-0.20); Immature Granulocytes % (auto) 0.5 %; Lymphocytes # (auto) 0.56 K/uL (1.20-3.40); Lymphocytes % (auto) 6.6 %; Mean Corpuscular Hemoglobin 27.5 pg (25.0-34.0); Mean Corpuscular Hgb Conc 30.6 g/dL (32.0-36.0); Mean Corpuscular Volume 89.8 fL (80.0-100.0); Mean Platelet Volume 8.6 fL (9.4-12.4); Monocytes # (auto) 0.81 K/uL (0.11-0.59); Monocytes % (auto) 9.6 %; Neutrophils # (auto) 6.66 K/uL (1.40-6.50); Neutrophils % (auto) 78.4 %; Platelet Count 278 K/uL (130-400); RDW Coefficient of Variation 17.2 % (11.5-14.5); Red Blood Count 2.95 M/uL (4.70-6.10); White Blood Count 8.48 K/ul (4.8-10.8)
[2024-07-25 07:31] LABS: ANTI-Xa, UFH(UnfractionatedHep < 0.10 IU/ml (0.3-0.7)
[2024-07-25] MEDS: HEPARIN SOD (PORCINE) 1000 UNIT/ML ONE (07:49)
[2024-07-25] MEDS: FOLIC ACID 1 MG TAB PO SCH (08:01)
[2024-07-25] MEDS: ASCORBIC ACID 500 MG TAB PO SCH (08:01)
[2024-07-25] MEDS: CLOPIDOGREL BISULFATE 75 MG TAB PO SCH (08:01)
[2024-07-25] MEDS: FERROUS SULFATE 325 MG TAB PO SCH (08:01)
--- NOTE | 2024-07-25 08:39 | Electrocardiogram Report ---
Test Reason : Blood Pressure : */* mmHG Vent. Rate : 65 BPM Atrial Rate : 65 BPM P-R Int : 104 ms QRS Dur : 92 ms QT Int : 388 ms P-R-T Axes : 264 101 129 degrees QTcB Int : 403 ms Unusual P axis and short OR, probable junctional rhythm Old Lateral infarct Abnormal ECG When compared with ECG of 04-May-2024 16:47, Junctional rhythm has replaced Electronic atrial pacemaker Criteria for Old Lateral infarct is now Present Confirmed by Marquise Whittaker ([id number]) on 07/25/2024 8:39:31 AM Referred By: REFERRED SELF Confirmed By: Marquise Whittaker
[2024-07-25] MEDS: oxyCODONE/ACETAMINOPHEN 5mg/325mg TAB PO PRN (12:07)
--- NOTE | 2024-07-25 12:08 | Hospitalist Progress Note ---
Date of Service July 25, 2024 Assessment & Plan (1) Deep vein thrombosis (DVT) of right lower extremity: Plan 84 year old male with PMH significant for CAD (s/p CABG x2 1995), chronic HFpEF, moderate aortic stenosis, sick sinus syndrome (s/p dual chamber pacemaker 2017), paroxysmal A fib on Eliquis, history of TIA secondary to bilateral carotid artery stenosis (s/p right CEA 2017, left CEA 2018), HTN, HLD, hypothyroidism, depression/anxiety, COPD, iron deficiency anemia, and stage IV metastatic squamous cell cancer (initial laryngeal squamous cell carcinoma s/p radiation in 1985, s/p total laryngectomy/right subtotal thyroidectomy, tracheostomy in 2018, with metastasis in 2023) who presented to the ED with RLE swelling and was found to have a DVT. Deep vein thrombosis of right lower extremity -Venous dopper study with extensive DVT in RLE -IV heparin -Heme/onc consulted and recommend IV heparin/lovenox while inpatient with transition to Eliquis at discharge -Anti-xa at 0630 was <0.10, recheck at 1345 CAD (s/p CABG x2 1995) -Continue Plavix Chronic HFpEF -Not on home diuretics per records Sick sinus syndrome (s/p dual chamber pacemaker 2017) Paroxysmal A fib on Eliquis -Holding Eliquis while on IV heparin for DVT Hypertension -Not on home BP medications due to orthostatic hypotension per records Hyperlipidemia -Not on statin due to patient self discontinuation per records -Cardiology recommends atorvastatin 40mg per records Hypothyroidism -Continue levothyroxine COPD -Continue albuterol inhaler PRN Iron deficiency anemia -Continue ferrous sulfate Stage IV metastatic squamous cell cancer (initial laryngeal squamous cell carcinoma s/p radiation in 1985, s/p total laryngectomy/right subtotal thyroidectomy/tracheostomy in 2018, with metastasis found in 2023) -[facility] -Various challenges with chemo including IV access, diarrhea, allergic reaction per records -s/p Mediport placement on 06/24 -Prednisone 40mg daily for 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 Please see addendum. I spent a total of 50 minutes coordinating, documenting and providing care for this patient excluding time spent in the performance of separately billed services or time spent by another provider/QHP. Admission and Anticipated Discharge Date Admission Date: July 25, 2024 Subjective Patient seen in the ED Reports pain with bowel movements and nausea Denies fevers, chills, chest pain, SOB, abdominal pain Review of Systems Review of Systems: All systems reviewed & are unremarkable except as noted in HPI & below Physical Exam Physical Exam: VITALS: Reviewed and VSS GEN: Well-developed, male, NAD. PSYCH: Good Judgment. AOx3. Normal memory, mood, and affect. HEENT: Head NC/AT. Sclera white and conjunctiva pink. Nares without rhinorrhea. Nasal and oral mucosa pink. NECK: Tracheal stoma. CV: RRR, +murmur LUNGS: CTAB, no w/r/c. ABD: Soft, NT/ND, NBS, no masses or organomegaly. SKIN: Warm, well perfused. No skin rashes or abnormal lesions. MSK: No deformities EXT: No clubbing or cyanosis. 2+ edema of right lower extremity. NEURO: Moves extremities. Normal muscle strength and tone. No focal deficits. Results & Data Results & Data Vital Signs (Past 12 Hours) Vital Signs Pulse Pulse Resp BP BP Pulse Ox O2 Del Method 07/25/24 08:41 85 07/25/24 08:06 66 21 137/63 98 Room Air 07/25/24 06:00 73 18 139/60 98 Room Air 07/25/24 05:00 67 18 153/71 H 97 Room Air 07/25/24 03:03 72 18 168/77 H 98 Room Air 07/25/24 03:00 74 18 167/77 H 98 Room Air 07/25/24 01:28 70 18 161/77 H 100 Room Air 07/25/24 01:06 69 07/25/24 00:53 66 21 97 07/25/24 00:47 66 23 98 07/25/24 00:32 67 24 97 07/25/24 00:30 140/67 07/25/24 00:30 140/67 07/25/24 00:30 140/67 07/25/24 00:30 140/67 07/25/24 00:30 140/67 07/25/24 00:30 140/67 07/25/24 00:30 140/67 07/25/24 00:30 140/67 07/25/24 00:30 140/67 07/25/24 00:30 140/67 07/25/24 00:30 140/67 07/25/24 00:30 140/67 07/25/24 00:29 71 24 99 07/25/24 00:17 68 18 98 07/25/24 00:08 65 24 100 07/25/24 00:00 151/69 H 07/25/24 00:00 151/69 H 07/25/24 00:00 151/69 H 07/25/24 00:00 151/69 H 07/25/24 00:00 151/69 H 07/25/24 00:00 151/69 H 07/25/24 00:00 151/69 H 07/25/24 00:00 151/69 H 07/25/24 00:00 151/69 H 07/25/24 00:00 64 18 151/69 H 97 Room Air 07/24/24 23:56 72 24 100 Laboratory Results Short CBC 07/24/24 07/25/24 Range/Units 21:14 06:23 WBC 8.85 8.48 (4.8-10.8) K/ul Hgb 9.1 L 8.1 L (14.0-18.0) g/dl Hct 28.7 L 26.5 L (42.0-52.0) % Plt Count 361 278 (130-400) K/uL BMP 07/24/24 07/25/24 21:14 06:23 Sodium 134 L 134 L Potassium 3.8 3.7 Chloride 99 100 Carbon Dioxide 28 28 BUN 19 18 Creatinine 0.82 0.83 Glucose 102 H 97 Calcium 8.8 8.1 L Liver Function 07/24/24 Range/Units 21:14 Total Bilirubin 0.4 (0.2-1.0) mg/dl AST 16 (13-39) U/L ALT 11 (7-52) U/L Alkaline Phosphatase 91 (34-104) U/L Albumin 3.3 L (3.4-5.0) gm/dl I have independently reviewed and interpreted patient's labs including CBC, BMP, mag, heparin anti-xa. Medications Administered Current Inpatient Medications Acetaminophen (Acetaminophen 325 Mg Tab) 650 mg PO Q4H PRN PRN Reason: pain/fever Stop: 08/24/24 00:25 Albuterol (Albuterol 0.083% Nebu Soln 3 Ml Vial) 2.5 mg INH QID PRN; Protocol PRN Reason: Shortness Of Breath Or Wheezing Stop: 08/24/24 00:25 Ascorbic Acid (Ascorbic Acid 500 Mg Tab) [address] [facility] Stop: 08/24/24 08:59 Last Admin: 07/25/24 08:01 Dose: 250 mg Clopidogrel Bisulfate (Clopidogrel Bisulfate 75 Mg Tab) [address] [facility] Stop: 08/24/24 08:59 Last Admin: 07/25/24 08:01 Dose: 75 mg Ferrous Sulfate (Ferrous Sulfate 325 Mg Tab) [address] [facility] Stop: 08/24/24 08:59 Last Admin: 07/25/24 08:01 Dose: 325 mg Folic Acid (Folic Acid 1 Mg Tab) 1 mg PO DAILY [facility] Stop: 08/24/24 08:59 Last Admin: 07/25/24 08:01 Dose: 1 mg Heparin Sodium/Dextrose (Heparin 61750 Unit/500 Ml D5w) 25,000 units in 500 mls @ 21 mls/hr IV .[id number] [facility]; Protocol Stop: 08/23/24 22:59 Last Titration: 07/25/24 07:49 Dose: 1,200 units/hr, 24 mls/hr Levothyroxine Sodium (Levothyroxine Sodium 125 Mcg Tablet) [facility] Stop: 08/24/24 06:29 Last Admin: 07/25/24 07:26 Dose: 125 mcg Oxycodone/Acetaminophen (Oxycodone/Acetaminophen 5mg/325mg Tab) 1 tab PO Q8H PRN PRN Reason: pain Stop: 08/08/24 00:25 Polyethylene Glycol (Polyethylene (Miralax) 17 Gm Pack) 17 gm PO DAILY PRN PRN Reason: Constipation Stop: 08/24/24 00:25 Sodium Chloride (Sodium Chlor 7% 4 Ml Neb) 4 ml NEB BIDR PRN PRN Reason: mucus plugging Stop: 08/24/24 00:25 (1) Deep vein thrombosis (DVT) of right lower extremity Affected thrombotic vein of extremity: femoral Chronicity: acute Qualified Code(s): I82.411 - Acute embolism and thrombosis of right femoral vein
[2024-07-25] MEDS: predniSONE 20 MG TAB PO SCH (13:25)
[2024-07-25 14:07] VITALS: BP 116/53; PULSE 65; RESP 16; O2SAT 100
--- NOTE | 2024-07-25 15:09 | Discharge Summary ---
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: (3) Laryngeal cancer: (4) Tracheostomy in place: (5) CAD (coronary artery disease): (6) (HFpEF) heart failure with preserved ejection fraction: (7) SSS (sick sinus syndrome): (8) Cardiac pacemaker in situ: (9) History of atrial fibrillation: (10) HTN (hypertension): (11) Dyslipidemia: (12) Hypothyroidism (acquired): (13) COPD (chronic obstructive pulmonary disease): (14) Iron deficiency anemia: Plan 84 year old male with PMH significant for CAD (s/p CABG x2 1995), chronic HFpEF, moderate aortic stenosis, sick sinus syndrome (s/p dual chamber pacemaker 2017), paroxysmal A fib on Eliquis, history of TIA secondary to bilateral carotid artery stenosis (s/p right CEA 2017, left CEA 2018), HTN, HLD, hypothyroidism, depression/anxiety, COPD, iron deficiency anemia, and stage IV metastatic squamous cell cancer (initial laryngeal squamous cell carcinoma s/p radiation in 1985, s/p total laryngectomy/right subtotal thyroidectomy, tracheostomy in 2019, with metastasis in 2023) who presented to the ED with RLE swelling and was found to have a DVT. Deep vein thrombosis of right lower extremity -Venous dopper study with extensive DVT in RLE -Heme/onc consulted and recommend Eliquis at discharge Stage IV metastatic squamous cell cancer (initial laryngeal squamous cell carcinoma s/p radiation in 1985, s/p total laryngectomy/right subtotal thyroidectomy/tracheostomy in 2018, with metastasis found in 2023) -[facility] -Various challenges with chemo including IV access, diarrhea, allergic reaction per records -s/p Mediport placement on 06/24 -Ordered Prednisone PO taper for diarrhea secondary to immunotherapy per Dr Eliana HANSEN (s/p CABG x2 1995) -Continue Plavix per home dosing Chronic HFpEF -Not on home diuretics per records Sick sinus syndrome (s/p dual chamber pacemaker 2017) Paroxysmal A fib on Eliquis -Continue Eliquis per home dosing Hypertension -Not on home BP medications due to orthostatic hypotension per records Hyperlipidemia -Not on statin due to patient self discontinuation per records -Cardiology recommends atorvastatin 40mg per records Hypothyroidism -Continue levothyroxine per home dosing COPD -Continue albuterol inhaler PRN per home dosing Iron deficiency anemia -Continue ferrous sulfate per home dosing Patient seen in collaboration with Dr Wang. Please see addendum. Notes For Next Care Provider 84 year old male with extensive PMH including stage IV metastatic cancer who presented to the ED with a DVT. Heme onc was consulted and recommended discharge on Eliquis per home dosing. Patient having continued diarrhea and pain likely secondary to immunotherapy. Sent home on another prednisone taper. Medication Changes From Visit Restart Eliquis 5mg PO bid Prednisone taper per instructions Admission HPI Per Admitting Provider 84-year-old male with past medical history significant for hypothyroidism, hyperlipidemia, COPD, sleep apnea, laryngeal cancer status post laryngectomy and neck dissection, subtotal thyroidectomy, s/p radiation ,status post creation of tracheal stoma, history of CAD status post CABG, sick sinus syndrome status post dual-chamber pacemaker, paroxysmal atrial fibrillation on anticoagulant with Eliquis, status post endarterectomy, hypertension, hyperlipidemia, history of CVA, nonrheumatic aortic valve stenosis, chronic heart failure with preserved ejection fraction, GERD, iron deficiency anemia, GERD, anxiety, depression who lives at home with his and ambulates without support comes in because of right lower EXTR swelling. Patient speaking but no voice. He says has swelling in right lower extremity for last 4 days. Denies any pain. Denies any fever. No chest pain. No shortness of breath. No cough. No headache. No dizziness. Vision is okay. No runny nose or sore throat. Appetite is good. No difficulty swallowing as per patient. No nausea. No abdominal pain. Normal bowel and bladder movements. Patient says he has procedure on the left thigh about 10 days ago and since then he stopped Eliquis. He states stopped Eliquis 2 days prior to surgery. And has not started back as per patient. As per records he seemed to had a- port on left thigh on 06/24/2024. Past medical history. As mentioned above Past surgical history. Colonoscopy with biopsy. CABG. EGD with biopsy. Esophagoscopy. Cataract extraction. Laryngoscopy with biopsy. Laryngectomy subtotal supraglottic with dissection. Laryngectomy. Laryngoplasty. Cervical lymphadenectomy modified radical neck dissection. Removal of excess skin and subcutaneous tissue. Right rotator cuff repair. Tracheostoma revision. Revision of tracheostomy scar. Construct Tramquel esophageal fistula. Cricopharyngeal myotomy. Tracheal puncture. Social history. . Quit smoking 1984. Smoked 2 pack a day for 30 years. Alcohol occasional. No drug use. Family history. Mother had glaucoma. Eye problems. Hypertension. Father had heart attack. Lung cancer. Sister had breast cancer. Admission Exam Per Admitting Provider General- Not in distress Head- atraumatic Eyes- PERRL. ENT- oropharynx clear Neck- supple, tracheal stoma seen Lungs- clear to auscultation no wheezing or crackles Heart- regular rate and rhythm; no murmur, no gallop. Abdomen- normal bowel sounds, soft, nontender, no distension Extremities- Right lower extremity edematous, no erythema seen Neuro- alert, oriented; PERRL, no facial palsy; moves extremities Discharge Exam VITALS: Reviewed and VSS GEN: Well-developed, male, NAD. PSYCH: Good Judgment. AOx3. Normal memory, mood, and affect. HEENT: Head NC/AT. Sclera white and conjunctiva pink. Nares without rhinorrhea. Nasal and oral mucosa pink. NECK: Tracheal stoma. CV: RRR, no m/r/g. LUNGS: CTAB, no w/r/c. ABD: Soft, NT/ND, NBS, no masses or organomegaly. SKIN: Warm, well perfused. No skin rashes or abnormal lesions. MSK: No deformities EXT: No clubbing or cyanosis. 2+ edema of right lower extremity. NEURO: Moves extremities. Normal muscle strength and tone. No focal deficits. Updated Medication List Medication Instructions Recorded Confirmed Type levothyroxine 125 mcg tablet 125 mcg PO DAILYBB 03/25/18 07/24/24 History nitroglycerin 0.4 mg sublingual 1 tab sublingual UD PRN Chest Pain 03/25/18 07/24/24 History tablet clopidogrel 75 mg tablet 75 mg PO QAM 06/03/18 07/24/24 History albuterol sulfate 2.5 mg/3 mL 2.5 mg inhalation QID PRN 08/19/19 07/24/24 History (0.083 %) solution for nebulization Shortness Of Breath Or Wheezing polyethylene glycol 3350 17 gram 17 g PO DAILY PRN Constipation 11/02/20 07/24/24 History oral powder packet (Miralax) apixaban 5 mg tablet (Eliquis) 5 mg PO AMHS 09/13/21 07/24/24 History folic acid 1 mg tablet 0 mg PO DAILY 03/31/24 07/24/24 History iron,carbonyl 65 mg-vitamin C 125 1 tab PO QAM 03/31/24 07/24/24 History mg tablet,delayed release (Vitron-C) triamcinolone acetonide 0.1 % 1 applic topical BID 03/31/24 07/24/24 History topical cream sodium chloride 7 % for 4 ml NEB BIDR PRN mucus plugging 04/02/24 07/24/24 Rx nebulization #240 mL oxycodone-acetaminophen 5 mg-325 1 tab PO Q8H PRN pain #10 tabs 06/24/24 07/24/24 Rx mg tablet (Percocet) olanzapine 2.5 mg tablet 2.5 mg PO DAILY 07/24/24 07/24/24 History prednisone 20 mg tablet 20 mg PO DAILY 0 days #36 tabs 07/25/24 Rx Hospital Stay Data Consultations 07/24/24 22:32 ED Decision to Admit Stat 07/25/24 08:00 Consult Oncology Routine Diagnostic Imagining Performed Venous Doppler Study 07/24/24 20:44 CR Exam(s): US VENOUS RIGHT LOWER EXTREMITY EXAM: US Duplex Right Lower Extremity Veins CLINICAL HISTORY: Reason for exam: RLE swelling. TECHNIQUE: Real-time duplex ultrasound scan of the right lower extremity veins integrating B-mode two-dimensional vascular structure, Doppler spectral analysis, color flow Doppler imaging and compression. COMPARISON: No relevant prior studies available. FINDINGS: Deep veins: There is nonocclusive thrombus noted in the right common femoral, femoral, popliteal and peroneal veins. Soft tissues: There is a 5.6 x 5.1 by the 4.8 cm hypoechoic lesion noted in the right inguinal region.. IMPRESSION: There is extensive deep venous thrombosis in the right lower extremity.. Communications: Call Doctor DVT acute, progressing Electronically signed by: Raphael Thomas MD 07/24/24 22:51 PM Chest X-Ray 07/24/24 20:45 Exam(s): XR CXR 1 VIEW EXAM: XR Chest, 1 View CLINICAL HISTORY: Reason for exam: weakness. TECHNIQUE: Frontal views of the chest. COMPARISON: 05/05/2024. FINDINGS: Lungs: No consolidation. There are findings suggestive of chronic obstructive pulmonary disease Pleural space: No pleural effusion is seen. No pneumothorax. Heart: A pacemaker is again noted. The heart is normal in size.. Mediastinum: There is mild uncoiling of thoracic aorta.. Bones/joints: There are degenerative changes in the spine.. IMPRESSION: No acute pulmonary disease. Possible COPD. Findings appears similar to previous exam Electronically signed by: Raphael Thomas MD 07/24/24 23:11 PM Pending Results Patient Have Any Pending Studies at Discharge: No Discharge Instructions Given to Patient (Per Discharging Provider) You came to the ED for swelling of your right lower leg. We performed an ultrasound which found a deep vein thrombosis of your right lower leg. This likely happened due to your active cancer. We consulted Dr. Odom who was comfortable with you being discharged on your Eliquis. We are also sending a prednisone taper for your diarrhea likely due to your cancer medications. MEDICATION CHANGES: Please take your Eliquis 5mg by mouth twice a day Please take Prednisone by mouth and follow the taper instructions SUMMARY OF TEST RESULTS: See above PENDING TEST RESULTS: None RECOMMENDATIONS FOR FOLLOW-UP: Please follow up with your PCP after being in the ED Please follow up with your Oncologist for ongoing management of your cancer OTHER INSTRUCTIONS: Seek medical attention if you have: * temperature above 101 * chest pain or trouble breathing * abdominal pain, nausea, vomiting * diarrhea, dark stools or bloody stools * any unanswered questions or concerns Call 911 if symptoms are severe. It has been a pleasure taking care of you. Please take care of yourself. If you have any questions regarding your recent hospitalization please contact [facility] and request Titabenji Campbellist @ [phone]. Total Time Total Time Spent Total Time Spent (In Minutes): I spent a total of 50 minutes coordinating, documenting and providing care for this patient excluding time spent in the performance of separately billed services or time spent by another provider/QHP. Supervising Physician Co-Signing Physician Notes Patient seen and examined at bedside. Patient doing well today. He states he has been having diarrhea for a few days. This is causing him distress. He did notice leg swelling in the right lower extremity. Ultrasound revealed DVT of the right lower extremity, patient has been off Eliquis for quite some time. States he really wants to go home. On exam, RLE edema with palpable pulse and good movement of extremity, chronic hoarseness in setting of known malignancy. 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 Discussed with patients oncologist, start prednisone taper for colitis symptoms. Also discussed anticoagulation with oncologist, will discharge home with Eliquis as patient had significant break off of blood thinner and this is not considered Eliquis failure. I have seen and discussed the case with the collaborating advanced practitioner. I agree with the above H&P. I have reviewed and confirmed the patients medical history, the findings on physical examination, and the patients diagnosis and treatment plan with Alea POSADA and agree with the information documented. I spent a total of 20 minutes coordinating, documenting, and providing care for this patient excluding time spent in the performance of separately billed services. All of the aforementioned completed outside of collaborating with the assigned advanced practitioner for a full treatment plan. I have reviewed the advanced practitioner's documentation, and I agree with, and take responsibility for the plan of care
--- NOTE | 2024-07-26 08:12 | Oncology Consultation ---
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 Patient can restart Eliquis. Thank you for this consult. Please feel free to call if you have any further questions. History of Present Illness Reason for Consultation: DVT Attending Physician: Yoshi Wang MD History of Present Illness 84-year-old gentleman with medical history significant for metastatic head and neck cancer, atrial fibrillation on Eliquis. Patient recently had port placed in the left femoral vein on 06/24/2024. Prior to port placement, was told to stop Eliquis and he did not restart up until presentation to the ER with complaints of right lower extremity pain. Ultrasound which was obtained on 07/24/2024 showed right common femoral, femoral, popliteal and peroneal vein nonocclusive thrombus. Allergies Allergy/AdvReac Type Severity Reaction Status Date / Time rosuvastatin [From Crestor] Allergy Unknown HAPPENED A Verified 07/24/24 21:30 LONG TIME AGO. Home Medications Medication Instructions Recorded Confirmed Type levothyroxine 125 mcg tablet 125 mcg PO DAILYBB 03/25/18 07/24/24 History nitroglycerin 0.4 mg sublingual 1 tab sublingual UD PRN Chest Pain 03/25/18 07/24/24 History tablet clopidogrel 75 mg tablet 75 mg PO QAM 06/03/18 07/24/24 History albuterol sulfate 2.5 mg/3 mL 2.5 mg inhalation QID PRN 08/19/19 07/24/24 History (0.083 %) solution for nebulization Shortness Of Breath Or Wheezing polyethylene glycol 3350 17 gram 17 g PO DAILY PRN Constipation 11/02/20 07/24/24 History oral powder packet (Miralax) apixaban 5 mg tablet (Eliquis) 5 mg PO AMHS 09/13/21 07/24/24 History folic acid 1 mg tablet 0 mg PO DAILY 03/31/24 07/24/24 History iron,carbonyl 65 mg-vitamin C 125 1 tab PO QAM 03/31/24 07/24/24 History mg tablet,delayed release (Vitron-C) triamcinolone acetonide 0.1 % 1 applic topical BID 03/31/24 07/24/24 History topical cream sodium chloride 7 % for 4 ml NEB BIDR PRN mucus plugging 04/02/24 07/24/24 Rx nebulization #240 mL oxycodone-acetaminophen 5 mg-325 1 tab PO Q8H PRN pain #10 tabs 06/24/24 07/24/24 Rx mg tablet (Percocet) olanzapine 2.5 mg tablet 2.5 mg PO DAILY 07/24/24 07/24/24 History prednisone 20 mg tablet 20 mg PO DAILY 0 days #36 tabs 07/25/24 Rx Patient History Medical History S/P radiation therapy Thyroid disease Back problem Moderate aortic stenosis Acute electrocardiogram changes Difficult airway for intubation H/o glidescope #4 with CEA 03/2018 Carotid artery stenosis with cerebral infarction over 8 weeks ago The patient presented to [facility] ED on 03/26/18 with expressive aphasia, left upper extremity numbness, left lower extremity weakness. Symptoms were resolving by the time the patient arrived in the ED. 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 on CPAP no longer on CPAP post tracheostomy Surgical History Hx of laryngectomy (~1999) History of bronchoscopy History of tonsillectomy History of carotid endarterectomy RIGHT (MARCH 2018) History of cataract extraction with lens replacement cataract extraction with IOL implant and LRI left eye - 05/02/12 History of colonoscopy with polypectomy History of rotator cuff surgery Right - 2009 History of coronary artery bypass graft X2 VESSEL 1995 -- [facility] Family History Mother Essential hypertension Stroke Sister Cancer Breast cancer Daughter Cancer Colon cancer Social History Smoking Status: Former smoker Tobacco Type: Cigarettes Age Quit Using Tobacco: 55; packs per day: 2; Second Hand Exposure: No; Do You Dip or Chew Tobacco: No; Hx Alcohol Use: No Hx Substance Use: No Preferred Language: Sinhala Communication Ability: Effective Communication Ability Comment: write answers to questions, unable to talk Visual Impairment: No Limitations Hearing Ability: Normal 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: No Beliefs That Will Affect Care: None marital status: Current Living Situation: Spouse Current Living Situation Comment: home with spouse current occupational status: retired How many Children do You have: 2 How many Children do You have Comment: Son can help other: Home health nursing twice per week Feels Safe at Home: Yes Safety Concerns: Feels Safe At This Time Diet: regular during the past year weight has: decreased > 10 lbs Physical Activity Frequency: Does not Exercise Assistive Devices: Cane, Nebulizer, Walker and Wheelchair (1) Deep vein thrombosis (DVT) of right lower extremity Affected thrombotic vein of extremity: femoral Chronicity: acute Qualified Code(s): I82.411 - Acute embolism and thrombosis of right femoral vein
== END 2024-07-25 16:17 | disposition home or self-care (01) ==
LOC: ED 20:19 → INTOOBSV 07-25 → EDINP 07-25

== ENCOUNTER 2024-08-05 15:26 | Observation (INO) ==
--- NOTE | 2024-08-05 16:31 | XRay Report ---
EXAM: Radiograph of the Chest 1 View INDICATION: Weakness TECHNIQUE: Frontal view of the chest. COMPARISON: 07/24/2024 FINDINGS: Lungs and pleural spaces: Stable symmetrical air trapping with minimal scattered parenchymal scarring. No consolidation or pulmonary edema. No pleural effusion or pneumothorax. Heart: Shape and configuration within normal limits allowing for technique. Mediastinum: Normal contour. Bones/joints: Degenerative changes noted throughout the spine and both shoulders. No lytic or blastic lesions noted. Soft tissues: No abnormality noted. No radiopaque foreign body noted. Tubes, lines and devices: Stable normal shape and configuration of the cardiac shadow and intact pacing device. Upper abdomen: No abnormality noted. IMPRESSION: Stable chronic changes. No acute disease. ACT 112: N/A Electronically signed by Kati Carrington 08-05-2024 4:29 PM
[2024-08-05 16:37] LABS: Basophils # (auto) 0.02 K/uL (0.00-0.20); Basophils % (auto) 0.2 %; Hematocrit (blood only) 28.2 % (42.0-52.0); Hemoglobin 8.7 g/dl (14.0-18.0); Lymphocytes # (auto) 0.54 K/uL (1.20-3.40); Lymphocytes % (auto) 5.2 %; Mean Corpuscular Hemoglobin 27.6 pg (25.0-34.0); Mean Corpuscular Hgb Conc 30.9 g/dL (32.0-36.0); Mean Corpuscular Volume 89.5 fL (80.0-100.0); Mean Platelet Volume 8.9 fL (9.4-12.4); Monocytes # (auto) 0.62 K/uL (0.11-0.59); Monocytes % (auto) 5.9 %; Neutrophils # (auto) 9.05 K/uL (1.40-6.50); Neutrophils % (auto) 86.7 %; Platelet Count 277 K/uL (130-400); RDW Coefficient of Variation 17.7 % (11.5-14.5); RDW Standard Deviation 57.3 fL (36.4-46.3); Red Blood Count 3.15 M/uL (4.70-6.10); White Blood Count 10.43 K/ul (4.8-10.8)
[2024-08-05 16:40] LABS: Albumin Globulin Ratio 0.8 (0.9-2); Albumin Level 2.9 gm/dl (3.4-5.0); BUN Creatinine Ratio 31.3 (10-20); Bilirubin,Total 0.7 mg/dl (0.2-1.0); Calcium 8.5 mg/dl (8.6-10.3); Creatinine Clr Calc Pharmacy 89.9 ml/min; Globulin 3.5 gm/dl (2.5-4.0); Magnesium 1.9 mg/dl (1.7-2.4); Potassium 3.5 mmol/L (3.5-5.1); Total Protein 6.4 gm/dl (6.0-8.3)
[2024-08-05 16:56] LABS: Thyroid Stimulating Hormone 4.465 uIu/ml (0.300-4.500)
--- NOTE | 2024-08-05 17:21 | Emergency Department Note ---
Impression & Plan Generalized weakness, Elevated troponin, Diarrhea ED Provider Note NAME: ALEXANDRA PETERS AGE: 84 SEX: Male INFORMANT: Patient ED PROVIDER(S): Kimo Osman MD CHIEF COMPLAINT: Weakness PLAN: Disposition: Admitted Outpatient prescription management: none Referral: None MEDICAL DECISION MAKING: Patient presented because of increased weakness after multiple days of diarrhea. Patient was monitored for several hours and was unable to provide a stool sample here. He had CBC and chemistry panel performed. He was moderately anemic but stable compared to prior. No leukocytosis. Patient was mildly dehydrated on chemistry panel. He felt somewhat better with fluid hydration here however he was still generally weak and was unable to ambulate. Patient's cardiac troponin was borderline. Repeat showed slight decrease. His ECG did not show any acute ischemia. He had no chest pain or abdominal pain. As he is generally weak and stool testing is still not completed further management hospitalist felt to be appropriate. Consultation was made with the [facility] service, Dr. Ramirez. Patient was evaluated in the ER and admitted for further management Care/management discussed with: mental health program manager Level of care consideration(s): After review of the information above and other included data, I feel the patient requires escalation of care to admission Triage Nursing notes: reviewed and agree them. Vital Signs: reviewed and remarkable for no significant abnormalities Additional History obtained from: none Chronic Medical/Social Conditions affecting care: History of laryngectomy, history of sepsis hypothyroidism Prior/ Outside/ External records reviewed: none Differential Diagnosis: Infection, dehydration, metabolic abnormality, hypo/hyperglycemia, electrolyte disturbance, anemia, hypoxia, cardiac sources, intracerebral event, toxicologic, neurologic, as well as other pathologies. Diagnostics, independently interpreted by me: ECG: Twelve-lead ECG reveals an atrial paced rhythm at [address] elevation or depression. Cardiac Monitoring: Cardiac monitoring ordered by me: The patient was placed on continuous cardiac monitoring and observed. It revealed a normal sinus rhythm at 61 beats per minute without ectopy or evidence of dysrhythmia. Medical decision rules: none Imaging studies: Chest x-ray. Findings: A chest x-ray was performed and revealed no pneumothorax, effusion, infiltrate, pulmonary edema, free air under the diaphragm, or wide mediastinum. Impression: No acute disease. HPI: 84 year old Male arrives for evaluation of generalized weakness. This started several days ago and is worsening per the patient. The patient also notes the following associated symptoms, multiple episodes of nonbloody diarrhea and fatigue. The patient has found no relieving factors. Current pain is rated as 0/10. Patient notes several weeks ago he was diagnosed with a DVT in the right leg and is on blood thinners. Pt denies LOC, headache, fevers, chills, diaphoresis, visual changes, neck pain, chest pain, breathing difficulties, nausea, vomiting, abdominal pain, back pain, melena, hematochezia, urinary symptoms, numbness, lymphadenopathy, rash, or other complaints.. PAST MEDICAL HISTORY: See Below, anticoagulated, heart failure, DVT, hypothyroidism PAST SURGICAL HISTORY: See Below, SOCIAL HISTORY: See Below, lives with HOME MEDICATIONS: See Below ALLERGIES: See Below VITALS: See Below PHYSICAL EXAMINATION: GENERAL: Awake, alert, [id number], in no distress HENT: Normocephalic, atraumatic. Oropharynx unremarkable. EYES: Pale conjunctiva. Sclera non-icteric. NECK: Inspection normal. Non-tender. Supple. No nuchal rigidity. FROM. No masses. RESPIRATORY: Clear to auscultation. No wheezes. No rales. Normal respiratory effort. CARDIAC: Normal rate. Normal rhythm. No murmurs. No rubs. Extremities warm and well perfused. Pulses equal. No JVD. GI: Soft, non-distended. No tenderness to palpation. No rebound or guarding. No masses. RECTAL: Deferred. MUSCULOSKELETAL: Atraumatic. Chest examination reveals no tenderness. The back is symmetrical on inspection without obvious abnormality. There is no CVA tenderness to palpation. No joint edema. LOWER EXTREMITIES: The right lower leg is more edematous than the left. 2+ on the right 1+ on the left. No tenderness to palpation. Patient states this has been present since diagnosis with his DVT. NEURO: Normal sensorium. Generally weak but no focal sensory or motor deficits noted. SKIN: No rash or jaundice noted. 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 Iron deficiency anemia (HFpEF) heart failure with preserved ejection fraction History of atrial fibrillation (Acute) Right leg swelling (Acute) Deep vein thrombosis (DVT) of right lower extremity (Acute) S/P vascular surgery Pressure ulcer, buttock Mucus plugging of bronchi (Acute) Mucus plug in respiratory tract (Acute) Leukocytosis (Acute) Depression Hypothyroidism (acquired) History of coronary artery disease History of atrial fibrillation Respiratory distress PVD (peripheral vascular disease) Abnormal computed tomography of abdomen and pelvis GI bleed Syncope Melena (Acute) Hematemesis (Acute) Elevated troponin (Acute) Elevated troponin 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) Anemia (Acute) Tracheostomy in place (Acute) Leukocytosis (Acute) Laryngeal cancer (Acute) Cellulitis (Acute) 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 (Acute) Severe sepsis Bacteremia due to Enterococcus (Acute) Sepsis Aspiration pneumonia (Acute) Aspiration pneumonia (Acute) Acute dyspnea (Acute) History of laryngectomy Aspiration pneumonia Multifocal pneumonia (Acute) Tracheostomy in place (Acute) Tracheobronchitis Hypoxia (Acute) SSS (sick sinus syndrome) (Chronic) History of CVA (cerebrovascular accident) (Chronic) February 2018, no deficits Tracheostomy in place (Acute) COPD (chronic obstructive pulmonary disease) Acute hypoxemic respiratory failure Peripheral eosinophilia Elevated troponin (Acute) Stenosis of left internal carotid artery History of cataract surgery (Chronic) H/O repair of right rotator cuff (Chronic) Anxiety (Chronic) 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 Symptoms were resolving by the time the patient arrived in the ED. 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 on CPAP no longer on CPAP post tracheostomy Surgical History Hx of laryngectomy (~1999) History of bronchoscopy History of tonsillectomy History of carotid endarterectomy RIGHT (MARCH 2018) History of cataract extraction with lens replacement cataract extraction with IOL implant and LRI left eye - 05/02/12 History of colonoscopy with polypectomy History of rotator cuff surgery Right - 2009 History of coronary artery bypass graft X2 VESSEL 1995 -- [place] Family History Mother Essential hypertension Stroke Sister Cancer Breast cancer Daughter Cancer Colon cancer Social History Smoking Status: Former smoker Tobacco Type: Cigarettes Age Quit Using Tobacco: 55; packs per day: 2; Second Hand Exposure: No; Do You Dip or Chew Tobacco: No; Hx Alcohol Use: No Hx Substance Use: No Preferred Language: Bulgarian Communication Ability: Effective Communication Ability Comment: write answers to questions, unable to talk Visual Impairment: No Limitations Hearing Ability: Normal Poultry Raiser Required: No Beliefs That Will Affect Care: None marital status: Current Living Situation: Spouse Current Living Situation Comment: home with spouse current occupational status: retired How many Children do You have: 2 How many Children do You have Comment: Son can help other: Home health nursing twice per week Feels Safe at Home: Yes Diet: regular during the past year weight has: decreased > 10 lbs Physical Activity Frequency: Does not Exercise Assistive Devices: Cane, Nebulizer, Walker and Wheelchair Allergies Allergies Allergy/AdvReac Type Severity Reaction Status Date / Time rosuvastatin [From Crestor] Allergy Unknown HAPPENED A Verified 08/05/24 17:41 LONG TIME AGO. Home Meds Home Medications Medication Instructions Recorded Confirmed levothyroxine 125 mcg tablet 125 mcg PO DAILYBB 03/25/18 08/05/24 nitroglycerin 0.4 mg sublingual 1 tab sublingual UD PRN Chest Pain 03/25/18 08/05/24 tablet clopidogrel 75 mg tablet 75 mg PO QAM 06/03/18 08/05/24 albuterol sulfate 2.5 mg/3 mL 2.5 mg inhalation QID PRN 08/19/19 08/05/24 (0.083 %) solution for nebulization Shortness Of Breath Or Wheezing polyethylene glycol 3350 17 gram 17 g PO DAILY PRN Constipation 11/02/20 08/05/24 oral powder packet (Miralax) apixaban 5 mg tablet (Eliquis) 5 mg PO AMHS 09/13/21 08/05/24 iron,carbonyl 65 mg-vitamin C 125 1 tab PO QAM 03/31/24 08/05/24 mg tablet,delayed release (Vitron-C) triamcinolone acetonide 0.1 % 1 applic topical BID 03/31/24 08/05/24 topical cream olanzapine 2.5 mg tablet 2.5 mg PO HS 07/24/24 08/05/24 aspirin 81 mg tablet,delayed 81 mg PO DAILY 08/05/24 08/05/24 release atorvastatin 40 mg tablet 40 mg PO DAILY 08/05/24 08/05/24 diphenoxylate-atropine 2.5 1 tab PO QID PRN Diarrhea 08/05/24 08/05/24 mg-0.025 mg tablet ferrous sulfate 325 mg (65 mg 325 mg PO DAILY 08/05/24 08/05/24 iron) tablet metoprolol succinate 25 mg 12.5 mg PO DAILY 08/05/24 08/05/24 tablet,extended release 24 hr mirtazapine 15 mg tablet 15 mg PO HS 08/05/24 08/05/24 pantoprazole 40 mg tablet,delayed 40 mg PO DAILY 08/05/24 08/05/24 release paroxetine HCl 20 mg tablet (Paxil) 20 mg PO HS 08/05/24 08/05/24 potassium chloride 10 mEq 10 meq PO DAILY 08/05/24 08/05/24 tablet,extended release tamsulosin 0.4 mg capsule 0.4 mg PO DAILY 08/05/24 08/05/24 Previous Rx's Medication Instructions Recorded sodium chloride 7 % for 4 ml NEB BIDR PRN mucus plugging 04/02/24 nebulization #240 mL oxycodone-acetaminophen 5 mg-325 1 tab PO Q8H PRN pain #10 tabs 06/24/24 mg tablet (Percocet) prednisone 20 mg tablet 20 mg PO DAILY 0 days #36 tabs 07/25/24 Results & Data (ED) Vital Signs Vital Signs - 24 hr 08/05/24 15:40 08/05/24 16:00 08/05/24 19:00 Temperature 36.7 C Temperature Source Oral Pulse Rate 78 68 Pulse Rate [Apical] 70 Respiratory Rate 22 22 Respiratory Effort / Characteristics Non-Labored Blood Pressure 123/65 Blood Pressure [Right Arm] 120/50 L Blood Pressure Mean 84 Blood Pressure Mean [Right Arm] 73 Pulse Oximetry 96 97 Oxygen Delivery Method Room Air Room Air Sepsis New/Unexplained Change in Mental Status No Sepsis Action Taken by Nursing No Action Required 08/05/24 19:30 08/05/24 19:43 08/05/24 20:00 Temperature Temperature Source Pulse Rate 74 Pulse Rate [Apical] 62 75 Respiratory Rate 18 20 Respiratory Effort / Characteristics Blood Pressure Blood Pressure [Right Arm] 111/55 L 127/61 Blood Pressure Mean Blood Pressure Mean [Right Arm] 73 83 Pulse Oximetry 98 97 Oxygen Delivery Method Room Air Room Air Sepsis New/Unexplained Change in Mental Status Sepsis Action Taken by Nursing 08/05/24 20:30 08/05/24 20:44 08/05/24 21:00 Temperature Temperature Source Pulse Rate Pulse Rate [Apical] 72 62 Respiratory Rate 22 22 Respiratory Effort / Characteristics Blood Pressure Blood Pressure [Right Arm] 124/56 L 115/78 Blood Pressure Mean Blood Pressure Mean [Right Arm] 78 90 Pulse Oximetry 97 97 98 Oxygen Delivery Method Room Air Room Air Room Air Sepsis New/Unexplained Change in Mental Status Sepsis Action Taken by Nursing 08/05/24 22:00 08/05/24 23:36 Temperature Temperature Source Pulse Rate 61 Pulse Rate [Apical] 60 Respiratory Rate 20 Respiratory Effort / Characteristics Blood Pressure Blood Pressure [Right Arm] 102/41 L Blood Pressure Mean Blood Pressure Mean [Right Arm] 61 Pulse Oximetry 94 Oxygen Delivery Method Room Air Sepsis New/Unexplained Change in Mental Status Sepsis Action Taken by Nursing Laboratory Data 08/05/24 15:50 08/05/24 15:50 Lab Results 08/05/24 08/05/24 08/05/24 Range/Units 15:50 17:00 18:14 WBC 10.43 (4.8-10.8) K/ul RBC 3.15 L (4.70-6.10) M/uL Hgb 8.7 L (14.0-18.0) g/dl Hct 28.2 L (42.0-52.0) % MCV 89.5 (80.0-100.0) fL MCH 27.6 (25.0-34.0) pg MCHC 30.9 L (32.0-36.0) g/dL RDW Std Deviation 57.3 H (36.4-46.3) fL RDW Coeff of Sharda 17.7 H (11.5-14.5) % Plt Count 277 (130-400) K/uL MPV 8.9 L (9.4-12.4) fL Immature Gran % (Auto) 1.0 % Neut % (Auto) 86.7 % Lymph % (Auto) 5.2 % Love % (Auto) 5.9 % Eos % (Auto) 1.0 % Baso % (Auto) 0.2 % Neut # (Auto) 9.05 H (1.40-6.50) K/uL Lymph # (Auto) 0.54 L (1.20-3.40) K/uL Love # (Auto) 0.62 H (0.11-0.59) K/uL Eos # (Auto) 0.10 (0.00-0.50) K/uL Baso # (Auto) 0.02 (0.00-0.20) K/uL Immature Gran # (Auto) 0.10 (0.01-0.20) K/uL Sodium 133 L (136-145) mmol/L Potassium 3.5 (3.5-5.1) mmol/L Chloride 98 (98-107) mmol/L Carbon Dioxide 26 (21-32) mmol/L Anion Gap 9 (3-11) BUN 20 (6-23) mg/dl Creatinine 0.64 (0.6-1.4) mg/dl Est Cr Clr Drug Dosing 89.9 ml/min eGFR 92.77 BUN/Creatinine Ratio 31.3 H (10-20) Glucose 90 (70-99(Fasting)) mg/dl Calcium 8.5 L (8.6-10.3) mg/dl Magnesium 1.9 (1.7-2.4) mg/dl Total Bilirubin 0.7 (0.2-1.0) mg/dl AST 16 (13-39) U/L ALT 22 (7-52) U/L Alkaline Phosphatase 97 (34-104) U/L Troponin I High Sens 48.0 H 36.7 H D (0-20) pg/ml Total Protein 6.4 (6.0-8.3) gm/dl Albumin 2.9 L (3.4-5.0) gm/dl Globulin 3.5 (2.5-4.0) gm/dl Albumin/Globulin Ratio 0.8 L (0.9-2) TSH 4.465 (0.300-4.500) uIu/ml Blood Type O Positive Antibody Screen NEGATIVE Administered Medications Sodium Chloride (Nss) 1,000 mls @ 125 mls/hr IV .Q8H HUNG Stop: 08/06/24 17:29 Last Admin: 08/05/24 17:22 Dose: 125 mls/hr Documented By: KALEB Discontinued Medications Sodium Chloride (Nss) 500 mls @ 999 mls/hr IV .Q31M ONE Stop: 08/05/24 17:47 Last Infusion: 08/05/24 18:04 Dose: Infused Documented By: Admin: 08/05/24 17:23 Dose: 999 mls/hr Documented By: KALEB Imaging Data Radiologist's Impression: Chest X-Ray 08/05/24 16:08 EXAM: Radiograph of the Chest 1 View INDICATION: Weakness TECHNIQUE: Frontal view of the chest. COMPARISON: 07/24/2024 FINDINGS: Lungs and pleural spaces: Stable symmetrical air trapping with minimal scattered parenchymal scarring. No consolidation or pulmonary edema. No pleural effusion or pneumothorax. Heart: Shape and configuration within normal limits allowing for technique. Mediastinum: Normal contour. Bones/joints: Degenerative changes noted throughout the spine and both shoulders. No lytic or blastic lesions noted. Soft tissues: No abnormality noted. No radiopaque foreign body noted. Tubes, lines and devices: Stable normal shape and configuration of the cardiac shadow and intact pacing device. Upper abdomen: No abnormality noted. IMPRESSION: Stable chronic changes. No acute disease. ACT 112: N/A Electronically signed by Kati Carrington 08-05-2024 4:29 PM Discharge Plan Visit Data Chief Complaint: Illness ED Provider: Kimo Osman Discharge Problem: Generalized weakness, Elevated troponin, Diarrhea Forms Stand Alone Forms: [employer] Prescriptions Prescriptions: No Action levothyroxine 125 mcg tablet 125 mcg PO DAILYBB Rx Instructions: Last filled 12/2023. PER PT'S "DOESN'T TAKE REGULARLY". nitroglycerin 0.4 mg tablet, sublingual 1 tab Sublingual UD PRN (Reason: Chest Pain) Patient Comments: Never had to use Rx Instructions: PER PT'S "DOESN'T TAKE". albuterol sulfate 2.5 mg /3 mL (0.083 %) Solution For Nebulization 2.5 mg INHALATION QID PRN (Reason: Shortness Of Breath Or Wheezing) Rx Instructions: PER PT'S "DOESN'T TAKE". clopidogrel 75 mg tablet 75 mg PO QAM Rx Instructions: PER PT'S "DOESN'T TAKE". Eliquis 5 mg tablet 5 mg PO AMHS polyethylene glycol 3350 [Miralax] 17 gram powder in packet 17 g PO DAILY PRN (Reason: Constipation) Rx Instructions: PER PT'S "DOESN'T TAKE". oxycodone-acetaminophen [Percocet] 5-325 mg tablet 1 tab PO Q8H PRN (Reason: pain) Qty: 10 0RF Rx Instructions: PER PT'S "DOESN'T TAKE". triamcinolone acetonide 0.1 % cream 1 applic TOPICAL BID Rx Instructions: PER PT'S "DOESN'T TAKE". Vitron-C 65 mg iron- 125 mg Tablet,Delayed Release (Dr/Ec) 1 tab PO QAM Rx Instructions: PER PT'S "DOESN'T TAKE". sodium chloride 7 % Solution For Nebulization 4 ml NEB BIDR PRN (Reason: mucus plugging) Qty: 240 0RF Rx Instructions: PER PT'S "DOESN'T TAKE". olanzapine 2.5 mg tablet 2.5 mg PO HS Rx Instructions: ORDERED 07/22/24 FOR 16 DAYS. PER PT'S "DOESN'T TAKE". prednisone 20 mg tablet 20 mg PO DAILY Qty: 36 0RF Rx Instructions: Take 2 tabs once daily for one week, then 1.5 tabs once daily for one week, then 1 tab once daily for one week, then 0.5 tabs once daily for one week or until diarrhea subsides atorvastatin 40 mg Tablet 40 mg PO DAILY Rx Instructions: PER PT'S "DOESN'T TAKE". diphenoxylate-atropine 2.5-0.025 mg tablet 1 tab PO QID PRN (Reason: Diarrhea) potassium chloride 10 mEq Tablet Extended Release 10 meq PO DAILY Rx Instructions: PER PT'S "DOESN'T TAKE". aspirin 81 mg Tablet,Delayed Release (Dr/Ec) 81 mg PO DAILY Rx Instructions: PER PT'S "DOESN'T TAKE". tamsulosin 0.4 mg Capsule 0.4 mg PO DAILY Rx Instructions: PER PT'S "DOESN'T TAKE". paroxetine HCl [Paxil] 20 mg Tablet 20 mg PO HS Rx Instructions: PER PT'S "DOESN'T TAKE". pantoprazole 40 mg Tablet,Delayed Release (Dr/Ec) 40 mg PO DAILY Rx Instructions: PER PT'S "DOESN'T TAKE". ferrous sulfate 325 mg (65 mg iron) Tablet 325 mg PO DAILY Rx Instructions: PER PT'S "DOESN'T TAKE". mirtazapine 15 mg Tablet 15 mg PO HS Rx Instructions: PER PT'S "DOESN'T TAKE". metoprolol succinate 25 mg Tablet Extended Release 24 Hr 12.5 mg PO DAILY Rx Instructions: PER PT'S "DOESN'T TAKE". Referrals Referrals: Neto Rasheed MD [Primary Care Provider] -
[2024-08-05] MEDS: SODIUM CHLORIDE 0.9% 1,000 ML IV SCH (17:22)
[2024-08-05] MEDS: SODIUM CHLORIDE 0.9% 500 ML IV ONE (17:23)
--- OUTSIDE RECORDS SUMMARY | 2024-08-05 22:12 | External Medical Summary | Summary of Care ---
Author Name Unknown Organization [facility] Address [address] [place] [address] Phone [phone] Care Team Providers Care Heavy Duty Diesel Mechanic Name Role Phone Neto Rasheed MD Primary Care Provider + Encounter Details Date Type Department Care Team (Late st Contact Info) Description 07/31/2024 Result Scan Unspecified Department True Prasad, DO [address] [place], [place] [id number] <No scans attached> Allergies No known active allergiesdocumented as of this encounter (statuses as of 07/31/2024) Medications Misc. Devices MISC Cool mist humidification [...] PRN, Constipation, Informant: Patient, Reported on 06/21/2024 [facility] [place]. Devices MISC Size 10 shiley laryngectomy tube 2 Each 5 08/09/19 20 Active Fluorouracil 5 % External Cream (Efudex)Indicati ons:Actinic keratosis Apply to rough spots on the scalp nightly x 2-4 weeks. 40 g 05/18/19 21 Active Additional Information Patient not taking.Reported on 06/21/2024 [facility] [place]. Devices one ultra voice [...] BREAKFAST OR OTHER MEDICATION 90 Tablet 1 04/29/20 24 Active Clopidogrel Bisulfate 75 MG Oral [...] Delayed Release (Protonix) 1 Tablet. 04/15/20 Active Potassium Chloride ER 10 MEQ Oral Tablet Extended Release Take 1 Tablet by mouth in the morning and 1 Tablet before bedtime. 06/01/19 Active Nitroglycerin 0.4 MG Sublingual Tablet Sublingual (Nitrostat)Indic ations:Chronic coronary artery disease Place 1 Tablet under the tongue every 5 minutes as needed for Pain, Chest. Max dose 3 tablets in 15 minutes 25 Tablet 3 06/21/19 Active predniSONE 20 MG Oral Tablet (Deltasone) Take 1 Tablet by mouth in the morning. Taper per oncology . 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 Overview (03/27/2021): 2020 Stage 3a chronic kidney disease 03/05/2020 01/08/2023 Overview: Per CKD protocol - Per CKD protocol Hematoma of neck 12/12/2019 07/01/2022 Pre-diabetes 08/31/2019 09/08/2019 Kidney disease, chronic, sta ge III (GFR 30-59 ml/min) 08/08/2019 03/08/2020 Overview: Per CKD protocol Head and neck cancer 05/09/2019 08/ 022 Post-nasal drip 04/21/2018 02/08/2019 Overview (02/08/2019): [...] as of this encounter (statuses as of 07/31/2024) Immunizations Name Administration Dates Next Due COVID-19 mRNA, LNP-s, No Pre serve, 2-Dose Series ([place]) 03/29/2021,07/06/2020,06/15/2020 COVID-19, LNP-s, No Preserve , Evert-sucrose, [...] 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 (14 years old or [...] Noemi Mascorro RN documented in this encounter Plan of Treatment Upcoming Encounters Date Type Department Care Team (Late st Contact Info) Description 08/01/2024 11:00 AM EDT Office Visit General Internal Medicine [facility] [address] [place] [address] Neto Rasheed MD [address] [facility] [place] [id number] 11/30/2024 11:00 AM EDT Cardiac Studies Cardiac Studies, [facility] [address] [place] [id number] 03/16/2025 3:00 PM EST Office Visit General Internal Medicine [facility] [address] [place] [address] Neto Rasheed MD [address] [facility] [place] [address] Health Maintenance Due Date Last Done Comments Depression Monitoring 1952 Alpha-1 Antitrypsin 1957 Zoster Vaccines (1 of 2) 1959 Adult Wellness Visit 11/07/2014 11/07/2013 COVID-19 Vaccine ( season) 2023 08/29/2021, 03/29/2021, 07/06/2020, Additional history exists DTap/Tdap Vaccines (6 - [...] this encounter Medical Devices Implanted Type Area Paraprofessional Aide Device Identifier Shelf Expiration Date Model / Serial / Lot Woundmatrix Fenstr [id number] (150 Units) - [id number] - [id number] Implanted:Qty: 150 on 04/18/2019 by Hayden Fleming MD [place] [facility] [place] Left: Leg Upper [employer] [id number] 01/25/2020 [id number] / [id number] / [id number] Indwelling Voice Prosthesis Implanted:Qty: 1 on 10/26/2019 by Hayden Fleming MD [place] [facility] [place] N/A: Throat 08/16/2021 1616-[id number] / / [id number] Description:INHEALTH TECHNOL OGIES REF : IN 1616-NS (HECTOR-ALONZO) CLASSIC INDWELLING VOICE PROSTHESIS WITH INSERTION / CLEANING ACCESSORIES documented as of this encounter Procedures Procedure Name Priority Date/Time Associated Diagnosis Comments CARDIOLOGY SCANNED RESULT 07/31/2024 documented in this encounter Results * CARDIOLOGY SCANNED RESULT (07/31/2024) 07/31/2024 us True J Shanice DO OTHER Final Result documented in this encounter Advance Directives Documents on File Type Date Recorded Patient Warehouse Analyst Expl anation Power of Perfume Maker 09/27/2018 POWER OF A TTORNEY * Full [...] and were consensually agreed upon. Care Teams Heavy Duty Diesel Mechanic Relationship Specialty Start Date End Date Neto Rasheed MD [address] [place] [address] PCP - General Internal Medicine 02/14/21 documented as of this encounter
--- OUTSIDE RECORDS SUMMARY | 2024-08-05 22:12 | External Medical Summary | Summary of Care ---
Author Name Unknown Organization [facility] Address [address] [facility] [place] [address] Phone [phone] Care Team Providers Care Fine Arts Instructor Name Role Phone Neto Rasheed MD Primary Care Provider + Reason for Visit * Reason Onset Date Comments Hospital Follow-Up Patient prese nts for hospital follow up from [facility] for blood clot to right leg and blockage to right groin. Patient admitted on 07/24/2024 and discharged on 07/25/2024. Patient accompanied by who states patient has been getting lightheaded at times. 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 Devices MISC Cool mist humidification device 1 Each 05/02/19 20 Active Misc. Devices [facility] [place] Portable suction device 1 Each 05/02/19 20 Active Misc. Devices [facility] [place] Trach care cleaning kit 1 Each 05/02/19 Active Misc. Devices [facility] Yankauer suction tips 10 Each 5 05/02/19 20 Active Misc. Devices [facility] [place] 12Fr flexible suction catheters 10 Each 5 05/02/19 20 Active Misc. Devices [facility] [place] Inner cannulas for Shiley size 10 cuffless laryngectomy tube 10 Each 5 05/02/19 20 Active polyethylene glycol 3350 (MIRALAX) packet Take 1 Packet by mouth daily. 14 Each 05/02/19 Active Additional Information Patient taking differently:17 g OralDAILY PRN, Constipation, Informant: Patient, Reported on 08/01/2024 [facility] [place] Devices [facility] [place] Size 10 shiley laryngectomy tube 2 Each 5 08/09/19 20 Active Fluorouracil 5 % External Cream (Efudex)Indicati ons:Actinic keratosis Apply to rough spots on the scalp nightly x 2-4 weeks. 40 g 05/18/19 21 Active Additional Information Patient not taking.Reported on 08/01/2024 [facility] [place]. Devices one ultra voice [...] forearm 40 g 1 07/01/19 23 Active Additional Information Patient not taking.Reported on 08/01/2024 PARoxetine HCl 20 MG Oral Tablet (pAXil) [...] Active Additional Information Patient not taking.Reported on 08/01/2024 Albuterol Sulfate (2.5 MG/3ML) 0.083% Inhalation Nebulization [...] Active Additional Information Patient not taking.Reported on 08/01/2024 Apixaban 5 MG Oral Tablet (Eliquis) Take 1 Tablet by mouth in the morning and 1 Tablet before bedtime. 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 Not on file Not on file documented as of this encounter Last Filed Vital Signs Vital Sign Reading Time Taken Comments Blood Pressure 110/50 08/01/2024 11:05 AM EDT Pulse 72 08/01/2024 11:05 AM EDT Temperature 34.8 °C (94.6 °F) 08/01/2024 11:05 AM E DT Respiratory Rate 20 08/01/2024 11:05 AM EDT Oxygen Saturation - - Inhaled Oxygen Concentration - - Weight 72.6 kg (160 lb) 08/01/2024 11:05 AM EDT Height - - Body Mass Index 22.33 11/12/2023 12:52 PM EDT documented in this encounter Functional Status * Are you [...] Noemi Lorenzo RN documented in this encounter Progress Notes * Neto Rasheed MD - 08/01/2024 11:24 AM EDT Chief Complaint Patient presents with Hospital Follow-Up Patient presents for hospital follow up from [facility] for blood clot to right leg and blockage to rightgroin. Patient admitted on 07/24/2024 and discharged on 07/25/2024. Patient accompanied by whostates patient has been getting lightheaded at times. Hospital Follow-Up SUBJECTIVE: Clinton Locke is a 84 year old male with PMH as below who presents for follow up discharge, admitted [facility] 07/24-/ for right lower leg swelling +dvt, saw heme/onc who he sees for metastatic cancer, felt likely when stopped Eliquis for left leg port. He was continued on med, sent home. No rightleg pain, but still swollen. No cp, sob ,kuo, but intermittent lightheadiness with standing, admits eating ok, but not drinking much water. No falls. 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 Devices MISC Cool mist humidification device [...] as needed for Constipation.) 14 Each 0 Misc. Devices MISC Size 10 shiley laryngectomy tube 2 Each 5 Ipratropium-Albuterol 0.5-2.5 (3) MG/3ML Inhalation Solution (Duoneb) Inhale via nebulizer 3 mL every 6 hours as needed for Wheezing. 360 mL 5 Sodium Chloride 0.9 % Inhalation Nebulization Solution Use as directed to clean tracheostomy 3 mL 3 PARoxetine HCl 20 MG Oral Tablet (pAXil) TAKE 1 TABLET BY MOUTH EVERY DAY 90 Tablet 3 Albuterol Sulfate (2.5 MG/3ML) 0.083% Inhalation Nebulization Solution (Proventil) Inhale 1 Vial via nebulizer in the morning and 1 Vial at noon and 1 Vial in the evening and 1 Vial before bedtime. 360 mL 1 Levothyroxine Sodium 125 MCG Oral Tablet (Levoxyl) TAKE 1 TABLET BY MOUTH EVERY DAY AT LEAST 30 MINBEFORE BREAKFAST OR OTHER MEDICATION 90 Tablet 1 Clopidogrel Bisulfate 75 MG Oral Tablet (pLAVix) TAKE 1 TABLET BY MOUTH EVERY DAY 90 Tablet 1 Apixaban 5 MG Oral Tablet (Eliquis) Take 1 Tablet by mouth in the morning and 1 Tablet before bedtime. 60 Tablet 5 Pantoprazole Sodium 40 MG Oral Tablet Delayed Release (Protonix) 1 Tablet. Nitroglycerin 0.4 MG Sublingual Tablet Sublingual (Nitrostat) Place 1 Tablet under the tongue every5 minutes as needed for Pain, Chest. Max dose 3 tablets in 15 minutes 25 Tablet 3 predniSONE 20 MG Oral Tablet (Deltasone) Take 1 Tablet by mouth in the morning. Taper per oncology . Fluorouracil 5 % External Cream (Efudex) Apply to rough spots on the scalp nightly x 2-4 weeks. (Patient not taking: Reported on 08/01/2024) 40 g 0 Misc. Devices one ultra voice (Patient not taking: Reported on 06/21/2024) 1 Each 0 Fluorouracil 5 % External Cream (Efudex) apply to left forearm twice daily for 3 weeks, then treat right forearm (Patient not taking: Reported on 08/01/2024) 40 g 1 Ipratropium-Albuterol 0.5-2.5 (3) MG/3ML Inhalation Solution (Duoneb) Inhale 3 mL via nebulizer in the morning and 3 mL at noon and 3 mL in the evening and 3 mL before bedtime. (Patient not taking: Reported on 08/01/2024) 360 mL 3 Vitron-C 65-125 MG Oral Tablet (Iron-Vitamin C 65-125 mg per tab) Take 1 Tablet by mouth in the morning. (Patient not taking: Reported on 05/04/2024) Folic Acid 1 MG Oral Tablet Take 1 Tablet by mouth in the morning. (Patient not taking: Reported on08/01/2024) Potassium Chloride ER 10 MEQ Oral Tablet Extended Release Take 1 Tablet by mouth in the morning and1 Tablet before bedtime. (Patient not taking: Reported on 08/01/2024) No current facility-administered medications for this visit. Review of patient's allergies indicates: No Known Allergies Health Maintenance Due Topic Date Due Depression Monitoring Never done Alpha-1 Antitrypsin Never done Zoster Vaccines (1 of 2) Never done Adult Wellness Visit 11/07/2014 COVID-19 Vaccine () 12/27/2023 ROS: CONSTITUTIONAL: No fevers, sweats, or chills PULMONARY: No cough, sputum, or hemoptysis, No wheezing, No rales, No shortness of breath, and No recent change in breathing CARDIOVASCULAR: No chest pain, No shortness of breath, No dyspnea on exertion, and No syncope ALL OTHER SYSTEMS NEGATIVE I reviewed social, PMH, PSH, and family history and updated where needed. 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 No mold. Social Needs Financial Resource Strain: Not on file Food Insecurity: No Food Insecurity (05/09/2019) Hunger Vital Sign Worried About Running Out of Food in the Last Year: Never true Ran Out of Food in the Last Year: Never true Transportation Needs: Not on file Social Connections: Not on file Housing Stability: Not on [...] 5 yrs COLONOSCOPY, DIAGNOSTIC (RECTUM) 10/11/2014 adenomatous polyp/[facility] CORONARY ARTERIES BYPASS, TWO 1995 CABG, Vein, Two [facility] EGD, FLEXIBLE, W/BIOPSY 10/02/09 sm. hiatal hernia & path showed Barretts esophagusrepeat in 1 year ESOPHAGOSCOPY, FLEXIBLE, DIAGNOSTIC N/A 10/26/2019 ESOPHAGOSCOPY DIAGNOSTIC performed by Hayden Fleming MD at [place] [facility] ESOPHAGOSCOPY, FLEXIBLE, DIAGNOSTIC N/A 11/23/2019 ESOPHAGOSCOPY DIAGNOSTIC performed by Hayden Fleming MD at OR [facility] INSERTION OF LENS PROSTHESIS Left 05/12/2012 cataract extraction with IOL implant and LRI left eye LARYNGOSCOPY BIOPSY W/SCOPE 07/22/2012 LARYNGOSCOPY DIRECT OPERATIVE WITH MICROSCOPE performed by Erick Gilbert MD at OR [facility] LARYNGOSCOPY BIOPSY W/SCOPE N/A 06/30/2014 LARYNGOSCOPY DIRECT OPERATIVE WITH MICROSCOPE performed by Erick Gilbert MD at OR [facility] MUSCLE-SKIN FLAP, TRUNK N/A 04/18/2019 MUSCLE MYOCUTANEOUS OR FASCIOCUTANEOUS FLAP TRUNK performed by Ramakrishna Graham DO at OR [facility] OPERATIVE LARYNGOSCOPY/BIOPSY 07/10/2011 LARYNGOSCOPY DIRECT WITH BIOPSY performed by NETO JASMINE at [facility] OPERATIVE LARYNGOSCOPY/BIOPSY 11/05/2012 LARYNGOSCOPY DIRECT WITH BIOPSY performed by Erick Gilbert MD at [facility] OPER[facility]IVE LARYNGOSCOPY/BIOPSY N/A 03/07/2019 LARYNGOSCOPY DIRECT WITH BIOPSY performed by Hayden Fleming MD at OR [facility] PART REMOV LARYNX, NECK DISSECTION N/A 04/18/2019 LARYNGECTOMY SUBTOTAL SUPRAGLOTTIC WITH DISSECTION performed by Hayden Fleming MD at OR [facility] PARTIAL REMOVAL OF PHARYNX N/A 04/18/2019 LIMITED PHARYNGECTOMY performed by Hayden Fleming MD at OR [facility] RECONSTRUCTION OF THROAT Bilateral 04/18/2019 PHARYNGOPLASTY performed by Ramakrishna Graham DO at OR [facility] REMOVAL OF NECK LYMPH NODES N/A 04/18/2019 CERVICAL LYMPHADENECTOMY MODIFIED RADICAL NECK DISSECTION performed by Hayden Fleming MD at OR [facility] REMOVE EXCESS SKIN/TISSUE, FAT PAD N/A 11/23/2019 EXCISION EXCESSIVE SKIN AND SUBCUTANEOUS TISSUE SUBMENTAL performed by Hayden Fleming MD at OR [facility] REPAIR RUPTURED ROTATOR CUFF, ACUTE Right 2009 Rotator cuff repair RIGHT REPAIR WINDPIPE OPENING, SIMPLE N/A 05/21/2020 TRACHEOSTOMA REVISION SIMPLE performed by Hayden Fleming MD at OR [facility] REVISE WINDPIPE SCAR N/A 10/14/2019 REVISION TRACHEOSTOMY SCAR performed by Hayden Fleming MD at OR [facility] SKIN SPLIT GRAFT, TRUNK/ARMS/LEGS Left 04/18/2019 SPLIT GRAFT TRUNK ARM LEG 100SQ CM PLUS performed by Ramakrishna Graham DO at OR [facility] SURGERY TO INSERT SPEECH PROSTHESIS N/A 10/14/2019 CONSTRUCT TRACHEOESOPHAGEAL FISTULA SPEECH PROSTHESIS performed by Hayden Fleming MD at OR [facility] THROAT MUSCLE SURGERY N/A 01/11/2020 CRICOPHARYNGEAL MYOTOMY performed by Hayden Fleming MD at OR [facility] THROMBOENDARECTOMY W/PATCH,NECK INCISION Right 03/29/2018 [facility] Juan THROMBOENDARECTOMY W/PATCH,NECK INCISION Left 06/23/2018 [facility] Juan TRACHEAL PUNCTURE W/ ASPIRATION/INJECTION N/A 10/26/2019 TRACHEAL PUNCTURE performed by Hayden Fleming MD at OR [facility] TRACHEAL PUNCTURE W/ ASPIRATION/INJECTION N/A 11/23/2019 TRACHEAL PUNCTURE performed by Hayden Fleming MD at OR [facility] Family History Problem Relation Name Age of Onset Hypertension Mother Eye Problems Mother CRVO Glaucoma Mother Other (Natural causes) Mother age 96 Lung cancer Father Heart attack Father age 90 No Known Problems Brother Breast Cancer Sister No Known Problems Sister No Known Problems Sister Other (gout) Grandfather (Maternal) OBJECTIVE: PHYSICAL EXAM: BP 110/50 (BP Site: Left Arm, BP Position: Sitting, BP Cuff Size: Regular) | Pulse 72 | Temp (!) 94.6 °F (34.8 °C) (Tympanic) | Resp 20 | Wt 160 lb (72.6 kg) | BMI 22.33 kg/m² | BSA 1.91 m² General: alert, healthy, and no distress Head: Normocephalic, No masses, lesions, or abnormalities Eye Exam: conjunctiva are pink and non-injected, sclera clear Lungs: normal respiratory rate and rhythm Extremities: no clubbing, no cyanosis, +edema right leg no calf pain or cords, port left thigh Neuro Exam: alert with fluent speech, gait normal Psych: normal affect, no flight of ideas or tangential thought, good eye contact, no pressured speech D/Cc summary: 84 year old male with PMH significant for CAD (s/p CABG x2 1995), chronic HFpEF, moderate aortic stenosis, sick sinus syndrome (s/p dual chamber pacemaker 2017), paroxysmal A fib on Eliquis, history of TIA secondary to bilateral carotid artery stenosis (s/p right CEA 2017, left CEA 2018), HTN, HLD,hypothyroidism, depression/anxiety, COPD, iron deficiency anemia, and stage IV metastatic squamous cell cancer (initial laryngeal squamous cell carcinoma s/p radiation in 1985, s/p total laryngectomy/right subtotal thyroidectomy, tracheostomy in 2018, with metastasis in 2023) who presented to the ED with RLE swelling and was found to have a DVT. Deep vein thrombosis of right lower extremity -Venous dopper study with extensive DVT in RLE -Heme/onc consulted and recommend Eliquis at discharge Stage IV metastatic squamous cell cancer (initial laryngeal squamous cell carcinoma s/p radiation in 1985, s/p total laryngectomy/right subtotal thyroidectomy/tracheostomy in 2018, with metastasis found in 2023) -[facility] -Various challenges with chemo including IV access, diarrhea, allergic reaction per records -s/p Mediport placement on 06/24 -Ordered Prednisone PO taper for diarrhea secondary to immunotherapy per Dr Eliana HANSEN (s/p CABG x2 1995) -Continue Plavix per home dosing Chronic HFpEF -Not on home diuretics per records Sick sinus syndrome (s/p dual chamber pacemaker 2017) Paroxysmal A fib on Eliquis -Continue Eliquis per home dosing Hypertension -Not on home BP medications due to orthostatic hypotension per records Hyperlipidemia -Not on statin due to patient self discontinuation per records -Cardiology recommends atorvastatin 40mg per records Hypothyroidism -Continue levothyroxine per home dosing COPD -Continue albuterol inhaler PRN per home dosing Iron deficiency anemia -Continue ferrous sulfate per home dosing 07/25/24 oncology:L DVT not due to Eliquis failure since he has been off Eliquis since Mediport was placed on 06/24/2024. Patient can restart Eliquis. Thank you for this consult. Please feel free to call if you have any further questions. 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) (J44.9) COPD, group B, by GOLD 2017 classification ([facility]) PLAN: Hospital discharge follow-up (Primary) - DISCH MED RECON CUR MED LIS As below Acute deep vein thrombosis (DVT) of other specified vein of right lower extremity (HCC) Back on Eliquis Continue, discussed pe signs/symptoms to see care if develops Dizzy Hydration discussed Follow Laryngeal cancer (HCC) Sees oncology 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 Neto Rasheed MD documented in this encounter Nursing Notes * Andres Rivera RN - 08/01/2024 11:08 AM EDT Chief Complaint Patient presents with Hospital Follow-Up Patient presents for hospital follow up from [facility] for blood clot to right leg and blockage to rightgroin. Patient admitted on 07/24/2024 and discharged on 07/25/2024. Patient accompanied by whostates patient has been getting lightheaded at times. documented in this encounter Plan of Treatment Upcoming Encounters Date Type Department Care Team (Late st Contact Info) Description 11/30/2024 11:00 AM EDT Cardiac Studies Cardiac Studies, [facility] [address] [place] [phone] 03/16/2025 3:00 PM EST Office Visit General Internal Medicine [facility] [address] [place] [address] Neto Rasheed MD [address] [facility] [place] [address] Health Maintenance Due Date Last Done Comments [...] this encounter Medical Devices Implanted Type Area Precision Lens Polisher Device Identifier Shelf Expiration Date Model / Serial / Lot Woundmatrix Fenstr [id number] (150 Units) - [id number] - [id number] Implanted:Qty: 150 on 04/18/2019 by Hayden Fleming MD at OR [facility] Left: Leg Upper [employer] [id number] 01/25/2020 [id number] / [id number] / [id number] Indwelling Voice Prosthesis Implanted:Qty: 1 on 10/26/2019 by Hayden Fleming MD at OR [facility] N/A: Throat 08/16/2021 1616-[id number] / / [id number] Description:INHEALTH TECHNOL OGIES REF : IN 1616-NS ([place]) CLASSIC INDWELLING VOICE PROSTHESIS WITH INSERTION / CLEANING ACCESSORIES documented as of this encounter Visit Diagnoses Diagnosis Hospital discharge follow-up- Primary Other follow-up examination Acute deep vein thrombosis (DVT) of other specified vein of right lower extremity (HCC) Dizzy Dizziness and giddiness Laryngeal cancer (HCC) Malignant neoplasm of larynx, unspecified site 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 Care Teams Fine Arts Instructor Relationship Specialty Start Date End Date Neto Rasheed MD [address] [place] [address] PCP - General Internal Medicine 02/14/21 documented as of this encounter"
--- NOTE | 2024-08-05 23:47 | History & Physical Report ---
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 Patient says had several episodes of diarrhea today. His blood pressure was 90/50 at home. And he was feeling weak. Currently in the ER he could not give stool sample yet. Denies any recent antibiotics. Denies any outside food. He is speaking but no voice. Able to understand while he is trying to speak. Denies any headache. Denies any blurred vision. No runny nose or sore throat. No difficulty swallowing. Denies chest pain. Denies shortness of breath. Afebrile. No abdominal pain. No nausea or vomiting. Micturating okay. Currently hemodynamics are okay. Diarrhea Hypotension Weakness Will follow stool studies, came back unremarkable IV fluids Blood pressure improved with the fluids Will monitor med/telemetry Elevated troponin Initial troponin 48 and repeat is 36 asymptomatic Mostly demand ischemia Will follow serial enzymes Acute UTI started on cefepime will follow cultures. 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 Received radiation treatment. Status post total laryngectomy right neck dissection, subtotal thyroidectomy, status post creation of tracheal stoma Currently On Keytruda q 3weeks. last dose 2 weeks ago Monitor for mucous plugging of tracheal stoma Last admission was started on Prednisone taper for diarrheas from immunotherapy. Patient says currently taking prednisone 20mg daily and says want to stop it. Oncology follow-up Sick sinus syndrome Status post pacemaker CAD Status post CABG 1995 On Plavix and statin and beta-liliana To give beta-liliana with holding parameters Paroxysmal atrial fibrillation On Eliquis On metoprolol to be given with holding parameters Peripheral vascular disease Bilateral carotid endarterectomy On Plavix and statin Moderate aortic stenosis Heart failure with preserved ejection fraction Getting fluids Monitor volume overload Anemia Hemoglobin 8.7 Seems around baseline Will follow DVT prophylaxis On Eliquis Disposition Medical floor Full code. 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 Patient says had several episodes of diarrhea today. His blood pressure was 90/50 at home. And he was feeling weak. Currently in the ER he could not give stool sample yet. Denies any recent antibiotics. Denies any outside food. He is speaking but no voice. Able to understand while he is trying to speak. Denies any headache. Denies any blurred vision. No runny nose or sore throat. No difficulty swallowing. Denies chest pain. Denies shortness of breath. Afebrile. No abdominal pain. No nausea or vomiting. Micturating okay. Currently hemodynamics are okay. Past medical history. As mentioned above Past surgical history. Colonoscopy with biopsy. CABG. EGD with biopsy. Esophagoscopy. Cataract extraction. Laryngoscopy with biopsy. Laryngectomy subtotal supraglottic with dissection. Laryngectomy. Laryngoplasty. Cervical lymphadenectomy modified radical neck dissection. Removal of excess skin and subcutaneous tissue. Right rotator cuff repair. Tracheostoma revision. Revision of tracheostomy scar. Construct Tramquel esophageal fistula. Cricopharyngeal myotomy. Tracheal puncture. Social history. . Quit smoking 1984. Smoked 2 pack a day for 30 years. Alcohol occasional. No drug use. Family history. Mother had glaucoma. Eye problems. Hypertension. Father had heart attack. Lung cancer. Sister had breast cancer. Allergies Allergy/AdvReac Type Severity Reaction Status Date / Time rosuvastatin [From Crestor] Allergy Unknown HAPPENED A Verified 08/05/24 17:41 LONG TIME AGO. Home Medications Medication Instructions Recorded Confirmed Type levothyroxine 125 mcg tablet 125 mcg PO DAILYBB 03/25/18 08/05/24 History nitroglycerin 0.4 mg sublingual 1 tab sublingual UD PRN Chest Pain 03/25/18 08/05/24 History tablet clopidogrel 75 mg tablet 75 mg PO QAM 06/03/18 08/05/24 History albuterol sulfate 2.5 mg/3 mL 2.5 mg inhalation QID PRN 08/19/19 08/05/24 History (0.083 %) solution for nebulization Shortness Of Breath Or Wheezing polyethylene glycol 3350 17 gram 17 g PO DAILY PRN Constipation 11/02/20 08/05/24 History oral powder packet (Miralax) apixaban 5 mg tablet (Eliquis) 5 mg PO AMHS 09/13/21 08/05/24 History iron,carbonyl 65 mg-vitamin C 125 1 tab PO QAM 03/31/24 08/05/24 History mg tablet,delayed release (Vitron-C) triamcinolone acetonide 0.1 % 1 applic topical BID 03/31/24 08/05/24 History topical cream sodium chloride 7 % for 4 ml NEB BIDR PRN mucus plugging 04/02/24 08/05/24 Rx nebulization #240 mL oxycodone-acetaminophen 5 mg-325 1 tab PO Q8H PRN pain #10 tabs 06/24/24 08/05/24 Rx mg tablet (Percocet) olanzapine 2.5 mg tablet 2.5 mg PO HS 07/24/24 08/05/24 History prednisone 20 mg tablet 20 mg PO DAILY 0 days #36 tabs 07/25/24 08/05/24 Rx atorvastatin 40 mg tablet 40 mg PO DAILY 08/05/24 08/05/24 History diphenoxylate-atropine 2.5 1 tab PO QID PRN Diarrhea 08/05/24 08/05/24 History mg-0.025 mg tablet ferrous sulfate 325 mg (65 mg 325 mg PO DAILY 08/05/24 08/05/24 History iron) tablet metoprolol succinate 25 mg 12.5 mg PO DAILY 08/05/24 08/05/24 History tablet,extended release 24 hr mirtazapine 15 mg tablet 15 mg PO HS 08/05/24 08/05/24 History pantoprazole 40 mg tablet,delayed 40 mg PO DAILY 08/05/24 08/05/24 History release paroxetine HCl 20 mg tablet (Paxil) 20 mg PO HS 08/05/24 08/05/24 History potassium chloride 10 mEq 10 meq PO DAILY 08/05/24 08/05/24 History tablet,extended release tamsulosin 0.4 mg capsule 0.4 mg PO DAILY 08/05/24 08/05/24 History Past Med/Surg History Problem List (Updated 08/05/24 @ 17:21 by Kimo Osman MD) Diarrhea (Acute) Elevated troponin (Acute) Generalized weakness (Acute) 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 Iron deficiency anemia (HFpEF) heart failure with preserved ejection fraction History of atrial fibrillation (Acute) Right leg swelling (Acute) Deep vein thrombosis (DVT) of right lower extremity (Acute) S/P vascular surgery Pressure ulcer, buttock Mucus plugging of bronchi (Acute) Mucus plug in respiratory tract (Acute) Leukocytosis (Acute) Depression Hypothyroidism (acquired) History of coronary artery disease History of atrial fibrillation Respiratory distress PVD (peripheral vascular disease) Abnormal computed tomography of abdomen and pelvis GI bleed Syncope Melena (Acute) Hematemesis (Acute) Elevated troponin (Acute) Elevated troponin 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) Anemia (Acute) Tracheostomy in place (Acute) Leukocytosis (Acute) Laryngeal cancer (Acute) Cellulitis (Acute) 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 (Acute) Severe sepsis Bacteremia due to Enterococcus (Acute) Sepsis Aspiration pneumonia (Acute) Aspiration pneumonia (Acute) Acute dyspnea (Acute) History of laryngectomy Aspiration pneumonia Multifocal pneumonia (Acute) Tracheostomy in place (Acute) Tracheobronchitis Hypoxia (Acute) SSS (sick sinus syndrome) (Chronic) History of CVA (cerebrovascular accident) (Chronic) February 2018, no deficits Tracheostomy in place (Acute) COPD (chronic obstructive pulmonary disease) Acute hypoxemic respiratory failure Peripheral eosinophilia Elevated troponin (Acute) Stenosis of left internal carotid artery History of cataract surgery (Chronic) H/O repair of right rotator cuff (Chronic) Anxiety (Chronic) 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 Symptoms were resolving by the time the patient arrived in the ED. 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 on CPAP no longer on CPAP post tracheostomy Surgical History Hx of laryngectomy (~1999) History of bronchoscopy History of tonsillectomy History of carotid endarterectomy RIGHT (MARCH 2018) History of cataract extraction with lens replacement cataract extraction with IOL implant and LRI left eye - 05/02/12 History of colonoscopy with polypectomy History of rotator cuff surgery Right - 2009 History of coronary artery bypass graft X2 VESSEL 1995 -- [facility] Family History Mother Essential hypertension Stroke Sister Cancer Breast cancer Daughter Cancer Colon cancer Social History Smoking Status: Former smoker Tobacco Type: Cigarettes Age Quit Using Tobacco: 55; packs per day: 2; Second Hand Exposure: No; Do You Dip or Chew Tobacco: No; Tobacco Cessation Education Requested by Patient: No Hx Alcohol Use: No Hx Substance Use: No Preferred Language: Icelandic Communication Ability: Impaired Communication Ability Comment: write answers to questions, unable to talk Visual Impairment: No Limitations Hearing Ability: Normal Child Daycare Worker Required: No Beliefs That Will Affect Care: None marital status: Current Living Situation: Spouse Current Living Situation Comment: home with spouse current occupational status: retired How many Children do You have: 2 How many Children do You have Comment: Son can help Other Information That Helps Us Care for You: No other: Home health nursing twice per week Feels Safe at Home: Yes Safety Concerns: Feels Safe At This Time Diet: regular during the past year weight has: decreased > 10 lbs Physical Activity Frequency: Does not Exercise Assistive Devices: Walker Review of Systems Review of Systems: All systems reviewed & are unremarkable except as noted in HPI & below Physical Exam Physical Exam: General- Not in distress Head- atraumatic Eyes- PERRL. ENT- oropharynx clear Neck- supple, tracheal stoma seen Lungs- clear to auscultation no wheezing or crackles Heart- regular rate and rhythm; no murmur, no gallop. Abdomen- normal bowel sounds, soft, nontender, no distension Extremities- Right lower extremity edematous, no erythema seen Neuro- alert, oriented; PERRL, no facial palsy; moves extremities Results & Data Results & Data Vital Signs (Past 12 Hours) Vital Signs Temp Pulse Pulse Resp BP BP Pulse Ox 08/05/24 22:00 60 20 102/41 L 94 08/05/24 21:00 62 22 115/78 98 08/05/24 20:44 97 08/05/24 20:30 72 22 124/56 L 97 08/05/24 20:00 75 20 127/61 97 08/05/24 19:43 74 08/05/24 19:30 62 18 111/55 L 98 08/05/24 19:00 70 22 120/50 L 97 08/05/24 16:00 68 08/05/24 15:40 36.7 C 78 22 123/65 96 O2 Del Method 08/05/24 22:00 Room Air 08/05/24 21:00 Room Air 08/05/24 20:44 Room Air 08/05/24 20:30 Room Air 08/05/24 20:00 Room Air 08/05/24 19:43 08/05/24 19:30 Room Air 08/05/24 19:00 Room Air 08/05/24 16:00 08/05/24 15:40 Room Air Diagnostic Findings Laboratory Results WBC 10.43 K/ul (4.8-10.8) 08/05/24 15:50 RBC 3.15 M/uL (4.70-6.10) L 08/05/24 15:50 Hgb 8.7 g/dl (14.0-18.0) L 08/05/24 15:50 Hct 28.2 % (42.0-52.0) L 08/05/24 15:50 MCV 89.5 fL (80.0-100.0) 08/05/24 15:50 MCH 27.6 pg (25.0-34.0) 08/05/24 15:50 MCHC 30.9 g/dL (32.0-36.0) L 08/05/24 15:50 RDW Std Deviation 57.3 fL (36.4-46.3) H 08/05/24 15:50 RDW Coeff of Sharda 17.7 % (11.5-14.5) H 08/05/24 15:50 Plt Count 277 K/uL (130-400) 08/05/24 15:50 MPV 8.9 fL (9.4-12.4) L 08/05/24 15:50 Immature Gran % (Auto) 1.0 % 08/05/24 15:50 Neut % (Auto) 86.7 % 08/05/24 15:50 Lymph % (Auto) 5.2 % 08/05/24 15:50 [place] % (Auto) 5.9 % 08/05/24 15:50 Eos % (Auto) 1.0 % 08/05/24 15:50 Baso % (Auto) 0.2 % 08/05/24 15:50 Neut # (Auto) 9.05 K/uL (1.40-6.50) H 08/05/24 15:50 Lymph # (Auto) 0.54 K/uL (1.20-3.40) L 08/05/24 15:50 [place] # (Auto) 0.62 K/uL (0.11-0.59) H 08/05/24 15:50 Eos # (Auto) 0.10 K/uL (0.00-0.50) 08/05/24 15:50 Baso # (Auto) 0.02 K/uL (0.00-0.20) 08/05/24 15:50 Immature Gran # (Auto) 0.10 K/uL (0.01-0.20) 08/05/24 15:50 Sodium 133 mmol/L (136-145) L 08/05/24 15:50 Potassium 3.5 mmol/L (3.5-5.1) 08/05/24 15:50 Chloride 98 mmol/L (98-107) 08/05/24 15:50 Carbon Dioxide 26 mmol/L (21-32) 08/05/24 15:50 Anion Gap 9 (3-11) 08/05/24 15:50 BUN 20 mg/dl (6-23) 08/05/24 15:50 Creatinine 0.64 mg/dl (0.6-1.4) 08/05/24 15:50 Est Cr Clr Drug Dosing 89.9 ml/min 08/05/24 15:50 eGFR 92.77 08/05/24 15:50 BUN/Creatinine Ratio 31.3 (10-20) H 08/05/24 15:50 Glucose 90 mg/dl (70-99(Fasting)) 08/05/24 15:50 Calcium 8.5 mg/dl (8.6-10.3) L 08/05/24 15:50 Magnesium 1.9 mg/dl (1.7-2.4) 08/05/24 15:50 Total Bilirubin 0.7 mg/dl (0.2-1.0) 08/05/24 15:50 AST 16 U/L (13-39) 08/05/24 15:50 ALT 22 U/L (7-52) 08/05/24 15:50 Alkaline Phosphatase 97 U/L (34-104) 08/05/24 15:50 Troponin I High Sens 36.7 pg/ml (0-20) H D 08/05/24 18:14 Total Protein 6.4 gm/dl (6.0-8.3) 08/05/24 15:50 Albumin 2.9 gm/dl (3.4-5.0) L 08/05/24 15:50 Globulin 3.5 gm/dl (2.5-4.0) 08/05/24 15:50 Albumin/Globulin Ratio 0.8 (0.9-2) L 08/05/24 15:50 TSH 4.465 uIu/ml (0.300-4.500) 08/05/24 15:50 Blood Type O Positive 08/05/24 17:00 Antibody Screen NEGATIVE 08/05/24 17:00 Impressions Chest X-Ray 08/05/24 16:08 EXAM: Radiograph of the Chest 1 View INDICATION: Weakness TECHNIQUE: Frontal view of the chest. COMPARISON: 07/24/2024 FINDINGS: Lungs and pleural spaces: Stable symmetrical air trapping with minimal scattered parenchymal scarring. No consolidation or pulmonary edema. No pleural effusion or pneumothorax. Heart: Shape and configuration within normal limits allowing for technique. Mediastinum: Normal contour. Bones/joints: Degenerative changes noted throughout the spine and both shoulders. No lytic or blastic lesions noted. Soft tissues: No abnormality noted. No radiopaque foreign body noted. Tubes, lines and devices: Stable normal shape and configuration of the cardiac shadow and intact pacing device. Upper abdomen: No abnormality noted. IMPRESSION: Stable chronic changes. No acute disease. ACT 112: N/A Electronically signed by Kati Carrington 08-05-2024 4:29 PM ECG Additional Comments: ECG. Atrial paced rhythm with rate of 62. Code Status & VTE Plan VTE Prophylaxis Plan VTE Prophylaxis will be ordered: Yes
[2024-08-06] MEDS: APIXABAN 5 MG TABLET PO STA (00:31)
[2024-08-06] MEDS ORDERED: ACETAMINOPHEN 325 MG TAB PO PRN (01:44)
[2024-08-06] MEDS ORDERED: NITROGLYCERIN SL 0.4 MG/TAB TAB SL PRN (01:44)
[2024-08-06] MEDS ORDERED: SODIUM CHLOR 7% 4 ML NEB NEB PRN (01:44)
[2024-08-06] MEDS ORDERED: ALBUTEROL 0.083% NEBU SOLN 3 ML VIAL INH PRN (01:44)
[2024-08-06] MEDS: LACTATED RINGER'S 1,000 ML IV SCH (02:29)
[2024-08-06 03:51] LABS: Adenovirus F 40/41 PCR Not Detected (NotDetected); Astrovirus PCR Not Detected (NotDetected); Campylobacter PCR Not Detected (NotDetected); Cryptosporidium PCR Not Detected (NotDetected); Cyclospora cayetanensis PCR Not Detected (NotDetected); Entamoeba histolytica PCR Not Detected (NotDetected); Enteroaggregative E.coli(EAEC) Not Detected (NotDetected); Enteropathogenic E.coli (EPEC) Not Detected (NotDetected); Enterotoxigenic E.coli (ETEC) Not Detected (NotDetected); Giardia lamblia PCR Not Detected (NotDetected); Norovirus GI/GII PCR Not Detected (NotDetected); Plesiomonas shigelloides PCR Not Detected (NotDetected); Rotavirus A PCR Not Detected (NotDetected); Salmonella PCR Not Detected (NotDetected); Sapovirus PCR Not Detected (NotDetected); Shiga-like Toxin E.coli (STEC) Not Detected (NotDetected); Shigella/Enteroinvasive E.coli Not Detected (NotDetected); Vibrio cholerae PCR Not Detected (NotDetected); Vibrio species PCR Not Detected (NotDetected); Yersinia enterocolitica PCR Not Detected (NotDetected)
[2024-08-06 04:34] LABS: Appearance Urine Clear (Clear); Bacteria Urine Automated 4+ (None Seen); Bilirubin Urine Negative (Negative); Blood Urine Trace (Negative); Cast Urine Automated 0-2 /lpf (0-2); Color Urine Yellow; Epithelial Cell Urine Auto 0-2 /hpf (0-2); Glucose Urine UA Negative (Negative); Ketones Urine Negative (Negative); Leukocyte Esterase Urine 2+ (Negative); Nitrite Urine Positive (Negative); Protein Urine 1+ (Negative); RBC Urine Automated 0-2 /hpf (0-2); Specific Gravity Urine 1.022 (1.000-1.030); Urobilinogen Urine Negative (Negative); WBC Urine Automated 21-50 /hpf (0-5); pH Urine 5.5 (4.5-7.5)
[2024-08-06] MEDS: LEVOTHYROXINE SODIUM 125 MCG TABLET PO SCH (05:26)
[2024-08-06 06:06] LABS: Basophils # (auto) 0.01 K/uL (0.00-0.20); Basophils % (auto) 0.1 %; Eosinophils # (auto) 0.15 K/uL (0.00-0.50); Eosinophils % (auto) 1.7 %; Hematocrit (blood only) 21.9 % (42.0-52.0); Immature Granulocytes # (auto) 0.07 K/uL (0.01-0.20); Immature Granulocytes % (auto) 0.8 %; Lymphocytes # (auto) 0.43 K/uL (1.20-3.40); Lymphocytes % (auto) 4.7 %; Mean Corpuscular Hemoglobin 28.3 pg (25.0-34.0); Mean Corpuscular Volume 88.7 fL (80.0-100.0); Mean Platelet Volume 9.1 fL (9.4-12.4); Monocytes # (auto) 0.56 K/uL (0.11-0.59); Monocytes % (auto) 6.2 %; Neutrophils # (auto) 7.86 K/uL (1.40-6.50); Neutrophils % (auto) 86.5 %; Platelet Count 236 K/uL (130-400); RDW Coefficient of Variation 17.8 % (11.5-14.5); RDW Standard Deviation 57.2 fL (36.4-46.3); Red Blood Count 2.47 M/uL (4.70-6.10); White Blood Count 9.08 K/ul (4.8-10.8)
[2024-08-06 06:12] LABS: BUN Creatinine Ratio 33.3 (10-20); Calcium 7.4 mg/dl (8.6-10.3); Creatinine Clr Calc Pharmacy 112.8 ml/min; Magnesium 1.7 mg/dl (1.7-2.4); Phosphorus 2.9 mg/dl (2.5-4.9); Potassium 3.3 mmol/L (3.5-5.1)
[2024-08-06 06:46] LABS: RBC Morphology Unremarkable
[2024-08-06] MEDS: POTASSIUM CHLORIDE 10 MEQ TABCR PO SCH (08:23)
[2024-08-06] MEDS: POTASSIUM CHLORIDE CRTAB 20 MEQ TABCR PO STA (08:23)
[2024-08-06] MEDS: TRIAMCINOLONE ACET 0.1% CR 15 GM TUBE TOP SCH (08:24)
[2024-08-06] MEDS: MAGNESIUM SULFATE / D5W 1 GM/100 ML BAG IV ONE (08:25)
[2024-08-06] MEDS: FERROUS SULFATE 325 MG TAB PO SCH ×2 (08:25→08:27)
[2024-08-06] MEDS: TAMSULOSIN HCL 0.4 MG CAP PO SCH (08:25)
[2024-08-06] MEDS: PANTOprazole 40 MG TAB PO SCH (08:26)
[2024-08-06] MEDS: METOPROLOL SUCC 25MG EXT REL TAB PO SCH (08:26)
[2024-08-06] MEDS: CLOPIDOGREL BISULFATE 75 MG TAB PO SCH (08:26)
[2024-08-06] MEDS: ASCORBIC ACID 500 MG TAB PO SCH (08:26)
[2024-08-06] MEDS: predniSONE 20 MG TAB PO SCH (08:27)
[2024-08-06] MEDS: ATORVASTATIN 40 MG TAB PO SCH (08:27)
[2024-08-06] MEDS: APIXABAN 5 MG TABLET PO SCH (08:27)
[2024-08-06] MEDS: CEFEPIME 2000MG 2,000 MG/20 ML SYR IV SCH (08:29)
[2024-08-06] MEDS ORDERED: NON-FORMULARY MEDICATION (Iron,Carbonyl-Vitamin C [Vitron-C] 65 mg iron- 125 mg Tablet,Del PO SCH (09:00)
[2024-08-06] MEDS: OPTIRAY 320 100ml IV ONE (09:10)
--- NOTE | 2024-08-06 09:45 | CT Scan Report ---
CT abdomen pelvis wo/w con CLINICAL HISTORY: r/o immunotherapy colitis COMPARISON STUDY: 04/13/2024 FINDINGS: There are trace bilateral pleural effusions with mild adjacent dependent lung base atelecta sis, right greater than left. There is a small hiatal hernia. ABDOMEN: There are gallstones without evidence of acute cholecystitis. Liver, spleen, pancreas, and a drenal glands are unremarkable. There are a few stable cysts at the kidneys, largest at the left kidn ey measures 4 cm. There are scattered atherosclerotic calcifications. Stable mild lobulation of the p roximal abdominal aorta. No abdominal aortic aneurysm otherwise. Pelvis: Prostate is minimally enlarged. Urinary bladder is mildly distended. Rectum is distended with stool. Otherwise there is moderate retained stool. There is mildly increased enhancement of the smal l bowel, normal variation versus mild enteritis. No bowel inflammation or obstruction seen otherwise. No free fluid, free air, or abscess. Heterogeneously enhancing right inguinal mass measures 6 cm greatest axial dimension, increased in si ze. The anterior far right pelvic mass measures 7 cm greatest axial dimension, decreased in size comp ared with 12 cm prior. There is enlarged necrotic appearing adenopathy in the right iliac and right inguinal regions measuring up to 3 cm at a right inguinal lymph node, increased in size. Osseous structures: There is mild diffuse lumbar degenerative disc disease and mild degenerative lantigua ges at the hips. Stable bone island at the right iliac bone. IMPRESSION: 1. Rectum is distended with stool. There is moderate retained stool otherwise. There is mildly promin ent wall enhancement at the small bowel, normal variation versus mild enteritis. No other bowel infla mmation or obstruction seen. 2. Increased size of right inguinal mass and right inguinal adjacent lymph node. Decreased size of th e far lateral right anterior pelvic mass. 3. Otherwise as described. ACT 112: Negative or not required by law. Electronically signed by: Stan Amaro M.D. 08/06/2024 9:43 AM
--- NOTE | 2024-08-06 12:30 | Electrocardiogram Report ---
Test Reason : Blood Pressure : */* mmHG Vent. Rate : 62 BPM Atrial Rate : 62 BPM P-R Int : 174 ms QRS Dur : 98 ms QT Int : 430 ms P-R-T Axes : 91 79 76 degrees QTcB Int : 436 ms Atrial-paced rhythm Minimal voltage criteria for LVH, may be normal variant Abnormal ECG When compared with ECG of 24-Jul-2024 20:59, Electronic atrial pacemaker has replaced Junctional rhythm Criteria for Lateral infarct are no longer Present Nonspecific T wave abnormality no longer evident in Lateral leads Confirmed by Michael Grey ([id number]) on 08/06/2024 12:30:41 PM Referred By: REFERRED SELF Confirmed By: Michael Grey
--- NOTE | 2024-08-06 12:35 | Electrocardiogram Report ---
Test Reason : Blood Pressure : */* mmHG Vent. Rate : 68 BPM Atrial Rate : 61 BPM P-R Int : 190 ms QRS Dur : 96 ms QT Int : 430 ms P-R-T Axes : * 75 44 degrees QTcB Int : 457 ms Atrial-paced rhythm Abnormal ECG When compared with ECG of 05-Aug-2024 17:00, (unconfirmed) No significant change was found Confirmed by Michael Grey ([id number]) on 08/06/2024 12:35:26 PM Referred By: REFERRED SELF Confirmed By: Michael Grey
[2024-08-06] MEDS: bisacodyL 10 MG SUPP PR STA (13:20)
--- NOTE | 2024-08-06 15:20 | Hospitalist Progress Note ---
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 Patient says had several episodes of diarrhea today. His blood pressure was 90/50 at home. And he was feeling weak. Currently in the ER he could not give stool sample yet. Denies any recent antibiotics. Denies any outside food. He is speaking but no voice. Able to understand while he is trying to speak. Denies any headache. Denies any blurred vision. No runny nose or sore throat. No difficulty swallowing. Denies chest pain. Denies shortness of breath. Afebrile. No abdominal pain. No nausea or vomiting. Micturating okay. Currently hemodynamics are okay. 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 Received radiation treatment. Status post total laryngectomy right neck dissection, subtotal thyroidectomy, status post creation of tracheal stoma -Currently On Keytruda q 3weeks. last dose 2 weeks ago -Monitor for mucous plugging of tracheal stoma -Last admission was started on Prednisone taper for diarrheas from immunotherapy. Patient says currently taking prednisone 20mg daily and says want to stop it. -Oncology follow-up Sick sinus syndrome Status post pacemaker CAD Status post CABG 1995 -On Plavix and statin and beta-liliana -To give beta-liliana with holding parameters Paroxysmal atrial fibrillation -On Eliquis -On metoprolol to be given with holding parameters Peripheral vascular disease Bilateral carotid endarterectomy -On Plavix and statin Moderate aortic stenosis Heart failure with preserved ejection fraction -continue IV fluids for 24 hours Anemia -Hemoglobin 8.7 -Seems around baseline Plan I spent a total of 50 minutes in direct patient care, including [id number] time with the patient and/or family, reviewing medical records, ordering and reviewing diagnostic tests, and coordinating care with other healthcare providers. This time includes: history taking, physical examination, medical decision making, counseling, ECG interpretation, imaging interpretation, lab interpretation, orders, and education, excluding time spent in the performance of separately billed services. Admission and Anticipated Discharge Date Admission Date: August 05, 2024 Subjective Patient seen and examined at bedside. Patient doing better this morning. Diarrhea has improved with fluids. States his last immunotherapy was 2 weeks ago. Review of Systems Review of Systems: CONSTITUTIONAL: weakness, fatigue EYES: Patient denies any visual symptoms. EARS, NOSE, AND THROAT: No difficulties with hearing. No symptoms of rhinitis or sore throat. CARDIOVASCULAR: Patient denies chest pains, palpitations, orthopnea and paroxysmal nocturnal dyspnea. RESPIRATORY: No dyspnea on exertion, no wheezing or cough. GI: diarrhea : No urinary hesitancy or dribbling. No nocturia or urinary frequency. No abnormal urethral discharge. MUSCULOSKELETAL: No myalgias or arthralgias. NEUROLOGIC: No chronic headaches, no seizures. Patient denies numbness, tingling or weakness. PSYCHIATRIC: Patient denies problems with mood disturbance. No problems with anxiety. ENDOCRINE: No excessive urination or excessive thirst. DERMATOLOGIC: Patient denies any rashes or skin changes. Physical Exam Physical Exam: Gen: A&O 3 NAD HEENT: NCAT, EOMI, not icteric. External ears normal. No rhinorrhea. Moist mucous membranes. Neck: Supple, full range of motion, no observable masses, No meningeal sign. Lungs: No Respiratory distress. CV: RRR, no edema. Abdomen: trace LLQ tenderness MSK: No joint swelling, no redness. Skin: No rashes, petechiae, lesions. Normal color per patient. Neuro: Normal Gait, Grossly intact. Psych: Appropriate for situation. Results & Data Results & Data Vital Signs (Past 12 Hours) Vital Signs Temp Pulse Pulse Resp BP Pulse Ox O2 Del Method 08/06/24 13:21 36.7 C 60 17 109/49 L 95 Room Air 08/06/24 08:25 Room Air 08/06/24 07:48 36.9 C 60 17 110/58 L 95 Room Air 08/06/24 07:22 69 Laboratory Results -personally reviewed, Hgb of 7 likely hemodilutional, slightly low potassium Diagnostic Findings Abdomen/Pelvis CT 08/06/24 07:29 CT abdomen pelvis wo/w con CLINICAL HISTORY: r/o immunotherapy colitis COMPARISON STUDY: 04/13/2024 FINDINGS: There are trace bilateral pleural effusions with mild adjacent dependent lung base atelectasis, right greater than left. There is a small hiatal hernia. ABDOMEN: There are gallstones without evidence of acute cholecystitis. Liver, spleen, pancreas, and adrenal glands are unremarkable. There are a few stable cysts at the kidneys, largest at the left kidney measures 4 cm. There are scattered atherosclerotic calcifications. Stable mild lobulation of the proximal abdominal aorta. No abdominal aortic aneurysm otherwise. Pelvis: Prostate is minimally enlarged. Urinary bladder is mildly distended. Rectum is distended with stool. Otherwise there is moderate retained stool. There is mildly increased enhancement of the small bowel, normal variation versus mild enteritis. No bowel inflammation or obstruction seen otherwise. No free fluid, free air, or abscess. Heterogeneously enhancing right inguinal mass measures 6 cm greatest axial dimension, increased in size. The anterior far right pelvic mass measures 7 cm greatest axial dimension, decreased in size compared with 12 cm prior. There is enlarged necrotic appearing adenopathy in the right iliac and right inguinal regions measuring up to 3 cm at a right inguinal lymph node, increased in size. Osseous structures: There is mild diffuse lumbar degenerative disc disease and mild degenerative changes at the hips. Stable bone island at the right iliac bone. IMPRESSION: 1. Rectum is distended with stool. There is moderate retained stool otherwise. There is mildly prominent wall enhancement at the small bowel, normal variation versus mild enteritis. No other bowel inflammation or obstruction seen. 2. Increased size of right inguinal mass and right inguinal adjacent lymph node. Decreased size of the far lateral right anterior pelvic mass. 3. Otherwise as described. ACT 112: Negative or not required by law. Electronically signed by: Stan Amaro M.D. 08/06/2024 9:43 AM -personally reviewed, noted rectal stool, slight enteritis, right pelvic mass decreased in size Medications Administered Apixaban (Apixaban 5 Mg Tablet) 5 mg PO [facility] Stop: 09/05/24 08:59 Last Admin: 08/06/24 08:27 Dose: 5 mg Documented By: [facility] Ascorbic Acid (Ascorbic Acid 500 Mg Tab) [facility] Stop: 09/05/24 08:59 Last Admin: 08/06/24 08:26 Dose: 250 mg Documented By: [facility] Atorvastatin Calcium (Atorvastatin 40 Mg Tab) 40 mg PO DAILY [facility] Stop: 09/05/24 08:59 Last Admin: 08/06/24 08:27 Dose: 40 mg Documented By: [facility] Clopidogrel Bisulfate (Clopidogrel Bisulfate 75 Mg Tab) 75 [facility] Stop: 09/05/24 08:59 Last Admin: 08/06/24 08:26 Dose: 75 mg Documented By: [facility] Ferrous Sulfate (Ferrous Sulfate 325 Mg Tab) 325 mg PO DAILY [facility] Stop: 09/05/24 08:59 Last Admin: 08/06/24 08:25 Dose: 325 mg Documented By: [facility] Ferrous Sulfate (Ferrous Sulfate 325 Mg Tab) 325 mg PO [facility] Stop: 09/05/24 08:59 Last Admin: 08/06/24 08:27 Dose: Not Given Documented By: [facility] Lactated Ringer's (Lr) 1,000 mls @ 100 mls/hr IV .Q10H [facility] Stop: 08/07/24 23:44 Last Admin: 08/06/24 13:21 Dose: Not Given Documented By: Infusion: 08/06/24 08:28 Dose: 0 mls/hr Documented By: [facility] Admin: 08/06/24 02:29 Dose: 100 mls/hr Documented By: Cefepime HCl (Maxipime 2000mg) 2,000 mg in 20 mls @ 5 mls/min IV Q8H [facility]; Protocol Stop: 08/11/24 06:59 Last Admin: 08/06/24 08:29 Dose: 5 mls/min Documented By: [facility] Levothyroxine Sodium (Levothyroxine Sodium 125 Mcg Tablet) 125 mcg PO DAILYBB [facility] Stop: 09/05/24 06:29 Last Admin: 08/06/24 05:26 Dose: 125 mcg Documented By: Metoprolol Succinate (Metoprolol Succ 25mg Ext Rel Tab) 12.5 mg PO DAILY [facility] Stop: 09/05/24 08:59 Last Admin: 08/06/24 08:26 Dose: 12.5 mg Documented By: [facility] Pantoprazole Sodium (Pantoprazole 40 Mg Tab) 40 mg PO DAILY [facility] Stop: 09/05/24 08:59 Last Admin: 08/06/24 08:37 Dose: Not Given Documented By: [facility] Potassium Chloride (Potassium Chloride 10 Meq Tabcr) 10 meq PO DAILY [facility] Stop: 09/05/24 08:59 Last Admin: 08/06/24 08:23 Dose: 10 meq Documented By: [facility] Prednisone (Prednisone 20 Mg Tab) 20 mg PO DAILY [facility] Stop: 09/05/24 08:59 Last Admin: 08/06/24 08:34 Dose: Not Given Documented By: [facility] Tamsulosin HCl (Tamsulosin Hcl 0.4 Mg Cap) 0.4 mg PO DAILY [facility] Stop: 09/05/24 08:59 Last Admin: 08/06/24 08:25 Dose: Not Given Documented By: [facility] Triamcinolone Acetonide (Triamcinolone Acet 0.1% Cr 15 Gm Tube) 1 appln TOP BID [facility] Stop: 09/05/24 08:59 Last Admin: 08/06/24 08:24 Dose: Not Given Documented By: [facility]
[2024-08-06] MEDS: dexAMETHasone 4 MG in SYRINGE 0 ML IV ONE (15:55)
[2024-08-06] MEDS: POTASSIUM CHLORIDE 20 MEQ/15 ML UDC PO STA (15:55)
[2024-08-06] MEDS ORDERED: POLYETHYLENE (MIRALAX) 17 GM PACK PO PRN (16:57)
[2024-08-06] MEDS: OLANZAPINE 2.5 MG TAB PO SCH (20:46)
[2024-08-06] MEDS: PARoxetine HCL 20 MG TAB PO SCH (20:46)
[2024-08-06] MEDS: MIRTAZAPINE TAB 15 MG TAB PO SCH (20:46)
[2024-08-07 03:16] VITALS: TEMP 97.5
[2024-08-07 06:51] LABS: Hematocrit (blood only) 23.9 % (42.0-52.0); Hemoglobin 7.7 g/dl (14.0-18.0); Mean Corpuscular Hemoglobin 28.1 pg (25.0-34.0); Mean Corpuscular Hgb Conc 32.2 g/dL (32.0-36.0); Mean Corpuscular Volume 87.2 fL (80.0-100.0); Mean Platelet Volume 9.3 fL (9.4-12.4); Platelet Count 290 K/uL (130-400); RDW Coefficient of Variation 17.6 % (11.5-14.5); RDW Standard Deviation 56.3 fL (36.4-46.3); Red Blood Count 2.74 M/uL (4.70-6.10)
[2024-08-07 07:11] LABS: Albumin Globulin Ratio 0.8 (0.9-2); Albumin Level 2.5 gm/dl (3.4-5.0); Bilirubin,Total 0.4 mg/dl (0.2-1.0); Calcium 7.7 mg/dl (8.6-10.3); Creatinine Clr Calc Pharmacy 91.3 ml/min; Phosphorus 3.2 mg/dl (2.5-4.9); Potassium 3.8 mmol/L (3.5-5.1); Total Protein 5.5 gm/dl (6.0-8.3)
[2024-08-07 08:31] VITALS: O2SAT 100
[2024-08-07 11:39] VITALS: RESP 18
--- NOTE | 2024-08-07 15:13 | Discharge Summary ---
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 Patient says had several episodes of diarrhea today. His blood pressure was 90/50 at home. And he was feeling weak. Currently in the ER he could not give stool sample yet. Denies any recent antibiotics. Denies any outside food. He is speaking but no voice. Able to understand while he is trying to speak. Denies any headache. Denies any blurred vision. No runny nose or sore throat. No difficulty swallowing. Denies chest pain. Denies shortness of breath. Afebrile. No abdominal pain. No nausea or vomiting. Micturating okay. Currently hemodynamics are okay. 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 Received radiation treatment. Status post total laryngectomy right neck dissection, subtotal thyroidectomy, status post creation of tracheal stoma -Currently On Keytruda q 3weeks. last dose 2 weeks ago -Monitor for mucous plugging of tracheal stoma -Last admission was started on Prednisone taper for diarrheas from immunotherapy. Patient says currently taking prednisone 20mg daily and says want to stop it. -Oncology follow-up Sick sinus syndrome Status post pacemaker CAD Status post CABG 1995 -On Plavix and statin and beta-liliana -To give beta-liliana with holding parameters Paroxysmal atrial fibrillation -On Eliquis -On metoprolol to be given with holding parameters Peripheral vascular disease Bilateral carotid endarterectomy -On Plavix and statin Moderate aortic stenosis Heart failure with preserved ejection fraction -continue IV fluids for 24 hours Anemia -Hemoglobin 8.7 -Seems around baseline Notes For Next Care Provider 84-year-old male with past medical history significant for hypothyroidism, hyperlipidemia, COPD, sleep apnea, 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 On medicine, given antibiotics and fluids with improvement. No diarrhea noted during hospital stay. PT/OT consulted, recommended return home. On 08/07/2024 patient medically stable for discharge home. Sent home with prednisone taper, antibiotics, will need close follow up with oncology and PCP. 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 Patient says had several episodes of diarrhea today. His blood pressure was 90/50 at home. And he was feeling weak. Currently in the ER he could not give stool sample yet. Denies any recent antibiotics. Denies any outside food. He is speaking but no voice. Able to understand while he is trying to speak. Denies any headache. Denies any blurred vision. No runny nose or sore throat. No difficulty swallowing. Denies chest pain. Denies shortness of breath. Afebrile. No abdominal pain. No nausea or vomiting. Micturating okay. Currently hemodynamics are okay. Past medical history. As mentioned above Past surgical history. Colonoscopy with biopsy. CABG. EGD with biopsy. Esophagoscopy. Cataract extraction. Laryngoscopy with biopsy. Laryngectomy subtotal supraglottic with dissection. Laryngectomy. Laryngoplasty. Cervical lymphadenectomy modified radical neck dissection. Removal of excess skin and subcutaneous tissue. Right rotator cuff repair. Tracheostoma revision. Revision of tracheostomy scar. Construct Tramquel esophageal fistula. Cricopharyngeal myotomy. Tracheal puncture. Social history. . Quit smoking 1984. Smoked 2 pack a day for 30 years. Alcohol occasional. No drug use. Family history. Mother had glaucoma. Eye problems. Hypertension. Father had heart attack. Lung cancer. Sister had breast cancer. Discharge Exam Gen: A&O 3 NAD HEENT: NCAT, EOMI, not icteric. External ears normal. No rhinorrhea. Moist mucous membranes. Neck: Supple, full range of motion, no observable masses, No meningeal sign. Lungs: No Respiratory distress. CV: RRR, no edema. Abdomen: trace LLQ tenderness MSK: No joint swelling, no redness. Skin: No rashes, petechiae, lesions. Normal color per patient. Neuro: Normal Gait, Grossly intact. Psych: Appropriate for situation. Updated Medication List Medication Instructions Recorded Confirmed Type levothyroxine 125 mcg tablet 125 mcg PO DAILYBB 03/25/18 08/05/24 History nitroglycerin 0.4 mg sublingual 1 tab sublingual UD PRN Chest Pain 03/25/18 08/05/24 History tablet clopidogrel 75 mg tablet 75 mg PO QAM 06/03/18 08/05/24 History albuterol sulfate 2.5 mg/3 mL 2.5 mg inhalation QID PRN 08/19/19 08/05/24 History (0.083 %) solution for nebulization Shortness Of Breath Or Wheezing polyethylene glycol 3350 17 gram 17 g PO DAILY PRN Constipation 11/02/20 08/05/24 History oral powder packet (Miralax) apixaban 5 mg tablet (Eliquis) 5 mg PO [facility] 09/13/21 08/05/24 History iron,carbonyl 65 mg-vitamin C 125 1 tab PO QAM 03/31/24 08/05/24 History mg tablet,delayed release (Vitron-C) triamcinolone acetonide 0.1 % 1 applic topical BID 03/31/24 08/05/24 History topical cream sodium chloride 7 % for 4 ml NEB BIDR PRN mucus plugging 04/02/24 08/05/24 Rx nebulization #240 mL oxycodone-acetaminophen 5 mg-325 1 tab PO Q8H PRN pain #10 tabs 06/24/24 08/05/24 Rx mg tablet (Percocet) olanzapine 2.5 mg tablet 2.5 mg PO HS 07/24/24 08/05/24 History atorvastatin 40 mg tablet 40 mg PO DAILY 08/05/24 08/05/24 History diphenoxylate-atropine 2.5 1 tab PO QID PRN Diarrhea 08/05/24 08/05/24 History mg-0.025 mg tablet ferrous sulfate 325 mg (65 mg 325 mg PO DAILY 08/05/24 08/05/24 History iron) tablet metoprolol succinate 25 mg 12.5 mg PO DAILY 08/05/24 08/05/24 History tablet,extended release 24 hr mirtazapine 15 mg tablet 15 mg PO HS 08/05/24 08/05/24 History pantoprazole 40 mg tablet,delayed 40 mg PO DAILY 08/05/24 08/05/24 History release paroxetine HCl 20 mg tablet (Paxil) 20 mg PO HS 08/05/24 08/05/24 History potassium chloride 10 mEq 10 meq PO DAILY 08/05/24 08/05/24 History tablet,extended release tamsulosin 0.4 mg capsule 0.4 mg PO DAILY 08/05/24 08/05/24 History amoxicillin 500 mg-potassium 1 tab PO BID 5 days #10 tabs 08/07/24 Rx clavulanate 125 mg tablet (Augmentin) prednisone 10 mg tablets in a dose 40 mg (4 x 10 mg) PO DAILY 14 days 08/07/24 Rx pack #33 ea Hospital Stay Data Consultations 08/05/24 20:57 ED Decision to Admit Stat Diagnostic Imagining Performed 08/06/24 07:29 CT abdomen pelvis wo/w con Urgent Pending Results Patient Have Any Pending Studies at Discharge: No Discharge Instructions Given to Patient (Per Discharging Provider) 1. Please follow up with oncology outpatient. 2. Finish prednisone taper at home. 3. Stay hydrated please. Total Time Total Time Spent Total Time Spent (In Minutes): I spent a total of 35 minutes in direct patient care, including [id number] time with the patient and/or family, reviewing medical records, ordering and reviewing diagnostic tests, and coordinating care with other healthcare providers. This time includes: history taking, physical examination, medical decision making, counseling, ECG interpretation, imaging interpretation, lab interpretation, orders, and education, excluding time spent in the performance of separately billed services.
[2024-08-07 16:52] VITALS: BP 129/66; PULSE 58
== END 2024-08-07 17:28 | disposition home or self-care (01) | DRG 394 ==
LOC: ED 15:26 → 2N 23:34 → INTOOBSV 23:34 → 2N 08-06 01:18

== ENCOUNTER 2024-08-13 13:11 | Inpatient (IN) ==
--- NOTE | 2024-08-13 13:40 | Emergency Department Note ---
Impression & Plan Sepsis, Acute dyspnea, Nausea & vomiting, Elevated lactic acid level, Elevated troponin, Leukocytosis, Elevated brain natriuretic peptide (BNP) level, Hypocalcemia ED Provider Note HISTORY OF PRESENT ILLNESS: Patient is an 84-year-old male presenting with vomiting and shortness of breath. reports the patient vomited last night. She reports she tried to suction the patient from his trach stoma but she does not feel that she got everything. Reports the patient had breakfast this morning and tried to take his morning pills but then he started to vomit again. Reports that the patient has been having difficulty breathing ever since and she is afraid he aspirated. Reports the patient had subjective fevers last night, as he was having chills and sweats but they did not take his temperature. No reported abdominal pain. Denies any chest pain. No reported sick contact exposures. ROS: as above PHYSICAL EXAM: Constitutional: Patient appears in no acute distress. HENT: Head: Normocephalic and atraumatic. Eyes: EOMI, PERRL Mouth/Throat: Mucous membranes moist. Neck: Trachea midline. Neck supple. Tracheostomy stoma present. Cardiovascular: Paced rhythm. No murmurs, rubs or gallops. Intact distal pulses. Pulmonary/Chest: No respiratory distress. Breath sounds clear and equal bilaterally. No wheezes or rales. Abdominal: Abdomen soft, no tenderness, rebound or guarding. Musculoskeletal: No tenderness or deformity noted. +2 pitting edema of bilateral lower extremities Skin: Warm and dry. No rash, erythema, pallor or cyanosis Neurological: Alert. CN II-XII grossly intact, moving all extremities equally and fully. MDM: - Vitals signs showed hypotension and tachypnea. - History obtained via patient and patient's . History as above. - Chronic conditions affecting care: sick sinus syndrome (s/p AICD); hypothyroidism; CAD (s/p CABG); CVA; COPD; HTN; HLD; laryngeal cancer (s/p laryngectomy) - Differential diagnoses include, but are not limited to: Congestive heart failure; acute coronary syndrome; COPD/asthma exacerbation; pulmonary edema; pulmonary embolism; pneumonia; pneumothorax; viral syndrome - Order placed for continuous cardiac monitoring. At this time, monitor showed rate of 90 bpm with paced rhythm, per my interpretation. - External medical records reviewed. Discharge summary dated was reviewed. Patient was admitted that time secondary to diarrhea, hypotension and weakness. - EKG image interpreted by myself showed atrial paced rhythm. Rate 91 bpm. QT 344. No acute ischemic changes. Noted to have an occasional PVC. - Laboratory workup interpreted by myself showed leukocytosis (WBC 18.15) with neutrophil predominance; anemia (Hgb 8.2 - baseline); normal PT/INR; elevated lactate (2.4); normal procalcitonin; stable electrolytes other than hypocalcemia (Ca 7.6); hypoglycemia (glucose 68); elevated troponin (36.1); elevated BNP (281) - Blood cultures obtained - COVID/flu/RSV negative - CXR image reviewed by myself is negative for pneumonia, per my interpretation. - Patient given 1g IV tylenol in ER for headache. He was given 4 mg IV Zofran for his nausea. He was given 2 L normal saline for fluid resuscitation, as his pressures were soft in the 90s systolic. He was given 2 g IV cefepime per empiric antibiotic coverage. - Patient has no reproducible abdominal pain on examination. So the CT abdomen/pelvis was considered was not obtained. - Given 1g IV calcium gluconate for electrolyte replacement. Given IV dextrose for hypoglycemia - Discussion was had with ed case manager about patient's case and need for admission - Hospitalist consulted for admission - Patient admitted to [facility] service for further evaluation and management. 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 Iron deficiency anemia (HFpEF) heart failure with preserved ejection fraction History of atrial fibrillation (Acute) Right leg swelling (Acute) Deep vein thrombosis (DVT) of right lower extremity (Acute) S/P vascular surgery Pressure ulcer, buttock Mucus plugging of bronchi (Acute) Mucus plug in respiratory tract (Acute) Leukocytosis (Acute) Depression Hypothyroidism (acquired) History of coronary artery disease History of atrial fibrillation Respiratory distress PVD (peripheral vascular disease) Abnormal computed tomography of abdomen and pelvis GI bleed Syncope Melena (Acute) Hematemesis (Acute) Elevated troponin (Acute) Elevated troponin 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) Anemia (Acute) Tracheostomy in place (Acute) Leukocytosis (Acute) Laryngeal cancer (Acute) Cellulitis (Acute) 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 (Acute) Severe sepsis Bacteremia due to Enterococcus (Acute) Sepsis Aspiration pneumonia (Acute) Aspiration pneumonia (Acute) Acute dyspnea (Acute) History of laryngectomy Aspiration pneumonia Multifocal pneumonia (Acute) Tracheostomy in place (Acute) Tracheobronchitis Hypoxia (Acute) SSS (sick sinus syndrome) (Chronic) History of CVA (cerebrovascular accident) (Chronic) February 2018, no deficits Tracheostomy in place (Acute) COPD (chronic obstructive pulmonary disease) Acute hypoxemic respiratory failure Peripheral eosinophilia Elevated troponin (Acute) Stenosis of left internal carotid artery History of cataract surgery (Chronic) H/O repair of right rotator cuff (Chronic) Anxiety (Chronic) 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 Symptoms were resolving by the time the patient arrived in the ED. 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 on CPAP no longer on CPAP post tracheostomy Surgical History Hx of laryngectomy (~1999) History of bronchoscopy History of tonsillectomy History of carotid endarterectomy RIGHT (MARCH 2018) History of cataract extraction with lens replacement cataract extraction with IOL implant and LRI left eye - 05/02/12 History of colonoscopy with polypectomy History of rotator cuff surgery Right - 2009 History of coronary artery bypass graft X2 VESSEL 1995 -- S LISS Family History Mother Essential hypertension Stroke Sister Cancer Breast cancer Daughter Cancer Colon cancer Social History Smoking Status: Former smoker Tobacco Type: Cigarettes Age Quit Using Tobacco: 55; packs per day: 2; Second Hand Exposure: No; Do You Dip or Chew Tobacco: No; Hx Alcohol Use: No Hx Substance Use: No Preferred Language: Frisian Communication Ability: Effective Communication Ability Comment: write answers to questions, unable to talk Visual Impairment: No Limitations Hearing Ability: Normal Boring Inspector Required: No Beliefs That Will Affect Care: None marital status: Current Living Situation: Spouse Current Living Situation Comment: home with spouse current occupational status: retired How many Children do You have: 2 How many Children do You have Comment: Son can help other: Home health nursing twice per week Feels Safe at Home: Yes Diet: regular during the past year weight has: decreased > 10 lbs Physical Activity Frequency: Does not Exercise Assistive Devices: None Allergies Allergies Allergy/AdvReac Type Severity Reaction Status Date / Time rosuvastatin [From Crestor] Allergy Unknown HAPPENED A Verified 08/13/24 15:17 LONG TIME AGO. Home Meds Home Medications Medication Instructions Recorded Confirmed levothyroxine 125 mcg tablet 125 mcg PO DAILYBB 03/25/18 08/13/24 nitroglycerin 0.4 mg sublingual 1 tab sublingual UD PRN Chest Pain 03/25/18 08/13/24 tablet clopidogrel 75 mg tablet 75 mg PO QAM 06/03/18 08/13/24 albuterol sulfate 2.5 mg/3 mL 2.5 mg inhalation QID PRN 08/19/19 08/13/24 (0.083 %) solution for nebulization Shortness Of Breath Or Wheezing polyethylene glycol 3350 17 gram 17 g PO DAILY PRN Constipation 11/02/20 08/13/24 oral powder packet (Miralax) apixaban 5 mg tablet (Eliquis) 5 mg PO AMHS 09/13/21 08/13/24 iron,carbonyl 65 mg-vitamin C 125 1 tab PO QAM 03/31/24 08/13/24 mg tablet,delayed release (Vitron-C) triamcinolone acetonide 0.1 % 1 applic topical BID 03/31/24 08/13/24 topical cream olanzapine 2.5 mg tablet 2.5 mg PO HS 07/24/24 08/13/24 atorvastatin 40 mg tablet 40 mg PO DAILY 08/05/24 08/13/24 diphenoxylate-atropine 2.5 1 tab PO QID PRN Diarrhea 08/05/24 08/13/24 mg-0.025 mg tablet ferrous sulfate 325 mg (65 mg 325 mg PO DAILY 08/05/24 08/13/24 iron) tablet metoprolol succinate 25 mg 12.5 mg PO DAILY 08/05/24 08/13/24 tablet,extended release 24 hr mirtazapine 15 mg tablet 15 mg PO HS 08/05/24 08/13/24 pantoprazole 40 mg tablet,delayed 40 mg PO DAILY 08/05/24 08/13/24 release paroxetine HCl 20 mg tablet (Paxil) 20 mg PO HS 08/05/24 08/13/24 potassium chloride 10 mEq 10 meq PO DAILY 08/05/24 08/13/24 tablet,extended release tamsulosin 0.4 mg capsule 0.4 mg PO DAILY 08/05/24 08/13/24 Previous Rx's Medication Instructions Recorded sodium chloride 7 % for 4 ml NEB BIDR PRN mucus plugging 04/02/24 nebulization #240 mL oxycodone-acetaminophen 5 mg-325 1 tab PO Q8H PRN pain #10 tabs 06/24/24 mg tablet (Percocet) prednisone 10 mg tablets in a dose 40 mg (4 x 10 mg) PO DAILY 14 days 08/07/24 pack #33 ea Results & Data (ED) Vital Signs Vital Signs - 24 hr 08/13/24 13:18 08/13/24 14:00 08/13/24 14:00 Temperature 36.3 C L Temperature Source Temporal Artery Scan Pulse Rate 90 Pulse Rate [Apical] Respiratory Rate 26 H Respiratory Effort / Characteristics Spontaneous Labored Respiratory Depth Normal Respiratory Pattern Regular Blood Pressure 95/50 L Blood Pressure [Right Arm] Blood Pressure Mean 65 Blood Pressure Mean [Right Arm] Pulse Oximetry 92 95 Oxygen Delivery Method Room Air Room Air Sepsis Recent Fever Within 48 Hours Yes Sepsis New/Unexplained Change in Mental Status N/A Sepsis Action Taken by Nursing Physician Notified 08/13/24 14:10 08/13/24 15:03 08/13/24 15:09 Temperature Temperature Source Pulse Rate 78 Pulse Rate [Apical] 70 Respiratory Rate 22 Respiratory Effort / Characteristics Respiratory Depth Respiratory Pattern Blood Pressure Blood Pressure [Right Arm] 99/45 L 91/44 L Blood Pressure Mean Blood Pressure Mean [Right Arm] 63 59 Pulse Oximetry 99 Oxygen Delivery Method Sepsis Recent Fever Within 48 Hours Sepsis New/Unexplained Change in Mental Status Sepsis Action Taken by Nursing 08/13/24 16:11 Temperature Temperature Source Pulse Rate Pulse Rate [Apical] 68 Respiratory Rate 17 Respiratory Effort / Characteristics Respiratory Depth Normal Respiratory Pattern Blood Pressure Blood Pressure [Right Arm] 94/43 L Blood Pressure Mean Blood Pressure Mean [Right Arm] 60 Pulse Oximetry 100 Oxygen Delivery Method Trach Collar Sepsis Recent Fever Within 48 Hours Sepsis New/Unexplained Change in Mental Status Sepsis Action Taken by Nursing Laboratory Data 08/13/24 13:23 08/13/24 13:23 Lab Results 08/13/24 08/13/24 08/13/24 Range/Units 13:23 13:37 13:44 WBC 18.15 H (4.8-10.8) K/ul RBC 2.94 L (4.70-6.10) M/uL Hgb 8.2 L (14.0-18.0) g/dl Hct 26.8 L (42.0-52.0) % MCV 91.2 (80.0-100.0) fL MCH 27.9 (25.0-34.0) pg MCHC 30.6 L (32.0-36.0) g/dL RDW Std Deviation 60.8 H (36.4-46.3) fL RDW Coeff of Sharda 18.5 H (11.5-14.5) % Plt Count 292 (130-400) K/uL MPV 9.5 (9.4-12.4) fL Immature Gran % (Auto) 1.5 % Neut % (Auto) 96.0 % Lymph % (Auto) 2.0 % [place] % (Auto) 0.3 % Eos % (Auto) 0.1 % Baso % (Auto) 0.1 % Neut # (Auto) 17.41 H (1.40-6.50) K/uL Lymph # (Auto) 0.37 L (1.20-3.40) K/uL [place] # (Auto) 0.06 L (0.11-0.59) K/uL Eos # (Auto) 0.01 (0.00-0.50) K/uL Baso # (Auto) 0.02 (0.00-0.20) K/uL Immature Gran # (Auto) 0.28 H (0.01-0.20) K/uL Absolute Nucleated RBC 0.02 (0.00-0.12) K/uL Nucleated RBC % (auto) 0.1 % Hyposegmented Neuts 1+ Polychromasia 1+ Ovalocytes 1+ PT 11.4 (9.0-12.0) Seconds INR 1.1 (0.9-1.1) VBG pH (7.36-7.41) VBG pCO2 (38-50) mmHg VBG pO2 mmHg VBG HCO3 mmol/L VBG O2 Saturation % VBG Base Excess mEq/L Sodium 138 (136-145) mmol/L Potassium 3.9 (3.5-5.1) mmol/L Chloride 106 (98-107) mmol/L Carbon Dioxide 24 (21-32) mmol/L Anion Gap 8 (3-11) BUN 37 H (6-23) mg/dl Creatinine 0.80 (0.6-1.4) mg/dl Est Cr Clr Drug Dosing 71.9 ml/min eGFR 86.73 BUN/Creatinine Ratio 46.3 H (10-20) Glucose 68 L (70-99(Fasting)) mg/dl Lactate (0.4-2.0) mmol/L Calcium 7.6 L (8.6-10.3) mg/dl Magnesium 1.9 (1.7-2.4) mg/dl Total Bilirubin 0.4 (0.2-1.0) mg/dl AST 20 (13-39) U/L ALT 27 (7-52) U/L Alkaline Phosphatase 87 (34-104) U/L Troponin I High Sens 36.1 H (0-20) pg/ml B-Natriuretic Peptide 281 H (0-100) pg/ml Total Protein 5.6 L (6.0-8.3) gm/dl Albumin 2.9 L (3.4-5.0) gm/dl Globulin 2.7 (2.5-4.0) gm/dl Albumin/Globulin Ratio 1.1 (0.9-2) Procalcitonin 0.08 (0-0.5) ng/ml SARS-CoV-2 (PCR) NEGATIVE (Negative) Influenza Type A (PCR) Negative (Neg) Influenza Type B (PCR) Negative (Neg) RSV (RT-PCR) Negative (Neg) 08/13/24 Range/Units 13:50 WBC (4.8-10.8) K/ul RBC (4.70-6.10) M/uL Hgb (14.0-18.0) g/dl Hct (42.0-52.0) % MCV (80.0-100.0) fL MCH (25.0-34.0) pg MCHC (32.0-36.0) g/dL RDW Std Deviation (36.4-46.3) fL RDW Coeff of Sharda (11.5-14.5) % Plt Count (130-400) K/uL MPV (9.4-12.4) fL Immature Gran % (Auto) % Neut % (Auto) % Lymph % (Auto) % [place] % (Auto) % Eos % (Auto) % Baso % (Auto) % Neut # (Auto) (1.40-6.50) K/uL Lymph # (Auto) (1.20-3.40) K/uL [place] # (Auto) (0.11-0.59) K/uL Eos # (Auto) (0.00-0.50) K/uL Baso # (Auto) (0.00-0.20) K/uL Immature Gran # (Auto) (0.01-0.20) K/uL Absolute Nucleated RBC (0.00-0.12) K/uL Nucleated RBC % (auto) % Hyposegmented Neuts Polychromasia Ovalocytes PT (9.0-12.0) Seconds INR (0.9-1.1) VBG pH 7.38 (7.36-7.41) VBG pCO2 37 L (38-50) mmHg VBG pO2 54 mmHg VBG HCO3 22 mmol/L VBG O2 Saturation 86.6 % VBG Base Excess -2.8 mEq/L Sodium (136-145) mmol/L Potassium (3.5-5.1) mmol/L Chloride (98-107) mmol/L Carbon Dioxide (21-32) mmol/L Anion Gap (3-11) BUN (6-23) mg/dl Creatinine (0.6-1.4) mg/dl Est Cr Clr Drug Dosing ml/min eGFR BUN/Creatinine Ratio (10-20) Glucose (70-99(Fasting)) mg/dl Lactate 2.4 H* (0.4-2.0) mmol/L Calcium (8.6-10.3) mg/dl Magnesium (1.7-2.4) mg/dl Total Bilirubin (0.2-1.0) mg/dl AST (13-39) U/L ALT (7-52) U/L Alkaline Phosphatase (34-104) U/L Troponin I High Sens (0-20) pg/ml B-Natriuretic Peptide (0-100) pg/ml Total Protein (6.0-8.3) gm/dl Albumin (3.4-5.0) gm/dl Globulin (2.5-4.0) gm/dl Albumin/Globulin Ratio (0.9-2) Procalcitonin (0-0.5) ng/ml SARS-CoV-2 (PCR) (Negative) Influenza Type A (PCR) (Neg) Influenza Type B (PCR) (Neg) RSV (RT-PCR) (Neg) Administered Medications Sodium Chloride (Nss) 2,000 mls @ 999 mls/hr IV .Q2H1M ONE Stop: 08/13/24 17:15 Last Admin: 08/13/24 15:30 Dose: 999 mls/hr Documented By: BS Discontinued Medications Dextrose (Dextrose 50% 50 Ml Syringe) 50 ml IV NOW ONE Stop: 08/13/24 16:02 Last Admin: 08/13/24 16:17 Dose: 50 ml Documented By: SHU Acetaminophen (Ofirmev) 1,000 mg in 100 mls @ 400 mls/hr IV NOW STA Stop: 08/13/24 14:36 Last Admin: 08/13/24 14:27 Dose: 400 mls/hr Documented By: NIKKI Cefepime HCl (Maxipime 2000mg) 2,000 mg in 20 mls @ 5 mls/min IV NOW STA; Protocol Stop: 08/13/24 14:27 Last Admin: 08/13/24 14:48 Dose: 5 mls/min Documented By: NIKKI Calcium Gluconate () 1,000 mg in 60 mls @ 240 mls/hr IV NOW STA Stop: 08/13/24 16:15 Last Admin: 08/13/24 16:17 Dose: 240 mls/hr Documented By: SHU Ondansetron HCl (Ondansetron Inj 2 Mg/Ml 2 Ml Vial) 4 mg IV NOW STA Stop: 08/13/24 13:38 Last Admin: 08/13/24 14:48 Dose: 4 mg Documented By: NIKKI Imaging Data Radiologist's Impression: Chest X-Ray 08/13/24 13:23 Chest radiograph, one view History: Chest pain Comparison: August 05, 2024 Findings: Single AP view of the chest performed. No focal consolidation or pleural effusion. No pneumothorax. The cardiomediastinal silhouette is within normal limits. Left chest wall dual-lead AICD. Normal pulmonary vascularity. No evidence for lymphadenopathy. No visualized bony or soft tissue abnormality. Median sternotomy wires. Impression: Normal chest radiograph Electronically signed by Reginaldo Mckeon 08-13-2024 3:15 PM Discharge Plan Visit Data Chief Complaint: Shortness of Breath/Dyspnea Stated Complaint: TROUBLE BREATHING, CONCERN OF PNEUMONIA ED Provider: Nohelia Walker Discharge Problem: Sepsis, Acute dyspnea, Nausea & vomiting, Elevated lactic acid level, Elevated troponin, Leukocytosis, Elevated brain natriuretic peptide (BNP) level, Hypocalcemia Forms Stand Alone Forms: My [employer] Prescriptions Prescriptions: No Action levothyroxine 125 mcg tablet 125 mcg PO DAILYBB Rx Instructions: Last filled 12/2023. PER PT'S "DOESN'T TAKE REGULARLY". nitroglycerin 0.4 mg tablet, sublingual 1 tab Sublingual UD PRN (Reason: Chest Pain) Patient Comments: Never had to use Rx Instructions: PER PT'S "DOESN'T TAKE". albuterol sulfate 2.5 mg /3 mL (0.083 %) Solution For Nebulization 2.5 mg INHALATION QID PRN (Reason: Shortness Of Breath Or Wheezing) Rx Instructions: PER PT'S "DOESN'T TAKE". clopidogrel 75 mg tablet 75 mg PO QAM Rx Instructions: PER PT'S "DOESN'T TAKE". Eliquis 5 mg tablet 5 mg PO AMHS polyethylene glycol 3350 [Miralax] 17 gram powder in packet 17 g PO DAILY PRN (Reason: Constipation) Rx Instructions: PER PT'S "DOESN'T TAKE". oxycodone-acetaminophen [Percocet] 5-325 mg tablet 1 tab PO Q8H PRN (Reason: pain) Qty: 10 0RF Rx Instructions: PER PT'S "DOESN'T TAKE". triamcinolone acetonide 0.1 % cream 1 applic TOPICAL BID Rx Instructions: PER PT'S "DOESN'T TAKE". Vitron-C 65 mg iron- 125 mg Tablet,Delayed Release (Dr/Ec) 1 tab PO QAM Rx Instructions: PER PT'S "DOESN'T TAKE". sodium chloride 7 % Solution For Nebulization 4 ml NEB BIDR PRN (Reason: mucus plugging) Qty: 240 0RF Rx Instructions: PER PT'S "DOESN'T TAKE". olanzapine 2.5 mg tablet 2.5 mg PO HS Rx Instructions: ORDERED 07/22/24 FOR 16 DAYS. PER PT'S "DOESN'T TAKE". atorvastatin 40 mg Tablet 40 mg PO DAILY Rx Instructions: PER PT'S "DOESN'T TAKE". diphenoxylate-atropine 2.5-0.025 mg tablet 1 tab PO QID PRN (Reason: Diarrhea) potassium chloride 10 mEq Tablet Extended Release 10 meq PO DAILY Rx Instructions: PER PT'S "DOESN'T TAKE". tamsulosin 0.4 mg Capsule 0.4 mg PO DAILY Rx Instructions: PER PT'S "DOESN'T TAKE". paroxetine HCl [Paxil] 20 mg Tablet 20 mg PO HS Rx Instructions: PER PT'S "DOESN'T TAKE". pantoprazole 40 mg Tablet,Delayed Release (Dr/Ec) 40 mg PO DAILY Rx Instructions: PER PT'S "DOESN'T TAKE". ferrous sulfate 325 mg (65 mg iron) Tablet 325 mg PO DAILY Rx Instructions: PER PT'S "DOESN'T TAKE". mirtazapine 15 mg Tablet 15 mg PO HS Rx Instructions: PER PT'S "DOESN'T TAKE". metoprolol succinate 25 mg Tablet Extended Release 24 Hr 12.5 mg PO DAILY Rx Instructions: PER PT'S "DOESN'T TAKE". prednisone 10 mg tablets,dose pack 40 mg PO DAILY 14 Days Qty: 33 0RF Rx Instructions: ORDERED 08/07/24----dose pack: 40 mg for 5 days, 20mg x5 days, 10 mg x2 days, 5mg x2 days Referrals Referrals: Neto Rasheed MD [Primary Care Provider] -
--- NOTE | 2024-08-13 13:56 | History & Physical Report ---
Date of Service August 13, 2024 Assessment & Plan Admission and Anticipated Discharge Date Admission Date: Time spent evaluating patient, direct bedside care, chart review, placing orders, interpretation of diagnostic studies, discussion with consultants, p atient, and family members, as well as other required patient management activities is 60 minutes. History of Present Illness Chief Complaint: sob Primary Care Provider: Neto Rasheed MD Allergies Allergy/AdvReac Type Severity Reaction Status Date / Time rosuvastatin [From Crestor] Allergy Unknown HAPPENED A Verified 08/05/24 17:41 LONG TIME AGO. Home Medications Medication Instructions Recorded Confirmed Type levothyroxine 125 mcg tablet 125 mcg PO DAILYBB 03/25/18 08/05/24 History nitroglycerin 0.4 mg sublingual 1 tab sublingual UD PRN Chest Pain 03/25/18 08/05/24 History tablet clopidogrel 75 mg tablet 75 mg PO QAM 06/03/18 08/05/24 History albuterol sulfate 2.5 mg/3 mL 2.5 mg inhalation QID PRN 08/19/19 08/05/24 History (0.083 %) solution for nebulization Shortness Of Breath Or Wheezing polyethylene glycol 3350 17 gram 17 g PO DAILY PRN Constipation 11/02/20 08/05/24 History oral powder packet (Miralax) apixaban 5 mg tablet (Eliquis) 5 mg PO AMHS 09/13/21 08/05/24 History iron,carbonyl 65 mg-vitamin C 125 1 tab PO QAM 03/31/24 08/05/24 History mg tablet,delayed release (Vitron-C) triamcinolone acetonide 0.1 % 1 applic topical BID 03/31/24 08/05/24 History topical cream sodium chloride 7 % for 4 ml NEB BIDR PRN mucus plugging 04/02/24 08/05/24 Rx nebulization #240 mL oxycodone-acetaminophen 5 mg-325 1 tab PO Q8H PRN pain #10 tabs 06/24/24 08/05/24 Rx mg tablet (Percocet) olanzapine 2.5 mg tablet 2.5 mg PO HS 07/24/24 08/05/24 History atorvastatin 40 mg tablet 40 mg PO DAILY 08/05/24 08/05/24 History diphenoxylate-atropine 2.5 1 tab PO QID PRN Diarrhea 08/05/24 08/05/24 History mg-0.025 mg tablet ferrous sulfate 325 mg (65 mg 325 mg PO DAILY 08/05/24 08/05/24 History iron) tablet metoprolol succinate 25 mg 12.5 mg PO DAILY 08/05/24 08/05/24 History tablet,extended release 24 hr mirtazapine 15 mg tablet 15 mg PO HS 08/05/24 08/05/24 History pantoprazole 40 mg tablet,delayed 40 mg PO DAILY 08/05/24 08/05/24 History release paroxetine HCl 20 mg tablet (Paxil) 20 mg PO HS 08/05/24 08/05/24 History potassium chloride 10 mEq 10 meq PO DAILY 08/05/24 08/05/24 History tablet,extended release tamsulosin 0.4 mg capsule 0.4 mg PO DAILY 08/05/24 08/05/24 History prednisone 10 mg tablets in a dose 40 mg (4 x 10 mg) PO DAILY 14 days 08/07/24 Rx pack #33 ea Past Med/Surg History Problem List (Updated 08/05/24 @ 17:21 by Kimo Osman MD) Diarrhea (Acute) Elevated troponin (Acute) Generalized weakness (Acute) 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 Iron deficiency anemia (HFpEF) heart failure with preserved ejection fraction History of atrial fibrillation (Acute) Right leg swelling (Acute) Deep vein thrombosis (DVT) of right lower extremity (Acute) S/P vascular surgery Pressure ulcer, buttock Mucus plugging of bronchi (Acute) Mucus plug in respiratory tract (Acute) Leukocytosis (Acute) Depression Hypothyroidism (acquired) History of coronary artery disease History of atrial fibrillation Respiratory distress PVD (peripheral vascular disease) Abnormal computed tomography of abdomen and pelvis GI bleed Syncope Melena (Acute) Hematemesis (Acute) Elevated troponin (Acute) Elevated troponin 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) Anemia (Acute) Tracheostomy in place (Acute) Leukocytosis (Acute) Laryngeal cancer (Acute) Cellulitis (Acute) 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 (Acute) Severe sepsis Bacteremia due to Enterococcus (Acute) Sepsis Aspiration pneumonia (Acute) Aspiration pneumonia (Acute) Acute dyspnea (Acute) History of laryngectomy Aspiration pneumonia Multifocal pneumonia (Acute) Tracheostomy in place (Acute) Tracheobronchitis Hypoxia (Acute) SSS (sick sinus syndrome) (Chronic) History of CVA (cerebrovascular accident) (Chronic) February 2018, no deficits Tracheostomy in place (Acute) COPD (chronic obstructive pulmonary disease) Acute hypoxemic respiratory failure Peripheral eosinophilia Elevated troponin (Acute) Stenosis of left internal carotid artery History of cataract surgery (Chronic) H/O repair of right rotator cuff (Chronic) Anxiety (Chronic) 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 Symptoms were resolving by the time the patient arrived in the ED. 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 on CPAP no longer on CPAP post tracheostomy Surgical History Hx of laryngectomy (~1999) History of bronchoscopy History of tonsillectomy History of carotid endarterectomy RIGHT (MARCH 2018) History of cataract extraction with lens replacement cataract extraction with IOL implant and LRI left eye - 05/02/12 History of colonoscopy with polypectomy History of rotator cuff surgery Right - 2009 History of coronary artery bypass graft X2 VESSEL 1995 -- Himanshu LEIJA Family History Mother Essential hypertension Stroke Sister Cancer Breast cancer Daughter Cancer Colon cancer Social History Smoking Status: Former smoker Tobacco Type: Cigarettes Age Quit Using Tobacco: 55; packs per day: 2; Second Hand Exposure: No; Do You Dip or Chew Tobacco: No; Hx Alcohol Use: No Hx Substance Use: No Preferred Language: [place] Communication Ability: Effective Communication Ability Comment: write answers to questions, unable to talk Visual Impairment: No Limitations Hearing Ability: Normal [employer] Record Supervisor Required: No Beliefs That Will Affect Care: None marital status: Current Living Situation: Spouse Current Living Situation Comment: home with spouse current occupational status: retired How many Children do You have: 2 How many Children do You have Comment: Son can help other: Home health nursing twice per week Feels Safe at Home: Yes Diet: regular during the past year weight has: decreased > 10 lbs Physical Activity Frequency: Does not Exercise Assistive Devices: None Review of Systems Review of Systems: Constitutional: (-) fever/chills, (-) recent loss of weight, (-) appetite changes, (-) night sweats. Head: (-) headache, (-) dizziness. Eye: (-) blurring of vision, (-) double vision, (-) redness. Ear: (-) hearing loss, (-) discharge, (-) vertigo Nose: (-) discharge, (-) bleeding, (-) congestion, (-) post nasal drip. Throat: (-) sore throat, (-) hoarseness of voice, (-) odynophagia. Cardiovascular: (-) chest pain, (-) palpitations, (-) syncope, (-) orthopnea, (- ) PND, (-) leg swelling. Respiratory: (-) shortness of breath, (-) cough, (-) wheezing, (-) hemoptysis. Neuro: (-) weakness in extremities, (-) numbness, (-) tingling, (-) tremor. Gastrointestinal: (-) belly pain, (-) belly distension, (-) nausea, (-) vomiting, (-) diarrhea, (-) constipation, (-) na, (-) hematemesis, (-) hematochezia, (-) bowel incontinence Genitourinary: (-) hematuria, (-) dysuria, (-) polyuria, (-) hesitancy, (-) frequency, (-) urinary incontinence. Musculoskeletal: (-) myalgia, (-) arthralgia. Skin: (-) rashes. Endocrine: (-) heat/cold intolerance. Psychiatry: (-) depression, (-) hallucination. Physical Exam Physical Exam: GENERAL APPEARANCE: AxOx4, generally well-appearing M/F, no acute distress. HEENT: NC, AT. MMM. EOMI, clear conjunctiva, oropharynx clear. NECK: Supple without lymphadenopathy. No stiffness or restricted ROM. HEART: Normal rate and regular rhythm, normal S1/S1, no m/r/g LUNGS: CTAB, moving air well. No crackles or wheezes are heard. ABDOMEN: Soft, nontender, nondistended with good bowel sounds heard. BACK: No CVAT, no obvious deformity. EXTREMITIES: Without cyanosis, clubbing or edema. NEUROLOGICAL: Grossly nonfocal. Alert and oriented, moving all 4 extremities. CN not formally tested but appear grossly intact. Observed to ambulate with normal gait. Skin: Warm and dry without any rash. Results & Data Results & Data Vital Signs (Past 12 Hours) Vital Signs Temp Pulse Resp BP Pulse Ox O2 Del Method 08/13/24 13:18 36.3 C L 90 26 H 95/50 L 92 Room Air
[2024-08-13] MEDS: ONDANSETRON INJ 2 MG/ML 2 ML VIAL IV STA (14:00)
[2024-08-13 14:06] LABS: Base Excess VBG -2.8 mEq/L; HCO3 VBG 22 mmol/L; Oxygen Saturation VBG 86.6 %; PCO2 VBG 37 mmHg (38-50); PO2 VBG 54 mmHg; pH VBG 7.38 (7.36-7.41)
[2024-08-13 14:22] LABS: Hematocrit (blood only) 26.8 % (42.0-52.0); Hemoglobin 8.2 g/dl (14.0-18.0); Mean Corpuscular Hemoglobin 27.9 pg (25.0-34.0); Mean Corpuscular Hgb Conc 30.6 g/dL (32.0-36.0); Mean Corpuscular Volume 91.2 fL (80.0-100.0); Mean Platelet Volume 9.5 fL (9.4-12.4); Nucleated RBC # (auto) 0.02 K/uL (0.00-0.12); Nucleated RBC % (auto) 0.1 %; Platelet Count 292 K/uL (130-400); RDW Coefficient of Variation 18.5 % (11.5-14.5); RDW Standard Deviation 60.8 fL (36.4-46.3); Red Blood Count 2.94 M/uL (4.70-6.10); White Blood Count 18.15 K/ul (4.8-10.8)
[2024-08-13] MEDS: ACETAMINOPHEN 1,000 MG/100 ML VIAL IV STA (14:27)
[2024-08-13 14:41] LABS: Albumin Globulin Ratio 1.1 (0.9-2); Albumin Level 2.9 gm/dl (3.4-5.0); BUN Creatinine Ratio 46.3 (10-20); Bilirubin,Total 0.4 mg/dl (0.2-1.0); Calcium 7.6 mg/dl (8.6-10.3); Creatinine Clr Calc Pharmacy 71.9 ml/min; Globulin 2.7 gm/dl (2.5-4.0); Magnesium 1.9 mg/dl (1.7-2.4); Potassium 3.9 mmol/L (3.5-5.1); Total Protein 5.6 gm/dl (6.0-8.3)
[2024-08-13 14:42] LABS: INR 1.1 (0.9-1.1); Prothrombin Time 11.4 Seconds (9.0-12.0)
[2024-08-13 14:43] LABS: Basophils # (auto) 0.02 K/uL (0.00-0.20); Basophils % (auto) 0.1 %; Eosinophils # (auto) 0.01 K/uL (0.00-0.50); Eosinophils % (auto) 0.1 %; Immature Granulocytes # (auto) 0.28 K/uL (0.01-0.20); Immature Granulocytes % (auto) 1.5 %; Lymphocytes # (auto) 0.37 K/uL (1.20-3.40); Monocytes # (auto) 0.06 K/uL (0.11-0.59); Monocytes % (auto) 0.3 %; Neutrophils # (auto) 17.41 K/uL (1.40-6.50); Ovalocytes 1+; Polychromasia 1+
[2024-08-13 14:47] LABS: Troponin I High Sensitivity 36.1 pg/ml (0-20)
[2024-08-13] MEDS: CEFEPIME 2000MG 2,000 MG/20 ML SYR IV STA (14:48)
[2024-08-13 14:50] LABS: Influenza A virus by PCR Negative (Neg); Influenza B virus by PCR Negative (Neg); RSV by PCR Negative (Neg); SARS CoV2 RNA(COVID-19) Ceph NEGATIVE (Negative)
--- NOTE | 2024-08-13 15:16 | XRay Report ---
Chest radiograph, one view History: Chest pain Comparison: August 05, 2024 Findings: Single AP view of the chest performed. No focal consolidation or pleural effusion. No pneumothorax. The cardiomediastinal silhouette is within normal limits. Left chest wall dual-lead AICD. Normal pulmonary vascularity. No evidence for lymphadenopathy. No visualized bony or soft tissue abnormality. Median sternotomy wires. Impression: Normal chest radiograph Electronically signed by Reginaldo Mckeon 08-13-2024 3:15 PM
[2024-08-13] MEDS: SODIUM CHLORIDE 0.9% 2,000 ML IV ONE (15:30)
--- NOTE | 2024-08-13 16:08 | History & Physical Report ---
Date of Service August 13, 2024 Assessment & Plan (1) Sepsis: (2) Acute hypoxemic respiratory failure: (3) Mucus plug in respiratory tract: (4) Hematochezia: (5) Immunosuppressed due to chemotherapy: (6) Current chronic use of systemic steroids: Plan Mr. 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 Patient with sepsis however, does not appear overtly toxic on exam. Leukocytosis possible iso mucous plugging as well as steroid taper initiated on 08/07; tachypnea iso possible secretions--patient doesnt use home hypertonic nebs, so again possibly poor secretion mgmt at home; chronic steroids could be contributing to hypotension. Ultimately, patient is still high risk for infection, therefore infectious work up pending with broad spectrum abx ongoing, as well as aggressive resp toilet. Recent admissions [facility] 07/24- for right lower leg swelling +dvt, saw heme/onc who he sees for metastatic cancer, felt likely when stopped Eliquis for left leg port. [facility] 08/05- for diarrhea and hypotension #Severe Sepsis, concern for pulm source #Acute hypoxic respiratory failure #Increased secretions, concern for mucous plugging v developing infection given recent admissions/immunosuppressed v pneumonitis developing? #immunocompromised on chemotherapy last speech eval 2023, noting patient's anatomy (laryngectomy) makes it essentially impossible for aspiration CXR unrevealing, procal 0.08 CT chest ordered Continue previously prescribed steroid burst Continue with zosyn MRSA nare ordered, vanc in interim, discontinue as able blood cultures pending sputum culture ordered UA ordered s/p 2 L, continue NS @80cc/hr close monitoring of fluid status 2/2 HFpEF and aortic stenosis hx Hypertonic saline nebs BID, duonebs q6h xopenex prn chest pt with cough assist and frequent suctioning admit to u #Chronic Diarrhea #hematochezia #Chronic Normocytic Anemia recent admission in 06/2024 for ongoing diarrhea, thought to be related to ongoing therapies, s/p multiple tapers of steroids -Hemoglobin baseline around 8 since 05/2024 episode of "small drops of blood" per nursing in diaper, mixed with diarrhea BP stable in 90-100s, HR in 80s Reports discomfort with bm 2/2 ongoing diarrhea thought to be secondary to ongoing immunotherapies hemocult positive b12, folate, fe and ferritin for optimization HH q6 hours x 2 IV PPI and CLD for now --advance diet contingent on stable hgb v GI consult Anusol to anus for comfort continue eliquis and plavix for now, however, low threhold to d/c if hgb drops ;however, given stable bp and hgb, as well as scanty red streaks in stool, will continue as seemingly likely related to chronic issues #Hypotension #Weakness #Chronic Steroid Use Gentle IVF as above PT/OT Concern for possible impending iatrogenic adrenal insufficiency as patient has received multiple doses of steroids Random cortisol ordered consider additional eval if steroid taper results in worsening symptoms Continue recently prescribed steroid tapers (started 40mg x 5 days on 08/07, now on 20mg x 5 days (EOT 08/15) then 10 mg x2 days, 5mg x2 days #Elevated troponin, potentially demand iso acute illness, hypoxia ?pneumonitis, dehydration, known CAD Troponin chronically elevated in 20-30s on admission 36, likely multifactorial however, low suspicion for ACS Trend troponin q6h to peak Monitor on tele #Pressure ulcer, POA wound care consult #Moderate aortic stenosis #Chronic Heart failure with preserved ejection fraction ECHO 11/2023 with EF 55-59%, follows cards op -continue IV fluids iso sepsis, monitor for volume overload appears dry and with elevated Lactate, despite BNP 281 would opt for volume resus and assess need for diuretic in coming days if warranted #CAD Status post CABG 1995 -On Plavix and statin and beta-liliana -continue toprol #Paroxysmal atrial fibrillation #Sick sinus syndrome status post pacemaker -continue toprol and eliquis #Peripheral vascular disease #History of TIA secondary to bilateral carotid stenosis status post right CEA 02/2018 and left CEA 05/2018 -continue Plavix and statin #RLE swelling #Recent DVT of right lower extremity -Occurred after he stopped Eliquis for a port replacement LLE -Currently on Eliquis #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 #Status post total laryngectomy right neck dissection, subtotal -Currently On Keytruda and chemotherapu; last session 08/09 -Monitor for mucous plugging of tracheal stoma -Last admission was started on Prednisone taper for diarrheas from immunotherapy. Patient says currently taking prednisone 20mg daily Follow up oncology #thyroidectomy, acquired hypothyroidism -TSH pending continue synthroid #Dysphagia #Protein reji malnutrition reports needing some softer diet, noting issues with certain pills Speech consult for dysphagia eval and optimizing diet painter and decorator consult DVT PPX eliquis Full code per my discussion with pt and Admit PCU for aggressive suctioning, tele monitoring, and nursing care Admission and Anticipated Discharge Date Admission Date: Time spent evaluating patient, direct bedside care, chart review, placing orders, interpretation of diagnostic studies, discussion with consultants, patient, and family members, as well as other required patient management activities is 90 minutes. History of Present Illness Chief Complaint: Cough, Vomiting Primary Care Provider: Neto Rasheed MD Mr. 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 History gathered in collaboration between and patient. PAtient underwent chemotherapy (held Keytruda) on 08/09. He otherwise was doing fine, outside of ongoing weakness; however, last evening he noted that he was short of breath and trying to cough, but was unable to bring anything up, ultimately resulting in him vomiting. He woke this am feeling relatively alright, ate breakfast and some of his pills; however, found himself short of breath once more, coughing--and ultimately vomited again, prompting presentation to the ED. He denies nausea, abdominal pain, or changes to appetite. He states his appetite is overall poor and his ability to swallow is a bit challenged, resulting in more of a moist soft diet. He denies chest pain, palpitations, night sweats, orthopnea. He denies a chronic cough, but does reports that he feels like he has sputum that is a challenge to bring up, especially right now--the states she sees him work hard to bring it up, but it seems so thick it "just goes right back down." He endorses some subjective fever. He reports chronic diarrhea, however, he notes it is improving, though his stool is always loose and his bottom hurts from the bowel movements. He denies urinary concerns. He does report intermittent compliance with some of his medications; however, he has been compliant with his Eliquis. He denies any know sick contacts. He notes that his RLE is improving as far as edema. In the ED, vitals were notable for BP of 90-95/40-50 HR of 70-90 and O2 sat of 92 on room air then transitioned to trach collar, tachypnea 26 Labs revealed WBC to 18.15, stable anemia of 8.2, bun/cr ration 46.3, lactate 2.4, BNP 281 Flu/RS negative Imaging revealed stable CXR compare to multiple prior images, without signs of edema or overt congestion/consolidations EKG reviewed ED interventions: cefepime, 2L NS, IV tylenol, zofran Patient to be admitted to pcu for further evaluation and management of sepsis and acute hypoxic resp failure with concern for pulm source Allergies Allergy/AdvReac Type Severity Reaction Status Date / Time rosuvastatin [From Crestor] Allergy Unknown HAPPENED A Verified 08/13/24 15:17 LONG TIME AGO. Home Medications Medication Instructions Recorded Confirmed Type levothyroxine 125 mcg tablet 125 mcg PO DAILYBB 03/25/18 08/13/24 History nitroglycerin 0.4 mg sublingual 1 tab sublingual UD PRN Chest Pain 03/25/18 0 08/13/24 History tablet clopidogrel 75 mg tablet 75 mg PO QAM 06/03/18 08/13/24 History albuterol sulfate 2.5 mg/3 mL 2.5 mg inhalation QID PRN 08/19/19 08/13/24 History (0.083 %) solution for nebulization Shortness Of Breath Or Wheezing apixaban 5 mg tablet (Eliquis) 5 mg PO AMHS 09/13/21 08/13/24 History oxycodone-acetaminophen 5 mg-325 1 tab PO Q8H PRN pain #10 tabs 06/24/24 Rx mg tablet (Percocet) olanzapine 2.5 mg tablet 2.5 mg PO HS 07/24/24 08/13/24 History atorvastatin 40 mg tablet 40 mg PO DAILY 08/05/24 08/13/24 History diphenoxylate-atropine 2.5 1 tab PO QID PRN Diarrhea 08/05/24 08/13/24 History mg-0.025 mg tablet metoprolol succinate 25 mg 12.5 mg PO DAILY 08/05/24 08/13/24 History tablet,extended release 24 hr mirtazapine 15 mg tablet 15 mg PO HS 08/05/24 08/13/24 History pantoprazole 40 mg tablet,delayed 40 mg PO DAILY 08/05/24 08/13/24 History release paroxetine HCl 20 mg tablet (Paxil) 20 mg PO HS 08/05/24 08/13/24 History prednisone 10 mg tablets in a dose 40 mg (4 x 10 mg) PO DAILY 14 days 08/07/24 08/13/24 Rx pack #33 ea Past Med/Surg History Problem List (Updated 08/13/24 @ 19:35 by Hafsa Montoya MD) Current chronic use of systemic steroids Immunosuppressed due to chemotherapy Hematochezia Hypocalcemia (Acute) Elevated brain natriuretic peptide (BNP) level (Acute) Leukocytosis (Acute) Elevated troponin (Acute) Elevated lactic acid level (Acute) Nausea & vomiting (Acute) Acute dyspnea (Acute) Sepsis (Acute) Diarrhea (Acute) Elevated troponin (Acute) Generalized weakness (Acute) 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 Iron deficiency anemia (HFpEF) heart failure with preserved ejection fraction History of atrial fibrillation (Acute) Right leg swelling (Acute) Deep vein thrombosis (DVT) of right lower extremity (Acute) S/P vascular surgery Pressure ulcer, buttock Mucus plugging of bronchi (Acute) Mucus plug in respiratory tract (Acute) Leukocytosis (Acute) Depression Hypothyroidism (acquired) History of coronary artery disease History of atrial fibrillation Respiratory distress PVD (peripheral vascular disease) Abnormal computed tomography of abdomen and pelvis GI bleed Syncope Melena (Acute) Hematemesis (Acute) Elevated troponin (Acute) Elevated troponin 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) Anemia (Acute) Tracheostomy in place (Acute) Leukocytosis (Acute) Laryngeal cancer (Acute) Cellulitis (Acute) 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 (Acute) Severe sepsis Bacteremia due to Enterococcus (Acute) Sepsis Aspiration pneumonia (Acute) Aspiration pneumonia (Acute) Acute dyspnea (Acute) History of laryngectomy Aspiration pneumonia Multifocal pneumonia (Acute) Tracheostomy in place (Acute) Tracheobronchitis Hypoxia (Acute) SSS (sick sinus syndrome) (Chronic) History of CVA (cerebrovascular accident) (Chronic) February 2018, no deficits Tracheostomy in place (Acute) COPD (chronic obstructive pulmonary disease) Acute hypoxemic respiratory failure Peripheral eosinophilia Elevated troponin (Acute) Stenosis of left internal carotid artery History of cataract surgery (Chronic) H/O repair of right rotator cuff (Chronic) Anxiety (Chronic) 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 Symptoms were resolving by the time the patient arrived in the ED. 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 on CPAP no longer on CPAP post tracheostomy Surgical History Hx of laryngectomy (~1999) History of bronchoscopy History of tonsillectomy History of carotid endarterectomy RIGHT (MARCH 2018) History of cataract extraction with lens replacement cataract extraction with IOL implant and LRI left eye - 05/02/12 History of colonoscopy with polypectomy History of rotator cuff surgery Right - 2009 History of coronary artery bypass graft X2 VESSEL 1995 -- S LISS Family History Mother Essential hypertension Stroke Sister Cancer Breast cancer Daughter Cancer Colon cancer Social History Smoking Status: Former smoker Tobacco Type: Cigarettes Age Quit Using Tobacco: 55; packs per day: 2; Second Hand Exposure: No; Do You Dip or Chew Tobacco: No; Hx Alcohol Use: No Hx Substance Use: No Preferred Language: Uzbek Communication Ability: Effective Communication Ability Comment: write answers to questions, unable to talk Visual Impairment: No Limitations Hearing Ability: Normal Security Flex Officer Required: No Beliefs That Will Affect Care: None marital status: Current Living Situation: Spouse Current Living Situation Comment: home with spouse current occupational status: retired How many Children do You have: 2 How many Children do You have Comment: Son can help other: Home health nursing twice per week Feels Safe at Home: Yes Diet: regular during the past year weight has: decreased > 10 lbs Physical Activity Frequency: Does not Exercise Assistive Devices: None Review of Systems Review of Systems: Constitutional: (+) fever/chills, (-) recent loss of weight, (+) appetite changes, (-) night sweats. Head: (-) headache, (-) dizziness. Eye: (-) blurring of vision, (-) double vision, (-) redness. Ear: (-) hearing loss, (-) discharge, (-) vertigo Nose: (-) discharge, (-) bleeding, (-) congestion, (-) post nasal drip. Throat: (-) sore throat, (-) hoarseness of voice, (-) odynophagia. Cardiovascular: (-) chest pain, (-) palpitations, (-) syncope, (-) orthopnea, (- ) PND, (+) leg swelling R>L chronic Respiratory: (+) shortness of breath, (+) cough, (+) wheezing, (-) hemoptysis. Neuro: (-) weakness in extremities, (-) numbness, (-) tingling, (-) tremor. Gastrointestinal: (-) belly pain, (-) belly distension, (-) nausea, (-) vomiting, (++) diarrhea, (-) constipation, (-) na, (-) hematemesis, (+) hematochezia, (-) bowel incontinence Genitourinary: (-) hematuria, (-) dysuria, (-) polyuria, (-) hesitancy, (-) frequency, (-) urinary incontinence. Musculoskeletal: (-) myalgia, (-) arthralgia. Skin: (-) rashes. Endocrine: (-) heat/cold intolerance. Psychiatry: (-) depression, (-) hallucination. Physical Exam Physical Exam: GENERAL APPEARANCE: AxOx4, chronically ill appearing gentleman, pleasant however and in no distress HEENT: NC, AT. dry mucous membranes EOMI, clear conjunctiva, oropharynx clear. NECK: Supple without lymphadenopathy. stoma with no discharge visible HEART: Normal rate and regular rhythm, DORIAN++ LUNGS: coarse rhonchi R>L ABDOMEN: Soft, nontender, nondistended with good bowel sounds heard. BACK: No CVAT, no obvious deformity. EXTREMITIES: Without cyanosis, clubbing. RLE edema, nonpitting. NEUROLOGICAL: Grossly nonfocal. Alert and oriented, moving all 4 extremities. CN not formally tested but appear grossly intact. Skin: Warm and dry without any rash. Results & Data Results & Data Vital Signs (Past 12 Hours) Vital Signs Temp Pulse Pulse Resp BP BP Pulse Ox 08/13/24 15:09 91/44 L 08/13/24 15:03 70 22 99/45 L 99 08/13/24 14:10 78 08/13/24 14:00 95 08/13/24 13:18 36.3 C L 90 26 H 95/50 L 92 O2 Del Method 08/13/24 15:09 08/13/24 15:03 08/13/24 14:10 08/13/24 14:00 Room Air 08/13/24 13:18 Room Air Laboratory Results Short CBC 08/13/24 Range/Units 13:23 WBC 18.15 H (4.8-10.8) K/ul Hgb 8.2 L (14.0-18.0) g/dl Hct 26.8 L (42.0-52.0) % Plt Count 292 (130-400) K/uL BMP 08/13/24 13:23 Sodium 138 Potassium 3.9 Chloride 106 Carbon Dioxide 24 BUN 37 H Creatinine 0.80 Glucose 68 L Calcium 7.6 L Liver Function 08/13/24 Range/Units 13:23 Total Bilirubin 0.4 (0.2-1.0) mg/dl AST 20 (13-39) U/L ALT 27 (7-52) U/L Alkaline Phosphatase 87 (34-104) U/L Albumin 2.9 L (3.4-5.0) gm/dl Medications Administered Home Medications Medication Instructions Recorded Confirmed Last Taken levothyroxine 125 mcg tablet 125 mcg PO DAILYBB 03/25/18 08/13/24 08/13/24 08:00 nitroglycerin 0.4 mg sublingual 1 tab sublingual UD PRN Chest Pain 03/25/18 08/13/24 Unknown tablet clopidogrel 75 mg tablet 75 mg PO QAM 06/03/18 08/13/24 04/12/24 albuterol sulfate 2.5 mg/3 mL 2.5 mg inhalation QID PRN 08/19/19 08/13/24 01/13/20 (0.083 %) solution for nebulization Shortness Of Breath Or Wheezing polyethylene glycol 3350 17 gram 17 g PO DAILY PRN Constipation 11/02/20 08/13/24 10/30/20 oral powder packet (Miralax) apixaban 5 mg tablet (Eliquis) 5 mg PO AMHS 09/13/21 08/13/24 08/13/24 08:00 iron,carbonyl 65 mg-vitamin C 125 1 tab PO QAM 03/31/24 08/13/24 Unknown mg tablet,delayed release (Vitron-C) triamcinolone acetonide 0.1 % 1 applic topical BID 03/31/24 08/13/24 Unknown topical cream sodium chloride 7 % for 4 ml NEB BIDR PRN mucus plugging 04/02/24 08/13/24 Unknown nebulization #240 mL oxycodone-acetaminophen 5 mg-325 1 tab PO Q8H PRN pain #10 tabs 06/24/24 08/13/24 Unknown mg tablet (Percocet) olanzapine 2.5 mg tablet 2.5 mg PO HS 07/24/24 08/13/24 Unknown atorvastatin 40 mg tablet 40 mg PO DAILY 08/05/24 08/13/24 Unknown diphenoxylate-atropine 2.5 1 tab PO QID PRN Diarrhea 08/05/24 08/13/24 Unknown mg-0.025 mg tablet ferrous sulfate 325 mg (65 mg 325 mg PO DAILY 08/05/24 08/13/24 Unknown iron) tablet metoprolol succinate 25 mg 12.5 mg PO DAILY 08/05/24 08/13/24 Unknown tablet,extended release 24 hr mirtazapine 15 mg tablet 15 mg PO HS 08/05/24 08/13/24 Unknown pantoprazole 40 mg tablet,delayed 40 mg PO DAILY 08/05/24 08/13/24 08/13/24 08:00 release paroxetine HCl 20 mg tablet (Paxil) 20 mg PO HS 08/05/24 08/13/24 Unknown potassium chloride 10 mEq 10 meq PO DAILY 08/05/24 08/13/24 Unknown tablet,extended release tamsulosin 0.4 mg capsule 0.4 mg PO DAILY 08/05/24 08/13/24 Unknown prednisone 10 mg tablets in a dose 40 mg (4 x 10 mg) PO DAILY 14 days 08/07/24 08/13/24 Unknown pack #33 ea Active Medications Generic Name Dose Route Start Last Admin Trade Name Freq PRN Reason Stop Dose Admin Sodium Chloride 2,000 mls @ 999 mls/hr 08/13/24 15:15 08/13/24 15:30 Nss IV 08/13/24 17:15 999 mls/hr .Q2H1M ONE Administration
[2024-08-13] MEDS: DEXTROSE 50% 50 ML SYRINGE IV ONE (16:17)
[2024-08-13] MEDS: CALCIUM GLUCONATE 1,000 MG/60 ML BAG IV STA (16:17)
[2024-08-13 16:51] LABS: Thyroid Stimulating Hormone 8.142 uIu/ml (0.300-4.500)
[2024-08-13] MEDS ORDERED: LEVALBUTEROL HCL 0.63 MG/3 ML NEB NEB PRN ×2 (17:09→18:46)
--- NOTE | 2024-08-13 18:27 | Electrocardiogram Report ---
Test Reason : Blood Pressure : */* mmHG Vent. Rate : 91 BPM Atrial Rate : 83 BPM P-R Int : * ms QRS Dur : 90 ms QT Int : 344 ms P-R-T Axes : 89 78 -56 degrees QTcB Int : 423 ms Atrial-paced rhythm with occasional ventricular-paced complexes and with occasional sinus complexes a nd Premature supraventricular complexes Minimal voltage criteria for LVH, may be normal variant Abnormal ECG When compared with ECG of 06-Aug-2024 06:05, Electronic ventricular pacemaker has replaced Electronic atrial pacemaker Confirmed by Reginaldo Melgar ([id number]) on 08/13/2024 6:27:32 PM Referred By: Confirmed By: Reginaldo Melgar
[2024-08-13] MEDS: predniSONE 20 MG TAB PO STA (18:28)
--- OUTSIDE RECORDS SUMMARY | 2024-08-13 18:42 | External Medical Summary | Summary of Care ---
Author Name Unknown Organization [facility] Address [address] [place] [address] Phone [phone] Care Team Providers Care Email Specialist Name Role Phone Neto Rasheed MD Primary Care Provider + Reason for Referral * Evaluate & Treat - Unlimited Visits (Within 10 days (routine)) - Authorized Specialty Diagnoses / Procedures Referred By Ekaterina alcaraz Referred To Contact HOME CARE / Home Care Diagnoses Laryngeal cancer (HCC) Neto Rasheed MD [address] [place] [address] Phone: tel: fax: Referral ID Status Reason Start Date Expiration Date Visits Requested Visits Authorized [id number] Authorized Specialty Services Required 08/10/2024 999 999 Question Answer Referral Priority Within 10 days (routine) Where should this appointment be scheduled? Eulogio Comments Documentation of Cryb-vo-Fwnt Encounter Addendum Patient Name: Clinton Locke I certify that this patient is under my care and that I, or a nurse practitioner or physician's assistant director of security working with me, had a [id number] encounter that meets the physician jssb-ls-[id number] encounter requirements with this patient on: 08/01/24 The encounter with the patient was in whole, or in part, for the following medical condition, which is the primary reason for home health care (List medical condition): Convalescence from acute illness I certify that, based on my findings, the following services are medically necessary home health services: Physical Therapy To provide the following care/treatments: (All hospitalists not following the patient after discharge should complete this section): Physical therapy eval and treat Primary Care Physician to follow home care plan of care after discharge: Trev Rasheed MD My clinical findings support the need for the above services because: Hospital discharge/convalescence from illness Further, I certify that my clinical findings support that this patient is homebound (i.e. Absences from home require considerable and taxing effort and are for medical reasons or congregation services or infrequently or of short duration when for other reason) Physician Signature: Date of Signature: Physician Printed Name: Reason for Visit * Reason Onset Date Comments Order Request 08/08/2024 HH PT Encounter Details Date Type Department Care Team (Late st Contact Info) Description 08/08/2024 Telephone General Internal Medicine [facility] [address] [facility] [place] [address] Neto Rasheed MD [address] [facility] [place] [address] Order Request (HH PT) Allergies No known active allergiesdocumented as of this encounter (statuses as of 08/10/2024) Medications Misc. Devices MISC Cool mist humidification device 1 Each 05/02/19 Active Misc. Devices MISC Portable suction device 1 Each 05/02/19 20 Active Misc. Devices MISC Trach care cleaning kit 1 Each 05/02/19 20 Active Misc. Devices MISC Yankauer suction tips 10 Each 5 05/02/19 Active Misc. Devices MISC 12Fr flexible suction catheters 10 Each 5 01/06/20 20 Active Mis. Devices [facility] Inner cannulas for Shiley size 10 cuffless laryngectomy tube 10 Each 5 05/02/19 20 Active polyethylene glycol 3350 (MIRALAX) packet Take 1 Packet by mouth daily. 14 Each 05/02/19 20 Active Additional Information Patient taking differently:17 g OralDAILY PRN, Constipation, Informant: Patient, Reported on 08/01/2024 [facility]. [facility] Size 10 shiley laryngectomy tube 2 Each 5 08/09/19 20 Active Fluorouracil 5 % External Cream (Efudex)Indicati ons:Actinic keratosis Apply to rough spots on the scalp nightly x 2-4 weeks. 40 g 05/18/19 21 Active Additional Information Patient not taking.Reported on 08/01/2024 [facility]. Devices one ultra voice 1 Each 06/15/19 [...] Taper per oncology . 06/01/19 25 Active Ciprofloxacin HCl 500 MG Oral Tablet (Cipro) Take 1 Tablet by mouth in the morning and 1 Tablet before bedtime. 025 Active Amoxicillin-Pot Clavulanate 500-125 MG Oral Tablet (Augmentin) Take 1 Tablet by mouth in the morning and 1 Tablet before bedtime. 025 Active documented as of this encounter (statuses as of 08/10/2024) Active Problems Problem Noted Date Diagnosed Date [...] of gout 02/05/2012 CAD (coronary artery disease), [place] coronary a rtery 01/22/2012 Other voice [...] as of this encounter (statuses as of 08/10/2024) Resolved Problems Problem Noted Date Diagnosed Date [...] as of this encounter (statuses as of 08/10/2024) Immunizations Name Administration Dates Next Due COVID-19 mRNA, LNP-s, No Pre serve, 2-Dose Series (Referron) 03/29/2021,07/06/2020,06/15/2020 COVID-19, LNP-s, No Preserve , Evert-sucrose, [...] Industry Job Start Date Job End Date [employer] Not on file Not on file Not [...] encounter Miscellaneous Notes * Telephone Encounter - Cierra Grijalva CCMA - 08/10/2024 11:02 AM EDT Referral taken care of * Telephone Encounter - Neto Rasheed MD - 08/10/2024 10:37 AM EDT Yes, signed, pls fax * Telephone Encounter - Loreta Schmidt RN - 08/08/2024 1:53 PM EDT Provider to address: Reason for Call: Order Request (HH PT) Contact: Telephone Call Contact Type: Referral(s) Placed Provider In-Basket: Yes Outcome: Spoke with patients , Tiffany. Tariq was admitted to the hospital over the weekend with a uti. They are declining scheduling a hosp f/u appt as he had a hosp d/c appt last week. Tiffany is asking fora referral for home PT as tariq is deconditioned from having 2 hospitalizations in a short period. They had good results with [facility] home health in the past. Pended referral for Home health PT, if agreeable Dr Rasheed? Thank you! Face to face time spent with Patient (minutes): 0 Total Time including non face to face (minutes): 10 documented in this encounter Plan of Treatment Upcoming Encounters Date Type Department Care Team (Late st Contact Info) Description 11/30/2024 11:00 AM EDT Cardiac Studies Cardiac Studies, [facility] [address] [place] [phone] 03/16/2025 3:00 PM EST Office Visit General Internal Medicine [facility] [address] [facility] [place] [address] Neto Rasheed MD [address] [facility] [place] [id number] Scheduled Referrals Name Type Priority Associated Diagnoses Orde r Schedule HOME HEALTH REFERRAL OP Referral Within 10 days (routine) Laryngeal cancer (HCC) Ordered: 08/10/2024 Health Maintenance Due Date Last Done Comments [...] this encounter Medical Devices Implanted Type Area Wall Insulation Sprayer Device Identifier Shelf Expiration Date Model / Serial / Lot Woundmatrix Fenstr [id number] (150 Units) - [id number] - [id number] Implanted:Qty: 150 on 04/18/2019 by Hayden Fleming MD at [place] [facility] [place] Left: Leg Upper [employer] [id number] 01/25/2020 [id number] / [id number] / [id number] Indwelling Voice Prosthesis Implanted:Qty: 1 on 10/26/2019 by Hayden Fleming MD at OR [facility] [place] N/A: Throat 08/16/2021 1616-NS / / [id number] Description:INHE[employer] TECHNOL OGIES REF : IN 1616-NS (HECTOR-ALONZO) CLASSIC INDWELLING VOICE PROSTHESIS WITH INSERTION / CLEANING ACCESSORIES documented as of this encounter Visit Diagnoses Diagnosis Laryngeal cancer (HCC)- Primary Malignant neoplasm of larynx, unspecified site documented in this encounter Advance Directives Documents on File Type Date Recorded 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 Care Teams Email Specialist Relationship Specialty Start Date End Date Neto Rasheed MD [address] [facility] [place] [address] PCP - General Internal Medicine 02/14/21 documented as of this encounter
[2024-08-13] MEDS ORDERED: VANCOMYCIN CONSULT ACTIVE PRN (18:43)
[2024-08-13] MEDS ORDERED: VANCOMYCIN HCL 1,500 MG in SODIUM CHLORIDE 0.9% 500 ML IV ONE (18:43)
[2024-08-13] MEDS ORDERED: GLUCOSE 40% GEL 15 GM TUBE PO PRN (18:50)
[2024-08-13] MEDS ORDERED: DEXTROSE 50% 50 ML SYRINGE IV PRN (18:50)
[2024-08-13] MEDS ORDERED: GLUCAGON FOR INJ 1 MG VIAL SQ PRN (18:50)
[2024-08-13] MEDS ORDERED: GLUCOSE 10 TAB/TUBE PO PRN (18:50)
[2024-08-13] MEDS: ALBUT/IPRATROP 3MG/0.5MG NEB 3 ML VIAL NEB SCH (19:42)
[2024-08-13] MEDS: SODIUM CHLOR 7% 4 ML NEB NEB SCH (19:43)
[2024-08-13 19:52] LABS: Hematocrit (blood only) 25.8 % (42.0-52.0); Hemoglobin 7.9 g/dl (14.0-18.0)
[2024-08-13] MEDS: PIPERACILLIN/TAZOBACTAM 4.5 GM/100 ML BAG IV ONE (20:09)
[2024-08-13] MEDS: SODIUM CHLORIDE 0.9% 1,000 ML IV SCH (20:11)
[2024-08-13] MEDS: APIXABAN 5 MG TABLET PO SCH (20:26)
[2024-08-13] MEDS: PARoxetine HCL 20 MG TAB PO SCH (20:27)
[2024-08-13] MEDS: OLANZAPINE 2.5 MG TAB PO SCH (20:27)
[2024-08-13] MEDS: PANTOprazole 40 MG/10 ML SYR IV SCH (20:28)
[2024-08-13] MEDS: guaiFENesin SUGAR FREE 200 MG/10 ML UDC PO SCH (20:28)
[2024-08-13 20:35] LABS: T4 Free Thyroxine 0.92 ng/dl (0.61-1.60)
[2024-08-13] MEDS: VANCOMYCIN HCL 1,750 MG in SODIUM CHLORIDE 0.9% 500 ML IV STA (20:59)
[2024-08-13] MEDS: TAMSULOSIN HCL 0.4 MG CAP PO SCH (20:59)
[2024-08-13] MEDS: CARBOHYDRATES FOR HYPOGLYCEMIA PO PRN (21:25)
--- NOTE | 2024-08-13 22:44 | CT Scan Report ---
EXAM: CT chest diagnostic wo con CLINICAL HISTORY: AHRF,CXR unrevealing TECHNIQUE: Contiguous axial CT images of the chest were acquired without administration of intravenous contrast. Coronal and sagittal reconstructions were obtained. One of the following dose reduction techniques were utilized for this exam: Automated exposure control, adjustment of the mA and/or kV according to patient size, use of iterative reconstruction. DLP: 736.98 mGy-cm, CTDI: 19.3 mGy. COMPARISON: CR same date 08/13/2024 reviewed FINDINGS: Lungs: Multifocal clustered areas of centrilobular nodules and bronchovascular distribution scattered in right lung with small patchy areas of consolidation numerical segment of right upper lobe, representing acute infectious etiology with endobronchial spread of infection. Minimal right sided pleural effusion. Few small calcified nodules in right lung, sequelae to prior infection. Thin subpleural fibroatelectatic changes in both lungs. Tiny 2-2.5 mm subpleural nodules in left lung. No pleural effusion on left. Mediastinum: No mediastinal mass or abnormal lymphadenopathy. Heart size is normal. Pacemaker leads in situ. Trachea and Main Bronchi: Tracheostomy noted. Chest Wall: Median sternotomy status. Bone: Severe degenerative changes in thoracic spine. Upper Abdomen: Bilateral renal cortical cysts. Fecal loading of visualized colon. IMPRESSION: 1. Multifocal clustered areas of centrilobular nodules and bronchovascular distribution scattered in right lung with small patchy areas of consolidation and involving a segment of right upper lobe, representing acute infectious etiology with endobronchial spread of infection. Recommended clinical correlation 2. Minimal right-sided pleural effusion. Electronically signed by Pastor Vasquez 08-13-2024 10:44 PM
--- NOTE | 2024-08-14 00:01 | Communication Note ---
Date of Service: August 14, 2024 Hemoglobin drop drop from 8.8 to 6.6. Admitting provider recommended: Hold Eliquis and Plavix with progressive anemia from LGIB Consult vascular surgery in a.m. for IVC filter placement evaluation, recent RLE DVT (06/2024) with current contraindication to anticoagulation.
[2024-08-14] MEDS: PIPERACILLIN/TAZOBACTAM 4.5 GM/100 ML BAG IV SCH (00:27)
[2024-08-14 00:36] LABS: Appearance Urine Clear (Clear); Bacteria Urine Automated None Seen (None Seen); Bilirubin Urine Negative (Negative); Blood Urine Negative (Negative); Color Urine Yellow; Epithelial Cell Urine Auto 0-2 /hpf (0-2); Glucose Urine UA Negative (Negative); Hyaline Casts Urine Present /lpf (None Presnt); Ketones Urine Negative (Negative); Leukocyte Esterase Urine Negative (Negative); Mucus Urine Present (None Prsent); Nitrite Urine Negative (Negative); Protein Urine 1+ (Negative); RBC Urine Automated 0-2 /hpf (0-2); Specific Gravity Urine 1.021 (1.000-1.030); Urobilinogen Urine Negative (Negative); WBC Urine Automated 0-5 /hpf (0-5)
[2024-08-14 00:46] LABS: Hematocrit (blood only) 21.1 % (42.0-52.0); Hemoglobin 6.6 g/dl (14.0-18.0)
[2024-08-14] MEDS: HYDROCORTISONE HC 2.5% CRM 30GM TUBE EXT ONE (00:54)
[2024-08-14] MEDS ORDERED: SODIUM CHLORIDE 0.9% 100 ML IV PRN (00:55)
[2024-08-14] MEDS: Nursing to Pharmacy Communication SCH (05:52)
[2024-08-14] MEDS: LEVOTHYROXINE SODIUM 125 MCG TABLET PO SCH (06:10)
[2024-08-14] MEDS: PIPERACILLIN/TAZOBACTAM 4.5 GM/100 ML BAG IV ONE (06:46)
[2024-08-14] MEDS: 5% GLUCOSE AND NSS 1,000 ML IV ONE (06:47)
[2024-08-14 08:13] LABS: Hemoglobin 8.4 g/dl (14.0-18.0); Mean Corpuscular Hemoglobin 29.1 pg (25.0-34.0); Mean Corpuscular Hgb Conc 33.6 g/dL (32.0-36.0); Mean Corpuscular Volume 86.5 fL (80.0-100.0); Mean Platelet Volume 9.7 fL (9.4-12.4); Platelet Count 199 K/uL (130-400); RDW Coefficient of Variation 17.2 % (11.5-14.5); RDW Standard Deviation 54.1 fL (36.4-46.3); Red Blood Count 2.89 M/uL (4.70-6.10)
[2024-08-14 08:20] LABS: BUN Creatinine Ratio 39.5 (10-20); Calcium 7.2 mg/dl (8.6-10.3); Magnesium 1.8 mg/dl (1.7-2.4); Phosphorus 2.8 mg/dl (2.5-4.9); Potassium 4.5 mmol/L (3.5-5.1)
[2024-08-14 08:39] LABS: Ferritin 295.2 ng/ml (8-388)
[2024-08-14 08:45] LABS: Folate (Folic Acid),Ser orPlas 18.96 ng/ml (>5.38)
[2024-08-14] MEDS ORDERED: CLOPIDOGREL BISULFATE 75 MG TAB PO SCH (09:00)
[2024-08-14] MEDS: VANCOMYCIN 750 MG in SODIUM CHLORIDE 0.9% 250 ML IV SCH (09:08)
[2024-08-14] MEDS: METOPROLOL SUCC 25MG EXT REL TAB PO SCH (09:22)
[2024-08-14] MEDS: predniSONE 20 MG TAB PO SCH (09:23)
[2024-08-14] MEDS: ATORVASTATIN 40 MG TAB PO SCH (09:23)
--- NOTE | 2024-08-14 11:29 | Pharmacy Report ---
Pharmacy PK ABX Note - Date of Service August 14, 2024 - Assessment and Plan Assessment * 84 year old M receiving pip/tazo and vancomycin for treatment of possible CAP. * PMH: immunocompromised on chemotherapy, laryngectomy, trach * Pertinent microbiologic data includes: negative MRSA nasal swab. Blood and sputum/trach culture pending. Plan Vancomycin * Loading dose: 1750 mg IV x 1 * Maintenance dose: 750 mg IV every 12 hours * Regimen is predicted to achieve target AUC/AURORA of 400-600 mg/L.hr * Random level ordered for 08/15 AM Pharmacy will continue to follow and will adjust dose/frequency as necessary. Thank you. Pharmacy has transitioned to AUC monitoring for vancomycin. AUC/AURORA is the preferred PK/PD target and is associated with decreased risk of nephrotoxicity compared to traditional trough targets.
--- NOTE | 2024-08-14 12:43 | Hospitalist Progress Note ---
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 Patient with acute on chronic anemia appears to be somewhat iron deficiency possibly some blood loss from the GI track as well. Reviewed previous sputum cultures, Pseudomonas and MSSA, continue Zosyn MRSA screen negative, can discontinue vancomycin Continue to monitor hemoglobin, transfuse as not needed Plavix and Eliquis on hold due to significant anemia. Ocular surgery consultation placed to consider possible IVC filter in the setting of known lower extremity DVT Patient has had TSH checked 6 times already this year, 3 times within the past 3 days. We getting various and wide ranges in the TSH value. Free T4 is within normal range. Will not change his Synthroid dosing at this time. Would recommend not rechecking TSH until patient's medical status is stabilized and approximately 6 to 8 weeks from now. Can advance diet, n.p.o. after midnight for possible IVC filter placement Patient has ruled out for C. difficile colitis, continue to monitor stools, can use low noodle as needed Continue to titrate oxygen as able Continue mucolytic's and antitussives and respiratory therapies Updated via phone Admission and Anticipated Discharge Date Admission Date: August 13, 2024 Subjective Patient continues with a lot of secretions. Significant drop in hemoglobin with fluid resuscitation. Patient denies significant bleeding from rectum. Nursing reports significant diarrhea. Transfuse blood overnight. Physical Exam Physical Exam: Constitutional: Alert, nontoxic HEENT: Mucous membranes moist., Tracheostomy, thick purulent secretions coming from tracheostomy Lungs: Decreased breath sounds, coarse rhonchi CV: S1-S2, regular Abdomen: Soft, nontender, nondistended Extremities: No significant edema Neuro: No focal deficits Psych: Cooperative, normal mood Results & Data Results & Data Vital Signs (Past 12 Hours) Vital Signs Temp Pulse Pulse Resp BP BP BP 08/14/24 10:47 36.7 C 94 H 18 134/64 08/14/24 08:54 132 H 08/14/24 08:00 08/14/24 07:22 38.1 C H 81 18 134/44 L 08/14/24 07:20 38.1 C H 81 18 134/44 L 08/14/24 07:19 78 22 08/14/24 06:49 37.5 C 102 H 20 154/75 H 08/14/24 05:36 67 08/14/24 05:28 37.1 C 67 20 121/58 L 08/14/24 04:58 37.1 C 71 20 133/72 08/14/24 04:43 37.1 C 70 22 122/50 L 08/14/24 04:26 37.5 C 70 22 117/47 L 08/14/24 04:21 37.5 C 70 22 117/47 L 08/14/24 04:00 37.7 C H 87 24 145/62 H 08/14/24 03:30 37.2 C 95 H 20 142/68 H 08/14/24 03:30 37.2 C 95 H 20 142/68 H 08/14/24 02:37 37.2 C 77 20 139/53 L 08/14/24 02:07 36.7 C 67 20 118/67 08/14/24 01:52 37.0 C 63 20 104/49 L 08/14/24 01:44 69 18 08/14/24 01:30 36.5 C 64 20 111/44 L Pulse Ox O2 Del Method O2 Flow Rate FiO2 08/14/24 10:47 100 Trach Collar 08/14/24 08:54 08/14/24 08:00 Trach Collar 08/14/24 07:22 100 Trach Collar 6 08/14/24 07:20 100 Trach Collar 08/14/24 07:19 100 Trach Collar 6 28 08/14/24 06:49 100 08/14/24 05:36 08/14/24 05:28 100 08/14/24 04:58 100 08/14/24 04:43 100 6 08/14/24 04:26 100 6 08/14/24 04:21 100 6 08/14/24 04:00 98 Trach Collar 6 08/14/24 03:30 100 08/14/24 03:30 100 08/14/24 02:37 100 6 08/14/24 02:07 100 08/14/24 01:52 100 7 08/14/24 01:44 100 Trach Collar 7 28 08/14/24 01:30 100 Diagnostic Findings Reviewed imaging, laboratory and diagnostic studies. Pertinent findings as below. Hemoglobin 8.4 status post PRBCs x 2 WBC 6.0, significantly improved Electrolytes stable Creatinine 0.81 Iron studies reviewed B12 folate within normal ranges Procalcitonin 0.08 Random cortisol 12.4 (9) Deep vein thrombosis (DVT) of right lower extremity Affected thrombotic vein of extremity: femoral Chronicity: acute Qualified Code(s): I82.411 - Acute embolism and thrombosis of right femoral vein (11) Hypothyroidism Hypothyroidism type: acquired Qualified Code(s): E03.9 - Hypothyroidism, unspecified
[2024-08-14] MEDS: DIPHENOXYLATE/ATROPINE 2.5/0.025MG TAB PO PRN (12:54)
[2024-08-14] MEDS: oxyCODONE/ACETAMINOPHEN 5mg/325mg TAB PO PRN (19:32)
[2024-08-14] MEDS: PANTOprazole 40 MG TAB PO SCH (19:33)
[2024-08-15 06:51] LABS: Hematocrit (blood only) 23.4 % (42.0-52.0); Hemoglobin 7.7 g/dl (14.0-18.0); Mean Corpuscular Hemoglobin 29.2 pg (25.0-34.0); Mean Corpuscular Hgb Conc 32.9 g/dL (32.0-36.0); Mean Corpuscular Volume 88.6 fL (80.0-100.0); Mean Platelet Volume 9.8 fL (9.4-12.4); Platelet Count 136 K/uL (130-400); RDW Coefficient of Variation 17.2 % (11.5-14.5); RDW Standard Deviation 56.1 fL (36.4-46.3); Red Blood Count 2.64 M/uL (4.70-6.10); White Blood Count 2.01 K/ul (4.8-10.8)
[2024-08-15 07:00] LABS: BUN Creatinine Ratio 36.4 (10-20); Creatinine Clr Calc Pharmacy 74.7 ml/min; Phosphorus 3.1 mg/dl (2.5-4.9); Potassium 4.4 mmol/L (3.5-5.1)
[2024-08-15] MEDS: predniSONE 10 MG TABLET PO SCH (08:59)
--- NOTE | 2024-08-15 11:05 | Gastrointestinal Consultation ---
<Statement entered by Neil Lowe MD - 08/15/24 16:28> I have reviewed the history, physical exam, lab and imaging findings as dictated by the mid-level provider, made any necessary modifications, and agree with the stated assessment and recommendations. A total of 55 minutes was spent in the chart/data review, direct observation, decision making and discussion of this case with the mid level provider, patient/family and other providers. Date of Consultation August 15, 2024 Assessment & Plan (1) Acute on chronic anemia: Anemia likely multifactorial; no overt bleeding; could be slow GI losses bujt yield of investigation fairly low at this point. -Continue to monitor H/H -Monitor for overt GI bleeding -Continue IV PPI -From a GI standpoint, would approach conservatively while primary team treats his sepsis/respiratory failure. He is getting an IVC filter due to DVT. History of Present Illness Reason for Consultation: "GIB" Attending Physician: Nino Lai MD History of Present Illness Patient is an 84 yo male currently admitted with severe sepsis with respiratory failure concerning for pneumonia based on sputum cultures, as well as demand ischemia of the myocardium. GI has been consulted as patient has worsening of his chronic anemia. H/H 7.7/23.4. Per RN, patient has not had overtly bloody stool or hematemesis. He is on Plavix and Eliquis and this was held. He has a lower extremity DVT and is awaiting IVC filter for this. He has reportedly been experiencing diarrhea. C diff negative. Stool PCR negative. He has a history of laryngeal cancer status post laryngectomy and neck dissection, subtotal thyroidectomy, s/p radiation and is currently undergoing chemotherapy. He notes a history of EGD & colonoscopy in the past, but unclear when as I do not have copies of these reports. Patient reports they were normal. Iron level 165. MCV 88.6. CT abdomen/pelvis: IMPRESSION: 1. Rectum is distended with stool. There is moderate retained stool otherwise. There is mildly prominent wall enhancement at the small bowel, normal variation versus mild enteritis. No other bowel inflammation or obstruction seen. 2. Increased size of right inguinal mass and right inguinal adjacent lymph node. Decreased size of the far lateral right anterior pelvic mass. 3. Otherwise as described. Allergies Allergy/AdvReac Type Severity Reaction Status Date / Time rosuvastatin [From Crestor] Allergy Unknown HAPPENED A Verified 08/13/24 15:17 LONG TIME AGO. Home Medications Medication Instructions Recorded Confirmed Type levothyroxine 125 mcg tablet 125 mcg PO DAILYBB 03/25/18 08/13/24 History nitroglycerin 0.4 mg sublingual 1 tab sublingual UD PRN Chest Pain 03/25/18 08/13/24 History tablet clopidogrel 75 mg tablet 75 mg PO QAM 06/03/18 08/13/24 History albuterol sulfate 2.5 mg/3 mL 2.5 mg inhalation QID PRN 08/19/19 08/13/24 History (0.083 %) solution for nebulization Shortness Of Breath Or Wheezing apixaban 5 mg tablet (Eliquis) 5 mg PO AMHS 09/13/21 08/13/24 History oxycodone-acetaminophen 5 mg-325 1 tab PO Q8H PRN pain #10 tabs 06/24/24 08/13/24 Rx mg tablet (Percocet) olanzapine 2.5 mg tablet 2.5 mg PO HS 07/24/24 08/13/24 History atorvastatin 40 mg tablet 40 mg PO DAILY 08/05/24 08/13/24 History diphenoxylate-atropine 2.5 1 tab PO QID PRN Diarrhea 08/05/24 08/13/24 History mg-0.025 mg tablet metoprolol succinate 25 mg 12.5 mg PO DAILY 08/05/24 08/13/24 History tablet,extended release 24 hr mirtazapine 15 mg tablet 15 mg PO HS 08/05/24 08/13/24 History pantoprazole 40 mg tablet,delayed 40 mg PO DAILY 08/05/24 08/13/24 History release paroxetine HCl 20 mg tablet (Paxil) 20 mg PO HS 08/05/24 08/13/24 History prednisone 10 mg tablets in a dose 40 mg (4 x 10 mg) PO DAILY 14 days 08/07/24 08/13/24 Rx pack #33 ea tamsulosin 0.4 mg capsule 0.4 mg PO HS 08/13/24 08/13/24 History Patient History Medical History S/P radiation therapy Thyroid disease Back problem Moderate aortic stenosis Acute electrocardiogram changes Difficult airway for intubation H/o glidescope #4 with CEA 03/2018 Carotid artery stenosis with cerebral infarction over 8 weeks ago The patient presented to [facility] ED on 03/26/18 with expressive aphasia, left upper extremity numbness, left lower extremity weakness. Symptoms were resolving by the time the patient arrived in the ED. 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 on CPAP no longer on CPAP post tracheostomy Surgical History Hx of laryngectomy (~1999) History of bronchoscopy History of tonsillectomy History of carotid endarterectomy RIGHT (MARCH 2018) History of cataract extraction with lens replacement cataract extraction with IOL implant and LRI left eye - 05/02/12 History of colonoscopy with polypectomy History of rotator cuff surgery Right - 2009 History of coronary artery bypass graft X2 VESSEL 1995 -- Himanshu LEIJA Family History Mother Essential hypertension Stroke Sister Cancer Breast cancer Daughter Cancer Colon cancer Social History Smoking Status: Former smoker Tobacco Type: Cigarettes Age Quit Using Tobacco: 55; packs per day: 2; Second Hand Exposure: No; Do You Dip or Chew Tobacco: No; Tobacco Cessation Education Requested by Patient: No Hx Alcohol Use: No Hx Substance Use: No Preferred Language: Thai Communication Ability: Impaired Communication Ability Comment: laryngeal stoma Visual Impairment: No Limitations Hearing Ability: Normal 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 Beliefs That Will Affect Care: None marital status: Current Living Situation: Spouse Current Living Situation Comment: home with spouse current occupational status: retired How many Children do You have: 2 How many Children do You have Comment: Son can help Other Information That Helps Us Care for You: No other: Home health nursing twice per week Feels Safe at Home: No Is there a partner from a previous relationship who is making you feel unsafe now?: No Any Concerns about Your Family Situation: No Would You Like to Speak to Someone About Your Situation: No Safety Concerns: Feels Safe At This Time Diet: regular during the past year weight has: decreased > 10 lbs Physical Activity Frequency: Does not Exercise Assistive Devices: Cane and Walker Review of Systems Constitutional: no fever and no chills Respiratory: no cough and no dyspnea Cardiovascular: no chest pain Gastrointestinal: + diarrhea/loose stools; no abdominal pa in, no change in bowel habits, no blood in stools and no melena Physical Exam Constitutional: well developed Respiratory: no respiratory distress Cardiovascular: Rate/Rhythm: regular rate Gastrointestinal (Abdomen): normal bowel sounds, soft, nontender, no hepatosplenomegaly Psychiatric: Orientation: alert and oriented x 3 Results & Data Vital Signs (Past 12 Hours) Vital Signs Temp Pulse Resp BP BP Pulse Ox O2 Del Method 08/15/24 10:47 36.7 C 65 19 110/52 L 98 Trach Collar 08/15/24 08:00 Trach Collar 08/15/24 07:17 36.7 C 64 19 131/86 98 Trach Collar 08/15/24 07:09 60 16 99 Trach Collar 08/15/24 03:24 36.4 C L 73 18 120/68 100 Trach Collar 08/15/24 02:06 68 17 96 Trach Collar 08/15/24 00:00 36.4 C L 62 20 115/63 99 Trach Collar O2 Flow Rate FiO2 08/15/24 10:47 08/15/24 08:00 6 21 08/15/24 07:17 08/15/24 07:09 6 21 08/15/24 03:24 6 08/15/24 02:06 6 28 08/15/24 00:00 PG Care Time/CCT Total # of Minutes Spent Total Time Spent with Patient: Total time spent is greater than 50% in coordination of care (as documented) at patient's floor/unit and/or counseling patient: Coding Level of Care Code 45366 INT INP/OBS CARE 3/75MIN Diagnoses Acute on chronic anemia D64.9
--- NOTE | 2024-08-15 11:34 | Hospitalist Progress Note ---
Date of Service August 15, 2024 Assessment & Plan (1) Sepsis: (2) Acute hypoxemic respiratory failure: (3) Mucus plug in respiratory tract: (4) Hematochezia: (5) Immunosuppressed due to chemotherapy: (6) Current chronic use of systemic steroids: Plan Mr. 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 Patient with sepsis however, does not appear overtly toxic on exam. Leukocytosis possible iso mucous plugging as well as steroid taper initiated on 08/07; tachypnea iso possible secretions--patient doesnt use home hypertonic nebs, so again possibly poor secretion mgmt at home; chronic steroids could be contributing to hypotension. Ultimately, patient is still high risk for infection, therefore infectious work up pending with broad spectrum abx ongoing, as well as aggressive resp toilet. Recent admissions [facility] 07/24- for right lower leg swelling +dvt, saw heme/onc who he sees for metastatic cancer, felt likely when stopped Eliquis for left leg port. [facility] 08/05- for diarrhea and hypotension #Severe Sepsis, concern for pulm source #Acute hypoxic respiratory failure #Increased secretions, concern for mucous plugging v developing infection given recent admissions/immunosuppressed v pneumonitis developing? #immunocompromised on chemotherapy Appreciate speech therapy evaluation and recommendation CXR unrevealing, procal 0.08 CT chest shows patchy area of consolidation involving a segment of the right upper lobe likely infectious Continue previously prescribed steroid burst Continue with zosyn for now MRSA nare ordered, vanc in interim, discontinue as able blood cultures - have been negative sputum culture ordered - normal adriana UA - unremarkable s/p 2 L, continue NS @80cc/hr close monitoring of fluid status 2/2 HFpEF and aortic stenosis hx Hypertonic saline nebs BID, duonebs q6h Xopenex prn Chest pt with cough assist and frequent suctioning Clinically better and denies any significant symptoms except back spasm #Chronic Diarrhea #hematochezia #Chronic Normocytic Anemia recent admission in 06/2024 for ongoing diarrhea, thought to be related to ongoing therapies, s/p multiple tapers of steroids -Hemoglobin baseline around 8 since 05/2024 episode of "small drops of blood" per nursing in diaper, mixed with diarrhea BP stable in 90-100s, HR in 80s Reports discomfort with bm 2/2 ongoing diarrhea thought to be secondary to ongoing immunotherapies Hemocult positive B12, folate, fe and ferritin for optimization IV PPI and CLD for now --advance diet Anusol to anus for comfort Hemoglobin dropped to 6.6 and the patient required 2 units of blood transfusion Anticoagulation has been on hold Will get GI evaluation before restarting anticoagulation #Hypotension #Weakness #Chronic Steroid Use Gentle IVF as above PT/OT Concern for possible impending iatrogenic adrenal insufficiency as patient has received multiple doses of steroids Random cortisol - unremarkable Continue recently prescribed steroid tapers (started 40mg x 5 days on 08/07, now on 20mg x 5 days (EOT 08/15) then 10 mg x2 days, 5mg x2 days #Elevated troponin, potentially demand iso acute illness, hypoxia ?pneumonitis, dehydration, known CAD Troponin chronically elevated in 20-30s on admission 36, likely multifactorial however, low suspicion for ACS Trend troponin q6h to peak Monitor on tele #Pressure ulcer, POA wound care consult #Moderate aortic stenosis #Chronic Heart failure with preserved ejection fraction ECHO 11/2023 with EF 55-59%, follows cards op -continue IV fluids iso sepsis, monitor for volume overload appears dry and with elevated Lactate, despite BNP 281 would opt for volume resus and assess need for diuretic in coming days if warranted #CAD -Status post CABG 1995 -On Plavix and statin and beta-liliana -continue toprol Plavix is on hold now #Paroxysmal atrial fibrillation #Sick sinus syndrome status post pacemaker -continue toprol -Eliquis has been on hold #Peripheral vascular disease #History of TIA secondary to bilateral carotid stenosis status post right CEA 02/2018 and left CEA 05/2018 -continue Plavix and statin #RLE swelling #Recent DVT of right lower extremity -Occurred after he stopped Eliquis for a port replacement LLE - appreciate vascular surgery input and recommendation -Will have IVC filter placement tomorrow #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 #Status post total laryngectomy right neck dissection, subtotal -Currently On Keytruda and chemotherapu; last session 08/09 -Monitor for mucous plugging of tracheal stoma -Last admission was started on Prednisone taper for diarrheas from immunotherapy. Patient says currently taking prednisone 20mg daily Follow up oncology as an outpatient #thyroidectomy, acquired hypothyroidism -TSH pending- a little elevated continue synthroid #Dysphagia #Protein reji malnutrition reports needing some softer diet, noting issues with certain pills Speech consult for dysphagia eval and optimizing diet parts fabricator consult DVT -SCDs for now Full code per my discussion with pt and Admit PCU for aggressive suctioning, tele monitoring, and nursing care Admission and Anticipated Discharge Date Admission Date: August 13, 2024 Subjective 08/15/2024 The patient was seen and examined in telemetry unit He has been complaining of back spasm without significant pain Has had bowel movement but denies any melena and no nausea or vomiting Denies any chest pain, palpitation or shortness of breath Review of Systems Review of Systems: All systems reviewed and unremarkable except as noted below Physical Exam Physical Exam: Lying in bed without any acute distress Constitutional: + ill appearing and average body habitus Eyes: PERRL, conjunctivae normal, anicteric sclerae ENMT: external ear and nose normal, oropharynx normal Neck: Status post tracheostomy tubes Respiratory: no respiratory distress Auscultation: lungs clear to auscultation bilaterally Cardiovascular: Rate/Rhythm: regular rate and regular rhythm; not tachycardic Heart Sounds: normal S1, normal S2 and + murmur Extremities: no edema Gastrointestinal (Abdomen): Inspection/Auscultation: normal bowel sounds; abdomen not distended Percussion/Palpation: abdomen soft; abdomen nontender Musculoskeletal: No acute arthritis involving any of the joint Neurologic: normal touch/pain/proprioception and moves all extremities; no focal motor deficits Lymphatic: no cervical or axillary lymphadenopathy Results & Data Results & Data Vital Signs (Past 12 Hours) Vital Signs Temp Pulse Resp BP BP Pulse Ox O2 Del Method 08/15/24 10:47 36.7 C 65 19 110/52 L 98 Trach Collar 08/15/24 08:00 Trach Collar 08/15/24 07:17 36.7 C 64 19 131/86 98 Trach Collar 08/15/24 07:09 60 16 99 Trach Collar 08/15/24 03:24 36.4 C L 73 18 120/68 100 Trach Collar 08/15/24 02:06 68 17 96 Trach Collar 08/15/24 00:00 36.4 C L 62 20 115/63 99 Trach Collar O2 Flow Rate FiO2 08/15/24 10:47 08/15/24 08:00 6 21 08/15/24 07:17 08/15/24 07:09 6 21 08/15/24 03:24 6 08/15/24 02:06 6 28 08/15/24 00:00 Laboratory Results Short CBC 08/15/24 Range/Units 05:44 WBC 2.01 L (4.8-10.8) K/ul Hgb 7.7 L (14.0-18.0) g/dl Hct 23.4 L (42.0-52.0) % Plt Count 136 (130-400) K/uL BMP 08/15/24 05:44 Sodium 137 Potassium 4.4 Chloride 108 H Carbon Dioxide 25 BUN 28 H Creatinine 0.77 Glucose 78 Calcium 7.0 L Medications Administered Current Inpatient Medications Acetaminophen (Acetaminophen 325 Mg Tab) 650 mg PO Q4H PRN PRN Reason: Pain or Fever Stop: 09/12/24 17:15 Albuterol (Albut/Ipratrop 3mg/0.5mg Neb 3 Ml Vial) 3 ml NEB Q6R HUNG; Protocol Stop: 09/12/24 18:59 Last Admin: 08/15/24 07:09 Dose: 3 ml Apixaban (Apixaban 5 Mg Tablet) 5 mg PO BID HUNG Stop: 09/12/24 20:59 Last Admin: 08/13/24 20:26 Dose: 5 mg Atorvastatin Calcium (Atorvastatin 40 Mg Tab) 40 mg PO DAILY HUNG Stop: 09/13/24 08:59 Last Admin: 08/15/24 08:59 Dose: 40 mg Clopidogrel Bisulfate (Clopidogrel Bisulfate 75 Mg Tab) 75 mg PO QAM [facility] Stop: 09/13/24 08:59 Dextrose (Dextrose 50% 50 Ml Syringe) 25 - 50 ml IV UD PRN; Protocol PRN Reason: Hypoglycemia Protocol Stop: 09/12/24 18:49 Diphenoxylate HCl/Atropine (Diphenoxylate/Atropine 2.5/0.025mg Tab) 1 tab PO QID PRN PRN Reason: Diarrhea Stop: 09/12/24 18:45 Last Admin: 08/14/24 19:33 Dose: 1 tab Glucagon (Glucagon For Inj 1 Mg Vial) 1 mg SQ UD PRN; Protocol PRN Reason: Hypoglycemia Protocol Stop: 09/12/24 18:49 Glucose (Glucose 40% Gel 15 Gm Tube) 15 - 30 gm PO UD PRN; Protocol PRN Reason: Hypoglycemia Protocol Stop: 09/12/24 18:49 Glucose (Glucose 10 Tab/Tube) 4 - 8 tab PO UD PRN; Protocol PRN Reason: Hypoglycemia Protocol Stop: 09/12/24 18:49 Guaifenesin (Guaifenesin Sugar Free 200 Mg/10 Ml Udc) 200 mg PO Q8 HUNG Stop: 09/12/24 21:59 Last Admin: 08/15/24 04:30 Dose: Not Given Heparin Sodium (Porcine) (Heparin 100 Unit/Ml 5ml Flush) 5 ml FLUSH PRN PRN PRN Reason: Flush Stop: 09/14/24 01:40 Piperacillin Sod/Tazobactam Sod (Zosyn) 4.5 gm in 100 mls @ 25 mls/hr IV Q8H HUNG; Protocol Stop: 08/16/24 00:00 Last Infusion: 08/15/24 09:11 Dose: Infused Levalbuterol HCl (Levalbuterol Hcl 0.63 Mg/3 Ml Neb) 0.63 mg NEB Q4H PRN; Protocol PRN Reason: Shortness Of Breath Or Wheezing Stop: 09/12/24 18:45 Levothyroxine Sodium (Levothyroxine Sodium 125 Mcg Tablet) 125 mcg PO DAILYBB HUNG Stop: 09/13/24 06:29 Last Admin: 08/15/24 05:07 Dose: 125 mcg Melatonin (Melatonin 3 Mg Tab) 3 mg PO HS PRN PRN Reason: Sleep Stop: 09/12/24 17:15 Metoprolol Succinate (Metoprolol Succ 25mg Ext Rel Tab) 12.5 mg PO DAILY HUNG Stop: 09/13/24 08:59 Last Admin: 08/15/24 08:59 Dose: 12.5 mg Miscellaneous (Carbohydrates For Hypoglycemia ) 15 - 30 gm PO UD PRN PRN Reason: Hypoglycemia Protocol Stop: 09/12/24 18:49 Last Admin: 08/13/24 21:25 Dose: 30 gm Olanzapine (Olanzapine 2.5 Mg Tab) 2.5 mg PO HS HUNG Stop: 09/12/24 20:59 Last Admin: 08/14/24 19:33 Dose: 2.5 mg Oxycodone/Acetaminophen (Oxycodone/Acetaminophen 5mg/325mg Tab) 1 tab PO Q8H PRN PRN Reason: Severe Pain (Scale 7, 8, 9,10) Stop: 08/27/24 18:45 Last Admin: 08/15/24 09:10 Dose: 1 tab Pantoprazole Sodium (Pantoprazole 40 Mg Tab) 40 mg PO BID HUNG Stop: 09/13/24 20:59 Last Admin: 08/15/24 08:59 Dose: 40 mg Paroxetine HCl (Paroxetine Hcl 20 Mg Tab) 20 mg PO HS HUNG Stop: 09/12/24 20:59 Last Admin: 08/14/24 19:33 Dose: 20 mg Prednisone (Prednisone 10 Mg Tablet) 10 mg PO DAILY HUNG Stop: 08/16/24 09:01 Last Admin: 08/15/24 08:59 Dose: 10 mg Prednisone (Prednisone 5 Mg Tab) 5 mg PO DAILY HUNG Stop: 08/18/24 09:01 Sodium Chloride (Sodium Chlor 7% 4 Ml Neb) 4 ml NEB BIDR HUNG Stop: 09/12/24 18:59 Last Admin: 08/15/24 07:09 Dose: 4 ml Tamsulosin HCl (Tamsulosin Hcl 0.4 Mg Cap) 0.4 mg PO HS HUNG Stop: 09/12/24 20:59 Last Admin: 08/14/24 19:33 Dose: 0.4 mg
--- NOTE | 2024-08-15 12:06 | Consultation ---
Date of Consultation August 15, 2024 Assessment & Plan (1) Deep vein thrombosis (DVT) of right lower extremity: Pt with RLE common femoral v DVT noted on imaging 07/25, with sx at the time consistent with acute DVT. Now with GI bleed and AC held. Pt discussed with Dr Tovar, recommends IVC filter insertion in OR tomorrow. PRocedure discussed with pt, he expresses understanding and agreement. Affected thrombotic vein of extremity: femoral Chronicity: acute Qualified Code(s): I82.411 - Acute embolism and thrombosis of right femoral vein History of Present Illness Reason for Consultation: DVT, GI bleed Attending Physician: Nino Lai MD History of Present Illness 84 yo m with multiple medical problems, including laryngeal ca, sick sinus syndrome s/p pacemaker, CAD, anemia, HFpEF, a fib, depression, hypothyroidism, tracheostomy, CVA, COPD, gout, HTN, dyslipidemia, GERD, carotid disease, admitted with general weakness and found to have GI bleed, seen in consultation today for possible IVC filter insertion. Pt known to Dr Tovar for BL CEA performed in 2017 and 2018, pt still seen regularly. He recently underwent a L femoral vein infusaport insertion by Dr Tovar as well. Pt was found to have a RLE femoral vein DVT shortly after infusaport placement, felt to be due to holding eliquis for the procedure. Pt was restarted on AC for a fib immediately after infusaport insertion and has been maintained on this until now. Pt with hgb of 6.6 and has undergone transfusion. AC currently being held d/t concern for GI bleed. Pt does not speak well d/t trach, but does write answers on paper. Currently denies any real complaints except feeling tired. Allergies Allergy/AdvReac Type Severity Reaction Status Date / Time rosuvastatin [From Crestor] Allergy Unknown HAPPENED A Verified 08/13/24 15:17 LONG TIME AGO. Home Medications Medication Instructions Recorded Confirmed Type levothyroxine 125 mcg tablet 125 mcg PO DAILYBB 03/25/18 08/13/24 History nitroglycerin 0.4 mg sublingual 1 tab sublingual UD PRN Chest Pain 03/25/18 08/13/24 History tablet clopidogrel 75 mg tablet 75 mg PO QAM 06/03/18 08/13/24 History albuterol sulfate 2.5 mg/3 mL 2.5 mg inhalation QID PRN 08/19/19 08/13/24 History (0.083 %) solution for nebulization Shortness Of Breath Or Wheezing apixaban 5 mg tablet (Eliquis) 5 mg PO AMHS 09/13/21 08/13/24 History oxycodone-acetaminophen 5 mg-325 1 tab PO Q8H PRN pain #10 tabs 06/24/24 08/13/24 Rx mg tablet (Percocet) olanzapine 2.5 mg tablet 2.5 mg PO HS 07/24/24 08/13/24 History atorvastatin 40 mg tablet 40 mg PO DAILY 08/05/24 08/13/24 History diphenoxylate-atropine 2.5 1 tab PO QID PRN Diarrhea 08/05/24 08/13/24 History mg-0.025 mg tablet metoprolol succinate 25 mg 12.5 mg PO DAILY 08/05/24 08/13/24 History tablet,extended release 24 hr mirtazapine 15 mg tablet 15 mg PO HS 08/05/24 08/13/24 History pantoprazole 40 mg tablet,delayed 40 mg PO DAILY 08/05/24 08/13/24 History release paroxetine HCl 20 mg tablet (Paxil) 20 mg PO HS 08/05/24 08/13/24 History prednisone 10 mg tablets in a dose 40 mg (4 x 10 mg) PO DAILY 14 days 08/07/24 08/13/24 Rx pack #33 ea tamsulosin 0.4 mg capsule 0.4 mg PO HS 08/13/24 08/13/24 History Patient History Medical History S/P radiation therapy Thyroid disease Back problem Moderate aortic stenosis Acute electrocardiogram changes Difficult airway for intubation H/o glidescope #4 with CEA 03/2018 Carotid artery stenosis with cerebral infarction over 8 weeks ago The patient presented to [facility] ED on 03/26/18 with expressive aphasia, left upper extremity numbness, left lower extremity weakness. Symptoms were resolving by the time the patient arrived in the ED. Pt had R CEA while inpatient on 03/29 Obesity Neck pain OCCASIONAL Sleep apnea CPAP History of radiation to head and neck region For laryngeal cancer 1986 Pharyngocutaneous fistula Benign neoplasm of colon JAIME on CPAP no longer on CPAP post tracheostomy Surgical History Hx of laryngectomy (~1999) History of bronchoscopy History of tonsillectomy History of carotid endarterectomy RIGHT (MARCH 2018) History of cataract extraction with lens replacement cataract extraction with IOL implant and LRI left eye - 05/02/12 History of colonoscopy with polypectomy History of rotator cuff surgery Right - 2009 History of coronary artery bypass graft [facility]2 [facility] Family History Mother Essential hypertension Stroke Sister Cancer Breast cancer Daughter Cancer Colon cancer Social History Smoking Status: Former smoker Tobacco Type: Cigarettes Age Quit Using Tobacco: 55; packs per day: 2; Second Hand Exposure: No; Do You Dip or Chew Tobacco: No; Tobacco Cessation Education Requested by Patient: No Hx Alcohol Use: No Hx Substance Use: No Preferred Language: Kazakh Communication Ability: Impaired Communication Ability Comment: laryngeal stoma Visual Impairment: No Limitations Hearing Ability: Normal Career And Technology Education Teacher Required: No Beliefs That Will Affect Care: None marital status: Current Living Situation: Spouse Current Living Situation Comment: home with spouse current occupational status: retired How many Children do You have: 2 How many Children do You have Comment: Son can help Other Information That Helps Us Care for You: No other: Home health nursing twice per week Feels Safe at Home: No Is there a partner from a previous relationship who is making you feel unsafe now?: No Any Concerns about Your Family Situation: No Would You Like to Speak to Someone About Your Situation: No Safety Concerns: Feels Safe At This Time Diet: regular during the past year weight has: decreased > 10 lbs Physical Activity Frequency: Does not Exercise Assistive Devices: Cane and Walker Review of Systems Review of Systems: All systems reviewed & are unremarkable except as noted in HPI & below Physical Exam Constitutional: WD/WN, vitals as above + thin, + frail appearing, cooperative and comfortable; not in distress Neck: + tracheostomy present Respiratory: normal respiratory effort, lungs clear to auscultation Auscultation: + diminished lung sounds Cardiovascular: Rate/Rhythm: + irregularly irregular Vessels: posterior tibial pulses present, dorsalis pedis pulses present and radial pulses present; + abnormal peripheral pulses Extremities: normal capillary refill, + edema (mild rle) and + vascular access device (L femoral infusaport) Gastrointestinal (Abdomen): Inspection/Auscultation: abdomen normal to inspection and normal bowel sounds Percussion/Palpation: abdomen soft; abdomen nontender Musculoskeletal: no cyanosis or clubbing, extremities motor strength 5/5 Skin: no rashes, warm and dry Neurologic: moves all extremities and awake; no focal motor deficits and not confused Psychiatric: A+Ox3, euthymic affect Results & Data Vital Signs (Past 12 Hours) Vital Signs Temp Pulse Resp BP BP Pulse Ox O2 Del Method 08/15/24 10:47 36.7 C 65 19 110/52 L 98 Trach Collar 08/15/24 08:00 Trach Collar 08/15/24 07:17 36.7 C 64 19 131/86 98 Trach Collar 08/15/24 07:09 60 16 99 Trach Collar 08/15/24 03:24 36.4 C L 73 18 120/68 100 Trach Collar 08/15/24 02:06 68 17 96 Trach Collar 08/15/24 00:00 36.4 C L 62 20 115/63 99 Trach Collar O2 Flow Rate FiO2 08/15/24 10:47 08/15/24 08:00 6 21 08/15/24 07:17 08/15/24 07:09 6 21 08/15/24 03:24 6 08/15/24 02:06 6 28 08/15/24 00:00
[2024-08-15] MEDS: ACETAMINOPHEN 325 MG TAB PO PRN (12:17)
[2024-08-15] MEDS: CYCLOBENZAPRINE HCL 10 MG TAB PO PRN (13:25)
[2024-08-15] MEDS: MELATONIN 3 MG TAB PO PRN (20:26)
[2024-08-16] MEDS: HEPARIN 100 UNIT/ML 5ML FLUSH FLUSH PRN (06:48)
[2024-08-16] MEDS ORDERED: predniSONE 10 MG TABLET PO SCH (09:00)
[2024-08-16 10:41] LABS: Hematocrit (blood only) 24.1 % (42.0-52.0); Mean Corpuscular Hemoglobin 28.9 pg (25.0-34.0); Mean Corpuscular Hgb Conc 33.2 g/dL (32.0-36.0); Mean Platelet Volume 9.6 fL (9.4-12.4); Neutrophils # (auto) < 0.50 K/uL (1.40-6.50); Platelet Count 117 K/uL (130-400); RDW Coefficient of Variation 17.1 % (11.5-14.5); RDW Standard Deviation 53.8 fL (36.4-46.3); Red Blood Count 2.77 M/uL (4.70-6.10); White Blood Count 0.43 K/ul (4.8-10.8)
[2024-08-16 10:50] LABS: Calcium 6.9 mg/dl (8.6-10.3); Magnesium 1.7 mg/dl (1.7-2.4); Potassium 4.4 mmol/L (3.5-5.1)
[2024-08-16 10:55] LABS: Creatinine Clr Calc Pharmacy 68.5 ml/min
[2024-08-16] MEDS ORDERED: DIPHENOXYLATE/ATROPINE 2.5/0.025MG TAB PO PRN (10:58)
--- NOTE | 2024-08-16 14:52 | History & Physical Bridge Note ---
Date of Service August 16, 2024 History & Physical Bridge Note Patient for insertion of vena cava filter today. I have discussed the risks options and benefits of the procedure with the patient. The patient understands the risks options and benefits and agrees to the procedure. I have examined the patient, reviewed the History & Physical and in the interval since the performance of the History & Physical I have noted the following changes of clinical significance: no changes noted
[2024-08-16] MEDS: LIDOCAINE 1% LOCAL 20 ML VIAL ONE (15:29)
[2024-08-16] MEDS ORDERED: OPTIRAY 300 100mL IV PRN (15:36)
--- NOTE | 2024-08-16 16:03 | Post Operative Brief Note ---
Immediate Post Op Note Date of Surgery August 16, 2024 Pre & Post Diagnosis Operation Date: 08/16/24 12:15 Pre-Op Diagnosis: Contraindication for Anticoagulation, Pulmonary Embolism Post-Op Diagnosis: Contraindication for Anticoagulation, Pulmonary Embolism I identified the patient and participated in the time-out.: Yes Procedure Operation Date: 08/16/24 12:15 Actual Procedures p Inferior Vena Cava Filter Insertion, Right Femoral Approach, Ultasound Localiztation of the Right Femoral Vein, Fluoroscopy for Positioning - Bill Bartlett MD Surgeon Bill Bartlett MD [employer] MD Mary Estimated Blood Loss 5 Findings Consistent with Post-Op Diagnosis Anesthesia Type Local Complications none Disposition Accompanied Patient To Recovery: No Disposition: Recovery Room
--- NOTE | 2024-08-16 16:05 | Operative Report ---
Post Operative Report Pre & Post Diagnosis Operation Date: 08/16/24 12:15 Pre-Op Diagnosis: Contraindication for Anticoagulation, Pulmonary Embolism Post-Op Diagnosis: Contraindication for Anticoagulation, Pulmonary Embolism I identified the patient and participated in the time-out.: Yes Procedure Operation Date: 08/16/24 12:15 Actual Procedures p Inferior Vena Cava Filter Insertion, Right Femoral Approach, Ultasound Localiztation of the Right Femoral Vein, Fluoroscopy for Positioning - Bill Bartlett MD Surgeon Bill Bartlett MD Telephone Services Sales Representative Mitchell Chiang Estimated Blood Loss 5 Findings Consistent with Post-Op Diagnosis Occluded noncompressible R CFV consistent with known diagnosis of DVT. Infrarenal IVC patent without thrombus. IVC filter deployed in good position in the IVC at a level below the renal veins Specimens None Anesthesia Type Local Complications none None Disposition Accompanied Patient To Recovery: No Disposition: Recovery Room Indications Mr. Clinton Locke is a pleasant 84M with a history of malignancy and RLE DVT. He has a port placed in the left groin. This was unable to go through his bilateral IJ due to thrombus and known large tumor mass. He has been unable to tolerate therapeutic anticoagulation due to persistent GI bleeds. Given his history of DVT and malignancy, IVC filter placement was discussed with him. After discussing the procedure, risks and benefits, the patient elected to proceed with IVC filter placement Description of Procedure The patient was brought to the angio suite and placed in the supine position. The right groin was prepped and draped in the usual fashion. The right common femoral vein was located with ultrasound. It was noncompressible with filling defects, consistent with known occlusion. Given MediPort in left groin as well as known thrombus in bilateral IVC with known tumor masses, the right CFV was selected for access despite known occlusion. 5cc of Lidocaine were administered over the CFV. Using ultrasound guidance the vein was then punctured. The needle tip was visualized within the lumen of the CFV and a guidewire was then passed centrally into the inferior vena cava under fluoroscopic guidance. After several attempts this passed easily into the IVC. A 5Fr sheath was inserted and the J wire was exchanged for a long angled glidewire. The puncture site was then dilated and the filter sheath inserted. It was passed to the infra renal vena cava. A venacavagram was done which showed no cava clot and an acceptable size. The renal veins were identified. The filter was then passed through the sheath and deployed in the infra renal vena cava in an upright position. Satisfied with the positioning of the filter, the sheath was removed. Pressure was applied to the puncture site. Adequate hemostasis was obtained and a sterile dressing was applied. The patient left the angio suite in good condition and tolerated the procedure well. A total of 6min fluoro time, 49 mGy and 15cc contrast were used for the duration of the case. Dr. Bartlett was present and scrubbed for the entire procedure. I attest to the content of the Intraoperative Record and any orders documented therein. Any exceptions are noted below. Supervising Physician Co-Signing Physician Notes Bill Bartlett MD
[2024-08-16] MEDS: PIPERACILLIN/TAZOBACTAM 4.5 GM/100 ML BAG IV SCH (16:34)
--- NOTE | 2024-08-16 16:45 | Hospitalist Progress Note ---
Date of Service August 16, 2024 Assessment & Plan (1) Sepsis: (2) Acute hypoxemic respiratory failure: (3) Mucus plug in respiratory tract: (4) Hematochezia: (5) Immunosuppressed due to chemotherapy: (6) Current chronic use of systemic steroids: Plan Mr. 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 Patient with sepsis however, does not appear overtly toxic on exam. Leukocytosis possible iso mucous plugging as well as steroid taper initiated on 08/07; tachypnea iso possible secretions--patient doesnt use home hypertonic nebs, so again possibly poor secretion mgmt at home; chronic steroids could be contributing to hypotension. Ultimately, patient is still high risk for infection, therefore infectious work up pending with broad spectrum abx ongoing, as well as aggressive resp toilet. Recent admissions [facility] 07/24- for right lower leg swelling +dvt, saw heme/onc who he sees for metastatic cancer, felt likely when stopped Eliquis for left leg port. [facility] 08/05- for diarrhea and hypotension #Severe Sepsis, concern for pulm source #Acute hypoxic respiratory failure #Increased secretions, concern for mucous plugging v developing infection given recent admissions/immunosuppressed v pneumonitis developing? #immunocompromised on chemotherapy Appreciate speech therapy evaluation and recommendation CXR unrevealing, procal 0.08 CT chest shows patchy area of consolidation involving a segment of the right upper lobe likely infectious Continue previously prescribed steroid burst Continue with zosyn for now MRSA nare ordered, vanc in interim, discontinue as able blood cultures - have been negative sputum culture ordered - normal adriana UA - unremarkable s/p 2 L, continue NS @80cc/hr close monitoring of fluid status 2/2 HFpEF and aortic stenosis hx Hypertonic saline nebs BID, duonebs q6h Xopenex prn Chest pt with cough assist and frequent suctioning Clinically better and denies any significant symptoms except back spasm Sputum culture grew Pseudomonas which is pansensitive- has been on Zosyn and will continue Pain is better controlled #Chronic Diarrhea #hematochezia #Chronic Normocytic Anemia recent admission in 06/2024 for ongoing diarrhea, thought to be related to ongoing therapies, s/p multiple tapers of steroids -Hemoglobin baseline around 8 since 05/2024 episode of "small drops of blood" per nursing in diaper, mixed with diarrhea BP stable in 90-100s, HR in 80s Reports discomfort with bm 2/2 ongoing diarrhea thought to be secondary to ongoing immunotherapies Hemocult positive B12, folate, fe and ferritin for optimization IV PPI and CLD for now --advance diet Anusol to anus for comfort Hemoglobin dropped to 6.6 and the patient required 2 units of blood transfusion Anticoagulation has been on hold Will get GI evaluation before restarting anticoagulation Appreciate GI input and recommendation for conservative approach and they are not planning any scope. No evidence of GI bleed and hemoglobin remains stable at 8.0 Likely to start Eliquis on discharge #Hypotension #Weakness #Chronic Steroid Use Gentle IVF as above PT/OT Concern for possible impending iatrogenic adrenal insufficiency as patient has received multiple doses of steroids Random cortisol - unremarkable Continue recently prescribed steroid tapers (started 40mg x 5 days on 08/07, now on 20mg x 5 days (EOT 08/15) then 10 mg x2 days, 5mg x2 days #Elevated troponin, potentially demand iso acute illness, hypoxia ?pneumonitis, dehydration, known CAD Troponin chronically elevated in 20-30s on admission 36, likely multifactorial however, low suspicion for ACS Trend troponin q6h to peak Monitor on tele #Pressure ulcer, POA wound care consult #Moderate aortic stenosis #Chronic Heart failure with preserved ejection fraction ECHO 11/2023 with EF 55-59%, follows cards op -continue IV fluids iso sepsis, monitor for volume overload appears dry and with elevated Lactate, despite BNP 281 would opt for volume resus and assess need for diuretic in coming days if warranted #CAD -Status post CABG 1995 -On Plavix and statin and beta-liliana -continue toprol Plavix is on hold now -Will resume Plavix and Eliquis likely on discharged #Paroxysmal atrial fibrillation #Sick sinus syndrome status post pacemaker -continue toprol -Eliquis has been on hold #Peripheral vascular disease #History of TIA secondary to bilateral carotid stenosis status post right CEA 02/2018 and left CEA 05/2018 -continue Plavix and statin #RLE swelling #Recent DVT of right lower extremity -Occurred after he stopped Eliquis for a port replacement LLE - appreciate vascular surgery input and recommendation -Will have IVC filter placement tomorrow #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 #Status post total laryngectomy right neck dissection, subtotal -Currently On Keytruda and chemotherapu; last session 08/09 -Monitor for mucous plugging of tracheal stoma -Last admission was started on Prednisone taper for diarrheas from immunotherapy. Patient says currently taking prednisone 20mg daily Follow up oncology as an outpatient #thyroidectomy, acquired hypothyroidism -TSH pending- a little elevated continue synthroid #Dysphagia #Protein reji malnutrition reports needing some softer diet, noting issues with certain pills Speech consult for dysphagia eval and optimizing diet metal grinder consult DVT -SCDs for now Full code per my discussion with pt and Admit PCU for aggressive suctioning, tele monitoring, and nursing care Admission and Anticipated Discharge Date Admission Date: August 13, 2024 Subjective 08/15/2024 The patient was seen and examined in telemetry unit He has been complaining of back spasm without significant pain Has had bowel movement but denies any melena and no nausea or vomiting Denies any chest pain, palpitation or shortness of breath 08/16/2024 The patient was seen and examined in telemetry unit in presence of the He has been stable and will go for IVC filter placement this afternoon Denies any abdominal symptoms and did not have any more nausea, vomiting or diarrhea Review of Systems Review of Systems: All systems reviewed and unremarkable except as noted below Physical Exam Physical Exam: Lying in bed without any acute distress Constitutional: + ill appearing and average body habitus Eyes: PERRL, conjunctivae normal, anicteric sclerae ENMT: external ear and nose normal, oropharynx normal Respiratory: no respiratory distress Auscultation: lungs clear to auscultation bilaterally Cardiovascular: Rate/Rhythm: regular rate and regular rhythm; not tachycardic Heart Sounds: normal S1, normal S2 and + murmur Extremities: no edema Gastrointestinal (Abdomen): Inspection/Auscultation: normal bowel sounds; abdomen not distended Percussion/Palpation: abdomen soft; abdomen nontender Neurologic: normal touch/pain/proprioception and moves all extremities; no focal motor deficits Lymphatic: no cervical or axillary lymphadenopathy Results & Data Results & Data Vital Signs (Past 12 Hours) Vital Signs Temp Pulse Pulse Pulse Resp BP BP 08/16/24 16:19 61 16 116/54 L 08/16/24 15:58 60 18 112/48 L 08/16/24 15:50 62 18 116/52 L 08/16/24 15:40 62 18 103/50 L 08/16/24 15:30 60 18 118/50 L 08/16/24 15:20 60 18 123/54 L 08/16/24 13:38 36.8 C 08/16/24 12:21 37.7 C H 08/16/24 11:04 38.5 C H 65 20 08/16/24 10:43 38.8 C H 08/16/24 08:00 08/16/24 07:59 78 19 125/45 L 08/16/24 07:45 72 08/16/24 07:10 81 18 BP Pulse Ox O2 Del Method O2 Flow Rate FiO2 08/16/24 16:19 99 Trach Collar 6 08/16/24 15:58 100 Trach Collar 6 08/16/24 15:50 100 Trach Collar 6 08/16/24 15:40 100 Trach Collar 6 08/16/24 15:30 100 Trach Collar 6 08/16/24 15:20 100 Trach Collar 6 08/16/24 13:38 08/16/24 12:21 08/16/24 11:04 114/44 L 97 Room Air 08/16/24 10:43 08/16/24 08:00 Trach Collar 08/16/24 07:59 97 Trach Collar 08/16/24 07:45 08/16/24 07:10 98 Trach Collar 21 Laboratory Results Short CBC 08/16/24 Range/Units 09:56 WBC 0.43 L* (4.8-10.8) K/ul Hgb 8.0 L (14.0-18.0) g/dl Hct 24.1 L (42.0-52.0) % Plt Count 117 L (130-400) K/uL BMP 08/16/24 09:56 Sodium 132 L Potassium 4.4 Chloride 104 Carbon Dioxide 23 BUN 26 H Creatinine 0.84 Glucose 77 Calcium 6.9 L Medications Administered Current Inpatient Medications Acetaminophen (Acetaminophen 325 Mg Tab) 650 mg PO Q4H PRN PRN Reason: Pain or Fever Stop: 09/12/24 17:15 Last Admin: 08/16/24 10:46 Dose: 650 mg Albuterol (Albut/Ipratrop 3mg/0.5mg Neb 3 Ml Vial) 3 ml NEB Q6R [facility]; Protocol Stop: 09/12/24 18:59 Last Admin: 08/16/24 14:00 Dose: Not Given Apixaban (Apixaban 5 Mg Tablet) 5 mg PO BID [facility] Stop: 09/12/24 20:59 Last Admin: 08/13/24 20:26 Dose: 5 mg Atorvastatin Calcium (Atorvastatin 40 Mg Tab) 40 mg PO DAILY [facility] Stop: 09/13/24 08:59 Last Admin: 08/16/24 09:22 Dose: 40 mg Clopidogrel Bisulfate (Clopidogrel Bisulfate 75 Mg Tab) 75 mg PO QAM [facility] Stop: 09/13/24 08:59 Cyclobenzaprine HCl (Cyclobenzaprine Hcl 10 Mg Tab) 5 mg PO TID PRN PRN Reason: spasm Stop: 09/14/24 12:15 Last Admin: 08/15/24 20:26 Dose: 5 mg Dextrose (Dextrose 50% 50 Ml Syringe) 25 - 50 ml IV UD PRN; Protocol PRN Reason: Hypoglycemia Protocol Stop: 09/12/24 18:49 Diphenoxylate HCl/Atropine (Diphenoxylate/Atropine 2.5/0.025mg Tab) 1 tab PO QID PRN PRN Reason: Diarrhea Stop: 09/15/24 10:57 Glucagon (Glucagon For Inj 1 Mg Vial) 1 mg SQ UD PRN; Protocol PRN Reason: Hypoglycemia Protocol Stop: 09/12/24 18:49 Glucose (Glucose 40% Gel 15 Gm Tube) 15 - 30 gm PO UD PRN; Protocol PRN Reason: Hypoglycemia Protocol Stop: 09/12/24 18:49 Glucose (Glucose 10 Tab/Tube) 4 - 8 tab PO UD PRN; Protocol PRN Reason: Hypoglycemia Protocol Stop: 09/12/24 18:49 Guaifenesin (Guaifenesin Sugar Free 200 Mg/10 Ml Udc) 200 mg PO Q8 [facility] Stop: 09/12/24 21:59 Last Admin: 08/16/24 06:11 Dose: Not Given Heparin Sodium (Porcine) (Heparin 100 Unit/Ml 5ml Flush) 5 ml FLUSH PRN PRN PRN Reason: Flush Stop: 09/14/24 01:40 Last Admin: 08/16/24 09:49 Dose: 5 ml Piperacillin Sod/Tazobactam Sod (Zosyn) 4.5 gm in 100 mls @ 25 mls/hr IV Q8H [facility]; Protocol Stop: 08/18/24 11:59 Levalbuterol HCl (Levalbuterol Hcl 0.63 Mg/3 Ml Neb) 0.63 mg NEB Q4H PRN; Protocol PRN Reason: Shortness Of Breath Or Wheezing Stop: 09/12/24 18:45 Levothyroxine Sodium (Levothyroxine Sodium 125 Mcg Tablet) 125 mcg PO DAILYBB [facility] Stop: 09/13/24 06:29 Last Admin: 08/16/24 06:11 Dose: 125 mcg Melatonin (Melatonin 3 Mg Tab) 3 mg PO HS PRN PRN Reason: Sleep Stop: 09/12/24 17:15 Last Admin: 08/15/24 20:26 Dose: 3 mg Metoprolol Succinate (Metoprolol Succ 25mg Ext Rel Tab) 12.5 mg PO DAILY [facility] Stop: 09/13/24 08:59 Last Admin: 08/16/24 09:22 Dose: 12.5 mg Miscellaneous (Carbohydrates For Hypoglycemia ) 15 - 30 gm PO UD PRN PRN Reason: Hypoglycemia Protocol Stop: 09/12/24 18:49 Last Admin: 08/13/24 21:25 Dose: 30 gm Olanzapine (Olanzapine 2.5 Mg Tab) 2.5 mg PO HS [facility] Stop: 09/12/24 20:59 Last Admin: 08/15/24 20:14 Dose: 2.5 mg Oxycodone/Acetaminophen (Oxycodone/Acetaminophen 5mg/325mg Tab) 1 tab PO Q8H PRN PRN Reason: Severe Pain (Scale 7, 8, 9,10) Stop: 08/27/24 18:45 Last Admin: 08/15/24 22:33 Dose: 1 tab Pantoprazole Sodium (Pantoprazole 40 Mg Tab) 40 mg PO BID [facility] Stop: 09/13/24 20:59 Last Admin: 08/16/24 09:22 Dose: 40 mg Paroxetine HCl (Paroxetine Hcl 20 Mg Tab) 20 mg PO HS [facility] Stop: 09/12/24 20:59 Last Admin: 08/15/24 20:13 Dose: 20 mg Prednisone (Prednisone 5 Mg Tab) 5 mg PO DAILY [facility] Stop: 08/18/24 09:01 Sodium Chloride (Sodium Chlor 7% 4 Ml Neb) 4 ml NEB BIDR [facility] Stop: 09/12/24 18:59 Last Admin: 08/16/24 07:10 Dose: 4 ml Tamsulosin HCl (Tamsulosin Hcl 0.4 Mg Cap) 0.4 mg PO HS [facility] Stop: 09/12/24 20:59 Last Admin: 08/15/24 20:14 Dose: 0.4 mg
[2024-08-16] MEDS ORDERED: Nursing to Pharmacy Communication SCH (19:00)
[2024-08-17 06:16] LABS: Hemoglobin 7.5 g/dl (14.0-18.0); Mean Corpuscular Hemoglobin 28.6 pg (25.0-34.0); Mean Corpuscular Hgb Conc 32.6 g/dL (32.0-36.0); Mean Corpuscular Volume 87.8 fL (80.0-100.0); Mean Platelet Volume 9.8 fL (9.4-12.4); Platelet Count 109 K/uL (130-400); RDW Coefficient of Variation 17.2 % (11.5-14.5); RDW Standard Deviation 54.8 fL (36.4-46.3); Red Blood Count 2.62 M/uL (4.70-6.10); White Blood Count 0.33 K/ul (4.8-10.8)
[2024-08-17 06:26] LABS: BUN Creatinine Ratio 36.5 (10-20); Calcium 6.9 mg/dl (8.6-10.3); Creatinine Clr Calc Pharmacy 77.7 ml/min
[2024-08-17 06:31] LABS: Echinocytes 1+; Neutrophils # (auto) < 0.50 K/uL (1.40-6.50); Polychromasia 1+
[2024-08-17] MEDS: predniSONE 5 MG TAB PO SCH (08:40)
[2024-08-17] MEDS: HEPARIN 25000 UNIT/500 ML D5W 25,000 UNITS/500 ML BAG IV SCH (11:29)
[2024-08-17] MEDS: Heparin IV Adult Wt-Based Standard *NO* INITIAL Bolus Protocol IV STA (11:30)
--- NOTE | 2024-08-17 13:15 | Hospitalist Progress Note ---
Date of Service August 17, 2024 Assessment & Plan (1) Sepsis: (2) Acute hypoxemic respiratory failure: (3) Mucus plug in respiratory tract: (4) Hematochezia: (5) Immunosuppressed due to chemotherapy: (6) Current chronic use of systemic steroids: Plan Mr. 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 Recent admissions [facility] 07/24- for right lower leg swelling +dvt, saw heme/onc who he sees for metastatic cancer, felt likely when stopped Eliquis for left leg port. [facility] 08/05- for diarrhea and hypotension #Acute hypoxic respiratory failure #Pneumonia Patient presented with shortness of breath, cough CT chest shows patchy area of consolidation Sputum culture growing Pseudomonas Continue on Zosyn Continue on hypertonic saline nebs, DuoNebs Continue chest clearance therapy #RLE swelling #Recent DVT of right lower extremity Status post IVC placement on 08/16/2024 Episode of BRBPR -Occurred after he stopped Eliquis for a port replacement LLE - Venous duplex from 07/24 showed extensive deep vein thrombosis in right lower extremity Patient's hemoglobin dropped to 6.6 on 08/14; Eliquis was kept on hold and IVC filter was placed on 08/16. Reported some small drops of blood in diaper mixed with diarrhea. Hemoccult was positive. Discussed with patient's oncologist Dr. Monroy on 08/17; plan to restart heparin given significant right lower extremity swelling and monitor for recurrence of bleeding. Patient reported history of rectal polyp and wanted GI to evaluate him; reached out to GI; appreciate recommendation. #Hypotension #Weakness #Chronic Steroid Use Concern for possible impending iatrogenic adrenal insufficiency as patient has received multiple doses of steroids Random cortisol - unremarkable Continue recently prescribed steroid tapers (started 40mg x 5 days on 08/07, now on 20mg x 5 days (EOT 08/15) then 10 mg x2 days, 5mg x2 days #Pressure ulcer, POA wound care consult #Moderate aortic stenosis #Chronic Heart failure with preserved ejection fraction ECHO 11/2023 with EF 55-59%, follows cards op -Moniotor #CAD -Status post CABG 1995 -On Plavix and statin and beta-liliana -continue toprol Plavix is on hold now #Paroxysmal atrial fibrillation #Sick sinus syndrome status post pacemaker -continue toprol -on eliquis #Peripheral vascular disease #History of TIA secondary to bilateral carotid stenosis status post right CEA 02/2018 and left CEA 05/2018 -Conitnue on statin; hold plavix #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 #Status post total laryngectomy right neck dissection, subtotal -Currently On Keytruda and chemotherapu; last session 08/09 -Monitor for mucous plugging of tracheal stoma -Last admission was started on Prednisone taper for diarrheas from immunotherapy. Patient says currently taking prednisone 20mg daily Follow up oncology as an outpatient #thyroidectomy, acquired hypothyroidism continue synthroid #Dysphagia #Protein reji malnutrition reports needing some softer diet, noting issues with certain pills Speech consult for dysphagia eval and optimizing diet grounds worker consult DVT -heparin Full code per my discussion with pt and Admit PCU for aggressive suctioning, tele monitoring, and nursing care Time spent evaluating patient, direct bedside care, chart review, placing orders, interpretation of diagnostic studies, discussion with consultants, patient, and family members, as well as other required patient management activities is 50 minutes Please note the above document was generated using voice recognition software. It may contain grammatical, syntax or spelling errors. Any formal questions or concerns about the content, text or information contained within the body of this dictation should be directly addressed to the provider for clarification Admission and Anticipated Discharge Date Admission Date: August 13, 2024 Subjective Patient seen and examined at bedside. He reports he has perianal pain; reports history of rectal polyp in the past. He denies any bleeding. No significant events overnight Review of Systems Review of Systems: All systems reviewed & are unremarkable except as noted in Subjective Physical Exam Physical Exam: Constitutional: Alert oriented x 3; not in distress Neck; tracheostomy present Respiratory: Bilateral occasional crackles present Cardiovascular: RRR, no murmur, no edema Vessels: no JVD or carotid bruit Chest: normal inspection of chest Abdomen: normal bowel sounds, soft, nontender, no hepatosplenomegaly Musculoskeletal: Significant swelling of right lower extremity with 2+ pitting edema Neurologic: PERRL, EOMI, accommodation nl, no face palsy, no dysarthria CN's II- XI intact bilaterally and moves all extremities Results & Data Results & Data Vital Signs (Past 12 Hours) Vital Signs Temp Pulse Pulse Resp BP Pulse Ox O2 Del Method 08/17/24 11:11 36.7 C 61 20 137/70 96 Room Air 08/17/24 10:27 Trach Collar 08/17/24 08:13 36.4 C L 63 22 114/44 L 97 Room Air 08/17/24 08:04 62 08/17/24 07:22 60 20 95 Room Air, Trach Collar 08/17/24 02:48 36.7 C 61 18 105/43 L 97 Room Air, Trach Collar O2 Flow Rate FiO2 08/17/24 11:11 08/17/24 10:27 08/17/24 08:13 08/17/24 08:04 08/17/24 07:22 8 21 08/17/24 02:48
--- NOTE | 2024-08-17 14:38 | Gastroenterology Progress Note ---
<Statement entered by Neil Lowe MD - 08/17/24 14:46> I have reviewed the history, physical exam, lab and imaging findings as dictated by the mid-level provider, made any necessary modifications, and agree with the stated assessment and recommendations. A total of 35 minutes was spent in the chart/data review, direct observation, decision making and discussion of this case with the mid level provider, patient/family and other providers. Date of Service August 17, 2024 Assessment & Plan (1) Rectal pain: Plan: Patient not well enough to complete bowel prep for colonoscopy. Discussed at bedside with Dr. Lowe. If no objections from anesthesia, could sedate patient slightly and evaluate a limited view of the rectum for further evaluation of his complaints tomorrow. Consider adding Metamucil daily as he is incontinent and CT shows retained stool in the rectum. Admission and Anticipated Discharge Date Admission Date: August 13, 2024 Subjective GI asked to re-evaluate patient due to patient's reported concerns of rectal polyps. He notes he had rectal polyps many years ago. Last colonoscopy in 2014 with sigmoid polyp and tattoo noted from previous scopes. He notes rectal pain. CT shows stool in rectum. Heme positive. He is on neutropenic precautions. Review of Systems Gastrointestinal: rectal pain Physical Exam Gastrointestinal (Abdomen): Rectal exam by Dr. Lowe--shows stool but no significant findings otherwise; patient has pain Results & Data Results & Data Vital Signs (Past 12 Hours) Vital Signs Temp Pulse Pulse Resp BP Pulse Ox O2 Del Method 08/17/24 13:44 68 20 93 Trach Collar 08/17/24 11:11 36.7 C 61 20 137/70 96 Room Air 08/17/24 10:27 Trach Collar 08/17/24 08:13 36.4 C L 63 22 114/44 L 97 Room Air 08/17/24 08:04 62 08/17/24 07:22 60 20 95 Room Air, Trach Collar 08/17/24 02:48 36.7 C 61 18 105/43 L 97 Room Air, Trach Collar O2 Flow Rate FiO2 08/17/24 13:44 21 08/17/24 11:11 08/17/24 10:27 08/17/24 08:13 08/17/24 08:04 08/17/24 07:22 8 21 04/23/25 02:48 PG Care Time/CCT Total # of Minutes Spent Total Time Spent with Patient: Total time spent is greater than 50% in coordination of care (as documented) at patient's floor/unit and/or counseling patient: Coding Level of Care Code 80843 SUB INP/OBS CARE 2/35MIN Diagnoses Rectal pain K62.89
[2024-08-17] MEDS: 4.5GM EXT INFUSION IV SCH (15:09)
[2024-08-17] MEDS: oxyCODONE/ACETAMINOPHEN 5mg/325mg TAB PO PRN (16:12)
[2024-08-17 19:49] LABS: ANTI-Xa, UFH(UnfractionatedHep 0.19 IU/ml (0.3-0.7)
[2024-08-17] MEDS ORDERED: Nursing to Pharmacy Communication SCH (20:00)
[2024-08-17] MEDS: HEPARIN IV BOLUS 3,000 UNITS in SYRINGE 0 ML IV ONE (21:00)
[2024-08-18 04:08] LABS: ANTI-Xa, UFH(UnfractionatedHep 0.18 IU/ml (0.3-0.7)
[2024-08-18] MEDS: HEPARIN SOD (PORCINE) 1000 UNIT/ML IV ONE ×2 (05:12→17:49)
[2024-08-18] MEDS: SODIUM CHLORIDE 0.9% 500 ML IV SCH (06:01)
[2024-08-18 07:41] LABS: BUN Creatinine Ratio 29.1 (10-20); Calcium 6.7 mg/dl (8.6-10.3); Creatinine Clr Calc Pharmacy 72.8 ml/min; Hematocrit (blood only) 21.5 % (42.0-52.0); Hemoglobin 7.2 g/dl (14.0-18.0); Mean Corpuscular Hgb Conc 33.5 g/dL (32.0-36.0); Mean Corpuscular Volume 86.7 fL (80.0-100.0); Mean Platelet Volume 10.8 fL (9.4-12.4); Platelet Count 100 K/uL (130-400); Potassium 3.5 mmol/L (3.5-5.1); RDW Coefficient of Variation 16.6 % (11.5-14.5); RDW Standard Deviation 52.6 fL (36.4-46.3); Red Blood Count 2.48 M/uL (4.70-6.10); White Blood Count 0.48 K/ul (4.8-10.8)
[2024-08-18 07:56] LABS: Neutrophils # (auto) < 0.50 K/uL (1.40-6.50)
[2024-08-18] MEDS: PSYLLIUM or GUAR GUM FIBER 4GM PACKET PO SCH (08:20)
[2024-08-18] MEDS ORDERED: predniSONE 5 MG TAB PO SCH (09:00)
--- NOTE | 2024-08-18 09:17 | History & Physical Bridge Note ---
<Statement entered by Neil Lowe MD - 08/18/24 14:07> I have reviewed the history, physical exam, lab and imaging findings as dictated by the mid-level provider, made any necessary modifications, and agree with the stated assessment and recommendations. Date of Service August 18, 2024 History & Physical Bridge Note I have examined the patient, reviewed the History & Physical and in the interval since the performance of the History & Physical I have noted the following jarred nges of clinical significance: no changes noted Patient is NPO. He denies any new problems. Keep NPO and proceed with unprepped flex sig if anesthesia deems acceptable risk. Plan to evaluate rectum due to complaints of significant pain.
--- NOTE | 2024-08-18 10:43 | Hospitalist Progress Note ---
Date of Service August 18, 2024 Assessment & Plan (1) Sepsis: (2) Acute hypoxemic respiratory failure: (3) Mucus plug in respiratory tract: (4) Hematochezia: (5) Immunosuppressed due to chemotherapy: (6) Current chronic use of systemic steroids: Plan Mr. 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 Recent admissions [facility] 07/24- for right lower leg swelling +dvt, saw heme/onc who he sees for metastatic cancer, felt likely when stopped Eliquis for left leg port. [facility] 08/05- for diarrhea and hypotension #Acute hypoxic respiratory failure #Pneumonia # Neutropenia Patient presented with shortness of breath, cough CT chest shows patchy area of consolidation Sputum culture growing Pseudomonas Continue on Zosyn Continue on hypertonic saline nebs, DuoNebs Continue chest clearance therapy Patient has chemotherapy-induced neutropenia; discussed with oncology on 08/18; plan to start Neupogen 480 mcg subcutaneous for next 2 to 3 days until ANC is greater than 1000 #RLE swelling #Recent DVT of right lower extremity Status post IVC placement on 08/16/2024 Episode of BRBPR -Occurred after he stopped Eliquis for a port replacement LLE - Venous duplex from 07/24 showed extensive deep vein thrombosis in right lower extremity Patient's hemoglobin dropped to 6.6 on 08/14; Eliquis was kept on hold and IVC filter was placed on 08/16. Reported some small drops of blood in diaper mixed with diarrhea. Hemoccult was positive. Discussed with patient's oncologist Dr. Monroy on 08/17; plan to restart heparin given significant right lower extremity swelling and monitor for recurrence of bleeding. Patient reported history of rectal polyp and wanted GI to evaluate him; reached out to GI; Plan for flex sigmoidoscopy on August 18, 2024 #Hypotension #Weakness #Chronic Steroid Use Concern for possible impending iatrogenic adrenal insufficiency as patient has received multiple doses of steroids Random cortisol - unremarkable Continue recently prescribed steroid tapers (started 40mg x 5 days on 08/07, now on 20mg x 5 days (EOT 08/15) then 10 mg x2 days, 5mg x2 days #Pressure ulcer, POA - ruled out Evaluated by wound care- Pt does not have a pressure ulcer but does have medial sacrum moisture associated dermatitis #Moderate aortic stenosis #Chronic Heart failure with preserved ejection fraction ECHO 11/2023 with EF 55-59%, follows cards op -Moniotor #CAD -Status post CABG 1995 -On Plavix and statin and beta-liliana -continue toprol Plavix is on hold now #Paroxysmal atrial fibrillation #Sick sinus syndrome status post pacemaker -continue toprol -on eliquis #Peripheral vascular disease #History of TIA secondary to bilateral carotid stenosis status post right CEA 02/2018 and left CEA 05/2018 -Continue on statin; hold plavix #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 #Status post total laryngectomy right neck dissection, subtotal -Currently On Keytruda and chemotherapy; last session 08/09 -Monitor for mucous plugging of tracheal stoma -Last admission was started on Prednisone taper for diarrheas from immunotherapy. Patient says currently taking prednisone 20mg daily Follow up oncology as an outpatient #thyroidectomy, acquired hypothyroidism continue synthroid #Dysphagia #Protein reji malnutrition reports needing some softer diet, noting issues with certain pills DVT -heparin Full code per my discussion with pt and Admit PCU for aggressive suctioning, tele monitoring, and nursing care Time spent evaluating patient, direct bedside care, chart review, placing orders, interpretation of diagnostic studies, discussion with consultants, patient, and family members, as well as other required patient management activities is 50 minutes Please note the above document was generated using voice recognition software. It may contain grammatical, syntax or spelling errors. Any formal questions or concerns about the content, text or information contained within the body of this dictation should be directly addressed to the provider for clarification Admission and Anticipated Discharge Date Admission Date: August 13, 2024 Subjective Patient seen and examined at bedside. He reports that he is feeling much better compared to previous day. Denies any medical pain today. Denies fever, chills, chest pain or shortness of breath. Review of Systems Review of Systems: All systems reviewed & are unremarkable except as noted in Subjective Physical Exam Physical Exam: Constitutional: Alert oriented x 3; not in distress Neck; tracheostomy present Respiratory: Bilateral occasional crackles present Cardiovascular: RRR, no murmur, no edema Vessels: no JVD or carotid bruit Chest: normal inspection of chest Abdomen: normal bowel sounds, soft, nontender, no hepatosplenomegaly Musculoskeletal: swelling of right lower extremity with 2+ pitting edema Neurologic: PERRL, EOMI, accommodation nl, no face palsy, no dysarthria CN's II- XI intact bilaterally and moves all extremities Results & Data Results & Data Vital Signs (Past 12 Hours) Vital Signs Temp Pulse Pulse Pulse Resp BP Pulse Ox 08/18/24 09:38 102 H 08/18/24 09:38 08/18/24 07:18 36.9 C 85 19 128/70 97 08/18/24 07:14 75 18 98 08/18/24 03:30 37.2 C 90 20 136/58 L 93 08/18/24 01:59 77 17 95 08/17/24 23:07 74 08/17/24 22:41 36.6 C 67 18 120/43 L 93 O2 Del Method FiO2 08/18/24 09:38 08/18/24 09:38 Room Air, Trach Collar 08/18/24 07:18 Room Air 08/18/24 07:14 Room Air 08/18/24 03:30 Room Air, Trach Collar 08/18/24 01:59 Trach Collar 21 08/17/24 23:07 08/17/24 22:41 Room Air
--- NOTE | 2024-08-18 11:16 | Palliative Care Consultation ---
Date of Consultation August 18, 2024 Assessment & Plan (1) Palliative care by specialist: Met with pt at bedside, he was awake, alert and pleasantly communicative. No visitors present. Introduced Palliative Medicine and explained our role in advanced care planning, symptom management and navigation through the progression of life limiting disease. Patient and/or family were receptive to palliative services for goals of care discussions. Reviewed we are different from hospice, a home health nurse visiting service. (2) Advance directive discussed with patient: Pt shared that he is anticipating transport to endoscopy for procedure and requests that any ACP discussions be delayed until his is present. I was able to contact Tiffany, pt's by phone, meeting scheduled for 11am. (3) Counseling regarding goals of care: deferred by pt at this time. Plan Continue current level of care, Meeting to discuss ACP/goals with pt and tomorrow (08/19/24) on her arrival, around 11:30. History of Present Illness Reason for Consultation: goals of care Requesting Physician: Long Rodriguez MD Attending Physician: Long Rodriguez MD History of Present Illness Mr. 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 Patient admitted for sepsis, likely 2/2 asp PNA. Recent admissions [facility] 07/24- for right lower leg swelling +dvt, saw heme/onc who he sees for metastatic cancer, felt likely when stopped Eliquis for left leg port. [facility] 08/05- for diarrhea and hypotension Allergies Allergy/AdvReac Type Severity Reaction Status Date / Time rosuvastatin [From Crestor] Allergy Unknown HAPPENED A Verified 08/13/24 15:17 LONG TIME AGO. Home Medications Medication Instructions Recorded Confirmed Type levothyroxine 125 mcg tablet 125 mcg PO DAILYBB 03/25/18 08/13/24 History nitroglycerin 0.4 mg sublingual 1 tab sublingual UD PRN Chest Pain 03/25/18 08/13/24 History tablet clopidogrel 75 mg tablet 75 mg PO QAM 06/03/18 08/13/24 History albuterol sulfate 2.5 mg/3 mL 2.5 mg inhalation QID PRN 08/19/19 08/13/24 History (0.083 %) solution for nebulization Shortness Of Breath Or Wheezing apixaban 5 mg tablet (Eliquis) 5 mg PO AMHS 09/13/21 08/13/24 History oxycodone-acetaminophen 5 mg-325 1 tab PO Q8H PRN pain #10 tabs 06/24/24 08/13/24 Rx mg tablet (Percocet) olanzapine 2.5 mg tablet 2.5 mg PO HS 07/24/24 08/13/24 History atorvastatin 40 mg tablet 40 mg PO DAILY 08/05/24 08/13/24 History diphenoxylate-atropine 2.5 1 tab PO QID PRN Diarrhea 08/05/24 08/13/24 History mg-0.025 mg tablet metoprolol succinate 25 mg 12.5 mg PO DAILY 08/05/24 08/13/24 History tablet,extended release 24 hr mirtazapine 15 mg tablet 15 mg PO HS 08/05/24 08/13/24 History pantoprazole 40 mg tablet,delayed 40 mg PO DAILY 08/05/24 08/13/24 History release paroxetine HCl 20 mg tablet (Paxil) 20 mg PO HS 08/05/24 08/13/24 History prednisone 10 mg tablets in a dose 40 mg (4 x 10 mg) PO DAILY 14 days 08/07/24 08/13/24 Rx pack #33 ea tamsulosin 0.4 mg capsule 0.4 mg PO HS 08/13/24 08/13/24 History Patient History Medical History S/P radiation therapy Thyroid disease Back problem Moderate aortic stenosis Acute electrocardiogram changes Difficult airway for intubation H/o glidescope #4 with CEA 03/2018 Carotid artery stenosis with cerebral infarction over 8 weeks ago The patient presented to [facility] ED on 03/26/18 with expressive aphasia, left upper extremity numbness, left lower extremity weakness. Symptoms were resolving by the time the patient arrived in the ED. 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 on CPAP no longer on CPAP post tracheostomy Surgical History Hx of laryngectomy (~1999) History of bronchoscopy History of tonsillectomy History of carotid endarterectomy RIGHT (MARCH 2018) History of cataract extraction with lens replacement cataract extraction with IOL implant and LRI left eye - 05/02/12 History of colonoscopy with polypectomy History of rotator cuff surgery Right - 2009 History of coronary artery bypass graft X2 [facility] Family History Mother Essential hypertension Stroke Sister Cancer Breast cancer Daughter Cancer Colon cancer Social History Smoking Status: Former smoker Tobacco Type: Cigarettes Age Quit Using Tobacco: 55; packs per day: 2; Second Hand Exposure: No; Do You Dip or Chew Tobacco: No; Tobacco Cessation Education Requested by Patient: No Hx Alcohol Use: No Hx Substance Use: No Preferred Language: [place] Communication Ability: Impaired Communication Ability Comment: laryngeal stoma Visual Impairment: No Limitations Hearing Ability: Normal Stair Builder Required: No Beliefs That Will Affect Care: None marital status: Current Living Situation: Spouse Current Living Situation Comment: home with spouse current occupational status: retired How many Children do You have: 2 How many Children do You have Comment: Son can help Other Information That Helps Us Care for You: No other: Home health nursing twice per week Feels Safe at Home: No Is there a partner from a previous relationship who is making you feel unsafe now?: No Any Concerns about Your Family Situation: No Would You Like to Speak to Someone About Your Situation: No Safety Concerns: Feels Safe At This Time Diet: regular during the past year weight has: decreased > 10 lbs Physical Activity Frequency: Does not Exercise Assistive Devices: Cane and Other Review of Systems Constitutional: as per Subjective / HPI Gastrointestinal: no abdominal pain and no nausea Physical Exam Physical Exam: Constitutional: well developed, + ill appearing and + thin Neck: well healed tracheostomy present Respiratory: normal respiratory effort and + cough; no respiratory distress Auscultation: + crackles (BBS) Cardiovascular: RRR, no murmur, no edema Gastrointestinal (Abdomen): Inspection/Auscultation: + hyperactive bowel sounds Percussion/Palpation: abdomen soft; abdomen nontender and no guarding Musculoskeletal: no cyanosis or clubbing, extremities motor strength 5/5 H ead/Neck/Chest: normocephalic RLE 2+ pitting edema Skin: + turgor decreased and + pallor Neurologic: moves all extremities and awake communicates clearly by mouthing words/writing per baseline (Hx total laryngectomy/tracheostomy) Psychiatric: A+Ox3, euthymic affect Results & Data Vital Signs (Past 12 Hours) Vital Signs Temp Pulse Pulse Pulse Resp BP Pulse Ox 08/18/24 09:38 102 H 08/18/24 09:38 08/18/24 07:18 36.9 C 85 19 128/70 97 08/18/24 07:14 75 18 98 08/18/24 03:30 37.2 C 90 20 136/58 L 93 08/18/24 01:59 77 17 95 O2 Del Method FiO2 08/18/24 09:38 08/18/24 09:38 Room Air, Trach Collar 08/18/24 07:18 Room Air 08/18/24 07:14 Room Air 08/18/24 03:30 Room Air, Trach Collar 08/18/24 01:59 Trach Collar 21 Laboratory Results Abnormal lab results 08/17/24 08/17/24 08/17/24 Range/Units 19:09 20:05 Unknown WBC (4.8-10.8) K/ul RBC (4.70-6.10) M/uL Hgb (14.0-18.0) g/dl Hct (42.0-52.0) % RDW Std Deviation (36.4-46.3) fL RDW Coeff of Sharda (11.5-14.5) % Plt Count (130-400) K/uL Neut # (Auto) (1.40-6.50) K/uL Heparin Anti-Xa, Unfract 0.19 L (0.3-0.7) IU/ml Sodium (136-145) mmol/L Chloride (98-107) mmol/L BUN/Creatinine Ratio (10-20) POC Glucose 106 H (70-99) mg/dl Calcium (8.6-10.3) mg/dl Stool Occult Bld Scrn Positive A (Negative) 08/18/24 08/18/24 Range/Units 03:01 06:45 WBC 0.48 L* (4.8-10.8) K/ul RBC 2.48 L (4.70-6.10) M/uL Hgb 7.2 L (14.0-18.0) g/dl Hct 21.5 L (42.0-52.0) % RDW Std Deviation 52.6 H (36.4-46.3) fL RDW Coeff of Sharda 16.6 H (11.5-14.5) % Plt Count 100 L (130-400) K/uL Neut # (Auto) < 0.50 L* (1.40-6.50) K/uL Heparin Anti-Xa, Unfract 0.18 L (0.3-0.7) IU/ml Sodium 127 L (136-145) mmol/L Chloride 97 L (98-107) mmol/L BUN/Creatinine Ratio 29.1 H (10-20) POC Glucose (70-99) mg/dl Calcium 6.7 L (8.6-10.3) mg/dl Stool Occult Bld Scrn (Negative) Diagnostic Findings Chest X-Ray 08/13/24 13:23 Chest radiograph, one view History: Chest pain Comparison: August 05, 2024 Findings: Single AP view of the chest performed. No focal consolidation or pleural effusion. No pneumothorax. The cardiomediastinal silhouette is within normal limits. Left chest wall dual-lead AICD. Normal pulmonary vascularity. No evidence for lymphadenopathy. No visualized bony or soft tissue abnormality. Median sternotomy wires. Impression: Normal chest radiograph Electronically signed by Reginaldo Mckeon 08-13-2024 3:[address] 08/13/24 18:34 EXAM: CT chest diagnostic wo con CLINICAL HISTORY: AHRF,CXR unrevealing TECHNIQUE: Contiguous axial CT images of the chest were acquired without administration of intravenous contrast. Coronal and sagittal reconstructions were obtained. One of the following dose reduction techniques were utilized for this exam: Automated exposure control, adjustment of the mA and/or kV according to patient size, use of iterative reconstruction. DLP: 736.98 mGy-cm, CTDI: 19.3 mGy. COMPARISON: CR same date 08/13/2024 reviewed FINDINGS: Lungs: Multifocal clustered areas of centrilobular nodules and bronchovascular distribution scattered in right lung with small patchy areas of consolidation numerical segment of right upper lobe, representing acute infectious etiology with endobronchial spread of infection. Minimal right sided pleural effusion. Few small calcified nodules in right lung, sequelae to prior infection. Thin subpleural fibroatelectatic changes in both lungs. Tiny 2-2.5 mm subpleural nodules in left lung. No pleural effusion on left. Mediastinum: No mediastinal mass or abnormal lymphadenopathy. Heart size is normal. Pacemaker leads in situ. Trachea and Main Bronchi: Tracheostomy noted. Chest Wall: Median sternotomy status. Bone: Severe degenerative changes in thoracic spine. Upper Abdomen: Bilateral renal cortical cysts. Fecal loading of visualized colon. IMPRESSION: 1. Multifocal clustered areas of centrilobular nodules and bronchovascular distribution scattered in right lung with small patchy areas of consolidation and involving a segment of right upper lobe, representing acute infectious etiology with endobronchial spread of infection. Recommended clinical correlation 2. Minimal right-sided pleural effusion. Electronically signed by Pastor Vasquez 08-13-2024 10:44 PM Medications Administered Current Inpatient Medications Acetaminophen (Acetaminophen 325 Mg Tab) 650 mg PO Q4H PRN PRN Reason: Pain or Fever Stop: 09/12/24 17:15 Last Admin: 08/16/24 23:21 Dose: 650 mg Albuterol (Albut/Ipratrop 3mg/0.5mg Neb 3 Ml Vial) 3 ml NEB Q6R [facility]; Protocol Stop: 09/12/24 18:59 Last Admin: 08/18/24 07:14 Dose: 3 ml Apixaban (Apixaban 5 Mg Tablet) 5 mg PO BID [facility] Stop: 09/12/24 20:59 Last Admin: 08/13/24 20:26 Dose: 5 mg Atorvastatin Calcium (Atorvastatin 40 Mg Tab) 40 mg PO DAILY [facility] Stop: 09/13/24 08:59 Last Admin: 08/18/24 08:12 Dose: 40 mg Clopidogrel Bisulfate (Clopidogrel Bisulfate 75 Mg Tab) 75 mg PO QAM [facility] Stop: 09/13/24 08:59 Cyclobenzaprine HCl (Cyclobenzaprine Hcl 10 Mg Tab) 5 mg PO TID PRN PRN Reason: spasm Stop: 09/14/24 12:15 Last Admin: 08/15/24 20:26 Dose: 5 mg Dextrose (Dextrose 50% 50 Ml Syringe) 25 - 50 ml IV UD PRN; Protocol PRN Reason: Hypoglycemia Protocol Stop: 09/12/24 18:49 Diphenoxylate HCl/Atropine (Diphenoxylate/Atropine 2.5/0.025mg Tab) 1 tab PO QID PRN PRN Reason: Diarrhea Stop: 09/15/24 10:57 Filgrastim (Filgrastim 480 Mcg/0.8 Ml Syringe) 480 mcg SQ DAILY [facility] Stop: 08/20/24 10:59 Glucagon (Glucagon For Inj 1 Mg Vial) 1 mg SQ UD PRN; Protocol PRN Reason: Hypoglycemia Protocol Stop: 09/12/24 18:49 Glucose (Glucose 40% Gel 15 Gm Tube) 15 - 30 gm PO UD PRN; Protocol PRN Reason: Hypoglycemia Protocol Stop: 09/12/24 18:49 Glucose (Glucose 10 Tab/Tube) 4 - 8 tab PO UD PRN; Protocol PRN Reason: Hypoglycemia Protocol Stop: 09/12/24 18:49 Guaifenesin (Guaifenesin Sugar Free 200 Mg/10 Ml Udc) 200 mg PO Q8 [facility] Stop: 09/12/24 21:59 Last Admin: 08/18/24 05:13 Dose: Not Given Heparin Sodium (Porcine) (Heparin 100 Unit/Ml 5ml Flush) 5 ml FLUSH PRN PRN PRN Reason: Flush Stop: 09/14/24 01:40 Last Admin: 08/16/24 09:49 Dose: 5 ml Hydromorphone HCl (Hydromorphone Inj 0.5 Mg/0.5 Ml Syr) 0.5 mg IV Q6H PRN PRN Reason: Severe Pain (Scale 7, 8, 9,10) Stop: 08/31/24 09:57 Piperacillin Sod/Tazobactam Sod (Zosyn) 4.5 gm in 100 mls @ 33.3 mls/hr IV Q6H [facility]; Protocol Stop: 08/20/24 18:59 Last Admin: 08/18/24 08:08 Dose: 33.3 mls/hr Heparin Sodium/Dextrose (Heparin 72086 Unit/500 Ml D5w) 25,000 units in 500 mls @ 0 mls/hr IV .Q0M [facility]; Protocol Stop: 09/16/24 10:44 Last Admin: 08/18/24 08:22 Dose: Not Given Sodium Chloride (Nss) 500 mls @ 75 mls/hr IV .Q6H40M [facility] Stop: 08/18/24 12:09 Last Admin: 08/18/24 06:01 Dose: 75 mls/hr Levalbuterol HCl (Levalbuterol Hcl 0.63 Mg/3 Ml Neb) 0.63 mg NEB Q4H PRN; Protocol PRN Reason: Shortness Of Breath Or Wheezing Stop: 09/12/24 18:45 Levothyroxine Sodium (Levothyroxine Sodium 125 Mcg Tablet) 125 mcg PO DAILYBB [facility] Stop: 09/13/24 06:29 Last Admin: 08/18/24 05:17 Dose: 125 mcg Melatonin (Melatonin 3 Mg Tab) 3 mg PO HS PRN PRN Reason: Sleep Stop: 09/12/24 17:15 Last Admin: 08/15/24 20:26 Dose: 3 mg Metoprolol Succinate (Metoprolol Succ 25mg Ext Rel Tab) 12.5 mg PO DAILY [facility] Stop: 09/13/24 08:59 Last Admin: 08/18/24 08:12 Dose: 12.5 mg Miscellaneous (Carbohydrates For Hypoglycemia ) 15 - 30 gm PO UD PRN PRN Reason: Hypoglycemia Protocol Stop: 09/12/24 18:49 Last Admin: 08/13/24 21:25 Dose: 30 gm Olanzapine (Olanzapine 2.5 Mg Tab) 2.5 mg PO HS [facility] Stop: 09/12/24 20:59 Last Admin: 08/17/24 21:05 Dose: 2.5 mg Oxycodone/Acetaminophen (Oxycodone/Acetaminophen 5mg/325mg Tab) 1 tab PO Q4H PRN PRN Reason: Pain Stop: 08/31/24 09:57 Last Admin: 08/18/24 05:57 Dose: 1 tab Pantoprazole Sodium (Pantoprazole 40 Mg Tab) 40 mg PO BID [facility] Stop: 09/13/24 20:59 Last Admin: 08/18/24 08:12 Dose: 40 mg Paroxetine HCl (Paroxetine Hcl 20 Mg Tab) 20 mg PO HS [facility] Stop: 09/12/24 20:59 Last Admin: 08/17/24 21:04 Dose: 20 mg Psyllium Hydrophilic Mucilloid (Psyllium Or Guar Gum Fiber 4gm Packet) 4 gm PO QAM [facility] Stop: 09/17/24 08:59 Last Admin: 08/18/24 08:20 Dose: Not Given Sodium Chloride (Sodium Chlor 7% 4 Ml Neb) 4 ml NEB BIDR [facility] Stop: 09/12/24 18:59 Last Admin: 08/18/24 07:14 Dose: 4 ml Tamsulosin HCl (Tamsulosin Hcl 0.4 Mg Cap) 0.4 mg PO HS [facility] Stop: 09/12/24 20:59 Last Admin: 08/17/24 21:04 Dose: 0.4 mg PG Care Time/CCT Total # of Minutes Spent Total Time Spent with Patient: Total time spent is greater than 50% in coordination of care (as documented) at patient's floor/unit and/or counseling patient: [place] [address] IN/OBS CONSULT LVL 4,60M Patient Type New History Expanded Problem Focused Exam Expanded Problem Focused Medical Decision Making Low Complexity Diagnoses Palliative care by specialist Z51.5 Advance directive discussed with patient Z71.89 Counseling regarding goals of care Z71.89
[2024-08-18] MEDS: FILGRASTIM 480 MCG/0.8 ML SYRINGE SQ SCH (13:01)
[2024-08-18] MEDS: HYDROmorphone INJ 0.5 MG/0.5 ML SYR IV PRN (13:04)
--- NOTE | 2024-08-18 14:32 | Anesthesiology Consultation ---
Date of Service August 18, 2024 Assessment & Plan Chart Review Chart Review: Acceptable Risk for Surgery and Patient NOT seen in Pre Admission Testing Consults Requested none ASA ASA4 Proposed Anesthesia Anesthesia Type: MAC Risk / Benefits Reviewed With: PT / POA / Parent / Guardian, Accepts Plan and Informed Consent Obtained History Surgery Operation Date: 08/16/24 12:15 Proposed Procedures p Inferior Vena Cava Filter Insertion - Bill Bartlett MD Operation Date: 08/18/24 16:30 Proposed Procedures p Flexible Sigmoidoscopy Dr Lowe - Neil Lowe MD Height/Weight Height: 5 ft 11 in Weight: 86.3 kg Allergies Allergy/AdvReac Type Severity Reaction Status Date / Time rosuvastatin [From Crestor] Allergy Unknown HAPPENED A Verified 08/13/24 15:17 LONG TIME AGO. Medications Home Medications Medication Instructions Recorded Confirmed Last Taken levothyroxine 125 mcg tablet 125 mcg PO DAILYBB 03/25/18 08/13/24 08/13/24 08:00 nitroglycerin 0.4 mg sublingual 1 tab sublingual UD PRN Chest Pain 03/25/18 08/13/24 Unknown tablet clopidogrel 75 mg tablet 75 mg PO QAM 06/03/18 08/13/24 04/12/24 albuterol sulfate 2.5 mg/3 mL 2.5 mg inhalation QID PRN 08/19/19 08/13/24 01/13/20 (0.083 %) solution for nebulization Shortness Of Breath Or Wheezing apixaban 5 mg tablet (Eliquis) 5 mg PO AMHS 09/13/21 08/13/24 08/13/24 08:00 oxycodone-acetaminophen 5 mg-325 1 tab PO Q8H PRN pain #10 tabs 06/24/24 08/13/24 Unknown mg tablet (Percocet) olanzapine 2.5 mg tablet 2.5 mg PO HS 07/24/24 08/13/24 Unknown atorvastatin 40 mg tablet 40 mg PO DAILY 08/05/24 08/13/24 Unknown diphenoxylate-atropine 2.5 1 tab PO QID PRN Diarrhea 08/05/24 08/13/24 Unknown mg-0.025 mg tablet metoprolol succinate 25 mg 12.5 mg PO DAILY 08/05/24 08/13/24 Unknown tablet,extended release 24 hr mirtazapine 15 mg tablet 15 mg PO HS 08/05/24 08/13/24 Unknown pantoprazole 40 mg tablet,delayed 40 mg PO DAILY 08/05/24 08/13/24 08/13/24 08:00 release paroxetine HCl 20 mg tablet (Paxil) 20 mg PO HS 08/05/24 08/13/24 Unknown prednisone 10 mg tablets in a dose 40 mg (4 x 10 mg) PO DAILY 14 days 08/07/24 08/13/24 Unknown pack #33 ea tamsulosin 0.4 mg capsule 0.4 mg PO HS 08/13/24 08/13/24 Unknown Active Medications Generic Name Dose Route Start Last Admin Trade Name Freq PRN Reason Stop Dose Admin Acetaminophen 650 mg 08/13/24 17:16 08/16/24 23:21 Acetaminophen 325 Mg Tab PO 09/12/24 17:15 650 mg Q4H PRN Administration Pain or Fever Albuterol 3 ml 08/13/24 19:00 08/18/24 13:32 Albut/Ipratrop 3mg/0.5mg Neb 3 Ml Vial NEB 09/12/24 18:59 Not Given Q6R HUNG Protocol Apixaban 5 mg 08/13/24 21:00 08/13/24 20:26 Apixaban 5 Mg Tablet PO 09/12/24 20:59 5 mg BID HUNG Administration Atorvastatin Calcium 40 mg 08/14/24 09:00 08/18/24 08:12 Atorvastatin 40 Mg Tab PO 09/13/24 08:59 40 mg DAILY HUNG Administration Cyclobenzaprine HCl 5 mg 08/15/24 12:16 08/15/24 20:26 Cyclobenzaprine Hcl 10 Mg Tab PO 09/14/24 12:15 5 mg TID PRN Administration spasm Filgrastim 480 mcg 08/18/24 11:00 08/18/24 13:01 Filgrastim 480 Mcg/0.8 Ml Syringe SQ 08/20/24 10:59 480 mcg DAILY HUNG Administration Guaifenesin 200 mg 08/13/24 22:00 08/18/24 13:03 Guaifenesin Sugar Free 200 Mg/10 Ml Udc PO 09/12/24 21:59 Not Given Q8 HUNG Heparin Sodium (Porcine) 5 ml 08/15/24 01:41 08/16/24 09:49 Heparin 100 Unit/Ml 5ml Flush FLUSH 09/14/24 01:40 5 ml PRN PRN Administration Flush Hydromorphone HCl 0.5 mg 08/17/24 09:58 08/18/24 13:04 Hydromorphone Inj 0.5 Mg/0.5 Ml Syr IV 08/31/24 09:57 0.5 mg Q6H PRN Administration Severe Pain (Scale 7, 8, 9,10) Piperacillin Sod/Tazobactam Sod 4.5 gm in 100 mls @ 33.3 mls/hr 08/17/24 14:00 08/18/24 13:03 Zosyn IV 08/20/24 18:59 33.3 mls/hr Q6H HUNG Administration Protocol Heparin Sodium/Dextrose 25,000 units in 500 mls @ 0 mls/hr 08/17/24 10:45 08/18/24 08:22 Heparin 90489 Unit/500 Ml D5w IV 09/16/24 10:44 Not Given .Q0M HUNG Protocol 0 UNITS/HR Levothyroxine Sodium 125 mcg 08/14/24 06:30 08/18/24 05:17 Levothyroxine Sodium 125 Mcg Tablet PO 09/13/24 06:29 125 mcg DAILYBB HUNG Administration Melatonin 3 mg 08/13/24 17:16 08/15/24 20:26 Melatonin 3 Mg Tab PO 09/12/24 17:15 3 mg HS PRN Administration Sleep Metoprolol Succinate 12.5 mg 08/14/24 09:00 08/18/24 08:12 Metoprolol Succ 25mg Ext Rel Tab PO 09/13/24 08:59 12.5 mg DAILY HUNG Administration Miscellaneous 15 - 30 gm 08/13/24 18:50 08/13/24 21:25 Carbohydrates For Hypoglycemia PO 09/12/24 18:49 30 gm UD PRN Administration Hypoglycemia Protocol Olanzapine 2.5 mg 08/13/24 21:00 08/17/24 21:05 Olanzapine 2.5 Mg Tab PO 09/12/24 20:59 2.5 mg HS HUNG Administration Oxycodone/Acetaminophen 1 tab 08/17/24 09:58 08/18/24 05:57 Oxycodone/Acetaminophen 5mg/325mg Tab PO 08/31/24 09:57 1 tab Q4H PRN Administration Pain Pantoprazole Sodium 40 mg 08/14/24 21:00 08/18/24 08:12 Pantoprazole 40 Mg Tab PO 09/13/24 20:59 40 mg BID HUNG Administration Paroxetine HCl 20 mg 08/13/24 21:00 08/17/24 21:04 Paroxetine Hcl 20 Mg Tab PO 09/12/24 20:59 20 mg HS HUNG Administration Psyllium Hydrophilic Mucilloid 4 gm 08/18/24 09:00 08/18/24 08:20 Psyllium Or Guar Gum Fiber 4gm Packet PO 09/17/24 08:59 Not Given QAM HUNG Sodium Chloride 4 ml 08/13/24 19:00 08/18/24 07:14 Sodium Chlor 7% 4 Ml Neb NEB 09/12/24 18:59 4 ml BIDR UHNG Administration Tamsulosin HCl 0.4 mg 08/13/24 21:00 08/17/24 21:04 Tamsulosin Hcl 0.4 Mg Cap PO 09/12/24 20:59 0.4 mg HS HUNG Administration NPO Date Last Intake of Fluids: 08/18/24 Time Last Intake of Fluids: 08:00 Last Intake of Fluids Comment: sip with meds Date Last Intake of Solids: 08/17/24 Time Last Intake of Solids: 21:00 Past Medical History Medical History S/P radiation therapy Thyroid disease Back problem Moderate aortic stenosis Acute electrocardiogram changes Difficult airway for intubation H/o glidescope #4 with CEA 03/2018 Carotid artery stenosis with cerebral infarction over 8 weeks ago The patient presented to [facility] ED on 03/26/18 with expressive aphasia, left upper extremity numbness, left lower extremity weakness. Symptoms were resolving by the time the patient arrived in the ED. 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 on CPAP no longer on CPAP post tracheostomy Exercise / Class Metabolic Activity IV < 2 Limit ADL/Bedbound Past Family History Family History Mother Essential hypertension Stroke Sister Cancer Breast cancer Daughter Cancer Colon cancer Past Surgical History Surgical History Hx of laryngectomy (~1999) History of bronchoscopy History of tonsillectomy History of carotid endarterectomy RIGHT (MARCH 2018) History of cataract extraction with lens replacement cataract extraction with IOL implant and LRI left eye - 05/02/12 History of colonoscopy with polypectomy History of rotator cuff surgery Right - 2009 History of coronary artery bypass graft X2 VESSEL 1995 -- [facility] Past Anesthesia History No Hx of Anesthesia Complications and No Family Hx of Anesthesia Complications History of PONV No Hx of PONV and No Hx of Motion Sickness Social History Smoking Status: Former smoker tobacco type: cigarettes Do You Dip or Chew Tobacco: No Hx Alcohol Use: No Alcohol type: beer and hard liquor alcohol intake frequency: holidays/special occasions only Hx Substance Use: No substance use type: does not use Review of Systems Respiratory: + chest congestion and + dyspnea Gastrointestinal: + hematemesis, + blood in stools and + melena Musculoskeletal: + muscle weakness Integumentary: + problem reported 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 Neurologic: + generalized weakness Psychiatric: as per Subjective / HPI Endocrine: as per Subjective / HPI Hematologic / Lymphatic: as per Subjective / HPI and + lymphadenopathy Physical Exam Vital Signs Last Vital Signs Temp 36.5 C 08/18/24 14:00 Pulse 63 08/18/24 14:00 Resp 16 08/18/24 14:00 BP 102/43 L 08/18/24 14:00 Pulse Ox 97 08/18/24 14:00 O2 Del Method Room Air 08/18/24 14:00 O2 Flow Rate 8 08/17/24 07:22 FiO2 21 08/18/24 01:59 Constitutional + cachectic; no acute distress ENMT Mouth: + restricted motion of mouth and + poor dentition has tracheostomy in place (?5 years) Neck + limited neck extension trachesostomy stoma Respiratory normal respiratory effort Auscultation: + rhonchi Cardiovascular Rate/Rhythm: regular rate and regular rhythm Heart Sounds: + murmur Musculoskeletal Spine: + limited cervical ROM Skin bruuising Neurologic moves all extremities Psychiatric Orientation: alert and oriented x 3 Testing Laboratory Results 08/18/24 06:45 08/18/24 06:45 PT 11.4 Seconds (9.0-12.0) 08/13/24 13:23 INR 1.1 (0.9-1.1) 08/13/24 13:23 Urine Color Yellow 08/13/24 23:56 Urine Appearance Clear (Clear) 08/13/24 23:56 Urine pH 5.0 (4.5-7.5) 08/13/24 23:56 Ur Specific [place] 1.021 (1.000-1.030) 08/13/24 23:56 Urine Protein 1+ (Negative) H 08/13/24 23:56 Urine Glucose (UA) Negative (Negative) 08/13/24 23:56 Urine Ketones Negative (Negative) 08/13/24 23:56 Urine Nitrite Negative (Negative) 08/13/24 23:56 Ur Leukocyte Esterase Negative (Negative) 08/13/24 23:56 Urine WBC (Auto) 0-5 /hpf (0-5) 08/13/24 23:56 Urine RBC (Auto) 0-2 /hpf (0-2) 08/13/24 23:56 U Hyaline Cast (Auto) 6-10 /lpf (0-2) H 08/13/24 23:56 U Epithel Cells (Auto) 0-2 /hpf (0-2) 08/13/24 23:56 Urine Bacteria (Auto) None Seen (None Seen) 08/13/24 23:56 Blood Type O Positive 08/14/24 00:24 Antibody Screen NEGATIVE 08/14/24 00:24 08/13/24 22:28 Gram Stain - Final Sputum,Trach Sputum Culture - Final Linda albicans/dubliniensis Pseudomonas aeruginosa 08/13/24 14:50 Aerobic Blood Culture - Preliminary Blood No growth in Aerobic bottle after 48 hours. Anaerobic Blood Culture - Preliminary No growth in Anaerobic bottle after 48 hours. 08/13/24 14:50 Aerobic Blood Culture - Preliminary Blood No growth in Aerobic bottle after 48 hours. Anaerobic Blood Culture - Preliminary No growth in Anaerobic bottle after 48 hours. 08/18/24 08/18/24 11:59 07:16 POC Glucose 88 77
--- NOTE | 2024-08-18 15:50 | GI REPORT ---
[facility] Patient: ALEXANDRA PETERS : 1940 Sex at : Male Age: 84 Years Procedure: Flexible Sigmoidoscopy Date: 08/18/2024 Attending Physician: Neil Lowe MD Referring MD: Referred Self Indications: - Rectal pain Medications: - See the Anesthesia note for documentation of the administered medications Complications: - No immediate complications. Estimated Blood Loss: - Estimated blood loss was minimal. Procedure: - The pediatric colonoscope was introduced through the anus and advanced to the distal sigmoid colon. - The flexible sigmoidoscopy was accomplished without difficulty. - The patient tolerated the procedure well. - The quality of the bowel preparation was fair. Findings: - The digital rectal exam findings include rectal tenderness and decreased sphincter tone, incontinent formed stool and skin excoriation as before. - The rectum appeared normal grossly normal; there was very mild mucosal irritation and some leukoplakia like changes of the anoderm but no distinct anal fissure, growth or other visual explanation for pain/tenderness. Impression: - Preparation of the colon was fair. - Rectal tenderness found on digital rectal exam. - The rectum is grossly normal. Pain may be due to skin excoriation or other factors - No specimens collected. Recommendation: - Continue present medications. [place] topical lidocaine; continue psyllium trial; wound care Procedure Code(s): - 26536, Sigmoidoscopy, flexible; diagnostic, including collection of specimen(s) by brushing or washing, when performed (separate procedure) Diagnosis Code(s): - K62.89, Other specified diseases of anus and rectum CPT(R) - 2023 copyright [employer]. All Rights Reserved. The CPT codes, CCI edits and ICD codes generated are intended as suggestions and were generated based on input data. These codes are preliminary and upon cabinetmaker maintenance review may be revised to meet current compliance and payer requirements. The provider is responsible for the final determination of appropriate codes, and modifiers. Neil Lowe MD This document has been electronically signed. Note Initiated:08/18/2024 Note Completed:08/18/2024 3:49 PM \\[id number]
--- NOTE | 2024-08-18 15:56 | Anesthesiology Progress Note ---
Date of Service August 18, 2024 Anesthesia Post Procedure Vital Signs Vital Signs: Temp Pulse Pulse Pulse Resp BP Pulse Ox 08/18/24 15:47 62 18 93/41 L 97 08/18/24 14:00 36.5 C 63 16 102/43 L 97 08/18/24 11:16 36.5 C 62 16 116/63 93 08/18/24 09:38 102 H 08/18/24 09:38 08/18/24 07:18 36.9 C 85 19 128/70 97 08/18/24 07:14 75 18 98 08/18/24 03:30 37.2 C 90 20 136/58 L 93 08/18/24 01:59 77 17 95 08/17/24 23:07 74 08/17/24 22:41 36.6 C 67 18 120/43 L 93 08/17/24 21:46 08/17/24 20:51 66 18 94 08/17/24 19:41 37.4 C 71 19 114/41 L 94 O2 Del Method FiO2 08/18/24 15:47 Room Air 08/18/24 14:00 Room Air 08/18/24 11:16 Room Air, Trach Collar 08/18/24 09:38 08/18/24 09:38 Room Air, Trach Collar 08/18/24 07:18 Room Air 08/18/24 07:14 Room Air 08/18/24 03:30 Room Air, Trach Collar 08/18/24 01:59 Trach Collar 21 08/17/24 23:07 08/17/24 22:41 Room Air 08/17/24 21:46 Room Air, Trach Collar 08/17/24 20:51 Trach Collar 28 08/17/24 19:41 Room Air Pain Intensity Right Leg: Pain Intensity: 8 Buttock: Pain Intensity: 3 Transfer of Care Handoff Completed per policy Notes Mental Status: alert / awake / arousable and participated in evaluation Patient Amnestic to Procedure: Yes Nausea / Vomiting: adequately controlled Pain: adequately controlled Airway Patency, RR, SpO2: stable & adequate BP & HR: stable & adequate Hydration State: stable & adequate Anesthetic Complications: no major complications apparent and Pt Satisfied with anesthetic care
[2024-08-18] MEDS: LIDOCAINE 5% OINT 30 GM TUBE EXT PRN (16:45)
[2024-08-18] MEDS: PROPOFOL IV EMULSION 10 MG/ML 20 ML VIAL IV ONE (16:48)
[2024-08-18] MEDS: LIDOCAINE 2% 2 ML VIAL/AMP(20MG/ML) INFIL ONE (16:48)
[2024-08-18] MEDS: HEPARIN 25000 UNIT/500 ML D5W 25,000 UNITS/500 ML BAG IV SCH (17:49)
[2024-08-18] MEDS: Heparin IV Adult Wt-Based Standard w/ INITIAL Bolus Protocol IV SCH (18:45)
[2024-08-19 01:32] LABS: ANTI-Xa, UFH(UnfractionatedHep 0.13 IU/ml (0.3-0.7)
[2024-08-19] MEDS: HEPARIN SOD (PORCINE) 1000 UNIT/ML IV ONE ×3 (02:19→17:28)
[2024-08-19 09:02] LABS: BUN Creatinine Ratio 35.1 (10-20); Creatinine Clr Calc Pharmacy 74.7 ml/min; Potassium 3.2 mmol/L (3.5-5.1)
[2024-08-19 09:07] LABS: ANTI-Xa, UFH(UnfractionatedHep 0.14 IU/ml (0.3-0.7)
[2024-08-19 09:18] LABS: Hematocrit (blood only) 20.8 % (42.0-52.0); Mean Corpuscular Hemoglobin 29.2 pg (25.0-34.0); Mean Corpuscular Hgb Conc 33.7 g/dL (32.0-36.0); Mean Corpuscular Volume 86.7 fL (80.0-100.0); Mean Platelet Volume 10.7 fL (9.4-12.4); Platelet Count 104 K/uL (130-400); RDW Coefficient of Variation 16.7 % (11.5-14.5); RDW Standard Deviation 52.6 fL (36.4-46.3); White Blood Count 1.77 K/ul (4.8-10.8)
[2024-08-19 09:25] LABS: Dohle Bodies 2+; Eosinophils # (auto) 0.03 K/uL (0.00-0.50); Eosinophils % (auto) 1.7 %; Giant Platelets 1+; Immature Granulocytes # (auto) 0.02 K/uL (0.01-0.20); Immature Granulocytes % (auto) 1.1 %; Lymphocytes # (auto) 0.22 K/uL (1.20-3.40); Lymphocytes % (auto) 12.4 %; Monocytes # (auto) 0.23 K/uL (0.11-0.59); Neutrophils # (auto) 1.27 K/uL (1.40-6.50); Neutrophils % (auto) 71.8 %; Ovalocytes 1+; Toxic Granulation 1+
[2024-08-19] MEDS ORDERED: SODIUM CHLORIDE 0.9% 100 ML IV PRN (09:25)
[2024-08-19] MEDS: POTASSIUM CHLORIDE / WTR 10 MEQ/100 ML PLCT IV SCH (09:36)
--- NOTE | 2024-08-19 09:44 | Gastroenterology Progress Note ---
<Statement entered by Neil Lowe MD - 08/19/24 15:12> I have reviewed the history, physical exam, lab and imaging findings as dictated by the mid-level provider, made any necessary modifications, and agree with the stated assessment and recommendations. A total of 35 minutes was spent in the chart/data review, direct observation, decision making and discussion of this case with the mid level provider, patient/family and other providers. Date of Service August 19, 2024 Assessment & Plan (1) Rectal pain: Plan: -Continue topical lidocaine -Continue Metamucil daily -Avoid constipation -If rectal pain persists, consider repeat CT abd/pelvis to assess for abscess Admission and Anticipated Discharge Date Admission Date: August 13, 2024 Subjective Patient is an 84 yo male with rectal pain. He underwent a flex sig to assess for source of rectal pain. No obvious findings. Stool noted. Patient notes he is feeling OK. He doesn't feel as though his pain is worsening. Review of Systems Gastrointestinal: no abdominal pain some rectal pain Physical Exam Gastrointestinal (Abdomen): normal bowel sounds, soft, nontender, no hepatosplenomegaly Results & Data Results & Data Vital Signs (Past 12 Hours) Vital Signs Temp Pulse Resp BP Pulse Ox O2 Del Method 08/19/24 07:26 36.5 C 74 20 122/43 L 91 Room Air 08/19/24 02:54 36.7 C 60 16 122/47 L 92 Room Air 08/18/24 22:57 36.6 C 63 19 95/50 L 94 Room Air PG Care Time/CCT Total # of Minutes Spent Total Time Spent with Patient: Total time spent is greater than 50% in coordination of care (as documented) at patient's floor/unit and/or counseling patient: Coding Level of Care Code 70903 SUB INP/OBS CARE 2/35MIN Diagnoses Rectal pain K62.89
--- NOTE | 2024-08-19 11:00 | Palliative Family Discussion ---
Date of Service August 19, 2024 Patient Directed Conference Time of Meetin:30 - Participants:Sary Mcclendon AGACNP Patient participation: yes Patient Support System: spouse Other Healthcare Provider Participation: None Meeting Location: conference room Advanced Directive available: No If yes, descriptors: Pt reports having completed AD/LW but unclear what was documented. Encouraged that he have spouse bring in a copy. The patient's surrogate medical decision maker participated: spouse was present Legally authorized health care proxy: KANDI, spouse Sheron Locke Other surrogate: adult children A family meeting was held for ALEXANDRA LOCKE. This meeting was necessary for determining the appropriate course of treatment. Topics of Discussion Topics of Discussion: 1. Quality of life 2. Advanced directive 3. Goals of care 4. Code status Other Content of Meetin. Opportunity given for participants to speak and ask questions. 2. Participants were assured of attention to patient comfort. 3. Reassurance provided. 4. Support was provided for informed, good-robert decisions. 5. Emotions expressed by family were acknowledged and addressed. 6. Follow-up Outpatient: Pt willl follow with outpt palliative care for ongoing symptom mgmt and navigation 7. Plan of Care: continue current level of care; full code/full treat Met with the pt "Barber" and his (Tiffany) at bedside. Pt has had total la ryngectomy with tracheal stoma and does have some difficulty speaking but is able to communicate through whisper speech and writing. Introduced Palliative Medicine and explained our role in advanced care planning, symptom management and navigation through the progression of life limiting disease. Patient and/or family were receptive to palliative services for goals of care discussions. Reviewed we are different from hospice, a home health nurse visiting service. Patient currently exhibits decisional capacity based on the ability to convey understanding of personal PMHx, current medical condition, treatment options nor the risks / benefits of those options, and lack of ability to make decisions based on such knowledge. Hospital does not have written documentation of patient wishes concerning his chosen proxy for medical decisions. Per PA [id number], in absence of written documentation of patient wishes, pt's proxy for medical de cisions would be his spouse Tiffany. Pt does not currently require a proxy for medical decisions. Jarad shared that he does have a properly executed advance directive at home, but is unclear what it reflects. I encouraged that Tiffany bring it to hospital when able, she agrees. Pt shared that his chosen proxy for medical decisions would be his , and if she is unavailable his adult children. Tiffany agreeable to be his primary proxy. Jarad shared that he has had a good quality of life at home until the past 3 weeks when he has just felt "weak" with no desire to get out of bed or do anything that he previously enjoyed. He shared that he has been continuing cancer directed treatments, with last oncology appt being 3 weeks ago. He shared that since then, he has been lethargic with no appetite and is losing weight. He expressed wish to continue current course of treatments with hopes to return to his previous life, Jarad expressed concern that the cancer directed treatments seem to be causing "other issues" but at this time, he is pain free with minimal symptom burden. He expressed clearly a desire to continue all life prolonging therapies with hopes to return to prior level of function. He shared hopes that with improved nutrition he will have more energy to pursue things that bring him colton. He shared that he has had a feeding tube in the past (NGT) and would consider tube feeds if that would improve his health. He shared that he feels that his weight "has stabilized" in past week and he is not needing to discuss alternatives at this time. Discussed code status and helped Barber and Tiffany understand that CPR is only done after a person has and involves uncomfortable and invasive procedures that, if successful, have high risk of multiple complications including but not limited to rib fractures, pneumo/hemothorax, FIDELINA, ventilator dependence, anoxic brain injury, and skilled nursing/permanent cognitive and functional deficits. CPR survival: Only about 10% of patients who have in hospital sudden cardiac arrest survive to hospital discharge, with many survivors having neurologic impairment. This rate is even lower among patients with serious coexisting conditions, ie chance of survival to hospital discharge for in-hospital CPR in older people is low to moderate (15%) and decreases with age, comorbidities, performance status and frailty: for pts > 70 yo, more than half of the patients who initially survived resuscitation in the hospital before hospital discharge. The pooled survival to discharge after in-hospital CPR was 18% for patients between 70 and 79 years old, 15% for patients between 80 and 89 years old and 11% for patients of 90 years and older. (Cooper CHAVEZ, Blake AVELAR, Lilli F, et al. Trends in short- and long-term survival among [id number] cardiac arrest patients alive at hospital arrival. Circulation 2014;130:3370-0298. AND Kevin Mandujano, Capri T, Rafaela R, et al. Performance of clinical risk scores to predict mortality and neurological outcome in cardiac arrest patients. Resuscitation 2019;136:21-29.) Pt states that he would not want to be kept alive on machines skilled nursing, but would want a trial of resuscitation/mechanical ventilation. He could not further qualify what a "trial" would mean to him and responded in writing "Doctors decide". I helped them to understand that the doctors would give medical information but leave the decision to his if his wishes are not made clear verbally or in writing by him. Ultimately the pt and his request FULL CODE - all interventions continue to prolong his life, they will continue to discuss this as family and review his AD/LW for clarification. Discussed follow up with outpt palliaitive care team for ongoing navigation through the progression of disease, pt and agreeable. Pt will be scheduled for follow up appt with palliative care clinic. Time Involved in Meeting: I spent 65 minutes overall addressing this case: 10 in medical data review/discussion with referring provider(s) and/or preparation for the visit 35 in direct interaction with the patient and his 35 Advance Care Planning/Goals of Care discussions as detailed above in note (must be >16min) 10 in subsequent review and synthesis of assessment and plan 10 in communicating with other providers regarding the patient's case: BSRN and attending
--- NOTE | 2024-08-19 12:33 | Hospitalist Progress Note ---
Date of Service August 19, 2024 Assessment & Plan (1) Sepsis: (2) Acute hypoxemic respiratory failure: (3) Mucus plug in respiratory tract: (4) Hematochezia: (5) Immunosuppressed due to chemotherapy: (6) Current chronic use of systemic steroids: Plan Mr. 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 Recent admissions [facility] 07/24- for right lower leg swelling +dvt, saw heme/onc who he sees for metastatic cancer, felt likely when stopped Eliquis for left leg port. [facility] 08/05- for diarrhea and hypotension #Acute hypoxic respiratory failure #Pneumonia # Neutropenia Patient presented with shortness of breath, cough CT chest shows patchy area of consolidation Sputum culture growing Pseudomonas Continue on Zosyn, end date of 08/20/2024 Continue on hypertonic saline Chasidy rayo Continue chest clearance therapy Patient has chemotherapy-induced neutropenia; discussed with oncology on 08/18; Was given Neupogen. 480 mcg subcu with improvement of ANC to greater than thousand. Will stop Neupogen for now. #RLE swelling #Recent DVT of right lower extremity Status post IVC placement on 08/16/2024 Episode of BRBPR -Occurred after he stopped Eliquis for a port replacement LLE - Venous duplex from 07/24 showed extensive deep vein thrombosis in right lower extremity Patient's hemoglobin dropped to 6.6 on 08/14; Eliquis was kept on hold and IVC filter was placed on 08/16. Reported some small drops of blood in diaper mixed with diarrhea. Hemoccult was positive. Discussed with patient's oncologist Dr. Monroy on 08/17; plan to restart heparin given significant right lower extremity swelling and monitor for recurrence of bleeding. Patient reported history of rectal polyp and wanted GI to evaluate him; Flex sig done on 08/18 did not show any polyp or bleeding. Heparin continued; plan to resume Eliquis if patient continues to tolerate heparin 1 unit of packed RBC ordered given hemoglobin of 7.0 on 08/19/2024 #Hypotension #Weakness #Chronic Steroid Use Concern for possible impending iatrogenic adrenal insufficiency as patient has received multiple doses of steroids Random cortisol - unremarkable Continue recently prescribed steroid tapers (started 40mg x 5 days on 08/07, now on 20mg x 5 days (EOT 08/15) then 10 mg x2 days, 5mg x2 days. finished prednisone course #Pressure ulcer, POA - ruled out Evaluated by wound care- Pt does not have a pressure ulcer but does have medial sacrum moisture associated dermatitis #Moderate aortic stenosis #Chronic Heart failure with preserved ejection fraction ECHO 11/2023 with EF 55-59%, follows cards op -Moniotor #CAD -Status post CABG 1995 -On Plavix and statin and beta-liliana -continue toprol Plavix is on hold now #Paroxysmal atrial fibrillation #Sick sinus syndrome status post pacemaker -continue toprol -on eliquis; on hold. 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 #Status post total laryngectomy right neck dissection, subtotal -Currently On Keytruda and chemotherapy; last session 08/09 -Monitor for mucous plugging of tracheal stoma -Last admission was started on Prednisone taper for diarrheas from immunotherapy; Follow up oncology as an outpatient #thyroidectomy, acquired hypothyroidism continue synthroid #Dysphagia #Protein reji malnutrition reports needing some softer diet, noting issues with certain pills DVT -heparin Full code Admit PCU for aggressive suctioning, tele monitoring, and nursing care Time spent evaluating patient, direct bedside care, chart review, placing orders, interpretation of diagnostic studies, discussion with consultants, patient, and family members, as well as other required patient management activities is 50 minutes Please note the above document was generated using voice recognition software. It may contain grammatical, syntax or spelling errors. Any formal questions or concerns about the content, text or information contained within the body of this dictation should be directly addressed to the provider for clarification Admission and Anticipated Discharge Date Admission Date: August 13, 2024 Subjective Patient seen and examined at bedside. He appears comfortable; not in distress. He denies any pain in perianal region. Denies fever, chills, shortness of breath or chest pain. No significant events overnight Review of Systems Review of Systems: All systems reviewed & are unremarkable except as noted in Subjective Physical Exam Physical Exam: Constitutional: Alert oriented x 3; not in distress Neck; tracheostomy present Respiratory: Bilateral occasional crackles present Cardiovascular: RRR, no murmur, no edema Vessels: no JVD or carotid bruit Chest: normal inspection of chest Abdomen: normal bowel sounds, soft, nontender, no hepatosplenomegaly Musculoskeletal: swelling of right lower extremity with 2+ pitting edema Neurologic: PERRL, EOMI, accommodation nl, no face palsy, no dysarthria CN's II- XI intact bilaterally and moves all extremities Results & Data Results & Data Vital Signs (Past 12 Hours) Vital Signs Temp Pulse Resp BP Pulse Ox O2 Del Method 08/19/24 11:39 36.9 C 90 28 H 116/61 93 Room Air 08/19/24 10:08 Room Air 08/19/24 07:26 36.5 C 74 20 122/43 L 91 Room Air 08/19/24 02:54 36.7 C 60 16 122/47 L 92 Room Air
[2024-08-19 16:48] LABS: ANTI-Xa, UFH(UnfractionatedHep 0.18 IU/ml (0.3-0.7)
[2024-08-19 23:42] LABS: ANTI-Xa, UFH(UnfractionatedHep 0.29 IU/ml (0.3-0.7)
[2024-08-20] MEDS: LIDOCAINE 4% CREAM 15 GM TUBE EXT SCH (00:14)
[2024-08-20 08:20] LABS: Hematocrit (blood only) 24.4 % (42.0-52.0); Hemoglobin 8.2 g/dl (14.0-18.0); Mean Corpuscular Hemoglobin 28.7 pg (25.0-34.0); Mean Corpuscular Hgb Conc 33.6 g/dL (32.0-36.0); Mean Corpuscular Volume 85.3 fL (80.0-100.0); RDW Coefficient of Variation 16.2 % (11.5-14.5); RDW Standard Deviation 49.8 fL (36.4-46.3); Red Blood Count 2.86 M/uL (4.70-6.10)
[2024-08-20 08:24] LABS: ANTI-Xa, UFH(UnfractionatedHep 0.33 IU/ml (0.3-0.7)
--- NOTE | 2024-08-20 08:26 | Hospitalist Progress Note ---
Date of Service August 20, 2024 Assessment & Plan (1) Sepsis: (2) Acute hypoxemic respiratory failure: (3) Mucus plug in respiratory tract: (4) Hematochezia: (5) Immunosuppressed due to chemotherapy: (6) Current chronic use of systemic steroids: Plan Mr. 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 Recent admissions [facility] 07/24- for right lower leg swelling +dvt, saw heme/onc who he sees for metastatic cancer, felt likely when stopped Eliquis for left leg port. [facility] 08/05- for diarrhea and hypotension #Acute hypoxic respiratory failure #Pneumonia # Neutropenia Patient presented with shortness of breath, cough CT chest shows patchy area of consolidation Sputum culture growing Pseudomonas Continue on Zosyn, end date of 08/20/2024 Continue on hypertonic saline Chasidy rayo Continue chest clearance therapy Patient has chemotherapy-induced neutropenia; discussed with oncology on 08/18; Was given Neupogen. 480 mcg subcu with improvement of ANC to greater than thousand. got 2 doses of neupogen #RLE swelling #Recent DVT of right lower extremity Status post IVC placement on 08/16/2024 Episode of BRBPR -Occurred after he stopped Eliquis for a port replacement LLE - Venous duplex from 07/24 showed extensive deep vein thrombosis in right lower extremity Patient's hemoglobin dropped to 6.6 on 08/14; Eliquis was kept on hold and IVC filter was placed on 08/16. Reported some small drops of blood in diaper mixed with diarrhea. Hemoccult was positive. Discussed with patient's oncologist Dr. Monroy on 08/17; plan to restart heparin given significant right lower extremity swelling and monitor for recurrence of bleeding. Patient reported history of rectal polyp and wanted GI to evaluate him; Flex sig done on 08/18 did not show any polyp or bleeding. 1 unit of packed RBC ordered given hemoglobin of 7.0 on 08/19/2024 Heparin to be switch over to Eliquis on 08/20/2024 at 9pm. #Hypotension #Weakness #Chronic Steroid Use Concern for possible impending iatrogenic adrenal insufficiency as patient has received multiple doses of steroids Random cortisol - unremarkable Continue recently prescribed steroid tapers (started 40mg x 5 days on 08/07, now on 20mg x 5 days (EOT 08/15) then 10 mg x2 days, 5mg x2 days. finished prednisone course #Pressure ulcer, POA - ruled out Evaluated by wound care- Pt does not have a pressure ulcer but does have medial sacrum moisture associated dermatitis #Moderate aortic stenosis #Chronic Heart failure with preserved ejection fraction ECHO 11/2023 with EF 55-59%, follows cards op -Monitor #CAD -Status post CABG 1995 -On Plavix and statin and beta-liliana - continue toprol #Paroxysmal atrial fibrillation #Sick sinus syndrome status post pacemaker -continue toprol -on eliquis; #Peripheral vascular disease #History of TIA secondary to bilateral carotid stenosis status post right CEA 02/2018 and left CEA 05/2018 -Continue on statin and plavix #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 #Status post total laryngectomy right neck dissection, subtotal -Currently On Keytruda and chemotherapy; last session 08/09 -Monitor for mucous plugging of tracheal stoma -Last admission was started on Prednisone taper for diarrheas from immunotherapy; Follow up oncology as an outpatient #thyroidectomy, acquired hypothyroidism continue synthroid #Dysphagia #Protein reji malnutrition reports needing some softer diet, noting issues with certain pills DVT -heparin Full code Admit PCU for aggressive suctioning, tele monitoring, and nursing care Disposition- Plan for possible dc tomorrow am if patient continues to tolerate anticoagulation. Patient has significant perianal excoriation due to incontinent; will continue evans catheter and possibly do trial of void after improvement of incontinence at home with home health Time spent evaluating patient, direct bedside care, chart review, placing orders, interpretation of diagnostic studies, discussion with consultants, patient, and family members, as well as other required patient management activities is 50 minutes Please note the above document was generated using voice recognition software. It may contain grammatical, syntax or spelling errors. Any formal questions or concerns about the content, text or information contained within the body of this dictation should be directly addressed to the provider for clarification Admission and Anticipated Discharge Date Admission Date: August 13, 2024 Subjective Patient seen and examined at bedside. He is comfortable; he denies fever, chills, chest pain, abdominal pain or urinary symptoms Review of Systems Review of Systems: All systems reviewed & are unremarkable except as noted in Subjective Physical Exam Physical Exam: Constitutional: Alert oriented x 3; not in distress Neck; tracheostomy present Respiratory: Bilateral occasional crackles present Cardiovascular: RRR, no murmur, no edema Vessels: no JVD or carotid bruit Chest: normal inspection of chest Abdomen: normal bowel sounds, soft, nontender, no hepatosplenomegaly Musculoskeletal: swelling of right lower extremity with 2+ pitting edema Neurologic: PERRL, EOMI, accommodation nl, no face palsy, no dysarthria CN's II- XI intact bilaterally and moves all extremities Results & Data Results & Data Vital Signs (Past 12 Hours) Vital Signs Temp Pulse Resp BP Pulse Ox O2 Del Method 08/20/24 07:19 36.7 C 74 19 125/47 L 94 Room Air 08/20/24 02:30 36.7 C 82 20 160/60 H 96 Room Air 08/19/24 22:07 36.6 C 67 19 128/55 L 94 Room Air
[2024-08-20 08:27] LABS: BUN Creatinine Ratio 35.6 (10-20); Basophils # (auto) 0.03 K/uL (0.00-0.20); Basophils % (auto) 0.4 %; Calcium 7.2 mg/dl (8.6-10.3); Creatinine Clr Calc Pharmacy 78.8 ml/min; Dohle Bodies 3+; Echinocytes 2+; Eosinophils # (auto) 0.03 K/uL (0.00-0.50); Eosinophils % (auto) 0.4 %; Immature Granulocytes # (auto) 0.42 K/uL (0.01-0.20); Immature Granulocytes % (auto) 5.5 %; Lymphocytes % (auto) 5.2 %; Mean Platelet Volume 10.4 fL (9.4-12.4); Monocytes # (auto) 0.42 K/uL (0.11-0.59); Monocytes % (auto) 5.5 %; Neutrophils # (auto) 6.39 K/uL (1.40-6.50); Platelet Count 116 K/uL (130-400); Tear Drop Cells 1+; Toxic Granulation 1+; White Blood Count 7.69 K/ul (4.8-10.8)
[2024-08-20] MEDS: POTASSIUM CHLORIDE / WTR 10 MEQ/100 ML PLCT IV SCH (09:48)
--- NOTE | 2024-08-20 09:55 | Gastroenterology Progress Note ---
Date of Service August 20, 2024 Assessment & Plan (1) Rectal pain: Plan: Pain seems to have responded to treatment. Would continue as before. Admission and Anticipated Discharge Date Admission Date: August 13, 2024 Subjective Patient tells me he has no more anal/rectal pain. He says it is much better Physical Exam Physical Exam: He looks ill but content with current problem Constitutional: WD/WN, vitals as above Results & Data Vital Signs (Past 12 Hours) Vital Signs Temp Pulse Resp BP Pulse Ox O2 Del Method 08/20/24 09:00 Room Air 08/20/24 07:19 36.7 C 74 19 125/47 L 94 Room Air 08/20/24 02:30 36.7 C 82 20 160/60 H 96 Room Air 08/19/24 22:07 36.6 C 67 19 128/55 L 94 Room Air
[2024-08-20] MEDS ORDERED: ALBUT/IPRATROP 3MG/0.5MG NEB 3 ML VIAL NEB PRN (13:30)
[2024-08-20] MEDS ORDERED: SODIUM CHLOR 7% 4 ML NEB NEB PRN (13:31)
[2024-08-20] MEDS: APIXABAN 5 MG TABLET PO SCH (21:08)
[2024-08-21 07:13] VITALS: TEMP 98.1
[2024-08-21 07:18] LABS: ANTI-Xa, UFH(UnfractionatedHep 0.32 IU/ml (0.3-0.7)
[2024-08-21] MEDS: CLOPIDOGREL BISULFATE 75 MG TAB PO SCH (10:04)
[2024-08-21] MEDS ORDERED: Nursing to Pharmacy Communication SCH (10:30)
[2024-08-21] MEDS: POTASSIUM CHLORIDE CRTAB 20 MEQ TABCR PO STA (10:42)
[2024-08-21 11:10] VITALS: RESP 19; O2SAT 96
--- NOTE | 2024-08-21 12:45 | Hospitalist Progress Note ---
Date of Service August 21, 2024 Assessment & Plan (1) Sepsis: (2) Acute hypoxemic respiratory failure: (3) Mucus plug in respiratory tract: (4) Hematochezia: (5) Immunosuppressed due to chemotherapy: (6) Current chronic use of systemic steroids: Plan Mr. 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 Recent admissions [facility] 07/24- for right lower leg swelling +dvt, saw heme/onc who he sees for metastatic cancer, felt likely when stopped Eliquis for left leg port. [facility] 08/05- for diarrhea and hypotension #Acute hypoxic respiratory failure #Pneumonia # Neutropenia Patient presented with shortness of breath, cough CT chest shows patchy area of consolidation Sputum culture growing Pseudomonas- received intravenous Zosyn and finish the course on 08/20/2024 Has been receiving nebulized solutions for respiratory symptoms Neutropenia improved with use of Neupogen The blood counts remain stable to be discharged #RLE swelling #Recent DVT of right lower extremity Status post IVC placement on 08/16/2024 Episode of BRBPR -Occurred after he stopped Eliquis for a port replacement LLE - Venous duplex from 07/24 showed extensive deep vein thrombosis in right lower extremity Patient's hemoglobin dropped to 6.6 on 08/14; Eliquis was kept on hold and IVC filter was placed on 08/16. Reported some small drops of blood in diaper mixed with diarrhea. Hemoccult was positive. Discussed with patient's oncologist Dr. Monroy on 08/17; plan to restart heparin given significant right lower extremity swelling and monitor for recurrence of bleeding. Patient reported history of rectal polyp and wanted GI to evaluate him; Flex sig done on 08/18 did not show any polyp or bleeding. 1 unit of packed RBC ordered given hemoglobin of 7.0 on 08/19/2024 Heparin to be switch over to Eliquis on 08/20/2024 at 9pm. Has been getting Eliquis and Plavix has been restarted as well Right leg swelling persist and will improve gradually as expected #Hypotension #Weakness #Chronic Steroid Use Concern for possible impending iatrogenic adrenal insufficiency as patient has received multiple doses of steroids Random cortisol - unremarkable Continue recently prescribed steroid tapers (started 40mg x 5 days on 08/07, now on 20mg x 5 days (EOT 08/15) then 10 mg x2 days, 5mg x2 days. finished prednisone course Will go home on tapered dose of steroid as advised #Pressure ulcer, POA - ruled out Evaluated by wound care- Pt does not have a pressure ulcer but does have medial sacrum moisture associated dermatitis #Moderate aortic stenosis #Chronic Heart failure with preserved ejection fraction ECHO 11/2023 with EF 55-59%, follows cards op - no cardiac symptoms #CAD -Status post CABG 1995 -On Plavix and statin and beta-liliana - continue toprol #Paroxysmal atrial fibrillation #Sick sinus syndrome status post pacemaker -continue toprol -on eliquis; #Peripheral vascular disease #History of TIA secondary to bilateral carotid stenosis status post right CEA 02/2018 and left CEA 05/2018 -Continue on statin and plavix #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 #Status post total laryngectomy right neck dissection, subtotal -Currently On Keytruda and chemotherapy; last session 08/09 -Monitor for mucous plugging of tracheal stoma -Last admission was started on Prednisone taper for diarrheas from immunotherapy; Follow up oncology as an outpatient #thyroidectomy, acquired hypothyroidism Continue synthroid #Dysphagia #Protein reji malnutrition reports needing some softer diet, noting issues with certain pills DVT -heparin Full code Admit PCU for aggressive suctioning, tele monitoring, and nursing care He will be discharged home this afternoon and he wanted to discontinue Theodore before he is discharged Will DC Theodore and make sure he passes urine prior to home this afternoon Admission and Anticipated Discharge Date Admission Date: August 13, 2024 Subjective 08/15/2024 The patient was seen and examined in telemetry unit He has been complaining of back spasm without significant pain Has had bowel movement but denies any melena and no nausea or vomiting Denies any chest pain, palpitation or shortness of breath 08/16/2024 The patient was seen and examined in telemetry unit in presence of the He has been stable and will go for IVC filter placement this afternoon Denies any abdominal symptoms and did not have any more nausea, vomiting or diarrhea 08/21/2024 The patient was seen and examined in telemetry unit He has been stable and feeling a lot better He has had colonoscopy which was fairly unremarkable, without any internal hemorrhoids or anal fissure identified His hemoglobin remains stable and does not have any more GI bleed He wants to be discharged today Review of Systems Review of Systems: All systems reviewed and unremarkable except as noted below Physical Exam Physical Exam: Lying in bed without any acute distress Constitutional: + ill appearing and average body habitus Eyes: PERRL, conjunctivae normal, anicteric sclerae ENMT: external ear and nose normal, oropharynx normal Respiratory: no respiratory distress Auscultation: lungs clear to auscultation bilaterally Cardiovascular: Rate/Rhythm: regular rate and regular rhythm; not tachycardic Heart Sounds: normal S1, normal S2 and + murmur Extremities: no edema Gastrointestinal (Abdomen): Inspection/Auscultation: normal bowel sounds; abdomen not distended Percussion/Palpation: abdomen soft; abdomen nontender Neurologic: normal touch/pain/proprioception and moves all extremities; no focal motor deficits Lymphatic: no cervical or axillary lymphadenopathy Results & Data Results & Data Vital Signs (Past 12 Hours) Vital Signs Temp Pulse Resp BP Pulse Ox O2 Del Method 08/21/24 11:09 36.7 C 69 19 123/53 L 96 Room Air 08/21/24 07:11 36.7 C 68 18 128/55 L 93 Room Air 08/21/24 02:49 36.9 C 66 19 131/53 L 94 Room Air Medications Administered Current Inpatient Medications Acetaminophen (Acetaminophen 325 Mg Tab) 650 mg PO Q4H PRN PRN Reason: Pain or Fever Stop: 09/12/24 17:15 Last Admin: 08/16/24 23:21 Dose: 650 mg Albuterol (Albut/Ipratrop 3mg/0.5mg Neb 3 Ml Vial) 3 ml NEB Q6R PRN; Protocol PRN Reason: Shortness Of Breath Or Wheezing Stop: 09/12/24 18:59 Apixaban (Apixaban 5 Mg Tablet) 5 mg PO BID HUNG Stop: 09/19/24 20:59 Last Admin: 08/21/24 10:05 Dose: 5 mg Atorvastatin Calcium (Atorvastatin 40 Mg Tab) 40 mg PO DAILY HUNG Stop: 09/13/24 08:59 Last Admin: 08/21/24 10:04 Dose: 40 mg Clopidogrel Bisulfate (Clopidogrel Bisulfate 75 Mg Tab) 75 mg PO QAM HUNG Stop: 09/20/24 08:59 Last Admin: 08/21/24 10:04 Dose: 75 mg Cyclobenzaprine HCl (Cyclobenzaprine Hcl 10 Mg Tab) 5 mg PO TID PRN PRN Reason: spasm Stop: 09/14/24 12:15 Last Admin: 08/15/24 20:26 Dose: 5 mg Dextrose (Dextrose 50% 50 Ml Syringe) 25 - 50 ml IV UD PRN; Protocol PRN Reason: Hypoglycemia Protocol Stop: 09/12/24 18:49 Diphenoxylate HCl/Atropine (Diphenoxylate/Atropine 2.5/0.025mg Tab) 1 tab PO QID PRN PRN Reason: Diarrhea Stop: 09/15/24 10:57 Glucagon (Glucagon For Inj 1 Mg Vial) 1 mg SQ UD PRN; Protocol PRN Reason: Hypoglycemia Protocol Stop: 09/12/24 18:49 Glucose (Glucose 40% Gel 15 Gm Tube) 15 - 30 gm PO UD PRN; Protocol PRN Reason: Hypoglycemia Protocol Stop: 09/12/24 18:49 Glucose (Glucose 10 Tab/Tube) 4 - 8 tab PO UD PRN; Protocol PRN Reason: Hypoglycemia Protocol Stop: 09/12/24 18:49 Heparin Sodium (Porcine) (Heparin 100 Unit/Ml 5ml Flush) 5 ml FLUSH PRN PRN PRN Reason: Flush Stop: 09/14/24 01:40 Last Admin: 08/18/24 16:08 Dose: 5 ml Hydromorphone HCl (Hydromorphone Inj 0.5 Mg/0.5 Ml Syr) 0.5 mg IV Q6H PRN PRN Reason: Severe Pain (Scale 7, 8, 9,10) Stop: 08/31/24 09:57 Last Admin: 08/18/24 13:04 Dose: 0.5 mg Levalbuterol HCl (Levalbuterol Hcl 0.63 Mg/3 Ml Neb) 0.63 mg NEB Q4H PRN; Protocol PRN Reason: Shortness Of Breath Or Wheezing Stop: 09/12/24 18:45 Levothyroxine Sodium (Levothyroxine Sodium 125 Mcg Tablet) 125 mcg PO DAILYBB HUNG Stop: 09/13/24 06:29 Last Admin: 08/21/24 04:53 Dose: Not Given Lidocaine (Lidocaine 5% Oint 30 Gm Tube) 1 appln EXT BID PRN PRN Reason: rectal pain Stop: 09/17/24 15:37 Last Admin: 08/20/24 09:47 Dose: 1 appln Lidocaine (Lidocaine 4% Cream 15 Gm Tube) 1 appln EXT BID HUNG Stop: 09/18/24 20:59 Last Admin: 08/21/24 10:06 Dose: 1 appln Melatonin (Melatonin 3 Mg Tab) 3 mg PO HS PRN PRN Reason: Sleep Stop: 09/12/24 17:15 Last Admin: 08/15/24 20:26 Dose: 3 mg Metoprolol Succinate (Metoprolol Succ 25mg Ext Rel Tab) 12.5 mg PO DAILY HUNG Stop: 09/13/24 08:59 Last Admin: 08/21/24 10:04 Dose: 12.5 mg Miscellaneous (Carbohydrates For Hypoglycemia ) 15 - 30 gm PO UD PRN PRN Reason: Hypoglycemia Protocol Stop: 09/12/24 18:49 Last Admin: 08/13/24 21:25 Dose: 30 gm Olanzapine (Olanzapine 2.5 Mg Tab) 2.5 mg PO HS HUNG Stop: 09/12/24 20:59 Last Admin: 08/20/24 21:07 Dose: 2.5 mg Oxycodone/Acetaminophen (Oxycodone/Acetaminophen 5mg/325mg Tab) 1 tab PO Q4H PRN PRN Reason: Pain Stop: 08/31/24 09:57 Last Admin: 08/18/24 21:41 Dose: 1 tab Pantoprazole Sodium (Pantoprazole 40 Mg Tab) 40 mg PO BID HUNG Stop: 09/13/24 20:59 Last Admin: 08/21/24 10:04 Dose: 40 mg Paroxetine HCl (Paroxetine Hcl 20 Mg Tab) 20 mg PO HS HUNG Stop: 09/12/24 20:59 Last Admin: 08/20/24 21:08 Dose: 20 mg Psyllium Hydrophilic Mucilloid (Psyllium Or Guar Gum Fiber 4gm Packet) 4 gm PO QAM HUNG Stop: 09/17/24 08:59 Last Admin: 08/21/24 10:05 Dose: 4 gm Sodium Chloride (Sodium Chlor 7% 4 Ml Neb) 4 ml NEB BIDR PRN PRN Reason: Sputum induction Stop: 09/12/24 18:59 Tamsulosin HCl (Tamsulosin Hcl 0.4 Mg Cap) 0.4 mg PO HS [facility] Stop: 09/12/24 20:59 Last Admin: 08/20/24 21:07 Dose: 0.4 mg
[2024-08-21 13:39] VITALS: BP 114/44; PULSE 69
--- NOTE | 2024-08-22 07:52 | Discharge Summary ---
Date of Service August 22, 2024 Admission HPI Per Admitting Provider Mr. 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 History gathered in collaboration between and patient. PAtient underwent chemotherapy (held Keytruda) on 08/09. He otherwise was doing fine, outside of ongoing weakness; however, last evening he noted that he was short of breath and trying to cough, but was unable to bring anything up, ultimately resulting in him vomiting. He woke this am feeling relatively alright, ate breakfast and some of his pills; however, found himself short of breath once more, coughing--and ultimately vomited again, prompting presentation to the ED. He denies nausea, abdominal pain, or changes to appetite. He states his appetite is overall poor and his ability to swallow is a bit challenged, resulting in more of a moist soft diet. He denies chest pain, palpitations, night sweats, orthopnea. He denies a chronic cough, but does reports that he feels like he has sputum that is a challenge to bring up, especially right now--the states she sees him work hard to bring it up, but it seems so thick it "just goes right back down." He endorses some subjective fever. He reports chronic diarrhea, however, he notes it is improving, though his stool is always loose and his bottom hurts from the bowel movements. He denies urinary concerns. He does report intermittent compliance with some of his medications; however, he has been compliant with his Eliquis. He denies any know sick contacts. He notes that his RLE is improving as far as edema. In the ED, vitals were notable for BP of 90-95/40-50 HR of 70-90 and O2 sat of 92 on room air then transitioned to trach collar, tachypnea 26 Labs revealed WBC to 18.15, stable anemia of 8.2, bun/cr ration 46.3, lactate 2.4, BNP 281 Flu/RS negative Imaging revealed stable CXR compare to multiple prior images, without signs of edema or overt congestion/consolidations EKG reviewed ED interventions: cefepime, 2L NS, IV tylenol, zofran Patient to be admitted to pcu for further evaluation and management of sepsis and acute hypoxic resp failure with concern for pulm source Admission Exam Per Admitting Provider Physical Exam: GENERAL APPEARANCE: AxOx4, chronically ill appearing gentleman, pleasant however and in no distress HEENT: NC, AT. dry mucous membranes EOMI, clear conjunctiva, oropharynx clear. NECK: Supple without lymphadenopathy. stoma with no discharge visible HEART: Normal rate and regular rhythm, DORIAN++ LUNGS: coarse rhonchi R>L ABDOMEN: Soft, nontender, nondistended with good bowel sounds heard. BACK: No CVAT, no obvious deformity. EXTREMITIES: Without cyanosis, clubbing. RLE edema, nonpitting. NEUROLOGICAL: Grossly nonfocal. Alert and oriented, moving all 4 extremities. CN not formally tested but appear grossly intact. Skin: Warm and dry without any rash. 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 Discharge Exam Lying in bed without any acute distress Constitutional + ill appearing and average body habitus Eyes PERRL, conjunctivae normal, anicteric sclerae ENMT external ear and nose normal, oropharynx normal Respiratory no respiratory distress Auscultation: lungs clear to auscultation bilaterally Cardiovascular Rate/Rhythm: regular rate and regular rhythm; not tachycardic Heart Sounds: normal S1, normal S2 and + murmur Extremities: no edema Gastrointestinal (Abdomen) Inspection/Auscultation: normal bowel sounds; abdomen not distended Percussion/Palpation: abdomen soft; abdomen nontender Neurologic normal touch/pain/proprioception and moves all extremities; no focal motor deficits Lymphatic no cervical or axillary lymphadenopathy Discharge Data Allergies Allergy/AdvReac Type Severity Reaction Status Date / Time rosuvastatin [From Crestor] Allergy Unknown HAPPENED A Verified 08/13/24 15:17 LONG TIME AGO. Consultations 08/13/24 16:06 ED Decision to Admit Stat 08/14/24 00:13 Consult Vascular Surgery Routine 08/15/24 09:04 Consult Gastroenterology Routine 08/18/24 10:11 Consult Palliative Care Routine Procedures Performed Operation Date: 08/18/24 16:30 Actual Procedures p Flexible Sigmoidoscopy - Neil Lowe MD Ordered Studies 08/13/24 18:34 CT chest diagnostic wo con Routine 08/16/24 07:58 EV IVC filter placement Urgent Hospital Course (1) Sepsis: (2) Acute hypoxemic respiratory failure: (3) Mucus plug in respiratory tract: (4) Hematochezia: (5) Immunosuppressed due to chemotherapy: (6) Current chronic use of systemic steroids: Plan Mr. 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 Recent admissions [facility] 07/24- for right lower leg swelling +dvt, saw heme/onc who he sees for metastatic cancer, felt likely when stopped Eliquis for left leg port. [facility] 08/05- for diarrhea and hypotension #Acute hypoxic respiratory failure #Pneumonia # Neutropenia Patient presented with shortness of breath, cough CT chest shows patchy area of consolidation Sputum culture growing Pseudomonas- received intravenous Zosyn and finish the course on 08/20/2024 Has been receiving nebulized solutions for respiratory symptoms Neutropenia improved with use of Neupogen The blood counts remain stable to be discharged #RLE swelling #Recent DVT of right lower extremity Status post IVC placement on 08/16/2024 Episode of BRBPR -Occurred after he stopped Eliquis for a port replacement LLE - Venous duplex from 07/24 showed extensive deep vein thrombosis in right lower extremity Patient's hemoglobin dropped to 6.6 on 08/14; Eliquis was kept on hold and IVC filter was placed on 08/16. Reported some small drops of blood in diaper mixed with diarrhea. Hemoccult was positive. Discussed with patient's oncologist Dr. Monroy on 08/17; plan to restart heparin given significant right lower extremity swelling and monitor for recurrence of bleeding. Patient reported history of rectal polyp and wanted GI to evaluate him; Flex sig done on 08/18 did not show any polyp or bleeding. 1 unit of packed RBC ordered given hemoglobin of 7.0 on 08/19/2024 Heparin to be switch over to Eliquis on 08/20/2024 at 9pm. Has been getting Eliquis and Plavix has been restarted as well Right leg swelling persist and will improve gradually as expected #Hypotension #Weakness #Chronic Steroid Use Concern for possible impending iatrogenic adrenal insufficiency as patient has received multiple doses of steroids Random cortisol - unremarkable Continue recently prescribed steroid tapers (started 40mg x 5 days on 08/07, now on 20mg x 5 days (EOT 08/15) then 10 mg x2 days, 5mg x2 days. finished prednisone course Will go home on tapered dose of steroid as advised #Pressure ulcer, POA - ruled out Evaluated by wound care- Pt does not have a pressure ulcer but does have medial sacrum moisture associated dermatitis #Moderate aortic stenosis #Chronic Heart failure with preserved ejection fraction ECHO 11/2023 with EF 55-59%, follows cards op - no cardiac symptoms #CAD -Status post CABG 1995 -On Plavix and statin and beta-liliana - continue toprol #Paroxysmal atrial fibrillation #Sick sinus syndrome status post pacemaker -continue toprol -on eliquis; #Peripheral vascular disease #History of TIA secondary to bilateral carotid stenosis status post right CEA 02/2018 and left CEA 05/2018 -Continue on statin and plavix #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 #Status post total laryngectomy right neck dissection, subtotal -Currently On Keytruda and chemotherapy; last session 08/09 -Monitor for mucous plugging of tracheal stoma -Last admission was started on Prednisone taper for diarrheas from immunotherapy; Follow up oncology as an outpatient #thyroidectomy, acquired hypothyroidism Continue synthroid #Dysphagia #Protein reji malnutrition reports needing some softer diet, noting issues with certain pills DVT -heparin Full code Admit PCU for aggressive suctioning, tele monitoring, and nursing care He will be discharged home this afternoon and he wanted to discontinue Theodore before he is discharged Will DC Theodore and make sure he passes urine prior to home this afternoon Total Time Total Time Spent Total Time Spent (In Minutes): 35 Minutes Discharge Plan Discharge Items Patient Disposition: Home - Home Health Services Reason For Visit: AHRF, VOMITING Discharge Diagnosis: Acute hypoxic respiratory failure secondary to pneumonia,Right leg swelling with DVT,Episode of rectal bleed, unremarkable colonoscopy, 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 Please keep appointments with your healthcare providers Try to keep your legs elevated on a pillow while sleeping Pending Studies at Discharge: No Stand-Alone Forms: My [facility], Smoking Cessation Medications and DC Order Prescriptions: New cyclobenzaprine 10 mg Tablet 5 mg PO TID PRN (Reason: muscle spasm) Qty: 30 0RF Continued levothyroxine 125 mcg tablet 125 mcg PO DAILYBB Rx Instructions: Last filled 12/2023. PER PT'S "DOESN'T TAKE REGULARLY". nitroglycerin 0.4 mg tablet, sublingual 1 tab Sublingual UD PRN (Reason: Chest Pain) Patient Comments: Never had to use Rx Instructions: PER PT'S "DOESN'T TAKE". albuterol sulfate 2.5 mg /3 mL (0.083 %) Solution For Nebulization 2.5 mg INHALATION QID PRN (Reason: Shortness Of Breath Or Wheezing) Rx Instructions: PER PT'S "DOESN'T TAKE". clopidogrel 75 mg tablet 75 mg PO QAM Rx Instructions: PER PT'S "DOESN'T TAKE". Eliquis 5 mg tablet 5 mg PO AMHS oxycodone-acetaminophen [Percocet] 5-325 mg tablet 1 tab PO Q8H PRN (Reason: pain) Qty: 10 0RF Rx Instructions: PER PT'S "DOESN'T TAKE". tamsulosin 0.4 mg capsule 0.4 mg PO HS olanzapine 2.5 mg tablet 2.5 mg PO HS atorvastatin 40 mg Tablet 40 mg PO DAILY Rx Instructions: PER PT'S "DOESN'T TAKE". diphenoxylate-atropine 2.5-0.025 mg tablet 1 tab PO QID PRN (Reason: Diarrhea) paroxetine HCl [Paxil] 20 mg Tablet 20 mg PO HS pantoprazole 40 mg Tablet,Delayed Release (Dr/Ec) 40 mg PO DAILY Rx Instructions: PER PT'S "DOESN'T TAKE". mirtazapine 15 mg Tablet 15 mg PO HS Rx Instructions: PER PT'S "DOESN'T TAKE". metoprolol succinate 25 mg Tablet Extended Release 24 Hr 12.5 mg PO DAILY Discharge Orders: Discharge Order (Routine); Ordered 08/21/24 Ordered By: Nino Lai Admission Data Admit Date/Time: 08/13/24 17:16 Attending Provider: Nino Lai Admit Provider: Hafsa Montoya Primary Care Provider: Neto Rasheed Other Providers: Petar Burks; [facility]; Hafsa Montoya; Bill Bartlett; Omayra Loyola; Martin Maciel; Mary Grace Howard; Melvi Tolliver; Mitzi Quezada; Brenda Haines; Liborio Mccallum; Clau Montalvo; Parul Multani; Giovani Brady S; Homa De La Cruz; Krissy Blum; Neeta Ashley; Obdulia Gr; Lina Ng; Tonio Rowe; Erick Yu; Lucy Sheth; Adriel Jimenez Jr; Jordan Lao; Blake Vargas; Zoran Cesar; Royce Garcia; Kristen Ramirez; Shree Sheridan I; Aleyda Gilbert; Artis Ahumada; Neil Lowe; Aysha Sibley; Long Rodriguez Other Interventions: Discharge Summary Assessment (RN) Last Done: 08/21/24 13:29
== END 2024-08-21 14:25 | disposition home health service (06) | DRG 871 ==
LOC: ED 13:11 → 2E 17:16 → SUATTDRO 17:16 → 2E 18:20

== ENCOUNTER 2024-08-25 11:24 | Inpatient (IN) ==
--- NOTE | 2024-08-25 12:00 | Emergency Department Note ---
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 He was just admitted here for sepsis and discharged on the . Since per report his is having trouble caring for him. He did fall last night to the ground but notes he did not hit his head. He denies any pain from falling. He denies any head strike. He admits to a small abrasion on his right elbow. No chest pain or shortness of breath. No nausea, vomiting, or diarrhea. No dysuria, urgency, or frequency. No other exacerbating or remitting factors. ADDITIONAL HISTORY OBTAINED: Per HPI Chronic Medical/Social Conditions Affecting Care: Per HPI PAST MEDICAL HISTORY:See Below PAST SURGICAL HISTORY:See Below FAMILY HISTORY:See Below SOCIAL HISTORY:See Below HOME MEDICATIONS:See Below ALLERGIES:See Below VITALS:See Below PHYSICAL EXAMINATION: GENERAL: alert, well appearing, well nourished, no distress, non-toxic HEAD: normal cephalic, atraumatic EYE EXAM: normal conjunctiva, PERRL and EOM's grossly intact OROPHARYNX: no exudate, no erythema, lips, buccal mucosa, and tongue normal and mucous membranes are moist NECK: supple, no nuchal rigidity, no adenopathy, non-tender CHEST: stable to compression anteriorly and posteriorly LUNGS: clear to auscultation. Normal chest wall mechanics HEART: no murmurs, S1 normal and S2 normal ABDOMEN: abdomen soft, non-tender, normo-active bowel sounds, no masses, no rebound or guarding. PELVIS: stable to compression anteriorly and posteriorly BACK: Back is symmetrical on inspection and there is no deformity, no midline tenderness, no CVA tenderness. Small excoriation of the skin at the base of sacrum UPPER EXTREMITIES: full active and passive range of motion of all joints without tenderness to palpation. Small abrasion on right elbow LOWER EXTREMITIES: full active and passive range of motion of all joints without tenderness to palpation NEURO EXAM: Normal sensorium, cranial nerves II-XII grossly intact, normal speech, no gross weakness of arms, no gross weakness of legs. GCS: 15. MEDICAL DECISION MAKING: Patient is an 84-year-old male who presents ER for above-stated complaint. IV was established and blood work was obtained. Labs show no significant leukocytosis. Mild anemia 9.6. BMP with hypokalemia 3.4. LFTs and bilirubin was unremarkable. Troponin was negative. Lactate was normal. Chest x-ray shows a new right-sided infiltrate consistent with pneumonia. Did review external records and previous admission from the other week which showed subtle pneumonia on CT. Cultures did show Pseudomonas. He was given IV cefepime as well as IV vancomycin. He was updated bedside. Discussed case with the hospitalist for further evaluation management and treatment. Discussed with Pt concerning signs and symptoms to watch out for. Pt was instructed to follow up with their PCP and discussed with the patient their option to return to the ED at anytime for persistent or worsening symptoms. The appropriate anticipatory guidance and out-patient management, including indications for return to the emergency department, were explained at length to the patient and understood. Consults/Care Managements Discussions: Per [facility] Triage Nursing notes reviewed. Limited review of prior medical records performed Vital Signs: reviewed and remarkable for no significant abnormalities Differential diagnosis: Differential diagnoses include major intracranial, cervical, spinal, thoracic, abdominal, pelvic and neurologic injury. Fracture, contusion, sprain, strain, laceration, abrasions included as well. ER treatment provided: See below Diagnostics interpreted by me include EKG and cardiac monitoring as listed below: -Cardiac Monitoring: An order was placed for continuous cardiac monitoring. The monitor shows a rate of 88 with paced rhythm. -ECG: Atrial paced rate of 78 Normal axis No PVCs QTc 460 -Laboratory studies:Interpreted by me as stated above in MDM and shown below. Imaging studies: Xrays: As interpreted by me: Portable AP upright 1 view of the chest shows right-sided pneumonia CTs show: none Procedures:none Critical Care: None Past Med/Surg History Problem List (Updated 08/25/24 @ 18:23 by Kartik Mak DO) Weakness (Acute) Pneumonia (Acute) Counseling regarding goals of care Advance directive discussed with patient Palliative care by specialist Rectal pain Demand ischemia of myocardium Acute on chronic anemia Community acquired pneumonia Acute hypoxic respiratory failure Severe sepsis with acute organ dysfunction Current chronic use of systemic steroids Immunosuppressed due to chemotherapy Hematochezia Hypocalcemia (Acute) Elevated brain natriuretic peptide (BNP) level (Acute) Leukocytosis (Acute) Elevated troponin (Acute) Elevated lactic acid level (Acute) Nausea & vomiting (Acute) Acute dyspnea (Acute) Sepsis (Acute) Diarrhea (Acute) Elevated troponin (Acute) Generalized weakness (Acute) 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 Iron deficiency anemia (HFpEF) heart failure with preserved ejection fraction History of atrial fibrillation (Acute) Right leg swelling (Acute) Deep vein thrombosis (DVT) of right lower extremity (Acute) S/P vascular surgery Pressure ulcer, buttock Mucus plugging of bronchi (Acute) Mucus plug in respiratory tract (Acute) Leukocytosis (Acute) Depression Hypothyroidism (acquired) History of coronary artery disease History of atrial fibrillation Respiratory distress PVD (peripheral vascular disease) Abnormal computed tomography of abdomen and pelvis GI bleed Syncope Melena (Acute) Hematemesis (Acute) Elevated troponin (Acute) Elevated troponin 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) Anemia (Acute) Tracheostomy in place (Acute) Leukocytosis (Acute) Laryngeal cancer (Acute) Cellulitis (Acute) 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 (Acute) Severe sepsis Bacteremia due to Enterococcus (Acute) Sepsis Aspiration pneumonia (Acute) Aspiration pneumonia (Acute) Acute dyspnea (Acute) History of laryngectomy Aspiration pneumonia Multifocal pneumonia (Acute) Tracheostomy in place (Acute) Tracheobronchitis Hypoxia (Acute) SSS (sick sinus syndrome) (Chronic) History of CVA (cerebrovascular accident) (Chronic) February 2018, no deficits Tracheostomy in place (Acute) COPD (chronic obstructive pulmonary disease) Acute hypoxemic respiratory failure Peripheral eosinophilia Elevated troponin (Acute) Stenosis of left internal carotid artery History of cataract surgery (Chronic) H/O repair of right rotator cuff (Chronic) Anxiety (Chronic) 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 Symptoms were resolving by the time the patient arrived in the ED. 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 on CPAP no longer on CPAP post tracheostomy Surgical History Hx of laryngectomy (~1999) History of bronchoscopy History of tonsillectomy History of carotid endarterectomy RIGHT (MARCH 2018) History of cataract extraction with lens replacement cataract extraction with IOL implant and LRI left eye - 05/02/12 History of colonoscopy with polypectomy History of rotator cuff surgery Right - 2009 History of coronary artery bypass graft X2 VESSEL 1995 -- [facility] Family History Mother Essential hypertension Stroke Sister Cancer Breast cancer Daughter Cancer Colon cancer Social History Smoking Status: Former smoker Tobacco Type: Cigarettes Age Quit Using Tobacco: 55; packs per day: 2; Second Hand Exposure: No; Do You Dip or Chew Tobacco: No; Hx Alcohol Use: No Hx Substance Use: No Preferred Language: Vietnamese Communication Ability: Impaired Communication Ability Comment: Trach stoma Visual Impairment: No Limitations Hearing Ability: Normal Carburetor 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 Required: No Beliefs That Will Affect Care: None marital status: Current Living Situation: Spouse Current Living Situation Comment: home with spouse current occupational status: retired How many Children do You have: 2 How many Children do You have Comment: Son can help Other Information That Helps Us Care for You: No other: Home health nursing twice per week Feels Safe at Home: Yes Safety Concerns: Feels Safe At This Time Diet: regular during the past year weight has: decreased > 10 lbs Physical Activity Frequency: Does not Exercise Assistive Devices: Walker Allergies Allergies Allergy/AdvReac Type Severity Reaction Status Date / Time rosuvastatin [From Crestor] Allergy Unknown HAPPENED A Verified 08/13/24 15:17 LONG TIME AGO. Home Meds Home Medications Medication Instructions Recorded Confirmed levothyroxine 125 mcg tablet 125 mcg PO DAILYBB 03/25/18 08/25/24 nitroglycerin 0.4 mg sublingual 1 tab sublingual UD PRN Chest Pain 03/25/18 08/25/24 tablet apixaban 5 mg tablet (Eliquis) 5 mg PO AMHS 09/13/21 08/25/24 olanzapine 2.5 mg tablet 2.5 mg PO HS 07/24/24 08/25/24 diphenoxylate-atropine 2.5 1 tab PO QID PRN Diarrhea 08/05/24 08/25/24 mg-0.025 mg tablet mirtazapine 15 mg tablet 15 mg PO HS 08/05/24 08/25/24 pantoprazole 40 mg tablet,delayed 40 mg PO DAILY 08/05/24 08/25/24 release clopidogrel 75 mg tablet 75 mg PO DAILY 08/25/24 08/25/24 metoprolol succinate 25 mg 25 mg PO DAILY 08/25/24 08/25/24 tablet,extended release 24 hr Previous Rx's Medication Instructions Recorded cyclobenzaprine 10 mg tablet 5 mg (1/2 x 10 mg) PO TID PRN 08/21/24 muscle spasm #30 tabs Results & Data (ED) Vital Signs Vital Signs - 24 hr 08/25/24 11:27 08/25/24 11:30 08/25/24 11:33 Temperature Temperature Source Pulse Rate 82 61 79 Respiratory Rate 22 22 Respiratory Effort / Characteristics Respiratory Depth Respiratory Pattern Blood Pressure 131/83 143/81 H Blood Pressure Mean 108 115 Pulse Oximetry 96 96 Oxygen Delivery Method Sepsis Recent Fever Within 48 Hours Sepsis New/Unexplained Change in Mental Status Sepsis Action Taken by Nursing 08/25/24 11:34 08/25/24 12:00 08/25/24 12:23 Temperature 36.5 C Temperature Source Oral Pulse Rate 88 60 60 Respiratory Rate 17 21 16 Respiratory Effort / Characteristics Non-Labored Respiratory Depth Normal Respiratory Pattern Regular Blood Pressure 143/81 H 135/62 Blood Pressure Mean 101 89 Pulse Oximetry 95 96 98 Oxygen Delivery Method Room Air Room Air Sepsis Recent Fever Within 48 Hours No Sepsis New/Unexplained Change in Mental Status No Sepsis Action Taken by Nursing No Action Required 08/25/24 12:30 08/25/24 12:45 08/25/24 13:00 Temperature Temperature Source Pulse Rate 60 61 63 Respiratory Rate 16 21 28 H Respiratory Effort / Characteristics Respiratory Depth Respiratory Pattern Blood Pressure 152/69 H 147/61 H 126/64 Blood Pressure Mean 106 82 88 Pulse Oximetry 95 98 98 Oxygen Delivery Method Sepsis Recent Fever Within 48 Hours Sepsis New/Unexplained Change in Mental Status Sepsis Action Taken by Nursing Laboratory Data 08/25/24 11:55 08/25/24 11:55 Lab Results 08/25/24 Range/Units 11:55 WBC 4.02 L (4.8-10.8) K/ul RBC 3.37 L (4.70-6.10) M/uL Hgb 9.6 L (14.0-18.0) g/dl Hct 29.9 L (42.0-52.0) % MCV 88.7 (80.0-100.0) fL MCH 28.5 (25.0-34.0) pg MCHC 32.1 (32.0-36.0) g/dL RDW Std Deviation 52.5 H (36.4-46.3) fL RDW Coeff of Sharda 16.3 H (11.5-14.5) % Plt Count 221 (130-400) K/uL MPV 9.4 (9.4-12.4) fL Immature Gran % (Auto) 1.0 % Neut % (Auto) 79.1 % Lymph % (Auto) 10.9 % Hamlin % (Auto) 8.5 % Eos % (Auto) 0.0 % Baso % (Auto) 0.5 % Neut # (Auto) 3.18 (1.40-6.50) K/uL Lymph # (Auto) 0.44 L (1.20-3.40) K/uL Hamlin # (Auto) 0.34 (0.11-0.59) K/uL Eos # (Auto) 0.00 (0.00-0.50) K/uL Baso # (Auto) 0.02 (0.00-0.20) K/uL Immature Gran # (Auto) 0.04 (0.01-0.20) K/uL Sodium 139 (136-145) mmol/L Potassium 3.4 L (3.5-5.1) mmol/L Chloride 106 (98-107) mmol/L Carbon Dioxide 27 (21-32) mmol/L Anion Gap 6 (3-11) BUN 13 (6-23) mg/dl Creatinine 0.60 (0.6-1.4) mg/dl Est Cr Clr Drug Dosing 95.9 ml/min eGFR 94.60 BUN/Creatinine Ratio 21.7 H (10-20) Glucose 142 H (70-99(Fasting)) mg/dl Lactate 1.8 (0.4-2.0) mmol/L Calcium 7.6 L (8.6-10.3) mg/dl Magnesium 1.7 (1.7-2.4) mg/dl Total Bilirubin 0.4 (0.2-1.0) mg/dl Direct Bilirubin 0.1 (0-0.2) mg/dl AST 27 (13-39) U/L ALT 30 (7-52) U/L Alkaline Phosphatase 92 (34-104) U/L Troponin I High Sens 10.0 (0-20) pg/ml Total Protein 5.6 L (6.0-8.3) gm/dl Albumin 2.4 L (3.4-5.0) gm/dl Globulin 3.2 (2.5-4.0) gm/dl Albumin/Globulin Ratio 0.8 L (0.9-2) Lipase 6 L (11-82) U/L Procalcitonin 0.09 (0-0.5) ng/ml Random Cortisol 4.47 mcg/dl Administered Medications Discontinued Medications Cefepime HCl (Maxipime 2000mg) 2,000 mg in 20 mls @ 5 mls/min IV NOW STA; Protocol Stop: 08/25/24 12:54 Last Admin: 08/25/24 13:01 Dose: 5 mls/min Documented By: BRIANNA Metronidazole (Flagyl) 500 mg in 100 mls @ 100 mls/hr IV NOW STA; Protocol Stop: 08/25/24 14:47 Last Infusion: 08/25/24 17:10 Dose: Infused Documented By: Admin: 08/25/24 16:07 Dose: 100 mls/hr Documented By: ALYSSA Potassium Chloride (Potassium Chloride Pwd 20 Meq Pack) 20 meq PO NOW STA Stop: 08/25/24 13:48 Last Admin: 08/25/24 16:07 Dose: 20 meq Documented By: ALYSSA Imaging Data Radiologist's Impression: Chest X-Ray 08/25/24 12:01 XR chest 1V portable CLINICAL HISTORY: Sepsis COMPARISON STUDY: 08/13/2024 FINDINGS: Single view portable chest demonstrates widespread, newly demonstrated to airspace opacities spread throughout the right lung. The left lung remains unremarkable. Heart size and pulmonary vascularity are unremarkable. Dual lead pacemaker remains in place. Evidence of prior coronary artery bypass surgery is noted. IMPRESSION: Newly demonstrated airspace opacities throughout the right lung consistent with pneumonia. ACT 112: Negative or not required by law. Electronically signed by: Deepa Osborne M.D. 08/25/2024 12:51 PM Discharge Plan Visit Data Chief Complaint: Illness Stated Complaint: ILLNESS ED Provider: Kartik Mak Discharge Problem: Pneumonia, Weakness, Anemia Patient Disposition: Admitted As Inpatient Condition: Fair Discharge Instructions Interventions: ED Discharge Assessment Last Done: 08/25/24 14:51 Discharge Problem: Pneumonia Qualifiers: Pneumonia type: due to unspecified organism Laterality: unspecified laterality Lung location: unspecified part of lung Qualified Code(s): J18.9 - Pneumonia, unspecified organism Anemia Qualifiers: Anemia type: unspecified type Qualified Code(s): D64.9 - Anemia, unspecified
[2024-08-25 12:08] LABS: Basophils # (auto) 0.02 K/uL (0.00-0.20); Basophils % (auto) 0.5 %; Hematocrit (blood only) 29.9 % (42.0-52.0); Hemoglobin 9.6 g/dl (14.0-18.0); Immature Granulocytes # (auto) 0.04 K/uL (0.01-0.20); Lymphocytes # (auto) 0.44 K/uL (1.20-3.40); Lymphocytes % (auto) 10.9 %; Mean Corpuscular Hemoglobin 28.5 pg (25.0-34.0); Mean Corpuscular Hgb Conc 32.1 g/dL (32.0-36.0); Mean Corpuscular Volume 88.7 fL (80.0-100.0); Mean Platelet Volume 9.4 fL (9.4-12.4); Monocytes # (auto) 0.34 K/uL (0.11-0.59); Monocytes % (auto) 8.5 %; Neutrophils # (auto) 3.18 K/uL (1.40-6.50); Neutrophils % (auto) 79.1 %; Platelet Count 221 K/uL (130-400); RDW Coefficient of Variation 16.3 % (11.5-14.5); RDW Standard Deviation 52.5 fL (36.4-46.3); Red Blood Count 3.37 M/uL (4.70-6.10); White Blood Count 4.02 K/ul (4.8-10.8)
[2024-08-25 12:37] LABS: Albumin Globulin Ratio 0.8 (0.9-2); Albumin Level 2.4 gm/dl (3.4-5.0); BUN Creatinine Ratio 21.7 (10-20); Bilirubin,Total 0.4 mg/dl (0.2-1.0); Calcium 7.6 mg/dl (8.6-10.3); Creatinine Clr Calc Pharmacy 95.9 ml/min; Globulin 3.2 gm/dl (2.5-4.0); Potassium 3.4 mmol/L (3.5-5.1); Total Protein 5.6 gm/dl (6.0-8.3)
[2024-08-25 12:48] LABS: Bilirubin Direct 0.1 mg/dl (0-0.2); Magnesium 1.7 mg/dl (1.7-2.4)
--- NOTE | 2024-08-25 12:53 | XRay Report ---
XR chest 1V portable CLINICAL HISTORY: Sepsis COMPARISON STUDY: 08/13/2024 FINDINGS: Single view portable chest demonstrates widespread, newly demonstrated to airspace opacitie s spread throughout the right lung. The left lung remains unremarkable. Heart size and pulmonary vasc ularity are unremarkable. Dual lead pacemaker remains in place. Evidence of prior coronary artery byp ass surgery is noted. IMPRESSION: Newly demonstrated airspace opacities throughout the right lung consistent with pneumoni a. ACT 112: Negative or not required by law. Electronically signed by: Deepa Osborne M.D. 08/25/2024 12:51 PM
[2024-08-25] MEDS: CEFEPIME 2000MG 2,000 MG/20 ML SYR IV STA (13:01)
--- NOTE | 2024-08-25 14:01 | History & Physical Report ---
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 #RLL Pneumonia #Generalized weakness admit to med tele CXR on admission shows interval development of R sided PNA recent sputum culture + pseudomonas Start IV Cefepime and flagyl suctioning prn PT/OT - pt wants to go to rehab #Chronic Diarrhea pt with chronic diarrhea in setting of on going immunotherapies s/p steroid tapers, completed most recently 08/19 #Chronic Normocytic Anemia recent admission has + hemocult stool, requiring 1 unit PRBC on 08/19, Flex sig done on 08/18 that did not show any polyp or bleeding Hgb stable today at 9.6, no evidence of bleeding monitor h/h continue eliquis and plavix for now #Moderate aortic stenosis #Chronic Heart failure with preserved ejection fraction ECHO 11/2023 with EF 55-59%, follows cards op Pt appears euvolemic, continue home meds #CAD Status post CABG 1995 On Plavix and statin and beta-liliana continue toprol #Paroxysmal atrial fibrillation #Sick sinus syndrome status post pacemaker continue toprol and eliquis #Peripheral vascular disease #History of TIA secondary to bilateral carotid stenosis status post right CEA 02/2018 and left CEA 05/2018 -continue Plavix and statin -Pt has been on plavix during recent hospitalization; however per pharmacy review pt has not filled the medication at [facility] is quite some time, will need a refill of this medication at discharge #RLE swelling #Recent DVT of right lower extremity -Occurred after he stopped Eliquis for a port replacement LLE -Currently on Eliquis -continues with RLE swelling but pt feels improved #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 #Status post total laryngectomy right neck dissection, subtotal -Currently On Keytruda and chemotherapy; last session 08/09 -Monitor for mucous plugging of tracheal stoma - #thyroidectomy, acquired hypothyroidism -TSH and T4 in a.m. continue Synthroid #Dysphagia #Protein reji malnutrition reports needing some softer diet, noting issues with certain pills Speech consult for dysphagia eval and optimizing diet classification case manager consult DVT PPX eliquis Full code Dispo: admit to med tele, PT/OT I spent a total of 76 minutes coordinating, documenting and providing care for this patient excluding time spent in the performance of separately billed services or time spent by another provider/QHP. Pt was seen and examined in collaboration with Dr. Cruz, please see addendum History of Present Illness Chief Complaint: Weakness, fall, unable to care of self at home Primary Care Provider: Neto Rasheed MD Mr. 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 Recent admissions [facility] 07/24- for right lower leg swelling +dvt, saw heme/onc who he sees for metastatic cancer, felt likely when stopped Eliquis for left leg port. [facility] 08/05-08/07/24 for diarrhea and hypotension [facility] 08/13-08/22 Sepsis 2/2 PNA, neutropenia s/p neupogen, weakness Pt was just discharged from the hospital 2-3 days ago. Since returning home he has been increasingly week. Last night he fell out of bed on to his Right elbow. He has a skin tear to the R arm, but otherwise no injuries. Therapy came to the house today and per his, "blood pressure was low." Due to his weakness and low blood pressure they recommended he come to the ED. Pt reports feeling generalized weakness, malaise, poor appetite and feels he needs rehab. He has been drinking liquids, but not much solid food. He denies f/c/s, chest pain, sob, n/v/abd pain. He has his trach stoma in place. He does not wear his passey karol valve much. He states he has been taking his medications. is uncertain what all he is taking. In ED pt remains hemodynamically stable. CXR concerning for worsening RLL PNA. He was started on IV cefepime. Allergies Allergy/AdvReac Type Severity Reaction Status Date / Time rosuvastatin [From Crestor] Allergy Unknown HAPPENED A Verified 08/13/24 15:17 LONG TIME AGO. Home Medications Medication Instructions Recorded Confirmed Type levothyroxine 125 mcg tablet 125 mcg PO DAILYBB 03/25/18 08/25/24 History nitroglycerin 0.4 mg sublingual 1 tab sublingual UD PRN Chest Pain 03/25/18 08/25/24 History tablet apixaban 5 mg tablet (Eliquis) 5 mg PO AMHS 09/13/21 08/25/24 History olanzapine 2.5 mg tablet 2.5 mg PO HS 07/24/24 08/25/24 History diphenoxylate-atropine 2.5 1 tab PO QID PRN Diarrhea 08/05/24 08/25/24 History mg-0.025 mg tablet mirtazapine 15 mg tablet 15 mg PO HS 08/05/24 08/25/24 History pantoprazole 40 mg tablet,delayed 40 mg PO DAILY 08/05/24 08/25/24 History release cyclobenzaprine 10 mg tablet 5 mg (1/2 x 10 mg) PO TID PRN 08/21/24 08/25/24 Rx muscle spasm #30 tabs clopidogrel 75 mg tablet 75 mg PO DAILY 08/25/24 08/25/24 History metoprolol succinate 25 mg 25 mg PO DAILY 08/25/24 08/25/24 History tablet,extended release 24 hr Past Med/Surg History Problem List (Updated 08/25/24 @ 00:07 by Mariana Davenport) Counseling regarding goals of care Advance directive discussed with patient Palliative care by specialist Rectal pain Demand ischemia of myocardium Acute on chronic anemia Community acquired pneumonia Acute hypoxic respiratory failure Severe sepsis with acute organ dysfunction Current chronic use of systemic steroids Immunosuppressed due to chemotherapy Hematochezia Hypocalcemia (Acute) Elevated brain natriuretic peptide (BNP) level (Acute) Leukocytosis (Acute) Elevated troponin (Acute) Elevated lactic acid level (Acute) Nausea & vomiting (Acute) Acute dyspnea (Acute) Sepsis (Acute) Diarrhea (Acute) Elevated troponin (Acute) Generalized weakness (Acute) 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 Iron deficiency anemia (HFpEF) heart failure with preserved ejection fraction History of atrial fibrillation (Acute) Right leg swelling (Acute) Deep vein thrombosis (DVT) of right lower extremity (Acute) S/P vascular surgery Pressure ulcer, buttock Mucus plugging of bronchi (Acute) Mucus plug in respiratory tract (Acute) Leukocytosis (Acute) Depression Hypothyroidism (acquired) History of coronary artery disease History of atrial fibrillation Respiratory distress PVD (peripheral vascular disease) Abnormal computed tomography of abdomen and pelvis GI bleed Syncope Melena (Acute) Hematemesis (Acute) Elevated troponin (Acute) Elevated troponin 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) Anemia (Acute) Tracheostomy in place (Acute) Leukocytosis (Acute) Laryngeal cancer (Acute) Cellulitis (Acute) 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 (Acute) Severe sepsis Bacteremia due to Enterococcus (Acute) Sepsis Aspiration pneumonia (Acute) Aspiration pneumonia (Acute) Acute dyspnea (Acute) History of laryngectomy Aspiration pneumonia Multifocal pneumonia (Acute) Tracheostomy in place (Acute) Tracheobronchitis Hypoxia (Acute) SSS (sick sinus syndrome) (Chronic) History of CVA (cerebrovascular accident) (Chronic) February 2018, no deficits Tracheostomy in place (Acute) COPD (chronic obstructive pulmonary disease) Acute hypoxemic respiratory failure Peripheral eosinophilia Elevated troponin (Acute) Stenosis of left internal carotid artery History of cataract surgery (Chronic) H/O repair of right rotator cuff (Chronic) Anxiety (Chronic) 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 Symptoms were resolving by the time the patient arrived in the ED. 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 on CPAP no longer on CPAP post tracheostomy Surgical History Hx of laryngectomy (~1999) History of bronchoscopy History of tonsillectomy History of carotid endarterectomy RIGHT (MARCH 2018) History of cataract extraction with lens replacement cataract extraction with IOL implant and LRI left eye - 05/02/12 History of colonoscopy with polypectomy History of rotator cuff surgery Right - 2009 History of coronary artery bypass graft X2 [facility] Family History Mother Essential hypertension Stroke Sister Cancer Breast cancer Daughter Cancer Colon cancer Social History Smoking Status: Former smoker Tobacco Type: Cigarettes Age Quit Using Tobacco: 55; packs per day: 2; Second Hand Exposure: No; Do You Dip or Chew Tobacco: No; Hx Alcohol Use: No Hx Substance Use: No Preferred Language: Stateless Communication Ability: Impaired Communication Ability Comment: laryngeal stoma Visual Impairment: No Limitations Hearing Ability: Normal Technical Operations Manager Required: No Beliefs That Will Affect Care: None marital status: Current Living Situation: Spouse Current Living Situation Comment: home with spouse current occupational status: retired How many Children do You have: 2 How many Children do You have Comment: Son can help other: Home health nursing twice per week Feels Safe at Home: No Is there a partner from a previous relationship who is making you feel unsafe now?: No Diet: regular during the past year weight has: decreased > 10 lbs Physical Activity Frequency: Does not Exercise Assistive Devices: Cane and Other Physical Exam Physical Exam: Constitutional: elderly, chronically ill male, vitals as above, NAD, sitting up in bed, pleasant, conversing easily Head: Normocephalic, Atraumatic Eyes: PERRL, conjunctivae normal, anicteric sclerae ENMT: external ear and nose normal, oropharynx dry Neck: +trach stoma, no surrounding erythema, normal visual inspection Respiratory: normal respiratory effort, lungs clear to auscultation + Rhonchi RLL, no wheeze, rales. Normal insp/exp effort, no accessory muscle use Cardiovascular: RRR, no murmur,RLE edema ++, no erythema, warmth or discolora tion, b/l palpable +2 pedal pulse Vessels: no JVD or carotid bruit Chest: normal inspection of chest Abdomen: normal bowel sounds, soft, nontender, no hepatosplenomegaly Musculoskeletal: no cyanosis or clubbing, AROM x 4 Skin: no rashes, warm and dry normal turgor Neurologic: no face palsy, no dysarthria CN's II-XI intact bilaterally and moves all extremities Psychiatric: A+Ox3, euthymic affect Lymphatic: no cervical or axillary lymphadenopathy : deferred Results & Data Results & Data Vital Signs (Past 12 Hours) Vital Signs Temp Pulse Resp BP Pulse Ox O2 Del Method 08/25/24 12:45 61 21 147/61 H 98 08/25/24 12:30 60 16 152/69 H 95 08/25/24 12:23 60 16 98 Room Air 08/25/24 12:00 60 21 135/62 96 08/25/24 11:34 36.5 C 88 17 143/81 H 95 Room Air 08/25/24 11:33 79 08/25/24 11:30 61 22 143/81 H 96 08/25/24 11:27 82 22 131/83 96 Laboratory Results I have independently reviewed and interpreted patient's admitting labs including CBC, CMP, procal, mag and troponin. Diagnostic Findings Chest X-Ray 08/25/24 12:01 XR chest 1V portable CLINICAL HISTORY: Sepsis COMPARISON STUDY: 08/13/2024 FINDINGS: Single view portable chest demonstrates widespread, newly demonstrated to airspace opacities spread throughout the right lung. The left lung remains unremarkable. Heart size and pulmonary vascularity are unremarkable. Dual lead pacemaker remains in place. Evidence of prior coronary artery bypass surgery is noted. IMPRESSION: Newly demonstrated airspace opacities throughout the right lung consistent with pneumonia. ACT 112: Negative or not required by law. Electronically signed by: Deepa Osborne M.D. 08/25/2024 12:51 PM Medications Administered Medication List Discontinued Medications Cefepime HCl (Maxipime 2000mg) 2,000 mg in 20 mls @ 5 mls/min IV NOW STA; Protocol Stop: 08/25/24 12:54 Last Admin: 08/25/24 13:01 Dose: 5 mls/min Documented By: NDW ECG Additional Comments: I have independently reviewed and interpreted patient's admitting EKG which revealed: 78 atrial paced rhythm, qtc 460ms Code Status & VTE Plan Code Status FULL CODE VTE Prophylaxis Plan VTE Prophylaxis will be ordered: No Supervising Physician Co-Signing Physician Notes Patient is an 84-year-old male with multiple comorbidities who was recently hospitalized and was treated for right lower extremity DVT, pneumonia and diarrhea leading to hypotension presents with history of worsening generalized weakness and a fall on right elbow. Patient had a skin tear of right elbow but otherwise denies any injuries. Patient was also found to be hypotensive at home and so was brought to ED for further evaluation. Patient reports that his appetite/ oral intake has been poor. He admits to be compliant with his home medications. He has been having trouble with his ADLs. I personally reviewed blood work and imaging studies. Chest x-ray showed opacity throughout right lung consistent with pneumonia which is new when compared to prior chest x-ray. Patient currently denies any respiratory symptoms.Please review HPI for complete details of presentation. Physical Exam: Vitals signs as noted above General Appearance: Chronic ill-appearing, no apparent distress Head: normocephalic, Atraumatic Eyes: normal inspection, EOMI Neck: supple, Trachea midline,+ tracheal stoma Respiratory/Chest: Decreased breath sounds, right basilar rhonchi, No accessory muscle use Cardiovascular: S1, S2,+ murmur Abdomen/GI:Soft, Non tender, Bowel sounds present Extremities/Musculoskeletal:normal inspection, right leg edema Neurologic/Psych:AAOX3, grossly no focal neurological deficits Skin: normal color, warm Right lung pneumonia Generalized weakness Hypokalemia Chronic diarrhea Abnormal urinalysis Ambulatory dysfunction with fall Right lower extremity DVT S/P IVC on Eliquis Agree with cefepime, Flagyl, pulmonary hygiene PT OT, fall precautions Follow-up urine, blood culture Continue home medications for chronic conditions Check TSH Saturating well on room air I personally interviewed and examined the patient at bedside. I have reviewed the advanced practitioner's documentation on the date of service referred in note and agree with plan. Patient's care is coordinated with Loreta Mandujano. Please refer to the documentation above for details of patient's presentation and for discussion of other issues. I spent a total [id number] coordinating, documenting, and providing care for this patient excluding time spent in the performance of separately billed services or time spent by another provider/QHP. (6) Deep vein thrombosis (DVT) of right lower extremity Affected thrombotic vein of extremity: femoral Chronicity: acute Qualified Code(s): I82.411 - Acute embolism and thrombosis of right femoral vein
[2024-08-25] MEDS ORDERED: FAMOTIDINE 20 MG TAB PO PRN (14:55)
[2024-08-25] MEDS ORDERED: ACETAMINOPHEN 325 MG TAB PO PRN (14:55)
[2024-08-25] MEDS ORDERED: DIPHENOXYLATE/ATROPINE 2.5/0.025MG TAB PO PRN (14:55)
[2024-08-25] MEDS ORDERED: ONDANSETRON INJ 2 MG/ML 2 ML VIAL IV PRN (14:55)
[2024-08-25] MEDS ORDERED: POLYETHYLENE (MIRALAX) 17 GM PACK PO PRN (14:55)
[2024-08-25] MEDS ORDERED: CYCLOBENZAPRINE HCL 10 MG TAB PO PRN (15:07)
--- OUTSIDE RECORDS SUMMARY | 2024-08-25 15:35 | External Medical Summary | Summary of Care ---
Author Name Unknown Organization [facility] [address] [facility] [place] [address] Phone [phone] Care Team Providers Care Bonsai Culturist Name Role Phone Neto Méndez MD Primary Care Provider + Reason for Visit * Reason Onset Date Comments Medication Refill 08/22/2024 Encounter Details Date Type Department Care Team (Late st Contact Info) Description 08/22/2024 Refill General Internal Medicine [facility] [address] [place] [address] Neto Méndez MD 200 [facility] [place] [address] Allergies No known active allergiesdocumented as of this encounter (statuses as of 08/23/2024) Medications Misc. Devices MISC Cool mist humidification [...] PRN, Constipation, Informant: Patient, Reported on 08/01/2024 [facility]. Devices MISC Size 10 shiley laryngectomy tube 2 Each 5 08/09/19 20 Active Fluorouracil 5 % External Cream (Efudex)Indicati ons:Actinic keratosis Apply to rough spots on the scalp nightly x 2-4 weeks. 40 g 05/18/19 21 Active Additional Information Patient not taking.Reported on 08/01/2024 [facility]. Devices one ultra voice 1 Each 06/15/19 [...] DAY 90 Tablet 1 09/14/19 24 Active Apixaban 5 MG Oral Tablet (Eliquis) Take 1 Tablet by mouth in the morning and 1 Tablet before bedtime. 60 Tablet 5 11/19/19 24 Active Folic Acid 1 MG Oral Tablet Take 1 Tablet by mouth in the morning. Active Nitroglycerin 0.4 MG Sublingual Tablet Sublingual (Nitrostat)Indic ations:Chronic coronary artery disease Place 1 Tablet under the tongue every 5 minutes as needed for Pain, Chest. Max dose 3 tablets in 15 minutes 25 Tablet 3 06/21/19 25 Active Tamsulosin HCl 0.4 MG Oral Capsule (Flomax) 1 Capsule. 08/06/19 25 Active OLANZapine 2.5 MG Oral Tablet (zyPREXA) 1 Tablet. 07/23/19 25 Active Loperamide HCl 2 MG Oral Capsule (Imodium) TAKE 1 CAPSULE BY MOUTH EVERY 4 HOURS NEEDED FOR LOOSE STOOL 05/20/19 25 Active Mirtazapine 15 MG Oral Tablet (Remeron) 1 Tablet. 07/12/19 25 Active Cyclobenzaprine HCl 10 MG Oral Tablet (Flexeril) 0.5 Tablets. 08/22/19 25 Active predniSONE 20 MG Oral Tablet (Deltasone) 2 Tablets. Taper dose as per hospital discharge instructions 40mg x 5 days, 30mg x 5 days, 20 mg x 5 days, 10mg x2 days, 5 mg x2 days 08/08/19 25 Active Pantoprazole Sodium 40 MG Oral Tablet Delayed Release (Protonix) Take 1 Tablet by mouth in the morning. 30 Tablet 2 08/23/19 25 Active Pantoprazole Sodium 40 MG Oral Tablet Delayed Release (Protonix) 1 Tablet. 04/15/20 24 025 Discontin ued(Refil l) documented as of this encounter (statuses as of 08/23/2024) Active Problems Problem Noted Date Diagnosed Date [...] of gout 02/05/2012 CAD (coronary artery disease), [place] coronary a rtery 01/22/2012 Other voice and [...] as of this encounter (statuses as of 08/23/2024) Resolved Problems Problem Noted Date Diagnosed Date [...] as of this encounter (statuses as of 08/23/2024) Immunizations Name Administration Dates Next Due COVID-19 mRNA, LNP-s, No Pre serve, 2-Dose Series (Prognosis [employer] Information [employer]) 03/29/2021,07/06/2020,06/15/2020 COVID-19, LNP-s, No Preserve , Evert-sucrose, [...] cine, Unspecified Formulation 03/08/2021,02/23/2020,12/31/2018,03/08,03/06/2017,04/25/2016,01/20/2013 ,01/22/2012,01/20/2011,03/08/2010,09/04/2008,03/07/2008,05/17/2001 Seasonal Influenza, High Dos e, Trivalent, PF, [...] 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 Authorizing Provider: NETO MÉNDEZ * Telephone Encounter - Loreta Schmidt RN - 08/22/2024 4:02 PM EDT Patients asking for a refill of ppi- pended Dr Méndez, thank you Pending Prescriptions: Disp Refills Pantoprazole Sodium 40 MG Oral Tablet Del*30 Tab*2 Si Tablet in the morning. Last Visit: 08/01/2024 (in office), 02/22/2021 (telemedicine) Next Visit: 03/16/2025 Last date the medication was ordered: 03/2024 Patient Active Problem List Diagnosis AORTOCORONARY BYPASS STATUS(aka CABG) HISTORY OF TOBACCO USE(aka TOBACCO) Sleep apnea HTN, goal below 140/90 Acquired hypothyroidism Dyslipidemia, goal LDL below 70 Anxiety states Other voice and resonance disorders CAD (coronary artery disease), [place] coronary artery History of gout Dysphagia Bradycardia, [...] Malignant neoplasm metastatic to right lung (HCC) Labs: Lab Results Component Value Date/Time CREATININE - [facility] 0.7 06/21/2024 04:04 PM CREATININE - [facility] 0.84 08/03/2023 12:00 AM CREATININE - [facility] 1.0 06/17/2022 11:24 AM CREATININE - [facility] 1.4 (H) 02/15/2020 01:19 PM CREATININE - [facility] 1.0 01/16/1996 04:00 AM CREATININE, RANDOM URINE - [facility] 108 07/23/2023 12:39 PM CREATININE, RANDOM URINE - [facility] 102 11/09/2019 08:17 AM Lab Results Component Value Date/Time POTASSIUM - [facility] 4.6 06/21/2024 04:04 PM POTASSIUM - [facility] 3.6 08/03/2023 12:00 AM POTASSIUM - [facility] 4.2 06/17/2022 11:24 AM POTASSIUM - [facility] 4.3 02/15/2020 01:19 PM POTASSIUM - [facility] 4.2 01/18/1996 01:00 PM POTASSIUM POCT - [facility] 4.5 04/18/2019 07:43 PM POTASSIUM POCT - [facility] 5.5 (H) 01/15/1996 09:25 AM Lab Results Component Value Date/Time TSH - [facility] 9.13 (H) 06/21/2024 04:04 PM TSH - [facility] 2.66 03/13/2020 09:41 AM TSH - [facility]IDE [facility] 8.025 (A) 01/18/2024 12:00 AM Lab Results Component Value Date/Time LDL CHOLESTEROL (CALCULATED) - [facility] 71 11/27/2023 11:06 AM LDL CHOLESTEROL (CALCULATED) - [facility] 82 07/21/2023 01:44 PM LDL CHOLESTEROL (CALCULATED) - [facility] 56 02/15/2020 01:19 PM LDL CHOLESTEROL (CALCULATED) - [facility] 147 (H) 11/09/2019 08:17 AM LDL CHOLESTEROL (DIRECT MEASURE) - [facility] NOT APPLICABLE 02/15/2020 01:19 PM LDL CHOLESTEROL (DIRECT MEASURE) - [facility] NOT APPLICABLE 11/09/2019 08:17 AM LDL CHOLESTEROL (DIRECT MEASURE) - [facility] 123 (H) 11/17/2006 05:04 PM Lab Results Component Value Date/Time ALT 24 02/29/1996 02:30 PM ALT - [facility] 26 06/21/2024 04:04 PM ALT - [facility] 16 02/15/2020 01:19 PM Hemoglobin AIC Results: Lab Results Component Value Date/Time HEMOGLOBIN A1C - [facility] 5.9 12/02/2010 09:37 AM HEMOGLOBIN A1C - [facility] 5.5 03/14/2010 08:22 AM HEMOGLOBIN A1C - [facility] 5.6 09/04/2008 01:36 PM documented in this encounter Plan of Treatment Upcoming Encounters Date Type Department Care Team (Late st Contact Info) Description 11/30/2024 11:00 AM EDT Cardiac Studies Cardiac Studies, [facility] [address] [place] [phone] 03/16/2025 3:00 PM EST Office Visit General Internal Medicine [facility] [address] [place] [address] Neto Méndez MD [address] [facility] [place] [address] Health Maintenance Due Date Last Done Comments [...] this encounter Medical Devices Implanted Type Area Document Imaging Manager Device Identifier Shelf Expiration Date Model / Serial / Lot Woundmatrix Fenstr [id number] (150 Units) - [id number] - [id number] Implanted:Qty: 150 on 04/18/2019 by Hayden Fleming MD at [facility] Left: Leg Upper [employer] [id number] 01/25/2020 [id number] / [id number] / [id number] Indwelling Voice Prosthesis Implanted:Qty: 1 on 10/26/2019 by Hayden Fleming MD at [place] [facility] [place] N/A: Throat 08/16/2021 1616-NS / / [id number] Description:INHEALTH TECHNOL OGIES REF : IN 1616-NS (HECTOR-ALONZO) CLASSIC INDWELLING VOICE PROSTHESIS WITH INSERTION / CLEANING ACCESSORIES documented as of this encounter Advance Directives Documents on File Type Date Recorded Patient Business Continuity Planner Expl anation Power of Bridge/Structure Inspection Team Leader 09/27/2018 POWER OF A TTORNEY * Full [...] and were consensually agreed upon. Care Teams Bonsai Culturist Relationship Specialty Start Date End Date Neto Méndez MD [address] [place] [address] PCP - General Internal Medicine 02/14/21 documented as of this encounter
--- OUTSIDE RECORDS SUMMARY | 2024-08-25 15:35 | External Medical Summary | Summary of Care ---
Author Name Unknown Organization [facility] Address [address] [facility] [place] [address] Phone [phone] Care Team Providers Care Enrollment Counselor Name Role Phone Neto Rasheed MD Primary Care Provider + Reason for Visit * Reason Onset Date Comments Hospital Follow-Up 08/22/2024 [facility] d/c Encounter Details Date Type Department Care Team (Late st Contact Info) Description 08/22/2024 Telephone General Internal Medicine [facility] [place] [address] [place] [address] Loreta Niño, SELENE Hospital Follow-Up ([facility] d/c ) Allergies No known active allergiesdocumented as of [...] PRN, Constipation, Informant: Patient, Reported on 08/01/20[place] [facility] Devices MISC Size 10 shiley laryngectomy tube 2 Each 5 08/09/19 20 Active Fluorouracil 5 % External Cream (Efudex)Indicati ons:Actinic keratosis Apply to rough spots on the scalp nightly x 2-4 weeks. 40 g 05/18/19 21 Active Additional Information Patient not taking.Reported on 08/01/2024 [facility]. Devices one ultra voice 1 Each 06/15/19 [...] 5 mg x2 days 08/08/19 25 Active Vitron-C 65-125 MG Oral Tablet (Iron-Vitamin C 65-125 mg per tab)Indications: Iron deficiency anemia, unspecified iron deficiency anemia type Take 1 Tablet by mouth in the morning. 09/17/19 24 025 Discontin ued(Medic ation List Clean Up) Pantoprazole Sodium 40 MG Oral Tablet Delayed Release (Protonix) 1 Tablet. 04/15/20 24 025 Discontin ued(Refil l) Potassium Chloride ER 10 MEQ Oral Tablet Extended Release Take 1 Tablet by mouth in the morning and 1 Tablet before bedtime. 06/01/19 25 025 Discontin ued(Medic ation List Clean Up) predniSONE 20 MG Oral Tablet (Deltasone) Take 1 Tablet by mouth in the morning. Taper per oncology . 06/01/19 25 025 Discontin ued(Medic ation List Clean Up) documented as of this encounter (statuses as [...] of gout 02/05/2012 CAD (coronary artery disease), [place] coronary a rtery 01/22/2012 Other voice and [...] mRNA, LNP-s, No Pre serve, 2-Dose Series (Quantum Secure) 03/29/2021,07/06/2020,06/15/2020 COVID-19, LNP-s, No Preserve , Evert-sucrose, Ages 12+ (Pfizer) 08/29/2021 DTaP Dipth/Tet/Acell Pertussis (Infanrix), Peds 09/26/2003 Diptheria/Tetanus Adult (TD) 09/26/2003 Pneumococcal Conjugate Vacc, 13 Valent (Prevnar) 04/25/2016 Pneumococcal Conjugate Vacci ne, 7 Valent 11/17/2006 Pneumococcal Polysaccharide PPV23 (Pneumovax) 10/31/2009 Season Influenza, Quad, PF, Adjuvanted, 65+ Yrs, IM (FLUAD) 02/23/2020 Seasonal Influenza Vac., MDV , IM, 0.5 mL (Fluzone) 01/20/2013,01/22/2012,01/20/2011,03/08,12/26/2008,03/07/2008,05/17/2001 Seasonal Influenza Virus Vac cine, Unspecified Formulation 03/08/2021,02/23/2020,12/31/2018,03/08,03/06/2017,04/25/2016,01/20/2013 ,01/22/2012,01/20/2011,03/08/2010,09/0 04/2008,03/07/2008,05/17/2001 Seasonal Influenza, High Dos e, Trivalent, PF, [...] 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 Answer Date of Assessment Author No 12/06/2019 9:30 PM GIOVANNIT Noemi Mascorro RN * Are you blind [...] Telephone Encounter - Neto Rasheed MD - 08/22/2024 4:51 PM EDT Noted, do feel is hospice appropriate given recent medical issues * Addendum Note - Loreta Niño RN - 08/22/2024 4:07 PM EDTAddended by: LORETA NIÑO on: 08/22/2024 04:07 PM Modules accepted: Orders * Telephone Encounter - Loreta Niño RN - 08/22/2024 3:02 PM EDT Transitions of Care Note Reason for Referral:Recent Admission Phone visit for follow up: JUAN Admitted to: [facility], Date: 08/13 Discharged to: home, Date: 08/21 Diagnosis driving hospitalization:, Acute hypoxic respiratory failure secondary to pneumonia,Right leg swelling with DVT,Episode of rectal bleed, unremarkable colonoscopy, 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 Home health to come tomorrow. worries about her ability to care for him at home. Discussed SNF. CV: Denies problems Pulmonary: Denies problems Chills/Sweats/Fever:Denies chills/sweats Denies fever Appetite:decreased Current diet: soft Bowel: diarrhea Bladder: denies problems Wound (If applicable): dermatitis to buttocks Pain:Denies Sleep:patient sleeping a lot of the time FUNCTIONAL STATUS: ADL'S: Needs Assistance With:Bathing, Eating, Dressing, Toileting, Transferring, and Continence IADL'S: Needs Assistance With:Cooking food, Routine Housework, Using telephone, Taking care of pets, Taking medications, Attending to safety, and Managing money Cognitive and Mental Health: able to communicate, understand instructions, process information. MEDICATION RECONCILIATION Medications: Discharge med list reviewed with patient or caregiver New medication(s) filled since hospitalization- flomax, atorvastatin, prednisone, olanzapine, mirtazapine, cyclobenzaprine ASSESSMENT Medication Risk Assessment: Missing Refills Discharge instructions available for review? Yes PLAN Symptom Monitoring Interventions:Member/caregiver education - signs and symptoms to contact PrimaryCare (DO NOT DELETE-Three craig symptoms patient is to report to PCP) 1. Worsening weakness 2. Wifes inability to care for Joseluis at home 3. Worsening vomiting/diarrhea Home Lighting AdviserCirculation Man of Care interventions/Action Plan: Patient is physically unable to come to clinic for hospital d/c appt Educated on role of JUAN completed with patient/caregiver. Educated patient/caregiver on patient right to have input on JUAN plan of care. Verification of Home Health/DME if indicated: Yes - call placed to [facility] to verify they are to startcare tomorrow AM Identified Care Gaps: Yes Care Gaps closed this call: Medication optimization, Plan of care optimization, Safety and self care issues addressed, and Transition of Care follow-up communication Re-evaluation of Plan of Care and progress towards goals achievement: Patient education this visit: Verbal, as above Plan to instructed to call Primary Care Provider with change in symptoms or as needed before next follow-up, verbalizes understanding and agrees with plan., Discussed with , she may call office and ask to speak with me. Will follow up with her later in the week. Discussed the potential need to return to the hospital if [place] were to be unable to get up. She is unable to lift him up by herself. She states if things continue she may need assistance with placing him in a SNF. Loreta Niño RN * Telephone Encounter - Sowmya Cadena OSA - 08/22/2024 2:57 PM EDT Reason for patient's call: patient returning call to nurse Caller was transferred to [facility] at the nurse line. 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 Attempted Phone Call First Attempt Call Outcome Left Voicemail/Message documented in this encounter Plan of Treatment Upcoming Encounters Date Type Department Care Team (Late st Contact Info) Description 11/30/2024 11:00 AM EDT Cardiac Studies Cardiac Studies, [facility] [address] [place] [phone] 03/16/2025 3:00 PM EST Office Visit General Internal Medicine [facility] [address] [facility] [place] [place] [address] Neto Rasheed MD 200 [facility] [place] [address] Health Maintenance Due Date Last Done Comments [...] this encounter Medical Devices Implanted Type Area Train Planner Device Identifier Shelf Expiration Date Model / Serial / Lot Woundfabian Rosarior [id number] (150 Units) - [id number] - [id number] Implanted:Qty: 150 on 04/18/2019 by Hayden Fleming MD at OR [facility] [place] Left: Leg Upper [employer] [id number] 01/25/2020 [id number] / [id number] / [id number] Indwelling Voice Prosthesis Implanted:Qty: 1 on 10/26/2019 by Hayden Fleming MD at OR [facility] N/A: Throat 08/16/2021 1616-NS / / [id number] Description:INHEALTH TECHNOL [place]I REF : IN 1616-NS (HECTOR-ALONZO) CLASSIC INDWELLING VOICE PROSTHESIS WITH INSERTION / CLEANING ACCESSORIES documented as of this encounter Advance Directives Documents on File Type Date Recorded Patient Profile Trimmer Expl anation Power of Shipping Receiving Manager 09/27/2018 POWER OF A TTORNEY * [...] and were consensually agreed upon. Care Teams Enrollment Counselor Relationship Specialty Start Date End Date Neto Rasheed MD [address] [place] [address] PCP - General Internal Medicine 02/14/21 documented as of this encounter
--- OUTSIDE RECORDS SUMMARY | 2024-08-25 15:35 | External Medical Summary | Summary of Care ---
Author Name Unknown Organization [facility] Address [address] [facility] [place] [address] Phone [phone] Care Team Providers Care Media Relations Associate Name Role Phone Neto Méndez MD Primary Care Provider + Reason for Visit * Reason Comments eRx-Medication Refill Encounter Details Date Type Department Care Team (Late st Contact Info) Description 08/22/2024 Refill General Internal Medicine [facility] 200 [facility] [place] [address] Neto Méndez MD 200 [place] [id number] Allergies No known active allergiesdocumented as of this encounter (statuses as of 08/24/2024) Medications Misc. Devices MISC Cool mist humidification device 1 Each Active Misc. Devices MISC Portable suction device 1 Each Active Misc. Devices MISC Trach care cleaning kit 1 Each Active Misc. Devices MISC Yankauer suction tips 10 Each 5 020 Active Misc. Devices MISC 12Fr flexible suction catheters 10 Each 5 Active Misc. Devices MISC Inner cannulas for Shiley size 10 cuffless laryngectomy tube 10 Each 5 020 Active polyethylene glycol 3350 (MIRALAX) packet Take 1 Packet by mouth daily. 14 Each 020 Active Additional Information Patient taking differently:17 g OralDAILY PRN, Constipation, Informant: Patient, Reported on 08/01/2024 [facility]. Devices MISC Size 10 shiley laryngectomy tube 2 Each 5 020 Active Fluorouracil 5 % External Cream (Efudex)Indicat ions:Actinic keratosis Apply to rough spots on the scalp nightly x 2-4 weeks. 40 g 021 Active Additional Information Patient not taking.Reported on 08/01/2024 [facility]. Devices one ultra voice 1 Each 021 Active Additional Information Patient not taking.Reported on 06/21/2024 Ipratropium-Alb uterol 0.5-2.5 (3) MG/3ML Inhalation Solution (Duoneb)Indicat ions:COPD, moderate (HCC) Inhale via nebulizer 3 mL every 6 hours as needed for Wheezing. 360 mL 5 022 Active Sodium Chloride 0.9 % Inhalation Nebulization SolutionIndicat ions:Aspiration pneumonia of both lungs, unspecified aspiration pneumonia type, unspecified part of lung (HCC) Use as directed to clean tracheostomy 3 mL 3 022 Active Fluorouracil 5 % External Cream (Efudex) apply to left forearm twice daily for 3 weeks, then treat right forearm 40 g 1 023 Active Additional Information Patient not taking.Reported on 08/01/2024 Ipratropium-Alb uterol 0.5-2.5 (3) MG/3ML Inhalation Solution (Duoneb)Indicat ions:COPD, moderate (HCC) Inhale 3 mL via nebulizer in the morning and 3 mL at noon and 3 mL in the evening and 3 mL before bedtime. 360 mL 3 024 Active Additional Information Patient not taking.Reported on 08/01/2024 Albuterol Sulfate (2.5 MG/3ML) 0.083% Inhalation Nebulization Solution (Proventil)Oliva cations:COPD, moderate (HCC) Inhale 1 Vial via nebulizer in the morning and 1 Vial at noon and 1 Vial in the evening and 1 Vial before bedtime. 360 mL 1 024 Active Clopidogrel Bisulfate 75 MG Oral Tablet (pLAVix) TAKE 1 TABLET BY MOUTH EVERY DAY 90 Tablet 1 024 Active Apixaban 5 MG Oral Tablet (Eliquis) Take 1 Tablet by mouth in the morning and 1 Tablet before bedtime. 60 Tablet 5 024 Active Folic Acid 1 MG Oral Tablet Take 1 Tablet by mouth in the morning. Active Nitroglycerin 0.4 MG Sublingual Tablet Sublingual (Nitrostat)Oliva cations:Chronic coronary artery disease Place 1 Tablet under the tongue every 5 minutes as needed for Pain, Chest. Max dose 3 tablets in 15 minutes 25 Tablet 3 025 Active Levothyroxine Sodium 125 MCG Oral Tablet (Levoxyl) TAKE 1 TABLET BY MOUTH EVERY DAY AT LEAST 30 MIN BEFORE BREAKFAST OR OTHER MEDICATION 30 Tablet 025 Active Tamsulosin HCl 0.4 MG Oral Capsule (Flomax) 1 Capsule. 025 Active OLANZapine 2.5 MG Oral Tablet (zyPREXA) 1 Tablet. 025 Active Loperamide HCl 2 MG Oral Capsule (Imodium) TAKE 1 CAPSULE BY MOUTH EVERY 4 HOURS NEEDED FOR LOOSE STOOL 025 Active Mirtazapine 15 MG Oral Tablet (Remeron) 1 Tablet. 025 Active Cyclobenzaprine HCl 10 MG Oral Tablet (Flexeril) 0.5 Tablets. 025 Active predniSONE 20 MG Oral Tablet (Deltasone) 2 Tablets. Taper dose as per hospital discharge instructions 40mg x 5 days, 30mg x 5 days, 20 mg x 5 days, 10mg x2 days, 5 mg x2 days 025 Active Pantoprazole Sodium 40 MG Oral Tablet Delayed Release (Protonix) Take 1 Tablet by mouth in the morning. 30 Tablet 2 025 Active PARoxetine HCl 20 MG Oral Tablet (pAXil) TAKE 1 TABLET BY MOUTH EVERY DAY 90 Tablet 1 025 Active PARoxetine HCl 20 MG Oral Tablet (pAXil) TAKE 1 TABLET BY MOUTH EVERY DAY 90 Tablet 3 023 2024 Discontinued documented as of this encounter (statuses as of 08/24/2024) Active Problems Problem Noted Date Diagnosed Date [...] of gout 02/05/2012 CAD (coronary artery disease), [place] coronary a rtery 01/22/2012 Other voice and [...] as of this encounter (statuses as of 08/24/2024) Resolved Problems Problem Noted Date Diagnosed Date [...] as of this encounter (statuses as of 08/24/2024) Immunizations Name Administration Dates Next Due COVID-19 mRNA, LNP-s, No Pre serve, 2-Dose Series (BitGravity) 03/29/2021,07/06/2020,06/15/2020 COVID-19, LNP-s, No Preserve , Evert-sucrose, [...] 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 Not [...] encounter Miscellaneous Notes * Telephone Encounter - Roque Peace RPh - 08/23/2024 8:14 PM EDT Signed Prescriptions: Disp Refills PARoxetine HCl 20 MG Oral Tablet (pAXil) 90 Tab*1 Sig: TAKE 1 TABLET BY MOUTH EVERY DAYAuthorizing Provider: NETO MÉNDEZ User: ROQUE PEACE documented in this encounter Plan of Treatment Upcoming Encounters Date Type Department Care Team (Late st Contact Info) Description 11/30/2024 11:00 AM EDT Cardiac Studies Cardiac Studies, [facility] [address] [place] [phone] 03/16/2025 3:00 PM EST Office Visit General Internal Medicine [facility] [place] [place] [address] [facility] [place] [address] Neto Méndez MD 200 [facility] [place] [facility] [place] [address] Health Maintenance Due Date Last Done Comments [...] this encounter Medical Devices Implanted Type Area Tire Recapper Device Identifier Shelf Expiration Date Model / Serial / Lot Woundmatrix Fenstr [id number] (150 Units) - [id number] - [id number] Implanted:Qty: 150 on 04/18/2019 by Hayden Fleming MD at [place] [facility] [place] Left: Leg Upper [employer] [id number] 01/25/2020 [id number] / [id number] / [id number] Indwelling Voice Prosthesis Implanted:Qty: 1 on 10/26/2019 by Hayden Fleming MD at [place] [facility] [place] N/A: Throat 08/16/2021 1616-NS / / [id number] Description:INHEALTH TECHNOL OGIES REF : IN 1616-NS (HECTOR-ALONZO) CLASSIC INDWELLING VOICE PROSTHESIS WITH INSERTION / CLEANING ACCESSORIES documented as of this encounter Advance Directives Documents on File Type Date Recorded Patient Data Architect Expl anation Power of Effervescent Salts Compounder 09/27/2018 POWER OF A TTORNEY * Full [...] and were consensually agreed upon. Care Teams Media Relations Associate Relationship Specialty Start Date End Date Neto Méndez MD 200 [facility] [place] [address] PCP - General Internal Medicine 02/14/21 documented as of this encounter
--- OUTSIDE RECORDS SUMMARY | 2024-08-25 15:35 | External Medical Summary | Summary of Care ---
Author Name Unknown Organization [facility] Address [address] [facility] [place] [address] Phone [phone] Care Team Providers Care Marine Habitat Resource Specialist Name Role Phone Neto Rasheed MD Primary Care Provider + Reason for Visit * Reason Onset Date Comments Hospital Follow-Up 08/22/2024 [facility] d/c Encounter Details Date Type Department Care Team (Late st Contact Info) Description 08/22/2024 Telephone General Internal Medicine [facility] [place] [address] [place] [address] Loreta Niño, SELENE Hospital Follow-Up ([facility] d/c ) Allergies No known active allergiesdocumented [...] PRN, Constipation, Informant: Patient, Reported on 08/01/2024 [facility] [place]. Devices MISC Size 10 shiley laryngectomy tube 2 Each 5 08/09/19 20 Active Fluorouracil 5 % External Cream (Efudex)Indicati ons:Actinic keratosis Apply to rough spots on the scalp nightly x 2-4 weeks. 40 g 05/18/19 21 Active Additional Information Patient not taking.Reported on 08/01/2024 [facility]. 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 Worsening vomiting/diarrhea Digital StrategistOffice Services Associate of Care interventions/Action Plan: Patient is physically unable to come to clinic for hospital d/c appt Educated on role of JUAN completed with patient/caregiver. Educated patient/caregiver on patient right to have input on JUAN plan of care. Verification of Home Health/DME if indicated: Yes - call placed to [facility] to verify they are to startcare [...] call to nurse Caller was transferred to [facility] at the nurse line. 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 Attempted Phone Call First Attempt Call Outcome Left Voicemail/Message documented in this encounter Plan of Treatment Upcoming Encounters Date Type Department Care Team (Late st Contact Info) Description 11/30/2024 11:00 AM EDT Cardiac Studies Cardiac Studies, [facility] [address] [place] [phone] 03/16/2025 3:00 PM EST Office Visit General Internal Medicine [facility] 200 [facility] [place] [address] Neto Rasheed MD 200 [facility] [place] [address] Health Maintenance Due Date Last Done Comments [...] this encounter Medical Devices Implanted Type Area Radiator Specialist Device Identifier Shelf Expiration Date Model / Serial / Lot Woundfabian Rosarior [id number] (150 Units) - [id number] - [id number] Implanted:Qty: 150 on 04/18/2019 by Hayden Fleming MD at [place] [facility] [place] Left: Leg Upper [employer] [id number] 01/25/2020 [id number] / [id number] / [id number] Indwelling Voice Prosthesis Implanted:Qty: 1 on 10/26/2019 by Hayden Fleming MD at [place] [facility] [place] N/A: Throat 08/16/2021 1616-NS / / [id number] Description:INHEALTH TECHNOL [place]GNAYELI REF : IN 1616-NS (HECTOR-ALONZO) CLASSIC INDWELLING VOICE PROSTHESIS WITH INSERTION / CLEANING ACCESSORIES documented as of this encounter Advance Directives Documents on File Type Date Recorded Patient Teletypesetter Operator Expl anation Power of Footwear Sales Representative 09/27/2018 POWER OF A TTORNEY * Full [...] and were consensually agreed upon. Care Teams Marine Habitat Resource Specialist Relationship Specialty Start Date End Date Neto Rasheed MD 200 [place] [address] PCP - General Internal Medicine 02/14/21 documented as of this encounter
--- OUTSIDE RECORDS SUMMARY | 2024-08-25 15:36 | External Medical Summary | Summary of Care ---
Author Name Unknown Organization [facility] Address [address] [facility] [place] [address] Phone [phone] Care Team Providers Care I&C Tech Name Role Phone Neto Rasheed MD Primary Care Provider + Encounter Details Date Type Department Care Team (Late st Contact Info) Description 08/18/2024 Result Scan Unspecified Department <No scans attached> Allergies No known active allergiesdocumented as of this encounter (statuses as of 08/19/2024) Medications Misc. Devices MISC Cool mist humidification [...] PRN, Constipation, Informant: Patient, Reported on 08/01/2024 Misc. Devices MISC Size 10 shiley laryngectomy tube 2 Each 5 08/09/19 20 Active Fluorouracil 5 % External Cream (Efudex)Indicati ons:Actinic keratosis Apply to rough spots on the scalp nightly x 2-4 weeks. 40 g 05/18/19 21 Active Additional Information Patient not taking.Reported on 08/01/2024 [facility] [place]. 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 [...] 11:00 AM EDT Cardiac Studies Cardiac Studies, [facility] [address] [place] [phone] 03/16/2025 3:00 PM EST Office Visit General Internal Medicine [facility] 200 [facility] [place] [address] Neto Rasheed MD [address] [facility] [address] Health Maintenance Due Date Last Done Comments [...] this encounter Medical Devices Implanted Type Area Welding Robot Operator Device Identifier Shelf Expiration Date Model / Serial / Lot Woundmatrix Fenstr [id number] (150 Units) - [id number] - [id number] Implanted:Qty: 150 on 04/18/2019 [place] Fleming [place] [facility] [place] Leg Upper [employer] [id number] 01/25/2020 [id number] / [id number] / [id number] Indwelling Voice Prosthesis Implanted:Qty: 1 on 10/26/2019 [place]den Fleming [place] [facility] [place]A: Throat 08/16/2021 1616-NS / / [id number] Description:INHEALTH TECHNOL OGNAYELI REF : IN 1616-NS ([place]) CLASSIC INDWELLING VOICE PROSTHESIS WITH INSERTION / CLEANING ACCESSORIES documented as of this encounter Procedures Procedure Name Priority Date/Time Associated Diagnosis Comments PROCEDURE SCANNED RESULT 08/18/2024 documented in this encounter Results * PROCEDURE SCANNED RESULT (08/18/2024) 08/18/2024 us No Physician Data Unknown SURGERY Final Result documented in this encounter Advance Directives Documents on File Type Date Recorded Patient Identifier Horse Expl anation Power of Concrete Stone Fabricator 09/27/2018 POWER OF A TTORNEY * Full [...] and were consensually agreed upon. Care Teams I&C Tech Relationship Specialty Start Date End Date Neto Rasheed MD 200 [place] [address] PCP - General Internal Medicine 02/14/21 documented as of this encounter
--- OUTSIDE RECORDS SUMMARY | 2024-08-25 15:36 | External Medical Summary | Summary of Care ---
Author Name Unknown Organization [facility] Address [address] [facility] [place] [address] Phone [phone] Care Team Providers Care Nuclear Physics Professor Name Role Phone Neto Rasheed MD Primary Care Provider + Reason for Visit * Reason Onset Date Comments Hospital Follow-Up 08/22/2024 [facility] d/c Encounter Details Date Type Department Care Team (Late st Contact Info) Description 08/22/2024 Telephone General Internal Medicine [facility] [place] [address] [place] [address] Loreta Niño, SELENE Hospital Follow-Up ([facility] d/c ) Allergies No known active allergiesdocumented as of this encounter (statuses as of 08/22/2024) Medications Misc. Devices MISC Cool mist humidification [...] PRN, Constipation, Informant: Patient, Reported on 08/01/2024 [facility] [place]. Devices MISC Size 10 shiley laryngectomy tube 2 Each 5 08/09/19 20 Active Fluorouracil 5 % External Cream (Efudex)Indicati ons:Actinic keratosis Apply to rough spots on the scalp nightly x 2-4 weeks. 40 g 05/18/19 21 Active Additional Information Patient not taking.Reported on 08/01/2024 [facility]. Devices one ultra voice 1 Each 06/15/19 [...] as of this encounter (statuses as of 08/22/2024) Active Problems Problem Noted Date Diagnosed Date [...] of gout 02/05/2012 CAD (coronary artery disease), [place] coronary a rtery 01/22/2012 Other voice and [...] as of this encounter (statuses as of 08/22/2024) Resolved Problems Problem Noted Date Diagnosed Date [...] as of this encounter (statuses as of 08/22/2024) Immunizations Name Administration Dates Next Due COVID-19 mRNA, LNP-s, No Pre serve, 2-Dose Series ([place]) 03/29/2021,07/06/2020,06/15/2020 COVID-19, LNP-s, No Preserve , Evert-sucrose, [...] 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 Worsening vomiting/diarrhea RcisOffice Services Coordinator of Care interventions/Action Plan: Patient is physically unable to come to clinic for hospital d/c appt Educated on role of JUAN completed with patient/caregiver. Educated patient/caregiver on patient right to have input on JUAN plan of care. Verification of Home Health/DME if indicated: Yes - call placed to [facility] to verify they are to startcare tomorrow [...] call to nurse Caller was transferred to [facility] at the nurse line. 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 [address] [place] [phone] 03/16/2025 3:00 PM EST Office Visit General Internal Medicine [facility] [address] [facility] [place] [address] Neto Rasheed MD [address] [facility] [place] [address] Health Maintenance Due Date Last Done Comments [...] this encounter Medical Devices Implanted Type Area Cigarette Carton Sealer Device Identifier Shelf Expiration Date Model / Serial / Lot Woundfabian Rosarior [id number] (150 Units) - [id number] - [id number] Implanted:Qty: 150 on 04/18/2019 by Hayden Fleming MD at [place] [facility] [place] Left: Leg Upper [employer] [id number] 01/25/2020 [id number] / [id number] / [id number] Indwelling Voice Prosthesis Implanted:Qty: 1 on 10/26/2019 by Hayden Fleming MD at [place] [facility] [place] N/A: Throat 08/16/2021 1616-NS / / [id number] Description:INHEALTH TECHNOL [place]GNAYELI REF : IN 1616-NS (HECTOR-ALONZO) CLASSIC INDWELLING VOICE PROSTHESIS WITH INSERTION / CLEANING ACCESSORIES documented as of this encounter Advance Directives Documents on File Type Date Recorded Patient Script Girl Expl anation Power of Cinder Crew Worker 09/27/2018 POWER OF A TTORNEY * Full [...] and were consensually agreed upon. Care Teams Nuclear Physics Professor Relationship Specialty Start Date End Date Neto Rasheed MD 200 [place] [address] PCP - General Internal Medicine 02/14/21 documented as of this encounter
--- OUTSIDE RECORDS SUMMARY | 2024-08-25 15:36 | External Medical Summary | Summary of Care ---
Author Name Unknown Organization [facility] Address [address] [facility] [place] [address] Phone [phone] Care Team Providers Care Chemist Proteins Name Role Phone Neto Rasheed MD Primary Care Provider + Reason for Visit * Reason Onset Date Comments Advice 07/08/2024 Encounter Created in Error 07/08/2024 Encounter Details Date Type Department Care Team (Late st Contact Info) Description 07/08/2024 Telephone General Internal Medicine [facility] [address] [facility] [place] [address] Neto Rasheed MD 200 [place] [address] Advice; Encounter Created in Error Allergies No known active allergiesdocumented as of this encounter (statuses as of 08/17/2024) Medications Misc. Devices MISC Cool mist humidification [...] PRN, Constipation, Informant: Patient, Reported on 08/01/2024 [facility]. Devices MISC Size 10 shiley laryngectomy tube 2 Each 5 08/09/19 20 Active Fluorouracil 5 % External Cream (Efudex)Indicati ons:Actinic keratosis Apply to rough spots on the scalp nightly x 2-4 weeks. 40 g 05/18/19 21 Active Additional Information Patient not taking.Reported on 08/01/2024 [facility]. Devices one ultra voice 1 Each 06/15/19 [...] as of this encounter (statuses as of 08/17/2024) Active Problems Problem Noted Date Diagnosed Date [...] of gout 02/05/2012 CAD (coronary artery disease), [place] coronary a rtery 01/22/2012 Other voice and [...] as of this encounter (statuses as of 08/17/2024) Resolved Problems Problem Noted Date Diagnosed Date [...] as of this encounter (statuses as of 08/17/2024) Immunizations Name Administration Dates Next Due COVID-19 mRNA, LNP-s, No Pre serve, 2-Dose Series (Pumpic) 03/29/2021,07/06/2020,06/15/2020 COVID-19, LNP-s, No Preserve , Evert-sucrose, [...] 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 Caller was transferred to Effie at the nurse line. documented in this encounter Plan of Treatment Upcoming Encounters Date Type Department Care Team (Late st Contact Info) Description 11/30/2024 11:00 AM EDT Cardiac Studies Cardiac Studies, [facility] [address] [place] [phone] 03/16/2025 3:00 PM EST Office Visit General Internal Medicine [facility] [address] [place] [address] Neto Rasheed MD [address] [place] [id number] Health Maintenance Due Date Last Done Comments [...] this encounter Medical Devices Implanted Type Area Low Voltage Technician Device Identifier Shelf Expiration Date Model / Serial / Lot Woundmatrix Fenstr [id number] (150 Units) - [id number] - [id number] Implanted:Qty: 150 on 04/18/2019 by Hayden Fleming MD at [place] [facility] [place] Left: Leg Upper [employer] [id number] 01/25/2020 [id number] / [id number] / [id number] Indwelling Voice Prosthesis Implanted:Qty: 1 on 10/26/2019 by Hayden Fleming MD at [place] [facility] N/A: Throat 08/16/2021 1616-NS / / [id number] Description:INHEALTH TECHNOL IDRIS REF : IN 1616-NS (HECTOR-ALONZO) CLASSIC INDWELLING VOICE PROSTHESIS WITH INSERTION / CLEANING ACCESSORIES documented as of this encounter Advance Directives Documents on File Type Date Recorded Patient Wire Spinner Expl anation Power of Kiss Machine Operator 09/27/2018 POWER OF A TTORNEY * Full [...] and were consensually agreed upon. Care Teams Chemist Proteins Relationship Specialty Start Date End Date Neto Rasheed MD 200 [place] [address] PCP - General Internal Medicine 02/14/21 documented as of this encounter
--- OUTSIDE RECORDS SUMMARY | 2024-08-25 15:36 | External Medical Summary | Summary of Care ---
Author Name Unknown Organization [facility] Address [address] [facility] [place] [address] Phone [phone] Care Team Providers Care Ballet Dancer Name Role Phone Neto Rasheed MD Primary Care Provider + Reason for Visit * Reason Onset Date Comments Hospital Follow-Up 08/22/2024 [facility] d/c Encounter Details Date Type Department Care Team (Late st Contact Info) Description 08/22/2024 Telephone General Internal Medicine [facility] [place] [address] [place] [address] Loreta Schmidt, SELENE Hospital Follow-Up ([facility] d/c ) Allergies No known active allergiesdocumented [...] PRN, Constipation, Informant: Patient, Reported on 08/01/2024 [facility]. Devices MISC Size 10 shiley laryngectomy tube 2 Each 5 08/09/19 20 Active Fluorouracil 5 % External Cream (Efudex)Indicati ons:Actinic keratosis Apply to rough spots on the scalp nightly x 2-4 weeks. 40 g 05/18/19 21 Active Additional Information Patient not taking.Reported on 08/01/2024 [facility]. 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 Not [...] encounter Miscellaneous Notes * Telephone Encounter - Loreta Schmidt RN - 08/22/2024 9:41 AM EDT Transitions of Care Note Reason for Referral:Recent Admission Phone visit for follow up: JUAN Admitted to: [facility], Date: 08/18 Discharged to: home, Date: 08/21 Diagnosis driving hospitalization: Acute hypoxic respiratory failure secondary to pneumonia, 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 Attempted Phone Call First Attempt Call Outcome Left Voicemail/Message documented in this encounter Plan of Treatment Upcoming Encounters Date Type Department Care Team (Late st Contact Info) Description 11/30/2024 11:00 AM EDT Cardiac Studies Cardiac Studies, [facility] [place] [address] [place] [phone] 03/16/2025 3:00 PM EST Office Visit General Internal Medicine [place] [facility] [address] [place] [address] Neto Rasheed MD [address] [place] [phone] Health Maintenance Due Date Last Done Comments [...] this encounter Medical Devices Implanted Type Area Survey Technologist Device Identifier Shelf Expiration Date Model / Serial / Lot Woundmatrix Fenstr [id number] (150 Units) - [id number] - [id number] Implanted:Qty: 150 on 04/18/2019 by Hayden Fleming MD at OR [facility] Left: Leg Upper [employer] [id number] 01/25/2020 [id number] / [id number] / [id number] Indwelling Voice Prosthesis Implanted:Qty: 1 on 10/26/2019 by Hayden Fleming MD at OR [facility] N/A: Throat 08/16/2021 1616-NS / / [id number] Description:INHEALTH TECHNOL IDRIS REF : IN 1616-NS (HECTOR-) CLASSIC INDWELLING VOICE PROSTHESIS WITH INSERTION / CLEANING ACCESSORIES documented as of this encounter Advance Directives Documents on File Type Date Recorded Patient Marketing Programs Specialist Expl anation Power of Corporate Recycling Manager 09/27/2018 POWER OF A TTORNEY * [...] and were consensually agreed upon. Care Teams Ballet Dancer Relationship Specialty Start Date End Date Neto Rasheed MD 200 [place] [address] PCP - General Internal Medicine 02/14/21 documented as of this encounter
[2024-08-25] MEDS: metroNIDAZOLE 500 MG/100 ML BAG IV STA (16:07)
[2024-08-25] MEDS: POTASSIUM CHLORIDE PWD 20 MEQ PACK PO STA (16:07)
--- OUTSIDE RECORDS SUMMARY | 2024-08-25 21:08 | External Medical Summary | Summary of Care ---
Author Name Unknown Organization [facility] Address [address] [facility] [place] [address] Phone [phone] Care Team Providers Care Learning Facilitator Name Role Phone Neto Rasheed MD Primary Care Provider + Reason for Visit * Reason Onset Date Comments Follow Up 08/24/2024 Advice 08/24/2024 Encounter Details Date Type Department Care Team (Late st Contact Info) Description 08/24/2024 Telephone General Internal Medicine [facility] [address] [facility] [place] [address] Neto Rasheed MD 200 [facility] [place] [id number] Follow Up; Advice Allergies No known active allergiesdocumented as of this encounter (statuses as of 08/25/2024) Medications Misc. Devices MISC Cool mist humidification [...] PRN, Constipation, Informant: Patient, Reported on 08/01/2024 [facility]. [facility] shiley laryngectomy tube 2 Each 5 08/09/19 20 Active Fluorouracil 5 % External Cream (Efudex)Indicati ons:Actinic keratosis Apply to rough spots on the scalp nightly x 2-4 weeks. 40 g 05/18/19 21 Active Additional Information Patient not taking.Reported on 08/01/2024 [facility]. Devices one ultra voice 1 Each 06/15/19 [...] Additional Information Patient not taking.Reported on 08/01/2024 Ipratropium-Albu terol 0.5-2.5 (3) MG/3ML Inhalation Solution [...] bedtime. 360 mL 1 08/04/19 24 Active Clopidogrel Bisulfate 75 MG Oral [...] minutes 25 Tablet 3 06/21/19 25 Active Levothyroxine Sodium 125 MCG Oral Tablet (Levoxyl) TAKE 1 TABLET BY MOUTH EVERY DAY AT LEAST 30 MIN BEFORE BREAKFAST OR OTHER MEDICATION 30 Tablet 08/24/19 25 Active Tamsulosin HCl 0.4 MG Oral [...] morning. 30 Tablet 2 08/23/19 25 Active PARoxetine HCl 20 MG Oral Tablet (pAXil) TAKE 1 TABLET BY MOUTH EVERY DAY 90 Tablet 1 08/24/19 25 Active documented as of this encounter (statuses as of 08/25/2024) Active Problems Problem Noted Date Diagnosed Date [...] of gout 02/05/2012 CAD (coronary artery disease), [place] coronary a rtery 01/22/2012 Other voice and [...] as of this encounter (statuses as of 08/25/2024) Resolved Problems Problem Noted Date Diagnosed Date [...] as of this encounter (statuses as of 08/25/2024) Immunizations Name Administration Dates Next Due COVID-19 mRNA, LNP-s, No Pre serve, 2-Dose Series ([place]zz[place]) 03/29/2021,07/06/2020,06/15/2020 COVID-19, LNP-s, No Preserve , Evert-sucrose, [...] 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 Yesterday, he fell due to low BP HH believes. Pt is not eating or drinking much, has incontinence, is staying in bed not doing much of anything. He is scheduled for chemo next week; but, feels his condition is worsening and they are sending him back to [facility] and pt's agrees. Please call pt's at: [phone] LISA Norton * Telephone Encounter - Lance Laird OSA - 08/25/2024 10:41 AM EDT Reason for patient's call: Pts Tiffany calling Follow up advice needed for in hospital Caller was transferred to Cierra at the nurse line. * Telephone Encounter - Loreta Schmidt RN - 08/24/2024 3:09 PM EDT Provider to address: Reason for Call: Follow Up Contact: Telephone Call Contact Type: Follow-up Provider In-Basket: No Outcome: Call made to spouse Tiffany to follow up from our conversation on Thursday. If she returns call please transfer to my extension at [phone]. Thank you Face to face time spent with Patient (minutes): 0 Total Time including non face to face (minutes): 10 documented in this encounter Plan of Treatment Upcoming Encounters Date Type Department Care Team (Late st Contact Info) Description 11/30/2024 11:00 AM EDT Cardiac Studies Cardiac Studies, [facility] [address] [place] [phone] 03/16/2025 3:00 PM EST Office Visit General Internal Medicine [facility] [address] [place] [address] Neto Rasheed MD [address] [place] [address] Health Maintenance Due Date Last Done Comments [...] this encounter Medical Devices Implanted Type Area Phone Screener Device Identifier Shelf Expiration Date Model / Serial / Lot Woundmatrix Fenstr [id number] (150 Units) - [id number] - [id number] Implanted:Qty: 150 on 04/18/2019 by Hayden Fleming MD [place] [facility] [place] Left: Leg Upper [employer] [id number] 01/25/2020 [id number] / [id number] / [id number] Indwelling Voice Prosthesis Implanted:Qty: 1 on 10/26/2019 by Hayden Fleming MD at [place] [facility] N/A: Throat 08/16/2021 1616-NS / / [id number] Description:INHEALTH TECHNOL IDRIS REF : IN 1616-NS ([place]) CLASSIC INDWELLING VOICE PROSTHESIS WITH INSERTION / CLEANING ACCESSORIES documented as of this encounter Advance Directives Documents on File Type Date Recorded 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 Care Teams Learning Facilitator Relationship Specialty Start Date End Date Neto Rasheed MD [address] [facility] [place] [address] PCP - General Internal Medicine 02/14/21 documented as of this encounter
[2024-08-25] MEDS: metroNIDAZOLE 500 MG/100 ML BAG IV SCH (21:36)
[2024-08-25] MEDS: MIRTAZAPINE TAB 15 MG TAB PO SCH (21:36)
[2024-08-25] MEDS: OLANZAPINE 2.5 MG TAB PO SCH (21:36)
[2024-08-25] MEDS: APIXABAN 5 MG TABLET PO SCH (21:36)
[2024-08-25] MEDS: MELATONIN 3 MG TAB PO PRN (21:38)
[2024-08-25] MEDS: CEFEPIME 2000MG 2,000 MG/20 ML SYR IV SCH (21:38)
[2024-08-25 22:27] LABS: Appearance Urine Clear (Clear); Bacteria Urine Automated None Seen (None Seen); Bilirubin Urine Negative (Negative); Blood Urine Negative (Negative); Cast Urine Automated 0-2 /lpf (0-2); Color Urine Yellow; Epithelial Cell Urine Auto 0-2 /hpf (0-2); Glucose Urine UA Negative (Negative); Ketones Urine Negative (Negative); Leukocyte Esterase Urine Negative (Negative); Nitrite Urine Negative (Negative); Protein Urine Trace (Negative); RBC Urine Automated 0-2 /hpf (0-2); Specific Gravity Urine 1.009 (1.000-1.030); Urobilinogen Urine Negative (Negative); WBC Urine Automated 0-5 /hpf (0-5)
[2024-08-26] MEDS: MAGNESIUM SULFATE / D5W 1 GM/100 ML BAG IV SCH (03:45)
[2024-08-26] MEDS: POTASSIUM CHLORIDE PWD 20 MEQ PACK PO STA (05:16)
[2024-08-26] MEDS: POTASSIUM CHLORIDE CRTAB 20 MEQ TABCR PO STA (05:18)
[2024-08-26] MEDS ORDERED: POTASSIUM CHLORIDE CRTAB 20 MEQ TABCR PO ONE (05:35)
[2024-08-26] MEDS: LEVOTHYROXINE SODIUM 125 MCG TABLET PO SCH (05:55)
[2024-08-26] MEDS: POTASSIUM CHLORIDE PWD 20 MEQ PACK PO ONE (06:28)
[2024-08-26 06:48] LABS: Basophils # (auto) 0.01 K/uL (0.00-0.20); Basophils % (auto) 0.2 %; Eosinophils # (auto) 0.02 K/uL (0.00-0.50); Eosinophils % (auto) 0.4 %; Hematocrit (blood only) 24.5 % (42.0-52.0); Immature Granulocytes # (auto) 0.04 K/uL (0.01-0.20); Immature Granulocytes % (auto) 0.8 %; Lymphocytes # (auto) 0.44 K/uL (1.20-3.40); Lymphocytes % (auto) 9.2 %; Mean Corpuscular Hemoglobin 28.9 pg (25.0-34.0); Mean Corpuscular Hgb Conc 32.7 g/dL (32.0-36.0); Mean Corpuscular Volume 88.4 fL (80.0-100.0); Mean Platelet Volume 9.3 fL (9.4-12.4); Monocytes # (auto) 0.46 K/uL (0.11-0.59); Monocytes % (auto) 9.7 %; Neutrophils # (auto) 3.79 K/uL (1.40-6.50); Neutrophils % (auto) 79.7 %; Platelet Count 219 K/uL (130-400); RDW Coefficient of Variation 16.5 % (11.5-14.5); RDW Standard Deviation 52.7 fL (36.4-46.3); Red Blood Count 2.77 M/uL (4.70-6.10); White Blood Count 4.76 K/ul (4.8-10.8)
[2024-08-26 07:18] LABS: Albumin Globulin Ratio 0.8 (0.9-2); Albumin Level 2.2 gm/dl (3.4-5.0); BUN Creatinine Ratio 20.6 (10-20); Bilirubin,Total 0.3 mg/dl (0.2-1.0); Creatinine Clr Calc Pharmacy 91.3 ml/min; Globulin 2.9 gm/dl (2.5-4.0); Magnesium 1.8 mg/dl (1.7-2.4); Potassium 3.9 mmol/L (3.5-5.1); Total Protein 5.1 gm/dl (6.0-8.3)
[2024-08-26 07:33] LABS: Thyroid Stimulating Hormone 10.073 uIu/ml (0.300-4.500)
[2024-08-26 08:09] LABS: T4 Free Thyroxine 1.06 ng/dl (0.61-1.60)
[2024-08-26] MEDS: PANTOprazole 40 MG TAB PO SCH (08:20)
--- NOTE | 2024-08-26 13:59 | Hospitalist Progress Note ---
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 #RLL Pneumonia #Generalized weakness CXR on admission shows interval development of R sided PNA recent sputum culture + pseudomonas c.w IV Cefepime 08/25 and flagyl 08/25; follow admitting bl cx. suctioning prn PT/OT - pt wants to go to rehab #Chronic Diarrhea pt with chronic diarrhea in setting of on going immunotherapies s/p steroid tapers, completed most recently 08/19 Reports at baseline/slightly better. #Chronic Normocytic Anemia recent admission has + hemocult stool, requiring 1 unit PRBC on 08/19, Flex sig done on 08/18 that did not show any polyp or bleeding Hgb at presentation 9.6, today 8 which is about his baseline, no evidence of bleeding monitor h/h continue eliquis and plavix for now #Moderate aortic stenosis #Chronic Heart failure with preserved ejection fraction ECHO 11/2023 with EF 55-59%, follows cards op Pt appears euvolemic, continue home meds #CAD Status post CABG 1995 On Plavix and statin and beta-liliana continue toprol #Paroxysmal atrial fibrillation #Sick sinus syndrome status post pacemaker continue toprol and eliquis #Peripheral vascular disease #History of TIA secondary to bilateral carotid stenosis status post right CEA 02/2018 and left CEA 05/2018 -continue Plavix and statin -Pt has been on plavix during recent hospitalization; however per pharmacy review pt has not filled the medication at [facility] is quite some time, will need a refill of this medication at discharge #RLE swelling #Recent DVT of right lower extremity -Occurred after he stopped Eliquis for a port replacement LLE -Currently on Eliquis -continues with RLE swelling but pt feels improved #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 #Status post total laryngectomy right neck dissection, subtotal -Currently On Keytruda and chemotherapy; last session 08/09 -Monitor for mucous plugging of tracheal stoma - #thyroidectomy, acquired hypothyroidism elevated TSH and nl fT4 in a.m. continue Synthroid, repeat TFT in 6 weeks. 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 Admission and Anticipated Discharge Date Admission Date: August 25, 2024 Subjective Patient was seen and examined at bedside. Patient was lying in bed, on room air, NAD, resting comfortably. Patient indicates that his cough is improving, he feels significantly better, he is eating okay and moving bowels okay. He denies nausea or vomiting. Physical Exam Physical Exam: Constitutional: elderly, chronically ill male, NAD, pleasant, conversing easily Head: Normocephalic, Atraumatic Eyes: PERRL, conjunctivae normal, anicteric sclerae ENMT: external ear and nose normal, oropharynx dry Neck: +trach stoma, no surrounding erythema, normal visual inspection Respiratory: normal respiratory effort, lungs clear to auscultation + Rhonchi/crackles RLL, no wheeze, rales. Normal insp/exp effort, no accessory muscle use Cardiovascular: RRR, no murmur,RLE edema ++, no erythema, warmth or discoloration, b/l palpable +2 pedal pulse Vessels: no JVD or carotid bruit Chest: normal inspection of chest Abdomen: normal bowel sounds, soft, nontender, no hepatosplenomegaly Musculoskeletal: no cyanosis or clubbing, AROM x 4 Skin: no rashes, warm and dry normal turgor Neurologic: no face palsy, no dysarthria CN's II-XI intact bilaterally and moves all extremities Psychiatric: A+Ox3, euthymic affect Lymphatic: no cervical or axillary lymphadenopathy : deferred Results & Data Results & Data Vital Signs (Past 12 Hours) Vital Signs Temp Pulse Pulse Pulse Resp BP Pulse Ox 08/26/24 12:52 36.7 C 65 15 143/66 H 95 08/26/24 12:01 08/26/24 07:46 36.8 C 64 18 114/63 96 08/26/24 06:45 65 08/26/24 03:21 37.2 C 78 17 123/61 95 Pulse Ox O2 Del Method O2 Del Method 08/26/24 12:52 Room Air 08/26/24 12:01 95 Room Air 08/26/24 07:46 Room Air 08/26/24 06:45 08/26/24 03:21 Room Air (6) Deep vein thrombosis (DVT) of right lower extremity Affected thrombotic vein of extremity: femoral Chronicity: acute Qualified Code(s): I82.411 - Acute embolism and thrombosis of right femoral vein
[2024-08-26 20:15] LABS: Hematocrit (blood only) 24.7 % (42.0-52.0); Hemoglobin 7.9 g/dl (14.0-18.0)
[2024-08-27 06:17] LABS: Hematocrit (blood only) 24.5 % (42.0-52.0); Mean Corpuscular Hgb Conc 32.7 g/dL (32.0-36.0); Mean Corpuscular Volume 88.8 fL (80.0-100.0); Mean Platelet Volume 9.3 fL (9.4-12.4); Platelet Count 242 K/uL (130-400); RDW Coefficient of Variation 16.7 % (11.5-14.5); RDW Standard Deviation 53.5 fL (36.4-46.3); Red Blood Count 2.76 M/uL (4.70-6.10); White Blood Count 4.47 K/ul (4.8-10.8)
[2024-08-27 06:37] LABS: BUN Creatinine Ratio 15.2 (10-20); Calcium 7.1 mg/dl (8.6-10.3); Creatinine Clr Calc Pharmacy 87.2 ml/min; Potassium 4.1 mmol/L (3.5-5.1)
--- NOTE | 2024-08-27 06:58 | Gastrointestinal Consultation ---
Date of Consultation August 27, 2024 Assessment & Plan (1) Rectal bleeding: Suspect anorectal bleeding. Rectal exam revealed just normal-appearing brown stool no overt blood. No further episodes of bleeding. In light of prior history of rectal pain he may have an anal fissure which I could not detect on e xam however debility was impaired by covering his perianal area. In light of comorbidities would not intervene at this time endoscopically. Continue to monitor his hemoglobin and hematocrit. Will reassess depending upon whether there is persistent or progressive bleeding. His hemoglobin is within his baseline levels from prior admissions. History of Present Illness Reason for Consultation: Rectal bleeding Attending Physician: Kerline Castellanos MD History of Present Illness Patient admitted to the hospital for progressive weakness leukocytosis possible right lower lobe pneumonia on antibiotics. He had an episode of bright red blood per rectum yesterday. He claims it was a small amount. His last admission was only a few weeks ago when he was also experiencing some rectal pain. He had a proctoscopy/sigmoidoscopy performed which did not show any significant pathology. He has not had any recent endoscopic procedures. He denies any significant change in bowel habits abdominal pain nausea or vomiting. He has multiple comorbidities including recurrent laryngeal cancer now receiving chemotherapy. He also has significant cardiac disease and pulmonary disease. He is on longstanding chronic anticoagulation. Allergies Allergy/AdvReac Type Severity Reaction Status Date / Time rosuvastatin [From Crestor] Allergy Unknown HAPPENED A Verified 08/13/24 15:17 LONG TIME AGO. Home Medications Medication Instructions Recorded Confirmed Type levothyroxine 125 mcg tablet 125 mcg PO DAILYBB 03/25/18 08/25/24 History nitroglycerin 0.4 mg sublingual 1 tab sublingual UD PRN Chest Pain 03/25/18 08/25/24 History tablet apixaban 5 mg tablet (Eliquis) 5 mg PO AMHS 09/13/21 08/25/24 History olanzapine 2.5 mg tablet 2.5 mg PO HS 07/24/24 08/25/24 History diphenoxylate-atropine 2.5 1 tab PO QID PRN Diarrhea 08/05/24 08/25/24 History mg-0.025 mg tablet mirtazapine 15 mg tablet 15 mg PO HS 08/05/24 08/25/24 History pantoprazole 40 mg tablet,delayed 40 mg PO DAILY 08/05/24 08/25/24 History release cyclobenzaprine 10 mg tablet 5 mg (1/2 x 10 mg) PO TID PRN 08/21/24 08/25/24 Rx muscle spasm #30 tabs clopidogrel 75 mg tablet 75 mg PO DAILY 08/25/24 08/25/24 History metoprolol succinate 25 mg 25 mg PO DAILY 08/25/24 08/25/24 History tablet,extended release 24 hr Patient History Medical History S/P radiation therapy Thyroid disease Back problem Moderate aortic stenosis Acute electrocardiogram changes Difficult airway for intubation H/o glidescope #4 with CEA 03/2018 Carotid artery stenosis with cerebral infarction over 8 weeks ago The patient presented to [facility] ED on 03/26/18 with expressive aphasia, left upper extremity numbness, left lower extremity weakness. Symptoms were resolving by the time the patient arrived in the ED. 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 on CPAP no longer on CPAP post tracheostomy Surgical History Hx of laryngectomy (~1999) History of bronchoscopy History of tonsillectomy History of carotid endarterectomy RIGHT (MARCH 2018) History of cataract extraction with lens replacement cataract extraction with IOL implant and LRI left eye - 05/02/12 History of colonoscopy with polypectomy History of rotator cuff surgery Right - 2009 History of coronary artery bypass graft X2 VESSEL 1995 -- [facility] Family History Mother Essential hypertension Stroke Sister Cancer Breast cancer Daughter Cancer Colon cancer Social History Smoking Status: Former smoker Tobacco Type: Cigarettes Age Quit Using Tobacco: 55; packs per day: 2; Second Hand Exposure: No; Do You Dip or Chew Tobacco: No; Hx Alcohol Use: No Hx Substance Use: No Preferred Language: Lithuanian Communication Ability: Impaired Communication Ability Comment: Trach stoma Visual Impairment: No Limitations Hearing Ability: Normal 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: No Beliefs That Will Affect Care: None marital status: Current Living Situation: Spouse Current Living Situation Comment: home with spouse current occupational status: retired How many Children do You have: 2 How many Children do You have Comment: Son can help Other Information That Helps Us Care for You: No other: Home health nursing twice per week Feels Safe at Home: Yes Safety Concerns: Feels Safe At This Time Diet: regular during the past year weight has: decreased > 10 lbs Physical Activity Frequency: Does not Exercise Assistive Devices: Cane and Walker Review of Systems Review of Systems: No fever No chills No SOB No CP No Abd pain Physical Exam Physical Exam: Eyes; anicteric HENT No masses Chest clear to A Cor S1, S2 physiologic Abd: softer nontender no masses Ext no edema Rectal exam nontender stool was brown no overt blood Results & Data Vital Signs (Past 12 Hours) Vital Signs Temp Pulse Pulse Resp BP Pulse Ox O2 Del Method 08/27/24 03:00 36.6 C 74 16 133/67 95 Room Air 08/26/24 23:00 37.5 C 63 18 115/63 95 Room Air 08/26/24 22:26 71 08/26/24 21:00 Room Air 08/26/24 19:30 37.6 C H 74 20 118/61 95 Room Air Laboratory Results Laboratory Results - last 48 hr 08/25/24 08/25/24 08/26/24 11:55 Unknown 06:07 WBC 4.02 L 4.76 L RBC 3.37 L 2.77 L Hgb 9.6 L 8.0 L Hct 29.9 L 24.5 L MCV 88.7 88.4 MCH 28.5 28.9 MCHC 32.1 32.7 RDW Std Deviation 52.5 H 52.7 H RDW Coeff of Sharda 16.3 H 16.5 H Plt Count 221 219 MPV 9.4 9.3 L Immature Gran % (Auto) 1.0 0.8 Neut % (Auto) 79.1 79.7 Lymph % (Auto) 10.9 9.2 Loup % (Auto) 8.5 9.7 Eos % (Auto) 0.0 0.4 Baso % (Auto) 0.5 0.2 Neut # (Auto) 3.18 3.79 Lymph # (Auto) 0.44 L 0.44 L Loup # (Auto) 0.34 0.46 Eos # (Auto) 0.00 0.02 Baso # (Auto) 0.02 0.01 Immature Gran # (Auto) 0.04 0.04 Sodium 139 135 L Potassium 3.4 L 3.9 Chloride 106 105 Carbon Dioxide 27 25 Anion Gap 6 5 BUN 13 13 Creatinine 0.60 0.63 Est Cr Clr Drug Dosing 95.9 91.3 eGFR 94.60 93.21 BUN/Creatinine Ratio 21.7 H 20.6 H Glucose 142 H 118 H Lactate 1.8 Calcium 7.6 L 7.0 L Magnesium 1.7 1.8 Total Bilirubin 0.4 0.3 Direct Bilirubin 0.1 AST 27 25 ALT 30 28 Alkaline Phosphatase 92 78 Troponin I High Sens 10.0 Total Protein 5.6 L 5.1 L Albumin 2.4 L 2.2 L Globulin 3.2 2.9 Albumin/Globulin Ratio 0.8 L 0.8 L Lipase 6 L Procalcitonin 0.09 TSH 10.073 H Free T4 1.06 Random Cortisol 4.47 Urine Color Yellow Urine Appearance Clear Urine pH 6.0 Ur Specific [place] 1.009 Urine Protein Trace H Urine Glucose (UA) Negative Urine Ketones Negative Urine Blood Negative Urine Nitrite Negative Urine Bilirubin Negative Urine Urobilinogen Negative Ur Leukocyte Esterase Negative Urine WBC (Auto) 0-5 Urine RBC (Auto) 0-2 U Hyaline Cast (Auto) 0-2 U Epithel Cells (Auto) 0-2 Urine Bacteria (Auto) None Seen Stool Occult Bld Scrn 08/26/24 08/26/24 08/27/24 14:59 19:49 05:42 WBC 4.47 L RBC 2.76 L Hgb 7.9 L 8.0 L Hct 24.7 L 24.5 L MCV 88.8 MCH 29.0 MCHC 32.7 RDW Std Deviation 53.5 H RDW Coeff of Sharda 16.7 H Plt Count 242 MPV 9.3 L Immature Gran % (Auto) Neut % (Auto) Lymph % (Auto) [place]oup % (Auto) Eos % (Auto) Baso % (Auto) Neut # (Auto) Lymph # (Auto) Loup # (Auto) Eos # (Auto) Baso # (Auto) Immature Gran # (Auto) Sodium 136 Potassium 4.1 Chloride 105 Carbon Dioxide 27 Anion Gap 4 BUN 10 Creatinine 0.66 Est Cr Clr Drug Dosing 87.2 eGFR 91.91 BUN/Creatinine Ratio 15.2 Glucose 82 Lactate Calcium 7.1 L Magnesium Total Bilirubin Direct Bilirubin AST ALT Alkaline Phosphatase Troponin I High Sens Total Protein Albumin Globulin Albumin/Globulin Ratio Lipase Procalcitonin TSH Free T4 Random Cortisol Urine Color Urine Appearance Urine pH Ur Specific [place] Urine Protein Urine Glucose (UA) Urine Ketones Urine Blood Urine Nitrite Urine Bilirubin Urine Urobilinogen Ur Leukocyte Esterase Urine WBC (Auto) Urine RBC (Auto) U Hyaline Cast (Auto) U Epithel Cells (Auto) Urine Bacteria (Auto) Stool Occult Bld Scrn Positive A PG Care Time/CCT Total # of Minutes Spent Total Time Spent with Patient: Total time spent is greater than 50% in coordination of care (as documented) at patient's floor/unit and/or counseling patient: Coding Level of Care Code 38296 INT INP/OBS CARE MIN Diagnoses Rectal bleeding K62.5
[2024-08-27] MEDS ORDERED: Heparin IV Adult Wt-Based Low-Dose *NO* INITIAL Bolus Protocol IV SCH (07:55)
[2024-08-27 09:18] LABS: Basophils # (auto) 0.04 K/uL (0.00-0.20); Basophils % (auto) 0.8 %; Eosinophils # (auto) 0.01 K/uL (0.00-0.50); Eosinophils % (auto) 0.2 %; Hematocrit (blood only) 27.5 % (42.0-52.0); Hemoglobin 8.9 g/dl (14.0-18.0); Immature Granulocytes # (auto) 0.06 K/uL (0.01-0.20); Immature Granulocytes % (auto) 1.1 %; Lymphocytes # (auto) 0.42 K/uL (1.20-3.40); Lymphocytes % (auto) 7.9 %; Mean Corpuscular Hemoglobin 28.8 pg (25.0-34.0); Mean Corpuscular Hgb Conc 32.4 g/dL (32.0-36.0); Mean Platelet Volume 9.3 fL (9.4-12.4); Monocytes # (auto) 0.49 K/uL (0.11-0.59); Monocytes % (auto) 9.3 %; Neutrophils # (auto) 4.27 K/uL (1.40-6.50); Neutrophils % (auto) 80.7 %; Platelet Count 269 K/uL (130-400); RDW Coefficient of Variation 16.8 % (11.5-14.5); RDW Standard Deviation 53.6 fL (36.4-46.3); Red Blood Count 3.09 M/uL (4.70-6.10); White Blood Count 5.29 K/ul (4.8-10.8)
[2024-08-27 09:38] LABS: INR 1.2 (0.9-1.1); Partial Thromboplastin Ratio 1.2; Partial Thromboplastin Time 31 Seconds (21-31); Prothrombin Time 12.7 Seconds (9.0-12.0)
[2024-08-27] MEDS: ALTEPLASE, RECOMBINANT 1 MG/ML 2ML VIAL INSTIL ONE (10:16)
[2024-08-27] MEDS: ADVANCED PROBIOTIC 625 MG CAPSULE PO SCH (11:47)
[2024-08-27] MEDS: HEPARIN 25000 UNIT/500 ML D5W 25,000 UNITS/500 ML BAG IV SCH (11:47)
[2024-08-27] MEDS: METOPROLOL SUCC 25MG EXT REL TAB PO SCH (11:48)
[2024-08-27] MEDS: HEPARIN 100 UNIT/ML 5ML FLUSH FLUSH PRN (12:23)
[2024-08-27 13:17] LABS: Hematocrit (blood only) 28.8 % (42.0-52.0); Hemoglobin 9.2 g/dl (14.0-18.0)
--- NOTE | 2024-08-27 15:08 | Electrocardiogram Report ---
Test Reason : Blood Pressure : */* mmHG Vent. Rate : 78 BPM Atrial Rate : 78 BPM P-R Int : 174 ms QRS Dur : 88 ms QT Int : 404 ms P-R-T Axes : * 81 11 degrees QTcB Int : 460 ms Atrial-paced rhythm Nonspecific T wave abnormality Voltage criteria for left ventricular hypertrophy Abnormal ECG When compared with ECG of 13-Aug-2024 13:32, Electronic atrial pacemaker has replaced Electronic ventricular pacemaker Confirmed by Dione Navarrete ([id number]) on 08/27/2024 3:08:32 PM Referred By: Confirmed By: Dione Navarrete
--- NOTE | 2024-08-27 15:12 | Hospitalist Progress Note ---
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 #RLL Pneumonia #Generalized weakness CXR on admission shows interval development of R sided PNA recent sputum culture + pseudomonas c.w IV Cefepime 08/25 and flagyl 08/25; follow admitting bl cx --> No growth 48 hours. suctioning prn PT/OT - pt wants to go to rehab #Chronic Diarrhea pt with chronic diarrhea in setting of on going immunotherapies s/p steroid tapers, completed most recently 08/19 Reports at baseline/slightly better. #Chronic Normocytic Anemia recent admission has + hemocult stool, requiring 1 unit PRBC on 08/19, Flex sig done on 08/18 that did not show any polyp or bleeding Hgb at presentation 9.6, on 08/26 was 8 which is about his baseline 08/26 later afternoon pt noted to have bright red in stool per RN --> eliquis was held, GI consulted. GI evaled, likely bleed from anal fissure. d/w GI 08/27, will resume anticoagulation given recent RLE DVT monitor h/h, has been statble. Hep drip for now, if HnH continues to be stable, will transition to eliquis. #Moderate aortic stenosis #Chronic Heart failure with preserved ejection fraction ECHO 11/2023 with EF 55-59%, follows cards op Pt appears euvolemic, continue home meds #CAD Status post CABG 1995 On Plavix and statin and beta-liliana continue toprol #Paroxysmal atrial fibrillation #Sick sinus syndrome status post pacemaker continue toprol and eliquis #Peripheral vascular disease #History of TIA secondary to bilateral carotid stenosis status post right CEA 02/2018 and left CEA 05/2018 -continue Plavix and statin -Pt has been on plavix during recent hospitalization; however per pharmacy review pt has not filled the medication at [facility] is quite some time, will need a refill of this medication at discharge #RLE swelling #Recent DVT of right lower extremity -Occurred after he stopped Eliquis for a port replacement LLE -Currently on Eliquis -continues with RLE swelling but pt feels improved #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 #Status post total laryngectomy right neck dissection, subtotal -Currently On Keytruda and chemotherapy; last session 08/09 -Monitor for mucous plugging of tracheal stoma - #thyroidectomy, acquired hypothyroidism elevated TSH and nl fT4 in a.m. continue Synthroid, repeat TFT in 6 weeks. #Dysphagia #Protein reji malnutrition reports needing some softer diet, noting issues with certain pills Speech consult for dysphagia eval and optimizing diet information analyst consult DVT PPX eliquis Full code Dispo: PT/OT, CM to assist w/ dc plan. Patient's daughter and were updated over the phone, answered all the questions. Admission and Anticipated Discharge Date Admission Date: August 25, 2024 Subjective Patient was seen and examined at bedside. Patient was lying in bed, on room air, NAD, resting comfortably. Patient indicates that his cough is improving, he feels significantly better, he is eating okay. He denies nausea or vomiting. He has smear of red blood in stool yesterday per RN, HnH has been stable. Physical Exam Physical Exam: Constitutional: elderly, chronically ill male, NAD, pleasant, conversing easily Head: Normocephalic, Atraumatic Eyes: PERRL, conjunctivae normal, anicteric sclerae ENMT: external ear and nose normal, oropharynx dry Neck: +trach stoma, no surrounding erythema, normal visual inspection Respiratory: normal respiratory effort, lungs clear to auscultation + Rhonchi/crackles RLL, no wheeze, rales. Normal insp/exp effort, no accessory muscle use Cardiovascular: RRR, no murmur,RLE edema ++, no erythema, warmth or discoloration, b/l palpable +2 pedal pulse Vessels: no JVD or carotid bruit Chest: normal inspection of chest Abdomen: normal bowel sounds, soft, nontender, no hepatosplenomegaly Musculoskeletal: no cyanosis or clubbing, AROM x 4 Skin: no rashes, warm and dry normal turgor Neurologic: no face palsy, no dysarthria CN's II-XI intact bilaterally and moves all extremities Psychiatric: A+Ox3, euthymic affect Lymphatic: no cervical or axillary lymphadenopathy : deferred Results & Data Results & Data Vital Signs (Past 12 Hours) Vital Signs Temp Pulse Resp BP Pulse Ox O2 Del Method 08/27/24 12:29 37.2 C 63 16 126/66 94 Room Air 08/27/24 08:05 36.5 C 70 16 147/62 H 93 Room Air (6) Deep vein thrombosis (DVT) of right lower extremity Affected thrombotic vein of extremity: femoral Chronicity: acute Qualified Code(s): I82.411 - Acute embolism and thrombosis of right femoral vein
[2024-08-27 19:44] LABS: ANTI-Xa, UFH(UnfractionatedHep 0.22 IU/ml (0.3-0.7)
[2024-08-28 02:38] LABS: ANTI-Xa, UFH(UnfractionatedHep 0.19 IU/ml (0.3-0.7)
[2024-08-28] MEDS: HEPARIN SOD (PORCINE) 1000 UNIT/ML IV ONE (02:59)
[2024-08-28 05:42] LABS: Hematocrit (blood only) 24.7 % (42.0-52.0); Hemoglobin 7.9 g/dl (14.0-18.0); Mean Corpuscular Hemoglobin 28.2 pg (25.0-34.0); Mean Corpuscular Volume 88.2 fL (80.0-100.0); Mean Platelet Volume 9.1 fL (9.4-12.4); Platelet Count 251 K/uL (130-400); RDW Coefficient of Variation 16.7 % (11.5-14.5); RDW Standard Deviation 53.5 fL (36.4-46.3); White Blood Count 6.24 K/ul (4.8-10.8)
[2024-08-28 05:58] LABS: BUN Creatinine Ratio 17.8 (10-20); Calcium 7.3 mg/dl (8.6-10.3); Creatinine Clr Calc Pharmacy 78.8 ml/min; Potassium 3.8 mmol/L (3.5-5.1)
[2024-08-28 06:08] LABS: ANTI-Xa, UFH(UnfractionatedHep 0.41 IU/ml (0.3-0.7)
--- NOTE | 2024-08-28 07:54 | Gastroenterology Progress Note ---
Date of Service August 28, 2024 Assessment & Plan (1) Rectal bleeding: Plan: No further rectal bleeding. Normal bowel movements. No intervention warranted at this time. Call if any further issues. Admission and Anticipated Discharge Date Admission Date: August 25, 2024 Subjective Resting comfortably no shortness of breath no chest pain no abdominal pain. No further rectal bleeding. Recent bowel movement was brown stool. Physical Exam Physical Exam: No acute distress Respiratory rate regular Cardiac rhythm regular Abdomen soft nontender Results & Data Results & Data Vital Signs (Past 12 Hours) Vital Signs Temp Pulse Pulse Resp BP Pulse Ox O2 Del Method 08/28/24 03:04 36.9 C 67 16 127/63 94 Room Air 08/27/24 22:27 75 08/27/24 22:00 36.7 C 68 18 118/54 L 94 Room Air 08/27/24 20:00 Room Air PG Care Time/CCT Total # of Minutes Spent Total Time Spent with Patient: Total time spent is greater than 50% in coordination of care (as documented) at patient's floor/unit and/or counseling patient: Coding Level of Care Code 38678 SUB INP/OBS CARE 2/35MIN Diagnoses Rectal bleeding K62.5
[2024-08-28 09:43] LABS: ANTI-Xa, UFH(UnfractionatedHep 0.27 IU/ml (0.3-0.7)
--- NOTE | 2024-08-28 15:26 | Hospitalist Progress Note ---
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 #RLL Pneumonia #Generalized weakness CXR on admission shows interval development of R sided PNA recent sputum culture + pseudomonas c.w IV Cefepime 08/25 and flagyl 08/25; follow admitting bl cx --> No growth 48 hours. suctioning prn PT/OT - pt wants to go to rehab #Chronic Diarrhea pt with chronic diarrhea in setting of on going immunotherapies s/p steroid tapers, completed most recently 08/19 Reports at baseline/slightly better. #Chronic Normocytic Anemia recent admission has + hemocult stool, requiring 1 unit PRBC on 08/19, Flex sig done on 08/18 that did not show any polyp or bleeding Hgb at presentation 9.6, on 08/26 was 8 which is about his baseline 08/26 later afternoon pt noted to have bright red in stool per RN --> eliquis was held, GI consulted. GI evaled, likely bleed from anal fissure. d/w GI 08/27, will resume anticoagulation given recent RLE DVT monitor h/h, has been statble. Hep drip for now, if HnH continues to be stable, will transition to eliquis. #Moderate aortic stenosis #Chronic Heart failure with preserved ejection fraction ECHO 11/2023 with EF 55-59%, follows cards op Pt appears euvolemic, continue home meds #CAD Status post CABG 1995 On Plavix and statin and beta-liliana continue toprol #Paroxysmal atrial fibrillation #Sick sinus syndrome status post pacemaker continue toprol and eliquis #Peripheral vascular disease #History of TIA secondary to bilateral carotid stenosis status post right CEA 02/2018 and left CEA 05/2018 -continue Plavix and statin -Pt has been on plavix during recent hospitalization; however per pharmacy review pt has not filled the [facility] at [facility] quite some time, will need a refill of this medication at discharge #RLE swelling #Recent DVT of right lower extremity -Occurred after he stopped Eliquis for a port replacement LLE -Currently on Eliquis -continues with RLE swelling but pt feels improved #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 #Status post total laryngectomy right neck dissection, subtotal -Currently On Keytruda and chemotherapy; last session 08/09 -Monitor for mucous plugging of tracheal stoma - #thyroidectomy, acquired hypothyroidism elevated TSH and nl fT4 in a.m. continue Synthroid, repeat TFT in 6 weeks. #Dysphagia #Protein reji malnutrition reports needing some softer diet, noting issues with certain pills Speech consult for dysphagia eval and optimizing diet donor services manager consult DVT PPX eliquis Full code Dispo: PT/OT, CM to assist w/ dc plan. Patient's daughter and were updated over the phone 08/27, answered all the questions. Admission and Anticipated Discharge Date Admission Date: August 25, 2024 Subjective Patient was seen and examined at bedside. Patient was lying in bed, on room air, NAD, resting comfortably. Patient indicates that his cough is improving, he feels significantly better, he is eating okay. He denies nausea or vomiting. He had brown stool yesterday per RN, HnH has been stable. Physical Exam Physical Exam: Constitutional: elderly, chronically ill male, NAD, pleasant, conversing easily Head: Normocephalic, Atraumatic Eyes: PERRL, conjunctivae normal, anicteric sclerae ENMT: external ear and nose normal, oropharynx dry Neck: +trach stoma, no surrounding erythema, normal visual inspection Respiratory: normal respiratory effort, lungs clear to auscultation + Rhonchi/crackles RLL, no wheeze, rales. Normal insp/exp effort, no accessory muscle use Cardiovascular: RRR, no murmur,RLE edema ++, no erythema, warmth or discoloration, b/l palpable +2 pedal pulse Vessels: no JVD or carotid bruit Chest: normal inspection of chest Abdomen: normal bowel sounds, soft, nontender, no hepatosplenomegaly Musculoskeletal: no cyanosis or clubbing, AROM x 4 Skin: no rashes, warm and dry normal turgor Neurologic: no face palsy, no dysarthria CN's II-XI intact bilaterally and moves all extremities Psychiatric: A+Ox3, euthymic affect Lymphatic: no cervical or axillary lymphadenopathy : deferred Results & Data Results & Data Vital Signs (Past 12 Hours) Vital Signs Temp Pulse Pulse Resp BP Pulse Ox O2 Del Method 08/28/24 11:44 36.5 C 63 16 118/50 L 92 Room Air 08/28/24 08:00 Room Air 08/28/24 07:59 36.6 C 72 16 134/58 L 95 Room Air (6) Deep vein thrombosis (DVT) of right lower extremity Affected thrombotic vein of extremity: femoral Chronicity: acute Qualified Code(s): I82.411 - Acute embolism and thrombosis of right femoral vein
[2024-08-28 16:54] LABS: ANTI-Xa, UFH(UnfractionatedHep 0.26 IU/ml (0.3-0.7)
[2024-08-29 01:01] LABS: ANTI-Xa, UFH(UnfractionatedHep 0.27 IU/ml (0.3-0.7)
[2024-08-29 08:35] LABS: Basophils # (auto) 0.04 K/uL (0.00-0.20); Basophils % (auto) 0.5 %; Eosinophils # (auto) 0.05 K/uL (0.00-0.50); Eosinophils % (auto) 0.7 %; Hematocrit (blood only) 27.3 % (42.0-52.0); Hemoglobin 8.6 g/dl (14.0-18.0); Immature Granulocytes # (auto) 0.06 K/uL (0.01-0.20); Immature Granulocytes % (auto) 0.8 %; Lymphocytes # (auto) 0.79 K/uL (1.20-3.40); Lymphocytes % (auto) 10.5 %; Mean Corpuscular Hemoglobin 27.9 pg (25.0-34.0); Mean Corpuscular Hgb Conc 31.5 g/dL (32.0-36.0); Mean Corpuscular Volume 88.6 fL (80.0-100.0); Mean Platelet Volume 9.2 fL (9.4-12.4); Monocytes # (auto) 0.95 K/uL (0.11-0.59); Monocytes % (auto) 12.6 %; Neutrophils # (auto) 5.66 K/uL (1.40-6.50); Neutrophils % (auto) 74.9 %; Platelet Count 313 K/uL (130-400); Red Blood Count 3.08 M/uL (4.70-6.10); White Blood Count 7.55 K/ul (4.8-10.8)
[2024-08-29 08:59] LABS: ANTI-Xa, UFH(UnfractionatedHep 0.34 IU/ml (0.3-0.7)
--- NOTE | 2024-08-29 15:09 | Hospitalist Progress Note ---
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 #RLL Pneumonia #Generalized weakness CXR on admission shows interval development of R sided PNA recent sputum culture + pseudomonas c.w IV Cefepime 08/25 and flagyl 08/25; follow admitting bl cx --> No growth 48 hours. suctioning prn PT/OT - pt wants to go to rehab #Chronic Diarrhea pt with chronic diarrhea in setting of on going immunotherapies s/p steroid tapers, completed most recently 08/19 Reports at baseline/slightly better. #Chronic Normocytic Anemia recent admission has + hemocult stool, requiring 1 unit PRBC on 08/19, Flex sig done on 08/18 that did not show any polyp or bleeding Hgb at presentation 9.6, on 08/26 was 8 which is about his baseline 08/26 later afternoon pt noted to have bright red in stool per RN --> eliquis was held, GI consulted. GI evaled, likely bleed from anal fissure. d/w GI 08/27, will resume anticoagulation given recent RLE DVT monitor h/h, has been statble. Hep drip for now, if HnH continues to be stable, will transition to eliquis delmer AM. #Moderate aortic stenosis #Chronic Heart failure with preserved ejection fraction ECHO 11/2023 with EF 55-59%, follows cards op Pt appears euvolemic, continue home meds #CAD Status post CABG 1995 On Plavix and statin and beta-liliana continue toprol #Paroxysmal atrial fibrillation #Sick sinus syndrome status post pacemaker continue toprol and eliquis #Peripheral vascular disease #History of TIA secondary to bilateral carotid stenosis status post right CEA 02/2018 and left CEA 05/2018 -continue Plavix and statin -Pt has been on plavix during recent hospitalization; however per pharmacy review pt has not filled the medication at [facility] is quite some time, will need a refill of this medication at discharge #RLE swelling #Recent DVT of right lower extremity -Occurred after he stopped Eliquis for a port replacement LLE -Currently on Eliquis -continues with RLE swelling but pt feels improved #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 #Status post total laryngectomy right neck dissection, subtotal -Currently On Keytruda and chemotherapy; last session 08/09 -Monitor for mucous plugging of tracheal stoma - #thyroidectomy, acquired hypothyroidism elevated TSH and nl fT4 in a.m. continue Synthroid, repeat TFT in 6 weeks. #Dysphagia #Protein reji malnutrition reports needing some softer diet, noting issues with certain pills Speech consult for dysphagia eval and optimizing diet slab worker consult DVT PPX eliquis Full code Dispo: PT/OT, CM to assist w/ dc plan. can dc to rehab. Patient's daughter and were updated over the phone 08/27, answered all the questions. Admission and Anticipated Discharge Date Admission Date: August 25, 2024 Subjective Patient was seen and examined at bedside. Patient was lying in bed, on room air, NAD, resting comfortably. Patient reports improved cough, he feels significantly better, he is eating okay. He denies nausea or vomiting. He had brown stool yesterday per pt, HnH has been stable. Physical Exam Physical Exam: Constitutional: elderly, chronically ill male, NAD, pleasant, conversing easily Head: Normocephalic, Atraumatic Eyes: PERRL, conjunctivae normal, anicteric sclerae ENMT: external ear and nose normal, oropharynx dry Neck: +trach stoma, no surrounding erythema, normal visual inspection Respiratory: normal respiratory effort, lungs clear to auscultation + Rhonchi/crackles RLL, no wheeze, rales. Normal insp/exp effort, no accessory muscle use Cardiovascular: RRR, no murmur,RLE edema ++, no erythema, warmth or discoloration, b/l palpable +2 pedal pulse Vessels: no JVD or carotid bruit Chest: normal inspection of chest Abdomen: normal bowel sounds, soft, nontender, no hepatosplenomegaly Musculoskeletal: no cyanosis or clubbing, AROM x 4 Skin: no rashes, warm and dry normal turgor Neurologic: no face palsy, no dysarthria CN's II-XI intact bilaterally and moves all extremities Psychiatric: A+Ox3, euthymic affect Lymphatic: no cervical or axillary lymphadenopathy : deferred Results & Data Results & Data Vital Signs (Past 12 Hours) Vital Signs Temp Pulse Pulse Pulse Resp BP Pulse Ox 08/29/24 13:05 71 08/29/24 13:05 60 08/29/24 12:14 08/29/24 11:17 37.0 C 75 17 108/62 90 08/29/24 07:23 36.6 C 71 16 126/63 92 08/29/24 05:29 66 08/29/24 03:55 36.8 C 79 20 134/51 L 92 O2 Del Method 08/29/24 13:05 08/29/24 13:05 08/29/24 12:14 Room Air 08/29/24 11:17 Room Air 08/29/24 07:23 Room Air 08/29/24 05:29 08/29/24 03:55 Room Air (6) Deep vein thrombosis (DVT) of right lower extremity Affected thrombotic vein of extremity: femoral Chronicity: acute Qualified Code(s): I82.411 - Acute embolism and thrombosis of right femoral vein
[2024-08-30 06:28] LABS: Hematocrit (blood only) 25.7 % (42.0-52.0); Hemoglobin 8.1 g/dl (14.0-18.0)
[2024-08-30 06:59] LABS: ANTI-Xa, UFH(UnfractionatedHep 0.35 IU/ml (0.3-0.7)
--- NOTE | 2024-08-30 13:31 | Hospitalist Progress Note ---
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 #RLL Pneumonia #Generalized weakness CXR on admission shows interval development of R sided PNA recent sputum culture + pseudomonas c.w IV Cefepime 08/25 and flagyl 08/25; follow admitting bl cx --> No growth 48 hours. suctioning prn PT/OT - pt wants to go to rehab Plan 7 d atb therapy. #Chronic Diarrhea pt with chronic diarrhea in setting of on going immunotherapies s/p steroid tapers, completed most recently 08/19 Reports better than baseline now. #Chronic Normocytic Anemia recent admission has + hemocult stool, requiring 1 unit PRBC on 08/19, Flex sig done on 08/18 that did not show any polyp or bleeding Hgb at presentation 9.6, on 08/26 was 8 which is about his baseline 08/26 later afternoon pt noted to have bright red in stool per RN --> eliquis was held, GI consulted. GI evaled, likely bleed from anal fissure. d/w GI 08/27, will resume anticoagulation given recent RLE DVT monitor h/h, has been stable. DC hep drip in evening and resume home eliquis. #Moderate aortic stenosis #Chronic Heart failure with preserved ejection fraction ECHO 11/2023 with EF 55-59%, follows cards op Pt appears euvolemic, continue home meds #CAD Status post CABG 1995 On Plavix and statin and beta-liliana continue toprol #Paroxysmal atrial fibrillation #Sick sinus syndrome status post pacemaker continue toprol and eliquis #Peripheral vascular disease #History of TIA secondary to bilateral carotid stenosis status post right CEA 02/2018 and left CEA 05/2018 -continue Plavix and statin -Pt has been on plavix during recent hospitalization; however per pharmacy re view pt has not filled the medication at [facility] is quite some time, will need a refill of this medication at discharge #RLE swelling #Recent DVT of right lower extremity -Occurred after he stopped Eliquis for a port replacement LLE -Currently on Eliquis -continues with RLE swelling but pt feels improved #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 #Status post total laryngectomy right neck dissection, subtotal -Currently On Keytruda and chemotherapy; last session 08/09 -Monitor for mucous plugging of tracheal stoma - #thyroidectomy, acquired hypothyroidism elevated TSH and nl fT4 in a.m. continue Synthroid, repeat TFT in 6 weeks. #Dysphagia #Protein reji malnutrition reports needing some softer diet, noting issues with certain pills Speech consult for dysphagia eval and optimizing diet cosmetic chemist consult DVT PPX eliquis Full code Dispo: PT/OT, CM to assist w/ dc plan. can dc to rehab. Patient's daughter and were updated over the phone 08/27, answered all the questions. Admission and Anticipated Discharge Date Admission Date: August 25, 2024 Subjective Patient was seen and examined at bedside. Patient was lying in bed, on room air, NAD, resting comfortably. Patient reports improved cough, he feels significantly better, he is eating okay. He denies nausea or vomiting. No BM since yesterday per Pt, HnH has been stable. Physical Exam Physical Exam: Constitutional: elderly, chronically ill male, NAD, pleasant, conversing easily Head: Normocephalic, Atraumatic Eyes: PERRL, conjunctivae normal, anicteric sclerae ENMT: external ear and nose normal, oropharynx dry Neck: +trach stoma, no surrounding erythema, normal visual inspection Respiratory: normal respiratory effort, lungs clear to auscultation + Rhonchi/crackles RLL, no wheeze, rales. Normal insp/exp effort, no accessory muscle use Cardiovascular: RRR, no murmur,RLE edema ++, no erythema, warmth or discoloration, b/l palpable +2 pedal pulse Vessels: no JVD or carotid bruit Chest: normal inspection of chest Abdomen: normal bowel sounds, soft, nontender, no hepatosplenomegaly Musculoskeletal: no cyanosis or clubbing, AROM x 4 Skin: no rashes, warm and dry normal turgor Neurologic: no face palsy, no dysarthria CN's II-XI intact bilaterally and moves all extremities Psychiatric: A+Ox3, euthymic affect Lymphatic: no cervical or axillary lymphadenopathy : deferred Results & Data Results & Data Vital Signs (Past 12 Hours) Vital Signs Temp Pulse Pulse Resp BP Pulse Ox O2 Del Method 08/30/24 08:20 Other 08/30/24 05:52 70 08/30/24 03:14 36.3 C L 72 18 143/61 H 94 Room Air (6) Deep vein thrombosis (DVT) of right lower extremity Affected thrombotic vein of extremity: femoral Chronicity: acute Qualified Code(s): I82.411 - Acute embolism and thrombosis of right femoral vein
[2024-08-30] MEDS: [UNRECOGNIZED DRUG - REMARK] ONE (20:01)
[2024-08-31 05:58] LABS: Basophils # (auto) 0.04 K/uL (0.00-0.20); Basophils % (auto) 0.5 %; Eosinophils # (auto) 0.04 K/uL (0.00-0.50); Eosinophils % (auto) 0.5 %; Hematocrit (blood only) 24.6 % (42.0-52.0); Immature Granulocytes # (auto) 0.09 K/uL (0.01-0.20); Immature Granulocytes % (auto) 1.2 %; Lymphocytes # (auto) 0.79 K/uL (1.20-3.40); Lymphocytes % (auto) 10.5 %; Mean Corpuscular Hgb Conc 32.5 g/dL (32.0-36.0); Mean Corpuscular Volume 89.1 fL (80.0-100.0); Monocytes # (auto) 1.27 K/uL (0.11-0.59); Monocytes % (auto) 16.9 %; Neutrophils # (auto) 5.28 K/uL (1.40-6.50); Neutrophils % (auto) 70.4 %; Platelet Count 308 K/uL (130-400); RDW Coefficient of Variation 17.4 % (11.5-14.5); RDW Standard Deviation 54.3 fL (36.4-46.3); Red Blood Count 2.76 M/uL (4.70-6.10); White Blood Count 7.51 K/ul (4.8-10.8)
[2024-08-31 06:40] LABS: ANTI-Xa, UFH(UnfractionatedHep 0.34 IU/ml (0.3-0.7)
[2024-08-31] MEDS: CLOPIDOGREL BISULFATE 75 MG TAB PO SCH (08:33)
--- NOTE | 2024-08-31 14:38 | Hospitalist Progress Note ---
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 #RLL Pneumonia #Generalized weakness CXR on admission shows interval development of R sided PNA Recent sputum culture + pseudomonas c.w IV Cefepime 08/25 and flagyl 08/25; follow admitting bl cx --> No growth 48 hours. Suctioning prn PT/OT - pt wants to go to rehab Plan 7 d atb therapy. Has been feeling much better without any respiratory symptoms Antibiotic will be done tomorrow #Chronic Diarrhea pt with chronic diarrhea in setting of on going immunotherapies s/p steroid tapers, completed most recently 08/19 Reports better than baseline now. #Chronic Normocytic Anemia recent admission has + hemocult stool, requiring 1 unit PRBC on 08/19, Flex sig done on 08/18 that did not show any polyp or bleeding Hgb at presentation 9.6, on 08/26 was 8 which is about his baseline 08/26 later afternoon pt noted to have bright red in stool per RN --> eliquis was held, GI consulted. GI evaled, likely bleed from anal fissure. d/w GI 08/27, will resume anticoagulation given recent RLE DVT monitor h/h, has been stable. Eliquis has been restarted #Moderate aortic stenosis #Chronic Heart failure with preserved ejection fraction ECHO 11/2023 with EF 55-59%, follows cards op Pt appears euvolemic, continue home meds Denies any cardiac symptoms #CAD Status post CABG 1995 On Plavix and statin and beta-liliana continue toprol #Paroxysmal atrial fibrillation #Sick sinus syndrome status post pacemaker continue toprol and eliquis Heart rate is controlled #Peripheral vascular disease #History of TIA secondary to bilateral carotid stenosis status post right CEA 02/2018 and left CEA 05/2018 -continue Plavix and statin -Pt has been on plavix during recent hospitalization; however per pharmacy review pt [facility] not [facility], will need a refill of this medication at discharge #RLE swelling #Recent DVT of right lower extremity -Occurred after he stopped Eliquis for a port replacement LLE -Currently on Eliquis -continues with RLE swelling but pt feels improved -Swelling of the right leg is improving #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 #Status post total laryngectomy right neck dissection, subtotal -Currently On Keytruda and chemotherapy; last session 08/09 -Monitor for mucous plugging of tracheal stoma - will advised to keep appointment with oncologist as an outpatient #thyroidectomy, acquired hypothyroidism elevated TSH and nl fT4 in a.m. continue Synthroid, repeat TFT in 6 weeks. #Dysphagia #Protein reji malnutrition reports needing some softer diet, noting issues with certain pills Speech consult for dysphagia eval and optimizing diet lamp tester and inspector consult DVT PPX eliquis Full code Dispo: PT/OT, CM to assist w/ dc plan. can dc to rehab. Patient's daughter and were updated over the phone 08/27, answered all the questions. Admission and Anticipated Discharge Date Admission Date: August 25, 2024 Subjective 08/31/2024 The patient was seen and examined in medical telemetry unit He has been generally weak but denies any other significant symptoms Denies any cough and/or shortness of breath Has had physical therapy and recommended rehab Review of Systems Review of Systems: All systems reviewed and are unremarkable except as noted below Physical Exam Physical Exam: Lying in bed without any acute distress Constitutional: + ill appearing and average body habitus Eyes: PERRL, conjunctivae normal, anicteric sclerae ENMT: external ear and nose normal, oropharynx normal Neck: trachea midline, no thyromegaly Has tracheostomy site intact Respiratory: no respiratory distress Auscultation: lungs clear to auscultation bilaterally Cardiovascular: Rate/Rhythm: regular rate and regular rhythm; not tachycardic Heart Sounds: normal S1, normal S2 and + murmur Extremities: no edema Gastrointestinal (Abdomen): Inspection/Auscultation: normal bowel sounds; abdomen not distended Percussion/Palpation: abdomen soft; abdomen nontender Musculoskeletal: No acute arthritis involving all of the joint Neurologic: normal touch/pain/proprioception and moves all extremities; no focal motor deficits Lymphatic: no cervical or axillary lymphadenopathy Results & Data Results & Data Vital Signs (Past 12 Hours) Vital Signs Temp Pulse Pulse Resp BP Pulse Ox O2 Del Method 08/31/24 12:25 36.6 C 62 16 134/58 L 96 Room Air 08/31/24 09:59 Room Air 08/31/24 07:43 36.6 C 76 16 114/56 L 90 Room Air 08/31/24 07:43 81 Laboratory Results Short CBC 08/31/24 Range/Units 05:29 WBC 7.51 (4.8-10.8) K/ul Hgb 8.0 L (14.0-18.0) g/dl Hct 24.6 L (42.0-52.0) % Plt Count 308 (130-400) K/uL Medications Administered Current Inpatient Medications Acetaminophen (Acetaminophen 325 Mg Tab) 650 mg PO Q4H PRN PRN Reason: Pain or Fever Stop: 09/24/24 14:54 Apixaban (Apixaban 5 Mg Tablet) 5 mg PO AMHS [facility] Stop: 09/24/24 20:59 Last Admin: 08/31/24 08:33 Dose: 5 mg Clopidogrel Bisulfate (Clopidogrel Bisulfate 75 Mg Tab) 75 mg PO DAILY HUNG Stop: 09/30/24 08:59 Last Admin: 08/31/24 08:33 Dose: 75 mg Cyclobenzaprine HCl (Cyclobenzaprine Hcl 10 Mg Tab) 5 mg PO TID PRN PRN Reason: muscle spasm Stop: 09/24/24 15:06 Diphenoxylate HCl/Atropine (Diphenoxylate/Atropine 2.5/0.025mg Tab) 1 tab PO QID PRN PRN Reason: Diarrhea Stop: 09/24/24 14:54 Famotidine (Famotidine 20 Mg Tab) 20 mg PO DAILY PRN PRN Reason: Heartburn Stop: 09/24/24 14:54 Heparin Sodium (Porcine) (Heparin 100 Unit/Ml 5ml Flush) 5 ml FLUSH PRN PRN PRN Reason: Flush Stop: 09/25/24 05:30 Last Admin: 08/30/24 14:10 Dose: 5 ml Cefepime HCl (Maxipime 2000mg) 2,000 mg in 20 mls @ 5 mls/min IV Q8H [facility]; Protocol Stop: 09/01/24 21:59 Last Admin: 08/31/24 13:16 Dose: 5 mls/min Metronidazole (Flagyl) 500 mg in 100 mls @ 100 mls/hr IV Q8H [facility]; Protocol Stop: 09/01/24 21:59 Last Infusion: 08/31/24 14:18 Dose: Infused Heparin Sodium/Dextrose (Heparin 06129 Unit/500 Ml D5w) 25,000 units in 500 mls @ 29 mls/hr IV .[id number] [facility]; Protocol Stop: 09/26/24 08:14 Last Admin: 08/30/24 14:10 Dose: 1,450 units/hr, 29 mls/hr Lactobacillus Acidophilus (Advanced Probiotic 625 Mg Capsule) 1,250 mg PO DAILY [facility] Stop: 09/26/24 08:59 Last Admin: 08/31/24 08:36 Dose: Not Given Levothyroxine Sodium (Levothyroxine Sodium 125 Mcg Tablet) 125 mcg PO DAILYBB [facility] Stop: 09/25/24 06:29 Last Admin: 08/31/24 05:57 Dose: 125 mcg Melatonin (Melatonin 3 Mg Tab) 6 mg PO HS PRN PRN Reason: Sleep Stop: 09/24/24 20:59 Last Admin: 08/29/24 21:18 Dose: 6 mg Metoprolol Succinate (Metoprolol Succ 25mg Ext Rel Tab) 12.5 mg PO DAILY HUNG Stop: 09/26/24 08:59 Last Admin: 08/31/24 08:33 Dose: 12.5 mg Mirtazapine (Mirtazapine Tab 15 Mg Tab) 15 mg PO HS [facility] Stop: 09/24/24 20:59 Last Admin: 08/30/24 20:11 Dose: 15 mg Olanzapine (Olanzapine 2.5 Mg Tab) 2.5 mg PO HS [facility] Stop: 09/24/24 20:59 Last Admin: 08/30/24 20:11 Dose: 2.5 mg Ondansetron HCl (Ondansetron Inj 2 Mg/Ml 2 Ml Vial) 4 mg IV Q6H PRN PRN Reason: Nausea Stop: 09/24/24 14:54 Pantoprazole Sodium (Pantoprazole 40 Mg Tab) 40 mg PO DAILY HUNG Stop: 09/25/24 08:59 Last Admin: 08/31/24 08:33 Dose: 40 mg Polyethylene Glycol (Polyethylene (Miralax) 17 Gm Pack) 17 gm PO DAILY PRN PRN Reason: Constipation Stop: 09/24/24 14:54 (6) Deep vein thrombosis (DVT) of right lower extremity Affected thrombotic vein of extremity: femoral Chronicity: acute Qualified Code(s): I82.411 - Acute embolism and thrombosis of right femoral vein
--- NOTE | 2024-09-01 12:37 | Hospitalist Progress Note ---
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 #RLL Pneumonia #Generalized weakness CXR on admission shows interval development of R sided PNA Recent sputum culture + pseudomonas c.w IV Cefepime 08/25 and flagyl 08/25; follow admitting bl cx --> No growth 48 hours. Suctioning prn PT/OT - pt wants to go to rehab Plan 7 d atb therapy. Has been feeling much better without any respiratory symptoms Antibiotic will be done tomorrow Denies any cough, shortness of breath or wheezing Likely discharge tomorrow and antibiotic course will be done by tomorrow #Chronic Diarrhea pt with chronic diarrhea in setting of on going immunotherapies s/p steroid tapers, completed most recently 08/19 Reports better than baseline now. #Chronic Normocytic Anemia recent admission has + hemocult stool, requiring 1 unit PRBC on 08/19, Flex sig done on 08/18 that did not show any polyp or bleeding Hgb at presentation 9.6, on 08/26 was 8 which is about his baseline 08/26 later afternoon pt noted to have bright red in stool per RN --> eliquis was held, GI consulted. GI evaled, likely bleed from anal fissure. d/w GI 08/27, will resume anticoagulation given recent RLE DVT Eliquis has been restarted #Moderate aortic stenosis #Chronic Heart failure with preserved ejection fraction ECHO 11/2023 with EF 55-59%, follows cards op Pt appears euvolemic, continue home meds Denies any cardiac symptoms #CAD Status post CABG 1995 On Plavix and statin and beta-liliana continue toprol #Paroxysmal atrial fibrillation #Sick sinus syndrome status post pacemaker continue toprol and eliquis Heart rate is controlled #Peripheral vascular disease #History of TIA secondary to bilateral carotid stenosis status post right CEA 02/2018 and left CEA 05/2018 -continue Plavix and statin -Pt has been on plavix during recent hospitalization; however per pharmacy review pt has not filled the medication at [facility] is quite some time, will need a refill of this medication at discharge #RLE swelling #Recent DVT of right lower extremity -Occurred after he stopped Eliquis for a port replacement LLE -Currently on Eliquis -continues with RLE swelling but pt feels improved -Swelling of the right leg is improving Persistence of right leg swelling and was advised to keep it elevated over the pillow while sleeping #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 #Status post total laryngectomy right neck dissection, subtotal -Currently On Keytruda and chemotherapy; last session 08/09 -Monitor for mucous plugging of tracheal stoma - will advised to keep appointment with oncologist as an outpatient #thyroidectomy, acquired hypothyroidism elevated TSH and nl fT4 in a.m. continue Synthroid, repeat TFT in 6 weeks. #Dysphagia #Protein reji malnutrition reports needing some softer diet, noting issues with certain pills Speech consult for dysphagia eval and optimizing diet pmo business analyst consult DVT PPX eliquis Full code Dispo: PT/OT, CM to assist w/ dc plan. can dc to rehab. Patient's daughter and were updated over the phone 08/27, answered all the questions. He is being accepted to SNF and will be discharged tomorrow Admission and Anticipated Discharge Date Admission Date: August 25, 2024 Subjective 08/31/2024 The patient was seen and examined in medical telemetry unit He has been generally weak but denies any other significant symptoms Denies any cough and/or shortness of breath Has had physical therapy and recommended rehab 09/01/2024 The patient was seen and examined in medical telemetry unit He has been stable without any symptoms Awaiting placement and likely to be discharged tomorrow Review of Systems Review of Systems: All systems reviewed and are unremarkable except as noted below Physical Exam Physical Exam: Lying in bed without any acute distress Constitutional: + ill appearing and average body habitus Eyes: PERRL, conjunctivae normal, anicteric sclerae ENMT: external ear and nose normal, oropharynx normal Neck: trachea midline, no thyromegaly Respiratory: no respiratory distress Auscultation: lungs clear to auscultation bilaterally Cardiovascular: Rate/Rhythm: regular rate and regular rhythm; not tachycardic Heart Sounds: normal S1, normal S2 and + murmur Extremities: no edema Gastrointestinal (Abdomen): Inspection/Auscultation: normal bowel sounds; abdomen not distended Percussion/Palpation: abdomen soft; abdomen nontender Neurologic: normal touch/pain/proprioception and moves all extremities; no focal motor deficits Lymphatic: no cervical or axillary lymphadenopathy Results & Data Results & Data Vital Signs (Past 12 Hours) Vital Signs Temp Pulse Pulse Resp BP Pulse Ox O2 Del Method 09/01/24 11:32 36.8 C 67 24 123/56 L 91 Room Air 09/01/24 10:12 Room Air 09/01/24 08:03 36.7 C 74 20 136/58 L 94 Room Air 09/01/24 07:03 78 09/01/24 03:42 37 C 83 18 138/53 L 92 Trach Collar Medications Administered Current Inpatient Medications Acetaminophen (Acetaminophen 325 Mg Tab) 650 mg PO Q4H PRN PRN Reason: Pain or Fever Stop: 09/24/24 14:54 Apixaban (Apixaban 5 Mg Tablet) 5 mg PO [facility] Stop: 09/24/24 20:59 Last Admin: 09/01/24 08:24 Dose: 5 mg Clopidogrel Bisulfate (Clopidogrel Bisulfate 75 Mg Tab) 75 mg PO DAILY [facility]UNG Stop: 09/30/24 08:59 Last Admin: 09/01/24 08:24 Dose: 75 mg Cyclobenzaprine HCl (Cyclobenzaprine Hcl 10 Mg Tab) 5 mg PO TID PRN PRN Reason: muscle spasm Stop: 09/24/24 15:06 Diphenoxylate HCl/Atropine (Diphenoxylate/Atropine 2.5/0.025mg Tab) 1 tab PO QID PRN PRN Reason: Diarrhea Stop: 09/24/24 14:54 Famotidine (Famotidine 20 Mg Tab) 20 mg PO DAILY PRN PRN Reason: Heartburn Stop: 09/24/24 14:54 Heparin Sodium (Porcine) (Heparin 100 Unit/Ml 5ml Flush) 5 ml FLUSH PRN PRN PRN Reason: Flush Stop: 09/25/24 05:30 Last Admin: 08/30/24 14:10 Dose: 5 ml Cefepime HCl (Maxipime 2000mg) 2,000 mg in 20 mls @ 5 mls/min IV Q8H [facility]; Protocol Stop: 09/01/24 21:59 Last Admin: 09/01/24 05:21 Dose: 5 mls/min Heparin Sodium/Dextrose (Heparin 93226 Unit/500 Ml D5w) 25,000 units in 500 mls @ 29 mls/hr IV .[id number] [facility]; Protocol Stop: 09/26/24 08:14 Last Titration: 09/01/24 06:19 Dose: Infused Lactobacillus Acidophilus (Advanced Probiotic 625 Mg Capsule) 1,250 mg PO DAILY HUNG Stop: 09/26/24 08:59 Last Admin: 09/01/24 08:24 Dose: Not Given Levothyroxine Sodium (Levothyroxine Sodium 125 Mcg Tablet) 125 mcg PO DAILYBB HUNG Stop: 09/25/24 06:29 Last Admin: 09/01/24 05:21 Dose: 125 mcg Melatonin (Melatonin 3 Mg Tab) 6 mg PO HS PRN PRN Reason: Sleep Stop: 09/24/24 20:59 Last Admin: 08/29/24 21:18 Dose: 6 mg Metoprolol Succinate (Metoprolol Succ 25mg Ext Rel Tab) 12.5 mg PO DAILY HUNG Stop: 09/26/24 08:59 Last Admin: 09/01/24 08:24 Dose: 12.5 mg Metronidazole (Metronidazole 500 Mg Tab) 500 mg PO Q8H [facility]UNG Stop: 09/06/24 13:59 Mirtazapine (Mirtazapine Tab 15 Mg Tab) 15 mg PO HS HUNG Stop: 09/24/24 20:59 Last Admin: 08/31/24 21:21 Dose: 15 mg Olanzapine (Olanzapine 2.5 Mg Tab) 2.5 mg PO HS HUNG Stop: 09/24/24 20:59 Last Admin: 08/31/24 21:21 Dose: 2.5 mg Ondansetron HCl (Ondansetron Inj 2 Mg/Ml 2 Ml Vial) 4 mg IV Q6H PRN PRN Reason: Nausea Stop: 09/24/24 14:54 Pantoprazole Sodium (Pantoprazole 40 Mg Tab) 40 mg PO DAILY HUNG Stop: 09/25/24 08:59 Last Admin: 09/01/24 08:24 Dose: 40 mg Polyethylene Glycol (Polyethylene (Miralax) 17 Gm Pack) 17 gm PO DAILY PRN PRN Reason: Constipation Stop: 09/24/24 14:54 (6) Deep vein thrombosis (DVT) of right lower extremity Affected thrombotic vein of extremity: femoral Chronicity: acute Qualified Code(s): I82.411 - Acute embolism and thrombosis of right femoral vein
[2024-09-01] MEDS: metroNIDAZOLE 500 MG TAB PO SCH (14:46)
[2024-09-02 07:59] VITALS: BP 127/62; RESP 16; TEMP 97.5; O2SAT 95
--- NOTE | 2024-09-02 10:35 | Hospitalist Progress Note ---
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 #RLL Pneumonia #Generalized weakness CXR on admission shows interval development of R sided PNA Recent sputum culture + pseudomonas c.w IV Cefepime 08/25 and flagyl 08/25; follow admitting bl cx --> No growth 48 hours. Suctioning prn PT/OT - pt wants to go to rehab Plan 7 d atb therapy. Has been feeling much better without any respiratory symptoms Antibiotic will be done tomorrow Denies any cough, shortness of breath or wheezing Likely discharge tomorrow and antibiotic course will be done by tomorrow Denies any symptoms and antibiotic course will be finished today He will be discharged to [facility] this afternoon #Chronic Diarrhea pt with chronic diarrhea in setting of on going immunotherapies s/p steroid tapers, completed most recently 08/19 Reports better than baseline now. #Chronic Normocytic Anemia recent admission has + hemocult stool, requiring 1 unit PRBC on 08/19, Flex sig done on 08/18 that did not show any polyp or bleeding Hgb at presentation 9.6, on 08/26 was 8 which is about his baseline 08/26 later afternoon pt noted to have bright red in stool per RN --> eliquis was held, GI consulted. GI evaled, likely bleed from anal fissure. d/w GI 08/27, will resume anticoagulation given recent RLE DVT Eliquis has been restarted #Moderate aortic stenosis #Chronic Heart failure with preserved ejection fraction ECHO 11/2023 with EF 55-59%, follows cards op Pt appears euvolemic, continue home meds Denies any cardiac symptoms #CAD Status post CABG 1995 On Plavix and statin and beta-liliana continue toprol #Paroxysmal atrial fibrillation #Sick sinus syndrome status post pacemaker continue toprol and eliquis Heart rate is controlled #Peripheral vascular disease #History of TIA secondary to bilateral carotid stenosis status post right CEA 02/2018 and left CEA 05/2018 -continue Plavix and statin -Pt has been on plavix during recent hospitalization; however per pharmacy review pt has not filled the [facility] at [facility] quite some time, will need a refill of this medication at discharge Denies any pain, numbness or tingling in the extremities #RLE swelling #Recent DVT of right lower extremity -Occurred after he stopped Eliquis for a port replacement LLE -Currently on Eliquis -continues with RLE swelling but pt feels improved -Swelling of the right leg is improving Persistence of right leg swelling and was advised to keep it elevated over the pillow while sleeping Right lower extremity swelling has improved and was advised to keep it elevated while lying down and when possible #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 #Status post total laryngectomy right neck dissection, subtotal -Currently On Keytruda and chemotherapy; last session 08/09 -Monitor for mucous plugging of tracheal stoma - will advised to keep appointment with oncologist as an outpatient #thyroidectomy, acquired hypothyroidism elevated TSH and nl fT4 in a.m. continue Synthroid, repeat TFT in 6 weeks. #Dysphagia #Protein reji malnutrition reports needing some softer diet, noting issues with certain pills Speech consult for dysphagia eval and optimizing diet podiatric foot and ankle specialist consult DVT PPX eliquis Full code Dispo: PT/OT, CM to assist w/ dc plan. can dc to rehab. Patient's daughter and were updated over the phone 08/27, answered all the questions. He will be discharged to [facility] this afternoon Admission and Anticipated Discharge Date Admission Date: August 25, 2024 Subjective 08/31/2024 The patient was seen and examined in medical telemetry unit He has been generally weak but denies any other significant symptoms Denies any cough and/or shortness of breath Has had physical therapy and recommended rehab 09/01/2024 The patient was seen and examined in medical telemetry unit He has been stable without any symptoms Awaiting placement and likely to be discharged tomorrow 09/02/2024 The patient was seen and examined in medical telemetry unit He remains stable and denies any significant symptoms He will be discharged to [facility] this afternoon Review of Systems Review of Systems: All systems reviewed and are unremarkable except as noted below Physical Exam Physical Exam: Lying in bed without any acute distress Constitutional: + ill appearing and average body habitus Eyes: PERRL, conjunctivae normal, anicteric sclerae ENMT: external ear and nose normal, oropharynx normal Neck: trachea midline, no thyromegaly Respiratory: no respiratory distress Auscultation: lungs clear to auscultation bilaterally Cardiovascular: Rate/Rhythm: regular rate and regular rhythm; not tachycardic Heart Sounds: normal S1, normal S2 and + murmur Extremities: no edema Gastrointestinal (Abdomen): Inspection/Auscultation: normal bowel sounds; abdomen not distended Percussion/Palpation: abdomen soft; abdomen nontender Neurologic: normal touch/pain/proprioception and moves all extremities; no focal motor deficits Lymphatic: no cervical or axillary lymphadenopathy Results & Data Results & Data Vital Signs (Past 12 Hours) Vital Signs Temp Pulse Pulse Resp BP Pulse Ox O2 Del Method 09/02/24 10:16 Trach Collar 09/02/24 07:58 36.4 C L 77 16 127/62 95 Room Air, Trach Collar 09/02/24 05:39 75 09/02/24 02:56 36.6 C 81 18 137/51 L 91 Room Air Medications Administered Current Inpatient Medications Acetaminophen (Acetaminophen 325 Mg Tab) 650 mg PO Q4H PRN PRN Reason: Pain or Fever Stop: 09/24/24 14:54 Apixaban (Apixaban 5 Mg Tablet) 5 mg PO AMHS [facility] Stop: 09/24/24 20:59 Last Admin: 09/02/24 08:41 Dose: 5 mg Clopidogrel Bisulfate (Clopidogrel Bisulfate 75 Mg Tab) 75 mg PO DAILY HUNG Stop: 09/30/24 08:59 Last Admin: 09/02/24 08:42 Dose: 75 mg Cyclobenzaprine HCl (Cyclobenzaprine Hcl 10 Mg Tab) 5 mg PO TID PRN PRN Reason: muscle spasm Stop: 09/24/24 15:06 Diphenoxylate HCl/Atropine (Diphenoxylate/Atropine 2.5/0.025mg Tab) 1 tab PO QID PRN PRN Reason: Diarrhea Stop: 09/24/24 14:54 Famotidine (Famotidine 20 Mg Tab) 20 mg PO DAILY PRN PRN Reason: Heartburn Stop: 09/24/24 14:54 Heparin Sodium (Porcine) (Heparin 100 Unit/Ml 5ml Flush) 5 ml FLUSH PRN PRN PRN Reason: Flush Stop: 09/25/24 05:30 Last Admin: 08/30/24 14:10 Dose: 5 ml Heparin Sodium/Dextrose (Heparin 13349 Unit/500 Ml D5w) 25,000 units in 500 mls @ 29 mls/hr IV .[id number] [facility]; Protocol Stop: 09/26/24 08:14 Last Titration: 09/01/24 06:19 Dose: Infused Lactobacillus Acidophilus (Advanced Probiotic 625 Mg Capsule) 1,250 mg PO DAILY HUNG Stop: 09/26/24 08:59 Last Admin: 09/02/24 08:42 Dose: 1,250 mg Levothyroxine Sodium (Levothyroxine Sodium 125 Mcg Tablet) 125 mcg PO DAILYBB [facility]UGN Stop: 09/25/24 06:29 Last Admin: 09/02/24 06:20 Dose: 125 mcg Melatonin (Melatonin 3 Mg Tab) 6 mg PO HS PRN PRN Reason: Sleep Stop: 09/24/24 20:59 Last Admin: 08/29/24 21:18 Dose: 6 mg Metoprolol Succinate (Metoprolol Succ 25mg Ext Rel Tab) 12.5 mg PO DAILY HUNG Stop: 09/26/24 08:59 Last Admin: 09/02/24 08:41 Dose: 12.5 mg Metronidazole (Metronidazole 500 Mg Tab) 500 mg PO Q8H [facility] Stop: 09/06/24 13:59 Last Admin: 09/02/24 06:20 Dose: Not Given Mirtazapine (Mirtazapine Tab 15 Mg Tab) 15 mg PO HS [facility] Stop: 09/24/24 20:59 Last Admin: 09/01/24 20:28 Dose: 15 mg Olanzapine (Olanzapine 2.5 Mg Tab) 2.5 mg PO HS [facility] Stop: 09/24/24 20:59 Last Admin: 09/01/24 20:28 Dose: 2.5 mg Ondansetron HCl (Ondansetron Inj 2 Mg/Ml 2 Ml Vial) 4 mg IV Q6H PRN PRN Reason: Nausea Stop: 09/24/24 14:54 Pantoprazole Sodium (Pantoprazole 40 Mg Tab) 40 mg PO DAILY HUNG Stop: 09/25/24 08:59 Last Admin: 09/02/24 08:41 Dose: 40 mg Polyethylene Glycol (Polyethylene (Miralax) 17 Gm Pack) 17 gm PO DAILY PRN PRN Reason: Constipation Stop: 09/24/24 14:54 (6) Deep vein thrombosis (DVT) of right lower extremity Affected thrombotic vein of extremity: femoral Chronicity: acute Qualified Code(s): I82.411 - Acute embolism and thrombosis of right femoral vein
[2024-09-02 10:49] VITALS: PULSE 77
--- NOTE | 2024-09-03 09:28 | Discharge Summary ---
Date of Service September 03, 2024 Admission HPI Per Admitting Provider Mr. 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 Recent admissions [facility] 07/24- for right lower leg swelling +dvt, saw heme/onc who he sees for metastatic cancer, felt likely when stopped Eliquis for left leg port. [facility] 08/05-08/07/24 for diarrhea and hypotension [facility] 08/13-08/22 Sepsis 2/2 PNA, neutropenia s/p neupogen, weakness Pt was just discharged from the hospital 2-3 days ago. Since returning home he has been increasingly week. Last night he fell out of bed on to his Right elbow. He has a skin tear to the R arm, but otherwise no injuries. Therapy came to the house today and per his, "blood pressure was low." Due to his weakness and low blood pressure they recommended he come to the ED. Pt reports feeling generalized weakness, malaise, poor appetite and feels he needs rehab. He has been drinking liquids, but not much solid food. He denies f/c/s, chest pain, sob, n/v/abd pain. He has his trach stoma in place. He does not wear his passey karol valve much. He states he has been taking his medications. is uncertain what all he is taking. In ED pt remains hemodynamically stable. CXR concerning for worsening RLL PNA. He was started on IV cefepime. Admission Exam Per Admitting Provider Physical Exam: Constitutional: elderly, chronically ill male, vitals as above, NAD, sitting up in bed, pleasant, conversing easily Head: Normocephalic, Atraumatic Eyes: PERRL, conjunctivae normal, anicteric sclerae ENMT: external ear and nose normal, oropharynx dry Neck: +trach stoma, no surrounding erythema, normal visual inspection Respiratory: normal respiratory effort, lungs clear to auscultation + Rhonchi RLL, no wheeze, rales. Normal insp/exp effort, no accessory muscle use Cardiovascular: RRR, no murmur,RLE edema ++, no erythema, warmth or discoloration, b/l palpable +2 pedal pulse Vessels: no JVD or carotid bruit Chest: normal inspection of chest Abdomen: normal bowel sounds, soft, nontender, no hepatosplenomegaly Musculoskeletal: no cyanosis or clubbing, AROM x 4 Skin: no rashes, warm and dry normal turgor Neurologic: no face palsy, no dysarthria CN's II-XI intact bilaterally and moves all extremities Psychiatric: A+Ox3, euthymic affect Lymphatic: no cervical or axillary lymphadenopathy : deferred Principal Diagnosis Right lower lobe pneumonia,Generalized weakness, moderate aortic stenosis, paroxysmal atrial fibrillation, metastatic squamous cell cancer of the head and neck status post laryngectomy Discharge Exam Lying in bed without any acute distress Constitutional + ill appearing and average body habitus Eyes PERRL, conjunctivae normal, anicteric sclerae ENMT external ear and nose normal, oropharynx normal Neck trachea midline, no thyromegaly Respiratory no respiratory distress Auscultation: lungs clear to auscultation bilaterally Cardiovascular Rate/Rhythm: regular rate and regular rhythm; not tachycardic Heart Sounds: normal S1, normal S2 and + murmur Extremities: no edema Gastrointestinal (Abdomen) Inspection/Auscultation: normal bowel sounds; abdomen not distended Percussion/Palpation: abdomen soft; abdomen nontender Neurologic normal touch/pain/proprioception and moves all extremities; no focal motor deficits Lymphatic no cervical or axillary lymphadenopathy Discharge Data Allergies Allergy/AdvReac Type Severity Reaction Status Date / Time rosuvastatin [From Crestor] Allergy Unknown HAPPENED A Verified 08/13/24 15:17 LONG TIME AGO. 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 #RLL Pneumonia #Generalized weakness CXR on admission shows interval development of R sided PNA Recent sputum culture + pseudomonas c.w IV Cefepime 08/25 and flagyl 08/25; follow admitting bl cx --> No growth 48 hours. Suctioning prn PT/OT - pt wants to go to rehab Plan 7 d atb therapy. Has been feeling much better without any respiratory symptoms Antibiotic will be done tomorrow Denies any cough, shortness of breath or wheezing Likely discharge tomorrow and antibiotic course will be done by tomorrow Denies any symptoms and antibiotic course will be finished today He will be discharged to [facility] this afternoon #Chronic Diarrhea pt with chronic diarrhea in setting of on going immunotherapies s/p steroid tapers, completed most recently 08/19 Reports better than baseline now. #Chronic Normocytic Anemia recent admission has + hemocult stool, requiring 1 unit PRBC on 08/19, Flex sig done on 08/18 that did not show any polyp or bleeding Hgb at presentation 9.6, on 08/26 was 8 which is about his baseline 08/26 later afternoon pt noted to have bright red in stool per RN --> eliquis was held, GI consulted. GI evaled, likely bleed from anal fissure. d/w GI 08/27, will resume anticoagulation given recent RLE DVT Eliquis has been restarted #Moderate aortic stenosis #Chronic Heart failure with preserved ejection fraction ECHO 11/2023 with EF 55-59%, follows cards op Pt appears euvolemic, continue home meds Denies any cardiac symptoms #CAD Status post CABG 1995 On Plavix and statin and beta-liliana continue toprol #Paroxysmal atrial fibrillation #Sick sinus syndrome status post pacemaker continue toprol and eliquis Heart rate is controlled #Peripheral vascular disease #History of TIA secondary to bilateral carotid stenosis status post right CEA 02/2018 and left CEA 05/2018 -continue Plavix and statin -Pt has been on plavix during recent hospitalization; however per pharmacy review pt has not filled the medication at [facility] is quite some time, will need a refill of this medication at discharge Denies any pain, numbness or tingling in the extremities #RLE swelling #Recent DVT of right lower extremity -Occurred after he stopped Eliquis for a port replacement LLE -Currently on Eliquis -continues with RLE swelling but pt feels improved -Swelling of the right leg is improving Persistence of right leg swelling and was advised to keep it elevated over the pillow while sleeping Right lower extremity swelling has improved and was advised to keep it elevated while lying down and when possible #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 #Status post total laryngectomy right neck dissection, subtotal -Currently On Keytruda and chemotherapy; last session 08/09 -Monitor for mucous plugging of tracheal stoma - will advised to keep appointment with oncologist as an outpatient #thyroidectomy, acquired hypothyroidism elevated TSH and nl fT4 in a.m. continue Synthroid, repeat TFT in 6 weeks. #Dysphagia #Protein reji malnutrition reports needing some softer diet, noting issues with certain pills Speech consult for dysphagia eval and optimizing diet expanding machine operator consult DVT PPX eliquis Full code Dispo: PT/OT, CM to assist w/ dc plan. can dc to rehab. Patient's daughter and were updated over the phone 08/27, answered all the questions. He will be discharged to [facility] this afternoon Total Time Total Time Spent Total Time Spent (In Minutes): 35 minutes Discharge Plan Discharge Items Patient Disposition: [facility] Reason For Visit: PNA, AMBULATORY DYSFUNCTION Discharge Diagnosis: Right lower lobe pneumonia,Generalized weakness, moderate aortic stenosis, paroxysmal atrial fibrillation, metastatic squamous cell cancer of the head and neck status post laryngectomy Condition on Discharge: Fair Activity: Resume your previous activity Non-emergency contact: Primary Care Provider Call non-emergency contact if: you have any medication questions and your symptoms worsen Follow-up/Referrals: Neto Rasheed MD [Primary Care Provider] - (Please make an appointment with the PCP within 7 days following discharge from the facility) Aleida Monroy MD [Physician] - (09/14/24: Port draw at 7:45AM, Dr. Monroy at 8:00 AM, and infusion at 8:30 AM. 09/15/24: Fuliphila Injection at 1:15 PM) Diet: Heart Healthy Diet Texture: Dental soft (bite-sized) Addtl Attending Provider Instructions: Please take extreme precaution to avoid falls Take your medications as advised Continue with physical therapy Try to keep your right leg elevated while in bed Please keep appointments with your healthcare providers Pending Studies at Discharge: No Stand-Alone Forms: My [facility] Skilled Items Patient informed of condition?: Yes DNR: No Discharge Level of Care: Skilled Communicable Disease: No Discharge Prognosis: Stable Lines: None Urinary Catheter: No Medications and DC Order Prescriptions: Continued levothyroxine 125 mcg tablet 125 mcg PO DAILYBB nitroglycerin 0.4 mg tablet, sublingual 1 tab Sublingual UD PRN (Reason: Chest Pain) Patient Comments: Never had to use Eliquis 5 mg tablet 5 mg PO [facility]HS cyclobenzaprine 10 mg Tablet 5 mg PO TID PRN (Reason: muscle spasm) Qty: 30 0RF olanzapine 2.5 mg tablet 2.5 mg PO HS diphenoxylate-atropine 2.5-0.025 mg tablet 1 tab PO QID PRN (Reason: Diarrhea) pantoprazole 40 mg Tablet,Delayed Release (Dr/Ec) 40 mg PO DAILY mirtazapine 15 mg Tablet 15 mg PO HS clopidogrel 75 mg tablet 75 mg PO DAILY Rx Instructions: Last filled 08/2023. is unsure if pt still taking but getting from different pharmacy. Original Directions: 75mg by mouth daily metoprolol succinate 25 mg tablet extended release 24 hr 25 mg PO DAILY Rx Instructions: Last filled 09/2023. is unsure if pt still taking but getting from different pharmacy. Original Directions: 25mg by mouth daily Discharge Orders: Discharge Order (Routine); Ordered 09/02/24 Ordered By: Nino Joseph/Other Patient Handouts: What Is Pneumonia?, Preventing Pneumonia, Exercises to Prevent Falls Admission Data Admit Date/Time: 08/25/24 13:06 Attending Provider: Nino Lai Admit Provider: Leonardo Cruz Primary Care Provider: Neto Rasheed Other Providers: Leonardo Cruz; Shree Sheridan I; [place]; [place],Jose C [facility] [place]; Kerline Castellanos; [facility] Other Interventions: Discharge Summary Assessment (RN) Last Done: 09/02/24 12:20
== END 2024-09-02 12:25 | DRG 194 ==
LOC: ED 11:24 → 2N 13:06 → SUATTDRO 13:06 → 2N 14:51

== ENCOUNTER 2024-09-10 11:21 | Inpatient (IN) ==
--- NOTE | 2024-09-10 11:43 | Emergency Department Note ---
Impression & Plan Leukocytosis ADMISSION ED Provider Note HPI: History obtained from patient. 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 Patient is currently at [facility]. Patient notes that he has had urinary retention and constipation for 2 days. He denies any abdominal pain. On arrival here to the ED the patient is hemodynamically stable, he is afebrile, he is saturating well on room air on arrival. ROS: - Per HPI Differential Diagnosis: Urinary tract infection, kidney stone, prostatitis, proctitis, constipation, small bowel obstruction, cellulitis/sacral ulcer, sepsis, amongst other potential pathologies. *Outpatient medications and allergy history reviewed. PE: General: Alert, frail-appearing HEENT: Normocephalic, trachea midline, tracheostomy midline without any purulent drainage or surrounding erythema Eyes: Extraocular eye movement is intact, no scleral erythema Pulmonary: Clear to auscultation bilaterally, no wheezing Cardio: Regular rate and rhythm GI: Abdomen is soft to palpation : No suprapubic tenderness MSK: No evidence of trauma or malformation of the extremities, no edema Skin: There is a superficial excoriated appearing sacral ulcer, rectum appears excoriated with stool in the rectal vault without any identifiable hemorrhoid, no purulent drainage or fluctuant mass identified, otherwise no evidence of rash Neuro: Alert, no focal deficits Psychiatric: Cooperative 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 Bladder scan was performed given the patient's complaint of urinary retention with greater than 800 cc noted on bladder scan. Theodore catheter was therefore placed with significant drainage also greater than 800 cc. Lab work shows a leukocytosis of 19.82 that is new in comparison to lab work just 2 days ago. Hemoglobin is 8.5 which appears to be stable/near baseline for the patient. CMP does not show any evidence of any critical findings. Urinalysis shows no evidence of infection. CT imaging of the abdomen pelvis was obtained, right basilar bronchopneumonia is noted on CT imaging of the abdomen pelvis, there is also constipation with stercoral proctitis that appears stable from previous imaging. On my reassessment the patient states he is feeling improved following the placement of Theodore catheter. He is noted to have excoriated/open skin over the sacrum without any evidence of exposed subcutaneous fatty tissue or bone. This could potentially be a source for his leukocytosis as well as pneumonia. Patient had previously been treated for right-sided pneumonia during his last inpatient stay, he denies that he is having any acute worsening of respiratory symptoms or cough. Patient will be treated with IV antibiotics including vancomycin and cefepime. Blood cultures were drawn in the ED. I suspect that the patient's constipation is likely secondary to urinary retention at this point. I discussed admission with the patient and he is in agreement. Case was then discussed with the on-call hospitalist, Dr. Berry, and the patient was placed for admission in stable condition for further care. Consultants/Discussions held with other healthcare providers: - Hospitalist, Dr. Berry Disposition discussion held by myself with: - Patient Diagnosis: 1. Sacral ulcer with surrounding cellulitis, acute 2. Leukocytosis, acute 3. Right lower lobe pneumonia, subacute 4. Urinary retention, acute 5. Constipation, acute Disposition: Admission Wilman Birmingham DO Emergency Medicine Past Med/Surg History Problem List (Updated 09/10/24 @ 14:30 by Se Berry MD) Urinary retention Leukocytosis (Acute) Rectal bleeding Weakness (Acute) Pneumonia (Acute) Counseling regarding goals of care Advance directive discussed with patient Palliative care by specialist Rectal pain Demand ischemia of myocardium Acute on chronic anemia Community acquired pneumonia Acute hypoxic respiratory failure Severe sepsis with acute organ dysfunction Current chronic use of systemic steroids Immunosuppressed due to chemotherapy Hematochezia Hypocalcemia (Acute) Elevated brain natriuretic peptide (BNP) level (Acute) Leukocytosis (Acute) Elevated troponin (Acute) Elevated lactic acid level (Acute) Nausea & vomiting (Acute) Acute dyspnea (Acute) Sepsis (Acute) Diarrhea (Acute) Elevated troponin (Acute) Generalized weakness (Acute) 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 Iron deficiency anemia (HFpEF) heart failure with preserved ejection fraction History of atrial fibrillation (Acute) Right leg swelling (Acute) Deep vein thrombosis (DVT) of right lower extremity (Acute) S/P vascular surgery Pressure ulcer, buttock Mucus plugging of bronchi (Acute) Mucus plug in respiratory tract (Acute) Leukocytosis (Acute) Depression Hypothyroidism (acquired) History of coronary artery disease History of atrial fibrillation Respiratory distress PVD (peripheral vascular disease) Abnormal computed tomography of abdomen and pelvis GI bleed Syncope Melena (Acute) Hematemesis (Acute) Elevated troponin (Acute) Elevated troponin 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) Anemia (Acute) Tracheostomy in place (Acute) Leukocytosis (Acute) Laryngeal cancer (Acute) Cellulitis (Acute) 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 (Acute) Severe sepsis Bacteremia due to Enterococcus (Acute) Sepsis Aspiration pneumonia (Acute) Aspiration pneumonia (Acute) Acute dyspnea (Acute) History of laryngectomy Aspiration pneumonia Multifocal pneumonia (Acute) Tracheostomy in place (Acute) Tracheobronchitis Hypoxia (Acute) SSS (sick sinus syndrome) (Chronic) History of CVA (cerebrovascular accident) (Chronic) February 2018, no deficits Tracheostomy in place (Acute) COPD (chronic obstructive pulmonary disease) Acute hypoxemic respiratory failure Peripheral eosinophilia Elevated troponin (Acute) Stenosis of left internal carotid artery History of cataract surgery (Chronic) H/O repair of right rotator cuff (Chronic) Anxiety (Chronic) 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 Symptoms were resolving by the time the patient arrived in the ED. 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 on CPAP no longer on CPAP post tracheostomy Surgical History Hx of laryngectomy (~1999) History of bronchoscopy History of tonsillectomy History of carotid endarterectomy RIGHT (MARCH 2018) History of cataract extraction with lens replacement cataract extraction with IOL implant and LRI left eye - 05/02/12 History of colonoscopy with polypectomy History of rotator cuff surgery Right - 2009 History of coronary artery bypass graft X2 VESSEL 1995 -- [facility] Family History Mother Essential hypertension Stroke Sister Cancer Breast cancer Daughter Cancer Colon cancer Social History Smoking Status: Former smoker Tobacco Type: Cigarettes Age Quit Using Tobacco: 55; packs per day: 2; Second Hand Exposure: No; Do You Dip or Chew Tobacco: No; Hx Alcohol Use: No Hx Substance Use: No Preferred Language: Tanzanian Communication Ability: Impaired Communication Ability Comment: Trach stoma Visual Impairment: No Limitations Hearing Ability: Normal 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 Beliefs That Will Affect Care: None marital status: Current Living Situation: Spouse Current Living Situation Comment: home with spouse current occupational status: retired How many Children do You have: 2 How many Children do You have Comment: Son can help other: Home health nursing twice per week Feels Safe at Home: Yes Diet: regular during the past year weight has: decreased > 10 lbs Physical Activity Frequency: Does not Exercise Assistive Devices: Cane and Walker Allergies Allergies Allergy/AdvReac Type Severity Reaction Status Date / Time rosuvastatin [From Crestor] Allergy Unknown HAPPENED A Verified 08/13/24 15:17 LONG TIME AGO. Home Meds Home Medications Medication Instructions Recorded Confirmed levothyroxine 125 mcg tablet 125 mcg PO DAILYBB 03/25/18 09/10/24 nitroglycerin 0.4 mg sublingual 1 tab sublingual DIRECTED PRN 03/25/18 09/10/24 tablet Chest Pain apixaban 5 mg tablet (Eliquis) 5 mg PO AMHS 09/13/21 09/10/24 olanzapine 2.5 mg tablet 2.5 mg PO HS 07/24/24 09/10/24 diphenoxylate-atropine 2.5 1 tab PO QID PRN Diarrhea 08/05/24 09/10/24 mg-0.025 mg tablet mirtazapine 15 mg tablet 15 mg PO HS 08/05/24 09/10/24 pantoprazole 40 mg tablet,delayed 40 mg PO DAILY 08/05/24 09/10/24 release clopidogrel 75 mg tablet 75 mg PO DAILY 08/25/24 09/10/24 metoprolol succinate 25 mg 25 mg PO DAILY 08/25/24 09/10/24 tablet,extended release 24 hr acetaminophen 325 mg tablet 650 mg PO Q6H PRN Fever/Pain 09/10/24 09/10/24 (Tylenol) bisacodyl 10 mg rectal suppository 10 mg OH DAILY PRN Constipation 09/10/24 09/10/24 (Dulcolax (bisacodyl)) cyclobenzaprine 5 mg tablet 5 mg PO Q8H PRN Muscle Spasms 09/10/24 09/10/24 magnesium hydroxide 400 mg/5 mL 2,400 mg PO DAILY PRN Constipation 09/10/24 09/10/24 oral suspension (Milk of Magnesia) menthol 0.44 %-zinc oxide 20.6 % 1 applic topical TID Wound Care 09/10/24 09/10/24 topical ointment sodium phosphates 19 gram-7 118 ml OH DAILY PRN Constipation 09/10/24 09/10/24 gram/118 mL enema (Fleet Enema) Results & Data (ED) Vital Signs Vital Signs - 24 hr 09/10/24 11:26 09/10/24 11:31 09/10/24 11:39 Temperature 36.8 C Temperature Source Oral Pulse Rate 90 91 H 91 H Pulse Rate [Apical] Pulse Rate from SpO2 Sensor 91 H Respiratory Rate 18 31 H Respiratory Effort / Characteristics Non-Labored Spontaneous Respiratory Depth Normal Respiratory Pattern Regular Blood Pressure 136/65 Blood Pressure [Right Arm] Blood Pressure Mean 88 Blood Pressure Mean [Right Arm] Blood Pressure Position Lying Blood Pressure Position [Right Arm] Pulse Oximetry 96 97 Oxygen Delivery Method Room Air Sepsis Recent Fever Within 48 Hours No Sepsis New/Unexplained Change in Mental Status No Sepsis Action Taken by Nursing No Action Required 09/10/24 11:42 09/10/24 12:00 09/10/24 12:06 Temperature Temperature Source Pulse Rate 95 H 84 Pulse Rate [Apical] Pulse Rate from SpO2 Sensor 85 Respiratory Rate 28 H 23 Respiratory Effort / Characteristics Respiratory Depth Respiratory Pattern Blood Pressure 135/68 Blood Pressure [Right Arm] Blood Pressure Mean 99 Blood Pressure Mean [Right Arm] Blood Pressure Position Blood Pressure Position [Right Arm] Pulse Oximetry 98 95 Oxygen Delivery Method Room Air Sepsis Recent Fever Within 48 Hours Sepsis New/Unexplained Change in Mental Status Sepsis Action Taken by Nursing 09/10/24 12:33 09/10/24 13:09 09/10/24 13:12 Temperature Temperature Source Pulse Rate 80 77 Pulse Rate [Apical] Pulse Rate from SpO2 Sensor 79 77 Respiratory Rate 28 H 24 Respiratory Effort / Characteristics Respiratory Depth Respiratory Pattern Blood Pressure 133/59 L Blood Pressure [Right Arm] Blood Pressure Mean 96 Blood Pressure Mean [Right Arm] Blood Pressure Position Blood Pressure Position [Right Arm] Pulse Oximetry 98 99 Oxygen Delivery Method Sepsis Recent Fever Within 48 Hours Sepsis New/Unexplained Change in Mental Status Sepsis Action Taken by Nursing 09/10/24 13:30 09/10/24 14:00 Temperature Temperature Source Pulse Rate 77 Pulse Rate [Apical] 72 Pulse Rate from SpO2 Sensor Respiratory Rate 20 23 Respiratory Effort / Characteristics Non-Labored Spontaneous Respiratory Depth Normal Respiratory Pattern Regular Blood Pressure Blood Pressure [Right Arm] 123/51 L Blood Pressure Mean Blood Pressure Mean [Right Arm] 75 Blood Pressure Position Blood Pressure Position [Right Arm] Lying Pulse Oximetry 99 Oxygen Delivery Method Room Air Sepsis Recent Fever Within 48 Hours Sepsis New/Unexplained Change in Mental Status Sepsis Action Taken by Nursing Laboratory Data 09/10/24 12:43 09/10/24 12:43 Lab Results 09/10/24 09/10/24 Range/Units 12:21 12:43 WBC 19.82 H (4.8-10.8) K/ul RBC 3.00 L (4.70-6.10) M/uL Hgb 8.5 L (14.0-18.0) g/dl Hct 26.8 L (42.0-52.0) % MCV 89.3 (80.0-100.0) fL MCH 28.3 (25.0-34.0) pg MCHC 31.7 L (32.0-36.0) g/dL RDW Std Deviation 55.3 H (36.4-46.3) fL RDW Coeff of Sharda 17.2 H (11.5-14.5) % Plt Count 420 H (130-400) K/uL MPV 8.2 L (9.4-12.4) fL Immature Gran % (Auto) 1.0 % Neut % (Auto) 89.6 % Lymph % (Auto) 3.2 % [place] % (Auto) 5.8 % Eos % (Auto) 0.1 % Baso % (Auto) 0.3 % Neut # (Auto) 17.77 H (1.40-6.50) K/uL Lymph # (Auto) 0.63 L (1.20-3.40) K/uL [place] # (Auto) 1.15 H (0.11-0.59) K/uL Eos # (Auto) 0.02 (0.00-0.50) K/uL Baso # (Auto) 0.06 (0.00-0.20) K/uL Immature Gran # (Auto) 0.19 (0.01-0.20) K/uL Sodium 133 L (136-145) mmol/L Potassium 4.7 (3.5-5.1) mmol/L Chloride 98 (98-107) mmol/L Carbon Dioxide 26 (21-32) mmol/L Anion Gap 9 (3-11) BUN 18 (6-23) mg/dl Creatinine 0.72 (0.6-1.4) mg/dl Est Cr Clr Drug Dosing 79.6 ml/min eGFR 89.53 BUN/Creatinine Ratio 25.0 H (10-20) Glucose 111 H (70-99(Fasting)) mg/dl Calcium 9.1 (8.6-10.3) mg/dl Total Bilirubin 0.5 (0.2-1.0) mg/dl AST 20 (13-39) U/L ALT 22 (7-52) U/L Alkaline Phosphatase 92 (34-104) U/L Total Protein 6.8 (6.0-8.3) gm/dl Albumin 2.6 L (3.4-5.0) gm/dl Globulin 4.2 H (2.5-4.0) gm/dl Albumin/Globulin Ratio 0.6 L (0.9-2) Lipase 4 L (11-82) U/L Urine Color Yellow Urine Appearance Clear (Clear) Urine pH 8.0 H (4.5-7.5) Ur Specific [place] 1.015 (1.000-1.030) Urine Protein 1+ H (Negative) Urine Glucose (UA) Negative (Negative) Urine Ketones Negative (Negative) Urine Blood Negative (Negative) Urine Nitrite Negative (Negative) Urine Bilirubin Negative (Negative) Urine Urobilinogen Negative (Negative) Ur Leukocyte Esterase Negative (Negative) Urine WBC (Auto) 0-5 (0-5) /hpf Urine RBC (Auto) 0-2 (0-2) /hpf U Hyaline Cast (Auto) 0-2 (0-2) /lpf U Epithel Cells (Auto) 0-2 (0-2) /hpf Urine Bacteria (Auto) None Seen (None Seen) Urine Comment Administered Medications Discontinued Medications Sodium Chloride (Nss) 500 mls @ 999 mls/hr IV .Q31M ONE Stop: 09/10/24 12:09 Last Admin: 09/10/24 13:14 Dose: 999 mls/hr Documented By: MMN Imaging Data Radiologist's Impression: Abdomen/Pelvis CT 09/10/24 11:[address] WITHOUT CONTRAST CT DOSE: 1287.84 mGy.cm HISTORY: Acute pelvic pain with constipation . History of head and neck carcinoma. History of right inguinal disease. Rectal pain, constipation, urinary retention TECHNIQUE: Multiaxial CT images of the abdomen and pelvis were performed without contrast. A dose lowering technique was utilized adhering to the principles of ALARA. COMPARISON STUDY: CT 08/06/2024, PET CT 06/08/2024. FINDINGS: Partially imaged a leads. Prior median sternotomy. Small right pleural effusion. Patchy reticular nodular right basilar opacities are new from prior. No pneumatosis or pneumoperitoneum. The unenhanced spleen, pancreas and adrenal glands are unchanged and within normal limits. Cholelithiasis without CT evidence of acute cholecystitis. Unremarkable liver. Complex and simple cysts of the kidneys appear stable. Bilateral renal vascular calcifications. No hydronephrosis. Decompressed urinary bladder with Theodore catheter in place. Atherosclerosis of the aorta. Left femoral catheter distal tip terminates within the infrarenal IVC. An IVC filter also noted. Disease within the right lower anterior abdominal wall and right tissues. Right lower anterior abdominal wall mass on image 217 measures 7.5 x 5.4 cm, previously 7.0 x 5.1 cm. A focus right inguinal disease on image 306 measures 5.3 x 5.6 cm, also similar to prior. Subcutaneous edema surrounds the right hip lesions. Moderate-sized hiatal hernia. No small bowel obstruction. Extensive rectosigmoid fecal retention redemonstrated which is similar to prior with rectal wall thickening and perirectal stranding. No acute fracture identified. Spondylitic spurring of the spine. IMPRESSION: 1. Small right pleural effusion with right basilar bronchopneumonia. 2. Constipation with stercoral proctitis redemonstrated, generally unchanged from the prior study. 3. No bowel obstruction or pneumoperitoneum. 4. Cholelithiasis. 5. The right iliac, inguinal and lower right abdominal wall metastatic implants appear generally stable. ACT 112: Negative or not required by law. The above report was generated using voice recognition software. It may contain grammatical, syntax or spelling errors. Electronically signed by: Andrew Siddiqui M.D. 09/10/2024 12:59 PM Discharge Plan Visit Data Chief Complaint: Constipation Stated Complaint: CONSTPATION ED Provider: Wilman Birmingham Discharge Problem: Leukocytosis Patient Disposition: Admitted As Inpatient Condition: Fair Forms Stand Alone Forms: My [facility] Prescriptions Prescriptions: No Action levothyroxine 125 mcg tablet 125 mcg PO DAILYBB nitroglycerin 0.4 mg tablet, sublingual 1 tab Sublingual DIRECTED PRN (Reason: Chest Pain) Patient Comments: Never had to use Eliquis 5 mg tablet 5 mg PO AMHS olanzapine 2.5 mg tablet 2.5 mg PO HS diphenoxylate-atropine 2.5-0.025 mg tablet 1 tab PO QID PRN (Reason: Diarrhea) pantoprazole 40 mg Tablet,Delayed Release (Dr/Ec) 40 mg PO DAILY mirtazapine 15 mg Tablet 15 mg PO HS clopidogrel 75 mg tablet 75 mg PO DAILY metoprolol succinate 25 mg tablet extended release 24 hr 25 mg PO DAILY acetaminophen [Tylenol] 325 mg Tablet 650 mg PO Q6H PRN (Reason: Fever/Pain) magnesium hydroxide [Milk of Magnesia] 400 mg/5 mL Suspension 2,400 mg PO DAILY PRN (Reason: Constipation) Rx Instructions: Give 30ml by mouth as needed for constipation after no BM for three days admin MOM on 73 shift bisacodyl [Dulcolax (bisacodyl)] 10 mg Suppository 10 mg OH DAILY PRN (Reason: Constipation) Rx Instructions: Insert 1 unit rectally as needed for constipation give suppository day 3; shift if no BM after MOM Fleet Enema 19-7 gram/118 mL Enema 118 ml OH DAILY PRN (Reason: Constipation) Rx Instructions: Insert 1 unit rectally as needed for constipation if no BM after dulcolax admin fleets on 10-27 shift, day four. cyclobenzaprine 5 mg Tablet 5 mg PO Q8H PRN (Reason: Muscle Spasms) menthol-zinc oxide 0.44-20.6 % Ointment 1 applic TOPICAL TID Rx Instructions: Apply to buttocks topically every shift for wound care Referrals Referrals: Neto Rasheed MD [Primary Care Provider] -
[2024-09-10 12:31] LABS: Appearance Urine Clear (Clear); Bacteria Urine Automated None Seen (None Seen); Bilirubin Urine Negative (Negative); Blood Urine Negative (Negative); Cast Urine Automated 0-2 /lpf (0-2); Color Urine Yellow; Epithelial Cell Urine Auto 0-2 /hpf (0-2); Glucose Urine UA Negative (Negative); Ketones Urine Negative (Negative); Leukocyte Esterase Urine Negative (Negative); Nitrite Urine Negative (Negative); Protein Urine 1+ (Negative); RBC Urine Automated 0-2 /hpf (0-2); Specific Gravity Urine 1.015 (1.000-1.030); Urobilinogen Urine Negative (Negative); WBC Urine Automated 0-5 /hpf (0-5)
[2024-09-10 13:00] LABS: Basophils # (auto) 0.06 K/uL (0.00-0.20); Basophils % (auto) 0.3 %; Eosinophils # (auto) 0.02 K/uL (0.00-0.50); Eosinophils % (auto) 0.1 %; Hematocrit (blood only) 26.8 % (42.0-52.0); Hemoglobin 8.5 g/dl (14.0-18.0); Immature Granulocytes # (auto) 0.19 K/uL (0.01-0.20); Lymphocytes # (auto) 0.63 K/uL (1.20-3.40); Lymphocytes % (auto) 3.2 %; Mean Corpuscular Hemoglobin 28.3 pg (25.0-34.0); Mean Corpuscular Hgb Conc 31.7 g/dL (32.0-36.0); Mean Corpuscular Volume 89.3 fL (80.0-100.0); Mean Platelet Volume 8.2 fL (9.4-12.4); Monocytes # (auto) 1.15 K/uL (0.11-0.59); Monocytes % (auto) 5.8 %; Neutrophils # (auto) 17.77 K/uL (1.40-6.50); Neutrophils % (auto) 89.6 %; Platelet Count 420 K/uL (130-400); RDW Coefficient of Variation 17.2 % (11.5-14.5); RDW Standard Deviation 55.3 fL (36.4-46.3); White Blood Count 19.82 K/ul (4.8-10.8)
--- NOTE | 2024-09-10 13:01 | CT Scan Report ---
ABDOMEN AND PELVIS CT WITHOUT CONTRAST CT DOSE: 1287.84 mGy.cm HISTORY: Acute pelvic pain with constipation . History of head and neck carcinoma. History of right i nguinal disease. Rectal pain, constipation, urinary retention TECHNIQUE: Multiaxial CT images of the abdomen and pelvis were performed without contrast. A dose lo wering technique was utilized adhering to the principles of ALARA. COMPARISON STUDY: CT 08/06/2024, PET CT 06/08/2024. FINDINGS: Partially imaged a leads. Prior median sternotomy. Small right pleural effusion. Patchy ret icular nodular right basilar opacities are new from prior. No pneumatosis or pneumoperitoneum. The un enhanced spleen, pancreas and adrenal glands are unchanged and within normal limits. Cholelithiasis w ithout CT evidence of acute cholecystitis. Unremarkable liver. Complex and simple cysts of the kidney s appear stable. Bilateral renal vascular calcifications. No hydronephrosis. Decompressed urinary rach dder with Theodore catheter in place. Atherosclerosis of the aorta. Left femoral catheter distal tip ter minates within the infrarenal IVC. An IVC filter also noted. Disease within the right lower anterior abdominal wall and right tissues. Right lower anterior abdominal wall mass on image 217 measures 7.5 x 5.4 cm, previously 7.0 x 5.1 cm. A focus right inguinal disease on image 306 measures 5.3 x 5.6 cm, also similar to prior. Subcutaneous edema surrounds the right hip lesions. Moderate-sized hiatal hernia. No small bowel obstruction. Extensive rectosigmoid fecal retention rede monstrated which is similar to prior with rectal wall thickening and perirectal stranding. No acute f racture identified. Spondylitic spurring of the spine. IMPRESSION: 1. Small right pleural effusion with right basilar bronchopneumonia. 2. Constipation with stercoral proctitis redemonstrated, generally unchanged from the prior study. 3. No bowel obstruction or pneumoperitoneum. 4. Cholelithiasis. 5. The right iliac, inguinal and lower right abdominal wall metastatic implants appear generally stab le. ACT 112: Negative or not required by law. The above report was generated using voice recognition software. It may contain grammatical, syntax o r spelling errors. Electronically signed by: Andrew Siddiqui M.D. 09/10/2024 12:59 PM
[2024-09-10 13:18] LABS: Albumin Globulin Ratio 0.6 (0.9-2); Albumin Level 2.6 gm/dl (3.4-5.0); Bilirubin,Total 0.5 mg/dl (0.2-1.0); Calcium 9.1 mg/dl (8.6-10.3); Creatinine Clr Calc Pharmacy 79.6 ml/min; Globulin 4.2 gm/dl (2.5-4.0); Potassium 4.7 mmol/L (3.5-5.1); Total Protein 6.8 gm/dl (6.0-8.3)
--- NOTE | 2024-09-10 14:44 | History & Physical Report ---
Date of Service September 10, 2024 Assessment & Plan (1) Leukocytosis: (2) Urinary retention: Plan #Urinary retention of unclear etiology #Constipation likely 2/2 above vs. 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, now without the ability to speak #Subtotal thyroidectomy s/p radiation on Keytruda -nutrition consult, consider parenteral feeding for lack of appropriate nutrition -aspiration precautions #JAIME -cpap prn #Hypothyroidism, HLD, COPD #CAD s/p CABG, SSS s/p PPM #PAF, TIA s/p CEA, htn, AF #HFpEF, GERD, JOHNSON, CHRISTIE, MDD -home meds #Normoctic anemia likely 2/2 chronic dx -monitor Gentle IVF, nutrition consult, diet ordered in accordance to facility No DVT ppx is on therapeutic a/c History of Present Illness Primary Care Provider: Neto Rasheed MD 84M hypothyroidism, HLD, COPD, JAIME, laryngeal ca s/p laryngectomy and neck dissection now without the ability to speak, subtotal thyroidectomy s/p radiation on Keytruda, CAD s/p CABG, SSS s/p dual-chamber PPM, PAF, TIA s/p CEA, htn, non rheumatic AF, HFpEF, GERD, JOHNSON, CHRISTIE, MDD who presents to the ED with low back pain, urinary retention and constipation. Of note patient recently seen on our service for CAP, for which symptoms have largely resolved. Patient was inpatient at a nursing facility until today at which time he was discharged. Is accompanied by who helps with history and also is able to write and mouth words. States that for the last 2d has been unable to urinate or defecate, also with pain on the top of his gluteal cleft which is his only complaint now that the evans is in. No other complaints including fever, chills. In the ED was noted to have non purulent wound over the sacrum which did not appear to be infectious or with exposed bone. Patient's wound was bandaged by the ED before my evaluation and utilizing joint decision making we did not remove the bandage as it was painful to the patient. Allergies Allergy/AdvReac Type Severity Reaction Status Date / Time rosuvastatin [From Crestor] Allergy Unknown HAPPENED A Verified 08/13/24 15:17 LONG TIME AGO. Home Medications Medication Instructions Recorded Confirmed Type levothyroxine 125 mcg tablet 125 mcg PO DAILYBB 03/25/18 09/10/24 History nitroglycerin 0.4 mg sublingual 1 tab sublingual DIRECTED PRN 03/25/18 09/10/24 History tablet Chest Pain apixaban 5 mg tablet (Eliquis) 5 mg PO AMHS 09/13/21 09/10/24 History olanzapine 2.5 mg tablet 2.5 mg PO HS 07/24/24 09/10/24 History diphenoxylate-atropine 2.5 1 tab PO QID PRN Diarrhea 08/05/24 09/10/24 History mg-0.025 mg tablet mirtazapine 15 mg tablet 15 mg PO HS 08/05/24 09/10/24 History pantoprazole 40 mg tablet,delayed 40 mg PO DAILY 08/05/24 09/10/24 History release clopidogrel 75 mg tablet 75 mg PO DAILY 08/25/24 09/10/24 History metoprolol succinate 25 mg 25 mg PO DAILY 08/25/24 09/10/24 History tablet,extended release 24 hr acetaminophen 325 mg tablet 650 mg PO Q6H PRN Fever/Pain 09/10/24 09/10/24 History (Tylenol) bisacodyl 10 mg rectal suppository 10 mg ID DAILY PRN Constipation 09/10/2408/25 History (Dulcolax (bisacodyl)) cyclobenzaprine 5 mg tablet 5 mg PO Q8H PRN Muscle Spasms 09/10/24 09/10/24 History magnesium hydroxide 400 mg/5 mL 2,400 mg PO DAILY PRN Constipation 09/10/24 09/10/24 History oral suspension (Milk of Magnesia) menthol 0.44 %-zinc oxide 20.6 % 1 applic topical TID Wound Care 09/10/24 09/10/24 History topical ointment sodium phosphates 19 gram-7 118 ml ID DAILY PRN Constipation 09/10/24 09/10/24 History gram/118 mL enema (Fleet Enema) Past Med/Surg History Problem List (Updated 09/10/24 @ 14:30 by Se Berry MD) Urinary retention Leukocytosis (Acute) Rectal bleeding Weakness (Acute) Pneumonia (Acute) Counseling regarding goals of care Advance directive discussed with patient Palliative care by specialist Rectal pain Demand ischemia of myocardium Acute on chronic anemia Community acquired pneumonia Acute hypoxic respiratory failure Severe sepsis with acute organ dysfunction Current chronic use of systemic steroids Immunosuppressed due to chemotherapy Hematochezia Hypocalcemia (Acute) Elevated brain natriuretic peptide (BNP) level (Acute) Leukocytosis (Acute) Elevated troponin (Acute) Elevated lactic acid level (Acute) Nausea & vomiting (Acute) Acute dyspnea (Acute) Sepsis (Acute) Diarrhea (Acute) Elevated troponin (Acute) Generalized weakness (Acute) 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 Iron deficiency anemia (HFpEF) heart failure with preserved ejection fraction History of atrial fibrillation (Acute) Right leg swelling (Acute) Deep vein thrombosis (DVT) of right lower extremity (Acute) S/P vascular surgery Pressure ulcer, buttock Mucus plugging of bronchi (Acute) Mucus plug in respiratory tract (Acute) Leukocytosis (Acute) Depression Hypothyroidism (acquired) History of coronary artery disease History of atrial fibrillation Respiratory distress PVD (peripheral vascular disease) Abnormal computed tomography of abdomen and pelvis GI bleed Syncope Melena (Acute) Hematemesis (Acute) Elevated troponin (Acute) Elevated troponin 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) Anemia (Acute) Tracheostomy in place (Acute) Leukocytosis (Acute) Laryngeal cancer (Acute) Cellulitis (Acute) 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 (Acute) Severe sepsis Bacteremia due to Enterococcus (Acute) Sepsis Aspiration pneumonia (Acute) Aspiration pneumonia (Acute) Acute dyspnea (Acute) History of laryngectomy Aspiration pneumonia Multifocal pneumonia (Acute) Tracheostomy in place (Acute) Tracheobronchitis Hypoxia (Acute) SSS (sick sinus syndrome) (Chronic) History of CVA (cerebrovascular accident) (Chronic) February 2018, no deficits Tracheostomy in place (Acute) COPD (chronic obstructive pulmonary disease) Acute hypoxemic respiratory failure Peripheral eosinophilia Elevated troponin (Acute) Stenosis of left internal carotid artery History of cataract surgery (Chronic) H/O repair of right rotator cuff (Chronic) Anxiety (Chronic) 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 Symptoms were resolving by the time the patient arrived in the ED. 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 on CPAP no longer on CPAP post tracheostomy Surgical History Hx of laryngectomy (~1999) History of bronchoscopy History of tonsillectomy History of carotid endarterectomy RIGHT (MARCH 2018) History of cataract extraction with lens replacement cataract extraction with IOL implant and LRI left eye - 05/02/12 History of colonoscopy with polypectomy History of rotator cuff surgery Right - 2009 History of coronary artery bypass graft X2 VESSEL 1995 -- S KLEMME Family History Mother Essential hypertension Stroke Sister Cancer Breast cancer Daughter Cancer Colon cancer Social History Smoking Status: Former smoker Tobacco Type: Cigarettes Age Quit Using Tobacco: 55; packs per day: 2; Second Hand Exposure: No; Do You Dip or Chew Tobacco: No; Hx Alcohol Use: No Hx Substance Use: No Preferred Language: [place] Communication Ability: Impaired Communication Ability Comment: Trach stoma Visual Impairment: No Limitations Hearing Ability: Normal 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 Beliefs That Will Affect Care: None marital status: Current Living Situation: Spouse Current Living Situation Comment: home with spouse current occupational status: retired How many Children do You have: 2 How many Children do You have Comment: Son can help other: Home health nursing twice per week Feels Safe at Home: Yes Diet: regular during the past year weight has: decreased > 10 lbs Physical Activity Frequency: Does not Exercise Assistive Devices: Cane and Walker Review of Systems Constitutional: no fever and no chills Respiratory: no cough and no chest congestion Gastrointestinal: + constipation Genitourinary: + difficulty urinating Musculoskeletal: + back pain Physical Exam Constitutional: WD/WN, vitals as above Respiratory: normal respiratory effort, lungs clear to auscultation Cardiovascular: RRR, no murmur, no edema Gastrointestinal (Abdomen): normal bowel sounds, soft, nontender, no hepatosplenomegaly Skin: pain on palpation of the wound over the superior gluteal cleft Results & Data Results & Data Vital Signs (Past 12 Hours) Vital Signs Temp Pulse Pulse Resp BP BP Pulse Ox 09/10/24 14:00 72 23 123/51 L 99 09/10/24 13:30 77 20 09/10/24 13:12 133/59 L 09/10/24 13:09 77 24 99 09/10/24 12:33 80 28 H 98 09/10/24 12:06 84 23 95 09/10/24 12:00 135/68 09/10/24 11:42 95 H 28 H 98 09/10/24 11:39 91 H 31 H 97 09/10/24 11:31 36.8 C 91 H 18 136/65 96 09/10/24 11:26 90 O2 Del Method 09/10/24 14:00 Room Air 09/10/24 13:30 09/10/24 13:12 09/10/24 13:09 09/10/24 12:33 09/10/24 12:06 09/10/24 12:00 09/10/24 11:42 Room Air 09/10/24 11:39 09/10/24 11:31 Room Air 09/10/24 11:26 Laboratory Results Abnormal lab results 09/10/24 09/10/24 Range/Units 12:21 12:43 WBC 19.82 H (4.8-10.8) K/ul RBC 3.00 L (4.70-6.10) M/uL Hgb 8.5 L (14.0-18.0) g/dl Hct 26.8 L (42.0-52.0) % MCHC 31.7 L (32.0-36.0) g/dL RDW Std Deviation 55.3 H (36.4-46.3) fL RDW Coeff of Sharda 17.2 H (11.5-14.5) % Plt Count 420 H (130-400) K/uL MPV 8.2 L (9.4-12.4) fL Neut # (Auto) 17.77 H (1.40-6.50) K/uL Lymph # (Auto) 0.63 L (1.20-3.40) K/uL Hernando # (Auto) 1.15 H (0.11-0.59) K/uL Sodium 133 L (136-145) mmol/L BUN/Creatinine Ratio 25.0 H (10-20) Glucose 111 H (70-99(Fasting)) mg/dl Albumin 2.6 L (3.4-5.0) gm/dl Globulin 4.2 H (2.5-4.0) gm/dl Albumin/Globulin Ratio 0.6 L (0.9-2) Lipase 4 L (11-82) U/L Urine pH 8.0 H (4.5-7.5) Urine Protein 1+ H (Negative) Diagnostic Findings Abdomen/Pelvis CT 09/10/24 11:[address] WITHOUT CONTRAST CT DOSE: 1287.84 mGy.cm HISTORY: Acute pelvic pain with constipation . History of head and neck carcinoma. History of right inguinal disease. Rectal pain, constipation, urinary retention TECHNIQUE: Multiaxial CT images of the abdomen and pelvis were performed without contrast. A dose lowering technique was utilized adhering to the principles of ALARA. COMPARISON STUDY: CT 08/06/2024, PET CT 06/08/2024. FINDINGS: Partially imaged a leads. Prior median sternotomy. Small right pleural effusion. Patchy reticular nodular right basilar opacities are new from prior. No pneumatosis or pneumoperitoneum. The unenhanced spleen, pancreas and adrenal glands are unchanged and within normal limits. Cholelithiasis without CT evidence of acute cholecystitis. Unremarkable liver. Complex and simple cysts of the kidneys appear stable. Bilateral renal vascular calcifications. No hyd ronephrosis. Decompressed urinary bladder with Evans catheter in place. Atherosclerosis of the aorta. Left femoral catheter distal tip terminates within the infrarenal IVC. An IVC filter also noted. Disease within the right lower anterior abdominal wall and right tissues. Right lower anterior abdominal wall mass on image 217 measures 7.5 x 5.4 cm, previously 7.0 x 5.1 cm. A focus right inguinal disease on image 306 measures 5.3 x 5.6 cm, also similar to prior. Subcutaneous edema surrounds the right hip lesions. Moderate-sized hiatal hernia. No small bowel obstruction. Extensive rectosigmoid fecal retention redemonstrated which is similar to prior with rectal wall thickening and perirectal stranding. No acute fracture identified. Spondylitic spurring of the spine. IMPRESSION: 1. Small right pleural effusion with right basilar bronchopneumonia. 2. Constipation with stercoral proctitis redemonstrated, generally unchanged from the prior study. 3. No bowel obstruction or pneumoperitoneum. 4. Cholelithiasis. 5. The right iliac, inguinal and lower right abdominal wall metastatic implants appear generally stable. ACT 112: Negative or not required by law. The above report was generated using voice recognition software. It may contain grammatical, syntax or spelling errors. Electronically signed by: Andrew Siddiqui M.D. 09/10/2024 12:59 PM Code Status & VTE Plan VTE Prophylaxis Plan VTE Prophylaxis will be ordered: No
--- NOTE | 2024-09-10 14:52 | XRay Report ---
Chest radiograph, one view History: Weakness Comparison: 08/25/2024 Findings/impression: Single AP view of the chest performed. There is some very minimal nodular density at the right lower lobe, likely residual from the pneumonia seen on 08/25/2024, possibly representing scar/atelectasis with some residual infection not entirely excluded. Cardiomediastinal silhouette is within normal limits. Left chest wall dual-lead AICD. Median sternotomy wires in place. No pneumothorax. Electronically signed by Reginaldo Mckeon 09-10-2024 2:52 PM
--- NOTE | 2024-09-10 15:19 | Pharmacy Report ---
Pharmacy PK ABX Note - Date of Service September 10, 2024 - Assessment and Plan Assessment 84 year old M receiving empiric vancomycin/cefepime. Pertinent microbiologic data includes: Blood cultures pending. Recent antibiotic use for CAP-cefepime and flagyl. WBC 19.8 Day #1 of antibiotics Plan Vancomycin * Loading dose: 1500 mg IV x 1 * Maintenance dose: 1000 mg IV every 12 hours * Regimen is predicted to achieve target AUC/AURORA of 400-600 mg/L.hr * Random level to be ordered if continued >48 hours Pharmacy will continue to follow and will adjust dose/frequency as necessary. Thank you. Pharmacy has transitioned to AUC monitoring for vancomycin. AUC/AURORA is the preferred PK/PD target and is associated with decreased risk of nephrotoxicity compared to traditional trough targets.
[2024-09-11 06:12] LABS: Basophils # (auto) 0.06 K/uL (0.00-0.20); Basophils % (auto) 0.4 %; Eosinophils # (auto) 0.05 K/uL (0.00-0.50); Eosinophils % (auto) 0.3 %; Hematocrit (blood only) 22.8 % (42.0-52.0); Hemoglobin 7.4 g/dl (14.0-18.0); Immature Granulocytes # (auto) 0.09 K/uL (0.01-0.20); Immature Granulocytes % (auto) 0.6 %; Lymphocytes # (auto) 0.61 K/uL (1.20-3.40); Lymphocytes % (auto) 3.8 %; Mean Corpuscular Hemoglobin 28.6 pg (25.0-34.0); Mean Corpuscular Hgb Conc 32.5 g/dL (32.0-36.0); Mean Platelet Volume 8.5 fL (9.4-12.4); Monocytes # (auto) 1.03 K/uL (0.11-0.59); Monocytes % (auto) 6.5 %; Neutrophils # (auto) 14.03 K/uL (1.40-6.50); Neutrophils % (auto) 88.4 %; Platelet Count 401 K/uL (130-400); RDW Coefficient of Variation 17.4 % (11.5-14.5); RDW Standard Deviation 54.8 fL (36.4-46.3); Red Blood Count 2.59 M/uL (4.70-6.10); White Blood Count 15.87 K/ul (4.8-10.8)
[2024-09-11 06:41] LABS: Ovalocytes 1+
[2024-09-11 08:02] LABS: Albumin Globulin Ratio 0.7 (0.9-2); Albumin Level 2.4 gm/dl (3.4-5.0); BUN Creatinine Ratio 24.6 (10-20); Bilirubin,Total 0.4 mg/dl (0.2-1.0); Calcium 8.3 mg/dl (8.6-10.3); Creatinine Clr Calc Pharmacy 98.4 ml/min; Globulin 3.3 gm/dl (2.5-4.0); Potassium 4.1 mmol/L (3.5-5.1); Total Protein 5.7 gm/dl (6.0-8.3)
--- NOTE | 2024-09-11 11:06 | XRay Report ---
KUB HISTORY: constipation COMPARISON: CT 09/10/2024 FINDINGS: Nonobstructive bowel gas pattern. IVC filter noted at the level of L2-L3. A left femoral ap proach catheter is noted. Small bowel obstruction. No renal calculi. No ureteral calculi. No pneumop eritoneum or pneumatosis. No fracture. IMPRESSION: 1. Nonobstructive bowel gas pattern. 2. Extensive fecal retention. ACT 112: Negative or not required by law. The above report was generated using voice recognition software. It may contain grammatical, syntax o r spelling errors. Electronically signed by: Andrew Siddiqui M.D. 09/11/2024 11:05 AM
--- NOTE | 2024-09-11 12:21 | Hospitalist Progress Note ---
Date of Service September 11, 2024 Assessment & Plan (1) Leukocytosis: (2) Urinary retention: Plan Urinary retention Likely secondary to significant constipation/fecal retention Stercoral colitis secondary to constipation --CT ABD:Constipation with stercoral proctitis redemonstrated, generally unchanged from the prior study. No bowel obstruction or pneumoperitoneum. Cholelithiasis. The right iliac, inguinal and lower right abdominal wall metastatic implants appear generally stable. --Theodore catheter placed in ED --Continue Theodore catheter --Added bowel regimen to help with constipation -- Minimize narcotics as able as likely contributing to fecal retention --Plan for voiding trial prior to discharge --Consider urology evaluation if needed Will check KUB tomorrow Recent pneumonia Imaging showed Small right pleural effusion with right basilar bronchopneumonia Currently denies any respiratory symptoms Monitor Sacral wound Leukocytosis Hypotension No other obvious signs of infection -- cultures pending --Urine culture negative -- Empirically on vancomycin, cefepime Titrate down antibiotics as able per assessment nurse consulted Gentle IV fluids as needed Laryngeal ca s/p laryngectomy and neck dissection, aphasia Subtotal thyroidectomy s/p radiation on Keytruda Dietitian consulted Aspiration precautions JAIME CPAP HS Other chronic conditions: Hypothyroidism, HLD, COPD CAD s/p CABG, SSS s/p PPM PAF, TIA s/p CEA, htn, AF HFpEF, GERD, JOHNSON, CHRISTIE, MDD Continue home medications Chronic Normoctic anemia Monitor CBC DVT Px: Eliquis CODE STATUS Full code Disposition PT OT prior to discharge Admission and Anticipated Discharge Date Admission Date: September 10, 2024 Subjective Patient is seen and examined at bedside Poor historian secondary to aphasia Reports constipation denies any nausea, vomiting, abdominal pain Prefers Theodore catheter removed as soon as possible Catheter draining well with no issues Patient denies any chest pain, cough, dyspnea, dizziness, sacral wound pain Review of Systems Review of Systems: All systems reviewed & are unremarkable except as noted in Subjective Physical Exam Physical Exam: Physical Exam: Vitals signs as noted above General Appearance: Thin, frail, chronic ill-appearing, no apparent distress Head: normocephalic, Atraumatic Eyes: normal inspection, EOMI Neck: supple, Trachea midline,+trach stoma Respiratory/Chest: Normal breath sounds, CTA,+R clavicle deformed, No accessory muscle use Cardiovascular: S1, S2, +murmur Abdomen/GI:Soft, Non tender, Bowel sounds present Extremities/Musculoskeletal:normal inspection, + RLE edema Neurologic/Psych:AAOX3, grossly no focal neurological deficits, +mostly aphasic Skin: normal color, warm,+Gluteal wound Results & Data Results & Data Vital Signs (Past 12 Hours) Vital Signs Temp Pulse Pulse Resp BP Pulse Ox O2 Del Method 09/11/24 11:23 36.6 C 72 19 104/40 L 98 Room Air 09/11/24 10:27 Room Air 09/11/24 09:29 86 09/11/24 07:25 36.7 C 81 19 121/62 95 Room Air 09/11/24 03:20 37 C 85 18 115/62 95 Room Air Laboratory Results Short CBC 09/10/24 09/11/24 Range/Units 12:43 05:47 WBC 19.82 H 15.87 H (4.8-10.8) K/ul Hgb 8.5 L 7.4 L (14.0-18.0) g/dl Hct 26.8 L 22.8 L (42.0-52.0) % Plt Count 420 H 401 H (130-400) K/uL BMP 09/10/24 09/11/24 12:43 05:47 Sodium 133 L 134 L Potassium 4.7 4.1 Chloride 98 103 Carbon Dioxide 26 24 BUN 18 14 Creatinine 0.72 0.57 L Glucose 111 H 82 Calcium 9.1 8.3 L Liver Function 09/10/24 09/11/24 Range/Units 12:43 05:47 Total Bilirubin 0.5 0.4 (0.2-1.0) mg/dl AST 20 15 (13-39) U/L ALT 22 15 (7-52) U/L Alkaline Phosphatase 92 77 (34-104) U/L Albumin 2.6 L 2.4 L (3.4-5.0) gm/dl Urine 09/10/24 Range/Units 12:21 Urine Color Yellow Urine Appearance Clear (Clear) Urine pH 8.0 H (4.5-7.5) Ur Specific [place] 1.015 (1.000-1.030) Urine Protein 1+ H (Negative) Urine Glucose (UA) Negative (Negative)
[2024-09-12 05:24] LABS: Hematocrit (blood only) 20.4 % (42.0-52.0); Hemoglobin 6.6 g/dl (14.0-18.0); Mean Corpuscular Hemoglobin 28.9 pg (25.0-34.0); Mean Corpuscular Hgb Conc 32.4 g/dL (32.0-36.0); Mean Corpuscular Volume 89.5 fL (80.0-100.0); Mean Platelet Volume 8.5 fL (9.4-12.4); Platelet Count 364 K/uL (130-400); RDW Coefficient of Variation 17.7 % (11.5-14.5); RDW Standard Deviation 57.3 fL (36.4-46.3); Red Blood Count 2.28 M/uL (4.70-6.10); White Blood Count 12.27 K/ul (4.8-10.8)
[2024-09-12 05:30] LABS: BUN Creatinine Ratio 26.2 (10-20); Calcium 8.1 mg/dl (8.6-10.3); Creatinine Clr Calc Pharmacy 91.9 ml/min; Potassium 3.9 mmol/L (3.5-5.1)
--- NOTE | 2024-09-12 05:37 | Communication Note ---
Date of Service: September 12, 2024 Notified by RN of a.m. hemoglobin of 6.6 down from 8.5 (09/10) No unusual abdominal pain. Brown stool mixed with blood on patient bed pad. AP Progressive anemia Recurrent LGIB, stercoral colitis on CT Concurrent plavix/NOAC Rx Transfuse PRBC to maintain hemoglobin of at least 8 given history vascular disease Hold plavix/NOAC for now Clear liquid diet GI consult if with progression of bleeding
--- NOTE | 2024-09-12 08:05 | XRay Report ---
EXAM: XR KUB/Abdomen 1 view CLINICAL HISTORY: fecal retention TECHNIQUE: Radiograph of kub/abdomen was acquired. COMPARISON: No FINDINGS: Non-obstructive, non-specific bowel gas pattern. No significant air fluid levels. No evidence of air under diaphragm. No obvious radio opacity overlying kidneys/ureters/urinary bladder. No obvious organomegaly. Bony shadows appear unremarkable. Radiodense shadow of IVC filter noted in right paravertebral region. Left femoral line seen in situ. IMPRESSION: 1. No acute abdominal abnormality. 2. Gaseous and fecal distension of bowel loops, however no evidence of bowel obstruction. Electronically signed by Braeden Warren 09-12-2024 08:01 AM
--- NOTE | 2024-09-12 09:46 | Gastrointestinal Consultation ---
Date of Consultation September 12, 2024 Assessment & Plan (1) Constipation: (2) Rectal bleeding: Plan Patient was disimpacted by bedside by Dr. Ahumada. There does not seem to be any active GI bleeding at this time but can continue to monitor. He may require further disimpaction. - continue with miralax and senna. - continue with protonix 40mg daily. - follow hgb/hct and transfuse as needed. Supervising Physician Co-Signing Physician Notes Consulted in regards to rectal bleeding. Had some blood mixed with brown stool. Review of x-ray showed significant fecal retention probable fecal impaction sterile coral colitis proctitis. Patient had fairly recent flexible sigmoidoscopy without evidence of colitis or neoplasia. Today's rectal examination showed fecal impaction. This was disimpacted and removed at the bedside. There were still hard stool higher up which may require further disimpaction. Patient tolerated reasonably well. There was no blood or clots with the disimpaction suggesting no significant GI bleed at present. Is possible that we will be blood above the fecal impaction continue to observe. Transfuse as needed. Take Protonix. Continue bowel regimen. 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 GI was asked to see due to hemoglobin being 6.6 which was down from 8.5 and reported blood mixed with brown stool on his bed pad. KUB 09/11/24 shown extensive fecal retention. CT 09/10 shown Constipation with stercoral proctitis redemonstrated, generally unchanged from the prior study. Patient offers no GI complaints at this time. flex sig 07/2024 - Preparation of the colon was fair. - Rectal tenderness found on digital rectal exam. - The rectum is grossly normal. Pain may be due to skin excoriation or other factors - No specimens collected. Allergies Allergy/AdvReac Type Severity Reaction Status Date / Time rosuvastatin [From Crestor] Allergy Unknown HAPPENED A Verified 08/13/24 15:17 LONG TIME AGO. Home Medications Medication Instructions Recorded Confirmed Type levothyroxine 125 mcg tablet 125 mcg PO DAILYBB 03/25/18 09/10/24 History nitroglycerin 0.4 mg sublingual 1 tab sublingual DIRECTED PRN 03/25/18 09/10/24 History tablet Chest Pain apixaban 5 mg tablet (Eliquis) 5 mg PO AMHS 09/13/21 09/10/24 History olanzapine 2.5 mg tablet 2.5 mg PO HS 07/24/24 09/10/24 History diphenoxylate-atropine 2.5 1 tab PO QID PRN Diarrhea 08/05/24 09/10/24 History mg-0.025 mg tablet mirtazapine 15 mg tablet 15 mg PO HS 08/05/24 09/10/24 History pantoprazole 40 mg tablet,delayed 40 mg PO DAILY 08/05/24 09/10/24 History release clopidogrel 75 mg tablet 75 mg PO DAILY 08/25/24 09/10/24 History metoprolol succinate 25 mg 25 mg PO DAILY 08/25/24 09/10/24 History tablet,extended release 24 hr acetaminophen 325 mg tablet 650 mg PO Q6H PRN Fever/Pain 09/10/24 09/10/24 History (Tylenol) bisacodyl 10 mg rectal suppository 10 mg OR DAILY PRN Constipation 09/10/24 09/10/24 History (Dulcolax (bisacodyl)) cyclobenzaprine 5 mg tablet 5 mg PO Q8H PRN Muscle Spasms 09/10/24 09/10/24 History magnesium hydroxide 400 mg/5 mL 2,400 mg PO DAILY PRN Constipation 09/10/24 09/10/24 History oral suspension (Milk of Magnesia) menthol 0.44 %-zinc oxide 20.6 % 1 applic topical TID Wound Care 09/10/24 09/10/24 History topical ointment sodium phosphates 19 gram-7 118 ml OR DAILY PRN Constipation 09/10/24 09/10/24 History gram/118 mL enema (Fleet Enema) Patient History Medical History S/P radiation therapy Thyroid disease Back problem Moderate aortic stenosis Acute electrocardiogram changes Difficult airway for intubation H/o glidescope #4 with CEA 03/2018 Carotid artery stenosis with cerebral infarction over 8 weeks ago The patient presented to [facility] ED on 03/26/18 with expressive aphasia, left upper extremity numbness, left lower extremity weakness. Symptoms were resolving by the time the patient arrived in the ED. 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 on CPAP no longer on CPAP post tracheostomy Surgical History Hx of laryngectomy (~1999) History of bronchoscopy History of tonsillectomy History of carotid endarterectomy RIGHT (MARCH 2018) History of cataract extraction with lens replacement cataract extraction with IOL implant and LRI left eye - 05/02/12 History of colonoscopy with polypectomy History of rotator cuff surgery Right - 2009 History of coronary artery bypass graft X2 VESSEL 1995 -- [facility] Family History Mother Essential hypertension Stroke Sister Cancer Breast cancer Daughter Cancer Colon cancer Social History Smoking Status: Former smoker Tobacco Type: Cigarettes Age Quit Using Tobacco: 55; packs per day: 2; Second Hand Exposure: No; Do You Dip or Chew Tobacco: No; Tobacco Cessation Education Requested by Patient: No Hx Alcohol Use: No Hx Substance Use: No Preferred Language: Azeri Communication Ability: Effective Communication Ability Comment: trach stoma. TEP Visual Impairment: No Limitations Hearing Ability: Normal Regional Education Coordinator Required: No Beliefs That Will Affect Care: None marital status: Current Living Situation: Spouse Current Living Situation Comment: home with spouse current occupational status: retired How many Children do You have: 2 How many Children do You have Comment: Son can help Other Information That Helps Us Care for You: No other: Home health nursing twice per week Feels Safe at Home: Yes Safety Concerns: Feels Safe At This Time Diet: regular during the past year weight has: decreased > 10 lbs Physical Activity Frequency: Does not Exercise Assistive Devices: Nebulizer, Walker and Other Review of Systems Review of Systems: All systems reviewed & are unremarkable except as noted in HPI & below Physical Exam Constitutional: WD/WN, vitals as above Respiratory: normal respiratory effort, lungs clear to auscultation Cardiovascular: Rate/Rhythm: regular rate and regular rhythm Gastrointestinal (Abdomen): normal bowel sounds, soft, nontender, no hepatosplenomegaly Dr. Ahumada disimpacted the patient at bedside. Psychiatric: Orientation: alert Affect: euthymic affect Results & Data Vital Signs (Past 12 Hours) Vital Signs Temp Pulse Pulse Resp BP BP Pulse Ox 09/12/24 08:27 98.1 F 75 18 110/56 L 94 09/12/24 00:06 98.8 F 78 20 134/62 95 09/11/24 21:45 81 O2 Del Method 09/12/24 08:27 Room Air 09/12/24 00:06 Room Air 09/11/24 21:45 Coding Level of Care Code 53484 INT INP/OBS CARE 2/55MIN Diagnoses Constipation K59.00 Rectal bleeding K62.5
--- NOTE | 2024-09-12 14:25 | Hospitalist Progress Note ---
Date of Service September 12, 2024 Assessment & Plan (1) Leukocytosis: (2) Urinary retention: Plan Urinary retention Likely secondary to significant constipation/fecal retention Stercoral colitis secondary to constipation --CT ABD:Constipation with stercoral proctitis redemonstrated, generally unchanged from the prior study. No bowel obstruction or pneumoperitoneum. Cholelithiasis. The right iliac, inguinal and lower right abdominal wall metastatic implants appear generally stable. --Theodore catheter placed in ED --Continue Theodore catheter --Added bowel regimen to help with constipation -- Minimize narcotics as able as likely contributing to fecal retention --Plan for voiding trial prior to discharge --Consider urology evaluation if needed Rectal bleeding Likely due to stercoral colitis/proctitis Acute blood loss anemia Recent flexible sigmoidoscopy showed no signs of colitis/neoplasia per GI Held Plavix, Eliquis Appreciate GI help Patient required disimpaction Continue bowel regimen to help with constipation Continue Protonix S/P PRBC today Monitor H&H and transfuse PRBCs as needed Recent pneumonia Imaging showed Small right pleural effusion with right basilar bronchopneumonia Currently denies any respiratory symptoms Monitor Sacral wound Leukocytosis Hypotension No other obvious signs of infection -- cultures pending --Urine culture negative -- Empirically on vancomycin, cefepime Titrate down antibiotics as able hand tacker consulted Gentle IV fluids as needed Laryngeal ca s/p laryngectomy and neck dissection, aphasia Subtotal thyroidectomy s/p radiation on Keytruda Dietitian consulted Aspiration precautions JAIME CPAP HS Other chronic conditions: Hypothyroidism, HLD, COPD CAD s/p CABG, SSS s/p PPM PAF, TIA s/p CEA, htn, AF HFpEF, GERD, JOHNSON, CHRISTIE, MDD Continue home medications as able Acute on chronic chronic Normocytic anemia Management as above DVT Px: Eliquis--held due to rectal bleed SCDs for now CODE STATUS Full code Disposition PT OT prior to discharge Admission and Anticipated Discharge Date Admission Date: September 10, 2024 Subjective Patient is seen and examined at bedside Poor historian secondary to aphasia Patient had rectal bleeding overnight Denies any active bleeding issues this morning Patient required disimpaction to help with fecal retention Offers no other complaints today Patient denies any chest pain, cough, dyspnea, dizziness, abdominal pain Review of Systems Review of Systems: All systems reviewed & are unremarkable except as noted in Subjective Physical Exam Physical Exam: Physical Exam: Vitals signs as noted above General Appearance: Thin, frail, chronic ill-appearing, no apparent distress Head: normocephalic, Atraumatic Eyes: normal inspection, EOMI Neck: supple, Trachea midline,+trach stoma Respiratory/Chest: Normal breath sounds, CTA,+R clavicle deformed, No accessory muscle use Cardiovascular: S1, S2, +murmur Abdomen/GI:Soft, Non tender, Bowel sounds present Extremities/Musculoskeletal:normal inspection, + RLE edema Neurologic/Psych:AAOX3, grossly no focal neurological deficits, +mostly aphasic Skin: normal color, warm,+Gluteal wound Results & Data Results & Data Vital Signs (Past 12 Hours) Vital Signs Temp Pulse Pulse Resp BP BP Pulse Ox 09/12/24 13:52 36.4 C L 66 16 122/60 99 09/12/24 12:52 36.5 C 65 16 136/74 99 09/12/24 12:22 36.4 C L 65 16 112/57 L 97 09/12/24 12:07 37 C 66 16 108/59 L 96 09/12/24 11:57 36.8 C 71 18 110/53 L 98 09/12/24 11:45 37 C 68 16 112/59 L 98 09/12/24 08:27 36.7 C 75 18 110/56 L 94 O2 Del Method 09/12/24 13:52 09/12/24 12:52 09/12/24 12:22 09/12/24 12:07 09/12/24 11:57 Room Air 09/12/24 11:45 09/12/24 08:27 Room Air Laboratory Results Short CBC 09/12/24 Range/Units 04:44 WBC 12.27 H (4.8-10.8) K/ul Hgb 6.6 L* (14.0-18.0) g/dl Hct 20.4 L* (42.0-52.0) % Plt Count 364 (130-400) K/uL BMP 09/12/24 04:44 Sodium 133 L Potassium 3.9 Chloride 104 Carbon Dioxide 23 BUN 16 Creatinine 0.61 Glucose 82 Calcium 8.1 L
--- NOTE | 2024-09-12 14:59 | Pharmacy Report ---
Pharmacy PK ABX Note - Date of Service September 12, 2024 - Assessment and Plan Assessment 09/12/24 * Vanc level obtained this morning, indicating that current regimen is appropriate. * No changes required at this time. 09/10/24 * 84 year old M receiving empiric vancomycin/cefepime. Pertinent microbiologic data includes: Blood cultures pending. Recent antibiotic use for CAP-cefepime and flagyl. WBC 19.8 * Day #1 of antibiotics Plan Vancomycin * Vanc random level: 15.4mcg/mL * Regimen is predicted to achieve target AUC/AURORA of 400-600 mg/L.hr (predicted steady state level: 490 mg/L.hr) * Continue 1000 mg IV every 12 hours * No further levels have been ordered at this time. Will consider evaluating another level in 1-2 days if pt remains hospitalized. Pharmacy will continue to follow and will adjust dose/frequency as necessary. Thank you. Pharmacy has transitioned to AUC monitoring for vancomycin. AUC/AURORA is the preferred PK/PD target and is associated with decreased risk of nephrotoxicity compared to traditional trough targets.
[2024-09-12 19:40] LABS: Hematocrit (blood only) 31.1 % (42.0-52.0)
[2024-09-13 06:52] LABS: Hematocrit (blood only) 26.6 % (42.0-52.0); Hemoglobin 8.8 g/dl (14.0-18.0); Mean Corpuscular Hemoglobin 28.9 pg (25.0-34.0); Mean Corpuscular Hgb Conc 33.1 g/dL (32.0-36.0); Mean Corpuscular Volume 87.5 fL (80.0-100.0); Mean Platelet Volume 8.4 fL (9.4-12.4); Platelet Count 370 K/uL (130-400); RDW Coefficient of Variation 18.2 % (11.5-14.5); Red Blood Count 3.04 M/uL (4.70-6.10)
[2024-09-13 07:19] LABS: BUN Creatinine Ratio 23.1 (10-20); Calcium 8.7 mg/dl (8.6-10.3); Creatinine Clr Calc Pharmacy 86.4 ml/min; Potassium 3.6 mmol/L (3.5-5.1)
--- NOTE | 2024-09-13 10:27 | Gastroenterology Progress Note ---
Date of Service September 13, 2024 Assessment & Plan (1) Constipation: (2) Acute on chronic anemia: Plan No signs of active bleeding, and only small stool last evening. - continue with miralax and senna. - continue with protonix 40mg daily. - follow hgb/hct and transfuse as needed. - Will discuss further with Dr. Ahumada. He may require further disimpaction. Admission and Anticipated Discharge Date Admission Date: September 10, 2024 Supervising Physician Co-Signing Physician Notes Minimal bowel movement since disimpaction yesterday. Rectal examination repeated he had moderate to large amount of hard stool that had progressed from above. Repeat disimpaction undertaken patient very cooperative. He had dropped his hemoglobin there is still no signs of blood from the rectum. Observe. Transfuse if hemoglobin significantly less than 8. Continue PPI. Can increase his MiraLAX to 4 times per day. Will reassess his response to today's disimpaction he may require further based on significant hard stool just beyond the reach of the index finger. Subjective Spoke with nursing, no bowel movements today and no signs of active bleeding at this time. chart lists that he did have a bowel movement last evening that was small and he was incontinent of stool hgb did drop from 10 to 8.8. Patient was asleep. Physical Exam Respiratory: normal respiratory effort. Psychiatric: patient sleeping. Results & Data Results & Data Vital Signs (Past 12 Hours) Vital Signs Temp Pulse Resp BP Pulse Ox O2 Del Method 09/13/24 07:51 99.1 F 74 17 138/64 94 Room Air 09/13/24 03:53 99.3 F 79 18 126/64 93 Room Air 09/12/24 23:31 98.1 F 70 17 144/64 H 96 Room Air Coding Level of Care Code 51065 SUB INP/OBS CARE 05/21MIN Diagnoses Constipation K59.00 Acute on chronic anemia D64.9
--- NOTE | 2024-09-13 14:10 | Hospitalist Progress Note ---
Date of Service September 13, 2024 Assessment & Plan (1) Leukocytosis: (2) Urinary retention: Plan Urinary retention Likely secondary to significant constipation/fecal retention Stercoral colitis secondary to constipation --CT ABD:Constipation with stercoral proctitis redemonstrated, generally unchanged from the prior study. No bowel obstruction or pneumoperitoneum. Cholelithiasis. The right iliac, inguinal and lower right abdominal wall metastatic implants appear generally stable. --Theodore catheter placed in ED --Continue Theodore catheter --Added bowel regimen to help with constipation -- Minimize narcotics as able as likely contributing to fecal retention --Plan for voiding trial prior to discharge --Consider urology evaluation if needed Rectal bleeding Likely due to stercoral colitis/proctitis Acute blood loss anemia Recent flexible sigmoidoscopy showed no signs of colitis/neoplasia per GI Held Plavix, Eliquis Appreciate GI help Patient required disimpaction Continue bowel regimen to help with constipation Continue Protonix S/P 2 units PRBC Monitor H&H and transfuse PRBCs as needed Hb 8.8 today May need more disimpaction per GI Recent pneumonia Imaging showed Small right pleural effusion with right basilar bronchopneumonia Currently denies any respiratory symptoms On empiric antibiotics as below Monitor Sacral wound Leukocytosis Hypotension No other obvious signs of infection -- Blood culture negative to date --Urine culture negative -- Empirically on vancomycin, cefepime Titrate down antibiotics as able abe teacher consulted Gentle IV fluids as needed Laryngeal ca s/p laryngectomy and neck dissection, aphasia Subtotal thyroidectomy s/p radiation on Keytruda Dietitian consulted Aspiration precautions JAIME CPAP HS Other chronic conditions: Hypothyroidism, HLD, COPD CAD s/p CABG, SSS s/p PPM PAF, TIA s/p CEA, htn, AF HFpEF, GERD, JOHNSON, CHRISTIE, MDD Continue home medications as able: Resume Plavix, Eliquis once cleared by GI Acute on chronic chronic Normocytic anemia Management as above DVT Px: Eliquis--held due to rectal bleed SCDs for now CODE STATUS Full code Disposition PT OT prior to discharge Admission and Anticipated Discharge Date Admission Date: September 10, 2024 Subjective Patient is seen and examined at bedside Poor historian secondary to aphasia States having small bowel movement overnight No bowel movement today May require more disimpaction per GI Patient denies any chest pain, cough, dyspnea, dizziness, abdominal pain Patient eager to get discharged Review of Systems Review of Systems: All systems reviewed & are unremarkable except as noted in Subjective Physical Exam Physical Exam: Physical Exam: Vitals signs as noted above General Appearance: Thin, frail, chronic ill-appearing, no apparent distress Head: normocephalic, Atraumatic Eyes: normal inspection, EOMI Neck: supple, Trachea midline,+trach stoma Respiratory/Chest: Normal breath sounds, CTA,+R clavicle deformed, No accessory muscle use Cardiovascular: S1, S2, +murmur Abdomen/GI:Soft, Non tender, Bowel sounds present Extremities/Musculoskeletal:normal inspection, + RLE edema Neurologic/Psych:AAOX3, grossly no focal neurological deficits, +mostly aphasic Skin: normal color, warm,+Gluteal wound Results & Data Results & Data Vital Signs (Past 12 Hours) Vital Signs Temp Pulse Pulse Resp BP BP Pulse Ox 09/13/24 10:43 37.4 C 66 17 112/65 96 09/13/24 07:51 37.3 C 74 17 138/64 94 09/13/24 05:45 74 09/13/24 03:53 37.4 C 79 18 126/64 93 O2 Del Method 09/13/24 10:43 Room Air 09/13/24 07:51 Room Air 09/13/24 05:45 09/13/24 03:53 Room Air Laboratory Results Short CBC 09/12/24 09/13/24 Range/Units 19:08 05:54 WBC 14.40 H (4.8-10.8) K/ul Hgb 10.0 L D 8.8 L (14.0-18.0) g/dl Hct 31.1 L 26.6 L (42.0-52.0) % Plt Count 370 (130-400) K/uL BMP 09/13/24 05:54 Sodium 133 L Potassium 3.6 Chloride 103 Carbon Dioxide 24 BUN 15 Creatinine 0.65 Glucose 82 Calcium 8.7
[2024-09-14 06:32] LABS: Hematocrit (blood only) 26.5 % (42.0-52.0); Hemoglobin 8.8 g/dl (14.0-18.0); Mean Corpuscular Hgb Conc 33.2 g/dL (32.0-36.0); Mean Corpuscular Volume 87.5 fL (80.0-100.0); Mean Platelet Volume 8.6 fL (9.4-12.4); Platelet Count 357 K/uL (130-400); RDW Standard Deviation 56.2 fL (36.4-46.3); Red Blood Count 3.03 M/uL (4.70-6.10); White Blood Count 15.65 K/ul (4.8-10.8)
[2024-09-14 07:02] LABS: BUN Creatinine Ratio 19.7 (10-20); Potassium 3.7 mmol/L (3.5-5.1)
--- NOTE | 2024-09-14 10:34 | Gastroenterology Progress Note ---
Date of Service September 14, 2024 Assessment & Plan (1) Constipation: Plan: - Continue with miralax 17 gm qid at this time. - will monitor how he does with this throughout the day and will reassess this afternoon. Admission and Anticipated Discharge Date Admission Date: September 10, 2024 Supervising Physician Co-Signing Physician Notes Still no spontaneous bowel movements. Rectal examination shows just soft impacted stool in the rectum. No hard fecal balls as previously. The rectal stool was broken up with the digit some stool extracted at this point I think he will start to have spontaneous bowel movements. Continue 4 times a day MiraLAX if no spontaneous bowel movements by tomorrow we could considering adding a laxative such as Linzess or [employer] store. Reviewed with patient and the who was at the bedside Subjective Miralax was increased to QID yesterday. overnight, it was reported in chart that he had diarrhea and was incontinent of stool. pt denies nausea, vomiting, abdominal pain. Physical Exam Respiratory: normal respiratory effort, lungs clear to auscultation Cardiovascular: RRR, no murmur, no edema Gastrointestinal (Abdomen): soft, nontender, normal bowel sounds. Psychiatric: alert Results & Data Results & Data Vital Signs (Past 12 Hours) Vital Signs Temp Pulse Resp BP Pulse Ox O2 Del Method 09/14/24 07:06 98.4 F 71 19 128/61 95 Room Air 09/14/24 04:00 97.3 F L 79 16 133/66 95 Room Air 09/13/24 23:00 100.4 F H 76 18 113/52 L 96 Room Air Coding Level of Care Code 92954 SUB INP/OBS CARE 05/21MIN Diagnoses Constipation K59.00
--- NOTE | 2024-09-14 11:11 | Hospitalist Progress Note ---
Date of Service September 14, 2024 Assessment & Plan (1) Leukocytosis: (2) Urinary retention: Plan Urinary retention Likely secondary to significant constipation/fecal retention Stercoral colitis secondary to constipation --CT ABD:Constipation with stercoral proctitis redemonstrated, generally unchanged from the prior study. No bowel obstruction or pneumoperitoneum. Cholelithiasis. The right iliac, inguinal and lower right abdominal wall metas tatic implants appear generally stable. --Theodore catheter placed in ED --Continue Theodore catheter --Added bowel regimen to help with constipation -- Minimize narcotics as able as likely contributing to fecal retention --Plan for voiding trial prior to discharge --Consider urology evaluation if needed Rectal bleeding Likely due to stercoral colitis/proctitis Acute blood loss anemia Recent flexible sigmoidoscopy showed no signs of colitis/neoplasia per GI Held Plavix, Eliquis Appreciate GI help Patient required disimpaction Continue bowel regimen to help with constipation Continue Protonix S/P 2 units PRBC Monitor H&H and transfuse PRBCs as needed Hb 8.8 today, stable May need more disimpaction per GI Recent pneumonia Imaging showed Small right pleural effusion with right basilar bronchopneumonia Currently denies any respiratory symptoms On empiric antibiotics as below Monitor repeat cxr w/o pna Sacral wound Leukocytosis Hypotension No other obvious signs of infection -- Blood culture negative to date --Urine culture negative -- Empirically on vancomycin, cefepime Titrate down 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 Pt's at the bedside states that pt felt hot when she checked his forehead when visiting him. Temp now rechecked and normal. Per RN temp was documented wrong. Will obtain repeat blood cultx, CXR, UA. switch cefepime to zosyn for poss. 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, aphasia Subtotal thyroidectomy s/p radiation on Keytruda Dietitian consulted Aspiration precautions JAIME CPAP HS Other chronic conditions: Hypothyroidism, HLD, COPD CAD s/p CABG, SSS s/p PPM PAF, TIA s/p CEA, htn, AF HFpEF, GERD, JOHNSON, CHRISTIE, MDD Continue home medications as able: Resume Plavix, Eliquis once cleared by GI Acute on chronic chronic Normocytic anemia Management as above DVT Px: Eliquis--held due to rectal bleed SCDs for now CODE STATUS Full code Disposition PT OT prior to discharge Admission and Anticipated Discharge Date Admission Date: September 10, 2024 Subjective Patient is seen in follow up of urinary retention, constipation required disimpaction by GI also treated for acute blood loss anemia/ GI bleed and required blood transfusion Overnight reported fever 38C also reported diarrhea Hgb stable this AM at 8.8 WBC still elevated , now at 15K This PM - temp recorded 38.8 C - contacted RN and she was not aware of fever. Pt's at the bedside states that pt felt hot when she checked his forehead and visiting him. Temp now rechecked and normal. Per RN temp was documented wrong. Will obtain repeat blood cultx, CXR, UA. switch cefepime to zosyn for poss. anaerobic coverage Patient denies any chest pain, cough, dyspnea, dizziness, abdominal pain Review of Systems Review of Systems: All systems reviewed & are unremarkable except as noted in Subjective Physical Exam Physical Exam: General Appearance: Thin, frail, chronic ill-appearing, no apparent distress Head: normocephalic, Atraumatic Eyes: normal inspection, EOMI Neck: supple, +trach stoma Respiratory/Chest: Normal breath sounds, CTA,+R clavicle deformed, No accessory muscle use Cardiovascular: S1, S2, +murmur Abdomen/GI:Soft, Non tender, Bowel sounds present Extremities/Musculoskeletal:normal inspection, + RLE edema Neurologic/Psych:AAOX3, grossly no focal neurological deficits, +mostly aphasic Skin: normal color, warm,+Gluteal wound Results & Data Results & Data Vital Signs (Past 12 Hours) Vital Signs Temp Pulse Resp BP Pulse Ox O2 Del Method 09/14/24 07:06 36.9 C 71 19 128/61 95 Room Air 09/14/24 04:00 36.3 C L 79 16 133/66 95 Room Air Laboratory Results 09/14/24 Range/Units 05:29 WBC 15.65 H (4.8-10.8) K/ul RBC 3.03 L (4.70-6.10) M/uL Hgb 8.8 L (14.0-18.0) g/dl Hct 26.5 L (42.0-52.0) % MCV 87.5 (80.0-100.0) fL MCH 29.0 (25.0-34.0) pg MCHC 33.2 (32.0-36.0) g/dL RDW Std Deviation 56.2 H (36.4-46.3) fL RDW Coeff of Sharda 18.0 H (11.5-14.5) % Plt Count 357 (130-400) K/uL MPV 8.6 L (9.4-12.4) fL Sodium 133 L (136-145) mmol/L Potassium 3.7 (3.5-5.1) mmol/L Chloride 103 (98-107) mmol/L Carbon Dioxide 23 (21-32) mmol/L Anion Gap 7 (3-11) BUN 12 (6-23) mg/dl Creatinine 0.61 (0.6-1.4) mg/dl Est Cr Clr Drug Dosing 92.0 ml/min eGFR 94.13 BUN/Creatinine Ratio 19.7 (10-20) Glucose 84 (70-99(Fasting)) mg/dl Calcium 9.0 (8.6-10.3) mg/dl Medications Administered Current Inpatient Medications Acetaminophen (Acetaminophen 325 Mg Tab) 650 mg PO Q6H PRN PRN Reason: Fever/Pain Stop: 10/10/24 16:45 Hydrocodone Bitart/Acetaminophen (Hydrocodone/Acetamophen 5/325mg Tab) 1 tab PO Q4H PRN PRN Reason: Moderate Pain (Scale 4, 5, 6) Stop: 09/24/24 14:41 Last Admin: 09/12/24 19:34 Dose: 1 tab Apixaban (Apixaban 5 Mg Tablet) 5 mg PO BID [facility] Stop: 10/10/24 20:59 Last Admin: 09/11/24 20:55 Dose: 5 mg Bisacodyl (Bisacodyl 10 Mg Supp) 10 mg [place] DAILY PRN PRN Reason: Constipation Stop: 10/10/24 16:45 Calamine/Phenol (Menthol-Zinc Oxide 360 Appln/120 Gm Tube) 1 appln EXT TID [facility] Stop: 10/10/24 16:45 Last Admin: 09/14/24 08:48 Dose: 1 appln Clopidogrel Bisulfate (Clopidogrel Bisulfate 75 Mg Tab) 75 mg PO DAILY [facility] Stop: 10/11/24 08:59 Last Admin: 09/11/24 08:30 Dose: 75 mg Cyclobenzaprine HCl (Cyclobenzaprine Hcl 5 Mg Tab) 5 mg PO Q8H PRN PRN Reason: Muscle Spasms Stop: 10/10/24 16:45 Diphenoxylate HCl/Atropine (Diphenoxylate/Atropine 2.5/0.025mg Tab) 1 tab PO QID PRN PRN Reason: Diarrhea Stop: 10/10/24 16:45 Docusate Sodium (Docusate Sodium 100 Mg Cap) 100 mg PO BID [facility] Stop: 10/11/24 08:59 Last Admin: 09/14/24 08:55 Dose: 100 mg Heparin Sodium (Porcine) (Heparin 100 Unit/Ml 5ml Flush) 5 ml FLUSH PRN PRN PRN Reason: Flush Stop: 10/11/24 10:55 Last Admin: 09/13/24 08:44 Dose: 5 ml Cefepime HCl (Maxipime 2000mg) 2,000 mg in 20 mls @ 5 mls/min IV Q8H [facility]; Protocol Stop: 09/15/24 21:59 Last Admin: 09/14/24 05:58 Dose: 5 mls/min Vancomycin HCl (Vancomycin Hcl) 1,000 mg in 270 mls @ 200 mls/hr IV Q12H [facility] Stop: 09/15/24 20:59 Last Infusion: 09/14/24 10:42 Dose: Infused Levothyroxine Sodium (Levothyroxine Sodium 125 Mcg Tablet) 125 mcg PO DAILYBB [facility] Stop: 10/11/24 06:29 Last Admin: 09/14/24 05:58 Dose: 125 mcg Magnesium Hydroxide (Magnesium Hydroxide Susp 30 Ml Udc) 30 ml PO DAILY PRN PRN Reason: Constipation Stop: 10/10/24 16:45 Metoprolol Succinate (Metoprolol Succ 25mg Ext Rel Tab) 25 mg PO DAILY [facility] Stop: 10/11/24 08:59 Last Admin: 09/14/24 08:46 Dose: 25 mg Mirtazapine (Mirtazapine Tab 15 Mg Tab) 15 mg PO HS [facility] Stop: 10/10/24 20:59 Last Admin: 09/13/24 21:10 Dose: 15 mg Miscellaneous Information (Vancomycin Consult Active) 1 each N/A UD PRN PRN Reason: Consult Stop: 10/10/24 13:28 Morphine Sulfate (Morphine Sulfate 2 Mg/Ml Carp) 2 mg IV Q4H PRN PRN Reason: Pain Stop: 09/25/24 22:48 Last Admin: 09/11/24 22:55 Dose: 2 mg Nitroglycerin (Nitroglycerin Sl 0.4 Mg/Tab Tab) 0.4 mg SL UD PRN PRN Reason: Chest Pain Stop: 10/10/24 16:45 Olanzapine (Olanzapine 2.5 Mg Tab) 2.5 mg PO HS [facility] Stop: 10/10/24 20:59 Last Admin: 09/13/24 22:10 Dose: 2.5 mg Pantoprazole Sodium (Pantoprazole 40 Mg Tab) 40 mg PO DAILY [facility] Stop: 10/11/24 08:59 Last Admin: 09/14/24 08:46 Dose: 40 mg Polyethylene Glycol (Polyethylene (Miralax) 17 Gm Pack) 17 gm PO QID [facility] Stop: 10/13/24 15:44 Last Admin: 09/14/24 08:45 Dose: 17 gm Sennosides (Senna 8.6 Mg Tab) 8.6 mg PO QAM [facility] Stop: 10/11/24 11:29 Last Admin: 09/14/24 08:46 Dose: 8.6 mg Sodium Biphosphate/Sodium Phosphate (Sod Phosphate/Sod Biphosphate Enema 132 Ml Btl) 118 ml RI DAILY PRN PRN Reason: Constipation Stop: 10/10/24 16:45
--- NOTE | 2024-09-14 13:20 | XRay Report ---
XR chest 1V portable CLINICAL HISTORY: fever COMPARISON STUDY: 09/10/2024 FINDINGS: Stable CABG and pacemaker. Heart size and pulmonary vasculature are normal. No effusion, co nsolidation, or pneumothorax. Stable small nodule right lower lung. IMPRESSION: No pneumonia seen. ACT 112: Negative or not required by law. Electronically signed by: Stan Amaro M.D. 09/14/2024 1:18 PM
[2024-09-15 04:56] LABS: Appearance Urine Clear (Clear); Bacteria Urine Automated None Seen (None Seen); Bilirubin Urine Negative (Negative); Blood Urine Trace (Negative); Color Urine Yellow; Epithelial Cell Urine Auto 0-2 /hpf (0-2); Glucose Urine UA Negative (Negative); Ketones Urine Negative (Negative); Leukocyte Esterase Urine Negative (Negative); Nitrite Urine Negative (Negative); Protein Urine 1+ (Negative); RBC Urine Automated 0-2 /hpf (0-2); Specific Gravity Urine 1.014 (1.000-1.030); Urobilinogen Urine Negative (Negative); WBC Urine Automated 0-5 /hpf (0-5); pH Urine 6.5 (4.5-7.5)
[2024-09-15 06:30] LABS: Hematocrit (blood only) 28.2 % (42.0-52.0); Hemoglobin 9.3 g/dl (14.0-18.0); Mean Corpuscular Hemoglobin 29.4 pg (25.0-34.0); Mean Corpuscular Volume 89.2 fL (80.0-100.0); Mean Platelet Volume 8.4 fL (9.4-12.4); Platelet Count 336 K/uL (130-400); RDW Coefficient of Variation 18.6 % (11.5-14.5); RDW Standard Deviation 57.7 fL (36.4-46.3); Red Blood Count 3.16 M/uL (4.70-6.10)
[2024-09-15 07:17] LABS: BUN Creatinine Ratio 13.4 (10-20); Calcium 9.9 mg/dl (8.6-10.3); Creatinine Clr Calc Pharmacy 68.9 ml/min; Phosphorus 2.6 mg/dl (2.5-4.9); Potassium 4.2 mmol/L (3.5-5.1)
--- NOTE | 2024-09-15 11:02 | Gastroenterology Progress Note ---
Date of Service September 15, 2024 Assessment & Plan (1) Constipation: Plan Bowels finally seem to be moving now. - continue with miralax regimen and titrate dosing as needed. Admission and Anticipated Discharge Date Admission Date: September 10, 2024 Supervising Physician Co-Signing Physician Notes Too large spontaneous bowel movements. No signs of gastrointestinal bleeding. Nursing inquired about restarting his Eliquis he has been given the go ahead in that regard. Continue MiraLAX at least twice a day. Can decrease to once a day if stools too loose. Chronic MiraLAX recommended. GI will sign off reconsult as needed Subjective Patient tells me that he has had 2 large bowel movements since yesterday. he tells me that he is feeling improved. no other GI concerns. Review of Systems Review of Systems: All systems reviewed & are unremarkable except as noted in HPI & below Physical Exam Respiratory: normal respiratory effort, lungs clear to auscultation Cardiovascular: Rate/Rhythm: regular rate and regular rhythm Gastrointestinal (Abdomen): soft, nontender, normal bowel sounds. Psychiatric: alert Results & Data Results & Data Vital Signs (Past 12 Hours) Vital Signs Temp Pulse Pulse Resp BP BP Pulse Ox 09/15/24 08:21 98.1 F 82 16 126/62 94 09/15/24 03:00 98.2 F 79 16 102/58 L 95 09/14/24 23:43 98.2 F 70 18 143/58 H 95 O2 Del Method 09/15/24 08:21 Room Air 09/15/24 03:00 Room Air 09/14/24 23:43 Room Air Coding Level of Care Code 28159 SUB INP/OBS CARE 05/21MIN Diagnoses Constipation K59.00
--- NOTE | 2024-09-15 12:26 | Hospitalist Progress Note ---
Date of Service September 15, 2024 Assessment & Plan (1) Leukocytosis: (2) Urinary retention: Plan Urinary retention Likely secondary to significant constipation/fecal retention Stercoral colitis secondary to constipation --CT ABD:Constipation with stercoral proctitis redemonstrated, generally unchanged from the prior study. No bowel obstruction or pneumoperitoneum. Cholelithiasis. The right iliac, inguinal and lower right abdominal wall metas tatic implants appear generally stable. --Theodore catheter placed in ED --Continue Theodore catheter --Added bowel regimen to help with constipation -- Minimize narcotics as able as likely contributing to fecal retention --Plan for voiding trial prior to discharge --Consider urology evaluation if needed Rectal bleeding Likely due to stercoral colitis/proctitis Acute blood loss anemia Recent flexible sigmoidoscopy showed no signs of colitis/neoplasia per GI Held Plavix, Eliquis Appreciate GI help Patient required disimpaction Continue bowel regimen to help with constipation Continue Protonix S/P 2 units PRBC Monitor H&H and transfuse PRBCs as needed Hb 9.3 today, stable Currently on miralax by GI and had soft stool ? 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 Pt's at the bedside states that pt felt hot when she checked his forehead when visiting him. Temp now rechecked and normal. Per RN temp was documented wrong. Will obtain repeat blood cultx, CXR, UA. switch cefepime to zosyn for poss. anaerobic coverage 09/15 Hgb 9.3 Afebrile WBC 16K blood cultx - pending UA negat., CXR negat. 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, aphasia Subtotal thyroidectomy s/p radiation on Keytruda Dietitian consulted Aspiration precautions JAIME CPAP HS Other chronic conditions: Hypothyroidism, HLD, COPD CAD s/p CABG, SSS s/p PPM PAF, TIA s/p CEA, htn, AF HFpEF, GERD, JOHNSON, CHRISTIE, MDD Continue home medications as able: Resume Plavix, Eliquis once cleared by GI Acute on chronic chronic Normocytic anemia Management as above DVT Px: Eliquis--held due to rectal bleed SCDs for now CODE STATUS Full code Disposition PT OT prior to discharge Admission and Anticipated Discharge Date Admission Date: September 10, 2024 Subjective Patient is seen in follow up of urinary retention, constipation required disimpaction by GI also treated for acute blood loss anemia/ GI bleed and required blood transfusion reported fever 38C on 09/13 at 11pm , then again temp recorded 38.8 C on 09/14 pm - contacted RN and she was not aware of fever. Pt's at the bedside states that pt felt hot when she checked his forehead and visiting him. Temp rechecked and normal. Per RN temp was documented wrong. Hgb stable this AM at 9.3 WBC still elevated , now at 16K Obtained repeat blood cultx, CXR, UA. switched cefepime to zosyn for poss. anaerobic coverage. Afebrile for past 24 hrs Patient denies any chest pain, cough, dyspnea, dizziness, abdominal pain Review of Systems Review of Systems: All systems reviewed & are unremarkable except as noted in Subjective Physical Exam Physical Exam: General Appearance: Thin, frail, chronic ill-appearing, no apparent distress Head: normocephalic, Atraumatic Eyes: normal inspection, EOMI Neck: supple, + trach stoma Respiratory/Chest: Normal breath sounds, CTA,+ R clavicle deformed, No accessory muscle use Cardiovascular: S1, S2, +murmur Abdomen/GI:Soft, Non tender, Bowel sounds present Extremities/Musculoskeletal:normal inspection, + RLE edema , + Left thigh port Neurologic/Psych:AAOX3, grossly no focal neurological deficits Skin: normal color, warm,+Gluteal wound Results & Data Results & Data Vital Signs (Past 12 Hours) Vital Signs Temp Pulse Pulse Resp BP Pulse Ox O2 Del Method 09/15/24 10:54 36.5 C 74 16 99/57 L 94 Room Air 09/15/24 08:21 36.7 C 82 16 126/62 94 Room Air 09/15/24 03:00 36.8 C 79 16 102/58 L 95 Room Air Laboratory Results 09/15/24 09/15/24 09/15/24 Range/Units 10:31 06:09 02:45 WBC 16.00 H (4.8-10.8) K/ul RBC 3.16 L (4.70-6.10) M/uL Hgb 9.3 L (14.0-18.0) g/dl Hct 28.2 L (42.0-52.0) % MCV 89.2 (80.0-100.0) fL MCH 29.4 (25.0-34.0) pg MCHC 33.0 (32.0-36.0) g/dL RDW Std Deviation 57.7 H (36.4-46.3) fL RDW Coeff of Sharda 18.6 H (11.5-14.5) % Plt Count 336 (130-400) K/uL MPV 8.4 L (9.4-12.4) fL Sodium 134 L (136-145) mmol/L Potassium 4.2 (3.5-5.1) mmol/L Chloride 103 (98-107) mmol/L Carbon Dioxide 25 (21-32) mmol/L Anion Gap 6 (3-11) BUN 11 (6-23) mg/dl Creatinine 0.82 (0.6-1.4) mg/dl Est Cr Clr Drug Dosing 68.9 ml/min eGFR 86.08 BUN/Creatinine Ratio 13.4 (10-20) Glucose 97 (70-99(Fasting)) mg/dl POC Glucose (70-99) mg/dl Calcium 9.9 (8.6-10.3) mg/dl Phosphorus 2.6 (2.5-4.9) mg/dl Magnesium 2.0 (1.7-2.4) mg/dl Urine Color Yellow Urine Appearance Clear (Clear) Urine pH 6.5 (4.5-7.5) Ur Specific [place] 1.014 (1.000-1.030) Urine Protein 1+ H (Negative) Urine Glucose (UA) Negative (Negative) Urine Ketones Negative (Negative) Urine Blood Trace H (Negative) Urine Nitrite Negative (Negative) Urine Bilirubin Negative (Negative) Urine Urobilinogen Negative (Negative) Ur Leukocyte Esterase Negative (Negative) Urine WBC (Auto) 0-5 (0-5) /hpf Urine RBC (Auto) 0-2 (0-2) /hpf U Hyaline Cast (Auto) 3-5 H (0-2) /lpf U Epithel Cells (Auto) 0-2 (0-2) /hpf Urine Bacteria (Auto) None Seen (None Seen) Urine Comment Nasal Screen MRSA (PCR) Negative (Negative) 09/14/24 Range/Units 14:37 WBC (4.8-10.8) K/ul RBC (4.70-6.10) M/uL Hgb (14.0-18.0) g/dl Hct (42.0-52.0) % MCV (80.0-100.0) fL MCH (25.0-34.0) pg MCHC (32.0-36.0) g/dL RDW Std Deviation (36.4-46.3) fL RDW Coeff of Sharda (11.5-14.5) % Plt Count (130-400) K/uL MPV (9.4-12.4) fL Sodium (136-145) mmol/L Potassium (3.5-5.1) mmol/L Chloride (98-107) mmol/L Carbon Dioxide (21-32) mmol/L Anion Gap (3-11) BUN (6-23) mg/dl Creatinine (0.6-1.4) mg/dl Est Cr Clr Drug Dosing ml/min eGFR BUN/Creatinine Ratio (10-20) Glucose (70-99(Fasting)) mg/dl POC Glucose 124 H (70-99) mg/dl Calcium (8.6-10.3) mg/dl Phosphorus (2.5-4.9) mg/dl Magnesium (1.7-2.4) mg/dl Urine Color Urine Appearance (Clear) Urine pH (4.5-7.5) Ur Specific [place] (1.000-1.030) Urine Protein (Negative) Urine Glucose (UA) (Negative) Urine Ketones (Negative) Urine Blood (Negative) Urine Nitrite (Negative) Urine Bilirubin (Negative) Urine Urobilinogen (Negative) Ur Leukocyte Esterase (Negative) Urine WBC (Auto) (0-5) /hpf Urine RBC (Auto) (0-2) /hpf U Hyaline Cast (Auto) (0-2) /lpf U Epithel Cells (Auto) (0-2) /hpf Urine Bacteria (Auto) (None Seen) Urine Comment Nasal Screen MRSA (PCR) (Negative) Medications Administered Current Inpatient Medications Acetaminophen (Acetaminophen 325 Mg Tab) 650 mg PO Q6H PRN PRN Reason: Fever/Pain Stop: 10/10/24 16:45 Hydrocodone Bitart/Acetaminophen (Hydrocodone/Acetamophen 5/325mg Tab) 1 tab PO Q4H PRN PRN Reason: Moderate Pain (Scale 4, 5, 6) Stop: 09/24/24 14:41 Last Admin: 09/12/24 19:34 Dose: 1 tab Apixaban (Apixaban 5 Mg Tablet) 5 mg PO BID [facility] Stop: 10/10/24 20:59 Last Admin: 09/11/24 20:55 Dose: 5 mg Bisacodyl (Bisacodyl 10 Mg Supp) 10 mg [place] DAILY PRN PRN Reason: Constipation Stop: 10/10/24 16:45 Calamine/Phenol (Menthol-Zinc Oxide 360 Appln/120 Gm Tube) 1 appln EXT TID [facility] Stop: 10/10/24 16:45 Last Admin: 09/15/24 09:58 Dose: 1 appln Clopidogrel Bisulfate (Clopidogrel Bisulfate 75 Mg Tab) 75 mg PO DAILY [facility] Stop: 10/11/24 08:59 Last Admin: 09/11/24 08:30 Dose: 75 mg Cyclobenzaprine HCl (Cyclobenzaprine Hcl 5 Mg Tab) 5 mg PO Q8H PRN PRN Reason: Muscle Spasms Stop: 10/10/24 16:45 Diphenoxylate HCl/Atropine (Diphenoxylate/Atropine 2.5/0.025mg Tab) 1 tab PO QID PRN PRN Reason: Diarrhea Stop: 10/10/24 16:45 Docusate Sodium (Docusate Sodium 100 Mg Cap) 100 mg PO BID [facility] Stop: 10/11/24 08:59 Last Admin: 09/15/24 09:57 Dose: 100 mg Heparin Sodium (Porcine) (Heparin 100 Unit/Ml 5ml Flush) 5 ml FLUSH PRN PRN PRN Reason: Flush Stop: 10/11/24 10:55 Last Admin: 09/13/24 08:44 Dose: 5 ml Vancomycin HCl (Vancomycin Hcl) 1,000 mg in 270 mls @ 200 mls/hr IV Q12H [facility] Stop: 09/15/24 20:59 Last Admin: 09/15/24 09:56 Dose: 25 mls/hr Piperacillin Sod/Tazobactam Sod (Zosyn) 4.5 gm in 100 mls @ 25 mls/hr IV Q8H [facility]; Protocol Stop: 09/16/24 16:59 Last Admin: 09/15/24 09:56 Dose: 25 mls/hr Levothyroxine Sodium (Levothyroxine Sodium 125 Mcg Tablet) 125 mcg PO DAILYBB [facility] Stop: 10/11/24 06:29 Last Admin: 09/15/24 05:41 Dose: 125 mcg Magnesium Hydroxide (Magnesium Hydroxide Susp 30 Ml Udc) 30 ml PO DAILY PRN PRN Reason: Constipation Stop: 10/10/24 16:45 Metoprolol Succinate (Metoprolol Succ 25mg Ext Rel Tab) 25 mg PO DAILY [facility] Stop: 10/11/24 08:59 Last Admin: 09/15/24 09:58 Dose: 25 mg Mirtazapine (Mirtazapine Tab 15 Mg Tab) 15 mg PO HS [facility] Stop: 10/10/24 20:59 Last Admin: 09/14/24 20:39 Dose: 15 mg Miscellaneous Information (Vancomycin Consult Active) 1 each N/A UD PRN PRN Reason: Consult Stop: 10/10/24 13:28 Morphine Sulfate (Morphine Sulfate 2 Mg/Ml Carp) 2 mg IV Q4H PRN PRN Reason: Pain Stop: 09/25/24 22:48 Last Admin: 09/14/24 18:14 Dose: 2 mg Nitroglycerin (Nitroglycerin Sl 0.4 Mg/Tab Tab) 0.4 mg SL UD PRN PRN Reason: Chest Pain Stop: 10/10/24 16:45 Olanzapine (Olanzapine 2.5 Mg Tab) 2.5 mg PO HS [facility] Stop: 10/10/24 20:59 Last Admin: 09/14/24 20:39 Dose: 2.5 mg Pantoprazole Sodium (Pantoprazole 40 Mg Tab) 40 mg PO DAILY [facility] Stop: 10/11/24 08:59 Last Admin: 09/15/24 09:58 Dose: 40 mg Polyethylene Glycol (Polyethylene (Miralax) 17 Gm Pack) 17 gm PO QID [facility] Stop: 10/13/24 15:44 Last Admin: 09/15/24 09:58 Dose: 17 gm Sennosides (Senna 8.6 Mg Tab) 8.6 mg PO QAM [facility] Stop: 10/11/24 11:29 Last Admin: 09/15/24 09:57 Dose: 8.6 mg Sodium Biphosphate/Sodium Phosphate (Sod Phosphate/Sod Biphosphate Enema 132 Ml Btl) 118 ml [place] DAILY PRN PRN Reason: Constipation Stop: 10/10/24 16:45
[2024-09-16 06:15] LABS: Hematocrit (blood only) 28.7 % (42.0-52.0); Hemoglobin 9.2 g/dl (14.0-18.0); Mean Corpuscular Hgb Conc 32.1 g/dL (32.0-36.0); Mean Corpuscular Volume 90.5 fL (80.0-100.0); Mean Platelet Volume 8.3 fL (9.4-12.4); Platelet Count 315 K/uL (130-400); RDW Coefficient of Variation 18.6 % (11.5-14.5); RDW Standard Deviation 59.4 fL (36.4-46.3); Red Blood Count 3.17 M/uL (4.70-6.10); White Blood Count 14.82 K/ul (4.8-10.8)
[2024-09-16 06:33] LABS: Calcium 10.2 mg/dl (8.6-10.3); Creatinine Clr Calc Pharmacy 75.4 ml/min; Magnesium 2.2 mg/dl (1.7-2.4); Phosphorus 2.4 mg/dl (2.5-4.9); Potassium 3.7 mmol/L (3.5-5.1)
--- NOTE | 2024-09-16 14:29 | Pharmacy Report ---
Pharmacy PK ABX Note - Date of Service September 16, 2024 - Assessment and Plan Assessment 09/16/24 * Vancomycin level obtained this morning was 14.4mcg/mL which extrapolates to an AUC within the target range. * Continue vancomycin as is for now pending ID recommendations. 09/12/24 * Vanc level obtained this morning, indicating that current regimen is appropriate. * No changes required at this time. 09/10/24 * 84 year old M receiving empiric vancomycin/cefepime. Pertinent microbiologic data includes: Blood cultures pending. Recent antibiotic use for CAP-cefepime and flagyl. WBC 19.8 * Day #1 of antibiotics Plan Vancomycin * Vanc random level: 14.4 mcg/mL * Regimen is predicted to achieve target AUC/AURORA of 400-600 mg/L.hr (predicted steady state level: 590 mg/L.hr) * Continue 1000 mg IV every 12 hours * No further levels have been ordered at this time. Will consider evaluating another level in a few days if pt remains hospitalized. Pharmacy will continue to follow and will adjust dose/frequency as necessary. Thank you. Pharmacy has transitioned to AUC monitoring for vancomycin. AUC/AURORA is the preferred PK/PD target and is associated with decreased risk of nephrotoxicity compared to traditional trough targets.
--- NOTE | 2024-09-16 15:30 | Hospitalist Progress Note ---
Date of Service September 16, 2024 Assessment & Plan (1) Leukocytosis: (2) Urinary retention: Plan Urinary retention Likely secondary to significant constipation/fecal retention Stercoral colitis secondary to constipation --CT ABD:Constipation with stercoral proctitis redemonstrated, generally unchanged from the prior study. No bowel obstruction or pneumoperitoneum. Cholelithiasis. The right iliac, inguinal and lower right abdominal wall metas tatic implants appear generally stable. --Theodore catheter placed in ED --Continue Theodore catheter --Added bowel regimen to help with constipation -- Minimize narcotics as able as likely contributing to fecal retention --Plan for voiding trial prior to discharge --Consider urology evaluation if needed Rectal bleeding Likely due to stercoral colitis/proctitis Acute blood loss anemia Recent flexible sigmoidoscopy showed no signs of colitis/neoplasia per GI Held Plavix, Eliquis Appreciate GI help Patient required disimpaction Continue bowel regimen to help with constipation Continue Protonix S/P 2 units PRBC Monitor H&H and transfuse PRBCs as needed Hb 9.2 today, stable, Eliquis was resumed Currently on miralax by GI and having soft stool, GI recommends regular miralax use Recent pneumonia Imaging showed Small right pleural effusion with right basilar bronchopneumonia Currently denies any respiratory symptoms On empiric antibiotics as below Monitor repeat cxr w/o pna Sacral wound Leukocytosis Hypotension No other obvious signs of infection -- Blood culture negative to date --Urine culture negative -- Empirically on vancomycin, cefepime Titrate down antibiotics as 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 Pt's at the bedside states that pt felt hot when she checked his forehead when visiting him. Temp now rechecked and normal. Per RN temp was documented wrong. Will obtain repeat blood cultx, CXR, UA. switch cefepime to zosyn for poss. anaerobic coverage 09/15 Hgb 9.3 Afebrile WBC 16K blood cultx - negat. TD UA negat., CXR negat. Will further discuss w/ ID 09/16 WBC down to 14.8K, cont. 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, aphasia Subtotal thyroidectomy s/p radiation on Keytruda Dietitian consulted Aspiration precautions JAIME CPAP HS Other chronic conditions: Hypothyroidism, HLD, COPD CAD s/p CABG, SSS s/p PPM PAF, TIA s/p CEA, htn, AF HFpEF, GERD, JOHNSON, CHRISTIE, MDD Continue home medications as able: Resume Plavix, Eliquis once cleared by GI Acute on chronic chronic Normocytic anemia Management as above DVT Px: Eliquis--held due to rectal bleed SCDs for now CODE STATUS Full code Disposition PT OT prior to discharge Admission and Anticipated Discharge Date Admission Date: September 10, 2024 Subjective Patient is seen in follow up of urinary retention, constipation required disimpaction by GI also treated for acute blood loss anemia/ GI bleed and required blood transfusion reported fever 38C on 09/13 at 11pm , then again temp recorded 38.8 C on 09/14 pm - contacted RN and she was not aware of fever. Pt's at the bedside states that pt felt hot when she checked his forehead and visiting him. Temp rechecked and normal. Per RN temp was documented wrong. Hgb stable this AM at 9.2 WBC still elevated , but down today 14.8K Patient denies any chest pain, cough, dyspnea, dizziness, abdominal pain Having loose stool w/ miralax and no blood in stool Review of Systems Review of Systems: All systems reviewed & are unremarkable except as noted in Subjective Physical Exam Physical Exam: General Appearance: Thin, frail, chronic ill-appearing, no apparent distress Head: normocephalic, Atraumatic Eyes: normal inspection, EOMI Neck: supple, + trach stoma Respiratory/Chest: Normal breath sounds, CTA,+ R clavicle deformed, No accessory muscle use Cardiovascular: S1, S2, +murmur Abdomen/GI:Soft, Non tender, Bowel sounds present Extremities/Musculoskeletal:normal inspection, + RLE edema , + Left thigh port Neurologic/Psych:AAOX3, grossly no focal neurological deficits Skin: normal color, warm,+Gluteal wound Results & Data Results & Data Vital Signs (Past 12 Hours) Vital Signs Temp Pulse Pulse Resp BP BP Pulse Ox 09/16/24 15:15 36.7 C 67 18 96/51 L 98 09/16/24 13:00 78 09/16/24 10:51 36.3 C L 74 17 115/61 96 09/16/24 07:26 36.5 C 69 17 115/61 94 09/16/24 07:00 67 09/16/24 04:00 36.5 C 67 18 129/68 96 O2 Del Method 09/16/24 15:15 Room Air 09/16/24 13:00 09/16/24 10:51 Room Air 09/16/24 07:26 Room Air 09/16/24 07:00 09/16/24 04:00 Room Air Laboratory Results 09/16/24 Range/Units 05:53 WBC 14.82 H (4.8-10.8) K/ul RBC 3.17 L (4.70-6.10) M/uL Hgb 9.2 L (14.0-18.0) g/dl Hct 28.7 L (42.0-52.0) % MCV 90.5 (80.0-100.0) fL MCH 29.0 (25.0-34.0) pg MCHC 32.1 (32.0-36.0) g/dL RDW Std Deviation 59.4 H (36.4-46.3) fL RDW Coeff of Sharda 18.6 H (11.5-14.5) % Plt Count 315 (130-400) K/uL MPV 8.3 L (9.4-12.4) fL Sodium 134 L (136-145) mmol/L Potassium 3.7 (3.5-5.1) mmol/L Chloride 103 (98-107) mmol/L Carbon Dioxide 25 (21-32) mmol/L Anion Gap 6 (3-11) BUN 12 (6-23) mg/dl Creatinine 0.75 (0.6-1.4) mg/dl Est Cr Clr Drug Dosing 75.4 ml/min eGFR 88.43 BUN/Creatinine Ratio 16.0 (10-20) Glucose 86 (70-99(Fasting)) mg/dl Calcium 10.2 (8.6-10.3) mg/dl Phosphorus 2.4 L (2.5-4.9) mg/dl Magnesium 2.2 (1.7-2.4) mg/dl Random Vancomycin 14.4 (10-20) mcg/ml Medications Administered Current Inpatient Medications Acetaminophen (Acetaminophen 325 Mg Tab) 650 mg PO Q6H PRN PRN Reason: Fever/Pain Stop: 10/10/24 16:45 Last Admin: 09/16/24 10:28 Dose: 650 mg Hydrocodone Bitart/Acetaminophen (Hydrocodone/Acetamophen 5/325mg Tab) 1 tab PO Q4H PRN PRN Reason: Moderate Pain (Scale 4, 5, 6) Stop: 09/24/24 14:41 Last Admin: 09/16/24 05:39 Dose: 1 tab Apixaban (Apixaban 5 Mg Tablet) 5 mg PO BID [facility] Stop: 10/10/24 20:59 Last Admin: 09/16/24 11:57 Dose: 5 mg Bisacodyl (Bisacodyl 10 Mg Supp) 10 mg FL DAILY PRN PRN Reason: Constipation Stop: 10/10/24 16:45 Calamine/Phenol (Menthol-Zinc Oxide 360 Appln/120 Gm Tube) 1 appln EXT TID [facility] Stop: 10/10/24 16:45 Last Admin: 09/16/24 14:11 Dose: 1 appln Clopidogrel Bisulfate (Clopidogrel Bisulfate 75 Mg Tab) 75 mg PO DAILY [facility] Stop: 10/11/24 08:59 Last Admin: 09/11/24 08:30 Dose: 75 mg Cyclobenzaprine HCl (Cyclobenzaprine Hcl 5 Mg Tab) 5 mg PO Q8H PRN PRN Reason: Muscle Spasms Stop: 10/10/24 16:45 Diphenoxylate HCl/Atropine (Diphenoxylate/Atropine 2.5/0.025mg Tab) 1 tab PO QID PRN PRN Reason: Diarrhea Stop: 10/10/24 16:45 Docusate Sodium (Docusate Sodium 100 Mg Cap) 100 mg PO BID [facility] Stop: 10/11/24 08:59 Last Admin: 09/16/24 12:45 Dose: Not Given Heparin Sodium (Porcine) (Heparin 100 Unit/Ml 5ml Flush) 5 ml FLUSH PRN PRN PRN Reason: Flush Stop: 10/11/24 10:55 Last Admin: 09/16/24 10:28 Dose: 5 ml Piperacillin Sod/Tazobactam Sod (Zosyn) 4.5 gm in 100 mls @ 25 mls/hr IV Q8H [facility]; Protocol Stop: 09/16/24 16:59 Last Admin: 09/16/24 11:57 Dose: 25 mls/hr Vancomycin HCl (Vancomycin Hcl) 1,000 mg in 270 mls @ 200 mls/hr IV Q12H [facility] Stop: 09/19/24 21:30 Last Infusion: 09/16/24 12:00 Dose: Infused Levothyroxine Sodium (Levothyroxine Sodium 125 Mcg Tablet) 125 mcg PO DAILYBB [facility] Stop: 10/11/24 06:29 Last Admin: 09/16/24 05:40 Dose: 125 mcg Magnesium Hydroxide (Magnesium Hydroxide Susp 30 Ml Udc) 30 ml PO DAILY PRN PRN Reason: Constipation Stop: 10/10/24 16:45 Last Admin: 09/15/24 20:23 Dose: 30 ml Metoprolol Succinate (Metoprolol Succ 25mg Ext Rel Tab) 25 mg PO DAILY [facility] Stop: 10/11/24 08:59 Last Admin: 09/16/24 10:26 Dose: 25 mg Mirtazapine (Mirtazapine Tab 15 Mg Tab) 15 mg PO HS [facility] Stop: 10/10/24 20:59 Last Admin: 09/15/24 20:22 Dose: 15 mg Miscellaneous Information (Vancomycin Consult Active) 1 each N/A UD PRN PRN Reason: Consult Stop: 10/10/24 13:28 Morphine Sulfate (Morphine Sulfate 2 Mg/Ml Carp) 2 mg IV Q4H PRN PRN Reason: Pain Stop: 09/25/24 22:48 Last Admin: 09/14/24 18:14 Dose: 2 mg Nitroglycerin (Nitroglycerin Sl 0.4 Mg/Tab Tab) 0.4 mg SL UD PRN PRN Reason: Chest Pain Stop: 10/10/24 16:45 Olanzapine (Olanzapine 2.5 Mg Tab) 2.5 mg PO HS [facility] Stop: 10/10/24 20:59 Last Admin: 09/15/24 20:22 Dose: 2.5 mg Pantoprazole Sodium (Pantoprazole 40 Mg Tab) 40 mg PO DAILY [facility] Stop: 10/11/24 08:59 Last Admin: 09/16/24 10:26 Dose: 40 mg Polyethylene Glycol (Polyethylene (Miralax) 17 Gm Pack) 17 gm PO BID [facility] Stop: 10/16/24 20:59 Sennosides (Senna 8.6 Mg Tab) 8.6 mg PO QAM [facility] Stop: 10/11/24 11:29 Last Admin: 09/16/24 10:30 Dose: Not Given Sodium Biphosphate/Sodium Phosphate (Sod Phosphate/Sod Biphosphate Enema 132 Ml Btl) 118 ml FL DAILY PRN PRN Reason: Constipation Stop: 10/10/24 16:45
--- NOTE | 2024-09-16 16:55 | Infectious Disease Consult ---
<Statement entered by Luly Mobley MD - 09/16/24 17:08> I personally interacted with the patient and together with my fellow Dr He we reviewed his chart and formulated a treatment plan Date of Service September 16, 2024 Telehealth Information I performed this visit using a real-time telehealth connection between my location and the patients location ([facility]). After connecting through interactive tele-video, patient was identified by name and date of and/or wristband check.Patient (or authorized healthcare senior outside sales representative) was informed that this was a telemedicine visit and it was being conducted confidentially over secure lines. My office door was closed and no one else was present in the room with me.Patient (or authorized healthcare senior outside sales representative) provided consent to proceed with the visit, expressed an understanding of privacy and security of the telemedicine visit, and gave permission to have a hospital senior outside sales representative in the room in order to assist with the visit and to conduct portions of the visit, as needed. I informed the patie nt (or authorized healthcare senior outside sales representative) that I reviewed their record and presented the opportunity for them to ask any questions regarding the visit today. The patient agreed to participate. Assessment & Plan (1) Stercoral colitis: (2) Constipation: (3) Leukocytosis: Plan -Discontinue vancomycin and Zosyn. -The leukocytosis is most likely attributed to the underlying colitis. -Manage the patient's stercoral colitis/proctitis as per Gastroenterology's recommendations. -Infectious Disease is signing off. 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 He presented to the emergency department with low back pain, urinary retention, and constipation. Upon evaluation, the patient reported two large bowel movements since the previous day and noted an improvement in his condition. He denies any additional gastrointestinal concerns. Initial laboratory workup revealed a significant drop in hemoglobin from 8.5 to 6.6, and there was blood mixed with brown stool observed on his bed pad. A KUB on September 11, 2024, demonstrated extensive fecal retention, and a CT scan on September 10, 2024, showed constipation with stercoral proctitis, which was unchanged from prior imaging. The patient did not report any gastrointestinal complaints at the time of examination. A flexible sigmoidoscopy conducted in July 2024 revealed rectal tenderness on digital rectal examination, but the rectum appeared grossly normal, and no specimens were collected. The patient had a history of rectal bleeding likely due to stercoral colitis/proctitis, and he was treated for acute blood loss anemia with two units of packed red blood cells (PRBCs), resulting in a stable hemoglobin level of 9.3. He was placed on empiric antibiotics, including vancomycin and cefepime for suspected pneumonia, and continued to be monitored for respiratory symptoms, which he currently denies. The patient experienced urinary retention, likely secondary to significant constipation and fecal retention. A Theodore catheter was placed in the emergency department, and a bowel regimen was initiated to alleviate constipation. Additionally, the patient has a sacral wound, leukocytosis, and hypotension with no other obvious signs of infection. Blood and urine cultures have been negative to date. The patient's ongoing conditions are being managed with appropriate home medications and supportive care, including CPAP for JAIME and aspiration precautions due to his history of laryngeal cancer and aphasia. Infectious Disease was consulted because of elevated WBC count(14.82) today. Allergies Allergy/AdvReac Type Severity Reaction Status Date / Time rosuvastatin [From Crestor] Allergy Unknown HAPPENED A Verified 08/13/24 15:17 LONG TIME AGO. Home Medications Medication Instructions Recorded Confirmed Type levothyroxine 125 mcg tablet 125 mcg PO DAILYBB 03/25/18 09/10/24 History nitroglycerin 0.4 mg sublingual 1 tab sublingual DIRECTED PRN 03/25/18 09/10/24 History tablet Chest Pain apixaban 5 mg tablet (Eliquis) 5 mg PO AMHS 09/13/21 09/10/24 History olanzapine 2.5 mg tablet 2.5 mg PO HS 07/24/24 09/10/24 History diphenoxylate-atropine 2.5 1 tab PO QID PRN Diarrhea 08/05/24 09/10/24 History mg-0.025 mg tablet mirtazapine 15 mg tablet 15 mg PO HS 08/05/24 09/10/24 History pantoprazole 40 mg tablet,delayed 40 mg PO DAILY 08/05/24 09/10/24 History release clopidogrel 75 mg tablet 75 mg PO DAILY 08/25/24 09/10/24 History metoprolol succinate 25 mg 25 mg PO DAILY 08/25/24 09/10/24 History tablet,extended release 24 hr acetaminophen 325 mg tablet 650 mg PO Q6H PRN Fever/Pain 09/10/24 09/10/24 History (Tylenol) bisacodyl 10 mg rectal suppository 10 mg OK DAILY PRN Constipation 09/10/24 09/10/24 History (Dulcolax (bisacodyl)) cyclobenzaprine 5 mg tablet 5 mg PO Q8H PRN Muscle Spasms 09/10/24 09/10/24 History magnesium hydroxide 400 mg/5 mL 2,400 mg PO DAILY PRN Constipation 09/10/24 09/10/24 History oral suspension (Milk of Magnesia) menthol 0.44 %-zinc oxide 20.6 % 1 applic topical TID Wound Care 09/10/24 09/10/24 History topical ointment sodium phosphates 19 gram-7 118 ml OK DAILY PRN Constipation 09/10/24 09/10/24 History gram/118 mL enema (Fleet Enema) Patient History Medical History S/P radiation therapy Thyroid disease Back problem Moderate aortic stenosis Acute electrocardiogram changes Difficult airway for intubation H/o glidescope #4 with CEA 03/2018 Carotid artery stenosis with cerebral infarction over 8 weeks ago The patient presented to [facility] ED on 03/26/18 with expressive aphasia, left upper extremity numbness, left lower extremity weakness. Symptoms were resolving by the time the patient arrived in the ED. Pt had R CEA while inpatient on 03/29 Obesity Neck pain OCCASIONAL Sleep apnea CPAP History of radiation to head and neck region For laryngeal cancer 1986 Pharyngocutaneous fistula Benign neoplasm of colon JAIME on CPAP no longer on CPAP post tracheostomy Surgical History Hx of laryngectomy (~1999) History of bronchoscopy History of tonsillectomy History of carotid endarterectomy RIGHT (MARCH 2018) History of cataract extraction with lens replacement cataract extraction with IOL implant and LRI left eye - 05/02/12 History of colonoscopy with polypectomy History of rotator cuff surgery Right - 2009 History of coronary artery bypass graft X2 VESSEL 1995 -- S LISS Family History Mother Essential hypertension Stroke Sister Cancer Breast cancer Daughter Cancer Colon cancer Social History Smoking Status: Former smoker Tobacco Type: Cigarettes Age Quit Using Tobacco: 55; packs per day: 2; Second Hand Exposure: No; Do You Dip or Chew Tobacco: No; Tobacco Cessation Education Requested by Patient: No Hx Alcohol Use: No Hx Substance Use: No Preferred Language: Mohawk Communication Ability: Effective Communication Ability Comment: trach stoma. TEP Visual Impairment: No Limitations Hearing Ability: Normal Psychological Operations Specialist Required: No Beliefs That Will Affect Care: Cheondoism Cheondoism Beliefs: Cheondoism marital status: Current Living Situation: Spouse Current Living Situation Comment: home with spouse current occupational status: retired How many Children do You have: 2 How many Children do You have Comment: Son can help Other Information That Helps Us Care for You: No other: Home health nursing twice per week Feels Safe at Home: Yes Safety Concerns: Feels Safe At This Time Diet: regular during the past year weight has: decreased > 10 lbs Physical Activity Frequency: Does not Exercise Assistive Devices: Nebulizer, Walker and Other Review of Systems Constitutional: No Weight Change, No Fever, No Chills, No Night Sweats, No Fatigue, No Malaise ENT/Mouth: No Hearing Changes, No Ear Pain, No Nasal Congestion, No Sinus Pain, No Hoarseness, No sore throat, No Rhinorrhea, No Swallowing Difficulty Eyes: No Eye Pain, No Swelling, No Redness, No Foreign Body, No Discharge, No Vision Changes Cardiovascular: No Chest Pain, No SOB, No PND, No Dyspnea on Exertion, No Orthopnea, No Claudication, No Edema, No Palpitations Respiratory: No Cough, No Sputum, No Wheezing, No Smoke Exposure, No Dyspnea Gastrointestinal: No Nausea, No Vomiting, No Diarrhea, No Constipation, No Pain, No Heartburn, No Anorexia, No Dysphagia, No Hematochezia, No Melena, No Flatulence, No Jaundice Genitourinary: No Dysmenorrhea, No DUB, No Dyspareunia, No Dysuria, No Urinary Frequency, No Hematuria, No Urinary Incontinence, No Urgency, No Flank Pain, No Urinary Flow Changes, No Hesitancy Musculoskeletal: No Arthralgias, No Myalgias, No Joint Swelling, No Joint Stiffness, No Back Pain, No Neck Pain, No Injury History Skin: No Skin Lesions, No Pruritis, No Hair Changes, No Breast/Skin Changes, No Nipple Discharge Neuro: No Weakness, No Numbness, No Paresthesias, No Loss of Consciousness, No Syncope, No Dizziness, No Headache, No Coordination Changes, No Recent Falls Psych: No Anxiety/Panic, No Depression, No Insomnia, No Personality Changes, No Delusions, No Rumination, No SI/HI/AH/VH, No Social Issues, No Memory Changes, No Violence/Abuse Hx., No Eating Concerns Heme/Lymph: No Bruising, No Bleeding, No Transfusions History, No Lymphadenopathy Endocrine: No Polyuria, No Polydipsia, No Temperature Intolerance Physical Exam could not be done as it was a video visit Results & Data Vital Signs (Past 12 Hours) Vital Signs Temp Pulse Pulse Resp BP BP Pulse Ox 09/16/24 15:15 36.7 C 67 18 96/51 L 98 09/16/24 13:00 78 09/16/24 10:51 36.3 C L 74 17 115/61 96 09/16/24 07:26 36.5 C 69 17 115/61 94 09/16/24 07:00 67 O2 Del Method 09/16/24 15:15 Room Air 09/16/24 13:00 09/16/24 10:51 Room Air 09/16/24 07:26 Room Air 09/16/24 07:00 Laboratory Results 09/14/24 13:56 Aerobic Blood Culture - Preliminary Blood No growth in Aerobic bottle after 48 hours. Anaerobic Blood Culture - Preliminary No growth in Anaerobic bottle after 48 hours. 09/14/24 14:04 Aerobic Blood Culture - Preliminary Blood No growth in Aerobic bottle after 48 hours. Anaerobic Blood Culture - Preliminary No growth in Anaerobic bottle after 48 hours. 09/10/24 14:25 Aerobic Blood Culture - Final Blood No growth in Aerobic bottle after 5 days. Anaerobic Blood Culture - Final No growth in Anaerobic bottle after 5 days. 09/10/24 13:47 Aerobic Blood Culture - Final Blood No growth in Aerobic bottle after 5 days. Anaerobic Blood Culture - Final No growth in Anaerobic bottle after 5 days. 09/16/24 05:53 WBC 14.82 H RBC 3.17 L Hgb 9.2 L Hct 28.7 L MCV 90.5 MCH 29.0 MCHC 32.1 RDW Std Deviation 59.4 H RDW Coeff of Sharda 18.6 H Plt Count 315 MPV 8.3 L Sodium 134 L Potassium 3.7 Chloride 103 Carbon Dioxide 25 Anion Gap 6 BUN 12 Creatinine 0.75 Est Cr Clr Drug Dosing 75.4 eGFR 88.43 BUN/Creatinine Ratio 16.0 Glucose 86 Calcium 10.2 Phosphorus 2.4 L Magnesium 2.2 Random Vancomycin 14.4 Medications Administered Home Medications Medication Instructions Recorded Confirmed Last Taken levothyroxine 125 mcg tablet 125 mcg PO DAILYBB 03/25/18 09/10/24 09/10/24 nitroglycerin 0.4 mg sublingual 1 tab sublingual DIRECTED PRN 03/25/18 09/10/24 Unknown tablet Chest Pain apixaban 5 mg tablet (Eliquis) 5 mg PO AMHS 09/13/21 09/10/24 09/10/24 olanzapine 2.5 mg tablet 2.5 mg PO HS 07/24/24 09/10/24 09/09/24 diphenoxylate-atropine 2.5 1 tab PO QID PRN Diarrhea 08/05/24 09/10/24 09/01/24 mg-0.025 mg tablet mirtazapine 15 mg tablet 15 mg PO HS 08/05/24 09/10/24 09/09/24 pantoprazole 40 mg tablet,delayed 40 mg PO DAILY 08/05/24 09/10/24 09/10/24 release clopidogrel 75 mg tablet 75 mg PO DAILY 08/25/24 09/10/24 09/10/24 metoprolol succinate 25 mg 25 mg PO DAILY 08/25/24 09/10/24 09/10/24 tablet,extended release 24 hr acetaminophen 325 mg tablet 650 mg PO Q6H PRN Fever/Pain 09/10/24 09/10/24 Unknown (Tylenol) bisacodyl 10 mg rectal suppository 10 mg OK DAILY PRN Constipation 09/10/24 09/10/24 09/09/24 (Dulcolax (bisacodyl)) cyclobenzaprine 5 mg tablet 5 mg PO Q8H PRN Muscle Spasms 09/10/24 09/10/24 Unknown magnesium hydroxide 400 mg/5 mL 2,400 mg PO DAILY PRN Constipation 09/10/24 09/10/24 09/09/24 oral suspension (Milk of Magnesia) menthol 0.44 %-zinc oxide 20.6 % 1 applic topical TID Wound Care 09/10/24 09/10/24 09/10/24 topical ointment sodium phosphates 19 gram-7 118 ml OK DAILY PRN Constipation 09/10/24 09/10/24 09/10/24 gram/118 mL enema (Fleet Enema) Active Medications Generic Name Dose Route Start Last Admin Trade Name Freq PRN Reason Stop Dose Admin Acetaminophen 650 mg 09/10/24 16:46 09/16/24 10:28 Acetaminophen 325 Mg Tab PO 10/10/24 16:45 650 mg Q6H PRN Administration Fever/Pain Hydrocodone Bitart/Acetaminophen 1 tab 09/10/24 14:42 09/16/24 05:39 Hydrocodone/Acetamophen 5/325mg Tab PO 09/24/24 14:41 1 tab Q4H PRN Administration Moderate Pain (Scale 4, 5, 6) Apixaban 5 mg 09/10/24 21:00 09/16/24 11:57 Apixaban 5 Mg Tablet PO 10/10/24 20:59 5 mg BID HUNG Administration Calamine/Phenol 1 appln 09/10/24 16:46 09/16/24 14:11 Menthol-Zinc Oxide 360 Appln/120 Gm Tube EXT 10/10/24 16:45 1 appln TID HUNG Administration Clopidogrel Bisulfate 75 mg 09/11/24 09:00 09/11/24 08:30 Clopidogrel Bisulfate 75 Mg Tab PO 10/11/24 08:59 75 mg DAILY HUNG Administration Docusate Sodium 100 mg 09/11/24 09:00 09/16/24 12:45 Docusate Sodium 100 Mg Cap PO 10/11/24 08:59 Not Given BID HUNG Heparin Sodium (Porcine) 5 ml 09/11/24 10:56 09/16/24 10:28 Heparin 100 Unit/Ml 5ml Flush FLUSH 10/11/24 10:55 5 ml PRN PRN Administration Flush Piperacillin Sod/Tazobactam Sod 4.5 gm in 100 mls @ 25 mls/hr 09/14/24 17:00 09/16/24 16:44 Zosyn IV 09/16/24 16:59 Infused Q8H HUNG Infusion Protocol Vancomycin HCl 1,000 mg in 270 mls @ 200 mls/hr 09/16/24 09:30 09/16/24 12:00 Vancomycin Hcl IV 09/19/24 21:30 Infused Q12H HUNG Infusion Levothyroxine Sodium 125 mcg 09/11/24 06:30 09/16/24 05:40 Levothyroxine Sodium 125 Mcg Tablet PO 10/11/24 06:29 125 mcg DAILYBB HUNG Administration Magnesium Hydroxide 30 ml 09/10/24 16:46 09/15/24 20:23 Magnesium Hydroxide Susp 30 Ml Udc PO 10/10/24 16:45 30 ml DAILY PRN Administration Constipation Metoprolol Succinate 25 mg 09/11/24 09:00 09/16/24 10:26 Metoprolol Succ 25mg Ext Rel Tab PO 10/11/24 08:59 25 mg DAILY HUNG Administration Mirtazapine 15 mg 09/10/24 21:00 09/15/24 20:22 Mirtazapine Tab 15 Mg Tab PO 10/10/24 20:59 15 mg HS HUNG Administration Morphine Sulfate 2 mg 09/11/24 22:49 09/14/24 18:14 Morphine Sulfate 2 Mg/Ml Carp IV 09/25/24 22:48 2 mg Q4H PRN Administration Pain Olanzapine 2.5 mg 09/10/24 21:00 09/15/24 20:22 Olanzapine 2.5 Mg Tab PO 10/10/24 20:59 2.5 mg HS HUNG Administration Pantoprazole Sodium 40 mg 09/11/24 09:00 09/16/24 10:26 Pantoprazole 40 Mg Tab PO 10/11/24 08:59 40 mg DAILY HUNG Administration Sennosides 8.6 mg 09/11/24 11:30 09/16/24 10:30 Senna 8.6 Mg Tab PO 10/11/24 11:29 Not Given QAM HUNG
[2024-09-17 06:14] LABS: Hematocrit (blood only) 26.5 % (42.0-52.0); Hemoglobin 8.5 g/dl (14.0-18.0); Mean Corpuscular Hgb Conc 32.1 g/dL (32.0-36.0); Mean Corpuscular Volume 90.4 fL (80.0-100.0); Mean Platelet Volume 8.9 fL (9.4-12.4); Platelet Count 319 K/uL (130-400); RDW Coefficient of Variation 18.2 % (11.5-14.5); RDW Standard Deviation 58.4 fL (36.4-46.3); Red Blood Count 2.93 M/uL (4.70-6.10); White Blood Count 15.66 K/ul (4.8-10.8)
[2024-09-17 06:37] LABS: BUN Creatinine Ratio 20.3 (10-20); Calcium 10.7 mg/dl (8.6-10.3); Creatinine Clr Calc Pharmacy 71.1 ml/min; Magnesium 2.2 mg/dl (1.7-2.4); Phosphorus 2.8 mg/dl (2.5-4.9); Potassium 3.4 mmol/L (3.5-5.1)
--- NOTE | 2024-09-17 11:27 | Hospitalist Progress Note ---
Date of Service September 17, 2024 Assessment & Plan (1) Leukocytosis: (2) Urinary retention: Plan Urinary retention Likely secondary to significant constipation/fecal retention Stercoral colitis secondary to constipation --CT ABD:Constipation with stercoral proctitis redemonstrated, generally unchanged from the prior study. No bowel obstruction or pneumoperitoneum. Cholelithiasis. The right iliac, inguinal and lower right abdominal wall metas tatic implants appear generally stable. --Theodore catheter placed in ED --Continue Theodore catheter --Added bowel regimen to help with constipation -- Minimize narcotics as able as likely contributing to fecal retention --Plan for voiding trial prior to discharge --Consider urology evaluation if needed Rectal bleeding Likely due to stercoral colitis/proctitis Acute blood loss anemia Recent flexible sigmoidoscopy showed no signs of colitis/neoplasia per GI Held Plavix, Eliquis Appreciate GI help Patient required disimpaction Continue bowel regimen to help with constipation Continue Protonix S/P 2 units PRBC Monitor H&H and transfuse PRBCs as needed Hb stable, Eliquis was resumed Currently on miralax by GI and having soft stool, GI recommends regular miralax use 09/17/2024 WBC still elevated at 15.6K - discussed w/ GI - will obtain CT abd/pelvis w/ oral contrast today - pt in agreement Recent pneumonia Imaging showed Small right pleural effusion with right basilar bronchopneumonia Currently denies any respiratory symptoms On empiric antibiotics as below Monitor repeat cxr w/o pna Sacral wound Leukocytosis Hypotension No other obvious signs of infection -- Blood culture negative to date --Urine culture negative -- Empirically on vancomycin, cefepime Titrate down antibiotics as able notch grinder consulted Gentle IV fluids as needed 09/14 Overnight reported fever 38C Hgb stable AM at 8.8 WBC still elevated , now at 15K PM - temp recorded 38.8 C - contacted RN and she was not aware of fever. Pt's at the bedside states that pt felt hot when she checked his forehead when visiting him. Temp now rechecked and normal. Per RN temp was documented wrong. Will obtain repeat blood cultx, CXR, UA. switch cefepime to zosyn for poss. anaerobic coverage 09/15 Hgb 9.3 Afebrile WBC 16K blood cultx - negat. TD UA negat., CXR negat. Will further discuss w/ ID 09/16 WBC down to 14.8K, cont. 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, aphasia Subtotal thyroidectomy s/p radiation on Keytruda Dietitian consulted Aspiration precautions JAIME CPAP HS Other chronic conditions: Hypothyroidism, HLD, COPD CAD s/p CABG, SSS s/p PPM PAF, TIA s/p CEA, htn, AF HFpEF, GERD, JOHNSON, CHRISTIE, MDD Continue home medications as able: Resume Plavix, Eliquis once cleared by GI Acute on chronic chronic Normocytic anemia Management as above DVT Px: Eliquis--resumed SCDs CODE STATUS Full code Disposition - home w/ HH Admission and Anticipated Discharge Date Admission Date: September 10, 2024 Subjective Patient is seen in follow up of urinary retention, constipation required disimpaction by GI also treated for acute blood loss anemia/ GI bleed and required blood transfusion reported fever 38C on 09/13 at 11pm , then again temp recorded 38.8 C on 09/14 pm - contacted RN and she was not aware of fever. Pt's at the bedside states that pt felt hot when she checked his forehead and visiting him. Temp rechecked and normal. Per RN temp was documented wrong. Hgb overall stable, no GI bleed documented anymore WBC still elevated at 15.6K - discussed w/ GI - will obtain CT abd/pelvis w/ oral contrast today - pt in agreement Patient denies any chest pain, cough, dyspnea, dizziness, abdominal pain Having loose stool w/ miralax and no blood in stool Review of Systems Review of Systems: All systems reviewed & are unremarkable except as noted in Subjective Physical Exam Physical Exam: General Appearance: Thin, frail, chronic ill-appearing, no apparent distress Head: normocephalic, Atraumatic Eyes: normal inspection, EOMI Neck: supple, + trach stoma Respiratory/Chest: Normal breath sounds, CTA,+ R clavicle deformed, No accessory muscle use Cardiovascular: S1, S2, +murmur Abdomen/GI:Soft, Non tender, Bowel sounds present Extremities/Musculoskeletal:normal inspection, + RLE edema , + Left thigh port Neurologic/Psych:AAOX3, grossly no focal neurological deficits Skin: normal color, warm,+Gluteal wound Results & Data Results & Data Vital Signs (Past 12 Hours) Vital Signs Temp Pulse Pulse Resp BP BP Pulse Ox 09/17/24 08:35 71 09/17/24 07:45 36.7 C 67 24 116/61 95 09/17/24 03:27 36.5 C 72 18 127/52 L 96 09/16/24 23:44 36.8 C 67 18 127/54 L 97 O2 Del Method 09/17/24 08:35 09/17/24 07:45 Room Air 09/17/24 03:27 Room Air 09/16/24 23:44 Room Air Laboratory Results 09/17/24 Range/Units 05:41 WBC 15.66 H (4.8-10.8) K/ul RBC 2.93 L (4.70-6.10) M/uL Hgb 8.5 L (14.0-18.0) g/dl Hct 26.5 L (42.0-52.0) % MCV 90.4 (80.0-100.0) fL MCH 29.0 (25.0-34.0) pg MCHC 32.1 (32.0-36.0) g/dL RDW Std Deviation 58.4 H (36.4-46.3) fL RDW Coeff of Sharda 18.2 H (11.5-14.5) % Plt Count 319 (130-400) K/uL MPV 8.9 L (9.4-12.4) fL Sodium 135 L (136-145) mmol/L Potassium 3.4 L (3.5-5.1) mmol/L Chloride 104 (98-107) mmol/L Carbon Dioxide 25 (21-32) mmol/L Anion Gap 6 (3-11) BUN 16 (6-23) mg/dl Creatinine 0.79 (0.6-1.4) mg/dl Est Cr Clr Drug Dosing 71.1 ml/min eGFR 87.06 BUN/Creatinine Ratio 20.3 H (10-20) Glucose 80 (70-99(Fasting)) mg/dl Calcium 10.7 H (8.6-10.3) mg/dl Phosphorus 2.8 (2.5-4.9) mg/dl Magnesium 2.2 (1.7-2.4) mg/dl Medications Administered Current Inpatient Medications Acetaminophen (Acetaminophen 325 Mg Tab) 650 mg PO Q6H PRN PRN Reason: Fever/Pain Stop: 10/10/24 16:45 Last Admin: 09/16/24 10:28 Dose: 650 mg Hydrocodone Bitart/Acetaminophen (Hydrocodone/Acetamophen 5/325mg Tab) 1 tab PO Q4H PRN PRN Reason: Moderate Pain (Scale 4, 5, 6) Stop: 09/24/24 14:41 Last Admin: 09/16/24 20:59 Dose: 1 tab Apixaban (Apixaban 5 Mg Tablet) 5 mg PO BID [facility] Stop: 10/10/24 20:59 Last Admin: 09/17/24 10:08 Dose: 5 mg Bisacodyl (Bisacodyl 10 Mg Supp) 10 mg [place] DAILY PRN PRN Reason: Constipation Stop: 10/10/24 16:45 Calamine/Phenol (Menthol-Zinc Oxide 360 Appln/120 Gm Tube) 1 appln EXT TID [facility] Stop: 10/10/24 16:45 Last Admin: 09/17/24 09:48 Dose: 1 appln Clopidogrel Bisulfate (Clopidogrel Bisulfate 75 Mg Tab) 75 mg PO DAILY [facility] Stop: 10/11/24 08:59 Last Admin: 09/11/24 08:30 Dose: 75 mg Cyclobenzaprine HCl (Cyclobenzaprine Hcl 5 Mg Tab) 5 mg PO Q8H PRN PRN Reason: Muscle Spasms Stop: 10/10/24 16:45 Diphenoxylate HCl/Atropine (Diphenoxylate/Atropine 2.5/0.025mg Tab) 1 tab PO QID PRN PRN Reason: Diarrhea Stop: 10/10/24 16:45 Docusate Sodium (Docusate Sodium 100 Mg Cap) 100 mg PO BID [facility] Stop: 10/11/24 08:59 Last Admin: 09/17/24 09:46 Dose: Not Given Heparin Sodium (Porcine) (Heparin 100 Unit/Ml 5ml Flush) 5 ml FLUSH PRN PRN PRN Reason: Flush Stop: 10/11/24 10:55 Last Admin: 09/16/24 10:28 Dose: 5 ml Levothyroxine Sodium (Levothyroxine Sodium 125 Mcg Tablet) 125 mcg PO DAILYBB [facility] Stop: 10/11/24 06:29 Last Admin: 09/17/24 05:29 Dose: 125 mcg Magnesium Hydroxide (Magnesium Hydroxide Susp 30 Ml Udc) 30 ml PO DAILY PRN PRN Reason: Constipation Stop: 10/10/24 16:45 Last Admin: 09/15/24 20:23 Dose: 30 ml Metoprolol Succinate (Metoprolol Succ 25mg Ext Rel Tab) 25 mg PO DAILY [facility] Stop: 10/11/24 08:59 Last Admin: 09/17/24 10:08 Dose: 25 mg Mirtazapine (Mirtazapine Tab 15 Mg Tab) 15 mg PO HS [facility] Stop: 10/10/24 20:59 Last Admin: 09/16/24 21:01 Dose: 15 mg Morphine Sulfate (Morphine Sulfate 2 Mg/Ml Carp) 2 mg IV Q4H PRN PRN Reason: Pain Stop: 09/25/24 22:48 Last Admin: 09/16/24 16:51 Dose: 2 mg Nitroglycerin (Nitroglycerin Sl 0.4 Mg/Tab Tab) 0.4 mg SL UD PRN PRN Reason: Chest Pain Stop: 10/10/24 16:45 Olanzapine (Olanzapine 2.5 Mg Tab) 2.5 mg PO HS [facility] Stop: 10/10/24 20:59 Last Admin: 09/16/24 21:01 Dose: 2.5 mg Pantoprazole Sodium (Pantoprazole 40 Mg Tab) 40 mg PO DAILY [facility] Stop: 10/11/24 08:59 Last Admin: 09/17/24 10:08 Dose: 40 mg Polyethylene Glycol (Polyethylene (Miralax) 17 Gm Pack) 17 gm PO BID [facility] Stop: 10/16/24 20:59 Last Admin: 09/17/24 09:46 Dose: Not Given Sennosides (Senna 8.6 Mg Tab) 8.6 mg PO QAM [facility] Stop: 10/11/24 11:29 Last Admin: 09/17/24 09:46 Dose: Not Given Sodium Biphosphate/Sodium Phosphate (Sod Phosphate/Sod Biphosphate Enema 132 Ml Btl) 118 ml [place] DAILY PRN PRN Reason: Constipation Stop: 10/10/24 16:45
--- NOTE | 2024-09-17 12:25 | CT Scan Report ---
Technique: Axial computed tomography images were obtained of the abdomen and pelvis without intravenous contrast. Oral contrast was given Comparison is made to the prior CT dated 09/10/2024 Findings: The liver is overall of normal size, attenuation, and contour with no sign of cirrhosis or significant fatty infiltration. No definite liver mass lesion is seen on this noncontrast study. There are multiple small gallstones. There is no definite sign of acute cholecystitis. No bile duct dilatation is noted. The spleen is of normal size. No focal splenic lesion is evident. The pancreas appears normal with no sign of acute or chronic pancreatitis and no mass lesion noted. The pancreatic duct is of normal caliber. The adrenal glands appear unremarkable. There are multifocal renal vascular calcifications bilaterally. No definite renal or proximal ureteral calculi are seen. There is no hydronephrosis or perinephric stranding. There is an unchanged 1.2 cm hyperdense right renal lesion and there is a 2.7 cm mildly hyperdense left renal lesion, likely proteinaceous or hemorrhagic cysts. There are bilateral simple appearing renal cysts also, measuring up to 4 cm. The aorta is of normal caliber. There is multifocal atherosclerotic plaque. An IVC filter is present. No abdominal adenopathy is seen. There is a small hiatal hernia. There is no sign of small bowel obstruction. There is been interval decrease in rectal stool with mild constipation remaining. There is mild concentric rectal wall thickening. No free intraperitoneal fluid or air is identified. No distal ureteral or bladder calculi are seen. The bladder is decompressed, containing a Theodore catheter. There is prominence of the bladder wall that may be due to the decompressed state. The iliac arteries are of normal caliber. There is a left femoral central venous line with its tip in the IVC. There is a 9.3 x 6.3 cm lobulated mass involving the right lower quadrant anterior abdominal wall musculature, previously 7.5 x 5.7 cm. There is a right inguinal mass that measures up to 6.5 x 6.2 cm, previously 6.1 x 5.3 cm. There are multiple adjacent right inguinal lymph nodes, the largest measuring 3.7 x 2.4 cm, previously 3.4 x 2.2 cm. There is an approximately 3.9 cm right iliopsoas mass, previously 3.2 cm There is a small right pleural effusion and there is a minimal left pleural effusion, increased in size. There are unchanged multifocal patchy alveolar, interstitial, and small nodular opacities in the right middle lobe and right lower lobe, concerning for pneumonia. There is also right lower lobe atelectasis. Pacemaker leads are present Lumbar degenerative disc disease is seen. There is bilateral hip osteoarthritis. No fracture is identified. No focal osseous lesion is seen Impression: 1. Interval increase in size of pelvic soft tissue masses and right inguinal adenopathy, concerning for worsening metastatic disease 2. Persistent right middle lobe and right lower lobe opacities, likely due to pneumonia 3. Increased small right pleural effusion and minimal left pleural effusion 4. Bilateral renal cysts. There are bilateral hyperdense renal lesions that are indeterminate in nature but likely benign proteinaceous or hemorrhagic cysts 5. Small hiatal hernia 6. Cholelithiasis without evidence of acute cholecystitis 7. Interval improvement in rectal fecal impaction 8. Mild rectal wall thickening that could be due to persistent stercoral proctitis, infection, or inflammatory bowel disease 9. Prominence of the wall of the urinary bladder. This appearance could be due to incomplete distention, though infectious cystitis or other pathology cannot be excluded. Correlation with urinalysis may be useful ACT 112: Positive. There are findings on this exam that require communication between the performing entity and the patient following Patient Test Result Information Act ([place] ACT 112) guidelines. Electronically signed by Alvarez Schmitt 09-17-2024 12:25 PM
[2024-09-17 19:46] LABS: Hematocrit (blood only) 27.8 % (42.0-52.0); Hemoglobin 9.1 g/dl (14.0-18.0)
[2024-09-18 07:43] LABS: Hemoglobin 8.7 g/dl (14.0-18.0); Mean Corpuscular Hemoglobin 29.2 pg (25.0-34.0); Mean Corpuscular Hgb Conc 32.2 g/dL (32.0-36.0); Mean Corpuscular Volume 90.6 fL (80.0-100.0); Mean Platelet Volume 8.7 fL (9.4-12.4); Platelet Count 315 K/uL (130-400); RDW Standard Deviation 58.6 fL (36.4-46.3); Red Blood Count 2.98 M/uL (4.70-6.10); White Blood Count 17.57 K/ul (4.8-10.8)
[2024-09-18 08:06] LABS: BUN Creatinine Ratio 20.8 (10-20); Calcium 10.8 mg/dl (8.6-10.3); Creatinine Clr Calc Pharmacy 77.7 ml/min; Phosphorus 2.6 mg/dl (2.5-4.9); Potassium 3.2 mmol/L (3.5-5.1)
--- NOTE | 2024-09-18 11:28 | Hospitalist Progress Note ---
Date of Service September 18, 2024 Assessment & Plan (1) Leukocytosis: (2) Urinary retention: Plan Urinary retention Likely secondary to significant constipation/fecal retention Stercoral colitis secondary to constipation --CT ABD:Constipation with stercoral proctitis redemonstrated, generally unchanged from the prior study. No bowel obstruction or pneumoperitoneum. Cholelithiasis. The right iliac, inguinal and lower right abdominal wall metas tatic implants appear generally stable. --Theodore catheter placed in ED --Continue Theodore catheter --Added bowel regimen to help with constipation -- Minimize narcotics as able as likely contributing to fecal retention --Plan for voiding trial prior to discharge --Consider urology evaluation if needed Rectal bleeding Likely due to stercoral colitis/proctitis Acute blood loss anemia Recent flexible sigmoidoscopy showed no signs of colitis/neoplasia per GI Held Plavix, Eliquis Appreciate GI help Patient required disimpaction Continue bowel regimen to help with constipation Continue Protonix S/P 2 units PRBC Monitor H&H and transfuse PRBCs as needed Hb stable, Eliquis was resumed Currently on miralax by GI and having soft stool, GI recommends regular miralax use 09/17/2024 WBC still elevated at 15.6K - discussed w/ GI - will obtain CT abd/pelvis w/ oral contrast today - pt in agreement Recent pneumonia Imaging showed Small right pleural effusion with right basilar bronchopneumonia Currently denies any respiratory symptoms On empiric antibiotics as below Monitor repeat cxr w/o pna Sacral wound Leukocytosis Hypotension No other obvious signs of infection -- Blood culture negative to date --Urine culture negative -- Empirically on vancomycin, cefepime Titrate down antibiotics as able strike plate attacher consulted Gentle IV fluids as needed 09/14 Overnight reported fever 38C Hgb stable AM at 8.8 WBC still elevated , now at 15K PM - temp recorded 38.8 C - contacted RN and she was not aware of fever. Pt's at the bedside states that pt felt hot when she checked his forehead when visiting him. Temp now rechecked and normal. Per RN temp was documented wrong. Will obtain repeat blood cultx, CXR, UA. switch cefepime to zosyn for poss. anaerobic coverage 09/15 Hgb 9.3 Afebrile WBC 16K blood cultx - negat. TD UA negat., CXR negat. Will further discuss w/ ID 09/16 WBC down to 14.8K, cont. to monitor 09/18 Discussed w/ GI - obtained CT abd/pelvis w/ oral contrast yesterday -> then developed more loose stools and some blood in stool. H&H fairly stable. Eliquis on hold per equity director. Discussed w/ GI again today - august re-eval tmrw for poss. endoscopy. Cont. 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, aphasia Subtotal thyroidectomy s/p radiation on Keytruda Dietitian consulted Aspiration precautions JAIME CPAP HS Other chronic conditions: Hypothyroidism, HLD, COPD CAD s/p CABG, SSS s/p PPM PAF, TIA s/p CEA, htn, AF HFpEF, GERD, JOHNSON, CHRISTIE, MDD Continue home medications as able: Resume Plavix, Eliquis once cleared by GI Acute on chronic chronic Normocytic anemia Management as above DVT Px: Eliquis--on hold now SCDs CODE STATUS Full code Disposition - home w/ HH Admission and Anticipated Discharge Date Admission Date: September 10, 2024 Subjective Patient is seen in follow up of urinary retention, constipation required disimpaction by GI also treated for acute blood loss anemia/ GI bleed and required blood transfusion reported fever 38C on 09/13 at 11pm , then again temp recorded 38.8 C on 09/14 pm - contacted RN and she was not aware of fever. Pt's at the bedside states that pt felt hot when she checked his forehead and visiting him. Temp rechecked and normal. Per RN temp was documented wrong. Hgb overall stable, no GI bleed documented anymore WBC still elevated at 17.6 K Discussed w/ GI - obtained CT abd/pelvis w/ oral contrast yesterday -> then developed more loose stools and some blood in stool. H&H fairly stable. Eliquis on hold per equity director. Discussed w/ GI again today - august re-eval tmrw for poss. endoscopy. Cont. to monitor H&H and stool output Patient denies any chest pain, cough, dyspnea, dizziness, abdominal pain Review of Systems Review of Systems: All systems reviewed & are unremarkable except as noted in Subjective Physical Exam Physical Exam: General Appearance: Thin, frail, chronic ill-appearing, no apparent distress Head: normocephalic, Atraumatic Eyes: normal inspection, EOMI Neck: supple, + trach stoma Respiratory/Chest: Normal breath sounds, CTA,+ R clavicle deformed, No accessory muscle use Cardiovascular: S1, S2, +murmur Abdomen/GI:Soft, Non tender, Bowel sounds present Extremities/Musculoskeletal:normal inspection, + RLE edema , + Left thigh port Neurologic/Psych:AAOX3, grossly no focal neurological deficits Skin: normal color, warm,+Gluteal wound Results & Data Results & Data Vital Signs (Past 12 Hours) Vital Signs Temp Pulse Pulse Resp BP Pulse Ox O2 Del Method 09/18/24 08:00 Room Air 09/18/24 07:42 36.8 C 65 16 100/47 L 97 Room Air 09/18/24 07:24 69 09/18/24 03:52 36.6 C 70 17 151/62 H 97 Room Air Laboratory Results 09/18/24 09/17/24 09/17/24 Range/Units 07:06 Unknown 19:14 WBC 17.57 H (4.8-10.8) K/ul RBC 2.98 L (4.70-6.10) M/uL Hgb 8.7 L 9.1 L (14.0-18.0) g/dl Hct 27.0 L 27.8 L (42.0-52.0) % MCV 90.6 (80.0-100.0) fL MCH 29.2 (25.0-34.0) pg MCHC 32.2 (32.0-36.0) g/dL RDW Std Deviation 58.6 H (36.4-46.3) fL RDW Coeff of Sharda 18.0 H (11.5-14.5) % Plt Count 315 (130-400) K/uL MPV 8.7 L (9.4-12.4) fL Sodium 135 L (136-145) mmol/L Potassium 3.2 L (3.5-5.1) mmol/L Chloride 104 (98-107) mmol/L Carbon Dioxide 26 (21-32) mmol/L Anion Gap 5 (3-11) BUN 15 (6-23) mg/dl Creatinine 0.72 (0.6-1.4) mg/dl Est Cr Clr Drug Dosing 77.7 ml/min eGFR 89.53 BUN/Creatinine Ratio 20.8 H (10-20) Glucose 83 (70-99(Fasting)) mg/dl Calcium 10.8 H (8.6-10.3) mg/dl Phosphorus 2.6 (2.5-4.9) mg/dl Magnesium 2.0 (1.7-2.4) mg/dl Stool Occult Bld Scrn Positive A (Negative) Medications Administered Current Inpatient Medications Acetaminophen (Acetaminophen 325 Mg Tab) 650 mg PO Q6H PRN PRN Reason: Fever/Pain Stop: 10/10/24 16:45 Last Admin: 09/18/24 10:43 Dose: 650 mg Hydrocodone Bitart/Acetaminophen (Hydrocodone/Acetamophen 5/325mg Tab) 1 tab PO Q4H PRN PRN Reason: Moderate Pain (Scale 4, 5, 6) Stop: 09/24/24 14:41 Last Admin: 09/17/24 20:24 Dose: 1 tab Apixaban (Apixaban 5 Mg Tablet) 5 mg PO BID [facility] Stop: 10/10/24 20:59 Last Admin: 09/17/24 20:30 Dose: Not Given Bisacodyl (Bisacodyl 10 Mg Supp) 10 mg [place] DAILY PRN PRN Reason: Constipation Stop: 10/10/24 16:45 Calamine/Phenol (Menthol-Zinc Oxide 360 Appln/120 Gm Tube) 1 appln EXT TID [facility] Stop: 10/10/24 16:45 Last Admin: 09/18/24 10:04 Dose: 1 appln Clopidogrel Bisulfate (Clopidogrel Bisulfate 75 Mg Tab) 75 mg PO DAILY [facility] Stop: 10/11/24 08:59 Last Admin: 09/11/24 08:30 Dose: 75 mg Cyclobenzaprine HCl (Cyclobenzaprine Hcl 5 Mg Tab) 5 mg PO Q8H PRN PRN Reason: Muscle Spasms Stop: 10/10/24 16:45 Diphenoxylate HCl/Atropine (Diphenoxylate/Atropine 2.5/0.025mg Tab) 1 tab PO QID PRN PRN Reason: Diarrhea Stop: 10/10/24 16:45 Docusate Sodium (Docusate Sodium 100 Mg Cap) 100 mg PO BID [facility] Stop: 10/11/24 08:59 Last Admin: 09/18/24 10:04 Dose: Not Given Heparin Sodium (Porcine) (Heparin 100 Unit/Ml 5ml Flush) 5 ml FLUSH PRN PRN PRN Reason: Flush Stop: 10/11/24 10:55 Last Admin: 09/16/24 10:28 Dose: 5 ml Piperacillin Sod/Tazobactam Sod (Zosyn) 4.5 gm in 100 mls @ 25 mls/hr IV Q8H [facility]UNG; Protocol Stop: 09/20/24 15:59 Levothyroxine Sodium (Levothyroxine Sodium 125 Mcg Tablet) 125 mcg PO DAILYBB [facility] Stop: 10/11/24 06:29 Last Admin: 09/18/24 06:11 Dose: Not Given Magnesium Hydroxide (Magnesium Hydroxide Susp 30 Ml Udc) 30 ml PO DAILY PRN PRN Reason: Constipation Stop: 10/10/24 16:45 Last Admin: 09/15/24 20:23 Dose: 30 ml Metoprolol Succinate (Metoprolol Succ 25mg Ext Rel Tab) 25 mg PO DAILY [facility] Stop: 10/11/24 08:59 Last Admin: 09/18/24 10:04 Dose: Not Given Mirtazapine (Mirtazapine Tab 15 Mg Tab) 15 mg PO HS [facility] Stop: 10/10/24 20:59 Last Admin: 09/17/24 20:29 Dose: 15 mg Morphine Sulfate (Morphine Sulfate 2 Mg/Ml Carp) 2 mg IV Q4H PRN PRN Reason: Pain Stop: 09/25/24 22:48 Last Admin: 09/16/24 16:51 Dose: 2 mg Nitroglycerin (Nitroglycerin Sl 0.4 Mg/Tab Tab) 0.4 mg SL UD PRN PRN Reason: Chest Pain Stop: 10/10/24 16:45 Olanzapine (Olanzapine 2.5 Mg Tab) 2.5 mg PO HS [facility] Stop: 10/10/24 20:59 Last Admin: 09/17/24 20:29 Dose: 2.5 mg Pantoprazole Sodium (Pantoprazole 40 Mg Tab) 40 mg PO DAILY [facility] Stop: 10/11/24 08:59 Last Admin: 09/18/24 10:41 Dose: 40 mg Polyethylene Glycol (Polyethylene (Miralax) 17 Gm Pack) 17 gm PO BID [facility] Stop: 10/16/24 20:59 Last Admin: 09/18/24 10:41 Dose: 17 gm Sennosides (Senna 8.6 Mg Tab) 8.6 mg PO QAM [facility] Stop: 10/11/24 11:29 Last Admin: 09/18/24 10:05 Dose: Not Given Sodium Biphosphate/Sodium Phosphate (Sod Phosphate/Sod Biphosphate Enema 132 Ml Btl) 118 ml [place] DAILY PRN PRN Reason: Constipation Stop: 10/10/24 16:45
--- NOTE | 2024-09-18 12:19 | Communication Note ---
Palliative Care Note Patient seen and examined at bedside. present as well, discussed GOC, see advanced care planning note below. Otherwise, patient states he is fatigued, weak. Denies any pain at this time. Had diarrhea overnight. Advanced Care Plannin minutes spent discussing goals and values with patient and at bedside. Meeting began by discussing my role in the care team. this provider asked patient and for understanding of the current clinical situation both currently in the hospital and overall. Patient discussed the patient's ongoing hughes with stage IV laryngeal cancer but were unclear what was causing the diarrhea. In discussing goals and values, patient states his goal is to be with his , spend time at home doing projects laundry and have his good quality life as possible. He discusses that he is also Hinduism. His 's biggest fear is being unanswered without him. She is also concerned about him from a Hinduism perspective. Discussed his stable serious clinical condition, including progressive stage IV laryngeal cancer with evidence of progression on imaging. Over the last discussed his frequent hospitalizations and worsening overall clinical condition. Discussed his worsening functional status and nutritional status. family asked this provider about prognosis, this provider estimated prognosis on the scale of weeks to months, given progression of stage IV disease, ECOG 3, and poor nutritional status with evidence of cachexia on exam. He is also concerned the chemotherapy is making things worse. Given his goals, this provider offered a recommendation to focus on comfort at this time and trying to elevate quality of life. Discussed hospice at length. he states he would like to go home and not come back to hospital, and would like to stop chemotherapy/immunotherapy as he feels they are doing more harm than good. Also discussed resuscitation at length, risks and benefits discussed. He states he would not want aggressive measures taken at end of life. Patient DNRDNI at his time. He states he would like get into the best condition possible before he leaves. Discussed with Dr. Lam at length as well as case management. Gen: A&O 3 NAD, cachexia noted HEENT: NCAT, EOMI, not icteric. External ears normal. No rhinorrhea. Moist mucous membranes. Neck: Supple, full range of motion, no observable masses, No meningeal sign. Lungs: No Respiratory distress. CV: RRR, no edema. Abdomen: Soft, nondistended, No rebound tenderness. MSK: No joint swelling, no redness. Skin: No rashes, petechiae, lesions. Normal color per patient. Neuro: Normal Gait, Grossly intact. Psych: Appropriate for situation. Assessment/Plan: #Stage IV Laryngeal Cancer #Chronic Diarrhea #Advanced Care Planning -patient would like to focus on comfort upon leaving hospital -DNRDNI per patient wishes -patient has diarrhea, unclear etiology, could be 2/2 ongoing colitis in setting of chemotherapy vs. lingering immunotherapy effects vs. cancer progression vs. infectious -does have hypercalcemia as well, along with ECOG 3 Plan: -stop cyclobenzaprine, stop hydrocodone -stop mag citrate, stop colace -decrease mirtazapine to 7.5 mg to improve sleep/wake cycle -start oxycodone 5mg q4hr prn, increase breakthrough morphine to 3mg IV q4hr prn -case management for hospice referral, family chose [facility], freedom of choice given -DNRDNI, order placed -will continue to follow Date of Service: September 18, 2024
[2024-09-19 06:46] LABS: Hematocrit (blood only) 25.4 % (42.0-52.0); Hemoglobin 8.3 g/dl (14.0-18.0); Mean Corpuscular Hemoglobin 29.2 pg (25.0-34.0); Mean Corpuscular Hgb Conc 32.7 g/dL (32.0-36.0); Mean Corpuscular Volume 89.4 fL (80.0-100.0); Mean Platelet Volume 8.9 fL (9.4-12.4); Platelet Count 297 K/uL (130-400); RDW Coefficient of Variation 18.3 % (11.5-14.5); RDW Standard Deviation 58.7 fL (36.4-46.3); Red Blood Count 2.84 M/uL (4.70-6.10); White Blood Count 21.46 K/ul (4.8-10.8)
[2024-09-19 07:08] LABS: BUN Creatinine Ratio 20.5 (10-20); Calcium 10.8 mg/dl (8.6-10.3); Creatinine Clr Calc Pharmacy 65.3 ml/min; Phosphorus 2.7 mg/dl (2.5-4.9); Potassium 3.3 mmol/L (3.5-5.1)
[2024-09-19 09:05] VITALS: O2SAT 99
--- NOTE | 2024-09-19 09:47 | Gastroenterology Progress Note ---
Date of Service September 19, 2024 Assessment & Plan (1) Stercoral colitis: Plan: Clinically stable no signs of any progression of changes on recent CT scan. Sigmoidoscopy 1 month ago failed to reveal any significant inflammation. To do well on bowel regimen. No further investigate from GI standpoint. Continue present bowel regimen when discharged. Admission and Anticipated Discharge Date Admission Date: September 10, 2024 Subjective Resting comfortably denies abdominal pain or rectal pain. Claims to be having more regular bowel movements on present bowel regimen. Denies any bright red blood per rectum. No shortness of breath or chest pain. Physical Exam Physical Exam: No acute distress Respiratory rate regular Cardiac rhythm regular Abdomen soft nontender Results & Data Results & Data Vital Signs (Past 12 Hours) Vital Signs Temp Pulse Resp BP BP Pulse Ox O2 Del Method 09/19/24 09:03 36.9 C 63 18 110/52 L 99 Trach Collar 09/19/24 04:12 36.5 C 68 17 112/57 L 100 Trach Collar 09/19/24 00:26 37.7 C H 86 19 96/54 L 95 Room Air O2 Flow Rate 09/19/24 09:03 6 09/19/24 04:12 6 09/19/24 00:26 Laboratory Results Laboratory Results - last 48 hr 09/17/24 09/17/24 09/18/24 19:14 Unknown 07:06 WBC 17.57 H RBC 2.98 L Hgb 9.1 L 8.7 L Hct 27.8 L 27.0 L MCV 90.6 MCH 29.2 MCHC 32.2 RDW Std Deviation 58.6 H RDW Coeff of Sharda 18.0 H Plt Count 315 MPV 8.7 L Sodium 135 L Potassium 3.2 L Chloride 104 Carbon Dioxide 26 Anion Gap 5 BUN 15 Creatinine 0.72 Est Cr Clr Drug Dosing 77.7 eGFR 89.53 BUN/Creatinine Ratio 20.8 H Glucose 83 Calcium 10.8 H Phosphorus 2.6 Magnesium 2.0 Stool Occult Bld Scrn Positive A 09/19/24 06:22 WBC 21.46 H RBC 2.84 L Hgb 8.3 L Hct 25.4 L MCV 89.4 MCH 29.2 MCHC 32.7 RDW Std Deviation 58.7 H RDW Coeff of Sharda 18.3 H Plt Count 297 MPV 8.9 L Sodium 135 L Potassium 3.3 L Chloride 104 Carbon Dioxide 25 Anion Gap 6 BUN 17 Creatinine 0.83 Est Cr Clr Drug Dosing 65.3 eGFR 85.77 BUN/Creatinine Ratio 20.5 H Glucose 99 Calcium 10.8 H Phosphorus 2.7 Magnesium 2.0 Stool Occult Bld Scrn PG Care Time/CCT Total # of Minutes Spent Total Time Spent with Patient: Total time spent is greater than 50% in coordination of care (as documented) at patient's floor/unit and/or counseling patient: Coding Level of Care Code 13632 SUB INP/OBS CARE 235MIN Diagnoses Stercoral colitis K52.89
--- NOTE | 2024-09-19 09:53 | Hospitalist Progress Note ---
Date of Service September 19, 2024 Assessment & Plan (1) Leukocytosis: (2) Urinary retention: Plan Urinary retention Likely secondary to significant constipation/fecal retention Stercoral colitis secondary to constipation --CT ABD:Constipation with stercoral proctitis redemonstrated, generally unchanged from the prior study. No bowel obstruction or pneumoperitoneum. Cholelithiasis. The right iliac, inguinal and lower right abdominal wall metas tatic implants appear generally stable. --Theodore catheter placed in ED --Continue Theodore catheter --Added bowel regimen to help with constipation -- Minimize narcotics as able as likely contributing to fecal retention --Plan for voiding trial prior to discharge --Consider urology evaluation if needed 09/19 Theodore cath now removed, pt reports not voiding much, will bladder scan him Rectal bleeding Likely due to stercoral colitis/proctitis Acute blood loss anemia Recent flexible sigmoidoscopy showed no signs of colitis/neoplasia per GI Held Plavix, Eliquis Appreciate GI help Patient required disimpaction Continue bowel regimen to help with constipation Continue Protonix S/P 2 units PRBC Monitor H&H and transfuse PRBCs as needed Hb stable, Eliquis was resumed Currently on miralax by GI and having soft stool, GI recommends regular miralax use 09/17/2024 WBC still elevated at 15.6K - discussed w/ GI - will obtain CT abd/pelvis w/ oral contrast today - pt in agreement 09/19 No blood in stool anymore documented, plan to resume eliquis again Recent pneumonia Imaging showed Small right pleural effusion with right basilar bronchopneumonia Currently denies any respiratory symptoms On empiric antibiotics as below Monitor repeat cxr w/o pna CT abd/pelvis which also comments on poss. pna, given elev. WBC will switch abd to meropenem and cont. to monitor Sacral wound Leukocytosis Hypotension No other obvious signs of infection -- Blood culture negative to date --Urine culture negative -- Empirically on vancomycin, cefepime Titrate down antibiotics as able home health care worker consulted Gentle IV fluids as needed 09/[address] abd/pelvis which also comments on poss. pna, given elev. WBC will switch abd to meropenem and cont. to monitor 09/14 Overnight reported fever 38C Hgb stable AM at 8.8 WBC still elevated , now at 15K PM - temp recorded 38.8 C - contacted RN and she was not aware of fever. Pt's at the bedside states that pt felt hot when she checked his forehead when visiting him. Temp now rechecked and normal. Per RN temp was documented wrong. Will obtain repeat blood cultx, CXR, UA. switch cefepime to zosyn for poss. anaerobic coverage 09/15 Hgb 9.3 Afebrile WBC 16K blood cultx - negat. TD UA negat., CXR negat. Will further discuss w/ ID 09/16 WBC down to 14.8K, cont. to monitor 09/18 Discussed w/ GI - obtained CT abd/pelvis w/ oral contrast yesterday -> then developed more loose stools and some blood in stool. H&H fairly stable. Eliquis on hold per fixed income portfolio manager. Discussed w/ GI again today - may re-eval tmrw for poss. endoscopy. Cont. to monitor H&H and stool output 09/19 No more blood in stool documented - will resume eliquis again. WBC cont. to rise - poss. PNA, poss. underlying malignancy. Will switch to meropenem and will cont. 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, aphasia Subtotal thyroidectomy s/p radiation on Keytruda Dietitian consulted Aspiration precautions JAIME CPAP HS Other chronic conditions: Hypothyroidism, HLD, COPD CAD s/p CABG, SSS s/p PPM PAF, TIA s/p CEA, htn, AF HFpEF, GERD, JOHNSON, CHRISTIE, MDD Continue home medications as able: Resume Plavix, Eliquis once cleared by GI Acute on chronic chronic Normocytic anemia Management as above DVT Px: Eliquis--on hold now SCDs CODE STATUS - DNR / DNI - palliative medicine consulted - plan to DC w/ home hospice, once medically optimized Disposition - home w/ Home hospice Admission and Anticipated Discharge Date Admission Date: September 10, 2024 Subjective Patient is seen in follow up of urinary retention, constipation required disimpaction by GI also treated for acute blood loss anemia/ GI bleed and required blood transfus ion reported fever 38C on 09/13 at 11pm , then again temp recorded 38.8 C on 09/14 pm - contacted RN and she was not aware of fever. Pt's at the bedside states that pt felt hot when she checked his forehead and visiting him. Temp rechecked and normal. Per RN temp was documented wrong. WBC still elevated -poss. pna ? per Ct abd/pelvis. will switch abx No blood in stool now documented -> will resume eliquis Theodore removed - check bladder scan Patient denies any chest pain, cough, dyspnea, dizziness, abdominal pain Palliative medicine consulted (Dr. Wang) and following closely Review of Systems Review of Systems: All systems reviewed & are unremarkable except as noted in Subjective Physical Exam Physical Exam: General Appearance: Thin, frail, chronic ill-appearing, no apparent distress Head: normocephalic, Atraumatic Eyes: normal inspection, EOMI Neck: supple, + trach stoma Respiratory/Chest: Normal breath sounds, CTA,+ R clavicle deformed, No accessory muscle use Cardiovascular: S1, S2, +murmur Abdomen/GI:Soft, Non tender, Bowel sounds present Extremities/Musculoskeletal:normal inspection, + RLE edema , + Left thigh port Neurologic/Psych:AAOX3, grossly no focal neurological deficits Skin: normal color, warm,+Gluteal wound Results & Data Results & Data Vital Signs (Past 12 Hours) Vital Signs Temp Pulse Resp BP BP Pulse Ox O2 Del Method 09/19/24 09:03 36.9 C 63 18 110/52 L 99 Trach Collar 09/19/24 04:12 36.5 C 68 17 112/57 L 100 Trach Collar 09/19/24 00:26 37.7 C H 86 19 96/54 L 95 Room Air O2 Flow Rate 09/19/24 09:03 6 09/19/24 04:12 6 09/19/24 00:26 Laboratory Results 09/19/24 Range/Units 06:22 WBC 21.46 H (4.8-10.8) K/ul RBC 2.84 L (4.70-6.10) M/uL Hgb 8.3 L (14.0-18.0) g/dl Hct 25.4 L (42.0-52.0) % MCV 89.4 (80.0-100.0) fL MCH 29.2 (25.0-34.0) pg MCHC 32.7 (32.0-36.0) g/dL RDW Std Deviation 58.7 H (36.4-46.3) fL RDW Coeff of Sharda 18.3 H (11.5-14.5) % Plt Count 297 (130-400) K/uL MPV 8.9 L (9.4-12.4) fL Sodium 135 L (136-145) mmol/L Potassium 3.3 L (3.5-5.1) mmol/L Chloride 104 (98-107) mmol/L Carbon Dioxide 25 (21-32) mmol/L Anion Gap 6 (3-11) BUN 17 (6-23) mg/dl Creatinine 0.83 (0.6-1.4) mg/dl Est Cr Clr Drug Dosing 65.3 ml/min eGFR 85.77 BUN/Creatinine Ratio 20.5 H (10-20) Glucose 99 (70-99(Fasting)) mg/dl Calcium 10.8 H (8.6-10.3) mg/dl Phosphorus 2.7 (2.5-4.9) mg/dl Magnesium 2.0 (1.7-2.4) mg/dl Medications Administered Current Inpatient Medications Acetaminophen (Acetaminophen 325 Mg Tab) 650 mg PO Q6H PRN PRN Reason: Fever/Pain Stop: 10/10/24 16:45 Last Admin: 09/18/24 20:38 Dose: 650 mg Apixaban (Apixaban 5 Mg Tablet) 5 mg PO BID [facility] Stop: 10/10/24 20:59 Last Admin: 09/17/24 20:30 Dose: Not Given Calamine/Phenol (Menthol-Zinc Oxide 360 Appln/120 Gm Tube) 1 appln EXT TID [facility] Stop: 10/10/24 16:45 Last Admin: 09/19/24 09:40 Dose: 1 appln Clopidogrel Bisulfate (Clopidogrel Bisulfate 75 Mg Tab) 75 mg PO DAILY [facility] Stop: 10/11/24 08:59 Last Admin: 09/11/24 08:30 Dose: 75 mg Diphenoxylate HCl/Atropine (Diphenoxylate/Atropine 2.5/0.025mg Tab) 1 tab PO QID PRN PRN Reason: Diarrhea Stop: 10/10/24 16:45 Heparin Sodium (Porcine) (Heparin 100 Unit/Ml 5ml Flush) 5 ml FLUSH PRN PRN PRN Reason: Flush Stop: 10/11/24 10:55 Last Admin: 09/16/24 10:28 Dose: 5 ml Potassium Chloride (K Niraj / Wtr) 10 meq in 100 mls @ 100 mls/hr IV Q1H [facility] Stop: 09/19/24 10:14 Last Admin: 09/19/24 09:32 Dose: 100 mls/hr Sodium Chloride (Nss) 500 mls @ 80 mls/hr IV .Q6H15M ONE Stop: 09/19/24 14:23 Last Admin: 09/19/24 09:33 Dose: 80 mls/hr Meropenem 500 mg/ Syringe 10 mls @ 2 mls/min IV Q6H [facility]; Protocol Stop: 09/21/24 09:59 Levothyroxine Sodium (Levothyroxine Sodium 125 Mcg Tablet) 125 mcg PO DAILYBB [facility] Stop: 10/11/24 06:29 Last Admin: 09/19/24 05:42 Dose: Not Given Metoprolol Succinate (Metoprolol Succ 25mg Ext Rel Tab) 25 mg PO DAILY [facility] Stop: 10/11/24 08:59 Last Admin: 09/19/24 09:39 Dose: 25 mg Mirtazapine (Mirtazapine Tab 15 Mg Tab) 7.5 mg PO HS [facility] Stop: 10/18/24 20:59 Last Admin: 09/18/24 20:37 Dose: Not Given Morphine Sulfate (Morphine Sulfate 2 Mg/Ml Carp) 3 mg IV Q4H PRN PRN Reason: Breakthrough Pain Stop: 09/25/24 22:48 Olanzapine (Olanzapine 2.5 Mg Tab) 2.5 mg PO HS [facility] Stop: 10/10/24 20:59 Last Admin: 09/18/24 20:38 Dose: 2.5 mg Oxycodone HCl (Oxycodone Hcl Ir 5 Mg Tab (Immediate Release)) 5 mg PO Q4 PRN PRN Reason: Severe Pain (Scale 7, 8, 9,10) Stop: 10/02/24 12:20 Pantoprazole Sodium (Pantoprazole 40 Mg Tab) 40 mg PO DAILY [facility] Stop: 10/11/24 08:59 Last Admin: 09/19/24 09:39 Dose: 40 mg Sodium Biphosphate/Sodium Phosphate (Sod Phosphate/Sod Biphosphate Enema 132 Ml Btl) 118 ml OK DAILY PRN PRN Reason: Constipation Stop: 10/10/24 16:45
[2024-09-19 12:52] VITALS: BP 163/49; RESP 16; TEMP 97.5
--- NOTE | 2024-09-19 13:43 | Communication Note ---
Palliative Care Note Patient seen and examined at bedside. Patient states he wants to go home as soon as possible. He has no pain, nausea, vomiting, still has some diarrhea. Gen: A&O 3 NAD, cachexia noted HEENT: NCAT, EOMI, not icteric. External ears normal. No rhinorrhea. Moist mucous membranes. Neck: Supple, full range of motion, no observable masses, No meningeal sign. Lungs: No Respiratory distress. CV: RRR, no edema. Abdomen: Soft, nondistended, No rebound tenderness. MSK: No joint swelling, no redness. Skin: No rashes, petechiae, lesions. Normal color per patient. Neuro: Normal Gait, Grossly intact. Psych: Appropriate for situation. Assessment/Plan: #Stage IV Laryngeal Cancer #Chronic Diarrhea #Advanced Care Planning -patient would like to focus on comfort upon leaving hospital -DNRDNI per patient wishes -patient has diarrhea, unclear etiology, could be 2/2 ongoing colitis in setting of chemotherapy vs. lingering immunotherapy effects vs. cancer progression vs. infectious -does have hypercalcemia as well, along with ECOG 3 Plan: -continue mirtazapine to 7.5 mg to improve sleep/wake cycle -continue oxycodone 5mg q4hr prn, breakthrough morphine 3mg IV q4hr prn -case management for hospice referral, family chose [facility] -discussed personally with case management today and primary team -patient would like to go home as soon as possible -DNRDNI, order placed I will continue to follow. Date of Service: September 19, 2024
--- NOTE | 2024-09-19 14:48 | Discharge Summary ---
Date of Service September 19, 2024 Admission HPI Per Admitting Provider 84M hypothyroidism, HLD, COPD, JAIME, laryngeal ca s/p laryngectomy and neck dissection now without the ability to speak, subtotal thyroidectomy s/p radiation on Keytruda, CAD s/p CABG, SSS s/p dual-chamber PPM, PAF, TIA s/p CEA, htn, non rheumatic AF, HFpEF, GERD, JOHNSON, CHRISTIE, MDD who presents to the ED with low back pain, urinary retention and constipation. Of note patient recently seen on our service for CAP, for which symptoms have largely resolved. Patient was inpatient at a nursing facility until today at which time he was discharged. Is accompanied by who helps with history and also is able to write and mouth words. States that for the last 2d has been unable to urinate or defecate, also with pain on the top of his gluteal cleft which is his only complaint now that the evans is in. No other complaints including fever, chills. In the ED was noted to have non purulent wound over the sacrum which did not appear to be infectious or with exposed bone. Patient's wound was bandaged by the ED before my evaluation and utilizing joint decision making we did not remove the bandage as it was painful to the patient. Admission Exam Per Admitting Provider Constitutional: WD/WN, vitals as above Respiratory: normal respiratory effort, lungs clear to auscultation Cardiovascular: RRR, no murmur, no edema Gastrointestinal (Abdomen): normal bowel sounds, soft, nontender, no hepatosplenomegaly Skin: pain on palpation of the wound over the superior gluteal cleft Principal Diagnosis Stercoral colitis, severe constipation, rectal bleeding Urinary retention Hx of stage IV laryngeal cancer Discharge Exam General Appearance: Thin, frail, chronic ill-appearing, no apparent distress Head: normocephalic, Atraumatic Eyes: normal inspection, EOMI Neck: supple, + trach stoma Respiratory/Chest: Normal breath sounds, CTA,+ R clavicle deformed, No accessory muscle use Cardiovascular: S1, S2, +murmur Abdomen/GI:Soft, Non tender, Bowel sounds present Extremities/Musculoskeletal:normal inspection, + RLE edema , + Left thigh port Neurologic/Psych:AAOX3, grossly no focal neurological deficits Skin: normal color, warm,+Gluteal wound Discharge Data Allergies Allergy/AdvReac Type Severity Reaction Status Date / Time rosuvastatin [From Crestor] Allergy Unknown HAPPENED A Verified 08/13/24 15:17 LONG TIME AGO. Consultations 09/10/24 14:24 ED Decision to Admit Stat 09/12/24 07:16 Consult Gastroenterology Routine 09/15/24 11:27 Consult Infectious Diseases Routine Ordered Studies 09/10/24 11:39 CT abd pelvis wo con Stat IMPRESSION: 1. Small right pleural effusion with right basilar bronchopneumonia. 2. Constipation with stercoral proctitis re-demonstrated, generally unchanged from the prior study. 3. No bowel obstruction or pneumoperitoneum. 4. Cholelithiasis. 5. The right iliac, inguinal and lower right abdominal wall metastatic implants appear generally stable. 09/17/24 08:44 CT abd pelvis oral con only Routine Impression: 1. Interval increase in size of pelvic soft tissue masses and right inguinal adenopathy, concerning for worsening metastatic disease 2. Persistent right middle lobe and right lower lobe opacities, likely due to pneumonia 3. Increased small right pleural effusion and minimal left pleural effusion 4. Bilateral renal cysts. There are bilateral hyperdense renal lesions that are indeterminate in nature but likely benign proteinaceous or hemorrhagic cysts 5. Small hiatal hernia 6. Cholelithiasis without evidence of acute cholecystitis 7. Interval improvement in rectal fecal impaction 8. Mild rectal wall thickening that could be due to persistent stercoral proctitis, infection, or inflammatory bowel disease 9. Prominence of the wall of the urinary bladder. This appearance could be due to incomplete distention, though infectious cystitis or other pathology cannot be excluded. Correlation with urinalysis may be useful Hospital Course (1) Leukocytosis: (2) Urinary retention: (3) Hospice care: Plan Urinary retention Likely secondary to significant constipation/fecal retention Stercoral colitis secondary to constipation --CT ABD:Constipation with stercoral proctitis redemonstrated, generally unchanged from the prior study. No bowel obstruction or pneumoperitoneum. Cholel ithiasis. The right iliac, inguinal and lower right abdominal wall metastatic implants appear generally stable. --Evans catheter placed in ED --Continue Evans catheter --Added bowel regimen to help with constipation -- Minimize narcotics as able as likely contributing to fecal retention --Plan for voiding trial prior to discharge --Consider urology evaluation if needed 09/19 Evans cath now removed, pt reports not voiding much, will bladder scan him (bladder scan did not show urinary retention) Rectal bleeding Likely due to stercoral colitis/proctitis Acute blood loss anemia Recent flexible sigmoidoscopy showed no signs of colitis/neoplasia per GI Held Plavix, Eliquis Appreciate GI help Patient required disimpaction Continue bowel regimen to help with constipation Continue Protonix S/P 2 units PRBC Monitor H&H and transfuse PRBCs as needed Hb stable, Eliquis was resumed Currently on miralax by GI and having soft stool, GI recommends regular miralax use 09/17/2024 WBC still elevated at 15.6K - discussed w/ GI - will obtain CT abd/pelvis w/ oral contrast today - pt in agreement 09/19 No blood in stool anymore documented, plan to resume eliquis again Recent pneumonia Imaging showed Small right pleural effusion with right basilar bronchopneumonia Currently denies any respiratory symptoms On empiric antibiotics as below Monitor repeat cxr w/o pna CT abd/pelvis which also comments on poss. pna, given elev. WBC will switch abd to meropenem and cont. to monitor Sacral wound Leukocytosis Hypotension No other obvious signs of infection -- Blood culture negative to date --Urine culture negative -- Empirically on vancomycin, cefepime Titrate down antibiotics as able detective private eye consulted Gentle IV fluids as needed 09/[address] abd/pelvis which also comments on poss. pna, given elev. WBC will switch abd to meropenem and cont. to monitor 09/14 Overnight reported fever 38C Hgb stable AM at 8.8 WBC still elevated , now at 15K PM - temp recorded 38.8 C - contacted RN and she was not aware of fever. Pt's at the bedside states that pt felt hot when she checked his forehead when visiting him. Temp now rechecked and normal. Per RN temp was documented wrong. Will obtain repeat blood cultx, CXR, UA. switch cefepime to zosyn for poss. anaerobic coverage 09/15 Hgb 9.3 Afebrile WBC 16K blood cultx - negat. TD UA negat., CXR negat. Will further discuss w/ ID 09/16 WBC down to 14.8K, cont. to monitor 09/18 Discussed w/ GI - obtained CT abd/pelvis w/ oral contrast yesterday -> then developed more loose stools and some blood in stool. H&H fairly stable. Eliquis on hold per roadway engineer. Discussed w/ GI again today - may re-eval tmrw for poss. endoscopy. Cont. to monitor H&H and stool output 09/19 No more blood in stool documented - will resume eliquis again. WBC cont. to rise - poss. PNA, poss. underlying malignancy. Will switch to meropenem and will cont. to monitor Update: Pt wishes to go home with hospice today. Pt was seen and goals of care were discussed w/ palliative medicine physician Dr. Wang. Will DC on home hospice on po abx. Laryngeal ca s/p laryngectomy and neck dissection, aphasia Subtotal thyroidectomy s/p radiation on Keytruda Dietitian consulted Aspiration precautions JAIME CPAP HS Other chronic conditions: Hypothyroidism, HLD, COPD CAD s/p CABG, SSS s/p PPM PAF, TIA s/p CEA, htn, AF HFpEF, GERD, JOHNSON, CHRISTIE, MDD Continue home medications as able: Resume Plavix, Eliquis once cleared by GI Acute on chronic chronic Normocytic anemia Management as above CODE STATUS - DNR / DNI - palliative medicine consulted - plan to DC w/ home hospice Disposition - home w/ Home hospice Total Time Total Time Spent Total Time Spent (In Minutes): 60 Discharge Plan Discharge Items Patient Disposition: Hospice - Home Reason For Visit: URINARY RETENTION Discharge Diagnosis: Stercoral colitis, severe constipation Urinary retention Hx of stage IV laryngeal cancer Condition on Discharge: Fair Activity: Per Instructions section Non-emergency contact: Primary Care Provider and Specialist Call non-emergency contact if: you have any medication questions and your symptoms worsen Follow-up/Referrals: Neto Rasheed MD [Primary Care Provider] - Diet: Regular Diet Texture: Dental soft (bite-sized) Addtl Attending Provider Instructions: Follow up with your primary care physician and hospice. Discuss with hospice provider which medications are still reasonable and which to stop. Continue using miralax daily or twice a day. Make sure to have a bowel movement every day or every other day. Finish antibiotic course as prescribed. Discussed with Dr. Wang (palliative medicine cardiology clinical consultant) and further medications were prescribed for your comfort - oxycodone (for pain), ativan (for anxiety or shortness of breath), zofran (for nausea) , mirtazapine (to help with appetite) - use them as needed and discuss them furtehr with your hospice provider. Pending Studies at Discharge: Yes Studies:: final blood cultx results Stand-Alone Forms: My [facility] Medications and DC Order Prescriptions: New mirtazapine 15 mg Tablet 7.5 mg PO HS Qty: 30 0RF oxycodone 5 mg Tablet 5 mg PO Q4 PRN (Reason: pain) Qty: 14 0RF lorazepam [Ativan] 0.5 mg tablet 0.5 mg PO Q8H PRN (Reason: anxiety) Qty: 14 0RF polyethylene glycol 3350 [Miralax] 17 gram/dose powder 17 g PO DAILY PRN (Reason: constipation) Qty: 119 0RF bisacodyl 10 mg suppository 10 mg [place] DAILY PRN (Reason: constipation) Qty: 12 0RF ondansetron 4 mg tablet,disintegrating 4 mg PO HS PRN (Reason: nausea and vomiting) 3 Days Qty: 14 0RF amoxicillin-pot clavulanate 875-125 mg tablet 1 tab PO BID 7 Days Qty: 14 0RF levofloxacin 750 mg tablet 750 mg PO DAILY 7 Days Qty: 7 0RF Continued levothyroxine 125 mcg tablet 125 mcg PO DAILYBB Eliquis 5 mg tablet 5 mg PO AMHS olanzapine 2.5 mg tablet 2.5 mg PO HS diphenoxylate-atropine 2.5-0.025 mg tablet 1 tab PO QID PRN (Reason: Diarrhea) pantoprazole 40 mg Tablet,Delayed Release (Dr/Ec) 40 mg PO DAILY clopidogrel 75 mg tablet 75 mg PO DAILY metoprolol succinate 25 mg tablet extended release 24 hr 25 mg PO DAILY bisacodyl [Dulcolax (bisacodyl)] 10 mg Suppository 10 mg [place] DAILY PRN (Reason: Constipation) Rx Instructions: Insert 1 unit rectally as needed for constipation give suppository day 3; 3- 11 shift if no BM after MOM menthol-zinc oxide 0.44-20.6 % Ointment 1 applic TOPICAL TID Rx Instructions: Apply to buttocks topically every shift for wound care Discontinued nitroglycerin 0.4 mg tablet, sublingual 1 tab Sublingual DIRECTED PRN (Reason: Chest Pain) Patient Comments: Never had to use mirtazapine 15 mg Tablet 15 mg PO HS acetaminophen [Tylenol] 325 mg Tablet 650 mg PO Q6H PRN (Reason: Fever/Pain) magnesium hydroxide [Milk of Magnesia] 400 mg/5 mL Suspension 2,400 mg PO DAILY PRN (Reason: Constipation) Rx Instructions: Give 30ml by mouth as needed for constipation after no BM for three days admin MOM on 7-3 shift Fleet Enema 19-7 gram/118 mL Enema 118 ml [place] DAILY PRN (Reason: Constipation) Rx Instructions: Insert 1 unit rectally as needed for constipation if no BM after dulcolax admin fleets on 3 shift, day four. cyclobenzaprine 5 mg Tablet 5 mg PO Q8H PRN (Reason: Muscle Spasms) Discharge Orders: Discharge Order (Routine); Ordered 09/19/24 Ordered By: Ramakrishna aLm Admission Data Admit Date/Time: 09/10/24 14:49 Attending Provider: Ramakrishna Lam Admit Provider: Se Berry Primary Care Provider: Neto Rasheed Other Providers: Se Berry; Omayra Loyola; Martin Maciel; Mary Grace Howard; Melvi Tolliver; Mitzi Quezada; Brenda Haines; Liborio Mccallum; Clau Montalvo; Parul Multani; Giovani Brady; Homa De La Cruz; Krissy Blum; Neeta Ashley; Obdulia Gr; Lina Ng; Tonio Rowe; Erick Yu; Lucy Sheth; Adriel Jimenez Jr; Jordan Lao; Blake Vargas; Zoran Cesar; Royce Garcia; Kristen Ramirez; Shree Sheridan I; Aleyda Gilbert; Artis Ahumada; Neil Lowe; [facility]; Leonardo Cruz; Florencio Lucero; Brian Dasilva; Brandyn Stone I.; Wilfredo Damon II; Luly Mobley; Wilman Burks; Clinton Jim; Adria Rawls; Emily He; Nohemy Tapia; Yoshi Wang
[2024-09-19 16:20] VITALS: PULSE 65
== END 2024-09-19 17:06 | disposition hospice, home (50) ==
LOC: ED 11:21 → EDINP 14:49 → SUATTDRO 14:49 → 2S 16:45